=== PATIENT | female | born 1940 | race Caucasian/White ===

== ENCOUNTER 2023-03-12 13:06 | Outpatient (OUT) | payer MEDICARE, OTHER, SELFPAY ==
--- NOTE | 2023-03-12 13:36 | XR_ITS ---
The [address] [address] Patient Name: ANGY BETTS MRN: [id number] date: 1940 Sex: F Assigned Patient Location: LAB Current Patient Location: LAB Accession/Order Number: [id number] Exam Date: 03/12/2023 13:40 Report Date: 03/12/2023 13:57 At the request of: JEFFREY OBRIEN Procedure: XR chest 2V EXAM: XR chest 2V HISTORY: Acute pneumonia J18.9 COMPARISON: None. TECHNIQUE: PA and lateral views of the chest. FINDINGS: The cardiomediastinal silhouette is normal. Lingula airspace disease. There is no pneumothorax. No pleural effusion is noted. The osseous structures are intact. IMPRESSION: Lingula airspace disease. Electronically authenticated by: SUKHJINDER NEWBERRY Date: 03/12/2023 13:57
[2023-03-12 13:43] LABS: Basophils Percent Auto 0.5 % (0.2-2.0); Eosinophils Absolute Auto 0.2 10^3/uL (0.0-0.7); Eosinophils Percent Auto 4.3 % (0.9-7.0); Hematocrit 36.5 % (36.0-48.0); Hemoglobin 11.8 g/dL (12.0-16.0); Immature Granulocytes Abs Auto 0.03 10^3/uL (0.00-0.03); Immature Granulocytes Pct Auto 0.7 % (0.0-0.5); Lymphocytes Absolute Auto 1.3 10^3/uL (1.2-3.8); Lymphocytes Percent Auto 31.6 % (20.5-60.0); Mean Corpuscular HGB Conc 32.3 g/dL (29.9-35.2); Mean Corpuscular Hemoglobin 29.8 pg (26.7-34.0); Mean Corpuscular Volume 92.2 fL (81.0-99.0); Mean Platelet Volume 10.7 fL (9.5-13.5); Monocytes Absolute Auto 0.3 10^3/uL (0.3-0.8); Monocytes Percent Auto 7.2 % (1.7-12.0); Neutrophils Absolute Auto 2.3 10^3/uL (1.4-6.5); Neutrophils Percent Auto 55.7 % (43.0-75.0); Platelet Count 192 10^3/uL (150-450); Red Blood Count 3.96 10^6/uL (4.20-5.40); Red Cell Distribution Width 12.9 % (11.0-15.0); White Blood Count 4.2 10^3/uL (4.0-11.0)
[2023-03-12 14:02] LABS: Anion Gap 12.8; BUN Creatinine Ratio 14.4; Carbon Dioxide 28.8 mmol/L (21.0-32.0); Chloride 104 mmol/L (98-107); Estimated GFR (African America 50 (>=60); Estimated GFR (Non-African Ame 41 (>=60); Glucose 96 mg/dL (74-106); Potassium 4.6 mmol/L (3.5-5.1); Sodium 141 mmol/L (136-145)
[2023-03-13 03:07] LABS: Vitamin B12 194 pg/mL (232-1245)
== END 2023-03-12 13:07 | disposition home or self-care (01) ==
LOC: LAB 13:18
PROVIDERS: PCP Internal Medicine; Visit Provider Internal Medicine
DX: D64.9 Anemia, unspecified (principal); N18.31 Chronic kidney disease, stage 3a; J18.9 Pneumonia, unspecified organism
CPT/HCPCS: 36415; 71046; 80048; 82607; 82746; 85025

== ENCOUNTER 2023-05-28 10:18 | Outpatient (OUT) | payer MEDICARE, OTHER, SELFPAY ==
[2023-05-28 11:46] LABS: Anion Gap 9.5; Calcium 9.3 mg/dL (8.5-10.1); Carbon Dioxide 29.6 mmol/L (21.0-32.0); Chloride 100 mmol/L (98-107); Chol HDL Ratio 2.6; Cholesterol 167 mg/dL (<=200); Estimated GFR (African America 56 (>=60); Estimated GFR (Non-African Ame 46 (>=60); Glucose 92 mg/dL (74-106); HDL Cholesterol 65 mg/dL (40-60); Potassium 4.1 mmol/L (3.5-5.1); Sodium 135 mmol/L (136-145); Thyroid Stimulating Hormone 2.005 uIU/mL (0.358-3.740); Triglycerides 75 mg/dL (<=150)
== END 2023-05-28 10:19 | disposition home or self-care (01) ==
LOC: LAB 10:21
PROVIDERS: PCP Internal Medicine; Visit Provider Internal Medicine
DX: I10 Essential (primary) hypertension (principal); E78.1 Pure hyperglyceridemia; D64.9 Anemia, unspecified; R53.83 Other fatigue
CPT/HCPCS: 36415; 80048; 80061; 82607; 82728; 82746; 84443

== ENCOUNTER 2023-06-02 09:29 | Outpatient (OUT) | payer MEDICARE, OTHER, SELFPAY ==
[2023-06-02 10:09] LABS: Basophils Percent Auto 0.8 % (0.2-2.0); Eosinophils Absolute Auto 0.2 10^3/uL (0.0-0.7); Eosinophils Percent Auto 5.1 % (0.9-7.0); Hematocrit 35.4 % (36.0-48.0); Hemoglobin 11.3 g/dL (12.0-16.0); Immature Granulocytes Abs Auto 0.03 10^3/uL (0.00-0.03); Immature Granulocytes Pct Auto 0.8 % (0.0-0.5); Lymphocytes Absolute Auto 1.1 10^3/uL (1.2-3.8); Lymphocytes Percent Auto 31.4 % (20.5-60.0); Mean Corpuscular HGB Conc 31.9 g/dL (29.9-35.2); Mean Corpuscular Hemoglobin 30.3 pg (26.7-34.0); Mean Corpuscular Volume 94.9 fL (81.0-99.0); Mean Platelet Volume 10.7 fL (9.5-13.5); Monocytes Absolute Auto 0.3 10^3/uL (0.3-0.8); Monocytes Percent Auto 7.6 % (1.7-12.0); Neutrophils Absolute Auto 1.9 10^3/uL (1.4-6.5); Neutrophils Percent Auto 54.3 % (43.0-75.0); Platelet Count 188 10^3/uL (150-450); Red Blood Count 3.73 10^6/uL (4.20-5.40); Red Cell Distribution Width 13.5 % (11.0-15.0); White Blood Count 3.5 10^3/uL (4.0-11.0)
== END 2023-06-02 09:30 | disposition home or self-care (01) ==
LOC: LAB 09:33
PROVIDERS: PCP Internal Medicine; Visit Provider Internal Medicine
DX: D64.9 Anemia, unspecified (principal); R53.83 Other fatigue
CPT/HCPCS: 36415; 85025

== ENCOUNTER 2023-08-26 15:49 | Outpatient (REF) | payer MEDICARE, OTHER, SELFPAY ==
[2023-08-26 16:09] LABS: SARS-CoV-2 Ag NEGATIVE (NEGATIVE)
--- OUTSIDE RECORDS SUMMARY | 2023-08-27 10:05 | XMS_ITS | CCD ---
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 Name Role Phone Doni Rivera Unavailable DO Kyle Gottlieb Primary Care Provider DO Aamir Xavier Attending Provider [phone] DO Aamir Xavier Referring Provider Kyle Gottlieb Unavailable BULL, DR MURPHY Primary Care Unavailable BULL, DR MURPHY Attending Unavailable BULL, DR MURPHY Consulting Unavailable BULL, DR MURPHY Admitting Unavailable BULL, DR MURPHY Attending Unavailable BULL, DR MURPHY Consulting Unavailable BULL, DR MURPHY Primary Care Unavailable BULL, DR MUPRHY Admitting Unavailable KIARA, DR BUCKY Florez Consulting Unavailable BULL, DR MURPHY Admitting Unavailable BULL, DR MURPHY Attending Unavailable BULL, DR MURPHY Consulting Unavailable BULL, DR MURPHY Primary Care Unavailable ALDO, NANDO Consulting Unavailable BULL, DR MURPHY Attending Unavailable BULL, DR MURPHY Primary Care Unavailable BULL, DR MURPHY Admitting Unavailable HOY ., DR MATTHEWS Consulting Unavailable NADEREVikki, DR ANA MARIA Lambert Admitting Unavailable NADEREVikki, DR ANA MARIA Lambert Attending Unavailable BULL, DR MURPHY Primary Care Unavailable ZIEBER, DR BUCKY Florez Consulting Unavailable NADERER, DR ANA MARIA Lambert Consulting Unavailable KATKO, CARLOS Acosta Consulting Unavailable JAE, MOY Consulting Unavailable SISTER, MARGOT Consulting Unavailable HEGG, RAKESH Consulting Unavailable RASTEGAR, KELVIN Consulting Unavailable BULL, DR MURPHY Admitting Unavailable BULL, DR MURPHY Attending Unavailable BULL, DR MURPHY Consulting Unavailable BULL, DR MURPHY Primary Care Unavailable ALDO, NANDO Consulting Unavailable DO Kyle Gottlieb Primary Care Provider DO Aamir Xavier Attending Provider [phone] Kyle Gottlieb Primary Care Unavailable Aamir Xavier Attending Unavailable Aaimr Xavier Admitting Unavailable SHIVAM METZ Attending Unavailable Tonya Harrison Unavailable Allergies Allergy Classification Reported Allergen(s) Allergy Type Date of Onset Reaction(s) Facility (20 sources) Amoxicillin Drug Allergy 11-29-19 Unknown, [facility] (20 sources) Clarithromycin Drug Allergy 11-29-19 Unknown, [facility] (20 sources) Naproxen Drug Allergy 11-29-19 Unknown, Difficulty Breathing [facility] (20 sources) Sulfamethoxazole / Trimethoprim Drug Allergy Unknown [email or web address] Other (20 sources) LEVOFLAXIN Propensity to adverse reactions Unknown [email or web address] Other (6 sources) Sulfamethoxazole / Trimethoprim; Translations: [Bactrim] Drug Allergy 11-19-19 14 Unknown [facility] (4 sources) levoFLOXacin; Translations: [Levofloxacin] Drug Allergy 11-29-19 [facility] (3 sources) Sulfamethoxazole; Translations: [sulfamethoxazole] Drug Allergy 11-29-19 [facility] (3 sources) Trimethoprim; Translations: [trimethoprim] Drug Allergy 11-29-19 [facility] (1 source) Amoxicillin Drug Allergy [facility] (1 source) Clarithromycin Drug Allergy [facility] (1 source) Naproxen Drug Allergy 11-19-19 14 [facility] (12 sources) Baclofen Drug Allergy Unknown [employer] Other (12 sources) levoFLOXacin Drug Allergy Unknown [email or web address] Other (12 sources) Penicillin Drug Allergy Unknown [email or web address] Other (12 sources) predniSONE Drug Allergy Unknown [employer] Other (12 sources) Biaxin XL *MACROLIDES* Propensity to adverse reactions Unknown [employer] Other (2 sources) Allergies Reconciled Propensity to adverse reactions Unknown [email or web address] Other (2 sources) patient allergy list reviewed by nurse or physicia Propensity to adverse reactions 09-10-19 16 Comment:Done [facility] Other (12 sources) corticosteroid and/or corticosteroid derivative (FN) Drug allergy Unknown [facility] Other (12 sources) Substance with sulfonamide structure and antibacterial mechanism of action (substance) Drug allergy Unknown [facility] Other (12 sources) Substance with penicillin structure and antibacterial mechanism of action (substance) Drug allergy Unknown [facility] Other (1 source) Amoxicillin Drug Allergy 11-29-19 [facility] (1 source) Clarithromycin Drug Allergy 11-29-19 [facility] (1 source) Naproxen Drug Allergy 11-29-19 [facility] Medications Current Medications Medication Drug Class(es) Dates Sig (Normalized) Sig (Original) benazepril hydrochloride 5 mg oral tablet (20 sources) Angiotensin Converting Enzyme Inhibitor Start: 11-28-2021 take 5 mg by mouth once daily Benazepril Active 5 MG PO Daily November 28, 2021 12:00am Benazepril HCl A ctive bisoprolol fumarate 2.5 mg / hydroCHLOROthiazide 6.25 mg oral tablet (7 sources) Thiazide Diuretic, beta-Adrenergic Daniel take 1 tablet by mouth every twenty-four hours Bisoprolol-hydroCHLOROthiazide 2.5-6.25 MG 1 tablet Orally Once a day Active calcium carbonate 1500 mg / cholecalciferol 200 unt oral tablet (20 sources) Vitamin D take 1 tablet by mouth once daily at mealtime take 1 tablet by shil[place] th every twenty-four hours Calcium + D 600-200 MG-UNIT 1 tablet wit h food Orally Once a day for 30 day(s) Active cefdinir 300 mg oral capsule (20 sources) Cephalosporin Antibacterial Start: 12-14-2022 Cefdinir 300 MG as directed Orally bid Dec, Active cetirizine hydrochloride 10 mg oral tablet (20 sources) Histamine-1 Receptor Antagonist Start: 11-28-2021 take 1 tablet by mouth once daily Cetirizine (Zyrtec) 10 mg tablet Active 10 MG PO Daily November 28, 2021 12:00am dicyclomine hydrochloride 20 mg oral tablet (20 sources) Anticholinergic take 1 tablet by mouth every six hours Dicyclomine HCl 20 MG 1 tablet Orally QID Active estrogens, conjugated (senior care) 0.625 mg/ml vaginal cream (20 sources) Estrogen Start: 11-28-2021 Conjugated Estrogens (Premarin) 0.625 mg/gram cream Active 1 APPLIC TOPICAL As Directed November 28, 2021 12:00am Premarin 0.625 M G/GM as directed Vaginal Active Premarin 0.625 M G/GM as directed Vaginal Active fenofibrate 160 mg oral tablet (20 sources) Peroxisome Proliferator Receptor alpha Agonist Start: 11-28-2021 take 160 mg by mouth once daily Fenofibrate Active 160 MG PO Daily November 28, 2021 12:00am Fish Oils (20 sources) take 1 capsule by mouth three ti mes daily take 1 capsule by mouth three ti mes daily Fish Oil 1200 MG 1 capsule Orally Three times a day for 30 day(s) Active folic acid 1 mg oral tablet (20 sources) Start: 01-09-2023 take 1 tablet by mouth every twenty-four hours Folic Acid 1 MG 1 tablet Orally Once a day January, Active furosemide 40 mg oral tablet (1 source) Loop Diuretic Start: 12-17-2022 take 1 tablet by mouth every twenty-four hours Furosemide 40 MG 1 tablet Orally Once a day for 7 days Dec, Active gabapentin 300 mg oral capsule (20 sources) Anti-epileptic Agent Start: 05-27-2023 take 1 capsule by mouth every twenty-four hours Gabapentin 300 MG 1 capsule Orally Once a day for 90 days May, Active Start: 11-28-2021 take 1 capsule by [facility] once daily at bedtime Gabapentin (Neurontin) 300 mg Capsule Active 300 MG PO Daily at bedtime November 28, 2021 12:00am take 1 capsule by [facility] every eight hours Neurontin 300 MG 1 capsule Orally Three times a day Active hydrocortisone acetate 25 mg rectal suppository (20 sources) Corticosteroid Start: 11-28-2021 Hydrocortisone Acetate Active 25 MG OR Daily November 28, 2021 12:00am Proctozone-HC 2. 5 % APPLY TOPICALLY 2 TO 4 TIMES DAILY for 90 Active Anucort-HC 25 MG 1 suppository Rectal Active Proctosol HC 2.5 % 1 application to affected area Rectal Twice a day for 30 days Active Anucort-HC Activ e Hydrocortisone (Proctosol Hc) 2.5 % Cream With Applicator (2 sources) Start: 11-28-2021 Hydrocortisone (Proctosol Hc) 2.5 % Cream With Applicator Active 1 EACH OR Daily November 28, 2021 12:00am Goltry 1-Sqe-Qaj-Fish Oil (Fish Oil) 1,200 (144-216) mg Capsule (2 sources) Start: 11-28-2021 take 2 capsules by mouth at bedtime Goltry 6-Fph-Uki-Fish Oil (Fish Oil) 1,200 (144-216) mg Capsule Active 2 CAP PO Bedtime November 28, 2021 12:00am OXcarbazepine 300 mg oral tablet (20 sources) Anti-epilept ic Agent Start: 11-17-2022 take 1 tablet by mouth once at bedtime OXcarbazepine 300 MG 1 tablet Orally q HS Nov, Active Start: 11-28-2021 take 1 tablet by [place] th at bedtime Oxcarbazepine (Trileptal) 300 mg Tablet Active 300 MG PO Bedtime November 28, 2021 12:00am pantoprazole 40 mg delayed release oral tablet (20 sources) Proton Pump Inhibitor Start: 12-28-2020 Pantoprazole Sodium 40 MG 1 tablet TWICE A DAY Orally TWICE A DAY for 90 days Jun, Active Stool Softener (20 sources) Stool Softener A ctive tiZANidine 4 mg oral tablet (20 sources) Central alpha-2 Adrenergic Agonist Start: 11-28-2021 Tizanidine (Zanaflex ) 4 mg Tablet Active 2 MG PO Bedtime November 28, 2021 12:00am take 1 tablet by mouth every eig ht hours Zanaflex 4 MG 1 tablet as needed Orally every 8 hrs Active Completed/Discontinued Medications Medication Drug Class(es) Dates Sig (Normalized) Sig (Original) B-12 - up to 1000 mcg (20 sources) Start: 08-13-2023 B-12 - up to 1000 mcg Aug, 1000 mcg Start: 07-09-2023 B-12 - up to 1 000 mcg Jul, 1000 mcg Start: 06-08-2023 B-12 - up to 1 000 mcg Jun, 1000 mcg Start: 05-07-2023 B-12 - up to 1 000 mcg Apr, 1000 mcg Start: 04-06-2023 B-12 - up to 1 000 mcg Mar, 1000 mcg Start: 03-30-2023 B-12 - up to 1 000 mcg Mar, 1000 mcg Start: 03-23-2023 B-12 - up to 1 000 mcg Mar, 1000 mcg Start: 03-23-2023 Start: 03-16-2023 Start: 03-16-2023 B-12 - up to 1 000 mcg Mar, 1000 mcg Problems Active Problems Problem Classification Problem Date Documented Da te Episodic/Chronic Abdominal pain (20 sources) Abdominal pain; Translations: [Unspecified abdominal pain] Onset: 4 Resolved: 2 Episodic Acute and unspecified renal failure (1 source) Acute kidney failure, unspecified; Translations: [ACUTE KIDNEY FAILURE UNSPECIFIED] Onset: 3 Episodic Acute bronchitis (4 sources) Acute bronchitis; Translations: [Acute bronchitis due to other specified organisms] Onset: 4 Episodic Anxiety disorders (2 sources) Generalized anxiety disorder; Translations: [Generalized anxiety disorder] Chronic Cardiac dysrhythmias (2 sources) Palpitations; Translations: [Bradycardia, unspecified] Episodic Chronic kidney disease (20 sources) Chronic kidney disease stage 3A ; Translations: [Stage 3a chronic kidney disease] Chronic Chronic obstructive pulmonary disease and bronchiectasis (13 sources) Mucopurulent chronic bronchitis; Translations: [Mucopurulent chronic bronchitis] Chronic Deficiency and other anemia (10 sources) Anemia, unspecified; Translations: [ANEMIA UNSPECIFIED] Onset: 3 Episodic Deficiency and other anemia (1 source) Iron deficiency anemia, unspecified; Translations: [IRON DEFICIENCY ANEMIA UNSPECIFIED] Onset: 3 Episodic Deficiency and other anemia (1 source) Dietary folate deficiency anemia Episodic Deficiency and other anemia (20 sources) Pernicious anemia; Translations: [Vitamin B12 deficiency anemia due to intrinsic factor deficiency] Episodic Deficiency and other anemia (10 sources) Vitamin B12 deficiency anemia due to intrinsic factor deficiency; Translations: [Pernicious anemia] Episodic Disorders of lipid metabolism (20 sources) Hypertriglyceridemia; Translations: [Pure hyperglyceridemia] Onset: 8 Chronic Diverticulosis and diverticulitis (20 sources) Diverticular disease of colon; Translations: [Diverticulosis of intestine, part unspecified, without perforation or abscess without bleeding] Chronic Esophageal disorders (20 sources) Gastroesophageal reflux disease; Translations: [Gastro-esophageal reflux disease without esophagitis] Onset: 2 Resolved: 2 Chronic Essential hypertension (20 sources) Essential hypertension; Translations: [Essential (primary) hypertension] Onset: 2 Chronic Fever of unknown origin (1 source) Fever, unspecified; Translations: [FEVER UNSPECIFIED] Onset: 3 Episodic Fluid and electrolyte disorders (20 sources) Hypokalemia; Translations: [Hypokalemia] Onset: 3 Episodic Hemorrhoids (20 sources) Hemorrhoids; Translations: [Unspecified hemorrhoids] Episodic Hypertension with complications and secondary hypertension (20 sources) Chronic kidney disease due to hypertension; Translations: [Hypertensive chronic kidney disease with stage 1 through stage 4 chronic kidney disease, or unspecified chronic kidney disease] Chronic Immunizations and screening for infectious disease (4 sources) Contact with and (suspected) exposure to other viral communicable diseases; Translations: [Vaccination given] Episodic Intestinal infection (1 source) Viral intestinal infection, unspecified; Translations: [VIRAL INTESTINAL INFECTION UNSPEC] Onset: 3 Episodic Malaise and fatigue (20 sources) Malaise; Translations: [Other malaise] Onset: 8 Episodic Mood disorders (20 sources) Mild recurrent major depression; Translations: [Major depressive disorder, recurrent, mild] Onset: 9 Chronic Multiple sclerosis (20 sources) Multiple sclerosis; Translations: [Multiple sclerosis] Onset: 3 Chronic Nausea and vomiting (20 sources) Nausea and vomiting; Translations: [Nausea with vomiting, unspecified] Onset: 4 Resolved: 2 Episodic Nutritional deficiencies (1 source) Moderate protein-calorie malnutrition; Translations: [MODERATE PROTEIN-CALORIE MLNUTRIT] Onset: 3 Chronic Nutritional deficiencies (1 source) Deficiency of other specified B group vitamins Episodic Osteoarthritis (2 sources) Osteoarthritis; Translations: [Polyosteoarthritis, unspecified] Chronic Other aftercare (1 source) Other correction (current) drug therapy; Translations: [OTH BIOINFORMATICS COMPUTER SCIENTIST CURRENT DRUG THERAPY] Onset: 3 Episodic Other aftercare (2 sources) Long-term current use of drug therapy; Translations: [Other tank terminal gauger (current) drug therapy] Episodic Other and unspecified benign neoplasm (2 sources) Benign neoplasm of colon; Translations: [Benign neoplasm of colon] Episodic Other and unspecified benign neoplasm (2 sources) Polyp of colon; Translations: [Polyp of colon] Episodic Other bone disease and musculoskeletal deformities (2 sources) Disorder of bone; Translations: [Disorder of bone, unspecified] Episodic Other congenital anomalies (2 sources) Congenital spondylolysis of lumbosacral region; Translations: [Congenital spondylolysis, lumbosacral region] Onset: 6 Chronic Other connective tissue disease (20 sources) Fibromyalgia; Translations: [Fibromyalgia] Episodic Other connective tissue disease (2 sources) Fibromyalgia Episodic Other diseases of kidney and ureters (2 sources) Disorder of kidney and/or ureter; Translations: [Other specified disorders of kidney and ureter] Chronic Other diseases of veins and lymphatics (13 sources) Peripheral venous insufficiency; Translations: [Venous insufficiency (chronic) (peripheral)] Onset: 4 Episodic Other diseases of veins and lymphatics (2 sources) Venous insufficiency (chronic) (peripheral); Translations: [Venous insufficiency (chronic) (peripheral)] Episodic Other ear and sense organ disorders (2 sources) Infective otitis externa; Translations: [Other infective otitis externa, right ear] Episodic Other gastrointestinal disorders (20 sources) Irritable bowel syndrome; Translations: [Irritable bowel syndrome without diarrhea] Chronic Other gastrointestinal disorders (2 sources) Irritable bowel syndrome without diarrhea Chronic Other gastrointestinal disorders (2 sources) Irritable bowel syndrome with diarrhea; Translations: [Irritable bowel syndrome with diarrhea] Chronic Other gastrointestinal disorders (20 sources) Diarrhea; Translations: [Diarrhea, unspecified] Onset: 7 Episodic Other gastrointestinal disorders (3 sources) Diarrhea, unspecified; Translations: [Diarrhea] Onset: 2 Resolved: 2 Episodic Other injuries and conditions due to external causes (2 sources) History of fall; Translations: [History of falling] Episodic Other lower respiratory disease (1 source) Acute respiratory distress; Translations: [ACUTE RESPIRATORY DISTRESS] Onset: 3 Episodic Other lower respiratory disease (1 source) Other nonspecific abnormal finding of lung field Episodic Other non-traumatic joint disorders (2 sources) Pain in right hip joint; Translations: [Pain in right hip] Episodic Other nutritional; endocrine; and metabolic disorders (20 sources) Loss of appetite; Translations: [Anorexia] Onset: 5 Episodic Other nutritional; endocrine; and metabolic disorders (2 sources) Anorexia Onset: 2 Resolved: 2 Episodic Other nutritional; endocrine; and metabolic disorders (1 source) Body mass index (BMI) 25.0-25.9, adult; Translations: [BODY MASS INDEX BMI 25.0-25.9 ADULT] Onset: 3 Episodic Other nutritional; endocrine; and metabolic disorders (2 sources) Overweight; Translations: [Overweight] Episodic Other upper respiratory disease (20 sources) Seasonal allergic rhinitis; Translations: [Other seasonal allergic rhinitis] Onset: 7 Chronic Other upper respiratory disease (2 sources) Other seasonal allergic rhinitis; Translations: [Seasonal allergic rhinitis] Chronic Other upper respiratory infections (6 sources) Acute sinusitis; Translations: [Acute sinusitis, unspecified] Onset: 4 Episodic Pneumonia (except that caused by tuberculosis or sexually transmitted disease) (5 sources) Pneumonia, unspecified organism; Translations: [PNEUMONIA UNSPECIFIED ORGANISM] Onset: 3 Episodic Residual codes; unclassified (20 sources) Early satiety; Translations: [Early satiety] Episodic Residual codes; unclassified (2 sources) Early satiety Onset: 2 Resolved: 2 Episodic Residual codes; unclassified (2 sources) Generalized edema Episodic Residual codes; unclassified (2 sources) Requires influenza virus vaccination; Translations: [Need for prophylactic vaccination and inoculation, Influenza] Episodic Residual codes; unclassified (2 sources) Postmenopausal state; Translations: [Asymptomatic menopausal state] Episodic Spondylosis; intervertebral disc disorders; other back problems (20 sources) Lumbar spondylosis; Translations: [Spondylosis without myelopathy or radiculopathy, lumbar region] Onset: 2 Chronic Spondylosis; intervertebral disc disorders; other back problems (2 sources) Low back pain; Translations: [Low back pain, unspecified] Episodic Substance-related disorders (13 sources) Tobacco user; Translations: [Nicotine dependence, cigarettes, in remission] Chronic Superficial injury; contusion (4 sources) Contusion of hip; Translations: [Contusion of left hip, initial encounter] Resolved: 1 Episodic Unclassified (3 sources) LOW BACK PAIN, UNSPECIFIED; Translations: [LOW BACK PAIN, UNSPECIFIED] Onset: 2 Unclassified (2 sources) Long-term current use of drug therapy; Translations: [Long-term (current) use of other medications] Onset: 9 Unclassified (1 source) Encounter for screening mammogram for malignant neoplasm of breast; Translations: [Encounter for screening mammogram for malignant neoplasm of breast] Onset: 3 Urinary tract infections (20 sources) Cystitis; Translations: [Cystitis, unspecified without hematuria] Episodic Past or Other Problems Problem Classification Problem Date Documented Da te Episodic/Chronic Abdominal hernia (2 sources) Diaphragmatic hernia; Translations: [Diaphragmatic hernia without mention of obstruction or gangrene] Onset: 09-14-2014 Episodic Acute posthemorrhagic anemia (2 sources) Acute posthemorrhagic anemia; Translations: [Acute posthemorrhagic anemia] Resolved: 01-02-2020 Episodic Bacterial infection; unspecified site (2 sources) Bacterial infectious disease; Translations: [Bacterial infection, unspecified, in conditions classified elsewhere and of unspecified site] Onset: 11-30-2015 Episodic Chronic kidney disease (8 sources) Chronic kidney disease; Translations: [CHRONIC KIDNEY DISEASE STAGE 3A] Onset: 02-04-2023 Conditions associated with dizziness or vertigo (2 sources) Dizziness and giddiness; Translations: [Dizziness and giddiness] Onset: 07-17-2014 Episodic Esophageal disorders (6 sources) Esophageal disorders; Translations: [Gastro-esophageal reflux disease with esophagitis, without bleeding] Gastritis and duodenitis (2 sources) Acute gastritis; Translations: [Acute gastritis without mention of hemorrhage] Onset: 09-14-2014 Episodic Gastrointestinal hemorrhage (2 sources) Hemorrhage of rectum and anus; Translations: [Hemorrhage of rectum and anus] Onset: 09-13-2018 Episodic Genitourinary symptoms and ill-defined conditions (2 sources) Dysuria; Translations: [Dysuria] Onset: 01-11-2019 Episodic Inflammation; infection of eye (except that caused by tuberculosis or sexually transmitteddisease) (2 sources) Blepharitis; Translations: [Blepharitis, unspecified] Onset: 10-12-2015 Episodic Noninfectious gastroenteritis (2 sources) Non-infective enteritis and colitis; Translations: [Noninfective gastroenteritis and colitis, unspecified] Onset: 11-18-2013 Episodic Nonspecific chest pain (2 sources) Chest pain; Translations: [Chest pain, unspecified] Onset: 03-08-2015 Episodic Other connective tissue disease (2 sources) Pain in left lower limb; Translations: [Pain in left leg] Onset: 03-31-2016 Episodic Other gastrointestinal disorders (2 sources) 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; Translations: [Irritable bowel syndrome with constipation] Resolved: 11-30-2020 Chronic Other lower respiratory disease (2 sources) Dyspnea; Translations: [Dyspnea, unspecified] Onset: 03-08-2015 Episodic Other screening for suspected conditions (not mental disorders or infectious disease) (5 sources) Other specified abnormal findings of blood chemistry; Translations: [Imaging of abdomen abnormal] Onset: 03-19-2019 Resolved: 11-30-2020 Episodic Other skin disorders (2 sources) Generalized hyperhidrosis; Translations: [Generalized hyperhidrosis] Onset: 03-22-2018 Episodic Residual codes; unclassified (4 sources) Asymptomatic menopausal state; Translations: [ASYMPTOMATIC MENOPAUSAL STATE] Onset: 08-25-2022 Episodic Residual codes; unclassified (2 sources) Symptom: generalized; Translations: [Other general symptoms and signs] Resolved: 01-02-2020 Episodic Screening and history of mental health and substance abuse codes (3 sources) Personal history of nicotine dependence; Translations: [History of tobacco use] Onset: 10-23-2016 Episodic Sprains and strains (2 sources) Lumbar sprain; Translations: [Sprain of other parts of lumbar spine and pelvis, initial encounter] Onset: 12-27-2018 Episodic Unclassified (1 source) LOW BACK PAIN, UNSPECIFIED; Translations: [LOW BACK PAIN, UNSPECIFIED] Onset: 04-28-2022 Unclassified (2 sources) Acute candidiasis of vulva and vagina; Translations: [Acute candidiasis of vulva and vagina] Resolved: 11-13-2021 Viral infection (2 sources) Viral disease; Translations: [Unspecified viral infection, in conditions classified elsewhere and of unspecified site] Onset: 10-23-2016 Episodic Results Test Name Value Interpretation Reference Range Facility MM screening mammo BI w/CADo n 05-13-2023 MM screening mammo BI w/CAD [facility] [place] [address] [place] [address] Mammography Report Signed Patient: Gina Pierre MR#: [id number] : 1940 Acct:[id number] Age/Sex: 82 / F ADM Date: 05/13/23 Loc: [place] Room: Type: [facility] CLI Attending Dr: Aamir Xavier DO Copies to: Kyle Gottlieb,DO Aamir Xavier DO Ordering Provider: Aamir Xavier DO Date of Service: 05/13/23 MM/MM screening mammo BI w/CAD: SCREENING CLINICAL DATA: Screening for malignancy. BILATERAL SCREENING MAMMOGRAMS - FULL FIELD DIGITAL WITH TOMOSYNTHESIS AND CAD Tomosynthesis craniocaudal and mediolateral oblique views of both breasts were obtained using low- dose digital technique. Comparison is made to prior studies from April 08, 2019 through April 14, 2022. This examination was reviewed with the aid of CAD. There are scattered fibroglandular densities. Benign and vascular calcifications are seen. There are intramammary lymph nodes. There are no new suspicious masses, typically malignant calcifications or architectural distortion. There has been no significant interval change. MM/MM screening mammo BI w/CAD IMPRESSION: NO MAMMOGRAPHIC EVIDENCE OF MALIGNANCY. ROUTINE FOLLOW-UP IS RECOMMENDED IN ONE YEAR. RESULT CODE: 2 Benign Findings(s) DENSITY CODE: 2 (approximately 25-50% glandular) FOLLOW UP: 1YR The false-negative rate of mammography is approximately 10-percent. Management of a palpable abnormality must be based on clinical grounds. Patient was entered into a reminder system with a target due date for the next mammogram. Impression dictated by: Gina Garrett M.D.05/13/2023 3:35 PM Dictation Location: [facility] Transcribed By: [facility] 05/13/23 1535 Dictated By: Gina Garrett MD 05/13/23 1525 Signed By: 05/13/23 1535 Normal [facility] CBC AUTO DIFFon 02-03-2023 BASO # 0.0 103/ul Normal 0.0-0.1 [facility] Comment on above: Performed By: #### L IVER, BMP, LIPA, EDSON #### [facility] [address] [place] [address] Dr. Julia Velasquez Basophils/100 WBC (Bld) 0.4 % Normal 0.2-2.0 [facility] Comment on above: Performed By: #### L IVER, BMP, LIPA, EDSON #### [facility] [address] [place] [address] Dr. Julia Velasquez EO # 0.3 103/ul Normal 0.0-0.7 [facility] Comment on above: Performed By: #### L IVER, BMP, LIPA, EDSON #### [facility] [address] [place] [address] Dr. Julia Velasquez Eosinophils/100 WBC (Bld) 5.5 % Normal 0.9-7.0 [facility] Comment on above: Performed By: #### L IVER, BMP, LIPA, EDSON #### [facility] [address] [place] [address] Dr. Julia Velasquez Erythrocyte distribution width (RBC) [Ratio] 14.1 % Normal 11.0-15.0 [facility] Comment on above: Performed By: #### L IVER, BMP, LIPA, EDSON #### [facility] [address] [place] [address] Dr. Julia Velasquez Hematocrit (Bld) [Volume fraction] 36.4 % Normal 36.0-48.0 [facility] Comment on above: Performed By: #### L IVER, BMP, LIPA, EDSON #### [facility] [address] [place] [address] Dr. Julia Velasquez Hemoglobin (Bld) [Mass/Vol] 11.4 g/dL Critically low 12.0-16.0 [facility] Comment on above: Performed By: #### L IVER, BMP, LIPA, EDSON #### [facility] [address] [place] [address] Dr. Julia Velasquez IG # 0.02 10e3/ul Normal 0.00-0.03 [facility] Comment on above: Performed By: #### L IVER, BMP, LIPA, EDSON #### [facility] [address] [place] [address] Dr. Julia Velasquez IG % 0.4 % Normal 0.0-0.5 [facility] Comment on above: Performed By: #### L IVER, BMP, LIPA, EDSON #### [facility] [address] [place] [address] Dr. Julia Velasquez LYMPH # 1.4 103/ul Normal 1.2-3.8 [facility] Comment on above: Performed By: #### L IVER, BMP, LIPA, EDSON #### [facility] [address] [place] [address] Dr. Julia Velasquez Lymphocytes/100 WBC (Bld) 28.4 % Normal 20.5-60.0 [facility] Comment on above: Performed By: #### L IVER, BMP, LIPA, EDSON #### [facility] [address] [place] [address] Dr. Julia Velasquez MANUAL DIFF REQ NO Normal [facility] Comment on above: Performed By: #### L IVER, BMP, LIPA, EDSON #### [facility] [address] [place] [address] Dr. Julia Velasquez MCH (RBC) [Entitic mass] 30.0 pg Normal 26.7-34.0 [facility] Comment on above: Performed By: #### L IVER, BMP, LIPA, EDSON #### [facility] [address] [place] [address] Dr. Julia Velasquez MCHC (RBC) [Mass/Vol] 31.3 g/dL Normal 29.9-35.2 [facility] Comment on above: Performed By: #### L IVER, BMP, LIPA, EDSON #### [facility] [address] [place] [address] Dr. Julia Velasquez MCV (RBC) [Entitic vol] 95.8 fL Normal 81.0-99.0 [facility] Comment on above: Performed By: #### L IVER, BMP, LIPA, EDSON #### [facility] [address] [place] [address] Dr. Julia Velasquez MONO # 0.4 103/ul Normal 0.3-0.8 [facility] Comment on above: Performed By: #### L IVER, BMP, LIPA, EDSON #### [facility] [address] [place] [address] Dr. Julia Velasquez Monocytes/100 WBC (Bld) 7.8 % Normal 1.7-12.0 [facility] Comment on above: Performed By: #### L IVER, BMP, LIPA, EDSON #### [facility] [address] [place] [address] Dr. Julia Velasquez NEUT # 2.8 103/ul Normal 1.4-6.5 [facility] Comment on above: Performed By: #### L IVER, BMP, LIPA, EDSON #### [facility] [address] [place] [address] Dr. Julia Velasquez Neutrophils/100 WBC (Bld) 57.5 % Normal 43.0-75.0 [facility] Comment on above: Performed By: #### L IVER, BMP, LIPA, EDSON #### [facility] [address] [place] [address] Dr. Julia Velasquez Platelet mean volume (Bld) [Entitic vol] 10.6 fL Normal 9.5-13.5 [facility] Comment on above: Performed By: #### L IVER, BMP, LIPA, EDSON #### [facility] [address] [place] [address] Dr. Julia Velasquez PLT 212 103/ul Normal 150-450 [facility] Comment on above: Performed By: #### L IVER, BMP, LIPA, EDSON #### [facility] [address] [place] [address] Dr. Julia Velasquez RBC 3.80 106/ul Critically low 4.20-5.40 [facility] Comment on above: Performed By: #### L IVER, BMP, LIPA, EDSON #### [facility] [address] [place] [address] Dr. Julia Velasquez WBC 4.9 103/ul Normal 4.0-11.0 [facility] Comment on above: Performed By: #### L IVER, BMP, LIPA, EDSON #### [facility] [address] [place] [address] Dr. Julia Velasquez FERRITINon 02-03-2023 Ferritin [Mass/Vol] 63.0 ng/mL Normal 8.0-252.0 [facility] Comment on above: Performed By: #### L IVER, BMP, LIPA, EDSON #### [facility] [address] [place] [address] Dr. Julia Velasquez IRON AND TIBCon 02-03-2023 % SATURATION 25.5 % Normal [facility] Comment on above: Performed By: #### L IVER, BMP, LIPA, EDSON #### [facility] [address] [place] [address] Dr. Julia Velasquez Iron [Mass/Vol] 100.0 ug/dL Normal 50.0-170.0 [facility] Comment on above: Performed By: #### L IVER, BMP, LIPA, EDSON #### [facility] [address] [place] [address] Dr. Julia Velasquez TIBC DIRECT 392.0 ug/dL Normal 250.0-450.0 [facility] Comment on above: Performed By: #### L IVER, BMP, LIPA, EDSON #### [facility] [address] [place] [address] Dr. Julia Velasquez PROF CHEM 8 (BAS METB)on Anion gap [Moles/Vol] 13.0 mmol/L Normal [facility] Comment on above: Performed By: #### B MP #### [facility] [address] [place] [address] Dr. Julia Velasquez Calcium [Mass/Vol] 8.9 mg/dL Normal 8.5-10.[address] [facility] Comment on above: Performed By: #### B MP #### [facility] [address] [place] [address] Dr. Julia Velasquez Chloride [Moles/Vol] 106 mmol/L Normal 98-107 [facility] Comment on above: Performed By: #### B MP #### [facility] [address] [address] [address] Julia Velasquez CO2 [Moles/Vol] 27.7 mmol/L Normal 21.0-32.0 [facility] Comment on above: Performed By: #### B MP #### [facility] [address] [address] [address] Julia Velasquez Creatinine [Mass/Vol] 1.24 mg/dL Critically high 0.55-1.02 [facility] Comment on above: Performed By: #### B MP #### [facility] [address] [address] [address] Julia Velasquez EGFR-AF GIBRALTARIAN 50 mL/min/1.73m2 Critically low >=60 [facility] Comment on above: Performed By: #### B MP #### [facility] [address] [address] [address] Julia Velasquez EGFR-NON AF GIBRALTARIAN 42 mL/min/1.73m2 Critically low >=60 [facility] Comment on above: Performed By: #### B MP #### [facility] [address] [address] [address] Julia Velasquez Glucose [Mass/Vol] 99 mg/dL Normal 74-[address] [facility] Comment on above: Performed By: #### B MP #### [facility] [address] [address] [address] Julia Velasquez Potassium [Moles/Vol] 3.7 mmol/L Normal 3.5-5.1 [facility] Comment on above: Performed By: #### B MP #### [facility] [address] [address] [address] Julia Velasquez Sodium [Moles/Vol] 143 mmol/L Normal 136-145 [facility] Comment on above: Performed By: #### B MP #### [facility] [address] [address] [address] Julia Velasquez Urea nitrogen [Mass/Vol] 12.0 mg/dL Normal 7.0-18.0 [facility] Comment on above: Performed By: #### B MP #### [facility] [address] [place] [address] Dr. Julia Velasquez Urea nitrogen/Creatinine [Mass ratio] 9.7 mg/mg Normal [facility] Comment on above: Performed By: #### B MP #### [facility] [address] [place] [address] Dr. Julia Velasquez UA RANDOM W/MICROSCOPICon BACTERIA TRACE Abnormal NONE SEEN [facility] Comment on above: Performed By: #### L IVER, BMP, LIPA, EDSON #### [facility] [address] [place] [address] Dr. uJlia Velasquez Bilirubin Ql (U) Negative Normal NEGATIVE [facility] Comment on above: Performed By: #### L IVER, BMP, LIPA, EDSON #### [facility] [address] [place] [address] Dr. Julia Velasquez CAST NONE SEEN Normal NONE SEEN [facility] Comment on above: Performed By: #### L IVER, BMP, LIPA, EDSON #### [facility] [address] [place] [address] Dr. Julia Velasquez Clarity (U) CLEAR Normal CLEAR [facility] Comment on above: Performed By: #### L IVER, BMP, LIPA, EDSON #### [facility] [address] [place] [address] Dr. Julia Velasquez Color (U) LT. YELLOW Normal YELLOW [facility] Comment on above: Performed By: #### L IVER, BMP, LIPA, EDSON #### [facility] [address] [place] [address] Dr. Julia Velasquez Crystals LM Nom (Urine sed) NONE SEEN Normal NONE SEEN [facility] Comment on above: Performed By: #### L IVER, BMP, LIPA, EDSON #### [facility] [address] [place] [address] Dr. Julia Velasquez Epithelial cells LM Ql (Urine sed) MODERATE Abnormal NONE SEEN /RARE [facility] Comment on above: Performed By: #### L IVER, BMP, LIPA, EDSON #### [facility] [address] [address] [address] Julia Velasquez Glucose Ql (U) Negative Normal NEGATIVE [facility] Comment on above: Performed By: #### L IVER, BMP, LIPA, EDSON #### [facility] [address] [address] [address] Julia Velasquez Hemoglobin Ql (U) Negative Normal NEGATIVE [facility] Comment on above: Performed By: #### L IVER, BMP, LIPA, EDSON #### [facility] [address] [address] [address] Julia Velasquez Ketones Ql (U) Negative Normal NEGATIVE [facility] Comment on above: Performed By: #### L IVER, BMP, LIPA, EDSON #### [facility] [address] [address] [address] Julia Velasquez LEUKOCYTES Negative Normal NEGATIVE [facility] Comment on above: Performed By: #### L IVER, BMP, LIPA, EDSON #### [facility] [address] [address] [address] Julia Velasquez MUCOUS NONE SEEN Normal NONE SEEN [facility] Comment on above: Performed By: #### L IVER, BMP, LIPA, EDSON #### [facility] [address] [address] [address] Julia Velasquez Nitrite Ql (U) Negative Normal NEGATIVE [facility] Comment on above: Performed By: #### L IVER, BMP, LIPA, EDSON #### [facility] [address] [address] [address] Julia Velasquez pH (U) 7.5 [pH] Normal 5-9 [facility] Comment on above: Performed By: #### L IVER, BMP, LIPA, EDSON #### [facility] [address] [address] [address] Julia Velasquez RBC 0-2 Normal 0-2 [facility] Comment on above: Performed By: #### L IVER, BMP, LIPA, EDSON #### [facility] [address] [place] [address] Dr. Julia Velasquez SPEC GRAVITY 1.010 Normal 1.005-<=1.025 [facility] Comment on above: Performed By: #### L IVER, BMP, LIPA, EDSON #### [facility] [address] [place] [address] Dr. Julia Velasquez UA PROTEIN Negative Normal NEGATIVE/ TRACE [facility] Comment on above: Performed By: #### L IVER, BMP, LIPA, EDSON #### [facility] [address] [place] [address] Dr. Julia Velasquez Urobilinogen Qn (U) 2.0 {Avery'U}/dL Abnormal 0.2 - 1. 0 [facility] Comment on above: Performed By: #### L IVER, BMP, LIPA, EDSON #### [facility] [address] [place] [address] Dr. Julia Velasquez WBC NONE SEEN Normal NONE SEEN [facility] Comment on above: Performed By: #### L IVER, BMP, LIPA, EDSON #### [facility] [address] [place] [address] Dr. Julia Velasquez VIT B12 AND FOLATEon 023 Cobalamin (Vitamin B12) [Mass/Vol] 199.0 pg/mL Normal 193.0-986.0 [facility] Comment on above: Performed By: #### L IVER, BMP, LIPA, EDSON #### [facility] [address] [place] [address] Dr. Julia Velasquez FOLATE 27.10 ng/mL Normal 8.60-58.90 [facility] Comment on above: Performed By: #### L IVER, BMP, LIPA, EDSON #### [facility] [address] [place] [address] Dr. Julia Velasquez XR CHEST 2 Von 02-03-2023 XR CHEST 2 V EXAM: XR CHEST 2 V HISTORY: Pneumonia . Follow-up study. COMPARISON: 01/07/2023 TECHNIQUE: Upright PA and lateral chest x-ray FINDINGS: Significant improvement of the residual infiltrate previously noted in the right upper lung. A small amount of linear atelectasis or scarring persist in the right midlung. No acute infiltrate, effusion or pneumothorax is identified. There is flattening of the hemidiaphragms indicating COPD. The heart is not enlarged and the vasculature is not distended. Degenerative changes are seen in the spine. IMPRESSION: Continued interval improvement of the aeration of the right upper lung. A small amount of linear atelectasis or scarring persists. There is no evidence of an acute infiltrate or cardiac decompensation at this time. Electronically authenticated by: NANDO CARLSON Date: 2023-02-03 14:28 Normal [facility] CBC AUTO DIFFon 01-07-2023 BASO # 0.0 103/ul Normal 0.0-0.1 [facility] Comment on above: Performed By: #### L IVER, BMP, LIPA, EDSON #### [facility] [address] [address] [address] Julia Velasquez Basophils/100 WBC (Bld) 0.6 % Normal 0.2-2.0 [facility] Comment on above: Performed By: #### L IVER, BMP, LIPA, EDSON #### [facility] [address] [address] [address] Julia Velasquez EO # 0.1 103/ul Normal 0.0-0.7 [facility] Comment on above: Performed By: #### L IVER, BMP, LIPA, EDSON #### [facility] [address] [address] [address] Julia Velasquez Eosinophils/100 WBC (Bld) 3.3 % Normal 0.9-7.0 [facility] Comment on above: Performed By: #### L IVER, BMP, LIPA, EDSON #### [facility] [address] [address] [address] Julia Velasquez Erythrocyte distribution width (RBC) [Ratio] 16.1 % Critically high 11.0-15.0 [facility] Comment on above: Performed By: #### L IVER, BMP, LIPA, EDSON #### [facility] [address] [address] [address] Julia Velasquez Hematocrit (Bld) [Volume fraction] 34.9 % Critically low 36.0-48.0 [facility] Comment on above: Performed By: #### L IVER, BMP, LIPA, EDSON #### [facility] [address] [place] [address] Dr. Julia Velasquez Hemoglobin (Bld) [Mass/Vol] 11.1 g/dL Critically low 12.0-16.0 [facility] Comment on above: Performed By: #### L IVER, BMP, LIPA, EDSON #### [facility] [address] [place] [address] Dr. Julia Velasquez IG # 0.05 10e3/ul Critically high 0.00-0.03 [facility] Comment on above: Performed By: #### L IVER, BMP, LIPA, EDSON #### [facility] [address] [place] [address] Dr. Julia Velasquez IG % 1.4 % Critically high 0.0-0.5 [facility] Comment on above: Performed By: #### L IVER, BMP, LIPA, EDSON #### [facility] [address] [place] [address] Dr. Julia Velasquez LYMPH # 1.1 103/ul Critically low 1.2-3.8 [facility] Comment on above: Performed By: #### L IVER, BMP, LIPA, EDSON #### [facility] [address] [place] [address] Dr. Julia Velasquez Lymphocytes/100 WBC (Bld) 31.6 % Normal 20.5-60.0 [facility] Comment on above: Performed By: #### L IVER, BMP, LIPA, EDSON #### [facility] [address] [place] [address] Dr. Julia Velasquez MANUAL DIFF REQ NO Normal [facility] Comment on above: Performed By: #### L IVER, BMP, LIPA, EDSON #### [facility] [address] [place] [address] Dr. Julia Velasquez MCH (RBC) [Entitic mass] 30.4 pg Normal 26.7-34.0 [facility] Comment on above: Performed By: #### L IVER, BMP, LIPA, EDSON #### [facility] [address] [place] [address] Dr. Julia Velasquez MCHC (RBC) [Mass/Vol] 31.8 g/dL Normal 29.9-35.2 [facility] Comment on above: Performed By: #### L IVER, BMP, LIPA, EDSON #### [facility] [address] [place] [address] Dr. Julia Velasquez MCV (RBC) [Entitic vol] 95.6 fL Normal 81.0-99.0 [facility] Comment on above: Performed By: #### L IVER, BMP, LIPA, EDSON #### [facility] [address] [place] [address] Dr. Julia Velasquez MONO # 0.2 103/ul Critically low 0.3-0.8 [facility] Comment on above: Performed By: #### L IVER, BMP, LIPA, EDSON #### [facility] [address] [place] [address] Dr. Julia Velasquez Monocytes/100 WBC (Bld) 6.1 % Normal 1.7-12.0 [facility] Comment on above: Performed By: #### L IVER, BMP, LIPA, EDSON #### [facility] [address] [place] [address] Dr. Julia Velasquez NEUT # 2.1 103/ul Normal 1.4-6.5 [facility] Comment on above: Performed By: #### L IVER, BMP, LIPA, EDSON #### [facility] [address] [place] [address] Dr. Julia Velasquez Neutrophils/100 WBC (Bld) 57.0 % Normal 43.0-75.0 [facility] Comment on above: Performed By: #### L IVER, BMP, LIPA, EDSON #### [facility] [address] [place] [address] Dr. Julia Velasquez Platelet mean volume (Bld) [Entitic vol] 10.4 fL Normal 9.5-13.5 [facility] Comment on above: Performed By: #### L IVER, BMP, LIPA, EDSON #### [facility] [address] [address] [address] Julia Velasquez PLT 167 103/ul Normal 150-450 [facility] Comment on above: Performed By: #### L IVER, BMP, LIPA, EDSON #### [facility] [address] [address] [address] Julia Velasquez RBC 3.65 106/ul Critically low 4.20-5.40 [facility] Comment on above: Performed By: #### L IVER, BMP, LIPA, EDSON #### [facility] [address] [place] [address] Dr. Julia Velasquez WBC 3.6 103/ul Critically low 4.0-11.0 [facility] Comment on above: Performed By: #### L IVER, BMP, LIPA, EDSON #### [facility] [address] [place] [address] Dr. Julia Velasquez FERRITINon 01-07-2023 Ferritin [Mass/Vol] 148.0 ng/mL Normal 8.0-252.0 [facility] Comment on above: Performed By: #### L IVER, BMP, LIPA, EDSON #### [facility] [address] [place] [address] Dr. Julia Velasquez IRON AND TIBCon 01-07-2023 % SATURATION 27.1 % Normal [facility] Comment on above: Performed By: #### L IVER, BMP, LIPA, EDSON #### [facility] [address] [place] [address] Dr. Julia Velasquez Iron [Mass/Vol] 96.0 ug/dL Normal 50.0-170.0 [facility] Comment on above: Performed By: #### L IVER, BMP, LIPA, EDSON #### [facility] [address] [place] [address] Dr. Julia Velasquez TIBC DIRECT 354.0 ug/dL Normal 250.0-450.0 [facility] Comment on above: Performed By: #### L IVER, BMP, LIPA, EDSON #### [facility] [address] [place] [address] Dr. Julia Velasquez PROF CHEM 8 (BAS METB)on Anion gap [Moles/Vol] 11.8 mmol/L Normal [facility] Comment on above: Performed By: #### L IVER, BMP, LIPA, EDSON #### [facility] [address] [place] [address] Dr. Julia Velasquez Calcium [Mass/Vol] 8.3 mg/dL Critically low 8.5-10.1 [facility] Comment on above: Performed By: #### L IVER, BMP, LIPA, EDSON #### [facility] [address] [place] [address] Dr. Julia Velasquez Chloride [Moles/Vol] 108 mmol/L Critically high 98-107 [facility] Comment on above: Performed By: #### L IVER, BMP, LIPA, EDSON #### [facility] [address] [place] [address] Dr. Julia Velasquez CO2 [Moles/Vol] 27.8 mmol/L Normal 21.0-32.0 [facility] Comment on above: Performed By: #### L IVER, BMP, LIPA, EDSON #### [facility] [address] [place] [address] Dr. Julia Velasquez Creatinine [Mass/Vol] 1.00 mg/dL Normal 0.55-1.02 [facility] Comment on above: Performed By: #### L IVER, BMP, LIPA, EDSON #### [facility] [address] [place] [address] Dr. Julia Velasquez EGFR-AF GIBRALTARIAN >60 Normal >=60 [facility] Comment on above: Performed By: #### L IVER, BMP, LIPA, EDSON #### [facility] [address] [place] [address] Dr. Julia Velasquez EGFR-NON AF GIBRALTARIAN 53 mL/min/1.73m2 Critically low >=60 [facility] Comment on above: Performed By: #### L IVER, BMP, LIPA, EDSON #### [facility] [address] [address] [address] Julia Velasquez Glucose [Mass/Vol] 92 mg/dL Normal 74-106 [facility] Comment on above: Performed By: #### L IVER, BMP, LIPA, EDSON #### [facility] [address] [address] [address] Julia Velasquez Potassium [Moles/Vol] 3.6 mmol/L Normal 3.5-5.1 [facility] Comment on above: Performed By: #### L IVER, BMP, LIPA, EDSON #### [facility] [address] [place] [address] Dr. Julia Velasquez Sodium [Moles/Vol] 144 mmol/L Normal 136-145 [facility] Comment on above: Performed By: #### L IVER, BMP, LIPA, EDSON #### [facility] [address] [place] [address] Dr. Julia Velasquez Urea nitrogen [Mass/Vol] 8.0 mg/dL Normal 7.0-18.0 [facility] Comment on above: Performed By: #### L IVER, BMP, LIPA, EDSON #### [facility] [address] [place] [address] Dr. Julia Velasquez Urea nitrogen/Creatinine [Mass ratio] 8.0 mg/mg Normal [facility] Comment on above: Performed By: #### L IVER, BMP, LIPA, EDSON #### [facility] [address] [place] [address] Dr. Julia Velasquez RETICULOCYTEon 01-07-2023 RETIC 4.40 % Critically high 0.60-3.10 [facility] Comment on above: Performed By: #### L IVER, BMP, LIPA, EDSON #### [facility] [address] [place] [address] Dr. Julia Velasquez VIT B12 AND FOLATEon 023 Cobalamin (Vitamin B12) [Mass/Vol] 322.0 pg/mL Normal 193.0-986.0 [facility] Comment on above: Performed By: #### L IVER, BMP, LIPA, EDSON #### [facility] [address] [address] [address] Julia Velasquez FOLATE 6.10 ng/mL Critically low 8.60-58.90 [facility] Comment on above: Performed By: #### L IVER, BMP, LIPA, EDSON #### [facility] [address] [address] [address] Julia Velasquez XR CHEST 2 Von 01-07-2023 XR CHEST 2 V EXAM: XR CHEST 2 V HISTORY: Pneumonia . Follow-up study. COMPARISON: 12/11/2022 TECHNIQUE: Upright PA and lateral chest x-ray FINDINGS: There has been significant improvement of the infiltrate seen in the right upper lung, although patchy infiltrate and slight loss of lung volume persists. The small effusion on the right is also no longer present. The left lung is clear. Heart is not enlarged and the vasculature is not distended. A small sliding-type hiatal hernia is noted. The osseous structures are grossly intact IMPRESSION: Significant improvement in the infiltrate in the right upper lung, although not completely cleared. The small right pleural effusion has resolved as well. No new infiltrate is identified and there is no evidence of overt cardiac decompensation. Electronically authenticated by: NANDO CARLSON Date: 2023-01-07 11:59 Normal [facility] CBC W MANUAL DIFFon 12-15-19 23 ATYPICAL LYMPH # Normal [facility] Comment on above: Performed By: #### L IVER, BMP, LIPA, EDSON #### [facility] [address] [address] [address] Julia Velasquez ATYPICAL LYMPH % Normal [facility] Comment on above: Performed By: #### L IVER, BMP, LIPA, EDSON #### [facility] [address] [address] [address] Julia Velasquez BAND # 1.0 103/ul Critically high 0.0-0.3 [facility] Comment on above: Performed By: #### L IVER, BMP, LIPA, EDSON #### [facility] [address] [address] [address] Julia Velasquez BAND % 9 % Critically high 0-5 [facility] Comment on above: Performed By: #### L IVER, BMP, LIPA, EDSON #### [facility] [address] [address] [address] Julia GARCIAOM # 0.00 103/ul Normal 0.00-0.10 [facility] Comment on above: Performed By: #### L IVER, BMP, LIPA, EDSON #### [facility] [address] [address] [address] Julia Velasquez BASOM % 0.0 % Critically low 0.2-2.0 [facility] Comment on above: Performed By: #### L IVER, BMP, LIPA, EDSON #### [facility] [address] [place] [address] Dr. Julia Velasquez BLAST # Normal [facility] Comment on above: Performed By: #### L IVER, BMP, LIPA, EDSON #### [facility] [address] [place] [address] Dr. Julia Velasquez BLAST % Normal [facility] Comment on above: Performed By: #### L IVER, BMP, LIPA, EDSON #### [facility] [address] [address] [address] Julia Velasquez CORRECTED WBC Normal 4.0-11.0 [facility] Comment on above: Performed By: #### L IVER, BMP, LIPA, EDSON #### [facility] [address] [place] [address] Dr. Julia Velasquez EOS # 0.22 103/ul Normal 0.00-0.70 [facility] Comment on above: Performed By: #### L IVER, BMP, LIPA, EDSON #### [facility] [address] [address] [address] Julia Velasquez EOS% 2.0 % Normal 0.9-7.0 [facility] Comment on above: Performed By: #### L IVER, BMP, LIPA, EDSON #### [facility] [address] [address] [address] Julia Velasquez HCT 27.3 % Critically low 36.0-48.0 [facility] Comment on above: Performed By: #### L IVER, BMP, LIPA, EDSON #### [facility] [address] [address] [address] Julia Velasquez HGB 8.5 g/dl Critically low 12.0-16.0 [facility] Comment on above: Performed By: #### L IVER, BMP, LIPA, EDSON #### [facility] [address] [place] [address] Dr. Julia Velasquez HYPOCHROMASIA SLIGHT Normal [facility] Comment on above: Performed By: #### L IVER, BMP, LIPA, EDSON #### [facility] [address] [place] [address] Dr. Julia Velasquez LYMPHM # 0.99 103/ul Critically low 1.20-3.80 [facility] Comment on above: Performed By: #### L IVER, BMP, LIPA, EDSON #### [facility] [address] [place] [address] Dr. Julia Velasquez LYMPHM% 9.0 % Critically low 20.5-60.0 [facility] Comment on above: Performed By: #### L IVER, BMP, LIPA, EDSON #### [facility] [address] [place] [address] Dr. Julia Velasquez MCH 28.3 pg Normal 26.7-34.0 [facility] Comment on above: Performed By: #### L IVER, BMP, LIPA, EDSON #### [facility] [address] [place] [address] Dr. Julia Velasquez MCHC 31.1 g/dl Normal 29.9-35.2 [facility] Comment on above: Performed By: #### L IVER, BMP, LIPA, EDSON #### [facility] [address] [place] [address] Dr. Julia Velasquez MCV 91.0 fL Normal 81.0-99.0 [facility] Comment on above: Performed By: #### L IVER, BMP, LIPA, EDSON #### [facility] [address] [place] [address] Dr. Julia Velasquez METAMYELOCYTE # Normal [facility] Comment on above: Performed By: #### L IVER, BMP, LIPA, EDSON #### [facility] [address] [place] [address] Dr. Julia Velasquez METAMYELOCYTE % Normal [facility] Comment on above: Performed By: #### L IVER, BMP, LIPA, EDSON #### [facility] [address] [place] [address] Dr. Julia Velasquez MONOM# 0.22 103/ul Critically low 0.30-0.80 [facility] Comment on above: Performed By: #### L IVER, BMP, LIPA, EDSON #### [facility] [address] [place] [address] Dr. Julia Velasquez MONOM% 2.0 % Normal 1.7-12.0 [facility] Comment on above: Performed By: #### L IVER, BMP, LIPA, EDSON #### [facility] [address] [place] [address] Dr. Julia Velasquez MPV 10.9 fL Normal 9.5-13.5 [facility] Comment on above: Performed By: #### L IVER, BMP, LIPA, EDSON #### [facility] [address] [place] [address] Dr. Julia Velasquez MYELOCYTE # Normal [facility] Comment on above: Performed By: #### L IVER, BMP, LIPA, EDSON #### [facility] [address] [place] [address] Dr. Julia Velasquez MYELOCYTE % Normal [facility] Comment on above: Performed By: #### L IVER, BMP, LIPA, EDSON #### [facility] [address] [place] [address] Dr. Julia Velasquez NRBC Normal [facility] Comment on above: Performed By: #### L IVER, BMP, LIPA, DESON #### [facility] [address] [place] [address] Dr. Julia Velasquez PLT 240 103/ul Normal 150-450 [facility] Comment on above: Performed By: #### L IVER, BMP, LIPA, EDSON #### [facility] [address] [address] [address] Julia Velasquez RBC 3.00 106/ul Critically low 4.20-5.40 [facility] Comment on above: Performed By: #### L IVER, BMP, LIPA, EDSON #### [facility] [address] [place] [address] Dr. Julia Velasquez RDW 17.2 % Critically high 11.0-15.0 [facility] Comment on above: Performed By: #### L IVER, BMP, LIPA, EDSON #### [facility] [address] [place] [address] Dr. Julia Velasquez SEG # 8.58 103/ul Critically high 1.40-6.50 [facility] Comment on above: Performed By: #### L IVER, BMP, LIPA, EDSON #### [facility] [address] [place] [address] Dr. Julia Velasquez SEG % 78.0 % Critically high 43.0-75.0 [facility] Comment on above: Performed By: #### L IVER, BMP, LIPA, EDSON #### [facility] [address] [place] [address] Dr. Julia Velasquez WBC 11.0 103/ul Normal 4.0-11.0 [facility] Comment on above: Performed By: #### L IVER, BMP, LIPA, EDSON #### [facility] [address] [place] [address] Dr. Julia Velasquez PROF 14(COMP METB)on 023 Albumin [Mass/Vol] 1.3 g/dL Critically low 3.4-5.0 [facility] Comment on above: Performed By: #### C MP #### [facility] [address] [place] [address] Dr. Julia Velasquez Albumin/Globulin [Mass ratio] 0.3 {ratio} Normal [facility] Comment on above: Performed By: #### C MP #### [facility] [address] [address] [address] Julia Velasquez ALP [Catalytic activity/Vol] 93 U/L Normal 46-116 [facility] Comment on above: Performed By: #### C MP #### [facility] [address] [place] [address] Dr. Julia Velasquez ALT [Catalytic activity/Vol] 30 U/L Normal 14-59 [facility] Comment on above: Performed By: #### C MP #### [facility] [address] [address] [address] Julia Velasquez Anion gap [Moles/Vol] 13.4 mmol/L Normal [facility] Comment on above: Performed By: #### C MP #### [facility] [address] [address] [address] Julia Velasquez AST [Catalytic activity/Vol] 71 U/L Critically high 15-37 [facility] Comment on above: Performed By: #### C MP #### [facility] [address] [address] [address] Julia Velasquez Bilirubin [Mass/Vol] 1.2 mg/dL Critically high 0.2-1.0 [facility] Comment on above: Performed By: #### C MP #### [facility] [address] [place] [address] Dr. Julia Velasquez Calcium [Mass/Vol] 8.1 mg/dL Critically low 8.5-10.1 [facility] Comment on above: Performed By: #### C MP #### [facility] [address] [address] [address] Julia Velasquez Chloride [Moles/Vol] 116 mmol/L Critically high 98-107 [facility] Comment on above: Performed By: #### C MP #### [facility] [address] [place] [address] Dr. Julia Velasquez CO2 [Moles/Vol] 21.3 mmol/L Normal 21.0-32.0 [facility] Comment on above: Performed By: #### C MP #### [facility] [address] [place] [address] Dr. Julia Velasquez Creatinine [Mass/Vol] 1.10 mg/dL Critically high 0.55-1.02 [facility] Comment on above: Performed By: #### C MP #### [facility] [address] [address] [address] Julia Velasquez EGFR-AF GIBRALTARIAN 58 mL/min/1.73m2 Critically low >=60 [facility] Comment on above: Performed By: #### C MP #### [facility] [address] [address] [address] Julia Velasquez EGFR-NON AF GIBRALTARIAN 48 mL/min/1.73m2 Critically low >=60 [facility] Comment on above: Performed By: #### C MP #### [facility] [address] [place] [address] Dr. Julia Velasquez Globulin (S) [Mass/Vol] 3.8 g/dL Normal [facility] Comment on above: Performed By: #### C MP #### [facility] [address] [address] [address] Julia Velasquez Glucose [Mass/Vol] 110 mg/dL Critically high 74-106 [facility] Comment on above: Performed By: #### C MP #### [facility] [address] [place] [address] Dr. Julia Velasquez Potassium [Moles/Vol] 4.7 mmol/L Normal 3.5-5.1 [facility] Comment on above: Performed By: #### C MP #### [facility] [address] [address] [address] Julia Velasquez Protein [Mass/Vol] 5.1 g/dL Critically low 6.4-8.2 [facility] Comment on above: Performed By: #### C MP #### [facility] [address] [place] [address] Dr. Julia Velasquez Sodium [Moles/Vol] 146 mmol/L Critically high 136-145 [facility] Comment on above: Performed By: #### C MP #### [facility] [address] [place] [address] Dr. Julia Velasquez Urea nitrogen [Mass/Vol] 34.0 mg/dL Critically high 7.0-18.0 [facility] Comment on above: Performed By: #### C MP #### [facility] [address] [place] [address] Dr. Julia Velasquez Urea nitrogen/Creatinine [Mass ratio] 30.9 mg/mg Normal [facility] Comment on above: Performed By: #### C MP #### [facility] [address] [place] [address] Dr. Julia Velasquez CBC W MANUAL DIFFon 12-14-19 23 ATYPICAL LYMPH # 0.21 103/ul Normal [facility] Comment on above: Performed By: #### C MP #### [facility] [address] [place] [address] Dr. Julia Velasquez ATYPICAL LYMPH % 1 % Normal [facility] Comment on above: Performed By: #### C MP #### [facility] [address] [place] [address] Dr. Julia Velasquez BAND # 0.2 103/ul Normal 0.0-0.3 [facility] Comment on above: Performed By: #### C MP #### [facility] [address] [place] [address] Dr. Julia Velasquez BAND % 1 % Normal 0-5 [facility] Comment on above: Performed By: #### C MP #### [facility] [address] [place] [address] Dr. Julia Velasquez BASOM # 0.00 103/ul Normal 0.00-0.10 [facility] Comment on above: Performed By: #### C MP #### [facility] [address] [place] [address] Dr. Julia Velasquez BASOM % 0.0 % Critically low 0.2-2.0 [facility] Comment on above: Performed By: #### C MP #### [facility] [address] [place] [address] Dr. Julia Velasquez BLAST # Normal [facility] Comment on above: Performed By: #### C MP #### [facility] [address] [place] [address] Dr. Julia Velasquez BLAST % Normal [facility] Comment on above: Performed By: #### C MP #### [facility] [address] [address] [address] Julia Velasquez CORRECTED WBC Normal 4.0-11.0 [facility] Comment on above: Performed By: #### C MP #### [facility] [address] [address] [address] Julia Velasquez EOS # 0.00 103/ul Normal 0.00-0.70 [facility] Comment on above: Performed By: #### C MP #### [facility] [address] [address] [address] Julia Velasquez EOS% 0.0 % Critically low 0.9-7.0 [facility] Comment on above: Performed By: #### C MP #### [facility] [address] [place] [address] Dr. Julia Velasquez HCT 26.7 % Critically low 36.0-48.0 [facility] Comment on above: Performed By: #### C MP #### [facility] [address] [place] [address] Dr. Julia Velasquez HGB 8.8 g/dl Critically low 12.0-16.0 [facility] Comment on above: Performed By: #### C MP #### [facility] [address] [place] [address] Dr. Julia Velasquez LYMPHM # 1.05 103/ul Critically low 1.20-3.80 [facility] Comment on above: Performed By: #### C MP #### [facility] [address] [place] [address] Dr. Julia Velasquez LYMPHM% 5.0 % Critically low 20.5-60.0 [facility] Comment on above: Performed By: #### C MP #### [facility] [address] [address] [address] Julia Velasquez MCH 29.0 pg Normal 26.7-34.0 [facility] Comment on above: Performed By: #### C MP #### [facility] [address] [place] [address] Dr. Julia Velasquez MCHC 33.0 g/dl Normal 29.9-35.2 [facility] Comment on above: Performed By: #### C MP #### [facility] [address] [place] [address] Dr. Julia Velasquez MCV 88.1 fL Normal 81.0-99.0 [facility] Comment on above: Performed By: #### C MP #### [facility] [address] [place] [address] Dr. Julia Velasquez METAMYELOCYTE # Normal [facility] Comment on above: Performed By: #### C MP #### [facility] [address] [place] [address] Dr. Julia Velasquez METAMYELOCYTE % Normal [facility] Comment on above: Performed By: #### C MP #### [facility] [address] [place] [address] Dr. Julia Velasquez MONOM# 0.21 103/ul Critically low 0.30-0.80 [facility] Comment on above: Performed By: #### C MP #### [facility] [address] [place] [address] Dr. Julia Velasquez MONOM% 1.0 % Critically low 1.7-12.0 [facility] Comment on above: Performed By: #### C MP #### [facility] [address] [place] [address] Dr. Julia Velasquez MPV 10.6 fL Normal 9.5-13.5 [facility] Comment on above: Performed By: #### C MP #### [facility] [address] [place] [address] Dr. Julia Velasquez MYELOCYTE # Normal [facility] Comment on above: Performed By: #### C MP #### [facility] [address] [place] [address] Dr. Julia Velasquez MYELOCYTE % Normal [facility] Comment on above: Performed By: #### C MP #### [facility] [address] [place] [address] Dr. Julia Velasquez NRBC Normal [facility] Comment on above: Performed By: #### C MP #### [facility] [address] [address] [address] Julia Velasquez PLT 271 103/ul Normal 150-450 [facility] Comment on above: Performed By: #### C MP #### [facility] [address] [address] [address] Julia Velasquez RBC 3.03 106/ul Critically low 4.20-5.40 [facility] Comment on above: Performed By: #### C MP #### [facility] [address] [address] [address] Julia Velasquez RDW 16.7 % Critically high 11.0-15.0 [facility] Comment on above: Performed By: #### C MP #### [facility] [address] [address] [address] Julia Velasquez SEG # 19.41 103/ul Critically high 1.40-6.50 [facility] Comment on above: Performed By: #### C MP #### [facility] [address] [address] [address] Julia Velasquez SEG % 92.0 % Critically high 43.0-75.0 [facility] Comment on above: Performed By: #### C MP #### [facility] [address] [address] [address] Julia Velasquez WBC 21.1 103/ul Critically high 4.0-11.0 [facility] Comment on above: Performed By: #### C MP #### [facility] [address] [address] [address] Julia Velasquez PROF 14(COMP METB)on 023 Albumin [Mass/Vol] 1.4 g/dL Critically low 3.4-5.0 [facility] Comment on above: Performed By: #### C MP #### [facility] [address] [address] [address] Julia Velasquez Albumin/Globulin [Mass ratio] 0.4 {ratio} Normal [facility] Comment on above: Performed By: #### C MP #### [facility] [address] [address] [address] Julia Velasquez ALP [Catalytic activity/Vol] 87 U/L Normal 46-116 [facility] Comment on above: Performed By: #### C MP #### [facility] [address] [address] [address] Julia Velasquez ALT [Catalytic activity/Vol] 26 U/L Normal 14-59 [facility] Comment on above: Performed By: #### C MP #### [facility] [address] [address] [address] Julia Velasquez Anion gap [Moles/Vol] 14.7 mmol/L Normal [facility] Comment on above: Performed By: #### C MP #### [facility] [address] [place] [address] Dr. Julia Velasquez AST [Catalytic activity/Vol] 59 U/L Critically high 15-37 [facility] Comment on above: Performed By: #### C MP #### [facility] [address] [address] [address] Julia Velasquez Bilirubin [Mass/Vol] 1.5 mg/dL Critically high 0.2-1.0 [facility] Comment on above: Performed By: #### C MP #### [facility] [address] [address] [address] Julia Velasquez Calcium [Mass/Vol] 8.1 mg/dL Critically low 8.5-10.1 [facility] Comment on above: Performed By: #### C MP #### [facility] [address] [address] [address] Julia Velasquez Chloride [Moles/Vol] 118 mmol/L Critically high 98-107 [facility] Comment on above: Performed By: #### C MP #### [facility] [address] [address] [address] Julia Velasquez CO2 [Moles/Vol] 20.6 mmol/L Critically low 21.0-32.0 [facility] Comment on above: Performed By: #### C MP #### [facility] [address] [address] [address] Julia Velasquez Creatinine [Mass/Vol] 1.20 mg/dL Critically high 0.55-1.02 [facility] Comment on above: Performed By: #### C MP #### [facility] [address] [address] [address] Julia Velasquez EGFR-AF GIBRALTARIAN 52 mL/min/1.73m2 Critically low >=60 [facility] Comment on above: Performed By: #### C MP #### [facility] [address] [address] [address] Julia Velasquez EGFR-NON AF GIBRALTARIAN 43 mL/min/1.73m2 Critically low >=60 [facility] Comment on above: Performed By: #### C MP #### [facility] [address] [address] [address] Julia Velasquez Globulin (S) [Mass/Vol] 3.4 g/dL Normal [facility] Comment on above: Performed By: #### C MP #### [facility] [address] [address] [address] Julia Velasquez Glucose [Mass/Vol] 119 mg/dL Critically high 74-106 [facility] Comment on above: Performed By: #### C MP #### [facility] [address] [address] [address] Julia Velasquez Potassium [Moles/Vol] 4.3 mmol/L Normal 3.5-5.1 [facility] Comment on above: Performed By: #### C MP #### [facility] [address] [address] [address] Julia Velasquez Protein [Mass/Vol] 4.8 g/dL Critically low 6.4-8.2 [facility] Comment on above: Performed By: #### C MP #### [facility] [address] [address] [address] Julia Velasquez Sodium [Moles/Vol] 149 mmol/L Critically high 136-145 [facility] Comment on above: Performed By: #### C MP #### [facility] [address] [address] [address] Julia Velasquez Urea nitrogen [Mass/Vol] 47.0 mg/dL Critically high 7.0-18.0 [facility] Comment on above: Performed By: #### C MP #### [facility] [address] [address] [address] Julia Velasquez Urea nitrogen/Creatinine [Mass ratio] 39.2 mg/mg Normal [facility] Comment on above: Performed By: #### C MP #### [facility] [address] [address] [address] Julia Velasquez CBC W MANUAL DIFFon 12-13-19 23 ATYPICAL LYMPH # Normal [facility] Comment on above: Performed By: #### L IVER, BMP, LIPA, EDSON #### [facility] [address] [address] [address] Julia Velasquez ATYPICAL LYMPH % Normal [facility] Comment on above: Performed By: #### L IVER, BMP, LIPA, EDSON #### [facility] [address] [address] [address] Julia Velasquez BAND # 0.9 103/ul Critically high 0.0-0.3 [facility] Comment on above: Performed By: #### L IVER, BMP, LIPA, EDSON #### [facility] [address] [address] [address] Julia Velasquez BAND % 3 % Normal 0-5 [facility] Comment on above: Performed By: #### L IVER, BMP, LIPA, EDSON #### [facility] [address] [address] [address] Julia Velasquez BASOM # 0.00 103/ul Normal 0.00-0.10 [facility] Comment on above: Performed By: #### L IVER, BMP, LIPA, EDSON #### [facility] [address] [address] [address] Julia Velasquez BASOM % 0.0 % Critically low 0.2-2.0 [facility] Comment on above: Performed By: #### L IVER, BMP, LIPA, EDSON #### [facility] [address] [place] [address] Dr. Julia Velasquez BLAST # Normal [facility] Comment on above: Performed By: #### L IVER, BMP, LIPA, EDSON #### [facility] [address] [place] [address] Dr. Julia Velasquez BLAST % Normal [facility] Comment on above: Performed By: #### L IVER, BMP, LIPA, EDSON #### [facility] [address] [place] [address] Dr. Julia Velasquez CORRECTED WBC Normal 4.0-11.0 [facility] [facility] Comment on above: Performed By: #### L IVER, BMP, LIPA, EDSON #### [facility] [address] [place] [address] Dr. Julia Velasquez EOS # 0.00 103/ul Normal 0.00-0.70 [facility] Comment on above: Performed By: #### L IVER, BMP, LIPA, EDSON #### [facility] [address] [place] [address] Dr. Julia Velasquez EOS% 0.0 % Critically low 0.9-7.0 [facility] Comment on above: Performed By: #### L IVER, BMP, LIPA, EDSON #### [facility] [address] [place] [address] Dr. Julia Velasquez HCT 28.9 % Critically low 36.0-48.0 [facility] Comment on above: Performed By: #### L IVER, BMP, LIPA, EDSON #### [facility] [address] [place] [address] Dr. Julia Velasquez HGB 9.5 g/dl Critically low 12.0-16.0 [facility] Comment on above: Performed By: #### L IVER, BMP, LIPA, EDSON #### [facility] [address] [place] [address] Dr. Julia Velasquez LYMPHM # 1.21 103/ul Normal 1.20-3.80 [facility] Comment on above: Performed By: #### L IVER, BMP, LIPA, EDSON #### [facility] [address] [address] [address] Julia Velasquez LYMPHM% 4.0 % Critically low 20.5-60.0 [facility] Comment on above: Performed By: #### L IVER, BMP, LIPA, EDSON #### [facility] [address] [place] [address] Dr. Julia Velasquez MCH 29.2 pg Normal 26.7-34.0 [facility] Comment on above: Performed By: #### L IVER, BMP, LIPA, EDSON #### [facility] [address] [place] [address] Dr. Julia Velasquez MCHC 32.9 g/dl Normal 29.9-35.2 [facility] Comment on above: Performed By: #### L IVER, BMP, LIPA, EDSON #### [facility] [address] [place] [address] Dr. Julia Velasquez MCV 88.9 fL Normal 81.0-99.0 [facility] Comment on above: Performed By: #### L IVER, BMP, LIPA, EDSON #### [facility] [address] [place] [address] Dr. Julia Velasquez METAMYELOCYTE # Normal [facility] Comment on above: Performed By: #### L IVER, BMP, LIPA, EDSON #### [facility] [address] [place] [address] Dr. Julia Velasquez METAMYELOCYTE % Normal [facility] Comment on above: Performed By: #### L IVER, BMP, LIPA, EDSON #### [facility] [address] [place] [address] Dr. Julia Velasquez MONOM# 1.21 103/ul Critically high 0.30-0.80 [facility] Comment on above: Performed By: #### L IVER, BMP, LIPA, EDSON #### [facility] [address] [place] [address] Dr. Julia Velasquez MONOM% 4.0 % Normal 1.7-12.0 [facility] Comment on above: Performed By: #### L IVER, BMP, LIPA, EDSON #### [facility] [address] [address] [address] Julia Velasquez MPV 11.2 fL Normal 9.5-13.5 [facility] Comment on above: Performed By: #### L IVER, BMP, LIPA, EDSON #### [facility] [address] [address] [address] Julia Velasquez MYELOCYTE # Normal [facility] Comment on above: Performed By: #### L IVER, BMP, LIPA, EDSON #### [facility] [address] [address] [address] Julia Velasquez MYELOCYTE % Normal [facility] Comment on above: Performed By: #### L IVER, BMP, LIPA, EDSON #### [facility] [address] [place] [address] Dr. Julia Velasquez NRBC 2 Normal [facility] Comment on above: Performed By: #### L IVER, BMP, LIPA, EDSON #### [facility] [address] [address] [address] Julia Velasquez PLT 273 103/ul Normal 150-450 [facility] Comment on above: Performed By: #### L IVER, BMP, LIPA, EDSON #### [facility] [address] [address] [address] Julia Velasquez RBC 3.25 106/ul Critically low 4.20-5.40 [facility] Comment on above: Performed By: #### L IVER, BMP, LIPA, EDSON #### [facility] [address] [address] [address] Julia Velasquez RDW 16.0 % Critically high 11.0-15.0 [facility] Comment on above: Performed By: #### L IVER, BMP, LIPA, EDSON #### [facility] [address] [address] [address] Julia Velasquez SEG # 26.97 103/ul Critically high 1.40-6.50 [facility] Comment on above: Performed By: #### L IVER, BMP, LIPA, EDSON #### [facility] [address] [address] [address] Julia Velasquez SEG % 89.0 % Critically high 43.0-75.0 [facility] Comment on above: Performed By: #### L IVER, BMP, LIPA, EDSON #### [facility] [address] [place] [address] Dr. Julia Velasquez WBC 30.3 103/ul Critically high 4.0-11.0 [facility] Comment on above: Performed By: #### L IVER, BMP, LIPA, EDSON #### [facility] [address] [place] [address] Dr. Julia Velasquez GI PANEL (PCR)on 12-12-2022 Adenovirus F 40/41 Not detected Normal NOT DETECTED [facility] Comment on above: Performed By: #### L IVER, BMP, LIPA, EDSON #### [facility] [address] [place] [address] Dr. Julia Velasquez Astrovirus Not detected Normal NOT DETECTED [facility] Comment on above: Performed By: #### L IVER, BMP, LIPA, EDSON #### [facility] [address] [place] [address] Dr. Julia Velasquez C. Diff toxin A/B Not detected Normal NOT DETECTED [facility] Comment on above: Performed By: #### L IVER, BMP, LIPA, EDSON #### [facility] [address] [place] [address] Dr. Julia Velasquez Campylobacter Not detected Normal NOT DETECTED [facility] Comment on above: Performed By: #### L IVER, BMP, LIPA, EDSON #### [facility] [address] [place] [address] Dr. Julia Velasquez Cryptosporidium Not detected Normal NOT DETECTED [facility] Comment on above: Performed By: #### L IVER, BMP, LIPA, EDSON #### [facility] [address] [place] [address] Dr. Julia Velasquez Cyclos. Cayetanensis Not detected Normal NOT DETECTED [facility] Comment on above: Performed By: #### L IVER, BMP, LIPA, EDSON #### [facility] [address] [address] [address] Julia Velasquez E. Coli O157 Not Applicable Normal Not Applicable [facility] Comment on above: Performed By: #### L IVER, BMP, LIPA, EDSON #### [facility] [address] [address] [address] Julia Velasquez E. histolytica Not detected Normal NOT DETECTED [facility] Comment on above: Performed By: #### L IVER, BMP, LIPA, EDSON #### [facility] [address] [address] [address] Julia Velasquez EAEC Not detected Normal NOT DETECTED [facility] Comment on above: Performed By: #### L IVER, BMP, LIPA, EDSON #### [facility] [address] [place] [address] Dr. Julia Velasquez EIEC Not detected Normal NOT DETECTED [facility] Comment on above: Performed By: #### L IVER, BMP, LIPA, EDSON #### [facility] [address] [place] [address] Dr. Julia Velasquez EPEC Not detected Normal NOT DETECTED [facility] Comment on above: Performed By: #### L IVER, BMP, LIPA, EDSON #### [facility] [address] [place] [address] Dr. Julia Velasquez ETEC Not detected Normal NOT DETECTED [facility] Comment on above: Performed By: #### L IVER, BMP, LIPA, EDSON #### [facility] [address] [place] [address] Dr. Julia Velasquez G. Lamblia Not detected Normal NOT DETECTED [facility] Comment on above: Performed By: #### L IVER, BMP, LIPA, EDSON #### [facility] [address] [place] [address] Dr. Julia Velasquez GIPANEL CONTROLS PASSED Normal [facility] Comment on above: Performed By: #### L IVER, BMP, LIPA, EDSON #### [facility] [address] [address] [address] Julia MORALES BANNER HEADER GI PANEL BACTERIA Normal T [facility] Comment on above: Performed By: #### L IVER, BMP, LIPA, EDSON #### [facility] [address] [address] [address] Julia DEMPSEY ECOLI GI PANEL DIARRHEAGEN IC E.COLI / SHIGELLA Normal [facility] Comment on above: Performed By: #### L IVER, BMP, LIPA, EDSON #### [facility] [address] [address] [address] Julia DEMPSEY INFO SEE BELOW Normal [facility] Comment on above: Result Comment: EAEC - Enteroaggregative E. Coli EPEC- Enteropathogenic E. Coli ETEC- Enterotoxigenic E. Coli lt/st STEC- Shigella-like toxin-producing E. Coli stx1/stx2 EIEC- Shigella/Enteroinvasive E. Coli Performed By: #### L IVER, BMP, LIPA, EDSON #### [facility] [address] [address] [address] Julia DEMPSEY PARASITES GI PANEL PARASITES Normal [facility] Comment on above: Performed By: #### L IVSAM, BMP, LIPA, EDSON #### [facility] [address] [address] [address] Julia DEMPSEY VIRUS GI PANEL VIRUSES Normal [facility] Comment on above: Performed By: #### L IVER, BMP, LIPA, EDSON #### [facility] [address] [address] [address] Julia Velasquez Norovirus GI/GII Not detected Normal NOT DETECTED [facility] Comment on above: Performed By: #### L IVER, BMP, LIPA, EDSON #### [facility] [address] [address] [address] Julia Velasquez P. Shigelloides Not detected Normal NOT DETECTED [facility] Comment on above: Performed By: #### L IVER, BMP, LIPA, EDSON #### [facility] [address] [place] [address] Dr. Julia Velasquez Rotavirus A Not detected Normal NOT DETECTED [facility] Comment on above: Performed By: #### L IVER, BMP, LIPA, EDSON #### [facility] [address] [place] [address] Dr. Julia Velasquez Salmonella Not detected Normal NOT DETECTED [facility] Comment on above: Performed By: #### L IVER, BMP, LIPA, EDSON #### [facility] [address] [place] [address] Dr. Julia Velasquez Sapovirus Not detected Normal NOT DETECTED [facility] Comment on above: Performed By: #### L IVER, BMP, LIPA, EDSON #### [facility] [address] [place] [address] Dr. Julia Velasquez STEC Not detected Normal NOT DETECTED [facility] Comment on above: Performed By: #### L IVER, BMP, LIPA, EDSON #### [facility] [address] [place] [address] Dr. Julia Velasquez Vibrio Not detected Normal NOT DETECTED [facility] Comment on above: Performed By: #### L IVER, BMP, LIPA, EDSON #### [facility] [address] [place] [address] Dr. Julia Velasquez Vibrio Cholera Not detected Normal NOT DETECTED [facility] Comment on above: Performed By: #### L IVER, BMP, LIPA, EDSON #### [facility] [address] [place] [address] Dr. Julia Velasquez Y. Enterocolitica Not detected Normal NOT DETECTED [facility] Comment on above: Performed By: #### L IVER, BMP, LIPA, EDSON #### [facility] [address] [place] [address] Dr. Julia Velasquez PROF 14(COMP METB)on 023 Albumin [Mass/Vol] 1.4 g/dL Critically low 3.4-5.0 [facility] Comment on above: Performed By: #### L IVER, BMP, LIPA, EDSON #### [facility] [address] [address] [address] Julia Velasquez Albumin/Globulin [Mass ratio] 0.3 {ratio} Normal [facility] Comment on above: Performed By: #### L IVER, BMP, LIPA, EDSON #### [facility] [address] [address] [address] Julia Velasquez ALP [Catalytic activity/Vol] 89 U/L Normal 46-116 [facility] Comment on above: Performed By: #### L IVER, BMP, LIPA, EDSON #### [facility] [address] [place] [address] Dr. Julia Velasquez ALT [Catalytic activity/Vol] 27 U/L Normal 14-59 [facility] Comment on above: Performed By: #### L IVER, BMP, LIPA, EDSON #### [facility] [address] [place] [address] Dr. Julia Velasquez Anion gap [Moles/Vol] 14.7 mmol/L Normal [facility] Comment on above: Performed By: #### L IVER, BMP, LIPA, EDSON #### [facility] [address] [place] [address] Dr. Julia Velasquez AST [Catalytic activity/Vol] 58 U/L Critically high 15-37 [facility] Comment on above: Performed By: #### L IVER, BMP, LIPA, EDSON #### [facility] [address] [place] [address] Dr. Julia Velasquez Bilirubin [Mass/Vol] 2.0 mg/dL Critically high 0.2-1.0 [facility] Comment on above: Performed By: #### L IVER, BMP, LIPA, EDSON #### [facility] [address] [place] [address] Dr. Julia Velasquez Calcium [Mass/Vol] 8.8 mg/dL Normal 8.5-10.[address] [facility] Comment on above: Performed By: #### L IVER, BMP, LIPA, EDSON #### [facility] [address] [address] [address] Julia Velasquez Chloride [Moles/Vol] 118 mmol/L Critically high 98-107 [facility] Comment on above: Performed By: #### L IVER, BMP, LIPA, EDSON #### [facility] [address] [place] [address] Dr. Julia Velasquez CO2 [Moles/Vol] 20.7 mmol/L Critically low 21.0-32.0 [facility] Comment on above: Performed By: #### L IVER, BMP, LIPA, EDSON #### [facility] [address] [place] [address] Dr. Julia Velasquez Creatinine [Mass/Vol] 1.63 mg/dL Critically high 0.55-1.02 [facility] Comment on above: Performed By: #### L IVER, BMP, LIPA, EDSON #### [facility] [address] [place] [address] Dr. Julia Velasquez EGFR-AF GIBRALTARIAN 37 mL/min/1.73m2 Critically low >=60 [facility] Comment on above: Performed By: #### L IVER, BMP, LIPA, EDSON #### [facility] [address] [place] [address] Dr. Julia Velasquez EGFR-NON AF GIBRALTARIAN 30 mL/min/1.73m2 Critically low >=60 [facility] Comment on above: Performed By: #### L IVER, BMP, LIPA, EDSON #### [facility] [address] [place] [address] Dr. Julia Velasquez Globulin (S) [Mass/Vol] 4.7 g/dL Normal [facility] Comment on above: Performed By: #### L IVER, BMP, LIPA, EDSON #### [facility] [address] [place] [address] Dr. Julia Velasquez Glucose [Mass/Vol] 130 mg/dL Critically high 74-106 [facility] Comment on above: Performed By: #### L IVER, BMP, LIPA, EDSON #### [facility] [address] [place] [address] Dr. Julia Velasquez Potassium [Moles/Vol] 4.4 mmol/L Normal 3.5-5.1 [facility] Comment on above: Performed By: #### L IVER, BMP, LIPA, EDSON #### [facility] [address] [place] [address] Dr. Julia Velasquez Protein [Mass/Vol] 6.1 g/dL Critically low 6.4-8.2 [facility] Comment on above: Performed By: #### L IVER, BMP, LIPA, EDSON #### [facility] [address] [place] [address] Dr. Julia Velasquez Sodium [Moles/Vol] 149 mmol/L Critically high 136-145 [facility] Comment on above: Performed By: #### L IVER, BMP, LIPA, EDSON #### [facility] [address] [place] [address] Dr. Julia Velasquez Urea nitrogen [Mass/Vol] 56.0 mg/dL Critically high 7.0-18.0 [facility] Comment on above: Performed By: #### L IVER, BMP, LIPA, EDSON #### [facility] [address] [place] [address] Dr. Julia Velasquez Urea nitrogen/Creatinine [Mass ratio] 34.4 mg/mg Normal [facility] Comment on above: Performed By: #### L IVER, BMP, LIPA, EDSON #### [facility] [address] [place] [address] Dr. Julia Velasquez RESPIRATORY PANEL PLUSon Adenovirus Not detected Normal NOT DETECTED [facility] Comment on above: Performed By: #### L IVER, BMP, LIPA, EDSON #### [facility] [address] [place] [address] Dr. Julia Crystal. Parapertusis Not detected Normal NOT DETECTED [facility] Comment on above: Performed By: #### L IVER, BMP, LIPA, EDSON #### [facility] [address] [place] [address] Dr. Julia Charles Pertussis Not detected Normal NOT DETECTED [facility] Comment on above: Performed By: #### L IVER, BMP, LIPA, EDSON #### [facility] [address] [place] [address] Dr. Julia Velasquez Chlamydia Pneumoniae Not detected Normal NOT DETECTED [facility] Comment on above: Performed By: #### L IVER, BMP, LIPA, EDSON #### [facility] [address] [place] [address] Dr. Julia Velasquez Coronavirus 229E Not detected Normal NOT DETECTED [facility] Comment on above: Performed By: #### L IVER, BMP, LIPA, EDSON #### [facility] [address] [place] [address] Dr. Julia Velasquez Coronavirus HKU1 Not detected Normal NOT DETECTED [facility] Comment on above: Performed By: #### L IVER, BMP, LIPA, EDSON #### [facility] [address] [place] [address] Dr. Julia Velasquez Coronavirus NL63 Not detected Normal NOT DETECTED [facility] Comment on above: Performed By: #### L IVER, BMP, LIPA, EDSON #### [facility] [address] [place] [address] Dr. Julia Velasquez Coronavirus OC43 Not detected Normal NOT DETECTED [facility] Comment on above: Performed By: #### L IVER, BMP, LIPA, EDSON #### [facility] [address] [place] [address] Dr. Julia Velasquez Influenza A H1 Not detected Normal NOT DETECTED [facility] Comment on above: Performed By: #### L IVER, BMP, LIPA, EDSON #### [facility] [address] [place] [address] Dr. Julia Velasquez Influenza A H1 2009 Not detected Normal NOT DETECTED [facility] Comment on above: Performed By: #### L IVER, BMP, LIPA, EDSON #### [facility] [address] [place] [address] Dr. Julia Velasquez Influenza A H3 Not detected Normal NOT DETECTED [facility] Comment on above: Performed By: #### L IVER, BMP, LIPA, EDSON #### [facility] [address] [place] [address] Dr. Julia Velasquez Influenza B Not detected Normal NOT DETECTED [facility] Comment on above: Performed By: #### L IVER, BMP, LIPA, EDSON #### [facility] [address] [place] [address] Dr. Julia Velasquez Metapneumovirus Not detected Normal NOT DETECTED [facility] Comment on above: Performed By: #### L IVER, BMP, LIPA, EDSON #### [facility] [address] [place] [address] Dr. Julia Velasquez Mycoplas. Pneumoniae Not detected Normal NOT DETECTED [facility] Comment on above: Performed By: #### L IVER, BMP, LIPA, EDSON #### [facility] [address] [place] [address] Dr. Julia Velasquez Parainfluenza 1 Not detected Normal NOT DETECTED [facility] Comment on above: Performed By: #### L IVER, BMP, LIPA, EDSON #### [facility] [address] [place] [address] Dr. Julia Velasquez Parainfluenza 2 Not detected Normal NOT DETECTED [facility] Comment on above: Performed By: #### L IVER, BMP, LIPA, EDSON #### [facility] [address] [place] [address] Dr. Julia Velasquez Parainfluenza 3 Not detected Normal NOT DETECTED [facility] Comment on above: Performed By: #### L IVER, BMP, LIPA, EDSON #### [facility] [address] [place] [address] Dr. Julia Velasquez Parainfluenza 4 Not detected Normal NOT DETECTED [facility] Comment on above: Performed By: #### L IVER, BMP, LIPA, EDSON #### [facility] [address] [place] [address] Dr. Julia Velasquez Rhino/Enterovirus Not detected Normal NOT DETECTED [facility] Comment on above: Performed By: #### L IVER, BMP, LIPA, EDSON #### [facility] [address] [place] [address] Dr. Julia Velasquez RP2 Header 1 RESPIRATORY PANEL: VIRUSES Normal [facility] Comment on above: Performed By: #### L IVER, BMP, LIPA, EDSON #### [facility] [address] [place] [address] Dr. Julia Velasquez RP2 Header 2 RESPIRATORY PANEL: BACTERIA Normal [facility] Comment on above: Performed By: #### L IVER, BMP, LIPA, EDSON #### [facility] [address] [place] [address] Dr. Julia Velasquez RSV Not detected Normal NOT DETECTED [facility] Comment on above: Performed By: #### L IVER, BMP, LIPA, EDSON #### [facility] [address] [place] [address] Dr. Julia Velasquez SARS-CoV-2 (COVID-19) RNA MARIO+probe Ql (Unsp spec) Not detected Normal NOT DETECTED [facility] Comment on above: Performed By: #### L IVER, BMP, LIPA, EDSON #### [facility] [address] [place] [address] Dr. Julia Velasquez CBC AUTO DIFFon 12-11-2022 BASO # 0.1 103/ul Normal 0.0-0.1 [facility] Comment on above: Performed By: #### C MP #### [facility] [address] [place] [address] Dr. Julia Velasquez Basophils/100 WBC (Bld) 0.4 % Normal 0.2-2.0 [facility] Comment on above: Performed By: #### C MP #### [facility] [address] [place] [address] Dr. Julia Velasquez EO # 0.0 103/ul Normal 0.0-0.7 [facility] Comment on above: Performed By: #### C MP #### [facility] [address] [place] [address] Dr. Julia Velasquez Eosinophils/100 WBC (Bld) 0.0 % Critically low 0.9-7.0 [facility] Comment on above: Performed By: #### C MP #### [facility] [address] [place] [address] Dr. uJlia Velasquez Erythrocyte distribution width (RBC) [Ratio] 15.9 % Critically high 11.0-15.0 [facility] Comment on above: Performed By: #### C MP #### [facility] [address] [place] [address] Dr. Julia Velsaquez Hematocrit (Bld) [Volume fraction] 34.4 % Critically low 36.0-48.0 [facility] Comment on above: Performed By: #### C MP #### [facility] [address] [place] [address] Dr. Julia Velasquez Hemoglobin (Bld) [Mass/Vol] 11.1 g/dL Critically low 12.0-16.0 [facility] Comment on above: Performed By: #### C MP #### [facility] [address] [place] [address] Dr. Julia Velasquez IG # 0.75 10e3/ul Critically high 0.00-0.03 [facility] Comment on above: Performed By: #### C MP #### [facility] [address] [place] [address] Dr. Julia Velasquez IG % 2.7 % Critically high 0.0-0.5 [facility] Comment on above: Performed By: #### C MP #### [facility] [address] [place] [address] Dr. Julia Velasquez LYMPH # 0.7 103/ul Critically low 1.2-3.8 [facility] Comment on above: Performed By: #### C MP #### [facility] [address] [place] [address] Dr. Julia Velaqsuez Lymphocytes/100 WBC (Bld) 2.4 % Critically low 20.5-60.0 [facility] Comment on above: Performed By: #### C MP #### [facility] [address] [place] [address] Dr. Julia Velasquez MANUAL DIFF REQ NO Normal [facility] Comment on above: Performed By: #### C MP #### [facility] [address] [place] [address] Dr. Julia Velasquez MCH (RBC) [Entitic mass] 29.2 pg Normal 26.7-34.0 [facility] Comment on above: Performed By: #### C MP #### [facility] [address] [place] [address] Dr. Julia Velasquez MCHC (RBC) [Mass/Vol] 32.3 g/dL Normal 29.9-35.2 [facility] Comment on above: Performed By: #### C MP #### [facility] [address] [address] [address] Julia Velasquez MCV (RBC) [Entitic vol] 90.5 fL Normal 81.0-99.0 [facility] Comment on above: Performed By: #### C MP #### [facility] [address] [place] [address] Dr. Julia Velasquez MONO # 0.7 103/ul Normal 0.3-0.8 [facility] Comment on above: Performed By: #### C MP #### [facility] [address] [place] [address] Dr. Julia Velasquez Monocytes/100 WBC (Bld) 2.6 % Normal 1.7-12.0 [facility] Comment on above: Performed By: #### C MP #### [facility] [address] [place] [address] Dr. Julia Velasquez NEUT # 25.6 103/ul Critically high 1.4-6.5 [facility] Comment on above: Performed By: #### C MP #### [facility] [address] [place] [address] Dr. Julia Velasquez Neutrophils/100 WBC (Bld) 91.9 % Critically high 43.0-75.0 [facility] Comment on above: Performed By: #### C MP #### [facility] [address] [place] [address] Dr. Julia Velasquez Platelet mean volume (Bld) [Entitic vol] 11.1 fL Normal 9.5-13.5 [facility] Comment on above: Performed By: #### C MP #### [facility] [address] [place] [address] Dr. Julia Velasquez PLT 240 103/ul Normal 150-450 [facility] Comment on above: Performed By: #### C MP #### [facility] [address] [place] [address] Dr. Julia Velasquez RBC 3.80 106/ul Critically low 4.20-5.40 [facility] Comment on above: Performed By: #### C MP #### [facility] [address] [place] [address] Dr. Julia Velasquez WBC 27.9 103/ul Critically high 4.0-11.0 [facility] Comment on above: Performed By: #### C MP #### [facility] [address] [place] [address] Dr. Julia Velasquez CBC W MANUAL DIFFon 12-12-19 23 ATYPICAL LYMPH # Normal [facility] Comment on above: Performed By: #### L IVER, BMP, LIPA, EDSON #### [facility] [address] [place] [address] Dr. Julia Velasquez ATYPICAL LYMPH % Normal [facility] Comment on above: Performed By: #### L IVER, BMP, LIPA, EDSON #### [facility] [address] [place] [address] Dr. Julia Velasquez BAND # 3.0 103/ul Critically high 0.0-0.3 [facility] Comment on above: Performed By: #### L IVER, BMP, LIPA, EDSON #### [facility] [address] [place] [address] Dr. Julia Velasquez BAND % 9 % Critically high 0-5 [facility] Comment on above: Performed By: #### L IVER, BMP, LIPA, EDSON #### [facility] [address] [place] [address] Dr. Julia Velasquez BASOM # 0.00 103/ul Normal 0.00-0.10 [facility] Comment on above: Performed By: #### L IVER, BMP, LIPA, EDSON #### [facility] [address] [place] [address] Dr. Julia Velasquez BASOM % 0.0 % Critically low 0.2-2.0 [facility] Comment on above: Performed By: #### L IVER, BMP, LIPA, EDSON #### [facility] [address] [place] [address] Dr. Julia Velasquez BLAST # Normal [facility] Comment on above: Performed By: #### L IVER, BMP, LIPA, EDSON #### [facility] [address] [place] [address] Dr. Julia Velasquez BLAST % Normal [facility] Comment on above: Performed By: #### L IVER, BMP, LIPA, EDSON #### [facility] [address] [place] [address] Dr. Julia Velasquez CORRECTED WBC Normal 4.0-11.0 [facility] Comment on above: Performed By: #### L IVER, BMP, LIPA, EDSON #### [facility] [address] [place] [address] Dr. Julia Velasquez EOS # 0.00 103/ul Normal 0.00-0.70 [facility] Comment on above: Performed By: #### L IVER, BMP, LIPA, EDSON #### [facility] [address] [place] [address] Dr. Julia Velasquez EOS% 0.0 % Critically low 0.9-7.0 [facility] Comment on above: Performed By: #### L IVER, BMP, LIPA, EDSON #### [facility] [address] [place] [address] Dr. Julia Velasquez HCT 30.7 % Critically low 36.0-48.0 [facility] Comment on above: Performed By: #### L IVER, BMP, LIPA, EDSON #### [facility] [address] [place] [address] Dr. Julia Velasquez HGB 10.1 g/dl Critically low 12.0-16.0 [facility] Comment on above: Performed By: #### L IVER, BMP, LIPA, EDSON #### [facility] [address] [place] [address] Dr. Julia Velasquez LYMPHM # 0.67 103/ul Critically low 1.20-3.80 [facility] Comment on above: Performed By: #### L IVER, BMP, LIPA, EDSON #### [facility] [address] [address] [address] Julia Velasquez LYMPHM% 2.0 % Critically low 20.5-60.0 [facility] Comment on above: Performed By: #### L IVER, BMP, LIPA, EDSON #### [facility] [address] [place] [address] Dr. Julia Velasquez MCH 29.5 pg Normal 26.7-34.0 [facility] Comment on above: Performed By: #### L IVER, BMP, LIPA, EDSON #### [facility] [address] [place] [address] Dr. Julia Velasquez MCHC 32.9 g/dl Normal 29.9-35.2 [facility] Comment on above: Performed By: #### L IVER, BMP, LIPA, EDSON #### [facility] [address] [place] [address] Dr. Julia Velasquez MCV 89.8 fL Normal 81.0-99.0 [facility] Comment on above: Performed By: #### L IVER, BMP, LIPA, EDSON #### [facility] [address] [place] [address] Dr. Julia Velasquez METAMYELOCYTE # Normal [facility] Comment on above: Performed By: #### L IVER, BMP, LIPA, EDSON #### [facility] [address] [place] [address] Dr. Julia Velasquez METAMYELOCYTE % Normal [facility] Comment on above: Performed By: #### L IVER, BMP, LIPA, EDSON #### [facility] [address] [place] [address] Dr. Julia Velasquez MONOM# 0.33 103/ul Normal 0.30-0.80 [facility] Comment on above: Performed By: #### L IVER, BMP, LIPA, EDSON #### [facility] [address] [address] [address] Julia Velasquez MONOM% 1.0 % Critically low 1.7-12.0 [facility] Comment on above: Performed By: #### L IVER, BMP, LIPA, EDSON #### [facility] [address] [address] [address] Julia Velasquez MPV 10.1 fL Normal 9.5-13.5 [facility] Comment on above: Performed By: #### L IVER, BMP, LIPA, EDSON #### [facility] [address] [address] [address] Julia Velasquez MYELOCYTE # Normal [facility] Comment on above: Performed By: #### L IVER, BMP, LIPA, EDSON #### [facility] [address] [place] [address] Dr. Julia Velasquez MYELOCYTE % Normal [facility] Comment on above: Performed By: #### L IVER, BMP, LIPA, EDSON #### [facility] [address] [place] [address] Dr. Julia Velasquez NRBC Normal [facility] Comment on above: Performed By: #### L IVER, BMP, LIPA, EDSON #### [facility] [address] [address] [address] Julia Velasquez PLT 256 103/ul Normal 150-450 [facility] Comment on above: Performed By: #### L IVER, BMP, LIPA, EDSON #### [facility] [address] [address] [address] Julia Velasquez RBC 3.42 106/ul Critically low 4.20-5.40 [facility] Comment on above: Performed By: #### L IVER, BMP, LIPA, EDSON #### [facility] [address] [place] [address] Dr. Julia Velasquez RDW 15.9 % Critically high 11.0-15.0 [facility] Comment on above: Performed By: #### L IVER, BMP, LIPA, EDSON #### [facility] [address] [place] [address] Dr. Julia Velasquez SEG # 29.39 103/ul Critically high 1.40-6.50 [facility] Comment on above: Performed By: #### L NANCY MONDRAGON, RAY, EDSON #### [facility] [address] [place] [address] Dr. Julia Velasquez SEG % 88.0 % Critically high 43.0-75.0 [facility] Comment on above: Performed By: #### L IVER, NANCY, LIPA, EDSON #### [facility] [address] [place] [address] Dr. Julia Velasquez WBC 33.4 103/ul Critically high 4.0-11.0 [facility] Comment on above: Performed By: #### L NANCY MONDRAGON LIPA, EDSON #### [facility] [address] [place] [address] Dr. Julia Velasquez CULTURE BLOODon 12-11-2022 Microscopic examination of blood, culture Culture Observations: NO GROWTH AT 5 DAYS. Normal [facility] Comment on above: Performed By: #### C MP #### [facility] [address] [place] [address] Dr. Julia Velasquez Microscopic examination of blood, culture Culture Observations: NO GROWTH AT 5 DAYS. Normal [facility] Comment on above: Performed By: #### C MP #### [facility] [address] [place] [address] Dr. Julia Velasquez PROF 14(COMP METB)on 023 Albumin [Mass/Vol] 1.9 g/dL Critically low 3.4-5.0 [facility] Comment on above: Performed By: #### C MP #### [facility] [address] [place] [address] Dr. Julia Velasquez Albumin/Globulin [Mass ratio] 0.5 {ratio} Normal [facility] Comment on above: Performed By: #### C MP #### [facility] [address] [place] [address] Dr. Julia Velasquez ALP [Catalytic activity/Vol] 94 U/L Normal 46-116 [facility] Comment on above: Performed By: #### C MP #### [facility] [address] [address] [address] Julia Velasquez ALT [Catalytic activity/Vol] 34 U/L Normal 14-59 [facility] Comment on above: Performed By: #### C MP #### [facility] [address] [address] [address] Julia Velasquez Anion gap [Moles/Vol] 19.9 mmol/L Normal [facility] Comment on above: Performed By: #### C MP #### [facility] [address] [address] [address] Julia Velasquez AST [Catalytic activity/Vol] 82 U/L Critically high 15-37 [facility] Comment on above: Performed By: #### C MP #### [facility] [address] [address] [address] Julia Velasquez Bilirubin [Mass/Vol] 3.0 mg/dL Critically high 0.2-1.0 [facility] Comment on above: Performed By: #### C MP #### [facility] [address] [address] [address] Julia Velasquez Calcium [Mass/Vol] 8.2 mg/dL Critically low 8.5-10.1 [facility] Comment on above: Performed By: #### C MP #### [facility] [address] [address] [address] Julia Velasquez Chloride [Moles/Vol] 112 mmol/L Critically high 98-107 [facility] Comment on above: Performed By: #### C MP #### [facility] [address] [address] [address] Julia Velasquez CO2 [Moles/Vol] 18.7 mmol/L Critically low 21.0-32.0 [facility] Comment on above: Performed By: #### C MP #### [facility] [address] [address] [address] Julia Velasquez Creatinine [Mass/Vol] 1.75 mg/dL Critically high 0.55-1.02 [facility] Comment on above: Performed By: #### C MP #### [facility] [address] [address] [address] Julia Velasquez EGFR-AF GIBRALTARIAN 34 mL/min/1.73m2 Critically low >=60 [facility] Comment on above: Performed By: #### C MP #### [facility] [address] [address] [address] Julia Velasquez EGFR-NON AF GIBRALTARIAN 28 mL/min/1.73m2 Critically low >=60 [facility] Comment on above: Performed By: #### C MP #### [facility] [address] [address] [address] Julia Velasquez Globulin (S) [Mass/Vol] 3.6 g/dL Normal [facility] Comment on above: Performed By: #### C MP #### [facility] [address] [address] [address] Julia Velasquez Glucose [Mass/Vol] 95 mg/dL Normal 74-[address] [facility] Comment on above: Performed By: #### C MP #### [facility] [address] [address] [address] Julia Velasquez Potassium [Moles/Vol] 4.6 mmol/L Normal 3.5-5.1 [facility] Comment on above: Performed By: #### C MP #### [facility] [address] [address] [address] Julia Velasquez Protein [Mass/Vol] 5.5 g/dL Critically low 6.4-8.2 [facility] Comment on above: Performed By: #### C MP #### [facility] [address] [address] [address] Julia Velasquez Sodium [Moles/Vol] 146 mmol/L Critically high 136-145 [facility] Comment on above: Performed By: #### C MP #### [facility] [address] [address] [address] Julia Velasquez Urea nitrogen [Mass/Vol] 58.0 mg/dL Critically high 7.0-18.0 [facility] Comment on above: Performed By: #### C MP #### [facility] [address] [address] [address] Julia Velasquez Urea nitrogen/Creatinine [Mass ratio] 33.1 mg/mg Normal [facility] Comment on above: Performed By: #### C MP #### [facility] [address] [address] [address] Julia Velasquez XR CHEST 12-11-2022 XR CHEST 2 V EXAMINATION: XR ABD FLAT_UP, XR CHEST 2 V HISTORY: NAUSEA WITH VOMITING, UNSPECIFIED , abdominal pain, acute cough, loss of appetite COMPARISON: XR abdomen 11/05/2019, XR chest 11/05/2019 FINDINGS: LUNGS: Marked increased density of the majority of the right upper lobe with patent bronchi and within the lobe. Blunting of right lateral costophrenic angle. Left lung is well-expanded and clear. MEDIASTINUM: No abnormal widening. BOWEL GAS PATTERN: Non-obstructed. No abnormal dilation or suspicious fluid levels. FREE AIR: None. CALCIFICATIONS: None significant. BONES: No fracture or visible bone lesion. Degenerative disc disease of lumbar spine. OTHER: Negative. IMPRESSION: 1. Marked right upper lobe pneumonia versus central bronchial obstruction with peripheral atelectasis. 2. Small right pleural effusion versus basilar infiltrates. 3. Unremarkable abdomen. 4. Degenerative disc disease of lumbar spine. Electronically authenticated by: BUCKY CRAIG Date: 2022-12-11 11:52 Normal [facility] CBC W MANUAL DIFFon 12-11-19 23 ATYPICAL LYMPH # 0.18 103/ul Normal [facility] Comment on above: Performed By: #### C BRYNN #### [facility] [address] [address] [address] Julia Velasquez ATYPICAL LYMPH % 1 % Normal [facility] Comment on above: Performed By: #### C BRYNN #### [facility] [address] [address] [address] Julia Velasquez BAND # 0.0 103/ul Normal 0.0-0.3 [facility] Comment on above: Performed By: #### C BRYNN #### [facility] [address] [address] [address] Julia Velasquez BAND % 0 % Normal 0-5 [facility] Comment on above: Performed By: #### C BCJACKLYN #### [facility] [address] [address] [address] Julia Velasquez BASOM # 0.00 103/ul Normal 0.00-0.10 [facility] Comment on above: Performed By: #### C BCJACKLYN #### [facility] [address] [place] [address] Dr. Julia Velasquez BASOM % 0.0 % Critically low 0.2-2.0 [facility] Comment on above: Performed By: #### C BCJACKLYN #### [facility] [address] [place] [address] Dr. Julia Velasquez BLAST # Normal [facility] Comment on above: Performed By: #### C BRYNN #### [facility] [address] [place] [address] Dr. Julia Velasquez BLAST % Normal [facility] Comment on above: Performed By: #### C BRYNN #### [facility] [address] [place] [address] Dr. Julia Velasquez CORRECTED WBC Normal 4.0-11.0 [facility] Comment on above: Performed By: #### C BRYNN #### [facility] [address] [place] [address] Dr. Julia Velasquez EOS # 0.00 103/ul Normal 0.00-0.70 [facility] Comment on above: Performed By: #### C BRYNN #### [facility] [address] [place] [address] Dr. Julia Velasquez EOS% 0.0 % Critically low 0.9-7.0 [facility] Comment on above: Performed By: #### C BRYNN #### [facility] [address] [place] [address] Dr. Julia Velasquez HCT 31.8 % Critically low 36.0-48.0 [facility] Comment on above: Performed By: #### C BRYNN #### [facility] [address] [place] [address] Dr. Julia Velasquez HGB 10.4 g/dl Critically low 12.0-16.0 [facility] Comment on above: Performed By: #### C BRYNN #### [facility] [address] [address] [address] Jluia Velasquez LYMPHM # 0.35 103/ul Critically low 1.20-3.80 [facility] Comment on above: Performed By: #### C BRYNN #### [facility] [address] [address] [address] Julia Velasquez LYMPHM% 2.0 % Critically low 20.5-60.0 [facility] Comment on above: Performed By: #### C BRYNN #### [facility] [address] [place] [address] Dr. Julia Velasquez MCH 29.3 pg Normal 26.7-34.0 [facility] Comment on above: Performed By: #### C BRYNN #### [facility] [address] [place] [address] Dr. Julia Velasquez MCHC 32.7 g/dl Normal 29.9-35.2 [facility] Comment on above: Performed By: #### C BRYNN #### [facility] [address] [place] [address] Dr. Julia Velasquez MCV 89.6 fL Normal 81.0-99.0 [facility] Comment on above: Performed By: #### C BRYNN #### [facility] [address] [place] [address] Dr. Julia Velasquez METAMYELOCYTE # Normal [facility] Comment on above: Performed By: #### C BRYNN #### [facility] [address] [place] [address] Dr. Julia Velasquez METAMYELOCYTE % Normal [facility] Comment on above: Performed By: #### C BRYNN #### [facility] [address] [place] [address] Dr. Julia Velasquez MONOM# 0.88 103/ul Critically high 0.30-0.80 [facility] Comment on above: Performed By: #### C BRYNN #### [facility] [address] [place] [address] Dr. Julia Velasquez MONOM% 5.0 % Normal 1.7-12.0 [facility] Comment on above: Performed By: #### C BRYNN #### [facility] [address] [place] [address] Dr. Julia Velasquez MPV 10.6 fL Normal 9.5-13.5 [facility] Comment on above: Performed By: #### C BRYNN #### [facility] [address] [place] [address] Dr. Julia Velasquez MYELOCYTE # Normal [facility] Comment on above: Performed By: #### C BRYNN #### [facility] [address] [place] [address] Dr. Julia Velasquez MYELOCYTE % Normal [facility] Comment on above: Performed By: #### C BRYNN #### [facility] [address] [place] [address] Dr. Julia Velasquez NRBC Normal [facility] Comment on above: Performed By: #### C BRYNN #### [facility] [address] [place] [address] Dr. Julia Velasquez PLT 231 103/ul Normal 150-450 [facility] Comment on above: Performed By: #### C BRYNN #### [facility] [address] [place] [address] Dr. Julia Velasquez RBC 3.55 106/ul Critically low 4.20-5.40 [facility] Comment on above: Performed By: #### C BRYNN #### [facility] [address] [place] [address] Dr. Julia Velasquez RDW 15.1 % Critically high 11.0-15.0 [facility] Comment on above: Performed By: #### C BRYNN #### [facility] [address] [place] [address] Dr. Julia Velasquez SEG # 16.19 103/ul Critically high 1.40-6.50 [facility] Comment on above: Performed By: #### C BRYNN #### [facility] [address] [place] [address] Dr. Julia Velasquez SEG % 92.0 % Critically high 43.0-75.0 [facility] Comment on above: Performed By: #### C BRYNN #### [facility] [address] [address] [address] Julia Velasquez WBC 17.6 103/ul Critically high 4.0-11.0 [facility] Comment on above: Performed By: #### C BRYNN #### [facility] [address] [address] [address] Julia Velasquez FERRITINon 12-10-2022 Ferritin [Mass/Vol] 450.0 ng/mL Critically high 8.0-252.0 [facility] Comment on above: Performed By: #### C MP #### [facility] [address] [place] [address] Dr. Julia Velasquez IRON AND TIBCon 12-10-2022 % SATURATION 5.6 % Normal [facility] Comment on above: Performed By: #### C MP #### [facility] [address] [place] [address] Dr. Julia Velasquez Iron [Mass/Vol] 11.0 ug/dL Critically low 50.0-170.0 [facility] Comment on above: Performed By: #### C MP #### [facility] [address] [place] [address] Dr. Julia Velasquez TIBC DIRECT 195.0 ug/dL Critically low 250.0-450.0 [facility] Comment on above: Performed By: #### C MP #### [facility] [address] [place] [address] Dr. Julia Velasquez PROF 14(COMP METB)on 023 Albumin [Mass/Vol] 2.0 g/dL Critically low 3.4-5.0 [facility] Comment on above: Performed By: #### C MP #### [facility] [address] [place] [address] Dr. Julia Velasquez Albumin/Globulin [Mass ratio] 0.4 {ratio} Normal [facility] Comment on above: Performed By: #### C MP #### [facility] [address] [address] [address] Julia Velasquez ALP [Catalytic activity/Vol] 87 U/L Normal 46-116 [facility] Comment on above: Performed By: #### C MP #### [facility] [address] [place] [address] Dr. Julia Velasquez ALT [Catalytic activity/Vol] 32 U/L Normal 14-59 [facility] Comment on above: Performed By: #### C MP #### [facility] [address] [address] [address] Julia Velasquez Anion gap [Moles/Vol] 16.2 mmol/L Normal [facility] Comment on above: Performed By: #### C MP #### [facility] [address] [place] [address] Dr. Julia Velasquez AST [Catalytic activity/Vol] 50 U/L Critically high 15-37 [facility] Comment on above: Performed By: #### C MP #### [facility] [address] [place] [address] Dr. Julia Velasquez Bilirubin [Mass/Vol] 1.7 mg/dL Critically high 0.2-1.0 [facility] Comment on above: Performed By: #### C MP #### [facility] [address] [place] [address] Dr. Julia Velasquez Calcium [Mass/Vol] 8.6 mg/dL Normal 8.5-10.[address] [facility] Comment on above: Performed By: #### C MP #### [facility] [address] [place] [address] Dr. Julia Velasquez Chloride [Moles/Vol] 107 mmol/L Normal 98-107 [facility] Comment on above: Performed By: #### C MP #### [facility] [address] [place] [address] Dr. Julia Velasquez CO2 [Moles/Vol] 22.1 mmol/L Normal 21.0-32.0 [facility] Comment on above: Performed By: #### C MP #### [facility] [address] [place] [address] Dr. Julia Velasquez Creatinine [Mass/Vol] 2.38 mg/dL Critically high 0.55-1.02 [facility] Comment on above: Performed By: #### C MP #### [facility] [address] [address] [address] Julia Velasquez EGFR-AF GIBRALTARIAN 24 mL/min/1.73m2 Critically low >=60 [facility] Comment on above: Performed By: #### C MP #### [facility] [address] [address] [address] Julia Velasquez EGFR-NON AF GIBRALTARIAN 20 mL/min/1.73m2 Critically low >=60 [facility] Comment on above: Performed By: #### C MP #### [facility] [address] [address] [address] Julia Velasquez Globulin (S) [Mass/Vol] 4.7 g/dL Normal [facility] Comment on above: Performed By: #### C MP #### [facility] [address] [place] [address] Dr. Julia Velasquez Glucose [Mass/Vol] 116 mg/dL Critically high 74-106 [facility] Comment on above: Performed By: #### C MP #### [facility] [address] [address] [address] Julia Velasquez Potassium [Moles/Vol] 3.3 mmol/L Critically low 3.5-5.1 [facility] Comment on above: Performed By: #### C MP #### [facility] [address] [address] [address] Julia Velasquez Protein [Mass/Vol] 6.7 g/dL Normal 6.4-8.2 [facility] Comment on above: Performed By: #### C MP #### [facility] [address] [address] [address] Julia Velasquez Sodium [Moles/Vol] 142 mmol/L Normal 136-[address] [facility] Comment on above: Performed By: #### C MP #### [facility] [address] [address] [address] Julia Velasquez Urea nitrogen [Mass/Vol] 57.0 mg/dL Critically high 7.0-18.0 [facility] Comment on above: Performed By: #### C MP #### [facility] [address] [place] [address] Dr. Julia Velasquez Urea nitrogen/Creatinine [Mass ratio] 23.9 mg/mg Normal [facility] Comment on above: Performed By: #### C MP #### [facility] [address] [place] [address] Dr. Julia Velasquez AMYLASEon 12-09-2022 Amylase [Catalytic activity/Vol] 18 U/L Critically low 25-115 [facility] Comment on above: Performed By: #### L IVER, BMP, LIPA, EDSON #### [facility] [address] [place] [address] Dr. Julia Velasquez CBC W MANUAL DIFFon 12-10-19 ATYPICAL LYMPH # Normal [facility] Comment on above: Performed By: #### C MP #### [facility] [address] [place] [address] Dr. Julia Velasquez ATYPICAL LYMPH % Normal [facility] Comment on above: Performed By: #### C MP #### [facility] [address] [place] [address] Dr. Julia Velasquez BAND # 0.8 103/ul Critically high 0.0-0.3 [facility] Comment on above: Performed By: #### C MP #### [facility] [address] [place] [address] Dr. Julia Velasquez BAND % 4 % Normal 0-5 [facility] Comment on above: Performed By: #### C MP #### [facility] [address] [place] [address] Dr. Julia Velasquez BASOM # 0.00 103/ul Normal 0.00-0.10 [facility] Comment on above: Performed By: #### C MP #### [facility] [address] [place] [address] Dr. Julia Velasquez BASOM % 0.0 % Critically low 0.2-2.0 [facility] Comment on above: Performed By: #### C MP #### [facility] [address] [address] [address] Julia Velasquez BLAST # Normal [facility] Comment on above: Performed By: #### C MP #### [facility] [address] [place] [address] Dr. Julia Velasquez BLAST % Normal [facility] Comment on above: Performed By: #### C MP #### [facility] [address] [address] [address] Julia Velasquez CORRECTED WBC Normal 4.0-11.0 [facility] Comment on above: Performed By: #### C MP #### [facility] [address] [place] [address] Dr. Julia Velasquez EOS # 0.00 103/ul Normal 0.00-0.70 [facility] Comment on above: Performed By: #### C MP #### [facility] [address] [place] [address] Dr. Julia Velasquez EOS% 0.0 % Critically low 0.9-7.0 [facility] Comment on above: Performed By: #### C MP #### [facility] [address] [place] [address] Dr. Julia Velasquez HCT 27.2 % Critically low 36.0-48.0 [facility] Comment on above: Performed By: #### C MP #### [facility] [address] [place] [address] Dr. Julia Velasquez HGB 8.9 g/dl Critically low 12.0-16.0 [facility] Comment on above: Performed By: #### C MP #### [facility] [address] [place] [address] Dr. Julia Velasquez LYMPHM # 0.99 103/ul Critically low 1.20-3.80 [facility] Comment on above: Performed By: #### C MP #### [facility] [address] [place] [address] Dr. Julia Velasquez LYMPHM% 5.0 % Critically low 20.5-60.0 [facility] Comment on above: Performed By: #### C MP #### [facility] [address] [address] [address] Julia Velasquez MCH 29.3 pg Normal 26.7-34.0 [facility] Comment on above: Performed By: #### C MP #### [facility] [address] [address] [address] Julia Velasquez MCHC 32.7 g/dl Normal 29.9-35.2 [facility] Comment on above: Performed By: #### C MP #### [facility] [address] [place] [address] Dr. Julia Velasquez MCV 89.5 fL Normal 81.0-99.0 [facility] Comment on above: Performed By: #### C MP #### [facility] [address] [place] [address] Dr. Julia Velasquez METAMYELOCYTE # Normal [facility] Comment on above: Performed By: #### C MP #### [facility] [address] [place] [address] Dr. Julia Velasquez METAMYELOCYTE % Normal [facility] Comment on above: Performed By: #### C MP #### [facility] [address] [place] [address] Dr. Julia Velasquez MONOM# 0.59 103/ul Normal 0.30-0.80 [facility] Comment on above: Performed By: #### C MP #### [facility] [address] [place] [address] Dr. Julia Velasquez MONOM% 3.0 % Normal 1.7-12.0 [facility] Comment on above: Performed By: #### C MP #### [facility] [address] [place] [address] Dr. Julia Velasquez MPV 10.9 fL Normal 9.5-13.5 [facility] Comment on above: Performed By: #### C MP #### [facility] [address] [place] [address] Dr. Julia Velasquez MYELOCYTE # Normal [facility] Comment on above: Performed By: #### C MP #### [facility] [address] [address] [address] Julia Velasquez MYELOCYTE % Normal [facility] Comment on above: Performed By: #### C MP #### [facility] [address] [place] [address] [address] Julia Velasquez NRBC Normal [facility] Comment on above: Performed By: #### C MP #### [facility] [address] [place] [address] [address] Julia Velasquez PLT 268 103/ul Normal 150-450 [facility] Comment on above: Performed By: #### C MP #### [facility] [address] [address] [address] Julia Velasquez RBC 3.04 106/ul Critically low 4.20-5.40 [facility] Comment on above: Performed By: #### C MP #### [facility] [address] [place] [address] Dr. Julia Velasquez RDW 15.0 % Normal 11.0-15.0 [facility] Comment on above: Performed By: #### C MP #### [facility] [address] [place] [address] [address] Julia Velasquez SEG # 17.42 103/ul Critically high 1.40-6.50 [facility] Comment on above: Performed By: #### C MP #### [facility] [address] [place] [address] Dr. Julia Velasquez SEG % 88.0 % Critically high 43.0-75.0 [facility] Comment on above: Performed By: #### C MP #### [facility] [address] [place] [address] Dr. Julia Velasquez WBC 19.8 103/ul Critically high 4.0-11.0 [facility] Comment on above: Performed By: #### C MP #### [facility] [address] [place] [address] ABD/PELVIS WO CONon 12-09 CT ABD/PELVIS WO CON EXAM: CT scan of th e abdomen and pelvis without contrast. Dose reduction technique used: Automated exposure control and/or adjustment of the mA and/or kV according to patient size and/or use of iterative reconstruction technique. REASON FOR EXAM: Nausea/vomiting, generalized abdominal pain COMPARISON: CT scan dated 01/16/2020 FINDINGS: Multilevel spinal canal stenoses, moderate or severe at the L3-L4 and L4-5 levels. Moderate-sized esophageal hiatal hernia. Colonic diverticulosis. No renal, ureteral or bladder calculi. No hydronephrosis. No evidence of appendicitis. No free intraperitoneal air. No free fluid in the abdomen or pelvis. No dilated or thickened loops of small bowel or colon. Liver, pancreas, spleen, bilateral kidneys, and bilateral adrenal glands are otherwise unremarkable within the limitations of noncontrast CT. No lymphadenopathy in the abdomen or pelvis. Remainder unremarkable. IMPRESSION: 1. No acute abnormalities in the abdomen or pelvis. 2. L3-L4 and L4-5 spinal canal stenoses are moderate or severe. Electronically authenticated by: RAKESH MANNING Date: 2022-12-09 19:43 Normal [facility] CT FACIAL BONES WO CONon CT FACIAL BONES WO CON EXAMINATION: CT FACIAL BONES WO CON HISTORY: ATYPICAL FACIAL PAIN COMPARISON: None. TECHNIQUE: CT examination of the facial bones without IV contrast. Coronal and sagittal reformations were performed. Dose reduction techniques were achieved by using automated exposure control and/or adjustment of mA and/or kV according to patient size and/or use of iterative reconstruction technique. FINDINGS: Streak artifact from the implanted teeth limited evaluation of the adjacent soft tissues and bones. However, no acute fracture is seen. There is no soft tissue swelling. Paranasal sinuses are unremarkable. The orbits are normal. Visualized brain parenchyma are unremarkable. No suspicious bone lesion. IMPRESSION: No acute process Electronically authenticated by: KELVIN MCLAUGHLIN Date: 2022-12-09 20:18 Normal [facility] Cov[facility] ([facility])on SARS-CoV-2 (COVID-19) RNA MARIO+probe Ql (Unsp spec) Not detected Normal NOT DETECTED [facility] Comment on above: Result Comment: When diagnostic testing is negative, the possibility of a false negative should be considered in the context of a patient's recent exposures and the presence of clinical signs and symptoms consistent with SARS-CoV-2. This test is not yet approved or cleared by the [place] FDA. When there are no FDA-approved or cleared tests available, and other criteria are met, FDA can make tests available under an emergency access mechanism called an Emergency Use Authorization (EUA). The EUA for this test is supported by the [place] of Health and Human Service's declaration that circumstances exist to justify the emergency use of in vitro diagnostics for the detection and/or diagnosis of the virus that causes COVID-19. This EUA will remain in effect for the duration of the COVID-19 declaration justifying emergency of IVDs, unless it is terminated or revoked by the FDA (after which the test may no longer be used). Performed By: #### L IVER, BMP, LIPA, EDSON #### [facility] [address] [place] [address] Dr. Julia Velasquez LIPASEon 12-09-2022 Lipase [Catalytic activity/Vol] 86.0 U/L Normal 73.0-393.0 [facility] Comment on above: Performed By: #### L IVER, BMP, LIPA, EDSON #### [facility] [address] [place] [address] Dr. Julia Velasquez LIVER PROFILEon 12-09-2022 Albumin [Mass/Vol] 2.4 g/dL Critically low 3.4-5.0 [facility] Comment on above: Performed By: #### L IVER, BMP, LIPA, EDSON #### [facility] [address] [place] [address] Dr. Julia Velasquez Albumin/Globulin [Mass ratio] 0.5 {ratio} Normal [facility] Comment on above: Performed By: #### L IVER, BMP, LIPA, EDSON #### [facility] [address] [place] [address] Dr. Julia Velasquez ALP [Catalytic activity/Vol] 104 U/L Normal 46-116 [facility] Comment on above: Performed By: #### L IVER, BMP, LIPA, EDSON #### [facility] [address] [place] [address] Dr. Julia Velasquez ALT [Catalytic activity/Vol] 35 U/L Normal 14-59 [facility] Comment on above: Performed By: #### L IVER, BMP, LIPA, EDSON #### [facility] [address] [place] [address] Dr. Julia Velasquez AST [Catalytic activity/Vol] 59 U/L Critically high 15-37 [facility] Comment on above: Performed By: #### L IVER, BMP, LIPA, EDSON #### [facility] [address] [place] [address] Dr. Julia Velasquez BILI, CONJUGATED 1.0 mg/dL Critically high 0.0-0.2 [facility] Comment on above: Performed By: #### L IVER, BMP, LIPA, EDSON #### [facility] [address] [place] [address] Dr. Julia Velasquez Bilirubin [Mass/Vol] 1.9 mg/dL Critically high 0.2-1.0 [facility] Comment on above: Performed By: #### L IVER, BMP, LIPA, EDSON #### [facility] [address] [place] [address] Dr. Julia Velasquez Globulin (S) [Mass/Vol] 5.0 g/dL Normal [facility] Comment on above: Performed By: #### L IVER, BMP, LIPA, EDSON #### [facility] [address] [place] [address] Dr. Julia Velasquez Protein [Mass/Vol] 7.4 g/dL Normal 6.4-8.[address] [facility] Comment on above: Performed By: #### L IVER, BMP, LIPA, EDSON #### [facility] [address] [place] [address] Dr. Julia Velasquez OCC BLD IMMUNOASSAYon 2022 OCCULT BLOOD Negative Normal NEGATIVE [facility] Comment on above: Performed By: #### L IVER, BMP, LIPA, EDSON #### [facility] [address] [place] [address] Dr. Julia Velasquez PROF CHEM 8 (BAS METB)on Anion gap [Moles/Vol] 18.8 mmol/L Normal [facility] Comment on above: Performed By: #### L IVER, BMP, LIPA, EDSON #### [facility] [address] [place] [address] Dr. Julia Velasquez Calcium [Mass/Vol] 9.2 mg/dL Normal 8.5-10.[address] [facility] Comment on above: Performed By: #### L IVER, BMP, LIPA, EDSON #### [facility] [address] [place] [address] Dr. Julia Velasquez Chloride [Moles/Vol] 100 mmol/L Normal 98-107 [facility] Comment on above: Performed By: #### L IVER, BMP, LIPA, EDSON #### [facility] [address] [place] [address] Dr. Julia Velasquez CO2 [Moles/Vol] 24.3 mmol/L Normal 21.0-32.0 [facility] Comment on above: Performed By: #### L IVER, BMP, LIPA, EDSON #### [facility] [address] [place] [address] Dr. Julia Velasquez Creatinine [Mass/Vol] 2.98 mg/dL Critically high 0.55-1.02 [facility] Comment on above: Performed By: #### L IVER, BMP, LIPA, EDSON #### [facility] [address] [place] [address] Dr. Julia Velasquez EGFR-AF GIBRALTARIAN 18 mL/min/1.73m2 Critically low >=60 [facility] Comment on above: Performed By: #### L IVER, BMP, LIPA, EDSON #### [facility] [address] [place] [address] Dr. Julia Velasquez EGFR-NON AF GIBR[place]IAN 15 mL/min/1.73m2 Critically low >=60 [facility] Comment on above: Performed By: #### L IVER, BMP, LIPA, EDSON #### [facility] [address] [place] [address] Dr. Julia Velasquez Glucose [Mass/Vol] 116 mg/dL Critically high 74-106 [facility] Comment on above: Performed By: #### L IVER, BMP, LIPA, EDSON #### [facility] [address] [place] [address] Dr. Julia Velasquez Potassium [Moles/Vol] 4.1 mmol/L Normal 3.5-5.1 [facility] Comment on above: Performed By: #### L IVER, BMP, LIPA, EDSON #### [facility] [address] [place] [address] Dr. Julia Velasquez Sodium [Moles/Vol] 139 mmol/L Normal 136-[address] [facility] Comment on above: Performed By: #### L IVER, BMP, LIPA, EDSON #### [facility] [address] [place] [address] Dr. Julia Velasquez Urea nitrogen [Mass/Vol] 57.0 mg/dL Critically high 7.0-18.0 [facility] Comment on above: Performed By: #### L IVER, BMP, LIPA, EDSON #### [facility] [address] [place] [address] Dr. Julia Velasquez Urea nitrogen/Creatinine [Mass ratio] 19.1 mg/mg Normal [facility] Comment on above: Performed By: #### L IVER, BMP, LIPA, EDSON #### [facility] [address] [place] [address] Dr. Julia Velasquez CBC AUTO DIFFon 08-26-2022 BASO # 0.0 103/ul Normal 0.0-0.1 [facility] Comment on above: Performed By: #### L IVER, BMP, LIPA, EDSON #### [facility] [address] [place] [address] Dr. Julia Velasquez Basophils/100 WBC (Bld) 0.6 % Normal 0.2-2.0 [facility] Comment on above: Performed By: #### L IVER, BMP, LIPA, EDSON #### [facility] [address] [place] [address] Dr. Julia Velasquez EO # 0.3 103/ul Normal 0.0-0.7 [facility] Comment on above: Performed By: #### L IVER, BMP, LIPA, EDSON #### [facility] [address] [place] [address] Dr. Julia Velasquez Eosinophils/100 WBC (Bld) 4.9 % Normal 0.9-7.0 [facility] Comment on above: Performed By: #### L IVER, BMP, LIPA, EDSON #### [facility] [address] [place] [address] Dr. Julia Velasquez Erythrocyte distribution width (RBC) [Ratio] 13.2 % Normal 11.0-15.0 [facility] Comment on above: Performed By: #### L IVER, BMP, LIPA, EDSON #### [facility] [address] [place] [address] Dr. Julia Velasquez Hematocrit (Bld) [Volume fraction] 40.9 % Normal 36.0-48.0 [facility] Comment on above: Performed By: #### L IVER, BMP, LIPA, EDSON #### [facility] [address] [place] [address] Dr. Julia Velasquez Hemoglobin (Bld) [Mass/Vol] 13.0 g/dL Normal 12.0-16.0 [facility] Comment on above: Performed By: #### L IVER, BMP, LIPA, EDSON #### [facility] [address] [place] [address] Dr. Julia Velasquez IG # 0.05 10e3/ul Critically high 0.00-0.03 [facility] Comment on above: Performed By: #### L IVER, BMP, LIPA, EDSON #### [facility] [address] [place] [address] Dr. Julia Velasquez IG % 1.0 % Critically high 0.0-0.5 [facility] Comment on above: Performed By: #### L IVER, BMP, LIPA, EDSON #### [facility] [address] [place] [address] Dr. Julia Velasquez LYMPH # 1.3 103/ul Normal 1.2-3.8 [facility] Comment on above: Performed By: #### L IVER, BMP, LIPA, EDSON #### [facility] [address] [place] [address] Dr. Julia Velasquez Lymphocytes/100 WBC (Bld) 26.1 % Normal 20.5-60.0 [facility] Comment on above: Performed By: #### L IVER, BMP, LIPA, EDSON #### [facility] [address] [place] [address] Dr. Julia Velasquez MANUAL DIFF REQ NO Normal [facility] Comment on above: Performed By: #### L IVER, BMP, LIPA, EDSON #### [facility] [address] [place] [address] Dr. Julia Velasquez MCH (RBC) [Entitic mass] 29.6 pg Normal 26.7-34.0 [facility] Comment on above: Performed By: #### L IVER, BMP, LIPA, EDSON #### [facility] [address] [place] [address] Dr. Julia Velasquez MCHC (RBC) [Mass/Vol] 31.8 g/dL Normal 29.9-35.2 [facility] Comment on above: Performed By: #### L IVER, BMP, LIPA, EDSON #### [facility] [address] [place] [address] Dr. Julia Velasquez MCV (RBC) [Entitic vol] 93.2 fL Normal 81.0-99.0 [facility] Comment on above: Performed By: #### L IVER, BMP, LIPA, EDSON #### [facility] [address] [place] [address] Dr. Julia Velasquez MONO # 0.4 103/ul Normal 0.3-0.8 [facility] Comment on above: Performed By: #### L IVER, BMP, LIPA, EDSON #### [facility] [address] [place] [address] Dr. Julia Velasquez Monocytes/100 WBC (Bld) 7.7 % Normal 1.7-12.0 [facility] Comment on above: Performed By: #### L IVER, BMP, LIPA, EDSON #### [facility] [address] [place] [address] Dr. Julia Velasquez NEUT # 3.0 103/ul Normal 1.4-6.5 [facility] Comment on above: Performed By: #### L IVER, BMP, LIPA, EDSON #### [facility] [address] [address] [address] Julia Velasquez Neutrophils/100 WBC (Bld) 59.7 % Normal 43.0-75.0 [facility] Comment on above: Performed By: #### L IVER, BMP, LIPA, EDSON #### [facility] [address] [place] [address] Dr. Julia Velasquez Platelet mean volume (Bld) [Entitic vol] 10.6 fL Normal 9.5-13.5 [facility] Comment on above: Performed By: #### L IVER, BMP, LIPA, EDSON #### [facility] [address] [place] [address] Dr. Julia Velasquez PLT 248 103/ul Normal 150-450 [facility] Comment on above: Performed By: #### L IVER, BMP, LIPA, EDSON #### [facility] [address] [place] [address] Dr. Julia Velasquez RBC 4.39 106/ul Normal 4.20-5.40 [facility] Comment on above: Performed By: #### L IVER, BMP, LIPA, EDSON #### [facility] [address] [place] [address] Dr. Julia Velasquez WBC 5.1 103/ul Normal 4.0-11.0 [facility] Comment on above: Performed By: #### L IVER, BMP, LIPA, EDSON #### [facility] [address] [place] [address] Dr. Julia Velasquez LIPID PROFILEon 08-26-2022 CHOL-HDL RATIO NORM SEE BELOW Normal [facility] Comment on above: Result Comment: 3.3 - 4.4 LOW RISK 4.4 - 7.1 AVERAGE RISK 7.1 - 11.0 MODERATE RISK >11.0 HIGH RISK Performed By: #### L IVER, BMP, LIPA, EDSON #### [facility] [address] [place] [address] Dr. Julia Velasquez Cholesterol [Mass/Vol] 177 mg/dL Normal <=200 [facility] Comment on above: Performed By: #### L IVER, BMP, LIPA, EDSON #### [facility] [address] [address] [address] Julia Velasquez Cholesterol in HDL [Mass/Vol] 56 mg/dL Normal 40-60 [facility] Comment on above: Performed By: #### L IVER, BMP, LIPA, EDSON #### [facility] [address] [address] [address] Julia Velasquez Cholesterol in LDL [Mass/Vol] 99.4 mg/dL Normal [facility] Comment on above: Performed By: #### L IVER, BMP, LIPA, EDSON #### [facility] [address] [address] [address] Julia Velasquez Cholesterol.total/Ch olesterol in HDL [Mass ratio] 3.2 {ratio} Normal [facility] Comment on above: Performed By: #### L IVER, BMP, LIPA, EDSON #### [facility] [address] [address] [address] Julia Velasquez HDL NORMAL > or = 60 mg/dl - LO W CARDIOVASCULAR RISK <40 mg/dl - HIGH CARDIOVASCULAR RISK Normal [facility] Comment on above: Performed By: #### L IVER, BMP, LIPA, EDSON #### [facility] [address] [address] [address] Julia Velasquez LDL CALC NORMAL SEE BELOW Normal [facility] Comment on above: Result Comment: <100 mg/dl OPTIMAL 100 - 129 mg/dl NEAR OR ABOVE OPTIMAL 130 - 159 mg/dl BORDERLINE HIGH 160 - 189 mg/dl HIGH >190 mg/dl VERY HIGH Performed By: #### L IVER, BMP, LIPA, EDSON #### [facility] [address] [address] [address] Julia Velasquez Triglyceride [Mass/Vol] 108 mg/dL Normal <=150 [facility] Comment on above: Performed By: #### L IVER, BMP, LIPA, EDSON #### [facility] [address] [place] [address] Dr. Julia Velasquez VLDL CALC 21.6 mg/dL Normal [facility] Comment on above: Performed By: #### L IVER, BMP, LIPA, EDSON #### [facility] [address] [place] [address] Dr. Julia Velasquez PROF CHEM 8 (BAS METB)on Anion gap [Moles/Vol] 11.5 mmol/L Normal [facility] Comment on above: Performed By: #### L IVER, BMP, LIPA, EDSON #### [facility] [address] [place] [address] Dr. Julia Velasquez Calcium [Mass/Vol] 9.3 mg/dL Normal 8.5-10.1 [facility] Comment on above: Performed By: #### L IVER, BMP, LIPA, EDSON #### [facility] [address] [place] [address] Dr. Julia Velasquez Chloride [Moles/Vol] 104 mmol/L Normal 98-107 [facility] Comment on above: Performed By: #### L IVER, BMP, LIPA, EDSON #### [facility] [address] [place] [address] Dr. Julia Velasquez CO2 [Moles/Vol] 30.5 mmol/L Normal 21.0-32.0 [facility] Comment on above: Performed By: #### L IVER, BMP, LIPA, EDSON #### [facility] [address] [place] [address] Dr. Julia Velasquez Creatinine [Mass/Vol] 1.09 mg/dL Critically high 0.55-1.02 [facility] Comment on above: Performed By: #### L IVER, BMP, LIPA, EDSON #### [facility] [address] [place] [address] Dr. Julia Velasquez EGFR-AF GIBRALTARIAN 59 mL/min/1.73m2 Critically low >=60 [facility] Comment on above: Performed By: #### L IVER, BMP, LIPA, EDSON #### [facility] [address] [address] [address] Julia Velasquez EGFR-NON AF GIBR[place]ARIAN 48 mL/min/1.73m2 Critically low >=60 [facility] Comment on above: Performed By: #### L IVER, BMP, LIPA, EDSON #### [facility] [address] [place] [address] Dr. Julia Velasquez Glucose [Mass/Vol] 89 mg/dL Normal 74-[address] [facility] Comment on above: Performed By: #### L IVER, BMP, LIPA, EDSON #### [facility] [address] [place] [address] Dr. Julia Velasquez Potassium [Moles/Vol] 4.0 mmol/L Normal 3.5-5.1 [facility] Comment on above: Performed By: #### L IVER, BMP, LIPA, EDSON #### [facility] [address] [place] [address] Dr. Julia Velasquez Sodium [Moles/Vol] 142 mmol/L Normal 136-[address] [facility] Comment on above: Performed By: #### L IVER, BMP, LIPA, EDSON #### [facility] [address] [address] [address] Julia Velasquez Urea nitrogen [Mass/Vol] 16.0 mg/dL Normal 7.0-18.0 [facility] Comment on above: Performed By: #### L IVER, BMP, LIPA, EDSON #### [facility] [address] [place] [address] Dr. Julia Velasquez Urea nitrogen/Creatinine [Mass ratio] 14.7 mg/mg Normal [facility] Comment on above: Performed By: #### L IVER, BMP, LIPA, EDSON #### [facility] [address] [place] [address] Dr. Julia Velasquez XR DEXA BONE DENSITYon 08-25 XR DEXA BONE DENSITY EXAMINATION: XR DEX A BONE DENSITY, 08/25/2022 11:08 AM EST HISTORY: Menopause present COMPARISON: None. TECHNIQUE: Dual-energy X-ray absorptiometry (DEXA) bone density study performed for the axial skeleton. FINDINGS: SPINE ANALYSIS: Average bone mineral density is 1.544 g/cm2. T-score (standard deviation relative to young adult mean): 3.0 . HIP ANALYSIS: Lowest bone mineral density is within the left femoral neck, 0.908 g/cm2. T-score (standard deviation relative to young adult mean): -0.9 . IMPRESSION: [employer] Organization Classification: Normal - Low Fracture Risk Electronically authenticated by: BUCKY CRAIG Date: 2022-08-25 14:10 Normal [facility] Vital Signs Date Time Vital Sign Value Performing Clinician Facility 08-25-2023 11:15-0500 Body height 166.37 cm Doni Rivera Other [facility] 08-25-2023 11:15-0500 Body mass index (BMI) [Ratio] 22.61 kg/m2 Doni Rivera Other [facility] Other 08-25-2023 11:15-0500 Body weight 62.6 kg Doni Rivera Other [facility] Other 08-25-2023 11:15-0500 Diastolic blood pressure 73 mm[Hg] Doni Rivera Other [facility] Other 08-25-2023 11:15-0500 Systolic blood pressure 117 mm[Hg] Doni Rivera Other [facility] Other 05-27-2023 10:00-0400 Body height 166.37 cm Kyle Ball Other [facility] Other 05-27-2023 10:00-0400 Body mass index (BMI) [Ratio] 22.74 kg/m2 Kyle Ball Other [facility] Other 05-27-2023 10:00-0400 Body weight 62.96 kg Kyle Ball Other [facility] Other 05-27-2023 10:00-0400 Diastolic blood pressure 72 mm[Hg] Kyle Ball Other [facility] Other 05-27-2023 10:00-0400 Respiratory rate 12 /min Kyle Ball Other [facility] Other 05-27-2023 10:00-0400 Systolic blood pressure 131 mm[Hg] Kyle Ball Other [facility] Other 02-10-2023 10:30-0400 Body height 166.37 cm Kyle Ball Other [facility] Other 02-10-2023 10:30-0400 Body mass index (BMI) [Ratio] 24.55 kg/m2 Kyle Ball Other [facility] Other 02-10-2023 10:30-0400 Body weight 67.95 kg Kyle Ball Other [facility] Other 02-10-2023 10:30-0400 Diastolic blood pressure 78 mm[Hg] Kyle Ball Other [facility] Other 02-10-2023 10:30-0400 Respiratory rate 12 /min Kyle Ball Other [facility] Other 02-10-2023 10:30-0400 Systolic blood pressure 111 mm[Hg] Kyle Ball Other [facility] Other 01-01-2023 11:30-0400 Body height 166.37 cm Kyle Ball Other [facility] Other 01-01-2023 11:30-0400 Body mass index (BMI) [Ratio] 23.01 kg/m2 Kyle Ball Other [facility] Other 01-01-2023 11:30-0400 Body weight 63.69 kg Kyle Ball Other [facility] Other 01-01-2023 11:30-0400 Diastolic blood pressure 77 mm[Hg] Kyle Ball Other [facility] Other 01-01-2023 11:30-0400 Respiratory rate 12 /min Kyle Ball Other [facility] Other 01-01-2023 11:30-0400 Systolic blood pressure 124 mm[Hg] Kyle Ball Other [facility] Other 12-17-2022 11:15-0400 Body height 166.37 cm Kyle Ball Other [facility] Other 12-17-2022 11:15-0400 Body mass index (BMI) [Ratio] 25.3 kg/m2 Kyle Ball Other [facility] Other 12-17-2022 11:15-0400 Body weight 70.04 kg Kyle Ball Other [facility] Other 12-17-2022 11:15-0400 Diastolic blood pressure 70 mm[Hg] Kyle Ball Other [facility] Other 12-17-2022 11:15-0400 Respiratory rate 12 /min Kyle Ball Other [facility] Other 12-17-2022 11:15-0400 Systolic blood pressure 168 mm[Hg] Kyle Ball Other [facility] Other 11-17-2022 12:00-0400 Body height 166.37 cm Kyle Ball Other [facility] Other 11-17-2022 12:00-0400 Body mass index (BMI) [Ratio] 24.15 kg/m2 Kyle Ball Other [facility] Other 11-17-2022 12:00-0400 Body weight 66.86 kg Kyle Ball Other [facility] Other 11-17-2022 12:00-0400 Diastolic blood pressure 74 mm[Hg] Kyle Asterion Other [facility] Other 11-17-2022 12:00-0400 Respiratory rate 12 /min Odeo Other [facility] Other 11-17-2022 12:00-0400 Systolic blood pressure 133 mm[Hg] Kyle Asterion Other [facility] Other 11-14-2021 15:45-0500 Body height 166.37 cm Doni Rivera Other [facility] Other 11-14-2021 15:45-0500 Body mass index (BMI) [Ratio] 23.6 kg/m2 Doni Rivera Other [facility] Other 11-14-2021 15:45-0500 Body weight 65.32 kg Doni Rivera Other [facility] Other Encounters Encounter Date Encounter Type Care Provider Facility Start: 08-26-2023 End: 08-26-2023 ambulatory Tonya Harrison Other [facility] Other Start: 08-26-2023 Telephone encounter Tonya Strong [facility] Start: 08-25-2023 End: 08-25-2023 ambulatory Doni Rivera Other [facility] Start: 08-25-2023 Patient encounter procedure Doni Rivera [facility] Start: 08-13-2023 End: 08-13-2023 ambulatory Kyle Gottlieb Other [facility] Start: 08-13-2023 Nursing evaluation o f patient and report Kyle Gottlieb [facility] Start: 08-10-2023 End: 08-10-2023 ambulatory SHIVAM METZ Not Available Start: 07-09-2023 End: 07-09-2023 ambulatory Kyle Gottlieb Other [facility] Start: 07-09-2023 Nursing evaluation o f patient and report Kyle Gottlieb [facility] Start: 06-19-2023 End: 06-19-2023 ambulatory Doni Rivera Other [facility] Start: 06-19-2023 Telephone encounter [facility]i [facility] Start: 06-18-2023 End: 06-18-2023 ambulatory Doni Rivera Other [facility] Start: 06-18-2023 Telephone encounter [facility]i [facility] Start: 06-08-2023 End: 06-08-2023 ambulatory Kyle Gottlieb Other [facility] Other Start: 06-08-2023 Nursing evaluation o f patient and report Kyle Gottlieb [facility] Start: 05-29-2023 End: 05-29-2023 ambulatory Kyle Gottlieb Other [facility] Other Start: 05-29-2023 Telephone encounter Kyle Gottlieb [facility] Start: 05-27-2023 End: 05-27-2023 ambulatory Kyle Gottlieb Other [facility] Other Start: 05-27-2023 Patient encounter procedure Kyle Gottlieb [facility] Start: 05-13-2023 End: 05-13-2023 ambulatory Kyle Gottlieb Facility:[facility] Start: 05-13-2023 End: 05-13-2023 ambulatory DO Kyle Gottlieb Work Phone: [facility] Work Phone: Start: 05-13-2023 End: 05-13-2023 Patient encounter procedure DO Kyle Gottlieb Work Phone: [facility] Work Phone: Start: 05-07-2023 End: 05-07-2023 ambulatory Kyle Gottlieb Other [facility] Other Start: 05-07-2023 Nursing evaluation o f patient and report Kyle Gottlieb [facility] Start: 04-06-2023 End: 04-06-2023 ambulatory Kyel Gottlieb Other [facility] Other Start: 04-06-2023 Nursing evaluation o f patient and report Kyle Gottlieb [facility] Start: 03-23-2023 End: 03-23-2023 ambulatory Kyle Gottlieb Other [facility] Other Start: 03-23-2023 Nursing evaluation o f patient and report Kyle Gottlieb [facility] Start: 03-16-2023 End: 03-16-2023 ambulatory Kyle Gottlieb Other [facility] Start: 03-16-2023 Nursing evaluation o f patient and report Kyle Gottlieb [facility] Start: 03-13-2023 End: 03-13-2023 ambulatory Kyle Ball Other [facility] Start: 03-13-2023 Telephone encounter Kyle Gottlieb [facility] Start: 03-11-2023 End: 03-11-2023 ambulatory Kyle Ball Other [facility] Other Start: 03-11-2023 Telephone encounter Kyle Gottlieb [facility] Start: 02-10-2023 End: 02-10-2023 ambulatory Kyle Bull Other [facility] Other Start: 02-10-2023 Office outpatient visit 25 minutes Kyle Gottlieb [facility] Start: 02-04-2023 End: 02-04-2023 ambulatory Kyle Gottlieb Other [facility] Other Start: 02-04-2023 Telephone encounter Kyle Bull [facility] Start: 02-03-2023 End: 02-04-[address] KYLE GOTTLIEB Facility:[facility] Start: 02-03-2023 Telephone encounter Kyle LANZA [facility] Start: 01-09-2023 End: 01-09-2023 ambulatory Kyle Bull Other [facility] Other Start: 01-09-2023 Telephone encounter Kyle Gottlieb [facility] Start: 01-07-2023 End: 01-08-[address] KYLE GOTTLIEB Facility:[facility] Start: 01-01-2023 End: 01-01-2023 ambulatory Kyle Bull Other [facility] Start: 01-01-2023 Office outpatient visit 25 minutes Kyle Gottlieb [facility] Start: 12-17-2022 End: 12-17-2022 ambulatory Kyle Gottlieb Other [facility] Start: 12-17-2022 Telephone encounter Kyle Gottlieb [facility] Start: 12-17-2022 Transitional care manage srvc 7 day discharge Kyle Gottlieb [facility] Start: 12-16-2022 End: 12-16-2022 ambulatory Kyle Bull Other [facility] Other Start: 12-16-2022 Telephone encounter Kyle Gottlieb [facility] Start: 12-10-2022 End: 12-14-2022 Evaluation and management of inpatient DR BYRON PEREZ . Facility:[facility] Start: 12-08-2022 End: 12-08-2022 ambulatory Doni Rivera Other [facility] Other Start: 12-08-2022 Telephone encounter [facility] Start: 11-17-2022 End: 11-17-2022 ambulatory Kyle Gottlieb Other [facility] Other Start: 11-17-2022 Office outpatient visit 25 minutes [facility] Start: 09-03-2022 End: 09-03-2022 ambulatory Doni Rivera Other [facility] Start: 09-03-2022 Telephone encounter [facility] Start: 08-26-2022 End: 08-27-[address] KYLE GOTTLIEB Facility:[facility] Start: 08-25-2022 End: 08-26-[address] KYLE GOTTLIEB Facility:[facility] Start: 05-19-2022 Adult health examination Kyle Gottlieb Other [facility] Start: 04-28-2022 End: 06-13-[address] KYLE GOTTLIEB Facility:[facility] Start: 04-14-2022 End: 04-14-2022 Patient encounter procedure DO [facility] Start: 04-09-2022 End: 04-09-2022 ambulatory Doni Rivera Other [facility] Other Start: 04-09-2022 Telephone encounter [facility]i [facility] Start: 12-05-2021 End: 12-05-2021 ambulatory Doni Rivera Other [facility] Start: 12-05-2021 Telephone encounter [facility]i [facility] Start: 11-14-2021 End: 11-14-2021 ambulatory Doni Rivera Other [facility] Other Start: 11-14-2021 Patient encounter procedure Doni Rivera [facility] Procedures Date Procedure Procedure Detail Performing Clinician Start: 05-13-2023 Screening mammograph y of bilateral breasts DO Kyle Gottlieb Work Phone: Start: 04-14-2022 Screening mammograph y of bilateral breasts DO Kyle Gottlieb Work Phone: Depression screening Dylan Gottlieb Other Immunizations Immunization Date Immunization Notes Care Provider Fa cility 05-27-2023 Prevnar 20 Kyle Gottlieb Other [facility] 05-27-2023 influenza, high dose seasonal, preservative-free Kyle Gottlieb Other [facility] Other 07-11-2022 COVID-19 Pfizer (Pediatric) Kyle Gottlieb Other [facility] Other 05-19-2022 influenza virus vaccine, split virus (incl. purified surface antigen) Kyle Gottlieb Other [facility] Other 02-06-2022 COVID-19 Vaccine Pfizer - Documentation Purposes Only Kyle Gottlieb Other [facility] Other 06-10-2021 COVID-19 mRNA, Comirnaty (Pfizer) DO Kyle Gottlieb Work Phone: [facility] 05-17-2021 influenza virus vaccine, split virus (incl. purified surface antigen) Kyle Gottlieb Other [facility] Other 10-25-2020 COVID-19 mRNA, Comirnaty (Pfizer) DO Kyle Gottlieb Work Phone: [facility] 10-04-2020 COVID-19 mRNA, Comirnaty (Pfizer) DO Kyle Gottlieb Work Phone: [facility] 10-04-2020 COVID-19 Vaccine Moderna - Documentation Purposes Only Kyle Gottlieb Other [facility] Other 05-16-2020 influenza virus vaccine, split virus (incl. purified surface antigen) Kyel Gottlieb Other [facility] Other 06-02-2019 influenza virus vaccine, split virus (incl. purified surface antigen) Kyle Gottlieb Other [facility] Other 05-25-2018 influenza virus vaccine, split virus (incl. purified surface antigen) Kyle Gottlieb Other [facility] 05-25-2017 influenza virus vaccine, split virus (incl. purified surface antigen) Kyle Gottlieb Other [facility] 06-11-2016 influenza virus vaccine, split virus (incl. purified surface antigen) Kyle Gottlieb Other [facility] Other 06-13-2015 influenza virus vaccine, split virus (incl. purified surface antigen) Kyle Gottlieb Other [facility] Other 06-13-2015 pneumococcal conjuga te vaccine, 13 valent Kyle Gottlieb Other [facility] Other 06-13-2015 pneumococcal Conjugate, unspecified formulation; Translations: [Need for prophylactic vaccination against Streptococcus pneumoniae (pneumococcus)] Kyle Gottlieb Other [facility] Other 06-07-2013 tetanus and diphther ia toxoids, adsorbed, preservative free, for adult use (5 Lf of tetanus toxoid and 2 Lf of diphtheria toxoid) Kyle Gottlieb Other [facility] Other 06-13-2009 pneumococcal polysaccharide vaccine, 23 valent Kyle Gottlieb Other [facility] Other NEGATED: Highlighted row has not occurred!05-16-2020 influenza virus vaccine, split virus (incl. purified surface antigen) Kyle Gottlieb Other [facility] Other Payers Date Payer Category Payer Self-pay [id number] 1957 Medicare [id number] 2.1 [id number] 1957 Private Health Insurance [id number] 1940 Unknown [id number] 2.16.84 [id number] 1940 Unknown [id number] 2.16.84 [id number] 1940 Unknown [id number] 2.16.84 [id number] 1942 Unknown [id number] 2.16.84 [id number] 1942 Unknown [id number] 2.16.84 [id number] 1942 Unknown [id number] 2.16.84 [id number] 1940 Unknown [id number] Unknown [id number] 2.16.8 [id number] Social History Date Type Detail Facility Unknown if ever smoked [facility] Other Sex Assigned At Sex Assigned At Bir th [facility] Start: 11-28-2021 Tobacco smoking status NHIS Ex-smoker (finding) [facility] Start: 1940 Sex Assigned At Female F [facility] Clinical Notes 11-14-2021 to 08-25-2023 Note Date & Type Note Facility 08-25-2023 Evaluation note Encounter Date Diagnosis Assessment Notes Aug, Abdominal pain (ICD-10 - R10.9) Aug, Nausea & vomiting (ICD-10 - R11.2) Aug, GERD (gastroesopha geal reflux disease) (ICD-10 - K21.9) Pt is doing well on the pantoprazole. Pt RTO YEARLY Aug, Early satiety (ICD-10 - R68.81) Aug, Loss of appetite (ICD-10 - R63.0) [facility] Other 12-07-2023 Evaluation note* Encounter Date Diagnosis Assessment Notes Treatment Notes Treatment Clinical Notes Aug, Pernicious anemia (ICD-10 - D51.0) [facility] Other 11-02-2023 Evaluation note* Encounter Date Diagnosis Assessment Notes Treatment Notes Treatment Clinical Notes Jul, Pernicious anemia (ICD-10 - D51.0) [facility] Other 10-02-2023 Evaluation note* Encounter Date Diagnosis Assessment Notes Treatment Notes Treatment Clinical Notes Jun, Pernicious anemia (ICD-10 - D51.0) [facility] Other 09-22-2023 Evaluation note* Encounter Date Diagnosis Assessment Notes Treatment Notes Treatment Clinical Notes May, Anemia, unspecified type (ICD-10 - D64.9) May, Fatigue, unspecified type (ICD-10 - R53.83) [facility] Other 09-20-2023 Evaluation note* Encounter Date Diagnosis Assessment Notes Treatment Notes Treatment Clinical Notes May, Medicare annual well ness visit, subsequent (ICD-10 - Z00.00) Personalized health advice was given to the beneficiary including a written plan for screenings discussed and provided. Advanced care planning reviewed and/or information given as requested. Additional counseling was provided here today in regards to, [ ]. The above visit was performed by [ ], under direct supervision of [ ]. Document reviewed and amended by provider signed below. May, Primary hypertension (ICD-10 - I10) This patient is instructed to consume a healthy, low-fat, low-salt diet. They are also encouraged to continue exercise to achieve/maintain a normal BMI. May, Stage 3a chronic kid papa disease (ICD-10 - N18.31) The patient is instructed on adequate control of hypertension and diabetes, if appropriate. They are also educated on the associated risks of NSAIDs and PPI use with kidney disease. They were instructed on adequate fluid balance and to avoid dehydration. May, Mucopurulent chronic bronchitis (ICD-10 - J41.1) No ER visits for AE Hx of pneumonia earlier this year w/ clearing of CXR. UTD w/ vaccines: flu, prevnar given Encouraged to get latest COVID May, Gastroesophageal ref lux disease with esophagitis without hemorrhage (ICD-10 - K21.00) Diet instructions: Smaller portions, avoid eating and laying flat, avoid eating or drinking prior to bedtime. Weight loss. May, Lumbar spondylosis (ICD-10 - M47.816) The patient is instructed to avoid bending, twisting or lifting. They are to use intermittent heat and ice as needed. They may schedule a massage or gentle manipulation. They may safely use Tylenol as needed. May, Pernicious anemia (I CD-10 - D51.0) Continue monthly B12 injections Recheck CBC and B12 levels May, Venous insufficiency (chronic) (peripheral) (ICD-10 - I87.2) Avoid salt and elevate lower extremities, support stockings, inspect legs and feet daily for blisters and ulcerations. May, Hypertriglyceridemia (ICD-10 - E78.1) Instructed on diet and exercise with continued statin therapy.Discussed the beneficial effects of lowering cholesterol in reducing the risk for cerebrovascular and cardiovascular disease. May, Bradycardia (ICD-10 - R00.1) r/o hypothyroid and place holter for suspected symptomatic bradycardia. May, Major depressive disorder, recurrent, mild (ICD-10 - F33.0) May, Nicotine dependence, cigarettes, in remission (ICD-10 - F17.211) Quit 2002 Continue abstinence May, Anemia, unspecified type (ICD-10 - D64.9) Recheck CBC, B12, FA, Fe No obvious s/s bleeding. Healthy diet and MVI May, Fatigue, unspecified type (ICD-10 - R53.83) Check labs: CBC, B12, TSH [facility] Other 08-31-2023 Evaluation note* Encounter Date Diagnosis Assessment Notes Treatment Notes Treatment Clinical Notes Apr, Pernicious anemia (ICD-10 - D51.0) [facility] Other 07-31-2023 Evaluation note* Encounter Date Diagnosis Assessment Notes Treatment Notes Treatment Clinical Notes Mar, Pernicious anemia (ICD-10 - D51.0) [facility] Other 07-10-2023 Evaluation note* Encounter Date Diagnosis Assessment Notes Treatment Notes Treatment Clinical Notes Mar, Pernicious anemia (ICD-10 - D51.0) [facility] Other 07-07-2023 Evaluation note* Encounter Date Diagnosis Assessment Notes Treatment Notes Treatment Clinical Notes Mar, PA (pernicious anemia) (ICD-10 - D51.0) [facility] Other 07-05-2023 Evaluation note* Encounter Date Diagnosis Assessment Notes Treatment Notes Treatment Clinical Notes Mar, Acute pneumonia (ICD-10 - J18.9) Mar, Anemia, unspecified type (ICD-10 - D64.9) Mar, Stage 3a chronic kidney disease (ICD-10 - N18.31) [facility] Other 06-06-2023 Evaluation note* Encounter Date Diagnosis Assessment Notes Treatment Notes Treatment Clinical Notes Feb, Stage 3a chronic kidney disease (ICD-10 - N18.31) The patient is instructed on adequate control of hypertension and diabetes, if appropriate. They are also educated on the associated risks of NSAIDs and PPI use with kidney disease. They were instructed on adequate fluid balance and to avoid dehydration. Feb, Primary hypertension (ICD-10 - I10) This patient is instructed to consume a healthy, low-fat, low-salt diet. They are also encouraged to continue exercise to achieve/maintain a normal BMI. Feb, Intermittent palpitations (ICD-10 - R00.2) Avoid stimulants, hydrate and healthy diet. No change in medical treatment. Off all beta blockers. PVC? SVT? Check holter Feb, Irritable bowel syndrome (IBS) (ICD-10 - K58.9) Healthy diet, exercise and increase dietary fiber Feb, Pulmonary infiltrate (ICD-10 - R91.8) Continues to improve. Recheck in month. 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 Recheck FA/B12, CBC in month [facility] Other 05-30-2023 Evaluation note* Encounter Date Diagnosis Assessment Notes Treatment Notes Treatment Clinical Notes January, Acute pneumonia (ICD-10 - J18.9) January, Anemia, unspecified type (ICD-10 - D64.9) January, Stage 3a chronic kidney disease (ICD-10 - N18.31) [facility] Other 05-05-2023 Evaluation note* Encounter Date Diagnosis Assessment Notes Treatment Notes Treatment Clinical Notes January, Folic acid deficiency (ICD-10 - E53.8) [facility] Other 04-27-2023 Evaluation note* Encounter Date Diagnosis Assessment Notes Treatment Notes Treatment Clinical Notes Dec, Pneumonia of right upper lobe due to infectious organism (ICD-10 - J18.9) Much improved, continue Mucinex as needed. Increase activity as tolerated. Repeat CXR scheluded to confirm resolution of infiltrate. May need CT chest Dec, Essential hypertensi on (ICD-10 - I10) This patient is instructed to consume a healthy, low-fat, low-salt diet. They are also encouraged to continue exercise to achieve/maintain a normal BMI. Dec, Stage 3a chronic kidney disease (ICD-10 - N18.31) The patient is instructed on adequate control of hypertension and diabetes, if appropriate. They are also educated on the associated risks of NSAIDs and PPI use with kidney disease. They were instructed on adequate fluid balance and to avoid dehydration. Dec, Gastroesophageal reflux disease with esophagitis without hemorrhage (ICD-10 - K21.00) Diet instructions: Smaller portions, avoid eating and laying flat, avoid eating or drinking prior to bedtime. Weight loss. Continue PPI Dec, Anasarca (ICD-10 - R60.1) Improved w/ improved nutrition and short course of diuretic. REsume healthy diet and activity Monitor for weight gain and call office if increase > 3 lbs Dec, Anemia, unspecified type (ICD-10 - D64.9) No s/s bleeding. No change in appetite or bowel habits. No N/V/D/C, melena or hematochezia Scheduled to recheck CBC, Fe, B12, FA EGD and Colonoscopy completed in past 2 years Malabsorption? Dec, Lumbar spondylosis (ICD-10 - M47.816) The patient is instructed to avoid bending, twisting or lifting. They are to use intermittent heat and ice as needed. They may schedule a massage or gentle manipulation. They may safely use Tylenol as needed. Dec, Fibromyalgia (ICD-10 - M79.7) Daily stretching, exercises. Tylenol as needed. Proper sleep habits/routine. Avoid strenuous activity Dec, Other Diet and exerci se with continued statin therapy. [facility] Other 04-12-2023 Evaluation note* Encounter Date Diagnosis Assessment Notes Treatment Notes Treatment Clinical Notes Dec, Pneumonia of right upper lobe due to infectious organism (ICD-10 - J18.9) Continue antibiotics - will review hosp records, she likely does not need to finish full 10 day course of therapy Mucinex, hydrate, cough/deep breathing exercises Repeat CXR and consider CT chest in month Dec, Essential hypertensi on (ICD-10 - I10) This patient is instructed to consume a healthy, low-fat, low-salt diet. They are also encouraged to continue exercise to achieve/maintain a normal BMI. Elevated due to fluid excess Avoid salt Monitor closely Dec, Prerenal azotemia (ICD-10 - R79.89) Fluid overloaded Need to follow healthy diet. Avoid salt Daily weights, anticipate gradual reduction in weight Lasix qd x 7 days Dec, Stage 3a chronic kidney disease (ICD-10 - N18.31) Hydrate, avoid NSAIDs Recheck in 4 weeks The patient is instructed on adequate control of hypertension and diabetes, if appropriate. They are also educated on the associated risks of NSAIDs and PPI use with kidney disease. They were instructed on adequate fluid balance and to avoid dehydration. Dec, Anemia, unspecified type (ICD-10 - D64.9) No s/s bleeding - colonoscopy 2020 - EGD 2021 Will need Fe, B12, FA completed Will repeat H/H in 4wks Dec, Gastroesophageal reflux disease with esophagitis without hemorrhage (ICD-10 - K21.00) Diet instructions: Smaller portions, avoid eating and laying flat, avoid eating or drinking prior to bedtime. Weight loss. Dec, Anasarca (ICD-10 - R60.1) [facility] Other 04-03-2023 Evaluation note* Encounter Date Diagnosis Assessment Notes Treatment Notes Treatment Clinical Notes Dec, Seasonal allergic rhinitis (ICD-10 - J30.2) [facility] Other 03-13-2023 Evaluation note* Encounter Date Diagnosis Assessment Notes Treatment Notes Treatment Clinical Notes Nov, Essential hypertensi on (ICD-10 - I10) This patient is instructed to consume a healthy, low-fat, low-salt diet. They are also encouraged to continue exercise to achieve/maintain a normal BMI. Nov, Gastroesophageal ref lux disease with esophagitis without hemorrhage (ICD-10 - K21.00) Diet instructions: Smaller portions, avoid eating and laying flat, avoid eating or drinking prior to bedtime. Weight loss. Nov, Stage 3a chronic kid papa disease (ICD-10 - N18.31) The patient is instructed on adequate control of hypertension and diabetes, if appropriate. They are also educated on the associated risks of NSAIDs and PPI use with kidney disease. They were instructed on adequate fluid balance and to avoid dehydration. Nov, Hypertriglyceridemia (ICD-10 - E78.1) Diet and exercise with continued Rx therapy. Nov, Lumbar spondylosis (ICD-10 - M47.816) The patient is instructed to avoid bending, twisting or lifting. They are to use intermittent heat and ice as needed. They may schedule a massage or gentle manipulation. They may safely use Tylenol as needed. Nov, Irritable bowel synd ravi (IBS) (ICD-10 - K58.9) Diet instructions, exercise Nov, Fibromyalgia (ICD-10 - M79.7) Daily stretching exercises, exercise, avoid strenuous lifting. [facility] Other 12-28-2022 Evaluation note* Encounter Date Diagnosis Assessment Notes Treatment Notes Treatment Clinical Notes Aug, Diarrhea (ICD-10 - R19.7) [facility] Other 03-31-2022 Evaluation note* Encounter Date Diagnosis Assessment Notes Treatment Notes Treatment Clinical Notes Nov, Diarrhea (ICD-10 - R19.7) [facility] Other 03-10-2022 Evaluation note* Encounter Date Diagnosis Assessment Notes Treatment Notes Treatment Clinical Notes Nov, Abdominal pain (ICD-10 - R10.9) Continue Dicyclomine Nov, Nausea & vomiting (ICD-10 - R11.2) Nov, GERD (gastroesophageal reflux disease) (ICD-10 - K21.9) Continue Pantoprazole 40mg bid, 30 minutes prior to the first and last meal of the day Nov, Early satiety (ICD-10 - R68.81) Nov, Loss of appetite (ICD-10 - R63.0) [facility] Other Evaluation noteNo InformationNort [facility] Other Evalugmcqs noteNo assessment information available [facility] Work Phone: Evaluation [email or web address] Other [facility] general Narrative - Reported* Type Description Date Surgical History appenedectomy Surgical History left ovary Surgical History total hysterectomy [facility] Other [facility] general Narrative - Reported* Type Description Date Medical History Diarrhea Medical History IBS (irritable bowel syndrome) Medical History Gastro-esophageal reflux Medical History Abdominal pain Medical History Diverticulosis Medical History Loss of appetite Medical History Early satiety Medical History Nausea and vomiting Medical History Seasonal allergic reaction Medical History Hemorrhoid Medical History Lumbar spondylosis Medical History Multiple sclerosis Medical History Fibromyalgia Medical History Hypertriglyceridemia Medical History Depression, major, recurrent, mi ld Medical History Essential hypertension Medical History Cystitis Medical History Benign hypertension with chronic kidney disease, stage III Medical History Abdominal pain, RLQ (right lower quadrant) Medical History Hypokalemia Medical History Malaise Surgical History appenedectomy Surgical History left ovary Surgical History total hysterectomy Surgical History COLONOSCOPY 2020 Surgical History EGD Hospitalization History SEE [employer] Other History general Narrative - Reported* Type Description Date Medical History Diarrhea Medical History IBS (irritable bowel syndrome) Medical History Gastro-esophageal reflux Medical History Abdominal pain Medical History Diverticulosis Medical History Loss of appetite Medical History Early satiety Medical History Nausea and vomiting Medical History Seasonal allergic reaction Medical History Hemorrhoid Medical History Lumbar spondylosis Medical History Multiple sclerosis Medical History Fibromyalgia Medical History Hypertriglyceridemia Medical History Depression, major, recurrent, mi ld Medical History Essential hypertension Medical History Cystitis Medical History Benign hypertension with chronic kidney disease, stage III Medical History Abdominal pain, RLQ (right lower quadrant) Medical History Hypokalemia Medical History Malaise Medical History B12 deficiency Surgical History appenedectomy Surgical History left ovary Surgical History total hysterectomy Surgical History COLONOSCOPY 2020 Surgical History EGD Hospitalization History SEE SURGICAL [facility] Other History general Narrative - [facility]orted[employer] Other [employer] Narrative - [email or web address] Other Chief Complaint and Reason for Visit Chief Complaint Screening Family History Relationship Condition Age at Onset Recorded Date/T leesa Not Specified Heart disease Unknown brother Heart disease Unknown father Malignant neoplasm of pancreas Unknown Advance Directives Advance Directive Response Recorded Date/ Time Advance Directives No January 21 8 3:52pm Reason for Referral Reason Consult for seasonal allergies and post nasal drip Diagnosis 1 Seasonal allergic rh initis (J30.2) Referral Organization [facility] Referring Provider First Name Doni Referring Provider Last Name Miguel Referring Provider Specialty Gastroenter ology Referred Organization Unknown Facility Referred Provider Tristin Hayes Referred Provider Specialty Allergy/Immu nology Referral Priority Routine Summary Purpose Additional Source Comments REASON FOR VISIT (unrecogniz ed section and content) PATIENT HERE WITH COMPLAINTS OF ABDOMINAL PAIN, NAUSEA & VOMITINGRefillsREFILLRefills6 MONTH FOLLOW UPClinicalWants in Office This WeekNo Informationhospital follow up2 week follow upnew medicationLabResults1 month Follow upLab/chest xrayLab ResultsNo InformationB-12 ShotB-12 ShotB-12 ShotWELLNESSLab ResultsB-12 ShotREFILL/OV NEEDEDSCRIPT SEND TO DIFFEREMT SCRIPTB-12 ShotB-12 [id number] is here for a 1 year Follow up /PAST DUE/MEDSCOVID test Care Teams (unrecognized sec tion and content) Team Status: Inactive Member Role Status Dates Kyle Gottlieb , Primary Care Provider Active Aamir Xavier , Attending Provider, Referring Pr kristener Active Team Status: Active Member Role Status Dates Kyle Gottlieb , Primary Care Provider Active Team Status: Inactive Member Role Status Dates Kyle Gottlieb , Primary Care Provider Active Aamir Xavier , DO Attending Provider Active Goals (unrecognized section and content) Goals may be documented in a n alternate section INFORMATION SOURCE (unrecogn ized section and content) DATE CREATED AUTHOR 02/13/2023 [facility] DATE CREATED AUTHOR AUTHOR'S ORGANIZ ATION 05/24/2023 [facility] DATE CREATED AUTHOR AUTHOR'S ORGANIZ ATION 08/12/2023 [facility] FOR RECORDS PERTAINING TO PATIENTS WHO ARE OR HAVE BEEN ENROLLED IN A CHEMICAL DEPENDENCY/SUBSTANCEABUSE PROGRAM, SOME INFORMATION MAY BE OMITTED. This clinical summary was aggregated from multiple sources. Caution should be exercised in using it in the provision of clinical care. This summary normalizes information from multiple sources, and as a consequence, information in this document may materially change the coding, format and clinical context of patient data. In addition, data may be omitted in some cases. CLINICAL DECISIONS SHOULD BE BASED ON THE PRIMARY CLINICAL RECORDS. [employer] provides no warranty or guarantee of the accuracy or completeness of information in this document.
[2023-08-28 11:21] LABS: SARS-CoV-2 NAA INCONCLUSIVE (NOT DETECTE)
== END 2023-08-26 15:50 | disposition home or self-care (01) ==
LOC: LAB 15:49
PROVIDERS: PCP Internal Medicine; Visit Provider Nurse Practitioner Family
DX: Z20.822 Contact with and (suspected) exposure to COVID-19 (principal)
CPT/HCPCS: 87635; 87811

== ENCOUNTER 2023-11-25 12:24 | Outpatient (OUT) | payer MEDICARE, OTHER, SELFPAY ==
--- OUTSIDE RECORDS SUMMARY | 2023-11-25 12:44 | XMS_ITS | CCD ---
Author Organization [facility] Care Team Providers Care Gallery Director Name Role Phone Doni Rivera Unavailable DO Kyle Gottlieb Primary Care Provider DO Aamir Xaiver Attending Provider [phone] DO Aamir Xavier Referring Provider Kyle Gottlieb Unavailable BULL, DR MURPHY Primary Care Unavailable BULL, DR MURPHY Attending Unavailable BALL, DR MURPHY Consulting Unavailable BULL, DR MURPHY Admitting Unavailable BALL, DR MURPHY Attending Unavailable BULL, DR MURPHY Consulting Unavailable BULL, DR MURPHY Primary Care Unavailable BULL, DR MURPHY Admitting Unavailable KIARA, DR BUCKY Florez Consulting Unavailable BULL, DR MURPHY Admitting Unavailable BALL, DR MURPHY Attending Unavailable BALL, DR MURPHY Consulting Unavailable BULL, DR MURPHY Primary Care Unavailable NEFJUHI, NANDO Consulting Unavailable BULL, DR MURPHY Attending Unavailable BALL, DR MURPHY Primary Care Unavailable BULL, DR MURPHY Admitting Unavailable HOY ., DR MATTHEWS Consulting Unavailable NADERER, DR ANA MARIA Lambert Admitting Unavailable NADERER, DR ANA MARIA Lambert Attending Unavailable BULL, DR MURPHY Primary Care Unavailable ZIEBER, DR BUCKY Florez Consulting Unavailable NADERER, DR ANA MARIA Lambert Consulting Unavailable KATKO, CARLOS Acosta Consulting Unavailable JAE, MOY Consulting Unavailable SISTER, MARGOT Consulting Unavailable HEGG, RAKESH Consulting Unavailable RASTEGAR, KELVIN Consulting Unavailable BALL, DR MURPHY Admitting Unavailable BULL, DR MURPHY Attending Unavailable BULL, DR MURPHY Consulting Unavailable BULL, DR MURPHY Primary Care Unavailable NEFJUHI, NANDO Consulting Unavailable DO Kyle Gottlieb Primary Care Provider DO Aamir Xavier Attending Provider Kyle Gottlieb Primary Care Unavailable Aamir Xavier Attending Unavailable Aamir Xavier Admitting Unavailable Tonya Harrison Unavailable [phone] Kyle Gottlieb MD Primary Care Provider SHIVAM PONCE Attending Unavailable MEL HAYES Attending Unavailable SHIVAM PONCE Attending Unavailable Allergies Allergy Classification Reported Allergen(s) Allergy Type Date of Onset Reaction(s) Facility (20 sources) Amoxicillin Drug Allergy 11-29-19 Unknown, [facility] (20 sources) Clarithromycin Drug Allergy 11-29-19 Unknown, [facility] (20 sources) Naproxen Drug Allergy 11-29-19 Unknown [facility] (20 sources) Sulfamethoxazole / Trimethoprim Drug Allergy 02-17-20 23 Unknown [facility] (20 sources) LEVOFLAXIN Propensity to adverse reactions 09-17-19 Unknown [facility] (11 sources) Sulfamethoxazole / Trimethoprim; Translations: [Bactrim] Drug Allergy 11-19-19 14 Unknown [facility] (7 sources) levoFLOXacin; Translations: [Levofloxacin] Drug Allergy 11-29-19 [facility] (7 sources) Sulfamethoxazole; Translations: [sulfamethoxazole] Drug Allergy 11-29-19 Unknown [facility] (7 sources) Trimethoprim; Translations: [trimethoprim] Drug Allergy 11-29-19 Unknown [facility] (1 source) Amoxicillin Drug Allergy [facility] (1 source) Clarithromycin Drug Allergy [facility] (1 source) Naproxen Drug Allergy 11-19-19 14 [facility] (17 sources) Baclofen Drug Allergy Unknown [facility] Other (17 sources) levoFLOXacin Drug Allergy Unknown [facility] Other (17 sources) Penicillin Drug Allergy Unknown [facility] Other (17 sources) predniSONE Drug Allergy Unknown [facility] [facility] Other (18 sources) Biaxin XL *MACROLIDES* Propensity to adverse reactions 09-17-19 Unknown [facility] (2 sources) Allergies Reconciled Propensity to adverse reactions Unknown [facility] Other (2 sources) patient allergy list reviewed by nurse or physicia Propensity to adverse reactions 01-04-20 16 Comment:Done [employer] Other (17 sources) corticosteroid and/or corticosteroid derivative (FN) Drug allergy Unknown [facility] [facility] Other (17 sources) Substance with sulfonamide structure and antibacterial mechanism of action (substance) Drug allergy Unknown [facility] [facility] Other (17 sources) Substance with penicillin structure and antibacterial mechanism of action (substance) Drug allergy Unknown [facility] [facility] Other (1 source) Amoxicillin Drug Allergy 11-29-19 [facility] (1 source) Clarithromycin Drug Allergy 11-29-19 [facility] (1 source) Naproxen Drug Allergy 11-29-19 [facility] (2 sources) Clarithromycin Allergy to substance 11-29-19 [facility] (1 source) Corticosteroids Allergy to substance 09-17-19 [facility] (1 source) Penicillins Allergy to substance 09-17-19 [facility] (1 source) Sulfonamides (Antibiotic) Allergy to substance 09-17-19 [facility] Medications Current Medications Medication Drug Class(es) Dates Sig (Normalized) Sig (Original) azithromycin 250 mg oral tablet (7 sources) Macrolide Antimicrobial Start: 09-17-2023 Azithromycin 250 MG as directed Orally daily for 5 days Sep, Active Start: 08-28-2023 Azithromycin 2 50 MG 2 tablet on the first day, then 1 tablet daily for 4 days Orally Once a day for 5 day(s) Aug, Active benazepril hydrochloride 5 mg oral tablet (20 sources) Angiotensin Converting Enzyme Inhibitor Start: 11-28-2021 take 5 mg by mouth once daily Benazepril Active 5 MG PO Daily November 27, 2021 11:00pm Benazepril HCl A ctive bisoprolol fumarate 2.5 [...] Once a day for 30 day(s) Active Calcium Carbonate-Vit D-Min (Calcium 600+D Plus Minerals) 600-400 MG-UNIT chewable tablet (3 sources) Calcium Carbonate-Vit D-Min (Calcium 600+D Plus Minerals) 600-400 MG-UNIT chewable tablet every 12 (twelve) hours. 0 Active cefdinir 300 mg oral capsule (20 sources) Cephalosporin Antibacterial Start: 12-15-19 23 Cefdinir 300 MG as directed Orally bid Dec, Active cetirizine hydrochloride 10 mg oral tablet (20 sources) Histamine-1 Receptor Antagonist Start: 11-29-19 take 1 tablet by mouth once daily Cetirizine (Zyrtec) 10 mg tablet Active 10 MG PO Daily November 27, 2021 11:00pm dicyclomine hydrochloride 20 mg oral tablet (20 sources) Anticholinergic take 1 tablet by mouth every six hours Dicyclomine HCl 20 MG 1 tablet Orally QID Active docusate sodium 100 mg oral capsule (3 sources) docusate sodium (Colace) 100 MG capsule 1 (one) time each day at the same time. 0 Active estrogens, conjugated (prison) 0.625 mg/ml vaginal cream (20 sources) Estrogen Start: 11-29-19 Conjugated Estrogens (Premarin) 0.625 mg/gram cream Active 1 APPLIC TOPICAL As Directed November 27, 2021 11:00pm Start: 12-31-2016 Estrogens Conj ugated (Premarin) 0.625 MG/GM cream 1/2gram Vaginal twice per week for 90 days 0 12/31/2016 Active Premarin 0.625 M G/GM as directed Vaginal Active Premarin 0.625 M G/GM as directed Vaginal Active fenofibrate 160 mg oral tablet (20 sources) Peroxisome Proliferator Receptor alpha Agonist Start: 11-28-2021 take 160 mg by mouth once daily Fenofibrate Active 160 MG PO Daily November 27, 2021 11:00pm Start: 06-12-2010 take 1 capsule by mo [facility] once daily at mealtime fenofibrate micronized (Lofibra) 134 MG capsule take 1 capsule (134MG) by ORAL route every day with food Oral 0 06/12/2010 Active Fish Oils (20 sources) take 1 capsule by mouth three ti mes daily take 1 capsule by mouth three ti mes daily Fish Oil 1200 MG 1 capsule Orally Three times a day for 30 day(s) Active folic acid 1 mg oral tablet (20 sources) Start: 01-09-2023 take 1 tablet by mouth once daily folic acid (Folvite) 1 MG tablet TAKE 1 TABLET BY MOUTH EVERY DAY FOR 30 DAYS 0 02/05/2023 Active furosemide 40 mg oral tablet (1 source) Loop Diuretic Start: 12-17-2022 take 1 tablet by mouth every twenty-four hours Furosemide 40 MG 1 tablet Orally Once a day for 7 days Dec, Active gabapentin 300 mg oral capsule (20 sources) Anti-epileptic Agent Start: 06-06-2009 take 1 capsule by mouth once daily at bedtime Gabapentin (Neurontin) 300 mg Capsule Active 300 MG PO Daily at bedtime November 27, 2021 11:00pm take 1 capsule by mouth every ei ght hours Neurontin 300 MG 1 capsule Orally Three times a day Active hydrocortisone acetate 25 mg rectal suppository (20 sources) Corticosteroid Start: 11-28-2021 Hydrocortisone Acetate Active 25 MG WA Daily November 27, 2021 11:00pm Proctozone-HC 2. 5 % APPLY TOPICALLY 2 TO 4 TIMES DAILY for 90 Active Anucort-HC 25 MG 1 suppository Rectal Active Proctosol HC 2.5 % 1 application to affected area Rectal Twice a day for 30 days Active Anucort-HC Activ e Hydrocortisone (Proctosol Hc ) 2.5 % Cream With Applicator (3 sources) Start: 11-28-2021 Hydrocortisone (Proctosol Hc) 2.5 % Cream With Applicator Active 1 EACH WA Daily November 27, 2021 11:00pm Start: 11-28-2021 Hydrocortisone (Proctosol Hc) 2.5 % Cream With Applicator Active 1 EACH WA Daily November 28, 2021 12:00am ipratropium bromide 0.042 mg/actuat metered dose nasal spray (3 sources) Anticholinergic Start: 02-16-2023 take 2 spray(s) nasal route in the morning, then take 2 spray(s) nasal route in the evening, then take 2 spray(s) nasal route at bedtime ipratropium (Atrovent) 0.06 % nasal spray Indications: Chronic rhinitis Administer 2 sprays into each nostril in the morning and 2 sprays in the evening and 2 sprays before bedtime. 15 mL 11 02/16/2023 Active Rea 2-Hdb-Cnm-Fish Oil (Fish Oil) 1,200 (144-216) mg Capsule (3 sources) Start: 11-28-2021 take 2 capsules by mouth at bedtime Rea 3-Ttg-Jyk-Fish Oil (Fish Oil) 1,200 (144-216) mg Capsule Active 2 CAP PO Bedtime November 27, 2021 11:00pm Start: 11-28-2021 take 2 capsules by m outh at bedtime Rea 2-Ggj-Onf-Fish Oil (Fish Oil) 1,200 (144-216) mg Capsule Active 2 CAP PO Bedtime November 28, 2021 12:00am OXcarbazepine 300 mg oral tablet (20 sources) Anti-epileptic Agent Start: 06-06-2009 take 1 tablet by mouth at bedtime Oxcarbazepine (Trileptal) 300 mg Tablet Active 300 MG PO Bedtime November 27, 2021 11:00pm pantoprazole 40 mg delayed release oral tablet (20 sources) Proton Pump Inhibitor Start: 12-28-2020 take 40 mg by mouth twice daily Pantoprazole Active 40 MG PO Twice daily November 27, 2021 11:00pm pantoprazole (Pr otonix) 40 MG EC tablet 1 (one) time each day at the same time. 0 Active Stool Softener (20 sources) Stool Softener A ctive tiZANidine 4 mg oral tablet (20 sources) Central alpha-2 Adrenergic Agonist Start: 11-28-2021 Tizanidine (Zanaflex ) 4 mg Tablet Active 2 MG PO Bedtime November 27, 2021 11:00pm Start: 06-06-2009 take 1 tablet by shiloh th once at bedtime tiZANidine (Zanaflex) 4 MG capsule take 1 tablet (4MG) by ORAL route every bedtime Oral 0 06/06/2009 Active take 1 tablet by shil[place] th every eight hours Zanaflex 4 MG 1 tablet as needed Orally every 8 hrs Active valACYclovir 500 mg oral tablet (3 sources) Herpesvirus Nucleoside Analog DNA Polymerase Inhibitor, Herpes Simplex Virus Nucleoside Analog DNA Polymerase Inhibitor, Herpes Zoster Virus Nucleoside Analog DNA Polymerase Inhibitor Start: 07-10-2023 take 1 tablet by mouth three times daily valACYclovir (Valtrex) 500 MG tablet TAKE 1 TABLET BY MOUTH THREE TIMES A DAY DIRECTED 0 07/10/2023 Active Completed/Discontinued Medications Medication Drug Class(es) Dates Sig (Normalized) Sig (Original) B-12 - up to 1000 mcg (20 sources) Start: 09-15-2023 B-12 - up to 1000 mcg Sep, 1000 mcg Start: 08-13-2023 B-12 - up to 1 000 mcg Aug, 1000 mcg Start: 07-09-2023 B-12 [...] Chronic Chronic obstructive pulmonary disease and bronchiectasis (18 sources) Mucopurulent chronic bronchitis; Translations: [Mucopurulent chronic [...] factor deficiency] Episodic Deficiency and other anemia (12 sources) Vitamin B12 deficiency anemia due to [...] Malaise; Translations: [Other malaise] Onset: 8 Episodic Menopausal disorders (3 sources) Atrophic vaginitis; Translations: [Postmenopausal atrophic vaginitis] Onset: 3 01-26-2023 Chronic Mood disorders (20 sources) Mild recurrent major depression; Translations: [Major depressive disorder, recurrent, mild] Onset: 9 Chronic Multiple sclerosis (20 sources) Multiple sclerosis; Translations: [Multiple sclerosis] Onset: 3 Chronic Nausea and vomiting (20 sources) Nausea and vomiting; Translations: [Nausea with vomiting, unspecified] Onset: 4 Resolved: 2 Episodic Nonmalignant breast conditions (3 sources) Fibrocystic disease of breast; Translations: [Diffuse cystic mastopathy of unspecified breast] Onset: 3 01-26-2023 Chronic Nutritional deficiencies (1 source) Moderate protein-calorie malnutrition; Translations: [MODERATE PROTEIN-CALORIE MLNUTRIT] Onset: 3 Chronic Nutritional deficiencies (1 source) Deficiency of other specified B group vitamins Episodic Osteoarthritis (2 sources) Osteoarthritis; Translations: [Polyosteoarthritis, unspecified] Chronic Other aftercare (1 source) Other shelter (current) drug therapy; Translations: [OTH DRILL PRESS TENDER CURRENT DRUG THERAPY] Onset: 3 Episodic Other aftercare (2 sources) Long-term current use of drug therapy; Translations: [Other terminal press operator (current) drug therapy] Episodic Other and unspecified [...] Chronic Other diseases of veins and lymphatics (18 sources) Peripheral venous insufficiency; Translations: [Venous insufficiency [...] unspecified] Onset: 7 Episodic Other gastrointestinal disorders (4 sources) Diarrhea, unspecified; Translations: [Diarrhea] Onset: 2 Resolved: 2 Episodic Other injuries and conditions due to external causes (2 sources) History of fall; Translations: [History of falling] Episodic Other lower respiratory disease (1 source) Acute respiratory distress; Translations: [ACUTE RESPIRATORY DISTRESS] Onset: 3 Episodic Other lower respiratory disease (1 source) Other nonspecific abnormal finding of lung field Episodic Other nervous system disorders (5 sources) Brachial plexus disorder; Translations: [Brachial plexus disorders] Onset: 3 01-26-2023 Chronic Other non-traumatic joint disorders (2 sources) Pain [...] Onset: 7 Chronic Other upper respiratory disease (3 sources) Other seasonal allergic rhinitis; Translations: [Seasonal allergic rhinitis] Chronic Other upper respiratory infections (8 sources) Acute sinusitis; Translations: [Acute sinusitis, unspecified] [...] Postmenopausal state; Translations: [Asymptomatic menopausal state] Episodic Residual codes; unclassified (1 source) Other general symptoms and signs Episodic Spondylosis; intervertebral disc disorders; other back problems (20 sources) Lumbar spondylosis; Translations: [Spondylosis without myelopathy or radiculopathy, lumbar region] Onset: 2 Chronic Substance-related disorders (18 sources) Tobacco user; Translations: [Nicotine dependence, cigarettes, [...] [Chest pain, unspecified] Onset: 03-08-2015 Episodic Other acquired deformities (3 sources) Acquired spondylolisthesis; Translations: [Spondylolisthesis, site unspecified] Onset: 01-26-2023 01-26-2023 Episodic Other connective tissue disease (2 sources) Pain in left lower limb; Translations: [Pain in left leg] Onset: 03-31-2016 Episodic Other connective tissue disease (3 sources) Muscle pain; Translations: [Myalgia, unspecified site] Onset: 01-26-2023 01-26-2023 Episodic Other gastrointestinal disorders (2 sources) 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; Translations: [Irritable bowel syndrome with constipation] Resolved: 11-30-2020 Chronic Other lower respiratory disease (2 sources) Dyspnea; Translations: [Dyspnea, unspecified] Onset: 03-08-2015 Episodic Other nervous system disorders (3 sources) Skin sensation disturbance; Translations: [Unspecified disturbances of skin sensation] Onset: 01-26-2023 01-26-2023 Episodic Other screening for suspected conditions (not [...] [History of tobacco use] Onset: 10-23-2016 Episodic Spondylosis; intervertebral disc disorders; other back problems (5 sources) Low back pain; Translations: [Low back pain, unspecified] Onset: 01-26-2023 01-26-2023 Episodic Sprains and strains (2 sources) Lumbar [...] Test Name Value Interpretation Reference Range Facility [facility] 08-28-2023 FLUAV Ab CF (S) [Titer] Negative [facility] [facility] Other FLUBV Ab CF (S) [Titer] Negative [employer] Other MM screening mammo BI w/CADo n 05-13-2023 MM screening mammo BI w/CAD [facility] [place] [address] [place], [place] [id number] Mammography Report Signed Patient: Gina Pierre MR#: [id number] : 1940 Acct:[id number] Age/Sex: 82 / F ADM Date: 05/13/23 Loc: [place] Room: Type: [facility] Attending Dr: Aamir Xavier DO Copies to: [...] Gina Garrett M.D.05/13/2023 3:35 PM Dictation Location: [facility] Transcribed By: [facility] 05/13/23 1530 Dictated By: Gina Garrett MD 05/13/23 1525 Signed By: 05/13/23 1536 Normal [facility] CBC AUTO DIFFon 05-30-2023 BASO # 0.0 103/ul Normal 0.0-0.1 [facility] Comment on above: Performed By: #### L IVER, BMP, LIPA, EDSON #### [facility] [address] [place] [address] Dr. Julia Velasquez Basophils/100 WBC (Bld) 0.4 % Normal 0.2-2.0 [facility] Comment on above: Performed By: #### L IVER, BMP, LIPA, EDSON #### [facility] [address] [place] [address] Dr. Julia Velasquez EO # 0.3 103/ul Normal 0.0-0.7 [facility] Comment on above: Performed By: #### L IVER, BMP, LIPA, EDSON #### [facility] [address] [place] [address] Dr. Julia Velasquez Eosinophils/100 WBC (Bld) 5.5 % Normal 0.9-7.0 [facility] Comment on above: Performed By: #### L IVER, BMP, LIPA, EDSON #### [facility] [address] [place] [address] Dr. Julia Velasquez Erythrocyte distribution width (RBC) [Ratio] 14.1 % Normal 11.0-15.0 [facility] Comment on above: Performed By: #### L IVER, BMP, LIPA, EDSON #### [facility] [address] [place] [address] Dr. Julia Velasquez Hematocrit (Bld) [Volume fraction] 36.4 % Normal 36.0-48.0 [facility] Comment on above: Performed By: #### L IVER, BMP, LIPA, EDSON #### [facility] [address] [place] [address] Dr. Julia Velasquez Hemoglobin (Bld) [Mass/Vol] 11.4 g/dL Critically low 12.0-16.0 [facility] Comment on above: Performed By: #### L IVER, BMP, LIPA, EDSON #### [facility] [address] [place] [address] Dr. Julia Velasquez IG # 0.02 10e3/ul Normal 0.00-0.03 [facility] Comment on above: Performed By: #### L IVER, BMP, LIPA, EDSON #### [facility] [address] [place] [address] Dr. Julia Velasquez IG % 0.4 % Normal 0.0-0.5 [facility] Comment on above: Performed By: #### L IVER, BMP, LIPA, EDSON #### [facility] [address] [place] [address] Dr. Julia Velasquez LYMPH # 1.4 103/ul Normal 1.2-3.8 [facility] Comment on above: Performed By: #### L IVER, BMP, LIPA, EDSON #### [facility] [address] [place] [address] Dr. Julia Velasquez Lymphocytes/100 WBC (Bld) 28.4 % Normal 20.5-60.0 [facility] Comment on above: Performed By: #### L IVER, BMP, LIPA, EDSON #### [facility] [address] [place] [address] Dr. Julia Velasquez MANUAL DIFF REQ NO Normal [facility] Comment on above: Performed By: #### L IVER, BMP, LIPA, EDSON #### [facility] [address] [place] [address] Dr. Julia Velasquez MCH (RBC) [Entitic mass] 30.0 pg Normal 26.7-34.0 [facility] Comment on above: Performed By: #### L IVER, BMP, LIPA, EDSON #### [facility] [address] [place] [address] Dr. Julia Velasquez MCHC (RBC) [Mass/Vol] 31.3 g/dL Normal 29.9-35.2 [facility] Comment on above: Performed By: #### L IVER, BMP, LIPA, EDSON #### [facility] [address] [place] [address] Dr. Julia Velasquez MCV (RBC) [Entitic vol] 95.8 fL Normal 81.0-99.0 [facility] Comment on above: Performed By: #### L IVER, BMP, LIPA, EDSON #### [facility] [address] [place] [address] Dr. Julia Velasquez MONO # 0.4 103/ul Normal 0.3-0.8 [facility] Comment on above: Performed By: #### L IVER, BMP, LIPA, EDSON #### [facility] [address] [place] [address] Dr. Julia Velasquez Monocytes/100 WBC (Bld) 7.8 % Normal 1.7-12.0 [facility] Comment on above: Performed By: #### L IVER, BMP, LIPA, EDSON #### [facility] [address] [place] [address] Dr. Julia Velasquez NEUT # 2.8 103/ul Normal 1.4-6.5 [facility] Comment on above: Performed By: #### L IVER, BMP, LIPA, EDSON #### [facility] [address] [place] [address] Dr. Julia Velasquez Neutrophils/100 WBC (Bld) 57.5 % Normal 43.0-75.0 [facility] Comment on above: Performed By: #### L IVER, BMP, LIPA, EDSON #### [facility] [address] [place] [address] Dr. Julia Velasquez Platelet mean volume (Bld) [Entitic vol] 10.6 fL Normal 9.5-13.5 [facility] Comment on above: Performed By: #### L IVER, BMP, LIPA, EDSON #### [facility] [address] [place] [address] Dr. Julia Velasquez PLT 212 103/ul Normal 150-450 [facility] Comment on above: Performed By: #### L IVER, BMP, LIPA, EDSON #### [facility] [address] [place] [address] Dr. Julia Velasquez RBC 3.80 106/ul Critically low 4.20-5.40 [facility] Comment on above: Performed By: #### L IVER, BMP, LIPA, EDSON #### [facility] [address] [place] [address] Dr. Julia Velasquez WBC 4.9 103/ul Normal 4.0-11.0 [facility] Comment on above: Performed By: #### L IVER, BMP, LIPA, EDSON #### [facility] [address] [place] [address] Dr. Julia Velasquez FERRITINon 02-03-2023 Ferritin [Mass/Vol] 63.0 ng/mL Normal 8.0-252.0 [facility] Comment on above: Performed By: #### L IVER, BMP, LIPA, EDSON #### [facility] [address] [place] [address] Dr. Julia Velasquez IRON AND TIBCon 02-03-2023 % SATURATION 25.5 % Normal [facility] Comment on above: Performed By: #### L IVER, BMP, LIPA, EDSON #### [facility] [address] [place] [address] Dr. Julia Velasquez Iron [Mass/Vol] 100.0 ug/dL Normal 50.0-170.0 [facility] Comment on above: Performed By: #### L IVER, BMP, LIPA, EDSON #### [facility] [address] [place] [address] Dr. Julia Velasquez TIBC DIRECT 392.0 ug/dL Normal 250.0-450.0 [facility] Comment on above: Performed By: #### L IVER, BMP, LIPA, EDSON #### [facility] [address] [place] [address] Dr. Julia Velasquez PROF CHEM 8 (BAS METB)on Anion gap [Moles/Vol] 13.0 mmol/L Normal [facility] Comment on above: Performed By: #### B MP #### [facility] [address] [place] [address] Dr. Julia Velasquez Calcium [Mass/Vol] 8.9 mg/dL Normal 8.5-10.1 [facility] Comment on above: Performed By: #### B MP #### [facility] [address] [place], [place] [id number] Dr. Julia Velasquez Chloride [Moles/Vol] 106 mmol/L Normal 98-107 [facility] Comment on above: Performed By: #### B MP #### [facility] [address] [address] [address] Julia Velasquez CO2 [Moles/Vol] 27.7 mmol/L Normal 21.0-32.0 [facility] Comment on above: Performed By: #### B MP #### [facility] [address] [address] [address] Julia Velasquez Creatinine [Mass/Vol] 1.24 mg/dL Critically high 0.55-1.02 [facility] Comment on above: Performed By: #### B MP #### [facility] [address] [place] [address] Dr. Julia Velasquez EGFR-AF KAZAKH 50 mL/min/1.73m2 Critically low >=60 [facility] Comment on above: Performed By: #### B MP #### [facility] [address] [place] [address] Dr. Julia Velasquez EGFR-NON AF KAZAKH 42 mL/min/1.73m2 Critically low >=60 [facility] Comment on above: Performed By: #### B MP #### [facility] [address] [place] [address] Dr. Julia Velasquez Glucose [Mass/Vol] 99 mg/dL Normal 74-106 [facility] Comment on above: Performed By: #### B MP #### [facility] [address] [address] [address] Julia Velasquez Potassium [Moles/Vol] 3.7 mmol/L Normal 3.5-5.1 [facility] Comment on above: Performed By: #### B MP #### [facility] [address] [address] [address] Julia Velasquez Sodium [Moles/Vol] 143 mmol/L Normal 136-145 [facility] Comment on above: Performed By: #### B MP #### [facility] [address] [address] [address] Julia Velasquez Urea nitrogen [Mass/Vol] 12.0 mg/dL Normal 7.0-18.0 [facility] Comment on above: Performed By: #### B MP #### [facility] [address] [place] [address] Dr. Julia Velasquez Urea nitrogen/Creatinine [Mass ratio] 9.7 mg/mg Normal [facility] Comment on above: Performed By: #### B MP #### [facility] [address] [place] [address] Dr. Julia Velasquez UA RANDOM W/MICROSCOPICon BACTERIA TRACE Abnormal NONE SEEN [facility] Comment on above: Performed By: #### L IVER, BMP, LIPA, EDSON #### [facility] [address] [place] [address] Dr. Julia Velasquez Bilirubin Ql (U) Negative Normal NEGATIVE [facility] Comment on above: Performed By: #### L IVER, BMP, LIPA, EDSON #### [facility] [address] [place] [address] Dr. Julia Velasquez CAST NONE SEEN Normal NONE SEEN [facility] Comment on above: Performed By: #### L IVER, BMP, LIPA, EDSON #### [facility] [address] [place] [address] Dr. Julia Velasquez Clarity (U) CLEAR Normal CLEAR [facility] Comment on above: Performed By: #### L IVER, BMP, LIPA, EDSON #### [facility] [address] [place] [address] Dr. Julia Velasquez Color (U) LT. YELLOW Normal YELLOW [facility] Comment on above: Performed By: #### L IVER, BMP, LIPA, EDSON #### [facility] [address] [place] [address] Dr. Julia Velasquez Crystals LM Nom (Urine sed) NONE SEEN Normal NONE SEEN [facility] Comment on above: Performed By: #### L IVER, BMP, LIPA, EDSON #### [facility] [address] [place] [address] Dr. Julia Velasquez Epithelial cells LM Ql (Urine sed) MODERATE Abnormal NONE SEEN /RARE [facility] Comment on above: Performed By: #### L IVER, BMP, LIPA, EDSON #### [facility] [address] [address] [address] Julia Velasquez Glucose Ql (U) Negative Normal NEGATIVE [facility] Comment on above: Performed By: #### L IVER, BMP, LIPA, EDSON #### [facility] [address] [address] [address] Julia Velasquez Hemoglobin Ql (U) Negative Normal NEGATIVE [facility] Comment on above: Performed By: #### L IVER, BMP, LIPA, EDSON #### [facility] [address] [address] [address] Julia Velasquez Ketones Ql (U) Negative Normal NEGATIVE [facility] Comment on above: Performed By: #### L IVER, BMP, LIPA, EDSON #### [facility] [address] [place] [address] Dr. Julia Velasquez LEUKOCYTES Negative Normal NEGATIVE [facility] Comment on above: Performed By: #### L IVER, BMP, LIPA, EDSON #### [facility] [address] [address] [address] Julia Velasquez MUCOUS NONE SEEN Normal NONE SEEN [facility] Comment on above: Performed By: #### L IVER, BMP, LIPA, EDSON #### [facility] [address] [address] [address] Julia Velasquez Nitrite Ql (U) Negative Normal NEGATIVE [facility] Comment on above: Performed By: #### L IVER, BMP, LIPA, EDSON #### [facility] [address] [address] [address] Julia Velasquez pH (U) 7.5 [pH] Normal 5-9 [facility] Comment on above: Performed By: #### L IVER, BMP, LIPA, EDSON #### [facility] [address] [address] [address] Julia Velasquez RBC 0-2 Normal 0-2 [facility] Comment on above: Performed By: #### L IVER, BMP, LIPA, EDSON #### [facility] [address] [address] [address] Julia Velasquez SPEC GRAVITY 1.010 Normal 1.005-<=1.025 [facility] Comment on above: Performed By: #### L IVER, BMP, LIPA, EDSON #### [facility] [address] [place] [address] Dr. Julia Velasquez UA PROTEIN Negative Normal NEGATIVE/ TRACE [facility] Comment on above: Performed By: #### L IVER, BMP, LIPA, EDSON #### [facility] [address] [place] [address] Dr. Julia Velasquez Urobilinogen Qn (U) 2.0 {Avery'U}/dL Abnormal 0.2 - 1. 0 [facility] Comment on above: Performed By: #### L IVER, BMP, LIPA, EDSON #### [facility] [address] [place] [address] Dr. Julia Velasquez WBC NONE SEEN Normal NONE SEEN [facility] Comment on above: Performed By: #### L IVER, BMP, LIPA, EDSON #### [facility] [address] [place] [address] Dr. Julia Velasquez VIT B12 AND FOLATEon 023 Cobalamin (Vitamin B12) [Mass/Vol] 199.0 pg/mL Normal 193.0-986.0 [facility] Comment on above: Performed By: #### L IVER, BMP, LIPA, EDSON #### [facility] [address] [place] [address] Dr. Julia Velasquez FOLATE 27.10 ng/mL Normal 8.60-58.90 [facility] Comment on above: Performed By: #### L IVER, BMP, LIPA, EDSON #### [facility] [address] [place] [address] Dr. Julia Velasquez XR CHEST 2 Von [...] NANDO CARLSON Date: 2023-02-03 14:28 Normal [facility] CBC AUTO DIFFon 01-07-2023 BASO # 0.0 103/ul Normal 0.0-0.1 [facility] Comment on above: Performed By: #### L IVER, BMP, LIPA, EDSON #### [facility] [address] [place] [address] Dr. Julia Velasquez Basophils/100 WBC (Bld) 0.6 % Normal 0.2-2.0 [facility] Comment on above: Performed By: #### L IVER, BMP, LIPA, EDSON #### [facility] [address] [place] [address] Dr. Julia Velasquez EO # 0.1 103/ul Normal 0.0-0.7 [facility] Comment on above: Performed By: #### L IVER, BMP, LIPA, EDSON #### [facility] [address] [place] [address] Dr. Julia Velasquez Eosinophils/100 WBC (Bld) 3.3 % Normal 0.9-7.0 [facility] Comment on above: Performed By: #### L IVER, BMP, LIPA, EDSON #### [facility] [address] [place] [address] Dr. Julia Velasquez Erythrocyte distribution width (RBC) [Ratio] 16.1 % Critically high 11.0-15.0 [facility] Comment on above: Performed By: #### L IVER, BMP, LIPA, EDSON #### [facility] [address] [place] [address] Dr. Julia Velasquez Hematocrit (Bld) [Volume fraction] 34.9 % Critically low 36.0-48.0 [facility] Comment on above: Performed By: #### L IVER, BMP, LIPA, EDSON #### [facility] [address] [place] [address] Dr. Julia Velasquez Hemoglobin (Bld) [Mass/Vol] 11.1 g/dL Critically low 12.0-16.0 [facility] Comment on above: Performed By: #### L IVER, BMP, LIPA, EDSON #### [facility] [address] [place] [address] Dr. Julia Velasquez IG # 0.05 10e3/ul Critically high 0.00-0.03 [facility] Comment on above: Performed By: #### L IVER, BMP, LIPA, EDSON #### [facility] [address] [place] [address] Dr. Julia Velasquez IG % 1.4 % Critically high 0.0-0.5 [facility] Comment on above: Performed By: #### L IVER, BMP, LIPA, EDSON #### [facility] [address] [place] [address] Dr. Julia Velasquez LYMPH # 1.1 103/ul Critically low 1.2-3.8 [facility] Comment on above: Performed By: #### L IVER, BMP, LIPA, EDSON #### [facility] [address] [place] [address] Dr. Julia Velasquez Lymphocytes/100 WBC (Bld) 31.6 % Normal 20.5-60.0 [facility] Comment on above: Performed By: #### L IVER, BMP, LIPA, EDSON #### [facility] [address] [place] [address] Dr. Julia Velasquez MANUAL DIFF REQ NO Normal [facility] Comment on above: Performed By: #### L IVER, BMP, LIPA, EDSON #### [facility] [address] [place] [address] Dr. Julia Velasquez MCH (RBC) [Entitic mass] 30.4 pg Normal 26.7-34.0 [facility] Comment on above: Performed By: #### L IVER, BMP, LIPA, EDSON #### [facility] [address] [place] [address] Dr. Julia Velasquez MCHC (RBC) [Mass/Vol] 31.8 g/dL Normal 29.9-35.2 [facility] Comment on above: Performed By: #### L IVER, BMP, LIPA, EDSON #### [facility] [address] [place] [address] Dr. Julia Velasquez MCV (RBC) [Entitic vol] 95.6 fL Normal 81.0-99.0 [facility] Comment on above: Performed By: #### L IVER, BMP, LIPA, EDSON #### [facility] [address] [place] [address] Dr. Julia Velasquez MONO # 0.2 103/ul Critically low 0.3-0.8 [facility] Comment on above: Performed By: #### L IVER, BMP, LIPA, EDSON #### [facility] [address] [place] [address] Dr. Julia Velasquez Monocytes/100 WBC (Bld) 6.1 % Normal 1.7-12.0 [facility] Comment on above: Performed By: #### L IVER, BMP, LIPA, EDSON #### [facility] [address] [place] [address] Dr. Julia Velasquez NEUT # 2.1 103/ul Normal 1.4-6.5 [facility] Comment on above: Performed By: #### L IVER, BMP, LIPA, EDSON #### [facility] [address] [place] [address] Dr. Julia Velasquez Neutrophils/100 WBC (Bld) 57.0 % Normal 43.0-75.0 [facility] Comment on above: Performed By: #### L IVER, BMP, LIPA, EDSON #### [facility] [address] [place] [address] Dr. Julia Velasquez Platelet mean volume (Bld) [Entitic vol] 10.4 fL Normal 9.5-13.5 [facility] Comment on above: Performed By: #### L IVER, BMP, LIPA, EDSON #### [facility] [address] [place] [address] Dr. Julia Velasquez PLT 167 103/ul Normal 150-450 [facility] Comment on above: Performed By: #### L IVER, BMP, LIPA, EDSON #### [facility] [address] [place] [address] Dr. Julia Velasquez RBC 3.65 106/ul Critically low 4.20-5.40 [facility] Comment on above: Performed By: #### L IVER, BMP, LIPA, EDSON #### [facility] [address] [place] [address] Dr. Julia Velasquez WBC 3.6 103/ul Critically low 4.0-11.0 [facility] Comment on above: Performed By: #### L IVER, BMP, LIPA, EDSON #### [facility] [address] [place] [address] Dr. Julia Velasquez FERRITINon 01-07-2023 Ferritin [Mass/Vol] 148.0 ng/mL Normal 8.0-252.0 [facility] Comment on above: Performed By: #### L IVER, BMP, LIPA, EDSON #### [facility] [address] [place] [address] Dr. Julia Velasquez IRON AND TIBCon 01-07-2023 % SATURATION 27.1 % Normal [facility] Comment on above: Performed By: #### L IVER, BMP, LIPA, EDSON #### [facility] [address] [place] [address] Dr. Julia Velasquez Iron [Mass/Vol] 96.0 ug/dL Normal 50.0-170.0 [facility] Comment on above: Performed By: #### L IVER, BMP, LIPA, EDSON #### [facility] [address] [place] [address] Dr. Julia Velasquez TIBC DIRECT 354.0 ug/dL Normal 250.0-450.0 [facility] Comment on above: Performed By: #### L IVER, BMP, LIPA, EDSON #### [facility] [address] [place] [address] Dr. Julia Velasquez PROF CHEM 8 (BAS METB)on Anion gap [Moles/Vol] 11.8 mmol/L Normal [facility] Comment on above: Performed By: #### L IVER, BMP, LIPA, EDSON #### [facility] [address] [place] [address] Dr. Julia Velasquez Calcium [Mass/Vol] 8.3 mg/dL Critically low 8.5-10.1 [facility] Comment on above: Performed By: #### L IVER, BMP, LIPA, EDSON #### [facility] [address] [place] [address] Dr. Julia Velasquez Chloride [Moles/Vol] 108 mmol/L Critically high 98-107 [facility] Comment on above: Performed By: #### L IVER, BMP, LIPA, EDSON #### [facility] [address] [place] [address] Dr. Julia Velasquez CO2 [Moles/Vol] 27.8 mmol/L Normal 21.0-32.0 [facility] Comment on above: Performed By: #### L IVER, BMP, LIPA, EDSON #### [facility] [address] [place] [address] Dr. Julia Velasquez Creatinine [Mass/Vol] 1.00 mg/dL Normal 0.55-1.02 [facility] Comment on above: Performed By: #### L IVER, BMP, LIPA, EDSON #### [facility] [address] [place] [address] Dr. Julia Velasquez EGFR-AF KAZAKH >60 Normal >=[address] [facility] Comment on above: Performed By: #### L IVER, BMP, LIPA, EDSON #### [facility] [address] [place] [address] Dr. Julia Velasquez EGFR-NON AF KAZAKH 53 mL/min/1.73m2 Critically low >=60 [facility] Comment on above: Performed By: #### L IVER, BMP, LIPA, EDSON #### [facility] [address] [address] [address] Julia Velasquez Glucose [Mass/Vol] 92 mg/dL Normal 74-106 [facility] Comment on above: Performed By: #### L IVER, BMP, LIPA, EDSON #### [facility] [address] [place] [address] Dr. Julia Velasquez Potassium [Moles/Vol] 3.6 mmol/L Normal 3.5-5.1 [facility] Comment on above: Performed By: #### L IVER, BMP, LIPA, EDSON #### [facility] [address] [place] [address] Dr. Julia Velasquez Sodium [Moles/Vol] 144 mmol/L Normal 136-145 [facility] Comment on above: Performed By: #### L IVER, BMP, LIPA, EDSON #### [facility] [address] [place] [address] Dr. Julia Velasquez Urea nitrogen [Mass/Vol] 8.0 mg/dL Normal 7.0-18.0 [facility] Comment on above: Performed By: #### L IVER, BMP, LIPA, EDSON #### [facility] [address] [place] [address] Dr. Julia Velasquez Urea nitrogen/Creatinine [Mass ratio] 8.0 mg/mg Normal [facility] Comment on above: Performed By: #### L IVER, BMP, LIPA, EDSON #### [facility] [address] [place] [address] Dr. Julia Velasquez RETICULOCYTEon 01-07-2023 RETIC 4.40 % Critically high 0.60-3.10 [facility] Comment on above: Performed By: #### L IVER, BMP, LIPA, EDSON #### [facility] [address] [place] [address] Dr. Julia Velasquez VIT B12 AND FOLATEon 023 Cobalamin (Vitamin B12) [Mass/Vol] 322.0 pg/mL Normal 193.0-986.0 [facility] Comment on above: Performed By: #### L IVER, BMP, LIPA, EDSON #### [facility] [address] [address] [address] Julia Velasquez FOLATE 6.10 ng/mL Critically low 8.60-58.90 [facility] Comment on above: Performed By: #### L IVER, BMP, LIPA, EDSON #### [facility] [address] [address] [address] Julia Velasquez XR CHEST 2 Von [...] NANDO CARLSON Date: 2023-01-07 11:59 Normal [facility] CBC W MANUAL DIFFon 12-15-19 23 ATYPICAL LYMPH # Normal [facility] Comment on above: Performed By: #### L IVER, BMP, LIPA, EDSON #### [facility] [address] [address] [address] Julia Velasquez ATYPICAL LYMPH % Normal [facility] Comment on above: Performed By: #### L IVER, BMP, LIPA, EDSON #### [facility] [address] [address] [address] Julia Velasquez BAND # 1.0 103/ul Critically high 0.0-0.3 [facility] Comment on above: Performed By: #### L IVER, BMP, LIPA, EDSON #### [facility] [address] [address] [address] Julia Velasquez BAND % 9 % Critically high 0-5 [facility] Comment on above: Performed By: #### L IVER, BMP, LIPA, EDSON #### [facility] [address] [place] [address] Dr. Julia GARCIAOM # 0.00 103/ul Normal 0.00-0.10 [facility] Comment on above: Performed By: #### L IVER, BMP, LIPA, EDSON #### [facility] [address] [place] [address] Dr. Julia Velasquez BASOM % 0.0 % Critically low 0.2-2.0 [facility] Comment on above: Performed By: #### L IVER, BMP, LIPA, EDSON #### [facility] [address] [place] [address] Dr. Julia Velasquez BLAST # Normal [facility] Comment on above: Performed By: #### L IVER, BMP, LIPA, EDSON #### [facility] [address] [place] [address] Dr. Julia Velasquez BLAST % Normal [facility] Comment on above: Performed By: #### L IVER, BMP, LIPA, EDSON #### [facility] [address] [place] [address] Dr. Julia Velasquez CORRECTED WBC Normal 4.0-11.0 [facility] Comment on above: Performed By: #### L IVER, BMP, LIPA, EDSON #### [facility] [address] [place] [address] Dr. Julia Velasquez EOS # 0.22 103/ul Normal 0.00-0.70 [facility] Comment on above: Performed By: #### L IVER, BMP, LIPA, EDSON #### [facility] [address] [place] [address] Dr. Julia Velasquez EOS% 2.0 % Normal 0.9-7.0 [facility] Comment on above: Performed By: #### L IVER, BMP, LIPA, EDSON #### [facility] [address] [place] [address] Dr. Julia Velasquez HCT 27.3 % Critically low 36.0-48.0 [facility] Comment on above: Performed By: #### L IVER, BMP, LIPA, EDSON #### [facility] [address] [place] [address] Dr. Julia Velasquez HGB 8.5 g/dl Critically low 12.0-16.0 [facility] Comment on above: Performed By: #### L IVER, BMP, LIPA, EDSON #### [facility] [address] [place] [address] Dr. Julia Velasquez HYPOCHROMASIA SLIGHT Normal [facility] Comment on above: Performed By: #### L IVER, BMP, LIPA, EDSON #### [facility] [address] [place] [address] Dr. Julia Velasquez LYMPHM # 0.99 103/ul Critically low 1.20-3.80 [facility] Comment on above: Performed By: #### L IVER, BMP, LIPA, EDSON #### [facility] [address] [place] [address] Dr. Julia Velasquez LYMPHM% 9.0 % Critically low 20.5-60.0 [facility] Comment on above: Performed By: #### L IVER, BMP, LIPA, EDSON #### [facility] [address] [place] [address] Dr. Julia Velasquez MCH 28.3 pg Normal 26.7-34.0 [facility] Comment on above: Performed By: #### L IVER, BMP, LIPA, EDSON #### [facility] [address] [place] [address] Dr. Julia Velasquez MCHC 31.1 g/dl Normal 29.9-35.2 [facility] Comment on above: Performed By: #### L IVER, BMP, LIPA, EDSON #### [facility] [address] [place] [address] Dr. Julia Velasquez MCV 91.0 fL Normal 81.0-99.0 [facility] Comment on above: Performed By: #### L IVER, BMP, LIPA, EDSON #### [facility] [address] [address] [address] Julia Velasquez METAMYELOCYTE # Normal [facility] Comment on above: Performed By: #### L IVER, BMP, LIPA, EDSON #### [facility] [address] [place] [address] Dr. Julia Velasquez METAMYELOCYTE % Normal [facility] Comment on above: Performed By: #### L IVER, BMP, LIPA, EDSON #### [facility] [address] [address] [address] Julia Velasquez MONOM# 0.22 103/ul Critically low 0.30-0.80 [facility] Comment on above: Performed By: #### L IVER, BMP, LIPA, EDSON #### [facility] [address] [place] [address] Dr. Julia Velasquez MONOM% 2.0 % Normal 1.7-12.0 [facility] Comment on above: Performed By: #### L IVER, BMP, LIPA, EDSON #### [facility] [address] [place] [address] Dr. Julia Velasquez MPV 10.9 fL Normal 9.5-13.5 [facility] Comment on above: Performed By: #### L IVER, BMP, LIPA, EDSON #### [facility] [address] [place] [address] Dr. Julia Velasquez MYELOCYTE # Normal [facility] Comment on above: Performed By: #### L IVER, BMP, LIPA, EDSON #### [facility] [address] [place] [address] Dr. Julia Velasquez MYELOCYTE % Normal [facility] Comment on above: Performed By: #### L IVER, BMP, LIPA, EDSON #### [facility] [address] [place] [address] Dr. Julia Velasquez NRBC Normal [facility] Comment on above: Performed By: #### L IVER, BMP, LIPA, EDSON #### [facility] [address] [place] [address] Dr. Julia Velasquez PLT 240 103/ul Normal 150-450 [facility] Comment on above: Performed By: #### L IVER, BMP, LIPA, EDSON #### [facility] [address] [place] [address] Dr. Julia Velasquez RBC 3.00 106/ul Critically low 4.20-5.40 [facility] Comment on above: Performed By: #### L IVER, BMP, LIPA, EDSON #### [facility] [address] [place] [address] Dr. Julia Velasquez RDW 17.2 % Critically high 11.0-15.0 [facility] Comment on above: Performed By: #### L IVER, BMP, LIPA, EDSON #### [facility] [address] [place] [address] Dr. Julia Velasquez SEG # 8.58 103/ul Critically high 1.40-6.50 [facility] Comment on above: Performed By: #### L IVER, BMP, LIPA, EDSON #### [facility] [address] [place] [address] Dr. Julia Velasquez SEG % 78.0 % Critically high 43.0-75.0 [facility] Comment on above: Performed By: #### L IVER, BMP, LIPA, EDSON #### [facility] [address] [place] [address] Dr. Julia Velasquez WBC 11.0 103/ul Normal 4.0-11.0 [facility] Comment on above: Performed By: #### L IVER, BMP, LIPA, EDSON #### [facility] [address] [place] [address] Dr. Julia Velasquez PROF 14(COMP METB)on 023 Albumin [Mass/Vol] 1.3 g/dL Critically low 3.4-5.0 [facility] Comment on above: Performed By: #### C MP #### [facility] [address] [place] [address] Dr. Julia Velasquez Albumin/Globulin [Mass ratio] 0.3 {ratio} Normal [facility] Comment on above: Performed By: #### C MP #### [facility] [address] [address] [address] Julia Velasquez ALP [Catalytic activity/Vol] 93 U/L Normal 46-116 [facility] Comment on above: Performed By: #### C MP #### [facility] [address] [address] [address] Julia Velasquez ALT [Catalytic activity/Vol] 30 U/L Normal 14-59 [facility] Comment on above: Performed By: #### C MP #### [facility] Laboratory [address] [address] [address] Julia Velasquez Anion gap [Moles/Vol] 13.4 mmol/L Normal [facility] Comment on above: Performed By: #### C MP #### [facility] [address] [place] [address] Dr. Julia Velasquez AST [Catalytic activity/Vol] 71 U/L Critically high 15-37 [facility] Comment on above: Performed By: #### C MP #### [facility] [address] [address] [address] Julia Velasquez Bilirubin [Mass/Vol] 1.2 mg/dL Critically high 0.2-1.0 [facility] Comment on above: Performed By: #### C MP #### [facility] [address] [place] [address] Dr. Julia Velasquez Calcium [Mass/Vol] 8.1 mg/dL Critically low 8.5-10.1 [facility] Comment on above: Performed By: #### C MP #### [facility] [address] [place] [address] Dr. Julia Velasquez Chloride [Moles/Vol] 116 mmol/L Critically high 98-107 [facility] Comment on above: Performed By: #### C MP #### [facility] [address] [address] [address] Julia Velasquez CO2 [Moles/Vol] 21.3 mmol/L Normal 21.0-32.0 [facility] Comment on above: Performed By: #### C MP #### [facility] [address] [address] [address] Julia Velasquez Creatinine [Mass/Vol] 1.10 mg/dL Critically high 0.55-1.02 [facility] Comment on above: Performed By: #### C MP #### [facility] [address] [address] [address] Julia Velasquez EGFR-AF KAZAKH 58 mL/min/1.73m2 Critically low >=60 [facility] Comment on above: Performed By: #### C MP #### [facility] [address] [address] [address] Julia Velasquez EGFR-NON AF KAZAKH 48 mL/min/1.73m2 Critically low >=60 [facility] Comment on above: Performed By: #### C MP #### [facility] [address] [place] [address] Dr. Julia Velasquez Globulin (S) [Mass/Vol] 3.8 g/dL Normal [facility] Comment on above: Performed By: #### C MP #### [facility] [address] [place] [address] Dr. Julia Velasquez Glucose [Mass/Vol] 110 mg/dL Critically high 74-106 [facility] Comment on above: Performed By: #### C MP #### [facility] [address] [address] [address] Julia Velasquez Potassium [Moles/Vol] 4.7 mmol/L Normal 3.5-5.1 [facility] Comment on above: Performed By: #### C MP #### [facility] [address] [address] [address] Julia Velasquez Protein [Mass/Vol] 5.1 g/dL Critically low 6.4-8.2 [facility] Comment on above: Performed By: #### C MP #### [facility] [address] [address] [address] Julia Velasquez Sodium [Moles/Vol] 146 mmol/L Critically high 136-145 [facility] Comment on above: Performed By: #### C MP #### [facility] [address] [place] [address] Dr. Julia Velasquez Urea nitrogen [Mass/Vol] 34.0 mg/dL Critically high 7.0-18.0 [facility] Comment on above: Performed By: #### C MP #### [facility] [address] [place] [address] Dr. Julia Velasquez Urea nitrogen/Creatinine [Mass ratio] 30.9 mg/mg Normal [facility] Comment on above: Performed By: #### C MP #### [facility] [address] [place] [address] Dr. Julia Velasquez CBC W MANUAL DIFFon 12-14-19 23 ATYPICAL LYMPH # 0.21 103/ul Normal [facility] Comment on above: Performed By: #### C MP #### [facility] [address] [place] [address] Dr. Julia Velasquez ATYPICAL LYMPH % 1 % Normal [facility] Comment on above: Performed By: #### C MP #### [facility] [address] [place] [address] Dr. Julia Velasquez BAND # 0.2 103/ul Normal 0.0-0.3 [facility] Comment on above: Performed By: #### C MP #### [facility] [address] [place] [address] Dr. Julia Velasquez BAND % 1 % Normal 0-5 [facility] Comment on above: Performed By: #### C MP #### [facility] [address] [place] [address] Dr. Julia Velasquez BASOM # 0.00 103/ul Normal 0.00-0.10 [facility] Comment on above: Performed By: #### C MP #### [facility] [address] [place] [address] Dr. Julia Velasquez BASOM % 0.0 % Critically low 0.2-2.0 [facility] Comment on above: Performed By: #### C MP #### [facility] [address] [place] [address] Dr. Julia Velasquez BLAST # Normal [facility] Comment on above: Performed By: #### C MP #### [facility] [address] [address] [address] Julia Velasquez BLAST % Normal [facility] Comment on above: Performed By: #### C MP #### [facility] [address] [address] [address] Julia Velasquez CORRECTED WBC Normal 4.0-11.0 [facility] Comment on above: Performed By: #### C MP #### [facility] [address] [address] [address] Julia Velasquez EOS # 0.00 103/ul Normal 0.00-0.70 [facility] Comment on above: Performed By: #### C MP #### [facility] [address] [place] [address] Dr. Julia Velasquez EOS% 0.0 % Critically low 0.9-7.0 [facility] Comment on above: Performed By: #### C MP #### [facility] [address] [place] [address] Dr. Julia Velasquez HCT 26.7 % Critically low 36.0-48.0 [facility] Comment on above: Performed By: #### C MP #### [facility] [address] [place] [address] Dr. Julia Velasquez HGB 8.8 g/dl Critically low 12.0-16.0 [facility] Comment on above: Performed By: #### C MP #### [facility] [address] [place] [address] Dr. Julia Velasquez LYMPHM # 1.05 103/ul Critically low 1.20-3.80 [facility] Comment on above: Performed By: #### C MP #### [facility] [address] [place] [address] Dr. Julia Velasquez LYMPHM% 5.0 % Critically low 20.5-60.0 [facility] Comment on above: Performed By: #### C MP #### [facility] [address] [place] [address] Dr. Julia Velasquez MCH 29.0 pg Normal 26.7-34.0 [facility] Comment on above: Performed By: #### C MP #### [facility] [address] [place] [address] Dr. Julia Velasquez MCHC 33.0 g/dl Normal 29.9-35.2 [facility] Comment on above: Performed By: #### C MP #### [facility] [address] [place] [address] Dr. Julia Velasquez MCV 88.1 fL Normal 81.0-99.0 [facility] Comment on above: Performed By: #### C MP #### [facility] [address] [place] [address] Dr. Julia Velasquez METAMYELOCYTE # Normal [facility] Comment on above: Performed By: #### C MP #### [facility] [address] [place] [address] Dr. Julia Velasquez METAMYELOCYTE % Normal [facility] Comment on above: Performed By: #### C MP #### [facility] [address] [place] [address] Dr. Julia Velasquez MONOM# 0.21 103/ul Critically low 0.30-0.80 [facility] Comment on above: Performed By: #### C MP #### [facility] [address] [place] [address] Dr. Julia Velasquez MONOM% 1.0 % Critically low 1.7-12.0 [facility] Comment on above: Performed By: #### C MP #### [facility] [address] [place] [address] Dr. Julia Velasquez MPV 10.6 fL Normal 9.5-13.5 [facility] Comment on above: Performed By: #### C MP #### [facility] [address] [place] [address] Dr. Julia Velasquez MYELOCYTE # Normal [facility] Comment on above: Performed By: #### C MP #### [facility] [address] [place] [address] Dr. Julia Velaqsuez MYELOCYTE % Normal [facility] Comment on above: Performed By: #### C MP #### [facility] [address] [address] [address] Julia Velasquez NRBC Normal [facility] Comment on above: Performed By: #### C MP #### [facility] [address] [address] [address] Julia Velasquez PLT 271 103/ul Normal 150-450 [facility] Comment on above: Performed By: #### C MP #### [facility] [address] [address] [address] Julia Velasquez RBC 3.03 106/ul Critically low 4.20-5.40 [facility] Comment on above: Performed By: #### C MP #### [facility] [address] [address] [address] Julia Velasquez RDW 16.7 % Critically high 11.0-15.0 [facility] Comment on above: Performed By: #### C MP #### [facility] [address] [address] [address] Julia Velasquez SEG # 19.41 103/ul Critically high 1.40-6.50 [facility] Comment on above: Performed By: #### C MP #### [facility] [address] [address] [address] Julia Velasquez SEG % 92.0 % Critically high 43.0-75.0 [facility] Comment on above: Performed By: #### C MP #### [facility] [address] [address] [address] Julia Velasquez WBC 21.1 103/ul Critically high 4.0-11.0 [facility] Comment on above: Performed By: #### C MP #### [facility] [address] [address] [address] Julia Velasquez PROF 14(COMP METB)on 023 Albumin [Mass/Vol] 1.4 g/dL Critically low 3.4-5.0 [facility] Comment on above: Performed By: #### C MP #### [facility] [address] [address] [address] Julia Velasquez Albumin/Globulin [Mass ratio] 0.4 {ratio} Normal [facility] Comment on above: Performed By: #### C MP #### [facility] [address] [address] [address] Julia Velasquez ALP [Catalytic activity/Vol] 87 U/L Normal 46-116 [facility] Comment on above: Performed By: #### C MP #### [facility] [address] [address] [address] Julia Velasquez ALT [Catalytic activity/Vol] 26 U/L Normal 14-59 [facility] Comment on above: Performed By: #### C MP #### [facility] [address] [address] [address] Julia Velasquez Anion gap [Moles/Vol] 14.7 mmol/L Normal [facility] Comment on above: Performed By: #### C MP #### [facility] [address] [address] [address] Julia Velasquez AST [Catalytic activity/Vol] 59 U/L Critically high 15-37 [facility] Comment on above: Performed By: #### C MP #### [facility] [address] [address] [address] Julia Velasquez Bilirubin [Mass/Vol] 1.5 mg/dL Critically high 0.2-1.0 [facility] Comment on above: Performed By: #### C MP #### [facility] [address] [address] [address] Julia Velasquez Calcium [Mass/Vol] 8.1 mg/dL Critically low 8.5-10.1 [facility] Comment on above: Performed By: #### C MP #### [facility] [address] [address] [address] Julia Velasquez Chloride [Moles/Vol] 118 mmol/L Critically high 98-107 [facility] Comment on above: Performed By: #### C MP #### [facility] [address] [address] [address] Julia Velasquez CO2 [Moles/Vol] 20.6 mmol/L Critically low 21.0-32.0 [facility] Comment on above: Performed By: #### C MP #### [facility] [address] [address] [address] Julia Velasquez Creatinine [Mass/Vol] 1.20 mg/dL Critically high 0.55-1.02 [facility] Comment on above: Performed By: #### C MP #### [facility] [address] [address] [address] Julia Velasquez EGFR-AF KAZAKH 52 mL/min/1.73m2 Critically low >=60 [facility] Comment on above: Performed By: #### C MP #### [facility] [address] [address] [address] Julia Velasquez EGFR-NON AF KAZAKH 43 mL/min/1.73m2 Critically low >=60 [facility] Comment on above: Performed By: #### C MP #### [facility] [address] [address] [address] Julia Velasquez Globulin (S) [Mass/Vol] 3.4 g/dL Normal [facility] Comment on above: Performed By: #### C MP #### [facility] [address] [address] [address] Julia Velasquez Glucose [Mass/Vol] 119 mg/dL Critically high 74-106 [facility] Comment on above: Performed By: #### C MP #### [facility] [address] [address] [address] Julia Velasquez Potassium [Moles/Vol] 4.3 mmol/L Normal 3.5-5.1 [facility] Comment on above: Performed By: #### C MP #### [facility] [address] [address] [address] Julia Velasquez Protein [Mass/Vol] 4.8 g/dL Critically low 6.4-8.2 [facility] Comment on above: Performed By: #### C MP #### [facility] [address] [address] [address] Julia Velasquez Sodium [Moles/Vol] 149 mmol/L Critically high 136-145 [facility] Comment on above: Performed By: #### C MP #### [facility] [address] [address] [address] Julia Velasquez Urea nitrogen [Mass/Vol] 47.0 mg/dL Critically high 7.0-18.0 [facility] Comment on above: Performed By: #### C MP #### [facility] [address] [address] [address] Julia Velasquez Urea nitrogen/Creatinine [Mass ratio] 39.2 mg/mg Normal [facility] Comment on above: Performed By: #### C MP #### [facility] [address] [address] [address] Julia Velasquez CBC W MANUAL DIFFon 12-13-19 23 ATYPICAL LYMPH # Normal [facility] Comment on above: Performed By: #### L IVER, BMP, LIPA, EDSON #### [facility] [address] [place] [address] Dr. Julia Velasquez ATYPICAL LYMPH % Normal [facility] Comment on above: Performed By: #### L IVER, BMP, LIPA, EDSON #### [facility] [address] [address] [address] Julia Velasquez BAND # 0.9 103/ul Critically high 0.0-0.3 [facility] Comment on above: Performed By: #### L IVER, BMP, LIPA, EDSON #### [facility] [address] [place] [address] Dr. Julia Velasquez BAND % 3 % Normal 0-5 [facility] Comment on above: Performed By: #### L IVER, BMP, LIPA, EDSON #### [facility] [address] [address] [address] Julia Velasquez BASOM # 0.00 103/ul Normal 0.00-0.10 [facility] Comment on above: Performed By: #### L IVER, BMP, LIPA, EDSON #### [facility] [address] [address] [address] Julia Velasquez BASOM % 0.0 % Critically low 0.2-2.0 [facility] Comment on above: Performed By: #### L IVER, BMP, LIPA, EDSON #### [facility] [address] [place] [address] Dr. Julia Velasquez BLAST # Normal [facility] Comment on above: Performed By: #### L IVER, BMP, LIPA, EDSON #### [facility] [address] [address] [address] Julia Velasquez BLAST % Normal [facility] Comment on above: Performed By: #### L IVER, BMP, LIPA, EDSON #### [facility] [address] [place] [address] Dr. Julia Velasquez CORRECTED WBC Normal 4.0-11.0 [facility] Comment on above: Performed By: #### L IVER, BMP, LIPA, EDSON #### [facility] [address] [place] [address] Dr. Julia Velasquez EOS # 0.00 103/ul Normal 0.00-0.70 [facility] Comment on above: Performed By: #### L IVER, BMP, LIPA, EDSON #### [facility] [address] [place] [address] Dr. Julia Velasquez EOS% 0.0 % Critically low 0.9-7.0 [facility] Comment on above: Performed By: #### L IVER, BMP, LIPA, EDSON #### [facility] [address] [place] [address] Dr. Julia Velasquez HCT 28.9 % Critically low 36.0-48.0 [facility] Comment on above: Performed By: #### L IVER, BMP, LIPA, EDSON #### [facility] [address] [place] [address] Dr. Julia Velasquez HGB 9.5 g/dl Critically low 12.0-16.0 [facility] Comment on above: Performed By: #### L IVER, BMP, LIPA, EDSON #### [facility] [address] [place] [address] Dr. Julia Velasquez LYMPHM # 1.21 103/ul Normal 1.20-3.80 [facility] Comment on above: Performed By: #### L IVER, BMP, LIPA, EDSON #### [facility] [address] [address] [address] Julia Velasquez LYMPHM% 4.0 % Critically low 20.5-60.0 [facility] Comment on above: Performed By: #### L IVER, BMP, LIPA, EDSON #### [facility] [address] [place] [address] Dr. Julia Velasquez MCH 29.2 pg Normal 26.7-34.0 [facility] Comment on above: Performed By: #### L IVER, BMP, LIPA, EDSON #### [facility] [address] [place] [address] Dr. Julia Velasquez MCHC 32.9 g/dl Normal 29.9-35.2 [facility] Comment on above: Performed By: #### L IVER, BMP, LIPA, EDSON #### [facility] [address] [place] [address] Dr. Julia Velasquez MCV 88.9 fL Normal 81.0-99.0 [facility] Comment on above: Performed By: #### L IVER, BMP, LIPA, EDSON #### [facility] [address] [place] [address] Dr. Julia Velasquez METAMYELOCYTE # Normal [facility] Comment on above: Performed By: #### L IVER, BMP, LIPA, EDSON #### [facility] [address] [place] [address] Dr. Julia Velasquez METAMYELOCYTE % Normal [facility] Comment on above: Performed By: #### L IVER, BMP, LIPA, EDSON #### [facility] [address] [place] [address] Dr. Julia Velasquez MONOM# 1.21 103/ul Critically high 0.30-0.80 [facility] Comment on above: Performed By: #### L IVER, BMP, LIPA, EDSON #### [facility] [address] [place] [address] Dr. Julia Velasquez MONOM% 4.0 % Normal 1.7-12.0 [facility] Comment on above: Performed By: #### L IVER, BMP, LIPA, EDSON #### [facility] [address] [address] [address] Julia Velasquez MPV 11.2 fL Normal 9.5-13.5 [facility] Comment on above: Performed By: #### L IVER, BMP, LIPA, EDSON #### [facility] [address] [address] [address] Julia Velasquez MYELOCYTE # Normal [facility] Comment on above: Performed By: #### L IVER, BMP, LIPA, EDSON #### [facility] [address] [place] [address] Dr. Julia Velasquez MYELOCYTE % Normal [facility] Comment on above: Performed By: #### L IVER, BMP, LIPA, EDSON #### [facility] [address] [place] [address] Dr. Julia Velasquez NRBC 2 Normal [facility] Comment on above: Performed By: #### L IVER, BMP, LIPA, EDSON #### [facility] [address] [address] [address] Julia Velasquez PLT 273 103/ul Normal 150-450 [facility] Comment on above: Performed By: #### L IVER, BMP, LIPA, EDSON #### [facility] [address] [address] [address] Julia Velasquez RBC 3.25 106/ul Critically low 4.20-5.40 [facility] Comment on above: Performed By: #### L IVER, BMP, LIPA, EDSON #### [facility] [address] [address] [address] Julia Velasquez RDW 16.0 % Critically high 11.0-15.0 [facility] Comment on above: Performed By: #### L IVER, BMP, LIPA, EDSON #### [facility] [address] [address] [address] Julia Velasquez SEG # 26.97 103/ul Critically high 1.40-6.50 [facility] Comment on above: Performed By: #### L IVER, BMP, LIPA, EDSON #### [facility] [address] [place] [address] Dr. Julia Velasquez SEG % 89.0 % Critically high 43.0-75.0 [facility] Comment on above: Performed By: #### L IVER, BMP, LIPA, EDSON #### [facility] [address] [place] [address] Dr. Julia Velasquez WBC 30.3 103/ul Critically high 4.0-11.0 [facility] Comment on above: Performed By: #### L IVER, BMP, LIPA, EDSON #### [facility] [address] [place] [address] Dr. Julia Velasquez GI PANEL (PCR)on 12-12-2022 Adenovirus F 40/41 Not detected Normal NOT DETECTED [facility] Comment on above: Performed By: #### L IVER, BMP, LIPA, EDSON #### [facility] [address] [place] [address] Dr. Julia Velasquez Astrovirus Not detected Normal NOT DETECTED [facility] Comment on above: Performed By: #### L IVER, BMP, LIPA, EDSON #### [facility] [address] [place] [address] Dr. Julia Velasquez C. Diff toxin A/B Not detected Normal NOT DETECTED [facility] Comment on above: Performed By: #### L IVER, BMP, LIPA, EDSON #### [facility] [address] [place] [address] Dr. Julia Velasquez Campylobacter Not detected Normal NOT DETECTED [facility] Comment on above: Performed By: #### L IVER, BMP, LIPA, EDSON #### [facility] [address] [place] [address] Dr. Julia Velasquez Cryptosporidium Not detected Normal NOT DETECTED [facility] Comment on above: Performed By: #### L IVER, BMP, LIPA, EDSON #### [facility] [address] [place] [address] Dr. Julia Velasquez Cyclos. Cayetanensis Not detected Normal NOT DETECTED [facility] Comment on above: Performed By: #### L IVER, BMP, LIPA, EDSON #### [facility] [address] [place] [address] Dr. Julia Velasquez E. Coli O157 Not Applicable Normal Not Applicable [facility] Comment on above: Performed By: #### L IVER, BMP, LIPA, EDSON #### [facility] [address] [place] [address] Dr. Julia Velasquez E. histolytica Not detected Normal NOT DETECTED [facility] Comment on above: Performed By: #### L IVER, BMP, LIPA, EDSON #### [facility] [address] [place] [address] Dr. Julia Velasquez EAEC Not detected Normal NOT DETECTED [facility] Comment on above: Performed By: #### L IVER, BMP, LIPA, EDSON #### [facility] [address] [place] [address] Dr. Julia Velasquez EIEC Not detected Normal NOT DETECTED [facility] Comment on above: Performed By: #### L IVER, BMP, LIPA, EDSON #### [facility] [address] [place] [address] Dr. Julia Velasquez EPEC Not detected Normal NOT DETECTED [facility] Comment on above: Performed By: #### L IVER, BMP, LIPA, EDSON #### [facility] [address] [place] [address] Dr. Julia Velasquez ETEC Not detected Normal NOT DETECTED [facility] Comment on above: Performed By: #### L IVER, BMP, LIPA, EDSON #### [facility] [address] [place] [address] Dr. Julia Velasquez G. Lamblia Not detected Normal NOT DETECTED [facility] Comment on above: Performed By: #### L IVER, BMP, LIPA, EDSON #### [facility] [address] [place] [address] Dr. Julia Velasquez GIPANEL CONTROLS PASSED Normal [facility] Comment on above: Performed By: #### L IVER, BMP, LIPA, EDSON #### [facility] [address] [address] [address] Julia MORALES [facility] HEADER GI PANEL BACTERIA Normal [facility] Comment on above: Performed By: #### L IVER, BMP, LIPA, EDSON #### [facility] [address] [address] [address] Julia DEMPSEY ECOLI GI PANEL DIARRHEAGENIC E.COLI / SHIGELLA Normal [facility] Comment on above: Performed By: #### L IVER, BMP, LIPA, EDSON #### [facility] [address] [address] [address] Julia DEMPSEY INFO SEE BELOW Normal [facility] Comment on above: Result Comment: EAEC - Enteroaggregative E. Coli EPEC- Enteropathogenic E. Coli ETEC- Enterotoxigenic E. Coli lt/st STEC- Shigella-like toxin-producing E. Coli stx1/stx2 EIEC- Shigella/Enteroinvasive E. Coli Performed By: #### L IVER, BMP, LIPA, EDSON #### [facility] [address] [address] [address] Julia DEMPSEY PARASITES GI PANEL PARASITES Normal [facility] Comment on above: Performed By: #### L IVER, BMP, LIPA, EDSON #### [facility] [address] [address] [address] Julia DEMPSEY VIRUS GI PANEL VIRUSES Normal [facility] Comment on above: Performed By: #### L IVER, BMP, LIPA, EDSON #### [facility] [address] [address] [address] Julia Velasquez Norovirus GI/GII Not detected Normal NOT DETECTED [facility] Comment on above: Performed By: #### L IVER, BMP, LIPA, EDSON #### [facility] [address] [address] [address] Julia Velasquez P. Shigelloides Not detected Normal NOT DETECTED [facility] Comment on above: Performed By: #### L IVER, BMP, LIPA, EDSON #### [facility] [address] [place] [address] Dr. Julia Velasquez Rotavirus A Not detected Normal NOT DETECTED [facility] Comment on above: Performed By: #### L IVER, BMP, LIPA, EDSON #### [facility] [address] [place] [address] Dr. Julia Velasquez Salmonella Not detected Normal NOT DETECTED [facility] Comment on above: Performed By: #### L IVER, BMP, LIPA, EDSON #### [facility] [address] [place] [address] Dr. Julia Velasquez Sapovirus Not detected Normal NOT DETECTED [facility] Comment on above: Performed By: #### L IVER, BMP, LIPA, EDSON #### [facility] [address] [place] [address] Dr. Julia Velasquez STEC Not detected Normal NOT DETECTED [facility] Comment on above: Performed By: #### L IVER, BMP, LIPA, EDSON #### [facility] [address] [place] [address] Dr. Julia Velasquez Vibrio Not detected Normal NOT DETECTED [facility] Comment on above: Performed By: #### L IVER, BMP, LIPA, EDSON #### [facility] [address] [place] [address] Dr. Julia Velasquez Vibrio Cholera Not detected Normal NOT DETECTED [facility] Comment on above: Performed By: #### L IVER, BMP, LIPA, EDSON #### [facility] [address] [place] [address] Dr. Julia Velasquez Y. Enterocolitica Not detected Normal NOT DETECTED [facility] Comment on above: Performed By: #### L IVER, BMP, LIPA, EDOSN #### [facility] [address] [place] [address] Dr. Julia Velasquez PROF 14(COMP METB)on 023 Albumin [Mass/Vol] 1.4 g/dL Critically low 3.4-5.0 [facility] Comment on above: Performed By: #### L IVER, BMP, LIPA, EDSON #### [facility] [address] [place] [address] Dr. Julia Velasquez Albumin/Globulin [Mass ratio] 0.3 {ratio} Normal [facility] Comment on above: Performed By: #### L IVER, BMP, LIPA, EDSON #### [facility] [address] [address] [address] Julia Velasquez ALP [Catalytic activity/Vol] 89 U/L Normal 46-116 [facility] Comment on above: Performed By: #### L IVER, BMP, LIPA, EDSON #### [facility] [address] [place] [address] Dr. Julia Velasquez ALT [Catalytic activity/Vol] 27 U/L Normal 14-59 [facility] Comment on above: Performed By: #### L IVER, BMP, LIPA, EDSON #### [facility] [address] [place] [address] Dr. Julia Velasquez Anion gap [Moles/Vol] 14.7 mmol/L Normal [facility] Comment on above: Performed By: #### L IVER, BMP, LIPA, EDSON #### [facility] [address] [place] [address] Dr. Julia Velasquez AST [Catalytic activity/Vol] 58 U/L Critically high 15-37 [facility] Comment on above: Performed By: #### L IVER, BMP, LIPA, EDSON #### [facility] [address] [place] [address] Dr. Julia Velasquez Bilirubin [Mass/Vol] 2.0 mg/dL Critically high 0.2-1.0 [facility] Comment on above: Performed By: #### L IVER, BMP, LIPA, EDSON #### [facility] [address] [place] [address] Dr. Julia Velasquez Calcium [Mass/Vol] 8.8 mg/dL Normal 8.5-10.1 [facility] Comment on above: Performed By: #### L IVER, BMP, LIPA, EDSON #### [facility] [address] [place] [address] Dr. Julia Velasquez Chloride [Moles/Vol] 118 mmol/L Critically high 98-107 [facility] Comment on above: Performed By: #### L IVER, BMP, LIPA, EDSON #### [facility] [address] [address] [address] Julia Velasquez CO2 [Moles/Vol] 20.7 mmol/L Critically low 21.0-32.0 [facility] Comment on above: Performed By: #### L IVER, BMP, LIPA, EDSON #### [facility] [address] [place] [address] Dr. Julia Velasquez Creatinine [Mass/Vol] 1.63 mg/dL Critically high 0.55-1.02 [facility] Comment on above: Performed By: #### L IVER, BMP, LIPA, EDSON #### [facility] [address] [place] [address] Dr. Julia Velasquez EGFR-AF KAZAKH 37 mL/min/1.73m2 Critically low >=60 [facility] Comment on above: Performed By: #### L IVER, BMP, LIPA, EDSON #### [facility] [address] [place] [address] Dr. Julia Velasquez EGFR-NON AF KAZAKH 30 mL/min/1.73m2 Critically low >=60 [facility] Comment on above: Performed By: #### L IVER, BMP, LIPA, EDSON #### [facility] [address] [place] [address] Dr. Julia Velasquez Globulin (S) [Mass/Vol] 4.7 g/dL Normal [facility] Comment on above: Performed By: #### L IVER, BMP, LIPA, EDSON #### [facility] [address] [place] [address] Dr. Julia Velasquez Glucose [Mass/Vol] 130 mg/dL Critically high 74-106 [facility] Comment on above: Performed By: #### L IVER, BMP, LIPA, EDSON #### [facility] [address] [place] [address] Dr. Julia Velasquez Potassium [Moles/Vol] 4.4 mmol/L Normal 3.5-5.1 [facility] Comment on above: Performed By: #### L IVER, BMP, LIPA, EDSON #### [facility] [address] [place] [address] Dr. Julia Velasquez Protein [Mass/Vol] 6.1 g/dL Critically low 6.4-8.2 Th [facility] Comment on above: Performed By: #### L IVER, BMP, LIPA, EDSON #### [facility] [address] [place] [address] Dr. Julia Velasquez Sodium [Moles/Vol] 149 mmol/L Critically high 136-145 [facility] Comment on above: Performed By: #### L IVER, BMP, LIPA, EDSON #### [facility] [address] [place] [address] Dr. Julia Velasquez Urea nitrogen [Mass/Vol] 56.0 mg/dL Critically high 7.0-18.0 [facility] Comment on above: Performed By: #### L IVER, BMP, LIPA, EDSON #### [facility] [address] [place] [address] Dr. Julia Velasquez Urea nitrogen/Creatinine [Mass ratio] 34.4 mg/mg Normal [facility] Comment on above: Performed By: #### L IVER, BMP, LIPA, EDSON #### [facility] [address] [place] [address] Dr. Julia Velasquez RESPIRATORY PANEL PLUSon Adenovirus Not detected Normal NOT DETECTED [facility] Comment on above: Performed By: #### L IVER, BMP, LIPA, EDSON #### [facility] [address] [place] [address] Dr. Julia Crystal. Parapertusis Not detected Normal NOT DETECTED [facility] Comment on above: Performed By: #### L IVER, BMP, LIPA, EDSON #### [facility] [address] [place] [address] Dr. Julia Crystal. Pertussis Not detected Normal NOT DETECTED [facility] Comment on above: Performed By: #### L IVER, BMP, LIPA, EDSON #### [facility] [address] [place] [address] Dr. Julia Velasquez Chlamydia Pneumoniae Not detected Normal NOT DETECTED [facility] Comment on above: Performed By: #### L IVER, BMP, LIPA, EDSON #### [facility] [address] [place] [address] Dr. Julia Velasquez Coronavirus 229E Not detected Normal NOT DETECTED [facility] Comment on above: Performed By: #### L IVER, BMP, LIPA, EDSON #### [facility] [address] [place] [address] Dr. Julia Velasquez Coronavirus HKU1 Not detected Normal NOT DETECTED [facility] Comment on above: Performed By: #### L IVER, BMP, LIPA, EDSON #### [facility] [address] [place] [address] Dr. Julia Velasquez Coronavirus NL63 Not detected Normal NOT DETECTED [facility] Comment on above: Performed By: #### L IVER, BMP, LIPA, EDSON #### [facility] [address] [place] [address] Dr. Julia Velasquez Coronavirus OC43 Not detected Normal NOT DETECTED [facility] Comment on above: Performed By: #### L IVER, BMP, LIPA, EDSON #### [facility] [address] [place] [address] Dr. Julia Velasquez Influenza A H1 Not detected Normal NOT DETECTED [facility] Comment on above: Performed By: #### L IVER, BMP, LIPA, EDSON #### [facility] [address] [place] [address] Dr. Julia Velasquez Influenza A H1 2009 Not detected Normal NOT DETECTED [facility] Comment on above: Performed By: #### L IVER, BMP, LIPA, EDSON #### [facility] [address] [place] [address] Dr. Julia Velasquez Influenza A H3 Not detected Normal NOT DETECTED [facility] Comment on above: Performed By: #### L IVER, BMP, LIPA, EDSON #### [facility] [address] [place] [address] Dr. Julia Velasquez Influenza B Not detected Normal NOT DETECTED [facility] Comment on above: Performed By: #### L IVER, BMP, LIPA, EDSON #### [facility] [address] [place] [address] Dr. Julia Velasquez Metapneumovirus Not detected Normal NOT DETECTED [facility] Comment on above: Performed By: #### L IVER, BMP, LIPA, EDSON #### [facility] [address] [address] [address] Julia Velasquez Mycoplas. Pneumoniae Not detected Normal NOT DETECTED [facility] Comment on above: Performed By: #### L IVER, BMP, LIPA, EDSON #### [facility] [address] [place] [address] Dr. Julia Velasquez Parainfluenza 1 Not detected Normal NOT DETECTED [facility] Comment on above: Performed By: #### L IVER, BMP, LIPA, EDSON #### [facility] [address] [place] [address] Dr. Julia Velasquez Parainfluenza 2 Not detected Normal NOT DETECTED [facility] Comment on above: Performed By: #### L IVER, BMP, LIPA, EDSON #### [facility] [address] [place] [address] Dr. Julia Velasquez Parainfluenza 3 Not detected Normal NOT DETECTED [facility] Comment on above: Performed By: #### L IVER, BMP, LIPA, ESDON #### [facility] [address] [address] [address] Julia Velasquez Parainfluenza 4 Not detected Normal NOT DETECTED [facility] Comment on above: Performed By: #### L IVER, BMP, LIPA, EDSON #### [facility] [address] [place] [address] Dr. Julia Velasquez Rhino/Enterovirus Not detected Normal NOT DETECTED [facility] Comment on above: Performed By: #### L IVER, BMP, LIPA, EDSON #### [facility] [address] [place] [address] Dr. Julia Velasquez RP2 Header 1 RESPIRATORY PANEL: VIRUSES Normal [facility] Comment on above: Performed By: #### L IVER, BMP, LIPA, EDSON #### [facility] [address] [place] [address] Dr. Julia Velasquez RP2 Header 2 RESPIRATORY PANEL: BACTERIA Normal [facility] Comment on above: Performed By: #### L IVER, BMP, LIPA, EDSON #### [facility] [address] [place] [address] Dr. Julia Velasquez RSV Not detected Normal NOT DETECTED [facility] Comment on above: Performed By: #### L IVER, BMP, LIPA, EDSON #### [facility] [address] [place] [address] Dr. Julia Velasquez SARS-CoV-2 (COVID-19) RNA MARIO+probe Ql (Unsp spec) Not detected Normal NOT DETECTED [facility] Comment on above: Performed By: #### L IVERNANCY, LIPA, EDSON #### [facility] [address] [place] [address] Dr. Julia Velasquez CBC AUTO DIFFon 12-11-2022 BASO # 0.1 103/ul Normal 0.0-0.1 [facility] Comment on above: Performed By: #### C MP #### [facility] [address] [place] [address] Dr. Julia Velasquez Basophils/100 WBC (Bld) 0.4 % Normal 0.2-2.0 [facility] Comment on above: Performed By: #### C MP #### [facility] [address] [place] [address] Dr. Julia Velasquez EO # 0.0 103/ul Normal 0.0-0.7 [facility] Comment on above: Performed By: #### C MP #### [facility] [address] [place] [address] Dr. Julia Velasquez Eosinophils/100 WBC (Bld) 0.0 % Critically low 0.9-7.0 [facility] Comment on above: Performed By: #### C MP #### [facility] [address] [place] [address] Dr. Julia Velasquez Erythrocyte distribution width (RBC) [Ratio] 15.9 % Critically high 11.0-15.0 [facility] Comment on above: Performed By: #### C MP #### [facility] [address] [place] [address] Dr. Julia Velasquez Hematocrit (Bld) [Volume fraction] 34.4 % Critically low 36.0-48.0 [facility] Comment on above: Performed By: #### C MP #### [facility] [address] [place] [address] Dr. Julia Velasquez Hemoglobin (Bld) [Mass/Vol] 11.1 g/dL Critically low 12.0-16.0 [facility] Comment on above: Performed By: #### C MP #### [facility] [address] [place] [address] Dr. Julia Velasquez IG # 0.75 10e3/ul Critically high 0.00-0.03 [facility] Comment on above: Performed By: #### C MP #### [facility] [address] [place] [address] Dr. Julia Velasquez IG % 2.7 % Critically high 0.0-0.5 [facility] Comment on above: Performed By: #### C MP #### [facility] [address] [place] [address] Dr. Julia Velasquez LYMPH # 0.7 103/ul Critically low 1.2-3.8 [facility] Comment on above: Performed By: #### C MP #### [facility] [address] [place] [address] Dr. Julia Velasquez Lymphocytes/100 WBC (Bld) 2.4 % Critically low 20.5-60.0 [facility] Comment on above: Performed By: #### C MP #### [facility] [address] [place] [address] Dr. Julia Velasquez MANUAL DIFF REQ NO Normal [facility] Comment on above: Performed By: #### C MP #### [facility] [address] [place] [address] Dr. Julia Velasquez MCH (RBC) [Entitic mass] 29.2 pg Normal 26.7-34.0 [facility] Comment on above: Performed By: #### C MP #### [facility] [address] [address] [address] Julia Velasquez MCHC (RBC) [Mass/Vol] 32.3 g/dL Normal 29.9-35.2 [facility] Comment on above: Performed By: #### C MP #### [facility] [address] [place] [address] Dr. Julia Velasquez MCV (RBC) [Entitic vol] 90.5 fL Normal 81.0-99.0 [facility] Comment on above: Performed By: #### C MP #### [facility] [address] [place] [address] Dr. Julia Velasquez MONO # 0.7 103/ul Normal 0.3-0.8 [facility] Comment on above: Performed By: #### C MP #### [facility] [address] [place] [address] Dr. Julia Velasquez Monocytes/100 WBC (Bld) 2.6 % Normal 1.7-12.0 [facility] Comment on above: Performed By: #### C MP #### [facility] [address] [place] [address] Dr. Julia Velasquez NEUT # 25.6 103/ul Critically high 1.4-6.[address] [facility] Comment on above: Performed By: #### C MP #### [facility] [address] [place] [address] Dr. Julia Vleasquez Neutrophils/100 WBC (Bld) 91.9 % Critically high 43.0-75.0 [facility] Comment on above: Performed By: #### C MP #### [facility] [address] [place] [address] Dr. Julia Velasquez Platelet mean volume (Bld) [Entitic vol] 11.1 fL Normal 9.5-13.5 [facility] Comment on above: Performed By: #### C MP #### [facility] [address] [place] [address] Dr. Julia Velasquez PLT 240 103/ul Normal 150-450 [facility] Comment on above: Performed By: #### C MP #### [facility] [address] [place] [address] Dr. Julia Velasquez RBC 3.80 106/ul Critically low 4.20-5.40 [facility] Comment on above: Performed By: #### C MP #### [facility] [address] [place] [address] Dr. Julia Velasquez WBC 27.9 103/ul Critically high 4.0-11.[address] [facility] Comment on above: Performed By: #### C MP #### [facility] [address] [place] [address] Dr. Julia Velasquez CBC W MANUAL DIFFon 12-12-19 23 ATYPICAL LYMPH # Normal [facility] Comment on above: Performed By: #### L IVER, BMP, LIPA, EDSON #### [facility] [address] [place] [address] Dr. Julia Velasquez ATYPICAL LYMPH % Normal [facility] Comment on above: Performed By: #### L IVER, BMP, LIPA, EDSON #### [facility] [address] [place] [address] Dr. Julia Velasquez BAND # 3.0 103/ul Critically high 0.0-0.3 [facility] Comment on above: Performed By: #### L IVER, BMP, LIPA, EDSON #### [facility] [address] [place] [address] Dr. Julia Velasquez BAND % 9 % Critically high 0-5 [facility] Comment on above: Performed By: #### L IVER, BMP, LIPA, EDSON #### [facility] [address] [place] [address] Dr. Julia Velasquez BASOM # 0.00 103/ul Normal 0.00-0.10 [facility] Comment on above: Performed By: #### L IVER, BMP, LIPA, EDSON #### [facility] [address] [place] [address] Dr. Julia Velasquez BASOM % 0.0 % Critically low 0.2-2.0 [facility] Comment on above: Performed By: #### L IVER, BMP, LIPA, EDSON #### [facility] [address] [place] [address] Dr. Julia Velasquez BLAST # Normal [facility] Comment on above: Performed By: #### L IVER, BMP, LIPA, EDSON #### [facility] [address] [place] [address] Dr. Julia Velasquez BLAST % Normal [facility] Comment on above: Performed By: #### L IVER, BMP, LIPA, EDSON #### [facility] [address] [place] [address] Dr. Julia Velasquez CORRECTED WBC Normal 4.0-11.0 [facility] Comment on above: Performed By: #### L IVER, BMP, LIPA, EDSON #### [facility] [address] [place] [address] Dr. Julia Velasquez EOS # 0.00 103/ul Normal 0.00-0.70 [facility] Comment on above: Performed By: #### L IVER, BMP, LIPA, EDSON #### [facility] [address] [place] [address] Dr. Julia Velasquez EOS% 0.0 % Critically low 0.9-7.0 [facility] Comment on above: Performed By: #### L IVER, BMP, LIPA, EDSON #### [facility] [address] [place] [address] Dr. Julia Velasquez HCT 30.7 % Critically low 36.0-48.0 [facility] Comment on above: Performed By: #### L IVER, BMP, LIPA, EDSON #### [facility] [address] [place] [address] Dr. Julia Velasquez HGB 10.1 g/dl Critically low 12.0-16.0 [facility] Comment on above: Performed By: #### L IVER, BMP, LIPA, EDSON #### [facility] [address] [place], [place] [id number] Dr. Julia Velasquez LYMPHM # 0.67 103/ul Critically low 1.20-3.80 [facility] Comment on above: Performed By: #### L IVER, BMP, LIPA, EDSON #### [facility] [address] [place] [address] Dr. Julia Velasquez LYMPHM% 2.0 % Critically low 20.5-60.0 [facility] Comment on above: Performed By: #### L IVER, BMP, LIPA, EDSON #### [facility] [address] [place] [address] Dr. Julia Velasquez MCH 29.5 pg Normal 26.7-34.0 [facility] Comment on above: Performed By: #### L IVER, BMP, LIPA, EDSON #### [facility] [address] [place] [address] Dr. Julia Velasquez MCHC 32.9 g/dl Normal 29.9-35.2 [facility] Comment on above: Performed By: #### L IVER, BMP, LIPA, EDSON #### [facility] [address] [place] [address] Dr. Julia Velasquez MCV 89.8 fL Normal 81.0-99.0 [facility] Comment on above: Performed By: #### L IVER, BMP, LIPA, EDSON #### [facility] [address] [place] [address] Dr. Julia Velasquez METAMYELOCYTE # Normal [facility] Comment on above: Performed By: #### L IVER, BMP, LIPA, EDSON #### [facility] [address] [place] [address] Dr. Julia Velasquez METAMYELOCYTE % Normal [facility] Comment on above: Performed By: #### L IVER, BMP, LIPA, EDSON #### [facility] [address] [place] [address] Dr. Julia Velasquez MONOM# 0.33 103/ul Normal 0.30-0.80 [facility] Comment on above: Performed By: #### L IVER, BMP, LIPA, EDSON #### [facility] [address] [address] [address] Julia Velasquez MONOM% 1.0 % Critically low 1.7-12.0 [facility] Comment on above: Performed By: #### L IVER, BMP, LIPA, EDSON #### [facility] [address] [address] [address] Julia Velasquez MPV 10.1 fL Normal 9.5-13.5 [facility] Comment on above: Performed By: #### L IVER, BMP, LIPA, EDSON #### [facility] [address] [address] [address] Julia Velasquez MYELOCYTE # Normal [facility] Comment on above: Performed By: #### L IVER, BMP, LIPA, EDSON #### [facility] [address] [place] [address] Dr. Julia Velasquez MYELOCYTE % Normal [facility] Comment on above: Performed By: #### L IVER, BMP, LIPA, EDSON #### [facility] [address] [place] [address] Dr. Julia Velasquez NRBC Normal [facility] Comment on above: Performed By: #### L IVER, BMP, LIPA, EDSON #### [facility] [address] [place] [address] Dr. Julia Velasquez PLT 256 103/ul Normal 150-450 [facility] Comment on above: Performed By: #### L IVER, BMP, LIPA, EDSON #### [facility] [address] [address] [address] Julia Velasquez RBC 3.42 106/ul Critically low 4.20-5.40 [facility] Comment on above: Performed By: #### L IVER, BMP, LIPA, EDSON #### [facility] [address] [place] [address] Dr. Julia Velasquez RDW 15.9 % Critically high 11.0-15.0 [facility] Comment on above: Performed By: #### L IVER, BMP, LIPA, EDSON #### [facility] [address] [place] [address] Dr. Julia Velasquez SEG # 29.39 103/ul Critically high 1.40-6.50 [facility] Comment on above: Performed By: #### L IVER, BMP, LIPA, EDSON #### [facility] [address] [place] [address] Dr. Julia Velasquez SEG % 88.0 % Critically high 43.0-75.0 [facility] Comment on above: Performed By: #### L IVER, BMP, LIPA, EDSON #### [facility] [address] [place] [address] Dr. Julia Velasquez WBC 33.4 103/ul Critically high 4.0-11.0 [facility] Comment on above: Performed By: #### L IVER, BMP, LIPA, EDSON #### [facility] [address] [place] [address] Dr. Julia Velasquez CULTURE BLOODon 12-11-2022 Microscopic examination of blood, culture Culture Observations: NO GROWTH AT 5 DAYS. Normal [facility] Comment on above: Performed By: #### C MP #### [facility] [address] [place] [address] Dr. Julia Velasquez Microscopic examination of blood, culture Culture Observations: NO GROWTH AT 5 DAYS. Normal [facility] Comment on above: Performed By: #### C MP #### [facility] [address] [place] [address] Dr. Julia Velasquez PROF 14(COMP METB)on 023 Albumin [Mass/Vol] 1.9 g/dL Critically low 3.4-5.0 [facility] Comment on above: Performed By: #### C MP #### [facility] [address] [place] [address] Dr. Julia Velasquez Albumin/Globulin [Mass ratio] 0.5 {ratio} Normal [facility] Comment on above: Performed By: #### C MP #### [facility] [address] [place] [address] Dr. Julia Velasquez ALP [Catalytic activity/Vol] 94 U/L Normal 46-116 [facility] Comment on above: Performed By: #### C MP #### [facility] [address] [address] [address] Julia Velasquez ALT [Catalytic activity/Vol] 34 U/L Normal 14-59 [facility] Comment on above: Performed By: #### C MP #### [facility] [address] [address] [address] Julia Velasquez Anion gap [Moles/Vol] 19.9 mmol/L Normal [facility] Comment on above: Performed By: #### C MP #### [facility] [address] [address] [address] Julia Velasquez AST [Catalytic activity/Vol] 82 U/L Critically high 15-37 [facility] Comment on above: Performed By: #### C MP #### [facility] [address] [address] [address] Julia Velasquez Bilirubin [Mass/Vol] 3.0 mg/dL Critically high 0.2-1.0 [facility] Comment on above: Performed By: #### C MP #### [facility] [address] [address] [address] Julia Velasquez Calcium [Mass/Vol] 8.2 mg/dL Critically low 8.5-10.1 [facility] Comment on above: Performed By: #### C MP #### [facility] [address] [address] [address] Julia Velasquez Chloride [Moles/Vol] 112 mmol/L Critically high 98-107 [facility] Comment on above: Performed By: #### C MP #### [facility] [address] [address] [address] Julia Velasquez CO2 [Moles/Vol] 18.7 mmol/L Critically low 21.0-32.0 [facility] Comment on above: Performed By: #### C MP #### [facility] [address] [address] [address] Julia Velasquez Creatinine [Mass/Vol] 1.75 mg/dL Critically high 0.55-1.02 [facility] Comment on above: Performed By: #### C MP #### [facility] [address] [address] [address] Julia Velasquez EGFR-AF KAZAKH 34 mL/min/1.73m2 Critically low >=60 [facility] Comment on above: Performed By: #### C MP #### [facility] [address] [address] [address] Julia Velasquez EGFR-NON AF KAZAKH 28 mL/min/1.73m2 Critically low >=60 [facility] Comment on above: Performed By: #### C MP #### [facility] [address] [address] [address] Julia Velasquez Globulin (S) [Mass/Vol] 3.6 g/dL Normal [facility] Comment on above: Performed By: #### C MP #### [facility] [address] [address] [address] Julia Velasquez Glucose [Mass/Vol] 95 mg/dL Normal 74-106 [facility] Comment on above: Performed By: #### C MP #### [facility] [address] [address] [address] Julia Velasquez Potassium [Moles/Vol] 4.6 mmol/L Normal 3.5-5.1 [facility] Comment on above: Performed By: #### C MP #### [facility] [address] [address] [address] Julia Velasquez Protein [Mass/Vol] 5.5 g/dL Critically low 6.4-8.2 [facility] Comment on above: Performed By: #### C MP #### [facility] [address] [address] [address] Julia Velasquez Sodium [Moles/Vol] 146 mmol/L Critically high 136-145 [facility] Comment on above: Performed By: #### C MP #### [facility] [address] [address] [address] Julia Velasquez Urea nitrogen [Mass/Vol] 58.0 mg/dL Critically high 7.0-18.0 [facility] Comment on above: Performed By: #### C MP #### [facility] [address] [address] [address] Julia Velasquez Urea nitrogen/Creatinine [Mass ratio] 33.1 mg/mg Normal [facility] Comment on above: Performed By: #### C MP #### [facility] [id number] Julia Velasquez XR CHEST 12-11-2022 XR [...] BUCKY CRAIG Date: 2022-12-11 11:52 Normal [facility] CBC W MANUAL DIFFon 12-11-19 23 ATYPICAL LYMPH # 0.18 103/ul Normal [facility] Comment on above: Performed By: #### C BCMAN #### [facility] [address] [address] [address] Julia Velasquez ATYPICAL LYMPH % 1 % Normal [facility] Comment on above: Performed By: #### C BCMAN #### [facility] [address] [address] [address] Julia Velasquez BAND # 0.0 103/ul Normal 0.0-0.3 [facility] Comment on above: Performed By: #### C BRYNN #### [facility] [address] [address] [address] Julia Velasquez BAND % 0 % Normal 0-5 [facility] Comment on above: Performed By: #### C BRYNN #### [facility] [address] [address] [address] Julia Velasquez BASOM # 0.00 103/ul Normal 0.00-0.10 [facility] Comment on above: Performed By: #### C BRYNN #### [facility] [address] [address] [address] Julia Velasquez BASOM % 0.0 % Critically low 0.2-2.0 [facility] Comment on above: Performed By: #### C BRYNN #### [facility] [address] [place] [address] Dr. Julia Velasquez BLAST # Normal [facility] Comment on above: Performed By: #### C BRYNN #### [facility] [address] [place] [address] Dr. Julia Velasquez BLAST % Normal [facility] Comment on above: Performed By: #### C BRYNN #### [facility] [address] [place] [address] Dr. Julia Velasquez CORRECTED WBC Normal 4.0-11.0 [facility] Comment on above: Performed By: #### C BRYNN #### [facility] [address] [place] [address] Dr. Julia Velasquez EOS # 0.00 103/ul Normal 0.00-0.70 [facility] Comment on above: Performed By: #### C BRYNN #### [facility] [address] [place] [address] Dr. Jluia Velasquez EOS% 0.0 % Critically low 0.9-7.0 [facility] Comment on above: Performed By: #### C BRYNN #### [facility] [address] [place] [address] Dr. Julia Velasquez HCT 31.8 % Critically low 36.0-48.0 [facility] Comment on above: Performed By: #### C BRYNN #### [facility] [address] [place] [address] Dr. Julia Velasquez HGB 10.4 g/dl Critically low 12.0-16.0 [facility] Comment on above: Performed By: #### C BRYNN #### [facility] [address] [place] [address] Dr. Julia Velasquez LYMPHM # 0.35 103/ul Critically low 1.20-3.80 [facility] Comment on above: Performed By: #### C BRYNN #### [facility] [address] [place] [address] Dr. Julia Velasquez LYMPHM% 2.0 % Critically low 20.5-60.0 [facility] Comment on above: Performed By: #### C BRYNN #### [facility] [address] [place] [address] Dr. Julia Velasquez MCH 29.3 pg Normal 26.7-34.0 [facility] Comment on above: Performed By: #### C BRYNN #### [facility] [address] [place] [address] Dr. Julia Velasquez MCHC 32.7 g/dl Normal 29.9-35.2 [facility] Comment on above: Performed By: #### C BRYNN #### [facility] [address] [place] [address] Dr. Julia Velasquez MCV 89.6 fL Normal 81.0-99.0 [facility] Comment on above: Performed By: #### C BRYNN #### [facility] [address] [place] [address] Dr. Julia Velasquez METAMYELOCYTE # Normal [facility] Comment on above: Performed By: #### C BRYNN #### [facility] [address] [place] [address] Dr. Julia Velasquez METAMYELOCYTE % Normal [facility] Comment on above: Performed By: #### C BRYNN #### [facility] [address] [place] [address] Dr. Julia Velasquez MONOM# 0.88 103/ul Critically high 0.30-0.80 [facility] Comment on above: Performed By: #### C BRYNN #### [facility] [address] [address] [address] Julia Velasquez MONOM% 5.0 % Normal 1.7-12.0 [facility] Comment on above: Performed By: #### C BRYNN #### [facility] [address] [address] [address] Julia Velasquez MPV 10.6 fL Normal 9.5-13.5 [facility] Comment on above: Performed By: #### C BRYNN #### [facility] [address] [address] [address] Julia Velasquez MYELOCYTE # Normal [facility] Comment on above: Performed By: #### C BRYNN #### [facility] [address] [place] [address] Dr. Julia Velasquez MYELOCYTE % Normal [facility] Comment on above: Performed By: #### C BRYNN #### [facility] [address] [place] [address] Dr. Julia Velasquez NRBC Normal [facility] Comment on above: Performed By: #### C BRYNN #### [facility] [address] [place] [address] Dr. Julia Velasquez PLT 231 103/ul Normal 150-450 [facility] Comment on above: Performed By: #### C BRYNN #### [facility] [address] [place] [address] Dr. Julia Velasquez RBC 3.55 106/ul Critically low 4.20-5.40 [facility] Comment on above: Performed By: #### C BRYNN #### [facility] [address] [place] [address] Dr. Julia Velasquez RDW 15.1 % Critically high 11.0-15.0 [facility] Comment on above: Performed By: #### C BRYNN #### [facility] [address] [place] [address] Dr. Julia Velasquez SEG # 16.19 103/ul Critically high 1.40-6.50 [facility] Comment on above: Performed By: #### C BRYNN #### [facility] [address] [place] [address] Dr. Julia Velasquez SEG % 92.0 % Critically high 43.0-75.0 [facility] Comment on above: Performed By: #### C BRYNN #### [facility] [address] [address] [address] Julia Velasquez WBC 17.6 103/ul Critically high 4.0-11.0 [facility] Comment on above: Performed By: #### C BRYNN #### [facility] [address] [address] [address] Julia Velasquez FERRITINon 12-10-2022 Ferritin [Mass/Vol] 450.0 ng/mL Critically high 8.0-252.0 [facility] Comment on above: Performed By: #### C MP #### [facility] [address] [address] [address] Julia Velasquez IRON AND TIBCon 12-10-2022 % SATURATION 5.6 % Normal [facility] Comment on above: Performed By: #### C MP #### [facility] [address] [address] [address] Julia Velasquez Iron [Mass/Vol] 11.0 ug/dL Critically low 50.0-170.0 [facility] Comment on above: Performed By: #### C MP #### [facility] [address] [address] [address] Julia Velasquez TIBC DIRECT 195.0 ug/dL Critically low 250.0-450.0 [facility] Comment on above: Performed By: #### C MP #### [facility] [address] [address] [address] Julia Velasquez PROF 14(COMP METB)on 023 Albumin [Mass/Vol] 2.0 g/dL Critically low 3.4-5.0 [facility] Comment on above: Performed By: #### C MP #### [facility] [address] [address] [address] Julia Velasquez Albumin/Globulin [Mass ratio] 0.4 {ratio} Normal [facility] Comment on above: Performed By: #### C MP #### [facility] [address] [address] [address] Julia Velasquez ALP [Catalytic activity/Vol] 87 U/L Normal 46-116 [facility] Comment on above: Performed By: #### C MP #### [facility] [address] [address] [address] Julia Velasquez ALT [Catalytic activity/Vol] 32 U/L Normal 14-59 [facility] Comment on above: Performed By: #### C MP #### [facility] [address] [place] [address] Dr. Julia Velasquez Anion gap [Moles/Vol] 16.2 mmol/L Normal [facility] Comment on above: Performed By: #### C MP #### [facility] [address] [place] [address] Dr. Julia Velasquez AST [Catalytic activity/Vol] 50 U/L Critically high 15-37 [facility] Comment on above: Performed By: #### C MP #### [facility] [address] [place] [address] Dr. Julia Velasquez Bilirubin [Mass/Vol] 1.7 mg/dL Critically high 0.2-1.0 [facility] Comment on above: Performed By: #### C MP #### [facility] [address] [place] [address] Dr. Julia Velasquez Calcium [Mass/Vol] 8.6 mg/dL Normal 8.5-10.1 [facility] Comment on above: Performed By: #### C MP #### [facility] [address] [place] [address] Dr. Julia Velasquez Chloride [Moles/Vol] 107 mmol/L Normal 98-107 [facility] Comment on above: Performed By: #### C MP #### [facility] [address] [place] [address] Dr. Julia Velasquez CO2 [Moles/Vol] 22.1 mmol/L Normal 21.0-32.[address] [facility] Comment on above: Performed By: #### C MP #### [facility] [address] [place] [address] Dr. Julia Velasquez Creatinine [Mass/Vol] 2.38 mg/dL Critically high 0.55-1.02 [facility] Comment on above: Performed By: #### C MP #### [facility] [address] [address] [address] Julia Velasquez EGFR-AF KAZAKH 24 mL/min/1.73m2 Critically low >=60 [facility] Comment on above: Performed By: #### C MP #### [facility] [address] [address] [address] Julia Velasquez EGFR-NON AF KAZAKH 20 mL/min/1.73m2 Critically low >=60 [facility] Comment on above: Performed By: #### C MP #### [facility] [address] [place] [address] Dr. Julia Velasquez Globulin (S) [Mass/Vol] 4.7 g/dL Normal [facility] Comment on above: Performed By: #### C MP #### [facility] [address] [address] [address] Julia Velasquez Glucose [Mass/Vol] 116 mg/dL Critically high 74-106 [facility] Comment on above: Performed By: #### C MP #### [facility] [address] [address] [address] Julia Velasquez Potassium [Moles/Vol] 3.3 mmol/L Critically low 3.5-5.1 [facility] Comment on above: Performed By: #### C MP #### [facility] [address] [address] [address] Julia Velasquez Protein [Mass/Vol] 6.7 g/dL Normal 6.4-8.2 [facility] Comment on above: Performed By: #### C MP #### [facility] [address] [address] [address] Julia Velasquez Sodium [Moles/Vol] 142 mmol/L Normal 136-145 [facility] Comment on above: Performed By: #### C MP #### [facility] [address] [place] [address] Dr. Julia Velasquez Urea nitrogen [Mass/Vol] 57.0 mg/dL Critically high 7.0-18.0 [facility] Comment on above: Performed By: #### C MP #### [facility] [address] [place] [address] Dr. Julia Velasquez Urea nitrogen/Creatinine [Mass ratio] 23.9 mg/mg Normal [facility] Comment on above: Performed By: #### C MP #### [facility] [address] [place] [address] Dr. Julia Velasquez AMYLASEon 12-09-2022 Amylase [Catalytic activity/Vol] 18 U/L Critically low 25-115 [facility] Comment on above: Performed By: #### L IVSAM, BMP, LIPA, EDSON #### [facility] [address] [place] [address] Dr. Julia Velasquez CBC W MANUAL DIFFon 12-10-19 23 ATYPICAL LYMPH # Normal [facility] Comment on above: Performed By: #### C MP #### [facility] [address] [place] [address] Dr. Julia Velasquez ATYPICAL LYMPH % Normal [facility] Comment on above: Performed By: #### C MP #### [facility] [address] [place] [address] Dr. Julia Velasquez BAND # 0.8 103/ul Critically high 0.0-0.3 [facility] Comment on above: Performed By: #### C MP #### [facility] [address] [place] [address] Dr. Julia Velasquez BAND % 4 % Normal 0-5 [facility] Comment on above: Performed By: #### C MP #### [facility] [address] [place] [address] Dr. Julia Velasquez BASOM # 0.00 103/ul Normal 0.00-0.10 [facility] Comment on above: Performed By: #### C MP #### [facility] [address] [place] [address] Dr. Julia Velasquez BASOM % 0.0 % Critically low 0.2-2.0 [facility] Comment on above: Performed By: #### C MP #### [facility] [address] [address] [address] Julia Velasquez BLAST # Normal [facility] Comment on above: Performed By: #### C MP #### [facility] [address] [address] [address] Julia Velasquez BLAST % Normal [facility] Comment on above: Performed By: #### C MP #### [facility] [address] [address] [address] Julia Velasquez CORRECTED WBC Normal 4.0-11.0 [facility] Comment on above: Performed By: #### C MP #### [facility] [address] [place] [address] Dr. Julia Velasquez EOS # 0.00 103/ul Normal 0.00-0.70 [facility] Comment on above: Performed By: #### C MP #### [facility] [address] [place] [address] Dr. Julia Velasquez EOS% 0.0 % Critically low 0.9-7.0 [facility] Comment on above: Performed By: #### C MP #### [facility] [address] [place] [address] Dr. Julia Velasquez HCT 27.2 % Critically low 36.0-48.0 [facility] Comment on above: Performed By: #### C MP #### [facility] [address] [place] [address] Dr. Julia Velasquez HGB 8.9 g/dl Critically low 12.0-16.0 [facility] Comment on above: Performed By: #### C MP #### [facility] [address] [address] [address] Julia Velasquez LYMPHM # 0.99 103/ul Critically low 1.20-3.80 [facility] Comment on above: Performed By: #### C MP #### [facility] [address] [place] [address] Dr. Julia Velasquez LYMPHM% 5.0 % Critically low 20.5-60.0 [facility] Comment on above: Performed By: #### C MP #### [facility] [address] [address] [address] Julia Velasquez MCH 29.3 pg Normal 26.7-34.0 [facility] Comment on above: Performed By: #### C MP #### [facility] [address] [place] [address] Dr. Julia Velasquez MCHC 32.7 g/dl Normal 29.9-35.2 [facility] Comment on above: Performed By: #### C MP #### [facility] [address] [place] [address] Dr. Julia Velasquez MCV 89.5 fL Normal 81.0-99.0 [facility] Comment on above: Performed By: #### C MP #### [facility] [address] [place] [address] Dr. Julia Velasquez METAMYELOCYTE # Normal [facility] Comment on above: Performed By: #### C MP #### [facility] [address] [place] [address] Dr. Julia Velasquez METAMYELOCYTE % Normal [facility] Comment on above: Performed By: #### C MP #### [facility] [address] [place] [address] Dr. Julia Velasquez MONOM# 0.59 103/ul Normal 0.30-0.80 [facility] Comment on above: Performed By: #### C MP #### [facility] [address] [place] [address] Dr. Julia Velasquez MONOM% 3.0 % Normal 1.7-12.0 [facility] Comment on above: Performed By: #### C MP #### [facility] [address] [place] [address] Dr. Julia Velasquez MPV 10.9 fL Normal 9.5-13.5 [facility] Comment on above: Performed By: #### C MP #### [facility] [address] [place] [address] Dr. Julia Velasquez MYELOCYTE # Normal [facility] Comment on above: Performed By: #### C MP #### [facility] [address] [place] [address] Dr. Julia Velasquez MYELOCYTE % Normal [facility] Comment on above: Performed By: #### C MP #### [facility] [address] [place] [address] Dr. Julia Velasquez NRBC Normal [facility] Comment on above: Performed By: #### C MP #### [facility] [address] [address] [address] Julia Velasquez PLT 268 103/ul Normal 150-450 [facility] Comment on above: Performed By: #### C MP #### [facility] [address] [place] [address] Dr. Julia Velasquez RBC 3.04 106/ul Critically low 4.20-5.40 [facility] Comment on above: Performed By: #### C MP #### [facility] [address] [place] [address] Dr. Julia Velasquez RDW 15.0 % Normal 11.0-15.0 [facility] Comment on above: Performed By: #### C MP #### [facility] [address] [place] [address] Dr. Julia Velasquez SEG # 17.42 103/ul Critically high 1.40-6.50 [facility] Comment on above: Performed By: #### C MP #### [facility] [address] [place] [address] Dr. Julia Velasquez SEG % 88.0 % Critically high 43.0-75.0 [facility] Comment on above: Performed By: #### C MP #### [facility] [address] [place] [address] Dr. Julia Velasquez WBC 19.8 103/ul Critically high 4.0-11.0 [facility] Comment on above: Performed By: #### C MP #### [facility] [address] [place] [address] ABD/PELVIS WO CONon 12-09 CT ABD/PELVIS WO CON EXAM: CT scan of the abdomen and pelvis without contrast. Dose reduction [...] RAKESH MANNING Date: 2022-12-09 19:43 Normal [facility] CT FACIAL BONES WO CONon CT [...] KELVIN MCLAUGHLIN Date: 2022-12-09 20:18 Normal [facility] Covid-19 PCR ([facility])on SARS-CoV-2 (COVID-19) RNA MARIO+probe Ql (Unsp spec) Not detected Normal NOT DETECTED [facility] Comment on above: Result Comment: When [...] for this test is supported by the [place] of Health and Human Service's declaration that [...] #### L IVER, BMP, LIPA, EDSON #### [facility] [address] [place] [address] Dr. Julia Vealsquez LIPASEon 12-09-2022 Lipase [Catalytic activity/Vol] 86.0 U/L Normal 73.0-393.0 [facility] Comment on above: Performed By: #### L IVER, BMP, LIPA, EDSON #### [facility] [address] [place] [address] Dr. Julia Velasquez LIVER PROFILEon 12-09-2022 Albumin [Mass/Vol] 2.4 g/dL Critically low 3.4-5.0 [facility] Comment on above: Performed By: #### L IVER, BMP, LIPA, EDSON #### [facility] [address] [place] [address] Dr. Julia Velasquez Albumin/Globulin [Mass ratio] 0.5 {ratio} Normal [facility] Comment on above: Performed By: #### L IVER, BMP, LIPA, EDSON #### [facility] [address] [place] [address] Dr. Julia Velasquez ALP [Catalytic activity/Vol] 104 U/L Normal 46-116 [facility] Comment on above: Performed By: #### L IVER, BMP, LIPA, EDSON #### [facility] [address] [place] [address] Dr. Julia Velasquez ALT [Catalytic activity/Vol] 35 U/L Normal 14-59 [facility] Comment on above: Performed By: #### L IVER, BMP, LIPA, EDSON #### [facility] [address] [place] [address] Dr. Julia Velasquez AST [Catalytic activity/Vol] 59 U/L Critically high 15-37 [facility] Comment on above: Performed By: #### L IVER, BMP, LIPA, EDSON #### [facility] [address] [place] [address] Dr. Julia Velasquez BILI, CONJUGATED 1.0 mg/dL Critically high 0.0-0.2 [facility] Comment on above: Performed By: #### L IVER, BMP, LIPA, EDSON #### [facility] [address] [place] [address] Dr. Julia Velasquez Bilirubin [Mass/Vol] 1.9 mg/dL Critically high 0.2-1.0 [facility] Comment on above: Performed By: #### L IVER, BMP, LIPA, EDSON #### [facility] [address] [place] [address] Dr. Julia Velasquez Globulin (S) [Mass/Vol] 5.0 g/dL Normal [facility] Comment on above: Performed By: #### L IVER, BMP, LIPA, EDSON #### [facility] [address] [place] [address] Dr. Julia Velasquez Protein [Mass/Vol] 7.4 g/dL Normal 6.4-8.2 [facility] Comment on above: Performed By: #### L IVER, BMP, LIPA, EDSON #### [facility] [address] [place] [address] Dr. Julia Velasquez OCC BLD IMMUNOASSAYon 2022 OCCULT BLOOD Negative Normal NEGATIVE [facility] Comment on above: Performed By: #### L IVER, BMP, LIPA, EDSON #### [facility] [address] [place] [address] Dr. Julia Velasquez PROF CHEM 8 (BAS METB)on Anion gap [Moles/Vol] 18.8 mmol/L Normal [facility] Comment on above: Performed By: #### L IVER, BMP, LIPA, EDSON #### [facility] [address] [address] [address] Julia Velasquez Calcium [Mass/Vol] 9.2 mg/dL Normal 8.5-10.1 [facility] Comment on above: Performed By: #### L IVER, BMP, LIPA, EDSON #### [facility] [address] [place] [address] Dr. Julia Velasquez Chloride [Moles/Vol] 100 mmol/L Normal 98-107 [facility] Comment on above: Performed By: #### L IVER, BMP, LIPA, EDSON #### [facility] [address] [place] [address] Dr. Julia Velasquez CO2 [Moles/Vol] 24.3 mmol/L Normal 21.0-32.0 [facility] Comment on above: Performed By: #### L IVER, BMP, LIPA, EDSON #### [facility] [address] [place] [address] Dr. Julia Velasquez Creatinine [Mass/Vol] 2.98 mg/dL Critically high 0.55-1.02 [facility] Comment on above: Performed By: #### L IVER, BMP, LIPA, EDSON #### [facility] [address] [place] [address] Dr. Julia Velasquez EGFR-AF KAZAKH 18 mL/min/1.73m2 Critically low >=60 [facility] Comment on above: Performed By: #### L IVER, BMP, LIPA, EDSON #### [facility] [address] [place] [address] Dr. Julia Velasquez EGFR-NON AF KAZAKH 15 mL/min/1.73m2 Critically low >=60 [facility] Comment on above: Performed By: #### L IVER, BMP, LIPA, EDSON #### [facility] [address] [place] [address] Dr. Julia Velasquez Glucose [Mass/Vol] 116 mg/dL Critically high 74-106 [facility] Comment on above: Performed By: #### L IVER, BMP, LIPA, EDSON #### [facility] [address] [place] [address] Dr. Julia Velasquez Potassium [Moles/Vol] 4.1 mmol/L Normal 3.5-5.1 [facility] Comment on above: Performed By: #### L IVER, BMP, LIPA, EDSON #### [facility] [address] [place] [address] Dr. Julia Velasquez Sodium [Moles/Vol] 139 mmol/L Normal 136-145 [facility] Comment on above: Performed By: #### L IVER, BMP, LIPA, EDSON #### [facility] [address] [place] [address] Dr. Julia Velasquez Urea nitrogen [Mass/Vol] 57.0 mg/dL Critically high 7.0-18.0 [facility] Comment on above: Performed By: #### L IVER, BMP, LIPA, EDSON #### [facility] [address] [place] [address] Dr. Julia Velasquez Urea nitrogen/Creatinine [Mass ratio] 19.1 mg/mg Normal [facility] Comment on above: Performed By: #### L IVER, BMP, LIPA, EDSON #### [facility] [address] [place] [address] Dr. Julia Velasquez CBC AUTO DIFFon 08-26-2022 BASO # 0.0 103/ul Normal 0.0-0.1 [facility] Comment on above: Performed By: #### L IVER, BMP, LIPA, EDSON #### [facility] [address] [place] [address] Dr. Julia Velasquez Basophils/100 WBC (Bld) 0.6 % Normal 0.2-2.0 [facility] Comment on above: Performed By: #### L IVER, BMP, LIPA, EDSON #### [facility] [address] [place] [address] Dr. Julia Velasquez EO # 0.3 103/ul Normal 0.0-0.7 [facility] Comment on above: Performed By: #### L IVER, BMP, LIPA, EDSON #### [facility] [address] [place] [address] Dr. Julia Velasquez Eosinophils/100 WBC (Bld) 4.9 % Normal 0.9-7.0 [facility] Comment on above: Performed By: #### L IVER, BMP, LIPA, EDSON #### [facility] [address] [place] [address] Dr. Julia Velasquez Erythrocyte distribution width (RBC) [Ratio] 13.2 % Normal 11.0-15.0 [facility] Comment on above: Performed By: #### L IVER, BMP, LIPA, EDSON #### [facility] [address] [place] [address] Dr. Julia Velasquez Hematocrit (Bld) [Volume fraction] 40.9 % Normal 36.0-48.0 [facility] Comment on above: Performed By: #### L IVER, BMP, LIPA, EDSON #### [facility] [address] [place] [address] Dr. Julia Velasquez Hemoglobin (Bld) [Mass/Vol] 13.0 g/dL Normal 12.0-16.0 [facility] Comment on above: Performed By: #### L IVER, BMP, LIPA, EDSON #### [facility] [address] [place] [address] Dr. Julai Velasquez IG # 0.05 10e3/ul Critically high 0.00-0.03 [facility] Comment on above: Performed By: #### L IVER, BMP, LIPA, EDSON #### [facility] [address] [place] [address] Dr. Julia Velasquez IG % 1.0 % Critically high 0.0-0.5 [facility] Comment on above: Performed By: #### L IVER, BMP, LIPA, EDSON #### [facility] [address] [place] [address] Dr. Julia Velasquez LYMPH # 1.3 103/ul Normal 1.2-3.8 [facility] Comment on above: Performed By: #### L IVER, BMP, LIPA, EDSON #### [facility] [address] [place] [address] Dr. Julia Velasquez Lymphocytes/100 WBC (Bld) 26.1 % Normal 20.5-60.0 [facility] Comment on above: Performed By: #### L IVER, BMP, LIPA, EDSON #### [facility] [address] [place] [address] Dr. Julia Velasquez MANUAL DIFF REQ NO Normal [facility] Comment on above: Performed By: #### L IVER, BMP, LIPA, EDSON #### [facility] [address] [place] [address] Dr. Julia Velasquez MCH (RBC) [Entitic mass] 29.6 pg Normal 26.7-34.0 [facility] Comment on above: Performed By: #### L IVER, BMP, LIPA, EDSON #### [facility] [address] [place] [address] Dr. Julia Velasquez MCHC (RBC) [Mass/Vol] 31.8 g/dL Normal 29.9-35.2 [facility] Comment on above: Performed By: #### L IVER, BMP, LIPA, EDSON #### [facility] [address] [place] [address] Dr. Julia Velasquez MCV (RBC) [Entitic vol] 93.2 fL Normal 81.0-99.0 [facility] Comment on above: Performed By: #### L IVER, BMP, LIPA, EDSON #### [facility] [address] [place] [address] Dr. Julia Velasquez MONO # 0.4 103/ul Normal 0.3-0.8 [facility] Comment on above: Performed By: #### L IVER, BMP, LIPA, EDSON #### [facility] [address] [place] [address] Dr. Julia Velasquez Monocytes/100 WBC (Bld) 7.7 % Normal 1.7-12.0 [facility] Comment on above: Performed By: #### L IVER, BMP, LIPA, EDSON #### [facility] [address] [place] [address] Dr. Julia Velasquez NEUT # 3.0 103/ul Normal 1.4-6.5 [facility] Comment on above: Performed By: #### L IVER, BMP, LIPA, EDSON #### [facility] [address] [place] [address] Dr. Julia Velasquez Neutrophils/100 WBC (Bld) 59.7 % Normal 43.0-75.0 [facility] Comment on above: Performed By: #### L IVER, BMP, LIPA, EDSON #### [facility] [address] [place] [address] Dr. Julia Velasquez Platelet mean volume (Bld) [Entitic vol] 10.6 fL Normal 9.5-13.5 [facility] Comment on above: Performed By: #### L IVER, BMP, LIPA, EDSON #### [facility] [address] [place] [address] Dr. Julia Velasquez PLT 248 103/ul Normal 150-450 [facility] Comment on above: Performed By: #### L IVER, BMP, LIPA, EDSON #### [facility] [address] [place] [address] Dr. Julia Velasquez RBC 4.39 106/ul Normal 4.20-5.40 [facility] Comment on above: Performed By: #### L IVER, BMP, LIPA, EDSON #### [facility] [address] [place] [address] Dr. Julia Velasquez WBC 5.1 103/ul Normal 4.0-11.0 [facility] Comment on above: Performed By: #### L IVER, BMP, LIPA, EDSON #### [facility] [address] [place] [address] Dr. Julia Velasquez LIPID PROFILEon 08-26-2022 CHOL-HDL RATIO NORM SEE BELOW Normal [facility] Comment on above: Result Comment: 3.3 - 4.4 LOW RISK 4.4 - 7.1 AVERAGE RISK 7.1 - 11.0 MODERATE RISK >11.0 HIGH RISK Performed By: #### L IVER, BMP, LIPA, EDSON #### [facility] [address] [address] [address] Julia Velasquez Cholesterol [Mass/Vol] 177 mg/dL Normal <=200 [facility] Comment on above: Performed By: #### L IVER, BMP, LIPA, EDSON #### [facility] [address] [address] [address] Julia Velasquez Cholesterol in HDL [Mass/Vol] 56 mg/dL Normal 40-60 [facility] Comment on above: Performed By: #### L IVER, BMP, LIPA, EDSON #### [facility] [address] [address] [address] Julia Velasquez Cholesterol in LDL [Mass/Vol] 99.4 mg/dL Normal [facility] Comment on above: Performed By: #### L IVER, BMP, LIPA, EDSON #### [facility] [address] [place] [address] Dr. Julia Velasquez Cholesterol.total/C holesterol in HDL [Mass ratio] 3.2 {ratio} Normal [facility] Comment on above: Performed By: #### L IVER, BMP, LIPA, EDSON #### [facility] [address] [address] [address] Julia Velasquez HDL NORMAL > or = 60 mg/dl - LO W CARDIOVASCULAR RISK <40 mg/dl - HIGH CARDIOVASCULAR RISK Normal [facility] Comment on above: Performed By: #### L IVER, BMP, LIPA, EDSON #### [facility] [address] [address] [address] Julia Velasquez LDL CALC NORMAL SEE BELOW Normal [facility] Comment on above: Result Comment: <100 mg/dl OPTIMAL 100 - 129 mg/dl NEAR OR ABOVE OPTIMAL 130 - 159 mg/dl BORDERLINE HIGH 160 - 189 mg/dl HIGH >190 mg/dl VERY HIGH Performed By: #### L IVER, BMP, LIPA, EDSON #### [facility] [address] [address] [address] Julia Velasquez Triglyceride [Mass/Vol] 108 mg/dL Normal <=150 [facility] Comment on above: Performed By: #### L IVER, BMP, LIPA, EDOSN #### [facility] [address] [place] [address] Dr. Julia Velasquez VLDL CALC 21.6 mg/dL Normal [facility] Comment on above: Performed By: #### L IVER, BMP, LIPA, EDSON #### [facility] [address] [place] [address] Dr. Julia Velasquez PROF CHEM 8 (BAS METB)on Anion gap [Moles/Vol] 11.5 mmol/L Normal [facility] Comment on above: Performed By: #### L IVER, BMP, LIPA, EDSON #### [facility] [address] [place] [address] Dr. Julia Velasquez Calcium [Mass/Vol] 9.3 mg/dL Normal 8.5-10.1 [facility] Comment on above: Performed By: #### L IVER, BMP, LIPA, EDSON #### [facility] [address] [place] [address] Dr. Julia Velasquez Chloride [Moles/Vol] 104 mmol/L Normal 98-107 [facility] Comment on above: Performed By: #### L IVER, BMP, LIPA, EDSON #### [facility] [address] [place] [address] Dr. Julia Velasquez CO2 [Moles/Vol] 30.5 mmol/L Normal 21.0-32.[address] [facility] Comment on above: Performed By: #### L IVER, BMP, LIPA, EDSON #### [facility] [address] [place] [address] Dr. Julia Velasquez Creatinine [Mass/Vol] 1.09 mg/dL Critically high 0.55-1.02 [facility] Comment on above: Performed By: #### L IVER, BMP, LIPA, EDSON #### [facility] [address] [place] [address] Dr. Julia Velasquez EGFR-AF KAZAKH 59 mL/min/1.73m2 Critically low >=60 [facility] Comment on above: Performed By: #### L IVER, BMP, LIPA, EDSON #### [facility] [address] [place] [address] Dr. Julia Velasquez EGFR-NON AF KAZAKH 48 mL/min/1.73m2 Critically low >=60 [facility] Comment on above: Performed By: #### L IVER, BMP, LIPA, EDSON #### [facility] [address] [place] [address] Dr. Julia Velasquez Glucose [Mass/Vol] 89 mg/dL Normal 74-106 [facility] Comment on above: Performed By: #### L IVER, BMP, LIPA, EDSON #### [facility] [address] [place] [address] Dr. Julia Velasquez Potassium [Moles/Vol] 4.0 mmol/L Normal 3.5-5.1 [facility] Comment on above: Performed By: #### L IVER, BMP, LIPA, EDSON #### [facility] [address] [place] [address] Dr. Julia Velasquez Sodium [Moles/Vol] 142 mmol/L Normal 136-145 [facility] Comment on above: Performed By: #### L IVER, BMP, LIPA, EDSON #### [facility] [address] [place] [address] Dr. Julia Velasquez Urea nitrogen [Mass/Vol] 16.0 mg/dL Normal 7.0-18.0 [facility] Comment on above: Performed By: #### L IVER, BMP, LIPA, EDSON #### [facility] [address] [place] [address] Dr. Julia Velasquez Urea nitrogen/Creatinine [Mass ratio] 14.7 mg/mg Normal [facility] Comment on above: Performed By: #### L IVER, BMP, LIPA, EDSON #### [facility] [address] [place] [address] Dr. Julia Velasquez XR DEXA BONE DENSITYon 08-25 XR DEXA BONE DENSITY EXAMINATION: XR DEXA BONE DENSITY, 08/25/2022 11:08 AM EST HISTORY: [...] by: BUCKY CRAIG Date: 2022-08-25 14:10 Normal [facility] Vital Signs Date Time Vital Sign Value Performing Clinician Facility 10-14-2023 11:20-0500 Body mass index (BMI) [Ratio] 24.96 kg/m2 Shivam Ponce MD Work Phone: [facility] 10-14-2023 11:20-0500 Body weight 63.41 kg Shivam Ponce MD Work Phone: [facility] 10-14-2023 11:20-0500 Diastolic blood pressure 82 mm[Hg] Shivam Ponce MD Work Phone: [facility] 10-14-2023 11:20-0500 Systolic blood pressure 130 mm[Hg] Shivam Ponce MD Work Phone: [facility] 08-25-2023 15:00-0500 Body weight 63.04 kg [facility] 08-25-2023 15:00-0500 Diastolic blood pressure 64 mm[Hg] [facility] 08-25-2023 15:00-0500 Systolic blood pressure 114 mm[Hg] [facility] 08-25-2023 11:15-0500 Body height 166.37 cm Doni Rivera Other [facility] 08-25-2023 11:15-0500 Body mass index (BMI) [Ratio] 22.61 kg/m2 Doni Rivera Other [employer] [facility] [employer] Other 08-25-2023 11:15-0500 Body weight 62.6 kg Doni Rivera Other [employer] Other 08-25-2023 11:15-0500 Diastolic blood pressure 73 mm[Hg] Doni Rivera Other [employer] Other 08-25-2023 11:15-0500 Systolic blood pressure 117 mm[Hg] Doni Rivera Other [employer] Other 05-27-2023 10:00-0400 Body height 166.37 cm Kyle Ball Other [employer] Other 05-27-2023 10:00-0400 Body mass index (BMI) [Ratio] 22.74 kg/m2 Kyle Ball Other [employer] Other 05-27-2023 10:00-0400 Body weight 62.96 kg Kyle Ball Other [employer] Other 05-27-2023 10:00-0400 Diastolic blood pressure 72 mm[Hg] Kyle Ball Other [employer] Other 05-27-2023 10:00-0400 Respiratory rate 12 /min Kyle Ball Other [employer] Other 05-27-2023 10:00-0400 Systolic blood pressure 131 mm[Hg] Kyle Ball Other [employer] Other 02-10-2023 10:30-0400 Body height 166.37 cm Kyle Ball Other [employer] Other 02-10-2023 10:30-0400 Body mass index (BMI) [Ratio] 24.55 kg/m2 Kyle Ball Other [employer] Other 02-10-2023 10:30-0400 Body weight 67.95 kg Kyle Ball Other [employer] Other 02-10-2023 10:30-0400 Diastolic blood pressure 78 mm[Hg] Kyle Ball Other [employer] Other 02-10-2023 10:30-0400 Respiratory rate 12 /min Kyle Ball Other [employer] Other 02-10-2023 10:30-0400 Systolic blood pressure 111 mm[Hg] Kyle Ball Other [employer] Other 01-01-2023 11:30-0400 Body height 166.37 cm Kyle Ball Other [employer] Other 01-01-2023 11:30-0400 Body mass index (BMI) [Ratio] 23.01 kg/m2 Kyle Ball Other [employer] Other 01-01-2023 11:30-0400 Body weight 63.69 kg Kyle Ball Other [employer] Other 01-01-2023 11:30-0400 Diastolic blood pressure 77 mm[Hg] Kyle Ball Other [employer] Other 01-01-2023 11:30-0400 Respiratory rate 12 /min Kyle Ball Other [employer] Other 01-01-2023 11:30-0400 Systolic blood pressure 124 mm[Hg] Kyle Ball Other [employer] Other 12-17-2022 11:15-0400 Body height 166.37 cm Kyle Ball Other [employer] Other 12-17-2022 11:15-0400 Body mass index (BMI) [Ratio] 25.3 kg/m2 Kyle Ball Other [employer] Other 12-17-2022 11:15-0400 Body weight 70.04 kg Kyle Ball Other [employer] Other 12-17-2022 11:15-0400 Diastolic blood pressure 70 mm[Hg] Kyle Ball Other [employer] Other 12-17-2022 11:15-0400 Respiratory rate 12 /min Kyle Ball Other [employer] Other 12-17-2022 11:15-0400 Systolic blood pressure 168 mm[Hg] Kyle Ball Other [employer] Other 11-17-2022 12:00-0400 Body height 166.37 cm Kyle Ball Other [employer] Other 11-17-2022 12:00-0400 Body mass index (BMI) [Ratio] 24.15 kg/m2 Kyle Ball Other [employer] Other 11-17-2022 12:00-0400 Body weight 66.86 kg Kyle Ball Other [employer] Other 11-17-2022 12:00-0400 Diastolic blood pressure 74 mm[Hg] Kyle Ball Other [employer] Other 11-17-2022 12:00-0400 Respiratory rate 12 /min Kyle Ball Other [employer] Other 11-17-2022 12:00-0400 Systolic blood pressure 133 mm[Hg] Kyle Ball Other [employer] Other 11-14-2021 15:45-0500 Body height 166.37 cm Doni Rivera Other [employer] Other 11-14-2021 15:45-0500 Body mass index (BMI) [Ratio] 23.6 kg/m2 Doni Rivera Other [employer] Other 11-14-2021 15:45-0500 Body weight 65.32 kg Doni Rivera Other [employer] Other Encounters Encounter Date Encounter Type Care Provider Facility Start: 11-16-2023 End: 11-16-2023 ambulatory MEL HAYES Not Available Start: 10-21-2023 End: 10-21-2023 ambulatory [facility] Work Phone: Start: 10-21-2023 End: 10-21-2023 Patient encounter procedure [facility] Work Phone: Start: 10-14-2023 End: 10-14-2023 ambulatory SHIVAM PONCE Not Available Start: 10-14-2023 End: 10-14-2023 Office outpatient visit 25 minutes Shivam Ponce MD Work Phone: [facility] Comment on above: Brachial plexus neur opathy (Primary Dx); Multiple sclerosis ([facility]) Start: 10-13-2023 Chart abstracting Shivam schulz MD Work Phone: [id number] Start: 09-29-2023 End: 09-29-2023 ambulatory Kyle Gottlieb Other [employer] Other Start: 09-29-2023 Telephone encounter Kyle Gottlieb [facility] Start: 09-17-2023 End: 09-17-2023 ambulatory Kyle Gottlieb Other [employer] Other Start: 09-17-2023 Office outpatient visit 15 minutes Kyle Gottlieb [facility] Start: 09-17-2023 End: 09-17-2023 Patient encounter procedure [facility] Work Phone: Start: 09-15-2023 End: 09-15-2023 ambulatory Kyle Gottlieb Other [employer] Other Start: 09-15-2023 Nursing evaluation o f patient and report Kyle Gottlieb [facility] Start: 08-28-2023 End: 08-28-2023 ambulatory Tonya Harrison Other [employer] Other Start: 08-28-2023 Nursing evaluation o f patient and report Tonya Harrison [facility] Start: 08-28-2023 Telephone encounter Tonya Strong her [facility] Start: 08-26-2023 End: 08-26-2023 ambulatory Tonya Mattmerylaram Other [employer] Other Start: 08-26-2023 Telephone encounter Tonya Strong her [facility] Start: 08-25-2023 End: 08-25-2023 ambulatory Doni Tamikatraygen Other [employer] Other Start: 08-25-2023 Patient encounter procedure Doni Rivera [facility] Start: 08-25-2023 End: 08-25-2023 Patient encounter procedure [facility] Work Phone: Start: 08-13-2023 End: 08-13-2023 ambulatory Kyle Gottlieb Other [employer] Other Start: 08-13-2023 Nursing evaluation o f patient and report Kyle Gottlieb [facility] Start: 08-10-2023 End: 08-10-2023 ambulatory SHIVAM PONCE Not Available Start: 07-09-2023 End: 07-09-2023 ambulatory Kyle Gottlieb Other [employer] Other Start: 07-09-2023 Nursing evaluation o f patient and report Kyle Gottlieb [facility] Start: 06-19-2023 End: 06-19-2023 ambulatory Doni Rivera Other [employer] Other Start: 06-19-2023 Telephone encounter Doni Tamikasarina [facility] Start: 06-18-2023 End: 06-18-2023 ambulatory Doni Rivera Other [employer] Other Start: 06-18-2023 Telephone encounter Doni Tamikasarina [facility] Start: 06-08-2023 End: 06-08-2023 ambulatory Kyle Gottlieb Other [employer] Other Start: 06-08-2023 Nursing evaluation o f patient and report Kyle Gottlieb [facility] Start: 05-29-2023 End: 05-29-2023 ambulatory Kyle Gottlieb Other [employer] Other Start: 05-29-2023 Telephone encounter Kyle LANZA [facility] Start: 05-27-2023 End: 05-27-2023 ambulatory Kyle Gottlieb Other [employer] Other Start: 05-27-2023 Patient encounter procedure Kyle Gottlieb [facility] Start: 05-13-2023 End: 05-13-2023 ambulatory Kyle Gottlieb Facility:[facility] Start: 05-13-2023 End: 05-13-2023 ambulatory DO Kyle Gottlieb Work Phone: [facility] Work Phone: Start: 05-13-2023 End: 05-13-2023 Patient encounter procedure DO Kyle Bull Work Phone: [facility] Work Phone: Start: 05-07-2023 End: 05-07-2023 ambulatory Kyle Gottlieb Other [employer] Other Start: 05-07-2023 Nursing evaluation o f patient and report Kyle Gottlieb [facility] Start: 04-06-2023 End: 04-06-2023 ambulatory Kyle Gottlieb Other [employer] Other Start: 04-06-2023 Nursing evaluation o f patient and report Kyle Gottlieb [facility] Start: 03-23-2023 End: 03-23-2023 ambulatory Kyle Gottlieb Other [employer] Other Start: 03-23-2023 Nursing evaluation o f patient and report Kyle Gottlieb [facility] Start: 03-16-2023 End: 03-16-2023 ambulatory Kyle Gottlieb Other [employer] Other Start: 03-16-2023 Nursing evaluation o f patient and report Kyle Gottlieb [facility] Start: 03-13-2023 End: 03-13-2023 ambulatory Kyle Gottlieb Other [employer] Other Start: 03-13-2023 Telephone encounter Kyle Gottlieb [facility] Start: 03-11-2023 End: 03-11-2023 ambulatory Kyle Gottlieb Other [employer] Other Start: 03-11-2023 Telephone encounter Kyle Gottlieb [facility] Start: 02-10-2023 End: 02-10-2023 ambulatory Kyle Gottlieb Other [employer] Other Start: 02-10-2023 Office outpatient visit 25 minutes Kyle Gottlieb [facility] Start: 02-04-2023 End: 02-04-2023 ambulatory Kyle Gottlieb Other [employer] Other Start: 02-04-2023 Telephone encounter Kyle Gottlieb [facility] Start: 02-03-2023 End: 02-04-[address] KYLE GOTTLIEB Facility:[facility] Start: 02-03-2023 Telephone encounter Kyle Gottlieb [facility] Start: 01-09-2023 End: 01-09-2023 ambulatory Kyle Gottlieb Other [employer] Other Start: 01-09-2023 Telephone encounter Kyle LANZA [facility] Start: 01-07-2023 End: 01-08-[address] KYLE GOTTLIEB Facility:[facility] Start: 01-01-2023 End: 01-01-2023 ambulatory Kyle Gottlieb Other [employer] Other Start: 01-01-2023 Office outpatient visit 25 minutes Kyle Gottlieb [facility] Start: 12-17-2022 End: 12-17-2022 ambulatory Kyle Bull Other [employer] Other Start: 12-17-2022 Telephone encounter Kyle Gottlieb POOL [facility] Start: 12-17-2022 Transitional care manage srvc 7 day discharge Kyle Gottlieb [facility] Start: 12-16-2022 End: 12-16-2022 ambulatory Kyle Gottlieb Other [employer] Other Start: 12-16-2022 Telephone encounter Kyle LANZA [facility] Start: 12-10-2022 End: 12-14-2022 Evaluation and management of inpatient DR BYRON PEREZ . Facility:[facility] Start: 12-08-2022 End: 12-08-2022 ambulatory Doni Rivera Other [employer] Other Start: 12-08-2022 Telephone encounter Doni LANZA [facility] Start: 11-17-2022 End: 11-17-2022 ambulatory Kyle Bull Other [employer] Other Start: 11-17-2022 Office outpatient visit 25 minutes Kyle Gottlieb [facility] Start: 09-03-2022 End: 09-03-2022 ambulatory Doni Rivera Other [employer] Other Start: 09-03-2022 Telephone encounter Doni [facility] Start: 08-26-2022 End: 08-27-[address] KYLE GOTTLIEB Facility:[facility] Start: 08-25-2022 End: 08-26-[address] KYLE GOTTLIEB Facility:[facility] Start: 05-19-2022 Adult health examination Kyle Gottlieb Other [employer] Other Start: 04-28-2022 End: 06-13-[address] KYLE GOTTLIEB Facility:[facility] Start: 04-14-2022 End: 04-14-2022 Patient encounter procedure DO Kyle Gottlieb Work Phone: [facility] Start: 04-09-2022 End: 04-09-2022 ambulatory Doni Rivera Other [employer] Other Start: 04-09-2022 Telephone encounter Doni [facility]le[facility] Start: 12-05-2021 End: 12-05-2021 ambulatory Doni Rivera Other [employer] Other Start: 12-05-2021 Telephone encounter Doni LANZA [facility] Start: 11-14-2021 End: 11-14-2021 ambulatory Doni Rivera Other [employer] Other Start: 11-14-2021 Patient encounter procedure Doni Rivera [facility] Procedures Date Procedure Procedure Detail Performing Clinician Start: 05-13-2023 Screening mammograph y of bilateral breasts DO Kyle Gottlieb Work Phone: Start: 04-14-2022 Screening mammograph y of bilateral breasts DO Kyle Gottlieb Work Phone: Depression screening Dylan Gottlieb Other Plan of Treatment Date Care Activity Detail Author Start: 05-03-2024 End: 05-03-2024 Patient encounter procedure 05/03/2024 11:15 AM EDT Office Visit [facility] [address] [place] [id number] Aamir Xavier, [address] [place] [address] [facility] Start: 01-20-2024 End: 01-20-2024 Patient encounter procedure 01/20/2024 10:40 AM EDT Office Visit [facility] [address] [place] [phone] Shivam Ponce MD [address] [facility] [address] [place] [address] [facility] Start: 11-16-2023 End: 11-16-2023 Patient encounter procedure 11/16/2023 11:40 AM EDT [facility] [address] [place] [id number] Mel Hayes MD [address] [place] [address] [facility] Start: 10-14-2023 End: 10-14-2023 Patient encounter procedure 10/14/2023 11:20 AM EST Office Visit [facility] [address] [place] [address] Shivam Ponce MD [address] [facility] [address] [place] [id number] [facility] Start: 05-08-2023 Influenza vaccination Influenza Vacc ine (#1) [facility] Start: 2007 Pneumococcal Vaccine : 65+ Years (1 - PCV) Pneumococcal Vaccine: 65+ Years (1 - PCV) [facility] Immunizations Immunization Date Immunization Notes Care Provider Fa cility 05-27-2023 influenza virus vaccine, unspecified formulation [facility] 05-27-2023 Prevnar 20 Klye Ball Other [facility] 05-27-2023 influenza, high dose seasonal, preservative-free Kyle Gottlieb Other [facility] [employer] Other 07-11-2022 COVID-19 Pfizer (Pediatric) Kyle Gottlieb Other [facility] 06-23-2022 influenza, injectabl e, quadrivalent, preservative free Shivam Ponce MD Work Phone: [facility] 06-23-2022 influenza virus vaccine, unspecified formulation Shivam Ponce MD Work Phone: [facility] 05-19-2022 influenza virus vaccine, split virus (incl. purified surface antigen) Kyle Gottlieb Other [facility] [employer] Other 05-19-2022 influenza virus vaccine, unspecified formulation [facility] 05-19-2022 Influenza, High-dose Seasonal, Quadrivalent, Preservative Free Shivam Ponce MD Work Phone: [facility] 02-06-2022 COVID-19 Vaccine Pfizer - Documentation Purposes Only Kyle Bull Other [facility] 06-10-2021 COVID-19 mRNA, Comirnaty (Pfizer) DO Kyle Gottlieb Work Phone: [facility] 05-17-2021 influenza virus vaccine, split virus (incl. purified surface antigen) Kyle Gottlieb Other [facility] [employer] Other 05-17-2021 influenza virus vaccine, unspecified formulation [facility] 11-22-2020 Moderna SARS-CoV-2 Vaccination Shivam Ponce MD Work Phone: [facility] 10-25-2020 COVID-19 mRNA, Comirnaty (Pfizer) DO Kyle Gottlieb Work Phone: [facility] 10-15-2020 Moderna SARS-CoV-2 Vaccination Shivam Ponce MD Work Phone: [facility] 10-04-2020 COVID-19 mRNA, Comirnaty (Pfizer) DO Kyle Gottlieb Work Phone: [facility] 10-04-2020 COVID-19 Vaccine Moderna - Documentation Purposes Only Kyle Gottlieb Other [facility] 05-16-2020 influenza virus vaccine, split virus (incl. purified surface antigen) Kyle Gottlieb Other [employer] Other 05-16-2020 influenza virus vaccine, unspecified formulation [facility] 06-02-2019 influenza virus vaccine, split virus (incl. purified surface antigen) yKle Gottlieb Other [facility] [employer] Other 06-02-2019 influenza virus vaccine, unspecified formulation [facility] 05-25-2018 influenza virus vaccine, split virus (incl. purified surface antigen) Kyle Gottlieb Other [facility] [employer] Other 05-25-2018 influenza virus vaccine, unspecified formulation [facility] 05-25-2017 influenza virus vaccine, split virus (incl. purified surface antigen) Kyle Gottlieb Other [facility] [employer] Other 05-25-2017 influenza virus vaccine, unspecified formulation [facility] 06-11-2016 influenza virus vaccine, split virus (incl. purified surface antigen) Kyle Gottlieb Other [facility] [employer] Other 06-11-2016 influenza virus vaccine, unspecified formulation [facility] 06-13-2015 influenza virus vaccine, split virus (incl. purified surface antigen) Kyle Bull Other [facility] [employer] Other 06-13-2015 influenza virus vaccine, unspecified formulation [facility] 06-13-2015 pneumococcal conjuga te vaccine, 13 valent Kyle Gottlieb Other [facility] 06-13-2015 pneumococcal Conjugate, unspecified formulation; Translations: [Need for prophylactic vaccination against Streptococcus pneumoniae (pneumococcus)] Kyle Gottlieb Other [employer] Other 06-07-2013 tetanus and diphther ia toxoids, adsorbed, preservative free, for adult use (5 Lf of tetanus toxoid and 2 Lf of diphtheria toxoid) Kyle Gottlieb Other [facility] 06-13-2009 pneumococcal polysaccharide vaccine, 23 valent Kyle Gottlieb Other [facility] NEGATED: Highlighted row has not occurred!05-16-2020 influenza virus vaccine, split virus (incl. purified surface antigen) Kyle Gottlieb Other [employer] Other Payers Date Payer Category Payer Self-pay [id number] 2022 Private Health Insurance [facility] [id number] 2022-Present [address] [address] [place] [address] [id number] 1996 Medicare MEDICARE MEDICAR E RAILROAD [id number] 1996-Present [facility] RA[facility] MEDICARE [address] [address] [place] [address] Medicare [id number] 1959 Medicare [id number] 1959 Private Health Insurance [id number] 1942 Unknown [id number] [id number] 1942 Unknown [id number] [id number]. [id number] 1942 Unknown [id number] [id number]. [id number] 1942 Unknown [id number] [id number]. 2.593 1942 Unknown [id number] [id number]. [id number] 1942 Unknown [id number]. [id number] 1942 Unknown [id number] [id number]. 2.1259 1942 Unknown [id number] [id number]. 2.1259 1942 Unknown [id number] [id number] Unknown [id number] [id number] Social History Date Type Detail Facility Unknown if ever smoked [employer] Other Start: 04-28-2023 End: 10-14-2023 Sex Assigned At [employer] Other Start: 11-28-2021 End: 09-17-2023 Tobacco smoking status VTIS Ex-smoker (finding) [facility] Start: 1940 Sex Assigned At Female F [facility] Start: 02-16-2023 Tobacco smoking stat us [facility] Never smoked tobacco [facility] Start: 02-16-2023 Tobacco use and exposure Smokeless tobacco non-user [facility] Start: 08-10-2023 End: 10-14-2023 Alcohol intake Lifetime non-drinker (finding) [facility] Start: 04-28-2023 End: 10-14-2023 History of Social function [facility] How often to you hav e a drink containing alcohol? Never [facility] How many standard drinks containing alcohol do you have on a typical day? Patient does not drink [facility] Start: 08-10-2023 Alcohol Comment caffeine intak e: 1-2 cups per day; pop [facility] Start: 1940 Sex Assigned At Not on file N [facility] Clinical Notes 11-14-2021 to 10-14-2023 Shivam Ponce MD - 10/14/2023 11:20 AM EST Note Date & Type Note Facility 10-14-2023 History of Presen t illness Narrative Subjective Gina Pierre is a 83 y.o. female. HPI Patient Is here for a follow up. She states her neck, upper shoulder area and lower back are still bothering her but not as much as the last time she was here. Pain level is a 5/10. She would like injections. States that her neck is still tight. She states injections help her by more than 50%. She did get quite a while out of it. Atleast 6 weeks. She states that she felt like she was tight in her shoulders but it would eventually let up. She states she has not been working the same job as before which is what she thinks did it. She is getting numbness and tingling in her arms, hands and up to her waste. Does not do well with steroids. She states she has been having more trouble with digging for words. Sometimes she cannot come up with the right word or she will say the wrong word. She said its not necessarily memory. It is just word processing. She said she thought she would say one thing but would be saying another. No other concerns. BP 130/82 (BP Location: Left arm, Patient Position: Sitting, BP Cuff Size: Adult) Wt 139 lb 12.8 oz BMI 24.96 kg/m Allergies Allergen Reactions Amoxicillin Other Reaction(s): Rash Bactrim [Sulfamethoxazole-Trimethoprim] Clarithromycin Other Reaction(s): Rash Levofloxacin Other Reaction(s): Rash Naproxen Unknown Sulfamethoxazole Unknown Trimethoprim Unknown Current Outpatient Medications: benazepril (Lotensin) 5 MG tablet, Orally, Disp: , Rfl: Calcium Carbonate-Vit D-Min (Calcium 600+D Plus Minerals) 600-400 MG-UNIT chewable tablet, every 12 (twelve) hours., Disp: , Rfl: cetirizine (ZyrTEC) 10 MG tablet, 1 (one) time each day at the same time., Disp: , Rfl: docusate sodium (Colace) 100 MG capsule, 1 (one) time each day at the same time., Disp: , Rfl: Estrogens Conjugated (Premarin) 0.625 MG/GM cream, 1/2gram Vaginal twice per week for 90 days, Disp: , Rfl: fenofibrate (Triglide) 160 MG tablet, , Disp: , Rfl: fenofibrate micronized (Lofibra) 134 MG capsule, take 1 capsule (134MG) by ORAL route every day with food Oral, Disp: , Rfl: folic acid (Folvite) 1 MG tablet, TAKE 1 TABLET BY MOUTH EVERY DAY FOR 30 DAYS, Disp: , Rfl: gabapentin (Neurontin) 300 MG capsule, 1 tablet Oral Q HS, Disp: , Rfl: OXcarbazepine (Trileptal) 300 MG tablet, take 1 tablet (300MG) by ORAL route every day Oral, Disp: , Rfl: pantoprazole (Protonix) 40 MG EC tablet, 1 (one) time each day at the same time., Disp: , Rfl: tiZANidine (Zanaflex) 4 MG capsule, take 1 tablet (4MG) by ORAL route every bedtime Oral, Disp: , Rfl: valACYclovir (Valtrex) 500 MG tablet, TAKE 1 TABLET BY MOUTH THREE TIMES A DAY DIRECTED, Disp: , Rfl: ipratropium (Atrovent) 0.06 % nasal spray, Administer 2 sprays into each nostril in the morning and 2 sprays in the evening and 2 sprays before bedtime., Disp: 15 mL, Rfl: 11 Past Medical History: Diagnosis Date Cataracts, bilateral 2009 GERD (gastroesophageal reflux disease) Hiatal hernia HLD (hyperlipidemia) ([facility]) Hx of migraine headaches IBS (irritable bowel syndrome) Multiple sclerosis ([facility]) 1993 Past Surgical History: Procedure Laterality Date APPENDECTOMY CATARACT EXTRACTION, BILATERAL COLONOSCOPY EGD 2013 TOTAL ABDOMINAL HYSTERECTOMY W/ BILATERAL SALPINGOOPHORECTOMY 1985 VAGINAL DELIVERY Family History Problem Relation Name Age of Onset Colon cancer Mother Heart disease Mother Heart disease Brother Rectal cancer Brother Coronary artery disease Brother Other (bladder cancer) Maternal Grandmother Stroke Paternal Grandfather Colon cancer Other 4 uncles Colon cancer Father's Sister reports that she has never smoked. She has never used smokeless tobacco. She reports that she does not drink alcohol and does not use drugs. Review of Systems Constitutional: Negative for chills, diaphoresis, fatigue and fever. HENT: Negative for ear pain, tinnitus and trouble swallowing. Eyes: Negative for photophobia and visual disturbance. Respiratory: Negative for cough and shortness of breath. Cardiovascular: Negative for palpitations and leg swelling. Gastrointestinal: Negative for abdominal pain and nausea. Genitourinary: Negative for difficulty urinating and urgency. Musculoskeletal: Positive for back pain, neck pain and neck stiffness. Negative for arthralgias and myalgias. Neurological: Positive for numbness. Negative for tremors, weakness and light-headedness. Psychiatric/Behavioral: Negative for agitation, confusion and suicidal ideas. Objective Neurological Exam Mental Status Awake, alert and oriented to person, place and time. Oriented to person, place and time. Recent and remote memory are intact. Speech is normal. Language is fluent with no aphasia. Attention and concentration are normal. Cranial Nerves CN II: Visual acuity is normal. Visual mesa full to confrontation. CN III, IV, : Extraocular movements intact bilaterally. Normal lids and orbits bilaterally. Pupils equal round and reactive to light bilaterally. CN V: Facial sensation is normal. CN VII: Full and symmetric facial movement. CN VIII: Hearing is normal. CN XII: Tongue midline without atrophy or fasciculations. Motor Normal muscle bulk throughout. Normal muscle tone. Right Left Wrist flexion 5 5 Wrist extension 5 5 Right Left Deltoid 5 5 Biceps 5 5 Triceps 5 5 Wrist flexor 5 5 Wrist extensor 5 5 Glutei 5 5 Iliopsoas 5 5 Quadriceps 5 5 Gastrocnemius 5 5 Anterior tibialis 5 5 Posterior tibialis 5 5 Sensory Light touch is normal in upper and lower extremities. Pinprick is normal in upper and lower extremities. Vibration is normal in upper and lower extremities. Reflexes Right Left Brachioradialis 2+ 2+ Biceps 2+ 2+ Patellar 2+ 2+ Achilles 2+ 2+ Right Plantar: downgoing Left Plantar: downgoing Right pathological reflexes: Erica's absent. Ankle clonus absent. Left pathological reflexes: Erica's absent. Ankle clonus absent. Coordination [id number], rapid alternating movements and xnea-sr-ixut normal bilaterally without dysmetria. Gait Normal casual, toe, heel and tandem gait. Romberg is absent. Assessment/Plan Diagnoses and all orders for this visit: Brachial plexus neuropathy Multiple sclerosis (CMS/HCC) Gina Pierre is a 83 y.o. year old female who presents with paresthesias in the extremities, gait instability, cognitive difficulty, weakness, and vision changes including blurred vision. Possible etiologies include a demyelinating process such as multiple sclerosis, an intracranial process such as stroke, or a diffuse process such as fibromyalgia Other consideration would be a mixed connective tissue disease such as lupus. sensory disturbance in the distal lower extremities manifested predominantly as numbness and paresthesia in his bilateral feet which have been progressive over the past 8 months, Possible etiologies would include a generalized process affecting large fibers such as peripheral neuropathy, lumbar radiculopathy, or lumbosacral plexopathy. I cannot exclude a small fiber neuropathy contributing to predominantly sensory symptoms in the lower extremities, I cannot exclude it medical condition or metabolic process contributing to peripheral nerve dysfunction including polyneuropathy. documented in this encounter [facility] 09-17-2023 Evaluation note Encounter Date Diagnosis Assessment Notes Sep, Acute non-recurrent maxillary sinusitis (ICD-10 - J01.00) Instructed to use Robitussin or Mucinex for cough, saline or Flonase NS for congestion, Tylenol for pain and fever. Sep, Multiple sclerosis (ICD-10 - G35) weakens her immune system placing her at risk for more seriou, prolonged illness [employer] Other 01-09-2024 Evaluation note* Encounter Date Diagnosis Assessment Notes Treatment Notes Treatment Clinical Notes Sep, Pernicious anemia (ICD-10 - D51.0) [employer] Other 12-22-2023 Evaluation note* Encounter Date Diagnosis Assessment Notes Treatment Notes Treatment Clinical Notes Aug, Flu-like symptoms (ICD-10 - R68.89) Aug, Acute non-recurrent maxillary sinusitis (ICD-10 - J01.00) [employer] Other 12-19-2023 Evaluation note* Encounter Date Diagnosis Assessment Notes Treatment Notes Treatment Clinical Notes Aug, Abdominal pain (ICD-10 - R10.9) Aug, Nausea & vomiting (ICD-10 - R11.2) Aug, GERD (gastroesophageal reflux disease) (ICD-10 - K21.9) Pt is doing well on the pantoprazole. Pt RTO YEARLY Aug, Early satiety (ICD-10 - R68.81) Aug, Loss of appetite (ICD-10 - R63.0) [employer] Other 12-07-2023 Evaluation note* Encounter Date Diagnosis Assessment Notes Treatment Notes Treatment Clinical Notes Aug, Pernicious anemia (ICD-10 - D51.0) [employer] Other 11-02-2023 Evaluation note* Encounter Date Diagnosis Assessment Notes Treatment Notes Treatment Clinical Notes Jul, Pernicious anemia (ICD-10 - D51.0) [employer] Other 10-02-2023 Evaluation note* Encounter Date Diagnosis Assessment Notes Treatment Notes Treatment Clinical Notes Jun, Pernicious anemia (ICD-10 - D51.0) [employer] Other 09-22-2023 Evaluation note* Encounter Date Diagnosis Assessment Notes Treatment Notes Treatment Clinical Notes May, Anemia, unspecified type (ICD-10 - D64.9) May, Fatigue, unspecified type (ICD-10 - R53.83) [employer] Other 09-20-2023 Evaluation note* Encounter Date Diagnosis [...] - R53.83) Check labs: CBC, B12, TSH [employer] Other 08-31-2023 Evaluation note* Encounter Date Diagnosis Assessment Notes Treatment Notes Treatment Clinical Notes Apr, Pernicious anemia (ICD-10 - D51.0) [employer] Other 07-31-2023 Evaluation note* Encounter Date Diagnosis Assessment Notes Treatment Notes Treatment Clinical Notes Mar, Pernicious anemia (ICD-10 - D51.0) [employer] Other 07-10-2023 Evaluation note* Encounter Date Diagnosis Assessment Notes Treatment Notes Treatment Clinical Notes Mar, Pernicious anemia (ICD-10 - D51.0) [employer] Other 07-07-2023 Evaluation note* Encounter Date Diagnosis Assessment Notes Treatment Notes Treatment Clinical Notes Mar, PA (pernicious anemia) (ICD-10 - D51.0) [employer] Other 07-05-2023 Evaluation note* Encounter Date Diagnosis Assessment Notes Treatment Notes Treatment Clinical Notes Mar, Acute pneumonia (ICD-10 - J18.9) Mar, Anemia, unspecified type (ICD-10 - D64.9) Mar, Stage 3a chronic kidney disease (ICD-10 - N18.31) [employer] Other 06-06-2023 Evaluation note* Encounter Date Diagnosis [...] FA supplement. Recheck FA/B12, CBC in month [employer] Other 05-30-2023 Evaluation note* Encounter Date Diagnosis Assessment Notes Treatment Notes Treatment Clinical Notes January, Acute pneumonia (ICD-10 - J18.9) January, Anemia, unspecified type (ICD-10 - D64.9) January, Stage 3a chronic kidney disease (ICD-10 - N18.31) [employer] Other 05-05-2023 Evaluation note* Encounter Date Diagnosis Assessment Notes Treatment Notes Treatment Clinical Notes January, Folic acid deficiency (ICD-10 - E53.8) [employer] Other 04-27-2023 Evaluation note* Encounter Date Diagnosis [...] and exerci se with continued statin therapy. [employer] Other 04-12-2023 Evaluation note* Encounter Date Diagnosis [...] Weight loss. Dec, Anasarca (ICD-10 - R60.1) [employer] Other 04-03-2023 Evaluation note* Encounter Date Diagnosis Assessment Notes Treatment Notes Treatment Clinical Notes Dec, Seasonal allergic rhinitis (ICD-10 - J30.2) [employer] Other 03-13-2023 Evaluation note* Encounter Date Diagnosis [...] Daily stretching exercises, exercise, avoid strenuous lifting. [employer] Other 12-28-2022 Evaluation note* Encounter Date Diagnosis Assessment Notes Treatment Notes Treatment Clinical Notes Aug, Diarrhea (ICD-10 - R19.7) [employer] Other 03-31-2022 Evaluation note* Encounter Date Diagnosis Assessment Notes Treatment Notes Treatment Clinical Notes Nov, Diarrhea (ICD-10 - R19.7) [employer] Other 03-10-2022 Evaluation note* Encounter Date Diagnosis [...] Nov, Loss of appetite (ICD-10 - R63.0) [employer] Other Evaluation noteNo InformationNort Helleroy Other Evaluation noteNo assessment information available [facility] Work Phone: Evaluation noteNoLove[employer]Fit Other Evaluation note* Diagnosis Brachial plexus neuropathy- Primary Brachial plexus lesions Multiple sclerosis (CMS/HCC) Multiple sclerosis documented in this encounter [facility] Narrative - Reported* Type Description Date Surgical History appenedectomy Surgical History left ovary Surgical History total hysterectomy [employer] Other History general Narrative - Reported* Type [...] 2020 Surgical History EGD Hospitalization History SEE [facility] Other History general Narrative - Reported* Type [...] 2020 Surgical History EGD Hospitalization History SEE [facility] Other [employer] general Narrative - ReportedNoLoveThatFit Other [employer] general Narrative - [facility]ortedA[facility] Other Chief Complaint and Reason for Visit Chief Complaint Screening Chief Complaint Sore Throat Sinuses - [phone] B-12 SHOT Family History No Family History Records Found Relationship Condition Age at Onset Recorded Date/T leesa Not Specified Heart disease Unknown brother Heart disease Unknown father Malignant neoplasm of pancreas Unknown Relationship Condition Age at Onset Recorded Date/T leesa Not Specified Heart disease Unknown brother Heart disease Unknown father Malignant neoplasm of pancreas Unknown brother Congestive heart failure Unknown Unknown father Unknown Malignant neoplasm Unknown Not Specified Unknown Advance Directives No Advanced Directives Records Found Advance Directive Response Recorded Date/ Time Advance Directives No January 21 8 3:52pm Advance Directive Response Recorded Date/ Time Advance Directives No January 21 8 2:52pm Reason for Referral Reason Consult for seasonal allergies and post nasal drip Diagnosis 1 Seasonal allergic rh initis (J30.2) Referral Organization [facility] Referring Provider First Name Doni Referring Provider Last Name Miguel Referring Provider Specialty Gastroenter ology Referred Organization Unknown Facility Referred Provider Mel Hayes Referred Provider Specialty Allergy/Immu nology Referral Priority Routine Summary Purpose Additional Source Comments REASON FOR VISIT (unrecogniz ed section and content) PATIENT HERE WITH COMPLAINTS OF ABDOMINAL PAIN, NAUSEA & VOMITINGRefillsREFILLRefills6 MONTH FOLLOW UPClinicalWants in Office This WeekNo Informationhospital follow up2 week follow upnew medicationLabResults1 month Follow upLab/chest xrayLab ResultsNo InformationB-12 ShotB-12 ShotB-12 ShotWELLNESSLab ResultsB-12 ShotREFILL/OV NEEDEDSCRIPT SEND TO DIFFERT SCRIPTB-12 ShotB-12 [id number] is here for a 1 year Follow up /PAST DUE/MEDSCOVID testCOVID testflu testB-12 SHOTSinuses - [phone] Care Teams (unrecognized sec tion and content) Team Status: Inactive Member Role Status Dates Kyle Gottlieb DO Primary Care Provider Active Aamir Xavier , DO Attending Provider, Referring Pr hans Active Team Status: Active Member Role Status Dates Kyle Gottlieb , Primary Care Provider Active Team Status: Inactive Member Role Status Dates Kyle Gottlieb , Primary Care Provider Active Aamir Xavier , Attending Provider Active Gallery Director Relationship Specialty Start Date End Date Kyle Gottlieb MD [address] [place] [id number] PCP - General Internal Medicine 02/16/23 Gallery Director Relationship Specialty Start Date End Date Kyle Gottlieb MD [address] [place] [id number] PCP - General Internal Medicine 02/16/23 Team Status: Inactive Member Role Status Dates Tonya Harrison APRN INSTALLATIONS INSPECTOR-C Attending Provider Act [email or web address] Start: August 25, 2023 End: August 25, 2023 Team Status: Inactive Member Role Status Dates Kyle Gottlieb DO Attending Provider Active Sta rt: September 17, 2023 End: September 17, 2023 Team Status: Inactive Member Role Status Dates Kyle Gottlieb DO Primary Care Provide r, Attending Provider Active Start: October 21, 2023 End: October 21, 2023 Goals (unrecognized section and content) Goals may be documented in a n alternate section INFORMATION SOURCE (unrecogn ized section and content) DATE CREATED AUTHOR 02/13/2023 [facility] DATE CREATED AUTHOR AUTHOR'S ORGANIZ ATION 05/24/2023 [facility] DATE CREATED AUTHOR AUTHOR'S ORGANIZ ATION 11/16/2023 [facility] FOR RECORDS PERTAINING TO PATIENTS WHO ARE [...] BE BASED ON THE PRIMARY CLINICAL RECORDS. [employer] provides no warranty or guarantee of the accuracy or completeness of information in this document.
[2023-11-25 12:56] LABS: Basophils Percent Auto 0.4 % (0.2-2.0); Eosinophils Absolute Auto 0.1 10^3/uL (0.0-0.7); Eosinophils Percent Auto 2.9 % (0.9-7.0); Hematocrit 36.7 % (36.0-48.0); Hemoglobin 11.5 g/dL (12.0-16.0); Immature Granulocytes Abs Auto 0.02 10^3/uL (0.00-0.03); Immature Granulocytes Pct Auto 0.4 % (0.0-0.5); Lymphocytes Absolute Auto 1.3 10^3/uL (1.2-3.8); Lymphocytes Percent Auto 27.7 % (20.5-60.0); Mean Corpuscular HGB Conc 31.3 g/dL (29.9-35.2); Mean Corpuscular Hemoglobin 29.9 pg (26.7-34.0); Mean Corpuscular Volume 95.3 fL (81.0-99.0); Mean Platelet Volume 10.5 fL (9.5-13.5); Monocytes Absolute Auto 0.4 10^3/uL (0.3-0.8); Monocytes Percent Auto 7.8 % (1.7-12.0); Neutrophils Absolute Auto 2.9 10^3/uL (1.4-6.5); Neutrophils Percent Auto 60.8 % (43.0-75.0); Platelet Count 187 10^3/uL (150-450); Red Blood Count 3.85 10^6/uL (4.20-5.40); Red Cell Distribution Width 13.2 % (11.0-15.0); White Blood Count 4.8 10^3/uL (4.0-11.0)
[2023-11-25 17:05] LABS: Vitamin B12 >6000.0 pg/mL (193.0-986.0)
== END 2023-11-25 12:25 | disposition home or self-care (01) ==
LOC: LAB 12:27
PROVIDERS: PCP Internal Medicine; Visit Provider Internal Medicine
DX: J01.00 Acute maxillary sinusitis, unspecified (principal); D64.9 Anemia, unspecified
CPT/HCPCS: 36415; 82607; 82728; 82746; 85025

== ENCOUNTER 2024-03-09 12:00 | Outpatient (OUT) | payer MEDICARE, OTHER, SELFPAY ==
--- OUTSIDE RECORDS SUMMARY | 2024-03-09 12:16 | XMS_ITS | CCD ---
Author Organization [facility] Inform ion [facility] Care Team Providers Care Oim Consultant Name Role Phone Doni Rivera Unavailable DO Kyle Gottlieb Primary Care Provider DO Aamir Xavier Attending Provider [phone] DO Aamir Xavier Referring Provider Kyle Gottlieb [...] Aamir Xavier Admitting Unavailable Tonya Harrison Unavailable Kyle Gottlieb MD Primary Care Provider SHIVAM PONCE Attending Unavailable MEL HAYES Attending Unavailable SHIVAM PONCE Attending Unavailable SHIVAM PONCE Attending Unavailable Allergies Allergy Classification Reported Allergen(s) Allergy Type Date of Onset Reaction(s) Facility (20 sources) Amoxicillin Drug Allergy 11-29-19 Unknown, [facility] (20 sources) Clarithromycin Drug Allergy 11-29-19 Unknown, [facility] (20 sources) Naproxen Drug Allergy 11-29-19 Unknown [facility] (20 sources) Sulfamethoxazole / Trimethoprim Drug Allergy 02-17-20 23 Unknown [facility] (20 sources) LEVOFLAXIN Propensity to adverse reactions 09-17-19 Unknown, Unknown Reaction [facility] (11 sources) Sulfamethoxazole / Trimethoprim; Translations: [Bactrim] Drug Allergy 11-19-19 Unknown [facility] (10 sources) levoFLOXacin; Translations: [Levofloxacin] Drug Allergy 11-29-19 [facility] (10 sources) Sulfamethoxazole; Translations: [sulfamethoxazole] Drug Allergy 11-29-19 [facility] (10 sources) Trimethoprim; Translations: [trimethoprim] Drug Allergy 11-29-19 Unknown [facility] (1 source) Amoxicillin Drug Allergy [facility] (1 source) Clarithromycin Drug Allergy [facility] (1 source) Naproxen Drug Allergy 11-19-19 14 [facility] (17 sources) Baclofen Drug Allergy Unknown [place] [facility] Other (17 sources) levoFLOXacin Drug Allergy Unknown [place] [facility] Other (17 sources) Penicillin Drug Allergy Unknown [place] [facility] Other (17 sources) predniSONE Drug Allergy Unknown [place] ([facility] Other (20 sources) Biaxin XL *MACROLIDES* Propensity to adverse reactions 09-17-19 Unknown, Unknown Reaction [facility] (2 sources) Allergies Reconciled Propensity to adverse reactions Unknown [place] [facility] Other (2 sources) patient allergy list reviewed by nurse or physicia Propensity to adverse reactions 09-10-19 Comment:Done [place] ([facility] Other (17 sources) corticosteroid and/or corticosteroid derivative (FN) Drug allergy Unknown [place] [facility] Other (17 sources) Substance with sulfonamide structure and antibacterial mechanism of action (substance) Drug allergy Unknown [place] ([facility] Other (17 sources) Substance with penicillin structure and antibacterial mechanism of action (substance) Drug allergy Unknown [place] [facility] Other (1 source) Amoxicillin Drug Allergy 11-29-19 [facility] (1 source) Clarithromycin Drug Allergy 11-29-19 [facility] (1 source) Naproxen Drug Allergy 11-29-19 [facility] (2 sources) Clarithromycin Allergy to substance 11-29-19 [facility] (4 sources) Corticosteroids Allergy to substance 09-17-19 Unknown Reaction [facility] (4 sources) Penicillins Allergy to substance 09-17-19 Unknown Reaction [facility] (4 sources) Sulfonamides (Antibiotic) Allergy to substance 09-17-19 Unknown Reaction [facility] Medications Current Medications Medication Drug Class(es) Dates Sig (Normalized) Sig (Original) azithromycin 250 mg oral tablet (10 sources) Macrolide Antimicrobial Start: 11-25-2023 Azithromycin Active 250 MG PO As Directed 6 5 November 25, 2023 12:00am Start: 09-17-2023 Azithromycin 2 50 MG as directed Orally daily for 5 [...] 600-400 MG-UNIT chewable tablet (3 sources) Calcium Carbonat e-Vit D-Min (Calcium 600+D Plus Minerals) 600-400 MG-UNIT chewable tablet every 12 (twelve) hours. 0 Active cefdinir 300 mg oral capsule (20 sources) Cephalosporin Antibacterial Start: 10-21-19 take 300 mg by mouth twice daily Cefdinir Active 300 MG PO Twice daily October 21, 2023 1:00am Start: 12-14-2022 Cefdinir 300 M G as directed Orally bid Dec, Active dicyclomine hydrochloride 20 mg oral tablet (20 sources) Anticholinergic Start: 10-21-2023 take 20 mg by mouth four times daily Dicyclomine Active 20 MG PO Four times daily October 21, 2023 1:00am take 1 tablet by mouth every six hours Dicyclomine HCl 20 MG 1 tablet Orally QID Active docusate sodium 100 mg oral capsule (3 sources) docusate sodium (Colace) 100 MG capsule 1 (one) time each day at the same time. 0 Active estrogens, conjugated (chcf) 0.625 mg/ml vaginal cream (20 sources) Estrogen Start: 11-28-2021 Conjugated Est rogens (Premarin) 0.625 mg/gram cream Active 1 APPLIC TOPICAL As Directed November 28, 2021 12:00am Start: 12-31-2016 Estrogens Conj ugated (Premarin) 0.625 MG/GM cream 1/2gram Vaginal twice per week for 90 days 0 12/31/2016 Active Premarin 0.625 M G/GM as directed Vaginal Active Premarin 0.625 M G/GM as directed Vaginal Active Fenofibrate (20 sources) Peroxisome Proliferator Receptor alpha Agonist Start: 11-04-2023 take 1 tablet by mouth once daily Fenofibrate Active 0 .ROUTE .COMPLEX 90 November 04, 2023 7:09pm TAKE 1 TABLET BY MOUTH ONCE DAILY Start: 11-28-2021 End: 11-04-2023 take 160 mg by mouth once daily Fenofibrate Discontinu ed 160 MG PO Daily November 28, 2021 12:00am November 04, 2023 7:09pm Start: 06-12-2010 take 1 capsule by mo [facility] once daily at mealtime fenofibrate micronized (Lofibra) [...] 1 mg oral tablet (20 sources) Start: 10-21-2023 take 1 mg by mouth once daily Folic Acid Active 1 MG PO Daily October 21, 2023 1:00am Start: 01-09-2023 take 1 tablet by [place] once daily folic acid (Folvite) 1 MG [...] 28, 2021 12:00am take 1 capsule by mouth every ei ght hours Neurontin 300 MG 1 capsule Orally Three times a day Active hydrocortisone 25 mg/ml topical cream (20 sources) Corticosteroid Start: 10-21-2023 Hydrocortisone (Proctosol Hc) 2.5 % cream with perineal applicator Active 1 APPLIC [place] 1 to 2 times per day October 21, 2023 1:00am Start: 11-28-2021 End: 11-25-2023 Hydrocortisone Acetate (Anuc ort-Hc) 25 mg suppository Discontinued 25 MG [place] Daily at bedtime October 21, 2023 1:00am November 25, 2023 11:27am Proctozone-HC 2. 5 % APPLY TOPICALLY 2 TO 4 TIMES DAILY for 90 Active Proctosol HC 2.5 % 1 application to affected area Rectal Twice a day for 30 days Active Anucort-HC Activ e Hydrocortisone Acetate (Anucort-Hc) 25 mg suppository (3 sources) Start: 11-25-2023 Hydrocortisone Acetate (Anucort-Hc) 25 mg suppository Active 25 MG [place] Daily at bedtime 24 November 25, 2023 11:27am ipratropium bromide 0.042 mg/actuat metered dose nasal [...] before bedtime. 15 mL 11 02/16/2023 Active OXcarbazepine 300 mg oral tablet (20 sources) Anti-epileptic Agent Start: 01-12-2024 take 1 tablet by mouth once daily at bedtime Oxcarbazepine Active 0 .ROUTE .COMPLEX 90 January 12, 2024 2:14pm TAKE 1 TABLET BY MOUTH EVERY NIGHT AT BEDTIME Start: 06-06-2009 End: 01-12-2024 take 1 tablet by mouth at bedtime Oxcarbazepine (Trileptal) 300 mg Tablet Discontinued 300 MG PO Bedtime November 28, 2021 12:00am January 12, 2024 2:14pm pantoprazole 40 mg delayed release oral tablet (20 sources) Proton Pump Inhibitor Start: 12-28-2020 take 40 mg by mouth twice daily Pantoprazole Active 40 MG PO Twice daily November 28, 2021 12:00am pantoprazole (Pr otonix) 40 MG EC tablet 1 (one) time each day at the same time. 0 Active Stool Softener (20 sources) Stool Softener A ctive tiZANidine 4 mg oral tablet (20 sources) Central alpha-2 Adrenergic Agonist Start: 11-28-2021 Tizanidine (Zanaflex ) 4 mg Tablet Active 2 MG PO Bedtime November 28, 2021 12:00am Start: 06-06-2009 take 1 tablet by [place] [...] to 1 000 mcg Mar, 1000 mcg cetirizine hydrochloride 10 mg oral tablet (20 sources) Histamine-1 Receptor Antagonist Start: 11-28-2021 End: 10-21-2023 take 1 tablet by mouth once daily Cetirizine (Zyrtec) 10 mg tablet Discontinued 10 MG PO Daily November 28, 2021 12:00am October 21, 2023 12:30pm Hydrocortisone (Proctosol Hc) 2.5 % Cream With Applicator (6 sources) Start: 11-28-2021 End: 10-21-2023 Hydrocortisone (Proctosol Hc) 2.5 % Cream With Applicator Discontinued 1 EACH [place] Daily November 28, 2021 12:00am October 21, 2023 12:30pm Start: 11-28-2021 Hydrocortisone (Proctosol Hc) 2.5 % Cream With Applicator Active 1 EACH [place] Daily November 27, 2021 11:00pm Start: 11-28-2021 Hydrocortisone (Proctosol Hc) 2.5 % Cream With Applicator Active 1 EACH [place] Daily November 28, 2021 12:00am [place] 3-Cyu-Tmy-Fish Oil (Fish Oil) 1,200 (144-216) mg Capsule (6 sources) Start: 11-28-2021 End: 10-21-2023 take 2 capsules by mouth at bedtime [place] 1-Wkx-Nez-Fish Oil (Fish Oil) 1,200 (144-216) mg Capsule Discontinued 2 CAP PO Bedtime November 28, 2021 12:00am October 21, 2023 12:30pm Start: 11-28-2021 take 2 capsules by m outh at bedtime [place] 7-Guj-Nyr-Fish Oil (Fish Oil) 1,200 (144-216) mg Capsule Active 2 CAP PO Bedtime November 27, 2021 11:00pm Start: 11-28-2021 take 2 capsules by m outh at bedtime [place] 9-Iee-Gcu-Fish Oil (Fish Oil) 1,200 (144-216) mg Capsule Active 2 CAP PO Bedtime November 28, 2021 12:00am Problems Active Problems Problem Classification Problem Date [...] Translations: [Generalized anxiety disorder] Chronic Cardiac dysrhythmias (5 sources) Palpitations; Translations: [Bradycardia, unspecified] Episodic Chronic kidney disease (20 sources) Chronic kidney disease stage 3A ; Translations: [Stage 3a chronic kidney disease] 10-21-2023 Chronic Chronic obstructive pulmonary disease and bronchiectasis (20 sources) Mucopurulent chronic bronchitis; Translations: [Mucopurulent chronic [...] deficiency anemia due to intrinsic factor deficiency] 10-21-2023 Episodic Deficiency and other anemia (15 sources) Vitamin B12 deficiency anemia due to intrinsic factor deficiency; Translations: [Pernicious anemia] Episodic Deficiency and other anemia (3 sources) Anemia; Translations: [Anemia, unspecified] 11-23-2023 Episodic Disorders of lipid metabolism (20 sources) [...] unspecified] Chronic Other aftercare (1 source) Other care home (current) drug therapy; Translations: [OTH LONG-TERM CURRENT DRUG THERAPY] Onset: 3 Episodic Other aftercare (2 sources) Long-term current use of drug therapy; Translations: [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 representative (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) drug therapy] Episodic Other and unspecified [...] Chronic Other diseases of veins and lymphatics (20 sources) Peripheral venous insufficiency; Translations: [Venous insufficiency (chronic) (peripheral)] Onset: 4 10-21-2023 Episodic Other diseases of veins and lymphatics (5 sources) Venous insufficiency (chronic) (peripheral); Translations: [Venous (peripheral) insufficiency, unspecified] Episodic Other ear and sense organ disorders [...] allergic rhinitis] Chronic Other upper respiratory infections (11 sources) Acute sinusitis; Translations: [Acute sinusitis, unspecified] [...] lumbar region] Onset: 2 Chronic Substance-related disorders (20 sources) Tobacco user; Translations: [Nicotine dependence, cigarettes, [...] Test Name Value Interpretation Reference Range Facility Basophils Auto (Bld) [#/Vol] on 11-25-2023 Basophils (Bld) [#/Vol] 0.0 10 3/uL 0.0-0.1 [facility] Basophils/100 WBC Auto (Bld) on 11-25-2023 Basophils/100 WBC (Bld) 0.4 % 0.2-2.0 [facility] Eosinophils/100 WBC Auto (Bl d)on 11-25-2023 Eosinophils/100 WBC (Bld) 2.9 % 0.9-7.0 [facility] Erythrocyte distribution wid th Auto (RBC) [Ratio]on 11-25-2023 Erythrocyte distribution width (RBC) [Ratio] 13.2 % 11.0-15.0 [facility] Hematocrit Auto (Bld) [Volum e fraction]on 11-25-2023 Hematocrit (Bld) [Volume fraction] 36.7 % 36.0-48.0 [facility] Hemoglobin [Mass/volume] in Bloodon 11-25-2023 Hemoglobin (Bld) [Mass/Vol] 11.5 g/dL 12.0-16.0 [facility] Laboratory - Chemistry and C hemistry - challengeon 11-25-2023 Ferritin [Mass/Vol] 27.0 ng/mL 8.0-252.0 [facility] - Hematology and Cell countson 11-25-2023 Immature granulocytes/100 WBC (Bld) 0.4 % 0.0-0.5 [facility] Leukocytes [#/volume] correc bill for nucleated erythrocytes in Blood by Automated counon 11-25-2023 WBC corrected for nucl RBC Auto (Bld) [#/Vol] 4.8 10 3/uL 4.0-11.0 [facility] Lymphocytes Auto (Bld) [#/Vo l]on 11-25-2023 Lymphocytes (Bld) [#/Vol] 1.3 10 3/uL 1.2-3.8 [facility] Lymphocytes/100 WBC Auto (Bl d)on 11-25-2023 Lymphocytes/100 WBC (Bld) 27.7 % 20.5-60.0 [facility] MCH Auto (RBC) [Entitic mass ]on 11-25-2023 MCH (RBC) [Entitic mass] 29.9 pg 26.7-34.0 [facility] MCHC Auto (RBC) [Mass/Vol]on 11-25-2023 MCHC (RBC) [Mass/Vol] 31.3 g/dL 29.9-35.2 [facility] MCV Auto (RBC) [Entitic vol] on 11-25-2023 MCV (RBC) [Entitic vol] 95.3 fL 81.0-99.0 [facility] Monocytes Auto (Bld) [#/Vol] on 11-25-2023 Monocytes (Bld) [#/Vol] 0.4 10 3/uL 0.3-0.8 [facility] Monocytes/100 WBC Auto (Bld) on 11-25-2023 Monocytes/100 WBC (Bld) 7.8 % 1.7-12.0 [facility] Neutrophils Auto (Bld) [#/Vo l]on 11-25-2023 Neutrophils (Bld) [#/Vol] 2.9 10 3/uL 1.4-6.5 [facility] Neutrophils/100 WBC Auto (Bl d)on 11-25-2023 Neutrophils/100 WBC (Bld) 60.8 % 43.0-75.0 [facility] No Panel Informationon 11-24 Eosinophils # (Auto) 0.1 10 3/uL 0.0-0.7 [facility] Folate 24.20 ng/mL 8.60-58.90 [facility] Immature Granulocyte # (Auto) 0.02 10 3/uL 0.00-0.03 [facility] Vitamin B12 Level >6000.0 pg/mL 193.0-986.0 [facility] Platelet mean volume Auto (B ld) [Entitic vol]on 11-25-2023 Platelet mean volume (Bld) [Entitic vol] 10.5 fL 9.5-13.5 [facility] Platelets Auto (Bld) [#/Vol] on 11-25-2023 Platelets (Bld) [#/Vol] 187 10 3/uL 150-450 [facility] RBC Auto (Bld) [#/Vol]on RBC (Bld) [#/Vol] 3.85 10 6/uL 4.20-5.40 [facility] Quick Fluon 08-28-2023 FLUAV Ab CF (S) [Titer] Negative Big Screen [employer] [facility] [employer] Other FLUBV Ab CF (S) [Titer] Negative [employer] [facility] [employer] Other MM screening mammo BI w/CADo n 05-13-2023 MM screening mammo BI w/CAD [facility] Main [place] [address] [place] [address] Mammography Report Signed Patient: Gina Pierre MR#: [id number] : 1940 Acct:[id number] Age/Sex: 82 / F ADM Date: 05/13/23 Loc: [place] Room: Type: [facility] Attending Dr: Aamir Xavier DO Copies to: DO Aamir Franz DO Ordering Provider: Aamir Xavier DO Date [...] Gina Garrett M.D.05/13/2023 3:35 PM Dictation Location: [facility] Transcribed By: [facility] 05/13/23 153 Dictated By: Gina Garrett MD 05/13/23 152 Signed By: 05/13/23 153 [place] CBC AUTO DIFFon 02-03-2023 BASO # 0.0 103/ul Normal 0.0-0.1 [facility] Comment on above: Performed By: #### L IVER, BMP, LIPA, EDSON #### [facility] [address] [place] [address] Dr. Julia Velasquez Basophils/100 WBC (Bld) 0.4 % Normal 0.2-2.0 [facility] Comment on above: Performed By: #### L IVER, BMP, LIPA, EDSON #### [facility] [address] [place] [address] Dr. Julia Velasquez EO # 0.3 103/ul Normal 0.0-0.7 [facility] Comment on above: Performed By: #### L IVER, BMP, LIPA, EDSON #### [facility] [address] [place] [address] Dr. Julia Velasquez Eosinophils/100 WBC (Bld) 5.5 % Normal 0.9-7.0 [facility] Comment on above: Performed By: #### L IVER, BMP, LIPA, EDSON #### [facility] [address] [address] [address] Julia Velasquez Erythrocyte distribution width (RBC) [Ratio] 14.1 % Normal 11.0-15.0 [facility] Comment on above: Performed By: #### L IVER, BMP, LIPA, EDSON #### [facility] [address] [place] [address] Dr. Julia Velasquez Hematocrit (Bld) [Volume fraction] 36.4 % Normal 36.0-48.0 [facility] Comment on above: Performed By: #### L IVER, BMP, LIPA, EDSON #### [facility] [address] [place] [address] Dr. Julia Velasquez Hemoglobin (Bld) [Mass/Vol] 11.4 g/dL Critically low 12.0-16.0 [facility] Comment on above: Performed By: #### L IVER, BMP, LIPA, EDSON #### [facility] [address] [place] [address] Dr. Julia Velasquez IG # 0.02 10e3/ul Normal 0.00-0.03 [facility] Comment on above: Performed By: #### L IVER, BMP, LIPA, EDSON #### [facility] [address] [place] [address] Dr. Julia Velasquez IG % 0.4 % Normal 0.0-0.5 [facility] Comment on above: Performed By: #### L IVER, BMP, LIPA, EDSON #### [facility] [address] [place] [address] Dr. Julia Velasquez LYMPH # 1.4 103/ul Normal 1.2-3.8 [facility] Comment on above: Performed By: #### L IVER, BMP, LIPA, EDSON #### [facility] [address] [place] [address] Dr. Julia Velasquez Lymphocytes/100 WBC (Bld) 28.4 % Normal 20.5-60.0 [facility] Comment on above: Performed By: #### L IVER, BMP, LIPA, EDSON #### [facility] [address] [place] [address] Dr. Julia Velasquez MANUAL DIFF REQ NO Normal [facility] Comment on above: Performed By: #### L IVER, BMP, LIPA, EDSON #### [facility] [address] [place] [address] Dr. Julia Velasquez MCH (RBC) [Entitic mass] 30.0 pg Normal 26.7-34.0 [facility] Comment on above: Performed By: #### L IVER, BMP, LIPA, EDSON #### [facility] [address] [place] [address] Dr. Julia Velasquez MCHC (RBC) [Mass/Vol] 31.3 g/dL Normal 29.9-35.2 [facility] Comment on above: Performed By: #### L IVER, BMP, LIPA, EDSON #### [facility] [address] [place] [address] Dr. Julia Velasquez MCV (RBC) [Entitic vol] 95.8 fL Normal 81.0-99.0 [facility] Comment on above: Performed By: #### L IVER, BMP, LIPA, EDSON #### [facility] [address] [place] [address] Dr. Julia Velasquez MONO # 0.4 103/ul Normal 0.3-0.8 [facility] Comment on above: Performed By: #### L IVER, BMP, LIPA, EDSON #### [facility] [address] [place] [address] Dr. Julia Velasquez Monocytes/100 WBC (Bld) 7.8 % Normal 1.7-12.0 [facility] Comment on above: Performed By: #### L IVER, BMP, LIPA, EDSON #### [facility] [address] [place] [address] Dr. Julia Velasquez NEUT # 2.8 103/ul Normal 1.4-6.5 [facility] Comment on above: Performed By: #### L IVER, BMP, LIPA, EDSON #### [facility] [address] [place] [address] Dr. Julia Velsaquez Neutrophils/100 WBC (Bld) 57.5 % Normal 43.0-75.0 [facility] Comment on above: Performed By: #### L IVER, BMP, LIPA, EDSON #### [facility] [address] [place] [address] Dr. Julia Velasquez Platelet mean volume (Bld) [Entitic vol] 10.6 fL Normal 9.5-13.5 [facility] Comment on above: Performed By: #### L IVER, BMP, LIPA, EDSON #### [facility] [address] [place] [address] Dr. Julia Velasquez PLT 212 103/ul Normal 150-450 [facility] Comment on above: Performed By: #### L IVER, BMP, LIPA, EDSON #### [facility] [address] [address] [address] Julia Velasquez RBC 3.80 106/ul Critically low 4.20-5.40 [facility] Comment on above: Performed By: #### L IVER, BMP, LIPA, EDSON #### [facility] [address] [place] [address] Dr. Julia Velasquez WBC 4.9 103/ul Normal 4.0-11.0 [facility] Comment on above: Performed By: #### L IVER, BMP, LIPA, EDSON #### [facility] [address] [place] [address] Dr. Julia Velasquez FERRITINon 02-03-2023 Ferritin [Mass/Vol] 63.0 ng/mL Normal 8.0-252.0 [facility] Comment on above: Performed By: #### L IVER, BMP, LIPA, EDSON #### [facility] [address] [place] [address] Dr. Julia Velasquez IRON AND TIBCon 02-03-2023 % SATURATION 25.5 % Normal [facility] Comment on above: Performed By: #### L IVER, BMP, LIPA, EDSON #### [facility] [address] [place] [address] Dr. Julia Velasquez Iron [Mass/Vol] 100.0 ug/dL Normal 50.0-170.[address] [facility] Comment on above: Performed By: #### L IVER, BMP, LIPA, EDSON #### [facility] [address] [place] [address] Dr. Julia Velasquez TIBC DIRECT 392.0 ug/dL Normal 250.0-450.0 [facility] Comment on above: Performed By: #### L IVER, BMP, LIPA, EDSON #### [facility] [address] [address] [address] Julia Velasquez PROF CHEM 8 (BAS METB)on Anion gap [Moles/Vol] 13.0 mmol/L Normal [facility] Comment on above: Performed By: #### B MP #### [facility] [address] [address] [address] Julia Velasquez Calcium [Mass/Vol] 8.9 mg/dL Normal 8.5-10.1 [facility] Comment on above: Performed By: #### B MP #### [facility] [address] [address] [address] Julia Velasquez Chloride [Moles/Vol] 106 mmol/L Normal 98-107 [facility] Comment on above: Performed By: #### B MP #### [facility] [address] [address] [address] Julia Velasquez CO2 [Moles/Vol] 27.7 mmol/L Normal 21.0-32.[address] [facility] Comment on above: Performed By: #### B MP #### [facility] [address] [address] [address] Julia Velasquez Creatinine [Mass/Vol] 1.24 mg/dL Critically high 0.55-1.02 [facility] Comment on above: Performed By: #### B MP #### [facility] [address] [address] [address] Julia Velasquez EGFR-AF BAHRAINI 50 mL/min/1.73m2 Critically low >=60 [facility] Comment on above: Performed By: #### B MP #### [facility] [address] [address] [address] Julia Velasquez EGFR-NON AF BAHRAINI 42 mL/min/1.73m2 Critically low >=60 [facility] Comment on above: Performed By: #### B MP #### [facility] [address] [address] [address] Julia Velasquez Glucose [Mass/Vol] 99 mg/dL Normal 74-106 [facility] Comment on above: Performed By: #### B MP #### [facility] [address] [address] [address] Julia Velasquez Potassium [Moles/Vol] 3.7 mmol/L Normal 3.5-5.1 [facility] Comment on above: Performed By: #### B MP #### [facility] [address] [place] [address] Dr. Julia Velasquez Sodium [Moles/Vol] 143 mmol/L Normal 136-145 [facility] Comment on above: Performed By: #### B MP #### [facility] [address] [place] [address] Dr. Julia Velasquez Urea nitrogen [Mass/Vol] 12.0 mg/dL Normal 7.0-18.0 [facility] Comment on above: Performed By: #### B MP #### [facility] [address] [place] [address] Dr. Julia Velasquez Urea nitrogen/Creatinine [Mass ratio] 9.7 mg/mg Normal [facility] Comment on above: Performed By: #### B MP #### [facility] [address] [place] [address] Dr. Julia Velasquez UA RANDOM W/MICROSCOPICon BACTERIA TRACE Abnormal NONE SEEN [facility] Comment on above: Performed By: #### L IVER, BMP, LIPA, EDSON #### [facility] [address] [place] [address] Dr. Julia Velasquez Bilirubin Ql (U) Negative Normal NEGATIVE The [facility] Comment on above: Performed By: #### L IVER, BMP, LIPA, EDSON #### [facility] [address] [place] [address] Dr. Julia Velasquez CAST NONE SEEN Normal NONE SEEN [facility] Comment on above: Performed By: #### L IVER, BMP, LIPA, EDSON #### [facility] [address] [place] [address] Dr. Julia Velasquez Clarity (U) CLEAR Normal CLEAR [facility] Comment on above: Performed By: #### L IVER, BMP, LIPA, EDSON #### [facility] [address] [place] [address] Dr. Julia Velasquez Color (U) LT. YELLOW Normal YELLOW [facility] Comment on above: Performed By: #### L IVER, BMP, LIPA, EDSON #### [facility] [address] [address] [address] Julia Velasquez Crystals LM Nom (Urine sed) NONE SEEN Normal NONE SEEN [facility] Comment on above: Performed By: #### L IVER, BMP, LIPA, EDSON #### [facility] [address] [address] [address] Julia Velasquez Epithelial cells LM Ql (Urine sed) MODERATE Abnormal NONE SEEN /RARE [facility] Comment on above: Performed By: #### L IVER, BMP, LIPA, EDSON #### [facility] [address] [address] [address] Julia Velasquez Glucose Ql (U) Negative Normal NEGATIVE [facility] Comment on above: Performed By: #### L IVER, BMP, LIPA, EDSON #### [facility] [address] [address] [address] Julia Velasquez Hemoglobin Ql (U) Negative Normal NEGATIVE [facility] Comment on above: Performed By: #### L IVER, BMP, LIPA, EDSON #### [facility] [address] [address] [address] Julia Velasquez Ketones Ql (U) Negative Normal NEGATIVE [facility] Comment on above: Performed By: #### L IVER, BMP, LIPA, EDSON #### [facility] [address] [address] [address] Julia Velasquez LEUKOCYTES Negative Normal NEGATIVE [facility] Comment on above: Performed By: #### L IVER, BMP, LIPA, EDSON #### [facility] [address] [address] [address] Julia Velasquez MUCOUS NONE SEEN Normal NONE SEEN [facility] Comment on above: Performed By: #### L IVER, BMP, LIPA, EDSON #### [facility] [address] [address] [address] Julia Velasquez Nitrite Ql (U) Negative Normal NEGATIVE [facility] Comment on above: Performed By: #### L IVER, BMP, LIPA, EDSON #### [facility] [address] [address] [address] Julia Velasquez pH (U) 7.5 [pH] Normal 5-9 [facility] Comment on above: Performed By: #### L IVER, BMP, LIPA, EDSON #### [facility] [address] [address] [address] Julia Velasquez RBC 0-2 Normal 0-2 [facility] Comment on above: Performed By: #### L IVER, BMP, LIPA, EDSON #### [facility] [address] [address] [address] Julia Velasquez SPEC GRAVITY 1.010 Normal 1.005-<=1.025 [facility] Comment on above: Performed By: #### L IVER, BMP, LIPA, EDSON #### [facility] [address] [place] [address] Dr. Julia Velasquez UA PROTEIN Negative Normal NEGATIVE/ TRACE [facility] Comment on above: Performed By: #### L IVER, BMP, LIPA, EDSON #### [facility] [address] [place] [address] Dr. Julia Velasquez Urobilinogen Qn (U) 2.0 {Avery'U}/dL Abnormal 0.2 - 1. 0 [facility] Comment on above: Performed By: #### L IVER, BMP, LIPA, EDSON #### [facility] [address] [address] [address] Julia Velasquez WBC NONE SEEN Normal NONE SEEN [facility] Comment on above: Performed By: #### L IVER, BMP, LIPA, EDSON #### [facility] [address] [place] [address] Dr. Julia Velasquez VIT B12 AND FOLATEon 023 Cobalamin (Vitamin B12) [Mass/Vol] 199.0 pg/mL Normal 193.0-986.0 [facility] Comment on above: Performed By: #### L IVER, BMP, LIPA, EDSON #### [facility] [address] [place] [address] Dr. Julia Velasquez FOLATE 27.10 ng/mL Normal 8.60-58.90 [facility] Comment on above: Performed By: #### L NANCY MONDRAGON LIPA, EDSON #### [facility] [address] [place] [address] Dr. Julia Velasquez XR CHEST 2 Von [...] NANDO CARLSON Date: 2023-02-03 14:28 Normal [facility] CBC AUTO DIFFon 01-07-2023 BASO # 0.0 103/ul Normal 0.0-0.1 [facility] Comment on above: Performed By: #### L NANCY MONDRAGON LIPA, EDSON #### [facility] [address] [address] [address] Julia Velasquez Basophils/100 WBC (Bld) 0.6 % Normal 0.2-2.0 [facility] Comment on above: Performed By: #### L IVNANCY VARGAS, LIPA, EDSON #### [facility] [address] [address] [address] Julia Velasquez EO # 0.1 103/ul Normal 0.0-0.7 [facility] Comment on above: Performed By: #### L IVERNANCY, LIPA, EDSON #### [facility] [address] [place] [address] Dr. Julia Velasquez Eosinophils/100 WBC (Bld) 3.3 % Normal 0.9-7.0 [facility] Comment on above: Performed By: #### L IVER, BMP, LIPA, EDSON #### [facility] [address] [address] [address] Julia Velasquez Erythrocyte distribution width (RBC) [Ratio] 16.1 % Critically high 11.0-15.0 [facility] Comment on above: Performed By: #### L IVER, BMP, LIPA, EDSON #### [facility] [address] [place] [address] Dr. Julia Velasquez Hematocrit (Bld) [Volume fraction] 34.9 % Critically low 36.0-48.0 [facility] Comment on above: Performed By: #### L IVER, BMP, LIPA, EDSON #### [facility] [address] [place] [address] Dr. Julia Velasquez Hemoglobin (Bld) [Mass/Vol] 11.1 g/dL Critically low 12.0-16.0 [facility] Comment on above: Performed By: #### L IVER, BMP, LIPA, EDSON #### [facility] [address] [place] [address] Dr. Julia Velasquez IG # 0.05 10e3/ul Critically high 0.00-0.03 [facility] Comment on above: Performed By: #### L IVER, BMP, LIPA, EDSON #### [facility] [address] [place] [address] Dr. Julia Velasquez IG % 1.4 % Critically high 0.0-0.5 [facility] Comment on above: Performed By: #### L IVER, BMP, LIPA, EDSON #### [facility] [address] [place] [address] Dr. Julia Velasquez LYMPH # 1.1 103/ul Critically low 1.2-3.8 [facility] Comment on above: Performed By: #### L IVER, BMP, LIPA, EDSON #### [facility] [address] [place] [address] Dr. Julia Velasquez Lymphocytes/100 WBC (Bld) 31.6 % Normal 20.5-60.0 [facility] Comment on above: Performed By: #### L IVER, BMP, LIPA, EDSON #### [facility] [address] [place] [address] Dr. Julia Velasquez MANUAL DIFF REQ NO Normal [facility] Comment on above: Performed By: #### L IVER, BMP, LIPA, EDSON #### [facility] [address] [place] [address] Dr. Julia Velasquez MCH (RBC) [Entitic mass] 30.4 pg Normal 26.7-34.0 [facility] Comment on above: Performed By: #### L IVER, BMP, LIPA, EDSON #### [facility] [address] [place] [address] Dr. Julia Velasquez MCHC (RBC) [Mass/Vol] 31.8 g/dL Normal 29.9-35.2 [facility] Comment on above: Performed By: #### L IVER, BMP, LIPA, EDSON #### [facility] [address] [place] [address] Dr. Julia eVlasquez MCV (RBC) [Entitic vol] 95.6 fL Normal 81.0-99.0 [facility] Comment on above: Performed By: #### L IVER, BMP, LIPA, EDSON #### [facility] [address] [place] [address] Dr. Julia Velasquez MONO # 0.2 103/ul Critically low 0.3-0.8 [facility] Comment on above: Performed By: #### L IVER, BMP, LIPA, EDSON #### [facility] [address] [place] [address] Dr. Julia Velasquez Monocytes/100 WBC (Bld) 6.1 % Normal 1.7-12.0 [facility] Comment on above: Performed By: #### L IVER, BMP, LIPA, EDSON #### [facility] [address] [place] [address] Dr. Julia Velasquez NEUT # 2.1 103/ul Normal 1.4-6.5 [facility] Comment on above: Performed By: #### L IVER, BMP, LIPA, EDSON #### [facility] [address] [place] [address] Dr. Julia Velasquez Neutrophils/100 WBC (Bld) 57.0 % Normal 43.0-75.0 [facility] Comment on above: Performed By: #### L IVER, BMP, LIPA, EDSON #### [facility] [address] [place] [address] Dr. Julia Velasquez Platelet mean volume (Bld) [Entitic vol] 10.4 fL Normal 9.5-13.5 [facility] Comment on above: Performed By: #### L IVER, BMP, LIPA, EDSON #### [facility] [address] [place] [address] Dr. Julia Velasquez PLT 167 103/ul Normal 150-450 [facility] Comment on above: Performed By: #### L IVER, BMP, LIPA, EDSON #### [facility] [address] [place] [address] Dr. Julia Velasquez RBC 3.65 106/ul Critically low 4.20-5.40 [facility] Comment on above: Performed By: #### L IVER, BMP, LIPA, EDSON #### [facility] [address] [place] [address] Dr. Julia Velasquez WBC 3.6 103/ul Critically low 4.0-11.0 [facility] Comment on above: Performed By: #### L IVER, BMP, LIPA, EDSON #### [facility] [address] [place] [address] Dr. Juila Velasquez FERRITINon 01-07-2023 Ferritin [Mass/Vol] 148.0 ng/mL Normal 8.0-252.0 [facility] Comment on above: Performed By: #### L IVER, BMP, LIPA, EDSON #### [facility] [address] [place] [address] Dr. Julia Velasquez IRON AND TIBCon 01-07-2023 % SATURATION 27.1 % Normal [facility] Comment on above: Performed By: #### L IVER, BMP, LIPA, EDSON #### [facility] [address] [address] [address] Julia Velasquez Iron [Mass/Vol] 96.0 ug/dL Normal 50.0-170.0 [facility] Comment on above: Performed By: #### L IVER, BMP, LIPA, EDSON #### [facility] [address] [place] [address] Dr. Julia Velasquez TIBC DIRECT 354.0 ug/dL Normal 250.0-450.0 [facility] Comment on above: Performed By: #### L IVER, BMP, LIPA, EDSON #### [facility] [address] [place] [address] Dr. Julia Velasquez PROF CHEM 8 (BAS METB)on Anion gap [Moles/Vol] 11.8 mmol/L Normal [facility] Comment on above: Performed By: #### L IVER, BMP, LIPA, EDSON #### [facility] [address] [place] [address] Dr. Julia Velasquez Calcium [Mass/Vol] 8.3 mg/dL Critically low 8.5-10.1 [facility] Comment on above: Performed By: #### L IVER, BMP, LIPA, EDSON #### [facility] [address] [place] [address] Dr. Julia Velasquez Chloride [Moles/Vol] 108 mmol/L Critically high 98-107 [facility] Comment on above: Performed By: #### L IVER, BMP, LIPA, EDSON #### [facility] [address] [place] [address] Dr. Julia Velasquez CO2 [Moles/Vol] 27.8 mmol/L Normal 21.0-32.[address] [facility] Comment on above: Performed By: #### L IVER, BMP, LIPA, EDSON #### [facility] [address] [place] [address] Dr. Julia Velasquez Creatinine [Mass/Vol] 1.00 mg/dL Normal 0.55-1.02 [facility] Comment on above: Performed By: #### L IVER, BMP, LIPA, EDSON #### [facility] [address] [address] [address] Julia Velasquez EGFR-AF BAHRAINI >60 Normal >=[address] [facility] Comment on above: Performed By: #### L IVER, BMP, LIPA, EDSON #### [facility] [address] [address] [address] Julia Velasquez EGFR-NON AF BAHRAINI 53 mL/min/1.73m2 Critically low >=60 [facility] Comment on above: Performed By: #### L IVER, BMP, LIPA, EDSON #### [facility] [address] [address] [address] Julia Velasquez Glucose [Mass/Vol] 92 mg/dL Normal 74-106 [facility] Comment on above: Performed By: #### L IVER, BMP, LIPA, EDSON #### [facility] [address] [place] [address] Dr. Julia Velasquez Potassium [Moles/Vol] 3.6 mmol/L Normal 3.5-5.1 [facility] Comment on above: Performed By: #### L IVER, BMP, LIPA, EDSON #### [facility] [address] [place] [address] Dr. Julia Velasquez Sodium [Moles/Vol] 144 mmol/L Normal 136-145 [facility] Comment on above: Performed By: #### L IVER, BMP, LIPA, EDSON #### [facility] [address] [address] [address] Julia Velasquez Urea nitrogen [Mass/Vol] 8.0 mg/dL Normal 7.0-18.0 [facility] Comment on above: Performed By: #### L IVER, BMP, LIPA, EDSON #### [facility] [address] [place] [address] Dr. Julia Velasquez Urea nitrogen/Creatinine [Mass ratio] 8.0 mg/mg Normal [facility] Comment on above: Performed By: #### L IVER, BMP, LIPA, EDSON #### [facility] [address] [address] [address] Julia Velasquez RETICULOCYTEon 01-07-2023 RETIC 4.40 % Critically high 0.60-3.10 [facility] Comment on above: Performed By: #### L IVER, BMP, LIPA, EDSON #### [facility] [address] [address] [address] Julia Velasquez VIT B12 AND FOLATEon 023 Cobalamin (Vitamin B12) [Mass/Vol] 322.0 pg/mL Normal 193.0-986.0 [facility] Comment on above: Performed By: #### L IVER, BMP, LIPA, EDSON #### [facility] [address] [address] [address] Julia Velasquez FOLATE 6.10 ng/mL Critically low 8.60-58.90 [facility] Comment on above: Performed By: #### L IVER, BMP, LIPA, EDSON #### [facility] [address] [place] [address] Dr. Julia Velasquez XR CHEST 2 Von [...] NANDO CARLSON Date: 2023-01-07 11:59 Normal [facility] CBC W MANUAL DIFFon 12-15-19 23 ATYPICAL LYMPH # Normal The [facility] Comment on above: Performed By: #### L IVER, BMP, LIPA, EDSON #### [facility] [address] [place] [address] Dr. Julia Velasquez ATYPICAL LYMPH % Normal [facility] Comment on above: Performed By: #### L IVER, BMP, LIPA, EDSON #### [facility] [address] [place] [address] Dr. Julia Velasquez BAND # 1.0 103/ul Critically high 0.0-0.3 [facility] Comment on above: Performed By: #### L IVER, BMP, LIPA, EDSON #### [facility] [address] [place] [address] Dr. Julia Velasquez BAND % 9 % Critically high 0-5 [facility] Comment on above: Performed By: #### L IVER, BMP, LIPA, EDSON #### [facility] [address] [place] [address] Dr. Julia Velasquez BASOM # 0.00 103/ul Normal 0.00-0.10 [facility] Comment on above: Performed By: #### L IVER, BMP, LIPA, EDSON #### [facility] [address] [place] [address] Dr. Julia Velasquez BASOM % 0.0 % Critically low 0.2-2.0 [facility] Comment on above: Performed By: #### L IVER, BMP, LIPA, EDSON #### [facility] [address] [place] [address] Dr. Julia Velasquez BLAST # Normal [facility] Comment on above: Performed By: #### L IVER, BMP, LIPA, EDSON #### [facility] [address] [place] [address] Dr. Julia Velasquez BLAST % Normal [facility] Comment on above: Performed By: #### L IVER, BMP, LIPA, EDSON #### [facility] [address] [place] [address] Dr. Julia Velasquez CORRECTED WBC Normal 4.0-11.0 [facility] Comment on above: Performed By: #### L IVER, BMP, LIPA, EDSON #### [facility] [address] [place] [address] Dr. Julia Velasquez EOS # 0.22 103/ul Normal 0.00-0.70 [facility] Comment on above: Performed By: #### L IVER, BMP, LIPA, EDSON #### [facility] [address] [place] [address] Dr. Julia Velasquez EOS% 2.0 % Normal 0.9-7.0 [facility] Comment on above: Performed By: #### L IVER, BMP, LIPA, EDSON #### [facility] [address] [place] [address] Dr. Julia Velasquez HCT 27.3 % Critically low 36.0-48.0 [facility] Comment on above: Performed By: #### L IVER, BMP, LIPA, EDSON #### [facility] [address] [place] [address] Dr. Julia Velasquez HGB 8.5 g/dl Critically low 12.0-16.0 [facility] Comment on above: Performed By: #### L IVER, BMP, LIPA, EDSON #### [facility] [address] [place] [address] Dr. Julia Velasquez HYPOCHROMASIA SLIGHT Normal [facility] Comment on above: Performed By: #### L IVER, BMP, LIPA, EDSON #### [facility] [address] [place] [address] Dr. Julia Velasquez LYMPHM # 0.99 103/ul Critically low 1.20-3.80 [facility] Comment on above: Performed By: #### L IVER, BMP, LIPA, EDSON #### [facility] [address] [place] [address] Dr. Julia Velasquez LYMPHM% 9.0 % Critically low 20.5-60.0 [facility] Comment on above: Performed By: #### L IVER, BMP, LIPA, EDSON #### [facility] [address] [place] [address] Dr. Julia Velasquez MCH 28.3 pg Normal 26.7-34.0 [facility] Comment on above: Performed By: #### L IVER, BMP, LIPA, EDSON #### [facility] [address] [address] [address] Julia Velasquez MCHC 31.1 g/dl Normal 29.9-35.2 [facility] Comment on above: Performed By: #### L IVER, BMP, LIPA, EDSON #### [facility] [address] [address] [address] Julia Velasquez MCV 91.0 fL Normal 81.0-99.0 [facility] Comment on above: Performed By: #### L IVER, BMP, LIPA, EDSON #### [facility] [address] [address] [address] Julia Velasquez METAMYELOCYTE # Normal [facility] Comment on above: Performed By: #### L IVER, BMP, LIPA, EDSON #### [facility] [address] [address] [address] Julia Velasquez METAMYELOCYTE % Normal [facility] Comment on above: Performed By: #### L IVER, BMP, LIPA, EDSON #### [facility] [address] [address] [address] Julia Velasquez MONOM# 0.22 103/ul Critically low 0.30-0.80 [facility] Comment on above: Performed By: #### L IVER, BMP, LIPA, EDSON #### [facility] [address] [address] [address] Julia Velasquez MONOM% 2.0 % Normal 1.7-12.0 [facility] Comment on above: Performed By: #### L IVER, BMP, LIPA, EDSON #### [facility] [address] [address] [address] Julia Velasquez MPV 10.9 fL Normal 9.5-13.5 [facility] Comment on above: Performed By: #### L IVER, BMP, LIPA, EDSON #### [facility] [address] [address] [address] Julia Velasquez MYELOCYTE # Normal [facility] Comment on above: Performed By: #### L IVER, BMP, LIPA, EDSON #### [facility] [address] [place] [address] Dr. Julia Velasquez MYELOCYTE % Normal [facility] Comment on above: Performed By: #### L IVER, BMP, LIPA, EDSON #### [facility] [address] [address] [address] Julia Velasquez NRBC Normal [facility] Comment on above: Performed By: #### L IVER, BMP, LIPA, EDSON #### [facility] [address] [address] [address] Julia Velasquez PLT 240 103/ul Normal 150-450 [facility] Comment on above: Performed By: #### L IVER, BMP, LIPA, EDSON #### [facility] [address] [address] [address] Julia Velasquez RBC 3.00 106/ul Critically low 4.20-5.40 [facility] Comment on above: Performed By: #### L IVER, BMP, LIPA, EDSON #### [facility] [address] [place] [address] Dr. Julia Velasquez RDW 17.2 % Critically high 11.0-15.0 [facility] Comment on above: Performed By: #### L IVER, BMP, LIPA, EDSON #### [facility] [address] [place] [address] Dr. Julia Velasquez SEG # 8.58 103/ul Critically high 1.40-6.50 [facility] Comment on above: Performed By: #### L IVER, BMP, LIPA, EDSON #### [facility] [address] [place] [address] Dr. Julia Velasquez SEG % 78.0 % Critically high 43.0-75.0 [facility] Comment on above: Performed By: #### L IVER, BMP, LIPA, EDSON #### [facility] [address] [place] [address] Dr. Julia Velasquez WBC 11.0 103/ul Normal 4.0-11.0 [facility] Comment on above: Performed By: #### L IVER, BMP, LIPA, EDSON #### [facility] [address] [place] [address] Dr. Julia Velasquez PROF 14(COMP METB)on 023 Albumin [Mass/Vol] 1.3 g/dL Critically low 3.4-5.0 [facility] Comment on above: Performed By: #### C MP #### [facility] [address] [place] [address] Dr. Julia Velasquez Albumin/Globulin [Mass ratio] 0.3 {ratio} Normal [facility] Comment on above: Performed By: #### C MP #### [facility] [address] [place] [address] Dr. Julia Velasquez ALP [Catalytic activity/Vol] 93 U/L Normal 46-116 [facility] Comment on above: Performed By: #### C MP #### [facility] [address] [place] [address] Dr. Julia Velasquez ALT [Catalytic activity/Vol] 30 U/L Normal 14-59 [facility] Comment on above: Performed By: #### C MP #### [facility] [address] [place] [address] Dr. Julia Velasquez Anion gap [Moles/Vol] 13.4 mmol/L Normal [facility] Comment on above: Performed By: #### C MP #### [facility] [address] [place] [address] Dr. Julia Velasquez AST [Catalytic activity/Vol] 71 U/L Critically high 15-37 [facility] Comment on above: Performed By: #### C MP #### [facility] [address] [place] [address] Dr. Julia Velasquez Bilirubin [Mass/Vol] 1.2 mg/dL Critically high 0.2-1.0 [facility] Comment on above: Performed By: #### C MP #### [facility] [address] [place] [address] Dr. Julia Velasquez Calcium [Mass/Vol] 8.1 mg/dL Critically low 8.5-10.1 Th [facility] Comment on above: Performed By: #### C MP #### [facility] [address] [address] [address] Julia Velasquez Chloride [Moles/Vol] 116 mmol/L Critically high 98-107 [facility] Comment on above: Performed By: #### C MP #### [facility] [address] [address] [address] Julia Velasquez CO2 [Moles/Vol] 21.3 mmol/L Normal 21.0-32.[address] [facility] Comment on above: Performed By: #### C MP #### [facility] [address] [address] [address] Julia Velasquez Creatinine [Mass/Vol] 1.10 mg/dL Critically high 0.55-1.02 [facility] Comment on above: Performed By: #### C MP #### [facility] [address] [address] [address] Julia Velasquez EGFR-AF BAHRAINI 58 mL/min/1.73m2 Critically low >=60 [facility] Comment on above: Performed By: #### C MP #### [facility] [address] [address] [address] Julia Velasquez EGFR-NON AF BAHRAINI 48 mL/min/1.73m2 Critically low >=60 [facility] Comment on above: Performed By: #### C MP #### [facility] [address] [address] [address] Julia Velasquez Globulin (S) [Mass/Vol] 3.8 g/dL Normal [facility] Comment on above: Performed By: #### C MP #### [facility] [address] [address] [address] Julia Velasquez Glucose [Mass/Vol] 110 mg/dL Critically high 74-106 [facility] Comment on above: Performed By: #### C MP #### [facility] [address] [address] [address] Julia Velasquez Potassium [Moles/Vol] 4.7 mmol/L Normal 3.5-5.1 [facility] Comment on above: Performed By: #### C MP #### [facility] [address] [address] [address] Julia Velasquez Protein [Mass/Vol] 5.1 g/dL Critically low 6.4-8.2 Th [facility] Comment on above: Performed By: #### C MP #### [facility] [address] [place] [address] Dr. Julia Velasquez Sodium [Moles/Vol] 146 mmol/L Critically high 136-145 [facility] Comment on above: Performed By: #### C MP #### [facility] [address] [place] [address] Dr. Julia Velasquez Urea nitrogen [Mass/Vol] 34.0 mg/dL Critically high 7.0-18.0 [facility] Comment on above: Performed By: #### C MP #### [facility] [address] [place] [address] Dr. Julia Velasquez Urea nitrogen/Creatinine [Mass ratio] 30.9 mg/mg Normal [facility] Comment on above: Performed By: #### C MP #### [facility] [address] [place] [address] Dr. Julia Velasquez CBC W MANUAL DIFFon 12-14-19 23 ATYPICAL LYMPH # 0.21 103/ul Normal [facility] Comment on above: Performed By: #### C MP #### [facility] [address] [place] [address] Dr. Julia Velasquez ATYPICAL LYMPH % 1 % Normal [facility] Comment on above: Performed By: #### C MP #### [facility] [address] [place] [address] Dr. Julia Velasquez BAND # 0.2 103/ul Normal 0.0-0.3 [facility] Comment on above: Performed By: #### C MP #### [facility] [address] [place] [address] Dr. Julia Velasquez BAND % 1 % Normal 0-5 [facility] Comment on above: Performed By: #### C MP #### [facility] [address] [place] [address] Dr. Julia Velasquez BASOM # 0.00 103/ul Normal 0.00-0.10 [facility] Comment on above: Performed By: #### C MP #### [facility] [address] [place] [address] Dr. Julia Velasquez BASOM % 0.0 % Critically low 0.2-2.0 [facility] Comment on above: Performed By: #### C MP #### [facility] [address] [place] [address] Dr. Julia Velasquez BLAST # Normal [facility] Comment on above: Performed By: #### C MP #### [facility] [address] [place] [address] Dr. Julia Velasquez BLAST % Normal [facility] Comment on above: Performed By: #### C MP #### [facility] [address] [place] [address] Dr. Julia Velasquez CORRECTED WBC Normal 4.0-11.0 [facility] Comment on above: Performed By: #### C MP #### [facility] [address] [place] [address] Dr. Julia Velasquez EOS # 0.00 103/ul Normal 0.00-0.70 [facility] Comment on above: Performed By: #### C MP #### [facility] [address] [place] [address] Dr. Julia Velasquez EOS% 0.0 % Critically low 0.9-7.0 [facility] Comment on above: Performed By: #### C MP #### [facility] [address] [place] [address] Dr. Julia Velasquez HCT 26.7 % Critically low 36.0-48.0 [facility] Comment on above: Performed By: #### C MP #### [facility] [address] [place] [address] Dr. Julia Velasquez HGB 8.8 g/dl Critically low 12.0-16.0 [facility] Comment on above: Performed By: #### C MP #### [facility] [address] [place] [address] Dr. Julia Velasquez LYMPHM # 1.05 103/ul Critically low 1.20-3.80 [facility] Comment on above: Performed By: #### C MP #### [facility] [address] [place] [address] Dr. Julia Velasquez LYMPHM% 5.0 % Critically low 20.5-60.0 [facility] Comment on above: Performed By: #### C MP #### [facility] [address] [place] [address] Dr. Julia Velasquez MCH 29.0 pg Normal 26.7-34.0 [facility] Comment on above: Performed By: #### C MP #### [facility] [address] [place] [address] Dr. Julia Velasquez MCHC 33.0 g/dl Normal 29.9-35.2 [facility] Comment on above: Performed By: #### C MP #### [facility] [address] [place] [address] Dr. Julia Velasquez MCV 88.1 fL Normal 81.0-99.0 [facility] Comment on above: Performed By: #### C MP #### [facility] [address] [place] [address] Dr. Julia Velasquez METAMYELOCYTE # Normal [facility] Comment on above: Performed By: #### C MP #### [facility] [address] [place] [address] Dr. Julia Velasquez METAMYELOCYTE % Normal [facility] Comment on above: Performed By: #### C MP #### [facility] [address] [place] [address] Dr. Julia Velasquez MONOM# 0.21 103/ul Critically low 0.30-0.80 [facility] Comment on above: Performed By: #### C MP #### [facility] [address] [place] [address] Dr. Julia Velasquez MONOM% 1.0 % Critically low 1.7-12.0 [facility] Comment on above: Performed By: #### C MP #### [facility] [address] [place] [address] Dr. Julia Velasquez MPV 10.6 fL Normal 9.5-13.5 [facility] Comment on above: Performed By: #### C MP #### [facility] [address] [address] [address] Julia Velasquez MYELOCYTE # Normal [facility] Comment on above: Performed By: #### C MP #### [facility] [address] [address] [address] Julia Velasquez MYELOCYTE % Normal [facility] Comment on above: Performed By: #### C MP #### [facility] [address] [address] [address] Julia Velasquez NRBC Normal [facility] Comment on above: Performed By: #### C MP #### [facility] [address] [place] [address] Dr. Julia Velasquez PLT 271 103/ul Normal 150-450 [facility] Comment on above: Performed By: #### C MP #### [facility] [address] [place] [address] Dr. Julia Velasquez RBC 3.03 106/ul Critically low 4.20-5.40 [facility] Comment on above: Performed By: #### C MP #### [facility] [address] [place] [address] Dr. Julia Velasquez RDW 16.7 % Critically high 11.0-15.0 [facility] Comment on above: Performed By: #### C MP #### [facility] [address] [address] [address] Julia Velasquez SEG # 19.41 103/ul Critically high 1.40-6.50 [facility] Comment on above: Performed By: #### C MP #### [facility] [address] [place] [address] Dr. Julia Velasquez SEG % 92.0 % Critically high 43.0-75.0 [facility] Comment on above: Performed By: #### C MP #### [facility] [address] [address] [address] Julia Velasquez WBC 21.1 103/ul Critically high 4.0-11.[address] [facility] Comment on above: Performed By: #### C MP #### [facility] [address] [place] [address] Dr. Julia Velasquez PROF 14(COMP METB)on 023 Albumin [Mass/Vol] 1.4 g/dL Critically low 3.4-5.0 Th e [facility] Comment on above: Performed By: #### C MP #### [facility] [address] [place] [address] Dr. Julia Velasquez Albumin/Globulin [Mass ratio] 0.4 {ratio} Normal [facility] Comment on above: Performed By: #### C MP #### [facility] [address] [place] [address] Dr. Julia Velasquez ALP [Catalytic activity/Vol] 87 U/L Normal 46-116 [facility] Comment on above: Performed By: #### C MP #### [facility] [address] [place] [address] Dr. Julia Velasquez ALT [Catalytic activity/Vol] 26 U/L Normal 14-59 [facility] Comment on above: Performed By: #### C MP #### [facility] [address] [place] [address] Dr. Julia Velasquez Anion gap [Moles/Vol] 14.7 mmol/L Normal [facility] Comment on above: Performed By: #### C MP #### [facility] [address] [place] [address] Dr. Julia Velasquez AST [Catalytic activity/Vol] 59 U/L Critically high 15-37 [facility] Comment on above: Performed By: #### C MP #### [facility] [address] [place] [address] Dr. Julia Velasquez Bilirubin [Mass/Vol] 1.5 mg/dL Critically high 0.2-1.0 [facility] Comment on above: Performed By: #### C MP #### [facility] [address] [place] [address] Dr. Julia Velasquez Calcium [Mass/Vol] 8.1 mg/dL Critically low 8.5-10.1 Th e [facility] Comment on above: Performed By: #### C MP #### [facility] [address] [address] [address] Julia Velasquez Chloride [Moles/Vol] 118 mmol/L Critically high 98-107 [facility] Comment on above: Performed By: #### C MP #### [facility] [address] [address] [address] Julia Velasquez CO2 [Moles/Vol] 20.6 mmol/L Critically low 21.0-32.0 [facility] Comment on above: Performed By: #### C MP #### [facility] [address] [address] [address] Julia Velasquez Creatinine [Mass/Vol] 1.20 mg/dL Critically high 0.55-1.02 [facility] Comment on above: Performed By: #### C MP #### [facility] [address] [address] [address] Julia Velasquez EGFR-AF BAHRAINI 52 mL/min/1.73m2 Critically low >=60 [facility] Comment on above: Performed By: #### C MP #### [facility] [address] [place] [address] Dr. Julia Velasquez EGFR-NON AF BAHRAINI 43 mL/min/1.73m2 Critically low >=60 [facility] Comment on above: Performed By: #### C MP #### [facility] [address] [address] [address] Julia Velasquez Globulin (S) [Mass/Vol] 3.4 g/dL Normal [facility] Comment on above: Performed By: #### C MP #### [facility] [address] [address] [address] Julia Velasquez Glucose [Mass/Vol] 119 mg/dL Critically high 74-106 [facility] Comment on above: Performed By: #### C MP #### [facility] [address] [address] [address] Julia Velasquez Potassium [Moles/Vol] 4.3 mmol/L Normal 3.5-5.1 [facility] Comment on above: Performed By: #### C MP #### [facility] [address] [address] [address] Julia Velasquez Protein [Mass/Vol] 4.8 g/dL Critically low 6.4-8.2 Th e [facility] Comment on above: Performed By: #### C MP #### [facility] [address] [address] [address] Julia Velasquez Sodium [Moles/Vol] 149 mmol/L Critically high 136-145 [facility] Comment on above: Performed By: #### C MP #### [facility] [address] [address] [address] Julia Velasquez Urea nitrogen [Mass/Vol] 47.0 mg/dL Critically high 7.0-18.0 [facility] Comment on above: Performed By: #### C MP #### [facility] [address] [address] [address] Julia Velasquez Urea nitrogen/Creatinine [Mass ratio] 39.2 mg/mg Normal [facility] Comment on above: Performed By: #### C MP #### [facility] [address] [address] [address] Julia Velasquez CBC W MANUAL DIFFon 12-13-19 23 ATYPICAL LYMPH # Normal [facility] Comment on above: Performed By: #### L IVER, BMP, LIPA, EDSON #### [facility] [address] [address] [address] Julia Velasquez ATYPICAL LYMPH % Normal [facility] Comment on above: Performed By: #### L IVER, BMP, LIPA, EDSON #### [facility] [address] [address] [address] Julia Velasquez BAND # 0.9 103/ul Critically high 0.0-0.3 [facility] Comment on above: Performed By: #### L IVER, BMP, LIPA, EDSON #### [facility] [address] [address] [address] Julia Velasquez BAND % 3 % Normal 0-5 [facility] Comment on above: Performed By: #### L IVER, BMP, LIPA, EDSON #### [facility] [address] [address] [address] Julia Velasquez BASOM # 0.00 103/ul Normal 0.00-0.10 [facility] Comment on above: Performed By: #### L IVER, BMP, LIPA, EDSON #### [facility] [address] [address] [address] Julia Velasquez BASOM % 0.0 % Critically low 0.2-2.0 [facility] Comment on above: Performed By: #### L IVER, BMP, LIPA, EDSON #### [facility] [address] [address] [address] Julia Velasquez BLAST # Normal [facility] Comment on above: Performed By: #### L IVER, BMP, LIPA, EDSON #### [facility] [address] [place] [address] Dr. Julia Velasquez BLAST % Normal [facility] Comment on above: Performed By: #### L IVER, BMP, LIPA, EDSON #### [facility] [address] [place] [address] Dr. Julia Velasquez CORRECTED WBC Normal 4.0-11.0 [facility] Comment on above: Performed By: #### L IVER, BMP, LIPA, EDSON #### [facility] [address] [place] [address] Dr. Julia Velasquez EOS # 0.00 103/ul Normal 0.00-0.70 [facility] Comment on above: Performed By: #### L IVER, BMP, LIPA, EDSON #### [facility] [address] [place] [address] Dr. Julia Velasquez EOS% 0.0 % Critically low 0.9-7.0 [facility] Comment on above: Performed By: #### L IVER, BMP, LIPA, EDSON #### [facility] [address] [place] [address] Dr. Julia Velasquez HCT 28.9 % Critically low 36.0-48.0 [facility] Comment on above: Performed By: #### L IVER, BMP, LIPA, EDSON #### [facility] [address] [address] [address] Julia Velasquez HGB 9.5 g/dl Critically low 12.0-16.0 [facility] Comment on above: Performed By: #### L IVER, BMP, LIPA, EDSON #### [facility] [address] [place] [address] Dr. Julia Velasquez LYMPHM # 1.21 103/ul Normal 1.20-3.80 [facility] Comment on above: Performed By: #### L IVER, BMP, LIPA, EDSON #### [facility] [address] [place] [address] Dr. Julia Velasquez LYMPHM% 4.0 % Critically low 20.5-60.0 [facility] Comment on above: Performed By: #### L IVER, BMP, LIPA, EDSON #### [facility] [address] [place] [address] Dr. Julia Velasquez MCH 29.2 pg Normal 26.7-34.0 [facility] Comment on above: Performed By: #### L IVER, BMP, LIPA, EDSON #### [facility] [address] [place] [address] Dr. Julia Velasquez MCHC 32.9 g/dl Normal 29.9-35.2 [facility] Comment on above: Performed By: #### L IVER, BMP, LIPA, EDSON #### [facility] [address] [place] [address] Dr. Julia Velasquez MCV 88.9 fL Normal 81.0-99.0 [facility] Comment on above: Performed By: #### L IVER, BMP, LIPA, EDSON #### [facility] [address] [place] [address] Dr. Julia Velasquez METAMYELOCYTE # Normal [facility] Comment on above: Performed By: #### L IVER, BMP, LIPA, EDSON #### [facility] [address] [place] [address] Dr. Julia Velasquez METAMYELOCYTE % Normal [facility] Comment on above: Performed By: #### L IVER, BMP, LIPA, EDSON #### [facility] [address] [place] [address] Dr. Julia Velasquez MONOM# 1.21 103/ul Critically high 0.30-0.[address] [facility] Comment on above: Performed By: #### L IVER, BMP, LIPA, EDSON #### [facility] [address] [place] [address] Dr. Julia Velasquez MONOM% 4.0 % Normal 1.7-12.0 [facility] Comment on above: Performed By: #### L IVER, BMP, LIPA, EDSON #### [facility] [address] [place] [address] Dr. Julia Velasquez MPV 11.2 fL Normal 9.5-13.5 [facility] Comment on above: Performed By: #### L IVER, BMP, LIPA, EDSON #### [facility] [address] [place] [address] Dr. Julia Velasquez MYELOCYTE # Normal [facility] Comment on above: Performed By: #### L IVER, BMP, LIPA, EDSON #### [facility] [address] [place] [address] Dr. Julia Velasquez MYELOCYTE % Normal [facility] Comment on above: Performed By: #### L IVER, BMP, LIPA, EDSON #### [facility] [address] [place] [address] Dr. Julia Velasquez NRBC 2 Normal [facility] Comment on above: Performed By: #### L IVER, BMP, LIPA, EDSON #### [facility] [address] [place] [address] Dr. Julia Velasquez PLT 273 103/ul Normal 150-450 [facility] Comment on above: Performed By: #### L IVER, BMP, LIPA, EDSON #### [facility] [address] [place] [address] Dr. Julia Velasquez RBC 3.25 106/ul Critically low 4.20-5.40 [facility] Comment on above: Performed By: #### L IVER, BMP, LIPA, EDSON #### [facility] [address] [place] [address] Dr. Julia Velasquez RDW 16.0 % Critically high 11.0-15.0 [facility] Comment on above: Performed By: #### L IVER, BMP, LIPA, EDSON #### [facility] [address] [place] [address] Dr. Julia Velasquez SEG # 26.97 103/ul Critically high 1.40-6.50 [facility] Comment on above: Performed By: #### L IVER, BMP, LIPA, EDSON #### [facility] [address] [place] [address] Dr. Julia Velasquez SEG % 89.0 % Critically high 43.0-75.0 [facility] Comment on above: Performed By: #### L IVER, BMP, LIPA, EDSON #### [facility] [address] [place] [address] Dr. Julia Velasquez WBC 30.3 103/ul Critically high 4.0-11.[address] [facility] Comment on above: Performed By: #### L IVER, BMP, LIPA, EDSON #### [facility] [address] [place] [address] Dr. Julia Velasquez GI PANEL (PCR)on 12-12-2022 Adenovirus F 40/41 Not detected Normal NOT DETECTED [facility] Comment on above: Performed By: #### L IVER, BMP, LIPA, EDSON #### [facility] [address] [place] [address] Dr. Julia Velasquez Astrovirus Not detected Normal NOT DETECTED [facility] Comment on above: Performed By: #### L IVER, BMP, LIPA, EDSON #### [facility] [address] [place] [address] Dr. Julia Velasquez C. Diff toxin A/B Not detected Normal NOT DETECTED [facility] Comment on above: Performed By: #### L IVER, BMP, LIPA, EDSON #### [facility] [address] [place] [address] Dr. Julia Velasquez Campylobacter Not detected Normal NOT DETECTED [facility] Comment on above: Performed By: #### L IVER, BMP, LIPA, EDSON #### [facility] [address] [place] [address] Dr. Julia Velasquez Cryptosporidium Not detected Normal NOT DETECTED [facility] Comment on above: Performed By: #### L IVER, BMP, LIPA, EDSON #### [facility] [address] [place] [address] Dr. Julia Velasquez Cyclos. Cayetanensis Not detected Normal NOT DETECTED [facility] Comment on above: Performed By: #### L IVER, BMP, LIPA, EDSON #### [facility] [address] [place] [address] Dr. Julia Velasquez E. Coli O157 Not Applicable Normal Not Applicable [facility] Comment on above: Performed By: #### L IVER, BMP, LIPA, EDSON #### [facility] [address] [place] [address] Dr. Julia Velasquez E. histolytica Not detected Normal NOT DETECTED [facility] Comment on above: Performed By: #### L IVER, BMP, LIPA, EDSON #### [facility] [address] [place] [address] Dr. Julia Velasquez EAEC Not detected Normal NOT DETECTED [facility] Comment on above: Performed By: #### L IVER, BMP, LIPA, EDSON #### [facility] [address] [place] [address] Dr. Julia Velasquez EIEC Not detected Normal NOT DETECTED [facility] Comment on above: Performed By: #### L IVER, BMP, LIPA, EDSON #### [facility] [address] [place] [address] Dr. Julia Velasquez EPEC Not detected Normal NOT DETECTED [facility] Comment on above: Performed By: #### L IVER, BMP, LIPA, EDSON #### [facility] [address] [place] [address] Dr. Julia Velasquez ETEC Not detected Normal NOT DETECTED [facility] Comment on above: Performed By: #### L IVER, BMP, LIPA, EDSON #### [facility] [address] [place] [address] Dr. Julia Rowley Not detected Normal NOT DETECTED [facility] Comment on above: Performed By: #### L IVER, BMP, LIPA, EDSON #### [facility] [address] [address] [address] Julia DE PAZ CONTROLS PASSED Normal [facility] Comment on above: Performed By: #### L IVER, BMP, LIPA, EDSON #### [facility] [address] [address] [address] Julia NIELSON HEADER GI PANEL BACTERIA Normal [facility] Comment on above: Performed By: #### L IVER, BMP, LIPA, EDSON #### [facility] [address] [place] [address] Dr. Julia DEMPSEY ECOLI GI PANEL DIARRHEAGENIC E.COLI / SHIGELLA Normal [facility] Comment on above: Performed By: #### L IVER, BMP, LIPA, EDSON #### [facility] [address] [place] [address] Dr. Julia DEMPSEY INFO SEE BELOW [facility] Comment on above: Result Comment: EAEC - Enteroaggregative E. Coli EPEC- Enteropathogenic E. Coli ETEC- Enterotoxigenic E. Coli lt/st STEC- Shigella-like toxin-producing E. Coli stx1/stx2 EIEC- Shigella/Enteroinvasive E. Coli Performed By: #### L IVER, BMP, LIPA, EDSON #### [facility] [address] [address] [address] Julia DEMPSEY PARASITES GI PANEL PARASITES Normal [facility] Comment on above: Performed By: #### L IVER, BMP, LIPA, EDSON #### [facility] [address] [address] [address] Julia DEMPSEY VIRUS GI PANEL VIRUSES Normal [facility] Comment on above: Performed By: #### L IVER, BMP, LIPA, EDSON #### [facility] [address] [place] [address] Dr. Julia Velasquez Norovirus GI/GII Not detected Normal NOT DETECTED [facility] Comment on above: Performed By: #### L IVER, BMP, LIPA, EDSON #### [facility] [address] [place] [address] Dr. Julia Velasquez P. Shigelloides Not detected Normal NOT DETECTED [facility] Comment on above: Performed By: #### L IVER, BMP, LIPA, EDSON #### [facility] [address] [place] [address] Dr. Julia Velasquez Rotavirus A Not detected Normal NOT DETECTED [facility] Comment on above: Performed By: #### L IVER, BMP, LIPA, EDSON #### [facility] [address] [place] [address] Dr. Julia Velasquez Salmonella Not detected Normal NOT DETECTED [facility] Comment on above: Performed By: #### L IVER, BMP, LIPA, EDSON #### [facility] [address] [place] [address] Dr. Julia Velasquez Sapovirus Not detected Normal NOT DETECTED [facility] Comment on above: Performed By: #### L IVER, BMP, LIPA, EDSON #### [facility] [address] [place] [address] Dr. Julia Velasquez STEC Not detected Normal NOT DETECTED [facility] Comment on above: Performed By: #### L IVER, BMP, LIPA, EDSON #### [facility] [address] [place] [address] Dr. Julia Velasquez Vibrio Not detected Normal NOT DETECTED [facility] Comment on above: Performed By: #### L IVER, BMP, LIPA, EDSON #### [facility] [address] [place] [address] Dr. Julia Velasquez Vibrio Cholera Not detected Normal NOT DETECTED [facility] Comment on above: Performed By: #### L IVER, BMP, LIPA, EDSON #### [facility] [address] [place] [address] Dr. Julia Velasquez Y. Enterocolitica Not detected Normal NOT DETECTED [facility] Comment on above: Performed By: #### L IVER, BMP, LIPA, EDSON #### [facility] [address] [place] [address] Dr. Julia Velasquez PROF 14(COMP METB)on 023 Albumin [Mass/Vol] 1.4 g/dL Critically low 3.4-5.0 Th [facility] Comment on above: Performed By: #### L IVER, BMP, LIPA, EDSON #### [facility] [address] [place] [address] Dr. Julia Velasquez Albumin/Globulin [Mass ratio] 0.3 {ratio} Normal [facility] Comment on above: Performed By: #### L IVER, BMP, LIPA, EDSON #### [facility] [address] [place] [address] Dr. Julia Velasquez ALP [Catalytic activity/Vol] 89 U/L Normal 46-116 [facility] Comment on above: Performed By: #### L IVER, BMP, LIPA, EDSON #### [facility] [address] [place] [address] Dr. Julia Velasquez ALT [Catalytic activity/Vol] 27 U/L Normal 14-59 [facility] Comment on above: Performed By: #### L IVER, BMP, LIPA, EDSON #### [facility] [address] [place] [address] Dr. Julia Velasquez Anion gap [Moles/Vol] 14.7 mmol/L Normal [facility] Comment on above: Performed By: #### L IVER, BMP, LIPA, EDSON #### [facility] [address] [place] [address] Dr. Julia Velasquez AST [Catalytic activity/Vol] 58 U/L Critically high 15-37 [facility] Comment on above: Performed By: #### L IVER, BMP, LIPA, EDSON #### [facility] [address] [place] [address] Dr. Julia Velasquez Bilirubin [Mass/Vol] 2.0 mg/dL Critically high 0.2-1.0 [facility] Comment on above: Performed By: #### L IVER, BMP, LIPA, EDSON #### [facility] [address] [place] [address] Dr. Julia Velasquez Calcium [Mass/Vol] 8.8 mg/dL Normal 8.5-10.1 [facility] Comment on above: Performed By: #### L IVER, BMP, LIPA, EDSON #### [facility] [address] [place] [address] Dr. Julia Velasquez Chloride [Moles/Vol] 118 mmol/L Critically high 98-107 [facility] Comment on above: Performed By: #### L IVER, BMP, LIPA, EDSON #### [facility] [address] [place] [address] Dr. Julia Velasquez CO2 [Moles/Vol] 20.7 mmol/L Critically low 21.0-32.0 [facility] Comment on above: Performed By: #### L IVER, BMP, LIPA, EDSON #### [facility] [address] [place] [address] Dr. Julia Velasquez Creatinine [Mass/Vol] 1.63 mg/dL Critically high 0.55-1.02 [facility] Comment on above: Performed By: #### L IVER, BMP, LIPA, EDSON #### [facility] [address] [place] [address] Dr. Julia Velasquez EGFR-AF BAHRAINI 37 mL/min/1.73m2 Critically low >=60 [facility] Comment on above: Performed By: #### L IVER, BMP, LIPA, EDSON #### [facility] [address] [place] [address] Dr. Julia Velasquez EGFR-NON AF BAHRAINI 30 mL/min/1.73m2 Critically low >=60 [facility] Comment on above: Performed By: #### L IVER, BMP, LIPA, EDSON #### [facility] [address] [place] [address] Dr. Julia Velasquez Globulin (S) [Mass/Vol] 4.7 g/dL Normal [facility] Comment on above: Performed By: #### L IVER, BMP, LIPA, EDSON #### [facility] [address] [place] [address] Dr. Julia Velasquez Glucose [Mass/Vol] 130 mg/dL Critically high 74-106 [facility] Comment on above: Performed By: #### L IVER, BMP, LIPA, EDSON #### [facility] [address] [place] [address] Dr. Julia Velasquez Potassium [Moles/Vol] 4.4 mmol/L Normal 3.5-5.1 [facility] Comment on above: Performed By: #### L IVER, BMP, LIPA, EDSON #### [facility] [address] [place] [address] Dr. Julia Velasquez Protein [Mass/Vol] 6.1 g/dL Critically low 6.4-8.2 Th [facility] Comment on above: Performed By: #### L IVER, BMP, LIPA, EDSON #### [facility] [address] [place] [address] Dr. Julia Velasquez Sodium [Moles/Vol] 149 mmol/L Critically high 136-145 [facility] Comment on above: Performed By: #### L IVER, BMP, LIPA, EDSON #### [facility] [address] [place] [address] Dr. Julia Velasquez Urea nitrogen [Mass/Vol] 56.0 mg/dL Critically high 7.0-18.0 [facility] Comment on above: Performed By: #### L IVER, BMP, LIPA, EDSON #### [facility] [address] [place] [address] Dr. Julia Velasquez Urea nitrogen/Creatinine [Mass ratio] 34.4 mg/mg Normal [facility] Comment on above: Performed By: #### L IVER, BMP, LIPA, EDSON #### [facility] [address] [place] [address] Dr. Julia Velasquez RESPIRATORY PANEL PLUSon Adenovirus Not detected Normal NOT DETECTED [facility] Comment on above: Performed By: #### L IVER, BMP, LIPA, EDSON #### [facility] [address] [address] [address] Julia Charles Parapertusis Not detected Normal NOT DETECTED [facility] Comment on above: Performed By: #### L IVER, BMP, LIPA, EDSON #### [facility] [address] [address] [address] Julia Charles Pertussis Not detected Normal NOT DETECTED The [facility] Comment on above: Performed By: #### L IVER, BMP, LIPA, EDSON #### [facility] [address] [place] [address] Dr. Julia Velasquez Chlamydia Pneumoniae Not detected Normal NOT DETECTED [facility] Comment on above: Performed By: #### L IVER, BMP, LIPA, EDSON #### [facility] [address] [place] [address] Dr. Julia Velasquez Coronavirus 229E Not detected Normal NOT DETECTED [facility] Comment on above: Performed By: #### L IVER, BMP, LIPA, EDSON #### [facility] [address] [place] [address] Dr. Julia Velasquez Coronavirus HKU1 Not detected Normal NOT DETECTED [facility] Comment on above: Performed By: #### L IVER, BMP, LIPA, EDSON #### [facility] [address] [place] [address] Dr. Julia Velasquez Coronavirus NL63 Not detected Normal NOT DETECTED [facility] Comment on above: Performed By: #### L IVER, BMP, LIPA, EDSON #### [facility] [address] [place] [address] Dr. Julia Velasquez Coronavirus OC43 Not detected Normal NOT DETECTED [facility] Comment on above: Performed By: #### L IVER, BMP, LIPA, EDSON #### [facility] [address] [place] [address] Dr. Julia Velasquez Influenza A H1 Not detected Normal NOT DETECTED [facility] Comment on above: Performed By: #### L IVER, BMP, LIPA, EDSON #### [facility] [address] [address] [address] Julia Velasquez Influenza A H1 2009 Not detected Normal NOT DETECTED [facility] Comment on above: Performed By: #### L IVER, BMP, LIPA, EDSON #### [facility] [address] [address] [address] Julia Velasquez Influenza A H3 Not detected Normal NOT DETECTED [facility] Comment on above: Performed By: #### L IVER, BMP, LIPA, EDSON #### [facility] [address] [address] [address] Julia Velasquez Influenza B Not detected Normal NOT DETECTED [facility] Comment on above: Performed By: #### L IVER, BMP, LIPA, EDSON #### [facility] [address] [address] [address] Julia Velasquez Metapneumovirus Not detected Normal NOT DETECTED [facility] Comment on above: Performed By: #### L IVER, BMP, LIPA, EDSON #### [facility] [address] [place] [address] Dr. Julia Velasquez Mycoplas. Pneumoniae Not detected Normal NOT DETECTED [facility] Comment on above: Performed By: #### L IVER, BMP, LIPA, EDSON #### [facility] [address] [address] [address] Julia Velasquez Parainfluenza 1 Not detected Normal NOT DETECTED [facility] Comment on above: Performed By: #### L IVER, BMP, LIPA, EDSON #### [facility] [address] [address] [address] Julia Velasquez Parainfluenza 2 Not detected Normal NOT DETECTED [facility] Comment on above: Performed By: #### L IVER, BMP, LIPA, EDSON #### [facility] [address] [address] [address] Julia Velasquez Parainfluenza 3 Not detected Normal NOT DETECTED [facility] Comment on above: Performed By: #### L IVER, BMP, LIPA, EDSON #### [facility] [address] [place] [address] Dr. Julia Velasquez Parainfluenza 4 Not detected Normal NOT DETECTED [facility] Comment on above: Performed By: #### L NANCY MONDRAGON LIPA, EDSON #### [facility] [address] [place] [address] Dr. Julia Velasquez Rhino/Enterovirus Not detected Normal NOT DETECTED [facility] Comment on above: Performed By: #### L NANCY MONDRAGON LIPA, EDSON #### [facility] [address] [place] [address] Dr. Julia Velasquez RP2 Header 1 RESPIRATORY PANEL: VIRUSES Normal [facility] Comment on above: Performed By: #### L NANCY MONDRAGON LIPA, EDSON #### [facility] [address] [place] [address] Dr. Julia Velasquez RP2 Header 2 RESPIRATORY PANEL: BACTERIA Normal [facility] Comment on above: Performed By: #### L NANCY MONDRAGON LIPA, EDSON #### [facility] [address] [place] [address] Dr. Julia Velasquez RSV Not detected Normal NOT DETECTED [facility] Comment on above: Performed By: #### L NANCY MONDRAGON LIPA, EDSON #### [facility] [address] [place] [address] Dr. Julia Velasquez SARS-CoV-2 (COVID-19) RNA MARIO+probe Ql (Unsp spec) Not detected Normal NOT DETECTED [facility] Comment on above: Performed By: #### L NANCY MONDRAGON LIPA, EDSON #### [facility] [address] [place] [address] Dr. Julia Velasquez CBC AUTO DIFFon 12-11-2022 BASO # 0.1 103/ul Normal 0.0-0.1 [facility] Comment on above: Performed By: #### C MP #### [facility] [address] [place] [address] Dr. Julia Velasquez Basophils/100 WBC (Bld) 0.4 % Normal 0.2-2.0 [facility] Comment on above: Performed By: #### C MP #### [facility] [address] [address] [address] Julia Velasquez EO # 0.0 103/ul Normal 0.0-0.7 [facility] Comment on above: Performed By: #### C MP #### [facility] [address] [address] [address] Julia Velasquez Eosinophils/100 WBC (Bld) 0.0 % Critically low 0.9-7.0 [facility] Comment on above: Performed By: #### C MP #### [facility] [address] [place] [address] Dr. Julia Velasquez Erythrocyte distribution width (RBC) [Ratio] 15.9 % Critically high 11.0-15.0 [facility] Comment on above: Performed By: #### C MP #### [facility] [address] [place] [address] Dr. Julia Velasquez Hematocrit (Bld) [Volume fraction] 34.4 % Critically low 36.0-48.0 [facility] Comment on above: Performed By: #### C MP #### [facility] [address] [place] [address] Dr. Julia Velasquez Hemoglobin (Bld) [Mass/Vol] 11.1 g/dL Critically low 12.0-16.0 [facility] Comment on above: Performed By: #### C MP #### [facility] [address] [place] [address] Dr. Julia Velasquez IG # 0.75 10e3/ul Critically high 0.00-0.03 [facility] Comment on above: Performed By: #### C MP #### [facility] [address] [place] [address] Dr. Julia Velasquez IG % 2.7 % Critically high 0.0-0.5 [facility] Comment on above: Performed By: #### C MP #### [facility] [address] [place] [address] Dr. Julia Velasquez LYMPH # 0.7 103/ul Critically low 1.2-3.8 [facility] Comment on above: Performed By: #### C MP #### [facility] [address] [place] [address] Dr. Julia Velasquez Lymphocytes/100 WBC (Bld) 2.4 % Critically low 20.5-60.0 [facility] Comment on above: Performed By: #### C MP #### [facility] [address] [place] [address] Dr. Julia Velasquez MANUAL DIFF REQ NO Normal [facility] Comment on above: Performed By: #### C MP #### [facility] [address] [place] [address] Dr. Julia Velasquez MCH (RBC) [Entitic mass] 29.2 pg Normal 26.7-34.0 [facility] Comment on above: Performed By: #### C MP #### [facility] [address] [place] [address] Dr. Julia Velasquez MCHC (RBC) [Mass/Vol] 32.3 g/dL Normal 29.9-35.2 [facility] Comment on above: Performed By: #### C MP #### [facility] [address] [place] [address] Dr. Julia Velasquez MCV (RBC) [Entitic vol] 90.5 fL Normal 81.0-99.0 [facility] Comment on above: Performed By: #### C MP #### [facility] [address] [place] [address] Dr. Julia Velasquez MONO # 0.7 103/ul Normal 0.3-0.8 [facility] Comment on above: Performed By: #### C MP #### [facility] [address] [place] [address] Dr. Julia Velasquez Monocytes/100 WBC (Bld) 2.6 % Normal 1.7-12.0 [facility] Comment on above: Performed By: #### C MP #### [facility] [address] [place] [address] Dr. Julia Velasquez NEUT # 25.6 103/ul Critically high 1.4-6.5 The [facility] Comment on above: Performed By: #### C MP #### [facility] [address] [place] [address] Dr. Julia Velasquez Neutrophils/100 WBC (Bld) 91.9 % Critically high 43.0-75.0 [facility] Comment on above: Performed By: #### C MP #### [facility] [address] [place] [address] Dr. Julia Velasquez Platelet mean volume (Bld) [Entitic vol] 11.1 fL Normal 9.5-13.5 [facility] Comment on above: Performed By: #### C MP #### [facility] [address] [place] [address] Dr. Julia Velasquez PLT 240 103/ul Normal 150-450 [facility] Comment on above: Performed By: #### C MP #### [facility] [address] [place] [address] Dr. Julia Velasquez RBC 3.80 106/ul Critically low 4.20-5.40 [facility] Comment on above: Performed By: #### C MP #### [facility] [address] [place] [address] Dr. Julia Velasquez WBC 27.9 103/ul Critically high 4.0-11.0 The [facility] Comment on above: Performed By: #### C MP #### [facility] [address] [place] [address] Dr. Julia Velasquez CBC W MANUAL DIFFon 12-12-19 23 ATYPICAL LYMPH # Normal The [facility] Comment on above: Performed By: #### L IVER BMP, LIPA, EDSON #### [facility] [address] [place] [address] Dr. Julia Velasquez ATYPICAL LYMPH % Normal The [facility] Comment on above: Performed By: #### L IVER BMP, LIPA, EDSON #### [facility] [address] [place] [address] Dr. Julia Velasquez BAND # 3.0 103/ul Critically high 0.0-0.3 [facility] Comment on above: Performed By: #### L IVER, BMP, LIPA, EDSON #### [facility] [address] [address] [address] Julia Velasquez BAND % 9 % Critically high 0-5 [facility] Comment on above: Performed By: #### L IVER, BMP, LIPA, EDSON #### [facility] [address] [place] [address] Dr. Julia Velasquez BASOM # 0.00 103/ul Normal 0.00-0.10 [facility] Comment on above: Performed By: #### L IVER, BMP, LIPA, EDSON #### [facility] [address] [place] [address] Dr. Julia Velasquez BASOM % 0.0 % Critically low 0.2-2.0 [facility] Comment on above: Performed By: #### L IVER, BMP, LIPA, EDSON #### [facility] [address] [place] [address] Dr. Julia Velasquez BLAST # Normal [facility] Comment on above: Performed By: #### L IVER, BMP, LIPA, EDSON #### [facility] [address] [place] [address] Dr. Juila Velasquez BLAST % Normal [facility] Comment on above: Performed By: #### L IVER, BMP, LIPA, EDSON #### [facility] [address] [place] [address] Dr. Julia Velasquez CORRECTED WBC Normal 4.0-11.0 [facility] Comment on above: Performed By: #### L IVER, BMP, LIPA, EDSON #### [facility] [address] [place] [address] Dr. Julia Velasquez EOS # 0.00 103/ul Normal 0.00-0.70 [facility] Comment on above: Performed By: #### L IVER, BMP, LIPA, EDSON #### [facility] [address] [place] [address] Dr. Julia Velasquez EOS% 0.0 % Critically low 0.9-7.0 [facility] Comment on above: Performed By: #### L IVER, BMP, LIPA, EDSON #### [facility] [address] [address] [address] Julia Velasquez HCT 30.7 % Critically low 36.0-48.0 [facility] Comment on above: Performed By: #### L IVER, BMP, LIPA, EDSON #### [facility] [address] [place] [address] Dr. Julia Velasquez HGB 10.1 g/dl Critically low 12.0-16.0 [facility] Comment on above: Performed By: #### L IVER, BMP, LIPA, EDSON #### [facility] [address] [address] [address] Julia Velasquez LYMPHM # 0.67 103/ul Critically low 1.20-3.80 [facility] Comment on above: Performed By: #### L IVER, BMP, LIPA, EDSON #### [facility] [address] [place] [address] Dr. Julia Velasquez LYMPHM% 2.0 % Critically low 20.5-60.0 [facility] Comment on above: Performed By: #### L IVER, BMP, LIPA, EDSON #### [facility] [address] [address] [address] Julia Velasquez MCH 29.5 pg Normal 26.7-34.0 [facility] Comment on above: Performed By: #### L IVER, BMP, LIPA, EDSON #### [facility] [address] [place] [address] Dr. Julia Velasquez MCHC 32.9 g/dl Normal 29.9-35.2 [facility] Comment on above: Performed By: #### L IVER, BMP, LIPA, EDSON #### [facility] [address] [place] [address] Dr. Julia Velasquez MCV 89.8 fL Normal 81.0-99.0 [facility] Comment on above: Performed By: #### L IVER, BMP, LIPA, EDSON #### [facility] [address] [place] [address] Dr. Julia Velasquez METAMYELOCYTE # Normal [facility] Comment on above: Performed By: #### L IVER, BMP, LIPA, EDSON #### [facility] [address] [place] [address] Dr. Julia Velasquez METAMYELOCYTE % Normal [facility] Comment on above: Performed By: #### L IVER, BMP, LIPA, EDSON #### [facility] [address] [place] [address] Dr. Julia Velasquez MONOM# 0.33 103/ul Normal 0.30-0.80 [facility] Comment on above: Performed By: #### L IVER, BMP, LIPA, EDSON #### [facility] [address] [place] [address] Dr. Julia Velasquez MONOM% 1.0 % Critically low 1.7-12.0 [facility] Comment on above: Performed By: #### L IVER, BMP, LIPA, EDSON #### [facility] [address] [place] [address] Dr. Julia Velasquez MPV 10.1 fL Normal 9.5-13.5 [facility] Comment on above: Performed By: #### L IVER, BMP, LIPA, EDSON #### [facility] [address] [place] [address] Dr. Julia Velasquez MYELOCYTE # Normal [facility] Comment on above: Performed By: #### L IVER, BMP, LIPA, EDSON #### [facility] [address] [place] [address] Dr. Julia Velasquez MYELOCYTE % Normal [facility] Comment on above: Performed By: #### L IVER, BMP, LIPA, EDSON #### [facility] [address] [place] [address] Dr. Julia Velasquez NRBC Normal [facility] Comment on above: Performed By: #### L IVER, BMP, LIPA, EDSON #### [facility] [address] [place] [address] Dr. Julia Velasquez PLT 256 103/ul Normal 150-450 [facility] Comment on above: Performed By: #### L IVER, BMP, LIPA, EDSON #### [facility] [address] [place] [address] Dr. Julia Velasquez RBC 3.42 106/ul Critically low 4.20-5.40 [facility] Comment on above: Performed By: #### L IVER, BMP, LIPA, EDSON #### [facility] [address] [place] [address] Dr. Julia Velasquez RDW 15.9 % Critically high 11.0-15.0 [facility] Comment on above: Performed By: #### L IVER, BMP, LIPA, EDSON #### [facility] [address] [place] [address] Dr. Julia Velasquez SEG # 29.39 103/ul Critically high 1.40-6.50 [facility] Comment on above: Performed By: #### L IVER, BMP, LIPA, EDSON #### [facility] [address] [place] [address] Dr. Julia Velasquez SEG % 88.0 % Critically high 43.0-75.0 [facility] Comment on above: Performed By: #### L IVER, BMP, LIPA, EDSON #### [facility] [address] [place] [address] Dr. Julia Velasquez WBC 33.4 103/ul Critically high 4.0-11.[address] [facility] Comment on above: Performed By: #### L IVER, BMP, LIPA, EDSON #### [facility] [address] [place] [address] Dr. Julia Velasquez CULTURE BLOODon 12-11-2022 Microscopic examination of blood, culture Culture Observations: NO GROWTH AT 5 DAYS. [facility] Comment on above: Performed By: #### C MP #### [facility] [address] [place] [address] Dr. Julia Velasquez Microscopic examination of blood, culture Culture Observations: NO GROWTH AT 5 DAYS. [facility] Comment on above: Performed By: #### C MP #### [facility] [address] [place] [address] Dr. Julia Velasquez PROF 14(COMP METB)on 04-06-2 023 Albumin [Mass/Vol] 1.9 g/dL Critically low 3.4-5.0 [facility] Comment on above: Performed By: #### C MP #### [facility] [address] [place] [address] Dr. Julia Velasquez Albumin/Globulin [Mass ratio] 0.5 {ratio} Normal [facility] Comment on above: Performed By: #### C MP #### [facility] [address] [address] [address] Julia Velasquez ALP [Catalytic activity/Vol] 94 U/L Normal 46-116 [facility] Comment on above: Performed By: #### C MP #### [facility] [address] [place] [address] Dr. Julia Velasquez ALT [Catalytic activity/Vol] 34 U/L Normal 14-59 [facility] Comment on above: Performed By: #### C MP #### [facility] [address] [place] [address] Dr. Julia Velasquez Anion gap [Moles/Vol] 19.9 mmol/L Normal [facility] Comment on above: Performed By: #### C MP #### [facility] [address] [place] [address] Dr. Julia Velasquez AST [Catalytic activity/Vol] 82 U/L Critically high 15-37 [facility] Comment on above: Performed By: #### C MP #### [facility] [address] [place] [address] Dr. Julia Velasquez Bilirubin [Mass/Vol] 3.0 mg/dL Critically high 0.2-1.0 [facility] Comment on above: Performed By: #### C MP #### [facility] [address] [place] [address] Dr. Julia Velasquez Calcium [Mass/Vol] 8.2 mg/dL Critically low 8.5-10.1 Th [facility] Comment on above: Performed By: #### C MP #### [facility] [address] [place] [address] Dr. Julia Velasquez Chloride [Moles/Vol] 112 mmol/L Critically high 98-107 [facility] Comment on above: Performed By: #### C MP #### [facility] [address] [address] [address] Julia Velasquez CO2 [Moles/Vol] 18.7 mmol/L Critically low 21.0-32.0 [facility] Comment on above: Performed By: #### C MP #### [facility] [address] [address] [address] Julia Velasquez Creatinine [Mass/Vol] 1.75 mg/dL Critically high 0.55-1.02 [facility] Comment on above: Performed By: #### C MP #### [facility] [address] [address] [address] Julia Velasquez EGFR-AF BAHRAINI 34 mL/min/1.73m2 Critically low >=60 [facility] Comment on above: Performed By: #### C MP #### [facility] [address] [address] [address] Julia Velasquez EGFR-NON AF BAHRAINI 28 mL/min/1.73m2 Critically low >=60 [facility] Comment on above: Performed By: #### C MP #### [facility] [address] [address] [address] Julia Velasquez Globulin (S) [Mass/Vol] 3.6 g/dL Normal [facility] Comment on above: Performed By: #### C MP #### [facility] [address] [address] [address] Julia Velasquez Glucose [Mass/Vol] 95 mg/dL Normal 74-106 [facility] Comment on above: Performed By: #### C MP #### [facility] [address] [address] [address] Julia Velasquez Potassium [Moles/Vol] 4.6 mmol/L Normal 3.5-5.1 [facility] Comment on above: Performed By: #### C MP #### [facility] [address] [address] [address] Julia Velasquez Protein [Mass/Vol] 5.5 g/dL Critically low 6.4-8.2 Th [facility] Comment on above: Performed By: #### C MP #### [facility] [address] [address] [address] Julia Velasquez Sodium [Moles/Vol] 146 mmol/L Critically high 136-145 [facility] Comment on above: Performed By: #### C MP #### [facility] [address] [address] [address] Julia Velasquez Urea nitrogen [Mass/Vol] 58.0 mg/dL Critically high 7.0-18.0 [facility] Comment on above: Performed By: #### C MP #### [facility] [address] [address] [address] Julia Velasquez Urea nitrogen/Creatinine [Mass ratio] 33.1 mg/mg Normal [facility] Comment on above: Performed By: #### C MP #### [facility] [address] [address] [address] Julia Velasquez XR CHEST 2 Von 12-11-2022 XR CHEST 2 V EXAMINATION: XR [...] BUCKY CRAIG Date: 2022-12-11 11:52 Normal [facility] CBC W MANUAL DIFFon 12-11-19 23 ATYPICAL LYMPH # 0.18 103/ul Normal [facility] Comment on above: Performed By: #### C BCMAN #### [facility] [address] [place] [address] Dr. Julia Velasquez ATYPICAL LYMPH % 1 % Normal [facility] Comment on above: Performed By: #### C BRYNN #### [facility] [address] [place] [address] Dr. Julia Velasquez BAND # 0.0 103/ul Normal 0.0-0.3 [facility] Comment on above: Performed By: #### C BRYNN #### [facility] [address] [place] [address] Dr. Julia Velasquez BAND % 0 % Normal 0-5 [facility] Comment on above: Performed By: #### C BRYNN #### [facility] [address] [place] [address] Dr. Julia Velasquez BASOM # 0.00 103/ul Normal 0.00-0.10 [facility] Comment on above: Performed By: #### C BRYNN #### [facility] [address] [place] [address] Dr. Julia Velasquez BASOM % 0.0 % Critically low 0.2-2.0 [facility] Comment on above: Performed By: #### C BRYNN #### [facility] [address] [place] [address] Dr. Julia Velasquez BLAST # Normal [facility] Comment on above: Performed By: #### C BRYNN #### [facility] [address] [place] [address] Dr. Julia Velasquez BLAST % Normal [facility] Comment on above: Performed By: #### C BRYNN #### [facility] [address] [place] [address] Dr. Julia Velasquez CORRECTED WBC Normal 4.0-11.0 [facility] Comment on above: Performed By: #### C BRYNN #### [facility] [address] [place] [address] Dr. Julia Velasquez EOS # 0.00 103/ul Normal 0.00-0.70 [facility] Comment on above: Performed By: #### C BRYNN #### [facility] [address] [address] [address] Julia Velasquez EOS% 0.0 % Critically low 0.9-7.0 [facility] Comment on above: Performed By: #### C BRYNN #### [facility] [address] [place] [address] Dr. Julia Velasquez HCT 31.8 % Critically low 36.0-48.0 [facility] Comment on above: Performed By: #### C BRYNN #### [facility] [address] [address] [address] Julia Velasquez HGB 10.4 g/dl Critically low 12.0-16.0 [facility] Comment on above: Performed By: #### C BRYNN #### [facility] [address] [place] [address] Dr. Julia Velasquez LYMPHM # 0.35 103/ul Critically low 1.20-3.80 [facility] Comment on above: Performed By: #### C BRYNN #### [facility] [address] [place] [address] Dr. Julia Velasquez LYMPHM% 2.0 % Critically low 20.5-60.0 [facility] Comment on above: Performed By: #### C BRYNN #### [facility] [address] [place] [address] Dr. Julia Velasquez MCH 29.3 pg Normal 26.7-34.0 [facility] Comment on above: Performed By: #### C BRYNN #### [facility] [address] [place] [address] Dr. Julia Velasquez MCHC 32.7 g/dl Normal 29.9-35.2 [facility] Comment on above: Performed By: #### C BRYNN #### [facility] [address] [place] [address] Dr. Julia Velasquez MCV 89.6 fL Normal 81.0-99.0 [facility] Comment on above: Performed By: #### C BRYNN #### [facility] [address] [place] [address] Dr. Julia Velasquez METAMYELOCYTE # Normal [facility] Comment on above: Performed By: #### C BRYNN #### [facility] [address] [address] [address] Julia Velasquez METAMYELOCYTE % Normal [facility] Comment on above: Performed By: #### C BCJACKLYN #### [facility] [address] [address] [address] Julia Velasquez MONOM# 0.88 103/ul Critically high 0.30-0.[address] [facility] Comment on above: Performed By: #### C BRYNN #### [facility] [address] [address] [address] Julia Velasquez MONOM% 5.0 % Normal 1.7-12.0 [facility] Comment on above: Performed By: #### C BRYNN #### [facility] [address] [place] [address] Dr. Julia Velasquez MPV 10.6 fL Normal 9.5-13.5 [facility] Comment on above: Performed By: #### C BRYNN #### [facility] [address] [place] [address] Dr. Julia Velasquez MYELOCYTE # Normal [facility] Comment on above: Performed By: #### C BRYNN #### [facility] [address] [place] [address] Dr. Julia Velasquez MYELOCYTE % Normal [facility] Comment on above: Performed By: #### C BRYNN #### [facility] [address] [place] [address] Dr. Julia Velasquez NRBC Normal [facility] Comment on above: Performed By: #### C BRYNN #### [facility] [address] [address] [address] Julia Velasquez PLT 231 103/ul Normal 150-450 [facility] Comment on above: Performed By: #### C BRYNN #### [facility] [address] [address] [address] Julia Velasquez RBC 3.55 106/ul Critically low 4.20-5.40 [facility] Comment on above: Performed By: #### C BRYNN #### [facility] [address] [address] [address] Julia Velasquez RDW 15.1 % Critically high 11.0-15.0 [facility] Comment on above: Performed By: #### C BCMAN #### [facility] [address] [address] [address] Julia Velasquez SEG # 16.19 103/ul Critically high 1.40-6.50 [facility] Comment on above: Performed By: #### C BCMAN #### [facility] [address] [address] [address] Julia Velasquez SEG % 92.0 % Critically high 43.0-75.0 [facility] Comment on above: Performed By: #### C BCMAN #### [facility] [address] [address] [address] Julia Velasquez WBC 17.6 103/ul Critically high 4.0-11.[address] [facility] Comment on above: Performed By: #### C BCMAN #### [facility] [address] [address] [address] Julia Velasquez FERRITINon 12-10-2022 Ferritin [Mass/Vol] 450.0 ng/mL Critically high 8.0-252.0 [facility] Comment on above: Performed By: #### C MP #### [facility] [address] [address] [address] Julia Velasquez IRON AND TIBCon 12-10-2022 % SATURATION 5.6 % Normal [facility] Comment on above: Performed By: #### C MP #### [facility] [address] [address] [address] Julia Velasquez Iron [Mass/Vol] 11.0 ug/dL Critically low 50.0-170.0 [facility] Comment on above: Performed By: #### C MP #### [facility] [address] [address] [address] Julia Velasquez TIBC DIRECT 195.0 ug/dL Critically low 250.0-450.0 [facility] Comment on above: Performed By: #### C MP #### [facility] [address] [address] [address] Julia Velasquez PROF 14(COMP METB)on 023 Albumin [Mass/Vol] 2.0 g/dL Critically low 3.4-5.0 [facility] Comment on above: Performed By: #### C MP #### [facility] [address] [address] [address] Julia Velasquez Albumin/Globulin [Mass ratio] 0.4 {ratio} Normal [facility] Comment on above: Performed By: #### C MP #### [facility] [address] [place] [address] Dr. Julia Velasquez ALP [Catalytic activity/Vol] 87 U/L Normal 46-116 [facility] Comment on above: Performed By: #### C MP #### [facility] [address] [place] [address] Dr. Julia Velasquez ALT [Catalytic activity/Vol] 32 U/L Normal 14-59 [facility] Comment on above: Performed By: #### C MP #### [facility] [address] [place] [address] Dr. Julia Velasquez Anion gap [Moles/Vol] 16.2 mmol/L Normal [facility] Comment on above: Performed By: #### C MP #### [facility] [address] [place] [address] Dr. Julia Velasquez AST [Catalytic activity/Vol] 50 U/L Critically high 15-37 [facility] Comment on above: Performed By: #### C MP #### [facility] [address] [place] [address] Dr. Julia Velasquez Bilirubin [Mass/Vol] 1.7 mg/dL Critically high 0.2-1.0 [facility] Comment on above: Performed By: #### C MP #### [facility] [address] [place] [address] Dr. Julia Velasquez Calcium [Mass/Vol] 8.6 mg/dL Normal 8.5-10.1 [facility] Comment on above: Performed By: #### C MP #### [facility] [address] [address] [address] Julia Velasquez Chloride [Moles/Vol] 107 mmol/L Normal 98-107 [facility] Comment on above: Performed By: #### C MP #### [facility] [address] [address] [address] Julia Velasquez CO2 [Moles/Vol] 22.1 mmol/L Normal 21.0-32.[address] [facility] Comment on above: Performed By: #### C MP #### [facility] [address] [address] [address] Julia Velasquez Creatinine [Mass/Vol] 2.38 mg/dL Critically high 0.55-1.02 [facility] Comment on above: Performed By: #### C MP #### [facility] [address] [address] [address] Julia Velasquez EGFR-AF BAHRAINI 24 mL/min/1.73m2 Critically low >=60 [facility] Comment on above: Performed By: #### C MP #### [facility] [address] [address] [address] Julia Velasquez EGFR-NON AF BAHRAINI 20 mL/min/1.73m2 Critically low >=60 [facility] Comment on above: Performed By: #### C MP #### [facility] [address] [address] [address] Julia Velasquez Globulin (S) [Mass/Vol] 4.7 g/dL Normal [facility] Comment on above: Performed By: #### C MP #### [facility] [address] [address] [address] Julia Velasquez Glucose [Mass/Vol] 116 mg/dL Critically high 74-106 [facility] Comment on above: Performed By: #### C MP #### [facility] [address] [address] [address] Julia Velasquez Potassium [Moles/Vol] 3.3 mmol/L Critically low 3.5-5.1 [facility] Comment on above: Performed By: #### C MP #### [facility] [address] [address] [address] Julia Velasquez Protein [Mass/Vol] 6.7 g/dL Normal 6.4-8.2 [facility] Comment on above: Performed By: #### C MP #### [facility] [address] [place] [address] Dr. Julia Velasquez Sodium [Moles/Vol] 142 mmol/L Normal 136-145 [facility] Comment on above: Performed By: #### C MP #### [facility] [address] [place] [address] Dr. Julia Velasquez Urea nitrogen [Mass/Vol] 57.0 mg/dL Critically high 7.0-18.0 [facility] Comment on above: Performed By: #### C MP #### [facility] [address] [place] [address] Dr. Julia Velasquez Urea nitrogen/Creatinine [Mass ratio] 23.9 mg/mg Normal [facility] Comment on above: Performed By: #### C MP #### [facility] [address] [place] [address] Dr. Julia Velasquez AMYLASEon 12-09-2022 Amylase [Catalytic activity/Vol] 18 U/L Critically low 25-115 [facility] Comment on above: Performed By: #### L IVER, BMP, LIPA, EDSON #### [facility] [address] [place] [address] Dr. Julia Velasquez CBC W MANUAL DIFFon 12-10-19 23 ATYPICAL LYMPH # Normal [facility] Comment on above: Performed By: #### C MP #### [facility] [address] [place] [address] Dr. Julia Velasquez ATYPICAL LYMPH % Normal [facility] Comment on above: Performed By: #### C MP #### [facility] [address] [place] [address] Dr. Julia Velasquez BAND # 0.8 103/ul Critically high 0.0-0.3 [facility] Comment on above: Performed By: #### C MP #### [facility] [address] [place] [address] Dr. Julia Velasquez BAND % 4 % Normal 0-5 [facility] Comment on above: Performed By: #### C MP #### [facility] [address] [place] [address] Dr. Julia Velasquez BASOM # 0.00 103/ul Normal 0.00-0.10 [facility] Comment on above: Performed By: #### C MP #### [facility] [address] [place] [address] Dr. Julia Velasquez BASOM % 0.0 % Critically low 0.2-2.0 [facility] Comment on above: Performed By: #### C MP #### [facility] [address] [place] [address] Dr. Julia Velasquez BLAST # Normal [facility] Comment on above: Performed By: #### C MP #### [facility] [address] [place] [address] Dr. Julia Velasquez BLAST % Normal [facility] Comment on above: Performed By: #### C MP #### [facility] [address] [place] [address] Dr. Julia Velasquez CORRECTED WBC Normal 4.0-11.0 [facility] Comment on above: Performed By: #### C MP #### [facility] [address] [place] [address] Dr. Julia Velasquez EOS # 0.00 103/ul Normal 0.00-0.70 [facility] Comment on above: Performed By: #### C MP #### [facility] [address] [place] [address] Dr. Julia Velasquez EOS% 0.0 % Critically low 0.9-7.0 [facility] Comment on above: Performed By: #### C MP #### [facility] [address] [place] [address] Dr. Julia Velasquez HCT 27.2 % Critically low 36.0-48.0 [facility] Comment on above: Performed By: #### C MP #### [facility] [address] [place] [address] Dr. Julia Velasquez HGB 8.9 g/dl Critically low 12.0-16.0 [facility] Comment on above: Performed By: #### C MP #### [facility] [address] [place] [address] Dr. Julia Velasquez LYMPHM # 0.99 103/ul Critically low 1.20-3.80 [facility] Comment on above: Performed By: #### C MP #### [facility] [address] [place] [address] Dr. Julia Velasquez LYMPHM% 5.0 % Critically low 20.5-60.0 [facility] Comment on above: Performed By: #### C MP #### [facility] [address] [place] [address] Dr. Julia Velasquez MCH 29.3 pg Normal 26.7-34.0 [facility] Comment on above: Performed By: #### C MP #### [facility] [address] [place] [address] Dr. Julia Velasquez MCHC 32.7 g/dl Normal 29.9-35.2 [facility] Comment on above: Performed By: #### C MP #### [facility] [address] [place] [address] Dr. Julia Velasquez MCV 89.5 fL Normal 81.0-99.0 [facility] [facility] Comment on above: Performed By: #### C MP #### [facility] [address] [place] [address] Dr. Julia Velasquez METAMYELOCYTE # Normal [facility] Comment on above: Performed By: #### C MP #### [facility] [address] [place] [address] Dr. Julia Velasquez METAMYELOCYTE % Normal [facility] Comment on above: Performed By: #### C MP #### [facility] [address] [place] [address] Dr. Julia Velasquez MONOM# 0.59 103/ul Normal 0.30-0.80 [facility] Comment on above: Performed By: #### C MP #### [facility] [address] [place] [address] Dr. Julia Velasquez MONOM% 3.0 % Normal 1.7-12.0 [facility] Comment on above: Performed By: #### C MP #### [facility] [address] [place] [address] Dr. Julia Velasquez MPV 10.9 fL Normal 9.5-13.5 [facility] Comment on above: Performed By: #### C MP #### [facility] [address] [place] [address] Dr. Julia Velasquez MYELOCYTE # Normal [facility] Comment on above: Performed By: #### C MP #### [facility] [address] [place] [address] Dr. Julia Velasquez MYELOCYTE % Normal [facility] Comment on above: Performed By: #### C MP #### [facility] [address] [place] [address] Dr. Julia Velasquez NRBC Normal [facility] Comment on above: Performed By: #### C MP #### [facility] [address] [place] [address] Dr. Julia Velasquez PLT 268 103/ul Normal 150-450 [facility] Comment on above: Performed By: #### C MP #### [facility] [address] [place] [address] Dr. Julia Velasquez RBC 3.04 106/ul Critically low 4.20-5.40 [facility] Comment on above: Performed By: #### C MP #### [facility] [address] [place] [address] Dr. Julia Velasquez RDW 15.0 % Normal 11.0-15.0 [facility] Comment on above: Performed By: #### C MP #### [facility] [address] [place] [address] Dr. Julia Velasquez SEG # 17.42 103/ul Critically high 1.40-6.50 [facility] Comment on above: Performed By: #### C MP #### [facility] [address] [place] [address] Dr. Julia Velasquez SEG % 88.0 % Critically high 43.0-75.0 [facility] Comment on above: Performed By: #### C MP #### [facility] [address], [place] [address] Dr. Julia Velasquez WBC 19.8 103/ul Critically high 4.0-11.0 The [facility] Comment on above: Performed By: #### C MP #### [facility] [address], [place] [address] ABD/PELVIS WO CONon [...] RAKESH MANNING Date: 2022-12-09 19:43 Normal [facility] CT FACIAL BONES WO CONon CT [...] KELVIN MCLAUGHLIN Date: 2022-12-09 20:18 Normal [facility]on SARS-CoV-2 (COVID-19) RNA MARIO+probe Ql (Unsp spec) Not detected Normal NOT DETECTED [facility] Comment on above: Result Comment: When [...] for this test is supported by the [employer]er of Health and Human Service's declaration that [...] longer be used). Performed By: #### L IVER BMP, LIPA, EDSON #### [facility] [address] [place] [address] Dr. Julia Velasquez LIPASEon 12-09-2022 Lipase [Catalytic activity/Vol] 86.0 U/L Normal 73.0-393.0 [facility] Comment on above: Performed By: #### L IVER, BMP, LIPA, EDSON #### [facility] [address] [place] [address] Dr. Julia Velasquez LIVER PROFILEon 12-09-2022 Albumin [Mass/Vol] 2.4 g/dL Critically low 3.4-5.0 [facility] Comment on above: Performed By: #### L IVER BMP, LIPA, EDSON #### [facility] [address] [place] [address] Dr. Julia Velasquez Albumin/Globulin [Mass ratio] 0.5 {ratio} Normal [facility] Comment on above: Performed By: #### L IVER, BMP, LIPA, EDSON #### [facility] [address] [place] [address] Dr. Julia Velasquez ALP [Catalytic activity/Vol] 104 U/L Normal 46-116 [facility] Comment on above: Performed By: #### L IVER, BMP, LIPA, EDSON #### [facility] [address] [place] [address] Dr. Julia Velasquez ALT [Catalytic activity/Vol] 35 U/L Normal 14-59 [facility] Comment on above: Performed By: #### L IVER, BMP, LIPA, EDSON #### [facility] [address] [place] [address] Dr. Julia Velasquez AST [Catalytic activity/Vol] 59 U/L Critically high 15-37 [facility] Comment on above: Performed By: #### L IVER, BMP, LIPA, EDSON #### [facility] [address] [place] [address] Dr. Julia Velasquez BILI, CONJUGATED 1.0 mg/dL Critically high 0.0-0.2 [facility] Comment on above: Performed By: #### L IVER, BMP, LIPA, EDSON #### [facility] [address] [place] [address] Dr. Julia Velasquez Bilirubin [Mass/Vol] 1.9 mg/dL Critically high 0.2-1.0 [facility] Comment on above: Performed By: #### L IVER, BMP, LIPA, EDSON #### [facility] [address] [place] [address] Dr. Julia Velasquez Globulin (S) [Mass/Vol] 5.0 g/dL Normal [facility] Comment on above: Performed By: #### L IVER, BMP, LIPA, EDSON #### [facility] [address] [place] [address] Dr. Julia Velasquez Protein [Mass/Vol] 7.4 g/dL Normal 6.4-8.2 [facility] Comment on above: Performed By: #### L IVER, BMP, LIPA, EDSON #### [facility] [address] [place] [address] Dr. Julia Velasquez OCC BLD IMMUNOASSAYon 2022 OCCULT BLOOD Negative Normal NEGATIVE [facility] Comment on above: Performed By: #### L IVER, BMP, LIPA, EDSON #### [facility] [address] [place] [address] Dr. Julia Velasquez PROF CHEM 8 (BAS METB)on Anion gap [Moles/Vol] 18.8 mmol/L Normal [facility] Comment on above: Performed By: #### L IVER, BMP, LIPA, EDSON #### [facility] [address] [place] [address] Dr. Julia Velasquez Calcium [Mass/Vol] 9.2 mg/dL Normal 8.5-10.1 [facility] Comment on above: Performed By: #### L IVER, BMP, LIPA, EDSON #### [facility] [address] [place] [address] Dr. Julia Velasquez Chloride [Moles/Vol] 100 mmol/L Normal 98-107 [facility] Comment on above: Performed By: #### L IVER, BMP, LIPA, EDSON #### [facility] [address] [place] [address] Dr. Julia Velasquez CO2 [Moles/Vol] 24.3 mmol/L Normal 21.0-32.[address] [facility] Comment on above: Performed By: #### L IVER, BMP, LIPA, EDSON #### [facility] [address] [place] [address] Dr. Julia Velasquez Creatinine [Mass/Vol] 2.98 mg/dL Critically high 0.55-1.02 [facility] Comment on above: Performed By: #### L IVER, BMP, LIPA, EDSON #### [facility] [address] [place] [address] Dr. Julia Velasquez EGFR-AF BAHRAINI 18 mL/min/1.73m2 Critically low >=60 [facility] Comment on above: Performed By: #### L IVER, BMP, LIPA, EDSON #### [facility] [address] [place] [address] Dr. Julia Velasquez EGFR-NON AF BAHRAINI 15 mL/min/1.73m2 Critically low >=60 [facility] Comment on above: Performed By: #### L IVER, BMP, LIPA, EDSON #### [facility] [address] [place] [address] Dr. Julia Velasquez Glucose [Mass/Vol] 116 mg/dL Critically high 74-106 [facility] Comment on above: Performed By: #### L IVER, BMP, LIPA, EDSON #### [facility] [address] [place] [address] Dr. Julia Velasquez Potassium [Moles/Vol] 4.1 mmol/L Normal 3.5-5.1 [facility] Comment on above: Performed By: #### L IVER, BMP, LIPA, EDSON #### [facility] [address] [place] [address] Dr. Julia Velasquez Sodium [Moles/Vol] 139 mmol/L Normal 136-145 [facility] Comment on above: Performed By: #### L IVER, BMP, LIPA, EDSON #### [facility] [address] [place] [address] Dr. Julia Velasquez Urea nitrogen [Mass/Vol] 57.0 mg/dL Critically high 7.0-18.0 [facility] Comment on above: Performed By: #### L IVER, BMP, LIPA, EDSON #### [facility] [address] [place] [address] Dr. Julia Velasquez Urea nitrogen/Creatinine [Mass ratio] 19.1 mg/mg Normal [facility] Comment on above: Performed By: #### L IVER, BMP, LIPA, EDSON #### [facility] [address] [place] [address] Dr. Julia Velasquez CBC AUTO DIFFon 08-26-2022 BASO # 0.0 103/ul Normal 0.0-0.1 [facility] Comment on above: Performed By: #### L IVER, BMP, LIPA, EDSON #### [facility] [address] [place] [address] Dr. Julia Velasquez Basophils/100 WBC (Bld) 0.6 % Normal 0.2-2.0 [facility] Comment on above: Performed By: #### L IVER, BMP, LIPA, EDSON #### [facility] [address] [place] [address] Dr. Julia Velasquez EO # 0.3 103/ul Normal 0.0-0.7 [facility] Comment on above: Performed By: #### L IVER, BMP, LIPA, EDSON #### [facility] [address] [place] [address] Dr. Julia Velasquez Eosinophils/100 WBC (Bld) 4.9 % Normal 0.9-7.0 [facility] Comment on above: Performed By: #### L IVER, BMP, LIPA, EDSON #### [facility] [address] [place] [address] Dr. Julia Velasquez Erythrocyte distribution width (RBC) [Ratio] 13.2 % Normal 11.0-15.0 [facility] Comment on above: Performed By: #### L IVER, BMP, LIPA, EDSON #### [facility] [address] [place] [address] Dr. Julia Velasquez Hematocrit (Bld) [Volume fraction] 40.9 % Normal 36.0-48.0 [facility] Comment on above: Performed By: #### L IVER, BMP, LIPA, EDSON #### [facility] [address] [place] [address] Dr. Julia Velasquez Hemoglobin (Bld) [Mass/Vol] 13.0 g/dL Normal 12.0-16.0 [facility] Comment on above: Performed By: #### L IVER, BMP, LIPA, EDSON #### [facility] [address] [place] [address] Dr. Julia Velasquez IG # 0.05 10e3/ul Critically high 0.00-0.03 [facility] Comment on above: Performed By: #### L IVER, BMP, LIPA, EDSON #### [facility] [address] [place] [address] Dr. Julia Velasquez IG % 1.0 % Critically high 0.0-0.5 [facility] Comment on above: Performed By: #### L IVER, BMP, LIPA, EDSON #### [facility] [address] [place] [address] Dr. Julia Velasquez LYMPH # 1.3 103/ul Normal 1.2-3.8 [facility] Comment on above: Performed By: #### L IVER, BMP, LIPA, EDSON #### [facility] [address] [place] [address] Dr. Julia Velasquez Lymphocytes/100 WBC (Bld) 26.1 % Normal 20.5-60.0 [facility] Comment on above: Performed By: #### L IVER, BMP, LIPA, EDSON #### [facility] [address] [place] [address] Dr. Julia Velasquez MANUAL DIFF REQ NO Normal [facility] Comment on above: Performed By: #### L IVER, BMP, LIPA, EDSON #### [facility] [address] [place] [address] Dr. Julia Velasquez MCH (RBC) [Entitic mass] 29.6 pg Normal 26.7-34.0 [facility] Comment on above: Performed By: #### L IVER, BMP, LIPA, EDSON #### [facility] [address] [place] [address] Dr. Julia Velasquez MCHC (RBC) [Mass/Vol] 31.8 g/dL Normal 29.9-35.2 [facility] Comment on above: Performed By: #### L IVER, BMP, LIPA, EDSON #### [facility] [address] [place] [address] Dr. Julia Velasquez MCV (RBC) [Entitic vol] 93.2 fL Normal 81.0-99.0 [facility] Comment on above: Performed By: #### L IVER, BMP, LIPA, EDSON #### [facility] [address] [place] [address] Dr. Julia Velasquez MONO # 0.4 103/ul Normal 0.3-0.8 [facility] Comment on above: Performed By: #### L IVER, BMP, LIPA, EDSON #### [facility] [address] [place] [address] Dr. Julia Velasquez Monocytes/100 WBC (Bld) 7.7 % Normal 1.7-12.0 [facility] Comment on above: Performed By: #### L IVER, BMP, LIPA, EDSON #### [facility] [address] [place] [address] Dr. Julia Velasquez NEUT # 3.0 103/ul Normal 1.4-6.5 [facility] Comment on above: Performed By: #### L IVER, BMP, LIPA, EDSON #### [facility] [address] [place] [address] Dr. Julia Velasquez Neutrophils/100 WBC (Bld) 59.7 % Normal 43.0-75.0 [facility] Comment on above: Performed By: #### L IVER, BMP, LIPA, EDSON #### [facility] [address] [place] [address] Dr. Julia Velasquez Platelet mean volume (Bld) [Entitic vol] 10.6 fL Normal 9.5-13.5 [facility] Comment on above: Performed By: #### L IVER, BMP, LIPA, EDSON #### [facility] [address] [place] [address] Dr. Julia Velasquez PLT 248 103/ul Normal 150-450 [facility] Comment on above: Performed By: #### L IVER, BMP, LIPA, EDSON #### [facility] [address] [place] [address] Dr. Julia Velasquez RBC 4.39 106/ul Normal 4.20-5.40 [facility] Comment on above: Performed By: #### L IVER, BMP, LIPA, EDSON #### [facility] [address] [place] [address] Dr. Julia Velasquez WBC 5.1 103/ul Normal 4.0-11.0 [facility] Comment on above: Performed By: #### L IVER, BMP, LIPA, EDSON #### [facility] [address] [place] [address] [address] Julia Velasquez LIPID PROFILEon 08-26-2022 CHOL-HDL RATIO NORM SEE BELOW Normal [facility] Comment on above: Result Comment: 3.3 - 4.4 LOW RISK 4.4 - 7.1 AVERAGE RISK 7.1 - 11.0 MODERATE RISK >11.0 HIGH RISK Performed By: #### L IVER, BMP, LIPA, EDSON #### [facility] [address] [address] [address] Julia Velasquez Cholesterol [Mass/Vol] 177 mg/dL Normal <=200 [facility] Comment on above: Performed By: #### L IVER, BMP, LIPA, EDSON #### [facility] [address] [place] [address] Dr. Julia Velasquez Cholesterol in HDL [Mass/Vol] 56 mg/dL Normal 40-60 [facility] Comment on above: Performed By: #### L IVER, BMP, LIPA, EDSON #### [facility] [address] [address] [address] Julia Velasquez Cholesterol in LDL [Mass/Vol] 99.4 mg/dL Normal [facility] Comment on above: Performed By: #### L IVER, BMP, LIPA, EDSON #### [facility] [address] [place] [address] Dr. Julia Velasquez Cholesterol.total/C holesterol in HDL [Mass ratio] 3.2 {ratio} Normal [facility] Comment on above: Performed By: #### L IVER, BMP, LIPA, EDSON #### [facility] [address] [address] [address] Julia Vleasquez HDL NORMAL > or = 60 mg/dl - LO W CARDIOVASCULAR RISK <40 mg/dl - HIGH CARDIOVASCULAR RISK Normal [facility] Comment on above: Performed By: #### L IVER, BMP, LIPA, EDSON #### [facility] [address] [place] [address] Dr. Julia Velasquez LDL CALC NORMAL SEE BELOW Normal [facility] Comment on above: Result Comment: <100 mg/dl OPTIMAL 100 - 129 mg/dl NEAR OR ABOVE OPTIMAL 130 - 159 mg/dl BORDERLINE HIGH 160 - 189 mg/dl HIGH >190 mg/dl VERY HIGH Performed By: #### L IVER, BMP, LIPA, EDSON #### [facility] [address] [address] [address] Julia Velasquez Triglyceride [Mass/Vol] 108 mg/dL Normal <=150 [facility] Comment on above: Performed By: #### L IVER, BMP, LIPA, EDSON #### [facility] [address] [address] [address] Julia Velasquez VLDL CALC 21.6 mg/dL Normal [facility] Comment on above: Performed By: #### L IVER, BMP, LIPA, EDSON #### [facility] [address] [place] [address] Dr. Julia Velasquez PROF CHEM 8 (BAS METB)on Anion gap [Moles/Vol] 11.5 mmol/L Normal [facility] Comment on above: Performed By: #### L IVER, BMP, LIPA, EDSON #### [facility] [address] [address] [address] Julia Velasquez Calcium [Mass/Vol] 9.3 mg/dL Normal 8.5-10.1 [facility] Comment on above: Performed By: #### L IVER, BMP, LIPA, EDSON #### [facility] [address] [address] [address] Julia Velasquez Chloride [Moles/Vol] 104 mmol/L Normal 98-107 [facility] Comment on above: Performed By: #### L IVER, BMP, LIPA, EDSON #### [facility] [address] [address] [address] Julia Velasquez CO2 [Moles/Vol] 30.5 mmol/L Normal 21.0-32.[address] [facility] Comment on above: Performed By: #### L IVER, BMP, LIPA, EDSON #### [facility] [address] [address] [address] Julia Velasquez Creatinine [Mass/Vol] 1.09 mg/dL Critically high 0.55-1.02 [facility] Comment on above: Performed By: #### L IVER, BMP, LIPA, EDSON #### [facility] [address] [place] [address] Dr. Julia Velasquez EGFR-AF BAHRAINI 59 mL/min/1.73m2 Critically low >=60 [facility] Comment on above: Performed By: #### L IVER, BMP, LIPA, EDSON #### [facility] [address] [place] [address] Dr. Julia Velasquez EGFR-NON AF BAHRAINI 48 mL/min/1.73m2 Critically low >=60 [facility] Comment on above: Performed By: #### L IVER, BMP, LIPA, EDSON #### [facility] [address] [place] [address] Dr. Julia Velasquez Glucose [Mass/Vol] 89 mg/dL Normal 74-106 [facility] Comment on above: Performed By: #### L IVER, BMP, LIPA, EDSON #### [facility] [address] [place] [address] Dr. Julia Velasquez Potassium [Moles/Vol] 4.0 mmol/L Normal 3.5-5.1 [facility] Comment on above: Performed By: #### L IVER, BMP, LIPA, EDSON #### [facility] [address] [place] [address] Dr. Julia Velasquez Sodium [Moles/Vol] 142 mmol/L Normal 136-145 [facility] Comment on above: Performed By: #### L IVER, BMP, LIPA, EDSON #### [facility] [address] [place] [address] Dr. Julia Velasquez Urea nitrogen [Mass/Vol] 16.0 mg/dL Normal 7.0-18.0 [facility] Comment on above: Performed By: #### L IVER, BMP, LIPA, EDSON #### [facility] [address] [place] [address] Dr. Julia Velasquez Urea nitrogen/Creatinine [Mass ratio] 14.7 mg/mg [facility] Comment on above: Performed By: #### L NANCY MONDRAGON LIPA, AMY #### [facility] [address] [address] [address] Julia Velasquez XR DEXA BONE DENSITYon [...] by: BUCKY CRAIG Date: 2022-08-25 14:10 Normal [facility] Vital Signs Date Time Vital Sign Value Performing Clinician Facility 11-25-2023 11:170400 Body height 166.37 cm [facility] 11-25-2023 11:17-0400 Body mass index (BMI) [Ratio] 23.3 kg/m2 [facility] 11-25-2023 11:17-0400 Body weight 64.63 kg [facility] 11-25-2023 11:17-0400 Diastolic blood pressure 72 mm[Hg] [facility] 11-25-2023 11:17-0400 Heart rate 66 /min [facility] 11-25-2023 11:17-0400 Respiratory rate 12 /min [facility] 11-25-2023 11:17-0400 Systolic blood pressure 127 mm[Hg] [facility] 10-14-2023 11:20-0500 Body mass index (BMI) [Ratio] 24.96 kg/m2 Shivam Ponce MD Work Phone: [facility] 10-14-2023 11:20-0500 Body weight 63.41 kg Shivam Ponce MD Work Phone: [facility] 10-14-2023 11:20-0500 Diastolic blood pressure 82 mm[Hg] Shivam Ponce MD Work Phone: [facility] 10-14-2023 11:20-0500 Systolic blood pressure 130 mm[Hg] Shivam Ponce MD Work Phone: [facility] 08-25-2023 15:00-0500 Body weight 63.04 kg [facility] 08-25-2023 15:00-0500 Diastolic blood pressure 64 mm[Hg] [facility] 08-25-2023 15:00-0500 Systolic blood pressure 114 mm[Hg] [facility] 08-25-2023 11:15-0500 Body height 166.37 cm Doni Hortongen Other [facility] 08-25-2023 11:15-0500 Body mass index (BMI) [Ratio] 22.61 kg/m2 Doni Hortongen Other [facility] [id number] Other 08-25-2023 11:15-0500 Body weight 62.6 kg Doni Miguel Other [facility] [employer] Other 08-25-2023 11:15-0500 Diastolic blood pressure 73 mm[Hg] Doni Hortony Other [facility] [employer] Other 08-25-2023 11:15-0500 Systolic blood pressure 117 mm[Hg] Doni Ditty Other [facility] [employer] Other 05-27-2023 10:00-0400 Body height 166.37 cm Kyle Ball Other [facility] [employer] Other 05-27-2023 10:00-0400 Body mass index (BMI) [Ratio] 22.74 kg/m2 Kyle Ball Other [facility] [employer] Other 05-27-2023 10:00-0400 Body weight 62.96 kg Kyle Ball Other [facility] [employer] Other 05-27-2023 10:00-0400 Diastolic blood pressure 72 mm[Hg] Kyle Ball Other [facility] [employer] Other 05-27-2023 10:00-0400 Respiratory rate 12 /min Kyle Ball Other [facility] [employer] Other 05-27-2023 10:00-0400 Systolic blood pressure 131 mm[Hg] Kyle Ball Other [facility] [employer] Other 02-10-2023 10:30-0400 Body height 166.37 cm Kyle Ball Other [facility] [employer] Other 02-10-2023 10:30-0400 Body mass index (BMI) [Ratio] 24.55 kg/m2 Kyle Ball Other [facility] [employer] Other 02-10-2023 10:30-0400 Body weight 67.95 kg Kyle Ball Other [facility] [employer] Other 02-10-2023 10:30-0400 Diastolic blood pressure 78 mm[Hg] Kyle Ball Other [facility] [employer] Other 02-10-2023 10:30-0400 Respiratory rate 12 /min Kyle Ball Other [facility] [employer] Other 02-10-2023 10:30-0400 Systolic blood pressure 111 mm[Hg] Kyle Ball Other [facility] [employer] Other 01-01-2023 11:30-0400 Body height 166.37 cm Kyle Ball Other [facility] [employer] Other 01-01-2023 11:30-0400 Body mass index (BMI) [Ratio] 23.01 kg/m2 Kyle Ball Other [facility] [employer] Other 01-01-2023 11:30-0400 Body weight 63.69 kg Kyle Ball Other [facility] [employer] Other 01-01-2023 11:30-0400 Diastolic blood pressure 77 mm[Hg] Kyle Ball Other [facility] [employer] Other 01-01-2023 11:30-0400 Respiratory rate 12 /min Kyle Ball Other [facility] [employer] Other 01-01-2023 11:30-0400 Systolic blood pressure 124 mm[Hg] Kyle Ball Other [facility] [employer] Other 12-17-2022 11:15-0400 Body height 166.37 cm Kyle Ball Other [facility] [employer] Other 12-17-2022 11:15-0400 Body mass index (BMI) [Ratio] 25.3 kg/m2 Kyle Ball Other [facility] Other 12-17-2022 11:15-0400 Body weight 70.04 kg Kyle Ball Other [facility] Other 12-17-2022 11:15-0400 Diastolic blood pressure 70 mm[Hg] Kyle Ball Other [facility] Other 12-17-2022 11:15-0400 Respiratory rate 12 /min Kyle Ball Other [facility] Other 12-17-2022 11:15-0400 Systolic blood pressure 168 mm[Hg] Kyle Ball Other [facility] Other 11-17-2022 12:00-0400 Body height 166.37 cm Kyle Ball Other [facility] Other 11-17-2022 12:00-0400 Body mass index (BMI) [Ratio] 24.15 kg/m2 Kyle Ball Other [facility] Other 11-17-2022 12:00-0400 Body weight 66.86 kg Kyle Ball Other [facility] Other 11-17-2022 12:00-0400 Diastolic blood pressure 74 mm[Hg] Kyle Ball Other [facility] Other 11-17-2022 12:00-0400 Respiratory rate 12 /min Kyle Ball Other [facility] Other 11-17-2022 12:00-0400 Systolic blood pressure 133 mm[Hg] Kyle Ball Other [facility] Other 11-14-2021 15:45-0500 Body height 166.37 cm Doni Rivera Other [facility] Other 11-14-2021 15:45-0500 Body mass index (BMI) [Ratio] 23.6 kg/m2 Doni Rivera Other [facility] Other 11-14-2021 15:45-0500 Body weight 65.32 kg Doni Rivera Other [facility] Other Encounters Encounter Date Encounter Type Care Provider Facility Start: 02-03-2024 End: 02-03-2024 [facility] Work Phone: Start: 02-03-2024 End: 02-03-2024 Patient encounter procedure [facility] Work Phone: Start: 01-20-2024 End: 01-20-2024 ambulatory SHIVAM PONCE Not Available Start: 12-28-2023 End: 12-28-2023 ambulatory [facility] Work Phone: Start: 12-28-2023 End: 12-28-2023 Patient encounter procedure [facility] Work Phone: Start: 11-25-2023 End: 11-25-2023 ambulatory [facility] Work Phone: Start: 11-25-2023 End: 11-25-2023 Patient encounter procedure [facility] Work Phone: Start: 11-16-2023 End: 11-16-2023 ambulatory MEL BELTREDIANA Not Available Start: 10-21-2023 End: 10-21-2023 ambulatory [facility] Work Phone: Start: 10-21-2023 End: 10-21-2023 Patient encounter procedure [facility] Work Phone: Start: 10-14-2023 End: 10-14-2023 ambulatory SHIVAM PONCE Not Available Start: 10-14-2023 End: 10-14-2023 Office outpatient visit 25 minutes Shivam Ponce MD Work Phone: [facility] Comment on above: Brachial plexus neur opathy (Primary Dx); Multiple sclerosis ([facility]) Start: 10-13-2023 Chart abstracting Shivam schulz MD Work Phone: [facility] [address] Start: 09-29-2023 End: 09-29-2023 ambulatory Kyle Gottlieb Other [facility] Other Start: 09-29-2023 Telephone encounter Kyle Gottlieb [facility] Start: 09-17-2023 End: 09-17-2023 ambulatory Kyle Gottlieb Other [facility] Other Start: 09-17-2023 Office outpatient visit 15 minutes Kyle Gottlieb [facility] Start: 09-17-2023 End: 09-17-2023 Patient encounter procedure [facility] Work Phone: Start: 09-15-2023 End: 09-15-2023 ambulatory Kyle Gottlieb Other [facility] Other Start: 09-15-2023 Nursing evaluation o f patient and report Kyle Gottlieb [facility] Start: 08-28-2023 End: 08-28-2023 ambulatory Tonya Hunter Other [facility] Other Start: 08-28-2023 Nursing evaluation o f patient and report Tonya Hunter [facility] Start: 08-28-2023 Telephone encounter Tonya Mattverónica her [facility] Start: 08-26-2023 End: 08-26-2023 ambulatory Tonya Hunter Other [facility] Other Start: 08-26-2023 Telephone encounter Tonya Mattverónica her [facility] Start: 08-25-2023 End: 08-25-2023 ambulatory Doni Rivera Other [facility] Other Start: 08-25-2023 Patient encounter procedure Doni Rivera [facility] Start: 08-25-2023 End: 08-25-2023 Patient encounter procedure [facility] Work Phone: Start: 08-13-2023 End: 08-13-2023 ambulatory Kyle Gottlieb Other [facility] Other Start: 08-13-2023 Nursing evaluation o f patient and report Kyle Gottlieb [facility] Start: 08-10-2023 End: 08-10-2023 ambulatory SHIVAM PONCE Not Available Start: 07-09-2023 End: 07-09-2023 ambulatory Kyle Gottlieb Other [facility] Other Start: 07-09-2023 Nursing evaluation o f patient and report Kyle Gottlieb [facility] Start: 06-19-2023 End: 06-19-2023 ambulatory Doni Rivera Other [facility] Other Start: 06-19-2023 Telephone encounter Doni [facility] Start: 06-18-2023 End: 06-18-2023 ambulatory Doni Rivera Other [facility] Other Start: 06-18-2023 Telephone encounter Doni LANZA [facility] Start: 06-08-2023 End: 06-08-2023 ambulatory Kyle Gottlieb Other [facility] Other Start: 06-08-2023 Nursing evaluation o f patient and report Kyle Gottlieb [facility] Start: 05-29-2023 End: 05-29-2023 ambulatory Kyle Gottlieb Other [facility] Other Start: 05-29-2023 Telephone encounter Kyle LANZA G [facility] Start: 05-27-2023 End: 05-27-2023 ambulatory Kyle Gottlieb Other [facility] Other Start: 05-27-2023 Patient encounter procedure Kyle Gottlieb [facility] Start: 05-13-2023 End: 05-13-2023 ambulatory Kyle Gottlieb Facility:[facility] Start: 05-13-2023 End: 05-13-2023 ambulatory DO Kyle Gottlieb Work Phone: [facility] Work Phone: Start: 05-13-2023 End: 05-13-2023 Patient encounter procedure DO Kyle Gottlieb Work Phone: [facility] Work Phone: Start: 05-07-2023 End: 05-07-2023 ambulatory Kyle Ball Other [facility] Other Start: 05-07-2023 Nursing evaluation o f patient and report Kyle Gottlieb [facility] Start: 04-06-2023 End: 04-06-2023 ambulatory Kyle Ball Other [facility] Other Start: 04-06-2023 Nursing evaluation o f patient and report Kyle Gottlieb [facility] Start: 03-23-2023 End: 03-23-2023 ambulatory Kyle Ball Other [facility] Other Start: 03-23-2023 Nursing evaluation o f patient and report Kyle Ball [facility] Start: 03-16-2023 End: 03-16-2023 ambulatory Kyle Ball Other [facility] Other Start: 03-16-2023 Nursing evaluation o f patient and report Kyle Gottlieb [facility] Start: 03-13-2023 End: 03-13-2023 ambulatory Kyle Ball Other [facility] Other Start: 03-13-2023 Telephone encounter Kyle Ball [facility] Start: 03-11-2023 End: 03-11-2023 ambulatory Kyle Ball Other [facility] Other Start: 03-11-2023 Telephone encounter Kyle Ball [facility] Start: 02-10-2023 End: 02-10-2023 ambulatory Kyle Ball Other [facility] Other Start: 02-10-2023 Office outpatient visit 25 minutes Kyle Ball [facility] Start: 02-04-2023 End: 02-04-2023 ambulatory Kyle Ball Other [facility] Other Start: 02-04-2023 Telephone encounter Kyle Gottlieb [facility] Start: 02-03-2023 End: 02-04-[address] KYLE GOTTLIEB Facility:[facility] Start: 02-03-2023 Telephone encounter Kyle Bull [facility] Start: 01-09-2023 End: 01-09-2023 ambulatory Kyle Gottlieb Other [facility] Other Start: 01-09-2023 Telephone encounter Kyle Gottlieb [facility] Start: 01-07-2023 End: 01-08-[address] KYLE GOTTLIEB Facility:[facility] Start: 01-01-2023 End: 01-01-2023 ambulatory Kyle Gottlieb Other [facility] Other Start: 01-01-2023 Office outpatient visit 25 minutes Kyle Gottlieb [facility] Start: 12-17-2022 End: 12-17-2022 ambulatory Kyle Bull Other [facility] Other Start: 12-17-2022 Telephone encounter Kyle Bull [facility] Start: 12-17-2022 Transitional care manage srvc 7 day discharge Kyle Gottlieb [facility] Start: 12-16-2022 End: 12-16-2022 ambulatory Kyle Gottlieb Other [facility] Other Start: 12-16-2022 Telephone encounter Kyle Bull [facility] Start: 12-10-2022 End: 12-14-2022 Evaluation and management of inpatient DR BYRON PEREZ . Facility:[facility] Start: 12-08-2022 End: 12-08-2022 ambulatory Doni Rivera Other [facility] Other Start: 12-08-2022 Telephone encounter Doni LANZA [facility] Start: 11-17-2022 End: 11-17-2022 ambulatory Kyle Gottlieb Other [facility] Other Start: 11-17-2022 Office outpatient visit 25 minutes [facility] Start: 09-03-2022 End: 09-03-2022 ambulatory Doni Rivera Other [facility] Other Start: 09-03-2022 Telephone encounter Doni LANZA [facility] Start: 08-26-2022 End: 08-27-[address] KYLE GOTTLIEB Facility:[facility] Start: 08-25-2022 End: 08-26-[address] KYLE GOTTLIEB Facility:[facility] Start: 05-19-2022 Adult health examination Kyle Gottlieb Other [facility] Other Start: 04-28-2022 End: 06-13-[address] KYLE GOTTLIEB Facility:[facility] Start: 04-14-2022 End: 04-14-2022 Patient encounter procedure DO Kyle Gottlieb [facility] Start: 04-09-2022 End: 04-09-2022 ambulatory Doni Rivera Other [facility] Other Start: 04-09-2022 Telephone encounter Doni LANZA [facility] Start: 12-05-2021 End: 12-05-2021 ambulatory Doni Rivera Other [facility] Other Start: 12-05-2021 Telephone encounter Doni LANZA G [facility] Start: 11-14-2021 End: 11-14-2021 ambulatory Doni Rivera Other [facility] Other Start: 11-14-2021 Patient encounter procedure Doni [...] 05/03/2024 11:15 AM EDT Office Visit [facility] [address] [place] [id number] Aamir Xavier, DO [address] [place] [address] [facility] Start: 01-20-2024 End: 01-20-2024 Patient encounter procedure 01/20/2024 10:40 AM EDT Office Visit [facility] [address] [place] [id number] Shivam Ponce MD [address] [facility] [address] [place] [address] [facility] Start: 11-16-2023 End: 11-16-2023 Patient encounter procedure 11/16/2023 11:40 AM EDT Office Visit [facility] [address] [place] [address] Mel Hayes MD [address] [place] [address] [facility] Start: 10-14-2023 End: 10-14-2023 Patient encounter procedure 10/14/2023 11:20 AM EST Office Visit [facility] [address] [place] [phone] Shivam Ponce MD [address] [facility] [address] [place] [address] [facility] Start: 05-08-2023 Influenza vaccination Influenza Vaccine (#1) [facility] Start: 2007 Pneumococcal Vaccine: 65+ Years (1 - PCV) Pneumococcal Vaccine: 65+ Years (1 - PCV) [facility] Immunizations Immunization Date Immunization Notes Care Provider Fa jeimy 05-27-2023 influenza virus vaccine, unspecified formulation [facility] 05-27-2023 Prevnar 20 Kyle Gottlieb Other [facility] 05-27-2023 influenza, high dose seasonal, preservative-free Kyle Gottlieb Other [facility] [employer] Other 07-11-2022 COVID-19 Pfizer (Pediatric) Kyle Gottlieb Other [facility] 06-23-2022 influenza, injectabl e, quadrivalent, preservative free Shivam Ponce MD Work Phone: [facility] 06-23-2022 influenza virus vaccine, unspecified formulation Shivam Ponce MD Work Phone: [facility] 05-19-2022 influenza virus vaccine, split virus (incl. purified surface antigen) Kyle Gottlieb Other [facility] [employer] Other 05-19-2022 influenza virus vaccine, unspecified formulation [facility] 05-19-2022 Influenza, High-dose Seasonal, Quadrivalent, Preservative Free Shivam Ponce MD Work Phone: [facility] 02-06-2022 COVID-19 Vaccine Pfizer - Documentation Purposes Only Kyle Gottlieb Other [facility] 06-10-2021 COVID-19 mRNA, Comirnaty (Pfizer) DO Kyle Gottlieb Work Phone: [facility] 05-17-2021 influenza virus vaccine, split virus (incl. purified surface antigen) Kyle Gottlieb Other [facility] [employer] Other 05-17-2021 influenza virus vaccine, unspecified formulation [facility] 11-22-2020 Moderna SARS-CoV-2 Vaccination Shivam Ponce MD Work Phone: [facility] 10-25-2020 COVID-19 mRNA, Comirnaty (Pfizer) DO Kyle Gottlieb Work Phone: [facility] 10-15-2020 Moderna SARS-CoV-2 Vaccination Shivam Ponce MD Work Phone: [facility] 10-04-2020 COVID-19 mRNA, Comirnaty (Pfizer) DO Kyle Gottlieb Work Phone: [facility] 10-04-2020 COVID-19 Vaccine Moderna - Documentation Purposes Only Kyle Gottlieb Other [facility] 05-16-2020 influenza virus vaccine, split virus (incl. purified surface antigen) Kyle Gottlieb Other [facility] [employer] Other 05-16-2020 influenza virus vaccine, unspecified formulation [facility] 06-02-2019 influenza virus vaccine, split virus (incl. purified surface antigen) Kyle Gottlieb Other [facility] [employer] Other 06-02-2019 influenza virus vaccine, unspecified formulation [facility] 05-25-2018 influenza virus vaccine, split virus (incl. purified surface antigen) Kyle Gottlieb Other [facility] [employer] Other 05-25-2018 influenza virus vaccine, unspecified formulation [facility] 05-25-2017 influenza virus vaccine, split virus (incl. purified surface antigen) Kyle Gottlieb Other [facility] [employer] Other 05-25-2017 influenza virus vaccine, unspecified formulation [facility] 06-11-2016 influenza virus vaccine, split virus (incl. purified surface antigen) Kyle Gottlieb Other [facility] [employer] Other 06-11-2016 influenza virus vaccine, unspecified formulation [facility] 06-13-2015 influenza virus vaccine, split virus (incl. purified surface antigen) Kyle Gottlieb Other [facility] [employer] Other 06-13-2015 influenza virus vaccine, unspecified formulation [facility] 06-13-2015 pneumococcal conjuga te vaccine, 13 valent Kyle Bull Other [facility] 06-13-2015 pneumococcal Conjugate, unspecified formulation; Translations: [Need for prophylactic vaccination against Streptococcus pneumoniae (pneumococcus)] Kyle Gottlieb Other [facility] Other 06-07-2013 tetanus and diphther ia toxoids, adsorbed, preservative free, for adult use (5 Lf of tetanus toxoid and 2 Lf of diphtheria toxoid) Kyle Gottlieb Other [facility] 06-13-2009 pneumococcal polysaccharide vaccine, 23 valent Kyle Bull Other [facility] NEGATED: Highlighted row has not occurred!05-16-2020 influenza virus vaccine, split virus (incl. purified surface antigen) Kyle Bull Other [facility] Other Payers Date Payer Category Payer Self-pay [id number] 2022 Private Health Insurance [facility] [id number] 2022-Present [address] [address] [place] [address] [id number] 1996 Medicare MEDICARE MEDICAR E RAILROAD [id number] 1996-Present [facility] [address] [address] [place] [address] Medicare [id number] 1959 Medicare [id number] 1959 Private Health Insurance [id number] 1942 Unknown [id number] [id number]. 2.593 1942 Unknown [id number] 2.16.840.1.195026.3.579. 2.593 1942 Unknown [id number] 2.16.840.1.635648.3.579. 2.593 1942 Unknown [id number] 2.16.840.1.459081.3.579. 2.593 1942 Unknown [id number] 2.16.840.1.870986.3.579. 2.593 1942 Unknown [id number] 2.16.840.1.983607.3.579. 2.593 1942 Unknown [id number] [id number]. 2.1259 1942 Unknown [id number] [id number]. 2.1259 1942 Unknown [id number] [id number]. 2.1259 1942 Unknown [id number] [id number]. 2.1259 Unknown [id number] [id number]. 2.531 Social History Date Type Detail Facility Unknown if ever smoked [facility] Other Start: 04-28-2023 End: 10-14-2023 Sex Assigned At [facility] [employer] Other Start: 11-28-2021 End: 09-17-2023 Tobacco smoking status DEIS Ex-smoker (finding) [facility] Start: 1940 Sex Assigned At Female F [facility] Start: 02-16-2023 Tobacco smoking stat us DEIS Never smoked tobacco [facility] Start: 02-16-2023 Tobacco use and exposure Smokeless tobacco non-user [facility] Start: 08-10-2023 End: 10-14-2023 Alcohol intake Lifetime non-drinker (finding) [facility] Start: 04-28-2023 End: 10-14-2023 History of Social function [facility] How often to you hav e a drink containing alcohol? Never [facility] How many standard drinks containing alcohol do you have on a typical day? Patient does not drink [facility] Start: 08-10-2023 Alcohol Comment caffeine intak e: 1-2 cups per day; pop [facility] Start: 1940 Sex Assigned At Not on file N [facility] Clinical Notes 11-14-2021 to 02-03-2024 Note Date & Type Note Facility 02-03-2024 Evaluation note Diagnosis Onset Date Gastroesophageal reflux dise ase with esophagitis without hemorrhage acute Lumbar spondylosis acute PA (pernicious anemia) acute Primary hypertension acute Stage 3a chronic kidney disease acute Venous insufficiency (chronic) (peripheral) acute Acute sinusitis noneactive [facility] Work Phone: 1(317) 412-413104-22-2024 Evaluation note* Diagnosis Onset Date Resolution Status Gastroesophageal reflux dise ase with esophagitis without hemorrhage acute Lumbar spondylosis acute PA (pernicious anemia) acute Primary hypertension acute Stage 3a chronic kidney disease acute Venous insufficiency (chronic) (peripheral) acute Acute sinusitis noneactive [facility] Work Phone: 1(621) 258-886102-07-2024 History of Present illness Narrative* Shivam Ponce MD - 10/14/2023 11:20 AM EST Subjective Gina Pierre is a 83 y.o. female. HPI Patient Is here for a follow up. She states her neck, upper shoulder area and lower back are still bothering her but not as much as the last time she was here. Pain level is a 5/10. She would like injections. States that her neck isstill tight. She states injections help her by [...] to her waste. Does not do well withsteroids. She states she has been having more [...] Plus Minerals) 600-400 MG-UNIT chewable tablet, every 12(twelve) hours., Disp: , Rfl: cetirizine (ZyrTEC) 10 [...] MOUTH THREE TIMES A DAY DIRECTED, Disp: ,Rfl: ipratropium (Atrovent) 0.06 % nasal spray, Administer 2 sprays into each nostril in the morning and2 sprays in the evening and 2 sprays before bedtime., Disp: 15 mL, Rfl: 11 Past Medical History: Diagnosis Date Cataracts, bilateral 2009 GERD (gastroesophageal reflux disease) Hiatal hernia HLD (hyperlipidemia) (CMS/FORMERLY [facility]) Hx of migraine headaches IBS (irritable bowel syndrome) Multiple sclerosis (CMS/HCC) 1993 Past Surgical History: Procedure Laterality Date [...] pain and neck stiffness. Negative for arthralgias andmyalgias. Neurological: Positive for numbness. Negative for tremors, weakness and light-headedness. Psychiatric/Behavioral: Negative for agitation, confusion and suicidal ideas. Objective Neurological Exam Mental Status Awake, alert and oriented to person, place and time. Oriented to person, place and time. Recent andremote memory are intact. Speech is normal. Language [...] reflexes: Erica's absent. Ankle clonus absent. Coordination Htaxup-he-xfyz, rapid alternating movements and [id number] normal bilaterally without dysmetria. Gait Normal casual, toe, heel and tandem gait. Romberg is absent. Assessment/Plan Diagnoses and all orders for this visit: Brachial plexus neuropathy Multiple sclerosis (CMS/HCC) Gina Pierre is a 83 y.o. year old female who presents with paresthesias in the extremities, gait instability, cognitive difficulty, weakness, and vision changes including blurred vision. Possibleetiologies include a demyelinating process such as multiple sclerosis, an intracranial process suchas stroke, or a diffuse process such as [...] nerve dysfunction including polyneuropathy. [id number] Evaluation note* Encounter Date Diagnosis Assessment Notes Treatment Notes Treatment Clinical Notes Sep, Acute non-recurrent maxillary sinusitis (ICD-10 - J01.00) Instructed to use Robitussin or Mucinex for cough, saline or Flonase NS for congestion, Tylenol for pain and fever. Sep, Multiple sclerosis (ICD-10 - G35) weakens her immune system placing her at risk for more seriou, prolonged illness [facility] Other 01-09-2024 Evaluation note* Encounter Date Diagnosis Assessment Notes Treatment Notes Treatment Clinical Notes Sep, Pernicious anemia (ICD-10 - D51.0) [facility] Other 12-22-2023 Evaluation note* Encounter Date Diagnosis Assessment Notes Treatment Notes Treatment Clinical Notes Aug, Flu-like symptoms (ICD-10 - R68.89) Aug, Acute non-recurrent maxillary sinusitis (ICD-10 - J01.00) [facility] Other 12-19-2023 Evaluation note* Encounter Date Diagnosis Assessment Notes Treatment Notes Treatment Clinical Notes Aug, Abdominal pain (ICD-10 - R10.9) Aug, Nausea & vomiting (ICD-10 - R11.2) Aug, GERD (gastroesophageal reflux disease) (ICD-10 - K21.9) Pt is doing well on the pantoprazole. Pt RTO YEARLY Aug, Early satiety (ICD-10 - R68.81) Aug, Loss of appetite (ICD-10 - R63.0) [facility] Other 12-07-2023 Evaluation note* Encounter Date Diagnosis Assessment Notes Treatment Notes Treatment Clinical Notes Aug, Pernicious anemia (ICD-10 - D51.0) [facility] Other 11-02-2023 Evaluation note* Encounter Date Diagnosis Assessment Notes Treatment Notes Treatment Clinical Notes Jul, Pernicious anemia (ICD-10 - D51.0) [facility] Other 10-02-2023 Evaluation note* Encounter Date Diagnosis Assessment Notes Treatment Notes Treatment Clinical Notes Jun, Pernicious anemia (ICD-10 - D51.0) [facility] Other 09-22-2023 Evaluation note* Encounter Date Diagnosis Assessment Notes Treatment Notes Treatment Clinical Notes May, Anemia, unspecified type (ICD-10 - D64.9) May, Fatigue, unspecified type (ICD-10 - R53.83) [facility] Other 09-20-2023 Evaluation note* Encounter Date Diagnosis [...] - R53.83) Check labs: CBC, B12, TSH [facility] Other 08-31-2023 Evaluation note* Encounter Date Diagnosis Assessment Notes Treatment Notes Treatment Clinical Notes Apr, Pernicious anemia (ICD-10 - D51.0) [facility] Other 07-31-2023 Evaluation note* Encounter Date Diagnosis Assessment Notes Treatment Notes Treatment Clinical Notes Mar, Pernicious anemia (ICD-10 - D51.0) [facility] Other 07-10-2023 Evaluation note* Encounter Date Diagnosis Assessment Notes Treatment Notes Treatment Clinical Notes Mar, Pernicious anemia (ICD-10 - D51.0) [facility] Other 07-07-2023 Evaluation note* Encounter Date Diagnosis Assessment Notes Treatment Notes Treatment Clinical Notes Mar, PA (pernicious anemia) (ICD-10 - D51.0) [facility] Other 07-05-2023 Evaluation note* Encounter Date Diagnosis Assessment Notes Treatment Notes Treatment Clinical Notes Mar, Acute pneumonia (ICD-10 - J18.9) Mar, Anemia, unspecified type (ICD-10 - D64.9) Mar, Stage 3a chronic kidney disease (ICD-10 - N18.31) [facility] Other 06-06-2023 Evaluation note* Encounter Date Diagnosis [...] FA supplement. Recheck FA/B12, CBC in month [facility] Other 05-30-2023 Evaluation note* Encounter Date Diagnosis Assessment Notes Treatment Notes Treatment Clinical Notes January, Acute pneumonia (ICD-10 - J18.9) January, Anemia, unspecified type (ICD-10 - D64.9) January, Stage 3a chronic kidney disease (ICD-10 - N18.31) [facility] Other 05-05-2023 Evaluation note* Encounter Date Diagnosis Assessment Notes Treatment Notes Treatment Clinical Notes January, Folic acid deficiency (ICD-10 - E53.8) [facility] Other 04-27-2023 Evaluation note* Encounter Date Diagnosis [...] and exerci se with continued statin therapy. [facility] Other 04-12-2023 Evaluation note* Encounter Date Diagnosis Assessment Notes Treatment Notes Treatment Clinical Notes Dec, Pneumonia of right upper lobe due to infectious organism (ICD-10 - J18.9) Continue antibiotics - will review hosp records, she likely does not need to finish full 10 day course of therapy Mucinex, hydrate, cough/deep breathing exercises Repeat CXR and consider CT chest in month 12 Dec, 2022 Essential hypertensi on (ICD-10 - I10) This [...] Weight loss. Dec, Anasarca (ICD-10 - R60.1) [facility] Other 04-03-2023 Evaluation note* Encounter Date Diagnosis Assessment Notes Treatment Notes Treatment Clinical Notes Dec, Seasonal allergic rhinitis (ICD-10 - J30.2) [facility] Other 03-13-2023 Evaluation note* Encounter Date Diagnosis [...] Daily stretching exercises, exercise, avoid strenuous lifting. [facility] Other 12-28-2022 Evaluation note* Encounter Date Diagnosis Assessment Notes Treatment Notes Treatment Clinical Notes Aug, Diarrhea (ICD-10 - R19.7) [facility] Other 03-31-2022 Evaluation note* Encounter Date Diagnosis Assessment Notes Treatment Notes Treatment Clinical Notes Nov, Diarrhea (ICD-10 - R19.7) [facility] Other 03-10-2022 Evaluation note* Encounter Date Diagnosis [...] Nov, Loss of appetite (ICD-10 - R63.0) [facility] Other Evaluation noteNo InformationNort National [employer] Other Evaluation noteNo assessment information available [facility] Work Phone: Evaluation noteNort National [employer] Other Evaluation note* Diagnosis Brachial plexus neuropathy- Primary Brachial plexus lesions Multiple sclerosis (CMS/HCC) Multiple sclerosis documented in this encounter [facility] Diagnosis Onset Date Resolution Status Gastroesophageal reflux dise ase with esophagitis without hemorrhage acute Lumbar spondylosis acute PA (pernicious anemia) acute Primary hypertension acute Stage 3a chronic kidney disease acute Venous insufficiency (chronic) (peripheral) acute Acute sinusitis noneactive [facility] Work Phone: History general Narrative - Reported* Type Description Date Surgical History appenedectomy Surgical History left ovary Surgical History total hysterectomy [facility] Other Hisptoi general Narrative - Reported* Type Description Date [...] Surgical History COLONOSCOPY 2020 Surgical History EGD 2020,2021 Hospitalization History SEE SURGICAL [facility] Other Hiscjnc general Narrative - Reported* Type Description Date [...] Surgical History COLONOSCOPY 2020 Surgical History EGD 2020,2021 Hospitalization History SEE SURGICAL [facility] [employer] Other History general Narrative - ReportedNoProfit [employer] Other History general Narrative - ReportedNoProfit [employer] Other Chief Complaint and Reason for Visit Chief Complaint Screening Chief Complaint Sore Throat Sinuses - [phone] B-12 SHOT Chief Complaint Sinuses - [phone] B-12 SHOT 6 month follow up Reason for Visit Gastroesophageal ref lux disease with esophagitis without hemorrhage Lumbar spondylosis PA (pernicious anemia) Primary hypertension Stage 3a chronic kidney disease Venous insufficiency (chronic) (peripheral) Acute sinusitis Chief Complaint B-12 SHOT 6 month follow up B12 Reason for Visit Gastroesophageal ref lux disease with esophagitis without hemorrhage Lumbar spondylosis PA (pernicious anemia) Primary hypertension Stage 3a chronic kidney disease Venous insufficiency (chronic) (peripheral) Acute sinusitis Chief Complaint 6 month follow up B12 b12 Reason for Visit Gastroesophageal ref lux disease with esophagitis without hemorrhage Lumbar spondylosis PA (pernicious anemia) Primary hypertension Stage 3a chronic kidney disease Venous insufficiency (chronic) (peripheral) Acute sinusitis Family History Relationship Condition Age at Onset [...] neoplasm Unknown Not Specified Unknown Advance Directives Advance Directive Response Recorded [...] ShotB-12 ShotWELLNESSLab ResultsB-12 ShotREFILL/OV NEEDEDSCRIPT SEND TO [facility] SCRIPTB-12 ShotB-12 FNCEp00Ex is here for a 1 year Follow up /PAST DUE/MEDSCOVID testCOVID testflu testB-12 SHOTSinuses - [phone] Care Teams (unrecognized sec tion and content) Team Status: Inactive Member Role Status Dates Kyle Gottlieb , Primary Care Provider Active Aamir Xavier , DO Attending Provider, Referring Pr hans Active Team Status: Active Member Role Status Dates Kyle Gottlieb DO Primary Care Provider Active Team Status: Inactive Member Role Status Dates Kyle Gottlieb , Primary Care Provider Active Aamir Xavier , DO Attending Provider Active [employer] Consultant Relationship Specialty Start Date End Date Kyle Gottlieb MD [address] [place] [id number] PCP - General Internal Medicine 02/16/23 [employer] Consultant Relationship Specialty Start Date End Date Kyle Gottlieb MD [address] [place] [id number] PCP - General Internal Medicine 02/16/23 Team Status: Inactive Member Role Status Dates Tonya Harrison APRN [employer] Attending Provider Act bhargavi Start: August 25, 2023 End: August 25, 2023 Team Status: Inactive Member Role Status Dates Kyle Gottlieb DO Attending Provider Active Sta rt: September 17, 2023 End: September 17, 2023 Team Status: Inactive Member Role Status Saqib Gottlieb DO Primary Care Provide r, Attending Provider Active Start: October 21, 2023 End: October 21, 2023 Team Status: Inactive Member Role Status Dates Kyle Gottlieb DO Primary Care Provide r, Attending Provider Active Start: November 25, 2023 End: November 25, 2023 Team Status: Inactive Member Role Status Dates Kyle Ball , DO Primary Care Provider Active Start: December 28, 2023 End: December 28, 2023 Aliza Daniel MD Attending Provider Active St art: December 28, 2023 End: December 28, 2023 Team Status: Inactive Member Role Status Dates Kyle Gottlieb , DO Primary Care Provide r, Attending Provider Active Start: February 03, 2024 End: February 03, 2024 Goals (unrecognized section and content) Goals may be documented in a n alternate section INFORMATION SOURCE (unrecogn ized section and content) DATE CREATED AUTHOR 02/13/2023 [facility] DATE CREATED AUTHOR AUTHOR'S ORGANIZ ATION 05/24/2023 [facility] DATE CREATED AUTHOR AUTHOR'S ORGANIZ ATION 01/22/2024 [facility] FOR RECORDS PERTAINING TO PATIENTS WHO ARE [...] BE BASED ON THE PRIMARY CLINICAL RECORDS. [facility] [employer] provides no warranty or guarantee of the accuracy or completeness of information in this document.
--- NOTE | 2024-03-09 12:18 | XR_ITS ---
The [address] [address] Patient Name: ANGY BETTS MRN: [id number] date: 1940 Sex: F Assigned Patient Location: [facility] Current Patient Location: Accession/Order Number: [id number] Exam Date: 03/09/2024 12:10 Report Date: 03/11/2024 09:59 At the request of: JEFFREY OBRIEN Procedure: XR foot LT min 3V PROCEDURE: XR foot LT min 3V HISTORY: Left Foot Pain M79.672 ; acute lateral left foot pain since injury one and half weeks ago COMPARISON: None. FINDINGS: BONES:Oblique nondisplaced fractures to the diaphysis of the 5th proximal phalanx; no appreciable intra-articular extension. Separate ossification adjacent tip of the base of the 5th metatarsal which has corticated margins and favors an ununited remote fracture fragment. SOFT TISSUES:No visible soft tissue swelling. EFFUSION:None visible. OTHER: Negative. XR/XR foot LT min 3V IMPRESSION: 1. Acute, nondisplaced fracture of the 5th toe proximal phalanx. Electronically authenticated by: BUCKY CRAIG Date: 03/11/2024 09:59
== END 2024-03-09 12:01 | disposition home or self-care (01) ==
LOC: RAD 12:01
PROVIDERS: PCP Internal Medicine; Visit Provider Internal Medicine
DX: M79.672 Pain in left foot (principal); S92.515A Nondisplaced fracture of proximal phalanx of left lesser toe(s), initial encounter for closed fracture
CPT/HCPCS: 73630

== ENCOUNTER 2024-05-20 13:27 | Outpatient (OUT) | payer MEDICARE, OTHER, SELFPAY ==
--- NOTE | 2024-05-20 | CT_ITS ---
The [address] [address] Patient Name: ANGY BETTS MRN: [id number] date: 1940 Sex: F Assigned Patient Location: CT Current Patient Location: CT Accession/Order Number: [id number] Exam Date: 05/20/2024 13:45 Report Date: 05/20/2024 15:06 At the request of: JEFFREY OBRIEN Procedure: CT head/brain wo con EXAM: CT head/brain wo con HISTORY: CONCUSSION S06.0XAA, head injury one week ago. COMPARISON: CT brain 12/19/2018. TECHNIQUE: Axial CT scans through the head were obtained without IV contrast administration. Dose reduction techniques were achieved by using: automated exposure control and/or adjustment of mA and /or kV according to patient size and/or use of iterative reconstruction technique. FINDINGS: There is no evidence of acute intracranial hemorrhage or abnormal extra-axial fluid collection. No mass effect or midline shift is seen. There is no evidence of large acute territorial infarction. There is no hydrocephalus. There is age appropriate mild cerebral atrophy. To the limit of CT, the posterior fossa appears unremarkable. No definite acute fracture is identified. Soft tissues are unremarkable. The visualized orbits show no abnormality. The visualized paranasal sinuses show no air-fluid level. Mastoid air cells are clear. CT/CT head/brain wo con IMPRESSION: No CT evidence of acute intracranial abnormality Electronically authenticated by: DELIO UNLU Date: 05/20/2024 15:06
--- OUTSIDE RECORDS SUMMARY | 2024-05-20 13:47 | XMS_ITS | CCD ---
Author Organization [facility] Team Providers Care Medical Billing Coder Name Role Phone Doni Rivera Unavailable DO Kyle Gottlieb Primary Care Provider DO Kulwinder Dao Attending Provider [phone] DO Kulwinder Dao Referring Provider Kyle Gottlieb Unavailable BULL, DR [...] Unavailable DO Kyle Gottlieb Primary Care Provider [phone] DO Kulwinder Dao Attending Provider Kyle Gottlieb Primary Care Unavailable Kulwinder Dao Attending Unavailable Kulwinder Dao Admitting Unavailable Tonya Harrison Unavailable Kyle Gottlieb MD Primary Care Provider SHIVAM PONCE Attending Unavailable MEL HAYES Attending Unavailable SHIVAM PONCE Attending Unavailable SHIVAM PONCE Attending Unavailable SHIVAM PONCE Attending Unavailable KULWINDER DAO Attending Unavailable Allergies Allergy Classification Reported Allergen(s) Allergy Type Date of Onset Reaction(s) Facility (20 sources) Amoxicillin Drug Allergy 11-29-19 Unknown, [facility] (20 sources) Clarithromycin Drug Allergy 11-29-19 22 Unknown, [facility] (20 sources) Naproxen Drug Allergy 11-29-19 22 Unknown [facility] (20 sources) Sulfamethoxazole / Trimethoprim Drug Allergy 02-17-20 23 Unknown [facility] (20 sources) LEVOFLAXIN Propensity to adverse reactions 09-17-19 Unknown, Unknown Reaction [facility] (11 sources) Sulfamethoxazole / Trimethoprim; Translations: [Bactrim] Drug Allergy 11-19-19 14 Unknown [facility] Repository (14 sources) levoFLOXacin; Translations: [Levofloxacin] Drug Allergy 11-29-19 [facility] (14 sources) Sulfamethoxazole; Translations: [sulfamethoxazole] Drug Allergy 11-29-19 [facility] (14 sources) Trimethoprim; Translations: [trimethoprim] Drug Allergy 11-29-19 Unknown [facility] (1 source) Amoxicillin Drug Allergy [facility] (1 source) Clarithromycin Drug Allergy [facility] (1 source) Naproxen Drug Allergy 11-19-[address] [facility] (17 sources) Baclofen Drug Allergy Unknown [facility] (17 sources) levoFLOXacin Drug Allergy Unknown [facility] (17 sources) Penicillin Drug Allergy Unknown [facility] (17 sources) predniSONE Drug Allergy Unknown [facility] (20 sources) Biaxin XL *MACROLIDES* Propensity to adverse reactions 09-17-19 Unknown, Unknown Reaction [facility] (2 sources) Allergies Reconciled Propensity to adverse reactions Unknown [facility] (2 sources) patient allergy list reviewed by nurse or physicia Propensity to adverse reactions 09-10-19 Comment:Done [facility] Other (17 sources) corticosteroid and/or corticosteroid derivative (FN) Drug allergy Unknown [facility] (17 sources) Substance with sulfonamide structure and antibacterial mechanism of action (substance) Drug allergy Unknown [facility] (17 sources) Substance with penicillin structure and antibacterial mechanism of action (substance) Drug allergy Unknown [facility] (1 source) Amoxicillin Drug Allergy 11-29-19 [facility] (1 source) Clarithromycin Drug Allergy 11-29-19 [facility] (1 source) Naproxen Drug Allergy 11-29-19 [facility] (2 sources) Clarithromycin Allergy to substance 11-29-19 [facility] (8 sources) Corticosteroids Allergy to substance 09-17-19 Unknown Reaction [facility] (8 sources) Penicillins Allergy to substance 09-17-19 Unknown Reaction [facility] (8 sources) Sulfonamides (Antibiotic) Allergy to substance 09-17-19 Unknown Reaction [facility] Medications Current Medications Medication Drug Class(es) Dates Sig (Normalized) Sig (Original) azithromycin 250 mg oral tablet (16 sources) Macrolide Antimicrobial Start: 11-25-2023 End: 05-11-2024 Azithromycin Active 250 MG PO As Directed 6 May 11, 2024 12:00am Start: 09-17-2023 Azithromycin 2 50 MG as directed Orally daily for 5 days Sep, Active Start: 08-28-2023 Azithromycin 2 50 MG 2 tablet on the first day, then 1 tablet daily for 4 days Orally Once a day for 5 day(s) Aug, Active benazepril (20 sources) Angiotensin Converting Enzyme Inhibitor Start: 03-08-2024 take 1 tablet by mouth once daily Benazepril Active 0 .ROUTE .COMPLEX 90 March 08, 2024 8:40am TAKE 1 TABLET BY MOUTH ONCE DAILY Start: 11-28-2021 End: 03-08-2024 take 5 mg by mouth once daily Benazepril Discontinued 5 MG PO Daily November 28, 2021 12:00am March 08, 2024 8:40am Benazepril HCl A ctive bisoprolol fumarate 2.5 [...] the same time. 0 Active estrogens, conjugated (fpc) 0.625 mg/ml vaginal cream (20 sources) Estrogen [...] Start: 06-12-2010 take 1 capsule by mo uth once daily at mealtime fenofibrate micronized (Lofibra) [...] cream with perineal applicator Active 1 APPLIC KS 1 to 2 times per day October 21, 2023 1:00am Start: 11-28-2021 End: 11-25-2023 Hydrocortisone Acetate (Anuc ort-Hc) 25 mg suppository Discontinued 25 MG KS Daily at bedtime October 21, 2023 1:00am November 25, 2023 11:27am Proctozone-HC 2. 5 % APPLY TOPICALLY 2 TO 4 TIMES DAILY for 90 Active Proctosol HC 2.5 % 1 application to affected area Rectal Twice a day for 30 days Active Anucort-HC Activ e Hydrocortisone Acetate (Anucort-Hc) 25 mg suppository (7 sources) Start: 11-25-2023 Hydrocortisone Acetate (Anucort-Hc) 25 mg suppository Active 25 MG KS Daily at bedtime 30 08November 25, 2023 11:27am ipratropium bromide 0.042 mg/actuat [...] before bedtime. 15 mL 11 02/16/2023 Active metroNIDAZOLE 500 mg oral tablet (4 sources) Nitroimidazole Antimicrobial Start: 03-09-2024 take 500 mg by mouth every eight hours Metronidazole Active 500 MG PO Every 8 hours 27 03March 09, 2024 12:00am ondansetron 4 mg disintegrating oral tablet (4 sources) Serotonin-3 Receptor Antagonist Start: 03-09-2024 take 4 mg by mouth every six hours Ondansetron Active 4 MG PO Every 6 hours 24 01March 09, 2024 12:00am OXcarbazepine 300 mg oral tablet (20 [...] (Proctosol Hc) 2.5 % Cream With Applicator (10 sources) Start: 11-28-2021 End: 10-21-2023 Hydrocortisone (Proctosol Hc) 2.5 % Cream With Applicator Discontinued 1 EACH KS Daily November 28, 2021 12:00am October 21, 2023 12:30pm Start: 11-28-2021 Hydrocortisone (Proctosol Hc) 2.5 % Cream With Applicator Active 1 EACH KS Daily November 27, 2021 11:00pm Start: 11-28-2021 Hydrocortisone (Proctosol Hc) 2.5 % Cream With Applicator Active 1 EACH KS Daily November 28, 2021 12:00am [facility] 7-Oeg-Uhn-Fish Oil (Fish Oil) 1,200 (144-216) mg Capsule (10 sources) Start: 11-28-2021 End: 10-21-2023 take 2 capsules by mouth at bedtime [facility] 0-Sis-Lik-Fish Oil (Fish Oil) 1,200 (144-216) mg Capsule Discontinued 2 CAP PO Bedtime November 28, 2021 12:00am October 21, 2023 12:30pm Start: 11-28-2021 take 2 capsules by m outh at bedtime Hopkins 7-Fts-Xfr-Fish Oil (Fish Oil) 1,200 (144-216) mg Capsule Active 2 CAP PO Bedtime November 27, 2021 11:00pm Start: 11-28-2021 take 2 capsules by m outh at bedtime [facility] 7-Dru-Oaz-Fish Oil (Fish Oil) 1,200 (144-216) mg Capsule Active 2 CAP PO Bedtime November 28, 2021 12:00am Problems Active Problems Problem Classification Problem Date Documented Da te Episodic/Chronic Abdominal pain (20 sources) Abdominal pain; Translations: [Unspecified abdominal pain] Onset: 4 Resolved: 2 Episodic Acute and unspecified renal failure (1 source) Acute kidney failure, unspecified; Translations: [ACUTE KIDNEY FAILURE UNSPECIFIED] Onset: 3 Episodic Acute bronchitis (8 sources) Acute bronchitis; Translations: [Acute bronchitis due to other specified organisms] Onset: 4 05-11-2024 Episodic Anxiety disorders (2 sources) Generalized anxiety disorder; Translations: [Generalized anxiety disorder] Chronic Cardiac dysrhythmias (9 sources) Palpitations; Translations: [Bradycardia, unspecified] Episodic Chronic [...] [Pernicious anemia] Episodic Deficiency and other anemia (7 sources) Anemia; Translations: [Anemia, unspecified] 11-23-2023 Episodic Disorders of lipid metabolism (20 sources) Hypertriglyceridemia; Translations: [Pure hyperglyceridemia] Onset: 8 Chronic Diverticulosis and diverticulitis (20 sources) Diverticular disease of colon; Translations: [Diverticulosis of intestine, part unspecified, without perforation or abscess without bleeding] 03-09-2024 Chronic Esophageal disorders (20 sources) Gastroesophageal reflux [...] [VIRAL INTESTINAL INFECTION UNSPEC] Onset: 3 Episodic Intracranial injury (1 source) Concussion injury of body structure; Translations: [Concussion] 05-17-2024 Episodic Malaise and fatigue (20 sources) Malaise; [...] unspecified] Chronic Other aftercare (1 source) Other group home (current) drug therapy; Translations: [OTH SENIOR CARE CURRENT DRUG THERAPY] Onset: 3 Episodic Other aftercare (2 sources) Long-term current use of drug therapy; Translations: [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] Episodic Other and unspecified [...] tissue disease (2 sources) Fibromyalgia Episodic Other connective tissue disease (4 sources) Foot pain; Translations: [Pain in left foot] 03-09-2024 Episodic Other connective tissue disease (3 sources) Pain in left foot; Translations: [Pain in limb] 03-09-2024 Episodic Other diseases of kidney and ureters [...] Basophils (Bld) [#/Vol] 0.0 10 3/uL 0.0-0.1 [facility] Basophils/100 WBC Auto (Bld) on 11-25-2023 Basophils/100 WBC (Bld) 0.4 % 0.2-2.0 [facility] Eosinophils/100 WBC Auto (Bl d)on 11-25-2023 Eosinophils/100 WBC (Bld) 2.9 % 0.9-7.0 [facility] Erythrocyte distribution wid th Auto (RBC) [Ratio]on 11-25-2023 Erythrocyte distribution width (RBC) [Ratio] 13.2 % 11.0-15.0 [facility] Hematocrit Auto (Bld) [Volum e fraction]on 11-25-2023 Hematocrit (Bld) [Volume fraction] 36.7 % 36.0-48.0 [facility] Hemoglobin [Mass/volume] in Bloodon 11-25-2023 Hemoglobin (Bld) [Mass/Vol] 11.5 g/dL 12.0-16.0 [facility] Laboratory - Chemistry and C hemistry - challengeon 11-25-2023 Ferritin [Mass/Vol] 27.0 ng/mL 8.0-252.0 [facility] - Hematology and Cell countson 11-25-2023 Immature granulocytes/100 WBC (Bld) 0.4 % 0.0-0.5 [facility] Leukocytes [#/volume] correc bill for nucleated erythrocytes in Blood by Automated counon 11-25-2023 WBC corrected for nucl RBC Auto (Bld) [#/Vol] 4.8 10 3/uL 4.0-11.0 [facility] Lymphocytes Auto (Bld) [#/Vo l]on 11-25-2023 Lymphocytes (Bld) [#/Vol] 1.3 10 3/uL 1.2-3.8 [facility] Lymphocytes/100 WBC Auto (Bl d)on 11-25-2023 Lymphocytes/100 WBC (Bld) 27.7 % 20.5-60.0 [facility] MCH Auto (RBC) [Entitic mass ]on 11-25-2023 MCH (RBC) [Entitic mass] 29.9 pg 26.7-34.0 [facility] MCHC Auto (RBC) [Mass/Vol]on 11-25-2023 MCHC (RBC) [Mass/Vol] 31.3 g/dL 29.9-35.2 [facility] MCV Auto (RBC) [Entitic vol] on 11-25-2023 MCV (RBC) [Entitic vol] 95.3 fL 81.0-99.0 [facility] Monocytes Auto (Bld) [#/Vol] on 11-25-2023 Monocytes (Bld) [#/Vol] 0.4 10 3/uL 0.3-0.8 [facility] Monocytes/100 WBC Auto (Bld) on 11-25-2023 Monocytes/100 WBC (Bld) 7.8 % 1.7-12.0 [facility] Neutrophils Auto (Bld) [#/Vo l]on 11-25-2023 Neutrophils (Bld) [#/Vol] 2.9 10 3/uL 1.4-6.5 [facility] Neutrophils/100 WBC Auto (Bl d)on 11-25-2023 Neutrophils/100 WBC (Bld) 60.8 % 43.0-75.0 [facility] No Panel Informationon 11-24 Eosinophils # (Auto) 0.1 10 3/uL 0.0-0.7 [facility] Folate 24.20 ng/mL 8.60-58.90 [facility] Immature Granulocyte # (Auto) 0.02 10 3/uL 0.00-0.03 [facility] Vitamin B12 Level >6000.0 pg/mL 193.0-986.0 [facility] Platelet mean volume Auto (B ld) [Entitic vol]on 11-25-2023 Platelet mean volume (Bld) [Entitic vol] 10.5 fL 9.5-13.5 [facility] Platelets Auto (Bld) [#/Vol] on 11-25-2023 Platelets (Bld) [#/Vol] 187 10 3/uL 150-450 [facility] RBC Auto (Bld) [#/Vol]on RBC (Bld) [#/Vol] 3.85 10 6/uL 4.20-5.40 [facility] Quick Fluon 08-28-2023 FLUAV Ab CF (S) [Titer] Negative Crew Other FLUBV Ab CF (S) [Titer] Negative Crew Other MM screening mammo BI w/CADo n 05-13-2023 MM screening mammo BI w/CAD [facility] [place] [place] [address] Mammography Report Signed Patient: Gina Pierre MR#: [id number] : 1940 Acct:[id number] Age/Sex: 82 / F ADM Date: 05/13/23 Loc: IN Room: Type: [facility] Attending Dr: Kulwinder Dao DO Copies to: DO Kulwinder Franz DO Ordering Provider: Kulwinder Dao DO Date of Service: 05/13/23 MM/MM screening [...] Gina Garrett M.D.05/13/2023 3:35 PM Dictation Location: [facility] Transcribed By: [facility] 05/13/23 1535 Dictated By: Gina Garrett MD 05/13/23 1525 Signed By: 05/13/23 1535 [facility] CBC AUTO DIFFon 02-03-2023 BASO # 0.0 103/ul Normal 0.0-0.1 [facility] Comment on above: Performed By: #### L NANCY MONDRAGON LIPA, AMY #### [facility] [address] [address] [address] Julia Velasquez Basophils/100 WBC (Bld) 0.4 % Normal 0.2-2.0 [facility] Comment on above: Performed By: #### L IVER, BMP, LIPA, EDSON #### [facility] [address] [place] [address] Dr. Julia Velasquez EO # 0.3 103/ul Normal 0.0-0.7 [facility] Comment on above: Performed By: #### L IVER, BMP, LIPA, EDSON #### [facility] [address] [place] [address] Dr. Julia Velasquez Eosinophils/100 WBC (Bld) 5.5 % Normal 0.9-7.0 [facility] Comment on above: Performed By: #### L IVER, BMP, LIPA, EDSON #### [facility] [address] [place] [address] Dr. Julia Velasquez Erythrocyte distribution width (RBC) [Ratio] 14.1 % Normal 11.0-15.0 [facility] Comment on above: Performed By: #### L IVER, BMP, LIPA, EDSON #### [facility] [address] [place] [address] Dr. Julia Velasquez Hematocrit (Bld) [Volume fraction] 36.4 % Normal 36.0-48.0 [facility] Comment on above: Performed By: #### L IVER, BMP, LIPA, EDSON #### [facility] [address] [place] [address] Dr. Julia Velasquez Hemoglobin (Bld) [Mass/Vol] 11.4 g/dL Critically low 12.0-16.[address] [facility] Comment on above: Performed By: #### L IVER, BMP, LIPA, EDSON #### [facility] [address] [place] [address] Dr. Julia Velasquez IG # 0.02 10e3/ul Normal 0.00-0.[address] [facility] Comment on above: Performed By: #### L IVER, BMP, LIPA, EDSON #### [facility] [address] [place] [address] Dr. Julia Velasquez IG % 0.4 % Normal 0.0-0.[address] [facility] Comment on above: Performed By: #### L IVER, BMP, LIPA, EDSON #### [facility] [address] [place] [address] Dr. Julia Velasquez LYMPH # 1.4 103/ul Normal 1.2-3.8 [facility] Comment on above: Performed By: #### L IVER, BMP, LIPA, EDSON #### [facility] [address] [place] [address] Dr. Julia Velasquez Lymphocytes/100 WBC (Bld) 28.4 % Normal 20.5-60.0 [facility] Comment on above: Performed By: #### L IVER, BMP, LIPA, EDSON #### [facility] [address] [place] [address] Dr. Julia Velasquez MANUAL DIFF REQ NO Normal [facility] Comment on above: Performed By: #### L IVER, BMP, LIPA, EDSON #### [facility] [address] [place] [address] Dr. Julia Velasquez MCH (RBC) [Entitic mass] 30.0 pg Normal 26.7-34.0 [facility] Comment on above: Performed By: #### L IVER, BMP, LIPA, EDSON #### [facility] [address] [place] [address] Dr. Julia Velasquez MCHC (RBC) [Mass/Vol] 31.3 g/dL Normal 29.9-35.2 [facility] Comment on above: Performed By: #### L IVER, BMP, LIPA, EDSON #### [facility] [address] [place] [address] Dr. Julia Velasquez MCV (RBC) [Entitic vol] 95.8 fL Normal 81.0-99.0 [facility] Comment on above: Performed By: #### L IVER, BMP, LIPA, EDSON #### [facility] [address] [place] [address] Dr. Julia Velasquez MONO # 0.4 103/ul Normal 0.3-0.8 [facility] Comment on above: Performed By: #### L IVER, BMP, LIPA, EDSON #### [facility] [address] [place] [address] Dr. Julia Velasquez Monocytes/100 WBC (Bld) 7.8 % Normal 1.7-12.0 [facility] Comment on above: Performed By: #### L IVER, BMP, LIPA, EDSON #### [facility] [address] [place] [address] Dr. Julia Velasquez NEUT # 2.8 103/ul Normal 1.4-6.5 [facility] Comment on above: Performed By: #### L IVER, BMP, LIPA, EDSON #### [facility] [address] [place] [address] Dr. Julia Velasquez Neutrophils/100 WBC (Bld) 57.5 % Normal 43.0-75.0 [facility] Comment on above: Performed By: #### L IVER, BMP, LIPA, EDSON #### [facility] [address] [place] [address] Dr. Julia Velasquez Platelet mean volume (Bld) [Entitic vol] 10.6 fL Normal 9.5-13.5 [facility] Comment on above: Performed By: #### L IVER, BMP, LIPA, EDSON #### [facility] [address] [place] [address] Dr. Julia Velasquez PLT 212 103/ul Normal 150-[address] [facility] Comment on above: Performed By: #### L IVER, BMP, LIPA, EDSON #### [facility] [address] [place] [address] Dr. Julia Velasquez RBC 3.80 106/ul Critically low 4.20-5.40 [facility] Comment on above: Performed By: #### L IVER, BMP, LIPA, EDSON #### [facility] [address] [place] [address] Dr. Julia Velasquez WBC 4.9 103/ul Normal 4.0-11.0 [facility] Comment on above: Performed By: #### L IVER, BMP, LIPA, EDSON #### [facility] [address] [place] [address] Dr. Julia Velasquez FERRITINon 02-03-2023 Ferritin [Mass/Vol] 63.0 ng/mL Normal 8.0-252.0 [facility] Comment on above: Performed By: #### L IVERNANCY, LIPA, EDSON #### [facility] [address] [place] [address] Dr. Julia Velasquez IRON AND TIBCon 02-03-2023 % SATURATION 25.5 % Normal [facility] Comment on above: Performed By: #### L IVER, BMP, LIPA, EDSON #### [facility] [address] [place] [address] Dr. Julia Velasquez Iron [Mass/Vol] 100.0 ug/dL Normal 50.0-170.0 [facility] Comment on above: Performed By: #### L IVER, BMP, LIPA, EDSON #### [facility] [address] [place] [address] Dr. Julia Velasquez TIBC DIRECT 392.0 ug/dL Normal 250.0-450.0 [facility] Comment on above: Performed By: #### L IVER, NANCY, LIPA, EDSON #### [facility] [address] [place] [address] Dr. Julia Velasquez PROF CHEM 8 (BAS METB)on Anion gap [Moles/Vol] 13.0 mmol/L Normal [facility] Comment on above: Performed By: #### B MP #### [facility] [address] [place] [address] Dr. Julia Velasquez Calcium [Mass/Vol] 8.9 mg/dL Normal 8.5-10.1 [facility] Comment on above: Performed By: #### B MP #### [facility] [address] [place] [address] Dr. Julia Velasquez Chloride [Moles/Vol] 106 mmol/L Normal 98-107 [facility] Comment on above: Performed By: #### B MP #### [facility] [address] [place] [address] Dr. Julia Velasquez CO2 [Moles/Vol] 27.7 mmol/L Normal 21.0-32.0 [facility] Comment on above: Performed By: #### B MP #### [facility] [address] [address] [address] Julia Velasquez Creatinine [Mass/Vol] 1.24 mg/dL Critically high 0.55-1.02 [facility] Comment on above: Performed By: #### B MP #### [facility] [address] [address] [address] Julia Velasquez EGFR-AF SIERRA LEONEAN 50 mL/min/1.73m2 Critically low >=60 [facility] Comment on above: Performed By: #### B MP #### [facility] [address] [address] [address] Julia Velasquez EGFR-NON AF SIERRA LEONEAN 42 mL/min/1.73m2 Critically low >=60 [facility] Comment on above: Performed By: #### B MP #### [facility] [address] [address] [address] Julia Velasquez Glucose [Mass/Vol] 99 mg/dL Normal 74-106 [facility] Comment on above: Performed By: #### B MP #### [facility] [address] [address] [address] Julia Velasquez Potassium [Moles/Vol] 3.7 mmol/L Normal 3.5-5.1 [facility] Comment on above: Performed By: #### B MP #### [facility] [address] [address] [address] Julia Velasquez Sodium [Moles/Vol] 143 mmol/L Normal 136-145 [facility] Comment on above: Performed By: #### B MP #### [facility] [address] [address] [address] Julia Velasquez Urea nitrogen [Mass/Vol] 12.0 mg/dL Normal 7.0-18.0 [facility] Comment on above: Performed By: #### B MP #### [facility] [address] [address] [address] Julia Velasquez Urea nitrogen/Creatinine [Mass ratio] 9.7 mg/mg Normal [facility] Comment on above: Performed By: #### B MP #### [facility] [address] [place] [address] Dr. Julia Velasquez UA RANDOM W/MICROSCOPICon BACTERIA TRACE Abnormal NONE SEEN [facility] Comment on above: Performed By: #### L IVER, BMP, LIPA, EDSON #### [facility] [address] [place] [address] Dr. Julia Velasquez Bilirubin Ql (U) Negative Normal NEGATIVE [facility] Comment on above: Performed By: #### L IVER, BMP, LIPA, EDSON #### [facility] [address] [place] [address] Dr. Julia Velasquez CAST NONE SEEN Normal NONE SEEN [facility] Comment on above: Performed By: #### L IVER, BMP, LIPA, EDSON #### [facility] [address] [place] [address] Dr. Julia Velasquez Clarity (U) CLEAR Normal CLEAR [facility] Comment on above: Performed By: #### L IVER, BMP, LIPA, EDSON #### [facility] [address] [place] [address] Dr. Julia Velasquez Color (U) LT. YELLOW Normal YELLOW [facility] Comment on above: Performed By: #### L IVER, BMP, LIPA, EDSON #### [facility] [address] [place] [address] Dr. Julia Velasquez Crystals LM Nom (Urine sed) NONE SEEN Normal NONE SEEN [facility] Comment on above: Performed By: #### L IVER, BMP, LIPA, EDSON #### [facility] [address] [place] [address] Dr. Julia Velasquez Epithelial cells LM Ql (Urine sed) MODERATE Abnormal NONE SEEN /RARE [facility] Comment on above: Performed By: #### L IVER, BMP, LIPA, EDSON #### [facility] [address] [place] [address] Dr. Julia Velasquez Glucose Ql (U) Negative Normal NEGATIVE [facility] Comment on above: Performed By: #### L IVER, BMP, LIPA, EDSON #### [facility] [address] [place] [address] Dr. Julia Velasquez Hemoglobin Ql (U) Negative Normal NEGATIVE [facility] Comment on above: Performed By: #### L IVER, BMP, LIPA, EDSON #### [facility] [address] [place] [address] Dr. Julia Velasquez Ketones Ql (U) Negative Normal NEGATIVE [facility] Comment on above: Performed By: #### L IVER, BMP, LIPA, EDSON #### [facility] [address] [place] [address] Dr. Julia Velasquez LEUKOCYTES Negative Normal NEGATIVE [facility] Comment on above: Performed By: #### L IVER, BMP, LIPA, EDSON #### [facility] [address] [place] [address] Dr. Julia Velasquez MUCOUS NONE SEEN Normal NONE SEEN [facility] Comment on above: Performed By: #### L IVER, BMP, LIPA, EDSON #### [facility] [address] [place] [address] Dr. Julia Velasquez Nitrite Ql (U) Negative Normal NEGATIVE [facility] Comment on above: Performed By: #### L IVER, BMP, LIPA, EDSON #### [facility] [address] [place] [address] Dr. Julia Velasquez pH (U) 7.5 [pH] Normal 5-9 [facility] Comment on above: Performed By: #### L IVER, BMP, LIPA, EDSON #### [facility] [address] [place] [address] Dr. Julia Velasquez RBC 0-2 Normal 0-2 [facility] Comment on above: Performed By: #### L IVER, BMP, LIPA, EDSON #### [facility] [address] [place] [address] Dr. Julia Velasquez SPEC GRAVITY 1.010 Normal 1.005-<=1.025 [facility] Comment on above: Performed By: #### L IVER, BMP, LIPA, EDSON #### [facility] [address] [place] [address] Dr. Julia Velasquez UA PROTEIN Negative Normal NEGATIVE/ TRACE [facility] Comment on above: Performed By: #### L IVERNANCY, LIPA, EDSON #### [facility] [address] [address] [address] Julia Velasquez Urobilinogen Qn (U) 2.0 {Avery'U}/dL Abnormal 0.2 - 1. 0 [facility] Comment on above: Performed By: #### L IVER BMP, LIPA, EDSON #### [facility] [address] [place] [address] Dr. Julia Velasquez WBC NONE SEEN Normal NONE SEEN [facility] Comment on above: Performed By: #### L IVERNANCY, LIPA, EDSON #### [facility] [address] [place] [address] Dr. Julia Velasquez VIT B12 AND FOLATEon 023 Cobalamin (Vitamin B12) [Mass/Vol] 199.0 pg/mL Normal 193.0-986.0 [facility] Comment on above: Performed By: #### L IVERNANCY, LIPA, EDSON #### [facility] [address] [place] [address] Dr. Julia Velasquez FOLATE 27.10 ng/mL Normal 8.60-58.90 [facility] Comment on above: Performed By: #### L IVERNANCY, LIPA, EDSON #### [facility] [address] [place] [address] Dr. Julia Velasquez XR CHEST 2 Von [...] NANDO CARLSON Date: 2023-02-03 14:[address] [facility] CBC AUTO DIFFon 01-07-2023 BASO # 0.0 103/ul Normal 0.0-0.[address] [facility] Comment on above: Performed By: #### L IVER, BMP, LIPA, EDSON #### [facility] [address] [place] [address] Dr. Julia Velasquez Basophils/100 WBC (Bld) 0.6 % Normal 0.2-2.[address] [facility] Comment on above: Performed By: #### L IVER, BMP, LIPA, EDSON #### [facility] [address] [place] [address] Dr. Julia Velasquez EO # 0.1 103/ul Normal 0.0-0.[address] [facility] Comment on above: Performed By: #### L IVER, BMP, LIPA, EDSON #### [facility] [address] [place] [address] Dr. Julia Velasquez Eosinophils/100 WBC (Bld) 3.3 % Normal 0.9-7.[address] [facility] Comment on above: Performed By: #### L IVER, BMP, LIPA, EDSON #### [facility] [address] [place] [address] Dr. Julia Velasquez Erythrocyte distribution width (RBC) [Ratio] 16.1 % Critically high 11.0-15.[address] [facility] Comment on above: Performed By: #### L IVER, BMP, LIPA, EDSON #### [facility] [address] [place] [address] Dr. Julia Velasquez Hematocrit (Bld) [Volume fraction] 34.9 % Critically low 36.0-48.[address] [facility] Comment on above: Performed By: #### L IVER, BMP, LIPA, EDSON #### [facility] [address] [place] [address] Dr. Julia Velasquez Hemoglobin (Bld) [Mass/Vol] 11.1 g/dL Critically low 12.0-16.[address] [facility] Comment on above: Performed By: #### L IVER, BMP, LIPA, EDSON #### [facility] [address] [place] [address] Dr. Julia Velasquez IG # 0.05 10e3/ul Critically high 0.00-0.03 [facility] Comment on above: Performed By: #### L IVER, BMP, LIPA, EDSON #### [facility] [address] [place] [address] Dr. Julia Velasquez IG % 1.4 % Critically high 0.0-0.5 [facility] Comment on above: Performed By: #### L IVER, BMP, LIPA, EDSON #### [facility] [address] [place] [address] Dr. Julia Velasquez LYMPH # 1.1 103/ul Critically low 1.2-3.8 [facility] Comment on above: Performed By: #### L IVER, BMP, LIPA, EDSON #### [facility] [address] [place] [address] Dr. Julia Velasquez Lymphocytes/100 WBC (Bld) 31.6 % Normal 20.5-60.0 [facility] Comment on above: Performed By: #### L IVER, BMP, LIPA, EDSON #### [facility] [address] [place] [address] Dr. Julia Velasquez MANUAL DIFF REQ NO Normal [facility] Comment on above: Performed By: #### L IVER, BMP, LIPA, EDSON #### [facility] [address] [place] [address] Dr. Julia Velasquez MCH (RBC) [Entitic mass] 30.4 pg Normal 26.7-34.[address] [facility] Comment on above: Performed By: #### L IVER, BMP, LIPA, EDSON #### [facility] [address] [place] [address] Dr. Julia Velasquez MCHC (RBC) [Mass/Vol] 31.8 g/dL Normal 29.9-35.2 [facility] Comment on above: Performed By: #### L IVER, BMP, LIPA, EDSON #### [facility] [address] [place] [address] Dr. Julia Velasquez MCV (RBC) [Entitic vol] 95.6 fL Normal 81.0-99.0 [facility] Comment on above: Performed By: #### L IVER, BMP, LIPA, EDSON #### [facility] [address] [place] [address] Dr. Julia Velasquez MONO # 0.2 103/ul Critically low 0.3-0.8 [facility] Comment on above: Performed By: #### L IVER, BMP, LIPA, EDSON #### [facility] [address] [place] [address] Dr. Julia Velasquez Monocytes/100 WBC (Bld) 6.1 % Normal 1.7-12.0 [facility] Comment on above: Performed By: #### L IVER, BMP, LIPA, EDSON #### [facility] [address] [place] [address] Dr. Julia Velasquez NEUT # 2.1 103/ul Normal 1.4-6.[address] [facility] Comment on above: Performed By: #### L IVER, BMP, LIPA, EDSON #### [facility] [address] [place] [address] Dr. Julia Velasquez Neutrophils/100 WBC (Bld) 57.0 % Normal 43.0-75.[address] [facility] Comment on above: Performed By: #### L IVER, BMP, LIPA, EDSON #### [facility] [address] [place] [address] Dr. Julia Velasquez Platelet mean volume (Bld) [Entitic vol] 10.4 fL Normal 9.5-13.[address] [facility] Comment on above: Performed By: #### L IVER, BMP, LIPA, EDSON #### [facility] [address] [place] [address] Dr. Julia Velasquez PLT 167 103/ul Normal 150-[address] [facility] Comment on above: Performed By: #### L IVER, BMP, LIPA, EDSON #### [facility] [address] [place] [address] Dr. Julia Velasquez RBC 3.65 106/ul Critically low 4.20-5.40 [facility] Comment on above: Performed By: #### L IVER, BMP, LIPA, EDSON #### [facility] [address] [place] [address] Dr. Julia Velasquez WBC 3.6 103/ul Critically low 4.0-11.0 [facility] Comment on above: Performed By: #### L IVER, BMP, LIPA, EDSON #### [facility] [address] [place] [address] Dr. Julia Velasquez FERRITINon 01-07-2023 Ferritin [Mass/Vol] 148.0 ng/mL Normal 8.0-252.0 [facility] Comment on above: Performed By: #### L IVER, BMP, LIPA, EDSON #### [facility] [address] [place] [address] Dr. Julia Velasquez IRON AND TIBCon 01-07-2023 % SATURATION 27.1 % Normal [facility] Comment on above: Performed By: #### L IVER, BMP, LIPA, EDSON #### [facility] [address] [place] [address] Dr. Julia Velasquez Iron [Mass/Vol] 96.0 ug/dL Normal 50.0-170.0 [facility] Comment on above: Performed By: #### L IVER, BMP, LIPA, EDSON #### [facility] [address] [place] [address] Dr. Julia Velasquez TIBC DIRECT 354.0 ug/dL Normal 250.0-450.0 [facility] Comment on above: Performed By: #### L IVER, BMP, LIPA, EDSON #### [facility] [address] [place] [address] Dr. Julia Velasquez PROF CHEM 8 (BAS METB)on Anion gap [Moles/Vol] 11.8 mmol/L Normal [facility] Comment on above: Performed By: #### L IVER, BMP, LIPA, EDSON #### [facility] [address] [place] [address] Dr. Julia Velasquez Calcium [Mass/Vol] 8.3 mg/dL Critically low 8.5-10.1 [facility] Comment on above: Performed By: #### L IVER, BMP, LIPA, EDSON #### [facility] [address] [address] [address] Julia Velasquez Chloride [Moles/Vol] 108 mmol/L Critically high 98-107 [facility] Comment on above: Performed By: #### L IVER, BMP, LIPA, EDSON #### [facility] [address] [place] [address] Dr. Julia Velasquez CO2 [Moles/Vol] 27.8 mmol/L Normal 21.0-32.0 [facility] Comment on above: Performed By: #### L IVER, BMP, LIPA, EDSON #### [facility] [address] [place] [address] Dr. Julia Velasquez Creatinine [Mass/Vol] 1.00 mg/dL Normal 0.55-1.02 [facility] Comment on above: Performed By: #### L IVER, BMP, LIPA, EDSNO #### [facility] [address] [place] [address] Dr. Julia Velasquez EGFR-AF SIERRA LEONEAN >60 Normal >=60 [facility] Comment on above: Performed By: #### L IVER, BMP, LIPA, EDSON #### [facility] [address] [place] [address] Dr. Julia Velasquez EGFR-NON AF SIERRA LEONEAN 53 mL/min/1.73m2 Critically low >=60 [facility] Comment on above: Performed By: #### L IVER, BMP, LIPA, EDSON #### [facility] [address] [place] [address] Dr. Julia Velasquez Glucose [Mass/Vol] 92 mg/dL Normal 74-106 [facility] Comment on above: Performed By: #### L IVER, BMP, LIPA, EDSON #### [facility] [address] [address] [address] Julia Velasquez Potassium [Moles/Vol] 3.6 mmol/L Normal 3.5-5.1 [facility] Comment on above: Performed By: #### L IVER, BMP, LIPA, EDSON #### [facility] [address] [place] [address] Dr. Julia Velasquez Sodium [Moles/Vol] 144 mmol/L Normal 136-145 [facility] Comment on above: Performed By: #### L IVER, BMP, LIPA, EDSON #### [facility] [address] [place] [address] Dr. Julia Velasquez Urea nitrogen [Mass/Vol] 8.0 mg/dL Normal 7.0-18.0 [facility] Comment on above: Performed By: #### L IVER, BMP, LIPA, EDSON #### [facility] [address] [place] [address] Dr. Julia Velasquez Urea nitrogen/Creatinine [Mass ratio] 8.0 mg/mg Normal [facility] Comment on above: Performed By: #### L IVER, BMP, LIPA, EDSON #### [facility] [address] [place] [address] Dr. Julia Velasquez RETICULOCYTEon 01-07-2023 RETIC 4.40 % Critically high 0.60-3.10 [facility] Comment on above: Performed By: #### L IVER, BMP, LIPA, EDSON #### [facility] [address] [place] [address] Dr. Julia Velasquez VIT B12 AND FOLATEon 023 Cobalamin (Vitamin B12) [Mass/Vol] 322.0 pg/mL Normal 193.0-986.0 [facility] Comment on above: Performed By: #### L IVER, BMP, LIPA, EDSON #### [facility] [address] [place] [address] Dr. Julia Velasquez FOLATE 6.10 ng/mL Critically low 8.60-58.90 [facility] Comment on above: Performed By: #### L IVER, BMP, LIPA, EDSON #### [facility] [address] [address] [address] Julia Velasquez XR CHEST 2 Von [...] NANDO CARLSON Date: 2023-01-07 11:[address] [facility] CBC W MANUAL DIFFon 12-15-19 23 ATYPICAL LYMPH # Normal [facility] Comment on above: Performed By: #### L IVER, BMP, LIPA, EDSON #### [facility] [address] [place] [address] Dr. Julia Velasquez ATYPICAL LYMPH % Normal [facility] Comment on above: Performed By: #### L IVER, BMP, LIPA, EDSON #### [facility] [address] [place] [address] Dr. Julia Velasquez BAND # 1.0 103/ul Critically high 0.0-0.3 [facility] Comment on above: Performed By: #### L IVER, BMP, LIPA, EDSON #### [facility] [address] [place] [address] Dr. Julia Velasquez BAND % 9 % Critically high 0-5 [facility] Comment on above: Performed By: #### L IVER, BMP, LIPA, EDSON #### [facility] [address] [place] [address] Dr. Julia Velasquez BASOM # 0.00 103/ul Normal 0.00-0.[address] [facility] Comment on above: Performed By: #### L IVER, BMP, LIPA, EDSON #### [facility] [address] [place] [address] Dr. Julia Velasquez BASOM % 0.0 % Critically low 0.2-2.0 [facility] Comment on above: Performed By: #### L IVER, BMP, LIPA, EDSON #### [facility] [address] [place] [address] Dr. Julia Velasquez BLAST # Normal [facility] Comment on above: Performed By: #### L IVER, BMP, LIPA, EDSON #### [facility] [address] [address] [address] Julia Velasquez BLAST % Normal [facility] Comment on above: Performed By: #### L IVER, BMP, LIPA, EDSON #### [facility] [address] [place] [address] Dr. Julia Velasquez CORRECTED WBC Normal 4.0-11.0 [facility] Comment on above: Performed By: #### L IVER, BMP, LIPA, EDSON #### [facility] [address] [place] [address] Dr. Julia Velasquez EOS # 0.22 103/ul Normal 0.00-0.70 [facility] Comment on above: Performed By: #### L IVER, BMP, LIPA, EDSON #### [facility] [address] [place] [address] Dr. Julia Velasquez EOS% 2.0 % Normal 0.9-7.0 [facility] Comment on above: Performed By: #### L IVER, BMP, LIPA, EDSON #### [facility] [address] [place] [address] Dr. Julia Velasquez HCT 27.3 % Critically low 36.0-48.0 [facility] Comment on above: Performed By: #### L IVER, BMP, LIPA, EDSON #### [facility] [address] [place] [address] Dr. Julia Velasquez HGB 8.5 g/dl Critically low 12.0-16.0 [facility] Comment on above: Performed By: #### L IVER, BMP, LIPA, EDSON #### [facility] [address] [address] [address] Julia Velasquez HYPOCHROMASIA SLIGHT Normal [facility] Comment on above: Performed By: #### L IVER, BMP, LIPA, EDSON #### [facility] [address] [address] [address] Julia Velasquez LYMPHM # 0.99 103/ul Critically low 1.20-3.80 [facility] Comment on above: Performed By: #### L IVER, BMP, LIPA, EDSON #### [facility] [address] [place] [address] Dr. Julia Velasquez LYMPHM% 9.0 % Critically low 20.5-60.0 [facility] Comment on above: Performed By: #### L IVER, BMP, LIPA, EDSON #### [facility] [address] [place] [address] Dr. Julia Velasquez MCH 28.3 pg Normal 26.7-34.0 [facility] Comment on above: Performed By: #### L IVER, BMP, LIPA, EDSON #### [facility] [address] [place] [address] Dr. Julia Velasquez MCHC 31.1 g/dl Normal 29.9-35.2 [facility] Comment on above: Performed By: #### L IVER, BMP, LIPA, EDSON #### [facility] [address] [place] [address] Dr. Julia Velasquez MCV 91.0 fL Normal 81.0-99.0 [facility] Comment on above: Performed By: #### L IVER, BMP, LIPA, EDSON #### [facility] [address] [place] [address] Dr. Julia Velasquez METAMYELOCYTE # Normal [facility] Comment on above: Performed By: #### L IVER, BMP, LIPA, EDSON #### [facility] [address] [place] [address] Dr. Julia Velasquez METAMYELOCYTE % Normal [facility] Comment on above: Performed By: #### L IVER, BMP, LIPA, EDSON #### [facility] [address] [address] [address] Julia Velasquez MONOM# 0.22 103/ul Critically low 0.30-0.80 [facility] Comment on above: Performed By: #### L IVER, BMP, LIPA, EDSON #### [facility] [address] [place] [address] Dr. Julia Velasquez MONOM% 2.0 % Normal 1.7-12.0 [facility] Comment on above: Performed By: #### L IVER, BMP, LIPA, EDSON #### [facility] [address] [place] [address] Dr. Julia Velasquez MPV 10.9 fL Normal 9.5-13.5 [facility] Comment on above: Performed By: #### L IVER, BMP, LIPA, EDSON #### [facility] [address] [place] [address] Dr. Julia Velasquez MYELOCYTE # Normal [facility] Comment on above: Performed By: #### L IVER, BMP, LIPA, EDSON #### [facility] [address] [place] [address] Dr. Julia Velasquez MYELOCYTE % Normal [facility] Comment on above: Performed By: #### L IVER, BMP, LIPA, EDSON #### [facility] [address] [place] [address] Dr. Julia Velasquez NRBC Normal [facility] Comment on above: Performed By: #### L IVER, BMP, LIPA, EDSON #### [facility] [address] [place] [address] Dr. Julia Velasquez PLT 240 103/ul Normal 150-450 [facility] Comment on above: Performed By: #### L IVER, BMP, LIPA, EDSON #### [facility] [address] [place] [address] Dr. Julia Velasquez RBC 3.00 106/ul Critically low 4.20-5.40 [facility] Comment on above: Performed By: #### L IVER, BMP, LIPA, EDSON #### [facility] [address] [place] [address] Dr. Julia Velasquez RDW 17.2 % Critically high 11.0-15.0 [facility] Comment on above: Performed By: #### L IVER, BMP, LIPA, EDSON #### [facility] [address] [place] [address] Dr. Julia Velasquez SEG # 8.58 103/ul Critically high 1.40-6.50 [facility] Comment on above: Performed By: #### L IVER, BMP, LIPA, EDSON #### [facility] [address] [place] [address] Dr. Julia Velasquez SEG % 78.0 % Critically high 43.0-75.0 [facility] Comment on above: Performed By: #### L IVER, BMP, LIPA, EDSON #### [facility] [address] [place] [address] Dr. Julia Velasquez WBC 11.0 103/ul Normal 4.0-11.0 [facility] Comment on above: Performed By: #### L IVER, BMP, LIPA, EDSON #### [facility] [address] [place] [address] Dr. Julia Velasquez PROF 14(COMP METB)on 023 Albumin [Mass/Vol] 1.3 g/dL Critically low 3.4-5.0 [facility] Comment on above: Performed By: #### C MP #### [facility] [address] [place] [address] Dr. Julia Velasquez Albumin/Globulin [Mass ratio] 0.3 {ratio} Normal [facility] Comment on above: Performed By: #### C MP #### [facility] [address] [place] [address] Dr. Julia Velasquez ALP [Catalytic activity/Vol] 93 U/L Normal 46-116 [facility] Comment on above: Performed By: #### C MP #### [facility] [address] [place] [address] Dr. Julia Velasquez ALT [Catalytic activity/Vol] 30 U/L Normal 14-59 [facility] Comment on above: Performed By: #### C MP #### [facility] [address] [address] [address] Julia Velasquez Anion gap [Moles/Vol] 13.4 mmol/L Normal [facility] Comment on above: Performed By: #### C MP #### [facility] [address] [address] [address] Julia Velasquez AST [Catalytic activity/Vol] 71 U/L Critically high 15-37 [facility] Comment on above: Performed By: #### C MP #### [facility] [address] [address] [address] Julia Velasquez Bilirubin [Mass/Vol] 1.2 mg/dL Critically high 0.2-1.0 [facility] Comment on above: Performed By: #### C MP #### [facility] [address] [address] [address] Julia Velasquez Calcium [Mass/Vol] 8.1 mg/dL Critically low 8.5-10.1 [facility] Comment on above: Performed By: #### C MP #### [facility] [address] [address] [address] Julia Velasquez Chloride [Moles/Vol] 116 mmol/L Critically high 98-107 [facility] Comment on above: Performed By: #### C MP #### [facility] [address] [address] [address] Julia Velasquez CO2 [Moles/Vol] 21.3 mmol/L Normal 21.0-32.0 [facility] Comment on above: Performed By: #### C MP #### [facility] [address] [address] [address] Julia Velasquez Creatinine [Mass/Vol] 1.10 mg/dL Critically high 0.55-1.02 [facility] Comment on above: Performed By: #### C MP #### [facility] [address] [address] [address] Julia Velasquez EGFR-AF SIERRA LEONEAN 58 mL/min/1.73m2 Critically low >=60 [facility] Comment on above: Performed By: #### C MP #### [facility] [address] [address] [address] Julia Velasquez EGFR-NON AF SIERRA LEONEAN 48 mL/min/1.73m2 Critically low >=60 [facility] Comment on above: Performed By: #### C MP #### [facility] [address] [address] [address] Julia Velasquez Globulin (S) [Mass/Vol] 3.8 g/dL Normal [facility] Comment on above: Performed By: #### C MP #### [facility] [address] [address] [address] Julia Velasquez Glucose [Mass/Vol] 110 mg/dL Critically high 74-106 [facility] Comment on above: Performed By: #### C MP #### [facility] [address] [address] [address] Julia Velasquez Potassium [Moles/Vol] 4.7 mmol/L Normal 3.5-5.1 [facility] Comment on above: Performed By: #### C MP #### [facility] [address] [address] [address] Julia Velasquez Protein [Mass/Vol] 5.1 g/dL Critically low 6.4-8.2 [facility] Comment on above: Performed By: #### C MP #### [facility] [address] [address] [address] Julia Velasquez Sodium [Moles/Vol] 146 mmol/L Critically high 136-145 [facility] Comment on above: Performed By: #### C MP #### [facility] [address] [address] [address] Julia Velasquez Urea nitrogen [Mass/Vol] 34.0 mg/dL Critically high 7.0-18.0 [facility] Comment on above: Performed By: #### C MP #### [facility] [address] [address] [address] Julia Velasquez Urea nitrogen/Creatinine [Mass ratio] 30.9 mg/mg Normal [facility] Comment on above: Performed By: #### C MP #### [facility] [address] [place] [address] Dr. Julia Velasquez CBC W MANUAL DIFFon 12-14-19 23 ATYPICAL LYMPH # 0.21 103/ul Normal [facility] Comment on above: Performed By: #### C MP #### [facility] [address] [place] [address] Dr. Julia Velasquez ATYPICAL LYMPH % 1 % Normal [facility] Comment on above: Performed By: #### C MP #### [facility] [address] [place] [address] Dr. Julia Velasquez BAND # 0.2 103/ul Normal 0.0-0.[address] [facility] Comment on above: Performed By: #### C MP #### [facility] [address] [place] [address] Dr. Julia Velasquez BAND % 1 % Normal 0-[address] [facility] Comment on above: Performed By: #### C MP #### [facility] [address] [place] [address] Dr. Julia Velasquez BASOM # 0.00 103/ul Normal 0.00-0.[address] [facility] Comment on above: Performed By: #### C MP #### [facility] [address] [place] [address] Dr. Julia Velasquez BASOM % 0.0 % Critically low 0.2-2.0 [facility] Comment on above: Performed By: #### C MP #### [facility] [address] [place] [address] Dr. Julia Velasquez BLAST # Normal [facility] Comment on above: Performed By: #### C MP #### [facility] [address] [place] [address] Dr. Julia Velasquez BLAST % Normal [facility] Comment on above: Performed By: #### C MP #### [facility] [address] [place] [address] Dr. Julia Velasquez CORRECTED WBC Normal 4.0-11.0 [facility] Comment on above: Performed By: #### C MP #### [facility] [address] [address] [address] Julia Velasquez EOS # 0.00 103/ul Normal 0.00-0.70 [facility] Comment on above: Performed By: #### C MP #### [facility] [address] [address] [address] Julia Velasquez EOS% 0.0 % Critically low 0.9-7.0 [facility] Comment on above: Performed By: #### C MP #### [facility] [address] [address] [address] Julia Velasquez HCT 26.7 % Critically low 36.0-48.0 [facility] Comment on above: Performed By: #### C MP #### [facility] [address] [place] [address] Dr. Julia Velasquez HGB 8.8 g/dl Critically low 12.0-16.0 [facility] Comment on above: Performed By: #### C MP #### [facility] [address] [place] [address] Dr. Julia Velasquez LYMPHM # 1.05 103/ul Critically low 1.20-3.80 [facility] Comment on above: Performed By: #### C MP #### [facility] [address] [place] [address] Dr. Julia Velasquez LYMPHM% 5.0 % Critically low 20.5-60.0 [facility] Comment on above: Performed By: #### C MP #### [facility] [address] [place] [address] Dr. Julia Velasquez MCH 29.0 pg Normal 26.7-34.0 [facility] Comment on above: Performed By: #### C MP #### [facility] [address] [place] [address] Dr. Julia Velasquez MCHC 33.0 g/dl Normal 29.9-35.[address] [facility] Comment on above: Performed By: #### C MP #### [facility] [address] [place] [address] Dr. Julia Velasquez MCV 88.1 fL Normal 81.0-99.0 [facility] Comment on above: Performed By: #### C MP #### [facility] [address] [place] [address] Dr. Julia Velasquez METAMYELOCYTE # Normal [facility] Comment on above: Performed By: #### C MP #### [facility] [address] [place] [address] Dr. Julia Velasquez METAMYELOCYTE % Normal [facility] Comment on above: Performed By: #### C MP #### [facility] [address] [place] [address] Dr. Julia Velasquez MONOM# 0.21 103/ul Critically low 0.30-0.80 [facility] Comment on above: Performed By: #### C MP #### [facility] [address] [place] [address] Dr. Julia Velasquez MONOM% 1.0 % Critically low 1.7-12.0 [facility] Comment on above: Performed By: #### C MP #### [facility] [address] [place] [address] Dr. Julia Velasquez MPV 10.6 fL Normal 9.5-13.5 [facility] Comment on above: Performed By: #### C MP #### [facility] [address] [place] [address] Dr. Julia Velasquez MYELOCYTE # Normal [facility] Comment on above: Performed By: #### C MP #### [facility] [address] [place] [address] Dr. Julia Velasquez MYELOCYTE % Normal [facility] Comment on above: Performed By: #### C MP #### [facility] [address] [place] [address] Dr. Julia Velasquez NRBC Normal [facility] Comment on above: Performed By: #### C MP #### [facility] [address] [place] [address] Dr. Julia Velasquez PLT 271 103/ul Normal 150-[address] [facility] Comment on above: Performed By: #### C MP #### [facility] [address] [address] [address] Julia Velasquez RBC 3.03 106/ul Critically low 4.20-5.40 [facility] Comment on above: Performed By: #### C MP #### [facility] [address] [address] [address] Julia Velasquez RDW 16.7 % Critically high 11.0-15.0 [facility] Comment on above: Performed By: #### C MP #### [facility] [address] [address] [address] Julia Velasquez SEG # 19.41 103/ul Critically high 1.40-6.50 [facility] Comment on above: Performed By: #### C MP #### [facility] [address] [address] [address] Julia Velasquez SEG % 92.0 % Critically high 43.0-75.0 [facility] Comment on above: Performed By: #### C MP #### [facility] [address] [address] [address] Julia Velasquez WBC 21.1 103/ul Critically high 4.0-11.0 [facility] Comment on above: Performed By: #### C MP #### [facility] [address] [address] [address] Julia Velasquez PROF 14(COMP METB)on 023 Albumin [Mass/Vol] 1.4 g/dL Critically low 3.4-5.0 [facility] Comment on above: Performed By: #### C MP #### [facility] [address] [address] [address] Julia Velasquez Albumin/Globulin [Mass ratio] 0.4 {ratio} Normal [facility] Comment on above: Performed By: #### C MP #### [facility] [address] [address] [address] Julia Velasquez ALP [Catalytic activity/Vol] 87 U/L Normal 46-116 [facility] Comment on above: Performed By: #### C MP #### [facility] [address] [address] [address] Julia Velasquez ALT [Catalytic activity/Vol] 26 U/L Normal 14-59 [facility] Comment on above: Performed By: #### C MP #### [facility] [address] [address] [address] Julia Velasquez Anion gap [Moles/Vol] 14.7 mmol/L Normal [facility] Comment on above: Performed By: #### C MP #### [facility] [address] [address] [address] Julia Velasquez AST [Catalytic activity/Vol] 59 U/L Critically high 15-37 [facility] Comment on above: Performed By: #### C MP #### [facility] [address] [address] [address] Julia Velasquez Bilirubin [Mass/Vol] 1.5 mg/dL Critically high 0.2-1.0 [facility] Comment on above: Performed By: #### C MP #### [facility] [address] [address] [address] Julia Velasquez Calcium [Mass/Vol] 8.1 mg/dL Critically low 8.5-10.1 [facility] Comment on above: Performed By: #### C MP #### [facility] [address] [place] [address] Dr. Julia Velasquez Chloride [Moles/Vol] 118 mmol/L Critically high 98-107 [facility] Comment on above: Performed By: #### C MP #### [facility] [address] [address] [address] Julia Velasquez CO2 [Moles/Vol] 20.6 mmol/L Critically low 21.0-32.[address] [facility] Comment on above: Performed By: #### C MP #### [facility] [address] [address] [address] Julia Velasquez Creatinine [Mass/Vol] 1.20 mg/dL Critically high 0.55-1.02 [facility] Comment on above: Performed By: #### C MP #### [facility] [address] [address] [address] Julia Velasquez EGFR-AF SIERRA LEONEAN 52 mL/min/1.73m2 Critically low >=60 [facility] Comment on above: Performed By: #### C MP #### [facility] [address] [address] [address] Julia Velasquez EGFR-NON AF SIERRA LEONEAN 43 mL/min/1.73m2 Critically low >=60 [facility] Comment on above: Performed By: #### C MP #### [facility] [address] [address] [address] Julia Velasquez Globulin (S) [Mass/Vol] 3.4 g/dL Normal [facility] Comment on above: Performed By: #### C MP #### [facility] [address] [address] [address] Julia Velasquez Glucose [Mass/Vol] 119 mg/dL Critically high 74-106 [facility] Comment on above: Performed By: #### C MP #### [facility] [address] [address] [address] Julia Velasquez Potassium [Moles/Vol] 4.3 mmol/L Normal 3.5-5.1 [facility] Comment on above: Performed By: #### C MP #### [facility] [address] [address] [address] Julia Velasquez Protein [Mass/Vol] 4.8 g/dL Critically low 6.4-8.2 [facility] Comment on above: Performed By: #### C MP #### [facility] [address] [address] [address] Julia Velasquez Sodium [Moles/Vol] 149 mmol/L Critically high 136-145 [facility] Comment on above: Performed By: #### C MP #### [facility] [address] [address] [address] Julia Velasquez Urea nitrogen [Mass/Vol] 47.0 mg/dL Critically high 7.0-18.0 [facility] Comment on above: Performed By: #### C MP #### [facility] [address] [address] [address] Julia Velasquez Urea nitrogen/Creatinine [Mass ratio] 39.2 mg/mg Normal [facility] Comment on above: Performed By: #### C MP #### [facility] [address] [place] [address] Dr. Julia Velasquez CBC W MANUAL DIFFon 12-13-19 23 ATYPICAL LYMPH # Normal [facility] Comment on above: Performed By: #### L IVER, BMP, LIPA, EDSON #### [facility] [address] [place] [address] Dr. Julia Velasquez ATYPICAL LYMPH % Normal [facility] Comment on above: Performed By: #### L IVER, BMP, LIPA, EDSON #### [facility] [address] [place] [address] Dr. Julia Velasquez BAND # 0.9 103/ul Critically high 0.0-0.3 [facility] Comment on above: Performed By: #### L IVER, BMP, LIPA, EDSON #### [facility] [address] [place] [address] Dr. Julia Velasquez BAND % 3 % Normal 0-5 [facility] Comment on above: Performed By: #### L IVER, BMP, LIPA, EDSON #### [facility] [address] [place] [address] Dr. Julia Velasquez BASOM # 0.00 103/ul Normal 0.00-0.10 [facility] Comment on above: Performed By: #### L IVER, BMP, LIPA, EDSON #### [facility] [address] [place] [address] Dr. Julia Velasquez BASOM % 0.0 % Critically low 0.2-2.0 [facility] Comment on above: Performed By: #### L IVER, BMP, LIPA, EDSON #### [facility] [address] [place] [address] Dr. Julia Velasquez BLAST # Normal [facility] Comment on above: Performed By: #### L IVER, BMP, LIPA, EDSON #### [facility] [address] [place] [address] Dr. Julia Velasquez BLAST % Normal [facility] Comment on above: Performed By: #### L IVER, BMP, LIPA, EDSON #### [facility] [address] [place] [address] Dr. Julia Velasquez CORRECTED WBC Normal 4.0-11.0 [facility] Comment on above: Performed By: #### L IVER, BMP, LIPA, EDSON #### [facility] [address] [place] [address] Dr. Julia Velasquez EOS # 0.00 103/ul Normal 0.00-0.70 [facility] Comment on above: Performed By: #### L IVER, BMP, LIPA, EDSON #### [facility] [address] [place] [address] Dr. Julia Velasquez EOS% 0.0 % Critically low 0.9-7.0 [facility] Comment on above: Performed By: #### L IVER, BMP, LIPA, EDSON #### [facility] [address] [place] [address] Dr. Julia Velasquez HCT 28.9 % Critically low 36.0-48.0 [facility] Comment on above: Performed By: #### L IVER, BMP, LIPA, EDSON #### [facility] [address] [place] [address] Dr. Julia Velasquez HGB 9.5 g/dl Critically low 12.0-16.0 [facility] Comment on above: Performed By: #### L IVER, BMP, LIPA, EDSON #### [facility] [address] [place] [address] Dr. Julia Velasquez LYMPHM # 1.21 103/ul Normal 1.20-3.80 [facility] Comment on above: Performed By: #### L IVER, BMP, LIPA, EDSON #### [facility] [address] [place] [address] Dr. Julia Velasquez LYMPHM% 4.0 % Critically low 20.5-60.0 [facility] Comment on above: Performed By: #### L IVER, BMP, LIPA, EDSON #### [facility] [address] [address] [address] Julia Velasquez MCH 29.2 pg Normal 26.7-34.0 [facility] Comment on above: Performed By: #### L IVER, BMP, LIPA, EDSON #### [facility] [address] [address] [address] Julia Velasquez MCHC 32.9 g/dl Normal 29.9-35.2 [facility] Comment on above: Performed By: #### L IVER, BMP, LIPA, EDSON #### [facility] [address] [address] [address] Julia Velasquez MCV 88.9 fL Normal 81.0-99.0 [facility] Comment on above: Performed By: #### L IVER, BMP, LIPA, EDSON #### [facility] [address] [place] [address] Dr. Julia Velasquez METAMYELOCYTE # Normal [facility] Comment on above: Performed By: #### L IVER, BMP, LIPA, EDSON #### [facility] [address] [address] [address] Julia Velasquez METAMYELOCYTE % Normal [facility] Comment on above: Performed By: #### L IVER, BMP, LIPA, EDSON #### [facility] [address] [address] [address] Julia Velasquez MONOM# 1.21 103/ul Critically high 0.30-0.80 [facility] Comment on above: Performed By: #### L IVER, BMP, LIPA, EDSON #### [facility] [address] [address] [address] Julia Velasquez MONOM% 4.0 % Normal 1.7-12.0 [facility] Comment on above: Performed By: #### L IVER, BMP, LIPA, EDSON #### [facility] [address] [address] [address] Julia Velasquez MPV 11.2 fL Normal 9.5-13.5 [facility] Comment on above: Performed By: #### L IVER, BMP, LIPA, EDSON #### [facility] [address] [address] [address] Julia Velasquez MYELOCYTE # Normal [facility] Comment on above: Performed By: #### L IVER, BMP, LIPA, EDSON #### [facility] [address] [address] [address] Julia Velasquez MYELOCYTE % Normal [facility] Comment on above: Performed By: #### L IVER, BMP, LIPA, EDSON #### [facility] [address] [address] [address] Julia Velasquez NRBC 2 Normal [facility] Comment on above: Performed By: #### L IVER, BMP, LIPA, EDSON #### [facility] [address] [address] [address] Julia Velasquez PLT 273 103/ul Normal 150-450 [facility] Comment on above: Performed By: #### L IVER, BMP, LIPA, EDSON #### [facility] [address] [address] [address] Julia Velasquez RBC 3.25 106/ul Critically low 4.20-5.40 [facility] Comment on above: Performed By: #### L IVER, BMP, LIPA, EDSON #### [facility] [address] [place] [address] Dr. Julia Velasquez RDW 16.0 % Critically high 11.0-15.0 [facility] Comment on above: Performed By: #### L IVER, BMP, LIPA, EDSON #### [facility] [address] [address] [address] Julia Velasquez SEG # 26.97 103/ul Critically high 1.40-6.50 [facility] Comment on above: Performed By: #### L IVER, BMP, LIPA, EDSON #### [facility] [address] [address] [address] Julia Velasquez SEG % 89.0 % Critically high 43.0-75.0 [facility] Comment on above: Performed By: #### L IVER, BMP, LIPA, EDSON #### [facility] [address] [address] [address] Julia Velasquez WBC 30.3 103/ul Critically high 4.0-11.0 [facility] Comment on above: Performed By: #### L IVER, BMP, LIPA, EDSON #### [facility] [address] [place] [address] Dr. Julia Velasquez GI PANEL (PCR)on 12-12-2022 Adenovirus F 40/41 Not detected Normal NOT DETECTED [facility] Comment on above: Performed By: #### L IVER, BMP, LIPA, EDSON #### [facility] [address] [address] [address] Julia Velasquez Astrovirus Not detected Normal NOT DETECTED [facility] Comment on above: Performed By: #### L IVER, BMP, LIPA, EDSON #### [facility] [address] [place] [address] Dr. Julia Velasquez C. Diff toxin A/B Not detected Normal NOT DETECTED [facility] Comment on above: Performed By: #### L IVER, BMP, LIPA, EDSON #### [facility] [address] [address] [address] Julia Velasquez Campylobacter Not detected Normal NOT DETECTED [facility] Comment on above: Performed By: #### L IVER, BMP, LIPA, EDSON #### [facility] [address] [place] [address] Dr. Julia Velasquez Cryptosporidium Not detected Normal NOT DETECTED [facility] Comment on above: Performed By: #### L IVER, BMP, LIPA, EDSON #### [facility] [address] [place] [address] Dr. Julia Velasquez Cyclos. Cayetanensis Not detected Normal NOT DETECTED [facility] Comment on above: Performed By: #### L IVER, BMP, LIPA, EDSON #### [facility] [address] [place] [address] Dr. Julia Velasquez E. Coli O157 Not Applicable Normal Not Applicable [facility] Comment on above: Performed By: #### L IVER, BMP, LIPA, EDSON #### [facility] [address] [place] [address] Dr. Julia Velasquez E. histolytica Not detected Normal NOT DETECTED [facility] Comment on above: Performed By: #### L IVER, BMP, LIPA, EDSON #### [facility] [address] [place] [address] Dr. Julia Velasquez EAEC Not detected Normal NOT DETECTED [facility] Comment on above: Performed By: #### L IVER, BMP, LIPA, EDSON #### [facility] [address] [place] [address] Dr. Julia Velasquez EIEC Not detected Normal NOT DETECTED [facility] Comment on above: Performed By: #### L IVER, BMP, LIPA, EDSON #### [facility] [address] [place] [address] Dr. Julia Velasquez EPEC Not detected Normal NOT DETECTED [facility] Comment on above: Performed By: #### L IVER, BMP, LIPA, EDSON #### [facility] [address] [place] [address] Dr. Julia Velasquez ETEC Not detected Normal NOT DETECTED [facility] Comment on above: Performed By: #### L IVER, BMP, LIPA, EDSON #### [facility] [address] [place] [address] Dr. Julia Velasquez G. Lamblia Not detected Normal NOT DETECTED [facility] Comment on above: Performed By: #### L IVER, BMP, LIPA, EDSON #### [facility] [address] [place] [address] Dr. Julia GARCIAL CONTROLS PASSED Normal [facility] Comment on above: Performed By: #### L IVER, BMP, LIPA, EDSON #### [facility] [address] [place] [address] Dr. Julia GARÍCANL [place] HEADER GI PANEL BACTERIA Normal [facility] Comment on above: Performed By: #### L IVER, BMP, LIPA, EDSON #### [facility] [address] [place] [address] Dr. Julia DEMPSEY ECOLI GI PANEL DIARRHEAGENIC E.COLI / SHIGELLA Normal [facility] Comment on above: Performed By: #### L IVNANCY VARGAS LIPA, EDSON #### [facility] [address] [address] [address] Julia DMEPSEY INFO SEE BELOW Normal [facility] Comment on above: Result Comment: EAEC - Enteroaggregative E. Coli EPEC- Enteropathogenic E. Coli ETEC- Enterotoxigenic E. Coli lt/st STEC- Shigella-like toxin-producing E. Coli stx1/stx2 EIEC- Shigella/Enteroinvasive E. Coli Performed By: #### L IVERNANCY, LIPA, EDSON #### [facility] [address] [place] [address] Dr. Julia DEMPSEY PARASITES GI PANEL PARASITES Normal [facility] Comment on above: Performed By: #### L IVER BMP, LIPA, EDSON #### [facility] [address] [address] [address] Julia DEMPSEY VIRUS GI PANEL VIRUSES Normal [facility] Comment on above: Performed By: #### L IVERNANCY, LIPA, EDSON #### [facility] [address] [place] [address] Dr. Julia Velasquez Norovirus GI/GII Not detected Normal NOT DETECTED [facility] Comment on above: Performed By: #### L IVER, BMP, LIPA, EDSON #### [facility] [address] [address] [address] Julia Velasquez P. Shigelloides Not detected Normal NOT DETECTED [facility] Comment on above: Performed By: #### L IVER, BMP, LIPA, EDSON #### [facility] [address] [place] [address] Dr. Julia Velasquez Rotavirus A Not detected Normal NOT DETECTED [facility] Comment on above: Performed By: #### L IVER, BMP, LIPA, EDSON #### [facility] [address] [address] [address] Julia Velasquez Salmonella Not detected Normal NOT DETECTED [facility] Comment on above: Performed By: #### L IVER, BMP, LIPA, EDSON #### [facility] [address] [place] [address] Dr. Julia Velasquez Sapovirus Not detected Normal NOT DETECTED [facility] Comment on above: Performed By: #### L IVER, BMP, LIPA, EDSON #### [facility] [address] [place] [address] Dr. Julia Velasquez STEC Not detected Normal NOT DETECTED [facility] Comment on above: Performed By: #### L IVER, BMP, LIPA, EDSON #### [facility] [address] [place] [address] Dr. Julia Velasquez Vibrio Not detected Normal NOT DETECTED [facility] Comment on above: Performed By: #### L IVER, BMP, LIPA, EDSON #### [facility] [address] [place] [address] Dr. Julia Velasquez Vibrio Cholera Not detected Normal NOT DETECTED [facility] Comment on above: Performed By: #### L IVER, BMP, LIPA, EDSON #### [facility] [address] [place] [address] Dr. Julia Velasquez Y. Enterocolitica Not detected Normal NOT DETECTED [facility] Comment on above: Performed By: #### L IVER, BMP, LIPA, EDSON #### [facility] [address] [place] [address] Dr. Julia Velasquez PROF 14(COMP METB)on 023 Albumin [Mass/Vol] 1.4 g/dL Critically low 3.4-5.0 [facility] Comment on above: Performed By: #### L IVER, BMP, LIPA, EDSON #### [facility] [address] [place] [address] Dr. Julia Velasquez Albumin/Globulin [Mass ratio] 0.3 {ratio} Normal [facility] Comment on above: Performed By: #### L IVER, BMP, LIPA, EDSON #### [facility] [address] [place] [address] Dr. Julia Velasquez ALP [Catalytic activity/Vol] 89 U/L Normal 46-116 [facility] Comment on above: Performed By: #### L IVER, BMP, LIPA, EDSON #### [facility] [address] [address] [address] Julia Velasquez ALT [Catalytic activity/Vol] 27 U/L Normal 14-59 [facility] Comment on above: Performed By: #### L IVER, BMP, LIPA, EDSON #### [facility] [address] [address] [address] Julia Velasquez Anion gap [Moles/Vol] 14.7 mmol/L Normal [facility] Comment on above: Performed By: #### L IVER, BMP, LIPA, EDSON #### [facility] [address] [place] [address] Dr. Julia Velasquez AST [Catalytic activity/Vol] 58 U/L Critically high 15-37 [facility] Comment on above: Performed By: #### L IVER, BMP, LIPA, EDSON #### [facility] [address] [place] [address] Dr. Julia Velasquez Bilirubin [Mass/Vol] 2.0 mg/dL Critically high 0.2-1.0 [facility] Comment on above: Performed By: #### L IVER, BMP, LIPA, EDSON #### [facility] [address] [place] [address] Dr. Julia Velasquez Calcium [Mass/Vol] 8.8 mg/dL Normal 8.5-10.1 [facility] Comment on above: Performed By: #### L IVER, BMP, LIPA, EDSON #### [facility] [address] [place] [address] Dr. Julia Velasquez Chloride [Moles/Vol] 118 mmol/L Critically high 98-107 [facility] Comment on above: Performed By: #### L IVER, BMP, LIPA, EDSON #### [facility] [address] [place] [address] Dr. Julia Velasquez CO2 [Moles/Vol] 20.7 mmol/L Critically low 21.0-32.[address] [facility] Comment on above: Performed By: #### L IVER, BMP, LIPA, EDSON #### [facility] [address] [place] [address] Dr. Julia Velasquez Creatinine [Mass/Vol] 1.63 mg/dL Critically high 0.55-1.02 [facility] Comment on above: Performed By: #### L IVER, BMP, LIPA, EDSON #### [facility] [address] [place] [address] Dr. Julia Velasquez EGFR-AF SIERRA LEONEAN 37 mL/min/1.73m2 Critically low >=60 [facility] Comment on above: Performed By: #### L IVER, BMP, LIPA, EDSON #### [facility] [address] [place] [address] Dr. Julia Velasquez EGFR-NON AF SIERRA LEONEAN 30 mL/min/1.73m2 Critically low >=60 [facility] Comment on above: Performed By: #### L IVER, BMP, LIPA, EDSON #### [facility] [address] [place] [address] Dr. Julia Velasquez Globulin (S) [Mass/Vol] 4.7 g/dL Normal [facility] Comment on above: Performed By: #### L IVER, BMP, LIPA, EDSON #### [facility] [address] [place] [address] Dr. Julia Velasquez Glucose [Mass/Vol] 130 mg/dL Critically high 74-106 [facility] Comment on above: Performed By: #### L IVER, BMP, LIPA, EDSON #### [facility] [address] [place] [address] Dr. Julia Velasquez Potassium [Moles/Vol] 4.4 mmol/L Normal 3.5-5.1 [facility] Comment on above: Performed By: #### L IVER, BMP, LIPA, EDSON #### [facility] [address] [place] [address] Dr. Julia Velasquez Protein [Mass/Vol] 6.1 g/dL Critically low 6.4-8.2 [facility] Comment on above: Performed By: #### L IVER, BMP, LIPA, EDSON #### [facility] [address] [place] [address] Dr. Julia Velasquez Sodium [Moles/Vol] 149 mmol/L Critically high 136-145 [facility] Comment on above: Performed By: #### L IVER, BMP, LIPA, EDSON #### [facility] [address] [place] [address] Dr. Julia Velasquez Urea nitrogen [Mass/Vol] 56.0 mg/dL Critically high 7.0-18.0 [facility] Comment on above: Performed By: #### L IVER, BMP, LIPA, EDSON #### [facility] [address] [place] [address] Dr. Jluia Velasquez Urea nitrogen/Creatinine [Mass ratio] 34.4 mg/mg Normal [facility] Comment on above: Performed By: #### L IVER, BMP, LIPA, EDSON #### [facility] [address] [place] [address] Dr. Julia Velasquez RESPIRATORY PANEL PLUSon Adenovirus Not detected Normal NOT DETECTED [facility] Comment on above: Performed By: #### L IVER, BMP, LIPA, EDSON #### [facility] [address] [place] [address] Dr. Julia Crystal. Parapertusis Not detected Normal NOT DETECTED [facility] Comment on above: Performed By: #### L IVER, BMP, LIPA, EDSON #### [facility] [address] [place] [address] Dr. Julia Crystal. Pertussis Not detected Normal NOT DETECTED [facility] Comment on above: Performed By: #### L IVER, BMP, LIPA, EDSON #### [facility] [address] [place] [address] Dr. Julia Velasquez Chlamydia Pneumoniae Not detected Normal NOT DETECTED [facility] Comment on above: Performed By: #### L IVER, BMP, LIPA, EDSON #### [facility] [address] [place] [address] Dr. Julia Velasquez Coronavirus 229E Not detected Normal NOT DETECTED [facility] Comment on above: Performed By: #### L IVER, BMP, LIPA, EDSON #### [facility] [address] [place] [address] Dr. Julia Velasquez Coronavirus HKU1 Not detected Normal NOT DETECTED [facility] Comment on above: Performed By: #### L IVER, BMP, LIPA, EDSON #### [facility] [address] [place] [address] Dr. Julia Velasquez Coronavirus NL63 Not detected Normal NOT DETECTED [facility] Comment on above: Performed By: #### L IVER, BMP, LIPA, EDSON #### [facility] [address] [place] [address] Dr. Julia Velasquez Coronavirus OC43 Not detected Normal NOT DETECTED [facility] Comment on above: Performed By: #### L IVER, BMP, LIPA, EDSON #### [facility] [address] [place] [address] Dr. Julia Velasquez Influenza A H1 Not detected Normal NOT DETECTED [facility] Comment on above: Performed By: #### L IVER, BMP, LIPA, EDSON #### [facility] [address] [place] [address] Dr. Julia Velasquez Influenza A H1 2009 Not detected Normal NOT DETECTED [facility] Comment on above: Performed By: #### L IVER, BMP, LIPA, EDSON #### [facility] [address] [place] [address] Dr. Julia Velasquez Influenza A H3 Not detected Normal NOT DETECTED [facility] Comment on above: Performed By: #### L IVER, BMP, LIPA, EDSON #### [facility] [address] [place] [address] Dr. Julia Velasquez Influenza B Not detected Normal NOT DETECTED [facility] Comment on above: Performed By: #### L IVER, BMP, LIPA, EDSON #### [facility] [address] [place] [address] Dr. Julia Velasquez Metapneumovirus Not detected Normal NOT DETECTED [facility] Comment on above: Performed By: #### L IVER, BMP, LIPA, EDSON #### [facility] [address] [address] [address] Julia Velasquez Mycoplas. Pneumoniae Not detected Normal NOT DETECTED [facility] Comment on above: Performed By: #### L IVER, BMP, LIPA, EDSON #### [facility] [address] [address] [address] Julia Velasquez Parainfluenza 1 Not detected Normal NOT DETECTED [facility] Comment on above: Performed By: #### L IVER, BMP, LIPA, EDSON #### [facility] [address] [address] [address] Julia Velasquez Parainfluenza 2 Not detected Normal NOT DETECTED [facility] Comment on above: Performed By: #### L IVER, BMP, LIPA, EDSON #### [facility] [address] [place] [address] Dr. Julia Velasquez Parainfluenza 3 Not detected Normal NOT DETECTED [facility] Comment on above: Performed By: #### L IVER, BMP, LIPA, EDSON #### [facility] [address] [place] [address] Dr. Julia Velasquez Parainfluenza 4 Not detected Normal NOT DETECTED [facility] Comment on above: Performed By: #### L IVER, BMP, LIPA, EDSON #### [facility] [address] [address] [address] Julia Velasquez Rhino/Enterovirus Not detected Normal NOT DETECTED [facility] Comment on above: Performed By: #### L IVER, BMP, LIPA, EDSON #### [facility] [address] [address] [address] Julia Velasquez RP2 Header 1 RESPIRATORY PANEL: VIRUSES Normal [facility] Comment on above: Performed By: #### L IVER, BMP, LIPA, EDSON #### [facility] [address] [address] [address] Julia GRAHAM Header 2 RESPIRATORY PANEL: BACTERIA Normal [facility] Comment on above: Performed By: #### L IVER, BMP, LIPA, EDSON #### [facility] [address] [place] [address] Dr. Julia Velasquez RSV Not detected Normal NOT DETECTED [facility] Comment on above: Performed By: #### L IVER, BMP, LIPA, EDSON #### [facility] [address] [place] [address] Dr. Julia Velasquez SARS-CoV-2 (COVID-19) RNA MARIO+probe Ql (Unsp spec) Not detected Normal NOT DETECTED [facility] Comment on above: Performed By: #### L IVER, BMP, LIPA, EDSON #### [facility] [address] [place] [address] Dr. Julia Velasquez CBC AUTO DIFFon 12-11-2022 BASO # 0.1 103/ul Normal 0.0-0.1 [facility] Comment on above: Performed By: #### C MP #### [facility] [address] [place] [address] Dr. Julia Velasquez Basophils/100 WBC (Bld) 0.4 % Normal 0.2-2.0 [facility] Comment on above: Performed By: #### C MP #### [facility] [address] [place] [address] Dr. Julia Velasquez EO # 0.0 103/ul Normal 0.0-0.7 [facility] Comment on above: Performed By: #### C MP #### [facility] [address] [place] [address] Dr. Julia Velasquez Eosinophils/100 WBC (Bld) 0.0 % Critically low 0.9-7.0 [facility] Comment on above: Performed By: #### C MP #### [facility] [address] [place] [address] Dr. Julia Velasquez Erythrocyte distribution width (RBC) [Ratio] 15.9 % Critically high 11.0-15.0 [facility] Comment on above: Performed By: #### C MP #### [facility] [address] [place] [address] Dr. Julia Velasquez Hematocrit (Bld) [Volume fraction] 34.4 % Critically low 36.0-48.0 [facility] Comment on above: Performed By: #### C MP #### [facility] [address] [place] [address] Dr. Julia Velasquez Hemoglobin (Bld) [Mass/Vol] 11.1 g/dL Critically low 12.0-16.0 [facility] Comment on above: Performed By: #### C MP #### [facility] [address] [place] [address] Dr. Julia Velasquez IG # 0.75 10e3/ul Critically high 0.00-0.03 [facility] Comment on above: Performed By: #### C MP #### [facility] [address] [place] [address] Dr. Julia Velasquez IG % 2.7 % Critically high 0.0-0.5 [facility] Comment on above: Performed By: #### C MP #### [facility] [address] [place] [address] Dr. Julia Velasquez LYMPH # 0.7 103/ul Critically low 1.2-3.8 [facility] Comment on above: Performed By: #### C MP #### [facility] [address] [place] [address] Dr. Julia Velasquez Lymphocytes/100 WBC (Bld) 2.4 % Critically low 20.5-60.0 [facility] Comment on above: Performed By: #### C MP #### [facility] [address] [place] [address] Dr. Julia Velasquez MANUAL DIFF REQ NO Normal [facility] Comment on above: Performed By: #### C MP #### [facility] [address] [place] [address] Dr. Julia Velasquez MCH (RBC) [Entitic mass] 29.2 pg Normal 26.7-34.0 [facility] Comment on above: Performed By: #### C MP #### [facility] [address] [place] [address] Dr. Julia Velasquez MCHC (RBC) [Mass/Vol] 32.3 g/dL Normal 29.9-35.2 [facility] Comment on above: Performed By: #### C MP #### [facility] [address] [address] [address] Julia Velasquez MCV (RBC) [Entitic vol] 90.5 fL Normal 81.0-99.0 [facility] Comment on above: Performed By: #### C MP #### [facility] [address] [address] [address] Julia Velasquez MONO # 0.7 103/ul Normal 0.3-0.8 [facility] Comment on above: Performed By: #### C MP #### [facility] [address] [address] [address] Julia Velasquez Monocytes/100 WBC (Bld) 2.6 % Normal 1.7-12.0 [facility] Comment on above: Performed By: #### C MP #### [facility] [address] [address] [address] Julia Velasquez NEUT # 25.6 103/ul Critically high 1.4-6.5 [facility] Comment on above: Performed By: #### C MP #### [facility] [address] [address] [address] Julia Velasquez Neutrophils/100 WBC (Bld) 91.9 % Critically high 43.0-75.0 [facility] Comment on above: Performed By: #### C MP #### [facility] [address] [address] [address] Julia Velasquez Platelet mean volume (Bld) [Entitic vol] 11.1 fL Normal 9.5-13.5 [facility] Comment on above: Performed By: #### C MP #### [facility] [address] [address] [address] Julia Velasquez PLT 240 103/ul Normal 150-[address] [facility] Comment on above: Performed By: #### C MP #### [facility] [address] [address] [address] Julia Velasquez RBC 3.80 106/ul Critically low 4.20-5.40 [facility] Comment on above: Performed By: #### C MP #### [facility] [address] [address] [address] Julia Velasquez WBC 27.9 103/ul Critically high 4.0-11.0 [facility] Comment on above: Performed By: #### C MP #### [facility] [address] [address] [address] Julia Velasquez CBC W MANUAL DIFFon 12-12-19 23 ATYPICAL LYMPH # Normal [facility] Comment on above: Performed By: #### L IVER, BMP, LIPA, EDSON #### [facility] [address] [address] [address] Julia Velasquez ATYPICAL LYMPH % Normal [facility] Comment on above: Performed By: #### L IVER, BMP, LIPA, EDSON #### [facility] [address] [place] [address] Dr. Julia Velasquez BAND # 3.0 103/ul Critically high 0.0-0.3 [facility] Comment on above: Performed By: #### L IVER, BMP, LIPA, EDSON #### [facility] [address] [address] [address] Julia Velasquez BAND % 9 % Critically high 0-5 [facility] Comment on above: Performed By: #### L IVER, BMP, LIPA, EDSON #### [facility] [address] [address] [address] Julia Velasquez BASOM # 0.00 103/ul Normal 0.00-0.10 [facility] Comment on above: Performed By: #### L IVER, BMP, LIPA, EDSON #### [facility] [address] [address] [address] Julia Velsaquez BASOM % 0.0 % Critically low 0.2-2.0 [facility] Comment on above: Performed By: #### L IVER, BMP, LIPA, EDSON #### [facility] [address] [address] [address] Julia Velasquez BLAST # Normal [facility] Comment on above: Performed By: #### L IVER, BMP, LIPA, EDSON #### [facility] [address] [address] [address] Julia Velasquez BLAST % Normal [facility] Comment on above: Performed By: #### L IVER, BMP, LIPA, EDSON #### [facility] [address] [address] [address] Julia Velasquez CORRECTED WBC Normal 4.0-11.0 [facility] Comment on above: Performed By: #### L IVER, BMP, LIPA, EDSON #### [facility] [address] [address] [address] Julia Velasquez EOS # 0.00 103/ul Normal 0.00-0.70 [facility] Comment on above: Performed By: #### L IVER, BMP, LIPA, EDSON #### [facility] [address] [place] [address] Dr. Julia Velasquez EOS% 0.0 % Critically low 0.9-7.0 [facility] Comment on above: Performed By: #### L IVER, BMP, LIPA, EDSON #### [facility] [address] [place] [address] Dr. Julia Velasquez HCT 30.7 % Critically low 36.0-48.0 [facility] Comment on above: Performed By: #### L IVER, BMP, LIPA, EDSON #### [facility] [address] [address] [address] Julia Velasquez HGB 10.1 g/dl Critically low 12.0-16.0 [facility] Comment on above: Performed By: #### L IVER, BMP, LIPA, EDSON #### [facility] [address] [address] [address] Julia Velasquez LYMPHM # 0.67 103/ul Critically low 1.20-3.80 [facility] Comment on above: Performed By: #### L IVER, BMP, LIPA, EDSON #### [facility] [address] [address] [address] Julia Velasquez LYMPHM% 2.0 % Critically low 20.5-60.0 [facility] Comment on above: Performed By: #### L IVER, BMP, LIPA, EDSON #### [facility] [address] [place] [address] Dr. Julia Velasquez MCH 29.5 pg Normal 26.7-34.0 [facility] Comment on above: Performed By: #### L IVER, BMP, LIPA, EDSON #### [facility] [address] [place] [address] Dr. Julia Velasquez MCHC 32.9 g/dl Normal 29.9-35.2 [facility] Comment on above: Performed By: #### L IVER, BMP, LIPA, EDSON #### [facility] [address] [place] [address] Dr. Julia Velasquez MCV 89.8 fL Normal 81.0-99.0 [facility] Comment on above: Performed By: #### L IVER, BMP, LIPA, EDSON #### [facility] [address] [place] [address] Dr. Julia Velasquez METAMYELOCYTE # Normal [facility] Comment on above: Performed By: #### L IVER, BMP, LIPA, EDSON #### [facility] [address] [place] [address] Dr. Julia Velasquez METAMYELOCYTE % Normal [facility] Comment on above: Performed By: #### L IVER, BMP, LIPA, EDSON #### [facility] [address] [place] [address] Dr. Julia Velasquez MONOM# 0.33 103/ul Normal 0.30-0.80 [facility] Comment on above: Performed By: #### L IVER, BMP, LIPA, EDSON #### [facility] [address] [place] [address] Dr. Julia Velasquez MONOM% 1.0 % Critically low 1.7-12.0 [facility] Comment on above: Performed By: #### L IVER, BMP, LIPA, EDSON #### [facility] [address] [place] [address] Dr. Julia Velasquez MPV 10.1 fL Normal 9.5-13.5 [facility] Comment on above: Performed By: #### L IVER, BMP, LIPA, EDSON #### [facility] [address] [place] [address] Dr. Julia Velasquez MYELOCYTE # Normal [facility] Comment on above: Performed By: #### L IVER, BMP, LIPA, EDSON #### [facility] [address] [place] [address] Dr. Julia Velasquez MYELOCYTE % Normal [facility] Comment on above: Performed By: #### L IVER, BMP, LIPA, EDSON #### [facility] [address] [place] [address] Dr. Julia Velasquez NRBC Normal [facility] Comment on above: Performed By: #### L IVER, BMP, LIPA, EDSON #### [facility] [address] [place] [address] Dr. Julia Velasquez PLT 256 103/ul Normal 150-450 [facility] Comment on above: Performed By: #### L IVER, BMP, LIPA, EDSON #### [facility] [address] [place] [address] Dr. Julia Velasquez RBC 3.42 106/ul Critically low 4.20-5.40 [facility] Comment on above: Performed By: #### L IVER, BMP, LIPA, EDSON #### [facility] [address] [place] [address] Dr. Julia Velasquez RDW 15.9 % Critically high 11.0-15.0 [facility] Comment on above: Performed By: #### L IVER, BMP, LIPA, EDSON #### [facility] [address] [place] [address] Dr. Julia Velasquez SEG # 29.39 103/ul Critically high 1.40-6.50 [facility] Comment on above: Performed By: #### L IVER, BMP, LIPA, EDSON #### [facility] [address] [place] [address] Dr. Julia Velasquez SEG % 88.0 % Critically high 43.0-75.0 [facility] Comment on above: Performed By: #### L NANCY MONDRAGON LIPA, AMY #### [facility] [address] [place] [address] Dr. Julia Velasquez WBC 33.4 103/ul Critically high 4.0-11.0 [facility] Comment on above: Performed By: #### L NANCY MONDRAGON LIPA, AMY #### [facility] [address] [place] [address] Dr. Julia Velasquez CULTURE BLOODon 12-11-2022 Microscopic examination of blood, culture Culture Observations: NO GROWTH AT 5 DAYS. Normal [facility] Comment on above: Performed By: #### C MP #### [facility] [address] [place] [address] Dr. Julia Velasquez Microscopic examination of blood, culture Culture Observations: NO GROWTH AT 5 DAYS. Normal [facility] Comment on above: Performed By: #### C MP #### [facility] [address] [place] [address] Dr. Julia Velasquez PROF 14(COMP METB)on 023 Albumin [Mass/Vol] 1.9 g/dL Critically low 3.4-5.0 [facility] Comment on above: Performed By: #### C MP #### [facility] [address] [place] [address] Dr. Julia Velasquez Albumin/Globulin [Mass ratio] 0.5 {ratio} Normal [facility] Comment on above: Performed By: #### C MP #### [facility] [address] [place] [address] Dr. Julia Velasquez ALP [Catalytic activity/Vol] 94 U/L Normal 46-116 [facility] Comment on above: Performed By: #### C MP #### [facility] [address] [place] [address] Dr. Julia Velasquez ALT [Catalytic activity/Vol] 34 U/L Normal 14-59 [facility] Comment on above: Performed By: #### C MP #### [facility] [address] [place], [place] [id number] Dr. Julia Velasquez Anion gap [Moles/Vol] 19.9 mmol/L Normal [facility] Comment on above: Performed By: #### C MP #### [facility] [address] [address] [address] Julia Velasquez AST [Catalytic activity/Vol] 82 U/L Critically high 15-37 [facility] Comment on above: Performed By: #### C MP #### [facility] [address] [address] [address] Julia Velasquez Bilirubin [Mass/Vol] 3.0 mg/dL Critically high 0.2-1.0 [facility] Comment on above: Performed By: #### C MP #### [facility] [address] [place] [address] Dr. Julia Velasquez Calcium [Mass/Vol] 8.2 mg/dL Critically low 8.5-10.1 Th [facility] Comment on above: Performed By: #### C MP #### [facility] [address] [place] [address] Dr. Julia Velasquez Chloride [Moles/Vol] 112 mmol/L Critically high 98-107 [facility] Comment on above: Performed By: #### C MP #### [facility] [address] [place] [address] Dr. Julia Velasquez CO2 [Moles/Vol] 18.7 mmol/L Critically low 21.0-32.0 [facility] Comment on above: Performed By: #### C MP #### [facility] [address] [place] [address] Dr. Julia Velasquez Creatinine [Mass/Vol] 1.75 mg/dL Critically high 0.55-1.02 [facility] Comment on above: Performed By: #### C MP #### [facility] [address] [place] [address] Dr. Julia Velasquez EGFR-AF SIERRA LEONEAN 34 mL/min/1.73m2 Critically low >=60 [facility] Comment on above: Performed By: #### C MP #### [facility] [address] [place] [address] Dr. Julia Velasquez EGFR-NON AF SIERRA LEONEAN 28 mL/min/1.73m2 Critically low >=60 [facility] Comment on above: Performed By: #### C MP #### [facility] [address] [address] [address] Julia Velasquez Globulin (S) [Mass/Vol] 3.6 g/dL Normal [facility] Comment on above: Performed By: #### C MP #### [facility] [address] [address] [address] Julia Velasquez Glucose [Mass/Vol] 95 mg/dL Normal 74-106 [facility] Comment on above: Performed By: #### C MP #### [facility] [address] [place] [address] Dr. Julia Velasquez Potassium [Moles/Vol] 4.6 mmol/L Normal 3.5-5.1 [facility] Comment on above: Performed By: #### C MP #### [facility] [address] [place] [address] Dr. Julia Velasquez Protein [Mass/Vol] 5.5 g/dL Critically low 6.4-8.[address] [facility] Comment on above: Performed By: #### C MP #### [facility] [address] [place] [address] Dr. Julia Velasquez Sodium [Moles/Vol] 146 mmol/L Critically high 136-145 [facility] Comment on above: Performed By: #### C MP #### [facility] [address] [address] [address] Julia Velasquez Urea nitrogen [Mass/Vol] 58.0 mg/dL Critically high 7.0-18.0 [facility] Comment on above: Performed By: #### C MP #### [facility] [address] [place] [address] Dr. Julia Velasquez Urea nitrogen/Creatinine [Mass ratio] 33.1 mg/mg Normal [facility] Comment on above: Performed By: #### C MP #### [facility] [address] [place] [address] Dr. Julia Velasquez XR CHEST 12-11-2022 XR [...] BUCKY CRAIG Date: 2022-12-11 11:[address] [facility] CBC W MANUAL DIFFon 12-11-19 23 ATYPICAL LYMPH # 0.18 103/ul Normal [facility] Comment on above: Performed By: #### C BCMAN #### [facility] [address] [address] [address] Julia Velasquez ATYPICAL LYMPH % 1 % Normal [facility] Comment on above: Performed By: #### C BCMAN #### [facility] [address] [address] [address] Julia Velsaquez BAND # 0.0 103/ul Normal 0.0-0.[address] [facility] Comment on above: Performed By: #### C BCMAN #### [facility] [address] [address] [address] Julia Velasquez BAND % 0 % Normal 0-[address] [facility] Comment on above: Performed By: #### C BCMAN #### [facility] [address] [address] [address] Julia Velasquez BASOM # 0.00 103/ul Normal 0.00-0.[address] [facility] Comment on above: Performed By: #### C BCMAN #### [facility] [address] [address] [address] Julia Velasquez BASOM % 0.0 % Critically low 0.2-2.0 The [facility] Comment on above: Performed By: #### C BCMAN #### [facility] [address] [address] [address] Julia Velasquez BLAST # Normal [facility] Comment on above: Performed By: #### C BCMAN #### [facility] [address] [address] [address] Julia Velasquez BLAST % Normal [facility] Comment on above: Performed By: #### C BCMAN #### [facility] [address] [address] [address] Julia Velasquez CORRECTED WBC Normal 4.0-11.0 [facility] Comment on above: Performed By: #### C BCJACKLYN #### [facility] [address] [place] [address] Dr. Julia Velasquez EOS # 0.00 103/ul Normal 0.00-0.70 [facility] Comment on above: Performed By: #### C BCJACKLYN #### [facility] [address] [place] [address] Dr. Julia Velasquez EOS% 0.0 % Critically low 0.9-7.0 [facility] Comment on above: Performed By: #### C BRYNN #### [facility] [address] [place] [address] Dr. Jluia Velasquez HCT 31.8 % Critically low 36.0-48.0 [facility] Comment on above: Performed By: #### C BCMAN #### [facility] [address] [place] [address] Dr. Julia Velasquez HGB 10.4 g/dl Critically low 12.0-16.0 [facility] Comment on above: Performed By: #### C BCMAN #### [facility] [address] [place] [address] Dr. Julia Velasquez LYMPHM # 0.35 103/ul Critically low 1.20-3.80 [facility] Comment on above: Performed By: #### C BCJACKLYN #### [facility] [address] [address] [address] Julia Velasquez LYMPHM% 2.0 % Critically low 20.5-60.0 [facility] Comment on above: Performed By: #### C BRYNN #### [facility] [address] [address] [address] Julia Velasquez MCH 29.3 pg Normal 26.7-34.[address] [facility] Comment on above: Performed By: #### C BRYNN #### [facility] [address] [place] [address] Dr. Julia Velasquez MCHC 32.7 g/dl Normal 29.9-35.[address] [facility] Comment on above: Performed By: #### C BRYNN #### [facility] [address] [place] [address] Dr. Julia Velasquez MCV 89.6 fL Normal 81.0-99.0 [facility] Comment on above: Performed By: #### C BRYNN #### [facility] [address] [place] [address] Dr. Julia Velasquez METAMYELOCYTE # Normal [facility] Comment on above: Performed By: #### C BRYNN #### [facility] [address] [place] [address] Dr. Julia Velasquez METAMYELOCYTE % Normal [facility] Comment on above: Performed By: #### C BRYNN #### [facility] [address] [place] [address] Dr. Julia Velasquez MONOM# 0.88 103/ul Critically high 0.30-0.80 [facility] Comment on above: Performed By: #### C BRYNN #### [facility] [address] [place] [address] Dr. Julia Velasquez MONOM% 5.0 % Normal 1.7-12.0 [facility] Comment on above: Performed By: #### C BRYNN #### [facility] [address] [place] [address] Dr. Julia Velasquez MPV 10.6 fL Normal 9.5-13.[address] [facility] Comment on above: Performed By: #### C BCMAN #### [facility] [address] [address] [address] Julia Velasquez MYELOCYTE # Normal [facility] Comment on above: Performed By: #### C BCMAN #### [facility] [address] [address] [address] Julia Velasquez MYELOCYTE % Normal [facility] Comment on above: Performed By: #### C BCMAN #### [facility] [address] [address] [address] Julia Velasquez NRBC Normal [facility] Comment on above: Performed By: #### C BCMAN #### [facility] [address] [address] [address] Julia Velasquez PLT 231 103/ul Normal 150-450 [facility] Comment on above: Performed By: #### C BCJACKLYN #### [facility] [address] [address] [address] Julia Velasquez RBC 3.55 106/ul Critically low 4.20-5.40 [facility] Comment on above: Performed By: #### C BCJACKLYN #### [facility] [address] [place] [address] Dr. Julia Velasquez RDW 15.1 % Critically high 11.0-15.0 [facility] Comment on above: Performed By: #### C BCMAN #### [facility] [address] [address] [address] Julia Velasquez SEG # 16.19 103/ul Critically high 1.40-6.50 [facility] Comment on above: Performed By: #### C BCMAN #### [facility] [address] [address] [address] Julia Velasquez SEG % 92.0 % Critically high 43.0-75.0 [facility] Comment on above: Performed By: #### C BCMAN #### [facility] [address] [address] [address] Julia Velasquez WBC 17.6 103/ul Critically high 4.0-11.0 [facility] Comment on above: Performed By: #### C BCMAN #### [facility] [address] [address] [address] Julia Velasquez FERRITINon 12-10-2022 Ferritin [Mass/Vol] 450.0 ng/mL Critically high 8.0-252.0 [facility] Comment on above: Performed By: #### C MP #### [facility] [address] [place] [address] Dr. Julia Velasquez IRON AND TIBCon 12-10-2022 % SATURATION 5.6 % Normal [facility] Comment on above: Performed By: #### C MP #### [facility] [address] [place] [address] Dr. Julia Velasquez Iron [Mass/Vol] 11.0 ug/dL Critically low 50.0-170.0 [facility] Comment on above: Performed By: #### C MP #### [facility] [address] [place] [address] Dr. Julia Velasquez TIBC DIRECT 195.0 ug/dL Critically low 250.0-450.0 [facility] Comment on above: Performed By: #### C MP #### [facility] [address] [place] [address] Dr. Julia Velasquez PROF 14(COMP METB)on 023 Albumin [Mass/Vol] 2.0 g/dL Critically low 3.4-5.0 [facility] Comment on above: Performed By: #### C MP #### [facility] [address] [place] [address] Dr. Julia Velasquez Albumin/Globulin [Mass ratio] 0.4 {ratio} Normal [facility] Comment on above: Performed By: #### C MP #### [facility] [address] [place] [address] Dr. Julia Velasquez ALP [Catalytic activity/Vol] 87 U/L Normal 46-116 [facility] Comment on above: Performed By: #### C MP #### [facility] [address] [place] [address] Dr. Julia Velasquez ALT [Catalytic activity/Vol] 32 U/L Normal 14-59 [facility] Comment on above: Performed By: #### C MP #### [facility] [address] [address] [address] Julia Velasquez Anion gap [Moles/Vol] 16.2 mmol/L Normal [facility] Comment on above: Performed By: #### C MP #### [facility] [address] [address] [address] Julia Velasquez AST [Catalytic activity/Vol] 50 U/L Critically high 15-37 [facility] Comment on above: Performed By: #### C MP #### [facility] [address] [address] [address] Julia Velasquez Bilirubin [Mass/Vol] 1.7 mg/dL Critically high 0.2-1.0 [facility] Comment on above: Performed By: #### C MP #### [facility] [address] [address] [address] Julia Velasquez Calcium [Mass/Vol] 8.6 mg/dL Normal 8.5-10.1 [facility] Comment on above: Performed By: #### C MP #### [facility] [address] [address] [address] Julia Velasquez Chloride [Moles/Vol] 107 mmol/L Normal 98-107 [facility] Comment on above: Performed By: #### C MP #### [facility] [address] [address] [address] Julia Velasquez CO2 [Moles/Vol] 22.1 mmol/L Normal 21.0-32.0 [facility] Comment on above: Performed By: #### C MP #### [facility] [address] [address] [address] Julia Velasquez Creatinine [Mass/Vol] 2.38 mg/dL Critically high 0.55-1.02 [facility] Comment on above: Performed By: #### C MP #### [facility] [address] [address] [address] Julia Velasquez EGFR-AF SIERRA LEONEAN 24 mL/min/1.73m2 Critically low >=60 [facility] Comment on above: Performed By: #### C MP #### [facility] [address] [address] [address] Julia Velasquez EGFR-NON AF SIERRA LEONEAN 20 mL/min/1.73m2 Critically low >=60 [facility] Comment on above: Performed By: #### C MP #### [facility] [address] [address] [address] Julia Velasquez Globulin (S) [Mass/Vol] 4.7 g/dL Normal [facility] Comment on above: Performed By: #### C MP #### [facility] [address] [address] [address] Julia Velasquez Glucose [Mass/Vol] 116 mg/dL Critically high 74-106 [facility] Comment on above: Performed By: #### C MP #### [facility] [address] [address] [address] Julia Velasquez Potassium [Moles/Vol] 3.3 mmol/L Critically low 3.5-5.1 [facility] Comment on above: Performed By: #### C MP #### [facility] [address] [address] [address] Julia Velasquez Protein [Mass/Vol] 6.7 g/dL Normal 6.4-8.2 [facility] Comment on above: Performed By: #### C MP #### [facility] [address] [address] [address] Julia Velasquez Sodium [Moles/Vol] 142 mmol/L Normal 136-145 [facility] Comment on above: Performed By: #### C MP #### [facility] [address] [address] [address] Julia Velasquez Urea nitrogen [Mass/Vol] 57.0 mg/dL Critically high 7.0-18.0 [facility] Comment on above: Performed By: #### C MP #### [facility] [address] [address] [address] Julia Velasquez Urea nitrogen/Creatinine [Mass ratio] 23.9 mg/mg Normal [facility] Comment on above: Performed By: #### C MP #### [facility] [address] [address] [address] Julia Velasquez AMYLASEon 12-09-2022 Amylase [Catalytic activity/Vol] 18 U/L Critically low 25-115 [facility] Comment on above: Performed By: #### L IVER, BMP, LIPA, EDSON #### [facility] [address] [place] [address] Dr. Julia Velasquez CBC W MANUAL DIFFon 12-10-19 23 ATYPICAL LYMPH # Normal [facility] Comment on above: Performed By: #### C MP #### [facility] [address] [address] [address] Julia Velasquez ATYPICAL LYMPH % Normal [facility] Comment on above: Performed By: #### C MP #### [facility] [address] [place] [address] Dr. Julia Velasquez BAND # 0.8 103/ul Critically high 0.0-0.3 [facility] Comment on above: Performed By: #### C MP #### [facility] [address] [place] [address] Dr. Julia Velasquez BAND % 4 % Normal 0-5 [facility] Comment on above: Performed By: #### C MP #### [facility] [address] [place] [address] Dr. Julia Velasquez BASOM # 0.00 103/ul Normal 0.00-0.10 [facility] Comment on above: Performed By: #### C MP #### [facility] [address] [place] [address] Dr. Julia Velasquez BASOM % 0.0 % Critically low 0.2-2.0 [facility] Comment on above: Performed By: #### C MP #### [facility] [address] [place] [address] Dr. Julia Velasquez BLAST # Normal [facility] Comment on above: Performed By: #### C MP #### [facility] [address] [place] [address] Dr. Julia Velasquez BLAST % Normal [facility] Comment on above: Performed By: #### C MP #### [facility] [address] [address] [address] Julia Velasquez CORRECTED WBC Normal 4.0-11.0 [facility] Comment on above: Performed By: #### C MP #### [facility] [address] [address] [address] Julia Velasquez EOS # 0.00 103/ul Normal 0.00-0.70 [facility] Comment on above: Performed By: #### C MP #### [facility] [address] [address] [address] Julia Velasquez EOS% 0.0 % Critically low 0.9-7.0 [facility] Comment on above: Performed By: #### C MP #### [facility] [address] [place] [address] Dr. Julia Velasquez HCT 27.2 % Critically low 36.0-48.0 [facility] Comment on above: Performed By: #### C MP #### [facility] [address] [place] [address] Dr. Julia Velasquez HGB 8.9 g/dl Critically low 12.0-16.0 [facility] Comment on above: Performed By: #### C MP #### [facility] [address] [place] [address] Dr. Julia Velasquez LYMPHM # 0.99 103/ul Critically low 1.20-3.80 [facility] Comment on above: Performed By: #### C MP #### [facility] [address] [place] [address] Dr. Julia Velasquez LYMPHM% 5.0 % Critically low 20.5-60.0 [facility] Comment on above: Performed By: #### C MP #### [facility] [address] [place] [address] Dr. Julia Velasquez MCH 29.3 pg Normal 26.7-34.0 [facility] Comment on above: Performed By: #### C MP #### [facility] [address] [place] [address] Dr. Julia Velasquez MCHC 32.7 g/dl Normal 29.9-35.2 [facility] Comment on above: Performed By: #### C MP #### [facility] [address] [place] [address] Dr. Julia Velasquez MCV 89.5 fL Normal 81.0-99.0 [facility] Comment on above: Performed By: #### C MP #### [facility] [address] [place] [address] Dr. Julia Velasquez METAMYELOCYTE # Normal [facility] Comment on above: Performed By: #### C MP #### [facility] [address] [place] [address] Dr. Julia Velasquez METAMYELOCYTE % Normal [facility] Comment on above: Performed By: #### C MP #### [facility] [address] [place] [address] Dr. Julia Velasquez MONOM# 0.59 103/ul Normal 0.30-0.80 [facility] Comment on above: Performed By: #### C MP #### [facility] [address] [place] [address] Dr. Julia Velasquez MONOM% 3.0 % Normal 1.7-12.0 [facility] Comment on above: Performed By: #### C MP #### [facility] [address] [place] [address] Dr. Julia Velasquez MPV 10.9 fL Normal 9.5-13.5 [facility] Comment on above: Performed By: #### C MP #### [facility] [address] [place] [address] Dr. Julia Velasquez MYELOCYTE # Normal [facility] Comment on above: Performed By: #### C MP #### [facility] [address] [place] [address] Dr. Julia Velasquez MYELOCYTE % Normal [facility] Comment on above: Performed By: #### C MP #### [facility] [address] [place] [address] Dr. Julia Velasquez NRBC Normal [facility] Comment on above: Performed By: #### C MP #### [facility] [address] [address] [address] Julia Velasquez PLT 268 103/ul Normal 150-450 [facility] Comment on above: Performed By: #### C MP #### [facility] [address] [id number] Julia Velasquez RBC 3.04 106/ul Critically low 4.20-5.40 [facility] Comment on above: Performed By: #### C MP #### [facility] [address] [address] [address] Julia Velasquez RDW 15.0 % Normal 11.0-15.0 [facility] Comment on above: Performed By: #### C MP #### [facility] [address] [place] [address] Dr. Julia Velasquez SEG # 17.42 103/ul Critically high 1.40-6.50 [facility] Comment on above: Performed By: #### C MP #### [facility] [address] [place] [address] Dr. Julia Velasquez SEG % 88.0 % Critically high 43.0-75.0 [facility] Comment on above: Performed By: #### C MP #### [facility] [address] [place] [address] Dr. Jluia Velasquez WBC 19.8 103/ul Critically high 4.0-11.0 [facility] Comment on above: Performed By: #### C MP #### [facility] [address] [place] [address] ABD/PELVIS WO CONon [...] RAKESH MANNING Date: 2022-12-09 19:[address] [facility] CT FACIAL BONES WO CONon CT [...] KELVIN MCLAUGHLIN Date: 2022-12-09 20:[address] [facility] Covid-19 PCR (CVDTB)on SARS-CoV-2 (COVID-19) RNA MARIO+probe Ql (Unsp spec) Not detected Normal NOT DETECTED [facility] Comment on above: Result Comment: When [...] for this test is supported by the [place] of [employer] and Human Service's declaration that [...] #### L IVER, BMP, LIPA, EDSON #### [facility] [address] [place] [address] Dr. Julia Velasquez LIPASEon 12-09-2022 Lipase [Catalytic activity/Vol] 86.0 U/L Normal 73.0-393.0 [facility] Comment on above: Performed By: #### L IVER, BMP, LIPA, EDSON #### [facility] [address] [place] [address] Dr. Julia Velasquez LIVER PROFILEon 12-09-2022 Albumin [Mass/Vol] 2.4 g/dL Critically low 3.4-5.0 [facility] Comment on above: Performed By: #### L IVER, BMP, LIPA, EDSON #### [facility] [address] [place] [address] Dr. Julia Velasquez Albumin/Globulin [Mass ratio] 0.5 {ratio} Normal [facility] Comment on above: Performed By: #### L IVER, BMP, LIPA, EDSON #### [facility] [address] [place] [address] Dr. Julia Velasquez ALP [Catalytic activity/Vol] 104 U/L Normal 46-116 [facility] Comment on above: Performed By: #### L IVER, BMP, LIPA, EDSON #### [facility] [address] [place] [address] Dr. Julia Velasquez ALT [Catalytic activity/Vol] 35 U/L Normal 14-59 [facility] Comment on above: Performed By: #### L IVER, BMP, LIPA, EDSON #### [facility] [address] [place] [address] Dr. Julia Velasquez AST [Catalytic activity/Vol] 59 U/L Critically high 15-37 [facility] Comment on above: Performed By: #### L IVER, BMP, LIPA, EDSON #### [facility] [address] [place] [address] Dr. Julia Velasquez BILI, CONJUGATED 1.0 mg/dL Critically high 0.0-0.2 [facility] Comment on above: Performed By: #### L IVER, BMP, LIPA, EDSON #### [facility] [address] [place] [address] Dr. Julia Velasquez Bilirubin [Mass/Vol] 1.9 mg/dL Critically high 0.2-1.0 [facility] Comment on above: Performed By: #### L IVER, BMP, LIPA, EDSON #### [facility] [address] [place] [address] Dr. Julia Velasquez Globulin (S) [Mass/Vol] 5.0 g/dL Normal [facility] Comment on above: Performed By: #### L IVER, BMP, LIPA, EDSON #### [facility] [address] [place] [address] Dr. Julia Velasquez Protein [Mass/Vol] 7.4 g/dL Normal 6.4-8.2 [facility] Comment on above: Performed By: #### L IVER, BMP, LIPA, EDSON #### [facility] [facility] [address] [place] [address] Dr. Julia Velasquez OCC BLD IMMUNOASSAYon 2022 OCCULT BLOOD Negative Normal NEGATIVE [facility] Comment on above: Performed By: #### L IVER, BMP, LIPA, EDSON #### [facility] [address] [place] [address] Dr. Julia Velasquez PROF CHEM 8 (BAS METB)on Anion gap [Moles/Vol] 18.8 mmol/L Normal [facility] Comment on above: Performed By: #### L IVER, BMP, LIPA, EDSON #### [facility] [address] [place] [address] Dr. Julia Velasquez Calcium [Mass/Vol] 9.2 mg/dL Normal 8.5-10.1 [facility] Comment on above: Performed By: #### L IVER, BMP, LIPA, EDSON #### [facility] [address] [place] [address] Dr. Julia Velasquez Chloride [Moles/Vol] 100 mmol/L Normal 98-107 [facility] Comment on above: Performed By: #### L IVER, BMP, LIPA, EDSON #### [facility] [address] [place] [address] Dr. Julia Velasquez CO2 [Moles/Vol] 24.3 mmol/L Normal 21.0-32.0 [facility] Comment on above: Performed By: #### L IVER, BMP, LIPA, EDSON #### [facility] [address] [place] [address] Dr. Julia Velasquez Creatinine [Mass/Vol] 2.98 mg/dL Critically high 0.55-1.02 [facility] Comment on above: Performed By: #### L IVER, BMP, LIPA, EDSON #### [facility] [address] [place] [address] Dr. Julia Velasquez EGFR-AF SIERRA LEONEAN 18 mL/min/1.73m2 Critically low >=60 [facility] Comment on above: Performed By: #### L IVER, BMP, LIPA, EDSON #### [facility] [address] [place] [address] Dr. Julia Velasquez EGFR-NON AF SIERRA LEONEAN 15 mL/min/1.73m2 Critically low >=60 [facility] Comment on above: Performed By: #### L IVER, BMP, LIPA, EDSON #### [facility] [address] [place] [address] Dr. Julia Velasquez Glucose [Mass/Vol] 116 mg/dL Critically high 74-106 [facility] Comment on above: Performed By: #### L IVER, BMP, LIPA, EDSON #### [facility] [address] [place] [address] Dr. Julia Velasquez Potassium [Moles/Vol] 4.1 mmol/L Normal 3.5-5.1 [facility] Comment on above: Performed By: #### L IVER, BMP, LIPA, EDSON #### [facility] [address] [place] [address] Dr. Julia Velasquez Sodium [Moles/Vol] 139 mmol/L Normal 136-145 [facility] Comment on above: Performed By: #### L IVER, BMP, LIPA, EDSON #### [facility] [address] [place] [address] Dr. Julia Velasquez Urea nitrogen [Mass/Vol] 57.0 mg/dL Critically high 7.0-18.0 [facility] Comment on above: Performed By: #### L IVER, BMP, LIPA, EDSON #### [facility] [address] [place] [address] Dr. Julia Velasquez Urea nitrogen/Creatinine [Mass ratio] 19.1 mg/mg Normal [facility] Comment on above: Performed By: #### L IVER, BMP, LIPA, EDSON #### [facility] [address] [place] [address] Dr. Julia Velasquez CBC AUTO DIFFon 08-26-2022 BASO # 0.0 103/ul Normal 0.0-0.1 [facility] Comment on above: Performed By: #### L IVER, BMP, LIPA, EDSON #### [facility] [address] [place] [address] Dr. Julia Velasquez Basophils/100 WBC (Bld) 0.6 % Normal 0.2-2.0 [facility] Comment on above: Performed By: #### L IVER, BMP, LIPA, EDSON #### [facility] [address] [place] [address] Dr. Julia Velasquez EO # 0.3 103/ul Normal 0.0-0.7 [facility] Comment on above: Performed By: #### L IVER, BMP, LIPA, EDSON #### [facility] [address] [place] [address] Dr. Julia Velasquez Eosinophils/100 WBC (Bld) 4.9 % Normal 0.9-7.0 [facility] Comment on above: Performed By: #### L IVER, BMP, LIPA, EDSON #### [facility] [address] [place] [address] Dr. Julia Velasquez Erythrocyte distribution width (RBC) [Ratio] 13.2 % Normal 11.0-15.0 [facility] Comment on above: Performed By: #### L IVER, BMP, LIPA, EDSON #### [facility] [address] [place] [address] Dr. Julia Velasquez Hematocrit (Bld) [Volume fraction] 40.9 % Normal 36.0-48.0 [facility] Comment on above: Performed By: #### L IVER, BMP, LIPA, EDSON #### [facility] [address] [place] [address] Dr. Julia Velasquez Hemoglobin (Bld) [Mass/Vol] 13.0 g/dL Normal 12.0-16.0 [facility] Comment on above: Performed By: #### L IVER, BMP, LIPA, EDSON #### [facility] [address] [place] [address] Dr. Julia Velasquez IG # 0.05 10e3/ul Critically high 0.00-0.03 [facility] Comment on above: Performed By: #### L IVER, BMP, LIPA, EDSON #### [facility] [address] [place] [address] Dr. Julia Velasquez IG % 1.0 % Critically high 0.0-0.5 [facility] Comment on above: Performed By: #### L IVER, BMP, LIPA, EDSON #### [facility] [address] [place] [address] Dr. Julia Velasquez LYMPH # 1.3 103/ul Normal 1.2-3.8 [facility] Comment on above: Performed By: #### L IVER, BMP, LIPA, EDSON #### [facility] [address] [place] [address] Dr. Julia Velasquez Lymphocytes/100 WBC (Bld) 26.1 % Normal 20.5-60.0 [facility] Comment on above: Performed By: #### L IVER, BMP, LIPA, EDSON #### [facility] [address] [place] [address] Dr. Julia Velasquez MANUAL DIFF REQ NO Normal [facility] Comment on above: Performed By: #### L IVER, BMP, LIPA, EDSON #### [facility] [address] [place] [address] Dr. Julia Velasquez MCH (RBC) [Entitic mass] 29.6 pg Normal 26.7-34.[address] [facility] Comment on above: Performed By: #### L IVER, BMP, LIPA, EDSON #### [facility] [address] [place] [address] Dr. Julia Velasquez MCHC (RBC) [Mass/Vol] 31.8 g/dL Normal 29.9-35.[address] [facility] Comment on above: Performed By: #### L IVER, BMP, LIPA, EDSON #### [facility] [address] [place] [address] Dr. Julia Velasquez MCV (RBC) [Entitic vol] 93.2 fL Normal 81.0-99.0 [facility] Comment on above: Performed By: #### L IVER, BMP, LIPA, EDSON #### [facility] [address] [place] [address] Dr. Julia Velasquez MONO # 0.4 103/ul Normal 0.3-0.[address] [facility] Comment on above: Performed By: #### L IVER, BMP, LIPA, EDSON #### [facility] [address] [place] [address] Dr. Julia Velasquez Monocytes/100 WBC (Bld) 7.7 % Normal 1.7-12.0 [facility] Comment on above: Performed By: #### L IVER, BMP, LIPA, EDSON #### [facility] [address] [place] [address] Dr. Julia Velasquez NEUT # 3.0 103/ul Normal 1.4-6.5 [facility] Comment on above: Performed By: #### L IVER, BMP, LIPA, EDSON #### [facility] [address] [place] [address] Dr. Julia Velasquez Neutrophils/100 WBC (Bld) 59.7 % Normal 43.0-75.0 [facility] Comment on above: Performed By: #### L IVER, BMP, LIPA, EDSON #### [facility] [address] [place] [address] Dr. Julia Velasquez Platelet mean volume (Bld) [Entitic vol] 10.6 fL Normal 9.5-13.5 [facility] Comment on above: Performed By: #### L IVER, BMP, LIPA, EDSON #### [facility] [address] [address] [address] Julia Velasquez PLT 248 103/ul Normal 150-450 [facility] Comment on above: Performed By: #### L IVER, BMP, LIPA, EDSON #### [facility] [address] [place] [address] Dr. Julia Velasquez RBC 4.39 106/ul Normal 4.20-5.40 [facility] Comment on above: Performed By: #### L IVER, BMP, LIPA, EDSON #### [facility] [address] [place] [address] Dr. Julia Velasquez WBC 5.1 103/ul Normal 4.0-11.0 [facility] Comment on above: Performed By: #### L IVER, BMP, LIPA, EDSON #### [facility] [address] [place] [address] Dr. Julia Velasquez LIPID PROFILEon 08-26-2022 CHOL-HDL RATIO NORM SEE BELOW Normal [facility] Comment on above: Result Comment: 3.3 - 4.4 LOW RISK 4.4 - 7.1 AVERAGE RISK 7.1 - 11.0 MODERATE RISK >11.0 HIGH RISK Performed By: #### L IVER, BMP, LIPA, EDSON #### [facility] [address] [place] [address] Dr. Julia Velasquez Cholesterol [Mass/Vol] 177 mg/dL Normal <=200 [facility] Comment on above: Performed By: #### L IVER, BMP, LIPA, EDSON #### [facility] [address] [place] [address] Dr. Julia Velasquez Cholesterol in HDL [Mass/Vol] 56 mg/dL Normal 40-60 [facility] Comment on above: Performed By: #### L IVER, BMP, LIPA, EDSON #### [facility] [address] [place] [address] Dr. Julia Velasquez Cholesterol in LDL [Mass/Vol] 99.4 mg/dL Normal [facility] Comment on above: Performed By: #### L IVER, BMP, LIPA, EDSON #### [facility] [address] [address] [address] Julia Velasquez Cholesterol.total/C holesterol in HDL [Mass ratio] 3.2 {ratio} Normal [facility] Comment on above: Performed By: #### L IVER, BMP, LIPA, EDSON #### [facility] [address] [place] [address] Dr. Julia Velasquez HDL NORMAL > or = 60 mg/dl - LO W CARDIOVASCULAR RISK <40 mg/dl - HIGH CARDIOVASCULAR RISK Normal [facility] Comment on above: Performed By: #### L IVER, BMP, LIPA, EDSON #### [facility] [address] [place] [address] Dr. Julia Velasquez LDL CALC NORMAL SEE BELOW Normal [facility] Comment on above: Result Comment: <100 mg/dl OPTIMAL 100 - 129 mg/dl NEAR OR ABOVE OPTIMAL 130 - 159 mg/dl BORDERLINE HIGH 160 - 189 mg/dl HIGH >190 mg/dl VERY HIGH Performed By: #### L IVER, BMP, LIPA, EDSON #### [facility] [address] [place] [address] Dr. Julia Velasquez Triglyceride [Mass/Vol] 108 mg/dL Normal <=[address] [facility] Comment on above: Performed By: #### L IVER, BMP, LIPA, EDSON #### [facility] [address] [place] [address] Dr. Julia Velasquez VLDL CALC 21.6 mg/dL Normal [facility] Comment on above: Performed By: #### L IVER, BMP, LIPA, EDSON #### [facility] [address] [place] [address] Dr. Julia Velasquez PROF CHEM 8 (BAS METB)on Anion gap [Moles/Vol] 11.5 mmol/L Normal [facility] Comment on above: Performed By: #### L IVER, BMP, LIPA, EDSON #### [facility] [address] [place] [address] Dr. Julia Velasquez Calcium [Mass/Vol] 9.3 mg/dL Normal 8.5-10.1 [facility] Comment on above: Performed By: #### L IVER, BMP, LIPA, EDSON #### [facility] [address] [address] [address] Julia Velasquez Chloride [Moles/Vol] 104 mmol/L Normal 98-107 [facility] Comment on above: Performed By: #### L IVER, BMP, LIPA, EDSON #### [facility] [address] [place] [address] Dr. Julia Velasquez CO2 [Moles/Vol] 30.5 mmol/L Normal 21.0-32.0 [facility] Comment on above: Performed By: #### L IVER, BMP, LIPA, EDSON #### [facility] [address] [place] [address] Dr. Julia Velasquez Creatinine [Mass/Vol] 1.09 mg/dL Critically high 0.55-1.02 [facility] Comment on above: Performed By: #### L IVER, BMP, LIPA, EDSON #### [facility] [address] [address] [address] Julia Velasquez EGFR-AF SIERRA LEONEAN 59 mL/min/1.73m2 Critically low >=60 [facility] Comment on above: Performed By: #### L IVER, BMP, LIPA, EDSON #### [facility] [address] [place] [address] Dr. Julia Velasquez EGFR-NON AF SIERRA LEONEAN 48 mL/min/1.73m2 Critically low >=60 [facility] Comment on above: Performed By: #### L IVER, BMP, LIPA, EDSON #### [facility] [address] [place] [address] Dr. Julia Velasquez Glucose [Mass/Vol] 89 mg/dL Normal 74-106 [facility] Comment on above: Performed By: #### L IVERNANCY, LIPA, EDSON #### [facility] [address] [address] [address] Julia Velasquez Potassium [Moles/Vol] 4.0 mmol/L Normal 3.5-5.1 [facility] Comment on above: Performed By: #### L IVERNANCY, LIPA, EDSON #### [facility] [address] [place] [address] Dr. Julia Velasquez Sodium [Moles/Vol] 142 mmol/L Normal 136-145 [facility] Comment on above: Performed By: #### L IVER BMP, LIPA, EDSON #### [facility] [address] [place] [address] Dr. Julia Velasquez Urea nitrogen [Mass/Vol] 16.0 mg/dL Normal 7.0-18.0 [facility] Comment on above: Performed By: #### L IVER BMP, LIPA, EDSON #### [facility] [address] [place] [address] Dr. Julia Velasquez Urea nitrogen/Creatinine [Mass ratio] 14.7 mg/mg Normal [facility] Comment on above: Performed By: #### L IVER BMP, LIPA, EDSON #### [facility] [address] [place] [address] Dr. Julia Velasquez XR DEXA BONE DENSITYon [...] by: BUCKY CRAIG Date: 2022-08-25 14:10 Normal [facility] Vital Signs Date Time Vital Sign Value Performing Clinician Facility 05-17-2024 11:03-0400 Body height 166.37 cm [facility] 05-17-2024 11:03-0400 Body mass index (BMI) [Ratio] 21.4 kg/m2 [facility] 05-17-2024 11:03-0400 Body weight 59.47 kg [facility] 05-17-2024 11:03-0400 Diastolic blood pressure 79 mm[Hg] [facility] 05-17-2024 11:03-0400 Heart rate 57 /min [facility] 05-17-2024 11:03-0400 Respiratory rate 12 /min [facility] 05-17-2024 11:03-0400 Systolic blood pressure 136 mm[Hg] [facility] 03-09-2024 11:18-0400 Body height 166.37 cm [facility] 03-09-2024 11:18-0400 Body mass index (BMI) [Ratio] 21.8 kg/m2 [facility] 03-09-2024 11:18-0400 Body weight 60.44 kg [facility] 03-09-2024 11:18-0400 Diastolic blood pressure 73 mm[Hg] [facility] 03-09-2024 11:18-0400 Heart rate 68 /min [facility] 03-09-2024 11:18-0400 Respiratory rate 12 /min [facility] 03-09-2024 11:18-0400 Systolic blood pressure 128 mm[Hg] [facility] 11-25-2023 11:17-0400 Body height 166.37 cm [facility] 11-25-2023 11:17-0400 Body mass index (BMI) [Ratio] 23.3 kg/m2 [facility] 11-25-2023 11:17-0400 Body weight 64.63 kg [facility] 11-25-2023 11:17-0400 Diastolic blood pressure 72 mm[Hg] [facility] 11-25-2023 11:17-0400 Heart rate 66 /min [facility] 11-25-2023 11:17-0400 Respiratory rate 12 /min [facility] 11-25-2023 11:17-0400 Systolic blood pressure 127 mm[Hg] [facility] 10-14-2023 11:20-0500 Body mass index (BMI) [Ratio] 24.96 kg/m2 Shivam Ponce MD Work Phone: [facility] 10-14-2023 11:20-0500 Body weight 63.41 kg Shivam Ponce MD Work Phone: [facility] 10-14-2023 11:20-0500 Diastolic blood pressure 82 mm[Hg] Shivam Ponce MD Work Phone: [facility] 10-14-2023 11:20-0500 Systolic blood pressure 130 mm[Hg] Shivam Ponce MD Work Phone: [facility] 08-25-2023 15:00-0500 Body weight 63.04 kg [facility] 08-25-2023 15:00-0500 Diastolic blood pressure 64 mm[Hg] [facility] 08-25-2023 15:00-0500 Systolic blood pressure 114 mm[Hg] [facility] 08-25-2023 11:15-0500 Body height 166.37 cm Doni Rivera Other [facility] 08-25-2023 11:15-0500 Body mass index (BMI) [Ratio] 22.61 kg/m2 Doni Rivera Other [facility] [employer] Other 08-25-2023 11:15-0500 Body weight 62.6 kg Doni Rivera Other [id number] [facility] [employer] Other 08-25-2023 11:15-0500 Diastolic blood pressure 73 mm[Hg] Doni Rivera Other [id number] [facility] [employer] Other 08-25-2023 11:15-0500 Systolic blood pressure 117 mm[Hg] Doni Rivera Other [employer] Other 05-27-2023 10:00-0400 Body height 166.37 cm Kyle Ball Other [employer] Other 05-27-2023 10:00-0400 Body mass index (BMI) [Ratio] 22.74 kg/m2 Kyle Ball Other [employer] Other 05-27-2023 10:00-0400 Body weight 62.96 kg Kyle Ball Other [employer] Other 05-27-2023 10:00-0400 Diastolic blood pressure 72 mm[Hg] Kyle Ball Other [employer] Other 05-27-2023 10:00-0400 Respiratory rate 12 /min Kyle Ball Other [employer] Other 05-27-2023 10:00-0400 Systolic blood pressure 131 mm[Hg] Kyle Ball Other [employer] Other 02-10-2023 10:30-0400 Body height 166.37 cm Kyle Ball Other [employer] Other 02-10-2023 10:30-0400 Body mass index (BMI) [Ratio] 24.55 kg/m2 Kyle Ball Other [employer] Other 02-10-2023 10:30-0400 Body weight 67.95 kg Kyle Ball Other [employer] Other 02-10-2023 10:30-0400 Diastolic blood pressure 78 mm[Hg] Kyle Ball Other [employer] Other 02-10-2023 10:30-0400 Respiratory rate 12 /min Kyle Ball Other [employer] Other 02-10-2023 10:30-0400 Systolic blood pressure 111 mm[Hg] Kyle Ball Other [employer] Other 01-01-2023 11:30-0400 Body height 166.37 cm Kyle Ball Other [employer] Other 01-01-2023 11:30-0400 Body mass index (BMI) [Ratio] 23.01 kg/m2 Kyle Ball Other [employer] Other 01-01-2023 11:30-0400 Body weight 63.69 kg Kyle Ball Other [employer] Other 01-01-2023 11:30-0400 Diastolic blood pressure 77 mm[Hg] Kyle Ball Other [employer] Other 01-01-2023 11:30-0400 Respiratory rate 12 /min Kyle Ball Other [employer] Other 01-01-2023 11:30-0400 Systolic blood pressure 124 mm[Hg] Kyle Ball Other [employer] Other 12-17-2022 11:15-0400 Body height 166.37 cm Kyle Ball Other [employer] Other 12-17-2022 11:15-0400 Body mass index (BMI) [Ratio] 25.3 kg/m2 Kyle Ball Other [employer] Other 12-17-2022 11:15-0400 Body weight 70.04 kg Kyle Ball Other [employer] Other 12-17-2022 11:15-0400 Diastolic blood pressure 70 mm[Hg] Kyle Ball Other [employer] Other 12-17-2022 11:15-0400 Respiratory rate 12 /min Kyle Ball Other [employer] Other 12-17-2022 11:15-0400 Systolic blood pressure 168 mm[Hg] Kyle Ball Other [employer] Other 11-17-2022 12:00-0400 Body height 166.37 cm Kyle Ball Other [employer] Other 11-17-2022 12:00-0400 Body mass index (BMI) [Ratio] 24.15 kg/m2 Kyle Ball Other [employer] Other 11-17-2022 12:00-0400 Body weight 66.86 kg Kyle Ball Other [employer] Other 11-17-2022 12:00-0400 Diastolic blood pressure 74 mm[Hg] Kyle Ball Other [employer] Other 11-17-2022 12:00-0400 Respiratory rate 12 /min Kyle Ball Other [employer] Other 11-17-2022 12:00-0400 Systolic blood pressure 133 mm[Hg] Kyle Ball Other [employer] Other 11-14-2021 15:45-0500 Body height 166.37 cm Doni Rivera Other [employer] Other 11-14-2021 15:45-0500 Body mass index (BMI) [Ratio] 23.6 kg/m2 Doni Rivera Other [facility] [employer] Other 11-14-2021 15:45-0500 Body weight 65.32 kg Doni Rivera Other [employer] Other Encounters Encounter Date Encounter Type Care Provider Facility Start: 05-17-2024 End: 05-17-2024 ambulatory [facility] Work Phone: Start: 05-17-2024 End: 05-17-2024 Patient encounter procedure [facility] Work Phone: Start: 05-11-2024 End: 05-11-2024 ambulatory [facility] Work Phone: Start: 05-11-2024 End: 05-11-2024 Patient encounter procedure [facility] Work Phone: Start: 05-03-2024 End: 05-03-2024 ambulatory KULWINDER DAO Not Available Start: 04-12-2024 End: 04-12-2024 ambulatory [facility] Work Phone: Start: 04-12-2024 End: 04-12-2024 Patient encounter procedure [facility] Work Phone: Start: 03-30-2024 End: 03-30-2024 ambulatory SHIVAM PONCE Not Available Start: 03-09-2024 End: 03-09-2024 ambulatory [facility] Work Phone: Start: 03-09-2024 End: 03-09-2024 Patient encounter procedure [facility] Work Phone: Start: 02-03-2024 End: 02-03-2024 ambulatory [facility] Work Phone: Start: 02-03-2024 End: 02-03-2024 Patient encounter procedure [facility] Work Phone: Start: 01-20-2024 End: 01-20-2024 ambulatory SHIVAM PONCE Not Available Start: 12-28-2023 End: 12-28-2023 ambulatory [facility] Work Phone: Start: 12-28-2023 End: 12-28-2023 Patient encounter procedure [facility] Work Phone: Start: 11-25-2023 End: 11-25-2023 ambulatory [facility] Work Phone: Start: 11-25-2023 End: 11-25-2023 Patient encounter procedure [facility] Work Phone: Start: 11-16-2023 End: 11-16-2023 ambulatory MEL BELTREMAGNOLIAPavan Not Available Start: 10-21-2023 End: 10-21-2023 ambulatory [facility] Work Phone: Start: 10-21-2023 End: 10-21-2023 Patient encounter procedure [facility] Work Phone: Start: 10-14-2023 End: 10-14-2023 Office outpatient visit 25 minutes Shivam Ponce MD Work Phone: [facility] Comment on above: Brachial plexus neur opathy (Primary Dx); Multiple sclerosis ([facility]) Start: 10-14-2023 End: 10-14-2023 ambulatory SHIVAM PONCE Not Available Start: 10-13-2023 Chart abstracting Shivam schulz MD Work Phone: [id number] Start: 09-29-2023 End: 09-29-2023 ambulatory Kyle Gottlieb Other [employer] Other Start: 09-29-2023 Telephone encounter Kyle Gottlieb [facility] Start: 09-17-2023 End: 09-17-2023 ambulatory Kyle Gottlieb Other [employer] Other Start: 09-17-2023 Office outpatient visit 15 minutes Kyle Gottlieb [facility] Start: 09-17-2023 End: 09-17-2023 Patient encounter procedure [facility] Work Phone: Start: 09-15-2023 End: 09-15-2023 ambulatory Kyle Gottlieb Other [employer] Other Start: 09-15-2023 Nursing evaluation o f patient and report Kyle Gottlieb [facility] Start: 08-28-2023 End: 08-28-2023 ambulatory Tonya Emilyaram Other [employer] Other Start: 08-28-2023 Nursing evaluation o f patient and report Tonya Hunter [facility] Start: 08-28-2023 Telephone encounter Tonya Mattomidbelkis her [facility] Start: 08-26-2023 End: 08-26-2023 ambulatory Tonya Hunter Other [employer] Other Start: 08-26-2023 Telephone encounter Tonya Strong her [facility] Start: 08-25-2023 End: 08-25-2023 ambulatory Doni Rivera Other [employer] Other Start: 08-25-2023 Patient encounter procedure Doni Rivera [facility] Start: 08-25-2023 End: 08-25-2023 Patient encounter procedure [facility] Work Phone: Start: 08-13-2023 End: 08-13-2023 ambulatory Kyle Gottlieb Other [employer] Other Start: 08-13-2023 Nursing evaluation o f patient and report Kyle Gottlieb [facility] Start: 08-10-2023 End: 08-10-2023 ambulatory SHIVAM PONCE Not Available Start: 07-09-2023 End: 07-09-2023 ambulatory Kyle Gottlieb Other [employer] Other Start: 07-09-2023 Nursing evaluation o f patient and report Kyle Gottlieb [facility] Start: 06-19-2023 End: 06-19-2023 ambulatory Doni Lundbergtraygen Other [employer] Other Start: 06-19-2023 Telephone encounter Doni Tamikasarina [facility] Start: 06-18-2023 End: 06-18-2023 ambulatory Doni Tamikatrayy Other [employer] Other Start: 06-18-2023 Telephone encounter Doni Tamikasarina [facility] Start: 06-08-2023 End: 06-08-2023 ambulatory Kyle Gottlieb Other Crew Other Start: 06-08-2023 Nursing evaluation o f patient and report Kyle Gottlieb [facility] Start: 05-29-2023 End: 05-29-2023 ambulatory Kyle Gottlieb Other Crew Other Start: 05-29-2023 Telephone encounter Kyle Gottlieb [facility] Start: 05-27-2023 End: 05-27-2023 ambulatory Kyle Gottlieb Other Crew Other Start: 05-27-2023 Patient encounter procedure Kyle Gottlieb [facility] Start: 05-13-2023 End: 05-13-2023 ambulatory Kyle Gottlieb Facility:[facility] Start: 05-13-2023 End: 05-13-2023 ambulatory DO Kyle Gottlieb Work Phone: [facility] Work Phone: Start: 05-13-2023 End: 05-13-2023 Patient encounter procedure DO Kyle Ball Work Phone: [facility] Work Phone: Start: 05-07-2023 End: 05-07-2023 ambulatory Kyle Gottlieb Other Crew Other Start: 05-07-2023 Nursing evaluation o f patient and report Kyle Gottlieb [facility] Start: 04-06-2023 End: 04-06-2023 ambulatory Kyle Ball Other Crew Other Start: 04-06-2023 Nursing evaluation o f patient and report Kyle Gottlieb [facility] Start: 03-23-2023 End: 03-23-2023 ambulatory Kyle Ball Other Crew Other Start: 03-23-2023 Nursing evaluation o f patient and report Kyle Gottlieb [facility] Start: 03-16-2023 End: 03-16-2023 ambulatory Kyle Ball Other Crew Other Start: 03-16-2023 Nursing evaluation o f patient and report Kyle Gottlieb [facility] Start: 03-13-2023 End: 03-13-2023 ambulatory Kyle Bull Other Crew Other Start: 03-13-2023 Telephone encounter Kyle Ball [facility] Start: 03-11-2023 End: 03-11-2023 ambulatory Kyle Ball Other Crew Other Start: 03-11-2023 Telephone encounter Kyle Ball [facility] Start: 02-10-2023 End: 02-10-2023 ambulatory Kyle Ball Other Crew Other Start: 02-10-2023 Office outpatient visit 25 minutes Kyle Ball [facility] Start: 02-04-2023 End: 02-04-2023 ambulatory Kyle Ball Other Crew Other Start: 02-04-2023 Telephone encounter Kyle Gottlieb [facility] Start: 02-03-2023 End: 02-04-[address] KYLE GOTTLIEB Facility:[facility] Start: 02-03-2023 Telephone encounter Kyle Gottlieb [facility] Start: 01-09-2023 End: 01-09-2023 ambulatory Kyle Gottlieb Other Crew Other Start: 01-09-2023 Telephone encounter Kyle Gottlieb [facility] Start: 01-07-2023 End: 01-08-[address] KYLE GOTTLIEB Facility:[facility] Start: 01-01-2023 End: 01-01-2023 ambulatory Kyle Gottlieb Other Crew Other Start: 01-01-2023 Office outpatient visit 25 minutes Kyle Gottlieb [facility] Start: 12-17-2022 End: 12-17-2022 ambulatory Kyle Gottlieb Other Crew Other Start: 12-17-2022 Telephone encounter Kyle LANZA [facility] Start: 12-17-2022 Transitional care manage srvc 7 day discharge Kyle Gottlieb [facility] Start: 12-16-2022 End: 12-16-2022 ambulatory Kyle Gottlieb Other Crew Other Start: 12-16-2022 Telephone encounter Kyle Gottlieb [facility] Start: 12-10-2022 End: 12-14-2022 Evaluation and management of inpatient DR BYRON PEREZ . Facility:[facility] Start: 12-08-2022 End: 12-08-2022 ambulatory Doni Rivera Other Crew Other Start: 12-08-2022 Telephone encounter oDni [facility] Start: 11-17-2022 End: 11-17-2022 ambulatory Kyle Gottlieb Other Crew Other Start: 11-17-2022 Office outpatient visit 25 minutes Kyle Ball [facility] Start: 09-03-2022 End: 09-03-2022 ambulatory Doni Rivera Other Crew Other Start: 09-03-2022 Telephone encounter Doni [facility] Start: 08-26-2022 End: 08-27-[address] KYLE GOTTLIEB Facility:[facility] Start: 08-25-2022 End: 08-26-[address] KYLE GOTTLIEB Facility:[facility] Start: 05-19-2022 Adult health examination Kyle Gottlieb Other Crew Other Start: 04-28-2022 End: 06-13-[address] KYLE GOTTLIEB Facility:[facility] Start: 04-14-2022 End: 04-14-2022 Patient encounter procedure DO [facility] Bull [facility] Start: 04-09-2022 End: 04-09-2022 ambulatory Doni Rivera Other Crew Other Start: 04-09-2022 Telephone encounter Doni [facility] Start: 12-05-2021 End: 12-05-2021 ambulatory Doni Rivera Other Crew Other Start: 12-05-2021 Telephone encounter Doni [facility] Start: 11-14-2021 End: 11-14-2021 ambulatory Doni Rivera Other Crew Other Start: 11-14-2021 Patient encounter procedure Doni Rivera [facility] Procedures Date Procedure Procedure Detail Performing Clinician Start: 05-13-2023 Screening mammograph y of bilateral breasts DO Kyle Gottlieb Work Phone: Start: 04-14-2022 Screening mammograph y of bilateral breasts DO Kyle Bull Work Phone: Depression screening Dylan Gottlieb Other Plan of Treatment Date Care Activity Detail Author Start: 05-03-2024 End: 05-03-2024 Patient encounter procedure 05/03/2024 11:15 AM EDT Office Visit [facility] [address] [place] [address] Kulwinder Dao DO [address] [place] [address] [facility] Start: 01-20-2024 End: 01-20-2024 Patient encounter procedure 01/20/2024 10:40 AM EDT Office Visit [facility] [address] [place] [address] Shivam Ponce MD [address] [facility] [address] [place] [address] [place] [address] [facility] Start: 11-16-2023 End: 11-16-2023 Patient encounter procedure 11/16/2023 11:40 AM EDT Office Visit [facility] [address] [place] [phone] Mel Hayes MD [address] [place] [address] [facility] Start: 10-14-2023 End: 10-14-2023 Patient encounter procedure 10/14/2023 11:20 AM EST Office Visit [facility] [address] [place] [address] Shivam Ponce MD [address] [facility] [address] [place] [address] [place] [address] [facility] Start: 05-08-2023 Influenza vaccination Influenza Vaccine (#1) [facility] Start: 2007 Pneumococcal Vaccine: 65+ Years (1 - PCV) Pneumococcal Vaccine: 65+ Years (1 - PCV) [facility] XR Foot - left GE 3 Views [facility] Immunizations Immunization Date Immunization Notes Care Provider Fa cility 05-27-2023 influenza virus vaccine, unspecified formulation [facility] 05-27-2023 Prevnar 20 Kyle Gottlieb Other [facility] 05-27-2023 influenza, high dose seasonal, preservative-free Kyle Gottlieb Other Crew Other 07-11-2022 COVID-19 Pfizer (Pediatric) Kyle Gottlieb Other [facility] 06-23-2022 influenza, injectabl e, quadrivalent, preservative free Shivam Ponce MD Work Phone: [facility] 06-23-2022 influenza virus vaccine, unspecified formulation Shivam Ponce MD Work Phone: [facility] 05-19-2022 influenza virus vaccine, split virus (incl. purified surface antigen) Kyle Gottlieb Other [email or web address] [facility] [employer] Other 05-19-2022 influenza virus vaccine, unspecified formulation [facility] 05-19-2022 Influenza, High-dose Seasonal, Quadrivalent, Preservative Free Shivam Ponce MD Work Phone: [facility] 02-06-2022 COVID-19 Vaccine Pfizer - Documentation Purposes Only Kyle Gottlieb Other [facility] 06-10-2021 COVID-19 mRNA, Comirnaty (Pfizer) DO Kyle Gottlieb Work Phone: [facility] 05-17-2021 influenza virus vaccine, split virus (incl. purified surface antigen) Kyle Gottlieb Other Crew Other 05-17-2021 influenza virus vaccine, unspecified formulation [facility] 11-22-2020 Moderna SARS-CoV-2 Vaccination Shivam Ponce MD Work Phone: [facility] 10-25-2020 COVID-19 mRNA, Comirnaty (Pfizer) DO Kyle Gottlieb Work Phone: [facility] 10-15-2020 Moderna SARS-CoV-2 Vaccination Shivam Ponce MD Work Phone: [facility] 10-04-2020 COVID-19 mRNA, Comirnaty (Pfizer) DO Kyle Gottlieb Work Phone: [facility] 10-04-2020 COVID-19 Vaccine Moderna - Documentation Purposes Only Kyle Gottlieb Other [facility] 05-16-2020 influenza virus vaccine, split virus (incl. purified surface antigen) Kyle Gottlieb Other [facility] [employer] Other 05-16-2020 influenza virus vaccine, unspecified formulation [facility] 06-02-2019 influenza virus vaccine, split virus (incl. purified surface antigen) Kyle Gottlieb Other [facility] [employer] Other 06-02-2019 influenza virus vaccine, unspecified formulation [facility] 05-25-2018 influenza virus vaccine, split virus (incl. purified surface antigen) Kyle Gottlieb Other [facility] [employer] Other 05-25-2018 influenza virus vaccine, unspecified formulation [facility] 05-25-2017 influenza virus vaccine, split virus (incl. purified surface antigen) Kyle Gottlieb Other [facility] [employer] Other 05-25-2017 influenza virus vaccine, unspecified formulation [facility] 06-11-2016 influenza virus vaccine, split virus (incl. purified surface antigen) Kyle Gottlieb Other [facility] [employer] Other 06-11-2016 influenza virus vaccine, unspecified formulation [facility] 06-13-2015 influenza virus vaccine, split virus (incl. purified surface antigen) Kyle Gottlieb Other [facility] [employer] Other 06-13-2015 influenza virus vaccine, unspecified formulation [facility] 06-13-2015 pneumococcal conjuga te vaccine, 13 valent Kyle Gottlieb Other [facility] 06-13-2015 pneumococcal Conjugate, unspecified formulation; Translations: [Need for prophylactic vaccination against Streptococcus pneumoniae (pneumococcus)] Kyle Gottlieb Other Crew Other 06-07-2013 tetanus and diphther ia toxoids, adsorbed, preservative free, for adult use (5 Lf of tetanus toxoid and 2 Lf of diphtheria toxoid) Kyle Gottlieb Other [facility] 06-13-2009 pneumococcal polysaccharide vaccine, 23 valent Kyle Gottlieb Other [facility] NEGATED: Highlighted row has not occurred!05-16-2020 influenza virus vaccine, split virus (incl. purified surface antigen) Kyle Gottlieb Other Crew Other Payers Date Payer Category Payer Self-pay [id number] 2022 Private Health Insurance [facility] [id number] 2022-Present [address] [address] [place] [address] [id number] 1996 Medicare [id number] 1959 Medicare [id number] [id number] 1959 Private Health Insurance [id number] [id number] 1942 Unknown [id number] 2.16.840.1.377591.3.579. 2.593 1942 Unknown [id number] 2.16.840.1.657935.3.579. 2.593 1942 Unknown [id number] 2.16.840.1.805781.3.579. 2.593 1942 Unknown [id number] 2.16.840.1.370566.3.579. 2.593 1942 Unknown [id number] 2.16.840.1.697685.3.579. 2.593 1942 Unknown [id number] 2.16.840.1.410222.3.579. 2.593 1942 Unknown [id number] 2.16.840.1.941028.3.579. 2.1259 1942 Unknown [id number] 2.16.840.1.464257.3.579. 2.1259 1942 Unknown [id number] 2.16.840.1.682877.3.579. 2.1259 1942 Unknown [id number] 2.16.840.1.688681.3.579. 2.1259 1942 Unknown [id number] 2.16.840.1.717503.3.579. 2.1259 1942 Unknown [id number] 2.16.840.1.626648.3.579. 2.1259 Unknown [id number] 2.16.840.1.920709.3.579. 2.531 Social History Date Type Detail Facility Unknown if ever smoked Crew Other Start: 04-28-2023 End: 10-14-2023 Sex Assigned At [facility] Other Start: 11-28-2021 End: 09-17-2023 Tobacco smoking status NDIS Ex-smoker (finding) [facility] Start: 1940 Sex Assigned At Female F [facility] Start: 02-16-2023 Tobacco smoking stat us NDIS Never smoked tobacco [facility] Start: 02-16-2023 Tobacco use and exposure Smokeless tobacco non-user [facility] Start: 08-10-2023 End: 10-14-2023 Alcohol intake Lifetime non-drinker (finding) [facility] Start: 04-28-2023 End: 10-14-2023 History of Social function [facility] How often to you hav e a drink containing alcohol? Never [facility] How many standard drinks containing alcohol do you have on a typical day? Patient does not drink [facility] Start: 08-10-2023 Alcohol Comment caffeine intak e: 1-2 cups per day; pop [facility] Start: 1940 Sex Assigned At Not on file N [facility] Clinical Notes 11-14-2021 to 02-03-2024 Note Date & Type Note Facility 02-03-2024 Evaluation note Diagnosis Onset Date Gastroesophageal reflux dise ase with esophagitis without hemorrhage acute Lumbar spondylosis acute PA (pernicious anemia) acute Primary hypertension acute Stage 3a chronic kidney disease acute Venous insufficiency (chronic) (peripheral) acute Acute sinusitis noneactive [facility] Work Phone: 1(891) 807-481104-22-2024 Evaluation note* Diagnosis Onset Date Resolution Status Gastroesophageal reflux dise ase with esophagitis without hemorrhage acute Lumbar spondylosis acute PA (pernicious anemia) acute Primary hypertension acute Stage 3a chronic kidney disease acute Venous insufficiency (chronic) (peripheral) acute Acute sinusitis noneactive [facility] Work Phone: 1(326) 512-763402-07-2024 History of Present illness Narrative* Shivam Ponce [...] (gastroesophageal reflux disease) Hiatal hernia HLD (hyperlipidemia) ([facility]) Hx of migraine headaches IBS (irritable bowel syndrome) Multiple sclerosis ([facility]) 1993 Past Surgical History: Procedure Laterality Date APPENDECTOMY CATARACT EXTRACTION, BILATERAL COLONOSCOPY EGD 2013 TOTAL ABDOMINAL HYSTERECTOMY W/ BILATERAL SALPINGOOPHORECTOMY 1984 VAGINAL DELIVERY Family History Problem Relation Name [...] reflexes: Erica's absent. Ankle clonus absent. Coordination Heqyes-so-qgmv, rapid alternating movements and alko-ih-idvq normal bilaterally without dysmetria. Gait Normal casual, toe, heel and tandem gait. Romberg is absent. Assessment/Plan Diagnoses and all orders for this visit: Brachial plexus neuropathy Multiple sclerosis (CMS/[facility]) Gina Pierre is a 83 y.o. year [...] nerve dysfunction including polyneuropathy. [id number] Evaluation note* Encounter Date Diagnosis Assessment Notes Treatment Notes Treatment Clinical Notes Sep, Acute non-recurrent maxillary sinusitis (ICD-10 - J01.00) Instructed to use Robitussin or Mucinex for cough, saline or Flonase NS for congestion, Tylenol for pain and fever. Sep, Multiple sclerosis (ICD-10 - G35) weakens her immune system placing her at risk for more seriou, prolonged illness Crew Other 01-09-2024 Evaluation note* Encounter Date Diagnosis Assessment Notes Treatment Notes Treatment Clinical Notes Sep, Pernicious anemia (ICD-10 - D51.0) Crew Other 12-22-2023 Evaluation note* Encounter Date Diagnosis Assessment Notes Treatment Notes Treatment Clinical Notes Aug, Flu-like symptoms (ICD-10 - R68.89) Aug, Acute non-recurrent maxillary sinusitis (ICD-10 - J01.00) Crew Other 12-19-2023 Evaluation note* Encounter Date Diagnosis Assessment Notes Treatment Notes Treatment Clinical Notes Aug, Abdominal pain (ICD-10 - R10.9) Aug, Nausea & vomiting (ICD-10 - R11.2) Aug, GERD (gastroesophageal reflux disease) (ICD-10 - K21.9) Pt is doing well on the pantoprazole. Pt RTO YEARLY Aug, Early satiety (ICD-10 - R68.81) Aug, Loss of appetite (ICD-10 - R63.0) Crew Other 12-07-2023 Evaluation note* Encounter Date Diagnosis Assessment Notes Treatment Notes Treatment Clinical Notes Aug, Pernicious anemia (ICD-10 - D51.0) Crew Other 11-02-2023 Evaluation note* Encounter Date Diagnosis Assessment Notes Treatment Notes Treatment Clinical Notes Jul, Pernicious anemia (ICD-10 - D51.0) Crew Other 10-02-2023 Evaluation note* Encounter Date Diagnosis Assessment Notes Treatment Notes Treatment Clinical Notes Jun, Pernicious anemia (ICD-10 - D51.0) Crew Other 09-22-2023 Evaluation note* Encounter Date Diagnosis Assessment Notes Treatment Notes Treatment Clinical Notes May, Anemia, unspecified type (ICD-10 - D64.9) May, Fatigue, unspecified type (ICD-10 - R53.83) Crew Other 09-20-2023 Evaluation note* Encounter Date Diagnosis [...] - R53.83) Check labs: CBC, B12, TSH Crew Other 08-31-2023 Evaluation note* Encounter Date Diagnosis Assessment Notes Treatment Notes Treatment Clinical Notes Apr, Pernicious anemia (ICD-10 - D51.0) Crew Other 07-31-2023 Evaluation note* Encounter Date Diagnosis Assessment Notes Treatment Notes Treatment Clinical Notes Mar, Pernicious anemia (ICD-10 - D51.0) Crew Other 07-10-2023 Evaluation note* Encounter Date Diagnosis Assessment Notes Treatment Notes Treatment Clinical Notes Mar, Pernicious anemia (ICD-10 - D51.0) Crew Other 07-07-2023 Evaluation note* Encounter Date Diagnosis Assessment Notes Treatment Notes Treatment Clinical Notes Mar, PA (pernicious anemia) (ICD-10 - D51.0) Crew Other 07-05-2023 Evaluation note* Encounter Date Diagnosis Assessment Notes Treatment Notes Treatment Clinical Notes Mar, Acute pneumonia (ICD-10 - J18.9) Mar, Anemia, unspecified type (ICD-10 - D64.9) Mar, Stage 3a chronic kidney disease (ICD-10 - N18.31) Crew Other 06-06-2023 Evaluation note* Encounter Date Diagnosis [...] FA supplement. Recheck FA/B12, CBC in month Crew Other 05-30-2023 Evaluation note* Encounter Date Diagnosis Assessment Notes Treatment Notes Treatment Clinical Notes January, Acute pneumonia (ICD-10 - J18.9) January, Anemia, unspecified type (ICD-10 - D64.9) January, Stage 3a chronic kidney disease (ICD-10 - N18.31) Crew Other 05-05-2023 Evaluation note* Encounter Date Diagnosis Assessment Notes Treatment Notes Treatment Clinical Notes January, Folic acid deficiency (ICD-10 - E53.8) Crew Other 04-27-2023 Evaluation note* Encounter Date Diagnosis [...] and exerci se with continued statin therapy. Crew Other 04-12-2023 Evaluation note* Encounter Date Diagnosis [...] Weight loss. Dec, Anasarca (ICD-10 - R60.1) Crew Other 04-03-2023 Evaluation note* Encounter Date Diagnosis Assessment Notes Treatment Notes Treatment Clinical Notes Dec, Seasonal allergic rhinitis (ICD-10 - J30.2) Crew Other 03-13-2023 Evaluation note* Encounter Date Diagnosis [...] Daily stretching exercises, exercise, avoid strenuous lifting. Crew Other 12-28-2022 Evaluation note* Encounter Date Diagnosis Assessment Notes Treatment Notes Treatment Clinical Notes Aug, Diarrhea (ICD-10 - R19.7) Crew Other 03-31-2022 Evaluation note* Encounter Date Diagnosis Assessment Notes Treatment Notes Treatment Clinical Notes Nov, Diarrhea (ICD-10 - R19.7) Crew Other 03-10-2022 Evaluation note* Encounter Date Diagnosis [...] Nov, Loss of appetite (ICD-10 - R63.0) Crew Other Evaluation noteNo InformationNorth [employer] Other Evaluation noteNo assessment information available [facility] Work Phone: Evaluation noteNort coRank Other Evaluation note* Diagnosis Brachial plexus neuropathy- Primary Brachial plexus lesions Multiple sclerosis (CMS/HCC) Multiple sclerosis [facility] Diagnosis Onset Date Resolution Status Gastroesophageal reflux dise ase with esophagitis without hemorrhage acute Lumbar spondylosis acute PA (pernicious anemia) acute Primary hypertension acute Stage 3a chronic kidney disease acute Venous insufficiency (chronic) (peripheral) acute Acute sinusitis noneactive [facility] Work Phone: Evaluation note* Diagnosis Onset Date Resolution Status Foot pain, left acute Gastroesophageal reflux dise ase with esophagitis without hemorrhage acute Acute diverticulitis noneact bhargavi Nausea noneactive [facility] Work Phone: Evaluation note* Diagnosis Onset Date Resolution Status Foot pain, left acute Gastroesophageal reflux dise ase with esophagitis without hemorrhage acute Acute diverticulitis noneact bhargavi Nausea noneactive Acute bronchitis due to other specified organisms acute Acute exacerbation of chroni c obstructive airways disease acute [facility] Work Phone: [employer] general Narrative - Reported* Type Description Date Surgical History appenedectomy Surgical History left ovary Surgical History total hysterectomy Crew Other [employer] general Narrative - Reported* Type Description Date [...] History EGD 2020,2021 Hospitalization History [facility] Crew Other History general Narrative - Reported* Type [...] History EGD 2020,2021 Hospitalization History [facility] Crew Other History general Narrative - ReportedNoBank of [place] coRank Other [employer] general Narrative - ReportedNoA[employer] Other Chief Complaint and Reason for Visit Chief Complaint Screening Chief Complaint Sore Throat Sinuses - [phone] B-12 SHOT Chief Complaint Sinuses - [phone] B-12 SHOT 6 month follow up Reason [...] insufficiency (chronic) (peripheral) Acute sinusitis Chief Complaint B12 b12 stomach pain, nausea Chief Complaint b12 stomach pain, nausea B12 Shot Reason for Visit Foot pain, left Gastroesophageal reflux disease with esophagitis without hemorrhage Acute diverticulitis Nausea Chief Complaint stomach pain, nausea B12 Shot [phone] cough, congestion for 3 days Reason for Visit Foot pain, left Gastroesophageal reflux disease with esophagitis without hemorrhage Acute diverticulitis Nausea Acute bronchitis due to other specified organisms Acute exacerbation of chronic obstructive airways disease Chief Complaint stomach pain, nausea B12 Shot [phone] cough, congestion for 3 days Fall-L Shoulder, Head/Dr. Note Reason for Visit Foot pain, left Gastroesophageal reflux disease with esophagitis without hemorrhage Acute diverticulitis Nausea Acute bronchitis due to other specified organisms Acute exacerbation of chronic obstructive airways disease Family History Relationship Condition Age at Onset Recorded Date/T leesa Not Specified Heart disease Unknown brother Heart disease Unknown father Malignant neoplasm of pancreas Unknown Relationship Condition Age at Onset Recorded Date/T leesa Not Specified Heart disease Unknown brother Heart disease Unknown father Malignant neoplasm of pancreas Unknown brother Congestive heart failure Unknown Unknown father Unknown Malignant neoplasm Unknown Not Specified Unknown Relationship Condition Age at Onset Recorded Date/T leesa mother Heart disease Unknown brother Heart disease Unknown father Malignant neoplasm of pancreas Unknown brother Congestive heart failure Unknown Unknown father Unknown Malignant neoplasm Unknown mother Unknown Advance Directives Advance Directive Response Recorded Date/ Time Advance Directives No January 21 8 3:52pm Advance Directive Response Recorded Date/ Time Advance Directives No January 21 2:52pm Reason for Referral Reason Consult for [...] ShotREFILL/OV NEEDEDSCRIPT SEND TO DIFFERT SCRIPTB-12 ShotB-12 [id number] is here for a 1 year Follow up /PAST DUE/MEDSCOVID testCOVID testflu testB-12 SHOTSinuses - [phone] Care Teams (unrecognized sec tion and content) Team Status: Inactive Member Role Status Dates Kyle Gottlieb , DO Primary Care Provider Active Kulwinder Dao , DO Attending Provider, Referring Pr hans Active Team Status: Active Member Role Status Dates Kyle Gottlieb DO Primary Care Provider Active Team Status: Inactive Member Role Status Dates Kyle Gottlieb DO Primary Care Provider Active Kulwinder Dao , DO Attending Provider Active Medical Billing Coder Relationship Specialty Start Date End Date Kyle Gottlieb MD [address] [place] [id number] PCP - General Internal Medicine 02/16/23 Medical Billing Coder Relationship Specialty Start Date End Date Kyle Gottlieb MD [address] [place] [id number] PCP - General Internal Medicine 02/16/23 Team Status: Inactive Member Role Status Dates Tonya Harrison APRN FRONT DESK WORKER-C Attending Provider Act bhargavi Start: August 25, 2023 End: August 25, 2023 Team Status: Inactive Member Role Status Saqib Gottlieb DO Attending Provider Active Sta rt: [...] Role Status Saqib Gottlieb DO Primary Care Provider Active Start: December 28, 2023 End: December 28, 2023 Aliza Daniel MD Attending Provider Active St art: December 28, 2023 End: December 28, 2023 Team Status: Inactive Member Role Status Saqib Gottlieb DO Primary Care Provide r, Attending Provider Active Start: February 03, 2024 End: February 03, 2024 Team Status: Inactive Member Role Status Saqib Gottlieb DO Primary Care Provide r, Attending Provider Active Start: March 09, 2024 End: March 09, 2024 Team Status: Inactive Member Role Status Saqib Gottlieb DO Primary Care Provide r, Attending Provider Active Start: April 12, 2024 End: April 12, 2024 Team Status: Inactive Member Role Status Saqib Gottlieb DO Primary Care Provide r, Attending Provider Active Start: May 11, 2024 End: May 11, 2024 Team Status: Inactive Member Role Status Dates Kyle Gottlieb , DO Primary Care Provide r, Attending Provider Active Start: May 17, 2024 End: May 17, 2024 Goals (unrecognized section and content) Goals may be documented in a n alternate section INFORMATION SOURCE (unrecogn ized section and content) DATE CREATED AUTHOR 02/13/2023 [facility] DATE CREATED AUTHOR AUTHOR'S ORGANIZ ATION 05/24/2023 [facility] DATE CREATED AUTHOR AUTHOR'S ORGANIZ ATION 05/05/2024 [facility] FOR RECORDS PERTAINING TO PATIENTS [...] BE BASED ON THE PRIMARY CLINICAL RECORDS. [facility] [employer] provides no warranty or guarantee of the accuracy or completeness of information in this document.
== END 2024-05-20 13:28 | disposition home or self-care (01) ==
LOC: CT 13:28
PROVIDERS: PCP Internal Medicine; Visit Provider Internal Medicine
DX: S06.0XAA Concussion with loss of consciousness status unknown, initial encounter (principal)
CPT/HCPCS: 70450

== ENCOUNTER 2024-05-25 12:50 | Outpatient (OUT) | payer MEDICARE, OTHER, SELFPAY ==
[2024-05-25 13:32] LABS: Basophils Percent Auto 0.8 % (0.2-2.0); Eosinophils Absolute Auto 0.1 10^3/uL (0.0-0.7); Eosinophils Percent Auto 1.9 % (0.9-7.0); Hematocrit 36.1 % (36.0-48.0); Hemoglobin 11.7 g/dL (12.0-16.0); Immature Granulocytes Abs Auto 0.04 10^3/uL (0.00-0.03); Immature Granulocytes Pct Auto 0.8 % (0.0-0.5); Lymphocytes Absolute Auto 1.1 10^3/uL (1.2-3.8); Lymphocytes Percent Auto 23.3 % (20.5-60.0); Mean Corpuscular HGB Conc 32.4 g/dL (29.9-35.2); Mean Corpuscular Hemoglobin 30.9 pg (26.7-34.0); Mean Corpuscular Volume 95.3 fL (81.0-99.0); Mean Platelet Volume 10.8 fL (9.5-13.5); Monocytes Absolute Auto 0.3 10^3/uL (0.3-0.8); Neutrophils Absolute Auto 3.2 10^3/uL (1.4-6.5); Neutrophils Percent Auto 66.2 % (43.0-75.0); Platelet Count 186 10^3/uL (150-450); Red Blood Count 3.79 10^6/uL (4.20-5.40); Red Cell Distribution Width 13.7 % (11.0-15.0); White Blood Count 4.8 10^3/uL (4.0-11.0)
[2024-05-25 13:46] LABS: Percent Iron Saturation 33.2 %
[2024-05-25 13:57] LABS: Alanine Aminotransferase 17 U/L (14-59); Albumin Globulin Ratio 1.2; Albumin Level 3.3 g/dL (3.4-5.0); Alkaline Phosphatase 47 U/L (46-116); Anion Gap 10.9; Aspartate Amino Transferase 21 U/L (15-37); BUN Creatinine Ratio 17.4; Bilirubin Total 0.6 mg/dL (0.2-1.0); Calcium 8.7 mg/dL (8.5-10.1); Carbon Dioxide 28.8 mmol/L (21.0-32.0); Chloride 104 mmol/L (98-107); Estimated GFR (African America 55 (>=60); Estimated GFR (Non-African Ame 45 (>=60); Globulin 2.8 g/dL; Glucose 111 mg/dL (74-106); Potassium 3.7 mmol/L (3.5-5.1); Sodium 140 mmol/L (136-145); Thyroid Stimulating Hormone 2.056 uIU/mL (0.358-3.740); Total Protein 6.1 g/dL (6.4-8.2)
[2024-05-26 04:08] LABS: Vitamin B12 963 pg/mL (232-1245)
== END 2024-05-25 12:51 | disposition home or self-care (01) ==
LOC: LAB 12:54
PROVIDERS: PCP Internal Medicine; Visit Provider Internal Medicine
DX: D64.9 Anemia, unspecified (principal); R00.1 Bradycardia, unspecified; I10 Essential (primary) hypertension; R53.83 Other fatigue
CPT/HCPCS: 36415; 80053; 82607; 82728; 82746; 83540; 83550; 84443; 85025

== ENCOUNTER 2024-09-05 15:09 | Observation (INO) | payer MEDICARE, OTHER, SELFPAY ==
[2024-09-05] VITALS (16 sets, daily range): BP systolic 158–165; BP diastolic 73–91; PULSE 55–88; TEMP 36.4–36.6; O2SAT 94–99; BMI 24.3; BMI 27.2
--- NOTE | 2024-09-05 15:32 | CT_ITS ---
[address] [address] Patient Name: ANGY BETTS MRN: [id number] date: 1940 Sex: F Assigned Patient Location: ER Current Patient Location: .[facility] Accession/Order Number: [id number] Exam Date: 09/05/2024 15:45 Report Date: 09/05/2024 16:12 At the request of: VERÓNICA BAILEY Procedure: CT abdomen pelvis wo con EXAMINATION: CT abdomen pelvis wo con HISTORY: LLQ pain COMPARISON: CT abdomen pelvis 12/09/2022 TECHNIQUE: Axial, Coronal, and Sagittal images were obtained without and/or with IV contrast as indicated by examination type. Dose reduction techniques were achieved by using automated exposure control and/or adjustment of mA and/or kV according to patient size and/or use of iterative reconstruction technique. FINDINGS: LUNG BASES: No visible pulmonary or pleural disease. LIVER: No enlargement, atrophy, suspicious density, or significant focal lesion. BILIARY: No dilatation or calcification. PANCREAS: No lesion, fluid collection, or abnormal duct dilatation. SPLEEN: No enlargement or focal lesion. ADRENALS: No mass or enlargement. KIDNEYS: No mass, obstruction, or calcification. BOWEL/MESENTERY: Large hiatal hernia. Multiple large diverticula involving the sigmoid colon without acute inflammatory changes. No visible mass, obstruction, or bowel wall thickening. AORTA/VASCULAR: Moderate-marked atherosclerotic disease. No aneurysm or dissection. RETROPERITONEUM: No mass or adenopathy. LYMPH NODES: No adenopathy. URINARY BLADDER: No visible focal wall thickening, lesion, or calculus. PELVIC ORGANS: Hysterectomy. ABDOMINAL WALL: No mass or hernia. BONES: No bony lesion or fracture. Marked degenerative disc disease of lumbar spine. OTHER: Negative. CT/CT abdomen pelvis wo con IMPRESSION: 1. No acute or specific findings to account for patient's symptoms. 2. Distal colonic diverticulosis; no acute findings. 3. 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 Electronically authenticated by: BUCKY CRAIG Date: 09/05/2024 16:12
[2024-09-05 16:03] LABS: Influenza Virus A Antigen Negative; Influenza Virus B Antigen Negative; Internal Control Within Normal Limits; SARS-CoV-2 Ag NEGATIVE (NEGATIVE); Strep A Antigen Screen Negative
[2024-09-05 16:05] LABS: BOX Test Reference Lab FRMC; BOX Test Sent Out GROUP A CULTURE
--- NOTE | 2024-09-05 16:10 | ECG_ITS ---
[facility] Test Date: 2024-09-05 Pat Name: ANGY BETTS Department: Room: - Gender: Female [employer]: : 1940 Requested By: JEFFREY OBRIEN Order Number: [id number] Reading MD: JEFFREY OBRIEN Measurements Intervals [place] Rate: 61 P: 57 CO: 142 QRS: 40 QRSD: 78 T: 64 QT: 400 QTc: 403 Interpretive Statements 1100 Sinus rhythm 9110 normal ECG Compared to ECG 12/09/2022 17:34:00 Sinus tachycardia no longer present ST (T wave) deviation no longer present Electronically Signed On 09-06-2024 7:03:37 EST by JEFFREY OBRIEN
--- NOTE | 2024-09-05 16:16 | ED.ABDPAIN1 ---
HPI - Abdominal Pain General Chief Complaint: Abdominal Pain Stated Complaint: abdominal pain Time Seen by Provider: 09/05/24 15:32 Source: patient Mode of arrival: walk-in History of Present Illness HPI narrative: The patient is a 84 years old female coming to the ER with a left lower quadrant pain associated with her recently getting better from a viral infection, the patient mentioned that she has been having constipation she have some nausea no vomiting and there is no p.o. intake for the last 24 hours because she had no appetite Patient have history of multiple abdominal surgeries including hysterectomy and appendectomy Patient also is complaining of dizziness and nausea Related Data Home Medications ?Medication ?Instructions ?Recorded ?Confirmed benazepril 5 mg tablet 5 mg PO DAILY 09/05/24 09/05/24 calcium carb-ergocalciferol (vit 2 tab PO DAILY 09/05/24 09/05/24 D2) 600 mg calcium-200 unit tablet cetirizine 10 mg tablet (24Hour 10 mg PO DAILY PRN allergy symptoms 09/05/24 09/05/24 Allergy) conjugated estrogens 0.625 mg/gram 0.625 mg vaginal DAILY 09/05/24 09/05/24 vaginal cream (Premarin) fenofibrate 160 mg tablet 160 mg PO DAILY 09/05/24 09/05/24 folic acid 1 mg tablet 1 mg PO DAILY 09/05/24 09/05/24 gabapentin 300 mg capsule 300 mg PO DAILY 09/05/24 09/05/24 (Neurontin) omega 6-kpf-mpy-fish oil 1,200 mg 2 cap PO DAILY 09/05/24 09/05/24 (144 mg-216 mg) capsule (Fish Oil) omeprazole 40 mg capsule,delayed 40 mg PO Q12H 09/05/24 09/05/24 release oxcarbazepine 300 mg tablet 300 mg PO DAILY 09/05/24 09/05/24 (Trileptal) Allergies Allergy/AdvReac Type Severity Reaction Status Date / Time amoxicillin AdvReac Severe Unknown Verified 09/05/24 15:40 clarithromycin AdvReac Severe Unknown Verified 09/05/24 15:40 levofloxacin AdvReac Severe Unknown Verified 09/05/24 15:40 naproxen (From Naprosyn) AdvReac Severe Wheezing Verified 09/05/24 15:40 sulfamethoxazole (From AdvReac Severe Vomiting Verified 09/05/24 15:40 Bactrim) trimethoprim (From Bactrim) AdvReac Severe Vomiting Verified 09/05/24 15:40 Review of Systems ROS Status of ROS 10 or more systems reviewed and unremarkable except as noted in history and below PFSH PFSH Social History Little interest or pleasure in doing things: not at all Feeling down, depressed, or hopeless: not at all Exam Narrative Exam Narrative: Nurses notes and vital signs reviewed and patient is not hypoxic. General: Well-appearing and in no apparent distress. Skin: Warm, dry, no pallor noted. No rash. Head: Normocephalic, atraumatic. Neck: Supple, non-tender. Eye: Pupils are equal, round and EOMI. No scleral icterus. Ears, Nose, Mouth, and Throat: TM are clear, no nasal mucosal hypertrophy. Oral mucosa is moist, no posterior oropharynx erythema, uvula is mid-line Cardiovascular: Regular Rate and Rhythm without murmur, gallop or rub. Respiratory: No accessory muscle use or respiratory distress. Lungs are clear to auscultation, no wheezing, rales or rhonchi Chest Wall: no tenderness Back: No midline thoracic or lumbar vertebral tenderness. No CVA tenderness Musculoskeletal: normal ROM, no calf or popliteal tenderness, no lower extremity edema/swelling GI: Abdomen is soft, left lower quadrant tenderness Neurological: A&O x4. No cranial nerve dysfunction observed. No truncal ataxia. Moves all extremities. Sensation intact. Psychiatric: Cooperative and interactive. Normal mood and affect. Constitutional Vital Signs, click to edit/add: Last Vital Signs Temp 97.9 F 09/05/24 15:21 Pulse 61 09/05/24 15:21 Resp 22 H 09/05/24 17:50 BP 165/91 H 09/05/24 15:21 Pulse Ox 96 09/05/24 17:20 O2 Del Method Room Air 09/05/24 15:21 Course Vital Signs Vital signs: Vital Signs Temperature 97.9 F 09/05/24 15:21 Pulse Rate 61 09/05/24 15:21 Respiratory Rate 18 09/05/24 15:21 Blood Pressure 165/91 H 09/05/24 15:21 Pulse Oximetry 99 09/05/24 15:21 Oxygen Delivery Method Room Air 09/05/24 15:21 Temperature 97.9 F 09/05/24 15:21 Pulse Rate 61 09/05/24 15:21 Respiratory Rate 22 H 09/05/24 17:50 Blood Pressure 165/91 H 09/05/24 15:21 Pulse Oximetry 96 09/05/24 17:20 Oxygen Delivery Method Room Air 09/05/24 15:21 MDM - Abdominal Pain MDM Narrative Medical decision making narrative: The patient EKG in the ER showing sinus rhythm with a heart rate of [address] elevation or depression It was noted that the patient looked dehydrated She had CBC and chemistry showing some acute kidney injury and the potassium 3.3 Right now the patient presentation is concerning for possible dehydration although her troponin initially was negative repeated troponin is pending Patient was provided with IV fluid and the CAT scan abdomen pelvis showed no acute pathology But the patient still dizzy and she lives by herself she be admitted for further hydration and observation Case was discussed with Dr. Zuleta and he agrees with above-mentioned plan Lab Data Labs: Lab Results 09/05/24 09/05/24 09/05/24 Range/Units 15:31 16:05 17:40 WBC 5.6 (4.0-11.0) 10^3/uL RBC 3.81 L (4.20-5.40) 10^6/uL Hgb 11.8 L (12.0-16.0) g/dL Hct 35.7 L (36.0-48.0) % MCV 93.7 (81.0-99.0) fL MCH 31.0 (26.7-34.0) pg MCHC 33.1 (29.9-35.2) g/dL RDW 13.3 (11.0-15.0) % Plt Count 226 (150-450) 10^3/uL MPV 10.8 (9.5-13.5) fL Neut % (Auto) 67.1 (43.0-75.0) % Lymph % (Auto) 24.6 (20.5-60.0) % [place] % (Auto) 6.7 (1.7-12.0) % Eos % (Auto) 0.9 (0.9-7.0) % Baso % (Auto) 0.2 (0.2-2.0) % Neut # (Auto) 3.8 (1.4-6.5) 10^3/uL Lymph # (Auto) 1.4 (1.2-3.8) 10^3/uL [place] # (Auto) 0.4 (0.3-0.8) 10^3/uL Eos # (Auto) 0.1 (0.0-0.7) 10^3/uL Baso # (Auto) 0.0 (0.0-0.1) 10^3/uL Abs Immat Gran (auto) 0.03 (0.00-0.03) 10^3/uL Imm/Tot Granulo (auto) 0.5 (0.0-0.5) % Sodium 143 (136-145) mmol/L Potassium 3.3 L (3.5-5.1) mmol/L Chloride 108 H (98-107) mmol/L Carbon Dioxide 28.7 (21.0-32.0) mmol/L Anion Gap 9.6 BUN 12.0 (7.0-18.0) mg/dL Creatinine 1.03 H (0.55-1.02) mg/dL Est GFR ( Amer) >60 (>=60 mL/min/1.73m^2) Est GFR (Non-Af Amer) 51 L (>=60 mL/min/1.73m^2) BUN/Creatinine Ratio 11.7 Glucose 101 (74-106) mg/dL Calcium 8.7 (8.5-10.1) mg/dL Total Bilirubin 0.4 (0.2-1.0) mg/dL AST 17 (15-37) U/L ALT 14 (14-59) U/L Alkaline Phosphatase 49 (46-116) U/L Total Protein 6.6 (6.4-8.2) g/dL Albumin 3.5 (3.4-5.0) g/dL Globulin 3.1 g/dL Albumin/Globulin Ratio 1.1 Urine Color Yellow (YELLOW) Urine Clarity Clear (CLEAR) Urine pH 7.5 (5.0-9.0) Ur Specific [place] 1.015 (1.005-1.025) Urine Protein Negative (NEG/TRACE) mg/dL Urine Glucose (UA) Negative (NEGATIVE) mg/dL Urine Ketones Negative (NEGATIVE) mg/dL Urine Occult Blood Negative (NEGATIVE) Urine Nitrite Negative (NEGATIVE) Urine Bilirubin Negative (NEGATIVE) Urine Urobilinogen 2.0 A (0.2-1.0) EU/dL Ur Leukocyte Esterase Negative (NEGATIVE) Influenza Type A Ag Negative Influenza Type B Ag Negative SARS-CoV-2 Ag (CV2AG) Negative (NEGATIVE) Streptococcus Screen Negative Ref Lab Order Date 09/05/24 Ref Lab Test Name Group a culture Ref Test Addition Info [facility] Discharge Plan Discharge Chief Complaint: Abdominal Pain Clinical Impression: Constipation, Abdominal pain, Dehydration, Dizziness, Acute hypokalemia Patient Disposition: Admitted as Observation Time of Disposition Decision: 18:06
[2024-09-05] MEDS: ONDANSETRON PF 4 MG/2 ML VIAL IV ×3 (16:19→23:09)
[2024-09-05 16:28] LABS: Basophils Percent Auto 0.2 % (0.2-2.0); Eosinophils Absolute Auto 0.1 10^3/uL (0.0-0.7); Eosinophils Percent Auto 0.9 % (0.9-7.0); Hematocrit 35.7 % (36.0-48.0); Hemoglobin 11.8 g/dL (12.0-16.0); Immature Granulocytes Abs Auto 0.03 10^3/uL (0.00-0.03); Immature Granulocytes Pct Auto 0.5 % (0.0-0.5); Lymphocytes Absolute Auto 1.4 10^3/uL (1.2-3.8); Lymphocytes Percent Auto 24.6 % (20.5-60.0); Mean Corpuscular HGB Conc 33.1 g/dL (29.9-35.2); Mean Corpuscular Volume 93.7 fL (81.0-99.0); Mean Platelet Volume 10.8 fL (9.5-13.5); Monocytes Absolute Auto 0.4 10^3/uL (0.3-0.8); Monocytes Percent Auto 6.7 % (1.7-12.0); Neutrophils Absolute Auto 3.8 10^3/uL (1.4-6.5); Neutrophils Percent Auto 67.1 % (43.0-75.0); Platelet Count 226 10^3/uL (150-450); Red Blood Count 3.81 10^6/uL (4.20-5.40); Red Cell Distribution Width 13.3 % (11.0-15.0); White Blood Count 5.6 10^3/uL (4.0-11.0)
[2024-09-05 16:45] LABS: Alanine Aminotransferase 14 U/L (14-59); Albumin Globulin Ratio 1.1; Albumin Level 3.5 g/dL (3.4-5.0); Alkaline Phosphatase 49 U/L (46-116); Anion Gap 9.6; Aspartate Amino Transferase 17 U/L (15-37); BUN Creatinine Ratio 11.7; Bilirubin Total 0.4 mg/dL (0.2-1.0); Calcium 8.7 mg/dL (8.5-10.1); Carbon Dioxide 28.7 mmol/L (21.0-32.0); Chloride 108 mmol/L (98-107); Estimated GFR (African America >60 (>=60 mL/min/1.73m^2); Estimated GFR (Non-African Ame 51 (>=60 mL/min/1.73m^2); Globulin 3.1 g/dL; Glucose 101 mg/dL (74-106); Potassium 3.3 mmol/L (3.5-5.1); Sodium 143 mmol/L (136-145); Total Protein 6.6 g/dL (6.4-8.2)
[2024-09-05 17:44] LABS: Bilirubin Urine NEGATIVE (NEGATIVE); Blood Urine NEGATIVE (NEGATIVE); Clarity Urine CLEAR (CLEAR); Color Urine YELLOW (YELLOW); Glucose Urine UA NEGATIVE (NEGATIVE); Ketones Urine NEGATIVE (NEGATIVE); Leukocyte Esterase Urine NEGATIVE (NEGATIVE); Nitrite Urine NEGATIVE (NEGATIVE); Protein Urine NEGATIVE (NEG/TRACE); Specific Gravity Urine 1.015 (1.005-1.025); pH Urine 7.5 (5.0-9.0)
[2024-09-05] MEDS: 0.9 % SODIUM CHLORIDE 1,000 ML 500 ML IV (17:51)
[2024-09-05] MEDS: FAMOTIDINE/PF 20 MG/2 ML VIAL IV (17:51)
[2024-09-05 17:56] LABS: Urine Microscopic Indicated NO
[2024-09-05 18:13] LABS: Troponin I High Sensitivity 22.3 pg/mL (4.0-51.3)
[2024-09-05 18:55] LABS: Troponin I High Sensitivity 34.8 pg/mL (4.0-51.3)
--- NOTE | 2024-09-05 19:13 | P.HP_ITS ---
HPI H&P: HPI History of Present Illness Chief complaint: abdominal pain Narrative: Patient appears to emergency room with increasing abdominal pain. She had respiratory distress and uncontrolled hypertension as well, normal white blood cell count, CT scan is negative but on exam has tenderness in the left lower quadrant When I saw patient in the emergency room, very uncomfortable secondary to the pain and nausea. Opioid HPI Opioid Management Most Recent Pain and Opioid Data: No Data to Display Review of Systems ROS Status of ROS 10 or more systems reviewed and unremark able except as noted in history and below PFSH PFSH Social History Little interest or pleasure in doing things: not at all Feeling down, depressed, or hopeless: not at all Meds Home Medications and Allergies Home Medications ?Medication ?Instructions ?Recorded ?Confirmed ?Type benazepril 5 mg tablet 5 mg PO DAILY 09/05/24 09/05/24 History calcium carb-ergocalciferol (vit 2 tab PO DAILY 09/05/24 09/05/24 History D2) 600 mg calcium-200 unit tablet cetirizine 10 mg tablet (24Hour 10 mg PO DAILY PRN allergy symptoms 09/05/24 09/05/24 History Allergy) conjugated estrogens 0.625 mg/gram 0.625 mg vaginal DAILY 09/05/24 09/05/24 History vaginal cream (Premarin) fenofibrate 160 mg tablet 160 mg PO DAILY 09/05/24 09/05/24 History folic acid 1 mg tablet 1 mg PO DAILY 09/05/24 09/05/24 History gabapentin 300 mg capsule 300 mg PO DAILY 09/05/24 09/05/24 History (Neurontin) omega 4-vca-dky-fish oil 1,200 mg 2 cap PO DAILY 09/05/24 09/05/24 History (144 mg-216 mg) capsule (Fish Oil) omeprazole 40 mg capsule,delayed 40 mg PO Q12H 09/05/24 09/05/24 History release oxcarbazepine 300 mg tablet 300 mg PO DAILY 09/05/24 09/05/24 History (Trileptal) Allergies Allergy/AdvReac Type Severity Reaction Status Date / Time amoxicillin AdvReac Severe Unknown Verified 09/05/24 15:40 clarithromycin AdvReac Severe Unknown Verified 09/05/24 15:40 levofloxacin AdvReac Severe Unknown Verified 09/05/24 15:40 naproxen (From Naprosyn) AdvReac Severe Wheezing Verified 09/05/24 15:40 sulfamethoxazole (From AdvReac Severe Vomiting Verified 09/05/24 15:40 Bactrim) trimethoprim (From Bactrim) AdvReac Severe Vomiting Verified 09/05/24 15:40 Exam Constitutional Vital Signs, click to edit/add: Last Vital Signs Temp 97.9 F 09/05/24 15:21 Pulse 61 09/05/24 15:21 Resp 22 H 09/05/24 17:50 BP 165/91 H 09/05/24 15:21 Pulse Ox 96 09/05/24 17:20 O2 Del Method Room Air 09/05/24 15:21 Documenting provider has reviewed patient's vital signs: yes Common normals: apparent distress (Moderate distress secondary to pain and nausea) Respiratory Common normals: normal respiratory effort and no retractions Cardio Common normals: regular rhythm; irregular rate Rate: tachycardic GI Common normals: Normal to inspection, nondistended, normoactive bowel sounds present and soft to palpation; tender Palpation: tender (Pain and left lower quad, pain in left lower quadrant with palp of RLQ) and rebound tenderness present Results Labs Labs: Short CBC 09/05/24 Range/Units 16:05 WBC 5.6 (4.0-11.0) 10^3/uL Hgb 11.8 L (12.0-16.0) g/dL Hct 35.7 L (36.0-48.0) % Plt Count 226 (150-450) 10^3/uL BMP 09/05/24 16:05 Sodium 143 Potassium 3.3 L Chloride 108 H Carbon Dioxide 28.7 BUN 12.0 Creatinine 1.03 H Glucose 101 Calcium 8.7 Liver Function 09/05/24 Range/Units 16:05 Total Bilirubin 0.4 (0.2-1.0) mg/dL AST 17 (15-37) U/L ALT 14 (14-59) U/L Alkaline Phosphatase 49 (46-116) U/L Albumin 3.5 (3.4-5.0) g/dL Urine 09/05/24 Range/Units 17:40 Urine Color Yellow (YELLOW) Urine Clarity Clear (CLEAR) Urine pH 7.5 (5.0-9.0) Ur Specific [place] 1.015 (1.005-1.025) Urine Protein Negative (NEG/TRACE) mg/dL Urine Glucose (UA) Negative (NEGATIVE) mg/dL Assessment and Plan Assessment and Plan (1) Dehydration: (2) Acute hypokalemia: (3) Abdominal pain: Plan Respiratory distress, uncontrolled hypertension, hypokalemia, acute abdominal findings Acute abdomen likely secondary to diverticulitis, early and mild with no significant low white blood cell count elevation but that is not uncommon with early acute diverticulitis, she has the physical exam findings of pain in left lower quadrant, positive mild rebound, pain in left lower quadrant with palpation of right lower quadrant. Start patient on IV antibiotics, check lactate Hypokalemia-supplement Iron deficiency anemia-monitor daily Hypertension-continue with home medications Peripheral neuropathy continue with home medications GERD-changed to IV Protonix Admit findings: Patient presented with abdominal pain. Exam consistent with acute diverticulitis but no significant finding on CT scan. Medically necessary treatment may only span 1 midnight. Observation status.
[2024-09-05 19:24] LABS: Erythrocyte Sedimentation Rate 6 mm/hr (<=30)
[2024-09-05 19:31] LABS: C Reactive Protein <0.50 mg/dL (<=0.50)
--- OUTSIDE RECORDS SUMMARY | 2024-09-05 19:58 | XMS_ITS | CCD ---
Author Organization [facility] Care Team Providers Care Grass Farmer Name Role Phone Doni Rivera Unavailable DO Kyle Gottlieb Primary Care Provider DO Kulwinder Dao Attending Provider [phone] DO Kulwinder Dao Referring Provider [phone] Kyle Gottlieb Unavailable BULL, DR MURPHY Primary Care Unavailable BALL, DR MURPHY Attending Unavailable BALL, DR MURPHY Consulting Unavailable BALL, DR MURPHY Admitting Unavailable BALL, DR MURPHY Attending Unavailable BALL, DR MURPHY Consulting Unavailable BULL, DR MURPHY Primary Care Unavailable BULL, DR MURPHY Admitting Unavailable KIARA, DR BUCKY Florez Consulting Unavailable BULL, DR MURPHY Admitting Unavailable BALL, DR MURPHY Attending Unavailable BALL, DR MURPHY Consulting Unavailable BULL, DR MURPHY Primary Care Unavailable NEFJUHI, NANDO Consulting Unavailable BALL, DR MURPHY Attending Unavailable BALL, DR MURPHY Primary Care Unavailable BALL, DR MURPHY Admitting Unavailable HOY ., DR MATTHEWS Consulting Unavailable NADERER, DR ANA MARIA Lambert Admitting Unavailable NADERER, DR ANA MARIA Lambert Attending Unavailable BALL, DR MURPHY Primary Care Unavailable ZIEBER, DR BUCKY Florez Consulting Unavailable NADERER, DR ANA MARIA Lambert Consulting Unavailable KATKO, CARLOS Acosta Consulting Unavailable JAE, MOY Consulting Unavailable SISTER, MARGOT Consulting Unavailable HEGG, RAKESH Consulting Unavailable RASTEGAR, KELVIN Consulting Unavailable BALL, DR MURPHY Admitting Unavailable BALL, DR MUPRHY Attending Unavailable BALL, DR MURPHY Consulting Unavailable BALL, DR MURPHY Primary Care Unavailable NEFJUHI, NANDO Consulting Unavailable DO Kyle Gottlieb Primary Care Provider DO Kulwinder Dao Attending Provider Tonya Harrison Unavailable Kyel Gottlieb MD Primary Care Provider DO Kyle Gottlieb Primary Care Provider DO Kulwinder Dao Attending Provider Kulwinder Dao Attending Unavailable Kulwinder Dao Admitting Unavailable Kyle Gottlieb Primary Care Unavailable Kyle Gottlieb DO Primary Care Provider Kulwinder Dao DO Attending Provider [phone] SHIVAM PONCE Attending Unavailable MEL HAYES Attending Unavailable SHIVAM PONCE Attending Unavailable SHIVAM PONCE Attending Unavailable KULWINDER DAO Attending Unavailable SHIVAM PONCE Attending Unavailable SHIVAM PONCE Attending Unavailable SHIVAM PONCE Attending Unavailable Allergies Allergy Classification Reported Allergen(s) Allergy Type Date of Onset Reaction(s) Facility (20 sources) Amoxicillin Drug Allergy 11-29-19 22 Unknown, [facility] (20 sources) Clarithromycin Drug Allergy 11-29-19 22 Unknown, [facility] (20 sources) Naproxen Drug Allergy 11-29-[address] [facility] (20 sources) Sulfamethoxazole / Trimethoprim Drug Allergy 02-17-20 23 Unknown [facility] (20 sources) LEVOFLAXIN Propensity to adverse reactions 09-17-19 24 Unknown, Unknown Reaction [facility] (11 sources) Sulfamethoxazole / Trimethoprim; Translations: [Bactrim] Drug Allergy 11-19-[address] [facility] (20 sources) levoFLOXacin; Translations: [Levofloxacin] Drug Allergy 11-29-19 [facility] (20 sources) Sulfamethoxazole Drug Allergy 11-29-19 [address] [facility] (20 sources) Trimethoprim Drug Allergy 11-29-[address] [facility] (1 source) Amoxicillin Drug Allergy [facility] (1 source) Clarithromycin Drug Allergy [facility] (1 source) Naproxen Drug Allergy 11-19-[address] [facility] (17 sources) Baclofen Drug Allergy Unknown [facility] (17 sources) levoFLOXacin Drug Allergy Unknown [facility] Other (17 sources) Penicillin Drug Allergy Unknown [facility] Other (17 sources) predniSONE Drug Allergy Unknown [facility] Other (20 sources) Biaxin XL *MACROLIDES* Propensity to adverse reactions 09-17-19 Unknown, Unknown Reaction [facility] (2 sources) Allergies Reconciled Propensity to adverse reactions Unknown [facility] Other (2 sources) patient allergy list reviewed by nurse or physicia Propensity to adverse reactions 09-10-19 16 Comment:Done [facility] Other (17 sources) corticosteroid and/or corticosteroid derivative (FN) Drug allergy Unknown [facility] Other (20 sources) Substance with sulfonamide structure and antibacterial mechanism of action (substance) Drug allergy 05-27-20 Unknown [facility] (17 sources) Substance with penicillin structure and antibacterial mechanism of action (substance) Drug allergy Unknown [facility] Other (10 sources) Clarithromycin Allergy to substance 11-29-19 [facility] (14 sources) Corticosteroids Allergy to substance 09-17-19 Unknown Reaction [facility] (14 sources) Penicillins Allergy to substance 09-17-19 Unknown Reaction [facility] (14 sources) Sulfonamides (Antibiotic) Allergy to substance 09-17-19 Unknown Reaction [facility] (8 sources) Corticosteroids and derivatives Drug Allergy 03-09-20 24 Unknown [facility] (8 sources) Macrolides And Ketolides Drug Allergy 10-21-19 24 Unknown [facility] Medications Current Medications Medication Drug Class(es) Dates Sig (Normalized) Sig (Original) benazepril hydrochloride 5 mg oral tablet (20 sources) Angiotensin Converting Enzyme Inhibitor Start: 03-08-2024 take 1 tablet by mouth once daily Benazepril 5 mg tablet Active 0 .ROUTE .COMPLEX March 08, 2024 7:40am TAKE 1 TABLET BY MOUTH ONCE DAILY Start: 03-08-2024 take 1 tablet by [place] once daily Benazepril Active 0 .ROUTE .COMPLEX March 08, 2024 8:40am TAKE 1 TABLET BY MOUTH ONCE DAILY Start: 11-28-2021 End: 03-08-2024 take 1 tablet by mouth once daily Benazepril 5 mg tablet Discontinued 5 MG PO Daily November 27, 2021 11:00pm March 08, 2024 7:40am Benazepril HCl A ctive bisoprolol fumarate 2.5 [...] 600+D Plus Minerals) 600-400 MG-UNIT chewable tablet (11 sources) Calcium Carbonat e-Vit D-Min (Calcium 600+D Plus Minerals) 600-400 MG-UNIT chewable tablet every 12 (twelve) hours. Active Calcium Carbonat e-Vit D-Min (Calcium 600+D Plus Minerals) 600-400 MG-UNIT chewable tablet every 12 (twelve) hours. 0 Active dicyclomine hydrochloride 20 mg oral tablet (20 sources) Anticholinergic Start: 10-21-2023 take 1 tablet by mouth four times daily Dicyclomine 20 mg tablet Active 20 MG PO Four times daily October 21, 2023 12:00am take 1 tablet by mouth every six hours Dicyclomine HCl 20 MG 1 tablet Orally QID Active docusate sodium 100 mg oral capsule (11 sources) docusate sodium (Colace) 100 MG capsule 1 (one) time each day at the same time. Active estradiol 0.1 mg/ml vaginal cream (8 sources) Estrogen Start: 05-03-2024 estradiol (Est race) 0.1 MG/GM vaginal cream Indications: Hormone replacement therapy Use 0.5 g vaginally once weekly. 42.5 g 05/03/2024 Active estrogens, conjugated (residential) 0.625 mg/ml vaginal cream (20 sources) Estrogen Start: 11-28-2021 Conjugated Est rogens (Premarin) 0.625 mg/gram cream Active 1 APPLIC TOPICAL As Directed November 27, 2021 11:00pm Start: 12-31-2016 End: 05-03-2024 Estrogens Conjugated (Premar in) 0.625 MG/GM cream 1/2gram Vaginal twice per week for 90 days 12/31/2016 05/03/2024 Discontinued (Cost of medication) Premarin 0.625 M G/GM as directed Vaginal Active Premarin 0.625 M G/GM as directed Vaginal Active fenofibrate 160 mg oral tablet (20 sources) Peroxisome Proliferator Receptor alpha Agonist Start: 11-04-2023 take 1 tablet by mouth once daily Fenofibrate 160 mg tablet Active 0 .ROUTE .COMPLEX November 04, 2023 6:09pm TAKE 1 TABLET BY MOUTH ONCE DAILY Start: 11-04-2023 [facility] Fenofibrate Active 0 .ROUTE .COMPLEX November 04, 2023 7:09pm TAKE 1 TABLET BY MOUTH ONCE DAILY Start: 11-28-2021 End: 11-04-2023 fenofibrate (Triglide) 160 M G tablet 11/17/2022 Active Start: 06-12-2010 take 1 capsule by mo [facility] once daily at mealtime fenofibrate micronized (Lofibra) 134 MG capsule take 1 capsule (134MG) by ORAL route every day with food Oral 06/12/2010 Active Fish Oils (20 sources) take [...] BY MOUTH EVERY DAY FOR 30 DAYS 02/05/2023 Active furosemide 40 mg oral tablet (1 source) Loop Diuretic Start: 12-17-2022 take 1 tablet by mouth every twenty-four hours Furosemide 40 MG 1 tablet Orally Once a day for 7 days Dec, Active gabapentin 300 mg oral capsule (20 sources) Anti-epileptic Agent Start: 07-18-2024 take 1 capsule by mouth once daily Gabapentin 300 mg capsule Active 0 .ROUTE .COMPLEX July 18, 2024 12:58pm TAKE 1 CAPSULE BY MOUTH ONCE DAILY Start: 06-06-2009 End: 07-18-2024 take 1 tablet by mouth once at bedtime gabapentin (Neurontin) 300 MG capsule 1 tablet Oral Q HS 06/06/2009 Active take 1 capsule by [facility] every eight hours Neurontin 300 MG 1 capsule Orally Three times a day Active hydrocortisone acetate 25 mg rectal suppository (20 sources) Corticosteroid Start: 04-18-2024 hydrocortisone (Anusol-HC) 25 MG suppository UNWRAP AND INSERT 1 SUPPOSITORY RECTALLY EVERYDAY AT BEDTIME 04/18/2024 Active Start: 10-21-2023 Proctozone-HC 2.5 % rectal cream 04/13/2024 Active Start: 11-28-2021 End: 11-25-2023 Hydrocortisone Acetate (Anuc ort-Hc) 25 mg suppository Discontinued 25 MG NJ Daily at bedtime October 21, 2023 12:00am November 25, 2023 10:27am Proctozone-HC 2. 5 % APPLY TOPICALLY 2 TO 4 TIMES DAILY for 90 Active Proctosol HC 2.5 % 1 application to affected area Rectal Twice a day for 30 days Active Anucort-HC Activ e Hydrocortisone Acetate (Anucort-Hc) 25 mg suppository (13 sources) Start: 11-25-2023 Hydrocortisone Acetate (Anucort-Hc) 25 mg suppository Active 25 MG NJ Daily at bedtime 30 08November 25, 2023 10:27am Start: 11-25-2023 Hydrocortisone Acetate (Anucort-Hc) 25 mg suppository Active 25 MG NJ Daily at bedtime 30 08November 25, 2023 11:27am ipratropium bromide 0.042 mg/actuat metered dose nasal spray (10 sources) Anticholinergic Start: 02-16-2023 take 2 spray(s) [...] 02/16/2023 Active metroNIDAZOLE 500 mg oral tablet (10 sources) Nitroimidazole Antimicrobial Start: 03-09-2024 take 1 tablet by mouth every eight hours Metronidazole 500 mg tablet Active 500 MG PO Every 8 hours 27 03March 08, 2024 11:00pm ondansetron 4 mg disintegrating oral tablet (10 sources) Serotonin-3 Receptor Antagonist Start: 03-09-2024 take 1 tablet by mouth every six hours as needed for nausea and vomiting Ondansetron 4 mg tablet,disintegrat ing Active 4 MG PO Every 6 hours as needed for nausea and vomiting 24 01March 08, 2024 11:00pm OXcarbazepine 300 mg oral tablet (20 sources) Anti-epileptic Agent Start: 01-12-2024 take 1 tablet by mouth once daily at bedtime Oxcarbazepine 300 mg tablet Active 0 .ROUTE .COMPLEX 90 January 12, 2024 1:14pm TAKE 1 TABLET BY MOUTH EVERY NIGHT AT BEDTIME Start: 06-06-2009 End: 01-12-2024 take 1 tablet by mouth once daily OXcarbazepine (Trileptal) 300 MG tablet take 1 tablet (300MG) by ORAL route every day Oral 06/06/2009 Active pantoprazole 40 mg delayed release oral tablet (20 sources) Proton Pump Inhibitor Start: 12-28-2020 take 1 tablet by mouth twice daily Pantoprazole 40 mg tablet,delayed release (DR/EC) Active 40 MG PO Twice daily November 27, 2021 11:00pm pantoprazole (Pr otonix) 40 MG EC tablet 1 (one) time each day at the same time. Active Stool Softener (20 sources) Stool Softener A ctive tiZANidine 4 mg oral tablet (20 sources) Central alpha-2 Adrenergic Agonist Start: 11-28-2021 Tizanidine (Zanaflex ) 4 mg Tablet Active 2 MG PO Bedtime as needed for Pain November 27, 2021 11:00pm Start: 06-06-2009 take 1 tablet by [place] once at bedtime tiZANidine (Zanaflex) 4 MG capsule take 1 tablet (4MG) by ORAL route every bedtime Oral 06/06/2009 Active take 1 tablet by [place] every eight hours Zanaflex 4 MG 1 tablet as needed Orally every 8 hrs Active valACYclovir 500 mg oral tablet (11 sources) Herpesvirus Nucleoside Analog DNA Polymerase Inhibitor, Herpes Simplex Virus Nucleoside Analog DNA Polymerase Inhibitor, Herpes Zoster Virus Nucleoside Analog DNA Polymerase Inhibitor Start: 07-10-2023 take 1 tablet by mouth three times daily valACYclovir (Valtrex) 500 MG tablet TAKE 1 TABLET BY MOUTH THREE TIMES A DAY DIRECTED 07/10/2023 Active Completed/Discontinued Medications Medication Drug Class(es) Dates Sig (Normalized) Sig (Original) azithromycin 250 mg oral tablet (20 sources) Macrolide Antimicrobial Start: 11-25-2023 End: 06-14-2024 Azithromycin 250 mg tablet Discontinued 250 MG PO As Directed 02 09May 10, 2024 11:00pm June 14, 2024 10:09am Start: 09-17-2023 Azithromycin 2 50 MG as directed Orally daily for 5 days Sep, Active Start: 08-28-2023 Azithromycin 2 50 MG 2 tablet on the first day, then 1 tablet daily for 4 days Orally Once a day for 5 day(s) Aug, Active B-12 - up to 1000 mcg (20 sources) Start: 09-15-2023 B-12 - up to 1 000 mcg Sep, 1000 mcg Start: 08-13-2023 B-12 [...] to 1 000 mcg Mar, 1000 mcg bupivacaine hydrochloride 5 mg/ml injectable solution (7 sources) Amide Local Anesthetic Start: 08-18-2024 End: 08-18-2024 bupivacaine (Marcaine) 0.5 % injection 5 mg Start: 08-18-2024 End: 08-18-2024 5 mg (1 mL), Injection, Once , On [facility] 08/18/24 at 1745, For 1 dose Start: 07-11-2024 bupivacaine (M arcaine) 0.5 % injection 5 mg Start: 06-01-2024 End: 06-01-2024 bupivacaine (Marcaine) 0.5 % injection 5 mg Start: 06-01-2024 End: 06-01-2024 5 mg (1 mL), Injection, Once , On Thu06/01/24 at 1630, For 1 dose cefdinir 300 mg oral capsule (20 sources) Cephalosporin Antibacterial Start: 10-21-2023 End: 06-14-2024 take 1 capsule by mouth twice daily Cefdinir 300 mg capsule Discontinued 300 MG PO Twice daily October 21, 2023 12:00am June 14, 2024 10:09am Start: 12-14-2022 Cefdinir 300 M G as directed Orally bid Dec, Active cetirizine hydrochloride 10 mg oral tablet (20 sources) Histamine-1 Receptor Antagonist Start: 11-28-2021 End: 10-21-2023 take 1 tablet by mouth once daily Cetirizine (Zyrtec) 10 mg tablet Discontinued 10 MG PO Daily November 27, 2021 11:00pm October 21, 2023 11:30am dexamethasone phosphate 4 mg/ml injectable solution (18 sources) Corticosteroid Start: 08-18-2024 End: 08-18-2024 dexAMETHasone sod phos (Decadron) injection 4 mg Start: 08-18-2024 End: 08-18-2024 4 mg (1 mL), Injection, Once , On Laura 08/18/24 at 1745, For 1 dose Start: 07-11-2024 dexAMETHasone sod phos (Decadron) injection 4 mg Start: 06-01-2024 End: 06-01-2024 dexAMETHasone sod phos (Deca dron) injection 4 mg Start: 06-01-2024 End: 06-01-2024 4 mg (1 mL), Injection, Once , On Thu06/01/24 at 1630, For 1 dose Start: 03-17-2024 End: 06-12-2024 take 1 tablet by mouth in the morning dexAMETHasone (Decadron) 2 MG tablet Indications: Trochanteric bursitis of both hips Take 1 tablet (2 mg) by mouth in the morning and 1 tablet (2 mg) in the evening. Take with meals. Do all this for 10 days. 20 tablet 06/02/2024 06/12/2024 Active Hydrocortisone (Proctosol Hc ) 2.5 % Cream With Applicator (16 sources) Start: 11-28-2021 End: 10-21-2023 Hydrocortisone (Proctosol Hc ) 2.5 % Cream With Applicator Discontinued 1 EACH NJ Daily as needed for Hemorrhoids November 27, 2021 11:00pm October 21, 2023 11:30am Start: 11-28-2021 End: 10-21-2023 Hydrocortisone (Proctosol Hc ) 2.5 % Cream With Applicator Discontinued 1 EACH NJ Daily November 28, 2021 12:00am October 21, 2023 12:30pm Start: 11-28-2021 Hydrocortisone (Proctosol Hc) 2.5 % Cream With Applicator Active 1 EACH NJ Daily November 27, 2021 11:00pm Start: 11-28-2021 Hydrocortisone (Proctosol Hc) 2.5 % Cream With Applicator Active 1 EACH NJ Daily November 28, 2021 12:00am Rush 5-Imu-Zzc-Fish Oil (Fish Oil) 1,200 (144-216) mg Capsule (16 sources) Start: 11-28-2021 End: 10-21-2023 take 2 capsules by mouth at bedtime Rush 2-Pds-Kww-Fish Oil (Fish Oil) 1,200 (144-216) mg Capsule Discontinued 2 CAP PO Bedtime November 27, 2021 11:00pm October 21, 2023 11:30am Start: 11-28-2021 End: 10-21-2023 take 2 capsules by mouth at bedtime Rush 1-Brl-Olv-Fish Oil (Fish Oil) 1,200 (144-216) mg Capsule Discontinued 2 CAP PO Bedtime November 28, 2021 12:00am October 21, 2023 12:30pm Start: 11-28-2021 take 2 capsules by m outh at bedtime Rush 1-Jbr-Mab-Fish Oil (Fish Oil) 1,200 (144-216) mg Capsule Active 2 CAP PO Bedtime November 27, 2021 11:00pm Start: 11-28-2021 take 2 capsules by m outh at bedtime Rush 6-Tni-Hda-Fish Oil (Fish Oil) 1,200 (144-216) mg Capsule Active 2 CAP PO Bedtime November 28, 2021 12:00am Problems Active Problems Problem Classification Problem Date Documented Da te Episodic/Chronic Abdominal pain (20 sources) Abdominal pain; Translations: [Unspecified abdominal pain] Onset: 4 Resolved: 2 Episodic Acute and unspecified renal failure (1 source) Acute kidney failure, unspecified; Translations: [ACUTE KIDNEY FAILURE UNSPECIFIED] Onset: 3 Episodic Acute bronchitis (20 sources) Acute bronchitis; Translations: [Acute bronchitis due to other specified organisms] Onset: 4 05-11-2024 Episodic Anxiety disorders (2 sources) Generalized anxiety disorder; Translations: [Generalized anxiety disorder] Chronic Chronic kidney disease (20 sources) Chronic kidney disease stage 3A ; Translations: [Stage 3a chronic kidney disease] Onset: 4 10-21-2023 Chronic Chronic obstructive pulmonary disease and bronchiectasis (20 sources) Mucopurulent chronic bronchitis; Translations: [Mucopurulent chronic bronchitis] Onset: 4 Chronic Conditions associated with dizziness or vertigo (5 sources) Dizziness and giddiness; Translations: [Dizziness and giddiness] Onset: 4 07-20-2024 Episodic Deficiency and other anemia (10 sources) Anemia, unspecified; Translations: [ANEMIA UNSPECIFIED] Onset: 3 Episodic Deficiency and other anemia (1 source) Iron deficiency anemia, unspecified; Translations: [IRON DEFICIENCY ANEMIA UNSPECIFIED] Onset: 3 Episodic Deficiency and other anemia (1 source) Dietary folate deficiency anemia Episodic Deficiency and other anemia (15 sources) [...] INFECTION UNSPEC] Onset: 3 Episodic Intracranial injury (20 sources) Concussion injury of body structure; Translations: [Concussion] Onset: 4 05-17-2024 Episodic Menopausal disorders (12 sources) Atrophic vaginitis; Translations: [Postmenopausal atrophic vaginitis] Onset: 3 01-26-2023 Chronic Mood disorders (20 sources) Mild recurrent major depression; Translations: [Major depressive disorder, recurrent, mild] Onset: 9 Chronic Multiple sclerosis (20 sources) Multiple sclerosis; Translations: [Multiple sclerosis] Onset: 3 Chronic Nausea and vomiting (20 sources) Nausea and vomiting; Translations: [Nausea with vomiting, unspecified] Onset: 4 Resolved: 2 Episodic Nonmalignant breast conditions (11 sources) Fibrocystic disease of breast; Translations: [Diffuse cystic mastopathy of unspecified breast] Onset: 3 01-26-2023 Chronic Nutritional deficiencies (1 source) Moderate protein-calorie malnutrition; Translations: [MODERATE PROTEIN-CALORIE MLNUTRIT] Onset: 3 Chronic Nutritional deficiencies (1 source) Deficiency of other specified B group vitamins Episodic Osteoarthritis (2 sources) Osteoarthritis; Translations: [Polyosteoarthritis, unspecified] Chronic Other aftercare (1 source) Other [place] [facility] (current[facility] drug therapy; Translations: [OTH [facility] CURRENT DRUG THERAPY] Onset: 3 Episodic Other aftercare (2 sources) Long-term current use of drug therapy; Translations: [Other [place] [facility] (current[facility] drug therapy] Episodic Other and unspecified [...] sources) Fibromyalgia Episodic Other connective tissue disease (10 sources) Foot pain; Translations: [Pain in left foot] 03-09-2024 Episodic Other connective tissue disease (4 sources) Pain in left foot; Translations: [Pain in limb] 03-09-2024 Episodic Other connective tissue disease (12 sources) Bilateral trochanteric bursitis; Translations: [Trochanteric bursitis, right hip] Onset: 4 01-21-2024 Episodic Other diseases of kidney and ureters (2 sources) Disorder of kidney and/or ureter; Translations: [Other specified disorders of kidney and ureter] Chronic Other diseases of veins and lymphatics (5 [...] lung field Episodic Other nervous system disorders (13 sources) Brachial plexus disorder; Translations: [Brachial plexus disorders] Onset: 3 01-26-2023 Chronic Other nervous system disorders (11 sources) Disorder of nerve root and/or plexus; Translations: [Other nerve root and plexus disorders] Onset: 4 01-21-2024 Chronic Other non-traumatic joint disorders (2 sources) [...] (2 sources) Overweight; Translations: [Overweight] Episodic Other screening for suspected conditions (not mental disorders or infectious disease) (15 sources) Other specified abnormal findings of blood chemistry; Translations: [Imaging of abdomen abnormal] Onset: 9 Resolved: 1 Episodic Other upper respiratory disease (20 sources) [...] user; Translations: [Nicotine dependence, cigarettes, in remission] Onset: 4 Chronic Superficial injury; contusion (20 sources) Contusion of hip; Translations: [Contusion of left hip, initial encounter] Onset: 4 Resolved: 1 05-17-2024 Episodic Unclassified (3 sources) LOW BACK PAIN, UNSPECIFIED; Translations: [LOW BACK PAIN, UNSPECIFIED] Onset: 2 Unclassified (2 sources) Long-term current use of drug therapy; Translations: [Long-term (current) use of other medications] Onset: 9 Urinary tract infections (20 sources) Cystitis; Translations: [...] and of unspecified site] Onset: 11-30-2015 Episodic Cardiac dysrhythmias (20 sources) Palpitations; Translations: [Bradycardia, unspecified] Onset: 03-30-2024 Episodic Chronic kidney disease (8 sources) Chronic kidney disease; Translations: [CHRONIC KIDNEY DISEASE STAGE 3A] Onset: 02-04-2023 Deficiency and other anemia (20 sources) Pernicious anemia; Translations: [Vitamin B12 deficiency anemia due to intrinsic factor deficiency] Onset: 03-30-2024 10-21-2023 Episodic Deficiency and other anemia (20 sources) Anemia; Translations: [Anemia, unspecified] Onset: 03-30-2024 11-23-2023 Episodic Esophageal disorders (6 sources) Esophageal disorders; [...] Blepharitis; Translations: [Blepharitis, unspecified] Onset: 10-12-2015 Episodic Malaise and fatigue (20 sources) Malaise; Translations: [Other malaise] Onset: 12-25-2017 Episodic Menopausal disorders (1 source) Drug therapy finding; Translations: [Hormone replacement therapy] 05-03-2024 Episodic Noninfectious gastroenteritis (2 sources) Non-infective enteritis and colitis; Translations: [Noninfective gastroenteritis and colitis, unspecified] Onset: 11-18-2013 Episodic Nonspecific chest pain (2 sources) Chest pain; Translations: [Chest pain, unspecified] Onset: 03-08-2015 Episodic Other acquired deformities (11 sources) Acquired spondylolisthesis; Translations: [Spondylolisthesis, site unspecified] Onset: 01-26-2023 01-26-2023 Episodic Other connective tissue disease (2 sources) Pain in left lower limb; Translations: [Pain in left leg] Onset: 03-31-2016 Episodic Other connective tissue disease (11 sources) Muscle pain; Translations: [Myalgia, unspecified site] Onset: 01-26-2023 01-26-2023 Episodic Other connective tissue disease (8 sources) Pain in left foot; Translations: [Pain in left foot] Onset: 03-30-2024 03-30-2024 Episodic Other diseases of veins and lymphatics (20 sources) Peripheral venous insufficiency; Translations: [Venous insufficiency (chronic) (peripheral)] Onset: 12-26-2013 10-21-2023 Episodic Other gastrointestinal disorders (2 sources) 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; Translations: [Irritable bowel syndrome with constipation] Resolved: 11-30-2020 Chronic Other lower respiratory disease (2 sources) Dyspnea; Translations: [Dyspnea, unspecified] Onset: 03-08-2015 Episodic Other nervous system disorders (11 sources) Skin sensation disturbance; Translations: [Unspecified disturbances of skin sensation] Onset: 01-26-2023 01-26-2023 Episodic Other skin disorders (2 sources) Generalized [...] Spondylosis; intervertebral disc disorders; other back problems (13 sources) Low back pain; Translations: [Low back [...] Facility MM screening mammo BI w/CADo n 06-23-2024 MM screening mammo BI w/CAD [facility] Main [place] [address] [place] [address] Mammography Report Signed Patient: Gina Pierre MR#: [id number] : 1940 Acct:[id number] Age/Sex: 83 / F ADM Date: 06/23/24 Loc: OR Room: Type: [facility] Attending Dr: Kulwinder Dao DO Copies to: DO Kulwinder Franz DO Ordering Provider: Kulwinder Dao DO Date of Service: 06/23/24 MM/MM screening mammo BI w/CAD: SCREENING Z12.31 CLINICAL DATA: Screening for malignancy. BILATERAL SCREENING MAMMOGRAMS - FULL FIELD DIGITAL WITH TOMOSYNTHESIS AND CAD Tomosynthesis craniocaudal and mediolateral oblique views of both breasts were obtained using low- dose digital technique. Comparison is made to prior studies from 05/13/2023, 04/14/2022, 04/11/2021, and 04/09/2020. This examination was reviewed with the aid of CAD. There are scattered fibroglandular densities. Benign-appearing calcifications are present bilaterally. Similar focal asymmetries are present. Benign-appearing lymph nodes are noted along the chest wall. There are no dominant masses, typically malignant calcifications or architectural distortion. [...] for the next mammogram. Impression dictated by: Neeraj Wilson M.D.06/23/2024 1:11 PM Dictation Location: [facility] Transcribed By: ISAURA 06/23/24 1311 Dictated By: Neeraj Wilson II, MD 06/23/24 1308 Signed By: 06/23/24 1311 Normal The Counts Include 234 Beds At [facility] Basophils Auto (Bld) [#/Vol] on 05-25-2024 Basophils (Bld) [#/Vol] 0.0 10 3/uL 0.0-0.[address] [facility] Basophils (Bld) [#/Vol] Automated basophil count 0.0-0.[address] [facility] Basophils/100 WBC Auto (Bld) on 05-25-2024 Basophils/100 WBC (Bld) 0.8 % 0.2-2.[address] [facility] Basophils/100 WBC (Bld) Automated basophil % 0.2-2.[address] [facility] Eosinophils/100 WBC Auto (Bl d)on 05-25-2024 Eosinophils/100 WBC (Bld) 1.9 % 0.9-7.[address] [facility] Eosinophils/100 WBC (Bld) Automated eosinophil % 0.9-7.[address] [facility] Erythrocyte distribution wid th Auto (RBC) [Ratio]on 05-25-2024 Erythrocyte distribution width (RBC) [Ratio] 13.7 % 11.0-15.[address] [facility] Erythrocyte distribution width (RBC) [Ratio] Erythrocyte distribution width [Ratio] by Automated count 11.0-15.[address] [facility] Estimated glomerular filtrat ion rate (GFR) non- Americanon 05-25-2024 GFR/1.73 sq M.predicted among non-blacks MDRD (S/P/Bld) [Vol rate/Area] 45 mL/min/{1.73_m2} Low >=[address] [facility] GFR/1.73 sq M.predicted among non-blacks MDRD (S/P/Bld) [Vol rate/Area] Estimated glomerular filtration rate (GFR) non- Low >=[address] [facility] Globulin Calc (S) [Mass/Vol] on 05-25-2024 Globulin (S) [Mass/Vol] 2.8 g/dL [facility] Globulin (S) [Mass/Vol] Serum globulin measurement by calculation (mass/volume) [facility] Hematocrit Auto (Bld) [Volum e fraction]on 05-25-2024 Hematocrit (Bld) [Volume fraction] 36.1 % 36.0-48.[address] [facility] Hematocrit (Bld) [Volume fraction] Hematocrit [Volume Fraction] of Blood by Automated count 36.0-48.[address] [facility] Hemoglobin [Mass/volume] in Bloodon 05-25-2024 Hemoglobin (Bld) [Mass/Vol] 11.7 g/dL Low 12.0-16.[address] [facility] Hemoglobin (Bld) [Mass/Vol] Hemoglobin [Mass/volume] in Blood Low 12.0-16.[address] [facility] Iron binding capacity [Mass/ volume] in Serum or Plasmaon 05-25-2024 Iron binding capacity [Mass/Vol] 410.0 ug/dL 250.0-450.[address] [facility] Iron binding capacity [Mass/Vol] Iron binding capacity [Mass/volume] in Serum or Plasma 250.0-450.[address] [facility] Iron saturation [Mass Fracti on] in Serum or Plasmaon 05-25-2024 Iron saturation [Mass fraction] 33.2 % [facility] Iron saturation [Mass fraction] Iron saturation [Mass Fraction] in Serum or Plasma [facility] Laboratory - Chemistry and C hemistry - challengeon 05-25-2024 Albumin [Mass/Vol] 3.3 g/dL Low 3.4-5.0 [facility] ALP [Catalytic activity/Vol] 47 U/L 46-[address] [facility] ALT [Catalytic activity/Vol] 17 U/L 14-[address] [facility] AST [Catalytic activity/Vol] 21 U/L 15-[address] [facility] Bilirubin [Mass/Vol] 0.6 mg/dL 0.2-1.[address] [facility] Calcium [Mass/Vol] 8.7 mg/dL 8.5-10.1 [facility] Chloride [Moles/Vol] 104 mmol/L 98-[address] [facility] CO2 [Moles/Vol] 28.8 mmol/L 21.0-32.0 [facility] Cobalamin (Vitamin B12) [Mass/Vol] 963 pg/mL 232-[address] [facility] Comment on above: Performed at: [facility] [address] [id number] Director: Nicanor Omalley PhD, Phone: [phone] Creatinine [Mass/Vol] 1.15 mg/dL High 0.55-1.[address] [facility] Ferritin [Mass/Vol] 44.0 ng/mL 8.0-252.0 [facility] GFR/1.73 sq M.predicted MDRD (S/P/Bld) [Vol rate/Area] 55 mL/min/{1.73_m2} Low >=[address] [facility] Glucose [Mass/Vol] 111 mg/dL High 74-106 [facility] Iron [Mass/Vol] 136.0 ug/dL 50.0-170.0 [facility] Potassium [Moles/Vol] 3.7 mmol/L 3.5-5.[address] [facility] Protein [Mass/Vol] 6.1 g/dL Low 6.4-8.2 [facility] Sodium [Moles/Vol] 140 mmol/L 136-145 [facility] TSH Qn 2.056 m[IU]/L 0.358-3.[address] [facility] Urea nitrogen [Mass/Vol] 20.0 mg/dL High 7.0-18.[address] [facility] Urea nitrogen/Creatinine [Mass ratio] 17.4 mg/mg [facility] Laboratory - Hematology and Cell countson 05-25-2024 Immature granulocytes/100 WBC (Bld) 0.8 % High 0.0-0.[address] [facility] Leukocytes [#/volume] correc bill for nucleated erythrocytes in Blood by Automated counon 05-25-2024 WBC corrected for nucl RBC Auto (Bld) [#/Vol] 4.8 10 3/uL 4.0-11.[address] [facility] WBC corrected for nucl RBC Auto (Bld) [#/Vol] Leukocytes [#/volume] corrected for nucleated erythrocytes in Blood by Automated coun .0-11.[address] [facility] Lymphocytes Auto (Bld) [#/Vo l]on 05-25-2024 Lymphocytes (Bld) [#/Vol] 1.1 10 3/uL Low 1.2-3.[address] [facility] Lymphocytes (Bld) [#/Vol] Lymphocytes [#/volume] in Blood by Automated count Low 1.2-3.[address] [facility] Lymphocytes/100 WBC Auto (Bl d)on 05-25-2024 Lymphocytes/100 WBC (Bld) 23.3 % 20.5-60.[address] [facility] Lymphocytes/100 WBC (Bld) Lymphocytes/100 leukocytes in Blood by Automated count 20.5-60.[address] [facility] MCH Auto (RBC) [Entitic mass ]on 05-25-2024 MCH (RBC) [Entitic mass] 30.9 pg 26.7-34.[address] [facility] MCH (RBC) [Entitic mass] MCH [Entitic mass] by Automated count 26.7-34.[address] [facility] MCHC Auto (RBC) [Mass/Vol]on 05-25-2024 MCHC (RBC) [Mass/Vol] 32.4 g/dL 29.9-35.[address] [facility] MCHC (RBC) [Mass/Vol] MCHC [Mass/volume] by Automated count 29.9-35.[address] [facility] MCV Auto (RBC) [Entitic vol] on 05-25-2024 MCV (RBC) [Entitic vol] 95.3 fL 81.0-99.[address] [facility] MCV (RBC) [Entitic vol] MCV [Entitic volume] by Automated count 81.0-99.[address] [facility] Monocytes Auto (Bld) [#/Vol] on 05-25-2024 Monocytes (Bld) [#/Vol] 0.3 10 3/uL 0.3-0.[address] [facility] Monocytes (Bld) [#/Vol] Automated blood monocyte count 0.3-0.[address] [facility] Monocytes/100 WBC Auto (Bld) on 05-25-2024 Monocytes/100 WBC (Bld) 7.0 % 1.7-12.[address] [facility] Monocytes/100 WBC (Bld) Automated monocyte % 1.7-12.[address] [facility] Neutrophils Auto (Bld) [#/Vo l]on 05-25-2024 Neutrophils (Bld) [#/Vol] 3.2 10 3/uL 1.4-6.[address] [facility] Neutrophils (Bld) [#/Vol] Neutrophils [#/volume] in Blood by Automated count 1.4-6.[address] [facility] Neutrophils/100 WBC Auto (Bl d)on 05-25-2024 Neutrophils/100 WBC (Bld) 66.2 % 43.0-75.[address] [facility] Neutrophils/100 WBC (Bld) Automated neutrophil % 43.0-75.[address] [facility] No Panel Informationon 05-25 Eosinophils # (Auto) 0.1 10 3/uL 0.0-0.[address] [facility] Folate 27.00 ng/mL 8.60-58.[address] [facility] Immature Granulocyte # (Auto) 0.04 10 3/uL High 0.00-0.[address] [facility] Platelet mean volume Auto (B ld) [Entitic vol]on 05-25-2024 Platelet mean volume (Bld) [Entitic vol] 10.8 fL 9.5-13.[address] [facility] Platelet mean volume (Bld) [Entitic vol] Platelet mean volume [Entitic volume] in Blood by Automated count 9.5-13.[address] [facility] Platelets Auto (Bld) [#/Vol] on 05-25-2024 Platelets (Bld) [#/Vol] 186 10 3/uL 150-[address] [facility] Platelets (Bld) [#/Vol] Platelets [#/volume] in Blood by Automated count 150-[address] [facility] RBC Auto (Bld) [#/Vol]on RBC (Bld) [#/Vol] 3.79 10 6/uL Low 4.20-5.40 [facility] RBC (Bld) [#/Vol] Erythrocytes [#/volume] in Blood by Automated count Low 4.20-5.[address] [facility] Serum or plasma albumin/glob ulin mass ratioon 05-25-2024 Albumin/Globulin [Mass ratio] 1.2 {ratio} [facility] Albumin/Globulin [Mass ratio] Serum or plasma albumin/globulin mass ratio [facility] Serum or plasma anion gap de terminationon 05-25-2024 Anion gap [Moles/Vol] 10.9 mmol/L [facility] Anion gap [Moles/Vol] Serum or plasma anion gap determination [facility] Basophils Auto (Bld) [#/Vol] on 11-25-2023 Basophils (Bld) [#/Vol] 0.0 10 3/uL 0.0-0.[address] [facility] Basophils/100 WBC Auto (Bld) on 11-25-2023 Basophils/100 WBC (Bld) 0.4 % 0.2-2.[address] [facility] Eosinophils/100 WBC Auto (Bl d)on 11-25-2023 Eosinophils/100 WBC (Bld) 2.9 % 0.9-7.[address] [facility] Erythrocyte distribution wid th Auto (RBC) [Ratio]on 11-25-2023 Erythrocyte distribution width (RBC) [Ratio] 13.2 % 11.0-15.[address] [facility] Hematocrit Auto (Bld) [Volum e fraction]on 11-25-2023 Hematocrit (Bld) [Volume fraction] 36.7 % 36.0-48.[address] [facility] Hemoglobin [Mass/volume] in Bloodon 11-25-2023 Hemoglobin (Bld) [Mass/Vol] 11.5 g/dL 12.0-16.[address] [facility] Laboratory - Chemistry and C hemistry - challengeon 11-25-2023 Ferritin [Mass/Vol] 27.0 ng/mL 8.0-252.0 [facility] Laboratory - Hematology and Cell countson 11-25-2023 Immature granulocytes/100 WBC (Bld) 0.4 % 0.0-0.[address] [facility] Leukocytes [#/volume] correc bill for nucleated erythrocytes in Blood by Automated counon 11-25-2023 WBC corrected for nucl RBC Auto (Bld) [#/Vol] 4.8 10 3/uL 4.0-11.[address] [facility] Lymphocytes Auto (Bld) [#/Vo l]on 11-25-2023 Lymphocytes (Bld) [#/Vol] 1.3 10 3/uL 1.2-3.[address] [facility] Lymphocytes/100 WBC Auto (Bl d)on 11-25-2023 Lymphocytes/100 WBC (Bld) 27.7 % 20.5-60.[address] [facility] MCH Auto (RBC) [Entitic mass ]on 11-25-2023 MCH (RBC) [Entitic mass] 29.9 pg 26.7-34.[address] [facility] MCHC Auto (RBC) [Mass/Vol]on 11-25-2023 MCHC (RBC) [Mass/Vol] 31.3 g/dL 29.9-35.[address] [facility] MCV Auto (RBC) [Entitic vol] on 11-25-2023 MCV (RBC) [Entitic vol] 95.3 fL 81.0-99.[address] [facility] Monocytes Auto (Bld) [#/Vol] on 11-25-2023 Monocytes (Bld) [#/Vol] 0.4 10 3/uL 0.3-0.[address] [facility] Monocytes/100 WBC Auto (Bld) on 11-25-2023 Monocytes/100 WBC (Bld) 7.8 % 1.7-12.[address] [facility] Neutrophils Auto (Bld) [#/Vo l]on 11-25-2023 Neutrophils (Bld) [#/Vol] 2.9 10 3/uL 1.4-6.[address] [facility] Neutrophils/100 WBC Auto (Bl d)on 11-25-2023 Neutrophils/100 WBC (Bld) 60.8 % 43.0-75.[address] [facility] No Panel Informationon 11-24 Eosinophils # (Auto) 0.1 10 3/uL 0.0-0.[address] [facility] Folate 24.20 ng/mL 8.60-58.[address] [facility] Immature Granulocyte # (Auto) 0.02 10 3/uL 0.00-0.[address] [facility] Vitamin B12 Level >6000.0 pg/mL 193.0-986.0 [facility] Platelet mean volume Auto (B ld) [Entitic vol]on 11-25-2023 Platelet mean volume (Bld) [Entitic vol] 10.5 fL 9.5-13.[address] [facility] Platelets Auto (Bld) [#/Vol] on 11-25-2023 Platelets (Bld) [#/Vol] 187 10 3/uL 150-[address] [facility] RBC Auto (Bld) [#/Vol]on RBC (Bld) [#/Vol] 3.85 10 6/uL 4.20-5.40 [facility] Quick Fluon 08-28-2023 FLUAV Ab CF (S) [Titer] Negative Stockr Other FLUBV Ab CF (S) [Titer] Negative Stockr Other CBC AUTO DIFFon 02-03-2023 BASO # 0.0 103/ul Normal 0.0-0.1 [facility] Comment on above: Performed By: #### L IVER, BMP, LIPA, EDSON #### [facility] [address] [place] [address] Dr. Julia Velasquez Basophils/100 WBC (Bld) 0.4 % Normal 0.2-2.0 [facility] Comment on above: Performed By: #### L IVER, BMP, LIPA, EDSON #### [facility] [address] [place] [address] Dr. Julia Velasquez EO # 0.3 103/ul Normal 0.0-0.7 [facility] Comment on above: Performed By: #### L IVER, BMP, LIPA, EDSON #### [facility] [address] [place] [address] Dr. Julia Velasquez Eosinophils/100 WBC (Bld) 5.5 % Normal 0.9-7.0 [facility] Comment on above: Performed By: #### L IVER, BMP, LIPA, EDSON #### [facility] [address] [place] [address] Dr. Julia Velasquez Erythrocyte distribution width (RBC) [Ratio] 14.1 % Normal 11.0-15.0 [facility] Comment on above: Performed By: #### L IVER, BMP, LIPA, EDSON #### [facility] [address] [place] [address] Dr. Julia Velasquez Hematocrit (Bld) [Volume fraction] 36.4 % Normal 36.0-48.0 [facility] Comment on above: Performed By: #### L IVER, BMP, LIPA, EDSON #### [facility] [address] [place] [address] Dr. Julia Velasquez Hemoglobin (Bld) [Mass/Vol] 11.4 g/dL Critically low 12.0-16.0 [facility] Comment on above: Performed By: #### L IVER, BMP, LIPA, EDSNO #### [facility] [address] [place] [address] Dr. Julia Velasquez IG # 0.02 10e3/ul Normal 0.00-0.03 [facility] Comment on above: Performed By: #### L IVER, BMP, LIPA, EDSON #### [facility] [address] [place] [address] Dr. Julia Velasquez IG % 0.4 % Normal 0.0-0.5 [facility] Comment on above: Performed By: #### L IVER, BMP, LIPA, EDSON #### [facility] [address] [place] [address] Dr. Julia Velasquez LYMPH # 1.4 103/ul Normal 1.2-3.8 [facility] Comment on above: Performed By: #### L IVER, BMP, LIPA, EDSON #### [facility] [address] [place] [address] Dr. Julia Velasquez Lymphocytes/100 WBC (Bld) 28.4 % Normal 20.5-60.0 [facility] Comment on above: Performed By: #### L IVER, BMP, LIPA, EDSON #### [facility] [address] [place] [address] Dr. Julia Velasquez MANUAL DIFF REQ NO Normal [facility] Comment on above: Performed By: #### L IVER, BMP, LIPA, EDSON #### [facility] [address] [place] [address] Dr. Julia Velasquez MCH (RBC) [Entitic mass] 30.0 pg Normal 26.7-34.0 [facility] Comment on above: Performed By: #### L IVER, BMP, LIPA, EDSON #### [facility] [address] [place] [address] Dr. Julia Velasquez MCHC (RBC) [Mass/Vol] 31.3 g/dL Normal 29.9-35.[address] [facility] Comment on above: Performed By: #### L IVER, BMP, LIPA, EDSON #### [facility] [address] [place] [address] Dr. Julia Velasquez MCV (RBC) [Entitic vol] 95.8 fL Normal 81.0-99.[address] [facility] Comment on above: Performed By: #### L IVER, BMP, LIPA, EDSON #### [facility] [address] [place] [address] Dr. Julia Velasquez MONO # 0.4 103/ul Normal 0.3-0.[address] [facility] Comment on above: Performed By: #### L IVER, BMP, LIPA, EDSON #### [facility] [address] [place] [address] Dr. Julia Velasquez Monocytes/100 WBC (Bld) 7.8 % Normal 1.7-12.[address] [facility] Comment on above: Performed By: #### L IVER, BMP, LIPA, EDSON #### [facility] [address] [place] [address] Dr. Julia Velasquez NEUT # 2.8 103/ul Normal 1.4-6.5 [facility] Comment on above: Performed By: #### L IVER, BMP, LIPA, EDSON #### [facility] [address] [place] [address] Dr. Julia Velasquez Neutrophils/100 WBC (Bld) 57.5 % Normal 43.0-75.[address] [facility] Comment on above: Performed By: #### L IVER, BMP, LIPA, EDSON #### [facility] [address] [place] [address] Dr. Julia Velasquez Platelet mean volume (Bld) [Entitic vol] 10.6 fL Normal 9.5-13.[address] [facility] Comment on above: Performed By: #### L IVER, BMP, LIPA, EDSON #### [facility] [address] [place] [address] Dr. Julia Velasquez PLT 212 103/ul Normal 150-[address] [facility] Comment on above: Performed By: #### L IVER, BMP, LIPA, EDSON #### [facility] [address] [address] [address] Julia Velasquez RBC 3.80 106/ul Critically low 4.20-5.40 [facility] Comment on above: Performed By: #### L IVER, BMP, LIPA, EDSON #### [facility] [address] [address] [address] Julia Velasquez WBC 4.9 103/ul Normal 4.0-11.0 [facility] Comment on above: Performed By: #### L IVER, BMP, LIPA, EDSON #### [facility] [address] [place] [address] Dr. Julia Velasquez FERRITINon 02-03-2023 Ferritin [Mass/Vol] 63.0 ng/mL Normal 8.0-252.0 [facility] Comment on above: Performed By: #### L IVER, BMP, LIPA, EDSON #### [facility] [address] [place] [address] Dr. Julia Velasquez IRON AND TIBCon 02-03-2023 % SATURATION 25.5 % Normal [facility] Comment on above: Performed By: #### L IVER, BMP, LIPA, EDSON #### [facility] [address] [place] [address] Dr. Julia Velasquez Iron [Mass/Vol] 100.0 ug/dL Normal 50.0-170.0 [facility] Comment on above: Performed By: #### L IVER, BMP, LIPA, EDSON #### [facility] [address] [place] [address] Dr. Julia Velasquez TIBC DIRECT 392.0 ug/dL Normal 250.0-450.0 [facility] Comment on above: Performed By: #### L IVER, BMP, LIPA, EDSON #### [facility] [address] [place] [address] Dr. Julia Velasquez PROF CHEM 8 (BAS METB)on Anion gap [Moles/Vol] 13.0 mmol/L Normal [facility] Comment on above: Performed By: #### B MP #### [facility] [address] [address] [address] Julia Velasquez Calcium [Mass/Vol] 8.9 mg/dL Normal 8.5-10.1 [facility] Comment on above: Performed By: #### B MP #### [facility] [address] [address] [address] Julia Velasquez Chloride [Moles/Vol] 106 mmol/L Normal 98-107 [facility] Comment on above: Performed By: #### B MP #### [facility] [address] [address] [address] Julia Velasquez CO2 [Moles/Vol] 27.7 mmol/L Normal 21.0-32.0 [facility] Comment on above: Performed By: #### B MP #### [facility] [address] [address] [address] Julia Velasquez Creatinine [Mass/Vol] 1.24 mg/dL Critically high 0.55-1.02 [facility] Comment on above: Performed By: #### B MP #### [facility] [address] [address] [address] Julia Velasquez EGFR-AF BERMUDIAN 50 mL/min/1.73m2 Critically low >=60 [facility] Comment on above: Performed By: #### B MP #### [facility] [address] [address] [address] Julia Velasquez EGFR-NON AF BERMUDIAN 42 mL/min/1.73m2 Critically low >=60 [facility] Comment on above: Performed By: #### B MP #### [facility] [address] [address] [address] Julia Velasquez Glucose [Mass/Vol] 99 mg/dL Normal 74-106 [facility] Comment on above: Performed By: #### B MP #### [facility] [address] [address] [address] Julia Velasquez Potassium [Moles/Vol] 3.7 mmol/L Normal 3.5-5.1 [facility] Comment on above: Performed By: #### B MP #### [facility] [address] [address] [address] Julia Velasquez Sodium [Moles/Vol] 143 mmol/L Normal 136-145 [facility] Comment on above: Performed By: #### B MP #### [facility] [address] [address] [address] Julia Velasquez Urea nitrogen [Mass/Vol] 12.0 mg/dL Normal 7.0-18.0 [facility] Comment on above: Performed By: #### B MP #### [facility] [address] [address] [address] Julia Velasquez Urea nitrogen/Creatinine [Mass ratio] 9.7 mg/mg Normal [facility] Comment on above: Performed By: #### B MP #### [facility] [address] [place] [address] Dr. Julia Velasquez UA RANDOM W/MICROSCOPICon BACTERIA TRACE Abnormal NONE SEEN [facility] Comment on above: Performed By: #### L IVER, BMP, LIPA, EDSON #### [facility] [address] [place] [address] Dr. Julia Velasquez Bilirubin Ql (U) Negative Normal NEGATIVE [facility] Comment on above: Performed By: #### L IVER, BMP, LIPA, EDSON #### [facility] [address] [place] [address] Dr. Julia Velasquez CAST NONE SEEN Normal NONE SEEN [facility] Comment on above: Performed By: #### L IVER, BMP, LIPA, EDSON #### [facility] [address] [place] [address] Dr. Julia Velasquez Clarity (U) CLEAR Normal CLEAR [facility] Comment on above: Performed By: #### L IVER, BMP, LIPA, EDSON #### [facility] [address] [place] [address] Dr. Julia Velasquez Color (U) LT. YELLOW Normal YELLOW [facility] Comment on above: Performed By: #### L IVER, BMP, LIPA, EDSON #### [facility] [address] [address] [address] Julia Velasquez Crystals LM Nom (Urine sed) NONE SEEN Normal NONE SEEN [facility] Comment on above: Performed By: #### L IVER, BMP, LIPA, EDSON #### [facility] [address] [place] [address] Dr. Julia Velasquez Epithelial cells LM Ql (Urine sed) MODERATE Abnormal NONE SEEN /RARE [facility] Comment on above: Performed By: #### L IVER, BMP, LIPA, EDSON #### [facility] [address] [address] [address] Julia Velasquez Glucose Ql (U) Negative Normal NEGATIVE [facility] Comment on above: Performed By: #### L IVER, BMP, LIPA, EDSON #### [facility] [address] [address] [address] Julia Velasquez Hemoglobin Ql (U) Negative Normal NEGATIVE [facility] Comment on above: Performed By: #### L IVER, BMP, LIPA, EDSON #### [facility] [address] [address] [address] Julia Velasquez Ketones Ql (U) Negative Normal NEGATIVE [facility] Comment on above: Performed By: #### L IVER, BMP, LIPA, EDSON #### [facility] [address] [address] [address] Julia Velasquez LEUKOCYTES Negative Normal NEGATIVE [facility] Comment on above: Performed By: #### L IVER, BMP, LIPA, EDSON #### [facility] [address] [address] [address] Julia Velasquez MUCOUS NONE SEEN Normal NONE SEEN [facility] Comment on above: Performed By: #### L IVER, BMP, LIPA, EDSON #### [facility] [address] [address] [address] Julia Velasquez Nitrite Ql (U) Negative Normal NEGATIVE [facility] Comment on above: Performed By: #### L IVER, BMP, LIPA, EDSON #### [facility] [address] [address] [address] Julia Velasquez pH (U) 7.5 [pH] Normal 5-[address] [facility] Comment on above: Performed By: #### L IVERNANCY LIPA, EDSON #### [facility] [address] [place] [address] Dr. Julia Velasquez RBC 0-2 Normal 0-2 [facility] Comment on above: Performed By: #### L IVER, BMP, LIPA, EDSON #### [facility] [address] [place] [address] Dr. Julia Velasquez SPEC GRAVITY 1.010 Normal 1.005-<=1.025 [facility] Comment on above: Performed By: #### L IVNANCY VARGAS, LIPA, EDSON #### [facility] [address] [place] [address] Dr. Julia Velasquez UA PROTEIN Negative Normal NEGATIVE/ TRACE [facility] Comment on above: Performed By: #### L IVNANCY VARGAS, LIPA, EDSON #### [facility] [address] [place] [address] Dr. Julia Velasquez Urobilinogen Qn (U) 2.0 {Avery'U}/dL Abnormal 0.2 - 1. 0 [facility] Comment on above: Performed By: #### L IVNANCY VARGAS, LIPA, EDSON #### [facility] [address] [place] [address] Dr. Julia Velasquez WBC NONE SEEN Normal NONE SEEN [facility] Comment on above: Performed By: #### L IVERNANCY, LIPA, EDSON #### [facility] [address] [place] [address] Dr. Julia Velasquez VIT B12 AND FOLATEon 023 Cobalamin (Vitamin B12) [Mass/Vol] 199.0 pg/mL Normal 193.0-986.0 [facility] Comment on above: Performed By: #### L IVER, BMP, LIPA, EDSON #### [facility] [address] [place] [address] Dr. Julia Velasquez FOLATE 27.10 ng/mL Normal 8.60-58.90 [facility] Comment on above: Performed By: #### L NANCY MONDRAGON LIPA EDSON #### [facility] [address] [place] [address] Dr. Julia Velasquez XR CHEST 2 Von [...] NANDO CARLSON Date: 2023-02-03 14:[address] [facility] CBC AUTO DIFFon 01-07-2023 BASO # 0.0 103/ul Normal 0.0-0.[address] [facility] Comment on above: Performed By: #### L NANCY MONDRAGON LIPA EDSON #### [facility] [address] [place] [address] Dr. Julia Velasquez Basophils/100 WBC (Bld) 0.6 % Normal 0.2-2.[address] [facility] Comment on above: Performed By: #### L NANCY MONDRAGON LIPFausto EDSON #### [facility] [address] [place] [address] Dr. Julia Velasquez EO # 0.1 103/ul Normal 0.0-0.[address] [facility] Comment on above: Performed By: #### NANCY PALOMO LIPA EDSON #### [facility] [address] [place] [address] Dr. Julia Velasquez Eosinophils/100 WBC (Bld) 3.3 % Normal 0.9-7.0 [facility] Comment on above: Performed By: #### L IVER, BMP, LIPA, EDSON #### [facility] [address] [place] [address] Dr. Julia Velasquez Erythrocyte distribution width (RBC) [Ratio] 16.1 % Critically high 11.0-15.0 [facility] Comment on above: Performed By: #### L IVER, BMP, LIPA, EDSON #### [facility] [address] [place] [address] Dr. Julia Velasquez Hematocrit (Bld) [Volume fraction] 34.9 % Critically low 36.0-48.0 [facility] Comment on above: Performed By: #### L IVER, BMP, LIPA, EDSON #### [facility] [address] [place] [address] Dr. Julia Velasquez Hemoglobin (Bld) [Mass/Vol] 11.1 g/dL Critically low 12.0-16.0 [facility] Comment on above: Performed By: #### L IVER, BMP, LIPA, EDSON #### [facility] [address] [place] [address] Dr. Julia Velasquez IG # 0.05 10e3/ul Critically high 0.00-0.03 [facility] Comment on above: Performed By: #### L IVER, BMP, LIPA, EDSON #### [facility] [address] [place] [address] Dr. Julia Velasquez IG % 1.4 % Critically high 0.0-0.5 [facility] Comment on above: Performed By: #### L IVER, BMP, LIPA, EDSON #### [facility] [address] [place] [address] Dr. Julia Velasquez LYMPH # 1.1 103/ul Critically low 1.2-3.8 [facility] Comment on above: Performed By: #### L IVER, BMP, LIPA, EDSON #### [facility] [address] [place] [address] Dr. Julia Velasquez Lymphocytes/100 WBC (Bld) 31.6 % Normal 20.5-60.0 [facility] Comment on above: Performed By: #### L IVER, BMP, LIPA, EDSON #### [facility] [address] [place] [address] Dr. Julia Velasquez MANUAL DIFF REQ NO Normal [facility] Comment on above: Performed By: #### L IVER, BMP, LIPA, EDSON #### [facility] [address] [place] [address] Dr. Julia Velasquez MCH (RBC) [Entitic mass] 30.4 pg Normal 26.7-34.[address] [facility] Comment on above: Performed By: #### L IVER, BMP, LIPA, EDSON #### [facility] [address] [place] [address] Dr. Julia Velasquez MCHC (RBC) [Mass/Vol] 31.8 g/dL Normal 29.9-35.[address] [facility] Comment on above: Performed By: #### L IVER, BMP, LIPA, EDSON #### [facility] [address] [place] [address] Dr. Julia Velasquez MCV (RBC) [Entitic vol] 95.6 fL Normal 81.0-99.0 [facility] Comment on above: Performed By: #### L IVER, BMP, LIPA, EDSON #### [facility] [address] [place] [address] Dr. Julia Velasquez MONO # 0.2 103/ul Critically low 0.3-0.8 [facility] Comment on above: Performed By: #### L IVER, BMP, LIPA, EDSON #### [facility] [address] [place] [address] Dr. Julia Velasquez Monocytes/100 WBC (Bld) 6.1 % Normal 1.7-12.[address] [facility] Comment on above: Performed By: #### L IVER, BMP, LIPA, EDSON #### [facility] [address] [place] [address] Dr. Julia Velasquez NEUT # 2.1 103/ul Normal 1.4-6.5 [facility] Comment on above: Performed By: #### L IVER, BMP, LIPA, EDSON #### [facility] [address] [place] [address] Dr. Julia Velasquez Neutrophils/100 WBC (Bld) 57.0 % Normal 43.0-75.0 [facility] Comment on above: Performed By: #### L IVER, BMP, LIPA, EDSON #### [facility] [address] [place] [address] Dr. Julia Velasquez Platelet mean volume (Bld) [Entitic vol] 10.4 fL Normal 9.5-13.[address] [facility] Comment on above: Performed By: #### L IVER, BMP, LIPA, EDSON #### [facility] [address] [place] [address] Dr. Julia Velasquez PLT 167 103/ul Normal 150-[address] [facility] Comment on above: Performed By: #### L IVER, BMP, LIPA, EDSON #### [facility] [address] [place] [address] Dr. Julia Velasquez RBC 3.65 106/ul Critically low 4.20-5.40 [facility] Comment on above: Performed By: #### L IVER, BMP, LIPA, EDSON #### [facility] [address] [place] [address] Dr. Julia Velasquez WBC 3.6 103/ul Critically low 4.0-11.0 [facility] Comment on above: Performed By: #### L IVER, BMP, LIPA, EDSON #### [facility] [address] [place] [address] Dr. Julia Velasquez FERRITINon 01-07-2023 Ferritin [Mass/Vol] 148.0 ng/mL Normal 8.0-252.0 [facility] Comment on above: Performed By: #### L IVER, BMP, LIPA, EDSON #### [facility] [address] [place] [address] Dr. Julia Velasquez IRON AND TIBCon 01-07-2023 % SATURATION 27.1 % Normal [facility] Comment on above: Performed By: #### L IVER, BMP, LIPA, EDSON #### [facility] [address] [place] [address] Dr. Julia Velasquez Iron [Mass/Vol] 96.0 ug/dL Normal 50.0-170.0 [facility] Comment on above: Performed By: #### L IVER, BMP, LIPA, EDSON #### [facility] [address] [place] [address] Dr. Julia Velasquez TIBC DIRECT 354.0 ug/dL Normal 250.0-450.0 [facility] Comment on above: Performed By: #### L IVER, BMP, LIPA, EDSON #### [facility] [address] [place] [address] Dr. Julia Velasquez PROF CHEM 8 (BAS METB)on Anion gap [Moles/Vol] 11.8 mmol/L Normal [facility] Comment on above: Performed By: #### L IVER, BMP, LIPA, EDSON #### [facility] [address] [place] [address] Dr. Julia Velasquez Calcium [Mass/Vol] 8.3 mg/dL Critically low 8.5-10.1 [facility] Comment on above: Performed By: #### L IVER, BMP, LIPA, EDSON #### [facility] [address] [place] [address] Dr. Julia Velasquez Chloride [Moles/Vol] 108 mmol/L Critically high 98-107 [facility] Comment on above: Performed By: #### L IVER, BMP, LIPA, EDSON #### [facility] [address] [place] [address] Dr. Julia Velasquez CO2 [Moles/Vol] 27.8 mmol/L Normal 21.0-32.0 [facility] Comment on above: Performed By: #### L IVER, BMP, LIPA, EDSON #### [facility] [address] [place] [address] Dr. Julia Velasquez Creatinine [Mass/Vol] 1.00 mg/dL Normal 0.55-1.02 [facility] Comment on above: Performed By: #### L IVER, BMP, LIPA, EDSON #### [facility] [address] [place] [address] Dr. Julia Velasquez EGFR-AF BERMUDIAN >60 Normal >=60 [facility] Comment on above: Performed By: #### L IVER, BMP, LIPA, EDSON #### [facility] [address] [address] [address] Julia Velasquez EGFR-NON AF BERMUDIAN 53 mL/min/1.73m2 Critically low >=60 [facility] Comment on above: Performed By: #### L IVER, BMP, LIPA, EDSON #### [facility] [address] [address] [address] Julia Velasquez Glucose [Mass/Vol] 92 mg/dL Normal 74-106 [facility] Comment on above: Performed By: #### L IVER, BMP, LIPA, EDSON #### [facility] [address] [place] [address] Dr. Julia Velasquez Potassium [Moles/Vol] 3.6 mmol/L Normal 3.5-5.1 [facility] Comment on above: Performed By: #### L IVER, BMP, LIPA, EDSON #### [facility] [address] [address] [address] Julia Velasquez Sodium [Moles/Vol] 144 mmol/L Normal 136-145 [facility] Comment on above: Performed By: #### L IVER, BMP, LIPA, EDSON #### [facility] [address] [address] [address] Julia Velasquez Urea nitrogen [Mass/Vol] 8.0 mg/dL Normal 7.0-18.0 [facility] Comment on above: Performed By: #### L IVER, BMP, LIPA, EDSON #### [facility] [address] [address] [address] Julia Velasquez Urea nitrogen/Creatinine [Mass ratio] 8.0 mg/mg Normal [facility] Comment on above: Performed By: #### L IVER, BMP, LIPA, EDSON #### [facility] [address] [address] [address] Julia Velasquez RETICULOCYTEon 01-07-2023 RETIC 4.40 % Critically high 0.60-3.10 [facility] Comment on above: Performed By: #### L IVER, NANCY, LIPA, EDSON #### [facility] [address] [address] [address] Julia Velasquez VIT B12 AND FOLATEon 023 Cobalamin (Vitamin B12) [Mass/Vol] 322.0 pg/mL Normal 193.0-986.[address] [facility] Comment on above: Performed By: #### L IVER BMP, LIPA, EDSON #### [facility] [address] [address] [address] Julia Velasquez FOLATE 6.10 ng/mL Critically low 8.60-58.90 [facility] Comment on above: Performed By: #### L IVNANCY VARGAS LIPA, EDSON #### [facility] [address] [address] [address] Julia Velasquez XR CHEST 2 Von [...] NANDO CARLSON Date: 2023-01-07 11:[address] [facility] CBC W MANUAL DIFFon 12-15-19 23 ATYPICAL LYMPH # Normal [facility] Comment on above: Performed By: #### L IVER, BMP, LIPA, EDSON #### [facility] [address] [address] [address] Julia Velasquez ATYPICAL LYMPH % Normal [facility] Comment on above: Performed By: #### L IVER, BMP, LIPA, EDSON #### [facility] [address] [place] [address] Dr. Julia Velasquez BAND # 1.0 103/ul Critically high 0.0-0.3 [facility] Comment on above: Performed By: #### L IVER, BMP, LIPA, EDSON #### [facility] [address] [place] [address] Dr. Julia Velasquez BAND % 9 % Critically high 0-5 [facility] Comment on above: Performed By: #### L IVER, BMP, LIPA, EDSON #### [facility] [address] [place] [address] Dr. Julia Velasquez BASOM # 0.00 103/ul Normal 0.00-0.[address] [facility] Comment on above: Performed By: #### L IVER, BMP, LIPA, EDSON #### [facility] [address] [place] [address] Dr. Julia Velasquez BASOM % 0.0 % Critically low 0.2-2.0 [facility] Comment on above: Performed By: #### L IVER, BMP, LIPA, EDSON #### [facility] [address] [place] [address] Dr. Julia Velasquez BLAST # Normal [facility] Comment on above: Performed By: #### L IVER, BMP, LIPA, EDSON #### [facility] [address] [place] [address] Dr. Julia Velasquez BLAST % Normal [facility] Comment on above: Performed By: #### L IVER, BMP, LIPA, EDSON #### [facility] [address] [place] [address] Dr. Julia Velasquez CORRECTED WBC Normal 4.0-11.0 [facility] Comment on above: Performed By: #### L IVER, BMP, LIPA, EDSON #### [facility] [address] [place] [address] Dr. Julia Velasquez EOS # 0.22 103/ul Normal 0.00-0.[address] [facility] Comment on above: Performed By: #### L IVER, BMP, LIPA, EDSON #### [facility] [address] [address] [address] Julia Velasquez EOS% 2.0 % Normal 0.9-7.0 [facility] Comment on above: Performed By: #### L IVER, BMP, LIPA, EDSON #### [facility] [address] [address] [address] Julia Velasquez HCT 27.3 % Critically low 36.0-48.0 [facility] Comment on above: Performed By: #### L IVER, BMP, LIPA, EDSON #### [facility] [address] [address] [address] Julia Velasquez HGB 8.5 g/dl Critically low 12.0-16.0 [facility] Comment on above: Performed By: #### L IVER, BMP, LIPA, EDSON #### [facility] [address] [address] [address] Julia Velasquez HYPOCHROMASIA SLIGHT Normal [facility] Comment on above: Performed By: #### L IVER, BMP, LIPA, EDSON #### [facility] [address] [address] [address] Julia Velasquez LYMPHM # 0.99 103/ul Critically low 1.20-3.80 [facility] Comment on above: Performed By: #### L IVER, BMP, LIPA, EDSON #### [facility] [address] [address] [address] Julia Velasquez LYMPHM% 9.0 % Critically low 20.5-60.0 [facility] Comment on above: Performed By: #### L IVER, BMP, LIPA, EDSON #### [facility] [address] [address] [address] Julia Velasquez MCH 28.3 pg Normal 26.7-34.[address] [facility] Comment on above: Performed By: #### L IVER, BMP, LIPA, EDSON #### [facility] [address] [address] [address] Julia Velasquez MCHC 31.1 g/dl Normal 29.9-35.[address] [facility] Comment on above: Performed By: #### L IVER, BMP, LIPA, EDSON #### [facility] [address] [place] [address] Dr. Julia Velasquez MCV 91.0 fL Normal 81.0-99.0 [facility] Comment on above: Performed By: #### L IVER, BMP, LIPA, EDSON #### [facility] [address] [place] [address] Dr. Julia Velasquez METAMYELOCYTE # Normal [facility] Comment on above: Performed By: #### L IVER, BMP, LIPA, EDSON #### [facility] [address] [place] [address] Dr. Julia Velasquez METAMYELOCYTE % Normal [facility] Comment on above: Performed By: #### L IVER, BMP, LIPA, EDSON #### [facility] [address] [place] [address] Dr. Julia Velasquez MONOM# 0.22 103/ul Critically low 0.30-0.80 [facility] Comment on above: Performed By: #### L IVER, BMP, LIPA, EDSON #### [facility] [address] [place] [address] Dr. Julia Velasquez MONOM% 2.0 % Normal 1.7-12.0 [facility] Comment on above: Performed By: #### L IVER, BMP, LIPA, EDSON #### [facility] [address] [place] [address] Dr. Julia Velasquez MPV 10.9 fL Normal 9.5-13.5 [facility] Comment on above: Performed By: #### L IVER, BMP, LIPA, EDSON #### [facility] [address] [place] [address] Dr. Julia Velasquez MYELOCYTE # Normal [facility] Comment on above: Performed By: #### L IVER, BMP, LIPA, EDSON #### [facility] [address] [place] [address] Dr. Julia Velasquez MYELOCYTE % Normal [facility] Comment on above: Performed By: #### L IVER, BMP, LIPA, EDSON #### [facility] [address] [address] [address] Velasquez [facility] Normal [facility] Comment on above: Performed By: #### L IVER, BMP, LIPA, EDSON #### [facility] [address] [address] [address] Julia Velasquez PLT 240 103/ul Normal 150-450 [facility] Comment on above: Performed By: #### L IVER, BMP, LIPA, EDSON #### [facility] [address] [address] [address] Julia Velasquez RBC 3.00 106/ul Critically low 4.20-5.40 [facility] Comment on above: Performed By: #### L IVER, BMP, LIPA, EDSON #### [facility] [address] [place] [address] Dr. Jluia Velasquez RDW 17.2 % Critically high 11.0-15.0 [facility] Comment on above: Performed By: #### L IVER, BMP, LIPA, EDSON #### [facility] [address] [address] [address] Julia Velasquez SEG # 8.58 103/ul Critically high 1.40-6.50 [facility] Comment on above: Performed By: #### L IVER, BMP, LIPA, EDSON #### [facility] [address] [address] [address] Julia Velasquez SEG % 78.0 % Critically high 43.0-75.0 [facility] Comment on above: Performed By: #### L IVER, BMP, LIPA, EDSON #### [facility] [address] [address] [address] Julia Velasquez WBC 11.0 103/ul Normal 4.0-11.0 [facility] Comment on above: Performed By: #### L IVER, BMP, LIPA, EDSON #### [facility] [address] [address] [address] Julia Velasquez PROF 14(COMP METB)on 023 Albumin [Mass/Vol] 1.3 g/dL Critically low 3.4-5.0 [facility] Comment on above: Performed By: #### C MP #### [facility] [address] [place] [address] Dr. Julia Velasquez Albumin/Globulin [Mass ratio] 0.3 {ratio} Normal [facility] Comment on above: Performed By: #### C MP #### [facility] [address] [place] [address] Dr. Julia Velasquez ALP [Catalytic activity/Vol] 93 U/L Normal 46-116 [facility] Comment on above: Performed By: #### C MP #### [facility] [address] [place] [address] Dr. Julia Velasquez ALT [Catalytic activity/Vol] 30 U/L Normal 14-59 [facility] Comment on above: Performed By: #### C MP #### [facility] [address] [place] [address] Dr. Julia Velasquez Anion gap [Moles/Vol] 13.4 mmol/L Normal [facility] Comment on above: Performed By: #### C MP #### [facility] [address] [place] [address] Dr. Julia Velasquez AST [Catalytic activity/Vol] 71 U/L Critically high 15-37 [facility] Comment on above: Performed By: #### C MP #### [facility] [address] [place] [address] Dr. Julia Velasquez Bilirubin [Mass/Vol] 1.2 mg/dL Critically high 0.2-1.0 [facility] Comment on above: Performed By: #### C MP #### [facility] [address] [place] [address] Dr. Julia Velasquez Calcium [Mass/Vol] 8.1 mg/dL Critically low 8.5-10.1 [facility] Comment on above: Performed By: #### C MP #### [facility] [address] [place] [address] Dr. Julia Velasquez Chloride [Moles/Vol] 116 mmol/L Critically high 98-107 [facility] Comment on above: Performed By: #### C MP #### [facility] [address] [address] [address] Julia Velasquez CO2 [Moles/Vol] 21.3 mmol/L Normal 21.0-32.0 [facility] Comment on above: Performed By: #### C MP #### [facility] [address] [address] [address] Julia Velasquez Creatinine [Mass/Vol] 1.10 mg/dL Critically high 0.55-1.02 [facility] Comment on above: Performed By: #### C MP #### [facility] [address] [address] [address] Julia Velasquez EGFR-AF BERMUDIAN 58 mL/min/1.73m2 Critically low >=60 [facility] Comment on above: Performed By: #### C MP #### [facility] [address] [address] [address] Julia Velasquez EGFR-NON AF BERMUDIAN 48 mL/min/1.73m2 Critically low >=60 [facility] Comment on above: Performed By: #### C MP #### [facility] [address] [address] [address] Julia Velasquez Globulin (S) [Mass/Vol] 3.8 g/dL Normal [facility] Comment on above: Performed By: #### C MP #### [facility] [address] [address] [address] Julia Velasquez Glucose [Mass/Vol] 110 mg/dL Critically high 74-106 [facility] Comment on above: Performed By: #### C MP #### [facility] [address] [address] [address] Julia Velasquez Potassium [Moles/Vol] 4.7 mmol/L Normal 3.5-5.1 [facility] Comment on above: Performed By: #### C MP #### [facility] [address] [address] [address] Julia Velasquez Protein [Mass/Vol] 5.1 g/dL Critically low 6.4-8.[address] [facility] Comment on above: Performed By: #### C MP #### [facility] [address] [address] [address] Julia Velasquez Sodium [Moles/Vol] 146 mmol/L Critically high 136-145 [facility] Comment on above: Performed By: #### C MP #### [facility] [address] [address] [address] Julia Velasquez Urea nitrogen [Mass/Vol] 34.0 mg/dL Critically high 7.0-18.0 [facility] Comment on above: Performed By: #### C MP #### [facility] [address] [address] [address] Julia Velasquez Urea nitrogen/Creatinine [Mass ratio] 30.9 mg/mg Normal [facility] Comment on above: Performed By: #### C MP #### [facility] [address] [place] [address] Dr. Julia Velasquez CBC W MANUAL DIFFon 12-14-19 23 ATYPICAL LYMPH # 0.21 103/ul Normal [facility] Comment on above: Performed By: #### C MP #### [facility] [address] [place] [address] Dr. Julia Velasquez ATYPICAL LYMPH % 1 % Normal [facility] Comment on above: Performed By: #### C MP #### [facility] [address] [place] [address] Dr. Julia Velasquez BAND # 0.2 103/ul Normal 0.0-0.3 [facility] Comment on above: Performed By: #### C MP #### [facility] [address] [place] [address] Dr. Julia Velasquez BAND % 1 % Normal 0-5 [facility] Comment on above: Performed By: #### C MP #### [facility] [address] [place] [address] Dr. Julia Velasquez BASOM # 0.00 103/ul Normal 0.00-0.10 [facility] Comment on above: Performed By: #### C MP #### [facility] [address] [place] [address] Dr. Julia Velasquez BASOM % 0.0 % Critically low 0.2-2.0 [facility] Comment on above: Performed By: #### C MP #### [facility] [address] [address] [address] Julia Velasquez BLAST # Normal [facility] Comment on above: Performed By: #### C MP #### [facility] [address] [address] [address] Julia Velasquez BLAST % Normal [facility] Comment on above: Performed By: #### C MP #### [facility] [address] [address] [address] Julia Velasquez CORRECTED WBC Normal 4.0-11.0 [facility] Comment on above: Performed By: #### C MP #### [facility] [address] [place] [address] Dr. Julia Velasquez EOS # 0.00 103/ul Normal 0.00-0.70 [facility] Comment on above: Performed By: #### C MP #### [facility] [address] [place] [address] Dr. Julia Velasquez EOS% 0.0 % Critically low 0.9-7.0 [facility] Comment on above: Performed By: #### C MP #### [facility] [address] [place] [address] Dr. Julia Velasquez HCT 26.7 % Critically low 36.0-48.0 [facility] Comment on above: Performed By: #### C MP #### [facility] [address] [place] [address] Dr. Julia Velasquez HGB 8.8 g/dl Critically low 12.0-16.0 [facility] Comment on above: Performed By: #### C MP #### [facility] [address] [place] [address] Dr. Julia Velasquez LYMPHM # 1.05 103/ul Critically low 1.20-3.80 [facility] Comment on above: Performed By: #### C MP #### [facility] [address] [address] [address] Julia Velasquez LYMPHM% 5.0 % Critically low 20.5-60.0 [facility] Comment on above: Performed By: #### C MP #### [facility] [address] [place] [address] Dr. Julia Velasquez MCH 29.0 pg Normal 26.7-34.[address] [facility] Comment on above: Performed By: #### C MP #### [facility] [address] [place] [address] Dr. Julia Velasquez MCHC 33.0 g/dl Normal 29.9-35.[address] [facility] Comment on above: Performed By: #### C MP #### [facility] [address] [place] [address] Dr. Julia Velasquez MCV 88.1 fL Normal 81.0-99.[address] [facility] Comment on above: Performed By: #### C MP #### [facility] [address] [place] [address] Dr. Julia Velasquez METAMYELOCYTE # Normal [facility] Comment on above: Performed By: #### C MP #### [facility] [address] [place] [address] Dr. Julia Velasquez METAMYELOCYTE % Normal [facility] Comment on above: Performed By: #### C MP #### [facility] [address] [place] [address] Dr. Julia Velasquez MONOM# 0.21 103/ul Critically low 0.30-0.80 [facility] Comment on above: Performed By: #### C MP #### [facility] [address] [place] [address] Dr. Julia Velasquez MONOM% 1.0 % Critically low 1.7-12.0 [facility] Comment on above: Performed By: #### C MP #### [facility] [address] [place] [address] Dr. Julia Velasquez MPV 10.6 fL Normal 9.5-13.5 [facility] Comment on above: Performed By: #### C MP #### [facility] [address] [address] [address] Julia Velasquez MYELOCYTE # Normal [facility] Comment on above: Performed By: #### C MP #### [facility] [address] [address] [address] Julia Velasquez MYELOCYTE % Normal [facility] Comment on above: Performed By: #### C MP #### [facility] [address] [address] [address] Julia Velasquez NRBC Normal [facility] Comment on above: Performed By: #### C MP #### [facility] [address] [address] [address] Julia Velasquez PLT 271 103/ul Normal 150-450 [facility] Comment on above: Performed By: #### C MP #### [facility] [address] [address] [address] Julia Velasquez RBC 3.03 106/ul Critically low 4.20-5.40 [facility] Comment on above: Performed By: #### C MP #### [facility] [address] [address] [address] Julia Velasquez RDW 16.7 % Critically high 11.0-15.0 [facility] Comment on above: Performed By: #### C MP #### [facility] [address] [address] [address] Julia Velasquez SEG # 19.41 103/ul Critically high 1.40-6.50 [facility] Comment on above: Performed By: #### C MP #### [facility] [address] [address] [address] Julia Velasquez SEG % 92.0 % Critically high 43.0-75.0 [facility] Comment on above: Performed By: #### C MP #### [facility] [address] [address] [address] Julia Velasquez WBC 21.1 103/ul Critically high 4.0-11.0 [facility] Comment on above: Performed By: #### C MP #### [facility] [address] [place] [address] Dr. Julia Velasquez PROF 14(COMP METB)on 023 Albumin [Mass/Vol] 1.4 g/dL Critically low 3.4-5.0 [facility] Comment on above: Performed By: #### C MP #### [facility] [address] [place] [address] Dr. Julia Velasquez Albumin/Globulin [Mass ratio] 0.4 {ratio} Normal [facility] Comment on above: Performed By: #### C MP #### [facility] [address] [place] [address] Dr. Julia Velasquez ALP [Catalytic activity/Vol] 87 U/L Normal 46-116 [facility] Comment on above: Performed By: #### C MP #### [facility] [address] [place] [address] Dr. Julia Velasquez ALT [Catalytic activity/Vol] 26 U/L Normal 14-59 [facility] Comment on above: Performed By: #### C MP #### [facility] [address] [place] [address] Dr. Julia Velasquez Anion gap [Moles/Vol] 14.7 mmol/L Normal [facility] Comment on above: Performed By: #### C MP #### [facility] [address] [place] [address] Dr. Julia Velasquez AST [Catalytic activity/Vol] 59 U/L Critically high 15-37 [facility] Comment on above: Performed By: #### C MP #### [facility] [address] [place] [address] Dr. Julia Velasquez Bilirubin [Mass/Vol] 1.5 mg/dL Critically high 0.2-1.0 [facility] Comment on above: Performed By: #### C MP #### [facility] [address] [place] [address] Dr. Julia Velasquez Calcium [Mass/Vol] 8.1 mg/dL Critically low 8.5-10.1 [facility] Comment on above: Performed By: #### C MP #### [facility] [address] [place] [address] Dr. Julia Velasquez Chloride [Moles/Vol] 118 mmol/L Critically high 98-107 [facility] Comment on above: Performed By: #### C MP #### [facility] [address] [address] [address] Julia Velasquez CO2 [Moles/Vol] 20.6 mmol/L Critically low 21.0-32.0 [facility] Comment on above: Performed By: #### C MP #### [facility] [address] [address] [address] Julia Velasquez Creatinine [Mass/Vol] 1.20 mg/dL Critically high 0.55-1.02 [facility] Comment on above: Performed By: #### C MP #### [facility] [address] [place] [address] Dr. Julia Velasquez EGFR-AF BERMUDIAN 52 mL/min/1.73m2 Critically low >=60 [facility] Comment on above: Performed By: #### C MP #### [facility] [address] [address] [address] Julia Velasquez EGFR-NON AF BERMUDIAN 43 mL/min/1.73m2 Critically low >=60 [facility] Comment on above: Performed By: #### C MP #### [facility] [address] [address] [address] Julia Velasquez Globulin (S) [Mass/Vol] 3.4 g/dL Normal [facility] Comment on above: Performed By: #### C MP #### [facility] [address] [address] [address] Julia Velasquez Glucose [Mass/Vol] 119 mg/dL Critically high 74-106 [facility] Comment on above: Performed By: #### C MP #### [facility] [address] [address] [address] Julia Velasquez Potassium [Moles/Vol] 4.3 mmol/L Normal 3.5-5.1 [facility] Comment on above: Performed By: #### C MP #### [facility] [address] [address] [address] Julia Velasquez Protein [Mass/Vol] 4.8 g/dL Critically low 6.4-8.[address] [facility] Comment on above: Performed By: #### C MP #### [facility] [address] [place] [address] Dr. Julia Velsaquez Sodium [Moles/Vol] 149 mmol/L Critically high 136-145 [facility] Comment on above: Performed By: #### C MP #### [facility] [address] [place] [address] Dr. Julia Velasquez Urea nitrogen [Mass/Vol] 47.0 mg/dL Critically high 7.0-18.0 [facility] Comment on above: Performed By: #### C MP #### [facility] [address] [place] [address] Dr. Julia Velasquez Urea nitrogen/Creatinine [Mass ratio] 39.2 mg/mg Normal [facility] Comment on above: Performed By: #### C MP #### [facility] [address] [place] [address] Dr. Julia Velasquez CBC W MANUAL DIFFon 12-13-19 23 ATYPICAL LYMPH # Normal [facility] Comment on above: Performed By: #### L IVER, BMP, LIPA, EDSON #### [facility] [address] [place] [address] Dr. Julia Velasquez ATYPICAL LYMPH % Normal [facility] Comment on above: Performed By: #### L IVER, BMP, LIPA, EDSON #### [facility] [address] [place] [address] Dr. Julia Velasquez BAND # 0.9 103/ul Critically high 0.0-0.3 [facility] Comment on above: Performed By: #### L IVER, BMP, LIPA, EDSON #### [facility] [address] [place] [address] Dr. Julia Velasquez BAND % 3 % Normal 0-5 [facility] Comment on above: Performed By: #### L IVER, BMP, LIPA, EDSON #### [facility] [address] [place] [address] Dr. Julia Velasquez BASOM # 0.00 103/ul Normal 0.00-0.10 [facility] Comment on above: Performed By: #### L IVER, BMP, LIPA, EDSON #### [facility] [address] [place] [address] Dr. Julia Velasquez BASOM % 0.0 % Critically low 0.2-2.0 [facility] Comment on above: Performed By: #### L IVER, BMP, LIPA, EDSON #### [facility] [address] [place] [address] Dr. Julia Velasquez BLAST # Normal [facility] Comment on above: Performed By: #### L IVER, BMP, LIPA, EDSON #### [facility] [address] [place] [address] Dr. Julia Velasquez BLAST % Normal [facility] Comment on above: Performed By: #### L IVER, BMP, LIPA, EDSON #### [facility] [address] [place] [address] Dr. Julia Velasquez CORRECTED WBC Normal 4.0-11.0 [facility] Comment on above: Performed By: #### L IVER, BMP, LIPA, EDSON #### [facility] [address] [place] [address] Dr. Julia Velasquez EOS # 0.00 103/ul Normal 0.00-0.70 [facility] Comment on above: Performed By: #### L IVER, BMP, LIPA, EDSON #### [facility] [address] [place] [address] Dr. Julia Velasquez EOS% 0.0 % Critically low 0.9-7.0 [facility] Comment on above: Performed By: #### L IVER, BMP, LIPA, EDSON #### [facility] [address] [place] [address] Dr. Julia Velasquez HCT 28.9 % Critically low 36.0-48.0 [facility] Comment on above: Performed By: #### L IVER, BMP, LIPA, EDSON #### [facility] [address] [place] [address] Dr. Julia Velasquez HGB 9.5 g/dl Critically low 12.0-16.0 [facility] Comment on above: Performed By: #### L IVER, BMP, LIPA, EDSON #### [facility] [address] [address] [address] Julia Velasquez LYMPHM # 1.21 103/ul Normal 1.20-3.[address] [facility] Comment on above: Performed By: #### L IVER, BMP, LIPA, EDSON #### [facility] [address] [place] [address] Dr. Julia Velasquez LYMPHM% 4.0 % Critically low 20.5-60.0 [facility] Comment on above: Performed By: #### L IVER, BMP, LIPA, EDSON #### [facility] [address] [place] [address] Dr. Julia Velasquez MCH 29.2 pg Normal 26.7-34.0 [facility] Comment on above: Performed By: #### L IVER, BMP, LIPA, EDSON #### [facility] [address] [place] [address] Dr. Julia Velasquez MCHC 32.9 g/dl Normal 29.9-35.2 [facility] Comment on above: Performed By: #### L IVER, BMP, LIPA, EDSON #### [facility] [address] [place] [address] Dr. Julia Velasquez MCV 88.9 fL Normal 81.0-99.[address] [facility] Comment on above: Performed By: #### L IVER, BMP, LIPA, EDSON #### [facility] [address] [place] [address] Dr. Julia Velasquez METAMYELOCYTE # Normal [facility] Comment on above: Performed By: #### L IVER, BMP, LIPA, EDSON #### [facility] [address] [place] [address] Dr. Julia Velasquez METAMYELOCYTE % Normal [facility] Comment on above: Performed By: #### L IVER, BMP, LIPA, EDSON #### [facility] [address] [place] [address] Dr. Julia Velasquez MONOM# 1.21 103/ul Critically high 0.30-0.80 [facility] Comment on above: Performed By: #### L IVER, BMP, LIPA, EDSON #### [facility] [address] [place] [address] Dr. Julia Velasquez MONOM% 4.0 % Normal 1.7-12.0 [facility] Comment on above: Performed By: #### L IVER, BMP, LIPA, EDSON #### [facility] [address] [place] [address] Dr. Julia Velasquez MPV 11.2 fL Normal 9.5-13.5 [facility] Comment on above: Performed By: #### L IVER, BMP, LIPA, EDSON #### [facility] [address] [place] [address] Dr. Julia Velasquez MYELOCYTE # Normal [facility] Comment on above: Performed By: #### L IVER, BMP, LIPA, EDSON #### [facility] [address] [place] [address] Dr. Julia Velasquez MYELOCYTE % Normal [facility] Comment on above: Performed By: #### L IVER, BMP, LIPA, EDSON #### [facility] [address] [place] [address] Dr. Julia Velasquez NRBC 2 Normal [facility] Comment on above: Performed By: #### L IVER, BMP, LIPA, EDSON #### [facility] [address] [place] [address] Dr. Julia Velasquez PLT 273 103/ul Normal 150-450 [facility] Comment on above: Performed By: #### L IVER, BMP, LIPA, EDSON #### [facility] [address] [place] [address] Dr. Julia Velasquez RBC 3.25 106/ul Critically low 4.20-5.40 [facility] Comment on above: Performed By: #### L IVER, BMP, LIPA, EDSON #### [facility] [address] [place] [address] Dr. Julia Velasquez RDW 16.0 % Critically high 11.0-15.0 [facility] Comment on above: Performed By: #### L IVER, BMP, LIPA, EDSON #### [facility] [address] [place] [address] Dr. Julia Velasquez SEG # 26.97 103/ul Critically high 1.40-6.50 [facility] Comment on above: Performed By: #### L IVER, BMP, LIPA, EDSON #### [facility] [address] [place] [address] Dr. Julia Velasquez SEG % 89.0 % Critically high 43.0-75.0 [facility] Comment on above: Performed By: #### L IVER, BMP, LIPA, EDSON #### [facility] [address] [place] [address] Dr. Julia Velasquez WBC 30.3 103/ul Critically high 4.0-11.0 [facility] Comment on above: Performed By: #### L IVER, BMP, LIPA, EDSON #### [facility] [address] [place] [address] Dr. Julia Velasquez GI PANEL (PCR)on 12-12-2022 Adenovirus F 40/41 Not detected Normal NOT DETECTED [facility] Comment on above: Performed By: #### L IVER, BMP, LIPA, EDSON #### [facility] [address] [place] [address] Dr. Julia Velasquez Astrovirus Not detected Normal NOT DETECTED [facility] Comment on above: Performed By: #### L IVER, BMP, LIPA, EDSON #### [facility] [address] [place] [address] Dr. Julia Velasquez C. Diff toxin A/B Not detected Normal NOT DETECTED [facility] Comment on above: Performed By: #### L IVER, BMP, LIPA, EDSON #### [facility] [address] [place] [address] Dr. Julia Velasquez Campylobacter Not detected Normal NOT DETECTED [facility] Comment on above: Performed By: #### L IVER, BMP, LIPA, EDSON #### [facility] [address] [place] [address] Dr. Julia Velasquez Cryptosporidium Not detected Normal NOT DETECTED [facility] Comment on above: Performed By: #### L IVER, BMP, LIPA, EDSON #### [facility] [address] [address] [address] Julia Velasquez Cyclos. Cayetanensis Not detected Normal NOT DETECTED [facility] Comment on above: Performed By: #### L IVER, BMP, LIPA, EDSON #### [facility] [address] [place] [address] Dr. Julia Velasquez E. Coli O157 Not Applicable Normal Not Applicable [facility] Comment on above: Performed By: #### L IVER, BMP, LIPA, EDSON #### [facility] [address] [place] [address] Dr. Julia Velasquez E. histolytica Not detected Normal NOT DETECTED [facility] Comment on above: Performed By: #### L IVER, BMP, LIPA, EDSON #### [facility] [address] [place] [address] Dr. Julia Velasquez EAEC Not detected Normal NOT DETECTED [facility] Comment on above: Performed By: #### L IVER, BMP, LIPA, EDSON #### [facility] [address] [place] [address] Dr. Julia Velasquez EIEC Not detected Normal NOT DETECTED [facility] Comment on above: Performed By: #### L IVER, BMP, LIPA, EDSON #### [facility] [address] [place] [address] Dr. Julia Velasquez EPEC Not detected Normal NOT DETECTED [facility] Comment on above: Performed By: #### L IVER, BMP, LIPA, EDSON #### [facility] [address] [place] [address] Dr. Julia Velasquez ETEC Not detected Normal NOT DETECTED [facility] Comment on above: Performed By: #### L IVER, BMP, LIPA, EDSON #### [facility] [address] [address] [address] Julia Rowley Not detected Normal NOT DETECTED [facility] Comment on above: Performed By: #### L IVERNANCY, LIPA, EDSON #### [facility] [address] [place] [address] Dr. Julia DE PAZ CONTROLS PASSED Normal [facility] Comment on above: Performed By: #### L IVER, BMP, LIPA, EDSON #### [facility] [address] [address] [address] Julia NIELSON HEADER GI PANEL BACTERIA Normal [facility] Comment on above: Performed By: #### L IVNANCY VARGAS, LIPA, EDSON #### [facility] [address] [place] [address] Dr. Julia DEMPSEY ECOLI GI PANEL DIARRHEAGENIC E.COLI / SHIGELLA Normal [facility] Comment on above: Performed By: #### L IVER, BMP, LIPA, EDSON #### [facility] [address] [place] [address] Dr. Julia DEMPSEY INFO SEE BELOW Normal [facility] Comment on above: Result Comment: EAEC - Enteroaggregative E. Coli EPEC- Enteropathogenic E. Coli ETEC- Enterotoxigenic E. Coli lt/st STEC- Shigella-like toxin-producing E. Coli stx1/stx2 EIEC- Shigella/Enteroinvasive E. Coli Performed By: #### L IVER, BMP, LIPA, EDSON #### [facility] [address] [place] [address] Dr. Julia DEMPSEY PARASITES GI PANEL PARASITES Normal [facility] Comment on above: Performed By: #### L IVER, BMP, LIPA, EDSON #### [facility] [address] [place] [address] Dr. Julia DEMPSEY VIRUS GI PANEL VIRUSES Normal [facility] Comment on above: Performed By: #### L IVER, BMP, LIPA, EDSON #### [facility] [address] [place] [address] Dr. Julia Velasquez Norovirus GI/GII Not detected Normal NOT DETECTED [facility] Comment on above: Performed By: #### L IVER, BMP, LIPA, EDSON #### [facility] [address] [place] [address] Dr. Julia Hope. Shigelloides Not detected Normal NOT DETECTED [facility] Comment on above: Performed By: #### L IVER, BMP, LIPA, EDSON #### [facility] [address] [place] [address] Dr. Julia Velasquez Rotavirus A Not detected Normal NOT DETECTED [facility] Comment on above: Performed By: #### L IVER, BMP, LIPA, EDSON #### [facility] [address] [place] [address] Dr. Julia Velasquez Salmonella Not detected Normal NOT DETECTED [facility] Comment on above: Performed By: #### L IVER, BMP, LIPA, EDSON #### [facility] [address] [place] [address] Dr. Julia Velasquez Sapovirus Not detected Normal NOT DETECTED [facility] Comment on above: Performed By: #### L IVER, BMP, LIPA, EDSON #### [facility] [address] [place] [address] Dr. Julia Velasquez STEC Not detected Normal NOT DETECTED [facility] Comment on above: Performed By: #### L IVER, BMP, LIPA, EDSON #### [facility] [address] [place] [address] Dr. Julia Velasquez Vibrio Not detected Normal NOT DETECTED [facility] Comment on above: Performed By: #### L IVER, BMP, LIPA, EDSON #### [facility] [address] [place] [address] Dr. Julia Velasquez Vibrio Cholera Not detected Normal NOT DETECTED [facility] Comment on above: Performed By: #### L IVER, BMP, LIPA, EDSON #### [facility] [address] [place] [address] Dr. Julia Velasquez Y. Enterocolitica Not detected Normal NOT DETECTED [facility] Comment on above: Performed By: #### L IVER, BMP, LIPA, EDSON #### [facility] [address] [place] [address] Dr. Julia Velasquez PROF 14(COMP METB)on 023 Albumin [Mass/Vol] 1.4 g/dL Critically low 3.4-5.[address] [facility] Comment on above: Performed By: #### L IVER, BMP, LIPA, EDSON #### [facility] [address] [place] [address] Dr. Julia Velasquez Albumin/Globulin [Mass ratio] 0.3 {ratio} Normal [facility] Comment on above: Performed By: #### L IVER, BMP, LIPA, EDSON #### [facility] [address] [place] [address] Dr. Julia Velasquez ALP [Catalytic activity/Vol] 89 U/L Normal 46-116 [facility] Comment on above: Performed By: #### L IVER, BMP, LIPA, EDSON #### [facility] [address] [place] [address] Dr. Julia Velasquez ALT [Catalytic activity/Vol] 27 U/L Normal 14-59 [facility] Comment on above: Performed By: #### L IVER, BMP, LIPA, EDSON #### [facility] [address] [place] [address] Dr. Julia Velasquez Anion gap [Moles/Vol] 14.7 mmol/L Normal [facility] Comment on above: Performed By: #### L IVER, BMP, LIPA, EDSON #### [facility] [address] [place] [address] Dr. Julia Velasquez AST [Catalytic activity/Vol] 58 U/L Critically high 15-37 [facility] Comment on above: Performed By: #### L IVER, BMP, LIPA, EDSON #### [facility] [address] [place] [address] Dr. Julia Velasquez Bilirubin [Mass/Vol] 2.0 mg/dL Critically high 0.2-1.0 [facility] Comment on above: Performed By: #### L IVER, BMP, LIPA, EDSON #### [facility] [address] [place] [address] Dr. Julia Velasquez Calcium [Mass/Vol] 8.8 mg/dL Normal 8.5-10.1 [facility] Comment on above: Performed By: #### L IVER, BMP, LIPA, EDSON #### [facility] [address] [place] [address] Dr. Julia Velasquez Chloride [Moles/Vol] 118 mmol/L Critically high 98-107 [facility] Comment on above: Performed By: #### L IVER, BMP, LIPA, EDSON #### [facility] [address] [place] [address] Dr. Julia Velasquez CO2 [Moles/Vol] 20.7 mmol/L Critically low 21.0-32.0 [facility] Comment on above: Performed By: #### L IVER, BMP, LIPA, EDSON #### [facility] [address] [place] [address] Dr. Julia Velasquez Creatinine [Mass/Vol] 1.63 mg/dL Critically high 0.55-1.02 [facility] Comment on above: Performed By: #### L IVER, BMP, LIPA, EDSON #### [facility] [address] [place] [address] Dr. Julia Velasquez EGFR-AF BERMUDIAN 37 mL/min/1.73m2 Critically low >=60 [facility] Comment on above: Performed By: #### L IVER, BMP, LIPA, EDSON #### [facility] [address] [place] [address] Dr. Julia Velasquez EGFR-NON AF BERMUDIAN 30 mL/min/1.73m2 Critically low >=60 [facility] Comment on above: Performed By: #### L IVER, BMP, LIPA, EDSON #### [facility] [address] [place] [address] Dr. Julia Velasquez Globulin (S) [Mass/Vol] 4.7 g/dL Normal [facility] Comment on above: Performed By: #### L IVER, BMP, LIPA, EDSON #### [facility] [address] [place] [address] Dr. Julia Velasquez Glucose [Mass/Vol] 130 mg/dL Critically high 74-106 [facility] Comment on above: Performed By: #### L IVER, BMP, LIPA, EDSON #### [facility] [address] [place] [address] Dr. Julia Velasquez Potassium [Moles/Vol] 4.4 mmol/L Normal 3.5-5.1 [facility] Comment on above: Performed By: #### L IVER, BMP, LIPA, EDSON #### [facility] [address] [place] [address] Dr. Julia Velasquez Protein [Mass/Vol] 6.1 g/dL Critically low 6.4-8.2 [facility] Comment on above: Performed By: #### L IVER, BMP, LIPA, EDSON #### [facility] [address] [place] [address] Dr. Julia Velasquez Sodium [Moles/Vol] 149 mmol/L Critically high 136-145 [facility] Comment on above: Performed By: #### L IVER, BMP, LIPA, EDSON #### [facility] [address] [place] [address] Dr. Julia Velasquez Urea nitrogen [Mass/Vol] 56.0 mg/dL Critically high 7.0-18.0 [facility] Comment on above: Performed By: #### L IVER, BMP, LIPA, EDSON #### [facility] [address] [place] [address] Dr. Julia Velasquez Urea nitrogen/Creatinine [Mass ratio] 34.4 mg/mg Normal [facility] Comment on above: Performed By: #### L IVER, BMP, LIPA, EDSON #### [facility] [address] [place] [address] Dr. Julia Velasquez RESPIRATORY PANEL PLUSon Adenovirus Not detected Normal NOT DETECTED [facility] Comment on above: Performed By: #### L IVER, BMP, LIPA, EDSON #### [facility] [address] [place] [address] Dr. Yilan Velasquez B. Parapertusis Not detected Normal NOT DETECTED [facility] Comment on above: Performed By: #### L IVER, BMP, LIPA, EDSON #### [facility] [address] [place] [address] Dr. Julia Crystal. Pertussis Not detected Normal NOT DETECTED [facility] Comment on above: Performed By: #### L IVER, BMP, LIPA, EDSON #### [facility] [address] [place] [address] Dr. Julia Velasquez Chlamydia Pneumoniae Not detected Normal NOT DETECTED [facility] Comment on above: Performed By: #### L IVER, BMP, LIPA, EDSON #### [facility] [address] [place] [address] Dr. Julia Velasquez Coronavirus 229E Not detected Normal NOT DETECTED [facility] Comment on above: Performed By: #### L IVER, BMP, LIPA, EDSON #### [facility] [address] [place] [address] Dr. Julia Velasquez Coronavirus HKU1 Not detected Normal NOT DETECTED [facility] Comment on above: Performed By: #### L IVER, BMP, LIPA, EDSON #### [facility] [address] [place] [address] Dr. Julia Velasquez Coronavirus NL63 Not detected Normal NOT DETECTED [facility] Comment on above: Performed By: #### L IVER, BMP, LIPA, EDSON #### [facility] [address] [place] [address] Dr. Julia Velasquez Coronavirus OC43 Not detected Normal NOT DETECTED [facility] Comment on above: Performed By: #### L IVER, BMP, LIPA, EDSON #### [facility] [address] [place] [address] Dr. Julia Velasquez Influenza A H1 Not detected Normal NOT DETECTED [facility] Comment on above: Performed By: #### L IVER, BMP, LIPA, EDSON #### [facility] [address] [place] [address] Dr. Julia Velasquez Influenza A H1 2009 Not detected Normal NOT DETECTED [facility] Comment on above: Performed By: #### L IVER, BMP, LIPA, EDSON #### [facility] [address] [address] [address] Julia Velasquez Influenza A H3 Not detected Normal NOT DETECTED [facility] Comment on above: Performed By: #### L IVER, BMP, LIPA, EDSON #### [facility] [address] [address] [address] Julia Velasquez Influenza B Not detected Normal NOT DETECTED [facility] Comment on above: Performed By: #### L IVER, BMP, LIPA, EDSON #### [facility] [address] [address] [address] Julia Velasquez Metapneumovirus Not detected Normal NOT DETECTED [facility] Comment on above: Performed By: #### L IVER, BMP, LIPA, EDSON #### [facility] [address] [address] [address] Julia Velasquez Mycoplas. Pneumoniae Not detected Normal NOT DETECTED [facility] Comment on above: Performed By: #### L IVER, BMP, LIPA, EDSON #### [facility] [address] [address] [address] Julia Velasquez Parainfluenza 1 Not detected Normal NOT DETECTED [facility] Comment on above: Performed By: #### L IVER, BMP, LIPA, EDSON #### [facility] [address] [address] [address] Julia Velasquez Parainfluenza 2 Not detected Normal NOT DETECTED [facility] Comment on above: Performed By: #### L IVER, BMP, LIPA, EDSON #### [facility] [address] [address] [address] Julia Velasquez Parainfluenza 3 Not detected Normal NOT DETECTED [facility] Comment on above: Performed By: #### L IVER, BMP, LIPA, EDSON #### [facility] [address] [address] [address] Julia Velasquez Parainfluenza 4 Not detected Normal NOT DETECTED [facility] Comment on above: Performed By: #### L IVER, BMP, LIPA, EDSON #### [facility] [address] [place] [address] Dr. Julia Velasquez Rhino/Enterovirus Not detected Normal NOT DETECTED [facility] Comment on above: Performed By: #### L IVER, BMP, LIPA, EDSON #### [facility] [address] [place] [address] Dr. Julia Velasquez RP2 Header 1 RESPIRATORY PANEL: VIRUSES Normal [facility] Comment on above: Performed By: #### L IVER, BMP, LIPA, EDSON #### [facility] [address] [place] [address] Dr. Julia Velasquez RP2 Header 2 RESPIRATORY PANEL: BACTERIA Normal [facility] Comment on above: Performed By: #### L IVER, BMP, LIPA, EDSON #### [facility] [address] [place] [address] Dr. Julia Velasquez RSV Not detected Normal NOT DETECTED [facility] Comment on above: Performed By: #### L IVER, BMP, LIPA, EDSON #### [facility] [address] [place] [address] Dr. Julia Velasquez SARS-CoV-2 (COVID-19) RNA MARIO+probe Ql (Unsp spec) Not detected Normal NOT DETECTED [facility] Comment on above: Performed By: #### L IVER, BMP, LIPA, EDSON #### [facility] [address] [place] [address] Dr. Julia Velasquez CBC AUTO DIFFon 12-11-2022 BASO # 0.1 103/ul Normal 0.0-0.1 [facility] Comment on above: Performed By: #### C MP #### [facility] [address] [place] [address] Dr. Julia Velasquez Basophils/100 WBC (Bld) 0.4 % Normal 0.2-2.0 [facility] Comment on above: Performed By: #### C MP #### [facility] [address] [place] [address] Dr. Julia Velasquez EO # 0.0 103/ul Normal 0.0-0.7 [facility] Comment on above: Performed By: #### C MP #### [facility] [address] [address] [address] Julia Velasquez Eosinophils/100 WBC (Bld) 0.0 % Critically low 0.9-7.0 [facility] Comment on above: Performed By: #### C MP #### [facility] [address] [place] [address] Dr. Julia Velasquez Erythrocyte distribution width (RBC) [Ratio] 15.9 % Critically high 11.0-15.0 [facility] Comment on above: Performed By: #### C MP #### [facility] [address] [place] [address] Dr. Julia Velasquez Hematocrit (Bld) [Volume fraction] 34.4 % Critically low 36.0-48.0 [facility] Comment on above: Performed By: #### C MP #### [facility] [address] [place] [address] Dr. Julia Velasquez Hemoglobin (Bld) [Mass/Vol] 11.1 g/dL Critically low 12.0-16.0 [facility] Comment on above: Performed By: #### C MP #### [facility] [address] [place] [address] Dr. Julia Velasquez IG # 0.75 10e3/ul Critically high 0.00-0.03 [facility] Comment on above: Performed By: #### C MP #### [facility] [address] [place] [address] Dr. Julia Velasquez IG % 2.7 % Critically high 0.0-0.5 [facility] Comment on above: Performed By: #### C MP #### [facility] [address] [place] [address] Dr. Julia Velasquez LYMPH # 0.7 103/ul Critically low 1.2-3.8 [facility] Comment on above: Performed By: #### C MP #### [facility] [address] [place] [address] Dr. Julia Velasquez Lymphocytes/100 WBC (Bld) 2.4 % Critically low 20.5-60.0 [facility] Comment on above: Performed By: #### C MP #### [facility] [address] [place] [address] Dr. Julia Velasquez MANUAL DIFF REQ NO Normal [facility] Comment on above: Performed By: #### C MP #### [facility] [address] [place] [address] Dr. Julia Velasquez MCH (RBC) [Entitic mass] 29.2 pg Normal 26.7-34.0 [facility] Comment on above: Performed By: #### C MP #### [facility] [address] [place] [address] Dr. Julia Velasquez MCHC (RBC) [Mass/Vol] 32.3 g/dL Normal 29.9-35.2 [facility] Comment on above: Performed By: #### C MP #### [facility] [address] [place] [address] Dr. Julia Velasquez MCV (RBC) [Entitic vol] 90.5 fL Normal 81.0-99.0 [facility] Comment on above: Performed By: #### C MP #### [facility] [address] [place] [address] Dr. Julia Velasquez MONO # 0.7 103/ul Normal 0.3-0.8 [facility] Comment on above: Performed By: #### C MP #### [facility] [address] [place] [address] Dr. Julia Velasquez Monocytes/100 WBC (Bld) 2.6 % Normal 1.7-12.0 [facility] Comment on above: Performed By: #### C MP #### [facility] [address] [place] [address] Dr. Julai Velasquez NEUT # 25.6 103/ul Critically high 1.4-6.5 [facility] Comment on above: Performed By: #### C MP #### [facility] [address] [place] [address] Dr. Julia Velasquez Neutrophils/100 WBC (Bld) 91.9 % Critically high 43.0-75.0 [facility] Comment on above: Performed By: #### C MP #### [facility] [address] [address] [address] Julia Velasquez Platelet mean volume (Bld) [Entitic vol] 11.1 fL Normal 9.5-13.5 [facility] Comment on above: Performed By: #### C MP #### [facility] [address] [address] [address] Julia Velasquez PLT 240 103/ul Normal 150-[address] [facility] Comment on above: Performed By: #### C MP #### [facility] [address] [address] [address] Julia Velasquez RBC 3.80 106/ul Critically low 4.20-5.40 [facility] Comment on above: Performed By: #### C MP #### [facility] [address] [place] [address] Dr. Julia Velasquez WBC 27.9 103/ul Critically high 4.0-11.0 [facility] Comment on above: Performed By: #### C MP #### [facility] [address] [place] [address] Dr. Julia Velasquez CBC W MANUAL DIFFon 12-12-19 23 ATYPICAL LYMPH # Normal [facility] Comment on above: Performed By: #### L IVER, BMP, LIPA, EDSON #### [facility] [address] [place] [address] Dr. Julia Velasquez ATYPICAL LYMPH % Normal [facility] Comment on above: Performed By: #### L IVER, BMP, LIPA, EDSON #### [facility] [address] [place] [address] Dr. Julia Velasquez BAND # 3.0 103/ul Critically high 0.0-0.3 [facility] Comment on above: Performed By: #### L IVER, BMP, LIPA, EDSNO #### [facility] [address] [place] [address] Dr. Julia Velasquez BAND % 9 % Critically high 0-5 [facility] Comment on above: Performed By: #### L IVER, BMP, LIPA, EDSON #### [facility] [address] [address] [address] Julia Velasquez BASOM # 0.00 103/ul Normal 0.00-0.10 [facility] Comment on above: Performed By: #### L IVER, BMP, LIPA, EDSON #### [facility] [address] [address] [address] Julia Velasquez BASOM % 0.0 % Critically low 0.2-2.0 [facility] Comment on above: Performed By: #### L IVER, BMP, LIPA, EDSON #### [facility] [address] [address] [address] Julia Velasquez BLAST # Normal [facility] Comment on above: Performed By: #### L IVER, BMP, LIPA, EDSON #### [facility] [address] [place] [address] Dr. Julia Velasquez BLAST % Normal [facility] Comment on above: Performed By: #### L IVER, BMP, LIPA, EDSON #### [facility] [address] [place] [address] Dr. Julia Velasquez CORRECTED WBC Normal 4.0-11.0 [facility] Comment on above: Performed By: #### L IVER, BMP, LIPA, EDSON #### [facility] [address] [place] [address] Dr. Julia Velasquez EOS # 0.00 103/ul Normal 0.00-0.70 [facility] Comment on above: Performed By: #### L IVER, BMP, LIPA, EDSON #### [facility] [address] [place] [address] Dr. Julia Velasquez EOS% 0.0 % Critically low 0.9-7.0 [facility] Comment on above: Performed By: #### L IVER, BMP, LIPA, EDSON #### [facility] [address] [place] [address] Dr. Julia Velasquez HCT 30.7 % Critically low 36.0-48.0 [facility] Comment on above: Performed By: #### L IVER, BMP, LIPA, EDSON #### [facility] [address] [place] [address] Dr. Julia Velasquez HGB 10.1 g/dl Critically low 12.0-16.0 [facility] Comment on above: Performed By: #### L IVER, BMP, LIPA, EDSON #### [facility] [address] [place] [address] Dr. Julia Velasquez LYMPHM # 0.67 103/ul Critically low 1.20-3.80 [facility] Comment on above: Performed By: #### L IVER, BMP, LIPA, EDSON #### [facility] [address] [place] [address] Dr. Julia Velasquez LYMPHM% 2.0 % Critically low 20.5-60.0 [facility] Comment on above: Performed By: #### L IVER, BMP, LIPA, EDSON #### [facility] [address] [place] [address] Dr. Julia Velasquez MCH 29.5 pg Normal 26.7-34.0 [facility] Comment on above: Performed By: #### L IVER, BMP, LIPA, EDSON #### [facility] [address] [place] [address] Dr. Julia Velasquez MCHC 32.9 g/dl Normal 29.9-35.2 [facility] Comment on above: Performed By: #### L IVER, BMP, LIPA, EDSON #### [facility] [address] [place] [address] Dr. Julia Velasquez MCV 89.8 fL Normal 81.0-99.0 [facility] Comment on above: Performed By: #### L IVER, BMP, LIPA, EDSON #### [facility] [address] [place] [address] Dr. Julia Velasquez METAMYELOCYTE # Normal [facility] Comment on above: Performed By: #### L IVER, BMP, LIPA, EDSON #### [facility] [address] [place] [address] Dr. Julia Velasquez METAMYELOCYTE % Normal [facility] Comment on above: Performed By: #### L IVER, BMP, LIPA, EDSON #### [facility] [address] [place] [address] Dr. Julia Velasquez MONOM# 0.33 103/ul Normal 0.30-0.80 [facility] Comment on above: Performed By: #### L IVER, BMP, LIPA, EDSON #### [facility] [address] [place] [address] Dr. Julia Velasquez MONOM% 1.0 % Critically low 1.7-12.0 [facility] Comment on above: Performed By: #### L IVER, BMP, LIPA, EDSON #### [facility] [address] [place] [address] Dr. Julia Velasquez MPV 10.1 fL Normal 9.5-13.5 [facility] Comment on above: Performed By: #### L IVER, BMP, LIPA, EDSON #### [facility] [address] [place] [address] Dr. Julia Velasquez MYELOCYTE # Normal [facility] Comment on above: Performed By: #### L IVER, BMP, LIPA, EDSON #### [facility] [address] [place] [address] Dr. Julia Velasquez MYELOCYTE % Normal [facility] Comment on above: Performed By: #### L IVER, BMP, LIPA, EDSON #### [facility] [address] [place] [address] Dr. Julia Velasquez NRBC Normal [facility] Comment on above: Performed By: #### L IVER, BMP, LIPA, EDSON #### [facility] [address] [place] [address] Dr. Julia Velasquez PLT 256 103/ul Normal 150-[address] [facility] Comment on above: Performed By: #### L IVER, BMP, LIPA, EDSON #### [facility] [address] [place] [address] Dr. Julia Velasquez RBC 3.42 106/ul Critically low 4.20-5.40 [facility] Comment on above: Performed By: #### L IVER, BMP, LIPA, EDSON #### [facility] [address] [place] [address] Dr. Julia Velasquez RDW 15.9 % Critically high 11.0-15.0 [facility] Comment on above: Performed By: #### L IVER, BMP, LIPA, EDSON #### [facility] [address] [place] [address] Dr. Julia Velasquez SEG # 29.39 103/ul Critically high 1.40-6.50 [facility] Comment on above: Performed By: #### L IVER, BMP, LIPA, EDSON #### [facility] [address] [place] [address] Dr. Julia Velasquez SEG % 88.0 % Critically high 43.0-75.0 [facility] Comment on above: Performed By: #### L IVER, BMP, LIPA, EDSON #### [facility] [address] [place] [address] Dr. Julia Velasquez WBC 33.4 103/ul Critically high 4.0-11.0 [facility] Comment on above: Performed By: #### L IVER, BMP, LIPA, EDSON #### [facility] [address] [place] [address] Dr. Julia Velasquez CULTURE BLOODon 12-11-2022 Microscopic examination of blood, culture Culture Observations: NO GROWTH AT 5 DAYS. [facility] Comment on above: Performed By: #### C MP #### [facility] [address] [place] [address] Dr. Julia Velasquez Microscopic examination of blood, culture Culture Observations: NO GROWTH AT 5 DAYS. [facility] Comment on above: Performed By: #### C MP #### [facility] [address] [place] [address] Dr. Julia Velasquez PROF 14(COMP METB)on 023 Albumin [Mass/Vol] 1.9 g/dL Critically low 3.4-5.0 [facility] Comment on above: Performed By: #### C MP #### [facility] [address] [place] [address] Dr. Julia Velasquez Albumin/Globulin [Mass ratio] 0.5 {ratio} Normal [facility] Comment on above: Performed By: #### C MP #### [facility] [address] [address] [address] Julia Velasquez ALP [Catalytic activity/Vol] 94 U/L Normal 46-116 [facility] Comment on above: Performed By: #### C MP #### [facility] [address] [place] [address] Dr. Julia Velasquez ALT [Catalytic activity/Vol] 34 U/L Normal 14-59 [facility] Comment on above: Performed By: #### C MP #### [facility] [address] [place] [address] Dr. Julia Velasquez Anion gap [Moles/Vol] 19.9 mmol/L Normal [facility] Comment on above: Performed By: #### C MP #### [facility] [address] [place] [address] Dr. Julia Velasquez AST [Catalytic activity/Vol] 82 U/L Critically high 15-37 [facility] Comment on above: Performed By: #### C MP #### [facility] [address] [place] [address] Dr. Julia Velasquez Bilirubin [Mass/Vol] 3.0 mg/dL Critically high 0.2-1.0 [facility] Comment on above: Performed By: #### C MP #### [facility] [address] [place] [address] Dr. Julia Velasquez Calcium [Mass/Vol] 8.2 mg/dL Critically low 8.5-10.[address] [facility] Comment on above: Performed By: #### C MP #### [facility] [address] [place] [address] Dr. Julia Velasquez Chloride [Moles/Vol] 112 mmol/L Critically high 98-107 [facility] Comment on above: Performed By: #### C MP #### [facility] [address] [place] [address] Dr. Julia Velasquez CO2 [Moles/Vol] 18.7 mmol/L Critically low 21.0-32.0 [facility] Comment on above: Performed By: #### C MP #### [facility] [address] [address] [address] Julia Velasquez Creatinine [Mass/Vol] 1.75 mg/dL Critically high 0.55-1.02 [facility] Comment on above: Performed By: #### C MP #### [facility] [address] [address] [address] Julia Velasquez EGFR-AF BERMUDIAN 34 mL/min/1.73m2 Critically low >=60 [facility] Comment on above: Performed By: #### C MP #### [facility] [address] [address] [address] Julia Velasquez EGFR-NON AF BERMUDIAN 28 mL/min/1.73m2 Critically low >=60 [facility] Comment on above: Performed By: #### C MP #### [facility] [address] [address] [address] Julia Velasquez Globulin (S) [Mass/Vol] 3.6 g/dL Normal [facility] Comment on above: Performed By: #### C MP #### [facility] [address] [place] [address] Dr. Julia Velasquez Glucose [Mass/Vol] 95 mg/dL Normal 74-106 [facility] Comment on above: Performed By: #### C MP #### [facility] [address] [address] [address] Julia Velasquez Potassium [Moles/Vol] 4.6 mmol/L Normal 3.5-5.1 [facility] Comment on above: Performed By: #### C MP #### [facility] [address] [address] [address] Julia Velasquez Protein [Mass/Vol] 5.5 g/dL Critically low 6.4-8.2 [facility] Comment on above: Performed By: #### C MP #### [facility] [address] [place] [address] Dr. Julia Velasquez Sodium [Moles/Vol] 146 mmol/L Critically high 136-145 [facility] Comment on above: Performed By: #### C MP #### [facility] [address] [address] [address] Julia Velasquez Urea nitrogen [Mass/Vol] 58.0 mg/dL Critically high 7.0-18.0 [facility] Comment on above: Performed By: #### C MP #### [facility] [address] [address] [address] Julia Velasquez Urea nitrogen/Creatinine [Mass ratio] 33.1 mg/mg Normal [facility] Comment on above: Performed By: #### C MP #### [facility] [address] [address] [address] Julia Velasquez XR CHEST 2 Von [...] BUCKY CRAIG Date: 2022-12-11 11:[address] [facility] CBC W MANUAL DIFFon 12-11-19 ATYPICAL LYMPH # 0.18 103/ul Normal [facility] Comment on above: Performed By: #### C BCMAN #### [facility] [address] [address] [address] Julia Velasquez ATYPICAL LYMPH % 1 % Normal [facility] Comment on above: Performed By: #### C BCMAN #### [facility] [address] [place] [address] Dr. Julia Velasquez BAND # 0.0 103/ul Normal 0.0-0.[address] [facility] Comment on above: Performed By: #### C BRYNN #### [facility] [address] [place] [address] Dr. Julia Velasquez BAND % 0 % Normal 0-[address] [facility] Comment on above: Performed By: #### C BRYNN #### [facility] [address] [place] [address] Dr. Julia Velasquez BASOM # 0.00 103/ul Normal 0.00-0.10 [facility] Comment on above: Performed By: #### C BRYNN #### [facility] [address] [place] [address] Dr. Julia Velasquez BASOM % 0.0 % Critically low 0.2-2.0 [facility] Comment on above: Performed By: #### C BRYNN #### [facility] [address] [place] [address] Dr. Julia Velasquez BLAST # Normal [facility] Comment on above: Performed By: #### C BRYNN #### [facility] [address] [place] [address] Dr. Julia Velasquez BLAST % Normal [facility] Comment on above: Performed By: #### C BRYNN #### [facility] [address] [place] [address] Dr. Julia Velasquez CORRECTED WBC Normal 4.0-11.0 [facility] Comment on above: Performed By: #### C BRYNN #### [facility] [address] [place] [address] Dr. Julia Velasquez EOS # 0.00 103/ul Normal 0.00-0.70 [facility] Comment on above: Performed By: #### C BRYNN #### [facility] [address] [place] [address] Dr. Julia Velasquez EOS% 0.0 % Critically low 0.9-7.0 [facility] Comment on above: Performed By: #### C BRYNN #### [facility] [address] [address] [address] Julia Velasquez HCT 31.8 % Critically low 36.0-48.0 [facility] Comment on above: Performed By: #### C BRYNN #### [facility] [address] [address] [address] Juila Velasquez HGB 10.4 g/dl Critically low 12.0-16.0 [facility] Comment on above: Performed By: #### C BRYNN #### [facility] [address] [address] [address] Julia Velasquez LYMPHM # 0.35 103/ul Critically low 1.20-3.80 [facility] Comment on above: Performed By: #### C BRYNN #### [facility] [address] [place] [address] Dr. Julia Velasquez LYMPHM% 2.0 % Critically low 20.5-60.0 [facility] Comment on above: Performed By: #### C BRYNN #### [facility] [address] [address] [address] Julia Velasquez MCH 29.3 pg Normal 26.7-34.0 [facility] Comment on above: Performed By: #### C BRYNN #### [facility] [address] [address] [address] Julia Velasquez MCHC 32.7 g/dl Normal 29.9-35.[address] [facility] Comment on above: Performed By: #### C BRYNN #### [facility] [address] [address] [address] Julia Velasquez MCV 89.6 fL Normal 81.0-99.[address] [facility] Comment on above: Performed By: #### C BRYNN #### [facility] [address] [address] [address] Julia Velasquez METAMYELOCYTE # Normal [facility] Comment on above: Performed By: #### C BRYNN #### [facility] [address] [place] [address] Dr. Julia Velasquez METAMYELOCYTE % Normal [facility] Comment on above: Performed By: #### C BCMAN #### [facility] [address] [address] [address] Julia Velasquez MONOM# 0.88 103/ul Critically high 0.30-0.80 [facility] Comment on above: Performed By: #### C BCMAN #### [facility] [address] [address] [address] Julia Velasquez MONOM% 5.0 % Normal 1.7-12.0 [facility] Comment on above: Performed By: #### C BCMAN #### [facility] [address] [address] [address] Julia Velasquez MPV 10.6 fL Normal 9.5-13.5 [facility] Comment on above: Performed By: #### C BCMAN #### [facility] [address] [place] [address] Dr. Julia Velasquez MYELOCYTE # Normal [facility] Comment on above: Performed By: #### C BCJACKLYN #### [facility] [address] [place] [address] Dr. Julia Velasquez MYELOCYTE % Normal [facility] Comment on above: Performed By: #### C BCMAN #### [facility] [address] [place] [address] Dr. Julia Velasquez NRBC Normal [facility] Comment on above: Performed By: #### C BCMAN #### [facility] [address] [address] [address] Julia Velasquez PLT 231 103/ul Normal 150-[address] [facility] Comment on above: Performed By: #### C BCMAN #### [facility] [address] [address] [address] Julia Velasquez RBC 3.55 106/ul Critically low 4.20-5.40 [facility] Comment on above: Performed By: #### C BCMAN #### [facility] [address] [address] [address] Julia Velasquez RDW 15.1 % Critically high 11.0-15.0 [facility] Comment on above: Performed By: #### C BCMAN #### [facility] [address] [address] [address] Julia Velasquez SEG # 16.19 103/ul Critically high 1.40-6.50 [facility] Comment on above: Performed By: #### C BCMAN #### [facility] [address] [address] [address] Julia Velasquez SEG % 92.0 % Critically high 43.0-75.0 [facility] Comment on above: Performed By: #### C BCMAN #### [facility] [address] [address] [address] Julia Velasquez WBC 17.6 103/ul Critically high 4.0-11.0 [facility] Comment on above: Performed By: #### C BCMAN #### [facility] [address] [address] [address] Julia Velasquez FERRITINon 12-10-2022 Ferritin [Mass/Vol] 450.0 ng/mL Critically high 8.0-252.0 [facility] Comment on above: Performed By: #### C MP #### [facility] [address] [address] [address] Julia Velasquez IRON AND TIBCon 12-10-2022 % SATURATION 5.6 % Normal [facility] Comment on above: Performed By: #### C MP #### [facility] [address] [address] [address] Julia Velasquez Iron [Mass/Vol] 11.0 ug/dL Critically low 50.0-170.0 [facility] Comment on above: Performed By: #### C MP #### [facility] [address] [address] [address] Julia Velasquez TIBC DIRECT 195.0 ug/dL Critically low 250.0-450.0 [facility] Comment on above: Performed By: #### C MP #### [facility] [address] [address] [address] Julia Velasquez PROF 14(COMP METB)on 04-05-2 023 Albumin [Mass/Vol] 2.0 g/dL Critically low 3.4-5.[address] [facility] Comment on above: Performed By: #### C MP #### [facility] [address] [place] [address] Dr. Julia Velasquez Albumin/Globulin [Mass ratio] 0.4 {ratio} Normal [facility] Comment on above: Performed By: #### C MP #### [facility] [address] [address] [address] Julia Velasquez ALP [Catalytic activity/Vol] 87 U/L Normal 46-116 [facility] Comment on above: Performed By: #### C MP #### [facility] [address] [place] [address] Dr. Julia Velasquez ALT [Catalytic activity/Vol] 32 U/L Normal 14-59 [facility] Comment on above: Performed By: #### C MP #### [facility] [address] [place] [address] Dr. Julia Velasquez Anion gap [Moles/Vol] 16.2 mmol/L Normal [facility] Comment on above: Performed By: #### C MP #### [facility] [address] [place] [address] Dr. Julia Velasquez AST [Catalytic activity/Vol] 50 U/L Critically high 15-37 [facility] Comment on above: Performed By: #### C MP #### [facility] [address] [place] [address] Dr. Julia Velasquez Bilirubin [Mass/Vol] 1.7 mg/dL Critically high 0.2-1.0 [facility] Comment on above: Performed By: #### C MP #### [facility] [address] [place] [address] Dr. Julia Velasquez Calcium [Mass/Vol] 8.6 mg/dL Normal 8.5-10.1 [facility] Comment on above: Performed By: #### C MP #### [facility] [address] [place] [address] Dr. Julia Velasquez Chloride [Moles/Vol] 107 mmol/L Normal 98-107 [facility] Comment on above: Performed By: #### C MP #### [facility] [address] [address] [address] Julia Velasquez CO2 [Moles/Vol] 22.1 mmol/L Normal 21.0-32.0 [facility] Comment on above: Performed By: #### C MP #### [facility] [address] [address] [address] Julia Velasquez Creatinine [Mass/Vol] 2.38 mg/dL Critically high 0.55-1.02 [facility] Comment on above: Performed By: #### C MP #### [facility] [address] [address] [address] Julia Velasquez EGFR-AF BERMUDIAN 24 mL/min/1.73m2 Critically low >=60 [facility] Comment on above: Performed By: #### C MP #### [facility] [address] [address] [address] Julia Velasquez EGFR-NON AF BERMUDIAN 20 mL/min/1.73m2 Critically low >=60 [facility] Comment on above: Performed By: #### C MP #### [facility] [address] [address] [address] Julia Velasquez Globulin (S) [Mass/Vol] 4.7 g/dL Normal [facility] Comment on above: Performed By: #### C MP #### [facility] [address] [address] [address] Julia Velasquez Glucose [Mass/Vol] 116 mg/dL Critically high 74-106 [facility] Comment on above: Performed By: #### C MP #### [facility] [address] [address] [address] Julia Velasquez Potassium [Moles/Vol] 3.3 mmol/L Critically low 3.5-5.1 [facility] Comment on above: Performed By: #### C MP #### [facility] [address] [address] [address] Julia Velasquez Protein [Mass/Vol] 6.7 g/dL Normal 6.4-8.2 [facility] Comment on above: Performed By: #### C MP #### [facility] [address] [address] [address] Julia Velasquez Sodium [Moles/Vol] 142 mmol/L Normal 136-145 [facility] Comment on above: Performed By: #### C MP #### [facility] [address] [address] [address] Julia Velasquez Urea nitrogen [Mass/Vol] 57.0 mg/dL Critically high 7.0-18.0 [facility] Comment on above: Performed By: #### C MP #### [facility] [address] [address] [address] Julia Velasquez Urea nitrogen/Creatinine [Mass ratio] 23.9 mg/mg Normal [facility] Comment on above: Performed By: #### C MP #### [facility] [address] [place] [address] Dr. Julia Velasquez AMYLASEon 12-09-2022 Amylase [Catalytic activity/Vol] 18 U/L Critically low 25-115 [facility] Comment on above: Performed By: #### L IVER, BMP, LIPA, EDSON #### [facility] [address] [place] [address] Dr. Julia Velasquez CBC W MANUAL DIFFon 12-10-19 23 ATYPICAL LYMPH # Normal [facility] Comment on above: Performed By: #### C MP #### [facility] [address] [place] [address] Dr. Julia Velasquez ATYPICAL LYMPH % Normal [facility] Comment on above: Performed By: #### C MP #### [facility] [address] [place] [address] Dr. Julia Velasquez BAND # 0.8 103/ul Critically high 0.0-0.3 [facility] Comment on above: Performed By: #### C MP #### [facility] [address] [place] [address] Dr. Julia Velasquez BAND % 4 % Normal 0-5 [facility] Comment on above: Performed By: #### C MP #### [facility] [address] [address] [address] Julia Velasquez BASOM # 0.00 103/ul Normal 0.00-0.[address] [facility] Comment on above: Performed By: #### C MP #### [facility] [address] [place] [address] Dr. Julia Velasquez BASOM % 0.0 % Critically low 0.2-2.0 [facility] Comment on above: Performed By: #### C MP #### [facility] [address] [address] [address] Julia Velasquez BLAST # Normal [facility] Comment on above: Performed By: #### C MP #### [facility] [address] [place] [address] Dr. Julia Velasquez BLAST % Normal [facility] Comment on above: Performed By: #### C MP #### [facility] [address] [place] [address] Dr. Julia Velasquez CORRECTED WBC Normal 4.0-11.0 [facility] Comment on above: Performed By: #### C MP #### [facility] [address] [place] [address] Dr. Julia Velasquez EOS # 0.00 103/ul Normal 0.00-0.70 [facility] Comment on above: Performed By: #### C MP #### [facility] [address] [place] [address] Dr. Julia Velasquez EOS% 0.0 % Critically low 0.9-7.0 [facility] Comment on above: Performed By: #### C MP #### [facility] [address] [place] [address] Dr. Julia Velasquez HCT 27.2 % Critically low 36.0-48.0 [facility] Comment on above: Performed By: #### C MP #### [facility] [address] [place] [address] Dr. Julia Velasquez HGB 8.9 g/dl Critically low 12.0-16.0 [facility] Comment on above: Performed By: #### C MP #### [facility] [address] [address] [address] Julia Velasquez LYMPHM # 0.99 103/ul Critically low 1.20-3.80 [facility] Comment on above: Performed By: #### C MP #### [facility] [address] [place] [address] Dr. Julia Velasquez LYMPHM% 5.0 % Critically low 20.5-60.0 [facility] Comment on above: Performed By: #### C MP #### [facility] [address] [place] [address] Dr. Julia Velasquez MCH 29.3 pg Normal 26.7-34.0 [facility] Comment on above: Performed By: #### C MP #### [facility] [address] [place] [address] Dr. Julia Velasquez MCHC 32.7 g/dl Normal 29.9-35.[address] [facility] Comment on above: Performed By: #### C MP #### [facility] [address] [place] [address] Dr. Julia Velasquez MCV 89.5 fL Normal 81.0-99.0 [facility] Comment on above: Performed By: #### C MP #### [facility] [address] [place] [address] Dr. Julia Velasquez METAMYELOCYTE # Normal [facility] Comment on above: Performed By: #### C MP #### [facility] [address] [place] [address] Dr. Julia Velasquez METAMYELOCYTE % Normal [facility] Comment on above: Performed By: #### C MP #### [facility] [address] [place] [address] Dr. Julia Velasquez MONOM# 0.59 103/ul Normal 0.30-0.[address] [facility] Comment on above: Performed By: #### C MP #### [facility] [address] [place] [address] Dr. Julia Velasquez MONOM% 3.0 % Normal 1.7-12.0 [facility] Comment on above: Performed By: #### C MP #### [facility] [address] [address] [address] Julia Velasquez MPV 10.9 fL Normal 9.5-13.5 [facility] Comment on above: Performed By: #### C MP #### [facility] [address] [address] [address] Julia Velasquez MYELOCYTE # Normal [facility] Comment on above: Performed By: #### C MP #### [facility] [address] [address] [address] Julia Velasquez MYELOCYTE % Normal [facility] Comment on above: Performed By: #### C MP #### [facility] [address] [place] [address] Dr. Julia Velasquez NRBC Normal [facility] Comment on above: Performed By: #### C MP #### [facility] [address] [place] [address] Dr. Julia Velasquez PLT 268 103/ul Normal 150-450 [facility] Comment on above: Performed By: #### C MP #### [facility] [address] [place] [address] Dr. Julia Velasquez RBC 3.04 106/ul Critically low 4.20-5.40 [facility] Comment on above: Performed By: #### C MP #### [facility] [address] [place] [address] Dr. Julia Velasquez RDW 15.0 % Normal 11.0-15.0 [facility] Comment on above: Performed By: #### C MP #### [facility] [address] [place] [address] Dr. Julia Velasquez SEG # 17.42 103/ul Critically high 1.40-6.50 [facility] Comment on above: Performed By: #### C MP #### [facility] [address] [place] [address] Dr. Julia Velasquez SEG % 88.0 % Critically high 43.0-75.0 [facility] Comment on above: Performed By: #### C MP #### [facility] [address] [place] [address] Dr. Julia Velasquez WBC 19.8 103/ul Critically high 4.0-11.0 [facility] Comment on above: Performed By: #### C #### [facility] [address] [place], [place] [address] ABD/PELVIS WO CONon [...] RAKESH MANNING Date: 2022-12-09 19:[address] [facility] CT FACIAL BONES WO CONon CT [...] KELVIN MCLAUGHLIN Date: 2022-12-09 20:[address] [facility] Covid-19 PCR (CVDTB)on SARS-CoV-2 (COVID-19) RNA MARIO+probe Ql (Unsp spec) Not detected Normal NOT DETECTED [facility] Comment on above: Result Comment: When [...] for this test is supported by the [place] of Health and Human Service's declaration that [...] #### L IVER, BMP, LIPA, EDSON #### [facility] [address] [place] [address] Dr. Julia Velasquez LIPASEon 12-09-2022 Lipase [Catalytic activity/Vol] 86.0 U/L Normal 73.0-393.0 [facility] Comment on above: Performed By: #### L IVER BMP, LIPA, EDSON #### [facility] [address] [place] [address] Dr. Julia Velasquez LIVER PROFILEon 12-09-2022 Albumin [Mass/Vol] 2.4 g/dL Critically low 3.4-5.[address] [facility] Comment on above: Performed By: #### L IVER BMP, LIPA, EDSON #### [facility] [address] [place] [address] Dr. Julia Velasquez Albumin/Globulin [Mass ratio] 0.5 {ratio} Normal [facility] Comment on above: Performed By: #### L IVER, BMP, LIPA, EDSON #### [facility] [address] [place] [address] Dr. Julia Velasquez ALP [Catalytic activity/Vol] 104 U/L Normal 46-116 [facility] Comment on above: Performed By: #### L IVER, BMP, LIPA, EDSON #### [facility] [address] [place] [address] Dr. Julia Velasquez ALT [Catalytic activity/Vol] 35 U/L Normal 14-59 [facility] Comment on above: Performed By: #### L IVER, BMP, LIPA, EDSON #### [facility] [address] [place] [address] Dr. Julia Velasquez AST [Catalytic activity/Vol] 59 U/L Critically high 15-37 [facility] Comment on above: Performed By: #### L IVER, BMP, LIPA, EDSON #### [facility] [address] [place] [address] Dr. Julia Velasquez BILI, CONJUGATED 1.0 mg/dL Critically high 0.0-0.2 [facility] Comment on above: Performed By: #### L IVER, BMP, LIPA, EDSON #### [facility] [address] [place] [address] Dr. Julia Velasquez Bilirubin [Mass/Vol] 1.9 mg/dL Critically high 0.2-1.0 [facility] Comment on above: Performed By: #### L IVER, BMP, LIPA, EDSON #### [facility] [address] [place] [address] Dr. Julia Velasquez Globulin (S) [Mass/Vol] 5.0 g/dL Normal [facility] Comment on above: Performed By: #### L IVER, BMP, LIPA, EDSON #### [facility] [address] [place] [address] Dr. Julia Velasquez Protein [Mass/Vol] 7.4 g/dL Normal 6.4-8.2 [facility] Comment on above: Performed By: #### L IVER, BMP, LIPA, EDSON #### [facility] [address] [place] [address] Dr. Julia Velasquez OCC BLD IMMUNOASSAYon 2022 OCCULT BLOOD Negative Normal NEGATIVE [facility] Comment on above: Performed By: #### L IVER, BMP, LIPA, EDSON #### [facility] [address] [place] [address] Dr. Julia Velasquez PROF CHEM 8 (BAS METB)on Anion gap [Moles/Vol] 18.8 mmol/L Normal [facility] Comment on above: Performed By: #### L IVER, BMP, LIPA, EDSON #### [facility] [address] [place] [address] Dr. Julia Velasquez Calcium [Mass/Vol] 9.2 mg/dL Normal 8.5-10.1 [facility] Comment on above: Performed By: #### L IVER, BMP, LIPA, EDSON #### [facility] [address] [place] [address] Dr. Julia Velasquez Chloride [Moles/Vol] 100 mmol/L Normal 98-107 [facility] Comment on above: Performed By: #### L IVER, BMP, LIPA, EDSON #### [facility] [address] [place] [address] Dr. Julia Velasquez CO2 [Moles/Vol] 24.3 mmol/L Normal 21.0-32.0 [facility] Comment on above: Performed By: #### L IVER, BMP, LIPA, EDSON #### [facility] [address] [place] [address] Dr. Julia Velasquez Creatinine [Mass/Vol] 2.98 mg/dL Critically high 0.55-1.02 [facility] Comment on above: Performed By: #### L IVER, BMP, LIPA, EDSON #### [facility] [address] [place] [address] Dr. Julia Velasquez EGFR-AF BERMUDIAN 18 mL/min/1.73m2 Critically low >=60 [facility] Comment on above: Performed By: #### L IVER, BMP, LIPA, EDSON #### [facility] [address] [place] [address] Dr. Julia Velasquez EGFR-NON AF BERMUDIAN 15 mL/min/1.73m2 Critically low >=60 [facility] Comment on above: Performed By: #### L IVER, BMP, LIPA, EDSON #### [facility] [address] [place] [address] Dr. Julia Velasquez Glucose [Mass/Vol] 116 mg/dL Critically high 74-106 [facility] Comment on above: Performed By: #### L IVER, BMP, LIPA, EDSON #### [facility] [address] [place] [address] [address] Julia Velasquez Potassium [Moles/Vol] 4.1 mmol/L Normal 3.5-5.1 [facility] Comment on above: Performed By: #### L IVER, BMP, LIPA, EDSON #### [facility] [address] [place] [address] Dr. Julia Velasquez Sodium [Moles/Vol] 139 mmol/L Normal 136-145 [facility] Comment on above: Performed By: #### L IVER, BMP, LIPA, EDSON #### [facility] [address] [place] [address] Dr. Julia Velasquez Urea nitrogen [Mass/Vol] 57.0 mg/dL Critically high 7.0-18.0 [facility] Comment on above: Performed By: #### L IVER, BMP, LIPA, EDSON #### [facility] [address] [place] [address] Dr. Julia Velasquez Urea nitrogen/Creatinine [Mass ratio] 19.1 mg/mg Normal [facility] Comment on above: Performed By: #### L IVER, BMP, LIPA, EDSON #### [facility] [address] [place] [address] Dr. Julia Velasquez CBC AUTO DIFFon 08-26-2022 BASO # 0.0 103/ul Normal 0.0-0.1 [facility] Comment on above: Performed By: #### L IVER, BMP, LIPA, EDSON #### [facility] [address] [place] [address] Dr. Julia Velasquez Basophils/100 WBC (Bld) 0.6 % Normal 0.2-2.0 [facility] Comment on above: Performed By: #### L IVER, BMP, LIPA, EDSON #### [facility] [address] [place] [address] Dr. Julia Velasquez EO # 0.3 103/ul Normal 0.0-0.7 [facility] Comment on above: Performed By: #### L IVER, BMP, LIPA, EDSON #### [facility] [address] [place] [address] Dr. Julia Velasquez Eosinophils/100 WBC (Bld) 4.9 % Normal 0.9-7.[address] [facility] Comment on above: Performed By: #### L IVER, BMP, LIPA, EDSON #### [facility] [address] [place] [address] Dr. Julia Velasquez Erythrocyte distribution width (RBC) [Ratio] 13.2 % Normal 11.0-15.0 [facility] Comment on above: Performed By: #### L IVER, BMP, LIPA, EDSON #### [facility] [address] [place] [address] Dr. Julia Velasquez Hematocrit (Bld) [Volume fraction] 40.9 % Normal 36.0-48.0 [facility] Comment on above: Performed By: #### L IVER, BMP, LIPA, EDSON #### [facility] [address] [place] [address] Dr. Julia Velasquez Hemoglobin (Bld) [Mass/Vol] 13.0 g/dL Normal 12.0-16.0 [facility] Comment on above: Performed By: #### L IVER, BMP, LIPA, EDSON #### [facility] [address] [place] [address] Dr. Julia Velasquez IG # 0.05 10e3/ul Critically high 0.00-0.03 [facility] Comment on above: Performed By: #### L IVER, BMP, LIPA, EDSON #### [facility] [address] [place] [address] Dr. Julia Velasquez IG % 1.0 % Critically high 0.0-0.5 [facility] Comment on above: Performed By: #### L IVER, BMP, LIPA, EDSON #### [facility] [address] [place] [address] Dr. Julia Velasquez LYMPH # 1.3 103/ul Normal 1.2-3.8 [facility] Comment on above: Performed By: #### L IVER, BMP, LIPA, EDSON #### [facility] [address] [place] [address] Dr. Julia Velasquez Lymphocytes/100 WBC (Bld) 26.1 % Normal 20.5-60.[address] [facility] Comment on above: Performed By: #### L IVER, BMP, LIPA, EDSON #### [facility] [address] [place] [address] Dr. Julia Velasquez MANUAL DIFF REQ NO Normal [facility] Comment on above: Performed By: #### L IVER, BMP, LIPA, EDSON #### [facility] [address] [place] [address] Dr. Julia Velasquez MCH (RBC) [Entitic mass] 29.6 pg Normal 26.7-34.0 [facility] Comment on above: Performed By: #### L IVER, BMP, LIPA, EDSON #### [facility] [address] [place] [address] Dr. Julia Velasquez MCHC (RBC) [Mass/Vol] 31.8 g/dL Normal 29.9-35.[address] [facility] Comment on above: Performed By: #### L IVER, BMP, LIPA, EDSON #### [facility] [address] [place] [address] Dr. Julia Velasquez MCV (RBC) [Entitic vol] 93.2 fL Normal 81.0-99.[address] [facility] Comment on above: Performed By: #### L IVER, BMP, LIPA, EDSON #### [facility] [address] [place] [address] Dr. Julia Velasquez MONO # 0.4 103/ul Normal 0.3-0.[address] [facility] Comment on above: Performed By: #### L IVER, BMP, LIPA, EDSON #### [facility] [address] [place] [address] Dr. Julia Velasqeuz Monocytes/100 WBC (Bld) 7.7 % Normal 1.7-12.0 [facility] Comment on above: Performed By: #### L IVER, BMP, LIPA, EDSON #### [facility] [address] [place] [address] Dr. Julia Velasquez NEUT # 3.0 103/ul Normal 1.4-6.[address] [facility] Comment on above: Performed By: #### L IVER, BMP, LIPA, EDSON #### [facility] [address] [place] [address] Dr. Julia Velasquez Neutrophils/100 WBC (Bld) 59.7 % Normal 43.0-75.0 [facility] Comment on above: Performed By: #### L IVER, BMP, LIPA, EDSON #### [facility] [address] [place] [address] Dr. Julia Velasquez Platelet mean volume (Bld) [Entitic vol] 10.6 fL Normal 9.5-13.[address] [facility] Comment on above: Performed By: #### L IVER, BMP, LIPA, EDSON #### [facility] [address] [place] [address] Dr. Julia Velasquez PLT 248 103/ul Normal 150-[address] [facility] Comment on above: Performed By: #### L IVER, BMP, LIPA, EDSON #### [facility] [address] [place] [address] Dr. Julia Velasquez RBC 4.39 106/ul Normal 4.20-5.[address] [facility] Comment on above: Performed By: #### L IVER, BMP, LIPA, EDSON #### [facility] [address] [place] [address] Dr. Julia Velasquez WBC 5.1 103/ul Normal 4.0-11.0 [facility] Comment on above: Performed By: #### L IVER, BMP, LIPA, EDSON #### [facility] [address] [place], [place] [id number] Dr. Julia Velasquez LIPID PROFILEon 08-26-2022 CHOL-HDL RATIO NORM SEE BELOW Normal [facility] Comment on above: Result Comment: 3.3 - 4.4 LOW RISK 4.4 - 7.1 AVERAGE RISK 7.1 - 11.0 MODERATE RISK >11.0 HIGH RISK Performed By: #### L IVER, BMP, LIPA, EDSON #### [facility] [address] [place] [address] Dr. Julia Velasquez Cholesterol [Mass/Vol] 177 mg/dL Normal <=200 [facility] Comment on above: Performed By: #### L IVER, BMP, LIPA, EDSON #### [facility] [address] [place] [address] Dr. Julia Velasquez Cholesterol in HDL [Mass/Vol] 56 mg/dL Normal 40-60 [facility] Comment on above: Performed By: #### L IVER, BMP, LIPA, EDSON #### [facility] [address] [place] [address] Dr. Julia Velasquez Cholesterol in LDL [Mass/Vol] 99.4 mg/dL Normal [facility] Comment on above: Performed By: #### L IVER, BMP, LIPA, EDSON #### [facility] [address] [place] [address] Dr. Julia Velasquez Cholesterol.total/C holesterol in HDL [Mass ratio] 3.2 {ratio} Normal [facility] Comment on above: Performed By: #### L IVER, BMP, LIPA, EDSON #### [facility] [address] [place] [address] Dr. Julia Velasquez HDL NORMAL > or = 60 mg/dl - LO W CARDIOVASCULAR RISK <40 mg/dl - HIGH CARDIOVASCULAR RISK Normal [facility] Comment on above: Performed By: #### L IVER, BMP, LIPA, EDSON #### [facility] [address] [place] [address] Dr. Julia Velasquez LDL CALC NORMAL SEE BELOW Normal [facility] Comment on above: Result Comment: <100 mg/dl OPTIMAL 100 - 129 mg/dl NEAR OR ABOVE OPTIMAL 130 - 159 mg/dl BORDERLINE HIGH 160 - 189 mg/dl HIGH >190 mg/dl VERY HIGH Performed By: #### L IVER, BMP, LIPA, EDSON #### [facility] [address] [place] [address] [address] Julia Velasquez Triglyceride [Mass/Vol] 108 mg/dL Normal <=150 [facility] Comment on above: Performed By: #### L IVER, BMP, LIPA, EDSON #### [facility] [address] [place] [address] [address] Julia Velasquez VLDL CALC 21.6 mg/dL Normal [facility] Comment on above: Performed By: #### L IVER, BMP, LIPA, EDSON #### [facility] [address] [place] [address] Dr. Julia Velasquez PROF CHEM 8 (BAS METB)on Anion gap [Moles/Vol] 11.5 mmol/L Normal [facility] Comment on above: Performed By: #### L IVER, BMP, LIPA, EDSON #### [facility] [address] [place] [address] Dr. Julia Velasquez Calcium [Mass/Vol] 9.3 mg/dL Normal 8.5-10.1 [facility] Comment on above: Performed By: #### L IVER, BMP, LIPA, EDSON #### [facility] [address] [place] [address] Dr. Julia Velasquez Chloride [Moles/Vol] 104 mmol/L Normal 98-[address] [facility] Comment on above: Performed By: #### L IVER, BMP, LIPA, EDSON #### [facility] [address] [place] [address] Dr. Julia Velasquez CO2 [Moles/Vol] 30.5 mmol/L Normal 21.0-32.0 [facility] Comment on above: Performed By: #### L IVER, BMP, LIPA, EDSON #### [facility] [address] [place] [address] Dr. Julia Velasquez Creatinine [Mass/Vol] 1.09 mg/dL Critically high 0.55-1.02 [facility] Comment on above: Performed By: #### L IVER, BMP, LIPA, EDSON #### [facility] [address] [place] [address] Dr. Julia Velasquez EGFR-AF BERMUDIAN 59 mL/min/1.73m2 Critically low >=60 [facility] Comment on above: Performed By: #### L IVER, BMP, LIPA, EDSON #### [facility] [address] [place] [address] Dr. Julia Velasquez EGFR-NON AF BERMUDIAN 48 mL/min/1.73m2 Critically low >=60 [facility] Comment on above: Performed By: #### L IVER, BMP, LIPA, EDSON #### [facility] [address] [place] [address] Dr. Julia Velasquez Glucose [Mass/Vol] 89 mg/dL Normal 74-106 [facility] Comment on above: Performed By: #### L IVER, BMP, LIPA, EDSON #### [facility] [address] [place] [address] Dr. Julia Velasquez Potassium [Moles/Vol] 4.0 mmol/L Normal 3.5-5.1 [facility] Comment on above: Performed By: #### L IVER, BMP, LIPA, EDSON #### [facility] [address] [place] [address] Dr. Julia Velasquez Sodium [Moles/Vol] 142 mmol/L Normal 136-145 [facility] Comment on above: Performed By: #### L IVER, BMP, LIPA, EDSON #### [facility] [address] [place] [address] Dr. Julia Velasquez Urea nitrogen [Mass/Vol] 16.0 mg/dL Normal 7.0-18.0 [facility] Comment on above: Performed By: #### L IVER, BMP, LIPA, EDSON #### [facility] [address] [place] [address] Dr. Julia Velasquez Urea nitrogen/Creatinine [Mass ratio] 14.7 mg/mg Normal [facility] Comment on above: Performed By: #### L IVER, BMP, LIPA, EDSON #### [facility] [address] [place] [address] [address] Julia Velasquez XR DEXA BONE DENSITYon [...] by: BUCKY CRAIG Date: 2022-08-25 14:10 Normal [facility] Vital Signs Date Time Vital Sign Value Performing Clinician Facility 08-18-2024 17:29-0500 Body mass index (BMI) [Ratio] 24.33 kg/m2 Shivam Ponce MD Work Phone: [facility] 08-18-2024 17:29-0500 Body weight 61.33 kg Shivam Ponce MD Work Phone: [facility] 08-18-2024 17:29-0500 Diastolic blood pressure 72 mm[Hg] Shivam Ponce MD Work Phone: [facility] 08-18-2024 17:29-0500 Systolic blood pressure 112 mm[Hg] Shivam Ponce MD Work Phone: [facility] 07-20-2024 11:01-0500 Body height 166.37 cm Kyle Ball DO Work Phone: [facility] 07-20-2024 11:01-0500 Body mass index (BMI) [Ratio] 22.6 kg/m2 Kyle Ball DO Work Phone: [facility] 07-20-2024 11:01-0500 Body weight 62.65 kg Kyle Ball DO Work Phone: [facility] 07-20-2024 11:01-0500 Diastolic blood pressure 72 mm[Hg] Kyle Ball DO Work Phone: [facility] 07-20-2024 11:01-0500 Heart rate 61 /min Kyle Ball DO Work Phone: [facility] 07-20-2024 11:01-0500 Respiratory rate 12 /min Kyle Ball DO Work Phone: [facility] 07-20-2024 11:01-0500 Systolic blood pressure 135 mm[Hg] Kyle Ball DO Work Phone: [facility] 07-07-2024 11:33-0400 Body mass index (BMI) [Ratio] 25.02 kg/m2 Shivam Ponce MD Work Phone: [facility] 07-07-2024 11:33-0400 Body weight 63.05 kg Shivam Ponce MD Work Phone: [facility] 07-07-2024 11:33-0400 Diastolic blood pressure 70 mm[Hg] Shivam Ponce MD Work Phone: [facility] 07-07-2024 11:33-0400 Heart rate 66 /min Shivam Ponce MD Work Phone: [facility] 07-07-2024 11:33-0400 Systolic blood pressure 102 mm[Hg] Shivam Ponce MD Work Phone: [facility] 06-14-2024 11:09-0400 Body height 166.37 cm [facility] 06-14-2024 11:09-0400 Body mass index (BMI) [Ratio] 22.3 kg/m2 [facility] 06-14-2024 11:09-0400 Body weight 61.74 kg [facility] 06-14-2024 11:09-0400 Diastolic blood pressure 77 mm[Hg] [facility] 06-14-2024 11:09-0400 Heart rate 64 /min [facility] 06-14-2024 11:09-0400 Respiratory rate 12 /min [facility] 06-14-2024 11:09-0400 Systolic blood pressure 132 mm[Hg] [facility] 06-01-2024 11:33-0400 Body height 158.8 cm Shivam Ponce MD Work Phone: [facility] 06-01-2024 11:33-0400 Body mass index (BMI) [Ratio] 23.94 kg/m2 Shivam Ponce MD Work Phone: [facility] 06-01-2024 11:33-0400 Body weight 60.33 kg Shivam Ponce MD Work Phone: [facility] 06-01-2024 11:33-0400 Diastolic blood pressure 74 mm[Hg] Shivam Ponce MD Work Phone: [facility] 06-01-2024 11:33-0400 Systolic blood pressure 122 mm[Hg] Shivam Ponce MD Work Phone: [facility] 05-27-2024 11:40-0400 Body height 166.37 cm [facility] 05-27-2024 11:40-0400 Body mass index (BMI) [Ratio] 21.8 kg/m2 [facility] 05-27-2024 11:40-0400 Body weight 60.44 kg [facility] 05-27-2024 11:40-0400 Diastolic blood pressure 64 mm[Hg] [facility] 05-27-2024 11:40-0400 Heart rate 63 /min [facility] 05-27-2024 11:40-0400 Respiratory rate 12 /min [facility] 05-27-2024 11:40-0400 Systolic blood pressure 118 mm[Hg] [facility] 05-17-2024 11:03-0400 Body height 166.37 cm [facility] 05-17-2024 11:03-0400 Body mass index (BMI) [Ratio] 21.4 kg/m2 [facility] 05-17-2024 11:03-0400 Body weight 59.47 kg [facility] 05-17-2024 11:03-0400 Diastolic blood pressure 79 mm[Hg] [facility] 05-17-2024 11:03-0400 Heart rate 57 /min [facility] 05-17-2024 11:03-0400 Respiratory rate 12 /min [facility] 05-17-2024 11:03-0400 Systolic blood pressure 136 mm[Hg] [facility] 05-03-2024 11:14-0400 Body height 158.8 cm Kulwinder Rivono Work Phone: [facility] 05-03-2024 11:14-0400 Body mass index (BMI) [Ratio] 23.76 kg/m2 [employer] Phone: [facility] 05-03-2024 11:14-0400 Body weight 59.88 kg [employer] Phone: [facility] 05-03-2024 11:14-0400 Diastolic blood pressure 68 mm[Hg] [employer] Phone: [facility] 05-03-2024 11:14-0400 Systolic blood pressure 126 mm[Hg] [employer] Phone: [facility] 03-09-2024 11:18-0400 Body height 166.37 cm [facility] 03-09-2024 11:18-0400 Body mass index (BMI) [Ratio] 21.8 kg/m2 [facility] 03-09-2024 11:18-0400 Body weight 60.44 kg [facility] 03-09-2024 11:18-0400 Diastolic blood pressure 73 mm[Hg] [facility] 03-09-2024 11:18-0400 Heart rate 68 /min [facility] 03-09-2024 11:18-0400 Respiratory rate 12 /min [facility] 03-09-2024 11:18-0400 Systolic blood pressure 128 mm[Hg] [facility] 11-25-2023 11:17-0400 Body height 166.37 cm [facility] 11-25-2023 11:17-0400 Body mass index (BMI) [Ratio] 23.3 kg/m2 [facility] 11-25-2023 11:17-0400 Body weight 64.63 kg [facility] 11-25-2023 11:17-0400 Diastolic blood pressure 72 mm[Hg] [facility] 11-25-2023 11:17-0400 Heart rate 66 /min [facility] 11-25-2023 11:17-0400 Respiratory rate 12 /min [facility] 11-25-2023 11:17-0400 Systolic blood pressure 127 mm[Hg] [facility] 10-14-2023 11:20-0500 Body mass index (BMI) [Ratio] 24.96 kg/m2 Shivam Ponce MD Work Phone: [facility] 10-14-2023 11:20-0500 Body weight 63.41 kg Shivam Ponce MD Work Phone: [facility] 10-14-2023 11:20-0500 Diastolic blood pressure 82 mm[Hg] Shivam Ponce MD Work Phone: [facility] [facility] 10-14-2023 11:20-0500 Systolic blood pressure 130 mm[Hg] Shivam Ponce MD Work Phone: [facility] 08-25-2023 15:00-0500 Body weight 63.04 kg [facility] 08-25-2023 15:00-0500 Diastolic blood pressure 64 mm[Hg] [facility] 08-25-2023 15:00-0500 Systolic blood pressure 114 mm[Hg] [facility] 08-25-2023 11:15-0500 Body height 166.37 cm Doni Rivera Other [facility] 08-25-2023 11:15-0500 Body mass index (BMI) [Ratio] 22.61 kg/m2 Doni Rivera Other [employer] Other 08-25-2023 11:15-0500 Body weight 62.6 kg Doni Rivera Other [employer] Other 08-25-2023 11:15-0500 Diastolic blood pressure 73 mm[Hg] Doni Rivera Other [employer] Other 08-25-2023 11:15-0500 Systolic blood pressure 117 mm[Hg] Doni Rivera Other [employer] Other 05-27-2023 10:00-0400 Body height 166.37 cm Kyle Ball Other [employer] Other 05-27-2023 10:00-0400 Body mass index (BMI) [Ratio] 22.74 kg/m2 Kyle Ball Other [employer] Other 05-27-2023 10:00-0400 Body weight 62.96 kg Kyle Ball Other [employer] Other 05-27-2023 10:00-0400 Diastolic blood pressure 72 mm[Hg] Kyle Ball Other [employer] Other 05-27-2023 10:00-0400 Respiratory rate 12 /min Kyle Ball Other [employer] Other 05-27-2023 10:00-0400 Systolic blood pressure 131 mm[Hg] Kyle Ball Other [employer] Other 02-10-2023 10:30-0400 Body height 166.37 cm Kyle Ball Other [employer] Other 02-10-2023 10:30-0400 Body mass index (BMI) [Ratio] 24.55 kg/m2 Kyle Ball Other [facility] Other 02-10-2023 10:30-0400 Body weight 67.95 kg Kyle Ball Other [employer] Other 02-10-2023 10:30-0400 Diastolic blood pressure 78 mm[Hg] Kyle Ball Other [employer] Other 02-10-2023 10:30-0400 Respiratory rate 12 /min Kyle Ball Other [employer] Other 02-10-2023 10:30-0400 Systolic blood pressure 111 mm[Hg] Kyle Ball Other [employer] Other 01-01-2023 11:30-0400 Body height 166.37 cm Kyle Ball Other [employer] Other 01-01-2023 11:30-0400 Body mass index (BMI) [Ratio] 23.01 kg/m2 Kyle Ball Other [employer] Other 01-01-2023 11:30-0400 Body weight 63.69 kg Kyle Ball Other [employer] Other 01-01-2023 11:30-0400 Diastolic blood pressure 77 mm[Hg] Kyle Ball Other [employer] Other 01-01-2023 11:30-0400 Respiratory rate 12 /min Kyle Ball Other [employer] Other 01-01-2023 11:30-0400 Systolic blood pressure 124 mm[Hg] Kyle Ball Other [employer] Other 12-17-2022 11:15-0400 Body height 166.37 cm Kyle Ball Other [employer] Other 12-17-2022 11:15-0400 Body mass index (BMI) [Ratio] 25.3 kg/m2 Kyle Ball Other [employer] Other 12-17-2022 11:15-0400 Body weight 70.04 kg Kyle Ball Other [employer] Other 12-17-2022 11:15-0400 Diastolic blood pressure 70 mm[Hg] Kyle Ball Other [employer] Other 12-17-2022 11:15-0400 Respiratory rate 12 /min Kyle Ball Other [employer] Other 12-17-2022 11:15-0400 Systolic blood pressure 168 mm[Hg] Kyle Ball Other [employer] Other 11-17-2022 12:00-0400 Body height 166.37 cm Kyle Ball Other [employer] Other 11-17-2022 12:00-0400 Body mass index (BMI) [Ratio] 24.15 kg/m2 Kyle Ball Other [employer] Other 11-17-2022 12:00-0400 Body weight 66.86 kg Kyle Ball Other [employer] Other 11-17-2022 12:00-0400 Diastolic blood pressure 74 mm[Hg] Kyle Ball Other [employer] Other 11-17-2022 12:00-0400 Respiratory rate 12 /min Kyle Ball Other [employer] Other 11-17-2022 12:00-0400 Systolic blood pressure 133 mm[Hg] Kyle Ball Other [employer] Other 11-14-2021 15:45-0500 Body height 166.37 cm Doni Rivera Other [employer] Other 11-14-2021 15:45-0500 Body mass index (BMI) [Ratio] 23.6 kg/m2 Doni Rivera Other [employer] Other 11-14-2021 15:45-0500 Body weight 65.32 kg Doni Rivera Other [employer] Other Encounters Encounter Date Encounter Type Care Provider Facility Start: 08-18-2024 End: 08-18-2024 Josué Ponce MD Work Phone: [facility] Start: 08-18-2024 End: 08-18-2024 Josué Excelimmunecarina Ponce MD Work Phone: [facility] Start: 08-18-2024 End: 08-18-2024 ambulatory SHIVAM PONCE Not Available Comment on above: Other nerve root and plexus disorders (Primary Dx); Trochanteric bursitis of both hips Start: 07-22-2024 End: 07-22-2024 ambulatory Kyle Ball DO Work Phone: [facility] Work Phone: Start: 07-22-2024 End: 07-22-2024 Patient encounter procedure Kyle Ball DO Work Phone: [facility] Work Phone: Start: 07-20-2024 End: 07-20-2024 ambulatory Kyle Ball DO Work Phone: [facility] Work Phone: Start: 07-20-2024 End: 07-20-2024 Patient encounter procedure Kyle Ball DO Work Phone: [facility] Work Phone: Start: 07-07-2024 End: 07-07-2024 Bamboo flowsheet Shivam Ponce MD Work Phone: [facility] Start: 07-07-2024 End: 07-07-2024 Bamboo flowsheet Shivam Ponce MD Work Phone: [facility] Start: 07-07-2024 End: 07-07-2024 Clinical Support Shivam Ponce MD Work Phone: [facility] Comment on above: Trochanteric bursiti s of both hips (Primary Dx); Other nerve root and plexus disorders Start: 06-23-2024 End: 06-23-2024 Patient encounter procedure DO Kyle Gottlieb Work Phone: [facility] Work Phone: Start: 06-23-2024 End: 06-23-2024 ambulatory DO Kyle Gottlieb Work Phone: [facility] Work Phone: Start: 06-21-2024 End: 06-21-2024 ambulatory [facility] Work Phone: Start: 06-21-2024 End: 06-21-2024 Patient encounter procedure Counts Include [facility] Work Phone: Start: 06-14-2024 End: 06-14-2024 ambulatory [facility] Work Phone: Start: 06-14-2024 End: 06-14-2024 Patient encounter procedure Counts Include [facility] Work Phone: Start: 06-11-2024 Patient encounter procedure [facility] Start: 06-10-2024 Non-patient / Non-visit [facility] Work Phone: Start: 06-02-2024 End: 06-02-2024 Telephone encounter Shivam Ponce MD Work Phone: [facility] Start: 06-01-2024 End: 06-01-2024 Bamboo flowsheet Shivam Ponce MD Work Phone: [facility] Start: 06-01-2024 End: 06-01-2024 Bamboo flowsheet Shivam Ponce MD Work Phone: [facility] Start: 06-01-2024 End: 06-01-2024 ambulatory SHIVAM PONCE [facility] Comment on above: Trochanteric bursiti s of both hips (Primary Dx); Other nerve root and plexus disorders Start: 05-27-2024 End: 05-27-2024 ambulatory [facility] Work Phone: Start: 05-27-2024 End: 05-27-2024 Patient encounter procedure Counts Include [facility] Work Phone: Start: 05-25-2024 Non-patient / Non-visit Counts Include [facility] Work Phone: Start: 05-17-2024 End: 05-17-2024 ambulatory [facility] Work Phone: Start: 05-17-2024 End: 05-17-2024 Patient encounter procedure Counts Include [facility] Work Phone: Start: 05-11-2024 End: 05-11-2024 ambulatory [facility] Work Phone: Start: 05-11-2024 End: 05-11-2024 Patient encounter procedure Counts Include [facility] Work Phone: Start: 05-03-2024 End: 05-03-2024 Office outpatient visit 25 minutes Kulwinder Dao DO Work Phone: [facility] Comment on above: Postmenopausal atrop hic vaginitis (Primary Dx); Breast cancer screening by mammogram; Hormone replacement therapy Start: 05-03-2024 End: 05-03-2024 ambulatory KULWINDER DAO Not Available Start: 04-12-2024 End: 04-12-2024 ambulatory [facility] Work Phone: Start: 04-12-2024 End: 04-12-2024 Patient encounter procedure Counts Include [facility] Work Phone: Start: 03-30-2024 End: 03-30-2024 ambulatory SHIVAM PONCE Not Available Start: 03-09-2024 End: 03-09-2024 ambulatory [facility] Work Phone: Start: 03-09-2024 End: 03-09-2024 Patient encounter procedure Counts Include [facility] Work Phone: Start: 02-03-2024 End: 02-03-2024 ambulatory [facility] Work Phone: Start: 02-03-2024 End: 02-03-2024 Patient encounter procedure [facility] Work Phone: Start: 01-20-2024 End: 01-20-2024 ambulatory SHIVAM PONCE Not Available Start: 12-28-2023 End: 12-28-2023 ambulatory [facility] Work Phone: Start: 12-28-2023 End: 12-28-2023 Patient encounter procedure [facility] Work Phone: Start: 11-25-2023 End: 11-25-2023 ambulatory [facility] Work Phone: Start: 11-25-2023 End: 11-25-2023 Patient encounter procedure [facility] Work Phone: Start: 11-16-2023 End: 11-16-2023 ambulatory MEL HAYES Not Available Start: 10-21-2023 End: 10-21-2023 ambulatory [facility] Work Phone: Start: 10-21-2023 End: 10-21-2023 Patient encounter procedure [facility] Include [facility] Work Phone: Start: 10-14-2023 End: 10-14-2023 Office outpatient visit 25 minutes Shivam Ponce MD Work Phone: [facility] Comment on above: Brachial plexus neur opathy (Primary Dx); Multiple sclerosis ([facility]/HCC) Start: 10-14-2023 End: 10-14-2023 ambulatory SHIVAM PONCE Not Available Start: 10-13-2023 Chart abstracting Shivam schulz MD Work Phone: [facility] Start: 09-29-2023 End: 09-29-2023 ambulatory Kyle Gottlieb Other [employer] Other Start: 09-29-2023 Telephone encounter Kyle Gottlieb [facility] Start: 09-17-2023 End: 09-17-2023 ambulatory Kyle Gottlieb Other [employer] Other Start: 09-17-2023 Office outpatient vi sit 15 minutes Kyle Gottlieb [facility] Start: 09-17-2023 End: 09-17-2023 Patient encounter procedure [facility] Work Phone: Start: 09-15-2023 End: 09-15-2023 ambulatory Kyle Gottlieb Other [employer] Other Start: 09-15-2023 Nursing evaluation o f patient and report Kyle Gottlieb [facility] Start: 08-28-2023 End: 08-28-2023 ambulatory Tonya Harrison Other [employer] Other Start: 08-28-2023 Nursing evaluation o f patient and report Tonya Harrison [facility] Start: 08-28-2023 Telephone encounter Tonya Strong [facility] Start: 08-26-2023 End: 08-26-2023 ambulatory Tonya Harrison Other [employer] Other Start: 08-26-2023 Telephone encounter Tonya Strong her [facility] Start: 08-25-2023 End: 08-25-2023 ambulatory Doni Tamikasarina Other [employer] Other Start: 08-25-2023 Patient encounter procedure Doni Rivera [facility] Start: 08-25-2023 End: 08-25-2023 Patient encounter procedure [facility] Work Phone: Start: 08-13-2023 End: 08-13-2023 ambulatory Kyle Gottlieb Other [employer] Other Start: 08-13-2023 Nursing evaluation o f patient and report Kyle Gottlieb [facility] Start: 07-09-2023 End: 07-09-2023 ambulatory Kyle Gottlieb Other [employer] Other Start: 07-09-2023 Nursing evaluation o f patient and report Kyle Gottlieb [facility] Start: 06-19-2023 End: 06-19-2023 ambulatory Doni Rivera Other [employer] Other Start: 06-19-2023 Telephone encounter Doni LANZA [facility] Start: 06-18-2023 End: 06-18-2023 ambulatory Doni Rivera Other [employer] Other Start: 06-18-2023 Telephone encounter Doni LANZA [facility] Start: 06-08-2023 End: 06-08-2023 ambulatory Kyle Gottlieb Other [employer] Other Start: 06-08-2023 Nursing evaluation o f patient and report Kyle Gottlieb [facility] Start: 05-29-2023 End: 05-29-2023 ambulatory Kyle Gottlieb Other [employer] Other Start: 05-29-2023 Telephone encounter Kyle Gottlieb [facility] Start: 05-27-2023 End: 05-27-2023 ambulatory Kyle Gottlieb Other [employer] Other Start: 05-27-2023 Patient encounter procedure Kyle Gottlieb [facility] Start: 05-13-2023 End: 05-13-2023 ambulatory DO Kyle Gottlieb Work Phone: [facility] Work Phone: Start: 05-13-2023 End: 05-13-2023 Patient encounter procedure DO Kyle Gottlieb Work Phone: [facility] Work Phone: Start: 05-07-2023 End: 05-07-2023 ambulatory Kyle Gottlieb Other [employer] Other Start: 05-07-2023 Nursing evaluation o f patient and report Kyle Gottlieb [facility] Start: 04-06-2023 End: 04-06-2023 ambulatory Kyle Gottlieb Other [employer] Other Start: 04-06-2023 Nursing evaluation o f patient and report Kyle Gottlieb [facility] Start: 03-23-2023 End: 03-23-2023 ambulatory Kyle Gottlieb Other [employer] Other Start: 03-23-2023 Nursing evaluation o f patient and report Kyle Gottlieb [facility] Start: 03-16-2023 End: 03-16-2023 ambulatory Kyle Gottlieb Other [employer] Other Start: 03-16-2023 Nursing evaluation o f patient and report Kyle Gottlieb [facility] Start: 03-13-2023 End: 03-13-2023 ambulatory Kyle Gottlieb Other [employer] Other Start: 03-13-2023 Telephone encounter Kyle Gottlieb [facility] Start: 03-11-2023 End: 03-11-2023 ambulatory Kyle Gottlieb Other [employer] Other Start: 03-11-2023 Telephone encounter Kyle Gottlieb [facility] Start: 02-10-2023 End: 02-10-2023 ambulatory Kyle Gottlieb Other [employer] Other Start: 02-10-2023 Office outpatient vi sit 25 minutes Kyle Ball [facility] Start: 02-04-2023 End: 02-04-2023 ambulatory Kyle Gottlieb Other [employer] Other Start: 02-04-2023 Telephone encounter Kyle Gottlieb [facility] Start: 02-03-2023 End: 02-04-[address] KYLE GOTTLIEB Facility:[facility] Start: 02-03-2023 Telephone encounter Kyle Gottlieb [facility] Start: 01-09-2023 End: 01-09-2023 ambulatory Kyle Gottlieb Other [employer] Other Start: 01-09-2023 Telephone encounter Kyle Gottlieb [facility] Start: 01-07-2023 End: 01-08-[address] KYLE GOTTLIEB Facility:[facility] Start: 01-01-2023 End: 01-01-2023 ambulatory Kyle Bull Other [employer] Other Start: 01-01-2023 Office outpatient vi sit 25 minutes Kyle Ball [facility] Start: 12-17-2022 End: 12-17-2022 ambulatory Kyle Gottlieb Other [employer] Other Start: 12-17-2022 Telephone encounter Kyle Gottlieb [facility] Start: 12-17-2022 Transitional care manage srvc 7 day discharge Kyle Gottlieb [facility] Start: 12-16-2022 End: 12-16-2022 ambulatory Kyle Gottlieb Other [employer] Other Start: 12-16-2022 Telephone encounter Kyle LANZA [facility] Start: 12-10-2022 End: 12-14-2022 Evaluation and management of inpatient DR BYRON PEREZ . Facility:[facility] Start: 12-08-2022 End: 12-08-2022 ambulatory Doni Rivera Other [employer] Other Start: 12-08-2022 Telephone encounter Doni Lafleur [facility] Start: 11-17-2022 End: 11-17-2022 ambulatory Kyle Gottlieb Other [employer] Other Start: 11-17-2022 Office outpatient vi sit 25 minutes Kyle Gottlieb [facility] Start: 09-03-2022 End: 09-03-2022 ambulatory Doni Rivera Other [employer] Other Start: 09-03-2022 Telephone encounter Doni Lafleur [facility] Start: 08-26-2022 End: 08-27-[address] KYLE GOTTLIEB Facility:[facility] Start: 08-25-2022 End: 08-26-[address] KYLE GOTTLIEB Facility:[facility] Start: 05-19-2022 Adult health examination Kyle Gottlieb Other [employer] Other Start: 04-28-2022 End: 06-13-[address] KYLE GOTTLIEB Facility:[facility] Start: 04-14-2022 End: 04-14-2022 Patient encounter procedure DO [facility] Start: 04-09-2022 End: 04-09-2022 ambulatory Doni Rivera Other [employer] Other Start: 04-09-2022 Telephone encounter Doni Lafle[facility] Start: 12-05-2021 End: 12-05-2021 ambulatory Doni Rivera Other [employer] Other Start: 12-05-2021 Telephone encounter Doni Rivera [facility] Start: 11-14-2021 End: 11-14-2021 ambulatory Doni Rivera Other [employer] Other Start: 11-14-2021 Patient encounter procedure Doni Rivera [facility] Procedures Date Procedure Procedure Detail Performing Clinician Start: 06-23-2024 Screening mammograph y of bilateral breasts DO Kyle NPR Work Phone: Start: 05-13-2023 Screening mammograph y of bilateral breasts DO Kyle NPR Work Phone: Start: 04-14-2022 Screening mammograph y of bilateral breasts DO Kyle Ball Work Phone: Depression screening Benjami n Ball Other Plan of Treatment Date Care Activity Detail Author Start: 05-09-2025 End: 05-09-2025 Patient encounter procedure 05/09/2025 11:30 AM EDT Office Visit [facility] [address] [place] [address] Kulwinder Dao, DO [address] [place] [address] [facility] Start: 10-14-2024 End: 10-14-2024 Clinical Support 10/14/2024 11:30 AM EST Clinical Support [facility] [address] [place] [id number] Shivam Ponce MD [address] [facility] [address] [id number] [facility] Start: 08-18-2024 End: 08-18-2024 Clinical Support 08/18/2024 11:40 AM EST Clinical Support [facility] [address] [place] [address] Shivam Ponce MD [address] [facility] [address] [place] [address], [place] [id number] Arrived [facility] Comment on above: Arrived Start: 08-15-2024 End: 08-15-2024 Clinical Support 08/15/2024 11:20 AM EST Clinical Support [facility] [address] [place] [address] Shivam Ponce MD [address] [facility] [address] [place] [address], [place] [address] [facility] Start: 07-07-2024 End: 07-07-2024 Clinical Support [facility] Comment on above: Arrived Start: 06-01-2024 End: 06-01-2024 Clinical Support [facility] Comment on above: Arrived Start: 05-14-2024 End: 07-03-2025 DBT Breast - bilateral screening Bilateral screening mammogram with tomosynthesis Imaging Routine Breast cancer screening by mammogram Expected: 05/14/2024, Expires: 07/03/2025 [facility] Work Phone: Comment on above: Expected: 05/14/2024 , Expires: 07/03/2025 Start: 05-08-2024 Influenza vaccination Influenza Vacc ine (#1) [facility] Start: 05-03-2024 End: 05-03-2024 Patient encounter procedure 05/03/2024 11:15 AM EDT Office Visit [facility] [address] [place] [address] Kulwinder Dao, DO [address] [place] [address] [facility] Start: 01-20-2024 End: 01-20-2024 Patient encounter procedure 01/20/2024 10:40 AM EDT Office Visit [facility] [address] [place] [address] Shivam Ponce MD [address] [facility] [address] [place] [id number] [facility] Start: 11-16-2023 End: 11-16-2023 Patient encounter procedure 11/16/2023 11:40 AM EDT [facility] [address] [place] [address] Mel Hayes MD [address] [place] [address] [facility] Start: 10-14-2023 End: 10-14-2023 Patient encounter procedure 10/14/2023 11:20 AM EST Office Visit [facility] [address] [place] [address] Shivam Ponce MD [address] [facility] [address] [place] [id number] [facility] Start: 05-08-2023 Influenza vaccination Influenza Vacc ine (#1) [facility] Start: 2007 Pneumococcal Vaccine : 65+ Years (1 - PCV) Pneumococcal Vaccine: 65+ Years (1 - PCV) [facility] CT Unspecified body region WO contrast [facility] XR Foot - left GE 3 Views [facility] Immunizations Immunization Date Immunization Notes Care Provider Fa cility 05-27-2023 influenza virus vaccine, unspecified formulation [facility] 05-27-2023 Prevnar 20 Kyle Gottlieb Other [facility] 05-27-2023 influenza, high dose seasonal, preservative-free Kyle Gottlieb Other [employer] Other 07-11-2022 COVID-19 Pfizer (Pediatric) Kyle Gottlieb Other [facility] 06-23-2022 influenza, injectabl e, quadrivalent, preservative free Shivam Ponce MD Work Phone: [facility] 06-23-2022 influenza virus vaccine, unspecified formulation Shivam Ponce MD Work Phone: [facility] 05-19-2022 influenza virus vaccine, split virus (incl. purified surface antigen) Kyle Bull Other [facility] Other 05-19-2022 influenza virus vaccine, unspecified formulation [facility] 05-19-2022 Influenza, High-dose Seasonal, Quadrivalent, Preservative Free Shivam Ponce MD Work Phone: [facility] 05-19-2022 Influenza, Seasonal, Quadrivalent, Adjuvanted Kulwinder Morenita DO Work Phone: [facility] 02-06-2022 COVID-19 Vaccine Pfizer - Documentation Purposes Only Kyle Bull Other [facility] 06-10-2021 COVID-19 mRNA, Comirnaty (Pfizer) DO Kyle Gottlieb Work Phone: [facility] 05-17-2021 influenza virus vaccine, split virus (incl. purified surface antigen) Kyle Bull Other [facility] [employer] Other 05-17-2021 influenza virus vaccine, unspecified formulation [facility] 11-22-2020 Moderna SARS-CoV-2 Vaccination Shivam Ponce MD Work Phone: [facility] 10-25-2020 COVID-19 mRNA, Comirnaty (Pfizer) DO Kyle Gottlieb Work Phone: [facility] 10-15-2020 Moderna SARS-CoV-2 Vaccination Shivam Ponce MD Work Phone: [facility] 10-04-2020 COVID-19 mRNA, Comirnaty (Pfizer) DO Kyle Gottlieb Work Phone: [facility] 10-04-2020 COVID-19 Vaccine Moderna - Documentation Purposes Only Kyle Bull Other [facility] 06-11-2020 influenza, seasonal, injectable Kulwinder Morenita DO Work Phone: [facility] 05-16-2020 influenza virus vaccine, split virus (incl. purified surface antigen) Kyle Gottlieb Other [facility] [employer] Other 05-16-2020 influenza virus vaccine, unspecified formulation [facility] 06-02-2019 influenza virus vaccine, split virus (incl. purified surface antigen) Kyle Gottlieb Other [facility] [employer] Other 06-02-2019 influenza virus vaccine, unspecified formulation [facility] 05-25-2018 influenza virus vaccine, split virus (incl. purified surface antigen) Kyle Gottlieb Other [facility] [employer] Other 05-25-2018 influenza virus vaccine, unspecified formulation [facility] 05-25-2018 Seasonal trivalent influenza vaccine, adjuvanted, preservative free Kulwinder Deraser DO Work Phone: [facility] 05-25-2017 influenza virus vaccine, split virus (incl. purified surface antigen) Kyle Gottlieb Other [facility] Other 05-25-2017 influenza virus vaccine, unspecified formulation [facility] 05-25-2017 influenza, high dose seasonal, preservative-free Kulwinder Deraser DO Work Phone: [facility] 06-11-2016 influenza virus vaccine, split virus (incl. purified surface antigen) Kyle Gottlieb Other [facility] [employer] Other 06-11-2016 influenza virus vaccine, unspecified formulation [facility] 06-11-2016 influenza, high dose seasonal, preservative-free Kulwinder Morenita DO Work Phone: [facility] 06-13-2015 influenza virus vaccine, split virus (incl. purified surface antigen) Kyle Gottlieb Other [facility] [employer] Other 06-13-2015 influenza virus vaccine, unspecified formulation [facility] 06-13-2015 pneumococcal conjuga te vaccine, 13 valent Kyle Gottlieb Other [facility] 06-13-2015 pneumococcal Conjugate, unspecified formulation; Translations: [Need for prophylactic vaccination against Streptococcus pneumoniae (pneumococcus)] Kyle Gottlieb Other [facility] [employer] Other 06-07-2013 tetanus and diphther ia toxoids, adsorbed, preservative free, for adult use (5 Lf of tetanus toxoid and 2 Lf of diphtheria toxoid) Kyle Gottlieb Other [facility] 06-13-2009 pneumococcal polysaccharide vaccine, 23 valent Kyle Gottlieb Other [facility] NEGATED: Highlighted row has not occurred!05-16-2020 influenza virus vaccine, split virus (incl. purified surface antigen) Kyle Gottlieb Other [facility] [employer] Other Payers Date Payer Category Payer Private Health Insurance [id number] 1996 Medicare [id number] 1959 Medicare [id number] 2.1 [id number] 1959 Private Health Insurance [id number] 1942 Unknown [id number] 2.16.84 [id number] 1942 Unknown [id number] 2.16.84 [id number] 1942 Unknown [id number] 2.16.84 0.1.247182.3.579.2.593 1942 Unknown [id number] 2.16.84 0.1.517306.3.579.2.593 1942 Unknown [id number] 2.16.84 0.1.988581.3.579.2.593 1942 Unknown [id number] 2.16.84 0.1.770171.3.579.2.593 1942 Unknown [id number] 2.16.84 0.1.589153.3.579.2.1259 1942 Unknown [id number] 2.16.84 0.1.314743.3.579.2.1259 1942 Unknown [id number] 2.16.84 0.1.887066.3.579.2.1259 1942 Unknown [id number] 2.16.84 0.1.825913.3.579.2.1259 1942 Unknown [id number] 2.16.84 0.1.956379.3.579.2.1259 1942 Unknown [id number] 2.16.84 0.1.389455.3.579.2.1259 1942 Unknown [id number] 2.16.84 0.1.040685.3.579.2.1259 1942 Unknown [id number] 2.16.84 [id number] Self-pay Self Pay [id number] Social History Date Type Detail Facility Unknown if ever smoked [facility] Other Start: 04-28-2023 End: 05-03-2024 Sex Assigned At [facility] Other Start: 11-28-2021 End: 09-17-2023 Tobacco smoking status INIS Ex-smoker (finding) [facility] Start: 1940 Sex Assigned At Female [facility] Start: [facility]16[facility]2023 [facility] Start: 02-16-2023 Tobacco use and exposure Smokeless tobacco non-user [facility] Start: 08-10-2023 End: 05-03-2024 Alcohol intake Lifetime non-drinker (finding) [facility] Start: 04-28-2023 End: 05-03-2024 History of Social function [facility] How often to you hav e a drink containing alcohol? Never [facility] How many standard drinks containing alcohol do you have on a typical day? Patient does not drink [facility] Start: 08-10-2023 Alcohol Comment caffeine intak e: 1-2 cups per day; pop [facility] Start: 1940 Sex Assigned At Not on file [facility] Start: 07-20-2024 End: 07-22-2024 Sex Female (finding) [facility] Clinical Notes 11-14-2021 to 08-18-2024 Cami Desir, RT. R - 08/18/2024 11:40 AM RT. Sonam R - 07/07/2024 11:20 AM EDTTelephone Encounter - Trixie Koenig - 06/02/2024 8:52 AM EDTRoxane Wallis MA - 06/01/2024 11:20 AM EDT Note Date & Type Note Facility 08-18-2024 History of Presen t illness Narrative Images from the original note were not included. CHIEF COMPLAINT REASON FOR VISIT : Injections HPI: Gina Pierre is a 84 y.o. female who presents for bilateral brachial and bilateral bursa injections. States she is back to work 4 hours a day, as she has been off for 3 months. She is feeling pretty good. CURRENT MEDICATIONS: ALLERGIES/DISCONTINUE MEDICATIONS Current Outpatient Medications Medication Instructions benazepril (Lotensin) 5 MG tablet Orally Calcium Carbonate-Vit D-Min (Calcium 600+D Plus Minerals) 600-400 MG-UNIT chewable tablet Every 12 hours cetirizine (ZyrTEC) 10 MG tablet Every 24 hours dexAMETHasone (DECADRON) 2 mg, Oral, 2 times daily with meals dexAMETHasone (DECADRON) 2 mg, Oral, 2 times daily with meals docusate sodium (Colace) 100 MG capsule Every 24 hours estradiol (Estrace) 0.1 MG/GM vaginal cream Use 0.5 g vaginally once weekly. fenofibrate (Triglide) 160 MG tablet fenofibrate micronized (Lofibra) 134 MG capsule take 1 capsule (134MG) by ORAL route every day with food Oral folic acid (Folvite) 1 MG tablet TAKE 1 TABLET BY MOUTH EVERY DAY FOR 30 DAYS gabapentin (Neurontin) 300 MG capsule 1 tablet Oral Q HS hydrocortisone (Anusol-HC) 25 MG suppository UNWRAP AND INSERT 1 SUPPOSITORY RECTALLY EVERYDAY AT BEDTIME ipratropium (Atrovent) 0.06 % nasal spray 2 sprays, Each Nostril, 3 times daily OXcarbazepine (Trileptal) 300 MG tablet take 1 tablet (300MG) by ORAL route every day Oral pantoprazole (Protonix) 40 MG EC tablet Every 24 hours Proctozone-HC 2.5 % rectal cream tiZANidine (Zanaflex) 4 MG capsule take 1 tablet (4MG) by ORAL route every bedtime Oral valACYclovir (Valtrex) 500 MG tablet TAKE 1 TABLET BY MOUTH THREE TIMES A DAY DIRECTED Allergies Allergen Reactions Amoxicillin Other Reaction(s): Rash Bactrim [Sulfamethoxazole-Trimethoprim] Clarithromycin Other Reaction(s): Rash Corticosteroids Unknown Other Reaction(s): Unknown Reaction Levofloxacin Other Reaction(s): Rash Macrolides And Ketolides Unknown Naproxen Unknown Sulfa Antibiotics Other Reaction(s): Unknown Reaction Sulfamethoxazole Unknown Trimethoprim Unknown There are no discontinued medications. PAST MEDICAL HISTORY: SURGICAL/SOCIAL/FAMILY HISTORY DEPRESSION SCREEN: Past Medical History: Diagnosis Date Cataracts, bilateral 2009 GERD (gastroesophageal reflux disease) Hiatal hernia HLD (hyperlipidemia) ([facility]) Hx of migraine headaches IBS (irritable bowel syndrome) Multiple sclerosis ([facility]) 1993 Past Surgical History: Procedure Laterality Date APPENDECTOMY CATARACT EXTRACTION, BILATERAL COLONOSCOPY EGD 2013 TOTAL ABDOMINAL HYSTERECTOMY W/ BILATERAL SALPINGOOPHORECTOMY 1985 VAGINAL DELIVERY Social History Tobacco Use Smoking status: Never Smokeless tobacco: Never Substance Use Topics Alcohol use: Never Comment: caffeine intake: 1-2 cups per day; pop Drug use: Never Family History Problem Relation Name Age of Onset Colon cancer Mother Heart disease Mother Heart disease Brother Rectal cancer Brother Coronary artery disease Brother Other (bladder cancer) Maternal Grandmother Stroke Paternal Grandfather Colon cancer Other 4 uncles Colon cancer Father's Sister Depression: Not at risk (05/03/2024) PHQ-2 PHQ-2 Score: 0 REVIEW OF SYMPTOMS: Review of Systems OBJECTIVE: 08/18/2024 5:29 PM 07/07/2024 11:33 AM 06/01/2024 11:33 AM Vitals BMI 24.33 kg/m2 25.02 kg/m2 23.94 kg/m2 BSA (m2) 1.64 m2 1.67 m2 1.63 m2 Systolic 112 102 122 Diastolic 72 70 74 Heart Rate 66 Height (in) 5' 2.5 Weight (lb) 135.2 139 133 EXAM: Neurological Exam PROCEDURE: Brachial Plexus injection After explaining the risks, complications, and benefits of the procedure, the patient was seated in the chair. Allergies were reviewed, the consent was signed. The bilateral region posterior to the clavicle is identified and the most tender area is marked for injection then cleaned using sterile technique, and surface anesthetic; a 25 gauge 1 1/2 spinal needle was advanced and the patient received 1 cc of Bupivacaine 0.50% and 1 cc Dexamethasone 4mg. The needle was removed. The patient tolerated the procedure well and without complications. A Band-Aid dressing was applied on the injection site. Ultrasound images were placed in the media folder. Bursa Injection After explaining the risks, complications, and benefits of the procedure, the patient leaned over the exam table. Allergies were reviewed, the consent was signed. After palpating the bilateralgreater trochanter and identifying the most tender area in the bursa, using sterile technique, and surface anesthetic; a 25 gauge 1 1/2 spinal needle was advanced to make contact with the greater trochanter. The needle was then withdrawn about 1 mm. The patient received an injection of 3 cc of Bupivacaine 0.50% and1 cc Dexamethasone 4mg in a fan-like distribution. The needle was removed. A Band-Aid dressing was applied on the injection site.Ultrasound images were placed in the media folder. ASSESSMENT AND PLAN: documented in this encounter [facility] 07-07-2024 History of Presen t illness Narrative Images from the original note were not included. CHIEF COMPLAINT REASON FOR VISIT : Injections HPI: Gina Pierre is a 84 y.o. female who presents for Lt side of her neck and radiates down, Rt. Leg pain that radiates down her leg. She states her pain is 9/10, states she feels since the concussion it has her MS flared up. Hasn't had any issues with her MS since 2013. CURRENT MEDICATIONS: ALLERGIES/DISCONTINUE MEDICATIONS Current Outpatient Medications Medication Instructions benazepril (Lotensin) 5 MG tablet Orally Calcium Carbonate-Vit D-Min (Calcium 600+D Plus Minerals) 600-400 MG-UNIT chewable tablet Every 12 hours cetirizine (ZyrTEC) 10 MG tablet Every 24 hours dexAMETHasone (DECADRON) 2 mg, Oral, 2 times daily with meals dexAMETHasone (DECADRON) 2 mg, Oral, 2 times daily with meals docusate sodium (Colace) 100 MG capsule Every 24 hours estradiol (Estrace) 0.1 MG/GM vaginal cream Use 0.5 g vaginally once weekly. fenofibrate (Triglide) 160 MG tablet fenofibrate micronized (Lofibra) 134 MG capsule take 1 capsule (134MG) by ORAL route every day with food Oral folic acid (Folvite) 1 MG tablet TAKE 1 TABLET BY MOUTH EVERY DAY FOR 30 DAYS gabapentin (Neurontin) 300 MG capsule 1 tablet Oral Q HS hydrocortisone (Anusol-HC) 25 MG suppository UNWRAP AND INSERT 1 SUPPOSITORY RECTALLY EVERYDAY AT BEDTIME ipratropium (Atrovent) 0.06 % nasal spray 2 sprays, Each Nostril, 3 times daily OXcarbazepine (Trileptal) 300 MG tablet take 1 tablet (300MG) by ORAL route every day Oral pantoprazole (Protonix) 40 MG EC tablet Every 24 hours Proctozone-HC 2.5 % rectal cream tiZANidine (Zanaflex) 4 MG capsule take 1 tablet (4MG) by ORAL route every bedtime Oral valACYclovir (Valtrex) 500 MG tablet TAKE 1 TABLET BY MOUTH THREE TIMES A DAY DIRECTED Allergies Allergen Reactions Amoxicillin Other Reaction(s): Rash Bactrim [Sulfamethoxazole-Trimethoprim] Clarithromycin Other Reaction(s): Rash Corticosteroids Unknown Other Reaction(s): Unknown Reaction Levofloxacin Other Reaction(s): Rash Macrolides And Ketolides Unknown Naproxen Unknown Sulfa Antibiotics Other Reaction(s): Unknown Reaction Sulfamethoxazole Unknown Trimethoprim Unknown There are no discontinued medications. PAST MEDICAL HISTORY: SURGICAL/SOCIAL/FAMILY HISTORY DEPRESSION SCREEN: Past Medical History: Diagnosis Date Cataracts, bilateral 2009 GERD (gastroesophageal reflux disease) Hiatal hernia HLD (hyperlipidemia) ([facility]) Hx of migraine headaches IBS (irritable bowel syndrome) Multiple sclerosis ([facility]) 1993 Past Surgical History: Procedure Laterality Date APPENDECTOMY CATARACT EXTRACTION, BILATERAL COLONOSCOPY EGD 2013 TOTAL ABDOMINAL HYSTERECTOMY W/ BILATERAL SALPINGOOPHORECTOMY 1985 VAGINAL DELIVERY Social History Tobacco Use Smoking status: Never Smokeless tobacco: Never Substance Use Topics Alcohol use: Never Comment: caffeine intake: 1-2 cups per day; pop Drug use: Never Family History Problem Relation Name Age of Onset Colon cancer Mother Heart disease Mother Heart disease Brother Rectal cancer Brother Coronary artery disease Brother Other (bladder cancer) Maternal Grandmother Stroke Paternal Grandfather Colon cancer Other 4 uncles Colon cancer Father's Sister Depression: Not at risk (05/03/2024) PHQ-2 PHQ-2 Score: 0 REVIEW OF SYMPTOMS: Review of Systems Musculoskeletal: Positive for arthralgias, back pain, gait problem, myalgias, neck pain and neck stiffness. OBJECTIVE: 07/07/2024 11:33 AM 06/01/2024 11:33 AM 05/03/2024 11:14 AM Vitals BMI 25.02 kg/m2 23.94 kg/m2 23.76 kg/m2 BSA (m2) 1.67 m2 1.63 m2 1.63 m2 Systolic 102 122 126 Diastolic 70 74 68 Heart Rate 66 Height (in) 5' 2.5 5' 2.5 Weight (lb) 139 133 132 Visit Report Report EXAM: Neurological Exam PROCEDURE: Brachial Plexus injection After explaining the risks, complications, and benefits of the procedure, the patient was seated in the chair. Allergies were reviewed, the consent was signed. The bilateral region posterior to the clavicle is identified and the most tender area is marked for injection then cleaned using sterile technique, and surface anesthetic; a 25 gauge 1 1/2 spinal needle was advanced and the patient received 1 cc of Bupivacaine 0.50% and 1 cc Dexamethasone 4mg. The needle was removed. The patient tolerated the procedure well and without complications. A Band-Aid dressing was applied on the injection site. Ultrasound images were placed in the media folder. Bursa Injection After explaining the risks, complications, and benefits of the procedure, the patient leaned over the exam table. Allergies were reviewed, the consent was signed. After palpating the bilateralgreater trochanter and identifying the most tender area in the bursa, using sterile technique, and surface anesthetic; a 25 gauge 1 1/2 spinal needle was advanced to make contact with the greater trochanter. The needle was then withdrawn about 1 mm. The patient received an injection of 3 cc of Bupivacaine 0.50% and1 cc Dexamethasone 4mg in a fan-like distribution. The needle was removed. A Band-Aid dressing was applied on the injection site.Ultrasound images were placed in the media folder. ASSESSMENT AND PLAN: 1. Other nerve root and plexus disorders - bupivacaine (Marcaine) 0.5 % injection 5 mg - dexAMETHasone sod phos (Decadron) injection 4 mg I will bring her back in 4-6 weeks and see if she has received 50% or more pain relief and if so I can repeat the injections a this time. 2. Trochanteric bursitis of both hips (Primary) - bupivacaine (Marcaine) 0.5 % injection 5 mg - dexAMETHasone sod phos (Decadron) injection 4 mg I will bring her back in 4-6 weeks and see if she has received 50% or more pain relief and if so I can repeat the injections a this time. documented in this encounter [facility] 06-02-2024 Telephone encount er Note Pt requested a refill of the decadron tablets be sent to [id number] in [place] [facility] 06-02-2024 Miscellaneous Notes Formattin g of this note might be different from the original. Pt requested a refill of the decadron tablets be sent to [id number] in [place] documented in this encounter [facility] 06-01-2024 History of Presen t illness Narrative Images from the original note were not included. CHIEF COMPLAINT REASON FOR VISIT: injections/MS HPI: Gina Pierre is a 83 y.o. female who presents for bilateral bursa and bilateral brachial injections. Pain level is a 7/10. She states she had the flu, fell and hit her head on the TV stand and got a concussion on May 13. She was in [employer] [employer]. She states it flared up her MS. She states she injured her shoulder and her neck. She states she is having a lot of MS symptoms right now. She states she has been having trouble with speech. She is struggling with finding the words. She feels off and off with balance. She states she has no energy. She has had increased numbnness and tingling in her hands, feet, and legs. She feels like it there is something going on in her head like something is not quite right. She has been off work since May 11. She states when she has the flares her vision does get affected and becomes slight blurry but it is not all the time. Denies any headaches. She states she has had mostly pain on the left side of her neck. She states the left side of her head was swollen for a week after she fell. She states she did not lose consciousness. She states she knew what was happening but she could not stop it. Denies any other concerns. CURRENT MEDICATIONS: ALLERGIES/DISCONTINUE MEDICATIONS Current Outpatient Medications Medication Instructions benazepril (Lotensin) 5 MG tablet Orally Calcium Carbonate-Vit D-Min (Calcium 600+D Plus Minerals) 600-400 MG-UNIT chewable tablet Every 12 hours cetirizine (ZyrTEC) 10 MG tablet Every 24 hours dexAMETHasone (DECADRON) 2 mg, Oral, 2 times daily with meals docusate sodium (Colace) 100 MG capsule Every 24 hours estradiol (Estrace) 0.1 MG/GM vaginal cream Use 0.5 g vaginally once weekly. fenofibrate (Triglide) 160 MG tablet fenofibrate micronized (Lofibra) 134 MG capsule take 1 capsule (134MG) by ORAL route every day with food Oral folic acid (Folvite) 1 MG tablet TAKE 1 TABLET BY MOUTH EVERY DAY FOR 30 DAYS gabapentin (Neurontin) 300 MG capsule 1 tablet Oral Q HS hydrocortisone (Anusol-HC) 25 MG suppository UNWRAP AND INSERT 1 SUPPOSITORY RECTALLY EVERYDAY AT BEDTIME ipratropium (Atrovent) 0.06 % nasal spray 2 sprays, Each Nostril, 3 times daily OXcarbazepine (Trileptal) 300 MG tablet take 1 tablet (300MG) by ORAL route every day Oral pantoprazole (Protonix) 40 MG EC tablet Every 24 hours Proctozone-HC 2.5 % rectal cream tiZANidine (Zanaflex) 4 MG capsule take 1 tablet (4MG) by ORAL route every bedtime Oral valACYclovir (Valtrex) 500 MG tablet TAKE 1 TABLET BY MOUTH THREE TIMES A DAY DIRECTED Allergies Allergen Reactions Amoxicillin Other Reaction(s): Rash Bactrim [Sulfamethoxazole-Trimethoprim] Clarithromycin Other Reaction(s): Rash Corticosteroids Unknown Other Reaction(s): Unknown Reaction Levofloxacin Other Reaction(s): Rash Macrolides And Ketolides Unknown Naproxen Unknown Sulfa Antibiotics Other Reaction(s): Unknown Reaction Sulfamethoxazole Unknown Trimethoprim Unknown There are no discontinued medications. PAST MEDICAL HISTORY: SURGICAL/SOCIAL/FAMILY HISTORY DEPRESSION SCREEN: Past Medical History: Diagnosis Date Cataracts, bilateral 2009 GERD (gastroesophageal reflux disease) Hiatal hernia HLD (hyperlipidemia) ([facility]) Hx of migraine headaches IBS (irritable bowel syndrome) Multiple sclerosis ([facility]) 1993 Past Surgical History: Procedure Laterality Date APPENDECTOMY CATARACT EXTRACTION, BILATERAL COLONOSCOPY EGD 2013 TOTAL ABDOMINAL HYSTERECTOMY W/ BILATERAL SALPINGOOPHORECTOMY 1985 VAGINAL DELIVERY Social History Tobacco Use Smoking status: Never Smokeless tobacco: Never Substance Use Topics Alcohol use: Never Comment: caffeine intake: 1-2 cups per day; pop Drug use: Never Family History Problem Relation Name Age of Onset Colon cancer Mother Heart disease Mother Heart disease Brother Rectal cancer Brother Coronary artery disease Brother Other (bladder cancer) Maternal Grandmother Stroke Paternal Grandfather Colon cancer Other 4 uncles Colon cancer Father's Sister Depression: Not at risk (05/03/2024) PHQ-2 PHQ-2 Score: 0 REVIEW OF SYMPTOMS: Review of Systems Constitutional: Positive for fatigue. Negative for chills, diaphoresis and fever. HENT: Negative for ear pain, tinnitus and trouble swallowing. Eyes: Negative for photophobia and visual disturbance. Respiratory: Negative for cough and shortness of breath. Cardiovascular: Negative for palpitations and leg swelling. Gastrointestinal: Negative for abdominal pain and nausea. Genitourinary: Negative for difficulty urinating and urgency. Musculoskeletal: Positive for back pain, gait problem and neck pain. Negative for arthralgias, myalgias and neck stiffness. Neurological: Positive for weakness and numbness. Negative for tremors and light-headedness. Psychiatric/Behavioral: Negative for agitation, confusion and suicidal ideas. OBJECTIVE: 06/01/2024 11:33 AM 05/03/2024 11:14 AM 03/30/2024 11:27 AM Vitals BMI 23.94 kg/m2 23.76 kg/m2 21.8 kg/m2 BSA (m2) 1.63 m2 1.63 m2 1.67 m2 Systolic 122 126 126 Diastolic 74 68 78 Height (in) 5' 2.5 5' 2.5 5' 5.5 Weight (lb) 133 132 133 Visit Report Report EXAM: Neurological Exam Mental Status Awake, alert and [...] reflexes: Erica's absent. Ankle clonus absent. Coordination [id number], rapid alternating movements and [id number] normal bilaterally without dysmetria. Gait Normal casual, toe, heel and tandem gait. Romberg is absent. PROCEDURE: Brachial Plexus injection After explaining the risks, complications, and benefits of the procedure, the patient was seated in the chair. Allergies were reviewed, the consent was signed. The bilateral region posterior to the clavicle is identified and the most tender area is marked for injection then cleaned using sterile technique, and surface anesthetic; a 25 gauge 1 1/2 spinal needle was advanced and the patient received 1 cc of Bupivacaine 0.50% and 1 cc Dexamethasone 4mg. The needle was removed. The patient tolerated the procedure well and without complications. A Band-Aid dressing was applied on the injection site. Ultrasound images were placed in the media folder. Bursa Injection After explaining the risks, complications, and benefits of the procedure, the patient leaned over the exam table. Allergies were reviewed, the consent was signed. After palpating the bilateralgreater trochanter and identifying the most tender area in the bursa, using sterile technique, and surface anesthetic; a 25 gauge 1 1/2 spinal needle was advanced to make contact with the greater trochanter. The needle was then withdrawn about 1 mm. The patient received an injection of 3 cc of Bupivacaine 0.50% and1 cc Dexamethasone 4mg in a fan-like distribution. The needle was removed. A Band-Aid dressing was applied on the injection site.Ultrasound images were placed in the media folder. ASSESSMENT AND PLAN: CT head/brain wo con (05/20/2024) HISTORY: CONCUSSION S06.0XAA, head injury one week ago. COMPARISON: CT brain 12/19/2018. TECHNIQUE: Axial CT scans through the head were obtained without IV contrast administration. Dose reduction techniques were achieved by using: automated exposure control and/or adjustment of mA and /or kV according to patient size and/or use of iterative reconstruction technique. FINDINGS: There is no evidence of acute intracranial hemorrhage or abnormal extra-axial fluid collection. No mass effect or midline shift is seen. There is no evidence of large acute territorial infarction. There is no hydrocephalus. There is age appropriate mild cerebral atrophy. To the limit of CT, the posterior fossa appears unremarkable. No definite acute fracture is identified. Soft tissues are unremarkable. The visualized orbits show no abnormality. The visualized paranasal sinuses show no air-fluid level. Mastoid air cells are clear. IMPRESSION: No CT evidence of acute intracranial abnormality .1. Trochanteric bursitis of both hips - bupivacaine (Marcaine) 0.5 % injection 5 mg - dexAMETHasone sod phos (Decadron) injection 4 mg 2. Other nerve root and plexus disorders - bupivacaine (Marcaine) 0.5 % injection 5 mg - dexAMETHasone sod phos (Decadron) injection 4 mg Total time 20 minutes spent reviewing records, performing medically appropriate exam, counseling , education, ordering medication, tests, and/or procedures, documenting health information into the health record, communicating results to the patient, and coordinating care. I will bring her back in 4-6 weeks to see if she has received 50% or greater pain relief and at that time I will repeat the injections if needed. documented in this encounter [facility] 05-11-2024 Evaluation note Diagnosis Onset Date Resolution Acute bronchitis due to other specified organisms acute May 11 12:34pm Acute exacerbation of chronic obstructive airways disease May 11 12:34pm Concussion acute May 10:46am Contusion of left shoulder acute May 17, 2024 10:46am Primary hypertension acute May 10:46am Stage 3a chronic kidney disease acute May 17, 2024 10:46am Concussion acute May 11:38am Contusion of left shoulder acute May 27, 2024 11:38am Primary hypertension acute May 11:38am Stage 3a chronic kidney disease acute May 27, 2024 11:38am Fatigue acute June 14 11:05am Medicare annual wellness visit, subsequent acute June 14 11:05am Primary hypertension acute 2023 11:05am Screening mammogram for breast cancer acute June 14 11:05am Stage 3a chronic kidney disease acute June 14 11:05am Concussion acute July 20, 2024 10:58am Contusion of left shoulder July 20 10:58am Fatigue acute July 20, 2024 10:58am Primary hypertension acute 2023 10:58am Stage 3a chronic kidney disease acute July 20 10:58am [facility] Work Phone: 1(695) 534-866109-04-2024 Evaluation note* Diagnosis Onset Date Resolution Status Admit Date Acute bronchitis due to othe r specified organisms acute May 12:34pm Acute exacerbation of chroni c obstructive airways disease acute May 12:34pm Concussion acute May 10:46am Contusion of left shoulder acute May 17, 2024 10:46am Primary hypertension acute May 10:46am Stage 3a chronic kidney disease acute May 17, 2024 10:46am Concussion acute May 11:38am Contusion of left shoulder acute May 27, 2024 11:38am Primary hypertension acute May 11:38am Stage 3a chronic kidney disease acute May 27, 2024 11:38am Fatigue acute June 14 11:05am Medicare annual wellness visit, subsequent acute June 14 11:05am Primary hypertension acute 2023 11:05am Screening mammogram for [facility] cancer acute June 14 11:05am Stage 3a chronic kidney disease acute June 14 11:05am Concussion acute July 20, 2024 10:58am Dizzy spells acute July 10:58am Fatigue acute July 20, 2024 10:58am Primary hypertension acute 2023 10:58am Stage 3a chronic kidney disease acute July 20 10:58am [facility] Work Phone: 1(343) 893-675608-27-2024 History of Present illness Narrative* Yesica Villagomez MA - 05/03/2024 11:15 AM EDT Images from the original note were not included. Kulwinder Dao, DO Obstetrics and Gynecology Gina Pierre 1940 05/03/24 [id number] Yearly Wellness Exam Chief Complaint Patient presents with Gynecologic Exam Medicare off year. LMP: SHANTA BSO 1984 HRT: Premarin cream - satisfied, but would like to discuss how long to be on it Last pap 04-28-23 neg. Last mammogram 05-13-23 [facility] [place]. Denies breast, urinary, or bowel concerns. Visit Vitals BP 126/68 Ht 5' 2.5 Wt 132 lb BMI 23.76 kg/m OB Status Hysterectomy Smoking Status Never BSA 1.63 m OB History Para Term AB Living 1 1 1 1 SAB IAB Ectopic Multiple Live Births 1 # Outcome Date GA Lbr Chema/2nd Weight Sex Type Anes PTL Lv 1 3 lb 10.5 oz Vag-Spont MAL Comments: 6.5 months Current Outpatient Medications Medication Sig Dispense Refill hydrocortisone (Anusol-HC) 25 MG suppository UNWRAP AND INSERT 1 SUPPOSITORY RECTALLY EVERYDAY AT BEDTIME Proctozone-HC 2.5 % rectal cream benazepril (Lotensin) 5 MG tablet Orally Calcium Carbonate-Vit D-Min (Calcium 600+D Plus Minerals) 600-400 MG-UNIT chewable tablet every 12 (twelve) hours. cetirizine (ZyrTEC) 10 MG tablet 1 (one) time each day at the same time. dexAMETHasone (Decadron) 2 MG tablet Take 1 tablet (2 mg) by mouth in the morning and 1 tablet (2 mg) in the evening. Take with meals. Do all this for 10 days. 20 tablet 0 docusate sodium (Colace) 100 MG capsule 1 (one) time each day at the same time. estradiol (Estrace) 0.1 MG/GM vaginal cream Use 0.5 g vaginally once weekly. 42.5 g 0 fenofibrate (Triglide) 160 MG tablet fenofibrate micronized (Lofibra) 134 MG capsule take 1 capsule (134MG) by ORAL route every day withfood Oral folic acid (Folvite) 1 MG tablet TAKE 1 TABLET BY MOUTH EVERY DAY FOR 30 DAYS gabapentin (Neurontin) 300 MG capsule 1 tablet Oral Q HS ipratropium (Atrovent) 0.06 % nasal spray Administer 2 sprays into each nostril in the morning and 2 sprays in the evening and 2 sprays before bedtime. 15 mL 11 OXcarbazepine (Trileptal) 300 MG tablet take 1 tablet (300MG) by ORAL route every day Oral pantoprazole (Protonix) 40 MG EC tablet 1 (one) time each day at the same time. tiZANidine (Zanaflex) 4 MG capsule take 1 tablet (4MG) by ORAL route every bedtime Oral valACYclovir (Valtrex) 500 MG tablet TAKE 1 TABLET BY MOUTH THREE TIMES A DAY DIRECTED No current facility-administered medications for this visit. Allergies Allergen Reactions Amoxicillin Other Reaction(s): Rash Bactrim [Sulfamethoxazole-Trimethoprim] Clarithromycin Other Reaction(s): Rash Corticosteroids Unknown Levofloxacin Other Reaction(s): Rash Macrolides And Ketolides Unknown Naproxen Unknown Sulfamethoxazole Unknown Trimethoprim Unknown Past Surgical History: Procedure Laterality Date APPENDECTOMY CATARACT EXTRACTION, BILATERAL COLONOSCOPY EGD 2013 TOTAL ABDOMINAL HYSTERECTOMY W/ BILATERAL SALPINGOOPHORECTOMY 1985 VAGINAL DELIVERY Past Medical History: Diagnosis Date Cataracts, bilateral 2009 GERD (gastroesophageal reflux disease) Hiatal hernia HLD (hyperlipidemia) ([facility]) Hx of migraine headaches IBS (irritable bowel syndrome) Multiple sclerosis ([facility]) 1993 ROS Const: Denies appetite change, fever, chills. Allergy: Denies medication reaction. Ocular: Denies visual acuity change. ENT: Denies hearing change. Endoc: Denies weight loss. Resp: Denies dyspnoea, wheezing. Cardiac: Denies angina, palpitations. GI: Denies nausea, vomiting. Haem: Denies bleeding. : Denies incontinence. MSK: Denies arthralgias, joint oedema. Derm: Denies rash, hair loss. Neuro: Denies ataxia, tremor. Also see HPI for elements of ROS documented therein and for details of positive findings, which shall supersede the foregoing. EXAM GENERAL EXAMINATION alert oriented well developed, well nourished. HEAD: normocephalic atraumatic. EYES: sclera anicteric. EARS: no obvious hearing deficit. NECK/THYROID: neck supple no cervical lymphadenopathy no thyromegaly. LYMPH NODES: no axillary, supraclavicular or inguinal adenopathy. SKIN: warm and dry. HEART: regular rate and rhythm. LUNGS: clear to auscultation bilaterally. CHEST:axillary nodes grossly normal. BREASTS:no masses palpable bilaterally, normal nipples bilaterally - everted - fatty replaced - dense - well supported- axilla negative. ABDOMEN: soft, nontender, nondistended, no masses palpable. BACK: no costovertebral angle tenderness, no obvious scoliosis/kyphosis. FEMALE GENITOURINARY:supervising deputy in room - good hormone - normal vaginal mucousa - cuff well supported - no studding or induration - side soto - adnex negative - stenotic introitius/vault RECTAL:normal tone , no masses palpable , only small external hemorrhoids. EXTREMITIES no edema. NEUROLOGIC: alert and oriented. PSYCH: cooperative with exam. ICD-10-CM 1. 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 Findings of today's exam discussed with the patient. Continue MSBE. Ca/Vit D recommendations reviewed with the patient. The patient is to contact the office with anychanges to her gynecological condition or any changes with breast or bleeding. The patient is to return in 1 year or as needed 2. Breast cancer screening by mammogram Z12.31 Bilateral screening mammogram with tomosynthesis Screening mammogram ordered. Patient to call and schedule. 3. Hormone replacement therapy Z79.890 estradiol (Estrace) 0.1 MG/GM vaginal cream Advised to switch to Estradiol cream from Premarin cream due to cost of medications. Could maintainhormone using once weekly. 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 Entered by Yesica Villagomez MA acting as scribe for Dr. Kulwinder Dao. Signature Yesica Villagomez MA Date 05/03/24 . Time 11:46 AM . The documentation recorded by the scribe accurately reflectsthe service(s) I personally performed and the decisions I made. Signature Jan Dao D.O. Date 05/03/24 Time 5:00PM. documented in this encounterJohn J. Pershing VA Medical [id number] Evaluation note* Diagnosis Onset Date Resolution Status Gastroesophageal reflux dise ase with esophagitis without hemorrhage acute Lumbar spondylosis acute PA (pernicious anemia) acute Primary hypertension acute Stage 3a chronic kidney disease acute Venous insufficiency (chronic) (peripheral) acute Acute sinusitis noneactive [facility] Work Phone: 1([phone]) [phone] Evaluation note* Diagnosis Onset Date Resolution Status Gastroesophageal reflux dise ase with esophagitis without hemorrhage acute Lumbar spondylosis acute PA (pernicious anemia) acute Primary hypertension acute Stage 3a chronic kidney disease acute Venous insufficiency (chronic) (peripheral) acute Acute sinusitis noneactive [facility] Work Phone: [phone]) 238-691202-07-2024 History of Present illness Narrative* Shivam Ponce MD - 10/14/2023 11:20 AM EST Subjective Gina A Ignacio is a 83 y.o. female. HPI Patient [...] (gastroesophageal reflux disease) Hiatal hernia HLD (hyperlipidemia) ([facility]) Hx of migraine headaches IBS (irritable bowel syndrome) Multiple sclerosis ([facility]) 1993 Past Surgical History: Procedure [...] reflexes: Erica's absent. Ankle clonus absent. Coordination [id number], rapid alternating movements and [id number]-jf-[id number] normal bilaterally without dysmetria. Gait Normal casual, [...] nerve dysfunction including polyneuropathy. documented in this encounterJohn J. Pershing VA Medical [id number] Evaluation note* Encounter Date Diagnosis Assessment Notes Treatment Notes Treatment Clinical Notes Sep, Acute non-recurrent maxillary sinusitis (ICD-10 - J01.00) Instructed to use Robitussin or Mucinex for cough, saline or Flonase NS for congestion, Tylenol for pain and fever. Sep, Multiple sclerosis (ICD-10 - G35) weakens her immune system placing her at risk for more seriou, prolonged illness [facility] Other 01-09-2024 Evaluation note* Encounter Date Diagnosis Assessment Notes Treatment Notes Treatment Clinical Notes Sep, Pernicious anemia (ICD-10 - D51.0) [facility] Other 12-22-2023 Evaluation note* Encounter Date Diagnosis Assessment Notes Treatment Notes Treatment Clinical Notes Aug, Flu-like symptoms (ICD-10 - R68.89) Aug, Acute non-recurrent maxillary sinusitis (ICD-10 - J01.00) [facility] Other 12-19-2023 Evaluation note* Encounter Date Diagnosis Assessment Notes Treatment Notes Treatment Clinical Notes Aug, Abdominal pain (ICD-10 - R10.9) Aug, Nausea & vomiting (ICD-10 - R11.2) Aug, GERD (gastroesophageal reflux disease) (ICD-10 - K21.9) Pt is doing well on the pantoprazole. Pt RTO YEARLY Aug, Early satiety (ICD-10 - R68.81) Aug, Loss of appetite (ICD-10 - R63.0) [facility] Other 12-07-2023 Evaluation note* Encounter Date Diagnosis Assessment Notes Treatment Notes Treatment Clinical Notes Aug, Pernicious anemia (ICD-10 - D51.0) [facility] Other 11-02-2023 Evaluation note* Encounter Date Diagnosis Assessment Notes Treatment Notes Treatment Clinical Notes Jul, Pernicious anemia (ICD-10 - D51.0) [facility] Other 10-02-2023 Evaluation note* Encounter Date Diagnosis Assessment Notes Treatment Notes Treatment Clinical Notes Jun, Pernicious anemia (ICD-10 - D51.0) [facility] Other 09-22-2023 Evaluation note* Encounter Date Diagnosis Assessment Notes Treatment Notes Treatment Clinical Notes May, Anemia, unspecified type (ICD-10 - D64.9) May, Fatigue, unspecified type (ICD-10 - R53.83) [facility] Other 09-20-2023 Evaluation note* Encounter Date Diagnosis [...] - R53.83) Check labs: CBC, B12, TSH [facility] Other 08-31-2023 Evaluation note* Encounter Date Diagnosis Assessment Notes Treatment Notes Treatment Clinical Notes Apr, Pernicious anemia (ICD-10 - D51.0) [facility] Other 07-31-2023 Evaluation note* Encounter Date Diagnosis Assessment Notes Treatment Notes Treatment Clinical Notes Mar, Pernicious anemia (ICD-10 - D51.0) [facility] Other 07-10-2023 Evaluation note* Encounter Date Diagnosis Assessment Notes Treatment Notes Treatment Clinical Notes Mar, Pernicious anemia (ICD-10 - D51.0) [facility] Other 07-07-2023 Evaluation note* Encounter Date Diagnosis Assessment Notes Treatment Notes Treatment Clinical Notes Mar, PA (pernicious anemia) (ICD-10 - D51.0) [facility] Other 07-05-2023 Evaluation note* Encounter Date Diagnosis Assessment Notes Treatment Notes Treatment Clinical Notes Mar, Acute pneumonia (ICD-10 - J18.9) Mar, Anemia, unspecified type (ICD-10 - D64.9) Mar, Stage 3a chronic kidney disease (ICD-10 - N18.31) [facility] Other 06-06-2023 Evaluation note* Encounter Date Diagnosis [...] FA supplement. Recheck FA/B12, CBC in month [facility] Other 05-30-2023 Evaluation note* Encounter Date Diagnosis Assessment Notes Treatment Notes Treatment Clinical Notes January, Acute pneumonia (ICD-10 - J18.9) January, Anemia, unspecified type (ICD-10 - D64.9) January, Stage 3a chronic kidney disease (ICD-10 - N18.31) [facility] Other 05-05-2023 Evaluation note* Encounter Date Diagnosis Assessment Notes Treatment Notes Treatment Clinical Notes January, Folic acid deficiency (ICD-10 - E53.8) [facility] Other 04-27-2023 Evaluation note* Encounter Date Diagnosis [...] and exerci se with continued statin therapy. [facility] Other 04-12-2023 Evaluation note* Encounter Date Diagnosis [...] Weight loss. Dec, Anasarca (ICD-10 - R60.1) [facility] Other 04-03-2023 Evaluation note* Encounter Date Diagnosis Assessment Notes Treatment Notes Treatment Clinical Notes Dec, Seasonal allergic rhinitis (ICD-10 - J30.2) [facility] Other 03-13-2023 Evaluation note* Encounter Date Diagnosis [...] Daily stretching exercises, exercise, avoid strenuous lifting. [facility] Other 12-28-2022 Evaluation note* Encounter Date Diagnosis Assessment Notes Treatment Notes Treatment Clinical Notes Aug, Diarrhea (ICD-10 - R19.7) [facility] Other 03-31-2022 Evaluation note* Encounter Date Diagnosis Assessment Notes Treatment Notes Treatment Clinical Notes Nov, Diarrhea (ICD-10 - R19.7) [facility] Other 03-10-2022 Evaluation note* Encounter Date Diagnosis [...] Nov, Loss of appetite (ICD-10 - R63.0) [facility] Other Evaluation noteNo InformationNortDocurated Other Evaluation noteNo assessment information available [facility] Work Phone: Evaluation noteNort Prote[employer] Other Evaluation note* Diagnosis Brachial plexus neuropathy- Primary Brachial plexus lesions Multiple sclerosis (CMS/HCC) Multiple sclerosis documented in this encounter [facility]* Diagnosis Onset Date Resolution Status Gastroesophageal reflux dise ase with esophagitis without hemorrhage acute Lumbar spondylosis acute PA (pernicious anemia) acute Primary hypertension acute Stage 3a chronic kidney disease acute Venous insufficiency (chronic) (peripheral) acute Acute sinusitis noneactive [facility] Work Phone: Evaluation note* Diagnosis Onset Date Resolution Status Foot pain, left acute Gastroesophageal reflux dise ase with esophagitis without hemorrhage acute Acute diverticulitis noneact bhargavi Nausea noneactive [facility] Work Phone: Evaluation note* Diagnosis Onset Date Resolution Status Foot pain, left acute Gastroesophageal reflux dise ase with esophagitis without hemorrhage acute Acute diverticulitis noneact bhargavi Nausea noneactive Acute bronchitis due to other specified organisms acute Acute exacerbation of chroni c obstructive airways disease acute [facility] Work Phone: Evaluation note* Diagnosis Onset Date Resolution Status Foot pain, left acute Gastroesophageal reflux dise ase with esophagitis without hemorrhage acute Acute diverticulitis noneact bhargavi Nausea noneactive Acute bronchitis due to other specified organisms acute Acute exacerbation of chroni c obstructive airways disease acute Concussion acute Contusion of left shoulder a cute Primary hypertension acute Stage 3a chronic kidney disease acute Concussion acute Contusion of left shoulder a cute Primary hypertension acute Stage 3a chronic kidney disease acute [facility] Work Phone: Evaluation note* Diagnosis Onset Date Resolution Status Acute bronchitis due to other specified organisms acute Acute exacerbation of chroni c obstructive airways disease acute Concussion acute Contusion of left shoulder a cute Primary hypertension acute Stage 3a chronic kidney disease acute Concussion acute Contusion of left shoulder a cute Primary hypertension acute Stage 3a chronic kidney disease acute Medicare annual wellness visit, subsequent acute Primary hypertension acute Stage 3a chronic kidney disease acute [facility] Work Phone: Evaluation note* Diagnosis Onset Date Resolution Status Acute bronchitis due to other specified organisms acute Acute exacerbation of chroni c obstructive airways disease acute Concussion acute Contusion of left shoulder a cute Primary hypertension acute Stage 3a chronic kidney disease acute Concussion acute Contusion of left shoulder a cute Primary hypertension acute Stage 3a chronic kidney disease acute Fatigue acute Medicare annual wellness visit, subsequent acute Primary hypertension acute Screening mammogram for breast cancer acute Stage 3a chronic kidney disease acute [facility] Work Phone: Evaluation note* Diagnosis Trochanteric bursitis of both hips- Primary Other nerve root and plexus disorders documented in this encounter [facility]* Diagnosis Other nerve root and plexus disorders- Primary Trochanteric bursitis of both hips documented in this encounter [facility]* Diagnosis Postmenopausal atrophic vaginitis- Primary Breast cancer screening by mammogram Hormone replacement therapy documented in this encounter [facility]* Diagnosis Trochanteric bursitis of both hips- Primary Other nerve root and plexus disorders documented in this [facility]* Diagnosis Trochanteric bursitis of both hips- Primary documented in this encounter [facility] HealthcareHistory general Narrative - Reported* Type Description Date Surgical History appenedectomy Surgical History left ovary Surgical History total hysterectomy [facility] Other History general Narrative - Reported* Type [...] 2020 Surgical History EGD Hospitalization History SEE [facility] Other History general Narrative - Reported* Type [...] Surgical History EGD Hospitalization History SEE SURGICAL [facility] Other [facility] general Narrative - ReportedStockr Other [employer] Narrative - ReportedStockr Other Chief Complaint and Reason for Visit Chief Complaint Screening Chief Complaint Sore Throat Sinuses - [phone] B-12 SHOT Chief Complaint Sinuses - [phone] B-12 SHOT 6 month follow up [...] Chief Complaint stomach pain, nausea B12 Shot [phone] cough, congestion for 3 days Reason for Visit Foot pain, left Gastroesophageal reflux disease with esophagitis without hemorrhage Acute diverticulitis Nausea Acute bronchitis due to other specified organisms Acute exacerbation of chronic obstructive airways disease Chief Complaint stomach pain, nausea B12 Shot [phone] cough, congestion for 3 days Fall-L Shoulder, Head/Dr. Note Reason for Visit Foot pain, left Gastroesophageal reflux disease with esophagitis without hemorrhage Acute diverticulitis Nausea Acute bronchitis due to other specified organisms Acute exacerbation of chronic obstructive airways disease Chief Complaint stomach pain, nausea B12 Shot [phone] cough, congestion for 3 days Fall-L Shoulder, Head/Dr. Note follow up Reason for Visit Foot pain, left Gastroesophageal reflux disease with esophagitis without hemorrhage Acute diverticulitis Nausea Acute bronchitis due to other specified organisms Acute exacerbation of chronic obstructive airways disease Concussion Contusion of left shoulder Primary hypertension Stage 3a chronic kidney disease Concussion Contusion of left shoulder Primary hypertension Stage 3a chronic kidney disease Chief Complaint B12 Shot [phone] cough, congestion for 3 days Fall-L Shoulder, Head/Dr. Note follow up CC Adult Risk Stratification Medicare Wellness Reason for Visit Acute bronchitis due to other specified organisms Acute exacerbation of chronic obstructive airways disease Concussion Contusion of left shoulder Primary hypertension Stage 3a chronic kidney disease Concussion Contusion of left shoulder Primary hypertension Stage 3a chronic kidney disease Medicare annual wellness visit, subsequent Primary hypertension Stage 3a chronic kidney disease Chief Complaint B12 Shot [phone] cough, congestion for 3 days Fall-L Shoulder, Head/Dr. Note follow up CC Adult Risk Stratification Medicare Wellness B12 Shot Reason for Visit Acute bronchitis due to other specified organisms Acute exacerbation of chronic obstructive airways disease Concussion Contusion of left shoulder Primary hypertension Stage 3a chronic kidney disease Concussion Contusion of left shoulder Primary hypertension Stage 3a chronic kidney disease Fatigue Medicare annual wellness visit, subsequent Primary hypertension Screening mammogram for breast cancer Stage 3a chronic kidney disease Chief Complaint B12 Shot [phone] cough, congestion for 3 days Fall-L Shoulder, Head/Dr. Note follow up CC Adult Risk Stratification Medicare Wellness B12 Shot Z12.31 Reason for Visit Acute bronchitis due to other specified organisms Acute exacerbation of chronic obstructive airways disease Concussion Contusion of left shoulder Primary hypertension Stage 3a chronic kidney disease Concussion Contusion of left shoulder Primary hypertension Stage 3a chronic kidney disease Fatigue Medicare annual wellness visit, subsequent Primary hypertension Screening mammogram for breast cancer Stage 3a chronic kidney disease Chief Complaint Admit Date [phone] cough, congestion for 3 day s May 11, 2024 12:34pm Fall-L Shoulder, Head/ Note May 17, 2024 10:46am follow up May 27, 2024 11:38am CC Adult Risk Stratification June 2:29pm Medicare Wellness June 14, 2024 11 :05am B12 Shot June 21, 2024 1 0:43am Z12.31 June 23, 2024 1 1:37am 1 month f/u July 20, 2024 10:58am Reason for Visit Admit Date Acute bronchitis due to other specified organisms May 11, 2024 12:34pm Acute exacerbation of chroni c obstructive airways disease May 11, 2024 12:34pm Concussion May 17, 2024 10:46am Contusion of left shoulder May 10:46am Primary hypertension May 17 10:46am Stage 3a chronic kidney disease Septem[facility] r 2023 10:46am Concussion May 27, 2024 11:38am Contusion of left shoulder May 11:38am Primary hypertension May 27 11:38am Stage 3a chronic kidney disease Septembe r 2023 11:38am Fatigue June 14, 2024 11 :05am Medicare annual wellness visit, subseque nt June 14, 2024 11:05am Primary hypertension June 14, 2024 1 1:05am Screening mammogram for breast cancer [facility] tob2023 11:05am Stage 3a chronic kidney disease June 14, 2024 11:05am Concussion July 20, 2024 10:58am Contusion of left shoulder July 10:58am Fatigue July 20, 2024 10:58am Primary hypertension July 20, 2024 10:58am Stage 3a chronic kidney disease July 20, 2024 10:58am Chief Complaint Admit Date [phone] cough, congestion for 3 day s May 11, 2024 12:34pm Fall-L Shoulder, Head/Dr. Note May 17, 2024 10:46am follow up May 27, 2024 11:38am CC Adult Risk Stratification June 2:29pm Medicare Wellness June 14, 2024 11 :05am B12 Shot June 21, 2024 1 0:43am Z12.31 June 23, 2024 1 1:37am 1 month f/u July 20, 2024 10:58am b12 shot July 22, 2024 11:31am Reason for Visit Admit Date Acute bronchitis due to other specified organisms May 11, 2024 12:34pm Acute exacerbation of chroni c obstructive airways disease May 11, 2024 12:34pm Concussion May 17, 2024 10:46am Contusion of left shoulder May 10:46am Primary hypertension May 17 10:46am Stage 3a chronic kidney disease [facility] 2023 10:46am Concussion May 27, 2024 11:38am Contusion of left shoulder May 11:38am Primary hypertension May 27 11:38am Stage 3a chronic kidney disease [facility] 2023 11:38am Fatigue June 14, 2024 11 :05am Medicare annual wellness visit, subseque nt June 14, 2024 11:05am Primary hypertension June 14, 2024 1 1:05am Screening mammogram for breast cancer Oc tob2023 11:05am Stage 3a chronic kidney disease June 14, 2024 11:05am Concussion July 20, 2024 10:58am Dizzy spells July 20, 2024 10:58am Fatigue July 20, 2024 10:58am Primary hypertension July 20, 2024 10:58am Stage 3a chronic kidney disease July 20, 2024 10:58am Family History Relationship Condition Age at Onset [...] Date/ Time Advance Directives No January 21 3:52pm Advance Directive Response Recorded Date/ Time [...] FOR VISIT (unrecogniz ed section and content) Reason Comments Gynecologic Exam Medicare off year.LM P: SHANTA BSO 1982 HRT: Premarin cream - satisfied, but would like to discuss how long to be on itLast pap 04-28-23 neg.Last mammogram 05-13-23 [facility] [place]. Denies breast, urinary, or bowel concerns. Care Teams (unrecognized sec tion and content) Team Status: Inactive Member Role Status Dates Kyle Gottlieb DO Primary Care Provider Active Kulwinder Dao DO Attending Provider, Referring Pr hans Active Team Status: Active Member Role Status Dates Kyle Gottlieb DO Primary Care Provider Active Team Status: Inactive Member Role Status Dates Kyle Gottlieb DO Primary Care Provider Active Kulwinder Dao DO Attending Provider Active Grass Farmer Relationship Specialty Start Date End Date Kyle Gottlieb MD [address] [place] [phone] PCP - General Internal Medicine 02/16/23 Grass Farmer Relationship Specialty Start Date End Date Kyle Gottlieb MD [address] [place] [phone] PCP - General Internal Medicine 02/16/23 Team Status: Inactive Member Role Status Dates Tonya Harrison APRN [employer] Attending Provider Act bhargavi Start: August 25, [...] May 17, 2024 End: May 17, 2024 Team Status: Active Member Role Status Saqib Gottlieb DO Primary Care Provide r, Attending Provider Active Start: May 25, 2024 Team Status: Inactive Member Role Status Saqib Gottlieb DO Primary Care Provide r, Attending Provider Active Start: May 27, 2024 End: May 27, 2024 Team Status: Active Member Role Status Saqib Gottlieb DO Primary Care Provide r, Attending Provider Active Start: June 10, 2024 Team Status: Inactive Member Role Status Saqib Gottlieb DO Primary Care Provide r, Attending Provider Active Start: June 14, 2024 End: June 14, 2024 Team Status: Inactive Member Role Status Saqib Gottlieb DO Primary Care Provide r, Attending Provider Active Start: June 21, 2024 End: June 21, 2024 Team Status: Inactive Member Role Status Saqib Gottlieb DO Primary Care Provider Active Start: June 23, 2024 End: June 23, 2024 Kulwinder D Morenita , DO Attending Provider Active Start: June 23, 2024 End: June 23, 2024 Grass Farmer Relationship Specialty Start Date End Date Kyle Gottlieb MD [address] [place] [facility] [phone] PCP - General Internal Medicine 02/16/23 Grass Farmer Relationship Specialty Start Date End Date Kyle Gottlieb MD [address] [place] [facility] [phone] PCP - General Internal Medicine 02/16/23 Team Status: Inactive Member Role Status Dates Kyle Gottlieb DO Primary Care Provide r, Attending Provider Active Start: July 20, 2024 End: July 20, 2024 Team Status: Inactive Member Role Status Dates Kyle Gottlieb DO Primary Care Provide r, Attending Provider Active Start: July 22, 2024 End: July 22, 2024 Grass Farmer Relationship Specialty Start Date End Date Kyle Gottlieb MD [address] [place] [facility] [place] [phone] PCP - General Internal Medicine 02/16/23 Grass Farmer Relationship Specialty Start Date End Date Kyle Gottlieb MD [address] [place] [facility] [phone] PCP - General Internal Medicine 02/16/23 Grass Farmer Relationship Specialty Start Date End Date Kyle Gottlieb MD [address] [place] [facility] [place] [phone] PCP - General Internal Medicine 02/16/23 Grass Farmer Relationship Specialty Start Date End Date Kyle Gottlieb MD [address] [place] [facility] [phone] PCP - General Internal Medicine 02/16/23 Grass Farmer Relationship Specialty Start Date End Date Kyle Gottlieb MD [address] [facility] [place] [id number] PCP - General Internal Medicine 02/16/23 Grass Farmer Relationship Specialty Start Date End Date Kyle Gottlieb MD [address] [place] [facility] [place] [id number] PCP - General Internal Medicine 02/16/23 Goals (unrecognized section and content) Goals may be documented in a n alternate section INFORMATION SOURCE (unrecogn ized section and content) DATE CREATED AUTHOR 02/13/2023 [facility] DATE CREATED AUTHOR AUTHOR'S ORGANIZ ATION 2024 [facility] DATE CREATED AUTHOR AUTHOR'S ORGANIZ ATION 08/21/2024 [facility] FOR RECORDS PERTAINING TO PATIENTS WHO ARE [...] BE BASED ON THE PRIMARY CLINICAL RECORDS. [facility] [employer]. provides no warranty or guarantee of the accuracy or completeness of information in this document.
[2024-09-05 22:01] LABS: Lactate/Lactic Acid 0.6 mmol/L (0.4-2.0)
[2024-09-05] MEDS: LACTULOSE 10 GM/15 ML UD CUP 30 GM PO (23:09)
[2024-09-05] MEDS: PANTOPRAZOLE SODIUM 40 MG VIAL IV (23:09)
[2024-09-05] MEDS: POTASSIUM CHLORIDE 10 MEQ ER TABLET PO (23:10)
[2024-09-05] MEDS: BENZONATATE 100 MG CAPSULE 200 MG PO (23:10)
[2024-09-05] MEDS: L. ACIDOPHILUS/L.BULGARICUS 1 PACKET GRAN.PACK PO (23:10)
[2024-09-05] MEDS: HYOSCYAMINE SULFATE 0.125 MG TAB.SUBL SL (23:10)
[2024-09-05] MEDS: LACTATED RINGER'S SOLUTION 1,000 ML 100 ML IV (23:10)
[2024-09-05] MEDS: METRONIDAZOLE/SODIUM CHLORIDE 500 MG/100 ML PREMIX 100 MG IV (23:11)
[2024-09-06] VITALS (9 sets, daily range): BP systolic 114–160; BP diastolic 57–78; PULSE 55–86; TEMP 36.6–36.9; O2SAT 91–96
[2024-09-06] MEDS: METRONIDAZOLE/SODIUM CHLORIDE 500 MG/100 ML PREMIX 100 MG IV ×2 (02:29→09:53)
[2024-09-06] MEDS: OXcarbazepine 300 MG TABLET PO (02:57)
[2024-09-06] MEDS: GABAPENTIN 300 MG CAPSULE PO (02:57)
[2024-09-06 06:11] LABS: Basophils Percent Auto 0.6 % (0.2-2.0); Eosinophils Absolute Auto 0.1 10^3/uL (0.0-0.7); Eosinophils Percent Auto 2.3 % (0.9-7.0); Hemoglobin 9.7 g/dL (12.0-16.0); Immature Granulocytes Abs Auto 0.02 10^3/uL (0.00-0.03); Immature Granulocytes Pct Auto 0.6 % (0.0-0.5); Lymphocytes Absolute Auto 1.2 10^3/uL (1.2-3.8); Lymphocytes Percent Auto 35.3 % (20.5-60.0); Mean Corpuscular HGB Conc 32.3 g/dL (29.9-35.2); Mean Corpuscular Hemoglobin 30.2 pg (26.7-34.0); Mean Corpuscular Volume 93.5 fL (81.0-99.0); Mean Platelet Volume 10.5 fL (9.5-13.5); Monocytes Absolute Auto 0.2 10^3/uL (0.3-0.8); Monocytes Percent Auto 6.8 % (1.7-12.0); Neutrophils Absolute Auto 1.9 10^3/uL (1.4-6.5); Neutrophils Percent Auto 54.4 % (43.0-75.0); Platelet Count 172 10^3/uL (150-450); Red Blood Count 3.21 10^6/uL (4.20-5.40); Red Cell Distribution Width 13.3 % (11.0-15.0); White Blood Count 3.5 10^3/uL (4.0-11.0)
[2024-09-06 06:25] LABS: Anion Gap 10.3; BUN Creatinine Ratio 11.3; Calcium 8.1 mg/dL (8.5-10.1); Carbon Dioxide 27.9 mmol/L (21.0-32.0); Chloride 111 mmol/L (98-107); Estimated GFR (African America >60 (>=60 mL/min/1.73m^2); Estimated GFR (Non-African Ame 55 (>=60 mL/min/1.73m^2); Glucose 95 mg/dL (74-106); Potassium 3.2 mmol/L (3.5-5.1); Sodium 146 mmol/L (136-145)
--- NOTE | 2024-09-06 09:02 | CM.NOTE ---
Rounds made with Dr. Zuleta, pt will discharge to home today. PT and OT will evaluate prior to discharge.
[2024-09-06] MEDS: FENOFIBRATE 54 MG TABLET 162 MG PO (09:54)
[2024-09-06] MEDS: FOLIC ACID 1 MG TABLET PO (09:54)
[2024-09-06] MEDS: POTASSIUM CHLORIDE 10 MEQ ER TABLET 20 MEQ PO (09:54)
[2024-09-06] MEDS: FISH OIL 1,000 MG CAPSULE 2000 MG PO (09:54)
[2024-09-06] MEDS: PANTOPRAZOLE SODIUM 40 MG VIAL IV (09:54)
[2024-09-06] MEDS: LACTATED RINGER'S SOLUTION 1,000 ML 100 ML IV (09:54)
[2024-09-06] MEDS: L. ACIDOPHILUS/L.BULGARICUS 1 PACKET GRAN.PACK PO (09:55)
[2024-09-06] MEDS: CALCIUM CARBONATE 600 MG/VITAMIN D3 400 IU TABLET 2 TAB PO (09:55)
[2024-09-06] MEDS: LISINOPRIL 5 MG TABLET PO (09:55)
--- NOTE | 2024-09-06 10:40 | CM.NOTE ---
Medicare Outpatient Observation Notice discussed with pt, pt verbalizes understanding and signs paper. Original given to pt and copy placed on pt's chart.
[2024-09-06] MEDS: CEFTRIAXONE 1,000 MG in 0.9 % SODIUM CHLORIDE 50 ML 100 MG IV (11:07)
--- NOTE | 2024-09-06 11:28 | SWNOTE1 ---
SW reviewed OT note and pt is independent at home.
--- NOTE | 2024-09-06 13:00 | P.PN_ITS ---
Exam Constitutional Vital Signs, click to edit/add: Last Vital Signs Temp 98.4 F 09/06/24 11:46 Pulse 58 L 09/06/24 11:59 Resp 18 09/06/24 11:46 BP 138/71 09/06/24 11:46 Pulse Ox 96 09/06/24 11:46 O2 Del Method Room Air 09/06/24 11:46 Progress Note: Objective Labs Labs: Short CBC 09/05/24 09/06/24 Range/Units 16:05 05:48 WBC 5.6 3.5 L (4.0-11.0) 10^3/uL Hgb 11.8 L 9.7 L (12.0-16.0) g/dL Hct 35.7 L 30.0 L (36.0-48.0) % Plt Count 226 172 (150-450) 10^3/uL BMP 09/05/24 09/06/24 16:05 05:48 Sodium 143 146 H Potassium 3.3 L 3.2 L Chloride 108 H 111 H Carbon Dioxide 28.7 27.9 BUN 12.0 11.0 Creatinine 1.03 H 0.97 Glucose 101 95 Calcium 8.7 8.1 L Liver Function 09/05/24 Range/Units 16:05 Total Bilirubin 0.4 (0.2-1.0) mg/dL AST 17 (15-37) U/L ALT 14 (14-59) U/L Alkaline Phosphatase 49 (46-116) U/L Albumin 3.5 (3.4-5.0) g/dL Urine 09/05/24 Range/Units 17:40 Urine Color Yellow (YELLOW) Urine Clarity Clear (CLEAR) Urine pH 7.5 (5.0-9.0) Ur Specific [place] 1.015 (1.005-1.025) Urine Protein Negative (NEG/TRACE) mg/dL Urine Glucose (UA) Negative (NEGATIVE) mg/dL Progress Note: A&P Assessment and Plan (1) Dehydration: (2) Acute hypokalemia: (3) Abdominal pain: Plan Respiratory distress, uncontrolled hypertension, hypokalemia, acute abdominal findings Acute abdomen likely secondary to diverticulitis, early and mild with no significant low white blood cell count elevation but that is not uncommon with early acute diverticulitis, she has the physical exam findings of pain in left lower quadrant, positive mild rebound, pain in left lower quadrant with palpation of right lower quadrant. Start patient on IV antibiotics, check lactate Hypokalemia-supplement Iron deficiency anemia-monitor daily Hypertension-continue with home medications Peripheral neuropathy continue with home medications GERD-changed to IV Protonix Admit findings: Patient presented with abdominal pain. Exam consistent with acute diverticulitis but no significant finding on CT scan. Medically necessary treatment may only span 1 midnight. Observation status. ?
--- NOTE | 2024-09-06 13:01 | P.DS_ITS ---
DS: Providers Provider Date of admission: 09/05/24 18:45 Primary care physician: Kyle Gottlieb DO Consults: 09/05/24 19:08 Occupational Therapy Eval and Treat Routine Reason for consultation: Only if needed for Rehab Has provider been notified: No Physical Therapy Eval and Treat Routine Reason for consultation: Eval and Treat Has provider been notified: No DS: Diagnosis Discharge Diagnosis (1) Dehydration: (2) Acute hypokalemia: (3) Abdominal pain: Plan Respiratory distress, uncontrolled hypertension, hypokalemia, acute abdominal findings Acute abdomen likely secondary to diverticulitis, early and mild with no significant low white blood cell count elevation but that is not uncommon with early acute diverticulitis, she has the physical exam findings of pain in left lower quadrant, positive mild rebound, pain in left lower quadrant with palp ation of right lower quadrant. Start patient on IV antibiotics, check lactate Hypokalemia-supplement Iron deficiency anemia-monitor daily Hypertension-continue with home medications Peripheral neuropathy continue with home medications GERD-changed to IV Protonix Admit findings: Patient presented with abdominal pain. Exam consistent with acute diverticulitis but no significant finding on CT scan. Medically necessary treatment may only span 1 midnight. Observation status. ? DS: Summary Hospital Course Hospital Course: Patient presented to the emergency room with increasing abdominal pain. On my exam she had acute abdominal findings with significant pain in the left lower quadrant, pain in left lower quadrant with palpation of right lower quadrant and mild rebound tenderness. CT scan did not confirm diverticulitis but based on exam she had consistent findings for diverticulitis. She has a history of diverticulitis. She was treated overnight with IV antibiotics, she does feel better this morning. Exam is much less tender she no longer has pain in left lower quadrant with palpation of right lower quadrant, no rebound tenderness. At this point will give her IV doses this morning, she will be discharged home this afternoon. Medications to this. Follow-up with her PCP within the next week. Status at Discharge Overall status at discharge: patient is not back to baseline Time Spent with Patient Time attestation: Total time spent providing and/or coordinating discharge services: Time spent: greater than 30 minutes Exam Constitutional Vital Signs, click to edit/add: Last Vital Signs Temp 98.4 F 09/06/24 11:46 Pulse 58 L 09/06/24 11:59 Resp 18 09/06/24 11:46 BP 138/71 09/06/24 11:46 Pulse Ox 96 09/06/24 11:46 O2 Del Method Room Air 09/06/24 11:46 Documenting provider has reviewed patient's vital signs: yes Common normals: apparent distress (Moderate distress secondary to pain and nausea) Respiratory Common normals: normal respiratory effort and no retractions Cardio Common normals: regular rhythm; irregular rate Rate: tachycardic GI Common normals: Normal to inspection, nondistended, normoactive bowel sounds present and soft to palpation; tender Palpation: tender (Pain and left lower quad, pain in left lower quadrant with palp of RLQ) and rebound tenderness present DS: Data Data Completed and Pending Labs on day of discharge: Labs from last 24 hours 09/06/24 09/05/24 09/05/24 05:48 21:30 18:34 WBC 3.5 L RBC 3.21 L Hgb 9.7 L Hct 30.0 L MCV 93.5 MCH 30.2 MCHC 32.3 RDW 13.3 Plt Count 172 MPV 10.5 Neut % (Auto) 54.4 Lymph % (Auto) 35.3 Cross % (Auto) 6.8 Eos % (Auto) 2.3 Baso % (Auto) 0.6 Neut # (Auto) 1.9 Lymph # (Auto) 1.2 Cross # (Auto) 0.2 L Eos # (Auto) 0.1 Baso # (Auto) 0.0 Abs Immat Gran (auto) 0.02 Imm/Tot Granulo (auto) 0.6 H ESR Sodium 146 H Potassium 3.2 L Chloride 111 H Carbon Dioxide 27.9 Anion Gap 10.3 BUN 11.0 Creatinine 0.97 Est GFR ( Amer) >60 Est GFR (Non-Af Amer) 55 L BUN/Creatinine Ratio 11.3 Glucose 95 Lactate 0.6 Calcium 8.1 L Total Bilirubin AST ALT Alkaline Phosphatase Troponin I High Sens 34.8 C-Reactive Protein <0.50 Total Protein Albumin Globulin Albumin/Globulin Ratio Urine Color Urine Clarity Urine pH Ur Specific [place] Urine Protein Urine Glucose (UA) Urine Ketones Urine Occult Blood Urine Nitrite Urine Bilirubin Urine Urobilinogen Ur Leukocyte Esterase Influenza Type A Ag Influenza Type B Ag SARS-CoV-2 Ag (CV2AG) Streptococcus Screen Ref Lab Order Date Ref Lab Test Name Ref Test Addition Info 09/05/24 09/05/24 09/05/24 17:40 16:05 15:32 WBC 5.6 RBC 3.81 L Hgb 11.8 L Hct 35.7 L MCV 93.7 MCH 31.0 MCHC 33.1 RDW 13.3 Plt Count 226 MPV 10.8 Neut % (Auto) 67.1 Lymph % (Auto) 24.6 Cross % (Auto) 6.7 Eos % (Auto) 0.9 Baso % (Auto) 0.2 Neut # (Auto) 3.8 Lymph # (Auto) 1.4 Cross # (Auto) 0.4 Eos # (Auto) 0.1 Baso # (Auto) 0.0 Abs Immat Gran (auto) 0.03 Imm/Tot Granulo (auto) 0.5 ESR 6 Sodium 143 Potassium 3.3 L Chloride 108 H Carbon Dioxide 28.7 Anion Gap 9.6 BUN 12.0 Creatinine 1.03 H Est GFR ( Amer) >60 Est GFR (Non-Af Amer) 51 L BUN/Creatinine Ratio 11.7 Glucose 101 Lactate Calcium 8.7 Total Bilirubin 0.4 AST 17 ALT 14 Alkaline Phosphatase 49 Troponin I High Sens 22.3 C-Reactive Protein Total Protein 6.6 Albumin 3.5 Globulin 3.1 Albumin/Globulin Ratio 1.1 Urine Color Yellow Urine Clarity Clear Urine pH 7.5 Ur Specific [place] 1.015 Urine Protein Negative Urine Glucose (UA) Negative Urine Ketones Negative Urine Occult Blood Negative Urine Nitrite Negative Urine Bilirubin Negative Urine Urobilinogen 2.0 A Ur Leukocyte Esterase Negative Influenza Type A Ag Influenza Type B Ag SARS-CoV-2 Ag (CV2AG) Streptococcus Screen Ref Lab Order Date Ref Lab Test Name Ref Test Addition Info 09/05/24 15:31 WBC RBC Hgb Hct MCV MCH MCHC RDW Plt Count MPV Neut % (Auto) Lymph % (Auto) Cross % (Auto) Eos % (Auto) Baso % (Auto) Neut # (Auto) Lymph # (Auto) Cross # (Auto) Eos # (Auto) Baso # (Auto) Abs Immat Gran (auto) Imm/Tot Granulo (auto) ESR Sodium Potassium Chloride Carbon Dioxide Anion Gap BUN Creatinine Est GFR ( Amer) Est GFR (Non-Af Amer) BUN/Creatinine Ratio Glucose Lactate Calcium Total Bilirubin AST ALT Alkaline Phosphatase Troponin I High Sens C-Reactive Protein Total Protein Albumin Globulin Albumin/Globulin Ratio Urine Color Urine Clarity Urine pH Ur Specific [place] Urine Protein Urine Glucose (UA) Urine Ketones Urine Occult Blood Urine Nitrite Urine Bilirubin Urine Urobilinogen Ur Leukocyte Esterase Influenza Type A Ag Negative Influenza Type B Ag Negative SARS-CoV-2 Ag (CV2AG) Negative Streptococcus Screen Negative Ref Lab Order Date 09/05/24 Ref Lab Test Name Group a culture Ref Test Addition Info [facility] [place] Discharge Plan Discharge Disposition: Home, Self-Care Discharge Medications: New cefdinir 300 mg capsule 600 mg PO DAILY Qty: 20 0RF Rx Instructions: Tolerated in the past with pcn allergy metronidazole 500 mg tablet 500 mg PO Q8H Qty: 30 0RF Continued oxcarbazepine [Trileptal] 300 mg tablet 300 mg PO DAILY gabapentin [Neurontin] 300 mg capsule 300 mg PO DAILY fenofibrate 160 mg tablet 160 mg PO DAILY benazepril 5 mg tablet 5 mg PO DAILY omeprazole 40 mg capsule,delayed release(DR/EC) 40 mg PO Q12H Premarin 0.625 mg/gram cream 0.625 mg vaginal DAILY Rx Instructions: off 5 days; repeat cycle omega 4-[id number]-fish oil [Fish Oil] 1,200 (144-216) mg capsule 2 cap PO DAILY folic acid 1 mg tablet 1 mg PO DAILY calcium carbonate-vitamin D2 600 mg calcium- 200 unit tablet 2 tab PO DAILY cetirizine [24Hour Allergy] 10 mg tablet 10 mg PO DAILY PRN (Reason: allergy symptoms) Print Language: [place]itan[place] Patient Instructions: Metronidazole (By mouth), Cefdinir (By mouth), Abdominal Pain (DC) Forms: Portal Instructions Follow Up Appointments: Dr. Gottlieb's office will call to schedule a follow up appt. [phone] Discharge Date/Time: 09/06/24 12:55
--- NOTE | 2024-09-08 14:42 | CM.DCFOLLOWU ---
Person spoke with: Gina How are you feeling? Better but still getting upset stomach occasionally How is your pain? No pain Did you understand your discharge instructions? Yes Do you have any questions about your discharge instructions? No Were you given any prescriptions at discharge? Yes Were you able to get your prescriptions filled? Yes Do you understand how to take your medications as ordered? Yes Do you have any questions about your follow up appointment and do you plan to keep your follow up appointment? I will call today to schedule Is there anything else that you would like to discuss? No Questions/Comments/Concerns/Other:
== END 2024-09-06 12:55 | disposition home or self-care (01) ==
LOC: ER 18:06 → MS 19:52
PROVIDERS: Admitting Provider Family Medicine; Emergency Provider Emergency Medicine; PCP Internal Medicine; Visit Provider Family Medicine
DX: K57.92 Diverticulitis of intestine, part unspecified, without perforation or abscess without bleeding (principal); E86.0 Dehydration; E87.6 Hypokalemia; K59.00 Constipation, unspecified; Z90.710 Acquired absence of both cervix and uterus; Z90.49 Acquired absence of other specified parts of digestive tract; R42 Dizziness and giddiness; I10 Essential (primary) hypertension; R06.03 Acute respiratory distress; R11.0 Nausea; D50.9 Iron deficiency anemia, unspecified; G62.9 Polyneuropathy, unspecified; K21.9 Gastro-esophageal reflux disease without esophagitis; R10.0 Acute abdomen; K57.30 Diverticulosis of large intestine without perforation or abscess without bleeding; M51.369 Other intervertebral disc degeneration, lumbar region without mention of lumbar back pain or lower extremity pain
CPT/HCPCS: 36415; 74176; 80048; 80053; 81003; 83605; 84484; 85025; 85652; 86140; 87070; 87081; 87502; 87804; 87811; 87880; 93005; 94761; 96361; 96365; 96366; 96367; 96375; 96376; 97165; 99285; G0328; G0378; J0696; J1836; J2405

== ENCOUNTER 2024-09-23 11:06 | Outpatient (OUT) | payer MEDICARE, OTHER, SELFPAY ==
[2024-09-23 12:03] LABS: Basophils Percent Auto 0.7 % (0.2-2.0); Eosinophils Absolute Auto 0.2 10^3/uL (0.0-0.7); Eosinophils Percent Auto 3.5 % (0.9-7.0); Hematocrit 36.3 % (36.0-48.0); Hemoglobin 11.4 g/dL (12.0-16.0); Immature Granulocytes Abs Auto 0.04 10^3/uL (0.00-0.03); Immature Granulocytes Pct Auto 0.9 % (0.0-0.5); Lymphocytes Absolute Auto 1.1 10^3/uL (1.2-3.8); Lymphocytes Percent Auto 25.5 % (20.5-60.0); Mean Corpuscular HGB Conc 31.4 g/dL (29.9-35.2); Mean Corpuscular Volume 95.5 fL (81.0-99.0); Mean Platelet Volume 11.2 fL (9.5-13.5); Monocytes Absolute Auto 0.3 10^3/uL (0.3-0.8); Monocytes Percent Auto 7.4 % (1.7-12.0); Neutrophils Absolute Auto 2.7 10^3/uL (1.4-6.5); Platelet Count 174 10^3/uL (150-450); Red Cell Distribution Width 13.2 % (11.0-15.0); Reticulocyte Pct Auto 2.66 % (0.60-3.10); White Blood Count 4.3 10^3/uL (4.0-11.0)
[2024-09-23 12:27] LABS: Anion Gap 15.4; BUN Creatinine Ratio 13.9; C Reactive Protein <0.50 mg/dL (<=0.50); Calcium 8.9 mg/dL (8.5-10.1); Carbon Dioxide 28.5 mmol/L (21.0-32.0); Chloride 104 mmol/L (98-107); Estimated GFR (African America 55 (>=60 mL/min/1.73m^2); Estimated GFR (Non-African Ame 45 (>=60 mL/min/1.73m^2); Glucose 86 mg/dL (74-106); Potassium 3.9 mmol/L (3.5-5.1); Sodium 144 mmol/L (136-145); Thyroid Stimulating Hormone 1.732 uIU/mL (0.358-3.740)
[2024-09-23 13:05] LABS: Erythrocyte Sedimentation Rate 9 mm/hr (<=30); Percent Iron Saturation 22.2 %
[2024-09-24 04:15] LABS: Vitamin B12 815 pg/mL (232-1245)
== END 2024-09-23 11:07 | disposition home or self-care (01) ==
LOC: LAB 11:08
PROVIDERS: PCP Internal Medicine; Visit Provider Internal Medicine
DX: D64.9 Anemia, unspecified (principal); R53.83 Other fatigue; N18.31 Chronic kidney disease, stage 3a; K57.90 Diverticulosis of intestine, part unspecified, without perforation or abscess without bleeding; R19.7 Diarrhea, unspecified; I12.9 Hypertensive chronic kidney disease with stage 1 through stage 4 chronic kidney disease, or unspecified chronic kidney disease
CPT/HCPCS: 36415; 80048; 82607; 82728; 82746; 83540; 83550; 84443; 85025; 85045; 85652; 86140

== ENCOUNTER 2024-09-30 18:29 | Emergency (ER) | payer OTHER, SELFPAY ==
[2024-09-30] VITALS (12 sets, daily range): BP systolic 155–204; BP diastolic 68–90; PULSE 63–101; TEMP 36.6; O2SAT 95–100; BMI 24.1
--- OUTSIDE RECORDS SUMMARY | 2024-09-30 18:36 | XMS_ITS | CCD ---
Author Organization [facility] Care Team Providers Care Corporate Administrator Name Role Phone Doni Rivera Unavailable DO Kyle Gottlieb Primary Care Provider [phone] DO Aamir Dao Attending Provider DO Aamir Dao Referring Provider Kyle Gottlieb Unavailable MICAH, DR MURPHY Primary Care Unavailable BALL, DR MURPHY Attending Unavailable BALL, DR MURPHY Consulting Unavailable BALL, DR MURPHY Admitting Unavailable BALL, DR MURPHY Attending Unavailable BALL, DR MURPHY Consulting Unavailable MICAH, DR MURPHY Primary Care Unavailable MICAH, DR MURPHY Admitting Unavailable KIARA, DR BUCKY Florez Consulting Unavailable MICAH, DR MURPHY Admitting Unavailable BALL, DR MURPHY Attending Unavailable BALL, DR MURPHY Consulting Unavailable MICAH, DR MURPHY Primary Care Unavailable NEFJUHI, NANDO [...] Kyle Gottlieb Primary Care Provider DO Aamir Dao Attending Provider Tonya Harrison Unavailable Kyle Gottlieb MD Primary Care Provider DO Kyle Gottlieb Primary Care Provider DO Aamir Dao Attending Provider [phone] Kyle Gottlieb DO Primary Care Provider [phone] Aamir Dao DO Attending Provider [phone] Anita Garcia Attending Unavailable Anita Garcia Admitting Unavailable Kyle Gottlieb Primary Care Unavailable Aamir Dao Attending Unavailable Aamir Dao Admitting Unavailable Anita Garcia MD Attending Provider SHIVAM PONCE Attending Unavailable MEL HAYES Attending Unavailable SHIVAM PONCE Attending Unavailable SHIVAM PONCE Attending Unavailable AAMIR DAO Attending Unavailable SHIVAM PONCE Attending Unavailable PONCE, SHIVAM Choi Attending Unavailable PONCESHIVAM Attending Unavailable PONCESHIVAM Attending Unavailable Allergies Allergy Classification Reported Allergen(s) Allergy Type Date of Onset Reaction(s) Facility (20 sources) Amoxicillin Drug Allergy 11-29-19 22 Unknown, [facility] (20 sources) Clarithromycin Drug Allergy 11-29-19 22 Unknown, [facility] (20 sources) Naproxen Drug Allergy 11-29-19 22 Unknown [facility] (20 sources) Sulfamethoxazole / Trimethoprim Drug Allergy 02-17-20 23 Unknown [facility] (20 sources) LEVOFLAXIN Propensity to adverse reactions 09-17-19 24 Unknown, Unknown Reaction [facility] (11 sources) Sulfamethoxazole / Trimethoprim; Translations: [Bactrim] Drug Allergy 11-19-19 14 Unknown [facility] (20 sources) levoFLOXacin; Translations: [Levofloxacin] Drug Allergy 11-29-19 22 [facility] (20 sources) Sulfamethoxazole Drug Allergy 11-29-19 22 Unknown [facility] (20 sources) Trimethoprim Drug Allergy 11-29-19 22 Unknown [facility] (1 source) Amoxicillin Drug Allergy [facility] (1 source) Clarithromycin Drug Allergy [facility] (1 source) Naproxen Drug Allergy 11-19-19 14 [facility] (17 sources) Baclofen Drug Allergy Unknown [facility] Other (17 sources) levoFLOXacin Drug Allergy Unknown [facility] Other (17 sources) Penicillin Drug Allergy Unknown [facility] Other (17 sources) predniSONE Drug Allergy Unknown [facility] Other (20 sources) Biaxin XL *MACROLIDES* Propensity to adverse reactions 09-17-19 24 Unknown, Unknown Reaction [facility] (2 sources) Allergies Reconciled Propensity to adverse reactions Unknown [facility] Other (2 sources) patient allergy list reviewed by nurse or physicia Propensity to adverse reactions 09-10-19 16 Comment:Done [facility] Other (17 sources) corticosteroid and/or corticosteroid derivative (FN) Drug allergy Unknown [facility] Other (20 sources) Substance with sulfonamide structure and antibacterial mechanism of action (substance) Drug allergy 05-27-20 24 Unknown [facility] Other (17 sources) Substance with penicillin structure and antibacterial mechanism of action (substance) Drug allergy Unknown [facility] Other (12 sources) Clarithromycin Allergy to substance 11-29-[address] [facility] (16 sources) Corticosteroids Allergy to substance 09-17-19 24 Unknown Reaction [facility] (16 sources) Penicillins Allergy to substance 09-17-19 24 Unknown Reaction [facility] (16 sources) Sulfonamides (Antibiotic) Allergy to substance 09-17-19 Unknown Reaction [facility] (10 sources) Corticosteroids and derivatives Drug Allergy 03-09-[address] [facility] (10 sources) Macrolides And Ketolides Drug Allergy 10-21-[address] [facility] Medications Current Medications Medication Drug Class(es) Dates Sig (Normalized) Sig (Original) benazepril hydrochloride 5 mg oral tablet (20 sources) Angiotensin Converting Enzyme Inhibitor Start: 03-08-2024 take 1 tablet by mouth once daily Benazepril 5 mg tablet Active 0 .ROUTE .COMPLEX March 08, 2024 7:40am TAKE 1 TABLET BY MOUTH ONCE DAILY Start: 03-08-2024 take 1 tablet by shiloh once daily Benazepril Active 0 .ROUTE .COMPLEX [...] Active calcium carbonate 1500 mg / cholecalciferol 500 unt oral capsule ([address]) [address] ri t: 0 Calcium Carbonate-Vitamin D3 (Calcium 600 With Vitamin D3) 600 mg-12.5 mcg (500 unit) capsule Active CAP PO August 16, 2024 12:00am take 1 tablet by shiloh th once daily at mealtime take 1 tablet by shiloh th every twenty-four hours Calcium + D 600-200 MG-UNIT 1 tablet wit h food Orally Once a day for 30 day(s) Active Calcium Carbonate-Vit D-Min (Calcium 600+D Plus Minerals) 600-400 MG-UNIT chewable tablet (13 sources) Calcium Carbonat e-Vit D-Min (Calcium 600+D Plus Minerals) 600-400 MG-UNIT chewable tablet every 12 (twelve) hours. Active Calcium Carbonat e-Vit D-Min (Calcium 600+D Plus Minerals) 600-400 MG-UNIT chewable tablet every 12 (twelve) hours. 0 Active cetirizine hydrochloride 10 mg oral tablet (20 sources) Histamine-1 Receptor Antagonist Start: 08-16-2024 take 1 tablet by mouth once daily as needed Cetirizine 10 mg tablet Active 10 MG PO Daily as needed August 16, 2024 12:00am Start: 11-28-2021 End: 10-21-2023 take 1 tablet by mouth once daily Cetirizine (Zyrtec) 10 mg tablet Discontinued 10 MG PO Daily November 27, 2021 11:00pm October 21, 2023 11:30am docusate sodium 100 mg oral capsule (13 sources) docusate sodium (Colace) 100 MG capsule 1 (one) time each day at the same time. Active estradiol 0.1 mg/ml vaginal cream (10 sources) Estrogen Start: 05-03-2024 estradiol (Est race) 0.1 MG/GM vaginal cream Indications: Hormone replacement therapy Use 0.5 g vaginally once weekly. 42.5 g 05/03/2024 Active estrogens, conjugated (mcfp) 0.625 mg/ml vaginal cream (20 sources) Estrogen [...] DAILY Start: 11-04-2023 take 1 tablet by [facility] once daily Fenofibrate Active 0 .ROUTE .COMPLEX November 04, 2023 7:09pm TAKE 1 TABLET BY MOUTH ONCE DAILY Start: 11-28-2021 End: 11-04-2023 fenofibrate (Triglide) 160 M G tablet 11/17/2022 Active Start: 06-12-2010 take 1 capsule by mo [facility] once daily at mealtime fenofibrate micronized (Lofibra) 134 MG capsule take 1 capsule (134MG) by ORAL route every day with food Oral 06/12/2010 Active Fish Sau-Cmvnh-4-Vit C-Vit E 2,000-650-12 mg/2.5 gram emulsion in packet (2 sources) Start: 08-16-2024 Fish Oil-[place] -3-Vit C-Vit E 2,000-650-12 mg/2.5 gram emulsion in packet Active GM PO August 16, 2024 12:00am Fish Oils (20 sources) take 1 capsule by mouth three ti mes daily take 1 capsule by mouth three ti mes daily Fish Oil 1200 MG 1 capsule Orally Three times a day for 30 day(s) Active folic acid 1 mg oral tablet (20 sources) Start: 01-09-2023 End: 08-08-2024 take 1 tablet by mouth once daily [...] HS 06/06/2009 Active take 1 capsule by mo [facility] every eight hours Neurontin 300 MG 1 capsule Orally Three times a day Active hydrocortisone acetate 25 mg rectal suppository (20 sources) Corticosteroid Start: 04-18-2024 hydrocortisone (Anusol-HC) 25 MG suppository UNWRAP AND INSERT 1 SUPPOSITORY RECTALLY EVERYDAY AT BEDTIME 04/18/2024 Active Start: 10-21-2023 End: 08-16-2024 Proctozone-HC 2.5 % rectal c ream 04/13/2024 Active Start: 11-28-2021 End: 11-25-2023 Hydrocortisone Acetate (Anuc ort-Hc) 25 mg suppository Discontinued 25 MG NE Daily at bedtime October 21, 2023 12:00am November 25, 2023 10:27am Proctozone-HC 2. 5 % APPLY TOPICALLY 2 TO 4 TIMES DAILY for 90 Active Proctosol HC 2.5 % 1 application to affected area Rectal Twice a day for 30 days Active Anucort-HC Activ e Hydrocortisone Acetate (Anucort-Hc) 25 mg suppository (15 sources) Start: 11-25-2023 Hydrocortisone Acetate (Anucort-Hc) 25 mg suppository Active 25 MG NE Daily at bedtime 30 08November 25, 2023 10:27am Start: 11-25-2023 Hydrocortisone Acetate (Anucort-Hc) 25 mg suppository Active 25 MG NE Daily at bedtime 30 08November 25, 2023 11:27am ipratropium bromide 0.042 mg/actuat metered dose nasal spray (12 sources) Anticholinergic Start: 02-16-2023 take 2 spray(s) nasal route in the morning, then take 2 spray(s) nasal route in the evening, then take 2 spray(s) nasal route at bedtime ipratropium (Atrovent) 0.06 % nasal spray Indications: Chronic rhinitis Administer 2 sprays into each nostril in the morning and 2 sprays in the evening and 2 sprays before bedtime. 15 mL 11 02/16/2023 Active Mecobalamin (Vitamin B12) 10,000 mcg recon soln (2 sources) Start: 08-16-2024 Mecobalamin (Vitamin B12) 10,000 mcg recon soln Active MCG IV August 16, 2024 12:00am omeprazole 40 mg delayed release oral capsule (2 sources) Proton Pump Inhibitor Start: 08-16-2024 take 1 capsule by mouth twice daily Omeprazole 40 mg capsule,delayed release(DR/EC) Active 40 MG PO Twice daily 180 90 August 16, 2024 12:00am OXcarbazepine 300 mg oral tablet (20 sources) Anti-epileptic Agent Start: 01-12-2024 take 1 tablet by mouth once daily at bedtime Oxcarbazepine 300 mg tablet Active 0 .ROUTE .COMPLEX January 12, 2024 1:14pm TAKE 1 TABLET BY MOUTH EVERY NIGHT AT BEDTIME Start: 06-06-2009 End: 01-12-2024 take 1 tablet by mouth once daily OXcarbazepine (Trileptal) 300 MG tablet take 1 tablet (300MG) by ORAL route every day Oral 06/06/2009 Active Stool Softener (20 sources) Stool Softener A ctive tiZANidine 4 mg oral tablet (20 sources) Central alpha-2 Adrenergic Agonist Start: 09-14-2024 End: 09-24-2024 take 1 tablet by mouth at bedtime tiZANidine (Zanaflex) 4 MG tablet Indications: Cervical paraspinal muscle spasm Take 1 tablet (4 mg) by mouth at bedtime for 10 days 30 tablet 3 09/14/2024 09/24/2024 Active Start: 11-28-2021 End: 08-16-2024 Tizanidine (Zanaflex) 4 mg T ablet Discontinued 2 MG PO Bedtime as needed for Pain November 27, 2021 11:00pm August 16, 2024 11:11am Start: 06-06-2009 take 1 tablet by shil[place] th once at bedtime tiZANidine (Zanaflex) 4 MG capsule take 1 tablet (4MG) by ORAL route every bedtime Oral 06/06/2009 Active take 1 tablet by shil[place] th every eight hours Zanaflex 4 MG 1 tablet as needed Orally every 8 hrs Active valACYclovir 500 mg oral tablet (13 sources) Herpesvirus Nucleoside Analog DNA Polymerase Inhibitor, [...] mcg bupivacaine hydrochloride 5 mg/ml injectable solution (11 sources) Amide Local Anesthetic Start: 09-19-2024 End: 09-14-2024 bupivacaine (Marcaine) 0.5 % injection 5 mg Start: 09-19-2024 End: 09-14-2024 5 mg (1 mL), Injection, Once , On Thu09/19/24 at 0015, For 1 dose Start: 08-18-2024 End: 08-18-2024 bupivacaine (Marcaine) 0.5 [...] G as directed Orally bid Dec, Active dexamethasone phosphate 4 mg/ml injectable solution (20 sources) Corticosteroid Start: 09-19-2024 End: 09-14-2024 dexAMETHasone sod phos (Decadron) injection 4 mg Start: 09-19-2024 End: 09-14-2024 4 mg (1 mL), Injection, Once , On Thu09/19/24 at 0015, For 1 dose Start: 08-18-2024 End: 08-18-2024 dexAMETHasone sod phos (Deca dron) injection 4 mg Start: 08-18-2024 End: 08-18-2024 [...] this for 10 days. 20 tablet 06/02/2024 Active dicyclomine hydrochloride 20 mg oral tablet (20 sources) Anticholinergic Start: 10-21-2023 End: 08-16-2024 take 1 tablet by mouth four times daily Dicyclomine 20 mg tablet Discontinued 20 MG PO Four times daily October 21, 2023 12:00am August 16, 2024 11:15am take 1 tablet by mouth every six hours Dicyclomine HCl 20 MG 1 tablet Orally QID Active Hydrocortisone (Proctosol Hc ) 2.5 % Cream With Applicator (18 sources) Start: 11-28-2021 End: 10-21-2023 Hydrocortisone (Proctosol Hc ) 2.5 % Cream With Applicator Discontinued 1 EACH NE Daily as needed for Hemorrhoids November 27, 2021 11:00pm October 21, 2023 11:30am Start: 11-28-2021 End: 10-21-2023 Hydrocortisone (Proctosol Hc ) 2.5 % Cream With Applicator Discontinued 1 EACH NE Daily November 28, 2021 12:00am October 21, 2023 12:30pm Start: 11-28-2021 Hydrocortisone (Proctosol Hc) 2.5 % Cream With Applicator Active 1 EACH NE Daily November 27, 2021 11:00pm Start: 11-28-2021 Hydrocortisone (Proctosol Hc) 2.5 % Cream With Applicator Active 1 EACH NE Daily November 28, 2021 12:00am metroNIDAZOLE 500 mg oral tablet (12 sources) Nitroimidazole Antimicrobial Start: 03-09-2024 End: 08-16-2024 take 1 tablet by mouth every eight hours Metronidazole 500 mg tablet Discontinued 500 MG PO Every 8 hours 27 03March 08, 2024 11:00pm August 16, 2024 11:15am [place] 4-Ciy-Gej-Fish Oil (Fish Oil) 1,200 (144-216) mg Capsule (18 sources) Start: 11-28-2021 End: 10-21-2023 take 2 capsules by mouth at bedtime [place] 6-Bxg-Bhc-Fish Oil (Fish Oil) 1,200 (144-216) mg Capsule Discontinued 2 CAP PO Bedtime November 27, 2021 11:00pm October 21, 2023 11:30am Start: 11-28-2021 End: 10-21-2023 take 2 capsules by mouth at bedtime [place] 0-Lgd-Yjl-Fish Oil (Fish Oil) 1,200 (144-216) mg Capsule Discontinued 2 CAP PO Bedtime November 28, 2021 12:00am October 21, 2023 12:30pm Start: 11-28-2021 take 2 capsules by m outh at bedtime [place] 2-Sko-Qbe-Fish Oil (Fish Oil) 1,200 (144-216) mg Capsule Active 2 CAP PO Bedtime November 27, 2021 11:00pm Start: 11-28-2021 take 2 capsules by m outh at bedtime [place] 4-Weg-Ryr-Fish Oil (Fish Oil) 1,200 (144-216) mg Capsule Active 2 CAP PO Bedtime November 28, 2021 12:00am ondansetron 4 mg disintegrating oral tablet (12 sources) Serotonin-3 Receptor Antagonist Start: 03-09-2024 End: 08-16-2024 take 1 tablet by mouth every six hours as needed for nausea and vomiting Ondansetron 4 mg tablet,disintegrating Discontinued 4 MG PO Every 6 hours as needed for nausea and vomiting 24 01March 08, 2024 11:00pm August 16, 2024 11:15am pantoprazole 40 mg delayed release oral tablet (20 sources) Proton Pump Inhibitor Start: 12-28-2020 End: 08-16-2024 take 1 tablet by mouth twice daily Pantoprazole 40 mg tablet,delayed release (DR/EC) Discontinued 40 MG PO Twice daily November 27, 2021 11:00pm August 16, 2024 11:29am pantoprazole (Pr otonix) 40 MG EC tablet 1 (one) time each day at the same time. Active Problems Active Problems Problem Classification Problem Date Documented Da te Episodic/Chronic Abdominal pain (20 sources) Abdominal pain; Translations: [Unspecified abdominal pain] Onset: 4 Resolved: 2 Episodic Acute and unspecified renal failure (1 source) Acute kidney failure, unspecified; Translations: [ACUTE KIDNEY FAILURE UNSPECIFIED] Onset: 3 Episodic Anxiety disorders (2 sources) Generalized anxiety disorder; Translations: [Generalized anxiety disorder] Chronic Chronic kidney disease (20 sources) Chronic kidney disease stage 3A ; Translations: [Stage 3a chronic kidney disease] Onset: 4 10-21-2023 Chronic Chronic obstructive pulmonary disease and bronchiectasis (20 sources) Mucopurulent chronic bronchitis; Translations: [Mucopurulent chronic bronchitis] Onset: 4 Chronic Conditions associated with dizziness or vertigo (9 sources) Dizziness and giddiness; Translations: [Dizziness and giddiness] Onset: 4 07-20-2024 Episodic Deficiency and other anemia (11 sources) Anemia, unspecified; Translations: [Anemia, unspecified] Onset: 3 Episodic Deficiency and other anemia [...] (20 sources) Hypokalemia; Translations: [Hypokalemia] Onset: 3 09-05-2024 Episodic Hemorrhoids (20 sources) Hemorrhoids; Translations: [Unspecified [...] [VIRAL INTESTINAL INFECTION UNSPEC] Onset: 3 Episodic Menopausal disorders (14 sources) Atrophic vaginitis; Translations: [Postmenopausal atrophic vaginitis] Onset: 3 01-26-2023 Chronic Mood disorders (20 sources) Mild recurrent major depression; Translations: [Major depressive disorder, recurrent, mild] Onset: 9 Chronic Multiple sclerosis (20 sources) Multiple sclerosis; Translations: [Multiple sclerosis] Onset: 3 Chronic Nausea and vomiting (20 sources) Nausea and vomiting; Translations: [Nausea with vomiting, unspecified] Onset: 4 Resolved: 2 Episodic Nonmalignant breast conditions (13 sources) Fibrocystic disease of breast; Translations: [Diffuse cystic mastopathy of unspecified breast] Onset: 3 01-26-2023 Chronic Nutritional deficiencies (1 source) Moderate protein-calorie malnutrition; Translations: [MODERATE PROTEIN-CALORIE MLNUTRIT] Onset: 3 Chronic Nutritional deficiencies (1 source) Deficiency of other specified B group vitamins Episodic Osteoarthritis (2 sources) Osteoarthritis; Translations: [Polyosteoarthritis, unspecified] Chronic Other aftercare (1 source) Other ocean transportation intermediary (current) drug therapy; Translations: [OTH INTERVENTIONAL PAIN PHYSICIAN CURRENT DRUG THERAPY] Onset: 3 Episodic Other aftercare (2 sources) Long-term current use of drug therapy; Translations: [Other ocean transportation intermediary (current) drug therapy] Episodic Other and unspecified [...] sources) Fibromyalgia Episodic Other connective tissue disease (12 sources) Foot pain; Translations: [Pain in left foot] 03-09-2024 Episodic Other connective tissue disease (4 sources) Pain in left foot; Translations: [Pain in limb] 03-09-2024 Episodic Other connective tissue disease (15 sources) Bilateral trochanteric bursitis; Translations: [Trochanteric bursitis, right hip] Onset: 4 01-21-2024 Episodic Other connective tissue disease (1 source) Spasm of cervical paraspinous muscle; Translations: [Other muscle spasm] 09-19-2024 Episodic Other diseases of kidney and ureters [...] sources) Diarrhea; Translations: [Diarrhea, unspecified] Onset: 7 08-16-2024 Episodic Other gastrointestinal disorders (6 sources) Diarrhea, unspecified; Translations: [Diarrhea] Onset: 2 Resolved: 2 Episodic Other injuries and conditions due to external causes (2 sources) History of fall; Translations: [History of falling] Episodic Other lower respiratory disease (1 source) Acute respiratory distress; Translations: [ACUTE RESPIRATORY DISTRESS] Onset: 3 Episodic Other lower respiratory disease (1 source) Other nonspecific abnormal finding of lung field Episodic Other nervous system disorders (15 sources) Brachial plexus disorder; Translations: [Brachial plexus disorders] Onset: 3 01-26-2023 Chronic Other nervous system disorders (14 sources) Disorder of nerve root and/or plexus; [...] conditions (not mental disorders or infectious disease) (17 sources) Other specified abnormal findings of blood [...] dependence, cigarettes, in remission] Onset: 4 Chronic Unclassified (3 sources) LOW BACK PAIN, UNSPECIFIED; [...] obstruction or gangrene] Onset: 09-14-2014 Episodic Acute bronchitis (20 sources) Acute bronchitis; Translations: [Acute bronchitis due to other specified organisms] Onset: 03-27-2014 05-11-2024 Episodic Acute posthemorrhagic anemia (2 sources) Acute [...] Blepharitis; Translations: [Blepharitis, unspecified] Onset: 10-12-2015 Episodic Intracranial injury (20 sources) Concussion injury of body structure; Translations: [Concussion] Onset: 06-01-2024 05-17-2024 Episodic Malaise and fatigue (20 sources) Malaise; Translations: [Other malaise] Onset: 12-25-2017 Episodic Menopausal disorders (1 source) Drug therapy finding; Translations: [Hormone replacement therapy] 05-03-2024 Episodic Noninfectious gastroenteritis (2 sources) Non-infective enteritis and colitis; Translations: [Noninfective gastroenteritis and colitis, unspecified] Onset: 11-18-2013 Episodic Nonspecific chest pain (2 sources) Chest pain; Translations: [Chest pain, unspecified] Onset: 03-08-2015 Episodic Other acquired deformities (13 sources) Acquired spondylolisthesis; Translations: [Spondylolisthesis, site unspecified] Onset: 01-26-2023 01-26-2023 Episodic Other connective tissue disease (2 sources) Pain in left lower limb; Translations: [Pain in left leg] Onset: 03-31-2016 Episodic Other connective tissue disease (13 sources) Muscle pain; Translations: [Myalgia, unspecified site] Onset: 01-26-2023 01-26-2023 Episodic Other connective tissue disease (10 sources) Pain in left foot; Translations: [Pain [...] Onset: 03-08-2015 Episodic Other nervous system disorders (13 sources) Skin sensation disturbance; Translations: [Unspecified disturbances [...] Spondylosis; intervertebral disc disorders; other back problems (15 sources) Low back pain; Translations: [Low back pain, unspecified] Onset: 01-26-2023 01-26-2023 Episodic Sprains and strains (2 sources) Lumbar sprain; Translations: [Sprain of other parts of lumbar spine and pelvis, initial encounter] Onset: 12-27-2018 Episodic Superficial injury; contusion (20 sources) Contusion of hip; Translations: [Contusion of left hip, initial encounter] Onset: 06-01-2024 Resolved: 03-29-2021 05-17-2024 Episodic Unclassified (1 source) LOW BACK PAIN, [...] Range Facility Basophils Auto (Bld) [#/Vol] on 09-06-2024 Basophils (Bld) [#/Vol] Automated basophil count 0.0-0.1 [facility] Basophils/100 WBC Auto (Bld) on 09-06-2024 Basophils/100 WBC (Bld) Automated basophil % 0.2-2.0 [facility] Eosinophils/100 WBC Auto (Bl d)on 09-06-2024 Eosinophils/100 WBC (Bld) Automated eosinophil % 0.9-7.0 [facility] Erythrocyte distribution wid th Auto (RBC) [Ratio]on 09-06-2024 Erythrocyte distribution width (RBC) [Ratio] Erythrocyte distribution width [Ratio] by Automated count 11.0-15.0 [facility] Estimated glomerular filtrat ion rate (GFR) non- Americanon 09-06-2024 GFR/1.73 sq M.predicted among non-blacks MDRD (S/P/Bld) [Vol rate/Area] Estimated glomerular filtration rate (GFR) non- Low >=60 mL/min/1.73m 2 [facility] Hematocrit Auto (Bld) [Volum e fraction]on 09-06-2024 Hematocrit (Bld) [Volume fraction] Hematocrit [Volume Fraction] of Blood by Automated count Low 36.0-48.0 [facility] Hemoglobin [Mass/volume] in Bloodon 09-06-2024 Hemoglobin (Bld) [Mass/Vol] Hemoglobin [Mass/volume] in Blood Low 12.0-16.0 [facility] Laboratory - Chemistry and C hemistry - challengeon 09-06-2024 Calcium [Mass/Vol] 8.1 mg/dL Low 8.5-10.1 [facility] Chloride [Moles/Vol] 111 mmol/L High 98-107 [facility] CO2 [Moles/Vol] 27.9 mmol/L 21.0-32.0 [facility] Creatinine [Mass/Vol] 0.97 mg/dL 0.55-1.02 [facility] GFR/1.73 sq M.predicted MDRD (S/P/Bld) [Vol rate/Area] mL/min/{1.73_m2} >=60 mL/min/1.73m 2 [facility] Glucose [Mass/Vol] 95 mg/dL 74-106 [facility] Potassium [Moles/Vol] 3.2 mmol/L Low 3.5-5.1 [facility] Sodium [Moles/Vol] 146 mmol/L High 136-145 [facility] Urea nitrogen [Mass/Vol] 11.0 mg/dL 7.0-18.0 [facility] Urea nitrogen/Creatinine [Mass ratio] 11.3 mg/mg [facility] Laboratory - Hematology and Cell countson 09-06-2024 Immature granulocytes/100 WBC (Bld) 0.6 % High 0.0-0.5 [facility] Leukocytes [#/volume] correc bill for nucleated erythrocytes in Blood by Automated counon 09-06-2024 WBC corrected for nucl RBC Auto (Bld) [#/Vol] Leukocytes [#/volume] corrected for nucleated erythrocytes in Blood by Automated coun Low 4.0-11.0 [facility] Lymphocytes Auto (Bld) [#/Vo l]on 09-06-2024 Lymphocytes (Bld) [#/Vol] Lymphocytes [#/volume] in Blood by Automated count 1.2-3.8 [facility] Lymphocytes/100 WBC Auto (Bl d)on 09-06-2024 Lymphocytes/100 WBC (Bld) Lymphocytes/100 leukocytes in Blood by Automated count 20.5-60.0 [facility] MCH Auto (RBC) [Entitic mass ]on 09-06-2024 MCH (RBC) [Entitic mass] MCH [Entitic mass] by Automated count 26.7-34.0 [facility] MCHC Auto (RBC) [Mass/Vol]on 09-06-2024 MCHC (RBC) [Mass/Vol] MCHC [Mass/volume] by Automated count 29.9-35.2 [facility] MCV Auto (RBC) [Entitic vol] on 09-06-2024 MCV (RBC) [Entitic vol] MCV [Entitic volume] by Automated count 81.0-99.0 [facility] Monocytes Auto (Bld) [#/Vol] on 09-06-2024 Monocytes (Bld) [#/Vol] Automated blood monocyte count Low 0.3-0.8 [facility] Monocytes/100 WBC Auto (Bld) on 09-06-2024 Monocytes/100 WBC (Bld) Automated monocyte % 1.7-12.0 [facility] Neutrophils Auto (Bld) [#/Vo l]on 09-06-2024 Neutrophils (Bld) [#/Vol] Neutrophils [#/volume] in Blood by Automated count 1.4-6.5 [facility] Neutrophils/100 WBC Auto (Bl d)on 09-06-2024 Neutrophils/100 WBC (Bld) Automated neutrophil % 43.0-75.0 [facility] No Panel Informationon 09-06 Eosinophils # (Auto) 0.1 10 3/uL 0.0-0.7 [facility] Immature Granulocyte # (Auto) 0.02 10 3/uL 0.00-0.03 [facility] Platelet mean volume Auto (B ld) [Entitic vol]on 09-06-2024 Platelet mean volume (Bld) [Entitic vol] Platelet mean volume [Entitic volume] in Blood by Automated count 9.5-13.5 [facility] Platelets Auto (Bld) [#/Vol] on 09-06-2024 Platelets (Bld) [#/Vol] Platelets [#/volume] in Blood by Automated count 150-450 [facility] RBC Auto (Bld) [#/Vol]on RBC (Bld) [#/Vol] Erythrocytes [#/volume] in Blood by Automated count Low 4.20-5.40 [facility] Serum or plasma anion gap de terminationon 09-06-2024 Anion gap [Moles/Vol] Serum or plasma anion gap determination [facility] Basophils Auto (Bld) [#/Vol] on 09-05-2024 Basophils (Bld) [#/Vol] Automated basophil count 0.0-0.1 [facility] Basophils/100 WBC Auto (Bld) on 09-05-2024 Basophils/100 WBC (Bld) Automated basophil % 0.2-2.0 [facility] Eosinophils/100 WBC Auto (Bl d)on 09-05-2024 Eosinophils/100 WBC (Bld) Automated eosinophil % 0.9-7.0 [facility] Erythrocyte distribution wid th Auto (RBC) [Ratio]on 09-05-2024 Erythrocyte distribution width (RBC) [Ratio] Erythrocyte distribution width [Ratio] by Automated count 11.0-15.0 [facility] Estimated glomerular filtrat ion rate (GFR) non- Americanon 09-05-2024 GFR/1.73 sq M.predicted among non-blacks MDRD (S/P/Bld) [Vol rate/Area] Estimated glomerular filtration rate (GFR) non- Low >=60 mL/min/1.73m 2 [facility] Globulin Calc (S) [Mass/Vol] on 09-05-2024 Globulin (S) [Mass/Vol] Serum globulin measurement by calculation (mass/volume) [facility] Hematocrit Auto (Bld) [Volum e fraction]on 09-05-2024 Hematocrit (Bld) [Volume fraction] Hematocrit [Volume Fraction] of Blood by Automated count Low 36.0-48.0 [facility] Hemoglobin [Mass/volume] in Bloodon 09-05-2024 Hemoglobin (Bld) [Mass/Vol] Hemoglobin [Mass/volume] in Blood Low 12.0-16.0 [facility] Laboratory - Chemistry and C hemistry - challengeon 09-05-2024 Lactate [Moles/Vol] 0.6 mmol/L 0.4-2.0 [facility] Bilirubin Ql (U) Negative NEGATIVE [facility] Glucose (U) [Mass/Vol] Negative NEGATIVE [facility] Ketones Ql (U) Negative NEGATIVE [facility] pH (U) 7.5 [pH] 5.0-9.0 [facility] Specific gravity (U) [Rel density] 1.015 1.005-1.025 [facility] Urobilinogen Qn (U) 2.0 {Avery'U}/dL Abnormal 0.2-1.0 [facility] Albumin [Mass/Vol] 3.5 g/dL 3.4-5.0 [facility] ALP [Catalytic activity/Vol] 49 U/L 46-116 [facility] ALT [Catalytic activity/Vol] 14 U/L 14-59 [facility] AST [Catalytic activity/Vol] 17 U/L 15-37 [facility] Bilirubin [Mass/Vol] 0.4 mg/dL 0.2-1.0 [facility] Calcium [Mass/Vol] 8.7 mg/dL 8.5-10.1 [facility] Chloride [Moles/Vol] 108 mmol/L High 98-107 [facility] CO2 [Moles/Vol] 28.7 mmol/L 21.0-32.0 [facility] Creatinine [Mass/Vol] 1.03 mg/dL High 0.55-1.02 [facility] GFR/1.73 sq M.predicted MDRD (S/P/Bld) [Vol rate/Area] mL/min/{1.73_m2} >=60 mL/min/1.73m 2 [facility] Glucose [Mass/Vol] 101 mg/dL 74-106 [facility] Potassium [Moles/Vol] 3.3 mmol/L Low 3.5-5.1 [facility] Protein [Mass/Vol] 6.6 g/dL 6.4-8.2 [facility] Sodium [Moles/Vol] 143 mmol/L 136-145 [facility] Urea nitrogen [Mass/Vol] 12.0 mg/dL 7.0-18.0 [facility] Urea nitrogen/Creatinine [Mass ratio] 11.7 mg/mg [facility] Laboratory - Hematology and Cell countson 09-05-2024 ESR (Bld) [Velocity] 6 mm/h <=30 [facility] Immature granulocytes/100 WBC (Bld) 0.5 % 0.0-0.5 [facility] Laboratory - Microbiology an d Antimicrobial susceptibilityon 09-05-2024 S. pyogenes Ag Ql (Unsp spec) Negative [facility] SARS-CoV-2 (COVID-19) RNA MARIO+probe Ql (Unsp spec) Negative NEGATIVE [facility] Comment on above: This test has not be en FDA cleared or approved, but has beenauthorized by the FDA under an Emergency Use Authorization(EUA) for use by authorized laboratories certified underIA that meet the requirements to perform moderate or highcomplexity testing. This test has been authorized only forthe detection of proteins from SARS-CoV-2, not for any otherviruses or pathogens. The emergency use of this test isauthorized for the duration of the declaration thatcircumstances exist justifying the authorization ofemergency use of in vitro diagnostic tests for detectionand/or diagnosis of Covid-19 under section 564(b)(1) of theAct, 21 U.S.C. 360bbb-3(b)(1), unless the declaration isterminated or authorization is revoked sooner. Laboratory - Specimen inform ationon 09-05-2024 Appearance (U) CLEAR CLEAR [facility] Color (U) YELLOW YELLOW [facility] Laboratory - Urinalysison Leukocyte esterase Test strip Ql (U) Negative NEGATIVE [facility] Nitrite Ql (U) Negative NEGATIVE [facility] Protein Ql (U) Negative NEG/TRACE [facility] Leukocytes [#/volume] correc bill for nucleated erythrocytes in Blood by Automated counon 09-05-2024 WBC corrected for nucl RBC Auto (Bld) [#/Vol] Leukocytes [#/volume] corrected for nucleated erythrocytes in Blood by Automated coun 4.0-11.0 [facility] Lymphocytes Auto (Bld) [#/Vo l]on 09-05-2024 Lymphocytes (Bld) [#/Vol] Lymphocytes [#/volume] in Blood by Automated count 1.2-3.8 [facility] Lymphocytes/100 WBC Auto (Bl d)on 09-05-2024 Lymphocytes/100 WBC (Bld) Lymphocytes/100 leukocytes in Blood by Automated count 20.5-60.0 [facility] MCH Auto (RBC) [Entitic mass ]on 09-05-2024 MCH (RBC) [Entitic mass] MCH [Entitic mass] by Automated count 26.7-34.0 [facility] MCHC Auto (RBC) [Mass/Vol]on 09-05-2024 MCHC (RBC) [Mass/Vol] MCHC [Mass/volume] by Automated count 29.9-35.2 [facility] MCV Auto (RBC) [Entitic vol] on 09-05-2024 MCV (RBC) [Entitic vol] MCV [Entitic volume] by Automated count 81.0-99.0 [facility] Monocytes Auto (Bld) [#/Vol] on 09-05-2024 Monocytes (Bld) [#/Vol] Automated blood monocyte count 0.3-0.8 [facility] Monocytes/100 WBC Auto (Bld) on 09-05-2024 Monocytes/100 WBC (Bld) Automated monocyte % 1.7-12.0 [facility] Neutrophils Auto (Bld) [#/Vo l]on 09-05-2024 Neutrophils (Bld) [#/Vol] Neutrophils [#/volume] in Blood by Automated count 1.4-6.5 [facility] Neutrophils/100 WBC Auto (Bl d)on 09-05-2024 Neutrophils/100 WBC (Bld) Automated neutrophil % 43.0-75.0 [facility] No Panel Informationon 09-05 C-Reactive Protein, Quantitative <0.50 mg/dL <=0.50 [facility] Troponin I High Sensitivity 34.8 pg/mL 4.0-51.3 [facility] Comment on above: CUT-OFF POINTS HAVE BEEN ESTABLISHED BASED ON THE FOURTHUNIVERSAL DEFINITION OF MYOCARDIAL INFARCTION. THE UPPERREFERENCE LIMIT (URL) OF TROPONIN, DEFINED THE 99THPERCENTILE OF cTnI DISTRIBUTION IN A REFERENCE POPULATION,HAS BEEN CONFIRMED THE DECISION THRESHOLD FOR MIDIAGNOSIS.99TH PERCENTILE = 51.4 PG/MLNOTE: HIGH-SENSITIVITY TROPONIN ASSAY IS NOT INTENDED TO BEUSED IN ISOLATION BUT SHOULD BE INTERPRETED IN CONJUNCTIONWITH OTHER DIAGNOSTIC AND CLINICAL INFORMATION. Urine Microscopic Review NO [facility] Urine Occult Blood Negative NEGATIVE [facility] Eosinophils # (Auto) 0.1 10 3/uL 0.0-0.7 [facility] Immature Granulocyte # (Auto) 0.03 10 3/uL 0.00-0.03 [facility] Bedside Influenza Type A Antigen Negative [facility] Comment on above: Negative for Flu A p rotein antigen. Infection due to Flu Acannot be ruled out. Flu A antigen in the sample may bebelow the detection limit of the test. Bedside Influenza Type B Antigen Negative [facility] Comment on above: Negative for Flu B p rotein antigen. Infection due to Flu Bcannot be ruled out. Flu B antigen in the sample may bebelow the detection limit of the test. Platelet mean volume Auto (B ld) [Entitic vol]on 09-05-2024 Platelet mean volume (Bld) [Entitic vol] Platelet mean volume [Entitic volume] in Blood by Automated count 9.5-13.5 [facility] Platelets Auto (Bld) [#/Vol] on 09-05-2024 Platelets (Bld) [#/Vol] Platelets [#/volume] in Blood by Automated count 150-450 [facility] RBC Auto (Bld) [#/Vol]on RBC (Bld) [#/Vol] Erythrocytes [#/volume] in Blood by Automated count Low 4.20-5.40 [facility] Serum or plasma albumin/glob ulin mass ratioon 09-05-2024 Albumin/Globulin [Mass ratio] Serum or plasma albumin/globulin mass ratio [facility] Serum or plasma anion gap de terminationon 09-05-2024 Anion gap [Moles/Vol] Serum or plasma anion gap determination [facility] Strep A Culture Onlyon 09-05 Strep A Culture Only No Group A Beta Streptococcus Isolated 2 Days PERFORMED BY: [facility] [address] [place] [address] PATHOLOGIST MANAGER DAIRY LESLEY HONEYCUTT M.D. Normal [facility] Comment on above: Performed By: #### C USTA #### [address] Streptococcus pyogenes cultu reOrdered By: Anita Garcia on 09-05-2024 S. pyogenes Org specific cx Ql (Unsp spec) Streptococcus pyogenes culture [facility] MM screening mammo BI w/CADo n 06-23-2024 MM screening mammo BI w/CAD [facility] Main [place] [address] [place] [address] Mammography Report Signed Patient: Gina Pierre MR#: [id number] : 1940 Acct:[id number] Age/Sex: 83 / F ADM Date: 06/23/24 Loc: [place] Room: Type: [facility] Attending Dr: Aamir Dao DO Copies to: DO Aamir Franz DO Ordering Provider: Aamir Dao DO Date of Service: 06/23/24 MM/MM [...] Neeraj Wilson M.D.06/23/2024 1:11 PM Dictation Location: [facility] Transcribed By: ISAURA 06/23/24 1311 Dictated By: Neeraj Wilson II, MD 06/23/24 1308 Signed By: 06/23/24 1311 Normal [facility] Basophils Auto (Bld) [#/Vol] on 05-25-2024 Basophils (Bld) [#/Vol] 0.0 10 3/uL 0.0-0.1 [facility] Basophils (Bld) [#/Vol] Automated basophil count 0.0-0.1 [facility] Basophils/100 WBC Auto (Bld) on 05-25-2024 Basophils/100 WBC (Bld) 0.8 % 0.2-2.0 [facility] Basophils/100 WBC (Bld) Automated basophil % 0.2-2.0 [facility] Eosinophils/100 WBC Auto (Bl d)on 05-25-2024 Eosinophils/100 WBC (Bld) 1.9 % 0.9-7.0 [facility] Eosinophils/100 WBC (Bld) Automated eosinophil % 0.9-7.0 [facility] Erythrocyte distribution wid th Auto (RBC) [Ratio]on 05-25-2024 Erythrocyte distribution width (RBC) [Ratio] 13.7 % 11.0-15.0 [facility] Erythrocyte distribution width (RBC) [Ratio] Erythrocyte distribution width [Ratio] by Automated count 11.0-15.0 [facility] Estimated glomerular filtrat ion rate (GFR) non- Americanon 05-25-2024 GFR/1.73 sq M.predicted among non-blacks MDRD (S/P/Bld) [Vol rate/Area] 45 mL/min/{1.73_m2} Low >=60 [facility] GFR/1.73 sq M.predicted among non-blacks MDRD (S/P/Bld) [Vol rate/Area] Estimated glomerular filtration rate (GFR) non- Low >=60 [facility] Globulin Calc (S) [Mass/Vol] on 05-25-2024 Globulin (S) [Mass/Vol] 2.8 g/dL [facility] Globulin (S) [Mass/Vol] Serum globulin measurement by calculation (mass/volume) [facility] Hematocrit Auto (Bld) [Volum e fraction]on 05-25-2024 Hematocrit (Bld) [Volume fraction] 36.1 % 36.0-48.0 [facility] Hematocrit (Bld) [Volume fraction] Hematocrit [Volume Fraction] of Blood by Automated count 36.0-48.0 [facility] Hemoglobin [Mass/volume] in Bloodon 05-25-2024 Hemoglobin (Bld) [Mass/Vol] 11.7 g/dL Low 12.0-16.0 [facility] Hemoglobin (Bld) [Mass/Vol] Hemoglobin [Mass/volume] in Blood Low 12.0-16.0 [facility] Iron binding capacity [Mass/ volume] in Serum or Plasmaon 05-25-2024 Iron binding capacity [Mass/Vol] 410.0 ug/dL 250.0-450.0 [facility] Iron binding capacity [Mass/Vol] Iron binding capacity [Mass/volume] in Serum or Plasma 250.0-450.0 [facility] Iron saturation [Mass Fracti on] in Serum or Plasmaon 05-25-2024 Iron saturation [Mass fraction] 33.2 % [facility] Iron saturation [Mass fraction] Iron saturation [Mass Fraction] in Serum or Plasma [facility] Laboratory - Chemistry and C hemistry - challengeon 05-25-2024 Albumin [Mass/Vol] 3.3 g/dL Low 3.4-5.0 [facility] ALP [Catalytic activity/Vol] 47 U/L 46-116 [facility] ALT [Catalytic activity/Vol] 17 U/L 14-59 [facility] AST [Catalytic activity/Vol] 21 U/L 15-37 [facility] Bilirubin [Mass/Vol] 0.6 mg/dL 0.2-1.0 [facility] Calcium [Mass/Vol] 8.7 mg/dL 8.5-10.1 [facility] Chloride [Moles/Vol] 104 mmol/L 98-107 [facility] CO2 [Moles/Vol] 28.8 mmol/L 21.0-32.0 [facility] Cobalamin (Vitamin B12) [Mass/Vol] 963 pg/mL 232-1245 [facility] Comment on above: Performed at: [address] [id number] Director: Nicanor Omalley PhD, Phone: [phone] Creatinine [Mass/Vol] 1.15 mg/dL High 0.55-1.02 [facility] Ferritin [Mass/Vol] 44.0 ng/mL 8.0-252.0 [facility] GFR/1.73 sq M.predicted MDRD (S/P/Bld) [Vol rate/Area] 55 mL/min/{1.73_m2} Low >=60 [facility] Glucose [Mass/Vol] 111 mg/dL High 74-106 [facility] Iron [Mass/Vol] 136.0 ug/dL 50.0-170.0 [facility] Potassium [Moles/Vol] 3.7 mmol/L 3.5-5.1 [facility] Protein [Mass/Vol] 6.1 g/dL Low 6.4-8.2 [facility] Sodium [Moles/Vol] 140 mmol/L 136-145 [facility] TSH Qn 2.056 m[IU]/L 0.358-3.740 [facility] Urea nitrogen [Mass/Vol] 20.0 mg/dL High 7.0-18.0 [facility] Urea nitrogen/Creatinine [Mass ratio] 17.4 mg/mg [facility] Laboratory - Hematology and Cell countson 05-25-2024 Immature granulocytes/100 WBC (Bld) 0.8 % High 0.0-0.5 [facility] Leukocytes [#/volume] correc bill for nucleated erythrocytes in Blood by Automated counon 05-25-2024 WBC corrected for nucl RBC Auto (Bld) [#/Vol] 4.8 10 3/uL 4.0-11.0 [facility] WBC corrected for nucl RBC Auto (Bld) [#/Vol] Leukocytes [#/volume] corrected for nucleated erythrocytes in Blood by Automated coun 4.0-11.0 [facility] Lymphocytes Auto (Bld) [#/Vo l]on 05-25-2024 Lymphocytes (Bld) [#/Vol] 1.1 10 3/uL Low 1.2-3.8 [facility] Lymphocytes (Bld) [#/Vol] Lymphocytes [#/volume] in Blood by Automated count Low 1.2-3.8 [facility] Lymphocytes/100 WBC Auto (Bl d)on 05-25-2024 Lymphocytes/100 WBC (Bld) 23.3 % 20.5-60.0 [facility] Lymphocytes/100 WBC (Bld) Lymphocytes/100 leukocytes in Blood by Automated count 20.5-60.0 [facility] MCH Auto (RBC) [Entitic mass ]on 05-25-2024 MCH (RBC) [Entitic mass] 30.9 pg 26.7-34.0 [facility] MCH (RBC) [Entitic mass] MCH [Entitic mass] by Automated count 26.7-34.0 [facility] MCHC Auto (RBC) [Mass/Vol]on 05-25-2024 MCHC (RBC) [Mass/Vol] 32.4 g/dL 29.9-35.2 [facility] MCHC (RBC) [Mass/Vol] MCHC [Mass/volume] by Automated count 29.9-35.2 [facility] MCV Auto (RBC) [Entitic vol] on 05-25-2024 MCV (RBC) [Entitic vol] 95.3 fL 81.0-99.0 [facility] MCV (RBC) [Entitic vol] MCV [Entitic volume] by Automated count 81.0-99.0 [facility] Monocytes Auto (Bld) [#/Vol] on 05-25-2024 Monocytes (Bld) [#/Vol] 0.3 10 3/uL 0.3-0.8 [facility] Monocytes (Bld) [#/Vol] Automated blood monocyte count 0.3-0.8 [facility] Monocytes/100 WBC Auto (Bld) on 05-25-2024 Monocytes/100 WBC (Bld) 7.0 % 1.7-12.0 [facility] Monocytes/100 WBC (Bld) Automated monocyte % 1.7-12.0 [facility] Neutrophils Auto (Bld) [#/Vo l]on 05-25-2024 Neutrophils (Bld) [#/Vol] 3.2 10 3/uL 1.4-6.5 [facility] Neutrophils (Bld) [#/Vol] Neutrophils [#/volume] in Blood by Automated count 1.4-6.5 [facility] Neutrophils/100 WBC Auto (Bl d)on 05-25-2024 Neutrophils/100 WBC (Bld) 66.2 % 43.0-75.0 [facility] Neutrophils/100 WBC (Bld) Automated neutrophil % 43.0-75.0 [facility] No Panel Informationon 05-25 Eosinophils # (Auto) 0.1 10 3/uL 0.0-0.7 [facility] Folate 27.00 ng/mL 8.60-58.90 [facility] Immature Granulocyte # (Auto) 0.04 10 3/uL High 0.00-0.03 [facility] Platelet mean volume Auto (B ld) [Entitic vol]on 05-25-2024 Platelet mean volume (Bld) [Entitic vol] 10.8 fL 9.5-13.5 [facility] Platelet mean volume (Bld) [Entitic vol] Platelet mean volume [Entitic volume] in Blood by Automated count 9.5-13.5 [facility] Platelets Auto (Bld) [#/Vol] on 05-25-2024 Platelets (Bld) [#/Vol] 186 10 3/uL 150-450 [facility] Platelets (Bld) [#/Vol] Platelets [#/volume] in Blood by Automated count 150-450 [facility] RBC Auto (Bld) [#/Vol]on RBC (Bld) [#/Vol] 3.79 10 6/uL Low 4.20-5.40 [facility] RBC (Bld) [#/Vol] Erythrocytes [#/volume] in Blood by Automated count Low 4.20-5.40 [facility] Serum or plasma albumin/glob ulin mass ratioon 05-25-2024 Albumin/Globulin [Mass ratio] 1.2 {ratio} [facility] Albumin/Globulin [Mass ratio] Serum or plasma albumin/globulin mass ratio [facility] Serum or plasma anion gap de terminationon 05-25-2024 Anion gap [Moles/Vol] 10.9 mmol/L [facility] Anion gap [Moles/Vol] Serum or plasma anion gap determination [facility] Basophils Auto (Bld) [#/Vol] on 11-25-2023 Basophils (Bld) [#/Vol] 0.0 10 3/uL 0.0-0.1 [facility] Basophils/100 WBC Auto (Bld) on 11-25-2023 Basophils/100 WBC (Bld) 0.4 % 0.2-2.0 [facility] Eosinophils/100 WBC Auto (Bl d)on 11-25-2023 Eosinophils/100 WBC (Bld) 2.9 % 0.9-7.0 [facility] Erythrocyte distribution wid th Auto (RBC) [Ratio]on 11-25-2023 Erythrocyte distribution width (RBC) [Ratio] 13.2 % 11.0-15.0 [facility] Hematocrit Auto (Bld) [Volum e fraction]on 11-25-2023 Hematocrit (Bld) [Volume fraction] 36.7 % 36.0-48.0 [facility] Hemoglobin [Mass/volume] in Bloodon 11-25-2023 Hemoglobin (Bld) [Mass/Vol] 11.5 g/dL 12.0-16.0 [facility] Laboratory - Chemistry and C hemistry - challengeon 11-25-2023 Ferritin [Mass/Vol] 27.0 ng/mL 8.0-252.0 [facility] - Hematology and Cell countson 11-25-2023 Immature granulocytes/100 WBC (Bld) 0.4 % 0.0-0.5 [facility] Leukocytes [#/volume] correc bill for nucleated erythrocytes in Blood by Automated counon 11-25-2023 WBC corrected for nucl RBC Auto (Bld) [#/Vol] 4.8 10 3/uL 4.0-11.0 [facility] Lymphocytes Auto (Bld) [#/Vo l]on 11-25-2023 Lymphocytes (Bld) [#/Vol] 1.3 10 3/uL 1.2-3.8 [facility] Lymphocytes/100 WBC Auto (Bl d)on 11-25-2023 Lymphocytes/100 WBC (Bld) 27.7 % 20.5-60.0 [facility] MCH Auto (RBC) [Entitic mass ]on 11-25-2023 MCH (RBC) [Entitic mass] 29.9 pg 26.7-34.0 [facility] MCHC Auto (RBC) [Mass/Vol]on 11-25-2023 MCHC (RBC) [Mass/Vol] 31.3 g/dL 29.9-35.2 [facility] MCV Auto (RBC) [Entitic vol] on 11-25-2023 MCV (RBC) [Entitic vol] 95.3 fL 81.0-99.0 [facility] Monocytes Auto (Bld) [#/Vol] on 11-25-2023 Monocytes (Bld) [#/Vol] 0.4 10 3/uL 0.3-0.8 [facility] Monocytes/100 WBC Auto (Bld) on 11-25-2023 Monocytes/100 WBC (Bld) 7.8 % 1.7-12.0 [facility] Neutrophils Auto (Bld) [#/Vo l]on 11-25-2023 Neutrophils (Bld) [#/Vol] 2.9 10 3/uL 1.4-6.5 [facility] Neutrophils/100 WBC Auto (Bl d)on 11-25-2023 Neutrophils/100 WBC (Bld) 60.8 % 43.0-75.0 [facility] No Panel Informationon 11-24 Eosinophils # (Auto) 0.1 10 3/uL 0.0-0.7 [facility] Folate 24.20 ng/mL 8.60-58.90 [facility] Immature Granulocyte # (Auto) 0.02 10 3/uL 0.00-0.03 [facility] Vitamin B12 Level >6000.0 pg/mL 193.0-986.0 [facility] Platelet mean volume Auto (B ld) [Entitic vol]on 11-25-2023 Platelet mean volume (Bld) [Entitic vol] 10.5 fL 9.5-13.5 [facility] Platelets Auto (Bld) [#/Vol] on 11-25-2023 Platelets (Bld) [#/Vol] 187 10 3/uL 150-450 [facility] RBC Auto (Bld) [#/Vol]on RBC (Bld) [#/Vol] 3.85 10 6/uL 4.20-5.40 [facility] Quick Fluon 08-28-2023 FLUAV Ab CF (S) [Titer] Negative [facility] [employer] Other FLUBV Ab CF (S) [Titer] Negative [facility] [employer] Other CBC AUTO DIFFon 02-03-2023 BASO # 0.0 103/ul Normal 0.0-0.1 [facility] Comment on above: Performed By: #### L IVNANCY VARGAS LIPA, EDSON #### [facility] [address] [place] [address] Dr. Julia Velasquez Basophils/100 WBC (Bld) 0.4 % Normal 0.2-2.0 [facility] Comment on above: Performed By: #### L IVSAM BMP, LIPA, EDSON #### [facility] [address] [place] [address] Dr. Julia Velasquez EO # 0.3 103/ul Normal 0.0-0.7 [facility] Comment on above: Performed By: #### L IVER, BMP, LIPA, EDSON #### [facility] [address] [address] [address] Julia Velasquez Eosinophils/100 WBC (Bld) 5.5 % Normal 0.9-7.0 [facility] Comment on above: Performed By: #### L IVERNANCY, LIPA, EDSON #### [facility] [address] [place] [address] Dr. Julia Velasquez Erythrocyte distribution width (RBC) [Ratio] 14.1 % Normal 11.0-15.0 [facility] Comment on above: Performed By: #### L IVER, BMP, LIPA, EDSON #### [facility] [address] [place] [address] Dr. Julia Velasquez Hematocrit (Bld) [Volume fraction] 36.4 % Normal 36.0-48.0 [facility] Comment on above: Performed By: #### L IVER, BMP, LIPA, EDSON #### [facility] [address] [place] [address] Dr. Julia Velasquez Hemoglobin (Bld) [Mass/Vol] 11.4 g/dL Critically low 12.0-16.0 [facility] Comment on above: Performed By: #### L IVER, BMP, LIPA, EDSON #### [facility] [address] [place] [address] Dr. Julia Velasquez IG # 0.02 10e3/ul Normal 0.00-0.03 [facility] Comment on above: Performed By: #### L IVER, BMP, LIPA, EDSON #### [facility] [address] [place] [address] Dr. Julia Velasquez IG % 0.4 % Normal 0.0-0.5 [facility] Comment on above: Performed By: #### L IVER, BMP, LIPA, EDSON #### [facility] [address] [place] [address] Dr. Julia Velasquez LYMPH # 1.4 103/ul Normal 1.2-3.8 [facility] Comment on above: Performed By: #### L IVER, BMP, LIPA, EDSON #### [facility] [address] [place] [address] Dr. Julia Velasquez Lymphocytes/100 WBC (Bld) 28.4 % Normal 20.5-60.0 [facility] Comment on above: Performed By: #### L IVER, BMP, LIPA, EDSNO #### [facility] [address] [place] [address] Dr. Julia Velasquez MANUAL DIFF REQ NO Normal [facility] Comment on above: Performed By: #### L IVER, BMP, LIPA, EDSON #### [facility] [address] [place] [address] Dr. Julia Velasquez MCH (RBC) [Entitic mass] 30.0 pg Normal 26.7-34.0 [facility] Comment on above: Performed By: #### L IVER, BMP, LIPA, EDSON #### [facility] [address] [place] [address] Dr. Julia Velasquez MCHC (RBC) [Mass/Vol] 31.3 g/dL Normal 29.9-35.2 [facility] Comment on above: Performed By: #### L IVER, BMP, LIPA, EDSON #### [facility] [address] [place] [address] Dr. Julia Velasquez MCV (RBC) [Entitic vol] 95.8 fL Normal 81.0-99.0 [facility] Comment on above: Performed By: #### L IVER, BMP, LIPA, EDSON #### [facility] [address] [place] [address] Dr. Julia Velasquez MONO # 0.4 103/ul Normal 0.3-0.8 [facility] Comment on above: Performed By: #### L IVER, BMP, LIPA, EDSON #### [facility] [address] [place] [address] Dr. Julia Velasquez Monocytes/100 WBC (Bld) 7.8 % Normal 1.7-12.0 [facility] Comment on above: Performed By: #### L IVER, BMP, LIPA, EDSON #### [facility] [address] [place] [address] Dr. Julia Velasquez NEUT # 2.8 103/ul Normal 1.4-6.5 [facility] Comment on above: Performed By: #### L IVER, BMP, LIPA, EDSON #### [facility] [address] [place] [address] Dr. Julia Velasquez Neutrophils/100 WBC (Bld) 57.5 % Normal 43.0-75.0 [facility] Comment on above: Performed By: #### L IVER, BMP, LIPA, EDSON #### [facility] [address] [place] [address] Dr. Julia Velasquez Platelet mean volume (Bld) [Entitic vol] 10.6 fL Normal 9.5-13.5 [facility] Comment on above: Performed By: #### L IVER, BMP, LIPA, EDSON #### [facility] [address] [place] [address] Dr. Julia Velasquez PLT 212 103/ul Normal 150-450 [facility] Comment on above: Performed By: #### L IVER, BMP, LIPA, EDSON #### [facility] [address] [place] [address] Dr. Julia Velasquez RBC 3.80 106/ul Critically low 4.20-5.40 [facility] Comment on above: Performed By: #### L IVER, BMP, LIPA, EDSON #### [facility] [address] [place] [address] Dr. Julia Velasquez WBC 4.9 103/ul Normal 4.0-11.0 [facility] Comment on above: Performed By: #### L IVER, BMP, LIPA, EDSON #### [facility] [address] [place] [address] Dr. Julia Velasquez FERRITINon 02-03-2023 Ferritin [Mass/Vol] 63.0 ng/mL Normal 8.0-252.0 [facility] Comment on above: Performed By: #### L IVER, BMP, LIPA, EDSON #### [facility] [address] [place] [address] Dr. Julia Velasquez IRON AND TIBCon 02-03-2023 % SATURATION 25.5 % Normal [facility] Comment on above: Performed By: #### L IVER, BMP, LIPA, EDSON #### [facility] [address] [place] [address] Dr. Julia Velasquez Iron [Mass/Vol] 100.0 ug/dL Normal 50.0-170.0 [facility] Comment on above: Performed By: #### L IVER, BMP, LIPA, EDSON #### [facility] [address] [place] [address] Dr. Julia Velasquez TIBC DIRECT 392.0 ug/dL Normal 250.0-450.0 [facility] Comment on above: Performed By: #### L NANCY MONDRAGON LIPA, AMY #### [facility] [address] [address] [address] Julia Velasquez PROF CHEM 8 (BAS METB)on Anion gap [Moles/Vol] 13.0 mmol/L Normal [facility] Comment on above: Performed By: #### B MP #### [facility] [address] [address] [address] Julia Velasquez Calcium [Mass/Vol] 8.9 mg/dL Normal 8.5-10.1 [facility] Comment on above: Performed By: #### B MP #### [facility] [address] [address] [address] Julia Velasquez Chloride [Moles/Vol] 106 mmol/L Normal 98-107 [facility] Comment on above: Performed By: #### B MP #### [facility] [address] [address] [address] Julia Velasquez CO2 [Moles/Vol] 27.7 mmol/L Normal 21.0-32.0 [facility] Comment on above: Performed By: #### B MP #### [facility] [address] [address] [address] Julia Velasquez Creatinine [Mass/Vol] 1.24 mg/dL Critically high 0.55-1.02 [facility] Comment on above: Performed By: #### B MP #### [facility] [address] [address] [address] Julia Velasquez EGFR-AF ARGENTINE 50 mL/min/1.73m2 Critically low >=60 [facility] Comment on above: Performed By: #### B MP #### [facility] [address] [address] [address] Julia Velasquez EGFR-NON AF ARGENTINE 42 mL/min/1.73m2 Critically low >=60 [facility] Comment on above: Performed By: #### B MP #### [facility] [address] [address] [address] Julia Velasquez Glucose [Mass/Vol] 99 mg/dL Normal 74-106 [facility] Comment on above: Performed By: #### B MP #### [facility] [address] [place] [address] Dr. Julia Velasquez Potassium [Moles/Vol] 3.7 mmol/L Normal 3.5-5.1 [facility] Comment on above: Performed By: #### B MP #### [facility] [address] [place] [address] Dr. Julia Velasquez Sodium [Moles/Vol] 143 mmol/L Normal 136-145 [facility] Comment on above: Performed By: #### B MP #### [facility] [address] [place] [address] Dr. Julia Velasquez Urea nitrogen [Mass/Vol] 12.0 mg/dL Normal 7.0-18.0 [facility] Comment on above: Performed By: #### B MP #### [facility] [address] [place] [address] Dr. Julia Velasquez Urea nitrogen/Creatinine [Mass ratio] 9.7 mg/mg Normal [facility] Comment on above: Performed By: #### B MP #### [facility] [address] [place] [address] Dr. Julia Velasquez UA RANDOM W/MICROSCOPICon BACTERIA TRACE Abnormal NONE SEEN [facility] Comment on above: Performed By: #### L IVER BMP, LIPA, EDSON #### [facility] [address] [place] [address] Dr. Julia Velasquez Bilirubin Ql (U) Negative Normal NEGATIVE [facility] Comment on above: Performed By: #### L IVER, BMP, LIPA, EDSON #### [facility] [address] [place] [address] Dr. Julia Velasquez CAST NONE SEEN Normal NONE SEEN [facility] Comment on above: Performed By: #### L IVER, BMP, LIPA, EDSON #### [facility] [address] [place] [address] Dr. Julia Velasquez Clarity (U) CLEAR Normal CLEAR [facility] Comment on above: Performed By: #### L IVER, BMP, LIPA, EDSON #### [facility] [address] [place] [address] Dr. Julia Velasquez Color (U) LT. YELLOW Normal YELLOW [facility] Comment on above: Performed By: #### L IVER, BMP, LIPA, EDSON #### [facility] [address] [place] [address] Dr. Julia Velasquez Crystals LM Nom (Urine sed) NONE SEEN Normal NONE SEEN [facility] Comment on above: Performed By: #### L IVER, BMP, LIPA, EDSON #### [facility] [address] [place] [address] Dr. Julia Velasquez Epithelial cells LM Ql (Urine sed) MODERATE Abnormal NONE SEEN /RARE [facility] Comment on above: Performed By: #### L IVER, BMP, LIPA, EDSON #### [facility] [address] [place] [address] Dr. Julia Velasquez Glucose Ql (U) Negative Normal NEGATIVE [facility] Comment on above: Performed By: #### L IVER, BMP, LIPA, EDSON #### [facility] [address] [place] [address] Dr. Julia Velasquez Hemoglobin Ql (U) Negative Normal NEGATIVE [facility] Comment on above: Performed By: #### L IVER, BMP, LIPA, EDSON #### [facility] [address] [place] [address] Dr. Julia Velasquez Ketones Ql (U) Negative Normal NEGATIVE [facility] Comment on above: Performed By: #### L IVER, BMP, LIPA, EDSON #### [facility] [address] [place] [address] Dr. Julia Velasquez LEUKOCYTES Negative Normal NEGATIVE [facility] Comment on above: Performed By: #### L IVER, BMP, LIPA, EDSON #### [facility] [address] [place] [address] Dr. Julia Velasquez MUCOUS NONE SEEN Normal NONE SEEN [facility] Comment on above: Performed By: #### L IVER, BMP, LIPA, EDSON #### [facility] [address] [address] [address] Julia Velasquez Nitrite Ql (U) Negative Normal NEGATIVE [facility] Comment on above: Performed By: #### L IVER, BMP, LIPA, EDSON #### [facility] [address] [address] [address] Julia Velasquez pH (U) 7.5 [pH] Normal 5-9 [facility] Comment on above: Performed By: #### L IVER, BMP, LIPA, EDSON #### [facility] [address] [address] [address] Julia Velasquez RBC 0-2 Normal 0-2 [facility] Comment on above: Performed By: #### L IVER, BMP, LIPA, EDSON #### [facility] [address] [address] [address] Julia Velasquez SPEC GRAVITY 1.010 Normal 1.005-<=1.025 [facility] Comment on above: Performed By: #### L IVER, BMP, LIPA, EDSON #### [facility] [address] [address] [address] Julia Velasquez UA PROTEIN Negative Normal NEGATIVE/ TRACE [facility] Comment on above: Performed By: #### L IVER, BMP, LIPA, EDSON #### [facility] [address] [address] [address] Julia Velasquez Urobilinogen Qn (U) 2.0 {Avery'U}/dL Abnormal 0.2 - 1. 0 [facility] Comment on above: Performed By: #### L IVER, BMP, LIPA, EDSON #### [facility] [address] [address] [address] Julia Velasquez WBC NONE SEEN Normal NONE SEEN [facility] Comment on above: Performed By: #### L IVER, BMP, LIPA, EDSON #### [facility] [address] [address] [address] Julia Velasquez VIT B12 AND FOLATEon 05-30-2 023 Cobalamin (Vitamin B12) [Mass/Vol] 199.0 pg/mL Normal 193.0-986.0 [facility] Comment on above: Performed By: #### L NANCY MONDRAGON LIPA, AMY #### [facility] [address] [address] [address] Julia Velasquez FOLATE 27.10 ng/mL Normal 8.60-58.90 [facility] Comment on above: Performed By: #### L NANCY MONDRAGON LIPA, EDSON #### [facility] [address] [address] [address] Julia Velasquez XR CHEST 2 Von [...] NANDO CARLSON Date: 2023-02-03 14:28 Normal [facility] CBC AUTO DIFFon 01-07-2023 BASO # 0.0 103/ul Normal 0.0-0.1 [facility] Comment on above: Performed By: #### L NANCY MONDRAGON LIPA, AMY #### [facility] [address] [address] [address] Julia Velasquez Basophils/100 WBC (Bld) 0.6 % Normal 0.2-2.0 [facility] Comment on above: Performed By: #### L NANCY MONDRAGON LIPA, EDSON #### [facility] [address] [address] [address] Julia Velasquez EO # 0.1 103/ul Normal 0.0-0.7 [facility] Comment on above: Performed By: #### L IVER, BMP, LIPA, EDSON #### [facility] [address] [place] [address] Dr. Julia Velasquez Eosinophils/100 WBC (Bld) 3.3 % Normal 0.9-7.0 [facility] Comment on above: Performed By: #### L IVER, BMP, LIPA, EDSON #### [facility] [address] [place] [address] Dr. Julia Velasquez Erythrocyte distribution width (RBC) [Ratio] 16.1 % Critically high 11.0-15.0 [facility] Comment on above: Performed By: #### L IVER, BMP, LIPA, EDSON #### [facility] [address] [place] [address] Dr. Julia Velasquez Hematocrit (Bld) [Volume fraction] 34.9 % Critically low 36.0-48.0 [facility] Comment on above: Performed By: #### L IVER, BMP, LIPA, EDSON #### [facility] [address] [place] [address] Dr. Julia Velasquez Hemoglobin (Bld) [Mass/Vol] 11.1 g/dL Critically low 12.0-16.0 [facility] Comment on above: Performed By: #### L IVER, BMP, LIPA, EDSON #### [facility] [address] [place] [address] Dr. Julia Velasquez IG # 0.05 10e3/ul Critically high 0.00-0.03 [facility] Comment on above: Performed By: #### L IVER, BMP, LIPA, EDSON #### [facility] [address] [place] [address] Dr. Julia Velasquez IG % 1.4 % Critically high 0.0-0.5 [facility] Comment on above: Performed By: #### L IVER, BMP, LIPA, EDSON #### [facility] [address] [place] [address] Dr. Julia Velasquez LYMPH # 1.1 103/ul Critically low 1.2-3.8 [facility] Comment on above: Performed By: #### L IVER, BMP, LIPA, EDSON #### [facility] [address] [place] [address] Dr. Julia Velasquez Lymphocytes/100 WBC (Bld) 31.6 % Normal 20.5-60.0 [facility] Comment on above: Performed By: #### L IVER, BMP, LIPA, EDSON #### [facility] [address] [place] [address] Dr. Julia Velasquez MANUAL DIFF REQ NO Normal [facility] Comment on above: Performed By: #### L IVER, BMP, LIPA, EDSON #### [facility] [address] [place] [address] Dr. Julia Velasquez MCH (RBC) [Entitic mass] 30.4 pg Normal 26.7-34.0 [facility] Comment on above: Performed By: #### L IVER, BMP, LIPA, EDSON #### [facility] [address] [place] [address] Dr. Julia Velasquez MCHC (RBC) [Mass/Vol] 31.8 g/dL Normal 29.9-35.2 [facility] Comment on above: Performed By: #### L IVER, BMP, LIPA, EDSON #### [facility] [address] [place] [address] Dr. Julia Velasquez MCV (RBC) [Entitic vol] 95.6 fL Normal 81.0-99.0 [facility] Comment on above: Performed By: #### L IVER, BMP, LIPA, EDSON #### [facility] [address] [place] [address] Dr. Julia Velasquez MONO # 0.2 103/ul Critically low 0.3-0.8 [facility] Comment on above: Performed By: #### L IVER, BMP, LIPA, EDSON #### [facility] [address] [place] [address] Dr. Julia Velasquez Monocytes/100 WBC (Bld) 6.1 % Normal 1.7-12.0 [facility] Comment on above: Performed By: #### L IVER, BMP, LIPA, EDSON #### [facility] [address] [place] [address] Dr. Julia Velasquez NEUT # 2.1 103/ul Normal 1.4-6.5 [facility] Comment on above: Performed By: #### L IVER, BMP, LIPA, EDSON #### [facility] [address] [place] [address] Dr. Julia Velasquez Neutrophils/100 WBC (Bld) 57.0 % Normal 43.0-75.0 [facility] Comment on above: Performed By: #### L IVER, BMP, LIPA, EDSON #### [facility] [address] [place] [address] Dr. Julia Velasquez Platelet mean volume (Bld) [Entitic vol] 10.4 fL Normal 9.5-13.5 [facility] Comment on above: Performed By: #### L IVER, BMP, LIPA, EDSON #### [facility] [address] [place] [address] Dr. Julia Velasquez PLT 167 103/ul Normal 150-450 [facility] Comment on above: Performed By: #### L IVER, BMP, LIPA, EDSON #### [facility] [address] [place] [address] Dr. Julia Velasquez RBC 3.65 106/ul Critically low 4.20-5.40 [facility] Comment on above: Performed By: #### L IVER, BMP, LIPA, EDSON #### [facility] [address] [place] [address] Dr. Julia Velasquez WBC 3.6 103/ul Critically low 4.0-11.0 [facility] Comment on above: Performed By: #### L IVER, BMP, LIPA, EDOSN #### [facility] [address] [place] [address] Dr. Julia Velasquez FERRITINon 01-07-2023 Ferritin [Mass/Vol] 148.0 ng/mL Normal 8.0-252.0 [facility] Comment on above: Performed By: #### L IVER, BMP, LIPA, EDSON #### [facility] [address] [place] [address] Dr. Julia Velasquez IRON AND TIBCon 01-07-2023 % SATURATION 27.1 % Normal [facility] Comment on above: Performed By: #### L IVER, BMP, LIPA, EDSON #### [facility] [address] [place] [address] Dr. Julia Velasquez Iron [Mass/Vol] 96.0 ug/dL Normal 50.0-170.0 [facility] Comment on above: Performed By: #### L IVER, BMP, LIPA, EDSON #### [facility] [address] [place] [address] Dr. Julia Velasquez TIBC DIRECT 354.0 ug/dL Normal 250.0-450.0 [facility] Comment on above: Performed By: #### L IVER, BMP, LIPA, EDSON #### [facility] [address] [place] [address] Dr. Julia Velasquez PROF CHEM 8 (BAS METB)on Anion gap [Moles/Vol] 11.8 mmol/L Normal [facility] Comment on above: Performed By: #### L IVER, BMP, LIPA, EDSON #### [facility] [address] [place] [address] Dr. Julia Velasquez Calcium [Mass/Vol] 8.3 mg/dL Critically low 8.5-10.1 [facility] Comment on above: Performed By: #### L IVER, BMP, LIPA, EDSON #### [facility] [address] [place] [address] Dr. Julia Velasquez Chloride [Moles/Vol] 108 mmol/L Critically high 98-107 [facility] Comment on above: Performed By: #### L IVER, BMP, LIPA, EDSON #### [facility] [address] [place] [address] Dr. Julia Velasquez CO2 [Moles/Vol] 27.8 mmol/L Normal 21.0-32.0 [facility] Comment on above: Performed By: #### L IVER, BMP, LIPA, EDSON #### [facility] [address] [address] [address] Julia Velasquez Creatinine [Mass/Vol] 1.00 mg/dL Normal 0.55-1.02 [facility] Comment on above: Performed By: #### L IVER, BMP, LIPA, EDSON #### [facility] [address] [place] [address] Dr. Julia Velasquez EGFR-AF ARGENTINE >60 Normal >=60 [facility] Comment on above: Performed By: #### L IVER, BMP, LIPA, EDSON #### [facility] [address] [place] [address] Dr. Julia Velasquez EGFR-NON AF ARGENTINE 53 mL/min/1.73m2 Critically low >=60 [facility] Comment on above: Performed By: #### L IVER, BMP, LIPA, EDSON #### [facility] [address] [place] [address] Dr. Julia Velasquez Glucose [Mass/Vol] 92 mg/dL Normal 74-106 [facility] Comment on above: Performed By: #### L IVER, BMP, LIPA, EDSON #### [facility] [address] [place] [address] Dr. Julia Velasquez Potassium [Moles/Vol] 3.6 mmol/L Normal 3.5-5.1 [facility] Comment on above: Performed By: #### L IVER, BMP, LIPA, EDSON #### [facility] [address] [address] [address] Julia Velasquez Sodium [Moles/Vol] 144 mmol/L Normal 136-145 [facility] Comment on above: Performed By: #### L IVER, BMP, LIPA, EDSON #### [facility] [address] [place] [address] Dr. Julia Velasquez Urea nitrogen [Mass/Vol] 8.0 mg/dL Normal 7.0-18.0 [facility] Comment on above: Performed By: #### L IVER, BMP, LIPA, EDSON #### [facility] [address] [place] [address] Dr. Julia Velasquez Urea nitrogen/Creatinine [Mass ratio] 8.0 mg/mg Normal [facility] Comment on above: Performed By: #### L IVERNANCY, LIPA, EDSON #### [facility] [address] [address] [address] Julia Velasquez RETICULOCYTEon 01-07-2023 RETIC 4.40 % Critically high 0.60-3.10 [facility] Comment on above: Performed By: #### L IVER BMP, LIPA, EDSON #### [facility] [address] [address] [address] Julia Velasquez VIT B12 AND FOLATEon 023 Cobalamin (Vitamin B12) [Mass/Vol] 322.0 pg/mL Normal 193.0-986.0 [facility] Comment on above: Performed By: #### L IVERNANCY LIPA, EDSON #### [facility] [address] [place] [address] Dr. Julia Velasquez FOLATE 6.10 ng/mL Critically low 8.60-58.90 [facility] Comment on above: Performed By: #### L IVNANCY VARGAS LIPA, EDSON #### [facility] [address] [place] [address] Dr. Julia Velasquez XR CHEST 2 Von [...] NANDO CARLSON Date: 2023-01-07 11:59 Normal [facility] CBC W MANUAL DIFFon 12-15-19 23 ATYPICAL LYMPH # Normal [facility] Comment on above: Performed By: #### L IVER, BMP, LIPA, EDSON #### [facility] [address] [place] [address] Dr. Julia Velasquez ATYPICAL LYMPH % Normal [facility] Comment on above: Performed By: #### L IVER, BMP, LIPA, EDSON #### [facility] [address] [place] [address] Dr. Julia Velasquez BAND # 1.0 103/ul Critically high 0.0-0.3 [facility] Comment on above: Performed By: #### L IVER, BMP, LIPA, EDOSN #### [facility] [address] [place] [address] Dr. Julia Velasquez BAND % 9 % Critically high 0-5 [facility] Comment on above: Performed By: #### L IVER, BMP, LIPA, EDSON #### [facility] [address] [place] [address] Dr. Julia Velasquez BASOM # 0.00 103/ul Normal 0.00-0.10 [facility] Comment on above: Performed By: #### L IVER, BMP, LIPA, EDSON #### [facility] [address] [place] [address] Dr. Julia Velasquez BASOM % 0.0 % Critically low 0.2-2.0 [facility] Comment on above: Performed By: #### L IVER, BMP, LIPA, EDSON #### [facility] [address] [place] [address] Dr. Julia Velasquez BLAST # Normal [facility] Comment on above: Performed By: #### L IVER, BMP, LIPA, EDSON #### [facility] [address] [place] [address] Dr. Julia Velasquez BLAST % Normal [facility] Comment on above: Performed By: #### L IVER, BMP, LIPA, EDSON #### [facility] [address] [place] [address] Dr. Julia Velasquez CORRECTED WBC Normal 4.0-11.0 [facility] Comment on above: Performed By: #### L IVER, BMP, LIPA, EDSON #### [facility] [address] [place] [address] Dr. Julia Velasquez EOS # 0.22 103/ul Normal 0.00-0.70 [facility] Comment on above: Performed By: #### L IVER, BMP, LIPA, EDSON #### [facility] [address] [place] [address] Dr. Julia Velasquez EOS% 2.0 % Normal 0.9-7.0 [facility] Comment on above: Performed By: #### L IVER, BMP, LIPA, EDSON #### [facility] [address] [place] [address] Dr. Julia Velasquez HCT 27.3 % Critically low 36.0-48.0 [facility] Comment on above: Performed By: #### L IVER, BMP, LIPA, EDSON #### [facility] [address] [place] [address] Dr. Julia Velasquez HGB 8.5 g/dl Critically low 12.0-16.0 [facility] Comment on above: Performed By: #### L IVER, BMP, LIPA, EDSON #### [facility] [address] [place] [address] Dr. Julia Velasquez HYPOCHROMASIA SLIGHT Normal [facility] Comment on above: Performed By: #### L IVER, BMP, LIPA, EDSON #### [facility] [address] [place] [address] Dr. Julia Velasquez LYMPHM # 0.99 103/ul Critically low 1.20-3.80 [facility] Comment on above: Performed By: #### L IVER, BMP, LIPA, EDSON #### [facility] [address] [place] [address] Dr. Julia Velasquez LYMPHM% 9.0 % Critically low 20.5-60.0 [facility] Comment on above: Performed By: #### L IVER, BMP, LIPA, EDSON #### [facility] [address] [address] [address] Julia Velasquez MCH 28.3 pg Normal 26.7-34.0 [facility] Comment on above: Performed By: #### L IVER, BMP, LIPA, EDSON #### [facility] [address] [address] [address] Julia Velasquez MCHC 31.1 g/dl Normal 29.9-35.2 [facility] Comment on above: Performed By: #### L IVER, BMP, LIPA, EDSON #### [facility] [address] [address] [address] Julia Velasquez MCV 91.0 fL Normal 81.0-99.0 [facility] Comment on above: Performed By: #### L IVER, BMP, LIPA, EDSON #### [facility] [address] [address] [address] Julia Velasquez METAMYELOCYTE # Normal [facility] Comment on above: Performed By: #### L IVER, BMP, LIPA, EDSON #### [facility] [address] [address] [address] Julia Velasquez METAMYELOCYTE % Normal [facility] Comment on above: Performed By: #### L IVER, BMP, LIPA, EDSON #### [facility] [address] [address] [address] Julia Velasquez MONOM# 0.22 103/ul Critically low 0.30-0.80 [facility] Comment on above: Performed By: #### L IVER, BMP, LIPA, EDSON #### [facility] [address] [address] [address] Julia Velasquez MONOM% 2.0 % Normal 1.7-12.0 [facility] Comment on above: Performed By: #### L IVER, BMP, LIPA, EDSON #### [facility] [address] [address] [address] Julia Velasquez MPV 10.9 fL Normal 9.5-13.5 [facility] Comment on above: Performed By: #### L IVER, BMP, LIPA, EDSON #### [facility] [address] [address] [address] Julia Velasquez MYELOCYTE # Normal [facility] Comment on above: Performed By: #### L IVER, BMP, LIPA, EDSON #### [facility] [address] [address] [address] Julia Velasquez MYELOCYTE % Normal [facility] Comment on above: Performed By: #### L IVER, BMP, LIPA, EDSON #### [facility] [address] [address] [address] Julia Velasquez NRBC Normal [facility] Comment on above: Performed By: #### L IVER, BMP, LIPA, EDSON #### [facility] [address] [address] [address] Julia Velasquez PLT 240 103/ul Normal 150-450 [facility] Comment on above: Performed By: #### L IVER, BMP, LIPA, EDSON #### [facility] [address] [address] [address] Julia Velasquez RBC 3.00 106/ul Critically low 4.20-5.40 [facility] Comment on above: Performed By: #### L IVER, BMP, LIPA, EDSON #### [facility] [address] [place] [address] Dr. Julia Velasquez RDW 17.2 % Critically high 11.0-15.0 [facility] Comment on above: Performed By: #### L IVER, BMP, LIPA, EDSON #### [facility] [address] [address] [address] Julia Velasquez SEG # 8.58 103/ul Critically high 1.40-6.50 [facility] Comment on above: Performed By: #### L IVER, BMP, LIPA, EDSON #### [facility] [address] [place] [address] Dr. Julia Velasquez SEG % 78.0 % Critically high 43.0-75.0 [facility] Comment on above: Performed By: #### L IVER, BMP, LIPA, EDSON #### [facility] [address] [place] [address] Dr. Julia Velasquez WBC 11.0 103/ul Normal 4.0-11.0 [facility] Comment on above: Performed By: #### L NANCY MONDRAGON, RAY, EDSON #### [facility] [address] [place] [address] Dr. Julia Velasquez PROF 14(COMP METB)on 023 Albumin [Mass/Vol] 1.3 g/dL Critically low 3.4-5.0 [facility] Comment on above: Performed By: #### C MP #### [facility] [address] [place] [address] Dr. Julia Velasquez Albumin/Globulin [Mass ratio] 0.3 {ratio} Normal [facility] Comment on above: Performed By: #### C MP #### [facility] [address] [place] [address] Dr. Julia Velasquez ALP [Catalytic activity/Vol] 93 U/L Normal 46-116 [facility] Comment on above: Performed By: #### C MP #### [facility] [address] [place] [address] Dr. Julia Velasquez ALT [Catalytic activity/Vol] 30 U/L Normal 14-59 [facility] Comment on above: Performed By: #### C MP #### [facility] [address] [place] [address] Dr. Julia Velasquez Anion gap [Moles/Vol] 13.4 mmol/L Normal [facility] Comment on above: Performed By: #### C MP #### [facility] [address] [place] [address] Dr. Julia Velasquez AST [Catalytic activity/Vol] 71 U/L Critically high 15-37 [facility] Comment on above: Performed By: #### C MP #### [facility] [address] [place] [address] Dr. Julia Velasquez Bilirubin [Mass/Vol] 1.2 mg/dL Critically high 0.2-1.0 [facility] Comment on above: Performed By: #### C MP #### [facility] [address] [address] [address] Julia Velasquez Calcium [Mass/Vol] 8.1 mg/dL Critically low 8.5-10.1 [facility] Comment on above: Performed By: #### C MP #### [facility] [address] [address] [address] Julia Velasquez Chloride [Moles/Vol] 116 mmol/L Critically high 98-107 [facility] Comment on above: Performed By: #### C MP #### [facility] [address] [address] [address] Julia Velasquez CO2 [Moles/Vol] 21.3 mmol/L Normal 21.0-32.0 [facility] Comment on above: Performed By: #### C MP #### [facility] [address] [address] [address] Julia Velasquez Creatinine [Mass/Vol] 1.10 mg/dL Critically high 0.55-1.02 [facility] Comment on above: Performed By: #### C MP #### [facility] [address] [address] [address] Julia Velasquez EGFR-AF ARGENTINE 58 mL/min/1.73m2 Critically low >=60 [facility] Comment on above: Performed By: #### C MP #### [facility] [address] [address] [address] Julia Velasquez EGFR-NON AF ARGENTINE 48 mL/min/1.73m2 Critically low >=60 [facility] Comment on above: Performed By: #### C MP #### [facility] [address] [address] [address] Julia Velasquez Globulin (S) [Mass/Vol] 3.8 g/dL Normal [facility] Comment on above: Performed By: #### C MP #### [facility] [address] [address] [address] Julia Velasquez Glucose [Mass/Vol] 110 mg/dL Critically high 74-106 [facility] Comment on above: Performed By: #### C MP #### [facility] [address] [address] [address] Julia Velasquez Potassium [Moles/Vol] 4.7 mmol/L Normal 3.5-5.1 [facility] Comment on above: Performed By: #### C MP #### [facility] [address] [place] [address] Dr. Julia Velasquez Protein [Mass/Vol] 5.1 g/dL Critically low 6.4-8.2 Th [facility] Comment on above: Performed By: #### C MP #### [facility] [address] [place] [address] Dr. Julia Velasquez Sodium [Moles/Vol] 146 mmol/L Critically high 136-145 [facility] Comment on above: Performed By: #### C MP #### [facility] [address] [place] [address] Dr. Julia Velasquez Urea nitrogen [Mass/Vol] 34.0 mg/dL Critically high 7.0-18.0 [facility] Comment on above: Performed By: #### C MP #### [facility] [address] [place] [address] Dr. Julia Velasquez Urea nitrogen/Creatinine [Mass ratio] 30.9 mg/mg Normal [facility] Comment on above: Performed By: #### C MP #### [facility] [address] [place] [address] Dr. Julia Velasquez CBC W MANUAL DIFFon 12-14-19 23 ATYPICAL LYMPH # 0.21 103/ul Normal [facility] Comment on above: Performed By: #### C MP #### [facility] [address] [place] [address] Dr. Julia Velasquez ATYPICAL LYMPH % 1 % Normal [facility] Comment on above: Performed By: #### C MP #### [facility] [address] [place] [address] Dr. Julia Velasquez BAND # 0.2 103/ul Normal 0.0-0.3 [facility] Comment on above: Performed By: #### C MP #### [facility] [address] [place] [address] Dr. Julia Velasquez BAND % 1 % Normal 0-5 [facility] Comment on above: Performed By: #### C MP #### [facility] [address] [place] [address] Dr. Julia Velasquez BASOM # 0.00 103/ul Normal 0.00-0.10 [facility] Comment on above: Performed By: #### C MP #### [facility] [address] [place] [address] Dr. Julia Velasquez BASOM % 0.0 % Critically low 0.2-2.0 [facility] Comment on above: Performed By: #### C MP #### [facility] [address] [place] [address] Dr. Julia Velasquez BLAST # Normal [facility] Comment on above: Performed By: #### C MP #### [facility] [address] [place] [address] Dr. Julia Velasquez BLAST % Normal [facility] Comment on above: Performed By: #### C MP #### [facility] [address] [place] [address] Dr. Julia Velasquez CORRECTED WBC Normal 4.0-11.0 [facility] Comment on above: Performed By: #### C MP #### [facility] [address] [place] [address] Dr. Julia Velasquez EOS # 0.00 103/ul Normal 0.00-0.70 [facility] Comment on above: Performed By: #### C MP #### [facility] [address] [place] [address] Dr. Julia Velasquez EOS% 0.0 % Critically low 0.9-7.0 [facility] Comment on above: Performed By: #### C MP #### [facility] [address] [place] [address] Dr. Julia Velasquez HCT 26.7 % Critically low 36.0-48.0 [facility] Comment on above: Performed By: #### C MP #### [facility] [address] [place] [address] Dr. Julia Velasquez HGB 8.8 g/dl Critically low 12.0-16.0 [facility] Comment on above: Performed By: #### C MP #### [facility] [address] [place] [address] Dr. Julia Velasquez LYMPHM # 1.05 103/ul Critically low 1.20-3.80 [facility] Comment on above: Performed By: #### C MP #### [facility] [address] [place] [address] Dr. Julia Velasquez LYMPHM% 5.0 % Critically low 20.5-60.0 [facility] Comment on above: Performed By: #### C MP #### [facility] [address] [place] [address] Dr. Julia Velasquez MCH 29.0 pg Normal 26.7-34.0 [facility] Comment on above: Performed By: #### C MP #### [facility] [address] [place] [address] Dr. Julia Velasquez MCHC 33.0 g/dl Normal 29.9-35.2 [facility] Comment on above: Performed By: #### C MP #### [facility] [address] [place] [address] Dr. Julia Velasquez MCV 88.1 fL Normal 81.0-99.0 [facility] Comment on above: Performed By: #### C MP #### [facility] [address] [place] [address] Dr. Julia Velasquez METAMYELOCYTE # Normal [facility] Comment on above: Performed By: #### C MP #### [facility] [address] [place] [address] Dr. Julia Velasquez METAMYELOCYTE % Normal [facility] Comment on above: Performed By: #### C MP #### [facility] [address] [place] [address] Dr. Julia Velasquez MONOM# 0.21 103/ul Critically low 0.30-0.80 [facility] Comment on above: Performed By: #### C MP #### [facility] [address] [place] [address] Dr. Julia Velasquez MONOM% 1.0 % Critically low 1.7-12.0 [facility] Comment on above: Performed By: #### C MP #### [facility] [address] [address] [address] Julia Velasquez MPV 10.6 fL Normal 9.5-13.5 [facility] Comment on above: Performed By: #### C MP #### [facility] [address] [place] [address] Dr. Julia Velasquez MYELOCYTE # Normal [facility] Comment on above: Performed By: #### C MP #### [facility] [address] [place] [address] Dr. Julia Velasquez MYELOCYTE % Normal [facility] Comment on above: Performed By: #### C MP #### [facility] [address] [place] [address] Dr. Julia Velasquez NRBC Normal [facility] Comment on above: Performed By: #### C MP #### [facility] [address] [place] [address] Dr. Julia Velasquez PLT 271 103/ul Normal 150-450 [facility] Comment on above: Performed By: #### C MP #### [facility] [address] [place] [address] Dr. Julia Velasquez RBC 3.03 106/ul Critically low 4.20-5.40 [facility] Comment on above: Performed By: #### C MP #### [facility] [address] [place] [address] Dr. Julia Velasquez RDW 16.7 % Critically high 11.0-15.0 [facility] Comment on above: Performed By: #### C MP #### [facility] [address] [place] [address] Dr. Julia Velasquez SEG # 19.41 103/ul Critically high 1.40-6.50 [facility] Comment on above: Performed By: #### C MP #### [facility] [address] [place] [address] Dr. Julia Velasquez SEG % 92.0 % Critically high 43.0-75.0 [facility] Comment on above: Performed By: #### C MP #### [facility] [address] [place] [address] Dr. Julia Velasquez WBC 21.1 103/ul Critically high 4.0-11.0 [facility] Comment on above: Performed By: #### C MP #### [facility] [address] [place] [address] Dr. Julia Velasquez PROF 14(COMP METB)on 023 Albumin [Mass/Vol] 1.4 g/dL Critically low 3.4-5.0 Th [facility] Comment on above: Performed By: #### C MP #### [facility] [address] [place] [address] Dr. Julia Velasquez Albumin/Globulin [Mass ratio] 0.4 {ratio} Normal [facility] Comment on above: Performed By: #### C MP #### [facility] [address] [place] [address] Dr. Julia Velasquez ALP [Catalytic activity/Vol] 87 U/L Normal 46-116 [facility] Comment on above: Performed By: #### C MP #### [facility] [address] [place] [address] Dr. Julia Velasquez ALT [Catalytic activity/Vol] 26 U/L Normal 14-59 [facility] Comment on above: Performed By: #### C MP #### [facility] [address] [place] [address] Dr. Julia Velasquez Anion gap [Moles/Vol] 14.7 mmol/L Normal [facility] Comment on above: Performed By: #### C MP #### [facility] [address] [place] [address] Dr. Julia Velasquez AST [Catalytic activity/Vol] 59 U/L Critically high 15-37 [facility] Comment on above: Performed By: #### C MP #### [facility] [address] [place] [address] Dr. Julia Velasquez Bilirubin [Mass/Vol] 1.5 mg/dL Critically high 0.2-1.0 [facility] Comment on above: Performed By: #### C MP #### [facility] [address] [address] [address] Julia Velasquez Calcium [Mass/Vol] 8.1 mg/dL Critically low 8.5-10.1 Th [facility] Comment on above: Performed By: #### C MP #### [facility] [address] [address] [address] Julia Velasquez Chloride [Moles/Vol] 118 mmol/L Critically high 98-107 [facility] Comment on above: Performed By: #### C MP #### [facility] [address] [address] [address] Julia Velasquez CO2 [Moles/Vol] 20.6 mmol/L Critically low 21.0-32.0 [facility] Comment on above: Performed By: #### C MP #### [facility] [address] [address] [address] Julia Velasquez Creatinine [Mass/Vol] 1.20 mg/dL Critically high 0.55-1.02 [facility] Comment on above: Performed By: #### C MP #### [facility] [address] [address] [address] Julia Velasquez EGFR-AF ARGENTINE 52 mL/min/1.73m2 Critically low >=60 [facility] Comment on above: Performed By: #### C MP #### [facility] [address] [address] [address] Julia Velasquez EGFR-NON AF ARGENTINE 43 mL/min/1.73m2 Critically low >=60 [facility] Comment on above: Performed By: #### C MP #### [facility] [address] [address] [address] Julia Velasquez Globulin (S) [Mass/Vol] 3.4 g/dL Normal [facility] Comment on above: Performed By: #### C MP #### [facility] [address] [address] [address] Julia Velasquez Glucose [Mass/Vol] 119 mg/dL Critically high 74-106 [facility] Comment on above: Performed By: #### C MP #### [facility] [address] [address] [address] Julia Velasquez Potassium [Moles/Vol] 4.3 mmol/L Normal 3.5-5.1 [facility] Comment on above: Performed By: #### C MP #### [facility] [address] [address] [address] Julia Velasquez Protein [Mass/Vol] 4.8 g/dL Critically low 6.4-8.2 Th [facility] Comment on above: Performed By: #### C MP #### [facility] [address] [address] [address] Julia Velasquez Sodium [Moles/Vol] 149 mmol/L Critically high 136-145 [facility] Comment on above: Performed By: #### C MP #### [facility] [address] [address] [address] Julia Velasquez Urea nitrogen [Mass/Vol] 47.0 mg/dL Critically high 7.0-18.0 [facility] Comment on above: Performed By: #### C MP #### [facility] [address] [address] [address] Julia Velasquez Urea nitrogen/Creatinine [Mass ratio] 39.2 mg/mg Normal [facility] Comment on above: Performed By: #### C MP #### [facility] [address] [address] [address] Julia Velasquez CBC W MANUAL DIFFon 12-13-19 23 ATYPICAL LYMPH # Normal [facility] Comment on above: Performed By: #### L IVER, BMP, LIPA, EDSON #### [facility] [address] [address] [address] Julia Velasquez ATYPICAL LYMPH % Normal [facility] Comment on above: Performed By: #### L IVER, BMP, LIPA, EDSON #### [facility] [address] [address] [address] Julia Velasquez BAND # 0.9 103/ul Critically high 0.0-0.3 [facility] Comment on above: Performed By: #### L IVER, BMP, LIPA, EDSON #### [facility] [address] [place] [address] Dr. Julia Velasquez BAND % 3 % Normal 0-5 [facility] Comment on above: Performed By: #### L IVER, BMP, LIPA, EDSON #### [facility] [address] [place] [address] Dr. Julia Velasquez BASOM # 0.00 103/ul Normal 0.00-0.10 [facility] Comment on above: Performed By: #### L IVER, BMP, LIPA, EDSON #### [facility] [address] [address] [address] Julia Velasquez BASOM % 0.0 % Critically low 0.2-2.0 [facility] Comment on above: Performed By: #### L IVER, BMP, LIPA, EDSON #### [facility] [address] [place] [address] Dr. Julia Velasquez BLAST # Normal [facility] Comment on above: Performed By: #### L IVER, BMP, LIPA, EDSON #### [facility] [address] [place] [address] Dr. Julia Velasquez BLAST % Normal [facility] Comment on above: Performed By: #### L IVER, BMP, LIPA, EDSON #### [facility] [address] [place] [address] Dr. Julia Velasquez CORRECTED WBC Normal 4.0-11.0 [facility] Comment on above: Performed By: #### L IVER, BMP, LIPA, EDSON #### [facility] [address] [place] [address] Dr. Julia Velasquez EOS # 0.00 103/ul Normal 0.00-0.70 [facility] Comment on above: Performed By: #### L IVER, BMP, LIPA, EDSON #### [facility] [address] [place] [address] Dr. Julia Velasquez EOS% 0.0 % Critically low 0.9-7.0 [facility] Comment on above: Performed By: #### L IVER, BMP, LIPA, EDSON #### [facility] [address] [place] [address] Dr. Julia Velasquez HCT 28.9 % Critically low 36.0-48.0 [facility] Comment on above: Performed By: #### L IVER, BMP, LIPA, EDSON #### [facility] [address] [place] [address] Dr. Julia Velasquez HGB 9.5 g/dl Critically low 12.0-16.0 [facility] Comment on above: Performed By: #### L IVER, BMP, LIPA, EDSON #### [facility] [address] [place] [address] Dr. Julia Velasquez LYMPHM # 1.21 103/ul Normal 1.20-3.80 [facility] Comment on above: Performed By: #### L IVER, BMP, LIPA, EDSON #### [facility] [address] [place] [address] Dr. Julia Velasquez LYMPHM% 4.0 % Critically low 20.5-60.0 [facility] Comment on above: Performed By: #### L IVER, BMP, LIPA, EDSON #### [facility] [address] [place] [address] Dr. Julia Velasquez MCH 29.2 pg Normal 26.7-34.0 [facility] Comment on above: Performed By: #### L IVER, BMP, LIPA, EDSON #### [facility] [address] [place] [address] Dr. Julia Velasquez MCHC 32.9 g/dl Normal 29.9-35.2 [facility] Comment on above: Performed By: #### L IVER, BMP, LIPA, EDSON #### [facility] [address] [place] [address] Dr. Julia Velasquez MCV 88.9 fL Normal 81.0-99.0 [facility] Comment on above: Performed By: #### L IVER, BMP, LIPA, EDSON #### [facility] [address] [place] [address] Dr. Julia Velasquez METAMYELOCYTE # Normal [facility] Comment on above: Performed By: #### L IVER, BMP, LIPA, EDSON #### [facility] [address] [place] [address] Dr. Julia Velasquez METAMYELOCYTE % Normal [facility] Comment on above: Performed By: #### L IVER, BMP, LIPA, EDSON #### [facility] [address] [place] [address] Dr. Julia Velasquez MONOM# 1.21 103/ul Critically high 0.30-0.80 [facility] Comment on above: Performed By: #### L IVER, BMP, LIPA, EDSON #### [facility] [address] [place] [address] Dr. Julia Velasquez MONOM% 4.0 % Normal 1.7-12.0 [facility] Comment on above: Performed By: #### L IVER, BMP, LIPA, EDSON #### [facility] [address] [place] [address] Dr. Julia Velasquez MPV 11.2 fL Normal 9.5-13.5 [facility] Comment on above: Performed By: #### L IVER, BMP, LIPA, EDSON #### [facility] [address] [place] [address] Dr. Julia Velasquez MYELOCYTE # Normal [facility] Comment on above: Performed By: #### L IVER, BMP, LIPA, EDSON #### [facility] [address] [place] [address] Dr. Julia Velasquez MYELOCYTE % Normal [facility] Comment on above: Performed By: #### L IVER, BMP, LIPA, EDSON #### [facility] [address] [place] [address] Dr. Julia Velasquez NRBC 2 Normal [facility] Comment on above: Performed By: #### L IVER, BMP, LIPA, EDSON #### [facility] [address] [place] [address] Dr. Julia Velasquez PLT 273 103/ul Normal 150-450 [facility] Comment on above: Performed By: #### L IVER, BMP, LIPA, EDSON #### [facility] [address] [place] [address] Dr. Julia Velasquez RBC 3.25 106/ul Critically low 4.20-5.40 [facility] Comment on above: Performed By: #### L IVER, BMP, LIPA, EDSON #### [facility] [address] [place] [address] Dr. Julia Velasquez RDW 16.0 % Critically high 11.0-15.0 [facility] Comment on above: Performed By: #### L IVER, BMP, LIPA, EDSON #### [facility] [address] [place] [address] Dr. Julia Velasquez SEG # 26.97 103/ul Critically high 1.40-6.50 [facility] Comment on above: Performed By: #### L IVER, BMP, LIPA, EDSON #### [facility] [address] [place] [address] Dr. Julia Velasquez SEG % 89.0 % Critically high 43.0-75.0 [facility] Comment on above: Performed By: #### L IVER, BMP, LIPA, EDSON #### [facility] [address] [place] [address] Dr. Julia Velasquez WBC 30.3 103/ul Critically high 4.0-11.0 [facility] Comment on above: Performed By: #### L IVER, BMP, LIPA, EDSON #### [facility] [address] [place] [address] Dr. Julia Velasquez GI PANEL (PCR)on 12-12-2022 Adenovirus F 40/41 Not detected Normal NOT DETECTED [facility] Comment on above: Performed By: #### L IVER, BMP, LIPA, EDSON #### [facility] [address] [place] [address] Dr. Julia Velasquez Astrovirus Not detected Normal NOT DETECTED [facility] Comment on above: Performed By: #### L IVER, BMP, LIPA, EDSON #### [facility] [address] [place] [address] Dr. Julia Velasquez C. Diff toxin A/B Not detected Normal NOT DETECTED [facility] Comment on above: Performed By: #### L IVER, BMP, LIPA, EDSON #### [facility] [address] [place] [address] Dr. Julia Velasquez Campylobacter Not detected Normal NOT DETECTED [facility] Comment on above: Performed By: #### L IVER, BMP, LIPA, EDSON #### [facility] [address] [place] [address] Dr. Julia Velasquez Cryptosporidium Not detected Normal NOT DETECTED [facility] Comment on above: Performed By: #### L IVER, BMP, LIPA, EDSON #### [facility] [address] [place] [address] Dr. Julia Velasquez Cyclos. Cayetanensis Not detected Normal NOT DETECTED [facility] Comment on above: Performed By: #### L IVER, BMP, LIPA, EDSON #### [facility] [address] [place] [address] Dr. Julia Velasquez E. Coli O157 Not Applicable Normal Not Applicable [facility] Comment on above: Performed By: #### L IVER, BMP, LIPA, EDSON #### [facility] [address] [place] [address] Dr. Julia Velasquez E. histolytica Not detected Normal NOT DETECTED [facility] Comment on above: Performed By: #### L IVER, BMP, LIPA, EDSON #### [facility] [address] [place] [address] Dr. Julia Velasquez EAEC Not detected Normal NOT DETECTED [facility] Comment on above: Performed By: #### L IVER, BMP, LIPA, EDSON #### [facility] [address] [place] [address] Dr. Julia Velasquez EIEC Not detected Normal NOT DETECTED [facility] Comment on above: Performed By: #### L IVER, BMP, LIPA, EDSON #### [facility] [address] [place] [address] Dr. Julia Velasquez EPEC Not detected Normal NOT DETECTED [facility] Comment on above: Performed By: #### L IVER, BMP, LIPA, EDSON #### [facility] [address] [place] [address] Dr. Julia Velasquez ETEC Not detected Normal NOT DETECTED [facility] Comment on above: Performed By: #### L IVER, BMP, LIPA, EDSON #### [facility] [address] [address] [address] Julia Rowley Not detected Normal NOT DETECTED [facility] Comment on above: Performed By: #### L IVER, BMP, LIPA, EDSON #### [facility] [address] [place] [address] Dr. Julia DE PAZ CONTROLS PASSED [facility] Comment on above: Performed By: #### L IVER, BMP, LIPA, EDSON #### [facility] [address] [place] [address] Dr. Julia NILESON HEADER GI PANEL BACTERIA Normal [facility] Comment on above: Performed By: #### L IVER, BMP, LIPA, EDSON #### [facility] [address] [place] [address] Dr. Julia DEMPSEY ECOLI GI PANEL DIARRHEAGENIC E.COLI / SHIGELLA Normal [facility] Comment on above: Performed By: #### L IVER, BMP, LIPA, EDSON #### [facility] [address] [place] [address] Dr. Julia DEMPSEY INFO SEE BELOW [facility] Comment on above: Result Comment: EAEC - Enteroaggregative E. Coli EPEC- Enteropathogenic E. Coli ETEC- Enterotoxigenic E. Coli lt/st STEC- Shigella-like toxin-producing E. Coli stx1/stx2 EIEC- Shigella/Enteroinvasive E. Coli Performed By: #### L IVER, BMP, LIPA, EDSON #### [facility] [address] [place] [address] Dr. Julia DEMPSEY PARASITES GI PANEL PARASITES Normal [facility] Comment on above: Performed By: #### L IVER, BMP, LIPA, EDSON #### [facility] [address] [address] [address] Julia Velasquez [facility] VIRUS GI PANEL VIRUSES Normal [facility] Comment on above: Performed By: #### L IVER, BMP, LIPA, EDSON #### [facility] [address] [address] [address] Julia Velasquez Norovirus GI/GII Not detected Normal NOT DETECTED [facility] Comment on above: Performed By: #### L IVER, BMP, LIPA, EDSON #### [facility] [address] [place] [address] Dr. Julia Hope. Shigelloides Not detected Normal NOT DETECTED [facility] Comment on above: Performed By: #### L IVER, BMP, LIPA, EDSON #### [facility] [address] [place] [address] Dr. Julia Velasquez Rotavirus A Not detected Normal NOT DETECTED [facility] Comment on above: Performed By: #### L IVER, BMP, LIPA, EDSON #### [facility] [address] [place] [address] Dr. Julia Velasquez Salmonella Not detected Normal NOT DETECTED [facility] Comment on above: Performed By: #### L IVER, BMP, LIPA, EDSON #### [facility] [address] [place] [address] Dr. Julia Velasquez Sapovirus Not detected Normal NOT DETECTED [facility] Comment on above: Performed By: #### L IVER, BMP, LIPA, EDSON #### [facility] [address] [address] [address] Julia Velasquez STEC Not detected Normal NOT DETECTED [facility] Comment on above: Performed By: #### L IVER, BMP, LIPA, EDSON #### [facility] [address] [place] [address] Dr. Julia Velasquez Vibrio Not detected Normal NOT DETECTED [facility] Comment on above: Performed By: #### L IVER, BMP, LIPA, EDSON #### [facility] [address] [place] [address] Dr. Julia Velasquez Vibrio Cholera Not detected Normal NOT DETECTED [facility] Comment on above: Performed By: #### L IVER, BMP, LIPA, EDSON #### [facility] [address] [place] [address] Dr. Julia Velasquez Y. Enterocolitica Not detected Normal NOT DETECTED [facility] Comment on above: Performed By: #### L IVER, BMP, LIPA, EDSON #### [facility] [address] [place] [address] Dr. Julia Velasquez PROF 14(COMP METB)on 023 Albumin [Mass/Vol] 1.4 g/dL Critically low 3.4-5.0 Th [facility] Comment on above: Performed By: #### L IVER, BMP, LIPA, EDSON #### [facility] [address] [place] [address] Dr. Julia Velasquez Albumin/Globulin [Mass ratio] 0.3 {ratio} Normal [facility] Comment on above: Performed By: #### L IVER, BMP, LIPA, EDSON #### [facility] [address] [place] [address] Dr. Julia Velasquez ALP [Catalytic activity/Vol] 89 U/L Normal 46-116 [facility] Comment on above: Performed By: #### L IVER, BMP, LIPA, EDSON #### [facility] [address] [place] [address] Dr. Julia Velasquez ALT [Catalytic activity/Vol] 27 U/L Normal 14-59 [facility] Comment on above: Performed By: #### L IVER, BMP, LIPA, EDSON #### [facility] [address] [place] [address] Dr. Julia Velasquez Anion gap [Moles/Vol] 14.7 mmol/L Normal [facility] Comment on above: Performed By: #### L IVER, BMP, LIPA, EDSON #### [facility] [address] [place] [address] Dr. Julia Velasquez AST [Catalytic activity/Vol] 58 U/L Critically high 15-37 [facility] Comment on above: Performed By: #### L IVER, BMP, LIPA, EDSON #### [facility] [address] [place] [address] Dr. Julia Velasquez Bilirubin [Mass/Vol] 2.0 mg/dL Critically high 0.2-1.0 [facility] Comment on above: Performed By: #### L IVER, BMP, LIPA, EDSON #### [facility] [address] [place] [address] Dr. Julia Velasquez Calcium [Mass/Vol] 8.8 mg/dL Normal 8.5-10.1 [facility] Comment on above: Performed By: #### L IVER, BMP, LIPA, EDSON #### [facility] [address] [place] [address] Dr. Julia Velasquez Chloride [Moles/Vol] 118 mmol/L Critically high 98-107 [facility] Comment on above: Performed By: #### L IVER, BMP, LIPA, EDSON #### [facility] [address] [place] [address] Dr. Julia Velasquez CO2 [Moles/Vol] 20.7 mmol/L Critically low 21.0-32.0 [facility] Comment on above: Performed By: #### L IVER, BMP, LIPA, EDSON #### [facility] [address] [place] [address] Dr. Julia Velasquez Creatinine [Mass/Vol] 1.63 mg/dL Critically high 0.55-1.02 [facility] Comment on above: Performed By: #### L IVER, BMP, LIPA, EDSON #### [facility] [address] [place] [address] Dr. Julia Velasquez EGFR-AF ARGENTINE 37 mL/min/1.73m2 Critically low >=60 [facility] Comment on above: Performed By: #### L IVER, BMP, LIPA, EDSON #### [facility] [address] [place] [address] Dr. Julia Velasquez EGFR-NON AF ARGENTINE 30 mL/min/1.73m2 Critically low >=60 [facility] Comment on above: Performed By: #### L IVER, BMP, LIPA, EDSON #### [facility] [address] [address] [address] Julia Velasquez Globulin (S) [Mass/Vol] 4.7 g/dL Normal [facility] Comment on above: Performed By: #### L IVER, BMP, LIPA, EDSON #### [facility] [address] [address] [address] Julia Velasquez Glucose [Mass/Vol] 130 mg/dL Critically high 74-106 [facility] Comment on above: Performed By: #### L IVER, BMP, LIPA, EDSON #### [facility] [address] [place] [address] Dr. Julia Velasquez Potassium [Moles/Vol] 4.4 mmol/L Normal 3.5-5.1 [facility] Comment on above: Performed By: #### L IVER, BMP, LIPA, EDSON #### [facility] [address] [place] [address] Dr. Julia Velasquez Protein [Mass/Vol] 6.1 g/dL Critically low 6.4-8.2 Th [facility] Comment on above: Performed By: #### L IVER, BMP, LIPA, EDSON #### [facility] [address] [place] [address] Dr. Julia Velasquez Sodium [Moles/Vol] 149 mmol/L Critically high 136-145 [facility] Comment on above: Performed By: #### L IVER, BMP, LIPA, EDSON #### [facility] [address] [place] [address] Dr. Julia Velasquez Urea nitrogen [Mass/Vol] 56.0 mg/dL Critically high 7.0-18.0 [facility] Comment on above: Performed By: #### L IVER, BMP, LIPA, EDSON #### [facility] [address] [place] [address] Dr. Julia Velasquez Urea nitrogen/Creatinine [Mass ratio] 34.4 mg/mg Normal [facility] Comment on above: Performed By: #### L IVER, BMP, LIPA, EDSON #### [facility] [address] [place] [address] Dr. Julia Velasquez RESPIRATORY PANEL PLUSon Adenovirus Not detected Normal NOT DETECTED [facility] Comment on above: Performed By: #### L IVER, BMP, LIPA, EDSON #### [facility] [address] [place] [address] Dr. Julia Charles Parapertusis Not detected Normal NOT DETECTED [facility] Comment on above: Performed By: #### L IVER, BMP, LIPA, EDSON #### [facility] [address] [place] [address] Dr. Julia Charles Pertussis Not detected Normal NOT DETECTED [facility] Comment on above: Performed By: #### L IVER, BMP, LIPA, EDSON #### [facility] [address] [place] [address] Dr. Julia Velasquez Chlamydia Pneumoniae Not detected Normal NOT DETECTED [facility] Comment on above: Performed By: #### L IVER, BMP, LIPA, EDSON #### [facility] [address] [place] [address] Dr. Julia Velasquez Coronavirus 229E Not detected Normal NOT DETECTED [facility] Comment on above: Performed By: #### L IVER, BMP, LIPA, EDSON #### [facility] [address] [place] [address] Dr. Julia Velasquez Coronavirus HKU1 Not detected Normal NOT DETECTED [facility] Comment on above: Performed By: #### L IVER, BMP, LIPA, EDSON #### [facility] [address] [place] [address] Dr. Julia Velasquez Coronavirus NL63 Not detected Normal NOT DETECTED [facility] Comment on above: Performed By: #### L IVER, BMP, LIPA, EDSON #### [facility] [address] [place] [address] Dr. Julia Velasquez Coronavirus OC43 Not detected Normal NOT DETECTED [facility] Comment on above: Performed By: #### L IVER, BMP, LIPA, EDSON #### [facility] [address] [address] [address] Julia Velasquez Influenza A H1 Not detected Normal NOT DETECTED [facility] Comment on above: Performed By: #### L IVER, BMP, LIPA, EDSON #### [facility] [address] [address] [address] Julia Velasquez Influenza A H1 2009 Not detected Normal NOT DETECTED [facility] Comment on above: Performed By: #### L IVER, BMP, LIPA, EDSON #### [facility] [address] [address] [address] Julia Velasquez Influenza A H3 Not detected Normal NOT DETECTED [facility] Comment on above: Performed By: #### L IVER, BMP, LIPA, EDSON #### [facility] [address] [place] [address] Dr. Julia Velasquez Influenza B Not detected Normal NOT DETECTED [facility] Comment on above: Performed By: #### L IVER, BMP, LIPA, EDSON #### [facility] [address] [place] [address] Dr. Julia Velasquez Metapneumovirus Not detected Normal NOT DETECTED [facility] Comment on above: Performed By: #### L IVER, BMP, LIPA, EDSON #### [facility] [address] [place] [address] Dr. Julia Velasquez Mycoplas. Pneumoniae Not detected Normal NOT DETECTED [facility] Comment on above: Performed By: #### L IVER, BMP, LIPA, EDSON #### [facility] [address] [place] [address] Dr. Julia Velasquez Parainfluenza 1 Not detected Normal NOT DETECTED [facility] Comment on above: Performed By: #### L IVER, BMP, LIPA, EDSON #### [facility] [address] [place] [address] Dr. Julia Velasquez Parainfluenza 2 Not detected Normal NOT DETECTED [facility] Comment on above: Performed By: #### L IVER, BMP, LIPA, EDSON #### [facility] [address] [place] [address] Dr. Julia Velasquez Parainfluenza 3 Not detected Normal NOT DETECTED [facility] Comment on above: Performed By: #### L NANCY MONDRAGON LIPA, EDSON #### [facility] [address] [place] [address] Dr. Julia Velasquez Parainfluenza 4 Not detected Normal NOT DETECTED [facility] Comment on above: Performed By: #### L IVNANCY VARGAS LIPA, EDSON #### [facility] [address] [place] [address] Dr. Julia Velasquez Rhino/Enterovirus Not detected Normal NOT DETECTED [facility] Comment on above: Performed By: #### L NANCY MONDRAGON LIPA, EDSON #### [facility] [address] [place] [address] Dr. Julia Velasquez RP2 Header 1 RESPIRATORY PANEL: VIRUSES Normal [facility] Comment on above: Performed By: #### L NANCY MONDRAGON LIPA, EDSON #### [facility] [address] [place] [address] Dr. Julia Velasquez RP2 Header 2 RESPIRATORY PANEL: BACTERIA Normal [facility] Comment on above: Performed By: #### L NANCY MONDRAGON LIPA, EDSON #### [facility] [address] [place] [address] Dr. Julia Velasquez RSV Not detected Normal NOT DETECTED [facility] Comment on above: Performed By: #### L NANCY MONDRAGON LIPA, EDSON #### [facility] [address] [place] [address] Dr. Julia Velasquez SARS-CoV-2 (COVID-19) RNA MARIO+probe Ql (Unsp spec) Not detected Normal NOT DETECTED [facility] Comment on above: Performed By: #### L IVNANCY VARGAS, LIPA, EDSON #### [facility] [address] [place] [address] Dr. Julia Velasquez CBC AUTO DIFFon 12-11-2022 BASO # 0.1 103/ul Normal 0.0-0.1 [facility] Comment on above: Performed By: #### C MP #### [facility] [address] [address] [address] Julia Velasquez Basophils/100 WBC (Bld) 0.4 % Normal 0.2-2.0 [facility] Comment on above: Performed By: #### C MP #### [facility] [address] [address] [address] Julia Velasquez EO # 0.0 103/ul Normal 0.0-0.7 [facility] Comment on above: Performed By: #### C MP #### [facility] [address] [address] [address] Julia Velasquez Eosinophils/100 WBC (Bld) 0.0 % Critically low 0.9-7.0 [facility] Comment on above: Performed By: #### C MP #### [facility] [address] [place] [address] Dr. Julia Velasquez Erythrocyte distribution width (RBC) [Ratio] 15.9 % Critically high 11.0-15.0 [facility] Comment on above: Performed By: #### C MP #### [facility] [address] [place] [address] Dr. Julia Velasquez Hematocrit (Bld) [Volume fraction] 34.4 % Critically low 36.0-48.0 [facility] Comment on above: Performed By: #### C MP #### [facility] [address] [place] [address] Dr. Julia Velasquez Hemoglobin (Bld) [Mass/Vol] 11.1 g/dL Critically low 12.0-16.0 [facility] Comment on above: Performed By: #### C MP #### [facility] [address] [address] [address] Julia Velasquez IG # 0.75 10e3/ul Critically high 0.00-0.03 [facility] Comment on above: Performed By: #### C MP #### [facility] [address] [address] [address] Julia Velasquez IG % 2.7 % Critically high 0.0-0.5 [facility] Comment on above: Performed By: #### C MP #### [facility] [address] [address] [address] Julia Velasquez LYMPH # 0.7 103/ul Critically low 1.2-3.8 [facility] Comment on above: Performed By: #### C MP #### [facility] [address] [address] [address] Julia Velasquez Lymphocytes/100 WBC (Bld) 2.4 % Critically low 20.5-60.0 [facility] Comment on above: Performed By: #### C MP #### [facility] [address] [address] [address] Julia Velasquez MANUAL DIFF REQ NO Normal [facility] Comment on above: Performed By: #### C MP #### [facility] [address] [place] [address] Dr. Julia Velasquez MCH (RBC) [Entitic mass] 29.2 pg Normal 26.7-34.0 [facility] Comment on above: Performed By: #### C MP #### [facility] [address] [place] [address] Dr. Julia Velasquez MCHC (RBC) [Mass/Vol] 32.3 g/dL Normal 29.9-35.2 [facility] Comment on above: Performed By: #### C MP #### [facility] [address] [place] [address] Dr. Julia Velasquez MCV (RBC) [Entitic vol] 90.5 fL Normal 81.0-99.0 [facility] Comment on above: Performed By: #### C MP #### [facility] [address] [address] [address] Julia Velasquez MONO # 0.7 103/ul Normal 0.3-0.8 [facility] Comment on above: Performed By: #### C MP #### [facility] [address] [place] [address] Dr. Julia Velasquez Monocytes/100 WBC (Bld) 2.6 % Normal 1.7-12.0 [facility] Comment on above: Performed By: #### C MP #### [facility] [address] [place] [address] Dr. Julia Velasquez NEUT # 25.6 103/ul Critically high 1.4-6.5 [facility] Comment on above: Performed By: #### C MP #### [facility] [address] [place] [address] Dr. Julia Velasquez Neutrophils/100 WBC (Bld) 91.9 % Critically high 43.0-75.0 [facility] Comment on above: Performed By: #### C MP #### [facility] [address] [place] [address] Dr. Julia Velasquez Platelet mean volume (Bld) [Entitic vol] 11.1 fL Normal 9.5-13.5 [facility] Comment on above: Performed By: #### C MP #### [facility] [address] [place] [address] Dr. Julia Velasquez PLT 240 103/ul Normal 150-450 [facility] Comment on above: Performed By: #### C MP #### [facility] [address] [place] [address] Dr. Julia Velasquez RBC 3.80 106/ul Critically low 4.20-5.40 [facility] Comment on above: Performed By: #### C MP #### [facility] [address] [place] [address] Dr. Julia Velasquez WBC 27.9 103/ul Critically high 4.0-11.0 [facility] Comment on above: Performed By: #### C MP #### [facility] [address] [place] [address] Dr. Julia Velasquez CBC W MANUAL DIFFon 12-12-19 23 ATYPICAL LYMPH # Normal [facility] Comment on above: Performed By: #### L IVNANCY VARGAS LIPA, EDSON #### [facility] [address] [place] [address] Dr. Julia Velasquez ATYPICAL LYMPH % Normal [facility] Comment on above: Performed By: #### L IVER BMP, LIPA, EDSON #### [facility] [address] [place] [address] Dr. Julia Velasquez BAND # 3.0 103/ul Critically high 0.0-0.3 [facility] Comment on above: Performed By: #### L IVER, BMP, LIPA, EDSON #### [facility] [address] [place] [address] Dr. Julia Velasquez BAND % 9 % Critically high 0-5 [facility] Comment on above: Performed By: #### L IVER, BMP, LIPA, EDSON #### [facility] [address] [place] [address] Dr. Julia Velasquez BASOM # 0.00 103/ul Normal 0.00-0.10 [facility] Comment on above: Performed By: #### L IVER, BMP, LIPA, EDSON #### [facility] [address] [place] [address] Dr. Julia Velasquez BASOM % 0.0 % Critically low 0.2-2.0 [facility] Comment on above: Performed By: #### L IVER, BMP, LIPA, EDSON #### [facility] [address] [place] [address] Dr. Julia Velasquez BLAST # Normal [facility] Comment on above: Performed By: #### L IVER, BMP, LIPA, EDSON #### [facility] [address] [place] [address] Dr. Julia Velasquez BLAST % Normal [facility] Comment on above: Performed By: #### L IVER, BMP, LIPA, EDSON #### [facility] [address] [place] [address] Dr. Julia Velasquez CORRECTED WBC Normal 4.0-11.0 [facility] Comment on above: Performed By: #### L IVER, BMP, LIPA, EDSON #### [facility] [address] [place] [address] Dr. Julia Velasquez EOS # 0.00 103/ul Normal 0.00-0.70 [facility] Comment on above: Performed By: #### L IVER, BMP, LIPA, EDSON #### [facility] [address] [place] [address] Dr. Julia Velasquez EOS% 0.0 % Critically low 0.9-7.0 [facility] Comment on above: Performed By: #### L IVER, BMP, LIPA, EDSON #### [facility] [address] [place] [address] Dr. Julia Velasquez HCT 30.7 % Critically low 36.0-48.0 [facility] Comment on above: Performed By: #### L IVER, BMP, LIPA, EDSON #### [facility] [address] [place] [address] Dr. Julia Velasquez HGB 10.1 g/dl Critically low 12.0-16.0 [facility] Comment on above: Performed By: #### L IVER, BMP, LIPA, EDSON #### [facility] [address] [place] [address] Dr. Julia Velasquez LYMPHM # 0.67 103/ul Critically low 1.20-3.80 [facility] Comment on above: Performed By: #### L IVER, BMP, LIPA, EDSON #### [facility] [address] [place] [address] Dr. Julia Velasquez LYMPHM% 2.0 % Critically low 20.5-60.0 [facility] Comment on above: Performed By: #### L IVER, BMP, LIPA, EDSON #### [facility] [address] [place] [address] Dr. Julia Velasquez MCH 29.5 pg Normal 26.7-34.0 [facility] Comment on above: Performed By: #### L IVER, BMP, LIPA, EDSON #### [facility] [address] [place] [address] Dr. Julia Velasquez MCHC 32.9 g/dl Normal 29.9-35.2 [facility] Comment on above: Performed By: #### L IVER, BMP, LIPA, EDSON #### [facility] [address] [place] [address] Dr. Julia Velasquez MCV 89.8 fL Normal 81.0-99.0 [facility] Comment on above: Performed By: #### L IVER, BMP, LIPA, EDSON #### [facility] [address] [address] [address] Julia Velasquez METAMYELOCYTE # Normal [facility] Comment on above: Performed By: #### L IVER, BMP, LIPA, EDSON #### [facility] [address] [address] [address] Julia Velasquez METAMYELOCYTE % Normal [facility] Comment on above: Performed By: #### L IVER, BMP, LIPA, EDSON #### [facility] [address] [address] [address] Julia Velasquez MONOM# 0.33 103/ul Normal 0.30-0.80 [facility] Comment on above: Performed By: #### L IVER, BMP, LIPA, EDSON #### [facility] [address] [place] [address] Dr. Julia Velasquez MONOM% 1.0 % Critically low 1.7-12.0 [facility] Comment on above: Performed By: #### L IVER, BMP, LIPA, EDSON #### [facility] [address] [address] [address] Julia Velasquez MPV 10.1 fL Normal 9.5-13.5 [facility] Comment on above: Performed By: #### L IVER, BMP, LIPA, EDSON #### [facility] [address] [address] [address] Julia Velasquez MYELOCYTE # Normal [facility] Comment on above: Performed By: #### L IVER, BMP, LIPA, EDSON #### [facility] [address] [address] [address] Julia Velasquez MYELOCYTE % Normal [facility] Comment on above: Performed By: #### L IVER, BMP, LIPA, EDSON #### [facility] [address] [address] [address] Julia Velasquez NRBC Normal [facility] Comment on above: Performed By: #### L IVER, BMP, LIPA, EDSON #### [facility] [address] [place] [address] Dr. Julia Velasquez PLT 256 103/ul Normal 150-450 [facility] Comment on above: Performed By: #### L IVER, BMP, LIPA, EDSON #### [facility] [address] [place] [address] Dr. Julia Velasquez RBC 3.42 106/ul Critically low 4.20-5.40 [facility] Comment on above: Performed By: #### L IVER, BMP, LIPA, EDSON #### [facility] [address] [place] [address] Dr. Julia Velasquez RDW 15.9 % Critically high 11.0-15.0 [facility] Comment on above: Performed By: #### L IVER, BMP, LIPA, EDSON #### [facility] [address] [place] [address] Dr. Julia Velasquez SEG # 29.39 103/ul Critically high 1.40-6.50 [facility] Comment on above: Performed By: #### L IVER, BMP, LIPA, EDSON #### [facility] [address] [place] [address] Dr. Julia Velasquez SEG % 88.0 % Critically high 43.0-75.0 [facility] Comment on above: Performed By: #### L IVER, BMP, LIPA, EDSON #### [facility] [address] [place] [address] Dr. Julia Velasquez WBC 33.4 103/ul Critically high 4.0-11.0 [facility] Comment on above: Performed By: #### L IVER, BMP, LIPA, EDSON #### [facility] [address] [place] [address] Dr. Jluia Velasquez CULTURE BLOODon 12-11-2022 Microscopic examination of blood, culture Culture Observations: NO GROWTH AT 5 DAYS. Normal [facility] Comment on above: Performed By: #### C MP #### [facility] [address] [place] [address] Dr. Julia Velasquez Microscopic examination of blood, culture Culture Observations: NO GROWTH AT 5 DAYS. Normal [facility] Comment on above: Performed By: #### C MP #### [facility] [address] [address] [address] Julia Velasquez PROF 14(COMP METB)on 023 Albumin [Mass/Vol] 1.9 g/dL Critically low 3.4-5.0 [facility] Comment on above: Performed By: #### C MP #### [facility] [address] [place] [address] Dr. Julia Velasquez Albumin/Globulin [Mass ratio] 0.5 {ratio} Normal [facility] Comment on above: Performed By: #### C MP #### [facility] [address] [place] [address] Dr. Julia Velasquez ALP [Catalytic activity/Vol] 94 U/L Normal 46-116 [facility] Comment on above: Performed By: #### C MP #### [facility] [address] [place] [address] Dr. Julia Velasquez ALT [Catalytic activity/Vol] 34 U/L Normal 14-59 [facility] Comment on above: Performed By: #### C MP #### [facility] [address] [place] [address] Dr. Julia Velasquez Anion gap [Moles/Vol] 19.9 mmol/L Normal [facility] Comment on above: Performed By: #### C MP #### [facility] [address] [place] [address] Dr. Julia Velasquez AST [Catalytic activity/Vol] 82 U/L Critically high 15-37 [facility] Comment on above: Performed By: #### C MP #### [facility] [address] [place] [address] Dr. Julia Velasquez Bilirubin [Mass/Vol] 3.0 mg/dL Critically high 0.2-1.0 [facility] Comment on above: Performed By: #### C MP #### [facility] [address] [place] [address] Dr. Julia Velasquez Calcium [Mass/Vol] 8.2 mg/dL Critically low 8.5-10.1 [facility] Comment on above: Performed By: #### C MP #### [facility] [address] [address] [address] Julia Velasquez Chloride [Moles/Vol] 112 mmol/L Critically high 98-107 [facility] Comment on above: Performed By: #### C MP #### [facility] [address] [address] [address] Julia Velasquez CO2 [Moles/Vol] 18.7 mmol/L Critically low 21.0-32.0 [facility] Comment on above: Performed By: #### C MP #### [facility] [address] [address] [address] Julia Velasquez Creatinine [Mass/Vol] 1.75 mg/dL Critically high 0.55-1.02 [facility] Comment on above: Performed By: #### C MP #### [facility] [address] [address] [address] Julia Velasquez EGFR-AF ARGENTINE 34 mL/min/1.73m2 Critically low >=60 [facility] Comment on above: Performed By: #### C MP #### [facility] [address] [address] [address] Julia Velasquez EGFR-NON AF ARGENTINE 28 mL/min/1.73m2 Critically low >=60 [facility] Comment on above: Performed By: #### C MP #### [facility] [address] [address] [address] Julia Velasquez Globulin (S) [Mass/Vol] 3.6 g/dL Normal [facility] Comment on above: Performed By: #### C MP #### [facility] [address] [address] [address] Julia Velasquez Glucose [Mass/Vol] 95 mg/dL Normal 74-106 [facility] Comment on above: Performed By: #### C MP #### [facility] [address] [address] [address] Julia Velasquez Potassium [Moles/Vol] 4.6 mmol/L Normal 3.5-5.1 [facility] Comment on above: Performed By: #### C MP #### [facility] [address] [address] [address] Julia Velasquez Protein [Mass/Vol] 5.5 g/dL Critically low 6.4-8.2 Th [facility] Comment on above: Performed By: #### C MP #### [facility] [address] [address] [address] Julia Velasquez Sodium [Moles/Vol] 146 mmol/L Critically high 136-145 [facility] Comment on above: Performed By: #### C MP #### [facility] [address] [address] [address] Julia Velasquez Urea nitrogen [Mass/Vol] 58.0 mg/dL Critically high 7.0-18.0 [facility] Comment on above: Performed By: #### C MP #### [facility] [address] [address] [address] Julia Velasquez Urea nitrogen/Creatinine [Mass ratio] 33.1 mg/mg Normal [facility] Comment on above: Performed By: #### C MP #### [facility] [address] [address] [address] Julia Velasquez XR CHEST 12-11-2022 XR [...] BUCKY CRAIG Date: 2022-12-11 11:52 Normal [facility] CBC W MANUAL DIFFon 12-11-19 23 ATYPICAL LYMPH # 0.18 103/ul Normal [facility] Comment on above: Performed By: #### C BRYNN #### [facility] [address] [place] [address] Dr. Julia Velasquez ATYPICAL LYMPH % 1 % Normal [facility] Comment on above: Performed By: #### C BRYNN #### [facility] [address] [address] [address] Julia Velasquez BAND # 0.0 103/ul Normal 0.0-0.3 [facility] Comment on above: Performed By: #### C BRYNN #### [facility] [address] [place] [address] Dr. Julia Velasquez BAND % 0 % Normal 0-5 [facility] Comment on above: Performed By: #### C BRYNN #### [facility] [address] [place] [address] Dr. Julia Velasquez BASOM # 0.00 103/ul Normal 0.00-0.10 [facility] Comment on above: Performed By: #### C BRYNN #### [facility] [address] [place] [address] Dr. Julia Velasquez BASOM % 0.0 % Critically low 0.2-2.0 [facility] Comment on above: Performed By: #### C BRYNN #### [facility] [address] [place] [address] Dr. Julia Velasquez BLAST # Normal [facility] Comment on above: Performed By: #### C BRYNN #### [facility] [address] [place] [address] Dr. Julia Velasquez BLAST % Normal [facility] Comment on above: Performed By: #### C BRYNN #### [facility] [address] [place] [address] Dr. Julia Velasquez CORRECTED WBC Normal 4.0-11.0 [facility] Comment on above: Performed By: #### C BRYNN #### [facility] [address] [place], [place] [id number] Dr. Julia Velasquez EOS # 0.00 103/ul Normal 0.00-0.70 [facility] Comment on above: Performed By: #### C BRYNN #### [facility] [address] [place] [address] Dr. Julia Velasquez EOS% 0.0 % Critically low 0.9-7.0 [facility] Comment on above: Performed By: #### C BRYNN #### [facility] [address] [address] [address] Julia Velasquez HCT 31.8 % Critically low 36.0-48.0 [facility] Comment on above: Performed By: #### C BRYNN #### [facility] [address] [place] [address] Dr. Julia Velasquez HGB 10.4 g/dl Critically low 12.0-16.0 [facility] Comment on above: Performed By: #### Edi SWAIN #### [facility] [address] [place] [address] Dr. Julia Velasquez LYMPHM # 0.35 103/ul Critically low 1.20-3.80 [facility] Comment on above: Performed By: #### C BRYNN #### [facility] [address] [place] [address] Dr. Julia Velasquez LYMPHM% 2.0 % Critically low 20.5-60.0 [facility] Comment on above: Performed By: #### Edi SWAIN #### [facility] [address] [place] [address] Dr. Julia Velasquez MCH 29.3 pg Normal 26.7-34.0 [facility] Comment on above: Performed By: #### Edi SWAIN #### [facility] [address] [place] [address] Dr. Julia Velasquez MCHC 32.7 g/dl Normal 29.9-35.2 [facility] Comment on above: Performed By: #### Edi SWAIN #### [facility] [address] [place] [address] Dr. Julia Velasquez MCV 89.6 fL Normal 81.0-99.0 [facility] Comment on above: Performed By: #### C BCMAN #### [facility] [address] [place] [address] Dr. Julia Velasquez METAMYELOCYTE # Normal [facility] Comment on above: Performed By: #### C BCJACKLYN #### [facility] [address] [place] [address] Dr. Julia Velasquez METAMYELOCYTE % Normal [facility] Comment on above: Performed By: #### C BCMAN #### [facility] [address] [place] [address] Dr. Julia Velasquez MONOM# 0.88 103/ul Critically high 0.30-0.80 [facility] Comment on above: Performed By: #### C BCJACKLYN #### [facility] [address] [place] [address] Dr. Julia Velasquez MONOM% 5.0 % Normal 1.7-12.0 [facility] Comment on above: Performed By: #### C BCJACKLYN #### [facility] [address] [place] [address] Dr. Julia Velasquez MPV 10.6 fL Normal 9.5-13.5 [facility] Comment on above: Performed By: #### C BRYNN #### [facility] [address] [place] [address] Dr. Julia Velasquez MYELOCYTE # Normal [facility] Comment on above: Performed By: #### C BRYNN #### [facility] [address] [place] [address] Dr. Julia Velasquez MYELOCYTE % Normal [facility] Comment on above: Performed By: #### C BCJACKLYN #### [facility] [address] [place] [address] Dr. Julia Velasquez NRBC Normal [facility] Comment on above: Performed By: #### C BCMAN #### [facility] [address] [place] [address] Dr. Julia Velasquez PLT 231 103/ul Normal 150-450 [facility] Comment on above: Performed By: #### C BCJACKLYN #### [facility] [address] [address] [address] Julia Velasquez RBC 3.55 106/ul Critically low 4.20-5.40 [facility] Comment on above: Performed By: #### C BRYNN #### [facility] [address] [address] [address] Julia Velasquez RDW 15.1 % Critically high 11.0-15.0 [facility] Comment on above: Performed By: #### C BRYNN #### [facility] [address] [address] [address] Julia Velasquez SEG # 16.19 103/ul Critically high 1.40-6.50 [facility] Comment on above: Performed By: #### C BRYNN #### [facility] [address] [address] [address] Julia Velasquez SEG % 92.0 % Critically high 43.0-75.0 [facility] Comment on above: Performed By: #### C BRYNN #### [facility] [address] [address] [address] Julia Velasquez WBC 17.6 103/ul Critically high 4.0-11.0 [facility] Comment on above: Performed By: #### C BRYNN #### [facility] [address] [address] [address] Julia Velasquez FERRITINon 12-10-2022 Ferritin [Mass/Vol] 450.0 ng/mL Critically high 8.0-252.0 [facility] Comment on above: Performed By: #### C MP #### [facility] [address] [address] [address] Julia Velasquez IRON AND TIBCon 12-10-2022 % SATURATION 5.6 % Normal [facility] Comment on above: Performed By: #### C MP #### [facility] [address] [address] [address] Julia Velasquez Iron [Mass/Vol] 11.0 ug/dL Critically low 50.0-170.0 [facility] Comment on above: Performed By: #### C MP #### [facility] [address] [address] [address] Julia Velasquez TIBC DIRECT 195.0 ug/dL Critically low 250.0-450.0 [facility] Comment on above: Performed By: #### C MP #### [facility] [address] [address] [address] Julia Velasquez PROF 14(COMP METB)on 023 Albumin [Mass/Vol] 2.0 g/dL Critically low 3.4-5.0 [facility] Comment on above: Performed By: #### C MP #### [facility] [address] [address] [address] Julia Velasquez Albumin/Globulin [Mass ratio] 0.4 {ratio} Normal [facility] Comment on above: Performed By: #### C MP #### [facility] [address] [place] [address] Dr. Julia Velasquez ALP [Catalytic activity/Vol] 87 U/L Normal 46-116 [facility] Comment on above: Performed By: #### C MP #### [facility] [address] [place] [address] Dr. Julia Velasquez ALT [Catalytic activity/Vol] 32 U/L Normal 14-59 [facility] Comment on above: Performed By: #### C MP #### [facility] [address] [place] [address] Dr. Julia Velasquez Anion gap [Moles/Vol] 16.2 mmol/L Normal [facility] Comment on above: Performed By: #### C MP #### [facility] [address] [place] [address] Dr. Julia Velasquez AST [Catalytic activity/Vol] 50 U/L Critically high 15-37 [facility] Comment on above: Performed By: #### C MP #### [facility] [address] [place] [address] Dr. Julia Velasquez Bilirubin [Mass/Vol] 1.7 mg/dL Critically high 0.2-1.0 [facility] Comment on above: Performed By: #### C MP #### [facility] [address] [address] [address] Julia Velasquez Calcium [Mass/Vol] 8.6 mg/dL Normal 8.5-10.1 [facility] Comment on above: Performed By: #### C MP #### [facility] [address] [address] [address] Julia Velasquez Chloride [Moles/Vol] 107 mmol/L Normal 98-107 [facility] Comment on above: Performed By: #### C MP #### [facility] [address] [address] [address] Julia Velasquez CO2 [Moles/Vol] 22.1 mmol/L Normal 21.0-32.0 [facility] Comment on above: Performed By: #### C MP #### [facility] [address] [address] [address] Julia Velasquez Creatinine [Mass/Vol] 2.38 mg/dL Critically high 0.55-1.02 [facility] Comment on above: Performed By: #### C MP #### [facility] [address] [address] [address] Julia Velasquez EGFR-AF ARGENTINE 24 mL/min/1.73m2 Critically low >=60 [facility] Comment on above: Performed By: #### C MP #### [facility] [address] [address] [address] Julia Velasquez EGFR-NON AF ARGENTINE 20 mL/min/1.73m2 Critically low >=60 [facility] Comment on above: Performed By: #### C MP #### [facility] [address] [address] [address] Julia Velasquez Globulin (S) [Mass/Vol] 4.7 g/dL Normal [facility] Comment on above: Performed By: #### C MP #### [facility] [address] [address] [address] Julia Velasquez Glucose [Mass/Vol] 116 mg/dL Critically high 74-106 [facility] Comment on above: Performed By: #### C MP #### [facility] [address] [address] [address] Julia Velasquez Potassium [Moles/Vol] 3.3 mmol/L Critically low 3.5-5.1 [facility] Comment on above: Performed By: #### C MP #### [facility] [address] [place] [address] Dr. Julia Velasquez Protein [Mass/Vol] 6.7 g/dL Normal 6.4-8.2 [facility] [place] Comment on above: Performed By: #### C MP #### [facility] [address] [place] [address] Dr. Julia Velasquez Sodium [Moles/Vol] 142 mmol/L Normal 136-145 [facility] [place] Comment on above: Performed By: #### C MP #### [facility] [address] [place] [address] Dr. Julia Velasquez Urea nitrogen [Mass/Vol] 57.0 mg/dL Critically high 7.0-18.0 [facility] Comment on above: Performed By: #### C MP #### [facility] [address] [place] [address] Dr. Julia Velasquez Urea nitrogen/Creatinine [Mass ratio] 23.9 mg/mg Normal [facility] Comment on above: Performed By: #### C MP #### [facility] [address] [place] [address] Dr. Julia Velasquez AMYLASEon 12-09-2022 Amylase [Catalytic activity/Vol] 18 U/L Critically low 25-115 [facility] Comment on above: Performed By: #### L IVER, BMP, LIPA, EDSON #### [facility] [address] [place] [address] Dr. Julia Velasquez CBC W MANUAL DIFFon 12-10-19 ATYPICAL LYMPH # Normal [facility] Comment on above: Performed By: #### C MP #### [facility] [address] [place] [address] Dr. Julia Velasquez ATYPICAL LYMPH % Normal [facility] Comment on above: Performed By: #### C MP #### [facility] [address] [place] [address] Dr. Julia Velasquez BAND # 0.8 103/ul Critically high 0.0-0.3 [facility] Comment on above: Performed By: #### C MP #### [facility] [address] [address] [address] Julia Velasquez BAND % 4 % Normal 0-5 [facility] Comment on above: Performed By: #### C MP #### [facility] [address] [address] [address] Julia Velasquez BASOM # 0.00 103/ul Normal 0.00-0.10 [facility] Comment on above: Performed By: #### C MP #### [facility] [address] [address] [address] Julia Velasquez BASOM % 0.0 % Critically low 0.2-2.0 [facility] Comment on above: Performed By: #### C MP #### [facility] [address] [place] [address] Dr. Julia Velasquez BLAST # Normal [facility] Comment on above: Performed By: #### C MP #### [facility] [address] [place] [address] Dr. Julia Velasquez BLAST % Normal [facility] Comment on above: Performed By: #### C MP #### [facility] [address] [place] [address] Dr. Julia Velasquez CORRECTED WBC Normal 4.0-11.0 [facility] Comment on above: Performed By: #### C MP #### [facility] [address] [place] [address] Dr. Julia Velasquez EOS # 0.00 103/ul Normal 0.00-0.70 [facility] Comment on above: Performed By: #### C MP #### [facility] [address] [place] [address] Dr. Julia Velasquez EOS% 0.0 % Critically low 0.9-7.0 [facility] Comment on above: Performed By: #### C MP #### [facility] [address] [place] [address] Dr. Julia Velasquez HCT 27.2 % Critically low 36.0-48.0 [facility] Comment on above: Performed By: #### C MP #### [facility] [address] [place] [address] Dr. Julia Velasquez HGB 8.9 g/dl Critically low 12.0-16.0 [facility] Comment on above: Performed By: #### C MP #### [facility] [address] [place] [address] Dr. Julia Velasquez LYMPHM # 0.99 103/ul Critically low 1.20-3.80 [facility] Comment on above: Performed By: #### C MP #### [facility] [address] [place] [address] Dr. Julia Velasquez LYMPHM% 5.0 % Critically low 20.5-60.0 [facility] Comment on above: Performed By: #### C MP #### [facility] [address] [place] [address] Dr. Julia Velasquez MCH 29.3 pg Normal 26.7-34.0 [facility] Comment on above: Performed By: #### C MP #### [facility] [address] [place] [address] Dr. Julia Velasquez MCHC 32.7 g/dl Normal 29.9-35.2 [facility] Comment on above: Performed By: #### C MP #### [facility] [address] [place] [address] Dr. Julia Velasquez MCV 89.5 fL Normal 81.0-99.0 [facility] Comment on above: Performed By: #### C MP #### [facility] [address] [place] [address] Dr. Julia Velasquez METAMYELOCYTE # Normal [facility] Comment on above: Performed By: #### C MP #### [facility] [address] [place] [address] Dr. Julia Velasquez METAMYELOCYTE % Normal [facility] Comment on above: Performed By: #### C MP #### [facility] [address] [place] [address] Dr. Julia Velasquez MONOM# 0.59 103/ul Normal 0.30-0.80 [facility] Comment on above: Performed By: #### C MP #### [facility] [address] [place] [address] Dr. Julia Velasquez MONOM% 3.0 % Normal 1.7-12.0 [facility] Comment on above: Performed By: #### C MP #### [facility] [address] [place] [address] Dr. Julia Velasquez MPV 10.9 fL Normal 9.5-13.5 [facility] Comment on above: Performed By: #### C MP #### [facility] [address] [place] [address] Dr. Julia Velasquez MYELOCYTE # Normal [facility] Comment on above: Performed By: #### C MP #### [facility] [address] [place] [address] Dr. Julia Velasquez MYELOCYTE % Normal [facility] Comment on above: Performed By: #### C MP #### [facility] [address] [place] [address] Dr. Julia Velasquez NRBC Normal [facility] Comment on above: Performed By: #### C MP #### [facility] [address] [place] [address] Dr. Julia Velasquez PLT 268 103/ul Normal 150-450 [facility] Comment on above: Performed By: #### C MP #### [facility] [address] [place] [address] Dr. Julia Velasquez RBC 3.04 106/ul Critically low 4.20-5.40 [facility] Comment on above: Performed By: #### C MP #### [facility] [address] [place] [address] Dr. Julia Velasquez RDW 15.0 % Normal 11.0-15.0 [facility] Comment on above: Performed By: #### C MP #### [facility] [address] [place] [address] Dr. Julia Velasquez SEG # 17.42 103/ul Critically high 1.40-6.50 [facility] Comment on above: Performed By: #### C MP #### [facility] [address] [place], [place] [address] Dr. Julia Velasquez SEG % 88.0 % Critically high 43.0-75.0 [facility] Comment on above: Performed By: #### C MP #### [facility] [address], [place] [address] Dr. Julia Velasquez WBC 19.8 103/ul Critically high 4.0-11.0 [facility] Comment on above: Performed By: #### C MP #### [facility] [address] [place], [place] [address] ABD/PELVIS WO CONon [...] RAKESH MANNING Date: 2022-12-09 19:43 Normal [facility] CT FACIAL BONES WO CONon CT FACIAL [...] KELVIN MCLAUGHLIN Date: 2022-12-09 20:18 Normal [facility] Covid-19 PCR ([facility])on SARS-CoV-2 (COVID-19) RNA MARIO+probe Ql (Unsp spec) Not detected Normal NOT DETECTED [facility] Comment on above: Result Comment: When diagnostic [...] for this test is supported by the [employer] Chair of Health and Human Service's declaration that [...] longer be used). Performed By: #### L NANCY MONDRAGON LIPA, EDSON #### [facility] [address] [place] [address] Dr. Julia Velasquez LIPASEon 12-09-2022 Lipase [Catalytic activity/Vol] 86.0 U/L Normal 73.0-393.0 [facility] Comment on above: Performed By: #### L NANCY MONDRAGON LIPA, EDSON #### [facility] [address] [place] [address] Dr. Julia Velasquez LIVER PROFILEon 12-09-2022 Albumin [Mass/Vol] 2.4 g/dL Critically low 3.4-5.0 [facility] Comment on above: Performed By: #### L IVER, BMP, LIPA, EDSON #### [facility] [address] [place] [address] Dr. Julia Velasquez Albumin/Globulin [Mass ratio] 0.5 {ratio} Normal [facility] Comment on above: Performed By: #### L IVER, BMP, LIPA, EDSON #### [facility] [address] [place] [address] Dr. Julia Velasquez ALP [Catalytic activity/Vol] 104 U/L Normal 46-116 [facility] Comment on above: Performed By: #### L IVER, BMP, LIPA, EDSON #### [facility] [address] [place] [address] Dr. Julia Velasquez ALT [Catalytic activity/Vol] 35 U/L Normal 14-59 [facility] Comment on above: Performed By: #### L IVER, BMP, LIPA, EDSON #### [facility] [address] [place] [address] Dr. Julia Velasquez AST [Catalytic activity/Vol] 59 U/L Critically high 15-37 [facility] Comment on above: Performed By: #### L IVER, BMP, LIPA, EDSON #### [facility] [address] [place] [address] Dr. Julia Velasquez BILI, CONJUGATED 1.0 mg/dL Critically high 0.0-0.2 [facility] Comment on above: Performed By: #### L IVER, BMP, LIPA, EDSON #### [facility] [address] [place] [address] Dr. Julia Velasquez Bilirubin [Mass/Vol] 1.9 mg/dL Critically high 0.2-1.0 [facility] Comment on above: Performed By: #### L IVER, BMP, LIPA, EDSON #### [facility] [address] [place] [address] Dr. Julia Velasquez Globulin (S) [Mass/Vol] 5.0 g/dL Normal [facility] Comment on above: Performed By: #### L IVER, BMP, LIPA, EDSON #### [facility] [address] [place] [address] Dr. Julia Velasquez Protein [Mass/Vol] 7.4 g/dL Normal 6.4-8.2 [facility] [place] Comment on above: Performed By: #### L IVER, BMP, LIPA, EDSON #### [facility] [address] [place] [address] Dr. Julia Velasquez OCC BLD IMMUNOASSAYon 2022 OCCULT BLOOD Negative Normal NEGATIVE [facility] Comment on above: Performed By: #### L IVER, BMP, LIPA, EDSON #### [facility] [address] [place] [address] Dr. Julia Velasquez PROF CHEM 8 (BAS METB)on Anion gap [Moles/Vol] 18.8 mmol/L Normal [facility] Comment on above: Performed By: #### L IVER, BMP, LIPA, EDSON #### [facility] [address] [place] [address] Dr. Julia Velasquez Calcium [Mass/Vol] 9.2 mg/dL Normal 8.5-10.1 [facility] [place] Comment on above: Performed By: #### L IVER, BMP, LIPA, EDSON #### [facility] [address] [place] [address] Dr. Julia Velasquez Chloride [Moles/Vol] 100 mmol/L Normal 98-107 [facility] Comment on above: Performed By: #### L IVER, BMP, LIPA, EDSON #### [facility] [address] [place] [address] Dr. Julia Velasquez CO2 [Moles/Vol] 24.3 mmol/L Normal 21.0-32.0 [facility] Comment on above: Performed By: #### L IVER, BMP, LIPA, EDSON #### [facility] [address] [place] [address] Dr. Julia Velasquez Creatinine [Mass/Vol] 2.98 mg/dL Critically high 0.55-1.02 [facility] Comment on above: Performed By: #### L IVER, BMP, LIPA, EDSON #### [facility] [address] [address] [address] Julia Velasquez EGFR-AF ARGENTINE 18 mL/min/1.73m2 Critically low >=60 [facility] Comment on above: Performed By: #### L IVER, BMP, LIPA, EDSON #### [facility] [address] [place] [address] Dr. Julia Velasquez EGFR-NON AF ARGENTINE 15 mL/min/1.73m2 Critically low >=60 [facility] Comment on above: Performed By: #### L IVER, BMP, LIPA, EDSON #### [facility] [address] [place] [address] Dr. Julia Velasquez Glucose [Mass/Vol] 116 mg/dL Critically high 74-106 [facility] Comment on above: Performed By: #### L IVER, BMP, LIPA, EDSON #### [facility] [address] [place] [address] Dr. Julia Velasquez Potassium [Moles/Vol] 4.1 mmol/L Normal 3.5-5.1 [facility] Comment on above: Performed By: #### L IVER, BMP, LIPA, EDSON #### [facility] [address] [place] [address] Dr. Julia Velasquez Sodium [Moles/Vol] 139 mmol/L Normal 136-145 [facility] Comment on above: Performed By: #### L IVER, BMP, LIPA, EDSON #### [facility] [address] [place] [address] Dr. Julia Velasquez Urea nitrogen [Mass/Vol] 57.0 mg/dL Critically high 7.0-18.0 [facility] Comment on above: Performed By: #### L IVER, BMP, LIPA, EDSON #### [facility] [address] [place] [address] Dr. Julia Velasquez Urea nitrogen/Creatinine [Mass ratio] 19.1 mg/mg Normal [facility] Comment on above: Performed By: #### L IVER, BMP, LIPA, EDSON #### [facility] [address] [place] [address] Dr. Julia Velasquez CBC AUTO DIFFon 08-26-2022 BASO # 0.0 103/ul Normal 0.0-0.1 [facility] Comment on above: Performed By: #### L IVER, BMP, LIPA, EDSON #### [facility] [address] [place] [address] Dr. Julia Velasquez Basophils/100 WBC (Bld) 0.6 % Normal 0.2-2.0 [facility] Comment on above: Performed By: #### L IVER, BMP, LIPA, EDSON #### [facility] [address] [place] [address] Dr. Julia Velasquez EO # 0.3 103/ul Normal 0.0-0.7 [facility] Comment on above: Performed By: #### L IVER, BMP, LIPA, EDSON #### [facility] [address] [place] [address] Dr. Julia Velasquez Eosinophils/100 WBC (Bld) 4.9 % Normal 0.9-7.0 [facility] Comment on above: Performed By: #### L IVER, BMP, LIPA, EDSON #### [facility] [address] [place] [address] Dr. Julia Velasquez Erythrocyte distribution width (RBC) [Ratio] 13.2 % Normal 11.0-15.0 [facility] Comment on above: Performed By: #### L IVER, BMP, LIPA, EDSON #### [facility] [address] [place] [address] Dr. Julia Velasquez Hematocrit (Bld) [Volume fraction] 40.9 % Normal 36.0-48.0 [facility] Comment on above: Performed By: #### L IVER, BMP, LIPA, EDSON #### [facility] [address] [place] [address] Dr. Julia Velasquez Hemoglobin (Bld) [Mass/Vol] 13.0 g/dL Normal 12.0-16.0 [facility] Comment on above: Performed By: #### L IVER, BMP, LIPA, EDSON #### [facility] [address] [place] [address] Dr. Julia Velasquez IG # 0.05 10e3/ul Critically high 0.00-0.03 [facility] Comment on above: Performed By: #### L IVER, BMP, LIPA, EDSON #### [facility] [address] [place] [address] Dr. Julia Velasquez IG % 1.0 % Critically high 0.0-0.5 [facility] Comment on above: Performed By: #### L IVER, BMP, LIPA, EDSON #### [facility] [address] [place] [address] Dr. Julia Velasquez LYMPH # 1.3 103/ul Normal 1.2-3.8 [facility] Comment on above: Performed By: #### L IVER, BMP, LIPA, EDSON #### [facility] [address] [place] [address] Dr. Julia Velasquez Lymphocytes/100 WBC (Bld) 26.1 % Normal 20.5-60.0 [facility] Comment on above: Performed By: #### L IVER, BMP, LIPA, EDSON #### [facility] [address] [place] [address] Dr. Julia Velasquez MANUAL DIFF REQ NO Normal [facility] Comment on above: Performed By: #### L IVER, BMP, LIPA, EDSON #### [facility] [address] [place] [address] Dr. Julia Velasquez MCH (RBC) [Entitic mass] 29.6 pg Normal 26.7-34.0 [facility] Comment on above: Performed By: #### L IVER, BMP, LIPA, EDSON #### [facility] [address] [place] [address] Dr. Julia Velasquez MCHC (RBC) [Mass/Vol] 31.8 g/dL Normal 29.9-35.2 [facility] Comment on above: Performed By: #### L IVER, BMP, LIPA, EDSON #### [facility] Laboratory [address] [place] [address] Dr. Julia Velasquez MCV (RBC) [Entitic vol] 93.2 fL Normal 81.0-99.0 [facility] Comment on above: Performed By: #### L IVER, BMP, LIPA, EDSON #### [facility] Laboratory [address] [place] [address] Dr. Julia Velasquez MONO # 0.4 103/ul Normal 0.3-0.8 [facility] Comment on above: Performed By: #### L IVER, BMP, LIPA, EDSON #### [facility] Laboratory [address] [place] [address] Dr. Julia Velasquez Monocytes/100 WBC (Bld) 7.7 % Normal 1.7-12.0 [facility] Comment on above: Performed By: #### L IVER, BMP, LIPA, EDSON #### [facility] Laboratory [address] [place] [address] Dr. Julia Velasquez NEUT # 3.0 103/ul Normal 1.4-6.5 [facility] Comment on above: Performed By: #### L IVER, BMP, LIPA, EDSON #### [facility] Laboratory [address] [place] [address] Dr. Julia Velasquez Neutrophils/100 WBC (Bld) 59.7 % Normal 43.0-75.0 [facility] Comment on above: Performed By: #### L IVER, BMP, LIPA, EDSON #### [facility] Laboratory [address] [place] [address] Dr. Julia Velasquez Platelet mean volume (Bld) [Entitic vol] 10.6 fL Normal 9.5-13.5 [facility] Comment on above: Performed By: #### L IVER, BMP, LIPA, EDSON #### [facility] Laboratory [address] [place] [address] Dr. Julia Velasquez PLT 248 103/ul Normal 150-450 [facility] Comment on above: Performed By: #### L IVER, BMP, LIPA, EDSON #### [facility] Laboratory [address] [place] [address] Dr. Julia Velasquez RBC 4.39 106/ul Normal 4.20-5.40 [facility] Comment on above: Performed By: #### L IVER, BMP, LIPA, EDSON #### [facility] Laboratory [address] [address] [address] Julia Velasquez WBC 5.1 103/ul Normal 4.0-11.0 [facility] Comment on above: Performed By: #### L IVER, BMP, LIPA, EDSON #### [facility] Laboratory [address] [address] [address] Julia Velasquez LIPID PROFILEon 08-26-2022 CHOL-HDL RATIO NORM SEE BELOW Normal [facility] Comment on above: Result Comment: 3.3 - 4.4 LOW RISK 4.4 - 7.1 AVERAGE RISK 7.1 - 11.0 MODERATE RISK >11.0 HIGH RISK Performed By: #### L IVER, BMP, LIPA, EDSON #### [facility] Laboratory [address] [address] [address] Julia Velasquez Cholesterol [Mass/Vol] 177 mg/dL Normal <=200 [facility] Comment on above: Performed By: #### L IVER, BMP, LIPA, EDSON #### [facility] Laboratory [address] [address] [address] Julia Velasquez Cholesterol in HDL [Mass/Vol] 56 mg/dL Normal 40-60 [facility] Comment on above: Performed By: #### L IVER, BMP, LIPA, EDSON #### [facility] Laboratory [address] [address] [address] Julia Velasquez Cholesterol in LDL [Mass/Vol] 99.4 mg/dL Normal [facility] Comment on above: Performed By: #### L IVER, BMP, LIPA, EDSON #### [facility] [address] [address] [address] Julia Velasquez Cholesterol.total/Ch olesterol in HDL [Mass ratio] 3.2 {ratio} Normal [facility] Comment on above: Performed By: #### L IVER, BMP, LIPA, EDSON #### [facility] Laboratory [address] [address] [address] Julia Velasquez HDL NORMAL > or = 60 mg/dl - LO W CARDIOVASCULAR RISK <40 mg/dl - HIGH CARDIOVASCULAR RISK Normal [facility] Comment on above: Performed By: #### L IVER, BMP, LIPA, EDSON #### [facility] Laboratory [address] [address] [address] Julia Velasquez LDL CALC NORMAL SEE BELOW Normal [facility] Comment on above: Result Comment: <100 mg/dl OPTIMAL 100 - 129 mg/dl NEAR OR ABOVE OPTIMAL 130 - 159 mg/dl BORDERLINE HIGH 160 - 189 mg/dl HIGH >190 mg/dl VERY HIGH Performed By: #### L IVER, BMP, LIPA, EDSON #### [facility] [address] [address] [address] Julia Velasquez Triglyceride [Mass/Vol] 108 mg/dL Normal <=150 [facility] Comment on above: Performed By: #### L IVER, BMP, LIPA, EDSON #### [facility] [address] [address] [address] Julia Velasquez VLDL CALC 21.6 mg/dL Normal [facility] Comment on above: Performed By: #### L IVER, BMP, LIPA, EDSON #### [facility] [address] [address] [address] Julia Velasquez PROF CHEM 8 (BAS METB)on Anion gap [Moles/Vol] 11.5 mmol/L Normal [facility] Comment on above: Performed By: #### L IVER, BMP, LIPA, EDSON #### [facility] [address] [address] [address] Julia Velasquez Calcium [Mass/Vol] 9.3 mg/dL Normal 8.5-10.1 [facility] Comment on above: Performed By: #### L IVER, BMP, LIPA, EDSON #### [facility] [address] [address] [address] Julia Velasquez Chloride [Moles/Vol] 104 mmol/L Normal 98-107 [facility] Comment on above: Performed By: #### L IVER, BMP, LIPA, EDSON #### [facility] [address] [address] [address] Julia Velasquez CO2 [Moles/Vol] 30.5 mmol/L Normal 21.0-32.0 [facility] Comment on above: Performed By: #### L IVER, BMP, LIPA, EDSON #### [facility] Laboratory [address] [address] [address] Julia Velasquez Creatinine [Mass/Vol] 1.09 mg/dL Critically high 0.55-1.02 [facility] Comment on above: Performed By: #### L IVER, BMP, LIPA, EDSON #### [facility] [address] [address] [address] Julia Velasquez EGFR-AF ARGENTINE 59 mL/min/1.73m2 Critically low >=60 [facility] Comment on above: Performed By: #### L IVER, BMP, LIPA, EDSON #### [facility] Laboratory [address] [place] [address] Dr. Julia Velasquez EGFR-NON AF ARGENTINE 48 mL/min/1.73m2 Critically low >=60 [facility] Comment on above: Performed By: #### L IVER, BMP, LIPA, EDSON #### [facility] [address] [address] [address] Julia Velasquez Glucose [Mass/Vol] 89 mg/dL Normal 74-106 [facility] Comment on above: Performed By: #### L IVER, BMP, LIPA, EDSON #### [facility] [address] [address] [address] Julia Velasquez Potassium [Moles/Vol] 4.0 mmol/L Normal 3.5-5.1 [facility] Comment on above: Performed By: #### L IVER, BMP, LIPA, EDSON #### [facility] [address] [address] [address] Julia Velasquez Sodium [Moles/Vol] 142 mmol/L Normal 136-145 [facility] Comment on above: Performed By: #### L IVER, BMP, LIPA, EDSON #### [facility] [address] [address] [address] Julia Velasquez Urea nitrogen [Mass/Vol] 16.0 mg/dL Normal 7.0-18.0 [facility] Comment on above: Performed By: #### L NANCY MONDRAGON LIPA, AMY #### [facility] [address] [address] [address] Julia Velasquez Urea nitrogen/Creatinine [Mass ratio] 14.7 mg/mg Normal [facility] Comment on above: Performed By: #### L NANCY MONDRAGON LIPA, AMY #### [facility] [address] [address] [address] Julia Velasquez XR DEXA BONE DENSITYon [...] by: BUCKY CRAIG Date: 2022-08-25 14:10 Normal [facility] Vital Signs Date Time Vital Sign Value Performing Clinician Facility 09-18-2024 23:59-0500 Body mass index (BMI) [Ratio] 23.76 kg/m2 Shivam Ponce MD Work Phone: [facility] 09-18-2024 23:59-0500 Body weight 59.88 kg Shivam Ponce MD Work Phone: [facility] 09-18-2024 23:59-0500 Diastolic blood pressure 84 mm[Hg] Shivam Ponce MD Work Phone: [facility] 09-18-2024 23:59-0500 Heart rate 65 /min Shivam Ponce MD Work Phone: [facility] 09-18-2024 23:59-0500 Systolic blood pressure 180 mm[Hg] Shivam Ponce MD Work Phone: [facility] 09-13-2024 14:09-0500 Body height 165.1 cm Kyle Ball DO Work Phone: [facility] 09-13-2024 14:09-0500 Body mass index (BMI) [Ratio] 23 kg/m2 Kyle Ball DO Work Phone: [facility] 09-13-2024 14:09-0500 Body weight 62.7 kg Kyle Ball DO Work Phone: [facility] 09-13-2024 14:09-0500 Diastolic blood pressure 76 mm[Hg] Kyle Ball DO Work Phone: [facility] 09-13-2024 14:09-0500 Heart rate 58 /min Kyle Ball DO Work Phone: [facility] 09-13-2024 14:09-0500 Respiratory rate 12 /min Kyle Ball DO Work Phone: [facility] 09-13-2024 14:09-0500 Systolic blood pressure 148 mm[Hg] Kyle Ball DO Work Phone: [facility] 09-05-2024 14:31-0500 Body height 165.1 cm Kyle Ball DO Work Phone: [facility] 09-05-2024 14:31-0500 Body mass index (BMI) [Ratio] 23.1 kg/m2 Kyle Ball DO Work Phone: [facility] 09-05-2024 14:31-0500 Body weight 63.04 kg Kyle Ball DO Work Phone: [facility] 09-05-2024 14:31-0500 Diastolic blood pressure 80 mm[Hg] Kyle Ball DO Work Phone: [facility] 09-05-2024 14:31-0500 Heart rate 74 /min Kyle Ball DO Work Phone: [facility] 09-05-2024 14:31-0500 SaO2% (BldA) [Mass fraction] 98 % Kyle Ball DO Work Phone: [facility] 09-05-2024 14:31-0500 Systolic blood pressure 176 mm[Hg] Kyle Ball DO Work Phone: [facility] 08-18-2024 17:29-0500 Body mass index (BMI) [Ratio] 24.33 kg/m2 Shivam Ponce MD Work Phone: [facility] 08-18-2024 17:29-0500 Body weight 61.33 kg Shivam Ponce MD Work Phone: [facility] 08-18-2024 17:29-0500 Diastolic blood pressure 72 mm[Hg] Shivam Ponce MD Work Phone: [facility] 08-18-2024 17:29-0500 Systolic blood pressure 112 mm[Hg] Shivam Ponce MD Work Phone: [facility] 08-16-2024 11:10-0500 Body height 165.1 cm Kyle Ball DO Work Phone: [facility] 08-16-2024 11:10-0500 Body mass index (BMI) [Ratio] 22.7 kg/m2 Kyle Ball DO Work Phone: [facility] 08-16-2024 11:10-0500 Body weight 62 kg Kyle Ball DO Work Phone: [facility] 07-20-2024 11:01-0500 Body height 166.37 cm Kyle Ball DO Work Phone: [facility] 07-20-2024 11:01-0500 Body mass index (BMI) [Ratio] 22.6 kg/m2 Kyle Ball DO Work Phone: [facility] 07-20-2024 11:01-0500 Body weight 62.65 kg Kyle Ball DO Work Phone: [facility] 07-20-2024 11:01-0500 Diastolic blood pressure 72 mm[Hg] Kyle Ball DO Work Phone: [facility] 07-20-2024 11:01-0500 Heart rate 61 /min Kyle Ball DO Work Phone: [facility] 07-20-2024 11:01-0500 Respiratory rate 12 /min Kyle Ball DO Work Phone: [facility] 07-20-2024 11:01-0500 Systolic blood pressure 135 mm[Hg] Kyle Ball DO Work Phone: [facility] 07-07-2024 11:33-0400 Body mass index (BMI) [Ratio] 25.02 kg/m2 Shivam Ponce MD Work Phone: [facility] 07-07-2024 11:33-0400 Body weight 63.05 kg Shivam Ponce MD Work Phone: [facility] 07-07-2024 11:33-0400 Diastolic blood pressure 70 mm[Hg] Shivam Ponce MD Work Phone: [facility] 07-07-2024 11:33-0400 Heart rate 66 /min Shivam Ponce MD Work Phone: [facility] 07-07-2024 11:33-0400 Systolic blood pressure 102 mm[Hg] Shivam Ponce MD Work Phone: [facility] 06-14-2024 11:09-0400 Body height 166.37 cm [facility] 06-14-2024 11:09-0400 Body mass index (BMI) [Ratio] 22.3 kg/m2 [facility] 06-14-2024 11:09-0400 Body weight 61.74 kg [facility] 06-14-2024 11:09-0400 Diastolic blood pressure 77 mm[Hg] [facility] 06-14-2024 11:09-0400 Heart rate 64 /min [facility] 06-14-2024 11:09-0400 Respiratory rate 12 /min [facility] 06-14-2024 11:09-0400 Systolic blood pressure 132 mm[Hg] [facility] 06-01-2024 11:33-0400 Body height 158.8 cm Shivam Ponce MD Work Phone: [facility] 06-01-2024 11:33-0400 Body mass index (BMI) [Ratio] 23.94 kg/m2 Shivam Ponce MD Work Phone: [facility] 06-01-2024 11:33-0400 Body weight 60.33 kg Shivam Ponce MD Work Phone: [facility] 06-01-2024 11:33-0400 Diastolic blood pressure 74 mm[Hg] Sihvam Ponce MD Work Phone: [facility] 06-01-2024 11:33-0400 Systolic blood pressure 122 mm[Hg] Shivam Ponce MD Work Phone: [facility] 05-27-2024 11:40-0400 Body height 166.37 cm [facility] 05-27-2024 11:40-0400 Body mass index (BMI) [Ratio] 21.8 kg/m2 [facility] 05-27-2024 11:40-0400 Body weight 60.44 kg [facility] 05-27-2024 11:40-0400 Diastolic blood pressure 64 mm[Hg] [facility] 05-27-2024 11:40-0400 Heart rate 63 /min [facility] 05-27-2024 11:40-0400 Respiratory rate 12 /min [facility] 05-27-2024 11:40-0400 Systolic blood pressure 118 mm[Hg] [facility] 05-17-2024 11:03-0400 Body height 166.37 cm [facility] 05-17-2024 11:03-0400 Body mass index (BMI) [Ratio] 21.4 kg/m2 [facility] 05-17-2024 11:03-0400 Body weight 59.47 kg [facility] 05-17-2024 11:03-0400 Diastolic blood pressure 79 mm[Hg] [facility] 05-17-2024 11:03-0400 Heart rate 57 /min [facility] 05-17-2024 11:03-0400 Respiratory rate 12 /min [facility] 05-17-2024 11:03-0400 Systolic blood pressure 136 mm[Hg] [facility] 05-03-2024 11:14-0400 Body height 158.8 cm Aamir [employer] Work Phone: [facility] 05-03-2024 11:14-0400 Body mass index (BMI) [Ratio] 23.76 kg/m2 [employer]ir [email or web address] Work Phone: [facility] 05-03-2024 11:14-0400 Body weight 59.88 kg [employer] Phone: [facility] 05-03-2024 11:14-0400 Diastolic blood pressure 68 mm[Hg] [employer] Phone: [facility] 05-03-2024 11:14-0400 Systolic blood pressure 126 mm[Hg] [employer] Phone: [facility] 03-09-2024 11:18-0400 Body height 166.37 cm [facility] 03-09-2024 11:18-0400 Body mass index (BMI) [Ratio] 21.8 kg/m2 [facility] 03-09-2024 11:18-0400 Body weight 60.44 kg [facility] 03-09-2024 11:18-0400 Diastolic blood pressure 73 mm[Hg] [facility] 03-09-2024 11:18-0400 Heart rate 68 /min [facility] 03-09-2024 11:18-0400 Respiratory rate 12 /min [facility] 03-09-2024 11:18-0400 Systolic blood pressure 128 mm[Hg] [facility] 11-25-2023 11:17-0400 Body height 166.37 cm [facility] 11-25-2023 11:17-0400 Body mass index (BMI) [Ratio] 23.3 kg/m2 [facility] 11-25-2023 11:17-0400 Body weight 64.63 kg [facility] 11-25-2023 11:17-0400 Diastolic blood pressure 72 mm[Hg] [facility] 11-25-2023 11:17-0400 Heart rate 66 /min [facility] 11-25-2023 11:17-0400 Respiratory rate 12 /min [facility] 11-25-2023 11:17-0400 Systolic blood pressure 127 mm[Hg] [facility] 10-14-2023 11:20-0500 Body mass index (BMI) [Ratio] 24.96 kg/m2 Shivam Ponce MD Work Phone: [facility] 10-14-2023 11:20-0500 Body weight 63.41 kg Shivam Ponce MD Work Phone: [facility] 10-14-2023 11:20-0500 Diastolic blood pressure 82 mm[Hg] Shivam Ponce MD Work Phone: [facility] 10-14-2023 11:20-0500 Systolic blood pressure 130 mm[Hg] Shivam Ponce MD Work Phone: [facility] 08-25-2023 15:00-0500 Body weight 63.04 kg [facility] 08-25-2023 15:00-0500 Diastolic blood pressure 64 mm[Hg] [facility] 08-25-2023 15:00-0500 Systolic blood pressure 114 mm[Hg] [facility] 08-25-2023 11:15-0500 Body height 166.37 cm Doni Rivera Other [facility] 08-25-2023 11:15-0500 Body mass index (BMI) [Ratio] 22.61 kg/m2 Doni Rivera Other [facility] [employer] Other 08-25-2023 11:15-0500 Body weight 62.6 kg Doni Rivera Other [employer] Other 08-25-2023 11:15-0500 Diastolic blood pressure 73 mm[Hg] Doni Rivera Other [employer] Other 08-25-2023 11:15-0500 Systolic blood pressure 117 mm[Hg] Doni Rivera Other [employer] Other 05-27-2023 10:00-0400 Body height 166.37 cm Kyle Ball Other [employer] Other 05-27-2023 10:00-0400 Body mass index (BMI) [Ratio] 22.74 kg/m2 Kyle Ball Other [employer] Other 05-27-2023 10:00-0400 Body weight 62.96 kg Kyle Ball Other [employer] Other 05-27-2023 10:00-0400 Diastolic blood pressure 72 mm[Hg] Kyle Ball Other [employer] Other 05-27-2023 10:00-0400 Respiratory rate 12 /min Kyle Ball Other [employer] Other 05-27-2023 10:00-0400 Systolic blood pressure 131 mm[Hg] Kyle Ball Other [employer] Other 02-10-2023 10:30-0400 Body height 166.37 cm Klye Ball Other [employer] Other 02-10-2023 10:30-0400 Body mass index (BMI) [Ratio] 24.55 kg/m2 Kyle Ball Other [employer] Other 02-10-2023 10:30-0400 Body weight 67.95 kg Kyle Ball Other [employer] Other 02-10-2023 10:30-0400 Diastolic blood pressure 78 mm[Hg] Kyle Ball Other [employer] Other 02-10-2023 10:30-0400 Respiratory rate 12 /min Kyle Ball Other [employer] Other 02-10-2023 10:30-0400 Systolic blood pressure 111 mm[Hg] Kyle Ball Other [employer] Other 01-01-2023 11:30-0400 Body height 166.37 cm Kyle Ball Other [employer] Other 01-01-2023 11:30-0400 Body mass index (BMI) [Ratio] 23.01 kg/m2 Kyle Ball Other [employer] Other 01-01-2023 11:30-0400 Body weight 63.69 kg Kyle Ball Other [employer] Other 01-01-2023 11:30-0400 Diastolic blood pressure 77 mm[Hg] Kyle Ball Other [employer] Other 01-01-2023 11:30-0400 Respiratory rate 12 /min Kyle Ball Other [employer] Other 01-01-2023 11:30-0400 Systolic blood pressure 124 mm[Hg] Kyle Ball Other [employer] Other 12-17-2022 11:15-0400 Body height 166.37 cm Kyle Ball Other [employer] Other 12-17-2022 11:15-0400 Body mass index (BMI) [Ratio] 25.3 kg/m2 Kyle Ball Other [employer] Other 12-17-2022 11:15-0400 Body weight 70.04 kg Kyle Ball Other [employer] Other 12-17-2022 11:15-0400 Diastolic blood pressure 70 mm[Hg] Kyle Ball Other [employer] Other 12-17-2022 11:15-0400 Respiratory rate 12 /min Kyle Ball Other [employer] Other 12-17-2022 11:15-0400 Systolic blood pressure 168 mm[Hg] Kyle Ball Other [employer] Other 11-17-2022 12:00-0400 Body height 166.37 cm Kyle Ball Other [employer] Other 11-17-2022 12:00-0400 Body mass index (BMI) [Ratio] 24.15 kg/m2 Kyle Ball Other [employer] Other 11-17-2022 12:00-0400 Body weight 66.86 kg Kyle Ball Other [employer] Other 11-17-2022 12:00-0400 Diastolic blood pressure 74 mm[Hg] Kyle Ball Other [employer] Other 11-17-2022 12:00-0400 Respiratory rate 12 /min Kyle Ball Other [employer] Other 11-17-2022 12:00-0400 Systolic blood pressure 133 mm[Hg] Kyle Ball Other [employer] Other 11-14-2021 15:45-0500 Body height 166.37 cm Doni Rivera Other [facility] [employer] Other 11-14-2021 15:45-0500 Body mass index (BMI) [Ratio] 23.6 kg/m2 Doni Rivera Other [facility] [employer] Other 11-14-2021 15:45-0500 Body weight 65.32 kg Doni Rivera Other [facility] [employer] Other Encounters Encounter Date Encounter Type Care Provider Facility Start: 09-14-2024 End: 09-14-2024 Josué Ponce MD Work Phone: [facility] Start: 09-14-2024 End: 09-14-2024 Josué Ponce MD Work Phone: [facility] Start: 09-14-2024 End: 09-14-[address] [facility] Comment on above: Trochanteric bursiti s of both hips (Primary Dx); Cervical paraspinal muscle spasm; Other nerve root and plexus disorders Start: 09-13-2024 End: 09-13-2024 ambulatory Kyle Ball DO Work Phone: [facility] Work Phone: Start: 09-13-2024 End: 09-13-2024 Patient encounter procedure Kyle Ball DO Work Phone: [facility] Work Phone: Start: 09-09-2024 Non-patient / Non-visit Benjam in Ball DO Work Phone: [facility] Work Phone: Start: 09-06-2024 Non-patient / Non-visit Benjam in Ball DO Work Phone: [facility] Work Phone: Start: 09-05-2024 End: 09-05-2024 ambulatory Anita A Diab Facility:[facility] Start: 09-05-2024 End: 09-05-2024 Departed Referred Kyle Gottlieb DO Work Phone: [facility] Work Phone: Start: 09-05-2024 End: 09-05-2024 Patient encounter procedure Kyle Gottlieb DO Work Phone: [facility] Work Phone: Start: 08-18-2024 End: 08-18-2024 Bamboo flowsheet Shivam Ponce MD Work Phone: [facility] Start: 08-18-2024 End: 08-18-2024 Bamboo flowsheet Shivam Ponce MD Work Phone: [facility] Start: 08-18-2024 End: 08-18-2024 Clinical Support Shivam Ponce MD Work Phone: [facility] Comment on above: Other nerve root and plexus disorders (Primary Dx); Trochanteric bursitis of both hips Start: 08-16-2024 End: 08-16-2024 Patient encounter procedure Kyle Gottlieb DO Work Phone: [facility] Work Phone: Start: 07-22-2024 End: 07-22-2024 ambulatory Kyle Ball DO Work Phone: [facility] Work Phone: Start: 07-22-2024 End: 07-22-2024 Patient encounter procedure Kyle Gottlieb DO Work Phone: [facility] Work Phone: Start: 07-20-2024 End: 07-20-2024 ambulatory Kyle Ball DO Work Phone: [facility] Work Phone: Start: 07-20-2024 End: 07-20-2024 Patient encounter procedure Kyle Gottlieb DO Work Phone: [facility] Work Phone: Start: 07-07-2024 End: 07-07-2024 Bamboo flowsheet Shivam Ponce MD Work Phone: [facility] Start: 07-07-2024 End: 07-07-2024 Bamboo flowsheet Shivam Ponce MD Work Phone: [facility] Start: 07-07-2024 End: 07-07-2024 Clinical Support Shivam Ponce MD Work Phone: [facility] Comment on above: Trochanteric bursiti s of both hips (Primary Dx); Other nerve root and plexus disorders Start: 06-23-2024 End: 06-23-2024 Patient encounter procedure DO Kyle Gottlieb Work Phone: [facility] Work Phone: Start: 06-23-2024 End: 06-23-2024 ambulatory DO Kyle Gottlieb Work Phone: [facility] Work Phone: Start: 06-21-2024 End: 06-21-2024 ambulatory [facility] Work Phone: Start: 06-21-2024 End: 06-21-2024 Patient encounter procedure [facility] Work Phone: Start: 06-14-2024 End: 06-14-2024 ambulatory [facility] Work Phone: Start: 06-14-2024 End: 06-14-2024 Patient encounter procedure [facility] Work Phone: Start: 06-11-2024 Patient encounter procedure [facility] Start: 06-10-2024 Non-patient / Non-visit [facility] [facility] Work Phone: Start: 06-02-2024 End: 06-02-2024 Telephone encounter Shivam Ponce MD Work Phone: [facility] Start: 06-01-2024 End: 06-01-2024 Bamboo flowsheet Shviam Ponce MD Work Phone: [facility] Start: 06-01-2024 End: 06-01-2024 Bamboo flowsheet Shivam Ponce MD Work Phone: [facility] Start: 06-01-2024 End: 06-01-2024 Clinical Support Shivam Ponce MD Work Phone: [facility] Comment on above: Trochanteric bursiti s of both hips (Primary Dx); Other nerve root and plexus disorders Start: 05-27-2024 End: 05-27-2024 ambulatory [facility] Work Phone: Start: 05-27-2024 End: 05-27-2024 Patient encounter procedure [facility] Work Phone: Start: 05-25-2024 Non-patient / Non-visit [facility] Work Phone: Start: 05-17-2024 End: 05-17-2024 ambulatory [facility] Work Phone: Start: 05-17-2024 End: 05-17-2024 Patient encounter procedure [facility] Work Phone: Start: 05-11-2024 End: 05-11-2024 ambulatory [facility] Work Phone: Start: 05-11-2024 End: 05-11-2024 Patient encounter procedure [facility] Work Phone: Start: 05-03-2024 End: 05-03-2024 Office outpatient visit 25 minutes Aamir Dao DO Work Phone: [facility] Comment on above: Postmenopausal atrop hic vaginitis (Primary Dx); Breast cancer screening by mammogram; Hormone replacement therapy Start: 05-03-2024 End: 05-03-2024 ambulatory AAMIR DAO Not Available Start: 04-12-2024 End: 04-12-2024 ambulatory [facility] Work Phone: Start: 04-12-2024 End: 04-12-2024 Patient encounter procedure [facility] Work Phone: Start: 03-30-2024 End: 03-30-2024 ambulatory SHIVAM PONCE Not Available Start: 03-09-2024 End: 03-09-2024 ambulatory [facility] Work Phone: Start: 03-09-2024 End: 03-09-[address] [facility] Work Phone: Start: 02-03-2024 End: 02-03-2024 ambulatory [facility] Work Phone: Start: 02-03-2024 End: 02-03-[address] [facility] Work Phone: Start: 01-20-2024 End: 01-20-2024 ambulatory SHIVAM PONCE Not Available Start: 12-28-2023 End: 12-28-2023 ambulatory [facility] Work Phone: Start: 12-28-2023 End: 12-28-2023 Patient encounter procedure [facility] Work Phone: Start: 11-25-2023 End: 11-25-2023 ambulatory [facility] Work Phone: Start: 11-25-2023 End: 11-25-[address] [facility] Work Phone: Start: 11-16-2023 End: 11-16-2023 ambulatory MEL HAYES Not Available Start: 10-21-2023 End: 10-21-2023 ambulatory [facility] Work Phone: Start: 10-21-2023 End: 10-21-2023 Patient encounter procedure [facility] Work Phone: Start: 10-14-2023 End: 10-14-2023 Office outpatient visit 25 minutes Shivam Ponce MD Work Phone: [facility] Comment on above: Brachial plexus neur opathy (Primary Dx); Multiple sclerosis ([facility]) Start: 10-14-2023 End: 10-14-2023 ambulatory SHIVAM PONCE Not Available Start: 10-13-2023 Chart abstracting Shivam schulz MD Work Phone: [facility] Start: 09-29-2023 End: 09-29-2023 ambulatory Kyle Gottlieb Other [employer] Other Start: 09-29-2023 Telephone encounter Kyle Gottlieb FP [facility] Start: 09-17-2023 End: 09-17-2023 ambulatory Kyle Gottlieb Other [employer] Other Start: 09-17-2023 Office outpatient vi sit 15 minutes Kyle Gottlieb [facility] Start: 09-17-2023 End: 09-17-2023 Patient encounter procedure [facility] Work Phone: Start: 09-15-2023 End: 09-15-2023 ambulatory Kyle Gottlieb Other [employer] Other Start: 09-15-2023 Nursing evaluation o f patient and report Kyle Gottlieb [facility] Start: 08-28-2023 End: 08-28-2023 ambulatory Tonya Harrison Other [employer] Other Start: 08-28-2023 Nursing evaluation o f patient and report Tonya Harrison [facility] Start: 08-28-2023 Telephone encounter Tonya Strong her [facility] Start: 08-26-2023 End: 08-26-2023 ambulatory Tonya Harrison Other [employer] Other Start: 08-26-2023 Telephone encounter Tonya Strong her [facility] Start: 08-25-2023 End: 08-25-2023 ambulatory Doni Rivera Other [employer] Other Start: 08-25-2023 Patient encounter procedure Doni Rivera [facility] Start: 08-25-2023 End: 08-25-2023 Patient encounter procedure [facility] Work Phone: Start: 08-13-2023 End: 08-13-2023 ambulatory Kyle Gottlieb Other [employer] Other Start: 08-13-2023 Nursing evaluation o f patient and report Kyle Gottlieb [facility] Start: 07-09-2023 End: 07-09-2023 ambulatory Kyle Gottlieb Other [employer] Other Start: 07-09-2023 Nursing evaluation o f patient and report Kyle Gottlieb [facility] Start: 06-19-2023 End: 06-19-2023 ambulatory Doni Rivera Other [employer] Other Start: 06-19-2023 Telephone encounter Doni LANZA [facility] Start: 06-18-2023 End: 06-18-2023 ambulatory Doni Rivera Other [employer] Other Start: 06-18-2023 Telephone encounter Doni LANZA [facility] Start: 06-08-2023 End: 06-08-2023 ambulatory Kyle Gottlieb Other [employer] Other Start: 06-08-2023 Nursing evaluation o f patient and report Kyle Gottlieb [facility] Start: 05-29-2023 End: 05-29-2023 ambulatory Kyle Gottlieb Other [employer] Other Start: 05-29-2023 Telephone encounter Kyle Gottlieb FP [facility] Start: 05-27-2023 End: 05-27-2023 ambulatory Kyle Gottlieb Other [employer] Other Start: 05-27-2023 Patient encounter procedure Kyle Gottlieb [facility] Start: 05-13-2023 End: 05-13-2023 ambulatory DO Kyle Gottlieb Work Phone: [facility] Work Phone: Start: 05-13-2023 End: 05-13-2023 Patient encounter procedure DO Kyle Gottlieb Work Phone: [facility] Work Phone: Start: 05-07-2023 End: 05-07-2023 ambulatory Kyle Gottlieb Other [employer] Other Start: 05-07-2023 Nursing evaluation o f patient and report Kyle Gottlieb [facility] Start: 04-06-2023 End: 04-06-2023 ambulatory Kyle Gottlieb Other [employer] Other Start: 04-06-2023 Nursing evaluation o f patient and report Kyle Gottlieb [facility] Start: 03-23-2023 End: 03-23-2023 ambulatory Kyle Gottlieb Other [employer] Other Start: 03-23-2023 Nursing evaluation o f patient and report Kyle Gottlieb [facility] Start: 03-16-2023 End: 03-16-2023 ambulatory Kyle Gottlieb Other [employer] Other Start: 03-16-2023 Nursing evaluation o f patient and report Kyle Gottlieb [facility] Start: 03-13-2023 End: 03-13-2023 ambulatory Kyle Gottlieb Other [employer] Other Start: 03-13-2023 Telephone encounter Kyle Gottlieb FP [facility] Start: 03-11-2023 End: 03-11-2023 ambulatory Kyle Gottlieb Other [employer] Other Start: 03-11-2023 Telephone encounter Kyle Gottlieb FP [facility] Start: 02-10-2023 End: 02-10-2023 ambulatory Kyle Gottlieb Other [employer] Other Start: 02-10-2023 Office outpatient vi sit 25 minutes Kyle Gottlieb [facility] Start: 02-04-2023 End: 02-04-2023 ambulatory Kyle Gottlieb Other [employer] Other Start: 02-04-2023 Telephone encounter Kyle Micah FP [facility] Start: 02-03-2023 End: 02-04-[address] KYLE GOTTLIEB Facility:[facility] Start: 02-03-2023 Telephone encounter Kyle Gottlieb FP [facility] Start: 01-09-2023 End: 01-09-2023 ambulatory Kyle Gottlieb Other [employer] Other Start: 01-09-2023 Telephone encounter Kyle Micah FP [facility] Start: 01-07-2023 End: 01-08-[address] KYLE GOTTLIEB Facility:[facility] Start: 01-01-2023 End: 01-01-2023 ambulatory Kyle Micah Other [employer] Other Start: 01-01-2023 Office outpatient vi sit 25 minutes Kyle Gottlieb [facility] Start: 12-17-2022 End: 12-17-2022 ambulatory Kyle Gottlieb Other [employer] Other Start: 12-17-2022 Telephone encounter Kyle Gottlieb FP [facility] Start: 12-17-2022 Transitional care manage srvc 7 day discharge Kyle Gottlieb [facility] Start: 12-16-2022 End: 12-16-2022 ambulatory Kyle Gottlieb Other [employer] Other Start: 12-16-2022 Telephone encounter yKle LANZA [facility] Start: 12-10-2022 End: 12-14-2022 Evaluation and management of inpatient DR BYRON ZULETA . Facility:[facility] Start: 12-08-2022 End: 12-08-2022 ambulatory Doni Rivera Other [employer] Other Start: 12-08-2022 Telephone encounter [facility] Start: 11-17-2022 End: 11-17-2022 ambulatory Kyle Gottlieb Other [employer] Other Start: 11-17-2022 Office outpatient vi sit 25 minutes Kyle Gottlieb [facility] Start: 09-03-2022 End: 09-03-2022 ambulatory Doni Rivera Other [employer] Other Start: 09-03-2022 Telephone encounter [facility]i [facility] Start: 08-26-2022 End: 08-27-[address] KYLE GOTTLIEB Facility:[facility] Start: 08-25-2022 End: 08-26-[address] KYLE GOTTLIEB Facility:[facility] Start: 05-19-2022 Adult health examination Kyle Gottlieb Other [employer] Other Start: 04-28-2022 End: 06-13-[address] KYLE GOTTLIEB Facility:[facility] Start: 04-14-2022 End: 04-14-2022 Patient encounter procedure DO Kyle Gottlieb Work Phone: [facility] Start: 04-09-2022 End: 04-09-2022 ambulatory Doni Rivera Other [employer] Other Start: 04-09-2022 Telephone encounter Doni LANZA [facility] Start: 12-05-2021 End: 12-05-2021 ambulatory Doni Rivera Other [employer] Other Start: 12-05-2021 Telephone encounter Doni LANZA [facility] Start: 11-14-2021 End: 11-14-2021 ambulatory Doni Rivera Other [employer] Other Start: 11-14-2021 Patient encounter procedure Doni Rivera [facility] Procedures Date Procedure Procedure Detail Performing Clinician Start: 09-05-2024 Streptococcus pyogen es culture Kyle Ball DO Work Phone: Start: 06-23-2024 Screening mammograph y of bilateral breasts DO Kyle Ball Work Phone: Start: 05-13-2023 Screening mammograph y of bilateral breasts DO Kyle Ball Work Phone: Start: 04-14-2022 Screening mammograph y of bilateral breasts DO Kyle Ball Work Phone: Depression screening Benjami n Ball Other Plan of Treatment Date Care Activity Detail Author Start: 05-09-2025 End: 05-09-2025 Patient encounter procedure 05/09/2025 11:30 AM EDT Office Visit [facility] [address] [facility] [address] [place] [address] Aamir Dao, DO [address] [place] [address] [facility] Start: 10-14-2024 End: 10-14-2024 Clinical Support 10/14/2024 11:30 AM EST Clinical Support [facility] [address] [facility] [address] [place] [address] Shivam Ponce MD [address] [address] [facility] Start: 09-14-2024 End: 09-14-2024 Clinical Support 09/14/2024 10:20 AM EST Clinical Support [facility] [address] [facility] [address] [place] [phone] Shivam Ponce MD [address] [facility] [address] [place] [address] [id number] Arrived [facility] Comment on above: Arrived Start: 09-05-2024 Group A Streptococcu s Culture Group A Streptococcus Culture [facility] Start: 08-18-2024 End: 08-18-2024 Clinical Support 08/18/2024 11:40 AM EST Clinical Support [facility] [address] [facility] [address] [place] [address] Shivam Ponce MD [address] [facility] [address] [place] [address], [place] [address] Arrived [facility] Comment on above: Arrived Start: 08-15-2024 End: 08-15-2024 Clinical Support 08/15/2024 11:20 AM EST Clinical Support [facility] [address] [facility] [address] [place] [address] Shivam Ponce MD [address] [facility] [address] [place] [id number] [facility] Start: 07-07-2024 End: 07-07-2024 Clinical Support [facility] Comment on above: Arrived Start: 06-01-2024 End: 06-01-2024 Clinical Support [facility] Comment on above: Arrived Start: 05-14-2024 End: 07-03-2025 DBT Breast - bilateral screening Bilateral screening mammogram with tomosynthesis Imaging Routine Breast cancer screening by mammogram Expected: 05/14/2024, Expires: 07/03/2025 [facility] Work Phone: Comment on above: Expected: 05/14/2024 , Expires: 07/03/2025 Start: 05-08-2024 Influenza vaccination Influenza Vacc ine (#1) [facility] Start: 05-03-2024 End: 05-03-2024 Patient encounter procedure 05/03/2024 11:15 AM EDT Office Visit [facility] [address] [place] [phone] Aamir Dao DO [address] [place] [address] [facility] Start: 01-20-2024 End: 01-20-2024 Patient encounter procedure 01/20/2024 10:40 AM EDT [facility] [address] [place] [phone] Shivam Ponce MD [address] [facility] [address] [place] [phone] [facility] Start: 11-16-2023 End: 11-16-2023 Patient encounter procedure 11/16/2023 11:40 AM EDT Office Visit [facility] [address] [place] [phone] Mel Hayes MD [address] [place] [address] [facility] Start: 10-14-2023 End: 10-14-2023 Patient encounter procedure 10/14/2023 11:20 AM EST [facility] [address] [place] [address] Shivam Ponce MD [address] [facility] [address] [place] [phone] [facility] Start: 05-08-2023 Influenza vaccination Influenza Vacc ine (#1) [facility] Start: 2007 Pneumococcal Vaccine : 65+ Years (1 - PCV) Pneumococcal Vaccine: 65+ Years (1 - PCV) [facility] CT Unspecified body region WO contrast [facility] Patient Education Low-fiber diet [facility] Work Phone: XR Foot - left GE 3 Views [facility] Immunizations Immunization Date Immunization Notes Care Provider Fa cility 05-27-2023 influenza virus vaccine, unspecified formulation [facility] 05-27-2023 Prevnar 20 Kyle Gottlieb Other [facility] 05-27-2023 influenza, high dose seasonal, preservative-free Kyle Gottlieb Other [facility] [employer] Other 07-11-2022 COVID-19 Pfizer (Pediatric) Kyle Gottlieb Other [facility] 06-23-2022 influenza, injectabl e, quadrivalent, preservative free Shivam Ponce MD Work Phone: [facility] 06-23-2022 influenza virus vaccine, unspecified formulation Shivam Ponce MD Work Phone: [facility] 05-19-2022 influenza virus vaccine, split virus (incl. purified surface antigen) Kyle Gottlieb Other [facility] [employer] Other 05-19-2022 influenza virus vaccine, unspecified formulation [facility] 05-19-2022 Influenza, High-dose Seasonal, Quadrivalent, Preservative Free Shivam Ponce MD Work Phone: [facility] 05-19-2022 Influenza, Seasonal, Quadrivalent, Adjuvanted Aamir Dao DO Work Phone: [facility] 02-06-2022 COVID-19 Vaccine Pfizer - Documentation Purposes Only Kyle Gottlieb Other [facility] 06-10-2021 COVID-19 mRNA, Comirnaty (Pfizer) DO Kyle Gottlieb Work Phone: [facility] 05-17-2021 influenza virus vaccine, split virus (incl. purified surface antigen) Kyle Micah Other [facility] [employer] Other 05-17-2021 influenza virus vaccine, unspecified formulation [facility] 11-22-2020 Moderna SARS-CoV-2 Vaccination Shivam Ponce MD Work Phone: [facility] 10-25-2020 COVID-19 mRNA, Comirnaty (Pfizer) DO Kyle Gottlieb Work Phone: [facility] 10-15-2020 Moderna SARS-CoV-2 Vaccination Shivam Ponce MD Work Phone: [facility] 10-04-2020 COVID-19 mRNA, Comirnaty (Pfizer) DO Kyle Gottlieb Work Phone: [facility] 10-04-2020 COVID-19 Vaccine Moderna - Documentation Purposes Only Kyle Gottlieb Other [facility] 06-11-2020 influenza, seasonal, injectable Aamir Dao DO Work Phone: [facility] 05-16-2020 influenza virus vaccine, split virus (incl. purified surface antigen) Kyle Gottlieb Other [facility] [employer] Other 05-16-2020 influenza virus vaccine, unspecified formulation [facility] 06-02-2019 influenza virus vaccine, split virus (incl. purified surface antigen) Kyle Gottlieb Other [facility] [employer] Other 06-02-2019 influenza virus vaccine, unspecified formulation [facility] 05-25-2018 influenza virus vaccine, split virus (incl. purified surface antigen) Kyle Gottlieb Other [facility] [employer] Other 05-25-2018 influenza virus vaccine, unspecified formulation [facility] 05-25-2018 Seasonal trivalent influenza vaccine, adjuvanted, preservative free Aamir Dao DO Work Phone: [facility] 05-25-2017 influenza virus vaccine, split virus (incl. purified surface antigen) Kyle Micah Other [facility] [employer] Other 05-25-2017 influenza virus vaccine, unspecified formulation [facility] 05-25-2017 influenza, high dose seasonal, preservative-free Aamir Dao DO Work Phone: [facility] 06-11-2016 influenza virus vaccine, split virus (incl. purified surface antigen) Kyle Micah Other [facility] [employer] Other 06-11-2016 influenza virus vaccine, unspecified formulation [facility] 06-11-2016 influenza, high dose seasonal, preservative-free Aamir Dao DO Work Phone: [facility] 06-13-2015 influenza virus vaccine, split virus (incl. purified surface antigen) Kyle Micah Other [facility] [employer] Other 06-13-2015 influenza virus vaccine, unspecified formulation [facility] 06-13-2015 pneumococcal conjuga te vaccine, 13 valent Kyle Gottlieb Other [facility] 06-13-2015 pneumococcal Conjugate, unspecified formulation; Translations: [Need for prophylactic vaccination against Streptococcus pneumoniae (pneumococcus)] Kyle Micah Other [facility] [employer] Other 06-07-2013 tetanus and diphther ia toxoids, adsorbed, preservative free, for adult use (5 Lf of tetanus toxoid and 2 Lf of diphtheria toxoid) Kyle Gottlieb Other [facility] 06-13-2009 pneumococcal polysaccharide vaccine, 23 valent Kyle Gottlieb Other [facility] NEGATED: Highlighted row has not occurred!05-16-2020 influenza virus vaccine, split virus (incl. purified surface antigen) Kyle Gottlieb Other [facility] [employer] Other Payers Date Payer Category Payer Private Health Insurance [id number] 1996 Medicare [id number] 1959 Medicare [id number] 2.1 [id number] 1959 Private Health Insurance [id number] 1942 Unknown [id number] 2.16.84 [id number] 1942 Unknown [id number] 2.16.84 [id number] 1942 Unknown [id number] 2.16.84 [id number] 1942 Unknown [id number] 2.16.84 [id number] 1942 Unknown [id number] 2.16.84 [id number] 1942 Unknown [id number] 2.16.84 [id number] 1942 Unknown [id number] 2.16.84 0.1.082010.3.579.2.1259 1942 Unknown [id number] 2.16.84 0.1.335992.3.579.2.1259 1942 Unknown [id number] 2.16.84 0.1.404444.3.579.2.1259 1942 Unknown [id number] 2.16.84 0.1.369985.3.579.2.1259 1942 Unknown [id number] 2.16.84 0.1.702003.3.579.2.1259 1942 Unknown [id number] 2.16.84 0.1.476719.3.579.2.1259 1942 Unknown [id number] 2.16.84 0.1.865903.3.579.2.1259 1942 Unknown [id number] 2.16.84 [id number] 1942 Unknown [id number] 2.16.84 [id number] Self-pay Self Pay [id number] Social History Date Type Detail Facility Unknown if ever smoked [employer] Other Start: 04-28-2023 End: 05-03-2024 Sex Assigned At [facility] Other Start: 11-28-2021 End: 09-17-2023 Tobacco smoking status WIIS Ex-smoker (finding) [facility] Start: 1940 Sex Assigned At Female F [facility] Start: 02-16-2023 Tobacco smoking stat us WIIS Never smoked tobacco [facility] Start: 02-16-2023 Tobacco use and exposure Smokeless tobacco non-user [facility] Start: 08-10-2023 End: 09-19-2024 Alcohol intake Lifetime non-drinker (finding) [facility] [...] file [facility] Start: 07-20-2024 End: 09-13-2024 Sex Female (finding) [facility] Clinical Notes 11-14-2021 to 09-14-2024 Shivam Ponce MD - 09/14/2024 10:20 AM RT. Vikki Masters - 08/18/2024 11:40 AM EST Note Date & Type Note Facility 09-14-2024 History of Presen t illness Narrative Images from the original note were not included. CHIEF COMPLAINT REASON FOR VISIT : Injections HPI: Gina Pierre is a 84 y.o. female who presents for bilateral brachial and bilateral bursa injections. States she was in the hospital, and she believes the medication they gave her caused her neck to be very stiff as that is one of the side effects. But has a hard time rotating head to the left and the right. Very stiff and has low back pain as well. States her pain is 10/10 CURRENT MEDICATIONS: ALLERGIES/DISCONTINUE MEDICATIONS Current Outpatient Medications [...] (4MG) by ORAL route every bedtime Oral tiZANidine (ZANAFLEX) 4 mg, Oral, Nightly valACYclovir (Valtrex) 500 MG tablet TAKE 1 [...] (gastroesophageal reflux disease) Hiatal hernia HLD (hyperlipidemia) ([facility]) Hx of migraine headaches IBS (irritable bowel syndrome) Multiple sclerosis ([facility]) 1993 Past Surgical History: Procedure Laterality Date [...] myalgias, neck pain and neck stiffness. OBJECTIVE: 09/18/2024 11:59 PM 08/18/2024 5:29 PM 07/07/2024 11:33 AM Vitals BMI 23.76 kg/m2 24.33 kg/m2 25.02 kg/m2 BSA (m2) 1.63 m2 1.64 m2 1.67 m2 Systolic 180 112 102 Diastolic 84 72 70 Heart Rate 65 66 Weight (lb) 132 135.2 139 EXAM: Neurological Exam Mental Status Awake, alert [...] reflexes: Erica's absent. Ankle clonus absent. Coordination [id number], rapid alternating movements and [id number] normal bilaterally without dysmetria. Gait Normal casual, toe, heel and tandem gait. Romberg is absent. PROCEDURE: Bursa Injection After explaining the risks, complications, [...] an injection of 3 cc of Bupivacaine 0.5% and1 cc Dexamethasone 4mg in a fan-like distribution. The needle was removed. A Band-Aid dressing was applied on the injection site.Ultrasound images were placed in the media folder. Brachial Plexus injection After explaining the risks, [...] the patient received 1 cc of Bupivacaine 0.5% and 1 cc Dexamethasone 4mg. The needle was removed. The patient tolerated the procedure well and without complications. A Band-Aid dressing was applied on the injection site. Ultrasound images were placed in the media folder. ASSESSMENT AND PLAN: Diagnoses and all orders for this visit: Trochanteric bursitis of both hips - bupivacaine (Marcaine) 0.5 % injection 5 mg - dexAMETHasone sod phos (Decadron) injection 4 mg Cervical paraspinal muscle spasm - tiZANidine (Zanaflex) 4 MG tablet; Take 1 tablet (4 mg) by mouth at bedtime for 10 days Other nerve root and plexus disorders - bupivacaine (Marcaine) 0.5 % injection 5 mg - dexAMETHasone sod phos (Decadron) injection 4 mg 1. Cervical paraspinal muscle spasm - tiZANidine (Zanaflex) 4 MG tablet; Take 1 tablet (4 mg) by mouth at bedtime for 10 days Dispense: 30 tablet; Refill: 3 2. Trochanteric bursitis of both hips (Primary) - bupivacaine (Marcaine) 0.5 % injection 5 mg - dexAMETHasone sod phos (Decadron) injection 4 m I will bring her back in 8 weeks to see if she has had 50% or greater pain relief and if she has I will repeat her injections if needed. 3. Other nerve root and plexus disorders - bupivacaine (Marcaine) 0.5 % injection 5 mg - dexAMETHasone sod phos (Decadron) injection 4 mg I will bring her back in 8 weeks to see if she has had 50% or greater pain relief and if she has I will repeat her injections if needed. documented in this encounter [facility] 08-18-2024 History of Presen t illness Narrative [...] (gastroesophageal reflux disease) Hiatal hernia HLD (hyperlipidemia) ([facility]) Hx of migraine headaches IBS (irritable bowel syndrome) Multiple sclerosis ([facility]) 1993 Past Surgical History: Procedure Laterality Date APPENDECTOMY CATARACT EXTRACTION, BILATERAL COLONOSCOPY EGD 2013 TOTAL ABDOMINAL HYSTERECTOMY W/ BILATERAL SALPINGOOPHORECTOMY 1984 VAGINAL DELIVERY Social History Tobacco Use Smoking [...] ASSESSMENT AND PLAN: documented in this encounter [facility] 07-20-2024 Evaluation note Diagnosis Onset Date Resolution Concussion acute July 20, 2024 10:58am Dizzy spells acute July 10:58am Fatigue acute July 20, 2024 10:58am Primary hypertension acute 2023 10:58am Stage 3a chronic kidney disease acute July 20, 2 024 10:58am Abdominal pain acute August 072023 11:01am Diarrhea acute August 16, 2024 11:01am Diverticulosis acute August 072023 11:01am Gastroesophageal reflux disease with esophagitis without hemorrhage acute August 11:01am Abdominal pain acute August 092023 2:23pm Acute diverticulitis acute Dece 2023 2:23pm Dehydration acute August 2:23pm Primary hypertension acute Dece 2023 2:23pm Stage 3a chronic kidney disease acute September 05 024 2:23pm [facility] Work Phone: 1(671) 373-498711-13-2024 Evaluation note* Diagnosis Onset Date Resolution Status Admit Date Concussion acute July 20, 2024 10:58am Dizzy spells acute July 10:58am Fatigue acute July 20, 2024 10:58am Primary hypertension acute 2023 10:58am Stage 3a chronic kidney disease acut e July 20, 2024 10:58am Abdominal pain acute August 072023 11:01am Diarrhea acute August 16, 2024 11:01am Diverticulosis acute August 072023 11:01am Gastroesophageal reflux dise ase with esophagitis without hemorrhage acute August 16 2 024 11:01am Abdominal pain acute August 092023 2:23pm Acute diverticulitis acute Dece 2023 2:23pm Dehydration acute August 2:23pm Primary hypertension acute Dece 2023 2:23pm Stage 3a chronic kidney disease acut e September 05, 2024 2:23pm Acute diverticulitis acute 2024 1:59pm Anemia, unspecified acute Janua ry 2024 1:59pm Diverticulosis acute September 1:59pm Primary hypertension acute Eren kaitlynn 2024 1:59pm Stage 3a chronic kidney disease acut e September 13, 2024 1:59pm [facility] Work Phone: 1([phone]) 441-123210-31-2024 History of Present illness Narrative* Cami Desir, RT. R - 07/07/2024 11:20 AM EDT Images from the original note were not included. CHIEF COMPLAINT REASON FOR VISIT : Injections HPI: Gina Pierre is a 84 y.o. female who presents for Lt side of her neck and radiates down, Rt. Legpain that radiates down her leg. She states her pain is 9/10, states she feels since the concussionit has her MS flared up. Hasn't had [...] (gastroesophageal reflux disease) Hiatal hernia HLD (hyperlipidemia) ([facility]) Hx of migraine headaches IBS (irritable bowel syndrome) Multiple sclerosis ([facility]) 1993 Past Surgical History: Procedure Laterality Date [...] of the procedure, the patient was seated inthe chair. Allergies were reviewed, the consent was [...] injections a this time. documented in [facility] encounterSt[facility] [id number] Telephone encounter Note* Telephone Encounter - Trixie Koenig - 06/02/2024 8:52 AM EDT Pt requested a refill of the decadron tablets be sent to [id number] [place] [id number] Miscellaneous Notes* Telephone Encounter - Trixie Koenig - 06/02/2024 8:52 AM EDT Pt requested a refill of the decadron tablets be sent to [id number] [place] documented in this encounterSt. Louis [facility] [id number] History of Present illness Narrative* Roxane Wallis MA - 06/01/2024 11:20 AM EDT Images from the original note were not included. CHIEF COMPLAINT REASON FOR VISIT: injections/MS HPI: Gina Pierre is a 83 y.o. female who presents for bilateral bursa and bilateral brachial injections. Pain level is a 7/10. She states she had the flu, fell and hit her head on the TV stand and gota concussion on May 13. She was in [facility]. She states it flared up her MS. [...] (gastroesophageal reflux disease) Hiatal hernia HLD (hyperlipidemia) ([facility]) Hx of migraine headaches IBS (irritable bowel syndrome) Multiple sclerosis ([facility]) 1993 Past Surgical History: Procedure Laterality Date [...] reflexes: Erica's absent. Ankle clonus absent. Coordination Hlgkzv-qp-whpa, rapid alternating movements and pyty-nw-ybyw normal bilaterally without dysmetria. Gait Normal casual, toe, heel and tandem gait. Romberg is absent. PROCEDURE: Brachial Plexus injection After explaining the risks, complications, and benefits of the procedure, the patient was seated inthe chair. Allergies were reviewed, the consent was [...] the injections if needed. documented in this encounterSt. Louis [facility] [id number] Evaluation note* Diagnosis Onset Date Resolution Status [...] 20, 2024 10:58am Contusion of left shoulder acute July 20, 2024 10:58am Fatigue acute July 20, 2024 10:58am Primary hypertension acute 2023 10:58am Stage 3a chronic kidney disease acute July 20 10:58am [facility] Work Phone: 1([phone]) 861-896509-04-2024 Evaluation note* Diagnosis Onset Date Resolution Status [...] July 20, 2024 10:58am Primary hypertension acute Nove mber 2023 10:58am Stage 3a chronic kidney disease acute July 20, 2 024 10:58am [facility] Work Phone: 1([phone]) 311-448308-27-2024 History of Present illness Narrative* Yesica MARIA ELENA Villagomez - 05/03/2024 11:15 AM EDT Images from the original note were not included. Aamir Dao, DO Obstetrics and Gynecology Gina Pierre 1940 05/03/24 [id number] Yearly Wellness Exam Chief Complaint Patient presents with Gynecologic Exam Medicare off year. LMP: SHANTA BSO 1984 HRT: Premarin cream - satisfied, but would like to discuss how long to be on it Last pap 04-28-23 neg. Last mammogram 05-13-23 [facility]. Denies breast, urinary, or bowel concerns. Visit [...] (gastroesophageal reflux disease) Hiatal hernia HLD (hyperlipidemia) ([facility]) Hx of migraine headaches IBS (irritable bowel syndrome) Multiple sclerosis ([facility]) 1993 ROS Const: Denies appetite change, fever, [...] costovertebral angle tenderness, no obvious scoliosis/kyphosis. 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 Could maintainhormone using once weekly. 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 Entered by Yesica Villagomez MA acting as scribe for Dr. Aamir Dao. Signature Yesica Villagomez MA Date 05/03/24 . Time 11:46 AM . The documentation recorded by the scribe accurately reflectsthe service(s) I personally performed and the decisions I made. Signature Willliam D. Morenita,D.O. Date 05/03/24 Time 5:00PM. documented in this encounterSt. Louis Children's [id number] Evaluation note* Diagnosis Onset Date Resolution Status Gastroesophageal reflux dise ase with esophagitis without hemorrhage acute Lumbar spondylosis acute PA (pernicious anemia) acute Primary hypertension acute Stage 3a chronic kidney disease acute Venous insufficiency (chronic) (peripheral) acute Acute sinusitis noneactive [facility] Work Phone: [phone]) 905-878704-22-2024 Evaluation note* Diagnosis Onset Date Resolution Status Gastroesophageal reflux dise ase with esophagitis without hemorrhage acute Lumbar spondylosis acute PA (pernicious anemia) acute Primary hypertension acute Stage 3a chronic kidney disease acute Venous insufficiency (chronic) (peripheral) acute Acute sinusitis noneactive [facility] Work Phone: 1([phone]) 753-881202-07-2024 History of Present illness Narrative* Shivam Ponce [...] (gastroesophageal reflux disease) Hiatal hernia HLD (hyperlipidemia) ([facility]) Hx of migraine headaches IBS (irritable bowel syndrome) Multiple sclerosis ([facility]) 1993 Past Surgical History: Procedure Laterality Date [...] reflexes: Erica's absent. Ankle clonus absent. Coordination Xihtio-up-veay, rapid alternating movements and xjhq-if-tguv normal bilaterally without dysmetria. Gait Normal casual, [...] nerve dysfunction including polyneuropathy. documented in this encounterSt. Louis Children's [id number] Evaluation note* Encounter Date Diagnosis Assessment Notes Treatment Notes Treatment Clinical Notes Sep, Acute non-recurrent maxillary sinusitis (ICD-10 - J01.00) Instructed to use Robitussin or Mucinex for cough, saline or Flonase NS for congestion, Tylenol for pain and fever. Sep, Multiple sclerosis (ICD-10 - G35) weakens her immune system placing her at risk for more seriou, prolonged illness [facility] Other 01-09-2024 Evaluation note* Encounter Date Diagnosis Assessment Notes Treatment Notes Treatment Clinical Notes Sep, Pernicious anemia (ICD-10 - D51.0) [facility] Other 12-22-2023 Evaluation note* Encounter Date Diagnosis Assessment Notes Treatment Notes Treatment Clinical Notes Aug, Flu-like symptoms (ICD-10 - R68.89) Aug, Acute non-recurrent maxillary sinusitis (ICD-10 - J01.00) [facility] Other 12-19-2023 Evaluation note* Encounter Date Diagnosis Assessment Notes Treatment Notes Treatment Clinical Notes Aug, Abdominal pain (ICD-10 - R10.9) Aug, Nausea & vomiting (ICD-10 - R11.2) Aug, GERD (gastroesophageal reflux disease) (ICD-10 - K21.9) Pt is doing well on the pantoprazole. Pt RTO YEARLY Aug, Early satiety (ICD-10 - R68.81) Aug, Loss of appetite (ICD-10 - R63.0) [facility] Other 12-07-2023 Evaluation note* Encounter Date Diagnosis Assessment Notes Treatment Notes Treatment Clinical Notes Aug, Pernicious anemia (ICD-10 - D51.0) [facility] Other 11-02-2023 Evaluation note* Encounter Date Diagnosis Assessment Notes Treatment Notes Treatment Clinical Notes Jul, Pernicious anemia (ICD-10 - D51.0) [facility] Other 10-02-2023 Evaluation note* Encounter Date Diagnosis Assessment Notes Treatment Notes Treatment Clinical Notes Jun, Pernicious anemia (ICD-10 - D51.0) [facility] Other 09-22-2023 Evaluation note* Encounter Date Diagnosis Assessment Notes Treatment Notes Treatment Clinical Notes May, Anemia, unspecified type (ICD-10 - D64.9) May, Fatigue, unspecified type (ICD-10 - R53.83) [facility] Other 09-20-2023 Evaluation note* Encounter Date Diagnosis [...] - R53.83) Check labs: CBC, B12, TSH [facility] Other 08-31-2023 Evaluation note* Encounter Date Diagnosis Assessment Notes Treatment Notes Treatment Clinical Notes Apr, Pernicious anemia (ICD-10 - D51.0) [facility] Other 07-31-2023 Evaluation note* Encounter Date Diagnosis Assessment Notes Treatment Notes Treatment Clinical Notes Mar, Pernicious anemia (ICD-10 - D51.0) [facility] Other 07-10-2023 Evaluation note* Encounter Date Diagnosis Assessment Notes Treatment Notes Treatment Clinical Notes Mar, Pernicious anemia (ICD-10 - D51.0) [facility] Other 07-07-2023 Evaluation note* Encounter Date Diagnosis Assessment Notes Treatment Notes Treatment Clinical Notes Mar, PA (pernicious anemia) (ICD-10 - D51.0) [facility] Other 07-05-2023 Evaluation note* Encounter Date Diagnosis Assessment Notes Treatment Notes Treatment Clinical Notes Mar, Acute pneumonia (ICD-10 - J18.9) Mar, Anemia, unspecified type (ICD-10 - D64.9) Mar, Stage 3a chronic kidney disease (ICD-10 - N18.31) [facility] Other 06-06-2023 Evaluation note* Encounter Date Diagnosis [...] FA supplement. Recheck FA/B12, CBC in month [facility] Other 05-30-2023 Evaluation note* Encounter Date Diagnosis Assessment Notes Treatment Notes Treatment Clinical Notes January, Acute pneumonia (ICD-10 - J18.9) January, Anemia, unspecified type (ICD-10 - D64.9) January, Stage 3a chronic kidney disease (ICD-10 - N18.31) [facility] Other 05-05-2023 Evaluation note* Encounter Date Diagnosis Assessment Notes Treatment Notes Treatment Clinical Notes January, Folic acid deficiency (ICD-10 - E53.8) [facility] Other 04-27-2023 Evaluation note* Encounter Date Diagnosis [...] and exerci se with continued statin therapy. [facility] Other 04-12-2023 Evaluation note* Encounter Date Diagnosis [...] Weight loss. Dec, Anasarca (ICD-10 - R60.1) [facility] Other 04-03-2023 Evaluation note* Encounter Date Diagnosis Assessment Notes Treatment Notes Treatment Clinical Notes Dec, Seasonal allergic rhinitis (ICD-10 - J30.2) [facility] Other 03-13-2023 Evaluation note* Encounter Date Diagnosis [...] Daily stretching exercises, exercise, avoid strenuous lifting. [facility] Other 12-28-2022 Evaluation note* Encounter Date Diagnosis Assessment Notes Treatment Notes Treatment Clinical Notes Aug, Diarrhea (ICD-10 - R19.7) [facility] Other 03-31-2022 Evaluation note* Encounter Date Diagnosis Assessment Notes Treatment Notes Treatment Clinical Notes Nov, Diarrhea (ICD-10 - R19.7) [facility] Other 03-10-2022 Evaluation note* Encounter Date Diagnosis [...] Nov, Loss of appetite (ICD-10 - R63.0) [facility] Other Evaluation noteNo InformationNortRightSignature Other Evaluation noteNo assessment information available [facility] Work Phone: Evaluation noteNortRightSignature Other Evaluation note* Diagnosis Brachial plexus neuropathy- Primary Brachial plexus lesions Multiple sclerosis (CMS/HCC) Multiple sclerosis documented in this encounter [facility] HealthcareEvaluation note* Diagnosis Onset Date Resolution Status Gastroesophageal reflux dise ase with esophagitis without hemorrhage acute Lumbar spondylosis acute PA (pernicious anemia) acute Primary hypertension acute Stage 3a chronic kidney disease acute Venous insufficiency (chronic) (peripheral) acute Acute sinusitis noneactive [facility] Work Phone: Evaluation note* Diagnosis Onset Date Resolution Status Foot pain, left acute Gastroesophageal reflux dise ase with esophagitis without hemorrhage acute Acute diverticulitis noneact bhargavi Nausea noneactive [facility] Work Phone: Evaluation note* Diagnosis Onset Date Resolution Status Foot pain, left acute Gastroesophageal reflux dise ase with esophagitis without hemorrhage acute Acute diverticulitis noneact bhargavi Nausea noneactive Acute bronchitis due to other specified organisms acute Acute exacerbation of chroni c obstructive airways disease acute [facility] Work Phone: Evaluation note* Diagnosis Onset Date [...] acute Stage 3a chronic kidney disease acute [facility] Work Phone: Evaluation note* Diagnosis Onset Date [...] acute Stage 3a chronic kidney disease acute [facility] Work Phone: Evaluation note* Diagnosis Onset Date [...] acute Stage 3a chronic kidney disease acute [facility] Work Phone: Evaluation note* Diagnosis Trochanteric bursitis of both hips- Primary Other nerve root and plexus disorders documented in this encounter [facility] HealthcareEvaluation note* Diagnosis Other nerve root and plexus disorders- Primary Trochanteric bursitis of both hips documented in this encounter [facility] HealthcareEvaluation note* Diagnosis Postmenopausal atrophic vaginitis- Primary Breast cancer screening by mammogram Hormone replacement therapy documented in this encounter [facility] HealthcareEvaluation note* Diagnosis Trochanteric bursitis of both hips- Primary Other nerve root and plexus disorders documented in this encounter [facility] HealthcareEvaluation note* Diagnosis Trochanteric bursitis of both hips- Primary documented in this encounter [facility] HealthcareEvaluation note* Diagnosis Trochanteric bursitis of both hips- Primary Cervical paraspinal muscle spasm Spasm of muscle Other nerve root and plexus disorders documented in this encounter [facility] HealthcareHistory general Narrative - Reported* Type Description Date Surgical History appenedectomy Surgical History left ovary Surgical History total hysterectomy [facility] [employer] Other Hispunw general Narrative - Reported* Type Description Date [...] History EGD 2020,2021 Hospitalization History SEE SURGICAL [facility] Other Hisdzgw general Narrative - Reported* Type Description Date [...] History EGD 2020,2021 Hospitalization History SEE SURGICAL [facility] Other [facility] general Narrative - [facility] Other History general Narrative - [facility] Other Chief Complaint and Reason for Visit Chief Complaint Screening Chief Complaint Sore Throat Sinuses - [phone] B-12 SHOT Chief Complaint Sinuses - B-12 SHOT 6 month follow up Reason [...] Chief Complaint stomach pain, nausea B12 Shot [phone] cough, congestion for 3 days Reason for Visit Foot pain, left Gastroesophageal reflux disease with esophagitis without hemorrhage Acute diverticulitis Nausea Acute bronchitis due to other specified organisms Acute exacerbation of chronic obstructive airways disease Chief Complaint stomach pain, nausea B12 Shot [phone] cough, congestion for 3 days Fall-L Shoulder, Head/Dr. Note Reason for Visit Foot pain, left Gastroesophageal reflux disease with esophagitis without hemorrhage Acute diverticulitis Nausea Acute bronchitis due to other specified organisms Acute exacerbation of chronic obstructive airways disease Chief Complaint stomach pain, nausea B12 Shot [phone] cough, congestion for 3 days Fall-L Shoulder, [...] chronic kidney disease Chief Complaint B12 Shot [phone] cough, congestion for 3 days Fall-L Shoulder, [...] chronic kidney disease Chief Complaint B12 Shot [phone] cough, congestion for 3 days Fall-L Shoulder, Head/DrSean Note follow up CC Adult Risk Stratification [...] chronic kidney disease Chief Complaint B12 Shot [phone] cough, congestion for 3 days Fall-L Shoulder, Head/ Note follow up CC Adult Risk Stratification [...] chronic kidney disease Chief Complaint Admit Date [phone] cough, congestion for 3 day s May [...] 17 10:46am Stage 3a chronic kidney disease [facility] 2023 10:46am Concussion May 27, 2024 11:38am Contusion of left shoulder May 11:38am Primary hypertension May 27 11:38am Stage 3a chronic kidney disease [facility] r 2023 11:38am Fatigue June 14, 2024 11 :05am Medicare annual wellness visit, subseque nt June 14, 2024 11:05am Primary hypertension June 14, 2024 1 1:05am Screening mammogram for breast cancer Oc tober 2023 11:05am Stage 3a chronic kidney disease June 14, 2024 11:05am Concussion July 20, 2024 10:58am Contusion of left shoulder July 10:58am Fatigue July 20, 2024 10:58am Primary hypertension July 20, 2024 10:58am Stage 3a chronic kidney disease July 20, 2024 10:58am Chief Complaint Admit Date [phone] cough, congestion for 3 day s May [...] 17 10:46am Stage 3a chronic kidney disease [facility] 2023 10:46am Concussion May 27, 2024 11:38am Contusion of left shoulder May 11:38am Primary hypertension May 27 11:38am Stage 3a chronic kidney disease [facility] r 2023 11:38am Fatigue June 14, 2024 11 :05am Medicare annual wellness visitkaren June 14, 2024 11:05am Primary hypertension June 14, 2024 1 1:05am Screening mammogram for breast cancer Oc tober 2023 11:05am Stage 3a chronic kidney disease June 14, 2024 11:05am Concussion July 20, 2024 10:58am Dizzy spells July 20, 2024 10:58am Fatigue July 20, 2024 10:58am Primary hypertension July 20, 2024 10:58am Stage 3a chronic kidney disease July 20, 2024 10:58am Chief Complaint Admit Date B12 Shot June 21, 2024 1 0:43am Z12.31 June 23, 2024 1 1:37am 1 month f/u July 20, 2024 10:58am b12 shot July 22, 2024 11:31am 1 YEAR FOLLOW UP/GERD August 16 11:01am stomach pain, weak, ear ache,sore throat , September 05, 2024 2:23pm Unknown September 05, 2024 3:31pm Reason for Visit Admit Date Concussion July 20, 2024 10:58am Dizzy spells July 20, 2024 10:58am Fatigue July 20, 2024 10:58am Primary hypertension July 20, 2024 10:58am Stage 3a chronic kidney disease July 20, 2024 10:58am Abdominal pain August 16, 2024 11:01am Diarrhea August 16, 2024 11:01am Diverticulosis August 16, 2024 11:01am Gastroesophageal reflux dise ase with esophagitis without hemorrhage August 16, 2024 11:01am Abdominal pain September 05, 2024 2:23pm Acute diverticulitis September 05, 2024 2:23pm Dehydration September 05, 2024 2:23pm Primary hypertension September 05, 2024 2:23pm Stage 3a chronic kidney disease September 05, 2024 2:23pm Chief Complaint Admit Date B12 Shot June 21, 2024 1 0:43am Z12.31 June 23, 2024 1 1:37am 1 month f/u July 20, 2024 10:58am b12 shot July 22, 2024 11:31am 1 YEAR FOLLOW UP/GERD August 16 11:01am stomach pain, weak, ear ache,sore throat , September 05, 2024 2:23pm Unknown September 05, 2024 3:31pm Amb Documentation September 09, 2024 9: 21am [facility] September 13, 2024 1: 59pm Reason for Visit Admit Date Concussion July 20, 2024 10:58am Dizzy spells July 20, 2024 10:58am Fatigue July 20, 2024 10:58am Primary hypertension July 20, 2024 10:58am Stage 3a chronic kidney disease July 20, 2024 10:58am Abdominal pain August 16, 2024 11:01am Diarrhea August 16, 2024 11:01am Diverticulosis August 16, 2024 11:01am Gastroesophageal reflux dise ase with esophagitis without hemorrhage August 16, 2024 11:01am Abdominal pain September 05, 2024 2:23pm Acute diverticulitis September 05, 2024 2:23pm Dehydration September 05, 2024 2:23pm Primary hypertension September 05, 2024 2:23pm Stage 3a chronic kidney disease September 05, 2024 2:23pm Acute diverticulitis September 13, 2024 1 :59pm Anemia, unspecified September 13, 2024 1: 59pm Diverticulosis September 13, 2024 1: 59pm Primary hypertension September 13, 2024 1 :59pm Stage 3a chronic kidney disease September 13, 2024 1:59pm Family History Relationship Condition Age at Onset [...] Response Recorded Date/ Time Advance Directives No May 17th, 201 8 2:52pm Reason for Referral Reason Consult for seasonal allergies and post nasal drip Diagnosis 1 Seasonal allergic rh initis (J30.2) Referral Organization [facility] Referring Provider First Name Doni Referring Provider Last Name Solgen Referring Provider Specialty Gastroenter ology Referred Organization [...] on itLast pap 04-28-23 neg.Last mammogram 05-13-23 [facility]. Denies breast, urinary, or bowel concerns. Care Teams (unrecognized sec tion and content) Team Status: Inactive Member Role Status Dates Kyle Gottlieb DO Primary Care Provider Active Aamir Dao DO Attending Provider, Referring Pr hans Active Team Status: Active Member Role Status Dates Kyle Gottlieb DO Primary Care Provider Active Team Status: Inactive Member Role Status Dates Kyle Gottlieb DO Primary Care Provider Active Aamir Dao DO Attending Provider Active Corporate Administrator Relationship Specialty Start Date End Date Kyle Gottlieb MD [address] [place] [phone] PCP - General Internal Medicine 02/16/23 Corporate Administrator Relationship Specialty Start Date End Date Kyle Gottlieb MD [address] [place] [id number] PCP - General Internal Medicine 02/16/23 Team Status: Inactive Member Role Status Dates Tonya Harrison APRN [employer]-C Attending Provider Act [email or web address] Start: August 25, [...] Dates Kyle Ball , DO Primary Care Provide r, Attending [...] June 23, 2024 End: June 23, 2024 Aamir Dao DO Attending Provider Active Start: June 23, 2024 End: June 23, 2024 Corporate Administrator Relationship Specialty Start Date End Date Kyle Gottlieb MD [address] [place] [facility] [phone] PCP - General Internal Medicine 02/16/23 Corporate Administrator Relationship Specialty Start Date End Date Kyle Gottlieb MD [address] [place] [facility] [phone] PCP - General Internal Medicine 02/16/23 Team Status: Inactive Member Role Status Dates Kyle Gottlieb DO Primary Care Provide r, Attending Provider Active Start: July 20, 2024 End: July 20, 2024 Team Status: Inactive Member Role Status Dates Kyle Gottlieb DO Primary Care Provide r, Attending Provider Active Start: July 22, 2024 End: July 22, 2024 Corporate Administrator Relationship Specialty Start Date End Date Kyle Gottlieb MD [address] [place] [facility] [address] PCP - General Internal Medicine 02/16/23 Corporate Administrator Relationship Specialty Start Date End Date Kyle Gottlieb MD [address] [place] [facility] [address] PCP - General Internal Medicine 02/16/23 Corporate Administrator Relationship Specialty Start Date End Date Kyle Gottlieb MD [address] [place] [facility] [address] PCP - General Internal Medicine 02/16/23 Corporate Administrator Relationship Specialty Start Date End Date Kyle Gottlieb MD [address] [place] [facility] [address] PCP - General Internal Medicine 02/16/23 Corporate Administrator Relationship Specialty Start Date End Date Kyle Gottlieb MD [address] [place] [address] PCP - General Internal Medicine 02/16/23 Corporate Administrator Relationship Specialty Start Date End Date Kyle Gottlieb MD [address] [place] [phone] PCP - General Internal Medicine 02/16/23 Corporate Administrator Relationship Specialty Start Date End Date Kyle Gottlieb MD [address] [place] [phone] PCP - General Internal Medicine 02/16/23 Team Status: Inactive Member Role Status Dates Kyle Gottlieb DO Primary Care Provider Active Start: August 16, 2024 End: August 16, 2024 Doni Rivera MD Attending Provider Active S tart: August 16, 2024 End: August 16, 2024 Team Status: Inactive Member Role Status Dates Kyle Gottlieb DO Primary Care Provide r, Attending Provider Active Start: September 05, 2024 End: September 05, 2024 Team Status: Inactive Member Role Status Dates Anita Garcia MD Attending Provider Active Sta rt: September 05, 2024 End: September 05, 2024 Team Status: Active Member Role Status Dates Kyle Gottlieb DO Primary Care Provider Active Start: September 06, 2024 Byron Zuleta MD Attending Provider Active Sta rt: September 06, 2024 Team Status: Active Member Role Status Dates Elizabeth Cowan CMA Attending Provider Active Start: September 09, 2024 Team Status: Inactive Member Role Status Dates Kyle Gottlieb DO Primary Care Provide r, Attending Provider Active Start: September 13, 2024 End: September 13, 2024 Corporate Administrator Relationship Specialty Start Date End Date Kyle Gottlieb MD [address] [place] [phone] PCP - General Internal Medicine 02/16/23 Goals (unrecognized section and content) Goals may be documented in a n alternate section INFORMATION SOURCE (unrecogn ized section and content) DATE CREATED AUTHOR 02/13/2023 Elis Reyes [facility] DATE CREATED AUTHOR AUTHOR'S BREN PATEL 09/08/2024 [facility] DATE CREATED AUTHOR AUTHOR'S BREN ATION 09/19/2024 [facility] FOR RECORDS [...] BE BASED ON THE PRIMARY CLINICAL RECORDS. [facility] [employer] provides no warranty or guarantee of the accuracy or completeness of information in this document.
--- NOTE | 2024-09-30 18:41 | XR_ITS ---
The [address] [address] Patient Name: ANGY BETTS MRN: [id number] date: 1940 Sex: F Assigned Patient Location: ER Current Patient Location: ER Accession/Order Number: [id number] Exam Date: 09/30/2024 19:10 Report Date: 09/30/2024 20:55 At the request of: NORA CEDEÑO Procedure: XR chest 1V EXAMINATION: XR chest 1V HISTORY: Dizzy COMPARISON: XR chest 03/12/2023 FINDINGS: LUNGS: Underexpanded lungs without appreciable infiltrates. VASCULATURE: No increased pulmonary vasculature. PLEURA: No pneumothorax, effusion, or pleural thickening. CARDIAC: No cardiomegaly or cardiac silhouette abnormality. MEDIASTINUM: No visible mass or adenopathy. BONES: No fracture or visible bone lesion. OTHER: Negative. XR/XR chest 1V IMPRESSION: 1. Low lung volume examination. 2. No appreciable acute cardiopulmonary process. Electronically authenticated by: BUCKY CRAIG Date: 09/30/2024 20:55
--- NOTE | 2024-09-30 18:41 | ECG_ITS ---
The [facility] Test Date: 2024-09-30 Pat Name: ANGY BETTS Department: Room: - Gender: Female Manager Shell: : 1940 Requested By: JEFFREY OBRIEN Order Number: [id number] Reading MD: JEFFREY OBRIEN Measurements Intervals [place] Rate: 65 P: 52 CA: 146 QRS: 50 QRSD: 80 T: 67 QT: 408 QTc: 420 Interpretive Statements 1100 Sinus rhythm 9110 normal ECG Compared to ECG 09/05/2024 16:07:50 No significant changes Electronically Signed On 10-02-2024 8:11:27 EST by JEFFREY OBRIEN
--- NOTE | 2024-09-30 18:42 | CT_ITS ---
The [address] [address] Patient Name: ANGY BETTS MRN: [id number] date: 1940 Sex: F Assigned Patient Location: ER Current Patient Location: ER Accession/Order Number: [id number] Exam Date: 09/30/2024 19:14 Report Date: 09/30/2024 19:34 At the request of: NORA CEDEÑO Procedure: CT head/brain wo con EXAM: CT head/brain wo con HISTORY: Dizzy COMPARISON: CT brain 05/20/2024 TECHNIQUE: Axial CT scans through the head were obtained without IV contrast administration. Dose reduction techniques were achieved by using: automated exposure control and/or adjustment of mA and /or kV according to patient size and/or use of iterative reconstruction technique. FINDINGS: There is no acute intracranial hemorrhage or abnormal extra-axial fluid collection. No mass effect or midline shift is seen. There is no evidence of large acute territorial infarction. There is no hydrocephalus. There is age appropriate mild generalized cerebral atrophy To the limit of CT, the posterior fossa appears unremarkable. The calvaria and extra cranial soft tissues are unremarkable. The visualized orbits show no abnormality. The visualized paranasal sinuses show no air-fluid level. Mastoid air cells are clear. CT/CT head/brain wo con IMPRESSION: No acute intracranial process. Electronically authenticated by: DELIO CORDOVA Date: 09/30/2024 19:34
--- NOTE | 2024-09-30 18:51 | ED.DIZZY1 ---
Documented by User: ENOC Daniel 09/30/24 21:00 HPI - Dizziness General Chief Complaint: Dizziness Stated Complaint: dizzy Time Seen by Provider: 09/30/24 18:31 Source: patient Mode of arrival: walk-in Limitations: no limitations History of Present Illness HPI Narrative: Patient is an 84-year-old female who presents to the emergency department for the evaluation of dizziness that began last night. She reports associated nausea but has had no vomiting or diarrhea. No recent illness. She describes the dizziness as feeling like the bed is swaying [id number] although she does not have a sensation of spinning. She states she feels lightheaded as though she may pass out. She has not had any chest pain or significant shortness of breath. She occasionally spits up white foam, according to her family member at bedside this has been ongoing for over a year and she has a GI specialist that sees her for this. Family member believes that is due to anxiety. Patient states that she is supposed to drink 45 ounces of fluid a day to stay hydrated, she drinks less than 20. She states that she is dehydrated and needs IV fluids. She does not have a reason for why she does not drink as much fluid as she is supposed to. Related Data Home Medications ?Medication ?Instructions ?Recorded ?Confirmed benazepril 5 mg tablet 5 mg PO DAILY 09/05/24 09/05/24 calcium carb-ergocalciferol (vit 2 tab PO DAILY 09/05/24 09/05/24 D2) 600 mg calcium-200 unit tablet cetirizine 10 mg tablet (24Hour 10 mg PO DAILY PRN allergy symptoms 09/05/24 09/05/24 Allergy) conjugated estrogens 0.625 mg/gram 0.625 mg vaginal DAILY 09/05/24 09/05/24 vaginal cream (Premarin) fenofibrate 160 mg tablet 160 mg PO DAILY 09/05/24 09/05/24 folic acid 1 mg tablet 1 mg PO DAILY 09/05/24 09/05/24 gabapentin 300 mg capsule 300 mg PO DAILY 09/05/24 09/05/24 (Neurontin) omega 3-nvr-nob-fish oil 1,200 mg 2 cap PO DAILY 09/05/24 09/05/24 (144 mg-216 mg) capsule (Fish Oil) omeprazole 40 mg capsule,delayed 40 mg PO Q12H 09/05/24 09/05/24 release oxcarbazepine 300 mg tablet 300 mg PO DAILY 09/05/24 09/05/24 (Trileptal) Previous Rx's ?Medication ?Instructions ?Recorded cefdinir 300 mg capsule 600 mg (2 x 300 mg) PO DAILY #20 09/06/24 caps metronidazole 500 mg tablet 500 mg PO Q8H #30 tabs 09/06/24 Allergies Allergy/AdvReac Type Severity Reaction Status Date / Time amoxicillin AdvReac Severe Unknown Verified 09/30/24 18:41 cefdinir AdvReac Severe Vomiting Verified 09/30/24 18:43 clarithromycin AdvReac Severe Unknown Verified 09/30/24 18:41 levofloxacin AdvReac Severe Unknown Verified 09/30/24 18:41 metronidazole AdvReac Severe Vomiting Verified 09/30/24 18:43 naproxen (From Naprosyn) AdvReac Severe Wheezing Verified 09/30/24 18:41 sulfamethoxazole (From AdvReac Severe Vomiting Verified 09/30/24 18:41 Bactrim) trimethoprim (From Bactrim) AdvReac Severe Vomiting Verified 09/30/24 18:41 Review of Systems ROS Constitutional Denies: fever or chills Eyes Denies: change in vision Ears, nose, mouth, and throat Denies: throat pain or nasal congestion Cardiovascular Reports: lightheadedness; Denies: chest pain Respiratory Denies: shortness of breath Gastrointestinal Denies: abdominal pain, nausea or vomiting Musculoskeletal Denies: back pain or neck pain Integumentary/Breast Denies: rash Neurological Reports: dizziness; Denies: numbness in extremities or weakness in extremities Hematologic/Lymphatic Denies: easy bruising or easy bleeding [facility] Medical History (Updated 09/30/24 @ 21:00 by ENOC Daniel) Acute hypokalemia ?E87.6 - Hypokalemia (ICD-10) Dizziness ?R42 - Dizziness and giddiness (ICD-10) Dehydration ?E86.0 - Dehydration (ICD-10) Abdominal pain ?R10.9 - Unspecified abdominal pain (ICD-10) Constipation ?K59.00 - Constipation, unspecified (ICD-10) Social History Highest level of school completed/degree received: Associate degree: occupational, technical, vocational program Little interest or pleasure in doing things: not at all Feeling down, depressed, or hopeless: not at all Exam Narrative Exam Narrative: Gen.: Awake, alert, in no distress Head: Normocephalic, atraumatic ENT: Moist mucous membranes, bilateral TMs clear Respiratory: No respiratory distress, lungs clear bilaterally Cardio: Regular rate and rhythm Gastrointestinal: Abdomen is soft, nondistended and nontender to palpation Extremities: Moves extremities equally Psych: Normal mood and affect Neuro: No focal neuro deficit Skin: Warm, dry, intact Constitutional Vital Signs, click to edit/add: Last Vital Signs Temp 98 F 09/30/24 18:34 Pulse 67 09/30/24 20:50 Resp 20 09/30/24 20:50 BP 160/72 H 09/30/24 20:32 Pulse Ox 98 09/30/24 20:50 O2 Del Method Room Air 09/30/24 18:34 Course Vital Signs Vital signs: Vital Signs Temperature 98 F 09/30/24 18:34 Pulse Rate 68 09/30/24 18:34 Respiratory Rate 20 09/30/24 18:34 Blood Pressure 155/83 H 09/30/24 18:34 Pulse Oximetry 100 09/30/24 18:34 Oxygen Delivery Method Room Air 09/30/24 18:34 Temperature 98 F 09/30/24 18:34 Pulse Rate 67 09/30/24 20:50 Respiratory Rate 20 09/30/24 20:50 Blood Pressure 160/72 H 09/30/24 20:32 Pulse Oximetry 98 09/30/24 20:50 Oxygen Delivery Method Room Air 09/30/24 18:34 MDM - Dizziness MDM Narrative Medical decision making narrative: CT of the brain, chest x-ray are unremarkable, EKG is normal sinus rhythm. Patient treated with a liter of IV fluids and 4 of Zofran. She had no episodes of emesis in the emergency department. Laboratory studies otherwise reviewed and noted within normal limits, urine specimen is negative. Patient was able to ambulate to the bathroom with no difficulty. She is reevaluated by attending physician prior to discharge and will be discharged home to increase oral fluids, return to the ER if symptoms change or worsen. SUPERVISED APC VISIT, PHYSICIAN ATTESTATION: Based on the medical record the care appears appropriate. ? Medical Records Attestation: I reviewed the patient's medical records. Lab Data Attestation: I reviewed the patient's lab results. Labs: Lab Results 09/30/24 09/30/24 Range/Units 19:00 19:10 WBC 5.3 (4.0-11.0) 10^3/uL RBC 3.99 L (4.20-5.40) 10^6/uL Hgb 12.1 (12.0-16.0) g/dL Hct 37.3 (36.0-48.0) % MCV 93.5 (81.0-99.0) fL MCH 30.3 (26.7-34.0) pg MCHC 32.4 (29.9-35.2) g/dL RDW 13.1 (11.0-15.0) % Plt Count 209 (150-450) 10^3/uL MPV 10.8 (9.5-13.5) fL Neut % (Auto) 69.9 (43.0-75.0) % Lymph % (Auto) 21.2 (20.5-60.0) % Hodgeman % (Auto) 6.6 (1.7-12.0) % Eos % (Auto) 1.5 (0.9-7.0) % Baso % (Auto) 0.4 (0.2-2.0) % Neut # (Auto) 3.7 (1.4-6.5) 10^3/uL Lymph # (Auto) 1.1 L (1.2-3.8) 10^3/uL Hodgeman # (Auto) 0.4 (0.3-0.8) 10^3/uL Eos # (Auto) 0.1 (0.0-0.7) 10^3/uL Baso # (Auto) 0.0 (0.0-0.1) 10^3/uL Abs Immat Gran (auto) 0.02 (0.00-0.03) 10^3/uL Imm/Tot Granulo (auto) 0.4 (0.0-0.5) % PT 11.2 (9.0-11.6) sec INR 1.06 Sodium 138 (136-145) mmol/L Potassium 3.7 (3.5-5.1) mmol/L Chloride 102 (98-107) mmol/L Carbon Dioxide 28.2 (21.0-32.0) mmol/L Anion Gap 11.5 BUN 18.0 (7.0-18.0) mg/dL Creatinine 1.29 H (0.55-1.02) mg/dL Est GFR ( Amer) 48 L (>=60 mL/min/1.73m^2) Est GFR (Non-Af Amer) 40 L (>=60 mL/min/1.73m^2) BUN/Creatinine Ratio 14.0 Glucose 110 H (74-106) mg/dL Lactate 1.1 (0.4-2.0) mmol/L Calcium 9.2 (8.5-10.1) mg/dL Total Bilirubin 0.5 (0.2-1.0) mg/dL AST 22 (15-37) U/L ALT 19 (14-59) U/L Alkaline Phosphatase 53 (46-116) U/L Troponin I High Sens 21.8 (4.0-51.3) pg/mL Total Protein 7.0 (6.4-8.2) g/dL Albumin 3.7 (3.4-5.0) g/dL Globulin 3.3 g/dL Albumin/Globulin Ratio 1.1 TSH 3.306 (0.358-3.740) uIU/mL Urine Color Lt. yellow (YELLOW) Urine Clarity Clear (CLEAR) Urine pH 7.0 (5.0-9.0) Ur Specific Whittaker 1.010 (1.005-1.025) Urine Protein Negative (NEG/TRACE) mg/dL Urine Glucose (UA) Negative (NEGATIVE) mg/dL Urine Ketones Negative (NEGATIVE) mg/dL Urine Occult Blood Negative (NEGATIVE) Urine Nitrite Negative (NEGATIVE) Urine Bilirubin Negative (NEGATIVE) Urine Urobilinogen 0.2 (0.2-1.0) EU/dL Ur Leukocyte Esterase Negative (NEGATIVE) Urine RBC 0-2 (0-2) #/HPF Urine WBC 0-2 A (NONE SEEN) #/HPF Ur Squamous Epith Cells Few A (NONE/RARE) #/LPF Urine Crystals None seen (None Seen) #/HPF Urine Bacteria Trace A (NONE SEEN) #/HPF Urine Casts None seen (NONE SEEN) #/LPF Urine Mucus None seen (NONE SEEN) Ur Culture Indicated? No Imaging Data CT scan - head: Attestation: I have reviewed the pertinent imaging results. Radiologist's impression: ITS Impressions Chest X-Ray 09/30/24 18:41 IMPRESSION: 1. Low lung volume examination. 2. No appreciable acute cardiopulmonary process. Electronically authenticated by: BUCKY CRAIG Date: 09/30/2024 20:[address] 09/30/24 18:42 IMPRESSION: No acute intracranial process. Electronically authenticated by: DELIO CORDOVA Date: 09/30/2024 19:34 ECG Data Attestation: I personally reviewed and interpreted this ECG as follows: (Normal sinus rhythm at a rate of 65, no acute ST elevation or ectopy. EKG reviewed by attending physician) Discharge Plan Discharge Chief Complaint: Dizziness Clinical Impression: Dizziness Patient Disposition: Home, Self-Care Time of Disposition Decision: 20:59 Condition: Good Mode of Transportation: Private Vehicle Prescriptions / Home Meds: No Action oxcarbazepine [Trileptal] 300 mg tablet 300 mg PO DAILY gabapentin [Neurontin] 300 mg capsule 300 mg PO DAILY fenofibrate 160 mg tablet 160 mg PO DAILY benazepril 5 mg tablet 5 mg PO DAILY omeprazole 40 mg capsule,delayed release(DR/EC) 40 mg PO Q12H Premarin 0.625 mg/gram cream 0.625 mg vaginal DAILY Rx Instructions: off 5 days; repeat cycle omega 4-cim-vcb-fish oil [Fish Oil] 1,200 (144-216) mg capsule 2 cap PO DAILY folic acid 1 mg tablet 1 mg PO DAILY calcium carbonate-vitamin D2 600 mg calcium- 200 unit tablet 2 tab PO DAILY cetirizine [24Hour Allergy] 10 mg tablet 10 mg PO DAILY PRN (Reason: allergy symptoms) cefdinir 300 mg capsule 600 mg PO DAILY Qty: 20 0RF Rx Instructions: Tolerated in the past with pcn allergy metronidazole 500 mg tablet 500 mg PO Q8H Qty: 30 0RF Print Language: Luxembourger Instructions: Dizziness (ED) Additional Instructions: Increase oral fluids at home Referrals: Kyle Gottlieb DO [Primary Care Provider] - 1 week Discharge Date/Time: 09/30/24 21:14 Documented by User: Damaso Casillas MD 09/30/24 22:18 HPI - Dizziness General Chief Complaint: Dizziness Stated Complaint: dizzy Time Seen by Provider: 09/30/24 18:31 Related Data Home Medications ?Medication ?Instructions ?Recorded ?Confirmed benazepril 5 mg tablet 5 mg PO DAILY 09/05/24 09/05/24 calcium carb-ergocalciferol (vit 2 tab PO DAILY 09/05/24 09/05/24 D2) 600 mg calcium-200 unit tablet cetirizine 10 mg tablet (24Hour 10 mg PO DAILY PRN allergy symptoms 09/05/24 09/05/24 Allergy) conjugated estrogens 0.625 mg/gram 0.625 mg vaginal DAILY 09/05/24 09/05/24 vaginal cream (Premarin) fenofibrate 160 mg tablet 160 mg PO DAILY 09/05/24 09/05/24 folic acid 1 mg tablet 1 mg PO DAILY 09/05/24 09/05/24 gabapentin 300 mg capsule 300 mg PO DAILY 09/05/24 09/05/24 (Neurontin) omega 3-tgj-oet-fish oil 1,200 mg 2 cap PO DAILY 09/05/24 09/05/24 (144 mg-216 mg) capsule (Fish Oil) omeprazole 40 mg capsule,delayed 40 mg PO Q12H 09/05/24 09/05/24 release oxcarbazepine 300 mg tablet 300 mg PO DAILY 09/05/24 09/05/24 (Trileptal) Previous Rx's ?Medication ?Instructions ?Recorded cefdinir 300 mg capsule 600 mg (2 x 300 mg) PO DAILY #20 09/06/24 caps metronidazole 500 mg tablet 500 mg PO Q8H #30 tabs 09/06/24 Allergies Allergy/AdvReac Type Severity Reaction Status Date / Time amoxicillin AdvReac Severe Unknown Verified 09/30/24 18:41 cefdinir AdvReac Severe Vomiting Verified 09/30/24 18:43 clarithromycin AdvReac Severe Unknown Verified 09/30/24 18:41 levofloxacin AdvReac Severe Unknown Verified 09/30/24 18:41 metronidazole AdvReac Severe Vomiting Verified 09/30/24 18:43 naproxen (From Naprosyn) AdvReac Severe Wheezing Verified 09/30/24 18:41 sulfamethoxazole (From AdvReac Severe Vomiting Verified 09/30/24 18:41 Bactrim) trimethoprim (From Bactrim) AdvReac Severe Vomiting Verified 09/30/24 18:41 PFSH PFS Medical History (Updated 09/30/24 @ 21:00 by ENOC Daniel) Acute hypokalemia ?E87.6 - Hypokalemia (ICD-10) Dizziness ?R42 - Dizziness and giddiness (ICD-10) Dehydration ?E86.0 - Dehydration (ICD-10) Abdominal pain ?R10.9 - Unspecified abdominal pain (ICD-10) Constipation ?K59.00 - Constipation, unspecified (ICD-10) Social History Highest level of school completed/degree received: Associate degree: occupational, technical, vocational program Little interest or pleasure in doing things: not at all Feeling down, depressed, or hopeless: not at all Exam Constitutional Vital Signs, click to edit/add: Last Vital Signs Temp 98 F 09/30/24 18:34 Pulse 67 09/30/24 20:50 Resp 20 09/30/24 20:50 BP 160/72 H 09/30/24 20:32 Pulse Ox 98 09/30/24 20:50 O2 Del Method Room Air 09/30/24 18:34 Course Vital Signs Vital signs: Vital Signs Temperature 98 F 09/30/24 18:34 Pulse Rate 68 09/30/24 18:34 Respiratory Rate 20 09/30/24 18:34 Blood Pressure 155/83 H 09/30/24 18:34 Pulse Oximetry 100 09/30/24 18:34 Oxygen Delivery Method Room Air 09/30/24 18:34 Temperature 98 F 09/30/24 18:34 Pulse Rate 67 09/30/24 20:50 Respiratory Rate 20 09/30/24 20:50 Blood Pressure 160/72 H 09/30/24 20:32 Pulse Oximetry 98 09/30/24 20:50 Oxygen Delivery Method Room Air 09/30/24 18:34 MDM - Dizziness MDM Narrative Medical decision making narrative: CT of the brain, chest x-ray are unremarkable, EKG is normal sinus rhythm. Patient treated with a liter of IV fluids and 4 of Zofran. She had no episodes of emesis in the emergency department. Laboratory studies otherwise reviewed and noted within normal limits, urine specimen is negative. Patient was able to ambulate to the bathroom with no difficulty. She is reevaluated by attending physician prior to discharge and will be discharged home to increase oral fluids, return to the ER if symptoms change or worsen. SUPERVISED APC VISIT, PHYSICIAN ATTESTATION: Based on the medical record the care appears appropriate. I, Dr Casillas, have reviewed the above progress note and course of action in the ER; agree with the above. I have personally seen and evaluated this patient, gone over history and physical, and discussed disposition and treatment plan with the patient. Lab Data Labs: Lab Results 09/30/24 09/30/24 Range/Units 19:00 19:10 WBC 5.3 (4.0-11.0) 10^3/uL RBC 3.99 L (4.20-5.40) 10^6/uL Hgb 12.1 (12.0-16.0) g/dL Hct 37.3 (36.0-48.0) % MCV 93.5 (81.0-99.0) fL MCH 30.3 (26.7-34.0) pg MCHC 32.4 (29.9-35.2) g/dL RDW 13.1 (11.0-15.0) % Plt Count 209 (150-450) 10^3/uL MPV 10.8 (9.5-13.5) fL Neut % (Auto) 69.9 (43.0-75.0) % Lymph % (Auto) 21.2 (20.5-60.0) % Hodgeman % (Auto) 6.6 (1.7-12.0) % Eos % (Auto) 1.5 (0.9-7.0) % Baso % (Auto) 0.4 (0.2-2.0) % Neut # (Auto) 3.7 (1.4-6.5) 10^3/uL Lymph # (Auto) 1.1 L (1.2-3.8) 10^3/uL Hodgeman # (Auto) 0.4 (0.3-0.8) 10^3/uL Eos # (Auto) 0.1 (0.0-0.7) 10^3/uL Baso # (Auto) 0.0 (0.0-0.1) 10^3/uL Abs Immat Gran (auto) 0.02 (0.00-0.03) 10^3/uL Imm/Tot Granulo (auto) 0.4 (0.0-0.5) % PT 11.2 (9.0-11.6) sec INR 1.06 Sodium 138 (136-145) mmol/L Potassium 3.7 (3.5-5.1) mmol/L Chloride 102 (98-107) mmol/L Carbon Dioxide 28.2 (21.0-32.0) mmol/L Anion Gap 11.5 BUN 18.0 (7.0-18.0) mg/dL Creatinine 1.29 H (0.55-1.02) mg/dL Est GFR ( Amer) 48 L (>=60 mL/min/1.73m^2) Est GFR (Non-Af Amer) 40 L (>=60 mL/min/1.73m^2) BUN/Creatinine Ratio 14.0 Glucose 110 H (74-106) mg/dL Lactate 1.1 (0.4-2.0) mmol/L Calcium 9.2 (8.5-10.1) mg/dL Total Bilirubin 0.5 (0.2-1.0) mg/dL AST 22 (15-37) U/L ALT 19 (14-59) U/L Alkaline Phosphatase 53 (46-116) U/L Troponin I High Sens 21.8 (4.0-51.3) pg/mL Total Protein 7.0 (6.4-8.2) g/dL Albumin 3.7 (3.4-5.0) g/dL Globulin 3.3 g/dL Albumin/Globulin Ratio 1.1 TSH 3.306 (0.358-3.740) uIU/mL Urine Color Lt. yellow (YELLOW) Urine Clarity Clear (CLEAR) Urine pH 7.0 (5.0-9.0) Ur Specific Whittaker 1.010 (1.005-1.025) Urine Protein Negative (NEG/TRACE) mg/dL Urine Glucose (UA) Negative (NEGATIVE) mg/dL Urine Ketones Negative (NEGATIVE) mg/dL Urine Occult Blood Negative (NEGATIVE) Urine Nitrite Negative (NEGATIVE) Urine Bilirubin Negative (NEGATIVE) Urine Urobilinogen 0.2 (0.2-1.0) EU/dL Ur Leukocyte Esterase Negative (NEGATIVE) Urine RBC 0-2 (0-2) #/HPF Urine WBC 0-2 A (NONE SEEN) #/HPF Ur Squamous Epith Cells Few A (NONE/RARE) #/LPF Urine Crystals None seen (None Seen) #/HPF Urine Bacteria Trace A (NONE SEEN) #/HPF Urine Casts None seen (NONE SEEN) #/LPF Urine Mucus None seen (NONE SEEN) Ur Culture Indicated? No Imaging Data CT scan - head: Radiologist's impression: ITS Impressions Chest X-Ray 09/30/24 18:41 IMPRESSION: 1. Low lung volume examination. 2. No appreciable acute cardiopulmonary process. Electronically authenticated by: BUCKY CRAIG Date: 09/30/2024 20:[address] 09/30/24 18:42 IMPRESSION: No acute intracranial process. Electronically authenticated by: DELIO CORDOVA Date: 09/30/2024 19:34 Discharge Plan Discharge Chief Complaint: Dizziness Clinical Impression: Dizziness Patient Disposition: Home, Self-Care Time of Disposition Decision: 20:59 Condition: Good Mode of Transportation: Private Vehicle Prescriptions / Home Meds: No Action oxcarbazepine [Trileptal] 300 mg tablet 300 mg PO DAILY gabapentin [Neurontin] 300 mg capsule 300 mg PO DAILY fenofibrate 160 mg tablet 160 mg PO DAILY benazepril 5 mg tablet 5 mg PO DAILY omeprazole 40 mg capsule,delayed release(DR/EC) 40 mg PO Q12H Premarin 0.625 mg/gram cream 0.625 mg vaginal DAILY Rx Instructions: off 5 days; repeat cycle omega 8-pgn-pox-fish oil [Fish Oil] 1,200 (144-216) mg capsule 2 cap PO DAILY folic acid 1 mg tablet 1 mg PO DAILY calcium carbonate-vitamin D2 600 mg calcium- 200 unit tablet 2 tab PO DAILY cetirizine [24Hour Allergy] 10 mg tablet 10 mg PO DAILY PRN (Reason: allergy symptoms) cefdinir 300 mg capsule 600 mg PO DAILY Qty: 20 0RF Rx Instructions: Tolerated in the past with pcn allergy metronidazole 500 mg tablet 500 mg PO Q8H Qty: 30 0RF Print Language: Luxembourger Instructions: Dizziness (ED) Additional Instructions: Increase oral fluids at home Referrals: Kyle Gottlieb DO [Primary Care Provider] - 1 week Discharge Date/Time: 09/30/24 21:14
[2024-09-30 19:08] LABS: Basophils Percent Auto 0.4 % (0.2-2.0); Eosinophils Absolute Auto 0.1 10^3/uL (0.0-0.7); Eosinophils Percent Auto 1.5 % (0.9-7.0); Hematocrit 37.3 % (36.0-48.0); Hemoglobin 12.1 g/dL (12.0-16.0); Immature Granulocytes Abs Auto 0.02 10^3/uL (0.00-0.03); Immature Granulocytes Pct Auto 0.4 % (0.0-0.5); Lymphocytes Absolute Auto 1.1 10^3/uL (1.2-3.8); Lymphocytes Percent Auto 21.2 % (20.5-60.0); Mean Corpuscular HGB Conc 32.4 g/dL (29.9-35.2); Mean Corpuscular Hemoglobin 30.3 pg (26.7-34.0); Mean Corpuscular Volume 93.5 fL (81.0-99.0); Mean Platelet Volume 10.8 fL (9.5-13.5); Monocytes Absolute Auto 0.4 10^3/uL (0.3-0.8); Monocytes Percent Auto 6.6 % (1.7-12.0); Neutrophils Absolute Auto 3.7 10^3/uL (1.4-6.5); Neutrophils Percent Auto 69.9 % (43.0-75.0); Platelet Count 209 10^3/uL (150-450); Red Blood Count 3.99 10^6/uL (4.20-5.40); Red Cell Distribution Width 13.1 % (11.0-15.0); White Blood Count 5.3 10^3/uL (4.0-11.0)
[2024-09-30 19:21] LABS: Alanine Aminotransferase 19 U/L (14-59); Albumin Globulin Ratio 1.1; Albumin Level 3.7 g/dL (3.4-5.0); Alkaline Phosphatase 53 U/L (46-116); Anion Gap 11.5; Aspartate Amino Transferase 22 U/L (15-37); Bilirubin Total 0.5 mg/dL (0.2-1.0); Calcium 9.2 mg/dL (8.5-10.1); Carbon Dioxide 28.2 mmol/L (21.0-32.0); Chloride 102 mmol/L (98-107); Estimated GFR (African America 48 (>=60 mL/min/1.73m^2); Estimated GFR (Non-African Ame 40 (>=60 mL/min/1.73m^2); Globulin 3.3 g/dL; Glucose 110 mg/dL (74-106); Potassium 3.7 mmol/L (3.5-5.1); Sodium 138 mmol/L (136-145)
[2024-09-30 19:25] LABS: INR 1.06; Prothrombin Time 11.2 sec (9.0-11.6)
[2024-09-30 19:26] LABS: Lactate/Lactic Acid 1.1 mmol/L (0.4-2.0)
[2024-09-30] MEDS: ONDANSETRON PF 4 MG/2 ML VIAL IV (19:26)
[2024-09-30] MEDS: 0.9 % SODIUM CHLORIDE 1,000 ML 1000 ML IV (19:26)
[2024-09-30 19:29] LABS: Thyroid Stimulating Hormone 3.306 uIU/mL (0.358-3.740); Troponin I High Sensitivity 21.8 pg/mL (4.0-51.3)
[2024-09-30 20:20] LABS: Bilirubin Urine NEGATIVE (NEGATIVE); Blood Urine NEGATIVE (NEGATIVE); Clarity Urine CLEAR (CLEAR); Color Urine LT. YELLOW (YELLOW); Glucose Urine UA NEGATIVE (NEGATIVE); Ketones Urine NEGATIVE (NEGATIVE); Leukocyte Esterase Urine NEGATIVE (NEGATIVE); Nitrite Urine NEGATIVE (NEGATIVE); Protein Urine NEGATIVE (NEG/TRACE); Urobilinogen Urine 0.2 EU/dL (0.2-1.0)
[2024-09-30 20:55] LABS: Bacteria Urine TRACE #/HPF (NONE SEEN); Cast Seen? NONE SEEN #/LPF (NONE SEEN); Crystals Seen? None Seen #/HPF (None Seen); Mucus Urine NONE SEEN (NONE SEEN); Squamous Epithelial Cell Urine FEW #/LPF (NONE/RARE); Urine Culture Indicated NO; WBC Urine 0-2 #/HPF (NONE SEEN)
[2024-09-30 20:56] LABS: RBC Urine 0-2 #/HPF (0-2)
== END 2024-09-30 21:14 | disposition home or self-care (01) ==
PROVIDERS: Physician Assistant; Emergency Provider Emergency Medicine; PCP Internal Medicine
DX: R42 Dizziness and giddiness (principal)
CPT/HCPCS: 36415; 70450; 71045; 80053; 81001; 83605; 84443; 84484; 85025; 85610; 93005; 96361; 96374; 99285; J2405

== ENCOUNTER 2025-02-07 10:47 | Observation (INO) | payer MEDICARE, OTHER, SELFPAY ==
[2025-02-07] VITALS (34 sets, daily range): BP systolic 133–173; BP diastolic 62–82; PULSE 54–77; TEMP 36.3–36.7; O2SAT 93–99; BMI 24.7; BMI 25.2
--- NOTE | 2025-02-07 11:08 | ECG_ITS ---
[facility] Test Date: 2025-02-07 Pat Name: ANGY BETTS Department: Room: - Gender: Female [employer]: : 1940 Requested By: [id number] Order Number: [id number] Reading MD: BLANKA HIGUERA M.D. Measurements Intervals [place] Rate: 62 P: 49 MT: 154 QRS: 43 QRSD: 86 T: 58 QT: 396 QTc: 402 Interpretive Statements 1100 Sinus rhythm 1102 Sinus arrhythmia 9110 normal ECG Compared to ECG 09/30/2024 18:42:08 No significant changes Electronically Signed On 02-07-2025 18:07:53 EDT by BLANKA HIGUERA M.D.
--- NOTE | 2025-02-07 11:08 | CT_ITS ---
The [address] [address] Patient Name: GINA BETTS MRN: [facility]:[id number] date: 1940 Sex: F Assigned Patient Location: ED.MAIN Current Patient Location: ED.MAIN Accession/Order Number: [id number] Exam Date: 02/07/2025 12:07 Report Date: 02/07/2025 12:10 At the request of: CARLOS NEVAREZ MD Procedure: CT head/brain wo con CT BRAIN WITHOUT CONTRAST: CLINICAL HISTORY: Dizziness COMPARISON: 09/30/2024 TECHNIQUE: Contiguous axial unenhanced images were obtained through the brain. This CT exam was performed using one or more following dose reduction techniques: Automated exposure control, adjustment of the mA and/or kV according to patient size, or use of iterative reconstruction technique. FINDINGS: There is generalized atrophy. The ventricles are normal in size and position. Minor microvascular changes are noted. There are no additional areas of abnormal attenuation. There is no hemorrhage, mass effect or extra-axial collections. The imaged paranasal sinuses and mastoid air cells are clear. There is minor carotid siphon plaque. CT/CT head/brain wo con IMPRESSION: AGE-RELATED CHANGES. NO ACUTE INTRACRANIAL ABNORMALITY. Impression dictated by: Gina Garrett M.D. 02/07/2025 12:10 PM Dictation Location: [place] [address] Electronically authenticated by: [id number] Y Date: 02/07/2025 12:10
--- NOTE | 2025-02-07 11:10 | ED.GENADUL1 ---
HPI HPI - General Adult General Chief complaint: Dizziness Stated complaint: DIZZINESS Time Seen by Provider: 02/07/25 10:57 History of Present Illness HPI narrative: 84-year-old female presents for dizziness. She is complaining of a spinning sensation which began yesterday and was worse today. She has never experienced this previously. She does not complain of headache or localized weakness or any speech difficulty. When she lays still she feels better and if she stands up or turns her head she feels worse. No fever chest pain palpitations or vomiting. Related Data Home Medications ?Medication ?Instructions ?Recorded ?Confirmed cetirizine 10 mg tablet (24Hour 10 mg PO DAILY PRN allergy symptoms 09/05/24 02/07/25 Allergy) conjugated estrogens 0.625 mg/gram 0.625 mg vaginal DAILY 09/05/24 02/07/25 vaginal cream (Premarin) fenofibrate 160 mg tablet 160 mg PO DAILY 09/05/24 02/07/25 folic acid 1 mg tablet 1 mg PO DAILY 09/05/24 02/07/25 gabapentin 300 mg capsule 300 mg PO DAILY 09/05/24 02/07/25 (Neurontin) omega 0-zue-jny-fish oil 1,200 mg 2 cap PO DAILY 09/05/24 02/07/25 (144 mg-216 mg) capsule (Fish Oil) omeprazole 40 mg capsule,delayed 40 mg PO Q12H 09/05/24 02/07/25 release oxcarbazepine 300 mg tablet 300 mg PO DAILY 09/05/24 02/07/25 (Trileptal) benazepril 10 mg tablet mg PO DAILY 02/07/25 sertraline 25 mg tablet mg 02/07/25 Previous Rx's ?Medication ?Instructions ?Recorded meclizine 25 mg tablet 25 mg PO TID PRN dizziness #20 tabs 02/07/25 Allergies Allergy/AdvReac Type Severity Reaction Status Date / Time amoxicillin AdvReac Severe Unknown Verified 02/07/25 10:56 cefdinir AdvReac Severe Vomiting Verified 02/07/25 10:56 clarithromycin AdvReac Severe Unknown Verified 02/07/25 10:56 levofloxacin AdvReac Severe Unknown Verified 02/07/25 10:56 metronidazole AdvReac Severe Vomiting Verified 02/07/25 10:56 naproxen (From Naprosyn) AdvReac Severe Wheezing Verified 02/07/25 10:56 sulfamethoxazole (From AdvReac Severe Vomiting Verified 02/07/25 10:56 Bactrim) trimethoprim (From Bactrim) AdvReac Severe Vomiting Verified 02/07/25 10:56 Opioid HPI Opioid Management Most Recent Opioid Data: Last Pain Scale 4 09/05/24, 23:00 Last ORT Total Score 0 09/05/24, 20:08 Last ORT Risk Category Low Risk 09/05/24, 20:08 Review of Systems ROS Narrative A ten point review of systems is negative except as noted above. [facility] Medical History (Updated 02/07/25 @ 13:04 by Driss Grey MD) Acute hypokalemia ?E87.6 - Hypokalemia (ICD-10) Dizziness ?R42 - Dizziness and giddiness (ICD-10) Dehydration ?E86.0 - Dehydration (ICD-10) Abdominal pain ?R10.9 - Unspecified abdominal pain (ICD-10) Constipation ?K59.00 - Constipation, unspecified (ICD-10) Social History Highest level of school completed/degree received: Associate degree: occupational, technical, vocational program Little interest or pleasure in doing things: not at all Feeling down, depressed, or hopeless: not at all Exam Narrative Exam Narrative: Nurses note and vital signs reviewed and patient is not hypoxic. General: The patient appears well and in no apparent distress. Patient is resting comfortably on cart. Skin: Warm, dry, no pallor noted. There is no rash noted. Head: Normocephalic, atraumatic Eye: Normal conjunctiva, no drainage, EOMI. PERRL Ears, Nose, Mouth, and Throat: oral mucosa is moist. Nares patent. Cardiovascular: Regular Rate and Rhythm Respiratory: Patient is in no distress, no accessory muscle use, lungs are clear to auscultation, no wheezing, rales or rhonchi Back: non-tender GI: Normal bowel sounds, no tenderness to palpation, no masses appreciated. No rebound, guarding, or rigidity noted. Musculoskeletal: The patient has no evidence of calf tenderness, no pitting edema, symmetrical pulses noted bilaterally Neurological: A&O, normal speech; upper and lower extremity strength symmetric and intact Psychiatric: Cooperative Constitutional Vital Signs, click to edit/add: Last Vital Signs Temp 98.1 F 02/07/25 10:57 Pulse 58 L 02/07/25 12:40 Resp 14 02/07/25 12:40 BP 137/66 02/07/25 12:30 Pulse Ox 97 02/07/25 12:40 O2 Del Method Room Air 02/07/25 10:57 Course Vital Signs Vital signs: Vital Signs Temperature 98.1 F 02/07/25 10:57 Pulse Rate 62 02/07/25 10:57 Respiratory Rate 16 02/07/25 10:57 Blood Pressure 154/70 H 02/07/25 10:57 Pulse Oximetry 98 02/07/25 10:57 Oxygen Delivery Method Room Air 02/07/25 10:57 Temperature 98.1 F 02/07/25 10:57 Pulse Rate 58 L 02/07/25 12:40 Respiratory Rate 14 02/07/25 12:40 Blood Pressure 137/66 02/07/25 12:30 Pulse Oximetry 97 02/07/25 12:40 Oxygen Delivery Method Room Air 02/07/25 10:57 Medical Decision Making MDM Narrative Medical decision making narrative: Her workup including CT brain is negative. She was given IV Valium and seems to be feeling improved and is able to be discharged home on oral Antivert. She will follow-up with her physician and by coincidence she has an appointment with her neurologist tomorrow. Treatment diagnosis and follow-up were discussed with the patient. Differential Diagnosis Differential Diagnosis: Intracranial hemorrhage, CVA, vertigo, labyrinthitis, dehydration, anemia Lab Data Lab results reviewed: Yes I reviewed the patient's lab results Labs: Lab Results 02/07/25 02/07/25 Range/Units 11:10 11:31 WBC 4.5 (4.0-11.0) 10^3/uL RBC 3.87 L (4.20-5.40) 10^6/uL Hgb 11.6 L (12.0-16.0) g/dL Hct 35.1 L (36.0-48.0) % MCV 90.7 (81.0-99.0) fL MCH 30.0 (26.7-34.0) pg MCHC 33.0 (29.9-35.2) g/dL RDW 13.9 (11.0-15.0) % Plt Count 189 (150-450) 10^3/uL MPV 10.4 (9.5-13.5) fL Neut % (Auto) 73.3 (43.0-75.0) % Lymph % (Auto) 18.2 L (20.5-60.0) % Emanuel % (Auto) 6.3 (1.7-12.0) % Eos % (Auto) 1.6 (0.9-7.0) % Baso % (Auto) 0.2 (0.2-2.0) % Neut # (Auto) 3.3 (1.4-6.5) 10^3/uL Lymph # (Auto) 0.8 L (1.2-3.8) 10^3/uL Emanuel # (Auto) 0.3 (0.3-0.8) 10^3/uL Eos # (Auto) 0.1 (0.0-0.7) 10^3/uL Baso # (Auto) 0.0 (0.0-0.1) 10^3/uL Abs Immat Gran (auto) 0.02 (0.00-0.03) 10^3/uL Imm/Tot Granulo (auto) 0.4 (0.0-0.5) % Sodium 141 (136-145) mmol/L Potassium 3.6 (3.5-5.1) mmol/L Chloride 104 (98-107) mmol/L Carbon Dioxide 24.4 (21.0-32.0) mmol/L Anion Gap 16.2 BUN 21.0 H (7.0-18.0) mg/dL Creatinine 1.06 H (0.55-1.02) mg/dL Est GFR ( Amer) >60 (>=60 mL/min/1.73m^2) Est GFR (Non-Af Amer) 50 L (>=60 mL/min/1.73m^2) BUN/Creatinine Ratio 19.8 Glucose 114 H (74-106) mg/dL Calcium 9.2 (8.5-10.1) mg/dL Urine Color Lt. yellow (YELLOW) Urine Clarity Clear (CLEAR) Urine pH 6.0 (5.0-9.0) Ur Specific [place] 1.020 (1.005-1.025) Urine Protein Negative (NEG/TRACE) mg/dL Urine Glucose (UA) Negative (NEGATIVE) mg/dL Urine Ketones Negative (NEGATIVE) mg/dL Urine Occult Blood Negative (NEGATIVE) Urine Nitrite Negative (NEGATIVE) Urine Bilirubin Negative (NEGATIVE) Urine Urobilinogen 1.0 (0.2-1.0) EU/dL Ur Leukocyte Esterase Negative (NEGATIVE) Urine RBC None seen (0-2) #/HPF Urine WBC 0-2 A (NONE SEEN) #/HPF Ur Squamous Epith Cells Moderate A (NONE/RARE) #/LPF Urine Crystals None seen (None Seen) #/HPF Urine Bacteria Trace A (NONE SEEN) #/HPF Urine Casts None seen (NONE SEEN) #/LPF Urine Mucus Trace A (NONE SEEN) Ur Culture Indicated? No Imaging Data CT scan - head: Radiologist's impression: ITS Impressions Head CT 02/07/25 11:08 IMPRESSION: AGE-RELATED CHANGES. NO ACUTE INTRACRANIAL ABNORMALITY. Impression dictated by: Gina Garrett M.D. 02/07/2025 12:10 PM Dictation Location: [place] [address] Electronically authenticated by: [id number] Y Date: 02/07/2025 12:10 ECG Data Attestation: I personally reviewed and interpreted this ECG as follows: (EKG on my interpretation shows normal sinus rhythm with a rate of 62 and no acute change) Discharge Plan Discharge Chief Complaint: Dizziness Clinical Impression: Vertigo Patient Disposition: Home, Self-Care Time of Disposition Decision: 13:04 Condition: Good Mode of Transportation: Private Vehicle Prescriptions / Home Meds: New meclizine 25 mg tablet 25 mg PO TID PRN (Reason: dizziness) Qty: 20 0RF No Action benazepril 10 mg tablet PO DAILY sertraline 25 mg tablet oxcarbazepine [Trileptal] 300 mg tablet 300 mg PO DAILY gabapentin [Neurontin] 300 mg capsule 300 mg PO DAILY fenofibrate 160 mg tablet 160 mg PO DAILY omeprazole 40 mg capsule,delayed release(DR/EC) 40 mg PO Q12H Premarin 0.625 mg/gram cream 0.625 mg vaginal DAILY Rx Instructions: off 5 days; repeat cycle omega 7-req-owu-fish oil [Fish Oil] 1,200 (144-216) mg capsule 2 cap PO DAILY folic acid 1 mg tablet 1 mg PO DAILY cetirizine [24Hour Allergy] 10 mg tablet 10 mg PO DAILY PRN (Reason: allergy symptoms) Print Language: Arabic Instructions: Vertigo (ED) Referrals: Kyle Gottlieb DO [Primary Care Provider, Internal Medicine] - 1 week
--- OUTSIDE RECORDS SUMMARY | 2025-02-07 11:10 | XMS_ITS | CCD ---
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 Superintendent Name Role Phone Doni Rivera Unavailable DO Kyle Gottlieb Primary Care Provider [phone] DO Aamir Dao Attending Provider [phone] DO Aamir Dao Referring Provider [phone] Kyle Gottlieb Unavailable MICAH, DR MURPHY Primary Care Unavailable MICAH, DR MURPHY Attending Unavailable BALL, DR MURPHY Consulting Unavailable MICAH, DR MURPHY Admitting Unavailable BALL, DR MURPHY Attending Unavailable MICAH, DR MURPHY Consulting Unavailable MICAH, DR MURPHY Primary Care Unavailable MICAH, DR MURPHY Admitting Unavailable KIARA, DR BUCKY Florez Consulting Unavailable MICAH, DR MURPHY Admitting Unavailable BALL, DR MURPHY Attending Unavailable BALL, DR MURPHY Consulting Unavailable MICAH, DR MURPHY Primary Care Unavailable NEFCY, NANDO Consulting Unavailable MICAH, DR MURPHY Attending Unavailable BALL, DR MURPHY Primary Care Unavailable BALL, DR MURPHY Admitting Unavailable HOY ., DR MATTHEWS Consulting Unavailable NADERER, DR ANA MARIA Lambert Admitting Unavailable NADERER, DR ANA MARIA Lambert Attending Unavailable MICAH, DR MURPHY Primary Care Unavailable ZIEBER, DR BUCKY Florez Consulting Unavailable NADERER, DR ANA MARIA Lambert Consulting Unavailable KATKO, CARLOS Acosta Consulting Unavailable JAE, MOY Consulting Unavailable SISTER, MARGOT Consulting Unavailable HEGG, RAKESH Consulting Unavailable RASTEGAR, KELVIN Consulting Unavailable MICAH, DR MURPHY Admitting Unavailable BALL, DR MURPHY Attending Unavailable BALL, DR MURPHY Consulting Unavailable BALL, DR MURPHY Primary Care Unavailable NEFJUHI, NANDO Consulting Unavailable DO Kyle Gottlieb Primary Care Provider [phone] DO Aamir Dao Attending Provider Tonya Harrison Unavailable Kyle Gottlieb MD Primary Care Provider DO Kyle Gottlieb Primary Care Provider DO Aamir Dao Attending Provider [phone] Kyle Gottlieb DO Primary Care Provider Aamir Dao DO Attending Provider Anita Garcia Attending Unavailable Anita Garcia Admitting Unavailable Kyle Gottlieb Primary Care Unavailable Aamir Dao Attending Unavailable Aamir Dao Admitting Unavailable Anita Garcia MD Attending Provider [phone] Anita Garcia MD Attending Provider [phone] PONCESHIVAM SCHULZ Attending Unavailable LASHAY, SHIVAM W Attending Unavailable AAMIR DAO Attending Unavailable PONCE, SHIVAM W Attending Unavailable PONCE, SHIVAM W Attending Unavailable PONCE, SHIVAM W Attending Unavailable PONCE, SHIVAM W Attending Unavailable PONCE, SHIVAM W Attending Unavailable PONCE, SHIVAM W Attending Unavailable Kyle Gottlieb DO Primary Care Provider Allergies Allergy Classification Reported Allergen(s) Allergy Type Date of Onset Reaction(s) Facility (20 sources) Amoxicillin Drug Allergy 11-29-19 22 Unknown, [facility] (20 sources) Clarithromycin Drug Allergy 11-29-19 22 Unknown, [facility] (20 sources) Naproxen Drug Allergy 11-29-19 22 Unknown [place] (20 sources) Sulfamethoxazole / Trimethoprim Drug Allergy 02-17-20 23 Unknown [facility] (20 sources) LEVOFLAXIN Propensity to adverse reactions 09-17-19 24 Unknown, Unknown Reaction [place] (11 sources) Sulfamethoxazole / Trimethoprim; Translations: [Bactrim] Drug Allergy 11-19-19 14 Unknown [facility] (20 sources) levoFLOXacin; Translations: [Levofloxacin] Drug Allergy 11-29-19 [facility] (20 sources) Sulfamethoxazole Drug Allergy 11-29-19 22 Unknown [place] (20 sources) Trimethoprim Drug Allergy 11-29-19 Unknown [place] (1 source) Amoxicillin Drug Allergy [facility] (1 source) Clarithromycin Drug Allergy [facility] (1 source) Naproxen Drug Allergy 11-19-19 14 [facility] (17 sources) Baclofen Drug Allergy Unknown [facility] Other (17 sources) levoFLOXacin Drug Allergy Unknown [facility] Other (17 sources) Penicillin Drug Allergy Unknown [facility] Other (17 sources) predniSONE Drug Allergy Unknown [facility] Other (20 sources) Biaxin XL *MACROLIDES* Propensity to adverse reactions 09-17-19 24 Unknown, Unknown Reaction [place] (2 sources) Allergies Reconciled Propensity to adverse reactions Unknown [facility] Other (2 sources) patient allergy list reviewed by nurse or physicia Propensity to adverse reactions 09-10-19 16 Comment:Done [facility] Other (17 sources) corticosteroid and/or corticosteroid derivative (FN) Drug allergy Unknown [facility] Other (20 sources) Substance with sulfonamide structure and antibacterial mechanism of action (substance) Drug allergy 05-27-20 24 Unknown [facility] Other (17 sources) Substance with penicillin structure and antibacterial mechanism of action (substance) Drug allergy Unknown [facility] Other (16 sources) Clarithromycin Allergy to substance 11-29-19 22 [facility] (20 sources) Corticosteroids Allergy to substance 09-17-19 Unknown Reaction [place] (20 sources) Penicillins Allergy to substance 09-17-19 Unknown Reaction [place] (20 sources) Sulfonamides (Antibiotic) Allergy to substance 09-17-19 Unknown Reaction [place] (14 sources) Corticosteroids and derivatives Drug Allergy 03-09-20 24 Unknown [facility] (14 sources) Macrolides And Ketolides Drug Allergy 10-21-19 24 Unknown [facility] Medications Current Medications Medication Drug Class(es) Dates Sig (Normalized) Sig (Original) azithromycin 250 mg oral tablet (20 sources) Macrolide Antimicrobial Start: 11-15-2024 Azithromycin 250 mg tablet Active 250 MG PO .COMPLEX 6 November 15, 2024 12:00am 2 tabs on first day followed by 1 tab on days 2-5 Start: 11-25-2023 End: 06-14-2024 Azithromycin 250 mg tablet D iscontinued 250 MG PO As Directed 02 09May 11, 2024 12:00am June 14, 2024 11:09am Start: 09-17-2023 Azithromycin 2 50 MG as directed Orally daily for 5 days Sep, Active Start: 08-28-2023 Azithromycin 2 50 MG 2 tablet on the first day, then 1 tablet daily for 4 days Orally Once a day for 5 day(s) Aug, Active benazepril hydrochloride 10 mg oral tablet (20 sources) Angiotensin Converting Enzyme Inhibitor Start: 10-18-2024 End: 10-27-2024 take 1 tablet by mouth once daily Benazepril 10 mg tablet Active 10 MG PO Daily October 27, 2024 6:11pm Start: 03-08-2024 End: 10-18-2024 take 1 tablet by mouth once daily Benazepril 5 mg tablet Discontinued 0 .ROUTE .COMPLEX October 18, 2024 12:49pm October 18, 2024 12:50pm TAKE 1 TABLET BY MOUTH ONCE DAILY Start: 03-08-2024 take 1 tablet by [place] once daily Benazepril Active 0 .ROUTE .COMPLEX March 08, 2024 8:40am TAKE 1 TABLET BY MOUTH ONCE DAILY Start: 11-28-2021 End: 03-08-2024 take 1 tablet by mouth once daily Benazepril 5 mg tablet Discontinued 5 MG PO Daily November 28, 2021 12:00am March 08, 2024 8:40am Benazepril HCl A ctive benzonatate 200 mg oral capsule (3 sources) Non-narcotic Antitussive Start: 11-15-2024 take 1 capsule by mouth three times daily Benzonatate 200 mg capsule Active 200 MG PO Three times daily 06 07November 15, 2024 12:00am bisoprolol fumarate 2.5 mg / hydroCHLOROthiazide 6.25 mg oral tablet (7 sources) Thiazide Diuretic, beta-Adrenergic Daniel take 1 tablet by mouth every twenty-four hours Bisoprolol-hydro CHLOROthiazide 2.5-6.25 MG 1 tablet Orally Once a day Active calcium carbonate 1500 mg / cholecalciferol 500 unt oral capsule (20 sources) Vitamin D Start: 08-16-2024 Calcium Carbonate-Vitami n D3 (Calcium 600 With Vitamin D3) 600 mg-12.5 mcg (500 unit) capsule Active CAP PO August 16, 2024 1:00am take 1 tablet by [place] once daily at mealtime take 1 tablet by [place] every twenty-four hours Calcium + D 600-200 MG-UNIT 1 tablet wit h food Orally Once a day for 30 day(s) Active Calcium Carbonate-Vit D-Min (Calcium 600+D Plus Minerals) 600-400 MG-UNIT chewable tablet (17 sources) Calcium Carbonat e-Vit D-Min (Calcium 600+D [...] PO Daily as needed August 16, 2024 1:00am Start: 11-28-2021 End: 10-21-2023 take 1 tablet by mouth once daily Cetirizine (Zyrtec) 10 mg tablet Discontinued 10 MG PO Daily November 28, 2021 12:00am October 21, 2023 12:30pm docusate sodium 100 mg oral capsule (17 sources) docusate sodium (Colace) 100 MG capsule 1 (one) time each day at the same time. Active estradiol 0.1 mg/ml vaginal cream (14 sources) Estrogen Start: 05-03-2024 estradiol (Est race) 0.1 MG/GM vaginal cream Indications: Hormone replacement therapy Use 0.5 g vaginally once weekly. 42.5 g 05/03/2024 Active estrogens, conjugated (residential) 0.625 mg/ml vaginal cream (20 sources) Estrogen Start: 11-28-2021 Conjugated Est rogens (Premarin) 0.625 mg/gram cream Active 1 APPLIC TOPICAL As Directed November 28, 2021 12:00am Start: 12-31-2016 End: 05-03-2024 Estrogens Conjugated (Premar in) 0.625 MG/GM cream 1/2gram Vaginal twice per week for 90 days 12/31/2016 05/03/2024 Discontinued (Cost of medication) Premarin 0.625 M G/GM as directed Vaginal Active Premarin 0.625 M G/GM as directed Vaginal Active fenofibrate 160 mg oral tablet (20 sources) Peroxisome Proliferator Receptor alpha Agonist Start: 10-27-2024 take 1 tablet by mouth once daily Fenofibrate 160 mg tablet Active 160 MG PO Daily 90 October 27, 2024 6:10pm Start: 11-04-2023 End: 10-27-2024 take 1 tablet by mouth once daily Fenofibrate 160 mg tablet Discontinued 0 .ROUTE .COMPLEX November 04, 2023 7:09pm October 27, 2024 6:11pm TAKE 1 TABLET BY MOUTH ONCE DAILY Start: 11-04-2023 [facility] Fenofibrate Active 0 .ROUTE .COMPLEX November 04, 2023 7:09pm TAKE 1 TABLET BY MOUTH ONCE DAILY Start: 11-28-2021 End: 11-04-2023 take 1 tablet by mouth once daily Fenofibrate 160 mg tablet Discontinued 160 MG PO Daily November 28, 2021 12:00am November 04, 2023 7:09pm Start: 06-12-2010 take 1 capsule by mo [facility] once daily at mealtime fenofibrate micronized (Lofibra) 134 MG capsule take 1 capsule (134MG) by ORAL route every day with food Oral 06/12/2010 Active Fish Jxk-Flxby-0-Vit C-Vit E 2,000-650-12 mg/2.5 gram emulsion in packet (7 sources) Start: 08-16-2024 Fish Oil-[place] -3-Vit C-Vit E 2,000-650-12 mg/2.5 gram emulsion in packet Active GM PO August 16, 2024 1:00am Start: 08-16-2024 Fish Oil-[place] -3-Vit C-Vit E 2,000-650-12 mg/2.5 gram emulsion in packet Active GM PO August 16, 2024 12:00am Fish Oils (20 sources) take 1 capsule by mouth three ti mes daily take 1 capsule by mouth three ti mes daily Fish Oil 1200 MG 1 capsule Orally Three times a day for 30 day(s) Active furosemide 40 mg oral tablet (1 source) Loop Diuretic Start: 12-17-2022 take 1 tablet by mouth every twenty-four hours Furosemide 40 MG 1 tablet Orally Once a day for 7 days Dec, Active gabapentin 300 mg oral capsule (20 sources) Anti-epileptic Agent Start: 07-18-2024 take 1 capsule by mouth once daily Gabapentin 300 mg capsule Active 0 .ROUTE .COMPLEX 90 July 18, 2024 1:58pm TAKE 1 CAPSULE BY MOUTH ONCE DAILY Start: 06-06-2009 End: 07-18-2024 take 1 capsule by mouth once daily at bedtime Gabapentin (Neurontin) 300 mg Capsule Discontinued 300 MG PO Daily at bedtime November 28, 2021 12:00am July 18, 2024 1:58pm take 1 capsule by [facility] every eight hours Neurontin 300 MG 1 capsule Orally Three times a day Active hydrocortisone acetate 25 mg rectal suppository (20 sources) Corticosteroid Start: 04-18-2024 hydrocortisone (Anusol-HC) 25 MG suppository UNWRAP AND INSERT 1 SUPPOSITORY RECTALLY EVERYDAY AT BEDTIME 04/18/2024 Active Start: 10-21-2023 End: 08-16-2024 Hydrocortisone (Proctosol Hc ) 2.5 % cream with perineal applicator Discontinued 1 APPLIC MT 1 to 2 times per day as needed October 21, 2023 1:00am August 16, 2024 12:15pm Start: 11-28-2021 End: 11-25-2023 Hydrocortisone Acetate (Anuc ort-Hc) 25 mg suppository Discontinued 25 MG MT Daily at bedtime October 21, 2023 1:00am November 25, 2023 11:27am Proctozone-HC 2. 5 % APPLY TOPICALLY 2 TO 4 TIMES DAILY for 90 Active Proctosol HC 2.5 % 1 application to affected area Rectal Twice a day for 30 days Active Anucort-HC Activ e Hydrocortisone Acetate (Anucort-Hc) 25 mg suppository (20 sources) Start: 11-25-2023 Hydrocortisone Acetate (Anucort-Hc) 25 mg suppository Active 25 MG MT Daily at bedtime 30 08November 25, 2023 10:27am Start: 11-25-2023 Hydrocortisone Acetate (Anucort-Hc) 25 mg suppository Active 25 MG MT Daily at bedtime 30 08November 25, 2023 11:27am ipratropium bromide 0.042 mg/actuat metered dose nasal spray (15 sources) Anticholinergic Start: 02-16-2023 take 2 spray(s) [...] Mecobalamin (Vitamin B12) 10,000 mcg recon soln (7 sources) Start: 08-16-2024 Mecobalamin (Vitamin B12) 10,000 mcg recon soln Active MCG IV August 16, 2024 1:00am Start: 08-16-2024 Mecobalamin (V itamin B12) 10,000 mcg recon soln Active MCG IV August 16, 2024 12:00am omeprazole 40 mg delayed release oral capsule (7 sources) Proton Pump Inhibitor Start: 08-16-2024 take 1 capsule by mouth twice daily Omeprazole 40 mg capsule,delayed release(DR/EC) Active 40 MG PO Twice daily 180 August 16, 2024 1:00am ondansetron 4 mg disintegrating oral tablet (20 sources) Serotonin-3 Receptor Antagonist Start: 10-04-2024 take 1 tablet by mouth every eight hours as needed for nausea and vomiting Ondansetron 4 mg tablet,disintegratin g Active 4 MG PO Every 8 hours as needed for nausea and vomiting 07 06October 04, 2024 1:00am Start: 03-09-2024 End: 08-16-2024 take 1 tablet by mouth every six hours as needed for nausea and vomiting Ondansetron 4 mg tablet,disintegrating Discontinued 4 MG PO Every 6 hours as needed for nausea and vomiting 24 01March 09, 2024 12:00am August 16, 2024 12:15pm OXcarbazepine 300 mg oral tablet (20 sources) Anti-epileptic Agent Start: 01-12-2024 End: 01-06-2025 take 1 tablet by mouth once daily at bedtime Oxcarbazepine 300 mg tablet Active 0 .ROUTE .COMPLEX January 06, 2025 1:28pm TAKE 1 TABLET BY MOUTH EVERY NIGHT AT BEDTIME Start: 06-06-2009 End: 01-12-2024 take 1 tablet by mouth at bedtime Oxcarbazepine (Trileptal) 300 mg Tablet Discontinued 300 MG PO Bedtime November 28, 2021 12:00am January 12, 2024 2:14pm sertraline 25 mg oral tablet (15 sources) Serotonin Reuptake Inhibitor Start: 11-12-2024 take 1 tablet by mouth once daily Sertraline 25 mg tablet Active 0 .ROUTE .COMPLEX November 12, 2024 5:03pm TAKE 1 TABLET BY MOUTH DAILY Start: 10-18-2024 End: 11-12-2024 take 1 tablet by mouth once daily Sertraline 25 mg tablet Discontinued 25 MG PO Daily October 18, 2024 12:41pm November 12, 2024 5:03pm Start: 10-04-2024 End: 10-18-2024 take 1 tablet by mouth once daily Sertraline 50 mg tablet Discontinued 50 MG PO Daily October 04, 2024 1:00am October 18, 2024 12:41pm Stool Softener (20 sources) Stool Softener A ctive tiZANidine 4 mg oral tablet (20 sources) Central alpha-2 Adrenergic Agonist Start: 09-14-2024 End: 09-24-2024 take 1 tablet by mouth at bedtime tiZANidine (Zanaflex) 4 MG tablet Indications: Cervical paraspinal muscle spasm Take 1 tablet (4 mg) by mouth at bedtime for 10 days 30 tablet 3 09/14/2024 Active Start: 11-28-2021 End: 08-16-2024 Tizanidine (Zanaflex) 4 mg T ablet Discontinued 2 MG PO Bedtime as needed for Pain November 28, 2021 12:00am August 16, 2024 12:11pm Start: 06-06-2009 take 1 tablet by [place] once at bedtime tiZANidine (Zanaflex) 4 MG capsule take 1 tablet (4MG) by ORAL route every bedtime Oral 06/06/2009 Active take 1 tablet by [place] every eight hours Zanaflex 4 MG 1 tablet as needed Orally every 8 hrs Active valACYclovir 500 mg oral tablet (17 sources) Herpesvirus Nucleoside Analog DNA Polymerase Inhibitor, [...] mcg bupivacaine hydrochloride 5 mg/ml injectable solution (19 sources) Amide Local Anesthetic Start: 12-26-2024 End: 12-08-2024 bupivacaine (Marcaine) 0.5 % injection 5 mg Start: 12-26-2024 End: 12-08-2024 5 mg (1 mL), Injection, Once , On Thu12/26/24 at 1545, For 1 dose Start: 10-17-2024 End: 10-14-2024 bupivacaine (Marcaine) 0.5 % injection 5 mg Start: 10-17-2024 End: 10-14-2024 5 mg (1 mL), Injection, Once , On Thu10/17/24 at 1330, For 1 dose Start: 09-19-2024 End: 09-14-2024 bupivacaine (Marcaine) 0.5 % injection 5 mg Start: 09-19-2024 End: 09-14-2024 5 mg (1 mL), Injection, Once , On 09/19/24 at 0015, For 1 dose Start: 08-18-2024 [...] PO Twice daily October 21, 2023 1:00am June 14, 2024 11:09am Start: 12-14-2022 Cefdinir 300 M G as directed Orally bid Dec, Active dexamethasone phosphate 4 mg/ml injectable solution (20 sources) Corticosteroid Start: 12-26-2024 End: 12-08-2024 dexAMETHasone sod phos (Decadron) injection 4 mg Start: 12-26-2024 End: 12-08-2024 4 mg (1 mL), Injection, Once , On Thu12/26/24 at 1545, For 1 dose Start: 10-17-2024 End: 10-14-2024 dexAMETHasone sod phos (Deca dron) injection 4 mg Start: 10-17-2024 End: 10-14-2024 4 mg (1 mL), Injection, Once , On Thu10/17/24 at 1330, For 1 dose Start: 09-19-2024 End: 09-14-2024 dexAMETHasone sod phos (Deca dron) injection 4 mg Start: 09-19-2024 End: 09-14-2024 [...] mg (1 mL), Injection, Once , On 06/01/24 at 1630, For 1 dose Start: 03-17-2024 [...] Four times daily October 21, 2023 1:00am August 16, 2024 12:15pm take 1 tablet by mouth every six hours Dicyclomine HCl 20 MG 1 tablet Orally QID Active folic acid 1 mg oral tablet (20 sources) Start: 01-09-2023 End: 08-08-2024 take 1 tablet by mouth once daily Folic Acid 1 mg tablet Discontinued 1 MG PO Daily October 21, 2023 1:00am August 08, 2024 1:22pm Hydrocortisone (Proctosol Hc) 2.5 % Cream With Applicator (20 sources) Start: 11-28-2021 End: 10-21-2023 Hydrocortisone (Proctosol Hc) 2.5 % Cream With Applicator Discontinued 1 EACH MT Daily as needed for Hemorrhoids November 28, 2021 12:00am October 21, 2023 12:30pm Start: 11-28-2021 End: 10-21-2023 Hydrocortisone (Proctosol Hc ) 2.5 % Cream With Applicator Discontinued 1 EACH MT Daily as needed for Hemorrhoids November 27, 2021 11:00pm October 21, 2023 11:30am Start: 11-28-2021 End: 10-21-2023 Hydrocortisone (Proctosol Hc ) 2.5 % Cream With Applicator Discontinued 1 EACH MT Daily November 28, 2021 12:00am October 21, 2023 12:30pm Start: 11-28-2021 Hydrocortisone (Proctosol Hc) 2.5 % Cream With Applicator Active 1 EACH MT Daily November 27, 2021 11:00pm Start: 11-28-2021 Hydrocortisone (Proctosol Hc) 2.5 % Cream With Applicator Active 1 EACH MT Daily November 28, 2021 12:00am metroNIDAZOLE 500 mg oral tablet (17 sources) Nitroimidazole Antimicrobial Start: 03-09-2024 End: 08-16-2024 take 1 tablet by mouth every eight hours Metronidazole 500 mg tablet Discontinued 500 MG PO Every 8 hours 27 03March 09, 2024 12:00am August 16, 2024 12:15pm [place] 8-Tzx-Xzf-Fish Oil (Fish Oil) 1,200 (144-216) mg Capsule (20 sources) Start: 11-28-2021 End: 10-21-2023 take 2 capsules by mouth at bedtime [place] 4-Ktg-Haj-Fish Oil (Fish Oil) 1,200 (144-216) mg Capsule Discontinued 2 CAP PO Bedtime November 27, 2021 11:00pm October 21, 2023 11:30am Start: 11-28-2021 End: 10-21-2023 take 2 capsules by mouth at bedtime [place] 5-Qku-Ttv-Fish Oil (Fish Oil) 1,200 (144-216) mg Capsule Discontinued 2 CAP PO Bedtime November 28, 2021 12:00am October 21, 2023 12:30pm Start: 11-28-2021 take 2 capsules by m outh at bedtime [place] 7-Tky-Hqk-Fish Oil (Fish Oil) 1,200 (144-216) mg Capsule Active 2 CAP PO Bedtime November 27, 2021 11:00pm Start: 11-28-2021 take 2 capsules by m outh at bedtime [place] 5-Ere-Zxg-Fish Oil (Fish Oil) 1,200 (144-216) mg Capsule Active 2 CAP PO Bedtime November 28, 2021 12:00am pantoprazole 40 mg delayed release oral tablet (20 sources) Proton Pump Inhibitor Start: 12-28-2020 End: 08-16-2024 take 1 tablet by mouth twice daily Pantoprazole 40 mg tablet,delayed release (DR/EC) Discontinued 40 MG PO Twice daily November 28, 2021 12:00am August 16, 2024 12:29pm pantoprazole (Pr otonix) 40 MG EC tablet [...] organisms] Onset: 4 05-11-2024 Episodic Anxiety disorders (13 sources) Generalized anxiety disorder; Translations: [Generalized anxiety disorder] 10-04-2024 Chronic Chronic kidney disease (20 sources) Chronic kidney disease stage 3A ; Translations: [Stage 3a chronic kidney disease] Onset: 4 10-21-2023 Chronic Chronic obstructive pulmonary disease and bronchiectasis (20 sources) Mucopurulent chronic bronchitis; Translations: [Mucopurulent chronic bronchitis] Onset: 4 Chronic Conditions associated with dizziness or vertigo (11 sources) Dizziness and giddiness; Translations: [Dizziness and giddiness] Onset: 4 07-20-2024 Episodic Deficiency and other anemia (14 sources) Anemia, unspecified; Translations: [Anemia, unspecified] Onset: 3 Episodic Deficiency and other anemia (1 source) Iron deficiency anemia, unspecified; Translations: [IRON DEFICIENCY ANEMIA UNSPECIFIED] Onset: 3 Episodic Deficiency and other anemia (1 source) Dietary folate deficiency anemia Episodic Deficiency and other anemia (20 sources) Pernicious anemia; Translations: [Vitamin B12 deficiency anemia due to intrinsic factor deficiency] Onset: 4 10-21-2023 Episodic Deficiency and other anemia (19 sources) Vitamin B12 deficiency anemia due to [...] INFECTION UNSPEC] Onset: 3 Episodic Menopausal disorders (18 sources) Atrophic vaginitis; Translations: [Postmenopausal atrophic vaginitis] Onset: 3 01-26-2023 Chronic Mood disorders (20 sources) Mild recurrent major depression; Translations: [Major depressive disorder, recurrent, mild] Onset: 9 Chronic Multiple sclerosis (20 sources) Multiple sclerosis; Translations: [Multiple sclerosis] Onset: 3 Chronic Nausea and vomiting (20 sources) Nausea and vomiting; Translations: [Nausea with vomiting, unspecified] Onset: 4 Resolved: 2 Episodic Nonmalignant breast conditions (17 sources) Fibrocystic disease of breast; Translations: [Diffuse cystic mastopathy of unspecified breast] Onset: 3 01-26-2023 Chronic Nutritional deficiencies (1 source) Moderate protein-calorie malnutrition; Translations: [MODERATE PROTEIN-CALORIE MLNUTRIT] Onset: 3 Chronic Nutritional deficiencies (1 source) Deficiency of other specified B group vitamins Episodic Osteoarthritis (2 sources) Osteoarthritis; Translations: [Polyosteoarthritis, unspecified] Chronic Other aftercare (1 source) Other adjunct faculty for medical terminology (current) drug therapy; Translations: [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 CURRENT DRUG THERAPY] Onset: 3 Episodic Other aftercare (2 sources) Long-term current use of drug therapy; Translations: [Other adjunct faculty for medical terminology (current) drug therapy] Episodic Other and unspecified [...] limb] 03-09-2024 Episodic Other connective tissue disease (20 sources) Bilateral trochanteric bursitis; Translations: [Trochanteric bursitis, [...] syndrome; Translations: [Irritable bowel syndrome without diarrhea] 10-18-2024 Chronic Other gastrointestinal disorders (5 sources) Irritable bowel syndrome without diarrhea; Translations: [Irritable bowel syndrome] Chronic Other gastrointestinal disorders (2 sources) Irritable bowel syndrome with diarrhea; Translations: [Irritable bowel syndrome with diarrhea] Chronic Other gastrointestinal disorders (20 sources) Diarrhea; Translations: [Diarrhea, unspecified] Onset: 7 08-16-2024 Episodic Other gastrointestinal disorders (8 sources) Diarrhea, unspecified; Translations: [Diarrhea] Onset: 2 Resolved: 2 Episodic Other injuries and conditions due to external causes (2 sources) History of fall; Translations: [History of falling] Episodic Other lower respiratory disease (1 source) Acute respiratory distress; Translations: [ACUTE RESPIRATORY DISTRESS] Onset: 3 Episodic Other lower respiratory disease (1 source) Other nonspecific abnormal finding of lung field Episodic Other nervous system disorders (19 sources) Brachial plexus disorder; Translations: [Brachial plexus disorders] Onset: 3 01-26-2023 Chronic Other nervous system disorders (20 sources) Disorder of nerve root and/or plexus; Translations: [Other nerve root and plexus disorders] Onset: 4 01-21-2024 Chronic Other non-traumatic joint disorders (2 sources) Pain in right hip joint; Translations: [Pain in right hip] Episodic Other nutritional; endocrine; and metabolic disorders (1 source) Hypocalcemia; Translations: [Hypocalcemia] 09-13-2024 Chronic Other nutritional; endocrine; and metabolic disorders (3 sources) Hypocalcemia; Translations: [Hypocalcemia] 09-13-2024 Chronic Other nutritional; endocrine; and metabolic disorders (20 [...] conditions (not mental disorders or infectious disease) (20 sources) Other specified abnormal findings of blood [...] or radiculopathy, lumbar region] Onset: 2 Chronic Sprains and strains (10 sources) Lumbar sprain; Translations: [Sprain of other parts of lumbar spine and pelvis, initial encounter] Onset: 9 09-13-2024 Episodic Substance-related disorders (20 sources) Tobacco user; Translations: [...] 02-04-2023 Deficiency and other anemia (20 sources) Anemia; [...] unspecified] Onset: 03-08-2015 Episodic Other acquired deformities (17 sources) Acquired spondylolisthesis; Translations: [Spondylolisthesis, site unspecified] Onset: 01-26-2023 01-26-2023 Episodic Other connective tissue disease (2 sources) Pain in left lower limb; Translations: [Pain in left leg] Onset: 03-31-2016 Episodic Other connective tissue disease (17 sources) Muscle pain; Translations: [Myalgia, unspecified site] Onset: 01-26-2023 01-26-2023 Episodic Other connective tissue disease (14 sources) Pain in left foot; Translations: [Pain in left foot] Onset: 03-30-2024 03-30-2024 Episodic Other gastrointestinal disorders (2 sources) 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; Translations: [Irritable bowel syndrome with constipation] Resolved: 11-30-2020 Chronic Other lower respiratory disease (2 sources) Dyspnea; Translations: [Dyspnea, unspecified] Onset: 03-08-2015 Episodic Other nervous system disorders (17 sources) Skin sensation disturbance; Translations: [Unspecified disturbances [...] Spondylosis; intervertebral disc disorders; other back problems (19 sources) Low back pain; Translations: [Low back pain, unspecified] Onset: 01-26-2023 01-26-2023 Episodic Superficial injury; contusion (20 sources) Contusion [...] Test Name Value Interpretation Reference Range Facility Influenza virus B Ag [Presen ce] in Upper respiratory specimen by Rapid immunoassayon 11-15-2024 FLUBV Ag IA.rapid Ql (Nph) Influenza virus B Ag [Presence] in Upper respiratory specimen by Rapid immunoassay [place] No Panel Informationon 11-15 Influenza Type A (Rapid) Negative [place] POC SARS CoV-2 Antigen Negative [place] Basophils Auto (Bld) [#/Vol] on 09-30-2024 Basophils (Bld) [#/Vol] Automated basophil count 0.0-0.1 [place] Basophils/100 WBC Auto (Bld) on 09-30-2024 Basophils/100 WBC (Bld) Automated basophil % 0.2-2.0 [place] Eosinophils/100 WBC Auto (Bl d)on 09-30-2024 Eosinophils/100 WBC (Bld) Automated eosinophil % 0.9-7.0 [place] Erythrocyte distribution wid th Auto (RBC) [Ratio]on 09-30-2024 Erythrocyte distribution width (RBC) [Ratio] Erythrocyte distribution width [Ratio] by Automated count 11.0-15.0 [place] Estimated glomerular filtrat ion rate (GFR) non- Americanon 09-30-2024 GFR/1.73 sq M.predicted among non-blacks MDRD (S/P/Bld) [Vol rate/Area] Estimated glomerular filtration rate (GFR) non- Low >=60 mL/min/1.73m 2 [facility] Globulin Calc (S) [Mass/Vol] on 09-30-2024 Globulin (S) [Mass/Vol] Serum globulin measurement by calculation (mass/volume) [facility] Hematocrit Auto (Bld) [Volum e fraction]on 09-30-2024 Hematocrit (Bld) [Volume fraction] Hematocrit [Volume Fraction] of Blood by Automated count 36.0-48.0 [facility] Hemoglobin [Mass/volume] in Bloodon 09-30-2024 Hemoglobin (Bld) [Mass/Vol] Hemoglobin [Mass/volume] in Blood 12.0-16.0 [place] INR in Platelet poor plasma by Coagulation assayon 09-30-2024 INR Coag (PPP) [Relative time] INR in Platelet poor plasma by Coagulation assay [facility] Comment on above: DESIRED INR:2.0-3.0 CONDITIONS NOT LISTED BELOW2.5-3.5 FOR PROSTHETIC HEART VALVE REPLACEMENT2.5-3.5 RECURRENT THROMBOSIS Laboratory - Chemistry and C hemistry - challengeon 09-30-2024 Bilirubin Ql (U) Negative NEGATIVE [facility] Glucose (U) [Mass/Vol] Negative NEGATIVE [place] Ketones Ql (U) Negative NEGATIVE [place] pH (U) 7.0 [pH] 5.0-9.0 [place] Specific gravity (U) [Rel density] 1.010 1.005-1.025 [place] Urobilinogen Qn (U) 0.2 {Avery'U}/dL 0.2-1.0 [place] Albumin [Mass/Vol] 3.7 g/dL 3.4-5.0 [facility] ALP [Catalytic activity/Vol] 53 U/L 46-116 [place] ALT [Catalytic activity/Vol] 19 U/L 14-59 [place] AST [Catalytic activity/Vol] 22 U/L 15-37 [place] Bilirubin [Mass/Vol] 0.5 mg/dL 0.2-1.[address] [facility] Calcium [Mass/Vol] 9.2 mg/dL 8.5-10.1 [facility] Chloride [Moles/Vol] 102 mmol/L 98-[address] [facility] CO2 [Moles/Vol] 28.2 mmol/L 21.0-32.0 [facility] Creatinine [Mass/Vol] 1.29 mg/dL High 0.55-1.02 [place] GFR/1.73 sq M.predicted MDRD (S/P/Bld) [Vol rate/Area] 48 mL/min/{1.73_m2} Low >=60 mL/min/1.73m 2 [place] Glucose [Mass/Vol] 110 mg/dL High 74-106 [facility] Lactate [Moles/Vol] 1.1 mmol/L 0.4-2.0 [facility] Potassium [Moles/Vol] 3.7 mmol/L 3.5-5.1 [place] Protein [Mass/Vol] 7.0 g/dL 6.4-8.2 [facility] Sodium [Moles/Vol] 138 mmol/L 136-145 [facility] TSH Qn 3.306 m[IU]/L 0.358-3.740 [place] Urea nitrogen [Mass/Vol] 18.0 mg/dL 7.0-18.0 [place] Urea nitrogen/Creatinine [Mass ratio] 14.0 mg/mg [place] Laboratory - Hematology and Cell countson 09-30-2024 Immature granulocytes/100 WBC (Bld) 0.4 % 0.0-0.5 [place] Laboratory - Specimen inform ationon 09-30-2024 Appearance (U) CLEAR CLEAR [place] Color (U) LT. YELLOW YELLOW [place] Laboratory - Urinalysison Leukocyte esterase Test strip Ql (U) Negative NEGATIVE [place] Mucus Ql (Urine sed) NONE SEEN NONE SEEN [facility] Nitrite Ql (U) Negative NEGATIVE [place] Protein Ql (U) Negative NEG/TRACE [place] Leukocytes [#/volume] correc bill for nucleated erythrocytes in Blood by Automated counon 09-30-2024 WBC corrected for nucl RBC Auto (Bld) [#/Vol] Leukocytes [#/volume] corrected for nucleated erythrocytes in Blood by Automated coun 4.0-11.0 [place] Lymphocytes Auto (Bld) [#/Vo l]on 09-30-2024 Lymphocytes (Bld) [#/Vol] Lymphocytes [#/volume] in Blood by Automated count Low 1.2-3.8 [place] Lymphocytes/100 WBC Auto (Bl d)on 09-30-2024 Lymphocytes/100 WBC (Bld) Lymphocytes/100 leukocytes in Blood by Automated count 20.5-60.0 [place] MCH Auto (RBC) [Entitic mass ]on 09-30-2024 MCH (RBC) [Entitic mass] MCH [Entitic mass] by Automated count 26.7-34.0 [place] MCHC Auto (RBC) [Mass/Vol]on 09-30-2024 MCHC (RBC) [Mass/Vol] MCHC [Mass/volume] by Automated count 29.9-35.2 [place] MCV Auto (RBC) [Entitic vol] on 09-30-2024 MCV (RBC) [Entitic vol] MCV [Entitic volume] by Automated count 81.0-99.0 [place] Monocytes Auto (Bld) [#/Vol] on 09-30-2024 Monocytes (Bld) [#/Vol] Automated blood monocyte count 0.3-0.8 [place] Monocytes/100 WBC Auto (Bld) on 09-30-2024 Monocytes/100 WBC (Bld) Automated monocyte % 1.7-12.0 [place] Neutrophils Auto (Bld) [#/Vo l]on 09-30-2024 Neutrophils (Bld) [#/Vol] Neutrophils [#/volume] in Blood by Automated count 1.4-6.5 [place] Neutrophils/100 WBC Auto (Bl d)on 09-30-2024 Neutrophils/100 WBC (Bld) Automated neutrophil % 43.0-75.0 [place] No Panel Informationon 09-30 Urine Bacteria TRACE #/HPF Abnormal NONE SEEN [place] Urine Culture Reflexed NO [place] Urine Occult Blood Negative NEGATIVE [facility] Urine Other Casts NONE SEEN #/LPF NONE SEEN [facility] Urine Other Crystals None Seen #/HPF None Seen [place] Urine RBC 0-2 #/HPF 0-2 [place] Urine Squamous Epithelial Cells FEW #/LPF Abnormal NONE/RARE [place] Urine WBC 0-2 #/HPF Abnormal NONE SEEN [place] Eosinophils # (Auto) 0.1 10 3/uL 0.0-0.7 [facility] Immature Granulocyte # (Auto) 0.02 10 3/uL 0.00-0.03 [place] Troponin I High Sensitivity 21.8 pg/mL 4.0-51.3 [place] Comment on above: CUT-OFF POINTS HAVE BEEN [...] IN CONJUNCTIONWITH OTHER DIAGNOSTIC AND CLINICAL INFORMATION. Platelet mean volume Auto (B ld) [Entitic vol]on 09-30-2024 Platelet mean volume (Bld) [Entitic vol] Platelet mean volume [Entitic volume] in Blood by Automated count 9.5-13.5 [place] Platelets Auto (Bld) [#/Vol] on 09-30-2024 Platelets (Bld) [#/Vol] Platelets [#/volume] in Blood by Automated count 150-450 [place] Prothrombin time (PT)on 09-08 PT Coag (PPP) [Time] Prothrombin time (PT) 9.0- 11.6 [place] RBC Auto (Bld) [#/Vol]on RBC (Bld) [#/Vol] Erythrocytes [#/volume] in Blood by Automated count Low 4.20-5.40 [place] Serum or plasma albumin/glob ulin mass ratioon 09-30-2024 Albumin/Globulin [Mass ratio] Serum or plasma albumin/globulin mass ratio [place] Serum or plasma anion gap de terminationon 09-30-2024 Anion gap [Moles/Vol] Serum or plasma anion gap determination [place] Basophils Auto (Bld) [#/Vol] on 09-23-2024 Basophils (Bld) [#/Vol] Automated basophil count 0.0-0.1 [place] Basophils/100 WBC Auto (Bld) on 09-23-2024 Basophils/100 WBC (Bld) Automated basophil % 0.2-2.0 [place] Eosinophils/100 WBC Auto (Bl d)on 09-23-2024 Eosinophils/100 WBC (Bld) Automated eosinophil % 0.9-7.0 [place] Erythrocyte distribution wid th Auto (RBC) [Ratio]on 09-23-2024 Erythrocyte distribution width (RBC) [Ratio] Erythrocyte distribution width [Ratio] by Automated count 11.0-15.0 [place] Estimated glomerular filtrat ion rate (GFR) non- Americanon 09-23-2024 GFR/1.73 sq M.predicted among non-blacks MDRD (S/P/Bld) [Vol rate/Area] Estimated glomerular filtration rate (GFR) non- Low >=60 mL/min/1.73m 2 [place] Hematocrit Auto (Bld) [Volum e fraction]on 09-23-2024 Hematocrit (Bld) [Volume fraction] Hematocrit [Volume Fraction] of Blood by Automated count 36.0-48.0 [place] Hemoglobin [Mass/volume] in Bloodon 09-23-2024 Hemoglobin (Bld) [Mass/Vol] Hemoglobin [Mass/volume] in Blood Low 12.0-16.0 [place] Iron binding capacity [Mass/ volume] in Serum or Plasmaon 09-23-2024 Iron binding capacity [Mass/Vol] Iron binding capacity [Mass/volume] in Serum or Plasma 250.0-450.0 [place] Iron saturation [Mass Fracti on] in Serum or Plasmaon 09-23-2024 Iron saturation [Mass fraction] Iron saturation [Mass Fraction] in Serum or Plasma [place] Laboratory - Chemistry and C hemistry - challengeon 09-23-2024 Calcium [Mass/Vol] 8.9 mg/dL 8.5-10.1 [facility] Chloride [Moles/Vol] 104 mmol/L 98-[address] [facility] CO2 [Moles/Vol] 28.5 mmol/L 21.0-32.0 [facility] Cobalamin (Vitamin B12) [Mass/Vol] 815 pg/mL [id number] [place] Comment on above: Performed at: - [facility] [address] [id number] Director: Nicanor Omalley PhD, Phone: [phone] Creatinine [Mass/Vol] 1.15 mg/dL High 0.55-1.02 [place] Ferritin [Mass/Vol] 43.0 ng/mL 8.0-252.0 [facility] GFR/1.73 sq M.predicted MDRD (S/P/Bld) [Vol rate/Area] 55 mL/min/{1.73_m2} Low >=60 mL/min/1.73m 2 [place] Glucose [Mass/Vol] 86 mg/dL 74-106 [facility] Iron [Mass/Vol] 89.0 ug/dL 50.0-170.0 [place] Potassium [Moles/Vol] 3.9 mmol/L 3.5-5.1 [place] Sodium [Moles/Vol] 144 mmol/L 136-145 [facility] TSH Qn 1.732 m[IU]/L 0.358-3.740 [place] Urea nitrogen [Mass/Vol] 16.0 mg/dL 7.0-18.0 [place] Urea nitrogen/Creatinine [Mass ratio] 13.9 mg/mg [place] Laboratory - Hematology and Cell countson 09-23-2024 ESR (Bld) [Velocity] 9 mm/h <=[address] [facility] Immature granulocytes/100 WBC (Bld) 0.9 % High 0.0-0.5 [place] Leukocytes [#/volume] correc bill for nucleated erythrocytes in Blood by Automated counon 09-23-2024 WBC corrected for nucl RBC Auto (Bld) [#/Vol] Leukocytes [#/volume] corrected for nucleated erythrocytes in Blood by Automated coun 4.0-11.0 [place] Lymphocytes Auto (Bld) [#/Vo l]on 09-23-2024 Lymphocytes (Bld) [#/Vol] Lymphocytes [#/volume] in Blood by Automated count Low 1.2-3.8 [place] Lymphocytes/100 WBC Auto (Bl d)on 09-23-2024 Lymphocytes/100 WBC (Bld) Lymphocytes/100 leukocytes in Blood by Automated count 20.5-60.0 [place] MCH Auto (RBC) [Entitic mass ]on 09-23-2024 MCH (RBC) [Entitic mass] MCH [Entitic mass] by Automated count 26.7-34.0 [place] MCHC Auto (RBC) [Mass/Vol]on 09-23-2024 MCHC (RBC) [Mass/Vol] MCHC [Mass/volume] by Automated count 29.9-35.2 [place] MCV Auto (RBC) [Entitic vol] on 09-23-2024 MCV (RBC) [Entitic vol] MCV [Entitic volume] by Automated count 81.0-99.0 [place] Monocytes Auto (Bld) [#/Vol] on 09-23-2024 Monocytes (Bld) [#/Vol] Automated blood monocyte count 0.3-0.8 [place] Monocytes/100 WBC Auto (Bld) on 09-23-2024 Monocytes/100 WBC (Bld) Automated monocyte % 1.7-12.0 [place] Neutrophils Auto (Bld) [#/Vo l]on 09-23-2024 Neutrophils (Bld) [#/Vol] Neutrophils [#/volume] in Blood by Automated count 1.4-6.5 [place] Neutrophils/100 WBC Auto (Bl d)on 09-23-2024 Neutrophils/100 WBC (Bld) Automated neutrophil % 43.0-75.0 [place] No Panel Informationon 09-23 C-Reactive Protein, Quantitative <0.50 mg/dL <=0.50 [place] Eosinophils # (Auto) 0.2 10 3/uL 0.0-0.7 [facility] Folate 22.90 ng/mL 8.60-58.90 [place] Immature Granulocyte # (Auto) 0.04 10 3/uL High 0.00-0.03 [place] Platelet mean volume Auto (B ld) [Entitic vol]on 09-23-2024 Platelet mean volume (Bld) [Entitic vol] Platelet mean volume [Entitic volume] in Blood by Automated count 9.5-13.5 [place] Platelets Auto (Bld) [#/Vol] on 09-23-2024 Platelets (Bld) [#/Vol] Platelets [#/volume] in Blood by Automated count 150-450 [place] RBC Auto (Bld) [#/Vol]on RBC (Bld) [#/Vol] Erythrocytes [#/volume] in Blood by Automated count Low 4.20-5.40 [place] Reticulocytes/100 RBC Auto ( Bld)on 09-23-2024 Reticulocytes/100 RBC (Bld) Reticulocyte % auto 0.60-3.10 [place] Serum or plasma anion gap de terminationon 09-23-2024 Anion gap [Moles/Vol] Serum or plasma anion gap determination [place] Basophils Auto (Bld) [#/Vol] on 09-06-2024 Basophils (Bld) [#/Vol] Automated basophil count 0.0-0.1 [place] Basophils/100 WBC Auto (Bld) on 09-06-2024 Basophils/100 WBC (Bld) Automated basophil % 0.2-2.0 [place] Eosinophils/100 WBC Auto (Bl d)on 09-06-2024 Eosinophils/100 WBC (Bld) Automated eosinophil % 0.9-7.0 [place] Erythrocyte distribution wid th Auto (RBC) [Ratio]on 09-06-2024 Erythrocyte distribution width (RBC) [Ratio] Erythrocyte distribution width [Ratio] by Automated count 11.0-15.0 [place] Estimated glomerular filtrat ion rate (GFR) non- Americanon 09-06-2024 GFR/1.73 sq M.predicted among non-blacks MDRD (S/P/Bld) [Vol rate/Area] Estimated glomerular filtration rate (GFR) non- Low >=60 mL/min/1.73m 2 [place] Hematocrit Auto (Bld) [Volum e fraction]on 09-06-2024 Hematocrit (Bld) [Volume fraction] Hematocrit [Volume Fraction] of Blood by Automated count Low 36.0-48.0 [place] Hemoglobin [Mass/volume] in Bloodon 09-06-2024 Hemoglobin (Bld) [Mass/Vol] Hemoglobin [Mass/volume] in Blood Low 12.0-16.0 [place] Laboratory - Chemistry and C hemistry - challengeon 09-06-2024 Calcium [Mass/Vol] 8.1 mg/dL Low 8.5-10.1 [facility] Chloride [Moles/Vol] 111 mmol/L High 98-[address] [facility] CO2 [Moles/Vol] 27.9 mmol/L 21.0-32.0 [facility] Creatinine [Mass/Vol] 0.97 mg/dL 0.55-1.02 [place] GFR/1.73 sq M.predicted MDRD (S/P/Bld) [Vol rate/Area] mL/min/{1.73_m2} >=60 mL/min/1.73m 2 [place] Glucose [Mass/Vol] 95 mg/dL 74-106 [facility] Potassium [Moles/Vol] 3.2 mmol/L Low 3.5-5.1 [place] Sodium [Moles/Vol] 146 mmol/L High 136-145 [facility] Urea nitrogen [Mass/Vol] 11.0 mg/dL 7.0-18.0 [place] Urea nitrogen/Creatinine [Mass ratio] 11.3 mg/mg [place] [facility] - Hematology and Cell countson 09-06-2024 Immature granulocytes/100 WBC (Bld) 0.6 % High 0.0-0.5 [place] Leukocytes [#/volume] correc bill for nucleated erythrocytes in Blood by Automated counon 09-06-2024 WBC corrected for nucl RBC Auto (Bld) [#/Vol] Leukocytes [#/volume] corrected for nucleated erythrocytes in Blood by Automated coun Low 4.0-11.0 [place] Lymphocytes Auto (Bld) [#/Vo l]on 09-06-2024 Lymphocytes (Bld) [#/Vol] Lymphocytes [#/volume] in Blood by Automated count 1.2-3.8 [place] Lymphocytes/100 WBC Auto (Bl d)on 09-06-2024 Lymphocytes/100 WBC (Bld) Lymphocytes/100 leukocytes in Blood by Automated count 20.5-60.0 [place] MCH Auto (RBC) [Entitic mass ]on 09-06-2024 MCH (RBC) [Entitic mass] MCH [Entitic mass] by Automated count 26.7-34.0 [place] MCHC Auto (RBC) [Mass/Vol]on 09-06-2024 MCHC (RBC) [Mass/Vol] MCHC [Mass/volume] by Automated count 29.9-35.2 [place] MCV Auto (RBC) [Entitic vol] on 09-06-2024 MCV (RBC) [Entitic vol] MCV [Entitic volume] by Automated count 81.0-99.0 [place] Monocytes Auto (Bld) [#/Vol] on 09-06-2024 Monocytes (Bld) [#/Vol] Automated blood monocyte count Low 0.3-0.8 [place] Monocytes/100 WBC Auto (Bld) on 09-06-2024 Monocytes/100 WBC (Bld) Automated monocyte % 1.7-12.0 [place] Neutrophils Auto (Bld) [#/Vo l]on 09-06-2024 Neutrophils (Bld) [#/Vol] Neutrophils [#/volume] in Blood by Automated count 1.4-6.5 [place] Neutrophils/100 WBC Auto (Bl d)on 09-06-2024 Neutrophils/100 WBC (Bld) Automated neutrophil % 43.0-75.0 [place] No Panel Informationon 09-06 Eosinophils # (Auto) 0.1 10 3/uL 0.0-0.7 [facility] Immature Granulocyte # (Auto) 0.02 10 3/uL 0.00-0.03 [place] Platelet mean volume Auto (B ld) [Entitic vol]on 09-06-2024 Platelet mean volume (Bld) [Entitic vol] Platelet mean volume [Entitic volume] in Blood by Automated count 9.5-13.5 [place] Platelets Auto (Bld) [#/Vol] on 09-06-2024 Platelets (Bld) [#/Vol] Platelets [#/volume] in Blood by Automated count 150-450 [place] RBC Auto (Bld) [#/Vol]on RBC (Bld) [#/Vol] Erythrocytes [#/volume] in Blood by Automated count Low 4.20-5.40 [place] Serum or plasma anion gap de terminationon 09-06-2024 Anion gap [Moles/Vol] Serum or plasma anion gap determination [place] Basophils Auto (Bld) [#/Vol] on 09-05-2024 Basophils (Bld) [#/Vol] Automated basophil count 0.0-0.1 [place] Basophils/100 WBC Auto (Bld) on 09-05-2024 Basophils/100 WBC (Bld) Automated basophil % 0.2-2.0 [place] Eosinophils/100 WBC Auto (Bl d)on 09-05-2024 Eosinophils/100 WBC (Bld) Automated eosinophil % 0.9-7.0 [place] Erythrocyte distribution wid th Auto (RBC) [Ratio]on 09-05-2024 Erythrocyte distribution width (RBC) [Ratio] Erythrocyte distribution width [Ratio] by Automated count 11.0-15.0 [place] Estimated glomerular filtrat ion rate (GFR) non- Americanon 09-05-2024 GFR/1.73 sq M.predicted among non-blacks MDRD (S/P/Bld) [Vol rate/Area] Estimated glomerular filtration rate (GFR) non- Low >=60 mL/min/1.73m 2 [place] Globulin Calc (S) [Mass/Vol] on 09-05-2024 Globulin (S) [Mass/Vol] Serum globulin measurement by calculation (mass/volume) [place] Hematocrit Auto (Bld) [Volum e fraction]on 09-05-2024 Hematocrit (Bld) [Volume fraction] Hematocrit [Volume Fraction] of Blood by Automated count Low 36.0-48.0 [place] Hemoglobin [Mass/volume] in Bloodon 09-05-2024 Hemoglobin (Bld) [Mass/Vol] Hemoglobin [Mass/volume] in Blood Low 12.0-16.0 [place] Laboratory - Chemistry and C hemistry - challengeon 09-05-2024 Lactate [Moles/Vol] 0.6 mmol/L 0.4-2.0 [facility] Bilirubin Ql (U) Negative NEGATIVE [facility] Glucose (U) [Mass/Vol] Negative NEGATIVE [place] Ketones Ql (U) Negative NEGATIVE [place] pH (U) 7.5 [pH] 5.0-9.0 [place] Specific gravity (U) [Rel density] 1.015 1.005-1.025 [place] Urobilinogen Qn (U) 2.0 {Avery'U}/dL Abnormal 0.2-1.0 [place] Albumin [Mass/Vol] 3.5 g/dL 3.4-5.0 [facility] ALP [Catalytic activity/Vol] 49 U/L 46-116 [place] ALT [Catalytic activity/Vol] 14 U/L 14-59 [place] AST [Catalytic activity/Vol] 17 U/L 15-37 [place] Bilirubin [Mass/Vol] 0.4 mg/dL 0.2-1.[address] [facility] Calcium [Mass/Vol] 8.7 mg/dL 8.5-10.1 [facility] Chloride [Moles/Vol] 108 mmol/L High 98-[address] [facility] CO2 [Moles/Vol] 28.7 mmol/L 21.0-32.0 [facility] Creatinine [Mass/Vol] 1.03 mg/dL High 0.55-1.02 [place] GFR/1.73 sq M.predicted MDRD (S/P/Bld) [Vol rate/Area] mL/min/{1.73_m2} >=60 mL/min/1.73m 2 [place] Glucose [Mass/Vol] 101 mg/dL 74-106 [facility] Potassium [Moles/Vol] 3.3 mmol/L Low 3.5-5.1 [place] Protein [Mass/Vol] 6.6 g/dL 6.4-8.2 [facility] Sodium [Moles/Vol] 143 mmol/L 136-145 [facility] Urea nitrogen [Mass/Vol] 12.0 mg/dL 7.0-18.0 [place] Urea nitrogen/Creatinine [Mass ratio] 11.7 mg/mg [place] [facility] - Hematology and Cell countson 09-05-2024 ESR (Bld) [Velocity] 6 mm/h <=[address] [facility] Immature granulocytes/100 WBC (Bld) 0.5 % 0.0-0.5 [place] [facility] - Microbiology an d Antimicrobial susceptibilityon 09-05-2024 S. pyogenes Ag Ql (Unsp spec) Negative [place] SARS-CoV-2 (COVID-19) RNA MARIO+probe Ql (Unsp spec) Negative NEGATIVE [place] Comment on above: This test has not [...] inform ationon 09-05-2024 Appearance (U) CLEAR CLEAR [place] Color (U) YELLOW YELLOW [place] [facility] - Urinalysison Leukocyte esterase Test strip Ql (U) Negative NEGATIVE [place] Nitrite Ql (U) Negative NEGATIVE [place] Protein Ql (U) Negative NEG/TRACE [place] Leukocytes [#/volume] correc bill for nucleated erythrocytes in Blood by Automated counon 09-05-2024 WBC corrected for nucl RBC Auto (Bld) [#/Vol] Leukocytes [#/volume] corrected for nucleated erythrocytes in Blood by Automated coun 4.0-11.0 [place] Lymphocytes Auto (Bld) [#/Vo l]on 09-05-2024 Lymphocytes (Bld) [#/Vol] Lymphocytes [#/volume] in Blood by Automated count 1.2-3.8 [place] Lymphocytes/100 WBC Auto (Bl d)on 09-05-2024 Lymphocytes/100 WBC (Bld) Lymphocytes/100 leukocytes in Blood by Automated count 20.5-60.0 [place] MCH Auto (RBC) [Entitic mass ]on 09-05-2024 MCH (RBC) [Entitic mass] MCH [Entitic mass] by Automated count 26.7-34.0 [place] MCHC Auto (RBC) [Mass/Vol]on 09-05-2024 MCHC (RBC) [Mass/Vol] MCHC [Mass/volume] by Automated count 29.9-35.2 [place] MCV Auto (RBC) [Entitic vol] on 09-05-2024 MCV (RBC) [Entitic vol] MCV [Entitic volume] by Automated count 81.0-99.0 [place] Monocytes Auto (Bld) [#/Vol] on 09-05-2024 Monocytes (Bld) [#/Vol] Automated blood monocyte count 0.3-0.8 [place] Monocytes/100 WBC Auto (Bld) on 09-05-2024 Monocytes/100 WBC (Bld) Automated monocyte % 1.7-12.0 [place] Neutrophils Auto (Bld) [#/Vo l]on 09-05-2024 Neutrophils (Bld) [#/Vol] Neutrophils [#/volume] in Blood by Automated count 1.4-6.5 [place] Neutrophils/100 WBC Auto (Bl d)on 09-05-2024 Neutrophils/100 WBC (Bld) Automated neutrophil % 43.0-75.0 [place] No Panel Informationon 09-05 C-Reactive Protein, Quantitative <0.50 mg/dL <=0.50 [place] Troponin I High Sensitivity 34.8 pg/mL 4.0-51.3 [place] Comment on above: CUT-OFF POINTS HAVE BEEN [...] AND CLINICAL INFORMATION. Urine Microscopic Review NO [place] Urine Occult Blood Negative NEGATIVE [facility] Eosinophils # (Auto) 0.1 10 3/uL 0.0-0.7 [facility] Immature Granulocyte # (Auto) 0.03 10 3/uL 0.00-0.03 [place] Bedside Influenza Type A Antigen Negative [place] Comment on above: Negative for Flu A p rotein antigen. Infection due to Flu Acannot be ruled out. Flu A antigen in the sample may bebelow the detection limit of the test. Bedside Influenza Type B Antigen Negative [place] Comment on above: Negative for Flu B p rotein antigen. Infection due to Flu Bcannot be ruled out. Flu B antigen in the sample may bebelow the detection limit of the test. Platelet mean volume Auto (B ld) [Entitic vol]on 09-05-2024 Platelet mean volume (Bld) [Entitic vol] Platelet mean volume [Entitic volume] in Blood by Automated count 9.5-13.5 [place] Platelets Auto (Bld) [#/Vol] on 09-05-2024 Platelets (Bld) [#/Vol] Platelets [#/volume] in Blood by Automated count 150-450 [place] RBC Auto (Bld) [#/Vol]on RBC (Bld) [#/Vol] Erythrocytes [#/volume] in Blood by Automated count Low 4.20-5.40 [place] Serum or plasma albumin/glob ulin mass ratioon 09-05-2024 Albumin/Globulin [Mass ratio] Serum or plasma albumin/globulin mass ratio [place] Serum or plasma anion gap de terminationon 09-05-2024 Anion gap [Moles/Vol] Serum or plasma anion gap determination [place] Strep A Culture Onlyon 09-05 Strep A Culture Only No Group A Beta Streptococcus Isolated 2 Days PERFORMED BY: [place] [address] PATHOLOGIST RECORDS MANAGEMENT CLERK LESLEY Zepeda [facility] Comment on above: Performed By: #### C USTA #### [address] Streptococcus pyogenes cultu reOrdered By: Anita Garcia on 09-05-2024 S. pyogenes Org specific cx Ql (Unsp spec) Streptococcus pyogenes culture [place] S. pyogenes Org specific cx Ql (Unsp spec) Streptococcus pyogenes culture [place] MM screening mammo BI w/CADo n 06-23-2024 MM screening mammo BI w/CAD [facility] [place] [address] [place] [address] Mammography Report Signed Patient: Gina Pierre MR#: [id number] : 1940 Acct:[id number] Age/Sex: 83 / F ADM Date: 06/23/24 Loc: [place] Room: Type: [facility] Attending Dr: Aamir Dao DO Copies to: [...] [id number] Signed By: 06/23/24 1311 Normal [facility] Basophils Auto (Bld) [#/Vol] on 05-25-2024 Basophils (Bld) [#/Vol] 0.0 10 3/uL 0.0-0.1 [place] Basophils (Bld) [#/Vol] Automated basophil count 0.0-0.1 [place] Basophils/100 WBC Auto (Bld) on 05-25-2024 Basophils/100 WBC (Bld) 0.8 % 0.2-2.0 [place] Basophils/100 WBC (Bld) Automated basophil % 0.2-2.0 [place] Eosinophils/100 WBC Auto (Bl d)on 05-25-2024 Eosinophils/100 WBC (Bld) 1.9 % 0.9-7.0 [place] Eosinophils/100 WBC (Bld) Automated eosinophil % 0.9-7.0 [place] Erythrocyte distribution wid th Auto (RBC) [Ratio]on 05-25-2024 Erythrocyte distribution width (RBC) [Ratio] 13.7 % 11.0-15.0 [place] Erythrocyte distribution width (RBC) [Ratio] Erythrocyte distribution width [Ratio] by Automated count 11.0-15.0 [place] Estimated glomerular filtrat ion rate (GFR) non- Americanon 05-25-2024 GFR/1.73 sq M.predicted among non-blacks MDRD (S/P/Bld) [Vol rate/Area] 45 mL/min/{1.73_m2} Low >=60 [place] GFR/1.73 sq M.predicted among non-blacks MDRD (S/P/Bld) [Vol rate/Area] Estimated glomerular filtration rate (GFR) non- Low >=60 [place] Globulin Calc (S) [Mass/Vol] on 05-25-2024 Globulin (S) [Mass/Vol] 2.8 g/dL [place] Globulin (S) [Mass/Vol] Serum globulin measurement by calculation (mass/volume) [place] Hematocrit Auto (Bld) [Volum e fraction]on 05-25-2024 Hematocrit (Bld) [Volume fraction] 36.1 % 36.0-48.0 [place] Hematocrit (Bld) [Volume fraction] Hematocrit [Volume Fraction] of Blood by Automated count 36.0-48.0 [place] Hemoglobin [Mass/volume] in Bloodon 05-25-2024 Hemoglobin (Bld) [Mass/Vol] 11.7 g/dL Low 12.0-16.0 [place] Hemoglobin (Bld) [Mass/Vol] Hemoglobin [Mass/volume] in Blood Low 12.0-16.0 [place] Iron binding capacity [Mass/ volume] in Serum or Plasmaon 05-25-2024 Iron binding capacity [Mass/Vol] 410.0 ug/dL 250.0-450.0 [place] Iron binding capacity [Mass/Vol] Iron binding capacity [Mass/volume] in Serum or Plasma 250.0-450.0 [place] Iron saturation [Mass Fracti on] in Serum or Plasmaon 05-25-2024 Iron saturation [Mass fraction] 33.2 % [place] Iron saturation [Mass fraction] Iron saturation [Mass Fraction] in Serum or Plasma [place] [facility] - Chemistry and C hemistry - challengeon 05-25-2024 Albumin [Mass/Vol] 3.3 g/dL Low 3.4-5.0 [facility] ALP [Catalytic activity/Vol] 47 U/L 46-116 [place] ALT [Catalytic activity/Vol] 17 U/L 14-59 [place] AST [Catalytic activity/Vol] 21 U/L 15-37 [place] Bilirubin [Mass/Vol] 0.6 mg/dL 0.2-1.[address] [facility] Calcium [Mass/Vol] 8.7 mg/dL 8.5-10.1 [facility] Chloride [Moles/Vol] 104 mmol/L 98-[address] [facility] CO2 [Moles/Vol] 28.8 mmol/L 21.0-32.0 [facility] Cobalamin (Vitamin B12) [Mass/Vol] 963 pg/mL 232-1245 [place] Comment on above: Performed at: [address] [id number] Director: Nicanor Omalley PhD, Phone: [phone] Creatinine [Mass/Vol] 1.15 mg/dL High 0.55-1.02 [place] Ferritin [Mass/Vol] 44.0 ng/mL 8.0-252.0 [facility] GFR/1.73 sq M.predicted MDRD (S/P/Bld) [Vol rate/Area] 55 mL/min/{1.73_m2} Low >=60 [place] Glucose [Mass/Vol] 111 mg/dL High 74-106 [facility] Iron [Mass/Vol] 136.0 ug/dL 50.0-170.0 [facility] Potassium [Moles/Vol] 3.7 mmol/L 3.5-5.1 [place] Protein [Mass/Vol] 6.1 g/dL Low 6.4-8.2 [facility] Sodium [Moles/Vol] 140 mmol/L 136-145 [facility] TSH Qn 2.056 m[IU]/L 0.358-3.740 [place] Urea nitrogen [Mass/Vol] 20.0 mg/dL High 7.0-18.0 [place] Urea nitrogen/Creatinine [Mass ratio] 17.4 mg/mg [place] [facility] - Hematology and Cell countson 05-25-2024 Immature granulocytes/100 WBC (Bld) 0.8 % High 0.0-0.5 [place] Leukocytes [#/volume] correc bill for nucleated erythrocytes in Blood by Automated counon 05-25-2024 WBC corrected for nucl RBC Auto (Bld) [#/Vol] 4.8 10 3/uL 4.0-11.0 [place] WBC corrected for nucl RBC Auto (Bld) [#/Vol] Leukocytes [#/volume] corrected for nucleated erythrocytes in Blood by Automated coun 4.0-11.0 [place] Lymphocytes Auto (Bld) [#/Vo l]on 05-25-2024 Lymphocytes (Bld) [#/Vol] 1.1 10 3/uL Low 1.2-3.8 [place] Lymphocytes (Bld) [#/Vol] Lymphocytes [#/volume] in Blood by Automated count Low 1.2-3.8 [place] Lymphocytes/100 WBC Auto (Bl d)on 05-25-2024 Lymphocytes/100 WBC (Bld) 23.3 % 20.5-60.0 [place] Lymphocytes/100 WBC (Bld) Lymphocytes/100 leukocytes in Blood by Automated count 20.5-60.0 [place] MCH Auto (RBC) [Entitic mass ]on 05-25-2024 MCH (RBC) [Entitic mass] 30.9 pg 26.7-34.0 [place] MCH (RBC) [Entitic mass] MCH [Entitic mass] by Automated count 26.7-34.0 [place] MCHC Auto (RBC) [Mass/Vol]on 05-25-2024 MCHC (RBC) [Mass/Vol] 32.4 g/dL 29.9-35.2 [place] MCHC (RBC) [Mass/Vol] MCHC [Mass/volume] by Automated count 29.9-35.2 [place] MCV Auto (RBC) [Entitic vol] on 05-25-2024 MCV (RBC) [Entitic vol] 95.3 fL 81.0-99.0 [place] MCV (RBC) [Entitic vol] MCV [Entitic volume] by Automated count 81.0-99.0 [place] Monocytes Auto (Bld) [#/Vol] on 05-25-2024 Monocytes (Bld) [#/Vol] 0.3 10 3/uL 0.3-0.8 [place] Monocytes (Bld) [#/Vol] Automated blood monocyte count 0.3-0.8 [place] Monocytes/100 WBC Auto (Bld) on 05-25-2024 Monocytes/100 WBC (Bld) 7.0 % 1.7-12.0 [place] Monocytes/100 WBC (Bld) Automated monocyte % 1.7-12.0 [place] Neutrophils Auto (Bld) [#/Vo l]on 05-25-2024 Neutrophils (Bld) [#/Vol] 3.2 10 3/uL 1.4-6.5 [place] Neutrophils (Bld) [#/Vol] Neutrophils [#/volume] in Blood by Automated count 1.4-6.5 [place] Neutrophils/100 WBC Auto (Bl d)on 05-25-2024 Neutrophils/100 WBC (Bld) 66.2 % 43.0-75.0 [place] Neutrophils/100 WBC (Bld) Automated neutrophil % 43.0-75.0 [place] No Panel Informationon 05-25 Eosinophils # (Auto) 0.1 10 3/uL 0.0-0.7 [facility] Folate 27.00 ng/mL 8.60-58.90 [place] Immature Granulocyte # (Auto) 0.04 10 3/uL High 0.00-0.03 [place] Platelet mean volume Auto (B ld) [Entitic vol]on 05-25-2024 Platelet mean volume (Bld) [Entitic vol] 10.8 fL 9.5-13.5 [place] Platelet mean volume (Bld) [Entitic vol] Platelet mean volume [Entitic volume] in Blood by Automated count 9.5-13.5 [place] Platelets Auto (Bld) [#/Vol] on 05-25-2024 Platelets (Bld) [#/Vol] 186 10 3/uL 150-450 [place] Platelets (Bld) [#/Vol] Platelets [#/volume] in Blood by Automated count 150-450 [place] RBC Auto (Bld) [#/Vol]on RBC (Bld) [#/Vol] 3.79 10 6/uL Low 4.20-5.40 [facility] RBC (Bld) [#/Vol] Erythrocytes [#/volume] in Blood by Automated count Low 4.20-5.40 [place] Serum or plasma albumin/glob ulin mass ratioon 05-25-2024 Albumin/Globulin [Mass ratio] 1.2 {ratio} [place] Albumin/Globulin [Mass ratio] Serum or plasma albumin/globulin mass ratio [place] Serum or plasma anion gap de terminationon 05-25-2024 Anion gap [Moles/Vol] 10.9 mmol/L [place] Anion gap [Moles/Vol] Serum or plasma anion gap determination [place] Basophils Auto (Bld) [#/Vol] on 11-25-2023 Basophils (Bld) [#/Vol] 0.0 10 3/uL 0.0-0.1 [place] Basophils/100 WBC Auto (Bld) on 11-25-2023 Basophils/100 WBC (Bld) 0.4 % 0.2-2.0 [place] Eosinophils/100 WBC Auto (Bl d)on 11-25-2023 Eosinophils/100 WBC (Bld) 2.9 % 0.9-7.0 [place] Erythrocyte distribution wid th Auto (RBC) [Ratio]on 11-25-2023 Erythrocyte distribution width (RBC) [Ratio] 13.2 % 11.0-15.0 [place] Hematocrit Auto (Bld) [Volum e fraction]on 11-25-2023 Hematocrit (Bld) [Volume fraction] 36.7 % 36.0-48.0 [place] Hemoglobin [Mass/volume] in Bloodon 11-25-2023 Hemoglobin (Bld) [Mass/Vol] 11.5 g/dL 12.0-16.0 [place] [facility] - Chemistry and C hemistry - challengeon 11-25-2023 Ferritin [Mass/Vol] 27.0 ng/mL 8.0-252.0 [facility] - Hematology and Cell countson 11-25-2023 Immature granulocytes/100 WBC (Bld) 0.4 % 0.0-0.5 [place] Leukocytes [#/volume] correc bill for nucleated erythrocytes in Blood by Automated counon 11-25-2023 WBC corrected for nucl RBC Auto (Bld) [#/Vol] 4.8 10 3/uL 4.0-11.0 [place] Lymphocytes Auto (Bld) [#/Vo l]on 11-25-2023 Lymphocytes (Bld) [#/Vol] 1.3 10 3/uL 1.2-3.8 [place] Lymphocytes/100 WBC Auto (Bl d)on 11-25-2023 Lymphocytes/100 WBC (Bld) 27.7 % 20.5-60.0 [place] MCH Auto (RBC) [Entitic mass ]on 11-25-2023 MCH (RBC) [Entitic mass] 29.9 pg 26.7-34.0 [place] MCHC Auto (RBC) [Mass/Vol]on 11-25-2023 MCHC (RBC) [Mass/Vol] 31.3 g/dL 29.9-35.2 [place] MCV Auto (RBC) [Entitic vol] on 11-25-2023 MCV (RBC) [Entitic vol] 95.3 fL 81.0-99.0 [place] Monocytes Auto (Bld) [#/Vol] on 11-25-2023 Monocytes (Bld) [#/Vol] 0.4 10 3/uL 0.3-0.8 [place] Monocytes/100 WBC Auto (Bld) on 11-25-2023 Monocytes/100 WBC (Bld) 7.8 % 1.7-12.0 [place] Neutrophils Auto (Bld) [#/Vo l]on 11-25-2023 Neutrophils (Bld) [#/Vol] 2.9 10 3/uL 1.4-6.5 [place] Neutrophils/100 WBC Auto (Bl d)on 11-25-2023 Neutrophils/100 WBC (Bld) 60.8 % 43.0-75.0 [place] No Panel Informationon 11-24 Eosinophils # (Auto) 0.1 10 3/uL 0.0-0.7 [facility] Folate 24.20 ng/mL 8.60-58.90 [place] Immature Granulocyte # (Auto) 0.02 10 3/uL 0.00-0.03 [place] Vitamin B12 Level >6000.0 pg/mL 193.0-986.0 [facility] Platelet mean volume Auto (B ld) [Entitic vol]on 11-25-2023 Platelet mean volume (Bld) [Entitic vol] 10.5 fL 9.5-13.5 [place] Platelets Auto (Bld) [#/Vol] on 11-25-2023 Platelets (Bld) [#/Vol] 187 10 3/uL 150-450 [place] RBC Auto (Bld) [#/Vol]on RBC (Bld) [#/Vol] 3.85 10 6/uL 4.20-5.40 [facility] Quick Fluon 08-28-2023 FLUAV Ab CF (S) [Titer] Negative [employer] [facility] [employer] Other FLUBV Ab CF (S) [Titer] Negative [employer] Other CBC AUTO DIFFon 02-03-2023 BASO # 0.0 103/ul Normal 0.0-0.1 [facility] Comment on above: Performed By: #### L IVER, BMP, LIPA, EDSON #### [facility] [address] [address] [address] Julia Velasquez Basophils/100 WBC (Bld) 0.4 % Normal 0.2-2.0 [facility] Comment on above: Performed By: #### L IVER, BMP, LIPA, EDSON #### [facility] [address] [address] [address] Julia Velasquez EO # 0.3 103/ul Normal 0.0-0.7 [facility] Comment on above: Performed By: #### L IVER, BMP, LIPA, EDSON #### [facility] [address] [place] [address] Dr. Julia Velasquez Eosinophils/100 WBC (Bld) 5.5 % Normal 0.9-7.0 [facility] Comment on above: Performed By: #### L IVER, BMP, LIPA, EDSON #### [facility] [address] [place] [address] Dr. Julia Velasquez Erythrocyte distribution width (RBC) [Ratio] 14.1 % Normal 11.0-15.0 [facility] Comment on above: Performed By: #### L IVER, BMP, LIPA, EDSON #### [facility] [address] [place] [address] Dr. Julia Velasquez Hematocrit (Bld) [Volume fraction] 36.4 % Normal 36.0-48.0 [facility] Comment on above: Performed By: #### L IVER, BMP, LIPA, EDSON #### [facility] [address] [place] [address] Dr. Julia Velasquez Hemoglobin (Bld) [Mass/Vol] 11.4 g/dL Critically low 12.0-16.0 [facility] Comment on above: Performed By: #### L IVER, BMP, LIPA, EDSON #### [facility] [address] [place] [address] Dr. Julia Velasquez IG # 0.02 10e3/ul Normal 0.00-0.03 [facility] Comment on above: Performed By: #### L IVER, BMP, LIPA, EDSON #### [facility] [address] [place] [address] Dr. Julia Velasquez IG % 0.4 % Normal 0.0-0.5 [facility] Comment on above: Performed By: #### L IVER, BMP, LIPA, EDSON #### [facility] [address] [place] [address] Dr. Julia Velasquez LYMPH # 1.4 103/ul Normal 1.2-3.8 [facility] Comment on above: Performed By: #### L IVER, BMP, LIPA, EDSON #### [facility] [address] [place] [address] Dr. Julia Velasquez Lymphocytes/100 WBC (Bld) 28.4 % Normal 20.5-60.0 [facility] Comment on above: Performed By: #### L IVER, BMP, LIPA, EDSON #### [facility] [address] [place] [address] Dr. Julia Velasquez MANUAL DIFF REQ NO Normal [facility] Comment on above: Performed By: #### L IVER, BMP, LIPA, EDSON #### [facility] [address] [place] [address] Dr. Julia Velasquez MCH (RBC) [Entitic mass] 30.0 pg Normal 26.7-34.0 [facility] Comment on above: Performed By: #### L IVER, BMP, LIPA, EDSON #### [facility] [address] [place] [address] Dr. Julia Velasquez MCHC (RBC) [Mass/Vol] 31.3 g/dL Normal 29.9-35.2 [facility] Comment on above: Performed By: #### L IVER, BMP, LIPA, EDSON #### [facility] [address] [place] [address] Dr. Julia Velasquez MCV (RBC) [Entitic vol] 95.8 fL Normal 81.0-99.0 [facility] Comment on above: Performed By: #### L IVER, BMP, LIPA, EDSON #### [facility] [address] [place] [address] Dr. Julia Velasquez MONO # 0.4 103/ul Normal 0.3-0.8 [facility] Comment on above: Performed By: #### L IVER, BMP, LIPA, EDSON #### [facility] [address] [place] [address] Dr. Julia Velasquez Monocytes/100 WBC (Bld) 7.8 % Normal 1.7-12.0 [facility] Comment on above: Performed By: #### L IVER, BMP, LIPA, EDSON #### [facility] [address] [place] [address] Dr. Julia Velasquez NEUT # 2.8 103/ul Normal 1.4-6.5 [facility] Comment on above: Performed By: #### L IVER, BMP, LIPA, EDSON #### [facility] [address] [place] [address] Dr. Julia Velasquez Neutrophils/100 WBC (Bld) 57.5 % Normal 43.0-75.0 [facility] Comment on above: Performed By: #### L IVER, BMP, LIPA, EDSON #### [facility] [address] [place] [address] Dr. Julia Velasquez Platelet mean volume (Bld) [Entitic vol] 10.6 fL Normal 9.5-13.5 [facility] Comment on above: Performed By: #### L IVER, BMP, LIPA, EDSON #### [facility] [address] [place] [address] Dr. Julia Velasquez PLT 212 103/ul Normal 150-450 [facility] Comment on above: Performed By: #### L IVER, BMP, LIPA, EDSON #### [facility] [address] [place] [address] Dr. Julia Velasquez RBC 3.80 106/ul Critically low 4.20-5.40 [facility] Comment on above: Performed By: #### L IVER, BMP, LIPA, EDSON #### [facility] [address] [place] [address] Dr. Julia Velasquez WBC 4.9 103/ul Normal 4.0-11.0 [facility] Comment on above: Performed By: #### L IVER, BMP, LIPA, EDSON #### [facility] [address] [place] [address] Dr. Julia Velasquez FERRITINon 02-03-2023 Ferritin [Mass/Vol] 63.0 ng/mL Normal 8.0-252.0 [facility] Comment on above: Performed By: #### L IVER, BMP, LIPA, EDSON #### [facility] [address] [place] [address] Dr. Julia Velasquez IRON AND TIBCon 02-03-2023 % SATURATION 25.5 % Normal [facility] Comment on above: Performed By: #### L IVER, BMP, LIPA, EDSON #### [facility] [address] [place] [address] Dr. Julia Velasquez Iron [Mass/Vol] 100.0 ug/dL Normal 50.0-170.0 [facility] Comment on above: Performed By: #### L IVER, BMP, LIPA, EDSON #### [facility] [address] [place] [address] Dr. Julia Velasquez TIBC DIRECT 392.0 ug/dL Normal 250.0-450.0 [facility] Comment on above: Performed By: #### L IVER, BMP, LIPA, EDSON #### [facility] [address] [place] [address] Dr. Julia Velasquez PROF CHEM 8 (BAS METB)on Anion gap [Moles/Vol] 13.0 mmol/L Normal [facility] Comment on above: Performed By: #### B MP #### [facility] [address] [place] [address] Dr. Julia Velasquez Calcium [Mass/Vol] 8.9 mg/dL Normal 8.5-10.1 [facility] Comment on above: Performed By: #### B MP #### [facility] [address] [place] [address] Dr. Julia Velasquez Chloride [Moles/Vol] 106 mmol/L Normal 98-107 [facility] Comment on above: Performed By: #### B MP #### [facility] [address] [place] [address] Dr. Julia Velasquez CO2 [Moles/Vol] 27.7 mmol/L Normal 21.0-32.0 [facility] Comment on above: Performed By: #### B MP #### [facility] [address] [place] [address] Dr. Julia Velasquez Creatinine [Mass/Vol] 1.24 mg/dL Critically high 0.55-1.02 [facility] Comment on above: Performed By: #### B MP #### [facility] [address] [address] [address] Julia Velasquez EGFR-AF WALLISIAN 50 mL/min/1.73m2 Critically low >=60 [facility] Comment on above: Performed By: #### B MP #### [facility] [address] [address] [address] Julia Velasquez EGFR-NON AF WALLISIAN 42 mL/min/1.73m2 Critically low >=60 [facility] Comment on above: Performed By: #### B MP #### [facility] [address] [address] [address] Julia Velasquez Glucose [Mass/Vol] 99 mg/dL Normal 74-106 [facility] Comment on above: Performed By: #### B MP #### [facility] [address] [address] [address] Julia Velasquez Potassium [Moles/Vol] 3.7 mmol/L Normal 3.5-5.1 [facility] Comment on above: Performed By: #### B MP #### [facility] [address] [address] [address] Julia Velasquez Sodium [Moles/Vol] 143 mmol/L Normal 136-145 [facility] Comment on above: Performed By: #### B MP #### [facility] [address] [address] [address] Julia Velasquez Urea nitrogen [Mass/Vol] 12.0 mg/dL Normal 7.0-18.0 [facility] Comment on above: Performed By: #### B MP #### [facility] [address] [address] [address] Julia Velasquez Urea nitrogen/Creatinine [Mass ratio] 9.7 mg/mg Normal [facility] Comment on above: Performed By: #### B MP #### [facility] [address] [address] [address] Julia Velasquez UA RANDOM W/MICROSCOPICon BACTERIA TRACE Abnormal NONE SEEN [facility] Comment on above: Performed By: #### L IVER, BMP, LIPA, EDSON #### [facility] [address] [address] [address] Julia Velasquez Bilirubin Ql (U) Negative Normal NEGATIVE [facility] Comment on above: Performed By: #### L IVER, BMP, LIPA, EDSON #### [facility] [address] [address] [address] Julia Velasquez CAST NONE SEEN Normal NONE SEEN [facility] Comment on above: Performed By: #### L IVER, BMP, LIPA, EDSON #### [facility] [address] [address] [address] Julia Velasquez Clarity (U) CLEAR Normal CLEAR [facility] Comment on above: Performed By: #### L IVER, BMP, LIPA, EDSON #### [facility] [address] [place] [address] Dr. Julia Velasquez Color (U) LT. YELLOW Normal YELLOW [facility] Comment on above: Performed By: #### L IVER, BMP, LIPA, EDSON #### [facility] [address] [place] [address] Dr. Julia Velasquez Crystals LM Nom (Urine sed) NONE SEEN Normal NONE SEEN [facility] Comment on above: Performed By: #### L IVER, BMP, LIPA, EDSON #### [facility] [address] [place] [address] Dr. Julia Velasquez Epithelial cells LM Ql (Urine sed) MODERATE Abnormal NONE SEEN /RARE [facility] Comment on above: Performed By: #### L IVER, BMP, LIPA, EDSON #### [facility] [address] [address] [address] Julia Velasquez Glucose Ql (U) Negative Normal NEGATIVE [facility] Comment on above: Performed By: #### L IVER, BMP, LIPA, EDSON #### [facility] [address] [address] [address] Julia Velasquez Hemoglobin Ql (U) Negative Normal NEGATIVE [facility] Comment on above: Performed By: #### L IVER, BMP, LIPA, EDSON #### [facility] [address] [place] [address] Dr. Julia Velasquez Ketones Ql (U) Negative Normal NEGATIVE [facility] Comment on above: Performed By: #### L IVER, BMP, LIPA, EDSON #### [facility] [address] [place] [address] Dr. Julia Velasquez LEUKOCYTES Negative Normal NEGATIVE [facility] [facility] Comment on above: Performed By: #### L IVER, BMP, LIPA, EDSON #### [facility] [address] [place] [address] Dr. Julia Velasquez MUCOUS NONE SEEN Normal NONE SEEN The [facility] Comment on above: Performed By: #### L IVER, BMP, LIPA, EDSON #### [facility] [address] [place] [address] Dr. Julia Velasquez Nitrite Ql (U) Negative Normal NEGATIVE The [facility] Comment on above: Performed By: #### L IVER, BMP, LIPA, EDSON #### [facility] [address] [place] [address] Dr. Julia Velasquez pH (U) 7.5 [pH] Normal 5-9 [facility] Comment on above: Performed By: #### L IVER, BMP, LIPA, EDSON #### [facility] [address] [place] [address] Dr. Julia Velasquez RBC 0-2 Normal 0-2 [facility] Comment on above: Performed By: #### L IVER, BMP, LIPA, EDSON #### [facility] [address] [place] [address] Dr. Julia Velasquez SPEC GRAVITY 1.010 Normal 1.005-<=1.025 [facility] Comment on above: Performed By: #### L IVER, BMP, LIPA, EDSON #### [facility] [address] [place] [address] Dr. Julia Velasquez UA PROTEIN Negative Normal NEGATIVE/ TRACE The [facility] Comment on above: Performed By: #### L IVER, BMP, LIPA, EDSON #### [facility] [address] [place] [address] Dr. Julia Velasquez Urobilinogen Qn (U) 2.0 {Avery'U}/dL Abnormal 0.2 - 1. 0 The [facility] Comment on above: Performed By: #### L IVNANCY VARGAS LIPA, EDSON #### [facility] [address] [place] [address] Dr. Julia Velasquez WBC NONE SEEN Normal NONE SEEN The [facility] Comment on above: Performed By: #### L IVNANCY VARGAS, LIPA, EDSON #### [facility] [address] [place] [address] Dr. Julia Velasquez VIT B12 AND FOLATEon 023 Cobalamin (Vitamin B12) [Mass/Vol] 199.0 pg/mL Normal 193.0-986.0 [facility] Comment on above: Performed By: #### L NANCY MONDRAGON LIPA, EDSON #### [facility] [address] [place] [address] Dr. Julia Velasquez FOLATE 27.10 ng/mL Normal 8.60-58.90 [facility] Comment on above: Performed By: #### L NANCY MONDRAGON LIPA, EDSON #### [facility] [address] [place] [address] Dr. Julia Velasquez XR CHEST 2 Von [...] NANDO CARLSON Date: 2023-02-03 14:28 Normal The [facility] CBC AUTO DIFFon 01-07-2023 BASO # 0.0 103/ul Normal 0.0-0.1 The [facility] Comment on above: Performed By: #### L IVER, BMP, LIPA, EDSON #### [facility] [address] [place] [address] Dr. Julia Velasquez Basophils/100 WBC (Bld) 0.6 % Normal 0.2-2.0 The [facility] Comment on above: Performed By: #### L IVER, BMP, LIPA, EDSON #### [facility] [address] [place] [address] Dr. Julia Velasquez EO # 0.1 103/ul Normal 0.0-0.7 The [facility] Comment on above: Performed By: #### L IVER, BMP, LIPA, EDSON #### [facility] [address] [place] [address] Dr. Julia Velasquez Eosinophils/100 WBC (Bld) 3.3 % Normal 0.9-7.0 The [facility] Comment on above: Performed By: #### L IVER, BMP, LIPA, EDSON #### [facility] [address] [place] [address] Dr. Julia Velasquez Erythrocyte distribution width (RBC) [Ratio] 16.1 % Critically high 11.0-15.0 The [facility] Comment on above: Performed By: #### L IVER, BMP, LIPA, EDSON #### [facility] [address] [place] [address] Dr. Julia Velasquez Hematocrit (Bld) [Volume fraction] 34.9 % Critically low 36.0-48.0 The [facility] Comment on above: Performed By: #### L IVER, BMP, LIPA, EDSON #### [facility] [address] [place] [address] Dr. Julia Velasquez Hemoglobin (Bld) [Mass/Vol] 11.1 g/dL Critically low 12.0-16.0 [facility] Comment on above: Performed By: #### L IVER, BMP, LIPA, EDSON #### [facility] [address] [place] [address] Dr. Julia Velasquez IG # 0.05 10e3/ul Critically high 0.00-0.03 [facility] Comment on above: Performed By: #### L IVER, BMP, LIPA, EDSON #### [facility] [address] [address] [address] Julia Velasquez IG % 1.4 % Critically high 0.0-0.5 [facility] Comment on above: Performed By: #### L IVER, BMP, LIPA, EDSON #### [facility] [address] [address] [address] Julia Velasquez LYMPH # 1.1 103/ul Critically low 1.2-3.8 [facility] Comment on above: Performed By: #### L IVER, BMP, LIPA, EDSON #### [facility] [address] [place] [address] Dr. Julia Velasquez Lymphocytes/100 WBC (Bld) 31.6 % Normal 20.5-60.0 [facility] Comment on above: Performed By: #### L IVER, BMP, LIPA, EDSON #### [facility] [address] [address] [address] Julia Velasquez MANUAL DIFF REQ NO Normal [facility] Comment on above: Performed By: #### L IVER, BMP, LIPA, EDSON #### [facility] [address] [place] [address] Dr. Julia Velasquez MCH (RBC) [Entitic mass] 30.4 pg Normal 26.7-34.0 [facility] Comment on above: Performed By: #### L IVER, BMP, LIPA, EDSON #### [facility] [address] [address] [address] Julia Velasquez MCHC (RBC) [Mass/Vol] 31.8 g/dL Normal 29.9-35.2 [facility] Comment on above: Performed By: #### L IVER, BMP, LIPA, EDSON #### [facility] [address] [address] [address] Julia Velasquez MCV (RBC) [Entitic vol] 95.6 fL Normal 81.0-99.0 [facility] Comment on above: Performed By: #### L IVER, BMP, LIPA, EDSON #### [facility] [address] [place] [address] Dr. Julia Velasquez MONO # 0.2 103/ul Critically low 0.3-0.8 [facility] Comment on above: Performed By: #### L IVER, BMP, LIPA, EDSON #### [facility] [address] [place] [address] Dr. Julia Velasquez Monocytes/100 WBC (Bld) 6.1 % Normal 1.7-12.0 [facility] Comment on above: Performed By: #### L IVER, BMP, LIPA, EDSON #### [facility] [address] [place] [address] Dr. Julia Velasquez NEUT # 2.1 103/ul Normal 1.4-6.5 The [facility] Comment on above: Performed By: #### L IVER, BMP, LIPA, EDSON #### [facility] [address] [place] [address] Dr. Julia Velasquez Neutrophils/100 WBC (Bld) 57.0 % Normal 43.0-75.0 [facility] Comment on above: Performed By: #### L IVER, BMP, LIPA, EDSON #### [facility] [address] [place] [address] Dr. Julia Velasquez Platelet mean volume (Bld) [Entitic vol] 10.4 fL Normal 9.5-13.5 [facility] Comment on above: Performed By: #### L IVER, BMP, LIPA, EDSON #### [facility] [address] [place] [address] Dr. Julia Velasquez PLT 167 103/ul Normal 150-450 [facility] Comment on above: Performed By: #### L IVER, BMP, LIPA, EDSON #### [facility] [address] [place] [address] Dr. Julia Velasquez RBC 3.65 106/ul Critically low 4.20-5.40 [facility] Comment on above: Performed By: #### L IVER, BMP, LIPA, EDSON #### [facility] [address] [address] [address] Julia Velasquez WBC 3.6 103/ul Critically low 4.0-11.0 [facility] Comment on above: Performed By: #### L IVER, BMP, LIPA, EDSON #### [facility] [address] [place] [address] Dr. Julia Velasquez FERRITINon 01-07-2023 Ferritin [Mass/Vol] 148.0 ng/mL Normal 8.0-252.0 [facility] Comment on above: Performed By: #### L IVER, BMP, LIPA, EDSON #### [facility] [address] [place] [address] Dr. Julia Velasquez IRON AND TIBCon 01-07-2023 % SATURATION 27.1 % Normal [facility] Comment on above: Performed By: #### L IVER, BMP, LIPA, EDSON #### [facility] [address] [place] [address] Dr. Julia Velasquez Iron [Mass/Vol] 96.0 ug/dL Normal 50.0-170.0 [facility] Comment on above: Performed By: #### L IVER, BMP, LIPA, EDSON #### [facility] [address] [place] [address] Dr. Julia Velasquez TIBC DIRECT 354.0 ug/dL Normal 250.0-450.0 [facility] Comment on above: Performed By: #### L IVER, BMP, LIPA, EDSON #### [facility] [address] [place] [address] Dr. Julia Velasquez PROF CHEM 8 (BAS METB)on Anion gap [Moles/Vol] 11.8 mmol/L Normal [facility] Comment on above: Performed By: #### L IVER, BMP, LIPA, EDSON #### [facility] [address] [place] [address] Dr. Julia Velasquez Calcium [Mass/Vol] 8.3 mg/dL Critically low 8.5-10.1 Th e [facility] Comment on above: Performed By: #### L IVER, BMP, LIPA, EDSON #### [facility] [address] [place] [address] Dr. Julia Velasquez Chloride [Moles/Vol] 108 mmol/L Critically high 98-107 [facility] Comment on above: Performed By: #### L IVER, BMP, LIPA, EDSON #### [facility] [address] [place] [address] Dr. Julia Velasquez CO2 [Moles/Vol] 27.8 mmol/L Normal 21.0-32.0 [facility] Comment on above: Performed By: #### L IVER, BMP, LIPA, EDSON #### [facility] [address] [place] [address] Dr. Julia Velasquez Creatinine [Mass/Vol] 1.00 mg/dL Normal 0.55-1.02 [facility] Comment on above: Performed By: #### L IVER, BMP, LIPA, EDSON #### [facility] [address] [place] [address] Dr. Julia Velasquez EGFR-AF WALLISIAN >60 Normal >=60 [facility] Comment on above: Performed By: #### L IVER, BMP, LIPA, EDSON #### [facility] [address] [place] [address] Dr. Julia Velasquez EGFR-NON AF WALLISIAN 53 mL/min/1.73m2 Critically low >=60 [facility] Comment on above: Performed By: #### L IVER, BMP, LIPA, EDSON #### [facility] [address] [place] [address] Dr. Julia Velasquez Glucose [Mass/Vol] 92 mg/dL Normal 74-106 [facility] Comment on above: Performed By: #### L IVER, BMP, LIPA, EDSON #### [facility] [address] [place] [address] Dr. Julia Velasquez Potassium [Moles/Vol] 3.6 mmol/L Normal 3.5-5.1 [facility] Comment on above: Performed By: #### L IVER, BMP, LIPA, EDSON #### [facility] [address] [address] [address] Julia Velasquez Sodium [Moles/Vol] 144 mmol/L Normal 136-145 [facility] Comment on above: Performed By: #### L IVER, BMP, LIPA, EDSON #### [facility] [address] [place] [address] Dr. Julia Velasquez Urea nitrogen [Mass/Vol] 8.0 mg/dL Normal 7.0-18.0 [facility] Comment on above: Performed By: #### L IVER, BMP, LIPA, EDSON #### [facility] [address] [address] [address] Julia Velasquez Urea nitrogen/Creatinine [Mass ratio] 8.0 mg/mg Normal [facility] Comment on above: Performed By: #### L IVER, BMP, LIPA, EDSON #### [facility] [address] [place] [address] Dr. Julia Velasquez RETICULOCYTEon 01-07-2023 RETIC 4.40 % Critically high 0.60-3.10 [facility] Comment on above: Performed By: #### L IVER, BMP, LIPA, EDSON #### [facility] [address] [place] [address] Dr. Julia Velasquez VIT B12 AND FOLATEon 023 Cobalamin (Vitamin B12) [Mass/Vol] 322.0 pg/mL Normal 193.0-986.0 [facility] Comment on above: Performed By: #### L IVER, BMP, LIPA, EDSON #### [facility] [address] [place] [address] Dr. Julia Velasquez FOLATE 6.10 ng/mL Critically low 8.60-58.90 [facility] Comment on above: Performed By: #### L IVER, BMP, LIPA, EDSON #### [facility] [address] [place] [address] Dr. Julia Velasquez XR CHEST 2 Von [...] NANDO CARLSON Date: 2023-01-07 11:59 Normal [facility] CBC W MANUAL DIFFon 12-15-19 23 ATYPICAL LYMPH # Normal [facility] Comment on above: Performed By: #### L IVER, BMP, LIPA, EDSON #### [facility] [address] [address] [address] Julia Velasquez ATYPICAL LYMPH % Normal [facility] Comment on above: Performed By: #### L IVER, BMP, LIPA, EDSON #### [facility] [address] [address] [address] Julia Velasquez BAND # 1.0 103/ul Critically high 0.0-0.3 [facility] Comment on above: Performed By: #### L IVER, BMP, LIPA, EDSON #### [facility] [address] [address] [address] Julia Velasquez BAND % 9 % Critically high 0-5 [facility] Comment on above: Performed By: #### L IVER, BMP, LIPA, EDSON #### [facility] [address] [address] [address] Julia Velasquez BASOM # 0.00 103/ul Normal 0.00-0.10 [facility] Comment on above: Performed By: #### L IVER, BMP, LIPA, EDSON #### [facility] [address] [address] [address] Julia Velasquez BASOM % 0.0 % Critically low 0.2-2.0 [facility] Comment on above: Performed By: #### L IVER, BMP, LIPA, EDSON #### [facility] [address] [address] [address] Julia Velasquez BLAST # Normal [facility] Comment on above: Performed By: #### L IVER, BMP, LIPA, EDSON #### [facility] [address] [address] [address] Julia Velasquez BLAST % Normal [facility] Comment on above: Performed By: #### L IVER, BMP, LIPA, EDSON #### [facility] [address] [address] [address] Julia Velasquez CORRECTED WBC Normal 4.0-11.0 [facility] Comment on above: Performed By: #### L IVER, BMP, LIPA, EDSON #### [facility] [address] [place] [address] Dr. Julia Velasquez EOS # 0.22 103/ul Normal 0.00-0.70 [facility] Comment on above: Performed By: #### L IVER, BMP, LIPA, EDSON #### [facility] [address] [address] [address] Julia Velasquez EOS% 2.0 % Normal 0.9-7.0 [facility] Comment on above: Performed By: #### L IVER, BMP, LIPA, EDSON #### [facility] [address] [address] [address] Julia Velasquez HCT 27.3 % Critically low 36.0-48.0 [facility] Comment on above: Performed By: #### L IVER, BMP, LIPA, EDSON #### [facility] [address] [address] [address] Julia Velasquez HGB 8.5 g/dl Critically low 12.0-16.0 [facility] Comment on above: Performed By: #### L IVER, BMP, LIPA, EDSON #### [facility] [address] [address] [address] Julia Velasquez HYPOCHROMASIA SLIGHT Normal [facility] Comment on above: Performed By: #### L IVER, BMP, LIPA, EDSON #### [facility] [address] [address] [address] Julia Velasquez LYMPHM # 0.99 103/ul Critically low 1.20-3.80 [facility] Comment on above: Performed By: #### L IVER, BMP, LIPA, EDSON #### [facility] [address] [place] [address] Dr. Julia Velasquez LYMPHM% 9.0 % Critically low 20.5-60.0 [facility] Comment on above: Performed By: #### L IVER, BMP, LIPA, EDSON #### [facility] [address] [place] [address] Dr. Julia Velasquez MCH 28.3 pg Normal 26.7-34.0 [facility] Comment on above: Performed By: #### L IVER, BMP, LIPA, EDSON #### [facility] [address] [place] [address] Dr. Julia Velasquez MCHC 31.1 g/dl Normal 29.9-35.2 [facility] Comment on above: Performed By: #### L IVER, BMP, LIPA, EDSON #### [facility] [address] [place] [address] Dr. Julia Velasquez MCV 91.0 fL Normal 81.0-99.0 [facility] Comment on above: Performed By: #### L IVER, BMP, LIPA, EDSON #### [facility] [address] [place] [address] Dr. Julia Velasquez METAMYELOCYTE # Normal [facility] Comment on above: Performed By: #### L IVER, BMP, LIPA, EDSON #### [facility] [address] [place] [address] Dr. Julia Velasquez METAMYELOCYTE % Normal [facility] Comment on above: Performed By: #### L IVER, BMP, LIPA, EDSON #### [facility] [address] [place] [address] Dr. Julia Velasquez MONOM# 0.22 103/ul Critically low 0.30-0.80 [facility] Comment on above: Performed By: #### L IVER, BMP, LIPA, EDSON #### [facility] [address] [place] [address] Dr. Julia Velasquez MONOM% 2.0 % Normal 1.7-12.0 [facility] Comment on above: Performed By: #### L IVER, BMP, LIPA, EDSON #### [facility] [address] [place] [address] Dr. Julia Velasquez MPV 10.9 fL Normal 9.5-13.5 [facility] Comment on above: Performed By: #### L IVER, BMP, LIPA, EDSON #### [facility] [address] [place] [address] Dr. Julia Velasquez MYELOCYTE # Normal [facility] Comment on above: Performed By: #### L IVER, BMP, LIPA, EDSON #### [facility] [address] [place] [address] Dr. Julia Velasquez MYELOCYTE % Normal [facility] Comment on above: Performed By: #### L IVER, BMP, LIPA, EDSON #### [facility] [address] [place] [address] Dr. Julia Velasquez NRBC Normal [facility] Comment on above: Performed By: #### L IVER, BMP, LIPA, EDSON #### [facility] [address] [place] [address] Dr. Julia Velasquez PLT 240 103/ul Normal 150-450 [facility] Comment on above: Performed By: #### L IVER, BMP, LIPA, EDSON #### [facility] [address] [place] [address] Dr. Julia Velasquez RBC 3.00 106/ul Critically low 4.20-5.40 [facility] Comment on above: Performed By: #### L IVER, BMP, LIPA, EDSON #### [facility] [address] [place] [address] Dr. Julia Velasquez RDW 17.2 % Critically high 11.0-15.0 [facility] Comment on above: Performed By: #### L IVER, BMP, LIPA, EDSON #### [facility] [address] [place] [address] Dr. Julia Velasquez SEG # 8.58 103/ul Critically high 1.40-6.50 [facility] Comment on above: Performed By: #### L IVER, BMP, LIPA, EDSON #### [facility] [address] [place] [address] Dr. Julia Velasquez SEG % 78.0 % Critically high 43.0-75.0 [facility] Comment on above: Performed By: #### L IVER, BMP, LIPA, EDSON #### [facility] [address] [place] [address] Dr. Julia Velasquez WBC 11.0 103/ul Normal 4.0-11.0 [facility] Comment on above: Performed By: #### L IVER, BMP, LIPA, EDSON #### [facility] [address] [place] [address] Dr. Julia Velasquez PROF 14(COMP METB)on 023 Albumin [Mass/Vol] 1.3 g/dL Critically low 3.4-5.0 [facility] Comment on above: Performed By: #### C MP #### [facility] [address] [place] [address] Dr. Julia Velasquez Albumin/Globulin [Mass ratio] 0.3 {ratio} Normal [facility] Comment on above: Performed By: #### C MP #### [facility] [address] [place] [address] Dr. Julia Velasquez ALP [Catalytic activity/Vol] 93 U/L Normal 46-116 [facility] Comment on above: Performed By: #### C MP #### [facility] [address] [place] [address] Dr. Julia Velasquez ALT [Catalytic activity/Vol] 30 U/L Normal 14-59 [facility] Comment on above: Performed By: #### C MP #### [facility] [address] [place] [address] Dr. Julia Velasquez Anion gap [Moles/Vol] 13.4 mmol/L Normal [facility] Comment on above: Performed By: #### C MP #### [facility] [address] [address] [address] Julia Velasquez AST [Catalytic activity/Vol] 71 U/L Critically high 15-37 [facility] Comment on above: Performed By: #### C MP #### [facility] [address] [address] [address] Julia Velasquez Bilirubin [Mass/Vol] 1.2 mg/dL Critically high 0.2-1.0 [facility] Comment on above: Performed By: #### C MP #### [facility] [address] [place] [address] Dr. Julia Velasquez Calcium [Mass/Vol] 8.1 mg/dL Critically low 8.5-10.1 [facility] Comment on above: Performed By: #### C MP #### [facility] [address] [address] [address] Julia Velasquez Chloride [Moles/Vol] 116 mmol/L Critically high 98-107 [facility] Comment on above: Performed By: #### C MP #### [facility] [address] [place] [address] Dr. Julia Velasquez CO2 [Moles/Vol] 21.3 mmol/L Normal 21.0-32.0 [facility] Comment on above: Performed By: #### C MP #### [facility] [address] [address] [address] Julia Velasquez Creatinine [Mass/Vol] 1.10 mg/dL Critically high 0.55-1.02 [facility] Comment on above: Performed By: #### C MP #### [facility] [address] [place] [address] Dr. Julia Velasquez EGFR-AF WALLISIAN 58 mL/min/1.73m2 Critically low >=60 [facility] Comment on above: Performed By: #### C MP #### [facility] [address] [place] [address] Dr. Julia Velasquez EGFR-NON AF WALLISIAN 48 mL/min/1.73m2 Critically low >=60 [facility] Comment on above: Performed By: #### C MP #### [facility] [address] [place] [address] Dr. Julia Velasquez Globulin (S) [Mass/Vol] 3.8 g/dL Normal [facility] Comment on above: Performed By: #### C MP #### [facility] [address] [place] [address] Dr. Julia Velasquez Glucose [Mass/Vol] 110 mg/dL Critically high 74-106 [facility] Comment on above: Performed By: #### C MP #### [facility] [address] [place] [address] Dr. Julia Velasquez Potassium [Moles/Vol] 4.7 mmol/L Normal 3.5-5.1 [facility] Comment on above: Performed By: #### C MP #### [facility] [address] [place] [address] Dr. Julia Velasquez Protein [Mass/Vol] 5.1 g/dL Critically low 6.4-8.2 [facility] Comment on above: Performed By: #### C MP #### [facility] [address] [place] [address] Dr. Julia Velasquez Sodium [Moles/Vol] 146 mmol/L Critically high 136-145 [facility] Comment on above: Performed By: #### C MP #### [facility] [address] [place] [address] Dr. Julia Velasquez Urea nitrogen [Mass/Vol] 34.0 mg/dL Critically high 7.0-18.0 [facility] Comment on above: Performed By: #### C MP #### [facility] [address] [place] [address] Dr. Julia Velasquez Urea nitrogen/Creatinine [Mass ratio] 30.9 mg/mg Normal [facility] Comment on above: Performed By: #### C MP #### [facility] [address] [place] [address] Dr. Julia Velasquez CBC W MANUAL DIFFon 12-14-19 23 ATYPICAL LYMPH # 0.21 103/ul Normal [facility] Comment on above: Performed By: #### C MP #### [facility] [address] [place] [address] Dr. Julia Velasquez ATYPICAL LYMPH % 1 % Normal [facility] Comment on above: Performed By: #### C MP #### [facility] [address] [place] [address] Dr. Julia Velasquez BAND # 0.2 103/ul Normal 0.0-0.3 [facility] Comment on above: Performed By: #### C MP #### [facility] [address] [place] [address] Dr. Julia Velasquez BAND % 1 % Normal 0-5 [facility] Comment on above: Performed By: #### C MP #### [facility] [address] [place] [address] Dr. Julia Velasquez BASOM # 0.00 103/ul Normal 0.00-0.10 [facility] Comment on above: Performed By: #### C MP #### [facility] [address] [place] [address] Dr. Julia Velasquez BASOM % 0.0 % Critically low 0.2-2.0 [facility] Comment on above: Performed By: #### C MP #### [facility] [address] [place] [address] Dr. Julia Velasquez BLAST # Normal [facility] Comment on above: Performed By: #### C MP #### [facility] [address] [place] [address] Dr. Julia Velasquez BLAST % Normal [facility] Comment on above: Performed By: #### C MP #### [facility] [address] [place] [address] Dr. Julia Velasquez CORRECTED WBC Normal 4.0-11.0 [facility] Comment on above: Performed By: #### C MP #### [facility] [address] [place] [address] Dr. Jluia Velasquez EOS # 0.00 103/ul Normal 0.00-0.70 [facility] Comment on above: Performed By: #### C MP #### [facility] [address] [address] [address] Julia Velasquez EOS% 0.0 % Critically low 0.9-7.0 [facility] Comment on above: Performed By: #### C MP #### [facility] [address] [address] [address] Julia Velasquez HCT 26.7 % Critically low 36.0-48.0 [facility] Comment on above: Performed By: #### C MP #### [facility] [address] [address] [address] Julia Velasquez HGB 8.8 g/dl Critically low 12.0-16.0 [facility] Comment on above: Performed By: #### C MP #### [facility] [address] [address] [address] Julia Velasquez LYMPHM # 1.05 103/ul Critically low 1.20-3.80 [facility] Comment on above: Performed By: #### C MP #### [facility] [address] [address] [address] Julia Velasquez LYMPHM% 5.0 % Critically low 20.5-60.0 [facility] Comment on above: Performed By: #### C MP #### [facility] [address] [address] [address] Julia Velasquez MCH 29.0 pg Normal 26.7-34.0 [facility] Comment on above: Performed By: #### C MP #### [facility] [address] [address] [address] Julia Velasquez MCHC 33.0 g/dl Normal 29.9-35.2 [facility] Comment on above: Performed By: #### C MP #### [facility] [address] [address] [address] Julia Velasquez MCV 88.1 fL Normal 81.0-99.0 [facility] Comment on above: Performed By: #### C MP #### [facility] [address] [address] [address] Julia Velasquez METAMYELOCYTE # Normal [facility] Comment on above: Performed By: #### C MP #### [facility] [address] [address] [address] Julia Velasquez METAMYELOCYTE % Normal [facility] Comment on above: Performed By: #### C MP #### [facility] [address] [address] [address] Julia Velasquez MONOM# 0.21 103/ul Critically low 0.30-0.80 [facility] Comment on above: Performed By: #### C MP #### [facility] [address] [address] [address] Julia Velasquez MONOM% 1.0 % Critically low 1.7-12.0 [facility] Comment on above: Performed By: #### C MP #### [facility] [address] [place] [address] Dr. Julia Velasquez MPV 10.6 fL Normal 9.5-13.5 [facility] Comment on above: Performed By: #### C MP #### [facility] [address] [place] [address] Dr. Julia Velasquez MYELOCYTE # Normal [facility] Comment on above: Performed By: #### C MP #### [facility] [address] [place] [address] Dr. Julia Velasquez MYELOCYTE % Normal [facility] Comment on above: Performed By: #### C MP #### [facility] [address] [address] [address] Julia Velasquez NRBC Normal [facility] Comment on above: Performed By: #### C MP #### [facility] [address] [address] [address] Julia Velasquez PLT 271 103/ul Normal 150-450 [facility] Comment on above: Performed By: #### C MP #### [facility] [address] [place] [address] Dr. Julia Velasquez RBC 3.03 106/ul Critically low 4.20-5.40 [facility] Comment on above: Performed By: #### C MP #### [facility] [address] [address] [address] Julia Velasquez RDW 16.7 % Critically high 11.0-15.0 [facility] Comment on above: Performed By: #### C MP #### [facility] [address] [address] [address] Julia Velasquez SEG # 19.41 103/ul Critically high 1.40-6.50 [facility] Comment on above: Performed By: #### C MP #### [facility] [address] [address] [address] Julia Velasquez SEG % 92.0 % Critically high 43.0-75.0 [facility] Comment on above: Performed By: #### C MP #### [facility] [address] [place] [address] Dr. Julia Velasquez WBC 21.1 103/ul Critically high 4.0-11.0 [facility] Comment on above: Performed By: #### C MP #### [facility] [address] [address] [address] Julia Velasquez PROF 14(COMP METB)on 023 Albumin [Mass/Vol] 1.4 g/dL Critically low 3.4-5.0 [facility] Comment on above: Performed By: #### C MP #### [facility] [address] [address] [address] Julia Velasquez Albumin/Globulin [Mass ratio] 0.4 {ratio} Normal [facility] Comment on above: Performed By: #### C MP #### [facility] [address] [place] [address] Dr. Julia Velasquez ALP [Catalytic activity/Vol] 87 U/L Normal 46-116 [facility] Comment on above: Performed By: #### C MP #### [facility] [address] [address] [address] Julia Velasquez ALT [Catalytic activity/Vol] 26 U/L Normal 14-59 [facility] Comment on above: Performed By: #### C MP #### [facility] [address] [address] [address] Julia Velasquez Anion gap [Moles/Vol] 14.7 mmol/L Normal [facility] Comment on above: Performed By: #### C MP #### [facility] [address] [address] [address] Julia Velasquez AST [Catalytic activity/Vol] 59 U/L Critically high 15-37 [facility] Comment on above: Performed By: #### C MP #### [facility] [address] [address] [address] Julia Velasquez Bilirubin [Mass/Vol] 1.5 mg/dL Critically high 0.2-1.0 [facility] Comment on above: Performed By: #### C MP #### [facility] [address] [address] [address] Julia Velasquez Calcium [Mass/Vol] 8.1 mg/dL Critically low 8.5-10.1 [facility] Comment on above: Performed By: #### C MP #### [facility] [address] [address] [address] Julia Velasquez Chloride [Moles/Vol] 118 mmol/L Critically high 98-107 [facility] Comment on above: Performed By: #### C MP #### [facility] [address] [address] [address] Julia Velasquez CO2 [Moles/Vol] 20.6 mmol/L Critically low 21.0-32.0 [facility] Comment on above: Performed By: #### C MP #### [facility] [address] [address] [address] Julia Velasquez Creatinine [Mass/Vol] 1.20 mg/dL Critically high 0.55-1.02 [facility] Comment on above: Performed By: #### C MP #### [facility] [address] [address] [address] Julia Velasquez EGFR-AF WALLISIAN 52 mL/min/1.73m2 Critically low >=60 [facility] Comment on above: Performed By: #### C MP #### [facility] [address] [address] [address] Julia Velasquez EGFR-NON AF WALLISIAN 43 mL/min/1.73m2 Critically low >=60 [facility] Comment on above: Performed By: #### C MP #### [facility] [address] [address] [address] Julia Velasquez Globulin (S) [Mass/Vol] 3.4 g/dL Normal [facility] Comment on above: Performed By: #### C MP #### [facility] [address] [address] [address] Julia Velasquez Glucose [Mass/Vol] 119 mg/dL Critically high 74-106 [facility] Comment on above: Performed By: #### C MP #### [facility] [address] [address] [address] Julia Velasquez Potassium [Moles/Vol] 4.3 mmol/L Normal 3.5-5.1 [facility] Comment on above: Performed By: #### C MP #### [facility] [address] [address] [address] Julia Velasquez Protein [Mass/Vol] 4.8 g/dL Critically low 6.4-8.2 [facility] Comment on above: Performed By: #### C MP #### [facility] [address] [address] [address] Julia Velasquez Sodium [Moles/Vol] 149 mmol/L Critically high 136-145 [facility] Comment on above: Performed By: #### C MP #### [facility] [address] [address] [address] Julia Velasquez Urea nitrogen [Mass/Vol] 47.0 mg/dL Critically high 7.0-18.0 [facility] Comment on above: Performed By: #### C MP #### [facility] [address] [address] [address] Julia Velasquez Urea nitrogen/Creatinine [Mass ratio] 39.2 mg/mg Normal [facility] Comment on above: Performed By: #### C MP #### [facility] [address] [place] [address] Dr. Julia Velasquez CBC W MANUAL DIFFon 12-13-19 23 ATYPICAL LYMPH # Normal [facility] Comment on above: Performed By: #### L IVER, BMP, LIPA, EDSON #### [facility] [address] [place] [address] Dr. Julia Velasquez ATYPICAL LYMPH % Normal [facility] Comment on above: Performed By: #### L IVER, BMP, LIPA, EDSON #### [facility] [address] [place] [address] Dr. Julia Velasquez BAND # 0.9 103/ul Critically high 0.0-0.3 [facility] Comment on above: Performed By: #### L IVER, BMP, LIPA, EDSON #### [facility] [address] [place] [address] Dr. Julia Velasquez BAND % 3 % Normal 0-5 [facility] Comment on above: Performed By: #### L IVER, BMP, LIPA, EDSON #### [facility] [address] [place] [address] Dr. Julia Velasquez BASOM # 0.00 103/ul Normal 0.00-0.10 [facility] Comment on above: Performed By: #### L IVER, BMP, LIPA, EDSON #### [facility] [address] [place] [address] Dr. Julia Velasquez BASOM % 0.0 % Critically low 0.2-2.0 [facility] Comment on above: Performed By: #### L IVER, BMP, LIPA, EDSON #### [facility] [address] [place] [address] Dr. Julia Velasquez BLAST # Normal [facility] Comment on above: Performed By: #### L IVER, BMP, LIPA, EDSON #### [facility] [address] [place] [address] Dr. Julia Velasquez BLAST % Normal [facility] Comment on above: Performed By: #### L IVER, BMP, LIPA, EDSON #### [facility] [address] [place] [address] Dr. Julia Velasquez CORRECTED WBC Normal 4.0-11.0 [facility] Comment on above: Performed By: #### L IVER, BMP, LIPA, EDSON #### [facility] [address] [address] [address] Julia Velasquez EOS # 0.00 103/ul Normal 0.00-0.70 [facility] Comment on above: Performed By: #### L IVER, BMP, LIPA, EDSON #### [facility] [address] [place] [address] Dr. Julia Velasquez EOS% 0.0 % Critically low 0.9-7.0 [facility] Comment on above: Performed By: #### L IVER, BMP, LIPA, EDSON #### [facility] [address] [place] [address] Dr. Julia Velasquez HCT 28.9 % Critically low 36.0-48.0 [facility] Comment on above: Performed By: #### L IVER, BMP, LIPA, EDSON #### [facility] [address] [place] [address] Dr. Julia Velasquez HGB 9.5 g/dl Critically low 12.0-16.0 [facility] Comment on above: Performed By: #### L IVER, BMP, LIPA, EDSON #### [facility] [address] [place] [address] Dr. Julia Velasquez LYMPHM # 1.21 103/ul Normal 1.20-3.80 [facility] Comment on above: Performed By: #### L IVER, BMP, LIPA, EDSON #### [facility] [address] [place] [address] Dr. Julia Velasquez LYMPHM% 4.0 % Critically low 20.5-60.0 [facility] Comment on above: Performed By: #### L IVER, BMP, LIPA, EDSON #### [facility] [address] [place] [address] Dr. Julia Velasquez MCH 29.2 pg Normal 26.7-34.0 [facility] Comment on above: Performed By: #### L IVER, BMP, LIPA, EDSON #### [facility] [address] [address] [address] Julia Velasquez MCHC 32.9 g/dl Normal 29.9-35.2 [facility] Comment on above: Performed By: #### L IVER, BMP, LIPA, EDSON #### [facility] [address] [address] [address] Julia Velasquez MCV 88.9 fL Normal 81.0-99.0 [facility] Comment on above: Performed By: #### L IVER, BMP, LIPA, EDSON #### [facility] [address] [address] [address] Julia Velasquez METAMYELOCYTE # Normal [facility] Comment on above: Performed By: #### L IVER, BMP, LIPA, EDSON #### [facility] [address] [place] [address] Dr. Julia Velasquez METAMYELOCYTE % Normal [facility] Comment on above: Performed By: #### L IVER, BMP, LIPA, EDSON #### [facility] [address] [address] [address] Julia Velasquez MONOM# 1.21 103/ul Critically high 0.30-0.80 [facility] Comment on above: Performed By: #### L IVER, BMP, LIPA, EDSON #### [facility] [address] [address] [address] Julia Velasquez MONOM% 4.0 % Normal 1.7-12.0 [facility] Comment on above: Performed By: #### L IVER, BMP, LIPA, EDSON #### [facility] [address] [address] [address] Julia Velasquez MPV 11.2 fL Normal 9.5-13.5 [facility] Comment on above: Performed By: #### L IVER, BMP, LIPA, EDSON #### [facility] [address] [address] [address] Julia Velasquez MYELOCYTE # Normal [facility] Comment on above: Performed By: #### L IVER, BMP, LIPA, EDSON #### [facility] [address] [address] [address] Julia Velasquez MYELOCYTE % Normal [facility] Comment on above: Performed By: #### L IVER, BMP, LIPA, EDSON #### [facility] [address] [address] [address] Julia Velasquez NRBC 2 Normal [facility] Comment on above: Performed By: #### L IVER, BMP, LIPA, EDSON #### [facility] [address] [address] [address] Julia Velasquez PLT 273 103/ul Normal 150-450 [facility] Comment on above: Performed By: #### L IVER, BMP, LIPA, EDSON #### [facility] [address] [address] [address] Julia Velasquez RBC 3.25 106/ul Critically low 4.20-5.40 [facility] Comment on above: Performed By: #### L IVER, BMP, LIPA, EDSON #### [facility] [address] [place] [address] Dr. Julia Velasquez RDW 16.0 % Critically high 11.0-15.0 [facility] Comment on above: Performed By: #### L IVER, BMP, LIPA, EDSON #### [facility] [address] [place] [address] Dr. Julia Velasquez SEG # 26.97 103/ul Critically high 1.40-6.50 [facility] Comment on above: Performed By: #### L IVER, BMP, LIPA, EDSON #### [facility] [address] [address] [address] Julia Velasquez SEG % 89.0 % Critically high 43.0-75.0 [facility] Comment on above: Performed By: #### L IVER, BMP, LIPA, EDSON #### [facility] [address] [address] [address] Julia Velasquez WBC 30.3 103/ul Critically high 4.0-11.0 [facility] Comment on above: Performed By: #### L IVER, BMP, LIPA, EDSON #### [facility] [address] [address] [address] Julia Velasquez GI PANEL (PCR)on 12-12-2022 Adenovirus F 40/41 Not detected Normal NOT DETECTED [facility] Comment on above: Performed By: #### L IVER, BMP, LIPA, EDSON #### [facility] [address] [place] [address] Dr. Julia Velasquez Astrovirus Not detected Normal NOT DETECTED [facility] Comment on above: Performed By: #### L IVER, BMP, LIPA, EDSON #### [facility] [address] [place] [address] Dr. Julia Velasquez C. Diff toxin A/B Not detected Normal NOT DETECTED [facility] Comment on above: Performed By: #### L IVER, BMP, LIPA, EDSON #### [facility] [address] [place] [address] Dr. Julia Velasquez Campylobacter Not detected Normal NOT DETECTED [facility] Comment on above: Performed By: #### L IVER, BMP, LIPA, EDSON #### [facility] [address] [place] [address] Dr. Julia Velasquez Cryptosporidium Not detected Normal NOT DETECTED [facility] Comment on above: Performed By: #### L IVER, BMP, LIPA, EDSON #### [facility] [address] [place] [address] Dr. Julia Velasquez Cyclos. Cayetanensis Not detected Normal NOT DETECTED [facility] Comment on above: Performed By: #### L IVER, BMP, LIPA, EDSON #### [facility] [address] [place] [address] Dr. Julia Velasquez E. Coli O157 Not Applicable Normal Not Applicable [facility] Comment on above: Performed By: #### L IVER, BMP, LIPA, EDSON #### [facility] [address] [place] [address] Dr. Julia Velasquez E. histolytica Not detected Normal NOT DETECTED [facility] Comment on above: Performed By: #### L IVER, BMP, LIPA, EDSON #### [facility] [address] [place] [address] Dr. Julia Velasquez EAEC Not detected Normal NOT DETECTED [facility] Comment on above: Performed By: #### L IVER, BMP, LIPA, EDSON #### [facility] [address] [place] [address] Dr. Julia Velasquez EIEC Not detected Normal NOT DETECTED [facility] Comment on above: Performed By: #### L IVER, BMP, LIPA, EDSON #### [facility] [address] [place] [address] Dr. Julia Velasquez EPEC Not detected Normal NOT DETECTED [facility] Comment on above: Performed By: #### L IVER, BMP, LIPA, EDSON #### [facility] [address] [place] [address] Dr. Julia Velasquez ETEC Not detected Normal NOT DETECTED [facility] Comment on above: Performed By: #### L IVER, BMP, LIPA, EDSON #### [facility] [address] [place] [address] Dr. Julia Ham Lamblihu Not detected Normal NOT DETECTED The [facility] Comment on above: Performed By: #### L IVER, BMP, LIPA, EDSON #### [facility] [address] [place] [address] Dr. Julia GARCIAL CONTROLS PASSED Normal [facility] Comment on above: Performed By: #### L IVER, BMP, LIPA, EDSON #### [facility] [address] [place] [address] Dr. Julia MORALES [place] HEADER GI PANEL BACTERIA Normal T [facility] Comment on above: Performed By: #### L IVER, BMP, LIPA, EDSON #### [facility] [address] [place] [address] Dr. Julia MORALESHD ECOLI GI PANEL DIARRHEAGENIC E.COLI / SHIGELLA Normal The [facility] Comment on above: Performed By: #### L IVER, BMP, LIPA, EDSON #### [facility] [address] [place] [address] Dr. Julia DEMPSEY INFO SEE BELOW Normal [facility] Comment on above: Result Comment: EAEC - Enteroaggregative E. Coli EPEC- Enteropathogenic E. Coli ETEC- Enterotoxigenic E. Coli lt/st STEC- Shigella-like toxin-producing E. Coli stx1/stx2 EIEC- Shigella/Enteroinvasive E. Coli Performed By: #### L IVER, BMP, LIPA, EDSON #### [facility] [address] [address] [address] Julia DEMPSEY PARASITES GI PANEL PARASITES Normal [facility] Comment on above: Performed By: #### L IVER, BMP, LIPA, EDSON #### [facility] [address] [place] [address] Dr. Julia DEMPSEY VIRUS GI PANEL VIRUSES Normal [facility] Comment on above: Performed By: #### L IVER, BMP, LIPA, EDSON #### [facility] [address] [place] [address] Dr. Julia Velasquez Norovirus GI/GII Not detected Normal NOT DETECTED The [facility] Comment on above: Performed By: #### L IVER, BMP, LIPA, EDSON #### [facility] [address] [place] [address] Dr. Julia Velasquez P. Shigelloides Not detected Normal NOT DETECTED [facility] Comment on above: Performed By: #### L IVER, BMP, LIPA, EDSON #### [facility] [address] [place] [address] Dr. Julia Velasquez Rotavirus A Not detected Normal NOT DETECTED [facility] Comment on above: Performed By: #### L IVER, BMP, LIPA, EDSON #### [facility] [address] [place] [address] Dr. Julia Velasquez Salmonella Not detected Normal NOT DETECTED The [facility] Comment on above: Performed By: #### L IVER, BMP, LIPA, EDSON #### [facility] [address] [address] [address] Julia Velasquez Sapovirus Not detected Normal NOT DETECTED The [facility] Comment on above: Performed By: #### L IVER, BMP, LIPA, EDSON #### [facility] [address] [place] [address] Dr. Julia Velasquez STEC Not detected Normal NOT DETECTED The [facility] Comment on above: Performed By: #### L IVER, BMP, LIPA, EDSON #### [facility] [address] [place] [address] Dr. Julia Velasquez Vibrio Not detected Normal NOT DETECTED The [facility] Comment on above: Performed By: #### L IVER, BMP, LIPA, EDSON #### [facility] [address] [place] [address] Dr. Julia Velasquez Vibrio Cholera Not detected Normal NOT DETECTED The [facility] Comment on above: Performed By: #### L IVER, BMP, LIPA, EDSON #### [facility] [address] [place] [address] Dr. Julia Velasquez Y. Enterocolitica Not detected Normal NOT DETECTED [facility] Comment on above: Performed By: #### L IVER, BMP, LIPA, EDSON #### [facility] [address] [place] [address] Dr. Julia Velasquez PROF 14(COMP METB)on 023 Albumin [Mass/Vol] 1.4 g/dL Critically low 3.4-5.0 Th [facility] Comment on above: Performed By: #### L IVER, BMP, LIPA, EDSON #### [facility] [address] [place] [address] Dr. Julia Velasquez Albumin/Globulin [Mass ratio] 0.3 {ratio} Normal [facility] Comment on above: Performed By: #### L IVER, BMP, LIPA, EDSON #### [facility] [address] [place] [address] Dr. Julia Velasquez ALP [Catalytic activity/Vol] 89 U/L Normal 46-116 The [facility] Comment on above: Performed By: #### L IVER, BMP, LIPA, EDSON #### [facility] [address] [place] [address] Dr. Julia Velasquez ALT [Catalytic activity/Vol] 27 U/L Normal 14-59 [facility] Comment on above: Performed By: #### L IVER, BMP, LIPA, EDSON #### [facility] [address] [place] [address] Dr. Julia Velasquez Anion gap [Moles/Vol] 14.7 mmol/L Normal [facility] Comment on above: Performed By: #### L IVER, BMP, LIPA, EDSON #### [facility] [address] [place] [address] Dr. Julia Velasquez AST [Catalytic activity/Vol] 58 U/L Critically high 15-37 [facility] Comment on above: Performed By: #### L IVER, BMP, LIPA, EDSON #### [facility] [address] [place] [address] Dr. Julia Velasquez Bilirubin [Mass/Vol] 2.0 mg/dL Critically high 0.2-1.0 [facility] Comment on above: Performed By: #### L IVER, BMP, LIPA, EDSON #### [facility] [address] [place] [address] Dr. Julia Velasquez Calcium [Mass/Vol] 8.8 mg/dL Normal 8.5-10.1 [facility] Comment on above: Performed By: #### L IVER, BMP, LIPA, EDSON #### [facility] [address] [place] [address] Dr. Julia Velasquez Chloride [Moles/Vol] 118 mmol/L Critically high 98-107 [facility] Comment on above: Performed By: #### L IVER, BMP, LIPA, EDSON #### [facility] [address] [place] [address] Dr. Julia Velasquez CO2 [Moles/Vol] 20.7 mmol/L Critically low 21.0-32.0 [facility] Comment on above: Performed By: #### L IVER, BMP, LIPA, EDSON #### [facility] [address] [place] [address] Dr. Jluia Velasquez Creatinine [Mass/Vol] 1.63 mg/dL Critically high 0.55-1.02 [facility] Comment on above: Performed By: #### L IVER, BMP, LIPA, EDSON #### [facility] [address] [address] [address] Julia Velasquez EGFR-AF WALLISIAN 37 mL/min/1.73m2 Critically low >=60 [facility] Comment on above: Performed By: #### L IVER, BMP, LIPA, EDSON #### [facility] [address] [place] [address] Dr. Julia Velasquez EGFR-NON AF WALLISIAN 30 mL/min/1.73m2 Critically low >=60 [facility] Comment on above: Performed By: #### L IVER, BMP, LIPA, EDSON #### [facility] [address] [place] [address] Dr. Julia Velasquez Globulin (S) [Mass/Vol] 4.7 g/dL Normal [facility] Comment on above: Performed By: #### L IVER, BMP, LIPA, EDSON #### [facility] [address] [place] [address] Dr. Julia Velasquez Glucose [Mass/Vol] 130 mg/dL Critically high 74-106 T [facility] Comment on above: Performed By: #### L IVER, BMP, LIPA, EDSON #### [facility] [address] [place] [address] Dr. Julia Velasquez Potassium [Moles/Vol] 4.4 mmol/L Normal 3.5-5.1 [facility] Comment on above: Performed By: #### L IVER, BMP, LIPA, EDSON #### [facility] [address] [place] [address] Dr. Julia Velasquez Protein [Mass/Vol] 6.1 g/dL Critically low 6.4-8.2 Th [facility] Comment on above: Performed By: #### L IVER, BMP, LIPA, EDSON #### [facility] [address] [address] [address] Julia Velasquez Sodium [Moles/Vol] 149 mmol/L Critically high 136-145 T [facility] Comment on above: Performed By: #### L IVER, BMP, LIPA, EDSON #### [facility] [address] [place] [address] Dr. Julia Velasquez Urea nitrogen [Mass/Vol] 56.0 mg/dL Critically high 7.0-18.0 [facility] Comment on above: Performed By: #### L IVER, BMP, LIPA, EDSON #### [facility] [address] [place] [address] Dr. Julia Velasquez Urea nitrogen/Creatinine [Mass ratio] 34.4 mg/mg Normal [facility] Comment on above: Performed By: #### L IVER, BMP, LIPA, EDSON #### [facility] [address] [place] [address] Dr. Julia Velasquez RESPIRATORY PANEL PLUSon Adenovirus Not detected Normal NOT DETECTED The [facility] Comment on above: Performed By: #### L IVER, BMP, LIPA, EDSON #### [facility] [address] [place] [address] Dr. Julia Crystal. Parapertusis Not detected Normal NOT DETECTED [facility] Comment on above: Performed By: #### L IVER, BMP, LIPA, EDSON #### [facility] [address] [place] [address] Dr. Julia Crystal. Pertussis Not detected Normal NOT DETECTED [facility] Comment on above: Performed By: #### L IVER, BMP, LIPA, EDSON #### [facility] [address] [place] [address] Dr. Julia Velasquez Chlamydia Pneumoniae Not detected Normal NOT DETECTED The [facility] Comment on above: Performed By: #### L IVER, BMP, LIPA, EDSON #### [facility] [address] [place] [address] Dr. Julia Velasquez Coronavirus 229E Not detected Normal NOT DETECTED The [facility] Comment on above: Performed By: #### L IVER, BMP, LIPA, EDSON #### [facility] [address] [place] [address] Dr. Julia Velasquez Coronavirus HKU1 Not detected Normal NOT DETECTED The [facility] Comment on above: Performed By: #### L IVER, BMP, LIPA, EDSON #### [facility] [address] [place] [address] Dr. Julia Velasquez Coronavirus NL63 Not detected Normal NOT DETECTED The [facility] Comment on above: Performed By: #### L IVER, BMP, LIPA, EDSON #### [facility] [address] [place] [address] Dr. Julia Velasquez Coronavirus OC43 Not detected Normal NOT DETECTED The [facility] Comment on above: Performed By: #### L IVER, BMP, LIPA, EDSON #### [facility] [address] [place] [address] Dr. Julia Velasquez Influenza A H1 Not detected Normal NOT DETECTED [facility] Comment on above: Performed By: #### L IVER, BMP, LIPA, EDSON #### [facility] [address] [place] [address] Dr. Julia Velasquez Influenza A H1 2009 Not detected Normal NOT DETECTED [facility] Comment on above: Performed By: #### L IVER, BMP, LIPA, EDSON #### [facility] [address] [place] [address] Dr. Julia Velasquez Influenza A H3 Not detected Normal NOT DETECTED [facility] Comment on above: Performed By: #### L IVER, BMP, LIPA, EDSON #### [facility] [address] [place] [address] Dr. Julia Velasquez Influenza B Not detected Normal NOT DETECTED [facility] Comment on above: Performed By: #### L IVER, BMP, LIPA, EDSON #### [facility] [address] [place] [address] Dr. Julia Velasquez Metapneumovirus Not detected Normal NOT DETECTED [facility] Comment on above: Performed By: #### L IVER, BMP, LIPA, EDSON #### [facility] [address] [place] [address] Dr. Julia Velasquez Mycoplas. Pneumoniae Not detected Normal NOT DETECTED The [facility] Comment on above: Performed By: #### L IVER, BMP, LIPA, EDSON #### [facility] [address] [address] [address] Julia Velasquez Parainfluenza 1 Not detected Normal NOT DETECTED [facility] Comment on above: Performed By: #### L IVER, BMP, LIPA, EDSON #### [facility] [address] [address] [address] Julia Velasquez Parainfluenza 2 Not detected Normal NOT DETECTED [facility] Comment on above: Performed By: #### L IVER, BMP, LIPA, EDSON #### [facility] [address] [place] [address] Dr. Julia Velasquez Parainfluenjames 3 Not detected Normal NOT DETECTED [facility] Comment on above: Performed By: #### L IVER, BMP, LIPA, EDSON #### [facility] [address] [place] [address] Dr. Julia Velasquez Parainfluenza 4 Not detected Normal NOT DETECTED [facility] Comment on above: Performed By: #### L IVER, BMP, LIPA, EDSON #### [facility] [address] [place] [address] Dr. Julia Velasquez Rhino/Enterovirus Not detected Normal NOT DETECTED [facility] Comment on above: Performed By: #### L IVER, BMP, LIPA, EDSON #### [facility] [address] [place] [address] Dr. Julia GRAHAM Header 1 RESPIRATORY PANEL: VIRUSES Normal [facility] Comment on above: Performed By: #### L IVER, BMP, LIPA, EDSON #### [facility] [address] [address] [address] Julia Velasquez RP2 Header 2 RESPIRATORY PANEL: BACTERIA Normal [facility] Comment on above: Performed By: #### L IVER, BMP, LIPA, EDSON #### [facility] [address] [place] [address] Dr. Julia Velasquez RSV Not detected Normal NOT DETECTED [facility] Comment on above: Performed By: #### L IVER, NANCY, LIPA, EDSON #### [facility] [address] [place] [address] Dr. Julia Velasquez SARS-CoV-2 (COVID-19) RNA MARIO+probe Ql (Unsp spec) Not detected Normal NOT DETECTED [facility] Comment on above: Performed By: #### L IVER, NANCY, LIPA, EDSON #### [facility] [address] [place] [address] Dr. Julia Velasquez CBC AUTO DIFFon 12-11-2022 BASO # 0.1 103/ul Normal 0.0-0.1 [facility] Comment on above: Performed By: #### C MP #### [facility] [address] [place] [address] Dr. Julia Velasquez Basophils/100 WBC (Bld) 0.4 % Normal 0.2-2.0 [facility] Comment on above: Performed By: #### C MP #### [facility] [address] [place] [address] Dr. Julia Velasquez EO # 0.0 103/ul Normal 0.0-0.7 [facility] Comment on above: Performed By: #### C MP #### [facility] [address] [place] [address] Dr. Julia Velasquez Eosinophils/100 WBC (Bld) 0.0 % Critically low 0.9-7.0 [facility] Comment on above: Performed By: #### C MP #### [facility] [address] [place] [address] Dr. Julia Velasquez Erythrocyte distribution width (RBC) [Ratio] 15.9 % Critically high 11.0-15.0 [facility] Comment on above: Performed By: #### C MP #### [facility] [address] [place] [address] Dr. Julia Velasquez Hematocrit (Bld) [Volume fraction] 34.4 % Critically low 36.0-48.0 [facility] Comment on above: Performed By: #### C MP #### [facility] [address] [place] [address] Dr. Julia Velasquez Hemoglobin (Bld) [Mass/Vol] 11.1 g/dL Critically low 12.0-16.0 [facility] Comment on above: Performed By: #### C MP #### [facility] [address] [address] [address] Julia Velasquez IG # 0.75 10e3/ul Critically high 0.00-0.03 [facility] Comment on above: Performed By: #### C MP #### [facility] [address] [address] [address] Julia Velasquez IG % 2.7 % Critically high 0.0-0.5 [facility] Comment on above: Performed By: #### C MP #### [facility] [address] [place] [address] Dr. Julia Velasquez LYMPH # 0.7 103/ul Critically low 1.2-3.8 [facility] Comment on above: Performed By: #### C MP #### [facility] [address] [place] [address] Dr. Julia Velasquez Lymphocytes/100 WBC (Bld) 2.4 % Critically low 20.5-60.0 [facility] Comment on above: Performed By: #### C MP #### [facility] [address] [place] [address] Dr. Julia Velasquez MANUAL DIFF REQ NO Normal [facility] Comment on above: Performed By: #### C MP #### [facility] [address] [place] [address] Dr. Julia Velasquez MCH (RBC) [Entitic mass] 29.2 pg Normal 26.7-34.0 [facility] Comment on above: Performed By: #### C MP #### [facility] [address] [place] [address] Dr. Julia Velasquez MCHC (RBC) [Mass/Vol] 32.3 g/dL Normal 29.9-35.2 [facility] Comment on above: Performed By: #### C MP #### [facility] [address] [place] [address] Dr. Julia Velasquez MCV (RBC) [Entitic vol] 90.5 fL Normal 81.0-99.0 [facility] Comment on above: Performed By: #### C MP #### [facility] [address] [place] [address] Dr. Julia Velasquez MONO # 0.7 103/ul Normal 0.3-0.8 [facility] Comment on above: Performed By: #### C MP #### [facility] [address] [place] [address] Dr. Julia Velasquez Monocytes/100 WBC (Bld) 2.6 % Normal 1.7-12.0 [facility] Comment on above: Performed By: #### C MP #### [facility] [address] [place] [address] Dr. Julia Velasquez NEUT # 25.6 103/ul Critically high 1.4-6.5 [facility] Comment on above: Performed By: #### C MP #### [facility] [address] [place] [address] Dr. Julia Velasquez Neutrophils/100 WBC (Bld) 91.9 % Critically high 43.0-75.0 [facility] Comment on above: Performed By: #### C MP #### [facility] [address] [place] [address] Dr. Julia Velasquez Platelet mean volume (Bld) [Entitic vol] 11.1 fL Normal 9.5-13.5 [facility] Comment on above: Performed By: #### C MP #### [facility] [address] [place] [address] Dr. Julia Velasquez PLT 240 103/ul Normal 150-450 [facility] Comment on above: Performed By: #### C MP #### [facility] [address] [place] [address] Dr. Julia Velasquez RBC 3.80 106/ul Critically low 4.20-5.40 [facility] Comment on above: Performed By: #### C MP #### [facility] [address] [place] [address] Dr. Julia Velasquez WBC 27.9 103/ul Critically high 4.0-11.0 [facility] Comment on above: Performed By: #### C MP #### [facility] [address] [place] [address] Dr. Julia Velasquez CBC W MANUAL DIFFon 12-12-19 23 ATYPICAL LYMPH # Normal [facility] Comment on above: Performed By: #### L IVER, BMP, LIPA, EDSON #### [facility] [address] [place] [address] Dr. Julia Velasquez ATYPICAL LYMPH % Normal [facility] Comment on above: Performed By: #### L IVER, BMP, LIPA, EDSON #### [facility] [address] [place] [address] Dr. Julia Velasquez BAND # 3.0 103/ul Critically high 0.0-0.3 [facility] Comment on above: Performed By: #### L IVER, BMP, LIPA, EDSON #### [facility] [address] [place] [address] Dr. Julia Velasquez BAND % 9 % Critically high 0-5 [facility] Comment on above: Performed By: #### L IVER, BMP, LIPA, EDSON #### [facility] [address] [place] [address] Dr. Julia Velasquez BASOM # 0.00 103/ul Normal 0.00-0.10 [facility] Comment on above: Performed By: #### L IVER, BMP, LIPA, EDSON #### [facility] [address] [place] [address] Dr. Julia Velasquez BASOM % 0.0 % Critically low 0.2-2.0 [facility] Comment on above: Performed By: #### L IVER, BMP, LIPA, EDSON #### [facility] [address] [place] [address] Dr. Julia Velasquez BLAST # Normal [facility] Comment on above: Performed By: #### L IVER, BMP, LIPA, EDSON #### [facility] [address] [place] [address] Dr. Julia Velasquez BLAST % Normal [facility] Comment on above: Performed By: #### L IVER, BMP, LIPA, EDSON #### [facility] [address] [place] [address] Dr. Julia Velasquez CORRECTED WBC Normal 4.0-11.0 [facility] Comment on above: Performed By: #### L IVER, BMP, LIPA, EDSON #### [facility] [address] [place] [address] Dr. Julia Velasquez EOS # 0.00 103/ul Normal 0.00-0.70 [facility] Comment on above: Performed By: #### L IVER, BMP, LIPA, EDSON #### [facility] [address] [place] [address] Dr. Julia Velasquez EOS% 0.0 % Critically low 0.9-7.0 [facility] Comment on above: Performed By: #### L IVER, BMP, LIPA, EDSON #### [facility] [address] [place] [address] Dr. Julia Velasquez HCT 30.7 % Critically low 36.0-48.0 [facility] Comment on above: Performed By: #### L IVER, BMP, LIPA, EDSON #### [facility] [address] [place] [address] Dr. Julia Velasquez HGB 10.1 g/dl Critically low 12.0-16.0 [facility] Comment on above: Performed By: #### L IVER, BMP, LIPA, EDSON #### [facility] [address] [place] [address] Dr. Julia Velasquez LYMPHM # 0.67 103/ul Critically low 1.20-3.80 [facility] Comment on above: Performed By: #### L IVER, BMP, LIPA, EDSON #### [facility] [address] [place] [address] Dr. Julia Velasqeuz LYMPHM% 2.0 % Critically low 20.5-60.0 [facility] Comment on above: Performed By: #### L IVER, BMP, LIPA, EDSON #### [facility] [address] [place] [address] Dr. Julia Velasquez MCH 29.5 pg Normal 26.7-34.0 [facility] Comment on above: Performed By: #### L IVER, BMP, LIPA, EDSON #### [facility] [address] [address] [address] Julia Velasquez MCHC 32.9 g/dl Normal 29.9-35.2 [facility] Comment on above: Performed By: #### L IVER, BMP, LIPA, EDSON #### [facility] [address] [address] [address] Julia Velasquez MCV 89.8 fL Normal 81.0-99.0 [facility] Comment on above: Performed By: #### L IVER, BMP, LIPA, EDSON #### [facility] [address] [place] [address] Dr. Julia Velasquez METAMYELOCYTE # Normal [facility] Comment on above: Performed By: #### L IVER, BMP, LIPA, EDSON #### [facility] [address] [place] [address] Dr. Julia Velasquez METAMYELOCYTE % Normal [facility] Comment on above: Performed By: #### L IVER, BMP, LIPA, EDSON #### [facility] [address] [address] [address] Julia Velasquez MONOM# 0.33 103/ul Normal 0.30-0.80 [facility] Comment on above: Performed By: #### L IVER, BMP, LIPA, EDSON #### [facility] [address] [place] [address] Dr. Julia Velasquez MONOM% 1.0 % Critically low 1.7-12.0 [facility] Comment on above: Performed By: #### L IVER, BMP, LIPA, EDSON #### [facility] [address] [address] [address] Julia Velasquez MPV 10.1 fL Normal 9.5-13.5 [facility] Comment on above: Performed By: #### L IVER, BMP, LIPA, EDSON #### [facility] [address] [address] [address] Julia Velasquez MYELOCYTE # Normal [facility] Comment on above: Performed By: #### L IVER, BMP, LIPA, EDSON #### [facility] [address] [place] [address] Dr. Julia Velasquez MYELOCYTE % Normal [facility] Comment on above: Performed By: #### L IVER, BMP, LIPA, EDSON #### [facility] [address] [address] [address] Julia Velasquez NRBC Normal [facility] Comment on above: Performed By: #### L IVER, BMP, LIPA, EDSON #### [facility] [address] [place] [address] Dr. Julia Velasquez PLT 256 103/ul Normal 150-450 [facility] Comment on above: Performed By: #### L IVER, BMP, LIPA, EDSON #### [facility] [address] [place] [address] Dr. Julia Velasquez RBC 3.42 106/ul Critically low 4.20-5.40 [facility] Comment on above: Performed By: #### L IVER, BMP, LIPA, EDSON #### [facility] [address] [place] [address] Dr. Julia Velasquez RDW 15.9 % Critically high 11.0-15.0 [facility] Comment on above: Performed By: #### L IVER, BMP, LIPA, EDSON #### [facility] [address] [place] [address] Dr. Julia Velasquez SEG # 29.39 103/ul Critically high 1.40-6.50 [facility] Comment on above: Performed By: #### L IVER, BMP, LIPA, EDSON #### [facility] [address] [place] [address] Dr. Julia Velasquez SEG % 88.0 % Critically high 43.0-75.0 [facility] Comment on above: Performed By: #### L IVER, BMP, LIPA, EDSON #### [facility] [address] [place] [address] Dr. Julia Velasquez WBC 33.4 103/ul Critically high 4.0-11.0 [facility] Comment on above: Performed By: #### L NANCY MONDRAGON LIPA, AMY #### [facility] [address] [place] [address] Dr. Julia Velasquez CULTURE BLOODon 12-11-2022 Microscopic examination of blood, culture Culture Observations: NO GROWTH AT 5 DAYS. Normal [facility] Comment on above: Performed By: #### C MP #### [facility] [address] [place] [address] Dr. Julia Velasquez Microscopic examination of blood, culture Culture Observations: NO GROWTH AT 5 DAYS. [facility] Comment on above: Performed By: #### C MP #### [facility] [address] [place] [address] Dr. Julia Velasquez PROF 14(COMP METB)on 023 Albumin [Mass/Vol] 1.9 g/dL Critically low 3.4-5.0 [facility] Comment on above: Performed By: #### C MP #### [facility] [address] [place] [address] Dr. Julia Velasquez Albumin/Globulin [Mass ratio] 0.5 {ratio} [facility] Comment on above: Performed By: #### C MP #### [facility] [address] [place] [address] Dr. Julia Velasquez ALP [Catalytic activity/Vol] 94 U/L Normal 46-116 [facility] Comment on above: Performed By: #### C MP #### [facility] [address] [place] [address] Dr. Julia Velasquez ALT [Catalytic activity/Vol] 34 U/L Normal 14-59 [facility] Comment on above: Performed By: #### C MP #### [facility] [address] [place] [address] Dr. Julia Velasquez Anion gap [Moles/Vol] 19.9 mmol/L [facility] Comment on above: Performed By: #### C MP #### [facility] [address] [address] [address] Julia Velasquez AST [Catalytic activity/Vol] 82 U/L Critically high 15-37 [facility] Comment on above: Performed By: #### C MP #### [facility] [address] [address] [address] Julia Velasquez Bilirubin [Mass/Vol] 3.0 mg/dL Critically high 0.2-1.0 [facility] Comment on above: Performed By: #### C MP #### [facility] [address] [address] [address] Julia Velasquez Calcium [Mass/Vol] 8.2 mg/dL Critically low 8.5-10.1 [facility] Comment on above: Performed By: #### C MP #### [facility] [address] [address] [address] Julia Velasquez Chloride [Moles/Vol] 112 mmol/L Critically high 98-107 [facility] Comment on above: Performed By: #### C MP #### [facility] [address] [address] [address] Julia Velasquez CO2 [Moles/Vol] 18.7 mmol/L Critically low 21.0-32.0 [facility] Comment on above: Performed By: #### C MP #### [facility] [address] [address] [address] Julia Velasquez Creatinine [Mass/Vol] 1.75 mg/dL Critically high 0.55-1.02 [facility] Comment on above: Performed By: #### C MP #### [facility] [address] [address] [address] Julia Velasquez EGFR-AF WALLISIAN 34 mL/min/1.73m2 Critically low >=60 [facility] Comment on above: Performed By: #### C MP #### [facility] [address] [address] [address] Julia Velasquez EGFR-NON AF WALLISIAN 28 mL/min/1.73m2 Critically low >=60 [facility] Comment on above: Performed By: #### C MP #### [facility] [address] [address] [address] Julia Velasquez Globulin (S) [Mass/Vol] 3.6 g/dL Normal [facility] Comment on above: Performed By: #### C MP #### [facility] [address] [address] [address] Julia Velasquez Glucose [Mass/Vol] 95 mg/dL Normal 74-106 [facility] Comment on above: Performed By: #### C MP #### [facility] [address] [address] [address] Julia Velasquez Potassium [Moles/Vol] 4.6 mmol/L Normal 3.5-5.1 [facility] Comment on above: Performed By: #### C MP #### [facility] [address] [address] [address] Julia Velasquez Protein [Mass/Vol] 5.5 g/dL Critically low 6.4-8.2 [facility] Comment on above: Performed By: #### C MP #### [facility] [address] [address] [address] Julia Velasquez Sodium [Moles/Vol] 146 mmol/L Critically high 136-145 [facility] Comment on above: Performed By: #### C MP #### [facility] [address] [address] [address] Julia Velasquez Urea nitrogen [Mass/Vol] 58.0 mg/dL Critically high 7.0-18.0 [facility] Comment on above: Performed By: #### C MP #### [facility] [address] [address] [address] Julia Velasquez Urea nitrogen/Creatinine [Mass ratio] 33.1 mg/mg Normal [facility] Comment on above: Performed By: #### C MP #### [facility] [address] [address] [address] Julia Velasquez XR CHEST 2 Von [...] BUCKY CRAIG Date: 2022-12-11 11:52 Normal [facility] CBC W MANUAL DIFFon 12-11-19 23 ATYPICAL LYMPH # 0.18 103/ul Normal [facility] Comment on above: Performed By: #### C BCJACKLYN #### [facility] [address] [place] [address] Dr. Julia Velasquez ATYPICAL LYMPH % 1 % Normal [facility] Comment on above: Performed By: #### C BCMAN #### [facility] [address] [place] [address] Dr. Julia Velasquez BAND # 0.0 103/ul Normal 0.0-0.3 [facility] Comment on above: Performed By: #### C BCMAN #### [facility] [address] [place] [address] Dr. Julia Velasquez BAND % 0 % Normal 0-5 [facility] Comment on above: Performed By: #### C BCMAN #### [facility] [address] [address] [address] Julia Velasquez BASOM # 0.00 103/ul Normal 0.00-0.10 [facility] Comment on above: Performed By: #### C BCMAN #### [facility] [address] [place] [address] Dr. Julia Velasquez BASOM % 0.0 % Critically low 0.2-2.0 [facility] Comment on above: Performed By: #### C BCMAN #### [facility] [address] [address] [address] Julia Velasquez BLAST # Normal [facility] Comment on above: Performed By: #### C BCMAN #### [facility] [address] [address] [address] Julia Velasquez BLAST % Normal [facility] Comment on above: Performed By: #### C BCJACKLYN #### [facility] [address] [address] [address] Julia Velasquez CORRECTED WBC Normal 4.0-11.0 [facility] Comment on above: Performed By: #### C BCMAN #### [facility] [address] [address] [address] Julia Velasquez EOS # 0.00 103/ul Normal 0.00-0.70 [facility] Comment on above: Performed By: #### C BCJACKLYN #### [facility] [address] [place] [address] Dr. Julia Velasquez EOS% 0.0 % Critically low 0.9-7.0 [facility] Comment on above: Performed By: #### C BCJACKLYN #### [facility] [address] [address] [address] Julia Velasquez HCT 31.8 % Critically low 36.0-48.0 [facility] Comment on above: Performed By: #### C BCJACKLYN #### [facility] [address] [address] [address] Julia Velasquez HGB 10.4 g/dl Critically low 12.0-16.0 [facility] Comment on above: Performed By: #### C BCJACKLYN #### [facility] [address] [address] [address] Julia Velasquez LYMPHM # 0.35 103/ul Critically low 1.20-3.80 [facility] Comment on above: Performed By: #### C BCMAN #### [facility] [address] [place] [address] Dr. Julia Velasquez LYMPHM% 2.0 % Critically low 20.5-60.0 [facility] Comment on above: Performed By: #### C BRYNN #### [facility] [address] [place] [address] Dr. Julia Velasquez MCH 29.3 pg Normal 26.7-34.0 [facility] Comment on above: Performed By: #### C BRYNN #### [facility] [address] [place] [address] Dr. Julia Velasquez MCHC 32.7 g/dl Normal 29.9-35.2 [facility] Comment on above: Performed By: #### C BRYNN #### [facility] [address] [place] [address] Dr. Julia Velasquez MCV 89.6 fL Normal 81.0-99.0 [facility] Comment on above: Performed By: #### C BRYNN #### [facility] [address] [place] [address] Dr. Julia Velasquez METAMYELOCYTE # Normal [facility] Comment on above: Performed By: #### C BRYNN #### [facility] [address] [place] [address] Dr. Julia Velasquez METAMYELOCYTE % Normal [facility] Comment on above: Performed By: #### C BRYNN #### [facility] [address] [place] [address] Dr. Julia Velasquez MONOM# 0.88 103/ul Critically high 0.30-0.80 [facility] Comment on above: Performed By: #### C BRYNN #### [facility] [address] [place] [address] Dr. Julia Velasquez MONOM% 5.0 % Normal 1.7-12.0 [facility] Comment on above: Performed By: #### C BRYNN #### [facility] [address] [place] [address] Dr. Julia Velasquez MPV 10.6 fL Normal 9.5-13.5 [facility] Comment on above: Performed By: #### C BRYNN #### [facility] [address] [place] [address] Dr. Julia Velasquez MYELOCYTE # Normal [facility] Comment on above: Performed By: #### C BRYNN #### [facility] [address] [address] [address] Julia Velasquez MYELOCYTE % Normal [facility] Comment on above: Performed By: #### C BRYNN #### [facility] [address] [address] [address] Julia Velasquez NRBC Normal [facility] Comment on above: Performed By: #### C BRYNN #### [facility] [address] [address] [address] Julia Velasquez PLT 231 103/ul Normal 150-450 [facility] Comment on above: Performed By: #### C BRYNN #### [facility] [address] [address] [address] Julia Velasquez RBC 3.55 106/ul Critically low 4.20-5.40 [facility] Comment on above: Performed By: #### C BRYNN #### [facility] [address] [address] [address] Julia Velasquez RDW 15.1 % Critically high 11.0-15.0 [facility] Comment on above: Performed By: #### C BRYNN #### [facility] [address] [address] [address] Julia Velasquez SEG # 16.19 103/ul Critically high 1.40-6.50 [facility] Comment on above: Performed By: #### C BRYNN #### [facility] [address] [address] [address] Julia Velasquez SEG % 92.0 % Critically high 43.0-75.0 [facility] Comment on above: Performed By: #### C BRYNN #### [facility] [address] [address] [address] Julia Velasquez WBC 17.6 103/ul Critically high 4.0-11.0 [facility] Comment on above: Performed By: #### C BRYNN #### [facility] [address] [address] [address] Julia Velasquez FERRITINon 12-10-2022 Ferritin [Mass/Vol] 450.0 ng/mL Critically high 8.0-252.0 [facility] Comment on above: Performed By: #### C MP #### [facility] [address] [place] [address] Dr. Julia Velasquez IRON AND TIBCon 12-10-2022 % SATURATION 5.6 % Normal [facility] Comment on above: Performed By: #### C MP #### [facility] [address] [place] [address] Dr. Julia Velasquez Iron [Mass/Vol] 11.0 ug/dL Critically low 50.0-170.0 [facility] Comment on above: Performed By: #### C MP #### [facility] [address] [place] [address] Dr. Julia Velasquez TIBC DIRECT 195.0 ug/dL Critically low 250.0-450.0 [facility] Comment on above: Performed By: #### C MP #### [facility] [address] [place] [address] Dr. Julia Velasquez PROF 14(COMP METB)on 023 Albumin [Mass/Vol] 2.0 g/dL Critically low 3.4-5.0 [facility] Comment on above: Performed By: #### C MP #### [facility] [address] [place] [address] Dr. Julia Velasquez Albumin/Globulin [Mass ratio] 0.4 {ratio} Normal [facility] Comment on above: Performed By: #### C MP #### [facility] [address] [place] [address] Dr. Julia Velasquez ALP [Catalytic activity/Vol] 87 U/L Normal 46-116 [facility] Comment on above: Performed By: #### C MP #### [facility] [address] [place] [address] Dr. Julia Velasquez ALT [Catalytic activity/Vol] 32 U/L Normal 14-59 [facility] Comment on above: Performed By: #### C MP #### [facility] [address] [place] [address] Dr. Julia Velasquez Anion gap [Moles/Vol] 16.2 mmol/L Normal [facility] Comment on above: Performed By: #### C MP #### [facility] [address] [address] [address] Julia Velasquez AST [Catalytic activity/Vol] 50 U/L Critically high 15-37 [facility] Comment on above: Performed By: #### C MP #### [facility] [address] [address] [address] Julia Velasquez Bilirubin [Mass/Vol] 1.7 mg/dL Critically high 0.2-1.0 [facility] Comment on above: Performed By: #### C MP #### [facility] [address] [address] [address] Julia Velasquez Calcium [Mass/Vol] 8.6 mg/dL Normal 8.5-10.1 [facility] Comment on above: Performed By: #### C MP #### [facility] [address] [address] [address] Julia Velasquez Chloride [Moles/Vol] 107 mmol/L Normal 98-107 [facility] Comment on above: Performed By: #### C MP #### [facility] [address] [place] [address] Dr. Julia Velasquez CO2 [Moles/Vol] 22.1 mmol/L Normal 21.0-32.0 [facility] Comment on above: Performed By: #### C MP #### [facility] [address] [address] [address] Julia Velasquez Creatinine [Mass/Vol] 2.38 mg/dL Critically high 0.55-1.02 [facility] Comment on above: Performed By: #### C MP #### [facility] [address] [address] [address] Julia Velasquez EGFR-AF WALLISIAN 24 mL/min/1.73m2 Critically low >=60 [facility] Comment on above: Performed By: #### C MP #### [facility] [address] [address] [address] Julia Velasquez EGFR-NON AF WALLISIAN 20 mL/min/1.73m2 Critically low >=60 [facility] Comment on above: Performed By: #### C MP #### [facility] [address] [place] [address] Dr. Julia Velasquez Globulin (S) [Mass/Vol] 4.7 g/dL Normal [facility] Comment on above: Performed By: #### C MP #### [facility] [address] [address] [address] Julia Velasquez Glucose [Mass/Vol] 116 mg/dL Critically high 74-106 [facility] Comment on above: Performed By: #### C MP #### [facility] [address] [address] [address] Julia Velasquez Potassium [Moles/Vol] 3.3 mmol/L Critically low 3.5-5.1 [facility] Comment on above: Performed By: #### C MP #### [facility] [address] [place] [address] Dr. Julia Velasquez Protein [Mass/Vol] 6.7 g/dL Normal 6.4-8.2 [facility] Comment on above: Performed By: #### C MP #### [facility] [address] [place] [address] Dr. Julia Velasquez Sodium [Moles/Vol] 142 mmol/L Normal 136-145 [facility] Comment on above: Performed By: #### C MP #### [facility] [address] [place] [address] Dr. Julia Velasquez Urea nitrogen [Mass/Vol] 57.0 mg/dL Critically high 7.0-18.0 [facility] Comment on above: Performed By: #### C MP #### [facility] [address] [address] [address] Julia Velasquez Urea nitrogen/Creatinine [Mass ratio] 23.9 mg/mg Normal [facility] Comment on above: Performed By: #### C MP #### [facility] [address] [place] [address] Dr. Julia Velasquez AMYLASEon 12-09-2022 Amylase [Catalytic activity/Vol] 18 U/L Critically low 25-115 [facility] Comment on above: Performed By: #### L IVER, BMP, LIPA, EDSON #### [facility] [address] [place] [address] Dr. Julia Velasquez CBC W MANUAL DIFFon 12-10-19 23 ATYPICAL LYMPH # Normal [facility] Comment on above: Performed By: #### C MP #### [facility] [address] [place] [address] Dr. Julia Velasquez ATYPICAL LYMPH % Normal [facility] Comment on above: Performed By: #### C MP #### [facility] [address] [place] [address] Dr. Julia Velasquez BAND # 0.8 103/ul Critically high 0.0-0.3 [facility] Comment on above: Performed By: #### C MP #### [facility] [address] [place] [address] Dr. Julia Velasquez BAND % 4 % Normal 0-5 [facility] Comment on above: Performed By: #### C MP #### [facility] [address] [place] [address] Dr. Julia Velasquez BASOM # 0.00 103/ul Normal 0.00-0.10 [facility] Comment on above: Performed By: #### C MP #### [facility] [address] [place] [address] Dr. Julia Velasquez BASOM % 0.0 % Critically low 0.2-2.0 [facility] Comment on above: Performed By: #### C MP #### [facility] [address] [place] [address] Dr. Julia Velasquez BLAST # Normal [facility] Comment on above: Performed By: #### C MP #### [facility] [address] [place] [address] Dr. Julia Velasquez BLAST % Normal [facility] Comment on above: Performed By: #### C MP #### [facility] [address] [place] [address] Dr. Julia Velasquez CORRECTED WBC Normal 4.0-11.0 [facility] Comment on above: Performed By: #### C MP #### [facility] [address] [address] [address] Jluia Velasquez EOS # 0.00 103/ul Normal 0.00-0.70 [facility] Comment on above: Performed By: #### C MP #### [facility] [address] [address] [address] Julia Velasquez EOS% 0.0 % Critically low 0.9-7.0 [facility] Comment on above: Performed By: #### C MP #### [facility] [address] [address] [address] Julia Velasquez HCT 27.2 % Critically low 36.0-48.0 The [facility] Comment on above: Performed By: #### C MP #### [facility] [address] [address] [address] Julia Velasquez HGB 8.9 g/dl Critically low 12.0-16.0 [facility] Comment on above: Performed By: #### C MP #### [facility] [address] [address] [address] Julia Velasquez LYMPHM # 0.99 103/ul Critically low 1.20-3.80 [facility] Comment on above: Performed By: #### C MP #### [facility] [address] [address] [address] Julia Velasquez LYMPHM% 5.0 % Critically low 20.5-60.0 The [facility] Comment on above: Performed By: #### C MP #### [facility] [address] [address] [address] Julia Velasquez MCH 29.3 pg Normal 26.7-34.0 [facility] Comment on above: Performed By: #### C MP #### [facility] [address] [address] [address] Julia Velasquez MCHC 32.7 g/dl Normal 29.9-35.2 [facility] Comment on above: Performed By: #### C MP #### [facility] [address] [place] [address] Dr. Julia Velasquez MCV 89.5 fL Normal 81.0-99.0 [facility] Comment on above: Performed By: #### C MP #### [facility] [address] [place] [address] Dr. Julia Velasquez METAMYELOCYTE # Normal [facility] Comment on above: Performed By: #### C MP #### [facility] [address] [place] [address] Dr. Julia Velasquez METAMYELOCYTE % Normal [facility] Comment on above: Performed By: #### C MP #### [facility] [address] [place] [address] Dr. Julia Velasquez MONOM# 0.59 103/ul Normal 0.30-0.80 [facility] Comment on above: Performed By: #### C MP #### [facility] [address] [place] [address] Dr. Julia Velasquez MONOM% 3.0 % Normal 1.7-12.0 [facility] Comment on above: Performed By: #### C MP #### [facility] [address] [place] [address] Dr. Julia Velasquez MPV 10.9 fL Normal 9.5-13.5 [facility] Comment on above: Performed By: #### C MP #### [facility] [address] [place] [address] Dr. Julia Velasquez MYELOCYTE # Normal [facility] Comment on above: Performed By: #### C MP #### [facility] [address] [place] [address] Dr. Julia Velasquez MYELOCYTE % Normal [facility] Comment on above: Performed By: #### C MP #### [facility] [address] [place] [address] Dr. Julia Velasquez NRBC Normal [facility] Comment on above: Performed By: #### C MP #### [facility] [address] [place] [address] Dr. Julia Velasquez PLT 268 103/ul Normal 150-450 [facility] Comment on above: Performed By: #### C MP #### [facility] [address] [place], [place] [address] Dr. Julia Velasquez RBC 3.04 106/ul Critically low 4.20-5.40 [facility] Comment on above: Performed By: #### C MP #### [facility] [address] [place], [place] [address] Dr. Julia Velasquez RDW 15.0 % Normal 11.0-15.0 [facility] Comment on above: Performed By: #### C MP #### [facility] [address] [place], [place] [address] Dr. Julia Velasquez SEG # 17.42 103/ul Critically high 1.40-6.50 [facility] Comment on above: Performed By: #### C MP #### [facility] [address] [address] [address] Julia Velasquez SEG % 88.0 % Critically high 43.0-75.0 [facility] Comment on above: Performed By: #### C MP #### [facility] [address] [address] [address] Julia Velasquez WBC 19.8 103/ul Critically high 4.0-11.0 [facility] Comment on above: Performed By: #### C MP #### [facility] [address] [address] ABD/PELVIS WO CONon [...] RAKESH MANNING Date: 2022-12-09 19:43 Normal [facility] CT FACIAL BONES WO CONon CT [...] KELVIN MCLAUGHLIN Date: 2022-12-09 20:18 Normal [facility] SARS-CoV-2 (COVID-19) RNA MARIO+probe Ql (Unsp spec) Not detected Normal NOT DETECTED [facility] Comment on above: Result Comment: When [...] for this test is supported by the [place] of Health and Human Service's declaration that [...] #### L IVER, BMP, LIPA, EDSON #### [facility] [address] [place] [address] Dr. Julia Velasquez LIPASEon 12-09-2022 Lipase [Catalytic activity/Vol] 86.0 U/L Normal 73.0-393.0 [facility] Comment on above: Performed By: #### L IVER, BMP, LIPA, EDSON #### [facility] [address] [place] [address] Dr. Julia Velasquez LIVER PROFILEon 12-09-2022 Albumin [Mass/Vol] 2.4 g/dL Critically low 3.4-5.0 [facility] Comment on above: Performed By: #### L IVER, BMP, LIPA, EDSON #### [facility] [address] [place] [address] Dr. Julia Velasquez Albumin/Globulin [Mass ratio] 0.5 {ratio} Normal [facility] Comment on above: Performed By: #### L IVER, BMP, LIPA, EDSON #### [facility] [address] [place] [address] Dr. Julia Velasquez ALP [Catalytic activity/Vol] 104 U/L Normal 46-116 [facility] Comment on above: Performed By: #### L IVER, BMP, LIPA, EDSON #### [facility] [address] [place] [address] Dr. Julia Velasquez ALT [Catalytic activity/Vol] 35 U/L Normal 14-59 [facility] Comment on above: Performed By: #### L IVER, BMP, LIPA, EDSON #### [facility] [address] [place] [address] Dr. Julia Velasquez AST [Catalytic activity/Vol] 59 U/L Critically high 15-37 [facility] Comment on above: Performed By: #### L IVER, BMP, LIPA, EDSON #### [facility] [address] [place] [address] Dr. Julia Velsaquez BILI, CONJUGATED 1.0 mg/dL Critically high 0.0-0.2 [facility] Comment on above: Performed By: #### L IVER, BMP, LIPA, EDSON #### [facility] [address] [place] [address] Dr. Julia Velasquez Bilirubin [Mass/Vol] 1.9 mg/dL Critically high 0.2-1.0 [facility] Comment on above: Performed By: #### L IVER, BMP, LIPA, EDSON #### [facility] [address] [place] [address] Dr. Julia Velasquez Globulin (S) [Mass/Vol] 5.0 g/dL Normal [facility] Comment on above: Performed By: #### L IVER, BMP, LIPA, EDSON #### [facility] [address] [place] [address] Dr. Julia Velasquez Protein [Mass/Vol] 7.4 g/dL Normal 6.4-8.2 The [facility] Comment on above: Performed By: #### L IVER, BMP, LIPA, EDSON #### [facility] [address] [place] [address] Dr. Julia Velasquez OCC BLD IMMUNOASSAYon 2022 OCCULT BLOOD Negative Normal NEGATIVE [facility] Comment on above: Performed By: #### L IVER, BMP, LIPA, EDSON #### [facility] [address] [place] [address] Dr. Julia Velasquez PROF CHEM 8 (BAS METB)on Anion gap [Moles/Vol] 18.8 mmol/L Normal [facility] Comment on above: Performed By: #### L IVER, BMP, LIPA, EDSON #### [facility] [address] [place] [address] Dr. Julia Velasquez Calcium [Mass/Vol] 9.2 mg/dL Normal 8.5-10.1 [facility] Comment on above: Performed By: #### L IVER, BMP, LIPA, EDSON #### [facility] [address] [place] [address] Dr. Julia Velasquez Chloride [Moles/Vol] 100 mmol/L Normal 98-107 [facility] Comment on above: Performed By: #### L IVER, BMP, LIPA, EDSON #### [facility] [address] [address] [address] Julia Velasquez CO2 [Moles/Vol] 24.3 mmol/L Normal 21.0-32.0 [facility] Comment on above: Performed By: #### L IVER, BMP, LIPA, EDSON #### [facility] [address] [place] [address] Dr. Julia Velasquez Creatinine [Mass/Vol] 2.98 mg/dL Critically high 0.55-1.02 [facility] Comment on above: Performed By: #### L IVER, BMP, LIPA, EDSON #### [facility] [address] [place] [address] Dr. Julia Velasquez EGFR-AF WALLISIAN 18 mL/min/1.73m2 Critically low >=60 [facility] Comment on above: Performed By: #### L IVER, BMP, LIPA, EDSON #### [facility] [address] [place] [address] Dr. Julia Velasquez EGFR-NON AF WALLISIAN 15 mL/min/1.73m2 Critically low >=60 [facility] Comment on above: Performed By: #### L IVER, BMP, LIPA, EDSON #### [facility] [address] [place] [address] Dr. Julia Velasquez Glucose [Mass/Vol] 116 mg/dL Critically high 74-106 T [facility] Comment on above: Performed By: #### L IVER, BMP, LIPA, EDSON #### [facility] [address] [place] [address] Dr. Julia Velasquez Potassium [Moles/Vol] 4.1 mmol/L Normal 3.5-5.1 [facility] Comment on above: Performed By: #### L IVER, BMP, LIPA, EDSON #### [facility] [address] [place] [address] Dr. Julia Velasquez Sodium [Moles/Vol] 139 mmol/L Normal 136-145 [facility] Comment on above: Performed By: #### L IVER, BMP, LIPA, EDSON #### [facility] [address] [place] [address] Dr. Julia Velasquez Urea nitrogen [Mass/Vol] 57.0 mg/dL Critically high 7.0-18.0 [facility] Comment on above: Performed By: #### L IVER, BMP, LIPA, EDSON #### [facility] [address] [place] [address] Dr. Julia Velasquez Urea nitrogen/Creatinine [Mass ratio] 19.1 mg/mg Normal [facility] Comment on above: Performed By: #### L IVER, BMP, LIPA, EDSON #### [facility] [address] [place] [address] Dr. Julia Velasquez CBC AUTO DIFFon 08-26-2022 BASO # 0.0 103/ul Normal 0.0-0.1 [facility] Comment on above: Performed By: #### L IVER, BMP, LIPA, EDSON #### [facility] [address] [place] [address] Dr. Julia Velasquez Basophils/100 WBC (Bld) 0.6 % Normal 0.2-2.0 [facility] Comment on above: Performed By: #### L IVER, BMP, LIPA, EDSON #### [facility] [address] [place] [address] Dr. Julia Velasquez EO # 0.3 103/ul Normal 0.0-0.7 [facility] Comment on above: Performed By: #### L IVER, BMP, LIPA, EDSON #### [facility] [address] [place] [address] Dr. Julia Velasquez Eosinophils/100 WBC (Bld) 4.9 % Normal 0.9-7.0 [facility] Comment on above: Performed By: #### L IVER, BMP, LIPA, EDSON #### [facility] [address] [place] [address] Dr. Julia Velasquez Erythrocyte distribution width (RBC) [Ratio] 13.2 % Normal 11.0-15.0 [facility] Comment on above: Performed By: #### L IVER, BMP, LIPA, EDSON #### [facility] [address] [place] [address] Dr. Julia Velasquez Hematocrit (Bld) [Volume fraction] 40.9 % Normal 36.0-48.0 [facility] Comment on above: Performed By: #### L IVER, BMP, LIPA, EDSON #### [facility] [address] [place] [address] Dr. Julia Velasquez Hemoglobin (Bld) [Mass/Vol] 13.0 g/dL Normal 12.0-16.0 [facility] Comment on above: Performed By: #### L IVER, BMP, LIPA, EDSON #### [facility] [address] [place] [address] Dr. Julia Velasquez IG # 0.05 10e3/ul Critically high 0.00-0.03 [facility] Comment on above: Performed By: #### L IVER, BMP, LIPA, EDSON #### [facility] [address] [place] [address] Dr. Julia Velasquez IG % 1.0 % Critically high 0.0-0.5 [facility] Comment on above: Performed By: #### L IVER, BMP, LIPA, EDSON #### [facility] [address] [place] [address] Dr. Julia Velasquez LYMPH # 1.3 103/ul Normal 1.2-3.8 [facility] Comment on above: Performed By: #### L IVER, BMP, LIPA, EDSON #### [facility] [address] [place] [address] Dr. Julia Velasquez Lymphocytes/100 WBC (Bld) 26.1 % Normal 20.5-60.0 [facility] Comment on above: Performed By: #### L IVER, BMP, LIPA, EDSON #### [facility] [address] [place] [address] Dr. Julia Velasquez MANUAL DIFF REQ NO Normal [facility] Comment on above: Performed By: #### L IVER, BMP, LIPA, EDSON #### [facility] [address] [place] [address] Dr. Julia Velasquez MCH (RBC) [Entitic mass] 29.6 pg Normal 26.7-34.0 [facility] Comment on above: Performed By: #### L IVER, BMP, LIPA, EDSON #### [facility] [address] [place] [address] Dr. Julia Velasquez MCHC (RBC) [Mass/Vol] 31.8 g/dL Normal 29.9-35.2 [facility] Comment on above: Performed By: #### L IVER, BMP, LIPA, EDSON #### [facility] [address] [place] [address] Dr. Julia Velasquez MCV (RBC) [Entitic vol] 93.2 fL Normal 81.0-99.0 [facility] Comment on above: Performed By: #### L IVER, BMP, LIPA, EDSON #### [facility] [address] [place] [address] Dr. Julia Velasquez MONO # 0.4 103/ul Normal 0.3-0.8 [facility] Comment on above: Performed By: #### L IVER, BMP, LIPA, EDSON #### [facility] [address] [place] [address] Dr. Julia Velasquez Monocytes/100 WBC (Bld) 7.7 % Normal 1.7-12.0 [facility] Comment on above: Performed By: #### L IVER, BMP, LIPA, EDSON #### [facility] [address] [place] [address] Dr. Julia Velasquez NEUT # 3.0 103/ul Normal 1.4-6.5 [facility] Comment on above: Performed By: #### L IVER, BMP, LIPA, EDSON #### [facility] [address] [place] [address] Dr. Julia Velasquez Neutrophils/100 WBC (Bld) 59.7 % Normal 43.0-75.0 [facility] Comment on above: Performed By: #### L IVER, BMP, LIPA, EDSON #### [facility] [address] [place] [address] Dr. Julia Velasquez Platelet mean volume (Bld) [Entitic vol] 10.6 fL Normal 9.5-13.5 [facility] Comment on above: Performed By: #### L IVER, BMP, LIPA, EDSON #### [facility] [address] [address] [address] Julia Velasquez PLT 248 103/ul Normal 150-450 [facility] Comment on above: Performed By: #### L IVER, BMP, LIPA, EDSON #### [facility] [address] [address] [address] Julia Velasquez RBC 4.39 106/ul Normal 4.20-5.40 [facility] Comment on above: Performed By: #### L IVER, BMP, LIPA, EDSON #### [facility] [address] [place] [address] Dr. Julia Velasquez WBC 5.1 103/ul Normal 4.0-11.0 [facility] Comment on above: Performed By: #### L IVER, BMP, LIPA, EDSON #### [facility] [address] [place] [address] Dr. Julia Velasquez LIPID PROFILEon 08-26-2022 CHOL-HDL RATIO NORM SEE BELOW Normal [facility] Comment on above: Result Comment: 3.3 - 4.4 LOW RISK 4.4 - 7.1 AVERAGE RISK 7.1 - 11.0 MODERATE RISK >11.0 HIGH RISK Performed By: #### L IVER, BMP, LIPA, EDSON #### [facility] [address] [address] [address] Julia Velasquez Cholesterol [Mass/Vol] 177 mg/dL Normal <=200 [facility] Comment on above: Performed By: #### L IVER, BMP, LIPA, EDSON #### [facility] [address] [address] [address] Julia Velasquez Cholesterol in HDL [Mass/Vol] 56 mg/dL Normal 40-60 [facility] Comment on above: Performed By: #### L IVER, BMP, LIPA, EDSON #### [facility] [address] [address] [address] Julia Velasquez Cholesterol in LDL [Mass/Vol] 99.4 mg/dL Normal [facility] Comment on above: Performed By: #### L IVER, BMP, LIPA, EDSON #### [facility] [address] [place] [address] Dr. Julia Velasquez Cholesterol.total/Ch olesterol in HDL [Mass ratio] 3.2 {ratio} Normal [facility] Comment on above: Performed By: #### L IVER, BMP, LIPA, EDSON #### [facility] [address] [address] [address] Julia Velasquez HDL NORMAL > or = 60 mg/dl - LO W CARDIOVASCULAR RISK <40 mg/dl - HIGH CARDIOVASCULAR RISK Normal [facility] Comment on above: Performed By: #### L IVSAM, BMP, LIPA, EDSON #### [facility] [address] [place] [address] Dr. Julia Velasquez LDL CALC NORMAL SEE BELOW Normal [facility] Comment on above: Result Comment: <100 mg/dl OPTIMAL 100 - 129 mg/dl NEAR OR ABOVE OPTIMAL 130 - 159 mg/dl BORDERLINE HIGH 160 - 189 mg/dl HIGH >190 mg/dl VERY HIGH Performed By: #### L IVER, BMP, LIPA, EDSON #### [facility] [address] [place] [address] Dr. Julia Velasquez Triglyceride [Mass/Vol] 108 mg/dL Normal <=150 [facility] Comment on above: Performed By: #### L IVER, BMP, LIPA, EDSON #### [facility] [address] [place] [address] Dr. Julia Velasquez VLDL CALC 21.6 mg/dL Normal [facility] Comment on above: Performed By: #### L IVER, BMP, LIPA, EDSON #### [facility] [address] [place] [address] Dr. Julia Velasquze PROF CHEM 8 (BAS METB)on Anion gap [Moles/Vol] 11.5 mmol/L Normal [facility] Comment on above: Performed By: #### L IVER, BMP, LIPA, EDSON #### [facility] [address] [address] [address] Julia Velasquez Calcium [Mass/Vol] 9.3 mg/dL Normal 8.5-10.1 [facility] Comment on above: Performed By: #### L IVER, BMP, LIPA, EDSNO #### [facility] [address] [place] [address] Dr. Julia Velasquez Chloride [Moles/Vol] 104 mmol/L Normal 98-107 [facility] Comment on above: Performed By: #### L IVER, BMP, LIPA, EDSON #### [facility] [address] [address] [address] Julia Velasquez CO2 [Moles/Vol] 30.5 mmol/L Normal 21.0-32.0 [facility] Comment on above: Performed By: #### L IVER, BMP, LIPA, EDSON #### [facility] [address] [place] [address] Dr. Julia Velasquez Creatinine [Mass/Vol] 1.09 mg/dL Critically high 0.55-1.02 [facility] Comment on above: Performed By: #### L IVER, BMP, LIPA, EDSON #### [facility] [address] [place] [address] Dr. Julia Velasquez EGFR-AF WALLISIAN 59 mL/min/1.73m2 Critically low >=60 [facility] Comment on above: Performed By: #### L IVER, BMP, LIPA, EDSON #### [facility] [address] [address] [address] Julia Velasquez EGFR-NON AF WALLISIAN 48 mL/min/1.73m2 Critically low >=60 [facility] Comment on above: Performed By: #### L IVER, BMP, LIPA, EDSON #### [facility] [address] [place] [address] Dr. Julia Velasquez Glucose [Mass/Vol] 89 mg/dL Normal 74-106 [facility] Comment on above: Performed By: #### L IVER, BMP, LIPA, EDSON #### [facility] [address] [address] [address] Julia Velasquez Potassium [Moles/Vol] 4.0 mmol/L Normal 3.5-5.1 [facility] Comment on above: Performed By: #### L IVER, BMP, LIPA, EDSON #### [facility] [address] [address] [address] Julia Velasquez Sodium [Moles/Vol] 142 mmol/L Normal 136-145 [facility] Comment on above: Performed By: #### L IVER, BMP, LIPA, EDSON #### [facility] [address] [address] [address] Julia Velasquez Urea nitrogen [Mass/Vol] 16.0 mg/dL Normal 7.0-18.0 [facility] Comment on above: Performed By: #### L IVER, BMP, LIPA, EDSON #### [facility] [address] [address] [address] Julia Velasquez Urea nitrogen/Creatinine [Mass ratio] 14.7 mg/mg Normal [facility] Comment on above: Performed By: #### L IVER, BMP, LIPA, EDSON #### [facility] [address] [address] [address] Julia Velasquez XR DEXA BONE DENSITYon [...] by: BUCKY CRAIG Date: 2022-08-25 14:10 Normal [facility] Vital Signs Date Time Vital Sign Value Performing Clinician Facility 01-19-2025 11:31-0400 Body height 165.1 cm [facility] 01-19-2025 11:31-0400 Body mass index (BMI) [Ratio] 22.9 kg/m2 [place] 01-19-2025 11:31-0400 Body weight 62.59 [facility] 01-19-2025 11:31-0400 Diastolic blood pressure 80 mm[Hg] [place] 01-19-2025 11:31-0400 Heart rate 61 /min [facility] 01-19-2025 11:31-0400 Respiratory rate 12 /min [facility] 01-19-2025 11:31-0400 Systolic blood pressure 130 mm[Hg] [place] 12-08-2024 11:43-0400 Body mass index (BMI) [Ratio] 23.76 kg/m2 Shivam Ponce MD Work Phone: [facility] 12-08-2024 11:43-0400 Body weight 59.88 kg Shivam Ponce MD Work Phone: [facility] 12-08-2024 11:43-0400 Diastolic blood pressure 71 mm[Hg] Shivam Ponce MD Work Phone: [facility] 12-08-2024 11:43-0400 Heart rate 59 /min Shivam Ponce MD Work Phone: [facility] 12-08-2024 11:43-0400 Systolic blood pressure 136 mm[Hg] Shivam Ponce MD Work Phone: [facility] 11-15-2024 14:34-0400 Body height 165.1 cm Anita Garcia MD Work Phone: [place] 11-15-2024 14:34-0400 Body mass index (BMI) [Ratio] 22 kg/m2 Anita Garcia MD Work Phone: [place] 11-15-2024 14:34-0400 Body weight 60.1 kg Anita Garcia MD Work Phone: [place] 11-15-2024 14:34-0400 Diastolic blood pressure 81 mm[Hg] Anita Garcia MD Work Phone: [place] 11-15-2024 14:34-0400 Heart rate 68 /min Anita Garcia MD Work Phone: [place] 11-15-2024 14:34-0400 Respiratory rate 12 /min Anita Garcia MD Work Phone: [place] 11-15-2024 14:34-0400 SaO2% (BldA) [Mass fraction] 98 % Anita Garcia MD Work Phone: [place] 11-15-2024 14:34-0400 Systolic blood pressure 132 mm[Hg] Anita Garcia MD Work Phone: [place] 10-18-2024 11:18-0500 Body height 165.1 cm Anita Garcia MD Work Phone: [place] 10-18-2024 11:18-0500 Body mass index (BMI) [Ratio] 22.8 kg/m2 Anita Garcia MD Work Phone: [place] 10-18-2024 11:18-0500 Body weight 62.19 kg Anita Garcia MD Work Phone: [place] 10-18-2024 11:18-0500 Diastolic blood pressure 73 mm[Hg] Anita Garcia MD Work Phone: [place] 10-18-2024 11:18-0500 Heart rate 58 /min Anita Garcia MD Work Phone: [place] 10-18-2024 11:18-0500 Respiratory rate 12 /min Anita Garcia MD Work Phone: [place] 10-18-2024 11:18-0500 Systolic blood pressure 148 mm[Hg] Anita Garcia MD Work Phone: [place] 10-14-2024 11:24-0500 Body height 158.8 cm Shivam Ponec MD Work Phone: [facility] 10-14-2024 11:24-0500 Body mass index (BMI) [Ratio] 23.76 kg/m2 Shivam Ponce MD Work Phone: [facility] 10-14-2024 11:24-0500 Body weight 59.88 kg Shivam Ponce MD Work Phone: [facility] 10-14-2024 11:24-0500 Diastolic blood pressure 84 mm[Hg] Shivam Ponce MD Work Phone: [facility] 10-14-2024 11:24-0500 Systolic blood pressure 150 mm[Hg] Shivam Ponce MD Work Phone: [facility] 10-04-2024 09:38-0500 Body height 165.1 cm Anita Garcia MD Work Phone: [place] 10-04-2024 09:38-0500 Body mass index (BMI) [Ratio] 22.9 kg/m2 Anita Garcia MD Work Phone: [place] 10-04-2024 09:38-0500 Body weight 62.59 kg Anita Garcia MD Work Phone: [place] 10-04-2024 09:38-0500 Diastolic blood pressure 74 mm[Hg] Anita Garcia MD Work Phone: [place] 10-04-2024 09:38-0500 Heart rate 70 /min Anita Garcia MD Work Phone: [place] 10-04-2024 09:38-0500 Respiratory rate 12 /min Anita Garcia MD Work Phone: [place] 10-04-2024 09:38-0500 Systolic blood pressure 149 mm[Hg] Anita Garcia MD Work Phone: [place] 09-18-2024 23:59-0500 Body mass index (BMI) [Ratio] 23.76 kg/m2 Shivam Ponce MD Work Phone: [facility] 09-18-2024 23:59-0500 Body weight 59.88 kg Shivam Ponce MD Work Phone: [facility] 09-18-2024 23:59-0500 Diastolic blood pressure 84 mm[Hg] Shivam Ponce MD Work Phone: [facility] 09-18-2024 23:59-0500 Heart rate 65 /min Shivam Ponce MD Work Phone: [facility] 09-18-2024 23:59-0500 Systolic blood pressure 180 mm[Hg] Shivam Ponce MD Work Phone: [facility] 09-13-2024 14:09-0500 Body height 165.1 cm Kyle Ball DO Work Phone: [place] 09-13-2024 14:09-0500 Body mass index (BMI) [Ratio] 23 kg/m2 Kyle Ball DO Work Phone: [place] 09-13-2024 14:09-0500 Body weight 62.7 kg Kyle Ball DO Work Phone: [place] 09-13-2024 14:09-0500 Diastolic blood pressure 76 mm[Hg] Kyle Ball DO Work Phone: [place] 09-13-2024 14:09-0500 Heart rate 58 /min Kyle Ball DO Work Phone: [place] 09-13-2024 14:09-0500 Respiratory rate 12 /min Kyle Ball DO Work Phone: [place] 09-13-2024 14:09-0500 Systolic blood pressure 148 mm[Hg] Kyle Ball DO Work Phone: [place] 09-05-2024 14:31-0500 Body height 165.1 cm Kyle Ball DO Work Phone: [place] 09-05-2024 14:31-0500 Body mass index (BMI) [Ratio] 23.1 kg/m2 Kyle Ball DO Work Phone: [place] 09-05-2024 14:31-0500 Body weight 63.04 kg Kyle Ball DO Work Phone: [place] 09-05-2024 14:31-0500 Diastolic blood pressure 80 mm[Hg] Kyle Ball DO Work Phone: [place] 09-05-2024 14:31-0500 Heart rate 74 /min Kyle Ball DO Work Phone: [place] 09-05-2024 14:31-0500 SaO2% (BldA) [Mass fraction] 98 % Kyle Ball DO Work Phone: [place] 09-05-2024 14:31-0500 Systolic blood pressure 176 mm[Hg] Kyle Ball DO Work Phone: [place] 08-18-2024 17:29-0500 Body mass index (BMI) [Ratio] 24.33 kg/m2 Shivam Ponce MD Work Phone: [facility] 08-18-2024 17:29-0500 Body weight 61.33 kg Shivam Ponce MD Work Phone: [facility] 08-18-2024 17:29-0500 Diastolic blood pressure 72 mm[Hg] Shivam Ponce MD Work Phone: [facility] 08-18-2024 17:29-0500 Systolic blood pressure 112 mm[Hg] Shivam Ponce MD Work Phone: [facility] 08-16-2024 11:10-0500 Body height 165.1 cm Kyle Ball DO Work Phone: [place] 08-16-2024 11:10-0500 Body mass index (BMI) [Ratio] 22.7 kg/m2 Kyle Ball DO Work Phone: [place] 08-16-2024 11:10-0500 Body weight 62 kg Kyle Ball DO Work Phone: [place] 07-20-2024 11:01-0500 Body height 166.37 cm Kyle Ball DO Work Phone: [place] 07-20-2024 11:01-0500 Body mass index (BMI) [Ratio] 22.6 kg/m2 Kyle Ball DO Work Phone: [place] 07-20-2024 11:01-0500 Body weight 62.65 kg Kyle Ball DO Work Phone: [place] 07-20-2024 11:01-0500 Diastolic blood pressure 72 mm[Hg] Kyle Ball DO Work Phone: [place] 07-20-2024 11:01-0500 Heart rate 61 /min Kyle Ball DO Work Phone: [place] 07-20-2024 11:01-0500 Respiratory rate 12 /min Kyle Ball DO Work Phone: [place] 07-20-2024 11:01-0500 Systolic blood pressure 135 mm[Hg] Kyle Ball DO Work Phone: [place] 07-07-2024 11:33-0400 Body mass index (BMI) [Ratio] 25.02 kg/m2 Shivam Ponce MD Work Phone: [facility] 07-07-2024 11:33-0400 Body weight 63.05 kg Shivam Ponce MD Work Phone: [facility] 07-07-2024 11:33-0400 Diastolic blood pressure 70 mm[Hg] Shivam Ponce MD Work Phone: [facility] 07-07-2024 11:33-0400 Heart rate 66 /min Shivam Ponce MD Work Phone: [facility] 07-07-2024 11:33-0400 Systolic blood pressure 102 mm[Hg] Shivam Ponce MD Work Phone: [facility] 06-14-2024 11:09-0400 Body height 166.37 cm [facility] 06-14-2024 11:09-0400 Body mass index (BMI) [Ratio] 22.3 kg/m2 [place] 06-14-2024 11:09040 Body weight 61.74 kg [facility] 06-14-2024 11:09-0400 Diastolic blood pressure 77 mm[Hg] [place] 06-14-2024 11:09-0400 Heart rate 64 /min [facility] 06-14-2024 11:090400 Respiratory rate 12 /min [facility] 06-14-2024 11:09-0400 Systolic blood pressure 132 mm[Hg] [place] 06-01-2024 11:33-0400 Body height 158.8 cm Shivam Ponce MD Work Phone: [facility] 06-01-2024 11:33-0400 Body mass index (BMI) [Ratio] 23.94 kg/m2 Shivam Ponce MD Work Phone: [facility] 06-01-2024 11:33-0400 Body weight 60.33 kg Shivam Ponce MD Work Phone: [facility] 06-01-2024 11:33-0400 Diastolic blood pressure 74 mm[Hg] Shivam Ponce MD Work Phone: [facility] 06-01-2024 11:33-0400 Systolic blood pressure 122 mm[Hg] Shivam Ponce MD Work Phone: [facility] 05-27-2024 11:40-0400 Body height 166.37 cm [facility] 05-27-2024 11:40-0400 Body mass index (BMI) [Ratio] 21.8 kg/m2 [place] 05-27-2024 11:40-0400 Body weight 60.44 kg [facility] 05-27-2024 11:40-0400 Diastolic blood pressure 64 mm[Hg] [place] 05-27-2024 11:40-0400 Heart rate 63 /min [facility] 05-27-2024 11:40-0400 Respiratory rate 12 /min [facility] 05-27-2024 11:40-0400 Systolic blood pressure 118 mm[Hg] [place] 05-17-2024 11:03-0400 Body height 166.37 cm [facility] 05-17-2024 11:03-0400 Body mass index (BMI) [Ratio] 21.4 kg/m2 [place] 05-17-2024 11:03-0400 Body weight 59.47 kg [facility] 05-17-2024 11:03-0400 Diastolic blood pressure 79 mm[Hg] [place] 05-17-2024 11:03-0400 Heart rate 57 /min [facility] 05-17-2024 11:03-0400 Respiratory rate 12 /min [facility] 05-17-2024 11:03-0400 Systolic blood pressure 136 mm[Hg] [place] 05-03-2024 11:14-0400 Body height 158.8 cm Aamir Dao [employer] Work Phone: [facility] 05-03-2024 11:14-0400 Body mass index (BMI) [Ratio] 23.76 kg/m2 Aamir Deraser [employer] Work Phone: [facility] 05-03-2024 11:14-0400 Body weight 59.88 kg Aamir Dao [employer] Work Phone: [facility] 05-03-2024 11:14-0400 Diastolic blood pressure 68 mm[Hg] Aamir Morenita [employer] Work Phone: [facility] 05-03-2024 11:14-0400 Systolic blood pressure 126 mm[Hg] Aamir Deraser [employer] Work Phone: [facility] 03-09-2024 11:18-0400 Body height 166.37 cm [facility] 03-09-2024 11:18-0400 Body mass index (BMI) [Ratio] 21.8 kg/m2 [place] 03-09-2024 11:18-0400 Body weight 60.44 kg [facility] 03-09-2024 11:18-0400 Diastolic blood pressure 73 mm[Hg] [place] 03-09-2024 11:18-0400 Heart rate 68 /min [facility] 03-09-2024 11:18-0400 Respiratory rate 12 /min [facility] 03-09-2024 11:18-0400 Systolic blood pressure 128 mm[Hg] [place] 11-25-2023 11:17-0400 Body height 166.37 cm [facility] 11-25-2023 11:17-0400 Body mass index (BMI) [Ratio] 23.3 kg/m2 [place] 11-25-2023 11:17-0400 Body weight 64.63 kg [facility] 11-25-2023 11:17-0400 Diastolic blood pressure 72 mm[Hg] [place] 11-25-2023 11:17-0400 Heart rate 66 /min [facility] 11-25-2023 11:17-0400 Respiratory rate 12 /min [facility] 11-25-2023 11:17-0400 Systolic blood pressure 127 mm[Hg] [place] 10-14-2023 11:20-0500 Body mass index (BMI) [Ratio] 24.96 kg/m2 Shivam Ponce MD Work Phone: [facility] 10-14-2023 11:20-0500 Body weight 63.41 kg Shivam Ponce MD Work Phone: [facility] 10-14-2023 11:20-0500 Diastolic blood pressure 82 mm[Hg] Shivam Ponce MD Work Phone: [facility] 10-14-2023 11:20-0500 Systolic blood pressure 130 mm[Hg] Shivam Ponce MD Work Phone: [facility] 08-25-2023 15:00-0500 Body weight 63.04 kg [facility] 08-25-2023 15:00-0500 Diastolic blood pressure 64 mm[Hg] [place] 08-25-2023 15:00-0500 Systolic blood pressure 114 mm[Hg] [place] 08-25-2023 11:15-0500 Body height 166.37 cm Doni Rivera Other [place] 08-25-2023 11:15-0500 Body mass index (BMI) [Ratio] 22.61 kg/m2 Doni Rivera Other [employer] Other 08-25-2023 11:15-0500 Body weight 62.6 kg Doni Rivera Other [employer] Other 08-25-2023 11:15-0500 Diastolic blood pressure 73 mm[Hg] Doni Rivera Other [employer] Other 08-25-2023 11:15-0500 Systolic blood pressure 117 mm[Hg] Doni Rivera Other [employer] Other 05-27-2023 10:00-0400 Body height 166.37 cm Kyle Ball Other [employer] Other 05-27-2023 10:00-0400 Body mass index (BMI) [Ratio] 22.74 kg/m2 Kyle Ball Other [employer] Other 05-27-2023 10:00-0400 Body weight 62.96 kg Kyle Ball Other [employer] Other 05-27-2023 10:00-0400 Diastolic blood pressure 72 mm[Hg] Kyle Ball Other [employer] Other 05-27-2023 10:00-0400 Respiratory rate 12 /min Kyle Ball Other [employer] Other 05-27-2023 10:00-0400 Systolic blood pressure 131 mm[Hg] Kyle Ball Other [employer] Other 02-10-2023 10:30-0400 Body height 166.37 cm Kyle Ball Other [employer] Other 02-10-2023 10:30-0400 Body mass index (BMI) [Ratio] 24.55 kg/m2 Kyle Ball Other [employer] Other 02-10-2023 10:30-0400 Body weight 67.95 kg Kyle Ball Other [employer] Other 02-10-2023 10:30-0400 Diastolic blood pressure 78 mm[Hg] Kyle Ball Other [employer] Other 02-10-2023 10:30-0400 Respiratory rate 12 /min Kyle Ball Other [employer] Other 02-10-2023 10:30-0400 Systolic blood pressure 111 mm[Hg] Kyle Ball Other [employer] Other 01-01-2023 11:30-0400 Body height 166.37 cm Kyle Ball Other [employer] Other 01-01-2023 11:30-0400 Body mass index (BMI) [Ratio] 23.01 kg/m2 Kyle Ball Other [employer] Other 01-01-2023 11:30-0400 Body weight 63.69 kg Kyle Ball Other [employer] Other 01-01-2023 11:30-0400 Diastolic blood pressure 77 mm[Hg] Kyle Ball Other [employer] Other 01-01-2023 11:30-0400 Respiratory rate 12 /min Kyle Ball Other [employer] Other 01-01-2023 11:30-0400 Systolic blood pressure 124 mm[Hg] Kyle Ball Other [employer] Other 12-17-2022 11:15-0400 Body height 166.37 cm Kyle Ball Other [employer] Other 12-17-2022 11:15-0400 Body mass index (BMI) [Ratio] 25.3 kg/m2 Kyle Ball Other [employer] Other 12-17-2022 11:15-0400 Body weight 70.04 kg Kyle Ball Other [employer] Other 12-17-2022 11:15-0400 Diastolic blood pressure 70 mm[Hg] Kyle Ball Other [employer] Other 12-17-2022 11:15-0400 Respiratory rate 12 /min Kyle Ball Other [employer] Other 12-17-2022 11:15-0400 Systolic blood pressure 168 mm[Hg] Kyle Ball Other [employer] Other 11-17-2022 12:00-0400 Body height 166.37 cm Kyle Ball Other [employer] Other 11-17-2022 12:00-0400 Body mass index (BMI) [Ratio] 24.15 kg/m2 Kyle Ball Other [employer] Other 11-17-2022 12:00-0400 Body weight 66.86 kg Kyle Ball Other [employer] Other 11-17-2022 12:00-0400 Diastolic blood pressure 74 mm[Hg] Kyle Gottlieb Other [employer] Other 11-17-2022 12:00-0400 Respiratory rate 12 /min Kyle Gottlieb Other [employer] Other 11-17-2022 12:00-0400 Systolic blood pressure 133 mm[Hg] Kyle Gottlieb Other [employer] Other 11-14-2021 15:45-0500 Body height 166.37 cm Doni Rivera Other [employer] Other 11-14-2021 15:45-0500 Body mass index (BMI) [Ratio] 23.6 kg/m2 Doni Hortongen Other [employer] Other 11-14-2021 15:45-0500 Body weight 65.32 kg Doni Rivera Other [employer] Other Encounters Encounter Date Encounter Type Care Provider Facility Start: 01-19-2025 End: 01-19-2025 ambulatory [facility] Work Phone: Start: 01-19-2025 End: 01-19-2025 Patient encounter procedure [facility] Physician [facility] Work Phone: Start: 12-16-2024 End: 12-16-2024 ambulatory [facility] Work Phone: Start: 12-16-2024 End: 12-16-2024 Patient encounter procedure [facility] Physician [facility] Work Phone: Start: 12-08-2024 End: 12-08-2024 Austino flowscarina Ponce MD Work Phone: [facility] Start: 12-08-2024 End: 12-08-2024 Bamboo flowsheet Shivam Ponce MD Work Phone: [facility] Start: 12-08-2024 End: 12-08-2024 ambulatory SHIVAM PONCE Not Available Comment on above: Trochanteric bursiti s of both hips (Primary Dx); Nerve root and plexus disorder, unspecified Start: 11-15-2024 End: 11-15-2024 ambulatory Anita Garcia MD Work Phone: [facility] Work Phone: Start: 11-15-2024 End: 11-15-2024 Patient encounter procedure Anita Garcia MD Work Phone: [facility] Work Phone: Start: 10-18-2024 End: 10-18-2024 ambulatory Anita Garcia MD Work Phone: [facility] Work Phone: Start: 10-18-2024 End: 10-18-2024 Patient encounter procedure Anita Garcia MD Work Phone: [facility] Work Phone: Start: 10-14-2024 End: 10-14-2024 Bamboo flowsheet Shivam Ponce MD Work Phone: [facility] Start: 10-14-2024 End: 10-14-2024 Bamboo flowsheet Shivam Ponce MD Work Phone: [facility] Start: 10-14-2024 End: 10-14-2024 Clinical Support Shivam Ponce MD Work Phone: [facility] Comment on above: Trochanteric bursiti s of both hips (Primary Dx); Nerve root and plexus disorder, unspecified Start: 10-04-2024 End: 10-04-2024 ambulatory Anita Garcia MD Work Phone: [facility] Work Phone: Start: 10-04-2024 End: 10-04-2024 Patient encounter procedure Anita Garcia MD Work Phone: [facility] Work Phone: Start: 10-02-2024 Non-patient / Non-visit Anita Garcia MD Work Phone: [facility] Work Phone: Start: 09-30-2024 Non-patient / Non-visit Anita aGrcia MD Work Phone: [facility] Work Phone: Start: 09-23-2024 Non-patient / Non-visit Anita Garcia MD Work Phone: [facility] Work Phone: Start: 09-14-2024 End: 09-14-2024 Bamboo flowsheet Shivam Ponce MD Work Phone: [facility] Start: 09-14-2024 End: 09-14-2024 Bamboo flowsheet Shivam Ponce MD Work Phone: [facility] Start: 09-14-2024 End: 09-14-2024 Clinical Support Shivam Ponce MD Work Phone: [facility] Comment on above: Trochanteric bursiti s of both hips (Primary Dx); Cervical paraspinal muscle spasm; Other nerve root and plexus disorders Start: 09-13-2024 End: 09-13-2024 ambulatory Kyle Ball DO Work Phone: [facility] Work Phone: Start: 09-13-2024 End: 09-13-2024 Patient encounter procedure Kyle Ball DO Work Phone: [facility] Work Phone: Start: 09-09-2024 Non-patient / Non-visit Benjam in Ball DO Work Phone: [facility] Physician [facility] Work Phone: Start: 09-06-2024 Non-patient / Non-visit Anita Garcia MD Work Phone: [facility] Physician [facility] Work Phone: Start: 09-06-2024 Non-patient / Non-visit Benjam in Ball DO Work Phone: [facility] Physician [facility] Work Phone: Start: 09-05-2024 End: 09-05-2024 ambulatory Anita Garcia Facility:[place] Start: 09-05-2024 End: 09-05-2024 Departed Referred Kyle Micah DO Work Phone: [facility] Work Phone: Start: 09-05-2024 End: 09-05-2024 Patient encounter procedure Kyle Micah DO Work Phone: [facility] Work Phone: Start: 08-18-2024 End: 08-18-2024 Bamboo flowsheet Shivam Ponce MD Work Phone: [facility] Start: 08-18-2024 End: 08-18-2024 Javanboo flowsheet Shivam Ponce MD Work Phone: [facility] Start: 08-18-2024 End: 08-18-2024 Clinical Support Shivam Ponce MD Work Phone: [facility] Comment on above: Other nerve root and plexus disorders (Primary Dx); Trochanteric bursitis of both hips Start: 08-16-2024 End: 08-16-2024 Patient encounter procedure Kyle Micah DO Work Phone: [facility] Physician [facility] Work Phone: Start: 07-22-2024 End: 07-22-2024 ambulatory Kyle Ball DO Work Phone: [facility] Work Phone: Start: 07-22-2024 End: 07-22-2024 Patient encounter procedure Kyle Ball DO Work Phone: [facility] Work Phone: Start: 07-20-2024 End: 07-20-2024 ambulatory Kyle Ball DO Work Phone: [facility] Work Phone: Start: 07-20-2024 End: 07-20-2024 Patient encounter procedure Kyle Ball DO Work Phone: [facility] Physician [facility] Work Phone: Start: 07-07-2024 End: 07-07-2024 Bamboo [...] End: 06-23-2024 Patient encounter procedure DO Kyle Ball Work Phone: [facility] Work Phone: Start: 06-23-2024 End: 06-23-2024 ambulatory DO Kyle Ball Work Phone: [facility] Work Phone: Start: 06-21-2024 End: 06-21-2024 ambulatory [facility] Work Phone: Start: 06-21-2024 End: 06-21-2024 Patient encounter procedure [facility] Physician [facility] Work Phone: Start: 06-14-2024 End: 06-14-2024 ambulatory [facility] Work Phone: Start: 06-14-2024 End: 06-14-2024 Patient encounter procedure [facility] Physician [facility] Work Phone: Start: 06-11-2024 Patient encounter procedure [place] Start: 06-10-2024 Non-patient / Non-visit [facility] Physician [facility] Work Phone: Start: 06-02-2024 [...] plexus disorders Start: 05-27-2024 End: 05-27-2024 ambulatory [facility] Work Phone: Start: 05-27-2024 End: 05-27-2024 Patient encounter procedure [facility] Physician [facility] Work Phone: Start: 05-25-2024 Non-patient / Non-visit [facility] Physician [facility] Work Phone: Start: 05-17-2024 End: 05-17-2024 ambulatory [facility] Work Phone: Start: 05-17-2024 End: 05-17-2024 Patient encounter procedure [facility] Work Phone: Start: 05-11-2024 End: 05-11-2024 ambulatory [facility] Work Phone: Start: 05-11-2024 End: 05-11-2024 Patient encounter procedure [facility] Work Phone: Start: 05-03-2024 End: 05-03-2024 Office outpatient visit 25 minutes Aamir Dao DO Work Phone: [facility] Comment on above: Postmenopausal atrop hic vaginitis (Primary Dx); Breast cancer screening by mammogram; Hormone replacement therapy Start: 05-03-2024 End: 05-03-2024 ambulatory AAMIR DAO Not Available Start: 04-12-2024 End: 04-12-2024 ambulatory [facility] Work Phone: Start: 04-12-2024 End: 04-12-2024 Patient encounter procedure [facility] Work Phone: Start: 03-30-2024 End: 03-30-2024 ambulatory SHIVAM PONCE Not Available Start: 03-09-2024 End: 03-09-2024 ambulatory [facility] Work Phone: Start: 03-09-2024 End: 03-09-2024 Patient encounter procedure [facility] Work Phone: Start: 02-03-2024 End: 02-03-2024 ambulatory [facility] Work Phone: Start: 02-03-2024 End: 02-03-2024 Patient encounter procedure [facility] Work Phone: Start: 01-20-2024 End: 01-20-2024 ambulatory SHIVAM PONCE Not Available Start: 12-28-2023 End: 12-28-2023 ambulatory [facility] Work Phone: Start: 12-28-2023 End: 12-28-2023 Patient encounter procedure [facility] Physician [facility] Work Phone: Start: 11-25-2023 End: 11-25-2023 ambulatory [facility] Work Phone: Start: 11-25-2023 End: 11-25-2023 Patient encounter procedure [facility] Physician [facility] Work Phone: Start: 10-21-2023 End: 10-21-2023 ambulatory [facility] Work Phone: Start: 10-21-2023 End: 10-21-2023 Patient encounter procedure [facility] Physician [facility] Work Phone: Start: 10-14-2023 End: 10-14-2023 Office outpatient visit 25 minutes Shivam Ponce MD Work Phone: [facility] Comment on above: Brachial plexus neur opathy (Primary Dx); Multiple sclerosis ([facility]) Start: 10-13-2023 Chart abstracting Shivam schulz MD Work Phone: [id number] Start: 09-29-2023 End: 09-29-2023 ambulatory Kyle Gottlieb Other [employer] Other Start: 09-29-2023 Telephone encounter Kyle Gottlieb FP [facility] Start: 09-17-2023 End: 09-17-2023 ambulatory Kyle Gottlieb Other [employer] Other Start: 09-17-2023 Office outpatient vi sit 15 minutes Kyle Gottlieb [facility] Start: 09-17-2023 End: 09-17-2023 Patient encounter procedure [facility] Physician [facility] Work Phone: Start: 09-15-2023 End: 09-15-2023 ambulatory Kyle Gottlieb Other [employer] Other Start: 09-15-2023 Nursing evaluation o f patient and report Kyle Gottlieb [facility] Start: 08-28-2023 End: 08-28-2023 ambulatory Tonya Harrison Other [employer] Other Start: 08-28-2023 Nursing evaluation o f patient and report Tonya Harrison [facility] Start: 08-28-2023 Telephone encounter Tonya Strong her [facility] Start: 08-26-2023 End: 08-26-2023 ambulatory Tonya Harrison Other [employer] Other Start: 08-26-2023 Telephone encounter Tonya Strong her [facility] Start: 08-25-2023 End: 08-25-2023 ambulatory Doni Rivera Other [employer] Other Start: 08-25-2023 Patient encounter procedure Doni Rivera [facility] Start: 08-25-2023 End: 08-25-2023 Patient encounter procedure [facility] Work Phone: Start: 08-13-2023 End: 08-13-2023 ambulatory Kyle Gottlieb Other [employer] Other Start: 08-13-2023 Nursing evaluation o f patient and report Kyle Gottlieb [facility] Start: 07-09-2023 End: 07-09-2023 ambulatory Kyle Gottlieb Other [employer] Other Start: 07-09-2023 Nursing evaluation o f patient and report Kyle Gottlieb [facility] Start: 06-19-2023 End: 06-19-2023 ambulatory Doni Rivera Other [employer] Other Start: 06-19-2023 Telephone encounter Doni Rivera [facility] Start: 06-18-2023 End: 06-18-2023 ambulatory Doni Rivera Other [employer] Other Start: 06-18-2023 Telephone encounter Doni [facility]le[facility] Start: 06-08-2023 End: 06-08-2023 ambulatory Kyle Gottlieb Other [employer] Other Start: 06-08-2023 Nursing evaluation o f patient and report Kyle Gottlieb [facility] Start: 05-29-2023 End: 05-29-2023 ambulatory Kyle Gottlieb Other [employer] Other Start: 05-29-2023 Telephone encounter Kyle Lafleur [facility] Start: 05-27-2023 End: 05-27-2023 ambulatory Kyle Gottlieb Other [employer] Other Start: 05-27-2023 Patient encounter procedure Kyle Gottlieb [facility] Start: 05-13-2023 End: 05-13-2023 ambulatory DO Kyle Micah Work Phone: [facility] Work Phone: Start: 05-13-2023 End: 05-13-2023 Patient encounter procedure DO Kyle Micah Work Phone: [facility] Work Phone: Start: 05-07-2023 End: 05-07-2023 ambulatory Kyle Gottlieb Other [employer] Other Start: 05-07-2023 Nursing evaluation o f patient and report Kyle Gottlieb [facility] Start: 04-06-2023 End: 04-06-2023 ambulatory Kyle Gottlieb Other [employer] Other Start: 04-06-2023 Nursing evaluation o f patient and report Kyle Gottlieb [facility] Start: 03-23-2023 End: 03-23-2023 ambulatory Kyle Gottlieb Other [employer] Other Start: 03-23-2023 Nursing evaluation o f patient and report Kyle Gottlieb [facility] Start: 03-16-2023 End: 03-16-2023 ambulatory Kyle Gottlieb Other [employer] Other Start: 03-16-2023 Nursing evaluation o f patient and report Kyle Gottlieb [facility] Start: 03-13-2023 End: 03-13-2023 ambulatory Kyle Gottlieb Other [employer] Other Start: 03-13-2023 Telephone encounter Kyle Gottlieb [facility] Start: 03-11-2023 End: 03-11-2023 ambulatory Kyle Gottlieb Other [employer] Other Start: 03-11-2023 Telephone encounter Kyle Gottlieb [facility] Start: 02-10-2023 End: 02-10-2023 ambulatory Kyle Gottlieb Other [employer] Other Start: 02-10-2023 Office outpatient vi sit 25 minutes Kyle Gottlieb [facility] Start: 02-04-2023 End: 02-04-2023 ambulatory Kyle Gottlieb Other [employer] Other Start: 02-04-2023 Telephone encounter Kyle Gottlieb [facility] Start: 02-03-2023 End: 02-04-[address] KYLE GOTTLIEB Facility:[facility] Start: 02-03-2023 Telephone encounter Kyle Gottlieb [facility] Start: 01-09-2023 End: 01-09-2023 ambulatory Kyle Micah Other [employer] Other Start: 01-09-2023 Telephone encounter Kyle Gottlieb [facility] Start: 01-07-2023 End: 01-08-[address] KYLE GOTTLIEB Facility:[facility] Start: 01-01-2023 End: 01-01-2023 ambulatory Kyle Micah Other [employer] Other Start: 01-01-2023 Office outpatient vi sit 25 minutes Kyle Gottlieb [facility] Start: 12-17-2022 End: 12-17-2022 ambulatory Kyle Gottlieb Other [employer] Other Start: 12-17-2022 Telephone encounter Kyle Gottlieb [facility] Start: 12-17-2022 Transitional care manage srvc 7 day discharge Kyle Gottlieb [facility] Start: 12-16-2022 End: 12-16-2022 ambulatory Kyle Gottlieb Other [employer] Other Start: 12-16-2022 Telephone encounter Kyle Gottlieb PO[facility] Start: 12-10-2022 End: 12-14-2022 Evaluation and management of inpatient DR BYRON ZULETA . Facility:[facility] Start: 12-08-2022 End: 12-08-2022 ambulatory Doni Rivera Other [employer] Other Start: 12-08-2022 Telephone encounter Doni [facility] Start: 11-17-2022 End: 11-17-2022 ambulatory Kyle Micah Other [employer] Other Start: 11-17-2022 Office outpatient vi sit 25 minutes Kyle Gottlieb [facility] Start: 09-03-2022 End: 09-03-2022 ambulatory Doni Rivera Other [employer] Other Start: 09-03-2022 Telephone encounter Doni LANZA [facility] Start: 08-26-2022 End: 08-27-[address] KYLE GOTTLIEB Facility:[facility] Start: 08-25-2022 End: 08-26-[address] KYLE GOTTLIEB Facility:[facility] Start: 05-19-2022 Adult health examination Kyle Gottlieb Other [employer] Other Start: 04-28-2022 End: 06-13-[address] KYLE GOTTLIEB Facility:[facility] Start: 04-14-2022 End: 04-14-2022 Patient encounter procedure DO [facility]b [facility] Start: 04-09-2022 End: 04-09-2022 ambulatory Doni Rivera Other [employer] Other Start: 04-09-2022 Telephone encounter Doni [facility] Start: 12-05-2021 End: 12-05-2021 ambulatory Doni Rivera Other [employer] Other Start: 12-05-2021 Telephone encounter Doni [facility] Start: 11-14-2021 End: 11-14-2021 ambulatory Doni Rivera Other [employer] Other Start: 11-14-2021 Patient encounter procedure Doni [...] DO Kyle Ball Work Phone: Depression screening Benjarely n Ball Other Plan of Treatment Date Care Activity Detail Author Start: 05-09-2025 End: 05-09-2025 Patient encounter procedure 05/09/2025 11:30 AM EDT Office Visit [facility] [address] [place] [address] Aamir aDo, DO [address] [place] [address] [facility] Start: 05-08-2025 Influenza vaccination Influenz a Vaccine (Season Ended) [facility] Start: 02-08-2025 End: 02-08-2025 Clinical Support 02/08/2025 11:20 AM EDT Clinical Support [facility] [address] [facility] [address] [place] [address] Sihvam Ponce MD [address] [place] [address], [place] [address] [facility] Start: 12-09-2024 End: 12-09-2024 Clinical Support 12/09/2024 11:30 AM EDT Clinical Support [facility] [address] [facility] [address] [place] [id number] Shivam Ponce MD [address] [place] [address], [place] [address] [facility] Start: 12-08-2024 End: 12-08-2024 Clinical Support 12/08/2024 11:20 AM EDT Clinical Support [facility] [address] [place] [address] Shivam Ponce MD [address] [place] [address], [place] [address] Arrived [facility] Comment on above: Arrived Start: 10-14-2024 End: 10-14-2024 Clinical Support [facility] Comment on above: Arrived Start: 09-14-2024 End: 09-14-2024 Clinical Support 09/14/2024 10:20 AM EST Clinical Support [facility] [address] [facility] [address] [place] [phone] Shivam Ponce MD [address] [place] [address], [place] [address] Arrived [facility] Comment on above: Arrived Start: 09-05-2024 Group A Streptococcu s Culture Group A Streptococcus Culture [place] Start: 08-18-2024 End: 08-18-2024 Clinical Support 08/18/2024 11:40 AM EST Clinical Support [facility] [address] [place] [address] Shivam Ponce MD [address] [place] [address], [place] [id number] Arrived [facility] Comment on above: Arrived Start: 08-15-2024 End: 08-15-2024 Clinical Support 08/15/2024 11:20 AM EST Clinical Support [facility] [address] [facility] [address] [place] [address] Shivam Ponce MD [address] [place] [address], [place] [id number] [facility] Start: 07-07-2024 End: 07-07-2024 Clinical Support [facility] Comment on above: Arrived Start: 06-01-2024 End: 06-01-2024 Clinical Support [facility] Comment on above: Arrived Start: 05-14-2024 End: 07-03-2025 DBT Breast - bilateral screening Bilateral screening mammogram with tomosynthesis Imaging Routine Breast cancer screening by mammogram Expected: 05/14/2024, Expires: 07/03/2025 [facility] Work Phone: Comment on above: Expected: 05/14/2024 , Expires: 07/03/2025 Start: 05-08-2024 Influenza vaccination Influenza Vacc ine (#1) [facility] Start: 05-03-2024 End: 05-03-2024 Patient encounter procedure 05/03/2024 11:15 AM EDT Office Visit [facility] [address] [facility] [address] [place] [address] Aamir Dao, DO [address] [place] [address] [facility] Start: 01-20-2024 End: 01-20-2024 Patient encounter procedure 01/20/2024 10:40 AM EDT Office Visit [facility] [address] [place] [phone] Shivam Ponce MD [address] [place] [address], [place] [address] [facility] Start: 11-16-2023 End: 11-16-2023 Patient encounter procedure 11/16/2023 11:40 AM EDT Office Visit [facility] [address] [place] [phone] Tristin Hayes MD [address] [place] [address] [facility] Start: 10-14-2023 End: 10-14-2023 Patient encounter procedure 10/14/2023 11:20 AM EST Office Visit [facility] [address] [place] [address] Shivam Ponce MD [address] [place] [address], [place] [address] [facility] Start: 05-08-2023 Influenza vaccination Influenza Vacc ine (#1) [facility] Start: 2007 Pneumococcal Vaccine : 65+ Years (1 - PCV) Pneumococcal Vaccine: 65+ Years (1 - PCV) [facility] CT Unspecified body region WO contrast [place] Patient Education Low-fiber diet [facility] Work Phone: XR Foot - left GE [address] [facility] Immunizations Immunization Date Immunization Notes Care Provider Fa cility 05-27-2023 influenza virus vaccine, unspecified formulation [place] 05-27-2023 Prevnar 20 Kyle Gottlieb Other [place] 05-27-2023 influenza, high dose seasonal, preservative-free Kyle Gottlieb Other [facility] [employer] Other 07-11-2022 COVID-19 Pfizer (Pediatric) Kyle Gottlieb Other [place] 06-23-2022 influenza, injectabl e, quadrivalent, preservative free Shivam Ponce MD Work Phone: [facility] 06-23-2022 influenza virus vaccine, unspecified formulation Shivam Ponce MD Work Phone: [facility] 05-19-2022 influenza virus vaccine, split virus (incl. purified surface antigen) Kyle Gottlieb Other [facility] [employer] Other 05-19-2022 influenza virus vaccine, unspecified formulation [place] 05-19-2022 Influenza, High-dose Seasonal, Quadrivalent, Preservative Free Shivam Ponce MD Work Phone: [facility] 05-19-2022 Influenza, Seasonal, Quadrivalent, Adjuvanted Aamir Dao DO Work Phone: [facility] 02-06-2022 COVID-19 Vaccine Pfizer - Documentation Purposes Only Kyle Gottlieb Other [place] 06-10-2021 COVID-19 mRNA, Comirnaty (Pfizer) DO Kyle Gottlieb Work Phone: [place] 05-17-2021 influenza virus vaccine, split virus (incl. purified surface antigen) Kyle Gottlieb Other [facility] [employer] Other 05-17-2021 influenza virus vaccine, unspecified formulation [place] 11-22-2020 Moderna SARS-CoV-2 Vaccination Shivam Ponce MD Work Phone: [facility] 10-25-2020 COVID-19 mRNA, Comirnaty (Pfizer) DO Kyle Gottlieb Work Phone: [place] 10-15-2020 Moderna SARS-CoV-2 Vaccination Shivam Ponce MD Work Phone: [facility] 10-04-2020 COVID-19 mRNA, Comirnaty (Pfizer) DO Kyle Gottlieb Work Phone: [place] 10-04-2020 COVID-19 Vaccine Moderna - Documentation Purposes Only Kyle Gottlieb Other [place] 06-11-2020 influenza, seasonal, injectable Aamir Dao DO Work Phone: [facility] 05-16-2020 influenza virus vaccine, split virus (incl. purified surface antigen) Kyle Gottlieb Other [facility] [employer] Other 05-16-2020 influenza virus vaccine, unspecified formulation [place] 06-02-2019 influenza virus vaccine, split virus (incl. purified surface antigen) Kyle Gottlieb Other [facility] [employer] Other 06-02-2019 influenza virus vaccine, unspecified formulation [place] 05-25-2018 influenza virus vaccine, split virus (incl. purified surface antigen) Kyle Gottlieb Other [facility] [employer] Other 05-25-2018 influenza virus vaccine, unspecified formulation [place] 05-25-2018 Seasonal trivalent influenza vaccine, adjuvanted, preservative free Aamir Dao DO Work Phone: [facility] 05-25-2017 influenza virus vaccine, split virus (incl. purified surface antigen) Kyle Gottlieb Other [facility] [employer] Other 05-25-2017 influenza virus vaccine, unspecified formulation [place] 05-25-2017 influenza, high dose seasonal, preservative-free Aamir Dao DO Work Phone: [facility] 06-11-2016 influenza virus vaccine, split virus (incl. purified surface antigen) Kyle Gottlieb Other [facility] [employer] Other 10-05-2016 influenza virus vaccine, unspecified formulation [place] 06-11-2016 influenza, high dose seasonal, preservative-free Aamir Dao DO Work Phone: [facility] 06-13-2015 influenza virus vaccine, split virus (incl. purified surface antigen) Kyle Gottlieb Other [facility] [employer] Other 06-13-2015 influenza virus vaccine, unspecified formulation [place] 06-13-2015 pneumococcal conjuga te vaccine, 13 valent Kyle Gottlieb Other [place] 06-13-2015 pneumococcal Conjugate, unspecified formulation; Translations: [Need for prophylactic vaccination against Streptococcus pneumoniae (pneumococcus)] Kyle Gottlieb Other [facility] [employer] Other 06-07-2013 tetanus and diphther ia toxoids, adsorbed, preservative free, for adult use (5 Lf of tetanus toxoid and 2 Lf of diphtheria toxoid) Kyle Gottlieb Other [place] 06-13-2009 pneumococcal polysaccharide vaccine, 23 valent Kyle Gottlieb Other [place] NEGATED: Highlighted row has not occurred!05-16-2020 influenza virus vaccine, split virus (incl. purified surface antigen) Kyle Gottlieb Other [facility] [employer] Other Payers Date Payer Category Payer Private Health Insurance [id number] 1996 Medicare [id number] 1959 Medicare [id number] 2.1 [id number] 1959 Private Health Insurance [id number] 1942 Unknown [id number] 2.16.84 [id number] 1942 Unknown [id number] 2.16.84 0.1.391127.3.579.2.593 1942 Unknown [id number] 2.16.84 0.1.639734.3.579.2.593 1942 Unknown [id number] 2.16.84 0.1.586251.3.579.2.593 1942 Unknown [id number] 2.16.84 0.1.925959.3.579.2.593 1942 Unknown [id number] 2.16.84 0.1.655136.3.579.2.593 1942 Unknown [id number] 2.16.84 0.1.367559.3.579.2.1259 1942 Unknown [id number] 2.16.84 0.1.782640.3.579.2.1259 1942 Unknown [id number] 2.16.84 0.1.671508.3.579.2.1259 1942 Unknown [id number] 2.16.84 0.1.382069.3.579.2.1259 1942 Unknown [id number] 2.16.84 0.1.731719.3.579.2.1259 1942 Unknown [id number] 2.16.84 0.1.496877.3.579.2.1259 1942 Unknown [id number] 2.16.84 0.1.445923.3.579.2.1259 1942 Unknown [id number] 2.16.84 0.1.292092.3.579.2.1259 1942 Unknown [id number] 2.16.84 0.1.594252.3.579.2.1259 Self-pay Self Pay [id number] Social History Date Type Detail Facility Unknown if ever smoked [employer] Other Start: 04-28-2023 End: 05-03-2024 Sex Assigned At [facility] [employer] Other Start: 11-28-2021 End: 09-17-2023 Tobacco smoking status NHIS Ex-smoker (finding) [place] Start: 1940 Sex Assigned At Female F [facility] Start: 02-16-2023 [facility] Start: 02-16-2023 Tobacco use and exposure Smokeless tobacco non-user [facility] Start: 08-10-2023 End: 12-26-2024 Alcohol intake Lifetime non-drinker (finding) [facility] [...] file N [facility] Start: 07-20-2024 End: 01-19-2025 Sex Female (finding) [place] Clinical Notes 11-14-2021 to 12-08-2024 Shivam Ponce MD - 12/08/2024 11:20 AM EDT Note Date & Type Note Facility 12-08-2024 History of Presen t illness Narrative Images from the original note were not included. CHIEF COMPLAINT REASON FOR VISIT : Injections HPI: Gina Pierre is a 84 y.o. female who presents for bilateral bursa and bilateral brachial. Her pain today is 8/10. 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 She now has to take time off of work when this happens as she can not kick it. She is also thinking of quitting at the [employer] as it is not fun anymore. 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 CURRENT MEDICATIONS: ALLERGIES/DISCONTINUE MEDICATIONS Current Outpatient Medications [...] 24 hours Proctozone-HC 2.5 % rectal cream sertraline (ZOLOFT) 50 mg, Daily tiZANidine (Zanaflex) 4 MG capsule take 1 [...] (gastroesophageal reflux disease) Hiatal hernia HLD (hyperlipidemia) ([facility]) Hx of migraine headaches IBS (irritable bowel syndrome) Multiple sclerosis ([facility]) 1993 Past Surgical History: Procedure Laterality Date [...] REVIEW OF SYMPTOMS: Review of Systems OBJECTIVE: 12/08/2024 11:43 AM 10/14/2024 11:24 AM 09/18/2024 11:59 PM Vitals BMI 23.76 kg/m2 23.76 kg/m2 23.76 kg/m2 BSA (m2) 1.63 m2 1.63 m2 1.63 m2 Systolic 136 150 180 Diastolic 71 84 84 Heart Rate 59 65 Height (in) 5' 2.5 Weight (lb) 132 132 132 EXAM: Neurological Exam PROCEDURE: Brachial Plexus injection After explaining the risks, complications, and benefits of the procedure, the patient was seated in the chair. Allergies were reviewed, the consent was signed. The bilateral region posterior to the clavicle is identified and the most tender area is marked for injection then cleaned using sterile technique, and surface anesthetic; a 30 gauge 1/2 spinal needle was advanced and the [...] the media folder. ASSESSMENT AND PLAN: 1. Nerve root and plexus disorder, unspecified - bupivacaine (Marcaine) 0.5 % injection 5 mg - dexAMETHasone sod phos (Decadron) injection 4 mg I will bring her back in 6-8 weeks to see if she has received 50% or greater pain relief and at that time I will repeat the injections if needed. 2. Trochanteric bursitis of both hips (Primary) - bupivacaine (Marcaine) 0.5 % injection 5 mg - dexAMETHasone sod phos (Decadron) injection 4 mg I will bring her back in 6-8 weeks to see if she has received 50% or greater pain relief and at that time I will repeat the injections if needed. documented in this encounter [facility] 11-15-2024 Evaluation note Diagnosis Onset Date Resolution Acute bronchitis due to other specified organisms acute November 15, 2024 2:28pm Mucopurulent chronic bronchitis acute November 15, 2024 2:28pm PA (pernicious anemia) acute [facility] 2024 2:28pm PA (pernicious anemia) acute Ap [facility] 2024 11:40am Depression, major, recurrent, mild acute January 19, 2025 10:55am NABIL (generalized anxiety disorder) acute January 19, 2025 10:55am Gastroesophageal reflux disease with esophagitis without hemorrhage acute January 19 10:55am IBS (irritable bowel syndrome) acute January 19, 2025 10:55am Primary hypertension acute January 19, 2025 10:55am Stage 3a chronic kidney disease acute January 19, 2025 10:55am [facility] Work Phone: [phone] 128-310602-07-2025 History of Present illness Narrative* Shivam Ponce MD - 10/14/2024 11:50 AM EST Images from the original note were not included. CHIEF COMPLAINT REASON FOR VISIT: Injections. HPI: Gina Pierre is a 84 y.o. female who presents for bilateral brachial and bilateral bursa injections. Pain in her back is a 5/10. She states she was getting sharp pains in the back last night and her pain was a 8/10. Pain level is the brachial area and mostly in the shoulders and in the middle ofher back down. Pain level is 5/10. She states as the day goes on her lower back gets worse. She hasbeen putting heat on it. Does help temporarily. Denies any other concerns. CURRENT MEDICATIONS: ALLERGIES/DISCONTINUE [...] 24 hours Proctozone-HC 2.5 % rectal cream sertraline (ZOLOFT) 50 mg, Daily tiZANidine (Zanaflex) 4 MG capsule take 1 [...] (gastroesophageal reflux disease) Hiatal hernia HLD (hyperlipidemia) ([facility]) Hx of migraine headaches IBS (irritable bowel syndrome) Multiple sclerosis ([facility]) 1993 Past Surgical History: Procedure Laterality [...] REVIEW OF SYMPTOMS: Review of Systems Constitutional: Negative for chills, [...] neck stiffness. Negative for arthralgias andmyalgias. Neurological: Negative for tremors, weakness, light-headedness and numbness. Psychiatric/Behavioral: Negative for agitation, confusion and suicidal ideas. OBJECTIVE: 10/14/2024 11:24 AM 09/18/2024 11:59 PM 08/18/2024 5:29 PM Vitals BMI 23.76 kg/m2 23.76 kg/m2 24.33 kg/m2 BSA (m2) 1.63 m2 1.63 m2 1.64 m2 Systolic 150 180 112 Diastolic 84 84 72 Heart Rate 65 Height (in) 5' 2.5 Weight (lb) 132 132 135.2 EXAM: Neurological Exam Mental Status Awake, alert [...] reflexes: Erica's absent. Ankle clonus absent. Coordination Ftqkxs-fw-rnan, rapid alternating movements and ejef-xv-legn normal bilaterally without dysmetria. Gait Normal casual, toe, heel and tandem gait. Romberg is absent. PROCEDURE: Bursa Injection After explaining the risks, complications, and benefits of the procedure, the patient leaned over the exam table. Allergies were reviewed, the consent was signed. After palpating the bilateralgreatertrochanter and identifying the most tender area in [...] dressing was applied on the injection site. Brachial Plexus injection After explaining the risks, [...] dressing was applied on the injection site. ASSESSMENT AND PLAN: 1. Nerve root and plexus disorder, unspecified - bupivacaine (Marcaine) 0.5 % injection 5 mg - dexAMETHasone sod phos (Decadron) injection 4 mg I will bring her back in 4-6 weeks to see if she has received 50% or greater pain relief and at that time I will repeat the injections if needed. 2. Trochanteric bursitis of both hips (Primary) - bupivacaine (Marcaine) 0.5 % injection 5 mg - dexAMETHasone sod phos (Decadron) injection 4 mg I will bring her back in 4-6 weeks to see if she has received 50% or greater pain relief and at that time I will repeat the injections if needed. [id number] Evaluation note* Diagnosis Onset Date Resolution Status Admit Date Depression, major, recurrent , mild acute October 04 9:29am NABIL (generalized anxiety disorder) acute October 04 9:29am Gastroesophageal reflux dise ase with esophagitis without hemorrhage acute October 04 9:29am Nausea acute October 04, 2024 9:29am Primary hypertension acute Eren kaitlynn 2024 9:29am Stage 3a chronic kidney disease acut e October 04, 2024 9:29am NABIL (generalized anxiety disorder) acute October 18 025 11:01am Gastroesophageal reflux dise ase with esophagitis without hemorrhage acute October 18 025 11:01am IBS (irritable bowel syndrome) acute October 18, 2024 11:01am Nausea acute October 18, 2024 11:01am Primary hypertension acute Febr uary 2024 11:01am Stage 3a chronic kidney disease acut e October 18, 2024 11:01am Acute bronchitis due to othe r specified organisms acute November 15, 2024 2:28pm Mucopurulent chronic bronchitis acut e November 15, 2024 2:28pm PA (pernicious anemia) acute [facility] 2024 2:28pm [facility] Work Phone: 1(304) 261-276501-08-2025 History of Present illness Narrative* Shivam Ponce MD - 09/14/2024 10:20 AM EST Images from the original note were not [...] (gastroesophageal reflux disease) Hiatal hernia HLD (hyperlipidemia) ([facility]) Hx of migraine headaches IBS (irritable bowel syndrome) Multiple sclerosis ([facility]) 1993 Past Surgical History: Procedure Laterality [...] reflexes: Erica's absent. Ankle clonus absent. Coordination Hruqoj-xi-sxel, rapid alternating movements and izfv-bb-qyrd normal bilaterally without dysmetria. Gait Normal casual, toe, heel and tandem gait. Romberg is absent. PROCEDURE: Bursa Injection After explaining the risks, complications, and benefits of the procedure, the patient leaned over the exam table. Allergies were reviewed, the consent was signed. After palpating the bilateralgreatertrochanter and identifying the most tender area in [...] by mouth at bedtime for 10 days Dispense:30 tablet; Refill: 3 2. Trochanteric bursitis of [...] her injections if needed. documented in this encounterHCA Midwest [id number] Evaluation note* Diagnosis Onset Date Resolution Status Admit Date Primary hypertension acute Dece mber 30th, 2024 2:23pm Stage 3a chronic kidney disease acut e September 05, 2024 2:23pm Abdominal pain deleted August 092023 2:23pm Acute diverticulitis deleted Dece 2023 2:23pm Dehydration deleted August 2:23pm Cervical strain, acute acute Ja nuary 2024 1:59pm Primary hypertension acute 2024 1:59pm Stage 3a chronic kidney disease acut e September 13, 2024 1:59pm Acute diverticulitis deleted 2024 1:59pm Anemia, unspecified deleted 2024 1:59pm Hypocalcemia deleted September 13, 2024 1:59pm Hypokalemia deleted September 13, 2024 1:59pm Depression, major, recurrent , mild acute October 04 9:29am NABIL (generalized anxiety disorder) acute October 04 9:29am Gastroesophageal reflux dise ase with esophagitis without hemorrhage acute October 04 9:29am Nausea acute October 04, 2024 9:29am Primary hypertension acute 2024 9:29am Stage 3a chronic kidney disease acut e October 04, 2024 9:29am NABIL (generalized anxiety disorder) acute October 18, 025 11:01am Gastroesophageal reflux dise ase with esophagitis without hemorrhage acute October 18 025 11:01am IBS (irritable bowel syndrome) acute October 18, 2024 11:01am Nausea acute October 18, 2024 11:01am Primary hypertension acute Febr uary 2024 11:01am Stage 3a chronic kidney disease acut e October 18, 2024 11:01am Acute bronchitis due to othe r specified organisms acute November 15, 2024 2:28pm Mucopurulent chronic bronchitis acut e November 15, 2024 2:28pm PA (pernicious anemia) acute [facility] 2024 2:28pm [facility] Work Phone: 1(124) 937-646212-12-2024 History of Present illness Narrative* RT. Vikki Jean-Baptiste - 08/18/2024 11:40 AM EST Images from the original note were not [...] (gastroesophageal reflux disease) Hiatal hernia HLD (hyperlipidemia) ([facility]) Hx of migraine headaches IBS (irritable bowel syndrome) Multiple sclerosis ([facility]) 1993 Past Surgical History: Procedure Laterality [...] folder. ASSESSMENT AND PLAN: documented in this [facility]11-13-2024 Evaluation note* Diagnosis Onset Date Resolution Status [...] ase with esophagitis without hemorrhage acute August 16, 11:01am Abdominal pain acute August 092023 2:23pm Acute diverticulitis acute Dece 2023 2:23pm Dehydration acute August 2:23pm Primary hypertension acute Dece 2023 2:23pm Stage 3a chronic kidney disease acut e September 05, 2024 2:23pm [facility] Work Phone: 1(851) 732-448611-13-2024 Evaluation note* Diagnosis Onset Date Resolution Status Admit Date Concussion acute July 20, 2024 10:58am Dizzy spells acute July 10:58am Fatigue acute July 20, 2024 10:58am Primary hypertension acute Nov2023 10:58am Stage 3a chronic kidney disease acut e July 20, 2024 10:58am Abdominal pain acute August 072023 11:01am Diarrhea acute August 16, 2024 11:01am Diverticulosis acute August 072023 11:01am Gastroesophageal reflux dise ase with esophagitis without hemorrhage acute August 16, 2 024 11:01am Abdominal pain acute August 092023 2:23pm Acute diverticulitis acute Dece 2023 2:23pm Dehydration acute August 2:23pm Primary hypertension acute Dece 2023 2:23pm Stage 3a chronic kidney disease acut e September 05, 2024 2:23pm Acute diverticulitis acute Eren 2024 1:59pm Anemia, unspecified acute Sepua ry 2024 1:59pm Diverticulosis acute September 1:59pm Primary hypertension acute Eren 2024 1:59pm Stage 3a chronic kidney disease acut e September 13, 2024 1:59pm [facility] Work Phone: 1(756) 959-121711-13-2024 Evaluation note* Diagnosis Onset Date Resolution Status Admit Date Primary hypertension acute Nove 2023 10:58am Stage 3a chronic kidney disease acut e July 20, 2024 10:58am Concussion deleted July 20, 2024 10:58am Dizzy spells deleted July 10:58am Fatigue deleted July 20, 2024 10:58am Diverticulosis acute August 072023 11:01am Gastroesophageal reflux dise ase with esophagitis without hemorrhage acute August 16, 2 024 11:01am Abdominal pain deleted August 072023 11:01am Diarrhea deleted August 16, 2024 11:01am Primary hypertension acute Dece 2023 2:23pm Stage 3a chronic kidney disease acut e September 05, 2024 2:23pm Abdominal pain deleted August 092023 2:23pm Acute diverticulitis deleted 2023 2:23pm Dehydration deleted August 2:23pm Cervical strain, acute acute [facility] 2024 1:59pm Hypocalcemia acute September 13, 2024 1:59pm Hypokalemia acute September 13, 2024 1:59pm Primary hypertension acute Eren 2024 1:59pm Stage 3a chronic kidney disease acut e September 13, 2024 1:59pm Acute diverticulitis deleted 2024 1:59pm Anemia, unspecified deleted 2024 1:59pm Primary hypertension acute 2024 9:29am Stage 3a chronic kidney disease acut e October 04, 2024 9:29am [facility] Work Phone: 1(827) 447-745711-13-2024 Evaluation note* Diagnosis Onset Date Resolution Status Admit Date Primary hypertension acute Nove 2023 10:58am Stage 3a chronic kidney disease acut e July 20, 2024 10:58am Concussion deleted July 20, 2024 10:58am Dizzy spells deleted July 10:58am Fatigue deleted July 20, 2024 10:58am Diverticulosis acute August 072023 11:01am Gastroesophageal reflux dise ase with esophagitis without hemorrhage acute August 16 11:01am Abdominal pain deleted August 072023 11:01am Diarrhea deleted August 16, 2024 11:01am Primary hypertension acute 2023 2:23pm Stage 3a chronic kidney disease acut e September 05, 2024 2:23pm Abdominal pain deleted August 092023 2:23pm Acute diverticulitis deleted 2023 2:23pm Dehydration deleted August 2:23pm Cervical strain, acute acute [facility] 2024 1:59pm Primary hypertension acute 2024 1:59pm Stage 3a chronic kidney disease acut e September 13, 2024 1:59pm Acute diverticulitis deleted 2024 1:59pm Anemia, unspecified deleted 2024 1:59pm Hypocalcemia deleted September 13, 2024 1:59pm Hypokalemia deleted September 13, 2024 1:59pm Depression, major, recurrent , mild acute October 04 9:29am NABIL (generalized anxiety disorder) acute October 04 9:29am Gastroesophageal reflux dise ase with esophagitis without hemorrhage acute October 04 9:29am Nausea acute October 04, 2024 9:29am Primary hypertension acute Eren kaitlynn 2024 9:29am Stage 3a chronic kidney disease acut e October 04, 2024 9:29am Depression, major, recurrent , mild acute October 18 11:01am NABIL (generalized anxiety disorder) acute October 18 11:01am Gastroesophageal reflux dise ase with esophagitis without hemorrhage acute October 18 11:01am Nausea acute October 18, 2024 11:01am Primary hypertension acute Febr uary 2024 11:01am Stage 3a chronic kidney disease acut e October 18, 2024 11:01am [facility] Work Phone: 1(604) 244-391910-31-2024 History of Present illness Narrative* Cami Desir, [...] (gastroesophageal reflux disease) Hiatal hernia HLD (hyperlipidemia) ([facility]) Hx of migraine headaches IBS (irritable bowel syndrome) Multiple sclerosis ([facility]) 1993 Past Surgical History: Procedure Laterality [...] injections a this time. documented in this encounterHCA Midwest [id number] Telephone encounter Note* Telephone Encounter - Trixie Koenig - 06/02/2024 8:52 AM EDT Pt requested a refill of the decadron tablets be sent to [id number] in [place] [facility] [id number] Miscellaneous Notes* Telephone Encounter - Trixieeduardo Quigleyce - 06/02/2024 8:52 AM EDT Pt requested a refill of the decadron tablets be sent to [id number] [place] documented in this encounterHCA Midwest [id number] History of Present illness Narrative* Roxane Wallis [...] concussion on May 13. She was in [facility]. She states it flared up her [...] (gastroesophageal reflux disease) Hiatal hernia HLD (hyperlipidemia) ([facility]) Hx of migraine headaches IBS (irritable bowel syndrome) Multiple sclerosis ([facility]) 1993 Past Surgical History: Procedure Laterality [...] reflexes: Erica's absent. Ankle clonus absent. Coordination Qjqaxr-sq-gkrt, rapid alternating movements and sjbn-ky-sjaa normal bilaterally without dysmetria. Gait Normal casual, [...] the injections if needed. documented in this encounterHCA Midwest [id number] Evaluation note* Diagnosis Onset Date Resolution Status [...] chronic kidney disease acute July 20 10:58am [facility] Work Phone: 1(436) 492-446409-04-2024 Evaluation note* Diagnosis Onset Date Resolution Status [...] disease acute July 20, 2 024 10:58am [facility] Work Phone: 1(432) 827-371308-27-2024 History of Present illness Narrative* Yesica Villagomez MA - 05/03/2024 11:15 AM EDT Images from the original note were not included. Aamir Dao, DO Obstetrics and Gynecology Gina Pierre 1940 05/03/24 [id number] Yearly Wellness Exam Chief Complaint Patient presents with Gynecologic Exam Medicare off year. LMP: SHANTA BSO 1984 HRT: Premarin cream - satisfied, but would like to discuss how long to be on it Last pap 04-28-23 neg. Last mammogram 05-13-23 [facility]. Denies breast, urinary, or bowel concerns. Visit [...] Past Medical History: Diagnosis Date Cataracts, bilateral 2010 GERD (gastroesophageal reflux disease) Hiatal hernia HLD (hyperlipidemia) ([facility]) Hx of migraine headaches IBS (irritable bowel syndrome) Multiple sclerosis ([facility]) 1993 ROS Const: Denies appetite change, fever, [...] costovertebral angle tenderness, no obvious scoliosis/kyphosis. 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 Could maintainhormone using once weekly. 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 Entered by Yesica Villagomez MA acting as scribe for Dr. Aamir Dao. Signature Yesica Villagomez MA Date 05/03/24 . Time 11:46 AM . The documentation recorded by the scribe accurately reflectsthe service(s) I personally performed and the decisions I made. Signature Jan Dao D.O. Date 05/03/24 Time 5:00PM. documented in this encounterHCA Midwest [id number] Evaluation note* Diagnosis Onset Date Resolution Status Gastroesophageal reflux dise ase with esophagitis without hemorrhage acute Lumbar spondylosis acute PA (pernicious anemia) acute Primary hypertension acute Stage 3a chronic kidney disease acute Venous insufficiency (chronic) (peripheral) acute Acute sinusitis noneactive [facility] Work Phone: 1(146) 947-855404-22-2024 Evaluation note* Diagnosis Onset Date Resolution Status Gastroesophageal reflux dise ase with esophagitis without hemorrhage acute Lumbar spondylosis acute PA (pernicious anemia) acute Primary hypertension acute Stage 3a chronic kidney disease acute Venous insufficiency (chronic) (peripheral) acute Acute sinusitis noneactive [facility] Work Phone: 1(506) 285-358002-07-2024 History of Present illness Narrative* Shivam Ponce [...] (gastroesophageal reflux disease) Hiatal hernia HLD (hyperlipidemia) ([facility]) Hx of migraine headaches IBS (irritable bowel syndrome) Multiple sclerosis ([facility]) 1993 Past Surgical History: Procedure Laterality [...] reflexes: Erica's absent. Ankle clonus absent. Coordination Rmlsfq-wk-netl, rapid alternating movements and pdfc-bm-pcim normal bilaterally without dysmetria. Gait Normal casual, [...] nerve dysfunction including polyneuropathy. documented in this encounterHCA Midwest [id number] Evaluation note* Encounter Date Diagnosis Assessment Notes Treatment Notes Treatment Clinical Notes Sep, Acute non-recurrent maxillary sinusitis (ICD-10 - J01.00) Instructed to use Robitussin or Mucinex for cough, saline or Flonase NS for congestion, Tylenol for pain and fever. Sep, Multiple sclerosis (ICD-10 - G35) weakens her immune system placing her at risk for more seriou, prolonged illness [employer] Other 01-09-2024 Evaluation note* Encounter Date Diagnosis Assessment Notes Treatment Notes Treatment Clinical Notes Sep, Pernicious anemia (ICD-10 - D51.0) [facility] Other 12-22-2023 Evaluation note* Encounter Date Diagnosis Assessment Notes Treatment Notes Treatment Clinical Notes Aug, Flu-like symptoms (ICD-10 - R68.89) Aug, Acute non-recurrent maxillary sinusitis (ICD-10 - J01.00) [employer] Other 12-19-2023 Evaluation note* Encounter Date Diagnosis Assessment Notes Treatment Notes Treatment Clinical Notes Aug, Abdominal pain (ICD-10 - R10.9) Aug, Nausea & vomiting (ICD-10 - R11.2) Aug, GERD (gastroesophageal reflux disease) (ICD-10 - K21.9) Pt is doing well on the pantoprazole. Pt RTO YEARLY Aug, Early satiety (ICD-10 - R68.81) Aug, Loss of appetite (ICD-10 - R63.0) [facility] Other 12-07-2023 Evaluation note* Encounter Date Diagnosis Assessment Notes Treatment Notes Treatment Clinical Notes Aug, Pernicious anemia (ICD-10 - D51.0) [facility] Other 11-02-2023 Evaluation note* Encounter Date Diagnosis Assessment Notes Treatment Notes Treatment Clinical Notes Jul, Pernicious anemia (ICD-10 - D51.0) [employer] Other 10-02-2023 Evaluation note* Encounter Date Diagnosis Assessment Notes Treatment Notes Treatment Clinical Notes Jun, Pernicious anemia (ICD-10 - D51.0) [employer] Other 09-22-2023 Evaluation note* Encounter Date Diagnosis Assessment Notes Treatment Notes Treatment Clinical Notes May, Anemia, unspecified type (ICD-10 - D64.9) May, Fatigue, unspecified type (ICD-10 - R53.83) [employer] Other 09-20-2023 Evaluation note* Encounter Date Diagnosis [...] - R53.83) Check labs: CBC, B12, TSH [facility] Other 08-31-2023 Evaluation note* Encounter Date Diagnosis Assessment Notes Treatment Notes Treatment Clinical Notes Apr, Pernicious anemia (ICD-10 - D51.0) [employer] Other 07-31-2023 Evaluation note* Encounter Date Diagnosis Assessment Notes Treatment Notes Treatment Clinical Notes Mar, Pernicious anemia (ICD-10 - D51.0) [employer] Other 07-10-2023 Evaluation note* Encounter Date Diagnosis Assessment Notes Treatment Notes Treatment Clinical Notes Mar, Pernicious anemia (ICD-10 - D51.0) [employer] Other 07-07-2023 Evaluation note* Encounter Date Diagnosis Assessment Notes Treatment Notes Treatment Clinical Notes Mar, PA (pernicious anemia) (ICD-10 - D51.0) [employer] Other 07-05-2023 Evaluation note* Encounter Date Diagnosis Assessment Notes Treatment Notes Treatment Clinical Notes Mar, Acute pneumonia (ICD-10 - J18.9) Mar, Anemia, unspecified type (ICD-10 - D64.9) Mar, Stage 3a chronic kidney disease (ICD-10 - N18.31) [employer] Other 06-06-2023 Evaluation note* Encounter Date Diagnosis [...] FA supplement. Recheck FA/B12, CBC in month [employer] Other 05-30-2023 Evaluation note* Encounter Date Diagnosis Assessment Notes Treatment Notes Treatment Clinical Notes January, Acute pneumonia (ICD-10 - J18.9) January, Anemia, unspecified type (ICD-10 - D64.9) January, Stage 3a chronic kidney disease (ICD-10 - N18.31) [employer] Other 05-05-2023 Evaluation note* Encounter Date Diagnosis Assessment Notes Treatment Notes Treatment Clinical Notes January, Folic acid deficiency (ICD-10 - E53.8) [employer] Other 04-27-2023 Evaluation note* Encounter Date Diagnosis [...] and exerci se with continued statin therapy. [employer] Other 04-12-2023 Evaluation note* Encounter Date Diagnosis [...] Weight loss. Dec, Anasarca (ICD-10 - R60.1) [employer] Other 04-03-2023 Evaluation note* Encounter Date Diagnosis Assessment Notes Treatment Notes Treatment Clinical Notes Dec, Seasonal allergic rhinitis (ICD-10 - J30.2) [employer] Other 03-13-2023 Evaluation note* Encounter Date Diagnosis [...] Daily stretching exercises, exercise, avoid strenuous lifting. [employer] Other 12-28-2022 Evaluation note* Encounter Date Diagnosis Assessment Notes Treatment Notes Treatment Clinical Notes Aug, Diarrhea (ICD-10 - R19.7) [facility] Other 03-31-2022 Evaluation note* Encounter Date Diagnosis Assessment Notes Treatment Notes Treatment Clinical Notes Nov, Diarrhea (ICD-10 - R19.7) [employer] Other 03-10-2022 Evaluation note* Encounter Date Diagnosis [...] Nov, Loss of appetite (ICD-10 - R63.0) [employer] Other Evaluation noteNo InformationNort [employer] Other Evaluation noteNo assessment information available [facility] Work Phone: Evaluation noteNort [employer] Other Evaluation note* Diagnosis Brachial plexus neuropathy- Primary Brachial plexus lesions Multiple sclerosis (CMS/HCC) Multiple sclerosis documented in this encounter [facility]* Diagnosis Onset Date Resolution Status Gastroesophageal reflux dise ase with esophagitis without hemorrhage acute Lumbar spondylosis acute PA (pernicious anemia) acute Primary hypertension acute Stage 3a chronic kidney disease acute Venous insufficiency (chronic) (peripheral) acute Acute sinusitis noneactive [facility] Work Phone: Evaluation note* Diagnosis Onset Date Resolution Status Foot pain, left acute Gastroesophageal reflux dise ase with esophagitis without hemorrhage acute Acute diverticulitis noneact bhargavi Nausea noneactive [facility] Work Phone: Evaluation note* Diagnosis Onset Date Resolution Status Foot pain, left acute Gastroesophageal reflux dise ase with esophagitis without hemorrhage acute Acute diverticulitis noneact bhargavi Nausea noneactive Acute bronchitis due to other specified organisms acute Acute exacerbation of chroni c obstructive airways disease acute [facility] Work Phone: Evaluation note* Diagnosis Onset [...] acute Stage 3a chronic kidney disease acute [facility] Work Phone: Evaluation note* Diagnosis Onset [...] acute Stage 3a chronic kidney disease acute [facility] Work Phone: Evaluation note* Diagnosis Onset [...] acute Stage 3a chronic kidney disease acute [facility] Work Phone: Evaluation note* Diagnosis Trochanteric bursitis of both hips- Primary Other nerve root and plexus disorders documented in this encounter [facility]* Diagnosis Other nerve root and plexus disorders- Primary Trochanteric bursitis of both hips documented in this encounter [facility]* Diagnosis Postmenopausal atrophic vaginitis- Primary Breast cancer screening by mammogram Hormone replacement therapy documented in this encounter [facility]* Diagnosis Trochanteric bursitis of both hips- Primary Other nerve root and plexus disorders documented in this encounter [facility]* Diagnosis Trochanteric bursitis of both hips- Primary documented in this encounter [facility]* Diagnosis Trochanteric bursitis of both hips- Primary Cervical paraspinal muscle spasm Spasm of muscle Other nerve root and plexus disorders documented in this encounter [facility]* Diagnosis Trochanteric bursitis of both hips- Primary Nerve root and plexus disorder, unspecified documented in this encounter [facility]* Diagnosis Trochanteric bursitis of both hips- Primary Nerve root and plexus disorder, unspecified documented in this encounter [facility] HealthcareHistory general Narrative - Reported* Type Description Date Surgical History appenedectomy Surgical History left ovary Surgical History total hysterectomy [employer] Other History general Narrative - Reported* Type [...] 2020 Surgical History EGD Hospitalization History SEE [employer] Other [employer] general Narrative - Reported* Type Description Date [...] 2020 Surgical History EGD Hospitalization History SEE [employer] Other [employer] general Narrative - Reported[facility] Other [employer] Narrative - Reported[facility] Other Chief Complaint and Reason for Visit Chief Complaint Screening Chief Complaint Sore Throat Sinuses - [phone] B-12 SHOT Chief Complaint Sinuses - B-12 [...] Chief Complaint stomach pain, nausea B12 Shot [phone] cough, congestion for 3 days Reason for Visit Foot pain, left Gastroesophageal reflux disease with esophagitis without hemorrhage Acute diverticulitis Nausea Acute bronchitis due to other specified organisms Acute exacerbation of chronic obstructive airways disease Chief Complaint stomach pain, nausea B12 Shot [phone] cough, congestion for 3 days Fall-L Shoulder, Head/Dr. Note Reason for Visit Foot pain, left Gastroesophageal reflux disease with esophagitis without hemorrhage Acute diverticulitis Nausea Acute bronchitis due to other specified organisms Acute exacerbation of chronic obstructive airways disease Chief Complaint stomach pain, nausea B12 Shot [phone] cough, congestion for 3 days Fall-L Shoulder, [...] chronic kidney disease Chief Complaint B12 Shot [phone] cough, congestion for 3 days Fall-L Shoulder, [...] chronic kidney disease Chief Complaint B12 Shot [phone] cough, congestion for 3 days Fall-L Shoulder, [...] chronic kidney disease Chief Complaint B12 Shot [phone] cough, congestion for 3 days Fall-L Shoulder, [...] chronic kidney disease Chief Complaint Admit Date [phone] cough, congestion for 3 day s May [...] 10:46am Stage 3a chronic kidney disease [facility] 2023 10:46am Concussion May 27, 2024 11:38am Contusion of left shoulder May 11:38am Primary hypertension May 27 11:38am Stage 3a chronic kidney disease [facility] 2023 11:38am Fatigue June 14, 2024 11 :05am Medicare annual wellness visit, subseque nt June 14, 2024 11:05am Primary hypertension June 14, 2024 1 1:05am [facility] 11:05am Stage 3a chronic kidney disease June 14, 2024 11:05am Concussion July 20, 2024 10:58am Contusion of left shoulder July 10:58am Fatigue July 20, 2024 10:58am Primary hypertension July 20, 2024 10:58am Stage 3a chronic kidney disease July 20, 2024 10:58am Chief Complaint Admit Date [phone] cough, congestion for 3 day s May [...] 17 10:46am Stage 3a chronic kidney disease [facility] 2023 10:46am Concussion May 27, 2024 11:38am Contusion of left shoulder May 11:38am Primary hypertension May 27 11:38am Stage 3a chronic kidney disease [facility] 2023 11:38am Fatigue June 14, 2024 11 :05am [facility], 2024 11:05am Primary hypertension June 14, 2024 1 1:05am [facility] 11:05am Stage 3a chronic kidney disease [...] chronic kidney disease September 13, 2024 1:59pm Chief Complaint Admit Date 1 month f/u July 20, 2024 10:58am b12 shot July 22, 2024 11:31am 1 YEAR FOLLOW UP/GERD August 16 11:01am stomach pain, weak, ear ache,sore throat , September 05, 2024 2:23pm Unknown September 05, 2024 3:31pm Amb Documentation September 09, 2024 9: 21am TBH September 13, 2024 1: 59pm TBH:Dizziness October 04, 2024 9 :29am Reason for Visit Admit Date Primary hypertension July 20, 2024 10:58am Stage 3a chronic kidney disease July 20, 2024 10:58am Concussion July 20, 2024 10:58am Dizzy spells July 20, 2024 10:58am Fatigue July 20, 2024 10:58am Diverticulosis August 16, 2024 11:01am Gastroesophageal reflux dise ase with esophagitis without hemorrhage August 16, 2024 11:01am Abdominal pain August 16, 2024 11:01am Diarrhea August 16, 2024 11:01am Primary hypertension September 05, 2024 2:23pm Stage 3a chronic kidney disease September 05, 2024 2:23pm Abdominal pain September 05, 2024 2:23pm Acute diverticulitis September 05, 2024 2:23pm Dehydration September 05, 2024 2:23pm Cervical strain, acute September 13, 2024 1:59pm Hypocalcemia September 13, 2024 1: 59pm Hypokalemia September 13, 2024 1: 59pm Primary hypertension September 13, 2024 1 :59pm Stage 3a chronic kidney disease September 13, 2024 1:59pm Acute diverticulitis September 13, 2024 1 :59pm Anemia, unspecified September 13, 2024 1: 59pm Primary hypertension October 04, 2024 9:29am Stage 3a chronic kidney disease October 04, 2024 9:29am Chief Complaint Admit Date 1 month f/u July 20, 2024 10:58am b12 shot July 22, 2024 11:31am 1 YEAR FOLLOW UP/GERD August 16 11:01am stomach pain, weak, ear ache,sore throat , September 05, 2024 2:23pm Unknown September 05, 2024 3:31pm Amb Documentation September 09, 2024 9: 21am TBH September 13, 2024 1: 59pm TBH:Dizziness October 04, 2024 9 :29am 3 month f/u October 18, 2024 11:01am Reason for Visit Admit Date Primary hypertension July 20, 2024 10:58am Stage 3a chronic kidney disease July 20, 2024 10:58am Concussion July 20, 2024 10:58am Dizzy spells July 20, 2024 10:58am Fatigue July 20, 2024 10:58am Diverticulosis August 16, 2024 11:01am Gastroesophageal reflux dise ase with esophagitis without hemorrhage August 16, 2024 11:01am Abdominal pain August 16, 2024 11:01am Diarrhea August 16, 2024 11:01am Primary hypertension September 05, 2024 2:23pm Stage 3a chronic kidney disease September 05, 2024 2:23pm Abdominal pain September 05, 2024 2:23pm Acute diverticulitis September 05, 2024 2:23pm Dehydration September 05, 2024 2:23pm Cervical strain, acute September 13, 2024 1:59pm Primary hypertension September 13, 2024 1 :59pm Stage 3a chronic kidney disease September 13, 2024 1:59pm Acute diverticulitis September 13, 2024 1 :59pm Anemia, unspecified September 13, 2024 1: 59pm Hypocalcemia September 13, 2024 1: 59pm Hypokalemia September 13, 2024 1: 59pm Depression, major, recurrent, mild [facility] 2024 9:29am NABIL (generalized anxiety disorder) [facility] 2024 9:29am Gastroesophageal reflux dise ase with esophagitis without hemorrhage October 04, 2024 9:29am Nausea October 04, 2024 9 :29am Primary hypertension October 04, 2024 9:29am Stage 3a chronic kidney disease October 04, 2024 9:29am Depression, major, recurrent, mild Febru 2024 11:01am NABIL (generalized anxiety disorder) u 2024 11:01am Gastroesophageal reflux dise ase with esophagitis without hemorrhage October 18, 2024 11:01am Nausea October 18, 2024 11:01am Primary hypertension October 18, 2024 11:01am Stage 3a chronic kidney disease October 18, 2024 11:01am Chief Complaint Admit Date stomach pain, weak, ear ache,sore throat , September 05, 2024 2:23pm Unknown September 05, 2024 3:31pm Amb Documentation September 09, 2024 9: 21am TBH September 13, 2024 1: 59pm TBH:Dizziness October 04, 2024 9 :29am 3 month f/u October 18, 2024 11:01am Cough/Weak November 15, 2024 2:2 8pm Reason for Visit Admit Date Primary hypertension September 05, 2024 2:23pm Stage 3a chronic kidney disease September 05, 2024 2:23pm Abdominal pain September 05, 2024 2:23pm Acute diverticulitis September 05, 2024 2:23pm Dehydration September 05, 2024 2:23pm Cervical strain, acute September 13, 2024 1:59pm Primary hypertension September 13, 2024 1 :59pm Stage 3a chronic kidney disease September 13, 2024 1:59pm Acute diverticulitis September 13, 2024 1 :59pm Anemia, unspecified September 13, 2024 1: 59pm Hypocalcemia September 13, 2024 1: 59pm Hypokalemia September 13, 2024 1: 59pm Depression, major, recurrent, mild Janua ry 2024 9:29am NABIL (generalized anxiety disorder) Janua ry 2024 9:29am Gastroesophageal reflux dise ase with esophagitis without hemorrhage October 04, 2024 9:29am Nausea October 04, 2024 9 :29am Primary hypertension October 04, 2024 9:29am Stage 3a chronic kidney disease October 04, 2024 9:29am NABIL (generalized anxiety disorder) Febru kaitlynn 2024 11:01am Gastroesophageal reflux dise ase with esophagitis without hemorrhage October 18, 2024 11:01am IBS (irritable bowel syndrome) October 18, 2024 11:01am Nausea October 18, 2024 11:01am Primary hypertension October 18, 2024 11:01am Stage 3a chronic kidney disease October 18, 2024 11:01am Acute bronchitis due to other specified organisms November 15, 2024 2:28pm Mucopurulent chronic bronchitis November 152024 2:28pm PA (pernicious anemia) November 15, 2024 2:28pm Chief Complaint Admit Date TBH:Dizziness October 04, 2024 9 :29am 3 month f/u October 18, 2024 11:01am Cough/Weak November 15, 2024 2:2 8pm B12 Shot December 16, 2024 11: 40am Reason for Visit Admit Date Depression, major, recurrent, mild Janua ry 2024 9:29am NABIL (generalized anxiety disorder) Janua ry 2024 9:29am Gastroesophageal reflux dise ase with esophagitis without hemorrhage October 04, 2024 9:29am Nausea October 04, 2024 9 :29am Primary hypertension October 04, 2024 9:29am Stage 3a chronic kidney disease October 04, 2024 9:29am NABIL (generalized anxiety disorder) Febru kaitlynn 2024 11:01am Gastroesophageal reflux dise ase with esophagitis without hemorrhage October 18, 2024 11:01am IBS (irritable bowel syndrome) October 18, 2024 11:01am Nausea October 18, 2024 11:01am Primary hypertension October 18, 2024 11:01am Stage 3a chronic kidney disease October 18, 2024 11:01am Acute bronchitis due to other specified organisms November 15, 2024 2:28pm Mucopurulent chronic bronchitis November 152024 2:28pm PA (pernicious anemia) November 15, 2024 2:28pm Chief Complaint Admit Date Cough/Weak November 15, 2024 2:2 8pm B12 Shot December 16, 2024 11: 40am 3 month f/u January 19, 2025 10:55 am Reason for Visit Admit Date Acute bronchitis due to other specified organisms November 15, 2024 2:28pm Mucopurulent chronic bronchitis November 152024 2:28pm PA (pernicious anemia) November 15, 2024 2:28pm PA (pernicious anemia) December 16, 2024 11:40am Depression, major, recurrent, mild January 052024 10:55am NABIL (generalized anxiety disorder) January 052024 10:55am Gastroesophageal reflux dise ase with esophagitis without hemorrhage January 19, 2025 10:55am IBS (irritable bowel syndrome) January 19, 2025 10:55am Primary hypertension January 19, 2025 10:5 5am Stage 3a chronic kidney disease May 15th , 2025 10:55am Family History Relationship Condition Age at Onset [...] on itLast pap 04-28-23 neg.Last mammogram 05-13-23 [facility]. Denies breast, urinary, or bowel concerns. Care Teams (unrecognized sec tion and content) Team Status: Active Member Role Status Dates Kyle Gottlieb DO Primary Care Provider Active Team Status: Inactive Member Role Status Dates Kyle Gottlieb DO Primary Care Provide r, Attending Provider Active Start: November 15, 2024 End: November 15, 2024 Team Status: Inactive Member Role Status Dates Kyle Gottlieb DO Primary Care Provider Active Start: December 16, 2024 End: December 16, 2024 Aliza Daniel MD Attending Provider Active St art: December 16, 2024 End: December 16, 2024 Team Status: Inactive Member Role Status Dates Kyle Gottlieb DO Primary Care Provide r, Attending Provider Active Start: January 19, 2025 End: January 19, 2025 Team Status: Active Member Role Status Dates Kyle Gottlieb DO Primary Care Provider Active Team Status: Active Member Role Status Dates Kyle Ball , DO Primary Care Provide r, Attending Provider Active Start: September 23, 2024 Team Status: Active Member Role Status Dates Kyle Gottlieb , DO Primary Care Provide r, Attending Provider Active Start: September 30, 2024 Team Status: Active Member Role Status Dates Kyle Gottlieb , DO Primary Care Provide r, Attending Provider Active Start: October 02, 2024 Team Status: Inactive Member Role Status Dates Kyle Gottlieb DO Primary Care Provide r, Attending Provider Active Start: October 04, 2024 End: October 04, 2024 Team Status: Inactive Member Role Status Dates Kyle Gottlieb DO Primary Care Provide r, Attending Provider Active Start: October 18, 2024 End: October 18, 2024 Team Status: Inactive Member Role Status Dates Kyle Gottlieb DO Primary Care Provide r, Attending Provider Active Start: November 15, 2024 End: November 15, 2024 Team Status: Inactive Member Role Status Dates Kyle Gottlieb DO Primary Care Provider Active Start: December 16, 2024 End: December 16, 2024 Aliza Daniel MD Attending Provider Active St art: December 16, 2024 End: December 16, 2024 Team Status: Inactive Member Role Status Dates Kyle Gottlieb DO Primary Care Provider Active Aamir Dao , DO Attending Provider, Referring Diana maxwell Active Team Status: Inactive Member Role Status Dates Kyle Gottlieb , DO Primary Care Provider Active Aamir Dao , DO Attending Provider Active Meter Shop Superintendent Relationship Specialty Start Date End Date Kyle Gottlieb MD [address] [place] [address] PCP - General Internal Medicine 02/16/23 Meter Shop Superintendent Relationship Specialty Start Date End Date Kyle Gottlieb MD [address] [place] [phone] PCP - General Internal Medicine 02/16/23 Team Status: Inactive Member Role Status Dates Tonya Harrison APRN RECORDS MANAGEMENT CLERK-C Attending Provider Act [email or web address] Start: August 25, [...] June 23, 2024 End: June 23, 2024 Meter Shop Superintendent Relationship Specialty Start Date End Date Kyle Gottlieb MD [address] [facility] [place] [address] PCP - General Internal Medicine 02/16/23 Meter Shop Superintendent Relationship Specialty Start Date End Date Kyle Gottlieb MD [address] [facility] [place] [id number] PCP - General Internal Medicine 02/16/23 Team Status: Inactive Member Role Status Dates Kyle Gottlieb DO Primary Care Provide r, Attending Provider Active Start: July 20, 2024 End: July 20, 2024 Team Status: Inactive Member Role Status Dates Kyle Gottlieb DO Primary Care Provide r, Attending Provider Active Start: July 22, 2024 End: July 22, 2024 Meter Shop Superintendent Relationship Specialty Start Date End Date Kyle Gottlieb MD [address] [facility] [place] [address] PCP - General Internal Medicine 02/16/23 Meter Shop Superintendent Relationship Specialty Start Date End Date Kyle Gottlieb MD [address] [facility] [place] [address] PCP - General Internal Medicine 02/16/23 Meter Shop Superintendent Relationship Specialty Start Date End Date Kyle Gottlieb MD [address] [facility] [place] [place] [address] PCP - General Internal Medicine 02/16/23 Meter Shop Superintendent Relationship Specialty Start Date End Date Kyle Gottlieb MD [address] [facility] [place] [address] PCP - General Internal Medicine 02/16/23 Meter Shop Superintendent Relationship Specialty Start Date End Date Kyle Gottlieb MD [address] [facility] [place] [place] [phone] PCP - General Internal Medicine 02/16/23 Meter Shop Superintendent Relationship Specialty Start Date End Date Kyle Gottlieb MD [address] [facility] [place] [phone] PCP - General Internal Medicine 02/16/23 Meter Shop Superintendent Relationship Specialty Start Date End Date Kyle Gottlieb MD [address] [facility] [place] [address] PCP - General Internal Medicine 02/16/23 Team [...] September 13, 2024 End: September 13, 2024 Meter Shop Superintendent Relationship Specialty Start Date End Date Kyle Gottlieb MD [address] [facility] [place] [address] PCP - General Internal Medicine 02/16/23 Team Status: Active Member Role Status Dates Kyle Gottlieb DO Primary Care Provide r, Attending Provider Active Start: September 06, 2024 Meter Shop Superintendent Relationship Specialty Start Date End Date Kyle Gottlieb MD [address] [place] [phone] PCP - General Internal Medicine 02/16/23 Meter Shop Superintendent Relationship Specialty Start Date End Date Kyle Gottlieb MD [address] [place] [phone] PCP - General Internal Medicine 02/16/23 Meter Shop Superintendent Relationship Specialty Start Date End Date Kyle Gottlieb MD [address] [place] [address] PCP - General Internal Medicine 02/16/23 Meter Shop Superintendent Relationship Specialty Start Date End Date Kyle Gottlieb DO PCP - General Internal Medicine 02/16/23 Team Status: Inactive Member Role Status Dates Kyle Gottlieb DO Primary Care Provide r, Attending Provider Active Start: January 19, 2025 End: January 19, 2025 Goals (unrecognized section and content) Goals may be documented in a n alternate section INFORMATION SOURCE (unrecogn ized section and content) DATE CREATED AUTHOR 02/13/2023 [facility] DATE CREATED AUTHOR AUTHOR'S ORGANIZ ATION 09/08/2024 [facility] DATE CREATED AUTHOR AUTHOR'S ORGANIZ ATION 12/11/2024 [facility] EPIC FOR RECORDS PERTAINING TO PATIENTS WHO ARE [...] BE BASED ON THE PRIMARY CLINICAL RECORDS. [facility] [facility] [facility]. provides no warranty or guarantee of the accuracy or completeness of information in this document.
[2025-02-07 11:39] LABS: Bilirubin Urine NEGATIVE (NEGATIVE); Blood Urine NEGATIVE (NEGATIVE); Clarity Urine CLEAR (CLEAR); Color Urine LT. YELLOW (YELLOW); Glucose Urine UA NEGATIVE (NEGATIVE); Ketones Urine NEGATIVE (NEGATIVE); Leukocyte Esterase Urine NEGATIVE (NEGATIVE); Nitrite Urine NEGATIVE (NEGATIVE); Protein Urine NEGATIVE (NEG/TRACE)
[2025-02-07 11:40] LABS: Basophils Percent Auto 0.2 % (0.2-2.0); Eosinophils Absolute Auto 0.1 10^3/uL (0.0-0.7); Eosinophils Percent Auto 1.6 % (0.9-7.0); Hematocrit 35.1 % (36.0-48.0); Hemoglobin 11.6 g/dL (12.0-16.0); Immature Granulocytes Abs Auto 0.02 10^3/uL (0.00-0.03); Immature Granulocytes Pct Auto 0.4 % (0.0-0.5); Lymphocytes Absolute Auto 0.8 10^3/uL (1.2-3.8); Lymphocytes Percent Auto 18.2 % (20.5-60.0); Mean Corpuscular Volume 90.7 fL (81.0-99.0); Mean Platelet Volume 10.4 fL (9.5-13.5); Monocytes Absolute Auto 0.3 10^3/uL (0.3-0.8); Monocytes Percent Auto 6.3 % (1.7-12.0); Neutrophils Absolute Auto 3.3 10^3/uL (1.4-6.5); Neutrophils Percent Auto 73.3 % (43.0-75.0); Platelet Count 189 10^3/uL (150-450); Red Blood Count 3.87 10^6/uL (4.20-5.40); Red Cell Distribution Width 13.9 % (11.0-15.0); White Blood Count 4.5 10^3/uL (4.0-11.0)
[2025-02-07 11:47] LABS: Bacteria Urine TRACE #/HPF (NONE SEEN); Cast Seen? NONE SEEN #/LPF (NONE SEEN); Crystals Seen? None Seen #/HPF (None Seen); Mucus Urine TRACE (NONE SEEN); RBC Urine NONE SEEN #/HPF (0-2); Squamous Epithelial Cell Urine MODERATE #/LPF (NONE/RARE); Urine Culture Indicated NO; WBC Urine 0-2 #/HPF (NONE SEEN)
[2025-02-07] MEDS: DIAZEPAM 10 MG/2 ML SYRINGE 2.5 MG IV ×2 (11:59→13:51)
[2025-02-07 12:06] LABS: Anion Gap 16.2; BUN Creatinine Ratio 19.8; Calcium 9.2 mg/dL (8.5-10.1); Carbon Dioxide 24.4 mmol/L (21.0-32.0); Chloride 104 mmol/L (98-107); Estimated GFR (African America >60 (>=60 mL/min/1.73m^2); Estimated GFR (Non-African Ame 50 (>=60 mL/min/1.73m^2); Glucose 114 mg/dL (74-106); Potassium 3.6 mmol/L (3.5-5.1); Sodium 141 mmol/L (136-145)
[2025-02-07] MEDS: 0.9 % SODIUM CHLORIDE 500 ML IV (13:51)
[2025-02-07] MEDS: MECLIZINE HCL 12.5 MG TABLET 25 MG PO ×2 (15:44→22:18)
--- NOTE | 2025-02-07 17:44 | P.HP_ITS ---
HPI H&P: HPI History of Present Illness Chief complaint: DIZZINESS Vertigo Narrative: Patient presented to the emergency room, she did work outside for couple hours felt fine when she went to bed woke up and had spinning dizziness while she was laying down, worse when she was up standing, then this has settled down, then again she had it when she was driving and so presented to the emergency room, given multiple medications in ER for vertigo without significant improvement CT scan is negative blood work shows mild dehydration I saw patient up in the medical surgical floor, resting comfortably bed although she was not moving her head, no prodromal symptoms no URI symptoms no UTI symptoms Opioid HPI Opioid Management Most Recent Pain and Opioid Data: Last Pain Scale 4 09/05/24, 23:00 Last Pain Assessment Today, 17:30 Last ORT Total Score 0 Today, 16:25 Last ORT Risk Category Low Risk Today, 16:25 Review of Systems ROS Status of ROS 10 or more systems reviewed and unremark able except as noted in history and below PFSH PFS Medical History (Updated 02/07/25 @ 17:46 by Kamran Zuleta MD) Hiatal hernia ?K44.9 - Diaphragmatic hernia without obstruction or gangrene (ICD-10) Multiple sclerosis ?G35 - Multiple sclerosis (ICD-10) Acute hypokalemia ?E87.6 - Hypokalemia (ICD-10) Dizziness ?R42 - Dizziness and giddiness (ICD-10) Dehydration ?E86.0 - Dehydration (ICD-10) Abdominal pain ?R10.9 - Unspecified abdominal pain (ICD-10) Constipation ?K59.00 - Constipation, unspecified (ICD-10) Surgical History (Updated 02/07/25 @ 17:40 by Leta Liriano RN) History of squamous cell carcinoma excision ?Z98.890 - Other specified postprocedural states (ICD-10) ?Z85.9 - Personal history of malignant neoplasm, unspecified (ICD-10) History of cataract removal with insertion of prosthetic lens ?Z98.49 - Cataract extraction status, unspecified eye (ICD-10) ?Z96.1 - Presence of intraocular lens (ICD-10) History of hysterectomy ?Z90.710 - Acquired absence of both cervix and uterus (ICD-10) Hx of appendectomy ?Z90.49 - Acquired absence of other specified parts of digestive tract (ICD- 10) Family History (Updated 02/07/25 @ 16:21 by Leta Liriano RN) Mother Family history of hypertension Family history of CHF (congestive heart failure) Father Family history of cancer Brother Family history of cancer Family history of CHF (congestive heart failure) Social History (Updated 02/07/25 @ 16:21 by Leta Liriano RN) Within the past year, how often did you have a drink containing alcohol: never Score interpretation: A score less than 3 is consistent with normal alcohol consumption. Smoking status: Former smoker Non-prescribed substance use: denies use Highest level of school completed/degree received: some college, no degree Little interest or pleasure in doing things: not at all Feeling down, depressed, or hopeless: not at all Meds Home Medications and Allergies Home Medications ?Medication ?Instructions ?Recorded ?Confirmed ?Type cetirizine 10 mg tablet (24Hour 10 mg PO DAILY PRN all ergy symptoms 09/05/24 02/07/25 History Allergy) conjugated estrogens 0.625 mg/gram 0.625 mg vaginal .w eekly 09/05/24 02/07/25 History vaginal cream (Premarin) fenofibrate 160 mg tablet 160 mg PO DAILY 09/05/2411/29 History folic acid 1 mg tablet 1 mg PO DAILY 09/05/2402/07 History gabapentin 300 mg capsule 300 mg PO DAILY 09/05/2411/29 History (Neurontin) omega 8-srl-fwe-fish oil 1,200 mg 2 cap PO DAILY 09/0502/07/25 History (144 mg-216 mg) capsule (Fish Oil) omeprazole 40 mg capsule,delayed 40 mg PO Q12H 4 02/07/25 History release oxcarbazepine 300 mg tablet 300 mg PO DAILY 09/05/24 0 02/07/25 History (Trileptal) benazepril 10 mg tablet 10 mg PO DAILY 02/07/2511/29 History meclizine 25 mg tablet 25 mg PO TID PRN dizziness # 20 tabs 02/07/25 Rx sertraline 25 mg tablet 12.5 mg PO Q24H 02/07/2511/29 History Allergies Allergy/AdvReac Type Severity Reaction Status Date / Time amoxicillin AdvReac Severe Unknown Verified 02/07/25 10:56 cefdinir AdvReac Severe Vomiting Verified 02/07/25 10:56 clarithromycin AdvReac Severe Unknown Verified 02/07/25 10:56 levofloxacin AdvReac Severe Unknown Verified 02/07/25 10:56 metronidazole AdvReac Severe Vomiting Verified 02/07/25 10:56 naproxen (From Naprosyn) AdvReac Severe Wheezing Verified 02/07/25 10:56 sulfamethoxazole (From AdvReac Severe Vomiting Verified 02/07/25 10:56 Bactrim) trimethoprim (From Bactrim) AdvReac Severe Vomiting Verified 02/07/25 10:56 Exam Constitutional Vital Signs, click to edit/add: Last Vital Signs Temp 97.5 F L 02/07/25 17:33 Pulse 54 L 02/07/25 17:33 Resp 18 02/07/25 17:33 BP 173/82 H 02/07/25 17:33 Pulse Ox 99 02/07/25 17:33 O2 Del Method Room Air 02/07/25 17:33 Documenting provider has reviewed patient's vital signs: yes Common normals: no apparent distress Chest Common normals: inspection of chest normal Respiratory Common normals: normal respiratory effort and no retractions Cardio Common normals: regular rate, regular rhythm and no murmurs GI Common normals: Normal to inspection, nondistended, normoactive bowel sounds present, soft to palpation, non-tender and no hepatosplenomegaly Neuro Other: Mild nystagmus with head movement Results Labs Labs: Short CBC 02/07/25 Range/Units 11:31 WBC 4.5 (4.0-11.0) 10^3/uL Hgb 11.6 L (12.0-16.0) g/dL Hct 35.1 L (36.0-48.0) % Plt Count 189 (150-450) 10^3/uL BMP 02/07/25 11:31 Sodium 141 Potassium 3.6 Chloride 104 Carbon Dioxide 24.4 BUN 21.0 H Creatinine 1.06 H Glucose 114 H Calcium 9.2 Urine 02/07/25 Range/Units 11:10 Urine Color Lt. yellow (YELLOW) Urine Clarity Clear (CLEAR) Urine pH 6.0 (5.0-9.0) Ur Specific [place] 1.020 (1.005-1.025) Urine Protein Negative (NEG/TRACE) mg/dL Urine Glucose (UA) Negative (NEGATIVE) mg/dL Assessment and Plan Assessment and Plan (1) Vertigo: (2) Dizziness: (3) Multiple sclerosis: (4) Mild dehydration: Plan Admission findings: Mild bradycardia, borderline elevated high blood pressure, mild anemia and mild elevation in BUN over creatinine ratio consistent with dehydration and nystagmus on exam consistent with vertigo, patient denies sync opal symptoms Acute vertigo-unable to break in ER given several different medications, try patient on steroids with the meclizine [id number], if improved tomorrow possible discharge, holding off on antibiotics due to multiple medication allergies Mild dehydration-IV fluids overnight and repeat labs in a.m. History of MS and just needs to make sure she gets her nighttime medications Hypertension-borderline uncontrolled-maintain home medications and as needed medications at for elevated blood pressure over 160 Hypercholesterolemia continue with home medications GERD continue with home medications Depression symptoms-maintain current medications Admission status: Patient will be admitted to observation, more than likely the medically necessary treatment that she is currently being provided will be only lasting 1 midnight, also maintain observational status. If unable to improve and the medically necessary treatment will then span 2 midnights will change patient to an patient status
[2025-02-07 18:06] LABS: Alanine Aminotransferase 19 U/L (14-59); Albumin Globulin Ratio 1.2; Albumin Level 3.5 g/dL (3.4-5.0); Alkaline Phosphatase 58 U/L (46-116); Aspartate Amino Transferase 23 U/L (15-37); Bilirubin Direct 0.2 mg/dL (0.0-0.2); Bilirubin Total 0.5 mg/dL (0.2-1.0); Total Protein 6.5 g/dL (6.4-8.2)
[2025-02-07] MEDS: FENOFIBRATE 54 MG TABLET 162 MG PO (18:24)
[2025-02-07] MEDS: LACTATED RINGER'S SOLUTION 1,000 ML 100 ML IV (18:24)
[2025-02-07] MEDS: DEXAMETHASONE SOD PHOS 4 MG/ML VIAL 6 MG IV (18:24)
[2025-02-07] MEDS: SERTRALINE HCL 50 MG TABLET 12.5 MG PO (22:18)
[2025-02-07] MEDS: PANTOPRAZOLE SODIUM 40 MG TABLET.DR PO (22:18)
[2025-02-07] MEDS: OXcarbazepine 300 MG TABLET PO (22:18)
[2025-02-07] MEDS: GABAPENTIN 300 MG CAPSULE PO (22:42)
[2025-02-08] VITALS (9 sets, daily range): BP systolic 110–135; BP diastolic 57–72; PULSE 53–88; TEMP 36.6; O2SAT 92–95
[2025-02-08] MEDS: LACTATED RINGER'S SOLUTION 1,000 ML 100 ML IV (04:30)
[2025-02-08] MEDS: MECLIZINE HCL 12.5 MG TABLET 25 MG PO (05:49)
[2025-02-08 05:55] LABS: Basophils Percent Auto 0.2 % (0.2-2.0); Eosinophils Percent Auto 0.2 % (0.9-7.0); Hematocrit 32.1 % (36.0-48.0); Hemoglobin 10.7 g/dL (12.0-16.0); Immature Granulocytes Abs Auto 0.02 10^3/uL (0.00-0.03); Immature Granulocytes Pct Auto 0.5 % (0.0-0.5); Lymphocytes Absolute Auto 0.6 10^3/uL (1.2-3.8); Lymphocytes Percent Auto 14.6 % (20.5-60.0); Mean Corpuscular HGB Conc 33.3 g/dL (29.9-35.2); Mean Corpuscular Hemoglobin 30.3 pg (26.7-34.0); Mean Corpuscular Volume 90.9 fL (81.0-99.0); Monocytes Absolute Auto 0.2 10^3/uL (0.3-0.8); Monocytes Percent Auto 4.3 % (1.7-12.0); Neutrophils Absolute Auto 3.3 10^3/uL (1.4-6.5); Neutrophils Percent Auto 80.2 % (43.0-75.0); Platelet Count 176 10^3/uL (150-450); Red Blood Count 3.53 10^6/uL (4.20-5.40); Red Cell Distribution Width 13.6 % (11.0-15.0); White Blood Count 4.2 10^3/uL (4.0-11.0)
[2025-02-08 06:08] LABS: Anion Gap 10.8; Calcium 8.7 mg/dL (8.5-10.1); Carbon Dioxide 27.9 mmol/L (21.0-32.0); Chloride 106 mmol/L (98-107); Estimated GFR (African America >60 (>=60 mL/min/1.73m^2); Estimated GFR (Non-African Ame >60 (>=60 mL/min/1.73m^2); Glucose 123 mg/dL (74-106); Potassium 3.7 mmol/L (3.5-5.1); Sodium 141 mmol/L (136-145)
--- NOTE | 2025-02-08 06:28 | P.DS_ITS ---
DS: Providers Provider Date of admission: 02/07/25 16:07 Primary care physician: Kyle Gottlieb DO Consults: 02/07/25 17:38 Consult to Pharmacy Routine Consulting Provider: Reason for consultation: Please [place] me when Med Rec is Updated Has provider been notified: No Occupational Therapy Eval and Treat Routine Reason for consultation: Only if needed for Rehab Has provider been notified: No Physical Therapy Eval and Treat Routine Reason for consultation: Eval and Treat Vertigo with epleys please and thank you Has provider been notified: No DS: Diagnosis Discharge Diagnosis (1) Vertigo: (2) Dizziness: (3) Multiple sclerosis: (4) Mild dehydration: Plan Admission findings: Mild bradycardia, borderline elevated high blood pressure, mild anemia and mild elevation in BUN over creatinine ratio consistent with dehydration and nystagmus on exam consistent with vertigo, patient denies syncopal symptoms Acute vertigo-on exam was much improved PT to complete their assessment at discharge Mild dehydration-improve at the time of discharge History of MS and just needs to make sure she gets her nighttime medications Hypertension-improved at the time of discharge Hypercholesterolemia continue with home medications GERD continue with home medications Depression symptoms-maintain current medications Admission status: Patient will be admitted to observation, more than likely the medically necessary treatment that she is currently being provided will be only lasting 1 midnight, also maintain observational status. If unable to improve and the medically necessary treatment will then span 2 midnights will change patient to an patient status ? DS: Summary Hospital Course Hospital Course: Patient is present to the emergency room with acute onset of vertigo, workup in ER unremarkable other than they were unable to fix her vertigo with Valium and meclizine, patient admitted given steroids and [id number] meclizine, this morning her vertigo is much better, she can move her head without dizziness, physical therapy to complete their assessment and complete Sharmaine maneuvers, if she is much improved later this morning she can be discharged home in improving condition. Medications see list. Follow-up with her PCP within the next week. Time Spent with Patient Time attestation: Total time spent providing and/or coordinating discharge services: Exam Constitutional Vital Signs, click to edit/add: Last Vital Signs Temp 97.9 F 02/08/25 04:00 Pulse 67 02/08/25 06:08 Resp 18 02/08/25 04:00 BP 110/57 02/08/25 04:00 Pulse Ox 92 L 02/08/25 04:00 O2 Del Method Room Air 02/08/25 04:00 Documenting provider has reviewed patient's vital signs: yes Chest Common normals: inspection of chest normal Respiratory Common normals: normal respiratory effort and no retractions Cardio Common normals: regular rate and regular rhythm Neuro Common normals: oriented x3, CN's II-XII intact bilaterally and moves all extremities Other: No nystagmus on bilateral conjugate gaze or head movement DS: Data Data Completed and Pending Labs on day of discharge: Labs from last 24 hours 02/08/25 02/07/25 02/07/25 05:46 11:31 11:10 WBC 4.2 4.5 RBC 3.53 L 3.87 L Hgb 10.7 L 11.6 L Hct 32.1 L 35.1 L MCV 90.9 90.7 MCH 30.3 30.0 MCHC 33.3 33.0 RDW 13.6 13.9 Plt Count 176 189 MPV 10.0 10.4 Neut % (Auto) 80.2 H 73.3 Lymph % (Auto) 14.6 L 18.2 L [place] % (Auto) 4.3 6.3 Eos % (Auto) 0.2 L 1.6 Baso % (Auto) 0.2 0.2 Neut # (Auto) 3.3 3.3 Lymph # (Auto) 0.6 L 0.8 L [place] # (Auto) 0.2 L 0.3 Eos # (Auto) 0.0 0.1 Baso # (Auto) 0.0 0.0 Abs Immat Gran (auto) 0.02 0.02 Imm/Tot Granulo (auto) 0.5 0.4 Sodium 141 141 Potassium 3.7 3.6 Chloride 106 104 Carbon Dioxide 27.9 24.4 Anion Gap 10.8 16.2 BUN 15.0 21.0 H Creatinine 0.79 1.06 H Est GFR ( Amer) >60 >60 Est GFR (Non-Af Amer) >60 50 L BUN/Creatinine Ratio 19.0 19.8 Glucose 123 H 114 H Calcium 8.7 9.2 Total Bilirubin 0.5 Direct Bilirubin 0.2 AST 23 ALT 19 Alkaline Phosphatase 58 Total Protein 6.5 Albumin 3.5 Globulin 3.0 Albumin/Globulin Ratio 1.2 Urine Color Lt. yellow Urine Clarity Clear Urine pH 6.0 Ur Specific [place] 1.020 Urine Protein Negative Urine Glucose (UA) Negative Urine Ketones Negative Urine Occult Blood Negative Urine Nitrite Negative Urine Bilirubin Negative Urine Urobilinogen 1.0 Ur Leukocyte Esterase Negative Urine RBC None seen Urine WBC 0-2 A Ur Squamous Epith Cells Moderate A Urine Crystals None seen Urine Bacteria Trace A Urine Casts None seen Urine Mucus Trace A Ur Culture Indicated? No Discharge Plan Discharge Disposition: Home, Self-Care Condition: Fair Discharge Medications: New meclizine 25 mg tablet 25 mg PO TID PRN (Reason: dizziness) Qty: 20 0RF meclizine 12.5 mg Tablet 25 mg PO QID Qty: 20 0RF prednisone 10 mg tablet 30 mg PO DAILY Qty: 12 0RF Continued benazepril 10 mg tablet 10 mg PO DAILY sertraline 25 mg tablet 12.5 mg PO Q24H Rx Instructions: bedtime oxcarbazepine [Trileptal] 300 mg tablet 300 mg PO DAILY Rx Instructions: bedtime gabapentin [Neurontin] 300 mg capsule 300 mg PO DAILY Rx Instructions: bedtime fenofibrate 160 mg tablet 160 mg PO DAILY Rx Instructions: at supper omeprazole 40 mg capsule,delayed release(DR/EC) 40 mg PO Q12H Premarin 0.625 mg/gram cream 0.625 mg vaginal .weekly Rx Instructions: Sundays omega 2-pbf-acg-fish oil [Fish Oil] 1,200 (144-216) mg capsule 2 cap PO DAILY Rx Instructions: bedtime folic acid 1 mg tablet 1 mg PO DAILY cetirizine [24Hour Allergy] 10 mg tablet 10 mg PO DAILY PRN (Reason: allergy symptoms) Print Language: Kazakh Forms: Portal Instructions
--- NOTE | 2025-02-08 08:57 | CM.NOTE ---
Rounds made with Dr. Zuleta, pt will discharge to home today. Pt does not use any assistive devices at home, denies any discharge needs at this time. PT and OT will evaluate pt prior to discharge. Pt is employed part-time at [employer]. Pt is ambulatory in room. Pt will f/u with PCP next week.
--- NOTE | 2025-02-08 09:01 | CM.NOTE ---
Medicare outpatient Observation Notice discussed with pt, pt verbalizes understanding and signs paper. Original given to pt and copy placed on pt's chart.
[2025-02-08] MEDS: FISH OIL 1,000 MG CAPSULE 2000 MG PO (09:35)
[2025-02-08] MEDS: LISINOPRIL 10 MG TABLET PO (09:35)
[2025-02-08] MEDS: FOLIC ACID 1 MG TABLET PO (09:35)
[2025-02-08] MEDS: PREDNISONE 20 MG TABLET 30 MG PO (09:35)
[2025-02-08] MEDS: PANTOPRAZOLE SODIUM 40 MG TABLET.DR PO (09:35)
--- NOTE | 2025-02-08 10:38 | SWNOTE1 ---
SW called and spoke to physical therapist and pt did well. No services services needed at discharge at this time. If symptoms persist pt can look in to outpatient therapy, but symptoms resolved at this time.
== END 2025-02-08 11:35 | disposition home or self-care (01) ==
LOC: ER 15:16 → MS 16:08
PROVIDERS: Admitting Provider Family Medicine; Emergency Provider Emergency Medicine; PCP Internal Medicine; Visit Provider Family Medicine
DX: R42 Dizziness and giddiness (principal); E86.0 Dehydration; G35 Multiple sclerosis; E78.00 Pure hypercholesterolemia, unspecified; K21.9 Gastro-esophageal reflux disease without esophagitis; F32.A Depression, unspecified; D64.9 Anemia, unspecified; Z90.710 Acquired absence of both cervix and uterus; Z90.49 Acquired absence of other specified parts of digestive tract; Z87.891 Personal history of nicotine dependence; R03.0 Elevated blood-pressure reading, without diagnosis of hypertension
CPT/HCPCS: 36415; 70450; 80048; 80076; 81001; 85025; 93005; 94761; 96361; 96374; 96375; 96376; 97161; 97165; 99285; G0378; J1100; J3360; J7512

== ENCOUNTER 2025-06-21 10:51 | Outpatient (OUT) | payer MEDICARE, OTHER, SELFPAY ==
--- OUTSIDE RECORDS SUMMARY | 2025-06-19 08:21 | XMS_ITS | Continuity of Care Document ---
Author Organization [facility] Address [address] [place] [address] Phone Care Team Providers Care Gang Supervisor Name Role Phone Kyle Gottlieb DO Primary Care Provider [phone] Kyle Gottlieb DO Attending Provider Aliza Daniel MD Attending Provider Care Teams Patient Care Team Team Status: Active Member Role Status Dates Kyle Gottlieb DO Primary Care Provider Active Visit Care Team Team Status: Inactive Member Role Status Dates Kyle Gottlieb DO Primary Care Provider Active Start: March 27, 2025 End: March 27, 2025 Kyle Gottlieb DO Attending Provider Active Sta rt: March 27, 2025 End: March 27, 2025 Visit Care Team Team Status: Inactive Member Role Status Saqib Gottlieb DO Primary Care Provider Active Start: April 27, 2025 End: April 27, 2025 Aliza Daniel MD Attending Provider Active St art: April 27, 2025 End: April 27, 2025 Visit Care Team Team Status: Inactive Member Role Status Dates Kyle Gottlieb DO Primary Care Provider Active Start: June 02, 2025 End: June 02, 2025 Kyle Gottlieb DO Attending Provider Active Sta rt: June 02, 2025 End: June 02, 2025 Patient Care Team Team Status: Inactive Member Role Status Dates Kyle Gottlieb DO Primary Care Provider Active Start: June 19, 2025 End: June 19, 2025 Kyle Gottlieb DO Attending Provider Active Sta rt: June 19, 2025 End: June 19, 2025 Chief Complaint and Reason for Visit Chief Complaint Admit Date B12 Shot March 27, 2025 1:46 pm B12 Shot April 27, 2025 1: 33pm B12 Shot June 02, 2025 1:37pm Wellness June 19, 2025 1 0:58am Reason for Visit Admit Date PA (pernicious anemia) April 27, 2025 1:33pm Depression, major, recurrent, mild Octob er 2024 10:58am NABIL (generalized anxiety disorder) Octob er 2024 10:58am Gastroesophageal reflux dise ase with esophagitis without hemorrhage June 19, 2025 10:58am Hypertriglyceridemia June 19, 2025 10:58am IBS (irritable bowel syndrome) June 072024 10:58am Medicare annual wellness visit, subseque nt June 19, 2025 10:58am Primary hypertension June 19, 2025 10:58am Screening mammogram for breast cancer Oc tober 2024 10:58am Stage 3a chronic kidney disease June 19, 2025 10:58am Allergies, Adverse Reactions, Alerts Allergen Type Severity Reaction Last Updated Verified Status amoxicillin Allergy Unknown Rash June 19, 2025 11:17am Yes Active clarithromycin Allergy Unknown Rash June 192024 11:17am Yes Active Corticosteroids (Glucocorticoids) Allergy Unknown Unknown Reaction June 19, 2025 11:17am Yes Active levofloxacin Allergy Unknown Rash June 11:17am Yes Active naproxen Allergy Unknown Difficulty Breathing June 19, 2025 11:17am Yes Active Penicillins Allergy Unknown Unknown Reaction June 19, 2025 11:17am Yes Active Sulfa (Sulfonamide Antibiotics) Allergy Unknown Unknown Reaction June 19, 2025 11:17am Yes Active sulfamethoxazole Allergy Unknown Vomiting June 19, 2025 11:17am Yes Active trimethoprim Allergy Unknown Vomiting June 11:17am Yes Active Biaxin XL *MACROLIDES* Allergy Unknown Unknown React ion October 21, 2023 12:19pm No Active LEVOFLAXIN Allergy Unknown Unknown Reaction October 21, 2023 12:19pm No Active Social History Smoking Status Status Start Date End Date Date of Observa tion Ex-smoker (finding) September 17, 2023 12:25pm Observation Status Observation Response Date of Response Legal Sex Female (finding) Sex Assigned At Female [birth year] Family History Relationship Condition Age at Onset Recorded Date/T leesa mother Heart disease Unknown brother Heart disease Unknown brother Heart disease Unknown father Malignant neoplasm of pancreas Unknown brother Congestive heart failure Unknown Unknown father Unknown Malignant neoplasm Unknown mother Unknown Problems Active Problems Medical Problem Onset Date Status Medicare annual wellness visit, subsequent Unkno wn Active Gastroesophageal reflux disease with esophagitis without hemorrhage Unknown Active NABIL (generalized anxiety disorder) Unknown Active Nicotine dependence, cigarettes, in remission Un known Active Screening mammogram for breast cancer Unknown Active Mucopurulent chronic bronchitis Unknown Active Diverticulosis Unknown Active Hypertriglyceridemia Unknown Active Anemia Unknown Active PA (pernicious anemia) Unknown Active Primary hypertension Unknown Active Depression, major, recurrent, mild Unknown Active Stage 3a chronic kidney disease Unknown Active Acute bronchitis due to other specified organism s Unknown Active Venous insufficiency (chronic) (peripheral) Unkn own Active Nausea Unknown Active IBS (irritable bowel syndrome) Unknown A ctive Lumbar spondylosis Unknown Active Cervical strain, acute Unknown Active Medications Medication Status Dose Units Route Directions Qty Days St art Date Stop Date End Date Instructions Adherence Fenofibrate 160 mg tablet Discont inued 0 .ROUTE .COMPLEX 2023 7:09pm Febru 2024 6:11p m TAKE 1 TABLET BY MOUTH ONCE DAILY Oxcarbazepi ne 300 mg tablet Discont inued 0 .ROUTE .COMPLEX January 12, 2024 2:14pm January 06, 2025 1:28p m TAKE 1 TABLET BY MOUTH EVERY NIGHT AT BEDTIME Benazepril 5 mg tablet Discont inued 0 .ROUTE .COMPLEX March 08, 2024 8:40am Febru [email or web address] 12:50 pm TAKE 1 TABLET BY MOUTH ONCE DAILY Gabapentin 300 mg capsule Discont inued 0 .ROUTE .COMPLEX b er 2023 1:58pm [facility] 2024 7:36a m TAKE 1 CAPSULE BY MOUTH ONCE DAILY Folic Acid 1 mg tablet Active 1 MG PO Daily Decemb 2023 1:22pm Complies with drug therapy Fenofibrate 160 mg tablet Active 160 MG PO Daily 2024 6:10pm Complies with drug therapy Benazepril 10 mg tablet Discont inued 10 MG PO Daily 2024 6:11pm Octob er 2024 12:00 pm Sertraline 25 mg tablet Discont inued 0 .ROUTE .COMPLEX November 12, 2024 5:03pm Septe mber 2024 7:10a m TAKE 1 TABLET BY MOUTH DAILY Oxcarbazepi ne 300 mg tablet Active 0 .ROUTE .COMPLEX 90 January 06, 2025 1:28pm TAKE 1 TABLET BY MOUTH EVERY NIGHT AT BEDTIME Complies with drug therapy Hydrocortis one Acetate (Anucort-Hc ) 25 mg suppository Active 25 MG AR Daily at bedtime as needed for hemorrhoids 30 08April 17, 2025 12:31p m Complies with drug therapy Sertraline 25 mg tablet Active 0 .ROUTE .COMPLEX 90 Septem elder 2024 7:10am TAKE 1 TABLET BY MOUTH EVERY DAY Complies with drug therapy Gabapentin 300 mg capsule Active 0 .ROUTE .COMPLEX 90 Septem elder 2024 7:36am TAKE 1 CAPSULE BY MOUTH ONCE DAILY Complies with drug therapy Omeprazole 40 mg capsule,del ayed release(DR/ EC) Discont inued 40 MG PO Twice daily 180 90 Octobe r 2024 7:50am Octob er 2024 8:47a m Omeprazole 40 mg capsule,del ayed release(DR/ EC) Active 40 MG PO Twice daily 180 90 Octobe r 2024 8:47am Complies with drug therapy Benazepril 5 mg tablet Discont inued 5 MG PO Daily November 28, 2021 12:00a m March 08, 2024 8:40a m Tizanidine (Zanaflex) 4 mg Tablet Discont inued 2 MG PO Bedtime as needed for Pain November 28, 2021 12:00a m Decem elder 2023 12:11 pm Oxcarbazepi ne (Trileptal) 300 mg Tablet Discont inued 300 MG PO Bedtime November 28, 2021 12:00a m January 12, 2024 2:14p m Hydrocortis one Acetate 25 mg Suppository Discont inued 25 MG AR Daily as needed for Hemorrhoids November 28, 2021 12:00a m Febru [email or web address] 2023 12:30 pm Pantoprazol e 40 mg tablet,carley yed release (DR/EC) Discont inued 40 MG PO Twice daily November 28, 2021 12:00a m Decem elder 2023 12:29 pm Conjugated Estrogens (Premarin) 0.625 mg/gram cream Active 1 APPLIC TOPICA L As Directed November 28, 2021 12:00a m Complies with drug therapy Gabapentin (Neurontin) 300 mg Capsule Discont inued 300 MG PO Daily at bedtime November 28, 2021 12:00a m Novem elder 2023 1:58p m Fenofibrate 160 mg tablet Discont inued 160 MG PO Daily November 28, 2021 12:00a m Febru [email or web address] 7:09p m [place]affee 3-Dha-Epa-F ho Oil (Fish Oil) 1,200 (144-216) mg Capsule Discont inued 2 CAP PO Bedtime November 28, 2021 12:00a m Febru [email or web address] 12:30 pm Hydrocortis one (Proctosol Hc) 2.5 % Cream With Applicator Discont inued 1 EACH AR Daily as needed for Hemorrhoids November 28, 2021 12:00a m Febru [email or web address] 12:30 pm Cetirizine (Zyrtec) 10 mg tablet Discont inued 10 MG PO Daily November 28, 2021 12:00a m Febru [email or web address] 12:30 pm Hydrocortis one Acetate (Anucort-Hc ) 25 mg suppository Discont inued 25 MG AR Daily at bedtime 30 08November 25, 2023 11:27a m Augus t 2024 12:31 pm Azithromyci n 250 mg tablet Discont inued 250 MG PO As Directed 02 09November 25, 2023 12:00a m [facility] 2023 12:44 pm Fish Oil-Chaffee-3 -Vit C-Vit E 2,000-650-1 2 mg/2.5 gram emulsion in packet Active GM PO Decemb er 2023 1:00am Complies with drug therapy Calcium Carbonate-V itamin D3 (Calcium 600 With Vitamin D3) 600 mg-12.5 mcg (500 unit) capsule Active CAP PO Decemb er 2023 1:00am Complies with drug therapy Cetirizine 10 mg tablet Active 10 MG PO Daily as needed Decemb er 2023 1:00am Complies with drug therapy Mecobalamin (Vitamin B12) 10,000 mcg recon soln Active MCG IV Decemb er 2023 1:00am Complies with drug therapy Omeprazole 40 mg capsule,del ayed release(DR/ EC) Discont inued 40 MG PO Twice daily 180 90 Decemb er 2023 1:00am Octob er 2024 7:50a m Folic Acid 1 mg tablet Discont inued 1 MG PO Daily 2023 1:00am Decem elder 2023 1:22p m Dicyclomine 20 mg tablet Discont inued 20 MG PO Four times daily 2023 1:00am Decem elder 2023 12:15 pm Hydrocortis one Acetate (Anucort-Hc ) 25 mg suppository Discont inued 25 MG AR Daily at bedtime 2023 1:00am November 25, 2023 11:27 am Cefdinir 300 mg capsule Discont inued 300 MG PO Twice daily ua 2023 1:00am Octob er 2023 11:09 am Hydrocortis one (Proctosol Hc) 2.5 % cream with perineal applicator Discont inued 1 APPLIC AR 1 to 2 times per day as needed ua 2023 1:00am Decem elder 2023 12:15 pm Sertraline 25 mg tablet Discont inued 25 MG PO Daily 2024 12:41p m November 12, 2024 5:03p m Benazepril 5 mg tablet Discont inued 0 .ROUTE .COMPLEX 2024 12:49p m Febru 2024 12:50 pm TAKE 1 TABLET BY MOUTH ONCE DAILY Benazepril 10 mg tablet Discont inued 10 MG PO Daily 90 2024 12:50p m u 2024 6:12p m Ondansetron 4 mg tablet,disi ntegrating Active 4 MG PO Every 8 hours as needed for nausea and vomiting 2024 1:00am Complies with drug therapy Sertraline 50 mg tablet Discont inued 50 MG PO Daily 2024 1:00am Febru 2024 12:41 pm Cyproheptad ine 4 mg tablet Active 2 MG PO Daily at bedtime Octobe r 2024 12:00a m Complies with drug therapy Benazepril 5 mg tablet Active 5 MG PO Daily 90 90 Octobe r 2024 11:58a m Complies with drug therapy Metronidazo le 500 mg tablet Discont inued 500 MG PO Every 8 hours 21 7 March 09, 2024 12:00a m Decem elder 2023 12:15 pm Ondansetron 4 mg tablet,disi ntegrating Discont inued 4 MG PO Every 6 hours as needed for nausea and vomiting 20 5 March 09, 2024 12:00a m Decem elder 2023 12:15 pm Azithromyci n 250 mg tablet Discont inued 250 MG PO As Directed 6 5 Sept elder 2023 12:00a m Octob er 2023 11:09 am Azithromyci n 250 mg tablet Discont inued 250 MG PO .COMPLEX 6 5 November 15, 2024 12:00a m Octob er 2024 11:25 am 2 tabs on first day followed by 1 tab on days 2-5 Benzonatate 200 mg capsule Active 200 MG PO Three times daily 06 07November 15, 2024 12:00a m Complies with drug therapy Immunizations Immunization Event Date Not Given Reason Dose Number Enrollment Nurse Lot Number Vaccine Information Statement (VIS) Detail Administration Location [facility] ty, Pediatric Age 5-11 July 11, 2022 COVID-19 mRNA-1273 (Moderna) October 04, 2020 COVID-19 mRNA-1273 (Moderna) October 15, 2020 COVID-19 mRNA-1273 (Moderna) November 22, 2020 COVID-19 mRNA, Comirnaty (Myrl) October 04, 2020 COVID-19 mRNA, Comirnaty (Myrl) February 06, 2022 COVID-19 mRNA, Comirnaty (Myrl) October 25, 2020 COVID-19 mRNA, Comirnaty (Myrl) June 10, 2021 COVID-19 Comirnaty (Myrl) Tri-Sucrose + February 06, 2022 [id number] COVID-19 mRNA Bivalent Booster (Myrl) July 11, 2022 [id number] COVID-19 (PFIZER) 12Y and older June 15, 2023 [id number] Fluzone TIV High-Dose 65YR+ June 11, 2016 [id number] Fluzone TIV High-Dose 65YR+ May 25, 2017 [id number] Fluzone TIV High-Dose 65YR+ June 19, 2025 [id number] [facility] Influenza, trivalent May 25, 2018 [id number] Influenza vaccine, quadrivalent, adjuvanted May 19, 2022 [id number] influenza, unspecified formulation June 13, 2015 influenza, unspecified formulation June 11, 2016 influenza, unspecified formulation May 25, 2017 influenza, unspecified formulation May 25, 2018 influenza, unspecified formulation June 02, 2019 influenza, unspecified formulation May 16, 2020 influenza, unspecified formulation May 17, 2021 influenza, unspecified formulation May 19, 2022 influenza, unspecified formulation May 27, 2023 Pneumococcal Conjugate Vaccine, 13 valent June 13, 2015 Pneumococcal Conjugate Vaccine, 20 valent May 27, 2023 Pneumococcal Polysacc. Vaccine, 23 valent June 13, 2009 Tetanus, Diphtheria adult, 5 Lf pres free abs June 07, 2013 Vital Signs Vital Reading Result Reference Range Collection Date/Time Height 65 [in_i] June 19, 11:27am Weight 64.01 kg June 19, 025 11:27am Heart Rate 62 /min 60-100 June 19, 2 025 11:27am Respiratory rate 12 /min 12-24 June 11:27am BP Systolic 127 mm[Hg] 100-140 June 19, 2 025 11:27am BP Diastolic 71 mm[Hg] 60-100 June 19, 2 025 11:27am BMI (Body Mass Index) 23.5 kg/m2 Octobe r 2024 11:27am Advance Directives Advance Directive Response Recorded Date/ Time Advance Directives No January 21 8 3:52pm Insurance Providers Guarantor Gina Pierre Address [address] [facility] [address] Contact Info. Home Phone: Payer Policy Id Subscriber's Name Subscriber Id Effjoyce ctive Date Expiration Date Medicare [id number] Gina Pierre [id number] Medicare [employer] [id number] Gina Pierre [id number] [facility] [id number] Gina Pierre [id number] Encounters Encounter Location(s) Arrival/Admit Date Discharge/Depart Date Provider(s) Departed Physician/Prov ider Office Visit -[facility] March 27, 2025 1:46pm March 27, 2025 2:05pm Kyle Gottlieb DO Departed Physician/Prov ider Office Visit -[facility] April 27, 2025 1:33pm April 27, 2025 1:57pm Aliza Daniel MD Departed Physician/Prov ider Office Visit -[facility] June 02, 2025 1:37pm June 02, 2025 2:10pm Kyle Gottlieb DO Departed Physician/Prov ider Office Visit -[facility] June 19, 2025 10:58am June 19, 2025 12:20pm Kyle Gottlieb DO Recent Diagnosis Onset Date Admit Date PA (pernicious anemia) Unknown April 272024 1:33pm Depression, major, recurrent, mild Unknown June 19, 2025 10:58am NABIL (generalized anxiety disorder) Unknown June 19, 2025 10:58am Gastroesophageal reflux dise ase with esophagitis without hemorrhage Unknown June 19, 2025 10:5 8am Hypertriglyceridemia Unknown June 10:58am IBS (irritable bowel syndrome) Unknown O ctober 2024 10:58am Medicare annual wellness visit, subsequent Unkno wn June 19, 2025 10:58am Primary hypertension Unknown June 10:58am Screening mammogram for breast cancer Unknown June 19, 2025 10:58am Stage 3a chronic kidney disease Unknown June 19, 2025 10:58am Assessments Diagnosis Onset Date Resolution Status Admit Date PA (pernicious anemia) acute Au 2024 1:33pm Depression, major, recurrent, mild a cute June 19, 2025 10:58am NABIL (generalized anxiety disorder) a cute June 19, 2025 10:58am Gastroesophageal reflux dise ase with esophagitis without hemorrhage acute June 19, 2025 10:58am Hypertriglyceridemia acute Octo 2024 10:58am IBS (irritable bowel syndrome) acute June 19, 2025 10:58am Medicare annual wellness vis it, subsequent acute June 19 10:58am Primary hypertension acute Octo 2024 10:58am Screening mammogram for [facility] cancer acute June 19 10:58am Stage 3a chronic kidney disease acut e June 19, 2025 10:58am Plan of Treatment Author Kyle Gottlieb [facility] Authored June 15, 2025 7: 55am I have instructed this patie nt to consume a healthy, low-fat, low-salt diet. I have also encouraged them to continue exercise with weight loss to achieve/maintain a BMI < 30. I have instructed this patient on the correct procedure for obtaining home BP measurements: - rest for 5 minutes w/o talking. - positioned w/ feet on floor and arms supported. - average best 2/3 readings w/ goal < 135/85. - update office w/ home readings in 2 weeks. Continue Benazepril without interruption Increase dose to 10mg daily at last visit. I instructed this patient on the benefits of adequate control of hypertension and diabetes, if appropriate. I have also instructed them to avoid use of NSAIDs due to the adverse effects on renal function. I instructed them on adequate fluid balance and to consume at least 48 oz of fluids daily. I also instructed them to monitor for an unexplained increase in weight and lower extremity edema. They have been instructed to notify the office for any changes or concerns. Secondary to hypertensive nephrosclerosis I have instructed this patient to avoid lying flat after eating. I have also recommended to avoid eating 2 hours prior to bedtime. They were also informed that smaller, frequent meals may be better tolerated. I have discussed additional treatment options for persistent symptoms, which includes: weight loss, H2 blockers and PPI. I have also instructed them to notify the office with any pain or difficulty swallowing. Increased Omeprazole to bid and instructed to take 30 minutes prior to bkfst and evening meal. - since her symptoms are controlled, consider decreasing to qd Instructed on a healthy diet and exercise routine. Instructed to avoid abrupt d/c of medication due to w/d symptoms. Instructed to start w/ 1/2 tab daily and increase to 1 tab after one week. She was able to tolerate 25mg and feels it has improved her anxiety, will hold at that dose Instructed on healthy diet and exercise Continue low dose Sertraline Instructed on high fiber diet w/ minimum 48oz fluids daily. Increase activity Sertraline and PPI have improved her symptoms. I have instructed this patient on the recommended lifestyle changes, which includes a low fat, high fiber diet along with a regular exercise routine. I have also reviewed the recommended age-appropriate preventive testing for this patient. I have also reviewed the recommended vaccines for their age and risk factors. I have instructed this patient on monthly SBE and recommended yearly mammograms. Future Tests Future scheduled test information is unavailable Pending Tests Test Name Ordered Date Scheduled Date Comprehensive Metabolic Panel June 19, 2025 12:12pm Future Visits Future appointment information is unavailable Referrals to Other Providers Referral information is unavailable Future Procedures Procedure Name Ordered Date Scheduled Date Vitamin B12 June 19, 2025 12:12pm Complete Blood Count Auto Diff June 19 12:12pm Iron and TIBC Profile June 19, 2025 12:12pm Ferritin June 19, 2025 12:12pm Folate June 19, 2025 12:12pm Lipid Panel June 19, 2025 12:12pm Thyroid Stimulating Hormone June 19, 2025 1 2:12pm Future Medications Future medication information is unavailable Patient Instructions Patient instructions are unavailable
--- OUTSIDE RECORDS SUMMARY | 2025-06-21 10:57 | XMS_ITS | Encounter Summary ---
Author Organization [facility] Address [address] [place] [address] Care Team Providers Care Hands And Dial Inspector Name Role Phone Kyle Gottlieb DO Primary Care Provider [phone] Encounter Details Date Type Department Care Team (Late Contact Info) Description 06/23/2024 External Result Encounter [facility] Unsolicited Aamir Xavier DO [address] [facility] [address] [place] [address] Social History Tobacco Use Types Packs/Day Years Used Date Smoking Tobacco: Never Smokeless Tobacco: Never Alcohol Use Standard Drinks/Week Comments Never 0 (1 standard drink = 0.6 oz pure alcohol) caffeine intake: 1-2 cups per day; pop AUDIT-C Answer Date Recorded Q1: How often do you have a drink containing alcohol? Never 05/03/2024 Q2: How many drinks containi ng alcohol do you have on a typical day when you are drinking? Patient does not drink Q3: How often do you have si x or more drinks on one occasion? Never 05/03/2024 PHQ-2 Answer Date Recorded Patient Health Questionnaire-2 Score 0 05/03/2024 Comments No Sex and Gender Information Value Date Recorded Sex Assigned at Not on file Legal Sex Female 7:06 PM EDT Gender Identity Not on file Sexual Orientation Not on file documented as of this encounter Plan of Treatment Upcoming Encounters Date Type Department Care Team (Late Contact Info) Description 07/26/2025 1:00 PM EST Clinical Support [facility] [place] [facility] [address] [place] [address] Steven Ponce MD [address] [place] [address] 04/11/2026 12:00 PM EDT Office Visit [facility] [address] [place] [phone] Tristin Hayes MD [address] [place] [address] 05/11/2026 11:30 AM EDT Office Visit [facility] [address] [place] [address] Aamir Xavier DO [address] [place], [place] [id number] documented as of this encounter Procedures Procedure Name Priority Date/Time Associated Diagnosis Comments BI MAMMOGRAM SCREENING TOMOSYNTHESIS BILATERAL 06/23/2024 1:08 PM EDT documented in this encounter Results * Bilateral screening mammogram with tomosynthesis (06/23/2024 1:08 PM EDT) Anatomical Region Laterality Modality Breast Bilateral Mammography 06/23/2024 1:08 PM EDT Impressions 06/23/2024 1:13 PM EDT NO MAMMOGRAPHIC EVIDENCE OF MALIGNANCY. ROUTINE FOLLOW-UP [...] Neeraj Wilson M.D.06/23/2024 1:11 PM Dictation Location: [id number] Transcribed By: [facility] 06/23/24 1311 Dictated By: Neeraj Wilson II, MD 06/23/24 1308 Signed By: <Electronically signed by Neeraj Wilson II, MD in OV> 06/23/24 1311 Narrative 06/23/2024 1:13 PM EDT [facility] Main [place] [id number] Mammography Report Signed Patient: Gina Pierre MR#: [id number] : 1940 Acct:[id number] Age/Sex: 83 / F ADM Date: 06/23/24 Loc: ID Room: Type: REG CLI Attending Dr: Aamir Xavier DO Copies to: DO Aamir Franz DO Ordering Provider: Aamir Xavier DO Date of Service: 06/23/24 MM/MM screening [...] interval change. MM/MM screening mammo BI w/CAD Procedure Note Neeraj Wilson MD - 06/23/2024 [facility] Main [address] [address] Mammography Report Signed Patient: Gina Pierre AMR#: [id number] : 1940cct:[id number] Age/Sex: 83 / FADM Date: 06/23/24 Loc: ID Room:Type: REG CLI Attending Dr: Aamir Xavier DO Copies to: DO Aamir Franz DO Ordering Provider: Aamir Xavier DO Date of Service: 06/23/24 MM/MM screening mammo BI w/CAD: [id number] CLINICAL DATA: Screening for malignancy. BILATERAL SCREENING MAMMOGRAMS - FULL FIELD DIGITAL WITH TOMOSYNTHESIS ANDCAD Tomosynthesis craniocaudal and mediolateral oblique views of both breastswere obtained using low- dose digital technique. Comparison is made to prior studies from05/13/2023, 04/14/2022, 04/11/2021, and 04/09/2020. This examination was reviewed with the aid of CAD. There are scattered fibroglandular densities. Benign-appearingcalcifications are present bilaterally. Similar focal asymmetries are present. Benign-appearing lymphnodes are noted along the chest wall. There are no dominant masses, typically malignantcalcifications or architectural distortion. There has been no [...] system with a target due date for thenext mammogram. Impression dictated by: Neeraj Wilson M.D.06/23/2024 1:11 PM Dictation Location: [facility] Transcribed By: [facility] 06/23/24 1311 Dictated By: Neeraj Wilson II, MD 06/23/24 1308 Signed By: <Electronically signed by Neeraj Wilson II, MD inOV> 06/23/24 1311 Aamir Xavier DO IMG BI PROCEDURES Final Resu lt documented in this encounter Visit Diagnoses Not on filedocumented in this encounter Care Teams Hands And Dial Inspector Relationship Specialty Start Date End Date Kyle Gottlieb DO PCP - General Internal Medicine 02/16/23 documented as of this encounter
--- OUTSIDE RECORDS SUMMARY | 2025-06-21 10:57 | XMS_ITS | Clinical Summary ---
Author Organization [facility] Address [address] [place] [address] Care Team Providers Care Surface Room Shop Optician Name Role Phone Kyle Gottlieb DO Primary Care Provider Allergies Active Allergy Reactions Criticality Noted Date Comments Amoxicillin Rash Low 11/28/2021 Sulfamethoxazole-Trimethoprim 2022 Clarithromycin Rash Low 11/28/2021 Corticosteroids Unknown 03/09/2024 Levofloxacin Rash Low 11/28/2021 Macrolides And Ketolides Unknown 10/21/2023 Naproxen Unknown 01/26/2023 Sulfa Antibiotics Unknown 05/27/2024 Sulfamethoxazole Unknown 01/26/2023 Trimethoprim Unknown 01/26/2023 Medications Calcium Carbonate-Vit D-Min (Calcium 600+D Plus Minerals) 600-400 MG-UNIT chewable tablet every 12 (twelve) hours Active gabapentin (Neurontin) 300 MG capsule 9 Active cetirizine (ZyrTEC) 10 MG tablet 1 (one) time each day at the same time Active docusate sodium (Colace) 100 MG capsule 1 (one) time each day at the same time Active tiZANidine (Zanaflex) 4 MG capsule 9 Active fenofibrate micronized (Lofibra) 134 MG capsule 0 Active OXcarbazepine (Trileptal) 300 MG tablet 9 Active pantoprazole (Protonix) 40 MG EC tablet 1 (one) time each day at the same time Active fenofibrate (Triglide) 160 MG tablet 3 Active folic acid (Folvite) 1 MG tablet 3 Active valACYclovir (Valtrex) 500 MG tablet 3 Active Proctozone-HC 2.5 % rectal cream 4 Active hydrocortisone (Anusol-HC) 25 MG suppository 4 Active tiZANidine (Zanaflex) 4 MG tabletIndication s:Cervical paraspinal muscle spasm Take 1 tablet (4 mg) by mouth at bedtime for 10 days 30 tablet 3 5 Active cyproheptadine (Periactin) 4 MG tabletIndication s:Vertigo,Acute rhinitis Take 0.5 tablets (2 mg) by mouth at bedtime 45 tablet 3 5 02/16/20 26 Active ipratropium (Atrovent) 0.06 % nasal sprayIndications :Chronic rhinitis Administer 2 sprays into each nostril in the morning and 2 sprays in the evening and 2 sprays before bedtime. 45 mL 6 5 07/09/20 25 Active benazepril (Lotensin) 10 MG tablet 5 Active omeprazole (PriLOSEC) [address] capsule 5 Active sertraline (Zoloft) 25 MG tablet Take 25 mg by mouth Daily 5 Active estradiol (Estrace) 0.1 MG/GM vaginal creamIndications :Hormone replacement therapy Use 0.5 g vaginally once weekly. 42.5 g 1 5 Active fludrocortisone (Florinef) 0.1 MG tabletIndication s:Orthostatic dizziness Take 1 tablet (0.1 mg) by mouth Daily for 7 days 7 tablet 1 5 Active Hospital, Clinic, or Other Facility Administered Medication Ordered Dose Route Frequency Start Date End Date Status bupivacaine (Marcaine) 0.5 % injection 5 mgIndications:Other nerve root and plexus disorders,Trochanteri c bursitis of both hips 5 mg IJ Once 07/11/2024 Active dexAMETHasone sod phos (Decadron) injection 4 mgIndications:Other nerve root and plexus disorders,Trochanteri c bursitis of both hips 4 mg IJ Once 07/11/2024 05/22/2025 Discontinued dexAMETHasone sod phos (Decadron) injection 4 mgIndications:Nerve root and plexus disorder, unspecified,Trochante vikas bursitis of both hips 4 mg IJ Once 06/06/2025 05/22/2025 Ended bupivacaine (Marcaine) 0.5 % injection 5 mgIndications:Nerve root and plexus disorder, unspecified,Trochante vikas bursitis of both hips 5 mg IJ Once 06/06/2025 05/22/2025 Ended Active Problems Problem Noted Date Diagnosed Date Nerve root and plexus disorder, unspecified 10/08 Acute bronchitis due to other specified organism s 06/01/2024 Acute exacerbation of chronic obstructive airway s disease 06/01/2024 Concussion 06/01/2024 Contusion of left shoulder 06/01/2024 Fatigue 03/30/2024 Bradycardia 03/30/2024 Anemia, unspecified 03/30/2024 Foot pain, left 03/30/2024 Gastroesophageal reflux dise ase with esophagitis without hemorrhage 03/30/2024 Hypertriglyceridemia 03/30/2024 Lumbar spondylosis 03/30/2024 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 03/30/2024 Mucopurulent chronic bronchitis 03/30/2024 Nicotine dependence, cigarettes, in remission PA (pernicious anemia) 03/30/2024 Primary hypertension 03/30/2024 Stage 3a chronic kidney disease 03/30/2024 Venous insufficiency (chronic) (peripheral) 03/08 Trochanteric bursitis of both hips 01/21/2024 Other nerve root and plexus disorders 01/21/2024 Acquired spondylolisthesis 01/26/2023 Atrophic vaginitis 01/26/2023 Brachial plexus neuropathy 01/26/2023 Disturbance of skin sensation 01/26/2023 Fibrocystic breast changes 01/26/2023 Multiple sclerosis 01/26/2023 Myalgia 01/26/2023 Neck pain 01/26/2023 Encounters Date Type Department Care Team Description 05/22/2025 2:00 PM EDT Clinical Support [facility] [address] [place] [address] Steven Ponce MD Trochanteric bursitis of both hips (Primary Dx); Orthostatic dizziness; Nerve root and plexus disorder, unspecified 05/22/2025 Travel 05/09/2025 11:30 AM EDT Office Visit [facility] [address] [place] [phone] Aamir Xavier, Encounter for gynecological examination without abnormal finding; Encounter for Papanicolaou smear of vagina; Breast cancer screening by mammogram; Hormone replacement therapy 05/09/2025 Travel 04/10/2025 12:20 PM EDT Office Visit [facility] [place] [facility] [address] [place] [phone] Tristin Hayes MD Chronic rhinitis (Primary Dx) 04/10/2025 Bamboo flowsheet [facility] [address] [place] [address] Tristin Hayes MD 04/10/2025 Travel 03/29/2025 Telephone [facility] [facility] [address] [place] [address] Cami Desir, RT. R 03/22/2025 2:00 PM EDT Clinical Support [facility] [address] [place] [address] Steven Ponce MD Nerve root and plexus disorder, unspecified; Myalgia, multiple sites 03/22/2025 Refill [facility] [address] [place] [address] Kinjal Zuñiga LPN Chronic rhinitis 03/22/2025 Bamboo flowsheet [facility] [address] [place] [address] Steven Ponce MD 03/22/2025 Travel from Last 3 Months Immunizations Immunization Administration Dates Next Due Influenza, High Dose Seasona l, Preservative Free 05/25/2017,06/11/2016 Influenza, High-dose Seasona l, Quadrivalent, Preservative Free 05/19/2022 Influenza, Seasonal, Quadriv alent, Adjuvanted 05/19/2022 Influenza, Unspecified 05/27/2023,2020,05/16/2020,06/02,06/13/2015 Influenza, injectable, quadr ivalent, preservative free 06/23/2022 Influenza, seasonal, injectable 06/11/2020 Influenza, trivalent, adjuvanted 05/25/2018 Moderna SARS-CoV-2 Vaccination 11/22/2020,2020 Pfizer Purple Cap SARS-CoV-2 Vaccination 10/25/2020,10/04/2020 Pfizer SARS-CoV-2 Vaccinatio n 5-11 y.o. 07/11/2022 Pneumococcal Conjugate PCV 13 06/13/2015 Pneumococcal Conjugate PCV 20 05/27/2023 Pneumococcal Polysaccharide PPSV23 06/13/2009 Td (adult), 5 Lf tetanus tox oid, preservative free, adsorbed 06/07/2013 Family History Medical History Relation Name Comments Coronary artery disease Brother Heart disease Brother Rectal cancer Brother Colon cancer Father's Sister bladder cancer Maternal Grandmother Colon cancer Mother Heart disease Mother Colon cancer Other 1 4 uncles Stroke Paternal Grandfather Relation Name Status Comments Brother Father Father's Sister Maternal Grandmother Mother Other 1 4 uncles Other 2 Spouse Paternal Grandfather Social History Tobacco Use Types Packs/Day Years Used Date Smoking Tobacco: Never Smokeless Tobacco: Never Tobacco Cessation:Counseling Given: No Alcohol Use Standard Drinks/Week Comments Never 0 (1 standard drink = 0.6 oz pure alcohol) caffeine intake: 1-2 cups per day; pop AUDIT-C Answer Date Recorded Q1: How often do you have a drink containing alcohol? Never 05/09/2025 Q2: How many drinks containi ng alcohol do you have on a typical day when you are drinking? Patient does not drink Q3: How often do you have si x or more drinks on one occasion? Never 05/09/2025 PHQ-2 Answer Date Recorded Patient Health Questionnaire-2 Score 0 05/09/2025 Comments No Sex and Gender Information Value Date Recorded Sex Assigned at Not on file Legal Sex Female 7:06 PM EDT Gender Identity Not on file Sexual Orientation Not on file Last Filed Vital Signs Vital Sign Reading Time Taken Comments Blood Pressure 122/70 05/22/2025 2:05 PM EDT Pulse 67 03/22/2025 2:15 PM EDT Temperature - - Respiratory Rate 18 05/22/2025 2:05 PM EDT Oxygen Saturation 98% 05/22/2025 2:05 PM EDT Inhaled Oxygen Concentration - - Weight 66.6 kg (146 lb 12.8 oz) 05/22/2025 2:05 PM EDT Height 159.4 cm (5' 2.75 ) 05/09/2025 1 1:36 AM EDT Body Mass Index 26.21 05/09/2025 11:36 AM EDT Plan of Treatment Upcoming Encounters Date Type Department Care Team (Late st Contact Info) Description 07/26/2025 1:00 PM EST Clinical Support [facility] [place] [address] [facility] [address] [place] [address] Steven Ponce MD [address] [facility] [address], [place] [id number] 04/11/2026 12:00 PM EDT Office Visit [facility] [address] [facility] [address] [place] [address] Tristin Hayes MD [address] [facility] [address] [place], [place] [phone] 05/11/2026 11:30 AM EDT Office Visit [facility] [address] [facility] [address] [place] [address] Aamir Xavier DO [address] [facility] [address] [place] [address] Health Maintenance Due Date Last Done Comments Influenza Vaccine (#1) 2025 , 06/23/2022, 05/19/2022, Additional history exists Pneumococcal Vaccine: 65+ Years Completed 05/27/2023, 06/13/2015, 06/13/2009 Procedures Procedure Name Priority Date/Time Associated Diagnosis Comments IGP,RFXAPTIMA HPV ALL,16/18,45 Routine 05/09/2025 12:00 AM EDT Encounter for Papanicolaou smear of vagina from Last 3 Months Results * IGP,rfxAptima HPV all,16/18,45 (05/09/2025 12:00 AM EDT) Diagnosis: Comment [facility] Comment:NEGATIVE FOR INTRAEP ITHELIAL LESION OR MALIGNANCY. Specimen Adequacy: Comment [facility] Comment:Satisfactory for deepika luation. Clinician Provided ICD10: Comment [facility] Comment:Z12.72 Performed By: Comment [facility] Comment:Oseas Cristobal tologist (ASCP) Cyto Comments . [facility] Note: Comment [facility] Comment: The Pap smear is a screening test designed to aid in the detection of premalignant and malignant conditions of the uterine cervix. It is not a diagnostic procedure and should not be used as the sole means of detecting cervical cancer. Both false-positive and false-negative reports do occur. Test Methodology: Comment [facility] Comment: This liquid based ThinPrep(R) pap test was screened with the use of an image guided system. . Comment [facility] Comment: The HPV DNA reflex criteria were not met with this specimen result therefore, no HPV testing was performed. Swab Vaginal structure / Unknown 05/09/2025 05/10/2025 Comment:Vagina Print requisi t Narrative [facility] - 05/11/2025 3:07 PM EDT Performed at: 01 - [address] [id number] Automatic Oven Operator: Maty Andrade MD, Phone: [phone] Specimen Comment: [id number] Specimen Comment: No. of containers..01 ThinPrep Vial Aamir Xavier DO LAB CYTOLOGY ORDERABLES Brianne carter Result [facility] from Last 3 Months [place] [phone] [facility] Care Teams Surface Room Shop Optician Relationship Specialty Start Date End Date Kyle Gottlieb DO PCP - General Internal Medicine 02/16/23
--- OUTSIDE RECORDS SUMMARY | 2025-06-21 10:57 | XMS_ITS | Encounter Summary ---
Author Organization [facility] Address [address] [place] [address] Care Team Providers Care Supervisor Mechanic Boilermaking Name Role Phone Kyle Gottlieb DO Primary Care Provider [phone] Encounter Details Date Type Department Care Team (Late Contact Info) Description 02/15/2023 Abstract [facility] [address] [place] [address] Tristin Hayes MD [address] [facility] [address] [place] [address] Social History Tobacco Use Types Packs/Day Years Used Date Smoking Tobacco: Never Alcohol Use Standard Drinks/Week Comments Never 0 (1 standard drink = 0.6 oz pure alcohol) cafeeine intake: 1-2 cups per day; pop Comments Unknown Sex and Gender Information Value Date Recorded Sex Assigned at Not on file Legal Sex Female 7:06 PM EDT Gender Identity Not on file Sexual Orientation Not on file documented as of this encounter Plan of Treatment Upcoming Encounters Date Type Department Care Team (Late Contact Info) Description 07/26/2025 1:00 PM EST Clinical Support [facility] [address] [facility] [address] [facility] [address] [place] [address] Steven Ponce MD [address] [facility] [address] [address] 04/11/2026 12:00 PM EDT Office Visit [facility] [address] [place] [address] Tristin Hayes MD [address] [place] [address] 05/11/2026 11:30 AM EDT Office Visit [facility] [address] [place] [address] Aamir Xavier DO [address] [place] [address] documented as of this encounter Visit Diagnoses Not on filedocumented in this encounter Care Teams Supervisor Mechanic Boilermaking Relationship Specialty Start Date End Date Kyle Gottlieb DO PCP - General Internal Medicine 02/16/23 documented as of this encounter
--- OUTSIDE RECORDS SUMMARY | 2025-06-21 10:57 | XMS_ITS | Encounter Summary ---
Author Organization [facility] Address [address] [place] [address] Care Team Providers Care Transportation Security Screener Name Role Phone Kyle Gottlieb DO Primary Care Provider [phone] Encounter Details Date Type Department Care Team (Late Contact Info) Description 05/13/2023 External Result Encounter [facility] External Department Unsolicited Aamir Xavier DO [address] [facility] [address] [place] [address] Social History Tobacco Use Types Packs/Day Years Used Date Smoking Tobacco: Never Smokeless Tobacco: Never Alcohol Use Standard Drinks/Week Comments Never 0 (1 standard drink = 0.6 oz pure alcohol) cafeeine intake: 1-2 cups per day; pop AUDIT-C Answer Date Recorded Q1: How often do you have a drink containing alcohol? Never 04/28/2023 Q2: How many drinks containi ng alcohol do you have on a typical day when you are drinking? Patient does not drink Q3: How often do you have si x or more drinks on one occasion? Never 04/28/2023 PHQ-2 Answer Date Recorded Patient Health Questionnaire-2 Score 0 04/28/2023 Comments No Sex and Gender Information Value Date Recorded Sex Assigned at Not on file Legal Sex Female 7:06 PM EDT Gender Identity Not on file Sexual Orientation Not on file documented as of this encounter Plan of Treatment Upcoming Encounters Date Type Department Care Team (Late Contact Info) Description 07/26/2025 1:00 PM EST Clinical Support [facility] [address] [facility] [address] [place] [address] Steven Ponce MD [address] [facility] [address] [place] [address] 04/11/2026 12:00 PM EDT Office Visit [facility] [address] [place] [address] Tristin Hayes MD [address] [place] [address] 05/11/2026 11:30 AM EDT Office Visit [facility] [address] [place] [address] Aamir Xavier DO [address] [place] [address] documented as of this encounter Procedures Procedure Name Priority Date/Time Associated Diagnosis Comments BI MAMMOGRAM SCREENING BILATERAL 05/13/2023 3:25 PM EDT documented in this encounter Results * Bilateral screening mammogram (05/13/2023 3:25 PM EDT) Anatomical Region Laterality Modality Breast Bilateral Mammography 05/13/2023 3:25 PM EDT Impressions 05/15/2023 9:59 AM EDT NO MAMMOGRAPHIC EVIDENCE OF MALIGNANCY. ROUTINE [...] Gina Garrett M.D.05/13/2023 3:35 PM Dictation Location: DW01 Transcribed By: [facility] 05/13/23 1535 Dictated By: Gina Garrett MD 05/13/23 1525 Signed By: <Electronically signed by MD Gina Garrett in [place]> 05/13/23 1535 Narrative 05/15/2023 9:59 AM EDT [facility] [address] [place] [id number] Mammography Report Signed Patient: Gina Pierre MR#: [id number] : 1940 Acct:[id number] Age/Sex: 82 / F ADM Date: 05/13/23 Loc: [place] Room: Type: [facility] CLI Attending Dr: Aamir Xavier DO Copies [...] MM/MM screening mammo BI w/CAD Procedure Note Radiology, Radiologist, - 05/15/2023 [facility] [address] [place] [id number] Mammography Report Signed Patient: Gina Pierre AMR#: [id number] : 1940cct:[id number] Age/Sex: 82 / FADM Date: 05/13/23 Loc: [place] Room:Type: [facility] CLI Attending Dr: Aamir Xavier DO Copies [...] Comparison is made to prior studies from 2018 through April 14, 2022. This examination was reviewed with the aid of CAD. There are scattered fibroglandular densities. Benign and vascularcalcifications are seen. There are intramammary lymph nodes. There are no new suspicious masses, typicallymalignant calcifications or architectural distortion. There has been [...] date for thenext mammogram. Impression dictated by: Gina Garrett M.D.05/13/2023 3:35 PM Dictation Location: [facility] Transcribed By: ISAURA 05/13/23 1535 Dictated By: Gina Garrett MD 05/13/23 1525 Signed By: <Electronically signed by MD Gina Garrett in OV> 05/13/23 1535 Aamir Xavier DO IMG BI PROCEDURES Final Resu lt documented in this encounter Visit Diagnoses Not on filedocumented in this encounter Care Teams Transportation Security Screener Relationship Specialty Start Date End Date Kyle Gottlieb DO PCP - General Internal Medicine 02/16/23 documented as of this encounter
--- OUTSIDE RECORDS SUMMARY | 2025-06-21 10:57 | XMS_ITS | Encounter Summary ---
Author Organization [facility] Address [address] [facility] [place] [address] Care Team Providers Care Sales And Service Associate Name Role Phone Kyle Gottlieb DO Primary Care Provider [phone] Encounter Details Date Type Department Care Team (Late Contact Info) Description 01/20/2023 Abstract [facility] [address] [place] [address] Aamir Xavier DO [address] [facility] [address] [place] [address] Social History Tobacco Use Types [...] Clinical Support [facility] [address] [place] [address] Steven Ponce MD [address] [facility] [address] [place], [place] [id number] 04/11/2026 12:00 PM EDT Office Visit [facility] [address] [place] [address] Tristin Hayes MD [address] [place] [address] 05/11/2026 11:30 AM EDT Office Visit [facility] [address] [place] [address] Aamir Xavier DO [address] [place] [address] documented as of this encounter Visit Diagnoses Not on filedocumented in this encounter Care Teams Sales And Service Associate Relationship Specialty Start Date End Date Kyle Gottlieb DO PCP - General Internal Medicine 02/16/23 documented as of this encounter
--- OUTSIDE RECORDS SUMMARY | 2025-06-21 11:17 | XMS_ITS | CCD ---
Author Organization [facility] Care Team Providers Care Senior Security Engineer Name Role Phone Doni Rivera Unavailable DO Kyle Gottlieb Primary Care Provider DO Aamir Dao Attending Provider [phone] DO Aamir Dao Referring Provider Kyle Gottlieb [...] NADERER, DR ANA MARIA Lambert Attending Unavailable MICHA, DR MURPHY Primary Care Unavailable ZIEBER, DR [...] Care Provider DO Aamir Dao Attending Provider [phone] Tonya Harrison Unavailable Kyle Gottlieb MD Primary Care Provider DO Kyle Gottlieb Primary Care Provider DO Aamir Dao Attending Provider Kyle Gottlieb DO Primary Care Provider Aamir Dao DO Attending Provider Anita Garcia Attending Unavailable Anita Garcia Admitting Unavailable Kyle Gottlieb Primary Care Unavailable Aamir Dao Attending Unavailable Aamir Dao Admitting Unavailable Anita Garcia MD Attending Provider [phone] Anita Garcia MD Attending Provider Kyle Gottlieb DO Primary Care Provider Kyle Gottlieb DO Primary Care Provider Kyle Gottlieb DO Attending Provider [phone] Damaso Grey DO Attending Provider Byron Zuleta MD Attending Provider [phone] Aliza Daniel MD Attending Provider Kyle Gottlieb DO Primary Care Provider Kyle Gottlieb DO Attending Provider [phone] SHIVAM PONCE Attending Unavailable SHIVAM PONCE Attending Unavailable SHIVAM PONCE Attending Unavailable SHIVAM PONCE Attending Unavailable MEL HAYES Attending Unavailable AAMIR DAO Attending Unavailable SHIVAM PONCE Attending Unavailable SHIVAM PONCE Attending Unavailable SHIVAM PONCE Attending Unavailable SHIVAM PONCE Attending Unavailable SHIVAM PONCE Attending Unavailable Kyle Gottlieb DO Primary Care Provider Aliza Daniel MD Attending Provider Allergies Allergy Classification Reported Allergen(s) Allergy Type Date of Onset Reaction(s) Facility (20 sources) Amoxicillin Drug Allergy 11-29-19 22 [facility] (20 sources) Clarithromycin Drug Allergy 11-29-19 22 Unknown, [facility] (20 sources) Naproxen Drug Allergy 11-29-19 22 Unknown [facility] (20 sources) Sulfamethoxazole / Trimethoprim Drug Allergy 02-17-20 23 Unknown [facility] (20 sources) LEVOFLAXIN Propensity to adverse reactions 09-17-19 Unknown, Unknown Reaction [facility] (11 sources) Sulfamethoxazole / Trimethoprim; Translations: [Bactrim] Drug Allergy 11-19-19 14 Unknown [facility] (20 sources) levoFLOXacin; Translations: [Levofloxacin] Drug Allergy 11-29-19 Rash [facility] (20 sources) Sulfamethoxazole Drug Allergy 11-29-19 Unknown [facility] (20 sources) Trimethoprim Drug Allergy 11-29-19 Unknown [facility] (1 source) Amoxicillin Drug Allergy [facility] Repository (1 source) Clarithromycin Drug Allergy [facility] Repository (1 source) Naproxen Drug Allergy 11-19-19 14 [facility] Repository (17 sources) Baclofen Drug Allergy Unknown [facility] Other (17 sources) levoFLOXacin Drug Allergy Unknown [employer] [facility] Other (17 sources) Penicillin Drug Allergy Unknown [employer] [facility] Other (17 sources) predniSONE Drug Allergy Unknown [facility] Other (20 sources) Biaxin XL *MACROLIDES* Propensity to adverse reactions 09-17-19 Unknown, Unknown Reaction [facility] (2 sources) Allergies Reconciled Propensity to adverse reactions Unknown [facility] Other (2 sources) patient allergy list reviewed by nurse or physicia Propensity to adverse reactions 09-10-19 Comment:Done [facility] Other (17 sources) corticosteroid and/or corticosteroid derivative (FN) Drug allergy Unknown [facility] Other (20 sources) Substance with sulfonamide structure and antibacterial mechanism of action (substance) Drug allergy 05-27-20 Unknown [facility] Other (17 sources) Substance with penicillin structure and antibacterial mechanism of action (substance) Drug allergy Unknown [facility] Other (20 sources) Clarithromycin Allergy to substance 11-29-19 [facility] (20 sources) Corticosteroids Allergy to substance 09-17-19 Unknown Reaction [facility] (20 sources) Penicillins Allergy to substance 09-17-19 Unknown Reaction [facility] (20 sources) Sulfonamides (Antibiotic) Allergy to substance 09-17-19 Unknown Reaction [facility] (20 sources) Corticosteroids and derivatives Drug Allergy 03-09-20 Unknown [facility] (20 sources) Macrolides And Ketolides Drug Allergy 10-21-19 Unknown [facility] Healthcare Medications Current Medications Medication Drug Class(es) Dates Sig (Normalized) Sig (Original) benazepril hydrochloride 5 mg oral tablet (20 sources) Angiotensin Converting Enzyme Inhibitor Start: 06-19-2025 take 1 tablet by mouth once daily Benazepril 5 mg tablet Active 5 MG PO Daily June 19, 2025 11:58am Complies with drug therapy Start: 10-18-2024 End: 06-19-2025 benazepril (Lotensin) 10 MG tablet 03/28/2025 Active Start: 03-08-2024 End: 10-18-2024 take 1 tablet by mouth once daily Benazepril 5 mg tablet Discontinued 0 .ROUTE .COMPLEX October 18, 2024 12:49pm October 18, 2024 12:50pm TAKE 1 TABLET BY MOUTH ONCE DAILY Start: 03-08-2024 take 1 tablet by [place] once daily Benazepril Active 0 .ROUTE .COMPLEX March 08, 2024 8:40am TAKE 1 TABLET BY MOUTH ONCE DAILY Start: 11-28-2021 End: 05-09-2025 take 1 tablet by mouth once daily Benazepril 5 mg tablet Discontinued 5 MG PO Daily November 28, 2021 12:00am March 08, 2024 8:40am Benazepril HCl A ctive benzonatate 200 mg oral capsule (7 sources) Non-narcotic Antitussive Start: 11-15-2024 take 1 capsule by mouth three times daily Benzonatate 200 mg capsule Active 200 MG PO Three times daily 06 07November 15, 2024 12:00am Complies with drug therapy bisoprolol fumarate 2.5 mg / hydroCHLOROthiazide 6.25 [...] Active CAP PO August 16, 2024 1:00am Complies with drug therapy take 1 tablet by [place] [facility] once daily at mealtime take 1 tablet by [place] th every twenty-four hours Calcium + D 600-200 MG-UNIT 1 tablet wit h food Orally Once a day for 30 day(s) Active Calcium Carbonate-Vit D-Min (Calcium 600+D Plus Minerals) 600-400 MG-UNIT chewable tablet (20 sources) Calcium Carbonat e-Vit D-Min (Calcium 600+D Plus Minerals) 600-400 MG-UNIT chewable tablet every 12 (twelve) hours Active Calcium Carbonat e-Vit D-Min (Calcium 600+D [...] Daily as needed August 16, 2024 1:00am Complies with drug therapy Start: 11-28-2021 End: 10-21-2023 take 1 tablet by mouth once daily Cetirizine (Zyrtec) 10 mg tablet Discontinued 10 MG PO Daily November 28, 2021 12:00am October 21, 2023 12:30pm cyproheptadine hydrochloride 4 mg oral tablet (8 sources) Start: 06-19-2025 take 2 mg by mouth once daily at bedtime Cyproheptadine 4 mg tablet Active 2 MG PO Daily at bedtime June 19, 2025 12:00am Complies with drug therapy Start: 02-15-2025 End: 02-15-2026 take 0.5 tablet by mouth at bedtime cyproheptadine (Periactin) 4 MG tablet Indications: Vertigo , Acute rhinitis Take 0.5 tablets (2 mg) by mouth at bedtime 45 tablet 3 02/15/2025 02/15/2026 Active docusate sodium 100 mg oral capsule (20 sources) docusate sodium (Colace) 100 MG capsule 1 (one) time each day at the same time Active estradiol 0.1 mg/ml vaginal cream (20 sources) Estrogen Start: 05-09-2025 estradiol (Est race) 0.1 MG/GM vaginal cream Indications: Hormone replacement therapy Use 0.5 g vaginally once weekly. 42.5 g 1 05/09/2025 Active Start: 05-03-2024 End: 05-09-2025 estradiol (Estrace) 0.1 MG/G M vaginal cream Indications: Hormone replacement therapy Use 0.5 g vaginally once weekly. 42.5 g 05/03/2024 05/09/2025 Discontinued (Reorder) estrogens, conjugated (skilled nursing) 0.625 mg/ml vaginal cream (20 sources) Estrogen Start: 11-28-2021 Conjugated Est rogens (Premarin) 0.625 mg/gram cream Active 1 APPLIC TOPICAL As Directed November 28, 2021 12:00am Complies with drug therapy Start: 12-31-2016 End: 05-03-2024 Estrogens Conjugated (Premar [...] mg tablet Active 160 MG PO Daily October 27, 2024 6:10pm Complies with drug therapy Start: 11-04-2023 End: 10-27-2024 take 1 tablet by mouth once daily Fenofibrate 160 mg tablet Discontinued 0 .ROUTE .COMPLEX November 04, 2023 7:09pm October 27, 2024 6:11pm TAKE 1 TABLET BY MOUTH ONCE DAILY Start: 11-04-2023 take 1 tablet by [place] th once daily Fenofibrate Active 0 .ROUTE .COMPLEX November 04, 2023 7:09pm TAKE 1 TABLET BY MOUTH ONCE DAILY Start: 11-28-2021 End: 11-04-2023 take 1 tablet by mouth once daily Fenofibrate 160 mg tablet Discontinued 160 MG PO Daily November 28, 2021 12:00am November 04, 2023 7:09pm Start: 06-12-2010 fenofibrate mi cronized (Lofibra) 134 MG capsule 06/12/2010 Active Fish Owo-Etiwu-2-Vit C-Vit E 2,000-650-12 mg/2.5 gram emulsion in packet (11 sources) Start: 08-16-2024 Fish Oil-Thebes -3-Vit C-Vit E 2,000-650-12 mg/2.5 gram emulsion in packet Active GM PO August 16, 2024 1:00am Complies with drug therapy Start: 08-16-2024 Start: 08-16-2024 Fish Oil-Thebes -3-Vit C-Vit E 2,000-650-12 mg/2.5 gram emulsion in packet Active GM PO August 16, 2024 1:00am Start: 08-16-2024 Fish Oil-Thebes -3-Vit C-Vit E 2,000-650-12 mg/2.5 gram emulsion in packet Active GM PO August 16, 2024 12:00am Fish Oils (20 sources) take 1 capsule by mouth three ti mes daily take 1 capsule by mouth three ti mes daily Fish Oil 1200 MG 1 capsule Orally Three times a day for 30 day(s) Active fludrocortisone acetate 0.1 mg oral tablet (1 source) Start: 05-22-2025 take 1 tablet by mouth once daily fludrocortisone (Florinef) 0.1 MG tablet Indications: Orthostatic dizziness Take 1 tablet (0.1 mg) by mouth Daily for 7 days 7 tablet 1 05/22/2025 Active furosemide 40 mg oral tablet (1 source) Loop Diuretic Start: 12-17-2022 take 1 tablet by mouth every twenty-four hours Furosemide 40 MG 1 tablet Orally Once a day for 7 days Dec, Active gabapentin 300 mg oral capsule (20 sources) Anti-epileptic Agent Start: 07-18-2024 End: 05-29-2025 take 1 capsule by mouth once daily Gabapentin 300 mg capsule Active 0 .ROUTE .COMPLEX 90 May 29, 2025 7:36am TAKE 1 CAPSULE BY MOUTH ONCE DAILY Complies with drug therapy Start: 06-06-2009 End: 07-18-2024 take 1 capsule by mouth once daily at bedtime Gabapentin (Neurontin) 300 mg Capsule Discontinued 300 MG PO Daily at bedtime November 28, 2021 12:00am July 18, 2024 1:58pm take 1 capsule by [facility] every eight hours Neurontin 300 MG 1 capsule Orally Three times a day Active Hydrocortisone Acetate (Anucort-Hc) 25 mg suppository (20 sources) Start: 11-25-2023 Hydrocortisone Acetate (Anucort-Hc) 25 mg suppository Active 25 MG AZ Daily at bedtime 30 08November 25, 2023 10:27am Start: 11-25-2023 Hydrocortisone Acetate (Anucort-Hc) 25 mg suppository Active 25 MG AZ Daily at bedtime 30 08November 25, 2023 11:27am ipratropium bromide 0.042 mg/actuat metered dose nasal spray (20 sources) Anticholinergic Start: 02-16-2023 End: 07-09-2025 take 2 spray(s) nasal route in the morning, then take 2 spray(s) nasal route in the evening, then take 2 spray(s) nasal route at bedtime ipratropium (Atrovent) 0.06 % nasal spray Indications: Chronic rhinitis Administer 2 sprays into each nostril in the morning and 2 sprays in the evening and 2 sprays before bedtime. 45 mL 6 04/10/2025 07/09/2025 Active Mecobalamin (Vitamin B12) 10,000 mcg recon soln (11 sources) Start: 08-16-2024 Mecobalamin (Vitamin B12) 10,000 mcg recon soln Active MCG IV August 16, 2024 1:00am Complies with drug therapy Start: 08-16-2024 Start: 08-16-2024 Mecobalamin (V itamin B12) 10,000 mcg recon soln Active MCG IV August 16, 2024 1:00am Start: 08-16-2024 Mecobalamin (V itamin B12) 10,000 mcg recon soln Active MCG IV August 16, 2024 12:00am omeprazole 40 mg delayed release oral capsule (15 sources) Proton Pump Inhibitor Start: 08-16-2024 End: 06-13-2025 take 1 capsule by mouth twice daily Omeprazole 40 mg capsule,delayed release(DR/EC) Active 40 MG PO Twice daily 180 90 October 7th, 2025 8:47am Complies with drug therapy ondansetron 4 mg disintegrating oral tablet (20 sources) Serotonin-3 Receptor Antagonist Start: 10-04-2024 take 1 tablet by mouth every eight hours as needed for nausea and vomiting Ondansetron 4 mg tablet,disintegratin g Active 4 MG PO Every 8 hours as needed for nausea and vomiting 07 06October 04, 2024 1:00am Complies with drug therapy Start: 03-09-2024 End: 08-16-2024 take 1 tablet [...] NIGHT AT BEDTIME Complies with drug therapy Start: 06-06-2009 End: 01-12-2024 take 1 tablet by mouth at bedtime Oxcarbazepine (Trileptal) 300 mg Tablet Discontinued 300 MG PO Bedtime November 28, 2021 12:00am January 12, 2024 2:14pm sertraline 25 mg oral tablet (20 sources) Serotonin Reuptake Inhibitor Start: 02-09-2025 take 1 tablet by mouth once daily sertraline (Zoloft) 25 MG tablet Take 25 mg by mouth Daily 02/09/2025 Active Start: 11-12-2024 End: 05-11-2025 take 1 tablet by mouth once daily Sertraline 25 mg tablet Active 0 .ROUTE .COMPLEX May 11, 2025 7:10am TAKE 1 TABLET BY MOUTH EVERY DAY Complies with drug therapy Start: 10-18-2024 End: 11-12-2024 take 1 tablet by mouth once daily Sertraline 25 mg tablet Discontinued 25 MG PO Daily October 18, 2024 12:41pm November 12, 2024 5:03pm Start: 10-04-2024 End: 05-09-2025 take 1 tablet by mouth once daily [...] 12:00am August 16, 2024 12:11pm Start: 06-06-2009 tiZANidine (Za naflex) 4 MG capsule 06/06/2009 Active Start: 06-06-2009 take 1 tablet by [place] once at bedtime tiZANidine (Zanaflex) 4 MG capsule take 1 tablet (4MG) by ORAL route every bedtime Oral 06/06/2009 Active take 1 tablet by [place] every eight hours Zanaflex 4 MG 1 tablet as needed Orally every 8 hrs Active valACYclovir 500 mg oral tablet (20 sources) Herpesvirus Nucleoside Analog DNA Polymerase Inhibitor, Herpes Simplex Virus Nucleoside Analog DNA Polymerase Inhibitor, Herpes Zoster Virus Nucleoside Analog DNA Polymerase Inhibitor Start: 07-10-2023 valACYclovir (Valtr ex) 500 MG tablet 07/10/2023 Active Completed/Discontinued Medications Medication Drug Class(es) Dates Sig (Normalized) Sig (Original) azithromycin 250 mg oral tablet (20 sources) Macrolide Antimicrobial Start: 11-15-2024 End: 06-19-2025 Azithromycin 250 mg tablet Discontinued 250 MG PO .COMPLEX 6 November 15, 2024 12:00am June 19, 2025 11:25am 2 tabs on first day followed by 1 tab on days 2-5 Start: 11-25-2023 End: 06-14-2024 Azithromycin 250 mg tablet D iscontinued 250 MG PO As Directed 6 May 11, 2024 12:00am June 14, 2024 11:09am [...] mcg bupivacaine hydrochloride 5 mg/ml injectable solution (20 sources) Amide Local Anesthetic Start: 06-06-2025 End: 05-22-2025 bupivacaine (Marcaine) 0.5 % injection 5 mg Start: 06-06-2025 End: 05-22-2025 5 mg, Injection, Once, On 06/06/25 at 1000, For 1 dose Start: 03-29-2025 End: 03-22-2025 5 mg, Injection, Once, On 03/29/25 at 1315, For 1 dose Start: 02-14-2025 End: 02-13-2025 bupivacaine (Marcaine) 0.5 % injection 5 mg Start: 02-14-2025 End: 02-13-2025 5 mg, Injection, Once, On 02/14/25 at 1715, For 1 dose Start: 12-26-2024 End: 12-08-2024 bupivacaine (Marcaine) 0.5 % injection 5 mg Start: 12-26-2024 End: 12-08-2024 5 mg (1 mL), Injection, Once , On 12/26/24 at 1545, For 1 dose Start: 10-17-2024 End: 10-14-2024 bupivacaine (Marcaine) 0.5 % injection 5 mg Start: 10-17-2024 End: 10-14-2024 5 mg (1 mL), Injection, Once , On 10/17/24 at 1330, For 1 dose Start: 09-19-2024 [...] mg/ml injectable solution (20 sources) Corticosteroid Start: 06-06-2025 End: 05-22-2025 dexAMETHasone sod phos (Decadron) injection 4 mg Start: 06-06-2025 End: 05-22-2025 4 mg (1 mL), Injection, Once , On Thu06/06/25 at 1000, For 1 dose Start: 03-29-2025 End: 03-22-2025 4 mg (1 mL), Injection, Once , On Thu03/29/25 at 1315, For 1 dose Start: 02-14-2025 End: 02-13-2025 dexAMETHasone sod phos (Deca dron) injection 4 mg Start: 02-14-2025 End: 02-13-2025 4 mg (1 mL), Injection, Once , On Thu02/14/25 at 1715, For 1 dose Start: 12-26-2024 End: 12-08-2024 dexAMETHasone sod phos (Deca dron) injection 4 mg Start: 12-26-2024 End: 12-08-2024 [...] mg (1 mL), Injection, Once , On Thu08/18/24 at 1745, For 1 dose Start: 07-11-2024 End: 05-22-2025 dexAMETHasone sod phos (Deca dron) injection 4 mg Start: 06-01-2024 End: 06-01-2024 dexAMETHasone sod phos (Deca dron) injection 4 mg Start: 06-01-2024 End: 06-01-2024 4 mg (1 mL), Injection, Once , On Thu06/01/24 at 1630, For 1 dose Start: 03-17-2024 End: 05-22-2025 take 1 tablet by mouth in the morning dexAMETHasone (Decadron) 2 MG tablet Indications: Trochanteric bursitis of both hips Take 1 tablet (2 mg) by mouth in the morning and 1 tablet (2 mg) in the evening. Take with meals. Do all this for 10 days. 20 tablet 06/02/2024 05/22/2025 Discontinued (Therapy completed) dicyclomine hydrochloride 20 mg oral tablet (20 [...] 21, 2023 1:00am August 08, 2024 1:22pm hydrocortisone 25 mg/ml topical cream (20 sources) Corticosteroid Start: 10-21-2023 End: 08-16-2024 Hydrocortisone (Proctosol Hc) 2.5 % cream with perineal applicator Discontinued 1 APPLIC AZ 1 to 2 times per day as needed October 21, 2023 1:00am August 16, 2024 12:15pm Start: 11-28-2021 End: 04-17-2025 Hydrocortisone Acetate (Anuc ort-Hc) 25 mg suppository Discontinued 25 MG AZ Daily at bedtime October 21, 2023 1:00am November 25, 2023 11:27am Proctozone-HC 2. 5 % APPLY TOPICALLY 2 TO 4 TIMES DAILY for 90 Active Proctosol HC 2.5 % 1 application to affected area Rectal Twice a day for 30 days Active Anucort-HC Activ e Hydrocortisone (Proctosol Hc ) 2.5 % Cream With Applicator (20 sources) Start: 11-28-2021 End: 10-21-2023 Hydrocortisone (Proctosol Hc ) 2.5 % Cream With Applicator Discontinued 1 EACH AZ Daily as needed for Hemorrhoids November 28, 2021 12:00am October 21, 2023 12:30pm Start: 11-28-2021 End: 10-21-2023 Hydrocortisone (Proctosol Hc ) 2.5 % Cream With Applicator Discontinued 1 EACH AZ Daily as needed for Hemorrhoids November 27, 2021 11:00pm October 21, 2023 11:30am Start: 11-28-2021 End: 10-21-2023 Hydrocortisone (Proctosol Hc ) 2.5 % Cream With Applicator Discontinued 1 EACH AZ Daily November 28, 2021 12:00am October 21, 2023 12:30pm Start: 11-28-2021 Hydrocortisone (Proctosol Hc) 2.5 % Cream With Applicator Active 1 EACH AZ Daily November 27, 2021 11:00pm Start: 11-28-2021 Hydrocortisone (Proctosol Hc) 2.5 % Cream With Applicator Active 1 EACH AZ Daily November 28, 2021 12:00am metroNIDAZOLE 500 mg oral tablet (20 sources) Nitroimidazole Antimicrobial Start: 03-09-2024 End: 08-16-2024 take 1 tablet by mouth every eight hours Metronidazole 500 mg tablet Discontinued 500 MG PO Every 8 hours 27 03March 09, 2024 12:00am August 16, 2024 12:15pm [place]bes 7-Thx-Fce-Fish Oil (Fish Oil) 1,200 (144-216) mg Capsule (20 sources) Start: 11-28-2021 End: 10-21-2023 take 2 capsules by mouth at bedtime Thebes 9-Wld-Esr-Fish Oil (Fish Oil) 1,200 (144-216) mg Capsule Discontinued 2 CAP PO Bedtime November 27, 2021 11:00pm October 21, 2023 11:30am Start: 11-28-2021 End: 10-21-2023 take 2 capsules by mouth at bedtime Thebes 3-Uil-Eib-Fish Oil (Fish Oil) 1,200 (144-216) mg Capsule Discontinued 2 CAP PO Bedtime November 28, 2021 12:00am October 21, 2023 12:30pm Start: 11-28-2021 take 2 capsules by m outh at bedtime [place]bes 5-Qex-Rdw-Fish Oil (Fish Oil) 1,200 (144-216) mg Capsule Active 2 CAP PO Bedtime November 27, 2021 11:00pm Start: 11-28-2021 take 2 capsules by m outh at bedtime [place]bes 9-Jad-Bed-Fish Oil (Fish Oil) 1,200 (144-216) mg Capsule [...] each day at the same time Active Problems Active Problems Problem Classification Problem [...] organisms] Onset: 4 05-11-2024 Episodic Anxiety disorders (19 sources) Generalized anxiety disorder; Translations: [Generalized anxiety disorder] 10-04-2024 Chronic Chronic kidney disease (20 sources) Chronic kidney disease stage 3A ; Translations: [Stage 3a chronic kidney disease] Onset: 4 10-21-2023 Chronic Chronic obstructive pulmonary disease and bronchiectasis (20 sources) Mucopurulent chronic bronchitis; Translations: [Mucopurulent chronic bronchitis] Onset: 4 Chronic Conditions associated with dizziness or vertigo (12 sources) Dizziness and giddiness; Translations: [Dizziness and [...] [Pernicious anemia] Episodic Deficiency and other anemia (20 sources) Anemia; Translations: [Anemia, unspecified] Onset: 4 11-23-2023 Episodic Disorders of lipid metabolism (20 [...] INFECTION UNSPEC] Onset: 3 Episodic Menopausal disorders (20 sources) Atrophic vaginitis; Translations: [Postmenopausal atrophic vaginitis] Onset: 3 01-26-2023 Chronic Menopausal disorders (2 sources) Drug therapy finding; Translations: [Hormone replacement therapy] 05-03-2024 Episodic Mood disorders (20 sources) Mild recurrent major depression; Translations: [Major depressive disorder, recurrent, mild] Onset: 9 Chronic Multiple sclerosis (20 sources) Multiple sclerosis; Translations: [Multiple sclerosis] Onset: 3 Chronic Nausea and vomiting (20 sources) Nausea and vomiting; Translations: [Nausea with vomiting, unspecified] Onset: 4 Resolved: 2 Episodic Nonmalignant breast conditions (20 sources) Fibrocystic disease of breast; Translations: [Diffuse cystic mastopathy of unspecified breast] Onset: 3 01-26-2023 Chronic Nutritional deficiencies (1 source) Moderate protein-calorie malnutrition; Translations: [MODERATE PROTEIN-CALORIE MLNUTRIT] Onset: 3 Chronic Nutritional deficiencies (1 source) Deficiency of other specified B group vitamins Episodic Osteoarthritis (2 sources) Osteoarthritis; Translations: [Polyosteoarthritis, unspecified] Chronic Other aftercare (1 source) Other bed bug exterminator (current) drug therapy; Translations: [OTH [facility] CURRENT DRUG THERAPY] Onset: 3 Episodic Other aftercare (2 sources) Long-term current use of drug therapy; Translations: [Other bed bug exterminator (current) drug therapy] Episodic Other and unspecified [...] lung field Episodic Other nervous system disorders (20 sources) Brachial plexus disorder; Translations: [Brachial plexus [...] [Seasonal allergic rhinitis] Chronic Other upper respiratory disease (2 sources) Chronic rhinitis; Translations: [Chronic rhinitis] 04-10-2025 Chronic Other upper respiratory infections (11 sources) [...] region] Onset: 2 Chronic Sprains and strains (14 sources) Lumbar sprain; Translations: [Sprain of other [...] [CHRONIC KIDNEY DISEASE STAGE 3A] Onset: 02-04-2023 Esophageal disorders (6 sources) Esophageal disorders; Translations: [...] Malaise; Translations: [Other malaise] Onset: 12-25-2017 Episodic Noninfectious gastroenteritis (2 sources) Non-infective enteritis and colitis; Translations: [Noninfective gastroenteritis and colitis, unspecified] Onset: 11-18-2013 Episodic Nonspecific chest pain (2 sources) Chest pain; Translations: [Chest pain, unspecified] Onset: 03-08-2015 Episodic Other acquired deformities (20 sources) Acquired spondylolisthesis; Translations: [Spondylolisthesis, site unspecified] Onset: 01-26-2023 01-26-2023 Episodic Other connective tissue disease (2 sources) Pain in left lower limb; Translations: [Pain in left leg] Onset: 03-31-2016 Episodic Other connective tissue disease (20 sources) Muscle pain; Translations: [Myalgia, unspecified site] Onset: 01-26-2023 01-26-2023 Episodic Other connective tissue disease (20 sources) Pain in left foot; Translations: [Pain in left foot] Onset: 03-30-2024 03-30-2024 Episodic Other gastrointestinal disorders (2 sources) 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; Translations: [Irritable bowel syndrome with constipation] Resolved: 11-30-2020 Chronic Other lower respiratory disease (2 sources) Dyspnea; Translations: [Dyspnea, unspecified] Onset: 03-08-2015 Episodic Other nervous system disorders (20 sources) Skin sensation disturbance; Translations: [Unspecified disturbances [...] disc disorders; other back problems (20 sources) Low back pain; Translations: [Low back [...] Range Facility Basophils Auto (Bld) [#/Vol] on 02-08-2025 Basophils (Bld) [#/Vol] 0.0 10 3/uL 0.0-0.1 [facility] Basophils/100 WBC Auto (Bld) on 02-08-2025 Basophils/100 WBC (Bld) 0.2 % 0.2-2.0 [facility] Eosinophils/100 WBC Auto (Bl d)on 02-08-2025 Eosinophils/100 WBC (Bld) 0.2 % Low 0.9-7.0 [facility] Erythrocyte distribution wid th Auto (RBC) [Ratio]on 02-08-2025 Erythrocyte distribution width (RBC) [Ratio] 13.6 % 11.0-15.0 [facility] Estimated glomerular filtrat ion rate (GFR) non- Americanon 02-08-2025 GFR/1.73 sq M.predicted among non-blacks MDRD (S/P/Bld) [Vol rate/Area] mL/min/{1.73_m2} >=60 mL/min/1.73m 2 [facility] Hematocrit Auto (Bld) [Volum e fraction]on 02-08-2025 Hematocrit (Bld) [Volume fraction] 32.1 % Low 36.0-48.0 [facility] Hemoglobin [Mass/volume] in Bloodon 02-08-2025 Hemoglobin (Bld) [Mass/Vol] 10.7 g/dL Low 12.0-16.0 [facility] Laboratory - Chemistry and C hemistry - challengeon 02-08-2025 Calcium [Mass/Vol] 8.7 mg/dL 8.5-10.1 [facility] Chloride [Moles/Vol] 106 mmol/L 98-107 [facility] CO2 [Moles/Vol] 27.9 mmol/L 21.0-32.0 [facility] Creatinine [Mass/Vol] 0.79 mg/dL 0.55-1.02 [facility] GFR/1.73 sq M.predicted MDRD (S/P/Bld) [Vol rate/Area] mL/min/{1.73_m2} >=60 mL/min/1.73m 2 [facility] Glucose [Mass/Vol] 123 mg/dL High 74-106 [facility] Potassium [Moles/Vol] 3.7 mmol/L 3.5-5.1 [facility] Sodium [Moles/Vol] 141 mmol/L 136-145 [facility] Urea nitrogen [Mass/Vol] 15.0 mg/dL 7.0-18.0 [facility] Urea nitrogen/Creatinine [Mass ratio] 19.0 mg/mg [facility] Laboratory - Hematology and Cell countson 02-08-2025 Immature granulocytes/100 WBC (Bld) 0.5 % 0.0-0.5 [facility] Leukocytes [#/volume] correc bill for nucleated erythrocytes in Blood by Automated counon 02-08-2025 WBC corrected for nucl RBC Auto (Bld) [#/Vol] 4.2 10 3/uL 4.0-11.0 [facility] Lymphocytes Auto (Bld) [#/Vo l]on 02-08-2025 Lymphocytes (Bld) [#/Vol] 0.6 10 3/uL Low 1.2-3.8 [facility] Lymphocytes/100 WBC Auto (Bl d)on 02-08-2025 Lymphocytes/100 WBC (Bld) 14.6 % Low 20.5-60.0 [facility] MCH Auto (RBC) [Entitic mass ]on 02-08-2025 MCH (RBC) [Entitic mass] 30.3 pg 26.7-34.0 [facility] MCHC Auto (RBC) [Mass/Vol]on 02-08-2025 MCHC (RBC) [Mass/Vol] 33.3 g/dL 29.9-35.2 [facility] MCV Auto (RBC) [Entitic vol] on 02-08-2025 MCV (RBC) [Entitic vol] 90.9 fL 81.0-99.0 [facility] Monocytes Auto (Bld) [#/Vol] on 02-08-2025 Monocytes (Bld) [#/Vol] 0.2 10 3/uL Low 0.3-0.8 [facility] Monocytes/100 WBC Auto (Bld) on 02-08-2025 Monocytes/100 WBC (Bld) 4.3 % 1.7-12.0 [facility] Neutrophils Auto (Bld) [#/Vo l]on 02-08-2025 Neutrophils (Bld) [#/Vol] 3.3 10 3/uL 1.4-6.5 [facility] Neutrophils/100 WBC Auto (Bl d)on 02-08-2025 Neutrophils/100 WBC (Bld) 80.2 % High 43.0-75.0 [facility] No Panel Informationon 02-08 Eosinophils # (Auto) 0.0 10 3/uL 0.0-0.7 [facility] Immature Granulocyte # (Auto) 0.02 10 3/uL 0.00-0.03 [facility] Platelet mean volume Auto (B ld) [Entitic vol]on 02-08-2025 Platelet mean volume (Bld) [Entitic vol] 10.0 fL 9.5-13.5 [facility] Platelets Auto (Bld) [#/Vol] on 02-08-2025 Platelets (Bld) [#/Vol] 176 10 3/uL 150-450 [facility] RBC Auto (Bld) [#/Vol]on RBC (Bld) [#/Vol] 3.53 10 6/uL Low 4.20-5.40 [facility] Serum or plasma anion gap de terminationon 02-08-2025 Anion gap [Moles/Vol] 10.8 mmol/L [facility] Basophils Auto (Bld) [#/Vol] on 02-07-2025 Basophils (Bld) [#/Vol] 0.0 10 3/uL 0.0-0.1 [facility] Basophils/100 WBC Auto (Bld) on 02-07-2025 Basophils/100 WBC (Bld) 0.2 % 0.2-2.0 [facility] Eosinophils/100 WBC Auto (Bl d)on 02-07-2025 Eosinophils/100 WBC (Bld) 1.6 % 0.9-7.0 [facility] Erythrocyte distribution wid th Auto (RBC) [Ratio]on 02-07-2025 Erythrocyte distribution width (RBC) [Ratio] 13.9 % 11.0-15.0 [facility] Estimated glomerular filtrat ion rate (GFR) non- Americanon 02-07-2025 GFR/1.73 sq M.predicted among non-blacks MDRD (S/P/Bld) [Vol rate/Area] 50 mL/min/{1.73_m2} Low >=60 mL/min/1.73m 2 [facility] Globulin Calc (S) [Mass/Vol] on 02-07-2025 Globulin (S) [Mass/Vol] 3.0 g/dL [facility] Hematocrit Auto (Bld) [Volum e fraction]on 02-07-2025 Hematocrit (Bld) [Volume fraction] 35.1 % Low 36.0-48.0 [facility] Hemoglobin [Mass/volume] in Bloodon 02-07-2025 Hemoglobin (Bld) [Mass/Vol] 11.6 g/dL Low 12.0-16.0 [facility] Laboratory - Chemistry and C hemistry - challengeon 02-07-2025 Albumin [Mass/Vol] 3.5 g/dL 3.4-5.0 [facility] ALP [Catalytic activity/Vol] 58 U/L 46-116 [facility] ALT [Catalytic activity/Vol] 19 U/L 14-59 [facility] AST [Catalytic activity/Vol] 23 U/L 15-37 [facility] Bilirubin [Mass/Vol] 0.5 mg/dL 0.2-1.0 [facility] Bilirubin.direct [Mass/Vol] 0.2 mg/dL 0.0-0.2 [facility] Calcium [Mass/Vol] 9.2 mg/dL 8.5-10.1 [facility] Chloride [Moles/Vol] 104 mmol/L 98-107 [facility] CO2 [Moles/Vol] 24.4 mmol/L 21.0-32.0 [facility] Creatinine [Mass/Vol] 1.06 mg/dL High 0.55-1.02 [facility] GFR/1.73 sq M.predicted MDRD (S/P/Bld) [Vol rate/Area] mL/min/{1.73_m2} >=60 mL/min/1.73m 2 [facility] Glucose [Mass/Vol] 114 mg/dL High 74-106 [facility] Potassium [Moles/Vol] 3.6 mmol/L 3.5-5.1 [facility] Protein [Mass/Vol] 6.5 g/dL 6.4-8.2 [facility] Sodium [Moles/Vol] 141 mmol/L 136-145 [facility] Urea nitrogen [Mass/Vol] 21.0 mg/dL High 7.0-18.0 [facility] Urea nitrogen/Creatinine [Mass ratio] 19.8 mg/mg [facility] Bilirubin Ql (U) Negative NEGATIVE [facility] Glucose (U) [Mass/Vol] Negative NEGATIVE [facility] Ketones Ql (U) Negative NEGATIVE [facility] pH (U) 6.0 [pH] 5.0-9.0 [facility] Specific gravity (U) [Rel density] 1.020 1.005-1.025 [facility] Urobilinogen Qn (U) 1.0 {Avery'U}/dL 0.2-1.0 [facility] Laboratory - Hematology and Cell countson 02-07-2025 Immature granulocytes/100 WBC (Bld) 0.4 % 0.0-0.5 [facility] Laboratory - Specimen inform ationon 02-07-2025 Appearance (U) CLEAR CLEAR [facility] Color (U) LT. YELLOW YELLOW [facility] Laboratory - Urinalysison Leukocyte esterase Test strip Ql (U) Negative NEGATIVE [facility] Mucus Ql (Urine sed) TRACE Abnormal NONE SEEN [facility] Nitrite Ql (U) Negative NEGATIVE [facility] Protein Ql (U) Negative NEG/TRACE [facility] Leukocytes [#/volume] correc bill for nucleated erythrocytes in Blood by Automated counon 02-07-2025 WBC corrected for nucl RBC Auto (Bld) [#/Vol] 4.5 10 3/uL 4.0-11.0 [facility] Lymphocytes Auto (Bld) [#/Vo l]on 02-07-2025 Lymphocytes (Bld) [#/Vol] 0.8 10 3/uL Low 1.2-3.8 [facility] Lymphocytes/100 WBC Auto (Bl d)on 02-07-2025 Lymphocytes/100 WBC (Bld) 18.2 % Low 20.5-60.0 [facility] MCH Auto (RBC) [Entitic mass ]on 02-07-2025 MCH (RBC) [Entitic mass] 30.0 pg 26.7-34.0 [facility] MCHC Auto (RBC) [Mass/Vol]on 02-07-2025 MCHC (RBC) [Mass/Vol] 33.0 g/dL 29.9-35.2 [facility] MCV Auto (RBC) [Entitic vol] on 02-07-2025 MCV (RBC) [Entitic vol] 90.7 fL 81.0-99.0 [facility] Monocytes Auto (Bld) [#/Vol] on 02-07-2025 Monocytes (Bld) [#/Vol] 0.3 10 3/uL 0.3-0.8 [facility] Monocytes/100 WBC Auto (Bld) on 02-07-2025 Monocytes/100 WBC (Bld) 6.3 % 1.7-12.0 [facility] Neutrophils Auto (Bld) [#/Vo l]on 02-07-2025 Neutrophils (Bld) [#/Vol] 3.3 10 3/uL 1.4-6.5 [facility] Neutrophils/100 WBC Auto (Bl d)on 02-07-2025 Neutrophils/100 WBC (Bld) 73.3 % 43.0-75.0 [facility] No Panel Informationon 02-07 Eosinophils # (Auto) 0.1 10 3/uL 0.0-0.7 [facility] Immature Granulocyte # (Auto) 0.02 10 3/uL 0.00-0.03 [facility] Urine Bacteria TRACE #/HPF Abnormal NONE SEEN [facility] Urine Culture Reflexed NO [facility] Urine Occult Blood Negative NEGATIVE [facility] Urine Other Casts NONE SEEN #/LPF NONE SEEN [facility] Urine Other Crystals None Seen #/HPF None Seen [facility] Urine RBC NONE SEEN #/HPF 0-2 [facility] Urine Squamous Epithelial Cells MODERATE #/LPF Abnormal NONE/RARE [facility] Urine WBC 0-2 #/HPF Abnormal NONE SEEN [facility] Platelet mean volume Auto (B ld) [Entitic vol]on 02-07-2025 Platelet mean volume (Bld) [Entitic vol] 10.4 fL 9.5-13.5 [facility] Platelets Auto (Bld) [#/Vol] on 02-07-2025 Platelets (Bld) [#/Vol] 189 10 3/uL 150-450 [facility] RBC Auto (Bld) [#/Vol]on RBC (Bld) [#/Vol] 3.87 10 6/uL Low 4.20-5.40 [facility] Serum or plasma albumin/glob ulin mass ratioon 02-07-2025 Albumin/Globulin [Mass ratio] 1.2 {ratio} [facility] Serum or plasma anion gap de terminationon 02-07-2025 Anion gap [Moles/Vol] 16.2 mmol/L [facility] Influenza virus B Ag [Presen ce] in Upper respiratory specimen by Rapid immunoassayon 11-15-2024 FLUBV Ag IA.rapid Ql (Nph) Influenza virus B Ag [Presence] in Upper respiratory specimen by Rapid immunoassay [facility] No Panel Informationon 11-15 Influenza Type A (Rapid) Negative [facility] POC SARS CoV-2 Antigen Negative [facility] Basophils Auto (Bld) [#/Vol] on 09-30-2024 Basophils (Bld) [#/Vol] Automated basophil count 0.0-0.1 [facility] Basophils/100 WBC Auto (Bld) on 09-30-2024 Basophils/100 WBC (Bld) Automated basophil % 0.2-2.0 [facility] Eosinophils/100 WBC Auto (Bl d)on 09-30-2024 Eosinophils/100 WBC (Bld) Automated eosinophil % 0.9-7.0 [facility] Erythrocyte distribution wid th Auto (RBC) [Ratio]on 09-30-2024 Erythrocyte distribution width (RBC) [Ratio] Erythrocyte distribution width [Ratio] by Automated count 11.0-15.0 [facility] Estimated glomerular filtrat ion rate (GFR) non- Americanon 09-30-2024 GFR/1.73 sq M.predicted among non-blacks MDRD (S/P/Bld) [Vol rate/Area] Estimated glomerular filtration rate (GFR) non- Low >=60 mL/min/1.73m 2 [facility] Globulin Calc (S) [Mass/Vol] on 09-30-2024 Globulin (S) [Mass/Vol] Serum globulin measurement by calculation (mass/volume) [facility] Hematocrit Auto (Bld) [Volum e fraction]on 09-30-2024 Hematocrit (Bld) [Volume fraction] Hematocrit [Volume Fraction] of Blood by Automated count 36.0-48.0 [facility] Hemoglobin [Mass/volume] in Bloodon 09-30-2024 Hemoglobin (Bld) [Mass/Vol] Hemoglobin [Mass/volume] in Blood 12.0-16.0 [facility] INR in Platelet poor plasma by Coagulation assayon 09-30-2024 INR Coag (PPP) [Relative time] INR in Platelet poor plasma by Coagulation assay [facility] Comment on above: DESIRED INR:2.0-3.0 CONDITIONS NOT LISTED BELOW2.5-3.5 FOR PROSTHETIC HEART VALVE REPLACEMENT2.5-3.5 RECURRENT THROMBOSIS Laboratory - Chemistry and C hemistry - challengeon 09-30-2024 Bilirubin Ql (U) Negative NEGATIVE [facility] Glucose (U) [Mass/Vol] Negative NEGATIVE [facility] Ketones Ql (U) Negative NEGATIVE [facility] pH (U) 7.0 [pH] 5.0-9.0 [facility] Specific gravity (U) [Rel density] 1.010 1.005-1.025 [facility] Urobilinogen Qn (U) 0.2 {Avery'U}/dL 0.2-1.0 [facility] Albumin [Mass/Vol] 3.7 g/dL 3.4-5.0 [facility] ALP [Catalytic activity/Vol] 53 U/L 46-116 [facility] ALT [Catalytic activity/Vol] 19 U/L 14-59 [facility] AST [Catalytic activity/Vol] 22 U/L 15-37 [facility] Bilirubin [Mass/Vol] 0.5 mg/dL 0.2-1.0 [facility] Calcium [Mass/Vol] 9.2 mg/dL 8.5-10.1 [facility] Chloride [Moles/Vol] 102 mmol/L 98-107 [facility] CO2 [Moles/Vol] 28.2 mmol/L 21.0-32.0 [facility] Creatinine [Mass/Vol] 1.29 mg/dL High 0.55-1.02 [facility] GFR/1.73 sq M.predicted MDRD (S/P/Bld) [Vol rate/Area] 48 mL/min/{1.73_m2} Low >=60 mL/min/1.73m 2 [facility] Glucose [Mass/Vol] 110 mg/dL High 74-106 [facility] Lactate [Moles/Vol] 1.1 mmol/L 0.4-2.0 [facility] Potassium [Moles/Vol] 3.7 mmol/L 3.5-5.1 [facility] Protein [Mass/Vol] 7.0 g/dL 6.4-8.2 [facility] Sodium [Moles/Vol] 138 mmol/L 136-145 [facility] TSH Qn 3.306 m[IU]/L 0.358-3.740 [facility] Urea nitrogen [Mass/Vol] 18.0 mg/dL 7.0-18.0 [facility] Urea nitrogen/Creatinine [Mass ratio] 14.0 mg/mg [facility] Laboratory - Hematology and Cell countson 09-30-2024 Immature granulocytes/100 WBC (Bld) 0.4 % 0.0-0.5 [facility] Laboratory - Specimen inform ationon 09-30-2024 Appearance (U) CLEAR CLEAR [facility] Color (U) LT. YELLOW YELLOW [facility] Laboratory - Urinalysison Leukocyte esterase Test strip Ql (U) Negative NEGATIVE [facility] Mucus Ql (Urine sed) NONE SEEN NONE SEEN [facility] Nitrite Ql (U) Negative NEGATIVE [facility] Protein Ql (U) Negative NEG/TRACE [facility] Leukocytes [#/volume] correc bill for nucleated erythrocytes in Blood by Automated counon 09-30-2024 WBC corrected for nucl RBC Auto (Bld) [#/Vol] Leukocytes [#/volume] corrected for nucleated erythrocytes in Blood by Automated coun 4.0-11.0 [facility] Lymphocytes Auto (Bld) [#/Vo l]on 09-30-2024 Lymphocytes (Bld) [#/Vol] Lymphocytes [#/volume] in Blood by Automated count Low 1.2-3.8 [facility] Lymphocytes/100 WBC Auto (Bl d)on 09-30-2024 Lymphocytes/100 WBC (Bld) Lymphocytes/100 leukocytes in Blood by Automated count 20.5-60.0 [facility] MCH Auto (RBC) [Entitic mass ]on 09-30-2024 MCH (RBC) [Entitic mass] MCH [Entitic mass] by Automated count 26.7-34.0 [facility] MCHC Auto (RBC) [Mass/Vol]on 09-30-2024 MCHC (RBC) [Mass/Vol] MCHC [Mass/volume] by Automated count 29.9-35.2 [facility] MCV Auto (RBC) [Entitic vol] on 09-30-2024 MCV (RBC) [Entitic vol] MCV [Entitic volume] by Automated count 81.0-99.0 [facility] Monocytes Auto (Bld) [#/Vol] on 09-30-2024 Monocytes (Bld) [#/Vol] Automated blood monocyte count 0.3-0.8 [facility] Monocytes/100 WBC Auto (Bld) on 09-30-2024 Monocytes/100 WBC (Bld) Automated monocyte % 1.7-12.0 [facility] Neutrophils Auto (Bld) [#/Vo l]on 09-30-2024 Neutrophils (Bld) [#/Vol] Neutrophils [#/volume] in Blood by Automated count 1.4-6.5 [facility] Neutrophils/100 WBC Auto (Bl d)on 09-30-2024 Neutrophils/100 WBC (Bld) Automated neutrophil % 43.0-75.0 [facility] No Panel Informationon 09-30 Urine Bacteria TRACE #/HPF Abnormal NONE SEEN [facility] Urine Culture Reflexed NO [facility] Urine Occult Blood Negative NEGATIVE [facility] Urine Other Casts NONE SEEN #/LPF NONE SEEN [facility] Urine Other Crystals None Seen #/HPF None Seen [facility] Urine RBC 0-2 #/HPF 0-2 [facility] Urine Squamous Epithelial Cells FEW #/LPF Abnormal NONE/RARE [facility] Urine WBC 0-2 #/HPF Abnormal NONE SEEN [facility] Eosinophils # (Auto) 0.1 10 3/uL 0.0-0.7 [facility] Immature Granulocyte # (Auto) 0.02 10 3/uL 0.00-0.03 [facility] Troponin I High Sensitivity 21.8 pg/mL 4.0-51.3 [facility] Comment on above: CUT-OFF POINTS HAVE BEEN [...] volume] in Blood by Automated count 9.5-13.5 [facility] Platelets Auto (Bld) [#/Vol] on 09-30-2024 Platelets (Bld) [#/Vol] Platelets [#/volume] in Blood by Automated count 150-450 [facility] Prothrombin time (PT)on 09-08 PT Coag (PPP) [Time] Prothrombin time (PT) 9.0- 11.6 [facility] RBC Auto (Bld) [#/Vol]on RBC (Bld) [#/Vol] Erythrocytes [#/volume] in Blood by Automated count Low 4.20-5.40 [facility] Serum or plasma albumin/glob ulin mass ratioon 09-30-2024 Albumin/Globulin [Mass ratio] Serum or plasma albumin/globulin mass ratio [facility] Serum or plasma anion gap de terminationon 09-30-2024 Anion gap [Moles/Vol] Serum or plasma anion gap determination [facility] Basophils Auto (Bld) [#/Vol] on 09-23-2024 Basophils (Bld) [#/Vol] Automated basophil count 0.0-0.1 [facility] Basophils/100 WBC Auto (Bld) on 09-23-2024 Basophils/100 WBC (Bld) Automated basophil % 0.2-2.0 [facility] Eosinophils/100 WBC Auto (Bl d)on 09-23-2024 Eosinophils/100 WBC (Bld) Automated eosinophil % 0.9-7.0 [facility] Erythrocyte distribution wid th Auto (RBC) [Ratio]on 09-23-2024 Erythrocyte distribution width (RBC) [Ratio] Erythrocyte distribution width [Ratio] by Automated count 11.0-15.0 [facility] Estimated glomerular filtrat ion rate (GFR) non- Americanon 09-23-2024 GFR/1.73 sq M.predicted among non-blacks MDRD (S/P/Bld) [Vol rate/Area] Estimated glomerular filtration rate (GFR) non- Low >=60 mL/min/1.73m 2 [facility] Hematocrit Auto (Bld) [Volum e fraction]on 09-23-2024 Hematocrit (Bld) [Volume fraction] Hematocrit [Volume Fraction] of Blood by Automated count 36.0-48.0 [facility] Hemoglobin [Mass/volume] in Bloodon 09-23-2024 Hemoglobin (Bld) [Mass/Vol] Hemoglobin [Mass/volume] in Blood Low 12.0-16.0 [facility] Iron binding capacity [Mass/ volume] in Serum or Plasmaon 09-23-2024 Iron binding capacity [Mass/Vol] Iron binding capacity [Mass/volume] in Serum or Plasma 250.0-450.0 [facility] Iron saturation [Mass Fracti on] in Serum or Plasmaon 09-23-2024 Iron saturation [Mass fraction] Iron saturation [Mass Fraction] in Serum or Plasma [facility] Laboratory - Chemistry and C hemistry - challengeon 09-23-2024 Calcium [Mass/Vol] 8.9 mg/dL 8.5-10.1 [facility] Chloride [Moles/Vol] 104 mmol/L 98-107 [facility] CO2 [Moles/Vol] 28.5 mmol/L 21.0-32.0 [facility] Cobalamin (Vitamin B12) [Mass/Vol] 815 pg/mL [id number] [facility] Comment on above: Performed at: [address] [id number] Director: Nicanor Omalley PhD, Phone: [phone] Creatinine [Mass/Vol] 1.15 mg/dL High 0.55-1.02 [facility] Ferritin [Mass/Vol] 43.0 ng/mL 8.0-252.0 [facility] GFR/1.73 sq M.predicted MDRD (S/P/Bld) [Vol rate/Area] 55 mL/min/{1.73_m2} Low >=60 mL/min/1.73m 2 [facility] Glucose [Mass/Vol] 86 mg/dL 74-106 [facility] Iron [Mass/Vol] 89.0 ug/dL 50.0-170.0 [facility] Potassium [Moles/Vol] 3.9 mmol/L 3.5-5.1 [facility] Sodium [Moles/Vol] 144 mmol/L 136-145 [facility] TSH Qn 1.732 m[IU]/L 0.358-3.740 [facility] Urea nitrogen [Mass/Vol] 16.0 mg/dL 7.0-18.0 [facility] Urea nitrogen/Creatinine [Mass ratio] 13.9 mg/mg [facility] Laboratory - Hematology and Cell countson 09-23-2024 ESR (Bld) [Velocity] 9 mm/h <=30 [facility] Immature granulocytes/100 WBC (Bld) 0.9 % High 0.0-0.5 [facility] Leukocytes [#/volume] correc bill for nucleated erythrocytes in Blood by Automated counon 09-23-2024 WBC corrected for nucl RBC Auto (Bld) [#/Vol] Leukocytes [#/volume] corrected for nucleated erythrocytes in Blood by Automated coun 4.0-11.0 [facility] Lymphocytes Auto (Bld) [#/Vo l]on 09-23-2024 Lymphocytes (Bld) [#/Vol] Lymphocytes [#/volume] in Blood by Automated count Low 1.2-3.8 [facility] Lymphocytes/100 WBC Auto (Bl d)on 09-23-2024 Lymphocytes/100 WBC (Bld) Lymphocytes/100 leukocytes in Blood by Automated count 20.5-60.0 [facility] MCH Auto (RBC) [Entitic mass ]on 09-23-2024 MCH (RBC) [Entitic mass] MCH [Entitic mass] by Automated count 26.7-34.0 [facility] MCHC Auto (RBC) [Mass/Vol]on 09-23-2024 MCHC (RBC) [Mass/Vol] MCHC [Mass/volume] by Automated count 29.9-35.2 [facility] MCV Auto (RBC) [Entitic vol] on 09-23-2024 MCV (RBC) [Entitic vol] MCV [Entitic volume] by Automated count 81.0-99.0 [facility] Monocytes Auto (Bld) [#/Vol] on 09-23-2024 Monocytes (Bld) [#/Vol] Automated blood monocyte count 0.3-0.8 [facility] Monocytes/100 WBC Auto (Bld) on 09-23-2024 Monocytes/100 WBC (Bld) Automated monocyte % 1.7-12.0 [facility] Neutrophils Auto (Bld) [#/Vo l]on 09-23-2024 Neutrophils (Bld) [#/Vol] Neutrophils [#/volume] in Blood by Automated count 1.4-6.5 [facility] Neutrophils/100 WBC Auto (Bl d)on 09-23-2024 Neutrophils/100 WBC (Bld) Automated neutrophil % 43.0-75.0 [facility] No Panel Informationon 09-23 C-Reactive Protein, Quantitative <0.50 mg/dL <=0.50 [facility] Eosinophils # (Auto) 0.2 10 3/uL 0.0-0.7 [facility] Folate 22.90 ng/mL 8.60-58.90 [facility] Immature Granulocyte # (Auto) 0.04 10 3/uL High 0.00-0.03 [facility] Platelet mean volume Auto (B ld) [Entitic vol]on 09-23-2024 Platelet mean volume (Bld) [Entitic vol] Platelet mean volume [Entitic volume] in Blood by Automated count 9.5-13.5 [facility] Platelets Auto (Bld) [#/Vol] on 09-23-2024 Platelets (Bld) [#/Vol] Platelets [#/volume] in Blood by Automated count 150-450 [facility] RBC Auto (Bld) [#/Vol]on RBC (Bld) [#/Vol] Erythrocytes [#/volume] in Blood by Automated count Low 4.20-5.40 [facility] Reticulocytes/100 RBC Auto ( Bld)on 09-23-2024 Reticulocytes/100 RBC (Bld) Reticulocyte % auto 0.60-3.10 [facility] Serum or plasma anion gap de terminationon 09-23-2024 Anion gap [Moles/Vol] Serum or plasma anion gap determination [facility] [facility] Basophils Auto (Bld) [#/Vol] on 09-06-2024 Basophils (Bld) [#/Vol] Automated basophil count 0.0-0.1 [facility] Basophils/100 WBC Auto (Bld) on 09-06-2024 Basophils/100 WBC (Bld) Automated basophil % 0.2-2.0 [facility] Eosinophils/100 WBC Auto (Bl d)on 09-06-2024 Eosinophils/100 WBC (Bld) Automated eosinophil % 0.9-7.0 [facility] Erythrocyte distribution wid th Auto (RBC) [Ratio]on 09-06-2024 Erythrocyte distribution width (RBC) [Ratio] Erythrocyte distribution width [Ratio] by Automated count 11.0-15.0 [facility] Estimated glomerular filtrat ion rate (GFR) non- Americanon 09-06-2024 GFR/1.73 sq M.predicted among non-blacks MDRD (S/P/Bld) [Vol rate/Area] Estimated glomerular filtration rate (GFR) non- Low >=60 mL/min/1.73m 2 [facility] Hematocrit Auto (Bld) [Volum e fraction]on 09-06-2024 Hematocrit (Bld) [Volume fraction] Hematocrit [Volume Fraction] of Blood by Automated count Low 36.0-48.0 [facility] Hemoglobin [Mass/volume] in Bloodon 09-06-2024 Hemoglobin (Bld) [Mass/Vol] Hemoglobin [Mass/volume] in Blood Low 12.0-16.0 [facility] Laboratory - Chemistry and C hemistry - challengeon 09-06-2024 Calcium [Mass/Vol] 8.1 mg/dL Low 8.5-10.1 [facility] Chloride [Moles/Vol] 111 mmol/L High 98-107 [facility] CO2 [Moles/Vol] 27.9 mmol/L 21.0-32.0 [facility] Creatinine [Mass/Vol] 0.97 mg/dL 0.55-1.02 [facility] GFR/1.73 sq M.predicted MDRD (S/P/Bld) [Vol rate/Area] mL/min/{1.73_m2} >=60 mL/min/1.73m 2 [facility] Glucose [Mass/Vol] 95 mg/dL 74-106 [facility] Potassium [Moles/Vol] 3.2 mmol/L Low 3.5-5.1 [facility] Sodium [Moles/Vol] 146 mmol/L High 136-145 [facility] Urea nitrogen [Mass/Vol] 11.0 mg/dL 7.0-18.0 [facility] Urea nitrogen/Creatinine [Mass ratio] 11.3 mg/mg [facility] Laboratory - Hematology and Cell countson 09-06-2024 Immature granulocytes/100 WBC (Bld) 0.6 % High 0.0-0.5 [facility] Leukocytes [#/volume] correc bill for nucleated erythrocytes in Blood by Automated counon 09-06-2024 WBC corrected for nucl RBC Auto (Bld) [#/Vol] Leukocytes [#/volume] corrected for nucleated erythrocytes in Blood by Automated coun Low 4.0-11.0 [facility] Lymphocytes Auto (Bld) [#/Vo l]on 09-06-2024 Lymphocytes (Bld) [#/Vol] Lymphocytes [#/volume] in Blood by Automated count 1.2-3.8 [facility] Lymphocytes/100 WBC Auto (Bl d)on 09-06-2024 Lymphocytes/100 WBC (Bld) Lymphocytes/100 leukocytes in Blood by Automated count 20.5-60.0 [facility] MCH Auto (RBC) [Entitic mass ]on 09-06-2024 MCH (RBC) [Entitic mass] MCH [Entitic mass] by Automated count 26.7-34.0 [facility] MCHC Auto (RBC) [Mass/Vol]on 09-06-2024 MCHC (RBC) [Mass/Vol] MCHC [Mass/volume] by Automated count 29.9-35.2 [facility] MCV Auto (RBC) [Entitic vol] on 09-06-2024 MCV (RBC) [Entitic vol] MCV [Entitic volume] by Automated count 81.0-99.0 [facility] Monocytes Auto (Bld) [#/Vol] on 09-06-2024 Monocytes (Bld) [#/Vol] Automated blood monocyte count Low 0.3-0.8 [facility] Monocytes/100 WBC Auto (Bld) on 09-06-2024 Monocytes/100 WBC (Bld) Automated monocyte % 1.7-12.0 [facility] Neutrophils Auto (Bld) [#/Vo l]on 09-06-2024 Neutrophils (Bld) [#/Vol] Neutrophils [#/volume] in Blood by Automated count 1.4-6.5 [facility] Neutrophils/100 WBC Auto (Bl d)on 09-06-2024 Neutrophils/100 WBC (Bld) Automated neutrophil % 43.0-75.0 [facility] No Panel Informationon 09-06 Eosinophils # (Auto) 0.1 10 3/uL 0.0-0.7 [facility] Immature Granulocyte # (Auto) 0.02 10 3/uL 0.00-0.03 [facility] Platelet mean volume Auto (B ld) [Entitic vol]on 09-06-2024 Platelet mean volume (Bld) [Entitic vol] Platelet mean volume [Entitic volume] in Blood by Automated count 9.5-13.5 [facility] Platelets Auto (Bld) [#/Vol] on 09-06-2024 Platelets (Bld) [#/Vol] Platelets [#/volume] in Blood by Automated count 150-450 [facility] RBC Auto (Bld) [#/Vol]on RBC (Bld) [#/Vol] Erythrocytes [#/volume] in Blood by Automated count Low 4.20-5.40 [facility] Serum or plasma anion gap de terminationon 09-06-2024 Anion gap [Moles/Vol] Serum or plasma anion gap determination [facility] Basophils Auto (Bld) [#/Vol] on 09-05-2024 Basophils (Bld) [#/Vol] Automated basophil count 0.0-0.1 [facility] Basophils/100 WBC Auto (Bld) on 09-05-2024 Basophils/100 WBC (Bld) Automated basophil % 0.2-2.0 [facility] Eosinophils/100 WBC Auto (Bl d)on 09-05-2024 Eosinophils/100 WBC (Bld) Automated eosinophil % 0.9-7.0 [facility] Erythrocyte distribution wid th Auto (RBC) [Ratio]on 09-05-2024 Erythrocyte distribution width (RBC) [Ratio] Erythrocyte distribution width [Ratio] by Automated count 11.0-15.0 [facility] Estimated glomerular filtrat ion rate (GFR) non- Americanon 09-05-2024 GFR/1.73 sq M.predicted among non-blacks MDRD (S/P/Bld) [Vol rate/Area] Estimated glomerular filtration rate (GFR) non- Low >=60 mL/min/1.73m 2 [facility] Globulin Calc (S) [Mass/Vol] on 09-05-2024 Globulin (S) [Mass/Vol] Serum globulin measurement by calculation (mass/volume) [facility] Hematocrit Auto (Bld) [Volum e fraction]on 09-05-2024 Hematocrit (Bld) [Volume fraction] Hematocrit [Volume Fraction] of Blood by Automated count Low 36.0-48.0 [facility] Hemoglobin [Mass/volume] in Bloodon 09-05-2024 Hemoglobin (Bld) [Mass/Vol] Hemoglobin [Mass/volume] in Blood Low 12.0-16.0 [facility] Laboratory - Chemistry and C hemistry - challengeon 09-05-2024 Lactate [Moles/Vol] 0.6 mmol/L 0.4-2.0 [facility] Bilirubin Ql (U) Negative NEGATIVE [facility] Glucose (U) [Mass/Vol] Negative NEGATIVE [facility] Ketones Ql (U) Negative NEGATIVE [facility] pH (U) 7.5 [pH] 5.0-9.0 [facility] Specific gravity (U) [Rel density] 1.015 1.005-1.025 [facility] Urobilinogen Qn (U) 2.0 {Avery'U}/dL Abnormal 0.2-1.0 [facility] Albumin [Mass/Vol] 3.5 g/dL 3.4-5.0 [facility] ALP [Catalytic activity/Vol] 49 U/L 46-116 [facility] ALT [Catalytic activity/Vol] 14 U/L 14-59 [facility] AST [Catalytic activity/Vol] 17 U/L 15-37 [facility] Bilirubin [Mass/Vol] 0.4 mg/dL 0.2-1.0 [facility] Calcium [Mass/Vol] 8.7 mg/dL 8.5-10.1 [facility] Chloride [Moles/Vol] 108 mmol/L High 98-107 [facility] CO2 [Moles/Vol] 28.7 mmol/L 21.0-32.0 [facility] Creatinine [Mass/Vol] 1.03 mg/dL High 0.55-1.02 [facility] GFR/1.73 sq M.predicted MDRD (S/P/Bld) [Vol rate/Area] mL/min/{1.73_m2} >=60 mL/min/1.73m 2 [facility] Glucose [Mass/Vol] 101 mg/dL 74-106 [facility] Potassium [Moles/Vol] 3.3 mmol/L Low 3.5-5.1 [facility] Protein [Mass/Vol] 6.6 g/dL 6.4-8.2 [facility] Sodium [Moles/Vol] 143 mmol/L 136-145 [facility] Urea nitrogen [Mass/Vol] 12.0 mg/dL 7.0-18.0 [facility] Urea nitrogen/Creatinine [Mass ratio] 11.7 mg/mg [facility] Laboratory - Hematology and Cell countson 09-05-2024 ESR (Bld) [Velocity] 6 mm/h <=30 [facility] Immature granulocytes/100 WBC (Bld) 0.5 % 0.0-0.5 [facility] Laboratory - Microbiology an d Antimicrobial susceptibilityon 09-05-2024 S. pyogenes Ag Ql (Unsp spec) Negative [facility] SARS-CoV-2 (COVID-19) RNA MARIO+probe Ql (Unsp spec) Negative NEGATIVE [facility] Comment on above: This test has not [...] inform ationon 09-05-2024 Appearance (U) CLEAR CLEAR [facility] Color (U) YELLOW YELLOW [facility] Laboratory - Urinalysison Leukocyte esterase Test strip Ql (U) Negative NEGATIVE [facility] Nitrite Ql (U) Negative NEGATIVE [facility] Protein Ql (U) Negative NEG/TRACE [facility] Leukocytes [#/volume] correc bill for nucleated erythrocytes in Blood by Automated counon 09-05-2024 WBC corrected for nucl RBC Auto (Bld) [#/Vol] Leukocytes [#/volume] corrected for nucleated erythrocytes in Blood by Automated coun 4.0-11.0 [facility] Lymphocytes Auto (Bld) [#/Vo l]on 09-05-2024 Lymphocytes (Bld) [#/Vol] Lymphocytes [#/volume] in Blood by Automated count 1.2-3.8 [facility] Lymphocytes/100 WBC Auto (Bl d)on 09-05-2024 Lymphocytes/100 WBC (Bld) Lymphocytes/100 leukocytes in Blood by Automated count 20.5-60.0 [facility] MCH Auto (RBC) [Entitic mass ]on 09-05-2024 MCH (RBC) [Entitic mass] MCH [Entitic mass] by Automated count 26.7-34.0 [facility] MCHC Auto (RBC) [Mass/Vol]on 09-05-2024 MCHC (RBC) [Mass/Vol] MCHC [Mass/volume] by Automated count 29.9-35.2 [facility] MCV Auto (RBC) [Entitic vol] on 09-05-2024 MCV (RBC) [Entitic vol] MCV [Entitic volume] by Automated count 81.0-99.0 [facility] Monocytes Auto (Bld) [#/Vol] on 09-05-2024 Monocytes (Bld) [#/Vol] Automated blood monocyte count 0.3-0.8 [facility] Monocytes/100 WBC Auto (Bld) on 09-05-2024 Monocytes/100 WBC (Bld) Automated monocyte % 1.7-12.0 [facility] Neutrophils Auto (Bld) [#/Vo l]on 09-05-2024 Neutrophils (Bld) [#/Vol] Neutrophils [#/volume] in Blood by Automated count 1.4-6.5 [facility] Neutrophils/100 WBC Auto (Bl d)on 09-05-2024 Neutrophils/100 WBC (Bld) Automated neutrophil % 43.0-75.0 [facility] No Panel Informationon 09-05 C-Reactive Protein, Quantitative <0.50 mg/dL <=0.50 [facility] Troponin I High Sensitivity 34.8 pg/mL 4.0-51.3 [facility] Comment on above: CUT-OFF POINTS HAVE BEEN [...] AND CLINICAL INFORMATION. Urine Microscopic Review NO [facility] Urine Occult Blood Negative NEGATIVE [facility] Eosinophils # (Auto) 0.1 10 3/uL 0.0-0.7 [facility] Immature Granulocyte # (Auto) 0.03 10 3/uL 0.00-0.03 [facility] Bedside Influenza Type A Antigen Negative [facility] Comment on above: Negative for Flu A p rotein antigen. Infection due to Flu Acannot be ruled out. Flu A antigen in the sample may bebelow the detection limit of the test. Bedside Influenza Type B Antigen Negative [facility] Comment on above: Negative for Flu B p rotein antigen. Infection due to Flu Bcannot be ruled out. Flu B antigen in the sample may bebelow the detection limit of the test. Platelet mean volume Auto (B ld) [Entitic vol]on 09-05-2024 Platelet mean volume (Bld) [Entitic vol] Platelet mean volume [Entitic volume] in Blood by Automated count 9.5-13.5 [facility] Platelets Auto (Bld) [#/Vol] on 09-05-2024 Platelets (Bld) [#/Vol] Platelets [#/volume] in Blood by Automated count 150-450 [facility] RBC Auto (Bld) [#/Vol]on RBC (Bld) [#/Vol] Erythrocytes [#/volume] in Blood by Automated count Low 4.20-5.40 [facility] Serum or plasma albumin/glob ulin mass ratioon 09-05-2024 Albumin/Globulin [Mass ratio] Serum or plasma albumin/globulin mass ratio [facility] Serum or plasma anion gap de terminationon 09-05-2024 Anion gap [Moles/Vol] Serum or plasma anion gap determination [facility] Strep A Culture Onlyon 09-05 Strep A Culture Only No Group A Beta Streptococcus Isolated 2 Days PERFORMED BY: [facility] [address] [place] [address] PATHOLOGIST [employer] MANAGER LESLEY HONEYCUTT M.D. Normal [facility] Comment on above: Performed By: #### C USTA #### [place] [id number] [facility] Streptococcus pyogenes cultu reOrdered By: Anita Garcia on 09-05-2024 S. pyogenes Org specific cx Ql (Unsp spec) Streptococcus pyogenes culture [facility] S. pyogenes Org specific cx Ql (Unsp spec) Streptococcus pyogenes culture [facility] MM screening mammo BI w/CADo n 06-23-2024 MM screening mammo BI w/CAD [facility] Main [place] [address] [place], [place] [id number] Mammography Report Signed Patient: Gina Pierre MR#: [id number] : 1940 Acct:[id number] Age/Sex: 83 / F ADM Date: 06/23/24 Loc: [place] Room: Type: [facility] Attending Dr: Aamir Dao DO Copies to: [...] Neeraj Wilson M.D.06/23/2024 1:11 PM Dictation Location: [facility] Transcribed By: ISAURA 06/23/24 1311 Dictated By: Neeraj Wilson II, MD 06/23/24 1308 Signed By: 06/23/24 1311 Normal [facility] Basophils Auto (Bld) [#/Vol] on 05-25-2024 Basophils (Bld) [#/Vol] 0.0 10 3/uL 0.0-0.1 [facility] Basophils (Bld) [#/Vol] Automated basophil count 0.0-0.1 [facility] Basophils/100 WBC Auto (Bld) on 05-25-2024 Basophils/100 WBC (Bld) 0.8 % 0.2-2.0 [facility] Basophils/100 WBC (Bld) Automated basophil % 0.2-2.0 [facility] Eosinophils/100 WBC Auto (Bl d)on 05-25-2024 Eosinophils/100 WBC (Bld) 1.9 % 0.9-7.0 [facility] Eosinophils/100 WBC (Bld) Automated eosinophil % 0.9-7.0 [facility] Erythrocyte distribution wid th Auto (RBC) [Ratio]on 05-25-2024 Erythrocyte distribution width (RBC) [Ratio] 13.7 % 11.0-15.0 [facility] Erythrocyte distribution width (RBC) [Ratio] Erythrocyte distribution width [Ratio] by Automated count 11.0-15.0 [facility] Estimated glomerular filtrat ion rate (GFR) non- Americanon 05-25-2024 GFR/1.73 sq M.predicted among non-blacks MDRD (S/P/Bld) [Vol rate/Area] 45 mL/min/{1.73_m2} Low >=60 [facility] GFR/1.73 sq M.predicted among non-blacks MDRD (S/P/Bld) [Vol rate/Area] Estimated glomerular filtration rate (GFR) non- Low >=60 [facility] Globulin Calc (S) [Mass/Vol] on 05-25-2024 Globulin (S) [Mass/Vol] 2.8 g/dL [facility] Globulin (S) [Mass/Vol] Serum globulin measurement by calculation (mass/volume) [facility] Hematocrit Auto (Bld) [Volum e fraction]on 05-25-2024 Hematocrit (Bld) [Volume fraction] 36.1 % 36.0-48.0 [facility] Hematocrit (Bld) [Volume fraction] Hematocrit [Volume Fraction] of Blood by Automated count 36.0-48.0 [facility] Hemoglobin [Mass/volume] in Bloodon 05-25-2024 Hemoglobin (Bld) [Mass/Vol] 11.7 g/dL Low 12.0-16.0 [facility] Hemoglobin (Bld) [Mass/Vol] Hemoglobin [Mass/volume] in Blood Low 12.0-16.0 [facility] Iron binding capacity [Mass/ volume] in Serum or Plasmaon 05-25-2024 Iron binding capacity [Mass/Vol] 410.0 ug/dL 250.0-450.0 [facility] Iron binding capacity [Mass/Vol] Iron binding capacity [Mass/volume] in Serum or Plasma 250.0-450.0 [facility] Iron saturation [Mass Fracti on] in Serum or Plasmaon 05-25-2024 Iron saturation [Mass fraction] 33.2 % [facility] Iron saturation [Mass fraction] Iron saturation [Mass Fraction] in Serum or Plasma [facility] Laboratory - Chemistry and C hemistry - challengeon 05-25-2024 Albumin [Mass/Vol] 3.3 g/dL Low 3.4-5.0 [facility] ALP [Catalytic activity/Vol] 47 U/L 46-116 [facility] ALT [Catalytic activity/Vol] 17 U/L 14-59 [facility] AST [Catalytic activity/Vol] 21 U/L 15-37 [facility] Bilirubin [Mass/Vol] 0.6 mg/dL 0.2-1.0 [facility] Calcium [Mass/Vol] 8.7 mg/dL 8.5-10.1 [facility] Chloride [Moles/Vol] 104 mmol/L 98-107 [facility] CO2 [Moles/Vol] 28.8 mmol/L 21.0-32.0 [facility] Cobalamin (Vitamin B12) [Mass/Vol] 963 pg/mL [id number] [facility] Comment on above: Performed at: [address] [id number] Director: Nicanor Omalley PhD, Phone: [phone] Creatinine [Mass/Vol] 1.15 mg/dL High 0.55-1.02 [facility] Ferritin [Mass/Vol] 44.0 ng/mL 8.0-252.0 [facility] GFR/1.73 sq M.predicted MDRD (S/P/Bld) [Vol rate/Area] 55 mL/min/{1.73_m2} Low >=60 [facility] Glucose [Mass/Vol] 111 mg/dL High 74-106 [facility] Iron [Mass/Vol] 136.0 ug/dL 50.0-170.0 [facility] Potassium [Moles/Vol] 3.7 mmol/L 3.5-5.1 [facility] Protein [Mass/Vol] 6.1 g/dL Low 6.4-8.2 [facility] Sodium [Moles/Vol] 140 mmol/L 136-145 [facility] TSH Qn 2.056 m[IU]/L 0.358-3.740 [facility] Urea nitrogen [Mass/Vol] 20.0 mg/dL High 7.0-18.0 [facility] Urea nitrogen/Creatinine [Mass ratio] 17.4 mg/mg [facility] Laboratory - Hematology and Cell countson 05-25-2024 Immature granulocytes/100 WBC (Bld) 0.8 % High 0.0-0.5 [facility] Leukocytes [#/volume] correc bill for nucleated erythrocytes in Blood by Automated counon 05-25-2024 WBC corrected for nucl RBC Auto (Bld) [#/Vol] 4.8 10 3/uL 4.0-11.0 [facility] WBC corrected for nucl RBC Auto (Bld) [#/Vol] Leukocytes [#/volume] corrected for nucleated erythrocytes in Blood by Automated coun 4.0-11.0 [facility] Lymphocytes Auto (Bld) [#/Vo l]on 05-25-2024 Lymphocytes (Bld) [#/Vol] 1.1 10 3/uL Low 1.2-3.8 [facility] Lymphocytes (Bld) [#/Vol] Lymphocytes [#/volume] in Blood by Automated count Low 1.2-3.8 [facility] Lymphocytes/100 WBC Auto (Bl d)on 05-25-2024 Lymphocytes/100 WBC (Bld) 23.3 % 20.5-60.0 [facility] Lymphocytes/100 WBC (Bld) Lymphocytes/100 leukocytes in Blood by Automated count 20.5-60.0 [facility] MCH Auto (RBC) [Entitic mass ]on 05-25-2024 MCH (RBC) [Entitic mass] 30.9 pg 26.7-34.0 [facility] MCH (RBC) [Entitic mass] MCH [Entitic mass] by Automated count 26.7-34.0 [facility] MCHC Auto (RBC) [Mass/Vol]on 05-25-2024 MCHC (RBC) [Mass/Vol] 32.4 g/dL 29.9-35.2 [facility] MCHC (RBC) [Mass/Vol] MCHC [Mass/volume] by Automated count 29.9-35.2 [facility] MCV Auto (RBC) [Entitic vol] on 05-25-2024 MCV (RBC) [Entitic vol] 95.3 fL 81.0-99.0 [facility] MCV (RBC) [Entitic vol] MCV [Entitic volume] by Automated count 81.0-99.0 [facility] Monocytes Auto (Bld) [#/Vol] on 05-25-2024 Monocytes (Bld) [#/Vol] 0.3 10 3/uL 0.3-0.8 [facility] Monocytes (Bld) [#/Vol] Automated blood monocyte count 0.3-0.8 [facility] Monocytes/100 WBC Auto (Bld) on 05-25-2024 Monocytes/100 WBC (Bld) 7.0 % 1.7-12.0 [facility] Monocytes/100 WBC (Bld) Automated monocyte % 1.7-12.0 [facility] Neutrophils Auto (Bld) [#/Vo l]on 05-25-2024 Neutrophils (Bld) [#/Vol] 3.2 10 3/uL 1.4-6.5 [facility] Neutrophils (Bld) [#/Vol] Neutrophils [#/volume] in Blood by Automated count 1.4-6.5 [facility] Neutrophils/100 WBC Auto (Bl d)on 05-25-2024 Neutrophils/100 WBC (Bld) 66.2 % 43.0-75.0 [facility] Neutrophils/100 WBC (Bld) Automated neutrophil % 43.0-75.0 [facility] No Panel Informationon 05-25 Eosinophils # (Auto) 0.1 10 3/uL 0.0-0.7 [facility] Folate 27.00 ng/mL 8.60-58.90 [facility] Immature Granulocyte # (Auto) 0.04 10 3/uL High 0.00-0.03 [facility] Platelet mean volume Auto (B ld) [Entitic vol]on 05-25-2024 Platelet mean volume (Bld) [Entitic vol] 10.8 fL 9.5-13.5 [facility] Platelet mean volume (Bld) [Entitic vol] Platelet mean volume [Entitic volume] in Blood by Automated count 9.5-13.5 [facility] Platelets Auto (Bld) [#/Vol] on 05-25-2024 Platelets (Bld) [#/Vol] 186 10 3/uL 150-450 [facility] Platelets (Bld) [#/Vol] Platelets [#/volume] in Blood by Automated count 150-450 [facility] RBC Auto (Bld) [#/Vol]on RBC (Bld) [#/Vol] 3.79 10 6/uL Low 4.20-5.40 [facility] RBC (Bld) [#/Vol] Erythrocytes [#/volume] in Blood by Automated count Low 4.20-5.40 [facility] Serum or plasma albumin/glob ulin mass ratioon 05-25-2024 Albumin/Globulin [Mass ratio] 1.2 {ratio} [facility] Albumin/Globulin [Mass ratio] Serum or plasma albumin/globulin mass ratio [facility] Serum or plasma anion gap de terminationon 05-25-2024 Anion gap [Moles/Vol] 10.9 mmol/L [facility] Anion gap [Moles/Vol] Serum or plasma anion gap determination [facility] Basophils Auto (Bld) [#/Vol] on 11-25-2023 Basophils (Bld) [#/Vol] 0.0 10 3/uL 0.0-0.1 [facility] Basophils/100 WBC Auto (Bld) on 11-25-2023 Basophils/100 WBC (Bld) 0.4 % 0.2-2.0 [facility] Eosinophils/100 WBC Auto (Bl d)on 11-25-2023 Eosinophils/100 WBC (Bld) 2.9 % 0.9-7.0 [facility] Erythrocyte distribution wid th Auto (RBC) [Ratio]on 11-25-2023 Erythrocyte distribution width (RBC) [Ratio] 13.2 % 11.0-15.0 [facility] Hematocrit Auto (Bld) [Volum e fraction]on 11-25-2023 Hematocrit (Bld) [Volume fraction] 36.7 % 36.0-48.0 [facility] Hemoglobin [Mass/volume] in Bloodon 11-25-2023 Hemoglobin (Bld) [Mass/Vol] 11.5 g/dL 12.0-16.0 [facility] Laboratory - Chemistry and C hemistry - challengeon 11-25-2023 Ferritin [Mass/Vol] 27.0 ng/mL 8.0-252.0 [facility] Laboratory - Hematology and Cell countson 11-25-2023 Immature granulocytes/100 WBC (Bld) 0.4 % 0.0-0.5 [facility] Leukocytes [#/volume] correc bill for nucleated erythrocytes in Blood by Automated counon 11-25-2023 WBC corrected for nucl RBC Auto (Bld) [#/Vol] 4.8 10 3/uL 4.0-11.0 [facility] Lymphocytes Auto (Bld) [#/Vo l]on 11-25-2023 Lymphocytes (Bld) [#/Vol] 1.3 10 3/uL 1.2-3.8 [facility] Lymphocytes/100 WBC Auto (Bl d)on 11-25-2023 Lymphocytes/100 WBC (Bld) 27.7 % 20.5-60.0 [facility] MCH Auto (RBC) [Entitic mass ]on 11-25-2023 MCH (RBC) [Entitic mass] 29.9 pg 26.7-34.0 [facility] MCHC Auto (RBC) [Mass/Vol]on 11-25-2023 MCHC (RBC) [Mass/Vol] 31.3 g/dL 29.9-35.2 [facility] MCV Auto (RBC) [Entitic vol] on 11-25-2023 MCV (RBC) [Entitic vol] 95.3 fL 81.0-99.0 [facility] Monocytes Auto (Bld) [#/Vol] on 11-25-2023 Monocytes (Bld) [#/Vol] 0.4 10 3/uL 0.3-0.8 [facility] Monocytes/100 WBC Auto (Bld) on 11-25-2023 Monocytes/100 WBC (Bld) 7.8 % 1.7-12.0 [facility] Neutrophils Auto (Bld) [#/Vo l]on 11-25-2023 Neutrophils (Bld) [#/Vol] 2.9 10 3/uL 1.4-6.5 [facility] Neutrophils/100 WBC Auto (Bl d)on 11-25-2023 Neutrophils/100 WBC (Bld) 60.8 % 43.0-75.0 [facility] No Panel Informationon 11-24 Eosinophils # (Auto) 0.1 10 3/uL 0.0-0.7 [facility] Folate 24.20 ng/mL 8.60-58.90 [facility] Immature Granulocyte # (Auto) 0.02 10 3/uL 0.00-0.03 [facility] Vitamin B12 Level >6000.0 pg/mL 193.0-986.0 [facility] Platelet mean volume Auto (B ld) [Entitic vol]on 11-25-2023 Platelet mean volume (Bld) [Entitic vol] 10.5 fL 9.5-13.5 [facility] Platelets Auto (Bld) [#/Vol] on 11-25-2023 Platelets (Bld) [#/Vol] 187 10 3/uL 150-450 [facility] RBC Auto (Bld) [#/Vol]on RBC (Bld) [#/Vol] 3.85 10 6/uL 4.20-5.40 [facility] Quick Fluon 08-28-2023 FLUAV Ab CF (S) [Titer] Negative [employer] [facility] [employer] Other FLUBV Ab CF (S) [Titer] Negative [employer] [facility] [employer] Other CBC AUTO DIFFon 02-03-2023 BASO # 0.0 103/ul Normal 0.0-0.1 [facility] Comment on above: Performed By: #### L IVER, BMP, LIPA, EDSON #### [facility] [address] [place] [address] Dr. Julia Velasquez Basophils/100 WBC (Bld) 0.4 % Normal 0.2-2.0 [facility] Comment on above: Performed By: #### L IVER, BMP, LIPA, EDSON #### [facility] [address] [address] [address] Julia Velasquez EO # 0.3 103/ul Normal 0.0-0.7 [facility] Comment on above: Performed By: #### L IVER, BMP, LIPA, EDSON #### [facility] [address] [address] [address] Julia Velasquez Eosinophils/100 WBC (Bld) 5.5 % Normal 0.9-7.0 [facility] Comment on above: Performed By: #### L IVER, BMP, LIPA, EDSON #### [facility] [address] [place] [address] Dr. Julia Velasquez Erythrocyte distribution width (RBC) [Ratio] 14.1 % Normal 11.0-15.0 [facility] Comment on above: Performed By: #### L IVER, BMP, LIPA, EDSON #### [facility] [address] [place] [address] Dr. Julia Velasquez Hematocrit (Bld) [Volume fraction] 36.4 % Normal 36.0-48.0 [facility] Comment on above: Performed By: #### L IVER, BMP, LIPA, EDSON #### [facility] [address] [place] [address] Dr. Julia Velasquez Hemoglobin (Bld) [Mass/Vol] 11.4 g/dL Critically low 12.0-16.0 [facility] Comment on above: Performed By: #### L IVER, BMP, LIPA, EDSON #### [facility] [address] [place] [address] Dr. Julia Velasquez IG # 0.02 10e3/ul Normal 0.00-0.03 [facility] Comment on above: Performed By: #### L IVER, BMP, LIPA, EDSON #### [facility] [address] [place] [address] Dr. Julia Velasquez IG % 0.4 % Normal 0.0-0.5 [facility] Comment on above: Performed By: #### L IVER, BMP, LIPA, EDSON #### [facility] [address] [place] [address] Dr. Julia Velasquez LYMPH # 1.4 103/ul Normal 1.2-3.8 [facility] Comment on above: Performed By: #### L IVER, BMP, LIPA, EDSON #### [facility] [address] [place] [address] Dr. Julia Velasquez Lymphocytes/100 WBC (Bld) 28.4 % Normal 20.5-60.0 [facility] Comment on above: Performed By: #### L IVER, BMP, LIPA, EDSON #### [facility] [address] [place] [address] Dr. Julia Velasquez MANUAL DIFF REQ NO Normal [facility] Comment on above: Performed By: #### L IVER, BMP, LIPA, EDSON #### [facility] [address] [place] [address] Dr. Julia Velasquez MCH (RBC) [Entitic mass] 30.0 pg Normal 26.7-34.0 [facility] Comment on above: Performed By: #### L IVER, BMP, LIPA, EDSON #### [facility] [address] [place] [address] Dr. Julia Velasquez MCHC (RBC) [Mass/Vol] 31.3 g/dL Normal 29.9-35.2 [facility] Comment on above: Performed By: #### L IVER, BMP, LIPA, EDSON #### [facility] [address] [place] [address] Dr. Julia Velasquez MCV (RBC) [Entitic vol] 95.8 fL Normal 81.0-99.0 [facility] Comment on above: Performed By: #### L IVER, BMP, LIPA, EDSON #### [facility] [address] [place] [address] Dr. Julia Velasquez MONO # 0.4 103/ul Normal 0.3-0.8 [facility] Comment on above: Performed By: #### L IVER, BMP, LIPA, EDSON #### [facility] [address] [place] [address] Dr. Julia Velasquez Monocytes/100 WBC (Bld) 7.8 % Normal 1.7-12.0 [facility] Comment on above: Performed By: #### L IVER, BMP, LIPA, EDSON #### [facility] [address] [place] [address] Dr. Julia Velasquez NEUT # 2.8 103/ul Normal 1.4-6.5 [facility] Comment on above: Performed By: #### L IVER, BMP, LIPA, EDSON #### [facility] [address] [place] [address] Dr. Julia Velasquez Neutrophils/100 WBC (Bld) 57.5 % Normal 43.0-75.0 [facility] Comment on above: Performed By: #### L IVER, BMP, LIPA, EDSON #### [facility] [address] [place] [address] Dr. Julia Velasquez Platelet mean volume (Bld) [Entitic vol] 10.6 fL Normal 9.5-13.5 [facility] Comment on above: Performed By: #### L IVER, BMP, LIPA, EDSON #### [facility] [address] [place] [address] Dr. Julia Velasquez PLT 212 103/ul Normal 150-450 [facility] Comment on above: Performed By: #### L IVER, BMP, LIPA, EDSON #### [facility] [address] [place] [address] Dr. Julia Velasquez RBC 3.80 106/ul Critically low 4.20-5.40 [facility] Comment on above: Performed By: #### L IVER, BMP, LIPA, EDSON #### [facility] [address] [place] [address] Dr. Julia Velasquez WBC 4.9 103/ul Normal 4.0-11.0 [facility] Comment on above: Performed By: #### L IVER, BMP, LIPA, EDSON #### [facility] [address] [place] [address] Dr. Julia Velasquez FERRITINon 02-03-2023 Ferritin [Mass/Vol] 63.0 ng/mL Normal 8.0-252.0 [facility] Comment on above: Performed By: #### L IVER, BMP, LIPA, EDSON #### [facility] [address] [place] [address] Dr. Julia Velasquez IRON AND TIBCon 02-03-2023 % SATURATION 25.5 % Normal [facility] Comment on above: Performed By: #### L IVER, BMP, LIPA, EDSON #### [facility] [address] [place] [address] Dr. Julia Velasquez Iron [Mass/Vol] 100.0 ug/dL Normal 50.0-170.0 [facility] Comment on above: Performed By: #### L IVER, BMP, LIPA, EDSON #### [facility] [address] [place] [address] Dr. Julia Velasquez TIBC DIRECT 392.0 ug/dL Normal 250.0-450.[address] [facility] Comment on above: Performed By: #### L NANCY MONDRAGON LIPA, AMY #### [facility] [address] [address] [address] Julia Velasquez PROF CHEM 8 (BAS METB)on Anion gap [Moles/Vol] 13.0 mmol/L Normal [facility] Comment on above: Performed By: #### B MP #### [facility] [address] [address] [address] Julia Velasquez Calcium [Mass/Vol] 8.9 mg/dL Normal 8.5-10.1 [facility] Comment on above: Performed By: #### B MP #### [facility] [address] [place] [address] Dr. Julia Velasquez Chloride [Moles/Vol] 106 mmol/L Normal 98-107 [facility] Comment on above: Performed By: #### B MP #### [facility] [address] [address] [address] Julia Velasquez CO2 [Moles/Vol] 27.7 mmol/L Normal 21.0-32.0 [facility] Comment on above: Performed By: #### B MP #### [facility] [address] [address] [address] Julia Velasquez Creatinine [Mass/Vol] 1.24 mg/dL Critically high 0.55-1.02 [facility] Comment on above: Performed By: #### B MP #### [facility] [address] [address] [address] Julia Velasquez EGFR-AF SWEDISH 50 mL/min/1.73m2 Critically low >=60 [facility] Comment on above: Performed By: #### B MP #### [facility] [address] [address] [address] Julia Velasquez EGFR-NON AF SWEDISH 42 mL/min/1.73m2 Critically low >=60 [facility] Comment on above: Performed By: #### B MP #### [facility] [address] [address] [address] Julia Velasquez Glucose [Mass/Vol] 99 mg/dL Normal 74-106 [facility] Comment on above: Performed By: #### B MP #### [facility] [address] [address] [address] Julia Velasquez Potassium [Moles/Vol] 3.7 mmol/L Normal 3.5-5.1 [facility] Comment on above: Performed By: #### B MP #### [facility] [address] [address] [address] Julia Velasquez Sodium [Moles/Vol] 143 mmol/L Normal 136-145 [facility] Comment on above: Performed By: #### B MP #### [facility] [address] [place] [address] Dr. Julia Velasquez Urea nitrogen [Mass/Vol] 12.0 mg/dL Normal 7.0-18.0 [facility] Comment on above: Performed By: #### B MP #### [facility] [address] [place] [address] Dr. Julia Velasquez Urea nitrogen/Creatinine [Mass ratio] 9.7 mg/mg Normal [facility] Comment on above: Performed By: #### B MP #### [facility] [address] [place] [address] Dr. Julia Velasquez UA RANDOM W/MICROSCOPICon BACTERIA TRACE Abnormal NONE SEEN [facility] Comment on above: Performed By: #### L IVER BMP, LIPA, EDSON #### [facility] [address] [place] [address] Dr. Julia Velasquez Bilirubin Ql (U) Negative Normal NEGATIVE [facility] Comment on above: Performed By: #### L IVER BMP, LIPA, EDSON #### [facility] [address] [place] [address] Dr. Julia Velasquez CAST NONE SEEN Normal NONE SEEN [facility] Comment on above: Performed By: #### L IVER, BMP, LIPA, EDSON #### [facility] [address] [place] [address] Dr. Julia Velasquez Clarity (U) CLEAR Normal CLEAR [facility] Comment on above: Performed By: #### L IVER, BMP, LIPA, EDSON #### [facility] [address] [address] [address] Julia Velasquez Color (U) LT. YELLOW Normal YELLOW [facility] Comment on above: Performed By: #### L IVER, BMP, LIPA, EDSON #### [facility] [address] [address] [address] Julia Velasquez Crystals LM Nom (Urine sed) NONE SEEN Normal NONE SEEN [facility] Comment on above: Performed By: #### L IVER, BMP, LIPA, EDSON #### [facility] [address] [place] [address] Dr. Julia Velasquez Epithelial cells LM Ql (Urine sed) MODERATE Abnormal NONE SEEN /RARE [facility] Comment on above: Performed By: #### L IVER, BMP, LIPA, EDSON #### [facility] [address] [place] [address] Dr. Julia Velasquez Glucose Ql (U) Negative Normal NEGATIVE [facility] Comment on above: Performed By: #### L IVER, BMP, LIPA, EDSON #### [facility] [address] [place] [address] Dr. Julia Velasquez Hemoglobin Ql (U) Negative Normal NEGATIVE [facility] Comment on above: Performed By: #### L IVER, BMP, LIPA, EDSON #### [facility] [address] [address] [address] Julia Velasquez Ketones Ql (U) Negative Normal NEGATIVE [facility] Comment on above: Performed By: #### L IVER, BMP, LIPA, EDSON #### [facility] [address] [place] [address] Dr. Julia Velasquez LEUKOCYTES Negative Normal NEGATIVE [facility] Comment on above: Performed By: #### L IVER, BMP, LIPA, EDSON #### [facility] [address] [address] [address] Julia Velasquez MUCOUS NONE SEEN Normal NONE SEEN [facility] Comment on above: Performed By: #### L IVER, BMP, LIPA, EDSON #### [facility] [address] [address] [address] Julia Velasquez Nitrite Ql (U) Negative Normal NEGATIVE [facility] Comment on above: Performed By: #### L IVER, BMP, LIPA, EDSON #### [facility] [address] [address] [address] Julia Velasquez pH (U) 7.5 [pH] Normal 5-9 [facility] Comment on above: Performed By: #### L IVER, BMP, LIPA, EDSON #### [facility] [address] [place] [address] Dr. Julia Velasquez RBC 0-2 Normal 0-2 [facility] Comment on above: Performed By: #### L IVER, BMP, LIPA, EDSON #### [facility] [address] [place] [address] Dr. Julia Velasquez SPEC GRAVITY 1.010 Normal 1.005-<=1.025 [facility] Comment on above: Performed By: #### L IVER, BMP, LIPA, EDSON #### [facility] [address] [place] [address] Dr. Julia Velasquez UA PROTEIN Negative Normal NEGATIVE/ TRACE [facility] Comment on above: Performed By: #### L IVER, BMP, LIPA, EDSON #### [facility] [address] [address] [address] Julia Velasquez Urobilinogen Qn (U) 2.0 {Avery'U}/dL Abnormal 0.2 - 1. 0 [facility] Comment on above: Performed By: #### L IVER, BMP, LIPA, EDSON #### [facility] [address] [place] [address] Dr. Julia Velasquez WBC NONE SEEN Normal NONE SEEN [facility] Comment on above: Performed By: #### L IVER, BMP, LIPA, EDSON #### [facility] [address] [place] [address] Dr. Julia Velasquez VIT B12 AND FOLATEon 023 Cobalamin (Vitamin B12) [Mass/Vol] 199.0 pg/mL Normal 193.0-986.0 [facility] Comment on above: Performed By: #### L NANCY MONDRAGON LIPA, AMY #### [facility] [address] [address] [address] Julia Velasquez FOLATE 27.10 ng/mL Normal 8.60-58.90 [facility] Comment on above: Performed By: #### L NANCY MONDRAGON LIPA, AMY #### [facility] [address] [address] [address] Julia Velasquez XR CHEST 2 Von [...] NANDO CARLSON Date: 2023-02-03 14:28 Normal [facility] CBC AUTO DIFFon 01-07-2023 BASO # 0.0 103/ul Normal 0.0-0.1 [facility] Comment on above: Performed By: #### L NANCY MONDRAGON LIPA, EDSON #### [facility] [address] [address] [address] Julia Velasquez Basophils/100 WBC (Bld) 0.6 % Normal 0.2-2.0 [facility] Comment on above: Performed By: #### L NANCY MONDRAGON LIPA, EDSON #### [facility] [address] [address] [address] Julia Velasquez EO # 0.1 103/ul Normal 0.0-0.7 [facility] Comment on above: Performed By: #### L IVER, BMP, LIPA, EDSON #### [facility] [address] [place] [address] Dr. Julia Velasquez Eosinophils/100 WBC (Bld) 3.3 % Normal 0.9-7.0 [facility] Comment on above: Performed By: #### L IVER, BMP, LIPA, EDSON #### [facility] [address] [place] [address] Dr. Julia Velasquez Erythrocyte distribution width (RBC) [Ratio] 16.1 % Critically high 11.0-15.0 [facility] Comment on above: Performed By: #### L IVER, BMP, LIPA, EDSON #### [facility] [address] [place] [address] Dr. Julia Velasquez Hematocrit (Bld) [Volume fraction] 34.9 % Critically low 36.0-48.0 [facility] Comment on above: Performed By: #### L IVER, BMP, LIPA, EDSON #### [facility] [address] [place] [address] Dr. Julia Velasquez Hemoglobin (Bld) [Mass/Vol] 11.1 g/dL Critically low 12.0-16.0 [facility] Comment on above: Performed By: #### L IVER, BMP, LIPA, EDSON #### [facility] [address] [place] [address] Dr. Julia Velasquez IG # 0.05 10e3/ul Critically high 0.00-0.03 [facility] Comment on above: Performed By: #### L IVER, BMP, LIPA, EDSON #### [facility] [address] [place] [address] Dr. Julia Velasquez IG % 1.4 % Critically high 0.0-0.5 [facility] Comment on above: Performed By: #### L IVER, BMP, LIPA, EDSON #### [facility] [address] [place] [address] Dr. Julia Velasquez LYMPH # 1.1 103/ul Critically low 1.2-3.8 [facility] Comment on above: Performed By: #### L IVER, BMP, LIPA, EDSON #### [facility] [address] [place] [address] Dr. Julia Velasquez Lymphocytes/100 WBC (Bld) 31.6 % Normal 20.5-60.0 [facility] Comment on above: Performed By: #### L IVER, BMP, LIPA, EDSON #### [facility] [address] [place] [address] Dr. Julia Velasquez MANUAL DIFF REQ NO Normal [facility] Comment on above: Performed By: #### L IVER, BMP, LIPA, EDSON #### [facility] [address] [place] [address] Dr. Julia Velasquez MCH (RBC) [Entitic mass] 30.4 pg Normal 26.7-34.0 [facility] Comment on above: Performed By: #### L IVER, BMP, LIPA, EDSON #### [facility] [address] [place] [address] Dr. Julia Velasquez MCHC (RBC) [Mass/Vol] 31.8 g/dL Normal 29.9-35.2 [facility] Comment on above: Performed By: #### L IVER, BMP, LIPA, EDSON #### [facility] [address] [place] [address] Dr. Julia Velasquez MCV (RBC) [Entitic vol] 95.6 fL Normal 81.0-99.0 [facility] Comment on above: Performed By: #### L IVER, BMP, LIPA, EDSON #### [facility] [address] [place] [address] Dr. Julia Velasquez MONO # 0.2 103/ul Critically low 0.3-0.8 [facility] Comment on above: Performed By: #### L IVER, BMP, LIPA, EDSON #### [facility] [address] [place] [address] Dr. Julia Velasquez Monocytes/100 WBC (Bld) 6.1 % Normal 1.7-12.0 [facility] Comment on above: Performed By: #### L IVER, BMP, LIPA, EDSON #### [facility] [address] [place] [address] Dr. Julia Velasquez NEUT # 2.1 103/ul Normal 1.4-6.5 [facility] Comment on above: Performed By: #### L IVER, BMP, LIPA, EDSON #### [facility] [address] [place] [address] Dr. Julia Velasquez Neutrophils/100 WBC (Bld) 57.0 % Normal 43.0-75.0 [facility] Comment on above: Performed By: #### L IVER, BMP, LIPA, EDSON #### [facility] [address] [place] [address] Dr. Julia Velasquez Platelet mean volume (Bld) [Entitic vol] 10.4 fL Normal 9.5-13.5 [facility] Comment on above: Performed By: #### L IVER, BMP, LIPA, EDSON #### [facility] [address] [place] [address] Dr. Julia Velasquez PLT 167 103/ul Normal 150-450 [facility] Comment on above: Performed By: #### L IVER, BMP, LIPA, EDSON #### [facility] [address] [place] [address] Dr. Julia Velasquez RBC 3.65 106/ul Critically low 4.20-5.40 [facility] Comment on above: Performed By: #### L IVER, BMP, LIPA, EDSON #### [facility] [address] [place] [address] Dr. Julia Velasquez WBC 3.6 103/ul Critically low 4.0-11.0 [facility] Comment on above: Performed By: #### L IVER, BMP, LIPA, EDSON #### [facility] [address] [place] [address] Dr. Julia Velasquez FERRITINon 01-07-2023 Ferritin [Mass/Vol] 148.0 ng/mL Normal 8.0-252.0 [facility] Comment on above: Performed By: #### L IVER, BMP, LIPA, EDSON #### [facility] [address] [place] [address] Dr. Julia Velasquez IRON AND TIBCon 01-07-2023 % SATURATION 27.1 % Normal [facility] Comment on above: Performed By: #### L IVER, BMP, LIPA, EDSON #### [facility] [address] [place] [address] Dr. Julia Velasquez Iron [Mass/Vol] 96.0 ug/dL Normal 50.0-170.0 [facility] Comment on above: Performed By: #### L IVER, BMP, LIPA, EDSON #### [facility] [address] [place] [address] Dr. Julia Velasquez TIBC DIRECT 354.0 ug/dL Normal 250.0-450.0 [facility] Comment on above: Performed By: #### L IVER, BMP, LIPA, EDSON #### [facility] [address] [place] [address] Dr. Julia Velasquez PROF CHEM 8 (BAS METB)on Anion gap [Moles/Vol] 11.8 mmol/L Normal [facility] Comment on above: Performed By: #### L IVER, BMP, LIPA, EDSON #### [facility] [facility] [address] [place] [address] Dr. Julia Velasquez Calcium [Mass/Vol] 8.3 mg/dL Critically low 8.5-10.1 Th [facility] Comment on above: Performed By: #### L IVER, BMP, LIPA, EDSON #### [facility] [address] [place] [address] Dr. Julia Velasquez Chloride [Moles/Vol] 108 mmol/L Critically high 98-107 [facility] Comment on above: Performed By: #### L IVER, BMP, LIPA, EDSON #### [facility] [address] [place] [address] Dr. Julia Velasquez CO2 [Moles/Vol] 27.8 mmol/L Normal 21.0-32.0 [facility] Comment on above: Performed By: #### L IVER, BMP, LIPA, EDSON #### [facility] [address] [address] [address] Julia Velasquez Creatinine [Mass/Vol] 1.00 mg/dL Normal 0.55-1.02 [facility] Comment on above: Performed By: #### L IVER, BMP, LIPA, EDSON #### [facility] [address] [place] [address] Dr. Julia Velasquez EGFR-AF SWEDISH >60 Normal >=[address] [facility] Comment on above: Performed By: #### L IVER, BMP, LIPA, EDSON #### [facility] [address] [place] [address] Dr. Julia Velasquez EGFR-NON AF SWEDISH 53 mL/min/1.73m2 Critically low >=60 [facility] Comment on above: Performed By: #### L IVER, BMP, LIPA, EDSON #### [facility] [address] [place] [address] Dr. Julia Velasquez Glucose [Mass/Vol] 92 mg/dL Normal 74-106 [facility] Comment on above: Performed By: #### L IVER, BMP, LIPA, EDSON #### [facility] [address] [place] [address] Dr. Julia Velasquez Potassium [Moles/Vol] 3.6 mmol/L Normal 3.5-5.1 [facility] Comment on above: Performed By: #### L IVER, BMP, LIPA, EDSON #### [facility] [address] [place] [address] Dr. Julia Velasquez Sodium [Moles/Vol] 144 mmol/L Normal 136-145 [facility] Comment on above: Performed By: #### L IVER, BMP, LIPA, EDSON #### [facility] [address] [place] [address] Dr. Julia Velasquez Urea nitrogen [Mass/Vol] 8.0 mg/dL Normal 7.0-18.0 [facility] Comment on above: Performed By: #### L IVER, BMP, LIPA, EDSON #### [facility] [address] [address] [address] Julia Velasquez Urea nitrogen/Creatinine [Mass ratio] 8.0 mg/mg Normal [facility] Comment on above: Performed By: #### L NANCY MONDRAGON LIPA, EDSON #### [facility] [address] [address] [address] Julia Velasquez RETICULOCYTEon 01-07-2023 RETIC 4.40 % Critically high 0.60-3.10 [facility] Comment on above: Performed By: #### L IVERNANCY, LIPA, EDSON #### [facility] [address] [address] [address] Julia Velasquez VIT B12 AND FOLATEon 023 Cobalamin (Vitamin B12) [Mass/Vol] 322.0 pg/mL Normal 193.0-986.0 [facility] Comment on above: Performed By: #### L NANCY MONDRAGON LIPA, EDSON #### [facility] [address] [address] [address] Julia Velasquez FOLATE 6.10 ng/mL Critically low 8.60-58.90 [facility] Comment on above: Performed By: #### L NANCY MONDRAGON LIPA, EDSON #### [facility] [address] [place] [address] Dr. Julia Velasquez XR CHEST 2 Von [...] NANDO CARLSON Date: 2023-01-07 11:59 Normal [facility] CBC W MANUAL DIFFon 12-15-19 23 ATYPICAL LYMPH # Normal [facility] Comment on above: Performed By: #### L IVER, BMP, LIPA, EDSON #### [facility] [address] [place] [address] Dr. Julia Velasquez ATYPICAL LYMPH % Normal [facility] Comment on above: Performed By: #### L IVER, BMP, LIPA, EDSON #### [facility] [address] [place] [address] Dr. Julia Velasquez BAND # 1.0 103/ul Critically high 0.0-0.3 [facility] Comment on above: Performed By: #### L IVER, BMP, LIPA, EDSON #### [facility] [address] [place] [address] Dr. Julia Velasquez BAND % 9 % Critically high 0-5 [facility] Comment on above: Performed By: #### L IVER, BMP, LIPA, EDSON #### [facility] [address] [place] [address] Dr. Julia Velasquez BASOM # 0.00 103/ul Normal 0.00-0.10 [facility] Comment on above: Performed By: #### L IVER, BMP, LIPA, EDSON #### [facility] [address] [place] [address] Dr. Julia Velasquez BASOM % 0.0 % Critically low 0.2-2.0 [facility] Comment on above: Performed By: #### L IVER, BMP, LIPA, EDSON #### [facility] [address] [place] [address] Dr. Julia Velasquez BLAST # Normal [facility] Comment on above: Performed By: #### L IVER, BMP, LIPA, EDSON #### [facility] [address] [place] [address] Dr. Julia Velasquez BLAST % Normal [facility] Comment on above: Performed By: #### L IVER, BMP, LIPA, EDSON #### [facility] [address] [place] [address] Dr. Julia Velasquez CORRECTED WBC Normal 4.0-11.[address] [facility] Comment on above: Performed By: #### L IVER, BMP, LIPA, EDSON #### [facility] [address] [place] [address] Dr. Julia Velasquez EOS # 0.22 103/ul Normal 0.00-0.70 [facility] Comment on above: Performed By: #### L IVER, BMP, LIPA, EDSON #### [facility] [address] [place] [address] Dr. Julia Velasquze EOS% 2.0 % Normal 0.9-7.0 [facility] Comment on above: Performed By: #### L IVER, BMP, LIPA, EDSON #### [facility] [address] [place] [address] Dr. Julia Velasquez HCT 27.3 % Critically low 36.0-48.0 [facility] Comment on above: Performed By: #### L IVER, BMP, LIPA, EDSON #### [facility] [address] [place] [address] Dr. Julia Velasquez HGB 8.5 g/dl Critically low 12.0-16.0 [facility] Comment on above: Performed By: #### L IVER, BMP, LIPA, EDSON #### [facility] [address] [place] [address] Dr. Julia Velasquez HYPOCHROMASIA SLIGHT Normal [facility] Comment on above: Performed By: #### L IVER, BMP, LIPA, EDSON #### [facility] [address] [place] [address] Dr. Julia Velasquez LYMPHM # 0.99 103/ul Critically low 1.20-3.80 [facility] Comment on above: Performed By: #### L IVER, BMP, LIPA, EDSON #### [facility] [address] [place] [address] Dr. Julia Velasquez LYMPHM% 9.0 % Critically low 20.5-60.0 [facility] Comment on above: Performed By: #### L IVER, BMP, LIPA, EDSON #### [facility] [address] [address] [address] Julia Velasquez MCH 28.3 pg Normal 26.7-34.0 [facility] Comment on above: Performed By: #### L IVER, BMP, LIPA, EDSON #### [facility] [address] [address] [address] Julia Velasquez MCHC 31.1 g/dl Normal 29.9-35.2 [facility] Comment on above: Performed By: #### L IVER, BMP, LIPA, EDSON #### [facility] [address] [address] [address] Julia Velaqsuez MCV 91.0 fL Normal 81.0-99.0 [facility] Comment on above: Performed By: #### L IVER, BMP, LIPA, EDSON #### [facility] [address] [place] [address] Dr. Julia Velasquez METAMYELOCYTE # Normal [facility] Comment on above: Performed By: #### L IVER, BMP, LIPA, EDSON #### [facility] [address] [place] [address] Dr. Julia Velasquez METAMYELOCYTE % Normal [facility] Comment on above: Performed By: #### L IVER, BMP, LIPA, EDSON #### [facility] [address] [address] [address] Julia Velasquez MONOM# 0.22 103/ul Critically low 0.30-0.80 [facility] Comment on above: Performed By: #### L IVER, BMP, LIPA, EDSON #### [facility] [address] [place] [address] Dr. Julia Velasquez MONOM% 2.0 % Normal 1.7-12.0 [facility] Comment on above: Performed By: #### L IVER, BMP, LIPA, EDSON #### [facility] [address] [address] [address] Julia Velasquez MPV 10.9 fL Normal 9.5-13.5 [facility] Comment on above: Performed By: #### L IVER, BMP, LIPA, EDSON #### [facility] [address] [address] [address] Julia Velasquez MYELOCYTE # Normal [facility] Comment on above: Performed By: #### L IVER, BMP, LIPA, EDSON #### [facility] [address] [address] [address] Julia Velasquez MYELOCYTE % Normal [facility] Comment on above: Performed By: #### L IVER, BMP, LIPA, EDSON #### [facility] [address] [address] [address] Julia Velasquez NRBC Normal [facility] Comment on above: Performed By: #### L IVER, BMP, LIPA, EDSON #### [facility] [address] [place] [address] Dr. Julia Velasquez PLT 240 103/ul Normal 150-450 [facility] Comment on above: Performed By: #### L IVER, BMP, LIPA, EDSON #### [facility] [address] [place] [address] Dr. Julia Velasquez RBC 3.00 106/ul Critically low 4.20-5.40 [facility] Comment on above: Performed By: #### L IVER, BMP, LIPA, EDSON #### [facility] [address] [place] [address] Dr. Julia Velasquez RDW 17.2 % Critically high 11.0-15.0 [facility] Comment on above: Performed By: #### L IVER, BMP, LIPA, EDSON #### [facility] [address] [place] [address] Dr. Julia Velasquez SEG # 8.58 103/ul Critically high 1.40-6.50 [facility] Comment on above: Performed By: #### L IVER, BMP, LIPA, EDSON #### [facility] [address] [place] [address] Dr. Julia Velasquez SEG % 78.0 % Critically high 43.0-75.0 [facility] Comment on above: Performed By: #### L IVER, BMP, LIPA, EDSON #### [facility] [address] [address] [address] Julia Velasquez WBC 11.0 103/ul Normal 4.0-11.0 [facility] Comment on above: Performed By: #### L NANCY MONDRAGON, LIPA, EDSON #### [facility] [address] [place] [address] Dr. Julia Velasquez PROF 14(COMP METB)on 023 Albumin [Mass/Vol] 1.3 g/dL Critically low 3.4-5.0 Th e [facility] Comment on above: Performed By: #### C MP #### [facility] [address] [place] [address] Dr. Julia Velasquez Albumin/Globulin [Mass ratio] 0.3 {ratio} Normal [facility] Comment on above: Performed By: #### C MP #### [facility] [address] [place] [address] Dr. Julia Velasquez ALP [Catalytic activity/Vol] 93 U/L Normal 46-116 [facility] Comment on above: Performed By: #### C MP #### [facility] [address] [place] [address] Dr. Julia Velasquez ALT [Catalytic activity/Vol] 30 U/L Normal 14-59 [facility] Comment on above: Performed By: #### C MP #### [facility] [address] [place] [address] Dr. Julia Velasquez Anion gap [Moles/Vol] 13.4 mmol/L Normal [facility] Comment on above: Performed By: #### C MP #### [facility] [address] [place] [address] Dr. Julia Velasquez AST [Catalytic activity/Vol] 71 U/L Critically high 15-37 [facility] Comment on above: Performed By: #### C MP #### [facility] [address] [place] [address] Dr. Julia Velasquez Bilirubin [Mass/Vol] 1.2 mg/dL Critically high 0.2-1.0 [facility] Comment on above: Performed By: #### C MP #### [facility] [address] [address] [address] Julia Velasquez Calcium [Mass/Vol] 8.1 mg/dL Critically low 8.5-10.1 Th [facility] Comment on above: Performed By: #### C MP #### [facility] [address] [address] [address] Julia Velasquez Chloride [Moles/Vol] 116 mmol/L Critically high 98-107 [facility] Comment on above: Performed By: #### C MP #### [facility] [address] [address] [address] Julia Velasquez CO2 [Moles/Vol] 21.3 mmol/L Normal 21.0-32.0 [facility] Comment on above: Performed By: #### C MP #### [facility] [address] [address] [address] Julia Velasquez Creatinine [Mass/Vol] 1.10 mg/dL Critically high 0.55-1.02 [facility] Comment on above: Performed By: #### C MP #### [facility] [address] [address] [address] Julia Velasquez EGFR-AF SWEDISH 58 mL/min/1.73m2 Critically low >=60 [facility] Comment on above: Performed By: #### C MP #### [facility] [address] [address] [address] Julia Velasquez EGFR-NON AF SWEDISH 48 mL/min/1.73m2 Critically low >=60 [facility] Comment on above: Performed By: #### C MP #### [facility] [address] [address] [address] Julia Velasquez Globulin (S) [Mass/Vol] 3.8 g/dL Normal [facility] Comment on above: Performed By: #### C MP #### [facility] [address] [address] [address] Julia Velasquez Glucose [Mass/Vol] 110 mg/dL Critically high 74-[address] [facility] Comment on above: Performed By: #### C MP #### [facility] [address] [address] [address] Julia Velasquez Potassium [Moles/Vol] 4.7 mmol/L Normal 3.5-5.1 [facility] Comment on above: Performed By: #### C MP #### [facility] [address] [address] [address] Julia Velasquez Protein [Mass/Vol] 5.1 g/dL Critically low 6.4-8.2 Th [facility] Comment on above: Performed By: #### C MP #### [facility] [address] [address] [address] Julia Velasquez Sodium [Moles/Vol] 146 mmol/L Critically high 136-[address] [facility] Comment on above: Performed By: #### C MP #### [facility] [address] [place] [address] Dr. Julia Velasquez Urea nitrogen [Mass/Vol] 34.0 mg/dL Critically high 7.0-18.0 [facility] Comment on above: Performed By: #### C MP #### [facility] [address] [place] [address] Dr. Julia Velasquez Urea nitrogen/Creatinine [Mass ratio] 30.9 mg/mg Normal [facility] Comment on above: Performed By: #### C MP #### [facility] [address] [place] [address] Dr. Julia Velasquez CBC W MANUAL DIFFon 12-14-19 23 ATYPICAL LYMPH # 0.21 103/ul Normal [facility] Comment on above: Performed By: #### C MP #### [facility] [address] [place] [address] Dr. Julia Velasquez ATYPICAL LYMPH % 1 % Normal [facility] Comment on above: Performed By: #### C MP #### [facility] [address] [place] [address] Dr. Julia Velasquez BAND # 0.2 103/ul Normal 0.0-0.3 [facility] Comment on above: Performed By: #### C MP #### [facility] [address] [place] [address] Dr. Julia Velasquez BAND % 1 % Normal 0-5 [facility] Comment on above: Performed By: #### C MP #### [facility] [address] [place] [address] Dr. Julia Velasquez BASOM # 0.00 103/ul Normal 0.00-0.10 [facility] Comment on above: Performed By: #### C MP #### [facility] [address] [place] [address] Dr. Julia Velasquez BASOM % 0.0 % Critically low 0.2-2.0 [facility] Comment on above: Performed By: #### C MP #### [facility] [address] [place] [address] Dr. Julia Velasquez BLAST # Normal [facility] Comment on above: Performed By: #### C MP #### [facility] [address] [place] [address] Dr. Julia Velasquez BLAST % Normal [facility] Comment on above: Performed By: #### C MP #### [facility] [address] [place] [address] Dr. Julia Velasquez CORRECTED WBC Normal 4.0-11.[address] [facility] Comment on above: Performed By: #### C MP #### [facility] [address] [place] [address] Dr. Julia Velasquez EOS # 0.00 103/ul Normal 0.00-0.70 [facility] Comment on above: Performed By: #### C MP #### [facility] [address] [place] [address] Dr. Julia Velasquez EOS% 0.0 % Critically low 0.9-7.0 [facility] Comment on above: Performed By: #### C MP #### [facility] [address] [place] [address] Dr. Julia Velasquez HCT 26.7 % Critically low 36.0-48.0 [facility] Comment on above: Performed By: #### C MP #### [facility] [address] [place] [address] Dr. Julia Velasquez HGB 8.8 g/dl Critically low 12.0-16.0 [facility] Comment on above: Performed By: #### C MP #### [facility] [address] [place] [address] Dr. Julia Velasquez LYMPHM # 1.05 103/ul Critically low 1.20-3.80 [facility] Comment on above: Performed By: #### C MP #### [facility] [address] [place] [address] Dr. Julia Velasquez LYMPHM% 5.0 % Critically low 20.5-60.0 [facility] Comment on above: Performed By: #### C MP #### [facility] [address] [place] [address] Dr. Julia Velasquez MCH 29.0 pg Normal 26.7-34.0 [facility] Comment on above: Performed By: #### C MP #### [facility] [address] [place] [address] Dr. Julia Velasquez MCHC 33.0 g/dl Normal 29.9-35.2 [facility] Comment on above: Performed By: #### C MP #### [facility] [address] [place] [address] Dr. Julia Velasquez MCV 88.1 fL Normal 81.0-99.0 [facility] Comment on above: Performed By: #### C MP #### [facility] [address] [place] [address] Dr. Julia Velasquez METAMYELOCYTE # Normal [facility] Comment on above: Performed By: #### C MP #### [facility] [address] [place] [address] Dr. Julia Velasquez METAMYELOCYTE % Normal [facility] Comment on above: Performed By: #### C MP #### [facility] [address] [place] [address] Dr. Julia Velasquez MONOM# 0.21 103/ul Critically low 0.30-0.80 [facility] Comment on above: Performed By: #### C MP #### [facility] [address] [place], [place] [id number] Dr. Julia Velasquez MONOM% 1.0 % Critically low 1.7-12.0 [facility] Comment on above: Performed By: #### C MP #### [facility] [address] [address] [address] Julia Velasquez MPV 10.6 fL Normal 9.5-13.5 [facility] Comment on above: Performed By: #### C MP #### [facility] [address] [address] [address] Julia Velasquez MYELOCYTE # Normal [facility] Comment on above: Performed By: #### C MP #### [facility] [address] [place] [address] Dr. Julia Velasquez MYELOCYTE % Normal [facility] Comment on above: Performed By: #### C MP #### [facility] [address] [place] [address] Dr. Julia Velasquez NRBC Normal [facility] Comment on above: Performed By: #### C MP #### [facility] [address] [place] [address] Dr. Julia Velasquez PLT 271 103/ul Normal 150-450 [facility] Comment on above: Performed By: #### C MP #### [facility] [address] [place] [address] Dr. Julia Velasquez RBC 3.03 106/ul Critically low 4.20-5.40 [facility] Comment on above: Performed By: #### C MP #### [facility] [address] [place] [address] Dr. Julia Velasquez RDW 16.7 % Critically high 11.0-15.0 [facility] Comment on above: Performed By: #### C MP #### [facility] [address] [place] [address] Dr. Julia Velasquez SEG # 19.41 103/ul Critically high 1.40-6.50 [facility] Comment on above: Performed By: #### C MP #### [facility] [address] [place] [address] Dr. Julia Velasquez SEG % 92.0 % Critically high 43.0-75.0 [facility] Comment on above: Performed By: #### C MP #### [facility] [address] [place] [address] Dr. Julia Velasquez WBC 21.1 103/ul Critically high 4.0-11.0 [facility] Comment on above: Performed By: #### C MP #### [facility] [address] [place] [address] Dr. Julia Velasquez PROF 14(COMP METB)on 023 Albumin [Mass/Vol] 1.4 g/dL Critically low 3.4-5.0 Th e [facility] Comment on above: Performed By: #### C MP #### [facility] [address] [place] [address] Dr. Julia Velasquez Albumin/Globulin [Mass ratio] 0.4 {ratio} Normal [facility] Comment on above: Performed By: #### C MP #### [facility] [address] [place] [address] Dr. Julia Velasquez ALP [Catalytic activity/Vol] 87 U/L Normal 46-116 [facility] Comment on above: Performed By: #### C MP #### [facility] [address] [place] [address] Dr. Julia Velasquez ALT [Catalytic activity/Vol] 26 U/L Normal 14-59 [facility] Comment on above: Performed By: #### C MP #### [facility] [address] [place] [address] Dr. Julia Velasquez Anion gap [Moles/Vol] 14.7 mmol/L Normal [facility] Comment on above: Performed By: #### C MP #### [facility] [address] [place] [address] Dr. Julia Velasquez AST [Catalytic activity/Vol] 59 U/L Critically high 15-37 [facility] Comment on above: Performed By: #### C MP #### [facility] [address] [place] [address] Dr. Julia Velasquez Bilirubin [Mass/Vol] 1.5 mg/dL Critically high 0.2-1.0 [facility] Comment on above: Performed By: #### C MP #### [facility] [address] [address] [address] Julia Velasquez Calcium [Mass/Vol] 8.1 mg/dL Critically low 8.5-10.1 Th [facility] Comment on above: Performed By: #### C MP #### [facility] [address] [address] [address] Julia Velasquez Chloride [Moles/Vol] 118 mmol/L Critically high 98-107 [facility] Comment on above: Performed By: #### C MP #### [facility] [address] [place] [address] Dr. Julia Velasquez CO2 [Moles/Vol] 20.6 mmol/L Critically low 21.0-32.0 [facility] Comment on above: Performed By: #### C MP #### [facility] [address] [place] [address] Dr. Julia Velasquez Creatinine [Mass/Vol] 1.20 mg/dL Critically high 0.55-1.02 [facility] Comment on above: Performed By: #### C MP #### [facility] [address] [place] [address] Dr. Julia Velasquez EGFR-AF SWEDISH 52 mL/min/1.73m2 Critically low >=60 [facility] Comment on above: Performed By: #### C MP #### [facility] [address] [place] [address] Dr. Julia Velasquez EGFR-NON AF SWEDISH 43 mL/min/1.73m2 Critically low >=60 [facility] Comment on above: Performed By: #### C MP #### [facility] [address] [place] [address] Dr. Julia Vleasquez Globulin (S) [Mass/Vol] 3.4 g/dL Normal [facility] Comment on above: Performed By: #### C MP #### [facility] [address] [place] [address] Dr. Julia Velasquez Glucose [Mass/Vol] 119 mg/dL Critically high 74-106 T [facility] Comment on above: Performed By: #### C MP #### [facility] [address] [address] [address] Julia Velasquez Potassium [Moles/Vol] 4.3 mmol/L Normal 3.5-5.1 [facility] Comment on above: Performed By: #### C MP #### [facility] [address] [address] [address] Julia Velasquez Protein [Mass/Vol] 4.8 g/dL Critically low 6.4-8.2 Th [facility] Comment on above: Performed By: #### C MP #### [facility] [address] [address] [address] Julia Velasquez Sodium [Moles/Vol] 149 mmol/L Critically high 136-145 [facility] Comment on above: Performed By: #### C MP #### [facility] [address] [address] [address] Julia Velasquez Urea nitrogen [Mass/Vol] 47.0 mg/dL Critically high 7.0-18.0 [facility] Comment on above: Performed By: #### C MP #### [facility] [address] [place] [address] Dr. Julia Velasquez Urea nitrogen/Creatinine [Mass ratio] 39.2 mg/mg Normal [facility] Comment on above: Performed By: #### C MP #### [facility] [address] [address] [address] Julia Velasquez CBC W MANUAL DIFFon 12-13-19 23 ATYPICAL LYMPH # Normal [facility] Comment on above: Performed By: #### L IVER, BMP, LIPA, EDSON #### [facility] [address] [address] [address] Julia Velasquez ATYPICAL LYMPH % Normal [facility] Comment on above: Performed By: #### L IVER, BMP, LIPA, EDSON #### [facility] [address] [place] [address] Dr. Julia Velasquez BAND # 0.9 103/ul Critically high 0.0-0.3 [facility] Comment on above: Performed By: #### L IVER, BMP, LIPA, EDSON #### [facility] [address] [address] [address] Julia Velasquez BAND % 3 % Normal 0-5 [facility] Comment on above: Performed By: #### L IVER, BMP, LIPA, EDSON #### [facility] [address] [address] [address] Julia Velasquez BASOM # 0.00 103/ul Normal 0.00-0.10 [facility] Comment on above: Performed By: #### L IVER, BMP, LIPA, EDSON #### [facility] [address] [address] [address] Julia Velasquez BASOM % 0.0 % Critically low 0.2-2.0 [facility] Comment on above: Performed By: #### L IVER, BMP, LIPA, EDSON #### [facility] [address] [place] [address] Dr. Julia Velasquez BLAST # Normal [facility] Comment on above: Performed By: #### L IVER, BMP, LIPA, EDSON #### [facility] [address] [address] [address] Julia Velasquez BLAST % Normal [facility] Comment on above: Performed By: #### L IVER, BMP, LIPA, EDSON #### [facility] [address] [place] [address] Dr. Julia Velasquez CORRECTED WBC Normal 4.0-11.0 [facility] Comment on above: Performed By: #### L IVER, BMP, LIPA, EDSON #### [facility] [address] [place] [address] Dr. Julia Velasquez EOS # 0.00 103/ul Normal 0.00-0.70 [facility] Comment on above: Performed By: #### L IVER, BMP, LIPA, EDSON #### [facility] [address] [place] [address] Dr. Julia Velasquez EOS% 0.0 % Critically low 0.9-7.0 [facility] Comment on above: Performed By: #### L IVER, BMP, LIPA, EDSON #### [facility] [address] [address] [address] Julia Velasquez HCT 28.9 % Critically low 36.0-48.0 [facility] Comment on above: Performed By: #### L IVER, BMP, LIPA, EDSON #### [facility] [address] [place] [address] Dr. Julia Velasquez HGB 9.5 g/dl Critically low 12.0-16.0 [facility] Comment on above: Performed By: #### L IVER, BMP, LIPA, EDSON #### [facility] [address] [place] [address] Dr. Julia Velasquez LYMPHM # 1.21 103/ul Normal 1.20-3.80 [facility] Comment on above: Performed By: #### L IVER, BMP, LIPA, EDSON #### [facility] [address] [place] [address] Dr. Julia Velasquez LYMPHM% 4.0 % Critically low 20.5-60.0 [facility] Comment on above: Performed By: #### L IVER, BMP, LIPA, EDSON #### [facility] [address] [place] [address] Dr. Julia Velasquez MCH 29.2 pg Normal 26.7-34.0 [facility] Comment on above: Performed By: #### L IVER, BMP, LIPA, EDSON #### [facility] [address] [place] [address] Dr. Julia Velasquez MCHC 32.9 g/dl Normal 29.9-35.2 [facility] Comment on above: Performed By: #### L IVER, BMP, LIPA, EDSON #### [facility] [address] [place] [address] Dr. Julia Velasquez MCV 88.9 fL Normal 81.0-99.0 [facility] Comment on above: Performed By: #### L IVER, BMP, LIPA, EDSON #### [facility] [address] [place], [place] [id number] Dr. Julia Velasquez METAMYELOCYTE # Normal [facility] Comment on above: Performed By: #### L IVER, BMP, LIPA, EDSON #### [facility] [address] [place] [address] Dr. Julia Velasquez METAMYELOCYTE % Normal [facility] Comment on above: Performed By: #### L IVER, BMP, LIPA, EDSON #### [facility] [address] [place] [address] Dr. Julia Velasquez MONOM# 1.21 103/ul Critically high 0.30-0.80 [facility] Comment on above: Performed By: #### L IVER, BMP, LIPA, EDSON #### [facility] [address] [place] [address] Dr. Julia Velasquez MONOM% 4.0 % Normal 1.7-12.0 [facility] Comment on above: Performed By: #### L IVER, BMP, LIPA, EDSON #### [facility] [address] [place] [address] Dr. Julia Velasquez MPV 11.2 fL Normal 9.5-13.5 [facility] Comment on above: Performed By: #### L IVER, BMP, LIPA, EDSON #### [facility] [address] [place] [address] Dr. Julia Velasquez MYELOCYTE # Normal [facility] Comment on above: Performed By: #### L IVER, BMP, LIPA, EDSON #### [facility] [address] [place] [address] Dr. Julia Velasquez MYELOCYTE % Normal [facility] Comment on above: Performed By: #### L IVER, BMP, LIPA, EDSON #### [facility] [address] [place] [address] Dr. Julia Velasquez NRBC 2 Normal [facility] Comment on above: Performed By: #### L IVER, BMP, LIPA, EDSON #### [facility] [address] [place] [address] Dr. Julia Velasquez PLT 273 103/ul Normal 150-450 [facility] Comment on above: Performed By: #### L IVER, BMP, LIPA, EDSON #### [facility] [address] [address] [address] Julia Velasquez RBC 3.25 106/ul Critically low 4.20-5.40 [facility] Comment on above: Performed By: #### L IVER, BMP, LIPA, EDSON #### [facility] [address] [place] [address] Dr. Julia Velasquez RDW 16.0 % Critically high 11.0-15.0 [facility] Comment on above: Performed By: #### L IVER, BMP, LIPA, EDSON #### [facility] [address] [place] [address] Dr. Julia Velasquez SEG # 26.97 103/ul Critically high 1.40-6.50 [facility] Comment on above: Performed By: #### L IVER, BMP, LIPA, EDSON #### [facility] [address] [address] [address] Julia Velasquez SEG % 89.0 % Critically high 43.0-75.0 [facility] Comment on above: Performed By: #### L IVER, BMP, LIPA, EDSON #### [facility] [address] [place] [address] Dr. Julia Velasquez WBC 30.3 103/ul Critically high 4.0-11.0 [facility] Comment on above: Performed By: #### L IVER, BMP, LIPA, EDSON #### [facility] [address] [place] [address] Dr. Julia Velasquez GI PANEL (PCR)on 12-12-2022 Adenovirus F 40/41 Not detected Normal NOT DETECTED [facility] Comment on above: Performed By: #### L IVER, BMP, LIPA, EDSON #### [facility] [address] [place] [address] Dr. Julia Velasquez Astrovirus Not detected Normal NOT DETECTED [facility] Comment on above: Performed By: #### L IVER, BMP, LIPA, EDSON #### [facility] [address] [place] [address] Dr. Julia Velasquez C. Diff toxin A/B Not detected Normal NOT DETECTED [facility] Comment on above: Performed By: #### L IVER, BMP, LIPA, EDSON #### [facility] [address] [place] [address] Dr. Julia Velasquez Campylobacter Not detected Normal NOT DETECTED [facility] Comment on above: Performed By: #### L IVER, BMP, LIPA, EDSON #### [facility] [address] [place] [address] Dr. Julia Velasquez Cryptosporidium Not detected Normal NOT DETECTED [facility] Comment on above: Performed By: #### L IVER, BMP, LIPA, EDSON #### [facility] [address] [place] [address] Dr. Julia Velasquez Cyclos. Cayetanensis Not detected Normal NOT DETECTED [facility] Comment on above: Performed By: #### L IVER, BMP, LIPA, EDSON #### [facility] [address] [place] [address] Dr. Julia Velasquez E. Coli O157 Not Applicable Normal Not Applicable [facility] Comment on above: Performed By: #### L IVER, BMP, LIPA, EDSON #### [facility] [address] [place] [address] Dr. Julia Velasquez E. histolytica Not detected Normal NOT DETECTED [facility] Comment on above: Performed By: #### L IVER, BMP, LIPA, EDSON #### [facility] [address] [place] [address] Dr. Julia Velasquez EAEC Not detected Normal NOT DETECTED [facility] Comment on above: Performed By: #### L IVER, BMP, LIPA, EDSON #### [facility] [address] [place] [address] Dr. Julia Velasquez EIEC Not detected Normal NOT DETECTED [facility] Comment on above: Performed By: #### L IVER, BMP, LIPA, EDSON #### [facility] [address] [place] [address] Dr. Julia Velasquez EPEC Not detected Normal NOT DETECTED [facility] Comment on above: Performed By: #### L IVER, BMP, LIPA, EDSON #### [facility] [address] [place] [address] Dr. Julia Velasquez ETEC Not detected Normal NOT DETECTED [facility] Comment on above: Performed By: #### L IVER, BMP, LIPA, EDSON #### [facility] [address] [place] [address] Dr. Julia Rowley Not detected Normal NOT DETECTED [facility] Comment on above: Performed By: #### L IVER, BMP, LIPA, EDSON #### [facility] [address] [place] [address] Dr. Julia DE PAZ CONTROLS PASSED [facility] Comment on above: Performed By: #### L IVER, BMP, LIPA, EDSON #### [facility] [address] [place] [address] Dr. Julia MORALES [facility] HEADER GI PANEL BACTERIA Normal T [facility] Comment on above: Performed By: #### L IVER, BMP, LIPA, EDSON #### [facility] [address] [place] [address] Dr. Julia DEMPSEY ECOLI GI PANEL DIARRHEAGENIC E.COLI / SHIGELLA Normal [facility] Comment on above: Performed By: #### L IVER, BMP, LIPA, EDSON #### [facility] [address] [place] [address] Dr. Julia DEMPSEY INFO SEE BELOW [facility] Comment on above: Result Comment: EAEC - Enteroaggregative E. Coli EPEC- Enteropathogenic E. Coli ETEC- Enterotoxigenic E. Coli lt/st STEC- Shigella-like toxin-producing E. Coli stx1/stx2 EIEC- Shigella/Enteroinvasive E. Coli Performed By: #### L IVER, BMP, LIPA, EDSON #### [facility] [address] [place] [address] Dr. Julia DEMPSEY PARASITES GI PANEL PARASITES Normal [facility] Comment on above: Performed By: #### L IVER, BMP, LIPA, EDSON #### [facility] [address] [address] [address] Julia Velasquez [facility] VIRUS GI PANEL VIRUSES Normal [facility] Comment on above: Performed By: #### L IVER, BMP, LIPA, EDSON #### [facility] [address] [address] [address] Julia Velasquez Norovirus GI/GII Not detected Normal NOT DETECTED [facility] Comment on above: Performed By: #### L IVER, BMP, LIPA, EDSON #### [facility] [address] [address] [address] Julia Ervin Shigelloedin Not detected Normal NOT DETECTED [facility] Comment on above: Performed By: #### L IVER, BMP, LIPA, EDSON #### [facility] [address] [address] [address] Julia Velasquez Rotavirus A Not detected Normal NOT DETECTED [facility] Comment on above: Performed By: #### L IVER, BMP, LIPA, EDSON #### [facility] [address] [address] [address] Julia Velasquez Salmonella Not detected Normal NOT DETECTED [facility] Comment on above: Performed By: #### L IVER, BMP, LIPA, EDSON #### [facility] [address] [address] [address] Julia Velasquez Sapovirus Not detected Normal NOT DETECTED [facility] Comment on above: Performed By: #### L IVER, BMP, LIPA, EDSON #### [facility] [address] [address] [address] Julia Velasquez STEC Not detected Normal NOT DETECTED [facility] Comment on above: Performed By: #### L IVER, BMP, LIPA, EDSON #### [facility] [address] [address] [address] Julia Velasquez Vibrio Not detected Normal NOT DETECTED [facility] Comment on above: Performed By: #### L IVER, BMP, LIPA, EDSON #### [facility] [address] [place] [address] Dr. Julia Velasquez Vibrio Cholera Not detected Normal NOT DETECTED [facility] Comment on above: Performed By: #### L IVER, BMP, LIPA, EDSON #### [facility] [address] [place] [address] Dr. Julia Velasquez Y. Enterocolitica Not detected Normal NOT DETECTED [facility] Comment on above: Performed By: #### L IVER, BMP, LIPA, EDSON #### [facility] [address] [place] [address] Dr. Julia Velasquez PROF 14(COMP METB)on 023 Albumin [Mass/Vol] 1.4 g/dL Critically low 3.4-5.0 Th [facility] Comment on above: Performed By: #### L IVER, BMP, LIPA, EDSON #### [facility] [address] [place] [address] Dr. Julia Velasquez Albumin/Globulin [Mass ratio] 0.3 {ratio} Normal [facility] Comment on above: Performed By: #### L IVER, BMP, LIPA, EDSON #### [facility] [address] [place] [address] Dr. Julia Velasquez ALP [Catalytic activity/Vol] 89 U/L Normal 46-116 [facility] Comment on above: Performed By: #### L IVER, BMP, LIPA, EDSON #### [facility] [address] [place] [address] Dr. Julia Velasquez ALT [Catalytic activity/Vol] 27 U/L Normal 14-59 [facility] Comment on above: Performed By: #### L IVER, BMP, LIPA, EDSON #### [facility] [address] [place] [address] Dr. Julia Velasquez Anion gap [Moles/Vol] 14.7 mmol/L Normal [facility] Comment on above: Performed By: #### L IVER, BMP, LIPA, EDSON #### [facility] [address] [place] [address] Dr. Julia Velasquez AST [Catalytic activity/Vol] 58 U/L Critically high 15-37 [facility] Comment on above: Performed By: #### L IVER, BMP, LIPA, EDSON #### [facility] [address] [address] [address] Julia Velasquez Bilirubin [Mass/Vol] 2.0 mg/dL Critically high 0.2-1.0 [facility] Comment on above: Performed By: #### L IVER, BMP, LIPA, EDSON #### [facility] [address] [address] [address] Julia Velasquez Calcium [Mass/Vol] 8.8 mg/dL Normal 8.5-10.1 [facility] Comment on above: Performed By: #### L IVER, BMP, LIPA, EDSON #### [facility] [address] [place] [address] Dr. Julia Velasquez Chloride [Moles/Vol] 118 mmol/L Critically high 98-107 [facility] Comment on above: Performed By: #### L IVER, BMP, LIPA, EDSON #### [facility] [address] [place] [address] Dr. Julia Velasquez CO2 [Moles/Vol] 20.7 mmol/L Critically low 21.0-32.0 [facility] Comment on above: Performed By: #### L IVER, BMP, LIPA, EDSON #### [facility] [address] [place] [address] Dr. Julia Velasquez Creatinine [Mass/Vol] 1.63 mg/dL Critically high 0.55-1.02 [facility] Comment on above: Performed By: #### L IVER, BMP, LIPA, EDSON #### [facility] [address] [address] [address] Julia Velasquez EGFR-AF SWEDISH 37 mL/min/1.73m2 Critically low >=60 [facility] Comment on above: Performed By: #### L IVER, BMP, LIPA, EDSON #### [facility] [address] [place] [address] Dr. Julia Velasquez EGFR-NON AF SWEDISH 30 mL/min/1.73m2 Critically low >=60 [facility] Comment on above: Performed By: #### L IVER, BMP, LIPA, EDSON #### [facility] [address] [place] [address] Dr. Julia Velasquez Globulin (S) [Mass/Vol] 4.7 g/dL Normal [facility] Comment on above: Performed By: #### L IVER, BMP, LIPA, EDSON #### [facility] [address] [place] [address] Dr. Julia Velasquez Glucose [Mass/Vol] 130 mg/dL Critically high 74-106 [facility] Comment on above: Performed By: #### L IVER, BMP, LIPA, EDSON #### [facility] [address] [place] [address] Dr. Julia Velasquez Potassium [Moles/Vol] 4.4 mmol/L Normal 3.5-5.1 [facility] Comment on above: Performed By: #### L IVER, BMP, LIPA, EDSON #### [facility] [address] [place] [address] Dr. Julia Velasquez Protein [Mass/Vol] 6.1 g/dL Critically low 6.4-8.2 Th [facility] [facility] Comment on above: Performed By: #### L IVER, BMP, LIPA, EDSON #### [facility] [address] [place] [address] Dr. Julia Velasquez Sodium [Moles/Vol] 149 mmol/L Critically high 136-145 [facility] Comment on above: Performed By: #### L IVER, BMP, LIPA, EDSON #### [facility] [address] [place] [address] Dr. Julia Velasquez Urea nitrogen [Mass/Vol] 56.0 mg/dL Critically high 7.0-18.0 [facility] Comment on above: Performed By: #### L IVER, BMP, LIPA, EDSON #### [facility] [address] [place] [address] Dr. Julia Velasquez Urea nitrogen/Creatinine [Mass ratio] 34.4 mg/mg Normal [facility] Comment on above: Performed By: #### L IVER, BMP, LIPA, EDSON #### [facility] [address] [place] [address] Dr. Julia Velasquez RESPIRATORY PANEL PLUSon Adenovirus Not detected Normal NOT DETECTED [facility] Comment on above: Performed By: #### L IVER, BMP, LIPA, EDSON #### [facility] [address] [place] [address] Dr. Julia Crystal. Parapertusis Not detected Normal NOT DETECTED [facility] Comment on above: Performed By: #### L IVER, BMP, LIPA, EDSON #### [facility] [address] [place] [address] Dr. Julia Charles Pertussis Not detected Normal NOT DETECTED [facility] Comment on above: Performed By: #### L IVER, BMP, LIPA, EDSON #### [facility] [address] [place] [address] Dr. Julia Velasquez Chlamydia Pneumoniae Not detected Normal NOT DETECTED [facility] Comment on above: Performed By: #### L IVER, BMP, LIPA, EDSON #### [facility] [address] [place] [address] Dr. Julia Velasquez Coronavirus 229E Not detected Normal NOT DETECTED [facility] Comment on above: Performed By: #### L IVER, BMP, LIPA, EDSON #### [facility] [address] [place] [address] Dr. Julia Velasquez Coronavirus HKU1 Not detected Normal NOT DETECTED [facility] Comment on above: Performed By: #### L IVER, BMP, LIPA, EDSON #### [facility] [address] [place] [address] Dr. Julia Velasquez Coronavirus NL63 Not detected Normal NOT DETECTED [facility] Comment on above: Performed By: #### L IVER, BMP, LIPA, EDSON #### [facility] [address] [place] [address] Dr. Julia Velasquez Coronavirus OC43 Not detected Normal NOT DETECTED [facility] Comment on above: Performed By: #### L IVER, BMP, LIPA, EDSON #### [facility] [address] [address] [address] Julia Velasquez Influenza A H1 Not detected Normal NOT DETECTED [facility] Comment on above: Performed By: #### L IVER, BMP, LIPA, EDSON #### [facility] [address] [address] [address] Julia Velasquez Influenza A H1 2009 Not detected Normal NOT DETECTED [facility] Comment on above: Performed By: #### L IVER, BMP, LIPA, EDSON #### [facility] [address] [address] [address] Julia Velasquez Influenza A H3 Not detected Normal NOT DETECTED [facility] Comment on above: Performed By: #### L IVER, BMP, LIPA, EDSON #### [facility] [address] [address] [address] Julia Velasquez Influenza B Not detected Normal NOT DETECTED [facility] Comment on above: Performed By: #### L IVER, BMP, LIPA, EDSON #### [facility] [address] [address] [address] Julia Velasquez Metapneumovirus Not detected Normal NOT DETECTED [facility] Comment on above: Performed By: #### L IVER, BMP, LIPA, EDSON #### [facility] [address] [address] [address] Julia Velasquez Mycoplas. Pneumoniae Not detected Normal NOT DETECTED [facility] Comment on above: Performed By: #### L IVER, BMP, LIPA, EDSON #### [facility] [address] [address] [address] Julia Velasquez Parainfluenza 1 Not detected Normal NOT DETECTED [facility] Comment on above: Performed By: #### L IVER, BMP, LIPA, EDSON #### [facility] [address] [address] [address] Julia Velasquez Parainfluenza 2 Not detected Normal NOT DETECTED [facility] Comment on above: Performed By: #### L IVER, BMP, LIPA, EDSON #### [facility] [address] [place] [address] Dr. Julia Velasquez Parainfluenza 3 Not detected Normal NOT DETECTED [facility] Comment on above: Performed By: #### L NANCY MONDRAGON LIPA, EDSON #### [facility] [address] [place] [address] Dr. Julia Velasquez Parainfluenza 4 Not detected Normal NOT DETECTED [facility] Comment on above: Performed By: #### L NANCY MONDRAGON, LIPA, EDSON #### [facility] [address] [place] [address] Dr. Julia Velasquez Rhino/Enterovirus Not detected Normal NOT DETECTED [facility] Comment on above: Performed By: #### L NANCY MONDRAGON LIPA, EDSON #### [facility] [address] [place] [address] Dr. Julia Velasquez RP2 Header 1 RESPIRATORY PANEL: VIRUSES Normal [facility] Comment on above: Performed By: #### L NANCY MONDRAGON LIPA, EDSON #### [facility] [address] [place] [address] Dr. Julia Velasquez RP2 Header 2 RESPIRATORY PANEL: BACTERIA Normal [facility] Comment on above: Performed By: #### L NANCY MONDRAGON LIPA, EDSON #### [facility] [address] [place] [address] Dr. Julia Velasquez RSV Not detected Normal NOT DETECTED [facility] Comment on above: Performed By: #### L NANCY MONDRAGON, LIPA, EDSON #### [facility] [address] [place] [address] Dr. Julia Velasquez SARS-CoV-2 (COVID-19) RNA MARIO+probe Ql (Unsp spec) Not detected Normal NOT DETECTED [facility] Comment on above: Performed By: #### L NANCY MONDRAGON, LIPA, EDSON #### [facility] [address] [place] [address] Dr. Julia Velasquez CBC AUTO DIFFon 12-11-2022 BASO # 0.1 103/ul Normal 0.0-0.1 [facility] Comment on above: Performed By: #### C MP #### [facility] [address] [address] [address] Julia Velasquez Basophils/100 WBC (Bld) 0.4 % Normal 0.2-2.0 [facility] Comment on above: Performed By: #### C MP #### [facility] [address] [place] [address] Dr. Julia Velasquez EO # 0.0 103/ul Normal 0.0-0.7 [facility] Comment on above: Performed By: #### C MP #### [facility] [address] [place] [address] Dr. Julia Velasquez Eosinophils/100 WBC (Bld) 0.0 % Critically low 0.9-7.0 [facility] Comment on above: Performed By: #### C MP #### [facility] [address] [place] [address] Dr. Julia Velasquez Erythrocyte distribution width (RBC) [Ratio] 15.9 % Critically high 11.0-15.0 [facility] Comment on above: Performed By: #### C MP #### [facility] [address] [place] [address] Dr. Julia Velasquez Hematocrit (Bld) [Volume fraction] 34.4 % Critically low 36.0-48.0 [facility] Comment on above: Performed By: #### C MP #### [facility] [address] [place] [address] Dr. Julia Velasquez Hemoglobin (Bld) [Mass/Vol] 11.1 g/dL Critically low 12.0-16.0 [facility] Comment on above: Performed By: #### C MP #### [facility] [address] [place] [address] Dr. Julia Velasquez IG # 0.75 10e3/ul Critically high 0.00-0.03 [facility] Comment on above: Performed By: #### C MP #### [facility] [address] [place] [address] Dr. Julia Velasquez IG % 2.7 % Critically high 0.0-0.5 [facility] Comment on above: Performed By: #### C MP #### [facility] [address] [address] [address] Julia Velasquez LYMPH # 0.7 103/ul Critically low 1.2-3.8 [facility] Comment on above: Performed By: #### C MP #### [facility] [address] [place] [address] Dr. Julia Velasquez Lymphocytes/100 WBC (Bld) 2.4 % Critically low 20.5-60.0 [facility] Comment on above: Performed By: #### C MP #### [facility] [address] [place] [address] Dr. Julia Velasquez MANUAL DIFF REQ NO Normal [facility] Comment on above: Performed By: #### C MP #### [facility] [address] [place] [address] Dr. Julia Velasquez MCH (RBC) [Entitic mass] 29.2 pg Normal 26.7-34.0 [facility] Comment on above: Performed By: #### C MP #### [facility] [address] [place] [address] Dr. Julia Velasquez MCHC (RBC) [Mass/Vol] 32.3 g/dL Normal 29.9-35.2 [facility] Comment on above: Performed By: #### C MP #### [facility] [address] [place] [address] Dr. Julia Velasquez MCV (RBC) [Entitic vol] 90.5 fL Normal 81.0-99.0 [facility] Comment on above: Performed By: #### C MP #### [facility] [address] [place] [address] Dr. Julia Velasquez MONO # 0.7 103/ul Normal 0.3-0.8 [facility] Comment on above: Performed By: #### C MP #### [facility] [address] [place] [address] Dr. Julia Velasquez Monocytes/100 WBC (Bld) 2.6 % Normal 1.7-12.0 [facility] Comment on above: Performed By: #### C MP #### [facility] [address] [place] [address] Dr. Julia Velasquez NEUT # 25.6 103/ul Critically high 1.4-6.[address] [facility] Comment on above: Performed By: #### C MP #### [facility] [address] [place] [address] Dr. Julia Velasquez Neutrophils/100 WBC (Bld) 91.9 % Critically high 43.0-75.0 [facility] Comment on above: Performed By: #### C MP #### [facility] [address] [place] [address] Dr. Julia Velasquez Platelet mean volume (Bld) [Entitic vol] 11.1 fL Normal 9.5-13.5 [facility] Comment on above: Performed By: #### C MP #### [facility] [address] [place] [address] Dr. Julia Velasquez PLT 240 103/ul Normal 150-450 [facility] Comment on above: Performed By: #### C MP #### [facility] [address] [place] [address] Dr. Julia Velasquez RBC 3.80 106/ul Critically low 4.20-5.40 [facility] Comment on above: Performed By: #### C MP #### [facility] [address] [place] [address] Dr. Julia Velasquez WBC 27.9 103/ul Critically high 4.0-11.[address] [facility] Comment on above: Performed By: #### C MP #### [facility] [address] [place] [address] Dr. Julia Velasquez CBC W MANUAL DIFFon 12-12-19 23 ATYPICAL LYMPH # Normal [facility] Comment on above: Performed By: #### L IVNANCY VARGAS LIPA, EDSON #### [facility] [address] [place] [address] Dr. Julia Velasquez ATYPICAL LYMPH % Normal [facility] Comment on above: Performed By: #### L IVER BMP, LIPA, EDSON #### [facility] [address] [place] [address] Dr. Julia Velasquez BAND # 3.0 103/ul Critically high 0.0-0.3 [facility] Comment on above: Performed By: #### L IVER, BMP, LIPA, EDSON #### [facility] [address] [place] [address] Dr. Julia Velasquez BAND % 9 % Critically high 0-5 [facility] Comment on above: Performed By: #### L IVER, BMP, LIPA, EDSON #### [facility] [address] [place] [address] Dr. Julia Velasquez BASOM # 0.00 103/ul Normal 0.00-0.10 [facility] Comment on above: Performed By: #### L IVER, BMP, LIPA, EDSON #### [facility] [address] [place] [address] Dr. Julia Velasquez BASOM % 0.0 % Critically low 0.2-2.0 [facility] Comment on above: Performed By: #### L IVER, BMP, LIPA, EDSON #### [facility] [address] [place] [address] Dr. Julia Velasquez BLAST # Normal [facility] Comment on above: Performed By: #### L IVER, BMP, LIPA, EDSON #### [facility] [address] [place] [address] Dr. Julia Velasquez BLAST % Normal [facility] Comment on above: Performed By: #### L IVER, BMP, LIPA, EDSON #### [facility] [address] [place] [address] Dr. Julia Velasquez CORRECTED WBC Normal 4.0-11.[address] [facility] Comment on above: Performed By: #### L IVER, BMP, LIPA, EDSON #### [facility] [address] [place] [address] Dr. Julia Velasquez EOS # 0.00 103/ul Normal 0.00-0.70 [facility] Comment on above: Performed By: #### L IVER, BMP, LIPA, EDSON #### [facility] [address] [address] [address] Julia Velasquez EOS% 0.0 % Critically low 0.9-7.0 [facility] Comment on above: Performed By: #### L IVER, BMP, LIPA, EDSON #### [facility] [address] [place] [address] Dr. Julia Velasquez HCT 30.7 % Critically low 36.0-48.0 [facility] Comment on above: Performed By: #### L IVER, BMP, LIPA, EDSON #### [facility] [address] [place] [address] Dr. Julia Velasquez HGB 10.1 g/dl Critically low 12.0-16.0 [facility] Comment on above: Performed By: #### L IVER, BMP, LIPA, EDSON #### [facility] [address] [place] [address] Dr. Julia Velasquez LYMPHM # 0.67 103/ul Critically low 1.20-3.80 [facility] Comment on above: Performed By: #### L IVER, BMP, LIPA, EDSON #### [facility] [address] [address] [address] Julia Velasquez LYMPHM% 2.0 % Critically low 20.5-60.0 [facility] Comment on above: Performed By: #### L IVER, BMP, LIPA, EDSON #### [facility] [address] [address] [address] Julia Velasquez MCH 29.5 pg Normal 26.7-34.0 [facility] Comment on above: Performed By: #### L IVER, BMP, LIPA, EDSON #### [facility] [address] [place] [address] Dr. Julia Velasquez MCHC 32.9 g/dl Normal 29.9-35.2 [facility] Comment on above: Performed By: #### L IVER, BMP, LIPA, EDSON #### [facility] [address] [address] [address] Julia Velasquez MCV 89.8 fL Normal 81.0-99.0 [facility] Comment on above: Performed By: #### L IVER, BMP, LIPA, EDSON #### [facility] [address] [address] [address] Julia Velasquez METAMYELOCYTE # Normal [facility] Comment on above: Performed By: #### L IVER, BMP, LIPA, EDSON #### [facility] [address] [address] [address] Julia Velasquez METAMYELOCYTE % Normal [facility] Comment on above: Performed By: #### L IVER, BMP, LIPA, EDSON #### [facility] [address] [address] [address] Julia Velasquez MONOM# 0.33 103/ul Normal 0.30-0.80 [facility] Comment on above: Performed By: #### L IVER, BMP, LIPA, EDSON #### [facility] [address] [place] [address] Dr. Julia Velasquez MONOM% 1.0 % Critically low 1.7-12.0 [facility] Comment on above: Performed By: #### L IVER, BMP, LIPA, EDSON #### [facility] [address] [place] [address] Dr. Julia Velasquez MPV 10.1 fL Normal 9.5-13.5 [facility] Comment on above: Performed By: #### L IVER, BMP, LIPA, EDSON #### [facility] [address] [place] [address] Dr. Julia Velasquez MYELOCYTE # Normal [facility] Comment on above: Performed By: #### L IVER, BMP, LIPA, EDSON #### [facility] [address] [place] [address] Dr. Julia Velasquez MYELOCYTE % Normal [facility] Comment on above: Performed By: #### L IVER, BMP, LIPA, EDSON #### [facility] [address] [place] [address] Dr. Julia Velasquez NRBC Normal [facility] Comment on above: Performed By: #### L IVER, BMP, LIPA, EDSON #### [facility] [address] [address] [address] Julia Velasquez PLT 256 103/ul Normal 150-450 [facility] Comment on above: Performed By: #### L IVER, BMP, LIPA, EDSON #### [facility] [address] [place] [address] Dr. Julia Velasquez RBC 3.42 106/ul Critically low 4.20-5.40 [facility] Comment on above: Performed By: #### L IVER, BMP, LIPA, EDSON #### [facility] [address] [place] [address] Dr. Julia Velasquez RDW 15.9 % Critically high 11.0-15.0 [facility] Comment on above: Performed By: #### L IVER, BMP, LIPA, EDSON #### [facility] [address] [place] [address] Dr. Julia Velasquez SEG # 29.39 103/ul Critically high 1.40-6.50 [facility] Comment on above: Performed By: #### L IVER, BMP, LIPA, EDSON #### [facility] [address] [place] [address] Dr. Julia Velasquez SEG % 88.0 % Critically high 43.0-75.0 [facility] Comment on above: Performed By: #### L IVER, BMP, LIPA, EDSON #### [facility] [address] [place] [address] Dr. Julia Velasquez WBC 33.4 103/ul Critically high 4.0-11.0 [facility] Comment on above: Performed By: #### L IVER, BMP, LIPA, EDSON #### [facility] [address] [place] [address] Dr. Julia Velasquez CULTURE BLOODon 12-11-2022 Microscopic examination of blood, culture Culture Observations: NO GROWTH AT 5 DAYS. Normal [facility] Comment on above: Performed By: #### C MP #### [facility] [address] [place] [address] Dr. Julia Velasquez Microscopic examination of blood, culture Culture Observations: NO GROWTH AT 5 DAYS. Normal [facility] Comment on above: Performed By: #### C MP #### [facility] [address] [place] [address] Dr. Julia Velasquez PROF 14(COMP METB)on 023 Albumin [Mass/Vol] 1.9 g/dL Critically low 3.4-5.0 [facility] Comment on above: Performed By: #### C MP #### [facility] [address] [place] [address] Dr. Julia Velasquez Albumin/Globulin [Mass ratio] 0.5 {ratio} Normal [facility] Comment on above: Performed By: #### C MP #### [facility] [address] [place] [address] Dr. Julia Velasquez ALP [Catalytic activity/Vol] 94 U/L Normal 46-116 [facility] Comment on above: Performed By: #### C MP #### [facility] [address] [place] [address] Dr. Julia Velasquez ALT [Catalytic activity/Vol] 34 U/L Normal 14-59 [facility] Comment on above: Performed By: #### C MP #### [facility] [address] [place] [address] Dr. Julia Velasquez Anion gap [Moles/Vol] 19.9 mmol/L Normal [facility] Comment on above: Performed By: #### C MP #### [facility] [address] [place] [address] Dr. Julia Velasquez AST [Catalytic activity/Vol] 82 U/L Critically high 15-37 [facility] Comment on above: Performed By: #### C MP #### [facility] [address] [place] [address] Dr. Julia Velasquez Bilirubin [Mass/Vol] 3.0 mg/dL Critically high 0.2-1.0 [facility] Comment on above: Performed By: #### C MP #### [facility] [address] [place] [address] Dr. Julia Velasquez Calcium [Mass/Vol] 8.2 mg/dL Critically low 8.5-10.1 e [facility] Comment on above: Performed By: #### C MP #### [facility] [address] [address] [address] Julia Velasquez Chloride [Moles/Vol] 112 mmol/L Critically high 98-107 [facility] Comment on above: Performed By: #### C MP #### [facility] [address] [address] [address] Julia Velasquez CO2 [Moles/Vol] 18.7 mmol/L Critically low 21.0-32.0 [facility] Comment on above: Performed By: #### C MP #### [facility] [address] [address] [address] Julia Velasquez Creatinine [Mass/Vol] 1.75 mg/dL Critically high 0.55-1.02 [facility] Comment on above: Performed By: #### C MP #### [facility] [address] [address] [address] Julia Velasquez EGFR-AF SW[place]ISH 34 mL/min/1.73m2 Critically low >=60 [facility] Comment on above: Performed By: #### C MP #### [facility] [address] [address] [address] Julia Velasquez EGFR-NON AF SWEDISH 28 mL/min/1.73m2 Critically low >=60 [facility] Comment on above: Performed By: #### C MP #### [facility] [address] [address] [address] Julia Velasquez Globulin (S) [Mass/Vol] 3.6 g/dL Normal [facility] Comment on above: Performed By: #### C MP #### [facility] [address] [address] [address] Julia Velasquez Glucose [Mass/Vol] 95 mg/dL Normal 74-106 [facility] Comment on above: Performed By: #### C MP #### [facility] [address] [address] [address] Julia Velasquez Potassium [Moles/Vol] 4.6 mmol/L Normal 3.5-5.1 [facility] Comment on above: Performed By: #### C MP #### [facility] [address], [place] [address] Dr. Julia Velasquez Protein [Mass/Vol] 5.5 g/dL Critically low 6.4-8.2 Th e [facility] Comment on above: Performed By: #### C MP #### [facility] [address], [place] [address] Dr. Julia Velasquez Sodium [Moles/Vol] 146 mmol/L Critically high 136-[address] [facility] Comment on above: Performed By: #### C MP #### [facility] [address] [address] [address] Julia Velasquez Urea nitrogen [Mass/Vol] 58.0 mg/dL Critically high 7.0-18.0 [facility] Comment on above: Performed By: #### C MP #### [facility] [address] [address] [address] Julia Velasquez Urea nitrogen/Creatinine [Mass ratio] 33.1 mg/mg Normal [facility] Comment on above: Performed By: #### C MP #### [facility] [id number] Julia Velasquez XR CHEST 2 Von [...] BUCKY CRAIG Date: 2022-12-11 11:52 Normal The [facility] CBC W MANUAL DIFFon 12-11-19 23 ATYPICAL LYMPH # 0.18 103/ul Normal [facility] Comment on above: Performed By: #### C BRYNN #### [facility] [address] [address] [address] Julia Velasquez ATYPICAL LYMPH % 1 % Normal [facility] Comment on above: Performed By: #### C BRYNN #### [facility] [address] [address] [address] Julia Velasquez BAND # 0.0 103/ul Normal 0.0-0.3 The [facility] Comment on above: Performed By: #### C BRYNN #### [facility] [address] [place] [address] Dr. Julia Velasquez BAND % 0 % Normal 0-5 [facility] Comment on above: Performed By: #### C BRYNN #### [facility] [address] [address] [address] Julia Velasquez BASOM # 0.00 103/ul Normal 0.00-0.10 The [facility] Comment on above: Performed By: #### C BRYNN #### [facility] [address] [place] [address] Dr. Julia Velasquez BASOM % 0.0 % Critically low 0.2-2.0 The [facility] Comment on above: Performed By: #### C BRYNN #### [facility] [address] [address] [address] Julia Velasquez BLAST # Normal [facility] Comment on above: Performed By: #### C BRYNN #### [facility] [address] [place] [address] Dr. Julia Velasquez BLAST % Normal [facility] Comment on above: Performed By: #### C BRYNN #### [facility] [address] [place] [address] Dr. Julia Velasquez CORRECTED WBC Normal 4.0-11.[address] [facility] Comment on above: Performed By: #### C BRYNN #### [facility] [address] [address] [address] Julia Velasquez EOS # 0.00 103/ul Normal 0.00-0.70 The [facility] Comment on above: Performed By: #### C BRYNN #### [facility] [address] [address] [address] Julia Velasquez EOS% 0.0 % Critically low 0.9-7.0 The [facility] Comment on above: Performed By: #### C BRYNN #### [facility] [address] [address] [address] Julia Velasquez HCT 31.8 % Critically low 36.0-48.0 [facility] Comment on above: Performed By: #### C BRYNN #### [facility] [address] [place] [address] Dr. Julia Velasquez HGB 10.4 g/dl Critically low 12.0-16.0 The [facility] Comment on above: Performed By: #### C BRYNN #### [facility] [address] [place] [address] Dr. Julia Velasquez LYMPHM # 0.35 103/ul Critically low 1.20-3.80 [facility] Comment on above: Performed By: #### C BRYNN #### [facility] [address] [place] [address] Dr. Julia Velasquez LYMPHM% 2.0 % Critically low 20.5-60.0 The [facility] Comment on above: Performed By: #### C BRYNN #### [facility] [address] [place] [address] Dr. Julia Velasquez MCH 29.3 pg Normal 26.7-34.0 The [facility] Comment on above: Performed By: #### C BRYNN #### [facility] [address] [place] [address] Dr. Julia Velasquez MCHC 32.7 g/dl Normal 29.9-35.2 The [facility] Comment on above: Performed By: #### C BRYNN #### [facility] [address] [place] [address] Dr. Julia Velasquez MCV 89.6 fL Normal 81.0-99.0 [facility] Comment on above: Performed By: #### C BCMAN #### [facility] [address] [place] [address] Dr. Julia Velasquez METAMYELOCYTE # Normal [facility] Comment on above: Performed By: #### C BCMAN #### [facility] [address] [place] [address] Dr. Julia Velasquez METAMYELOCYTE % Normal [facility] Comment on above: Performed By: #### C BCMAN #### [facility] [address] [place] [address] Dr. Julia Velasuqez MONOM# 0.88 103/ul Critically high 0.30-0.80 [facility] Comment on above: Performed By: #### C BCJACKLYN #### [facility] [address] [place] [address] Dr. Julia Velasquez MONOM% 5.0 % Normal 1.7-12.0 [facility] Comment on above: Performed By: #### C BCMAN #### [facility] [address] [place] [address] Dr. Julia Velasquez MPV 10.6 fL Normal 9.5-13.5 [facility] Comment on above: Performed By: #### C BRYNN #### [facility] [address] [place] [address] Dr. Julia Velasquez MYELOCYTE # Normal The [facility] Comment on above: Performed By: #### C BRYNN #### [facility] [address] [place] [address] Dr. Julia Velasquez MYELOCYTE % Normal The [facility] Comment on above: Performed By: #### C BRYNN #### [facility] [address] [place] [address] Dr. Julia Velasquez NRBC Normal [facility] Comment on above: Performed By: #### C BRYNN #### [facility] [address] [place] [address] Dr. Julia Velasquez PLT 231 103/ul Normal 150-450 The [facility] Comment on above: Performed By: #### C BCMAN #### [facility] [address] [address] [address] Julia Velasquez RBC 3.55 106/ul Critically low 4.20-5.40 [facility] Comment on above: Performed By: #### C BRYNN #### [facility] [address] [address] [address] Julia Velasquez RDW 15.1 % Critically high 11.0-15.0 [facility] Comment on above: Performed By: #### C BRYNN #### [facility] [address] [address] [address] Julia Velasquez SEG # 16.19 103/ul Critically high 1.40-6.50 [facility] Comment on above: Performed By: #### C BRYNN #### [facility] [address] [address] [address] Julia Velasquez SEG % 92.0 % Critically high 43.0-75.0 [facility] Comment on above: Performed By: #### C BRYNN #### [facility] [address] [address] [address] Julia Velasquez WBC 17.6 103/ul Critically high 4.0-11.0 [facility] Comment on above: Performed By: #### C BRYNN #### [facility] [address] [address] [address] Julia Velasquez FERRITINon 12-10-2022 Ferritin [Mass/Vol] 450.0 ng/mL Critically high 8.0-252.0 [facility] Comment on above: Performed By: #### C MP #### [facility] [address] [address] [address] Julia Velasquez IRON AND TIBCon 12-10-2022 % SATURATION 5.6 % Normal [facility] Comment on above: Performed By: #### C MP #### [facility] [address] [address] [address] Julia Velasquez Iron [Mass/Vol] 11.0 ug/dL Critically low 50.0-170.0 [facility] Comment on above: Performed By: #### C MP #### [facility] [address] [address] [address] Julia Velasquez TIBC DIRECT 195.0 ug/dL Critically low 250.0-450.0 [facility] Comment on above: Performed By: #### C MP #### [facility] [address] [address] [address] Julia Velasquez PROF 14(COMP METB)on 023 Albumin [Mass/Vol] 2.0 g/dL Critically low 3.4-5.0 Th [facility] Comment on above: Performed By: #### C MP #### [facility] [address] [place] [address] Dr. Julia Velasquez Albumin/Globulin [Mass ratio] 0.4 {ratio} Normal [facility] Comment on above: Performed By: #### C MP #### [facility] [address] [place] [address] Dr. Julia Velasquez ALP [Catalytic activity/Vol] 87 U/L Normal 46-116 [facility] Comment on above: Performed By: #### C MP #### [facility] [address] [address] [address] Julia Velasquez ALT [Catalytic activity/Vol] 32 U/L Normal 14-59 [facility] Comment on above: Performed By: #### C MP #### [facility] [address] [place] [address] Dr. Julia Velasquez Anion gap [Moles/Vol] 16.2 mmol/L Normal [facility] Comment on above: Performed By: #### C MP #### [facility] [address] [place] [address] Dr. Julia Velasquez AST [Catalytic activity/Vol] 50 U/L Critically high 15-37 [facility] Comment on above: Performed By: #### C MP #### [facility] [address] [address] [address] Julia Velasquez Bilirubin [Mass/Vol] 1.7 mg/dL Critically high 0.2-1.0 [facility] Comment on above: Performed By: #### C MP #### [facility] [address] [address] [address] Julia Velasquez Calcium [Mass/Vol] 8.6 mg/dL Normal 8.5-10.1 [facility] Comment on above: Performed By: #### C MP #### [facility] [address] [address] [address] Julia Velasquez Chloride [Moles/Vol] 107 mmol/L Normal 98-107 [facility] Comment on above: Performed By: #### C MP #### [facility] [address] [address] [address] Julia Velasquez CO2 [Moles/Vol] 22.1 mmol/L Normal 21.0-32.0 [facility] Comment on above: Performed By: #### C MP #### [facility] [address] [address] [address] Julia Velasquez Creatinine [Mass/Vol] 2.38 mg/dL Critically high 0.55-1.02 [facility] Comment on above: Performed By: #### C MP #### [facility] [address] [address] [address] Julia Velasquez EGFR-AF SWEDISH 24 mL/min/1.73m2 Critically low >=60 [facility] Comment on above: Performed By: #### C MP #### [facility] [address] [address] [address] Julia Velasquez EGFR-NON AF SWEDISH 20 mL/min/1.73m2 Critically low >=60 [facility] Comment on above: Performed By: #### C MP #### [facility] [address] [address] [address] Julia Velasquez Globulin (S) [Mass/Vol] 4.7 g/dL Normal [facility] Comment on above: Performed By: #### C MP #### [facility] [address] [address] [address] Julia Velasquez Glucose [Mass/Vol] 116 mg/dL Critically high 74-106 [facility] Comment on above: Performed By: #### C MP #### [facility] [address] [address] [address] Julia Velasquez Potassium [Moles/Vol] 3.3 mmol/L Critically low 3.5-5.1 [facility] Comment on above: Performed By: #### C MP #### [facility] [address] [place] [address] Dr. Julia Velasquez Protein [Mass/Vol] 6.7 g/dL Normal 6.4-8.2 [facility] Comment on above: Performed By: #### C MP #### [facility] [address] [address] [address] Julia Velasquez Sodium [Moles/Vol] 142 mmol/L Normal 136-145 [facility] Comment on above: Performed By: #### C MP #### [facility] [address] [place] [address] Dr. Julia Velasquez Urea nitrogen [Mass/Vol] 57.0 mg/dL Critically high 7.0-18.0 [facility] Comment on above: Performed By: #### C MP #### [facility] [address] [place] [address] Dr. Julia Velasquez Urea nitrogen/Creatinine [Mass ratio] 23.9 mg/mg Normal [facility] Comment on above: Performed By: #### C MP #### [facility] [address] [place] [address] Dr. Julia Velasquez AMYLASEon 12-09-2022 Amylase [Catalytic activity/Vol] 18 U/L Critically low 25-115 [facility] Comment on above: Performed By: #### L IVER, BMP, LIPA, EDSON #### [facility] [address] [address] [address] Julia Velasquez CBC W MANUAL DIFFon 12-10-19 ATYPICAL LYMPH # Normal [facility] Comment on above: Performed By: #### C MP #### [facility] [address] [place] [address] Dr. Julia Velasquez ATYPICAL LYMPH % Normal [facility] Comment on above: Performed By: #### C MP #### [facility] [address] [place] [address] Dr. Julia Velasquez BAND # 0.8 103/ul Critically high 0.0-0.3 [facility] Comment on above: Performed By: #### C MP #### [facility] [address] [place] [address] Dr. Julia Velasquez BAND % 4 % Normal 0-5 [facility] Comment on above: Performed By: #### C MP #### [facility] [address] [place] [address] Dr. Julia Velasquez BASOM # 0.00 103/ul Normal 0.00-0.10 [facility] Comment on above: Performed By: #### C MP #### [facility] [address] [place] [address] Dr. Julia Velasquez BASOM % 0.0 % Critically low 0.2-2.0 [facility] Comment on above: Performed By: #### C MP #### [facility] [address] [place] [address] Dr. Julia Velasquez BLAST # Normal [facility] Comment on above: Performed By: #### C MP #### [facility] [address] [place] [address] Dr. Julia Velasquez BLAST % Normal [facility] Comment on above: Performed By: #### C MP #### [facility] [address] [place] [address] Dr. Julia Velasquez CORRECTED WBC Normal 4.0-11.[address] [facility] Comment on above: Performed By: #### C MP #### [facility] [address] [place] [address] Dr. Julia Velasquez EOS # 0.00 103/ul Normal 0.00-0.70 [facility] Comment on above: Performed By: #### C MP #### [facility] [address] [place] [address] Dr. Julia Velasquez EOS% 0.0 % Critically low 0.9-7.0 [facility] Comment on above: Performed By: #### C MP #### [facility] [address] [place] [address] Dr. Julia Velasquez HCT 27.2 % Critically low 36.0-48.0 [facility] Comment on above: Performed By: #### C MP #### [facility] [address] [place] [address] Dr. Julia Velasquez HGB 8.9 g/dl Critically low 12.0-16.0 [facility] Comment on above: Performed By: #### C MP #### [facility] [address] [place] [address] Dr. Julia Velasquez LYMPHM # 0.99 103/ul Critically low 1.20-3.80 [facility] Comment on above: Performed By: #### C MP #### [facility] [address] [place] [address] Dr. Julia Velasquez LYMPHM% 5.0 % Critically low 20.5-60.0 [facility] Comment on above: Performed By: #### C MP #### [facility] [address] [place] [address] Dr. Julia Velasquez MCH 29.3 pg Normal 26.7-34.0 [facility] Comment on above: Performed By: #### C MP #### [facility] [address] [place] [address] Dr. Julia Velasquez MCHC 32.7 g/dl Normal 29.9-35.2 [facility] Comment on above: Performed By: #### C MP #### [facility] [address] [place] [address] Dr. Julia Velasquez MCV 89.5 fL Normal 81.0-99.0 [facility] Comment on above: Performed By: #### C MP #### [facility] [address] [place] [address] Dr. Julia Velasquez METAMYELOCYTE # Normal [facility] Comment on above: Performed By: #### C MP #### [facility] [address] [place] [address] Dr. Julia Velasquez METAMYELOCYTE % Normal [facility] Comment on above: Performed By: #### C MP #### [facility] [address] [address] [address] Julia Velasquez MONOM# 0.59 103/ul Normal 0.30-0.80 [facility] Comment on above: Performed By: #### C MP #### [facility] [address] [place] [address] Dr. Julia Velasquez MONOM% 3.0 % Normal 1.7-12.0 [facility] Comment on above: Performed By: #### C MP #### [facility] [address] [place] [address] Dr. Julia Velasquez MPV 10.9 fL Normal 9.5-13.5 [facility] Comment on above: Performed By: #### C MP #### [facility] [address] [place] [address] Dr. Julia Velasquez MYELOCYTE # Normal [facility] Comment on above: Performed By: #### C MP #### [facility] [address] [place] [address] Dr. Julia Velasquez MYELOCYTE % Normal [facility] Comment on above: Performed By: #### C MP #### [facility] [address] [place] [address] Dr. Julia Velasquez NRBC Normal [facility] Comment on above: Performed By: #### C MP #### [facility] [address] [place] [address] Dr. Julia Velasquez PLT 268 103/ul Normal 150-450 [facility] Comment on above: Performed By: #### C MP #### [facility] [address] [place] [address] Dr. Julia Velasquez RBC 3.04 106/ul Critically low 4.20-5.40 [facility] Comment on above: Performed By: #### C MP #### [facility] [address] [place] [address] Dr. Julia Velasquez RDW 15.0 % Normal 11.0-15.0 [facility] Comment on above: Performed By: #### C MP #### [facility] [address] [place] [address] Dr. Julia Velasquez SEG # 17.42 103/ul Critically high 1.40-6.50 [facility] Comment on above: Performed By: #### C MP #### [facility] [address], [place] [address] Dr. Julia Velasquez SEG % 88.0 % Critically high 43.0-75.0 [facility] Comment on above: Performed By: #### C MP #### [facility] [address], [place] [address] Dr. Julia Velasquez WBC 19.8 103/ul Critically high 4.0-11.0 [facility] Comment on above: Performed By: #### C MP #### [facility] [address], [place] [address] ABD/PELVIS WO CONon [...] RAKESH MANNING Date: 2022-12-09 19:43 Normal The [facility] CT FACIAL BONES WO CONon CT [...] IMPRESSION: No acute process Electronically authenticated by: EKLVIN MCLAUGHLIN Date: 2022-12-09 20:18 Normal [facility]on SARS-CoV-2 (COVID-19) RNA MARIO+probe Ql (Unsp spec) Not detected Normal NOT DETECTED The [facility] Comment on above: Result Comment: When [...] for this test is supported by the [place] [employer] and [employer] Service's declaration that [...] be used). Performed By: #### L IVER, NANCY, LIPA, EDSON #### [facility] [address] [place] [address] Dr. Julia Velasquez LIPASEon 12-09-2022 Lipase [Catalytic activity/Vol] 86.0 U/L Normal 73.0-393.0 [facility] Comment on above: Performed By: #### L IVER, BMP, LIPA, EDSON #### [facility] [address] [place] [address] Dr. Julia Velasquez LIVER PROFILEon 12-09-2022 Albumin [Mass/Vol] 2.4 g/dL Critically low 3.4-5.0 Th e [facility] Comment on above: Performed By: #### L IVER, BMP, LIPA, EDSON #### [facility] [address] [place] [address] Dr. Julia Velasquez Albumin/Globulin [Mass ratio] 0.5 {ratio} Normal [facility] Comment on above: Performed By: #### L IVER, BMP, LIPA, EDSON #### [facility] [address] [place] [address] Dr. Julia Velasquez ALP [Catalytic activity/Vol] 104 U/L Normal 46-116 [facility] Comment on above: Performed By: #### L IVER, BMP, LIPA, EDSON #### [facility] [address] [place] [address] Dr. Julia Velasquez ALT [Catalytic activity/Vol] 35 U/L Normal 14-59 [facility] Comment on above: Performed By: #### L IVER, BMP, LIPA, EDSON #### [facility] [address] [place] [address] Dr. Julia Velasquez AST [Catalytic activity/Vol] 59 U/L Critically high 15-37 [facility] Comment on above: Performed By: #### L IVER, BMP, LIPA, EDSON #### [facility] [address] [place] [address] Dr. Julia Velasquez BILI, CONJUGATED 1.0 mg/dL Critically high 0.0-0.2 [facility] Comment on above: Performed By: #### L IVER, BMP, LIPA, EDSON #### [facility] [address] [place] [address] Dr. Julia Velasquez Bilirubin [Mass/Vol] 1.9 mg/dL Critically high 0.2-1.0 [facility] Comment on above: Performed By: #### L IVER, BMP, LIPA, EDSON #### [facility] [address] [place] [address] Dr. Julia Velasquez Globulin (S) [Mass/Vol] 5.0 g/dL Normal [facility] Comment on above: Performed By: #### L IVER, BMP, LIPA, EDSON #### [facility] [address] [place] [address] Dr. Julia Velasquez Protein [Mass/Vol] 7.4 g/dL Normal 6.4-8.2 [facility] Comment on above: Performed By: #### L IVER, BMP, LIPA, EDSON #### [facility] [address] [place] [address] Dr. Julia Velasquez OCC BLD IMMUNOASSAYon 2022 OCCULT BLOOD Negative Normal NEGATIVE [facility] Comment on above: Performed By: #### L IVER, BMP, LIPA, EDSON #### [facility] [address] [place] [address] Dr. Julia Velasquez PROF CHEM 8 (BAS METB)on Anion gap [Moles/Vol] 18.8 mmol/L Normal [facility] Comment on above: Performed By: #### L IVER, BMP, LIPA, EDSON #### [facility] [address] [place] [address] Dr. Julia Velasquez Calcium [Mass/Vol] 9.2 mg/dL Normal 8.5-10.1 [facility] Comment on above: Performed By: #### L IVER, BMP, LIPA, EDSON #### [facility] [address] [place] [address] Dr. Julia Velasquez Chloride [Moles/Vol] 100 mmol/L Normal 98-107 [facility] Comment on above: Performed By: #### L IVER, BMP, LIPA, EDSON #### [facility] [address] [place] [address] Dr. Julia Velasquez CO2 [Moles/Vol] 24.3 mmol/L Normal 21.0-32.[address] [facility] Comment on above: Performed By: #### L IVER, BMP, LIPA, EDSON #### [facility] [address] [place] [address] Dr. Julia Velasquez Creatinine [Mass/Vol] 2.98 mg/dL Critically high 0.55-1.02 [facility] Comment on above: Performed By: #### L IVER, BMP, LIPA, EDSON #### [facility] [address] [place] [address] Dr. Julia Velasquez EGFR-AF SWEDISH 18 mL/min/1.73m2 Critically low >=60 [facility] Comment on above: Performed By: #### L IVER, BMP, LIPA, EDSON #### [facility] [address] [place] [address] Dr. Julia Velasquez EGFR-NON AF SWEDISH 15 mL/min/1.73m2 Critically low >=60 [facility] Comment on above: Performed By: #### L IVER, BMP, LIPA, EDSON #### [facility] [address] [place] [address] Dr. Julia Velasquez Glucose [Mass/Vol] 116 mg/dL Critically high 74-[address] [facility] Comment on above: Performed By: #### L IVER, BMP, LIPA, EDSON #### [facility] [address] [place] [address] Dr. Julia Velasquez Potassium [Moles/Vol] 4.1 mmol/L Normal 3.5-5.1 [facility] Comment on above: Performed By: #### L IVER, BMP, LIPA, EDSON #### [facility] [address] [place] [address] Dr. Julia Velasquez Sodium [Moles/Vol] 139 mmol/L Normal 136-145 [facility] Comment on above: Performed By: #### L IVER, BMP, LIPA, EDSON #### [facility] [address] [place] [address] Dr. Julia Velasquez Urea nitrogen [Mass/Vol] 57.0 mg/dL Critically high 7.0-18.0 [facility] Comment on above: Performed By: #### L IVER, BMP, LIPA, EDSON #### [facility] [address] [place] [address] Dr. Julia Velasquez Urea nitrogen/Creatinine [Mass ratio] 19.1 mg/mg Normal [facility] Comment on above: Performed By: #### L IVER, BMP, LIPA, EDSON #### [facility] [address] [place] [address] Dr. Julia Velasquez CBC AUTO DIFFon 08-26-2022 BASO # 0.0 103/ul Normal 0.0-0.1 [facility] Comment on above: Performed By: #### L IVER, BMP, LIPA, EDSON #### [facility] [address] [place] [address] Dr. Julia Velasquez Basophils/100 WBC (Bld) 0.6 % Normal 0.2-2.0 [facility] Comment on above: Performed By: #### L IVER, BMP, LIPA, EDSON #### [facility] [address] [place] [address] Dr. Julia Velasquez EO # 0.3 103/ul Normal 0.0-0.7 [facility] Comment on above: Performed By: #### L IVER, BMP, LIPA, EDSON #### [facility] [address] [place] [address] Dr. Julia Velasquez Eosinophils/100 WBC (Bld) 4.9 % Normal 0.9-7.0 [facility] Comment on above: Performed By: #### L IVER, BMP, LIPA, EDSON #### [facility] [address] [place] [address] Dr. Julia Velasquez Erythrocyte distribution width (RBC) [Ratio] 13.2 % Normal 11.0-15.0 [facility] Comment on above: Performed By: #### L IVER, BMP, LIPA, EDSON #### [facility] [address] [place] [address] Dr. Julia Velasquez Hematocrit (Bld) [Volume fraction] 40.9 % Normal 36.0-48.0 [facility] Comment on above: Performed By: #### L IVER, BMP, LIPA, EDSON #### [facility] [address] [place] [address] Dr. Julia Velasquez Hemoglobin (Bld) [Mass/Vol] 13.0 g/dL Normal 12.0-16.0 [facility] Comment on above: Performed By: #### L IVER, BMP, LIPA, EDSON #### [facility] [address] [place] [address] Dr. Julia Velasquez IG # 0.05 10e3/ul Critically high 0.00-0.03 [facility] Comment on above: Performed By: #### L IVER, BMP, LIPA, EDSON #### [facility] [address] [place] [address] Dr. Julia Velasquez IG % 1.0 % Critically high 0.0-0.5 [facility] Comment on above: Performed By: #### L IVER, BMP, LIPA, EDSON #### [facility] [address] [place] [address] Dr. Julia Velasquez LYMPH # 1.3 103/ul Normal 1.2-3.8 [facility] Comment on above: Performed By: #### L IVER, BMP, LIPA, EDSON #### [facility] [address] [place] [address] Dr. Julia Velasquez Lymphocytes/100 WBC (Bld) 26.1 % Normal 20.5-60.0 [facility] Comment on above: Performed By: #### L IVER, BMP, LIPA, EDSON #### [facility] [address] [place] [address] Dr. Julia Velasquez MANUAL DIFF REQ NO Normal [facility] Comment on above: Performed By: #### L IVER, BMP, LIPA, EDSON #### [facility] [address] [place] [address] Dr. Julia Velasquez MCH (RBC) [Entitic mass] 29.6 pg Normal 26.7-34.0 [facility] Comment on above: Performed By: #### L IVER, BMP, LIPA, EDSON #### [facility] [address] [place] [address] Dr. Julia Velasquez MCHC (RBC) [Mass/Vol] 31.8 g/dL Normal 29.9-35.2 [facility] Comment on above: Performed By: #### L IVER, BMP, LIPA, EDSON #### [facility] [address] [place] [address] Dr. Julia Velasquez MCV (RBC) [Entitic vol] 93.2 fL Normal 81.0-99.0 [facility] Comment on above: Performed By: #### L IVER, BMP, LIPA, EDSON #### [facility] [address] [place] [address] Dr. Julia Velasquez MONO # 0.4 103/ul Normal 0.3-0.8 [facility] Comment on above: Performed By: #### L IVER, BMP, LIPA, EDSON #### [facility] [address] [place] [address] Dr. Julia Velasquez Monocytes/100 WBC (Bld) 7.7 % Normal 1.7-12.0 [facility] Comment on above: Performed By: #### L IVER, BMP, LIPA, EDSON #### [facility] [address] [place] [address] Dr. Julia Velasquez NEUT # 3.0 103/ul Normal 1.4-6.5 [facility] Comment on above: Performed By: #### L IVER, BMP, LIPA, EDSON #### [facility] [address] [place] [address] Dr. Julia Velasquez Neutrophils/100 WBC (Bld) 59.7 % Normal 43.0-75.0 [facility] Comment on above: Performed By: #### L IVER, BMP, LIPA, EDSON #### [facility] [address] [place] [address] Dr. Julia Velasquez Platelet mean volume (Bld) [Entitic vol] 10.6 fL Normal 9.5-13.5 [facility] Comment on above: Performed By: #### L IVER, BMP, LIPA, EDSON #### [facility] [address] [place] [address] Dr. Julia Velasquez PLT 248 103/ul Normal 150-450 [facility] Comment on above: Performed By: #### L IVER, BMP, LIPA, EDSON #### [facility] [address] [place] [address] Dr. Julia Velasquez RBC 4.39 106/ul Normal 4.20-5.40 [facility] Comment on above: Performed By: #### L IVER, BMP, LIPA, EDSON #### [facility] [address] [address] [address] Julia Velasquez WBC 5.1 103/ul Normal 4.0-11.0 [facility] Comment on above: Performed By: #### L IVER, BMP, LIPA, EDSON #### [facility] [address] [address] [address] Julia Velasquez LIPID PROFILEon 08-26-2022 CHOL-HDL RATIO NORM SEE BELOW Normal [facility] Comment on above: Result Comment: 3.3 - 4.4 LOW RISK 4.4 - 7.1 AVERAGE RISK 7.1 - 11.0 MODERATE RISK >11.0 HIGH RISK Performed By: #### L IVER, BMP, LIPA, EDSON #### [facility] [address] [address] [address] Julia Velasquez Cholesterol [Mass/Vol] 177 mg/dL Normal <=200 [facility] Comment on above: Performed By: #### L IVER, BMP, LIPA, EDSON #### [facility] [address] [address] [address] Julia Velasquez Cholesterol in HDL [Mass/Vol] 56 mg/dL Normal 40-60 [facility] Comment on above: Performed By: #### L IVER, BMP, LIPA, EDSON #### [facility] [address] [address] [address] Julia Velasquez Cholesterol in LDL [Mass/Vol] 99.4 mg/dL Normal [facility] Comment on above: Performed By: #### L IVER, BMP, LIPA, EDSON #### [facility] [address] [address] [address] Julia Velasquez Cholesterol.total/Ch olesterol in HDL [Mass ratio] 3.2 {ratio} Normal [facility] Comment on above: Performed By: #### L IVER, BMP, LIPA, EDSON #### [facility] [address] [address] [address] Julia Velasquez HDL NORMAL > or = 60 mg/dl - LO W CARDIOVASCULAR RISK <40 mg/dl - HIGH CARDIOVASCULAR RISK Normal [facility] Comment on above: Performed By: #### L IVER, BMP, LIPA, EDSON #### [facility] [address] [address] [address] Julia Velasquez LDL CALC NORMAL SEE BELOW Normal [facility] Comment on above: Result Comment: <100 mg/dl OPTIMAL 100 - 129 mg/dl NEAR OR ABOVE OPTIMAL 130 - 159 mg/dl BORDERLINE HIGH 160 - 189 mg/dl HIGH >190 mg/dl VERY HIGH Performed By: #### L IVER, BMP, LIPA, EDSON #### [facility] [address] [address] [address] Julia Velasquez Triglyceride [Mass/Vol] 108 mg/dL Normal <=150 [facility] Comment on above: Performed By: #### L IVER, BMP, LIPA, EDSON #### [facility] [address] [address] [address] Julia Velasquez VLDL CALC 21.6 mg/dL Normal [facility] Comment on above: Performed By: #### L IVER, BMP, LIPA, EDSON #### [facility] [address] [address] [address] Julia Velasquez PROF CHEM 8 (BAS METB)on Anion gap [Moles/Vol] 11.5 mmol/L Normal [facility] Comment on above: Performed By: #### L IVER, BMP, LIPA, EDSON #### [facility] [address] [address] [address] Julia Velasquez Calcium [Mass/Vol] 9.3 mg/dL Normal 8.5-10.1 [facility] Comment on above: Performed By: #### L IVER, BMP, LIPA, EDSON #### [facility] [address] [address] [address] Jluia Velasquez Chloride [Moles/Vol] 104 mmol/L Normal 98-107 [facility] Comment on above: Performed By: #### L IVER, BMP, LIPA, EDSON #### [facility] [address] [address] [address] Julia Velasquez CO2 [Moles/Vol] 30.5 mmol/L Normal 21.0-32.0 [facility] Comment on above: Performed By: #### L IVER, BMP, LIPA, EDSON #### [facility] [address] [place] [address] Dr. Julia Velasquez Creatinine [Mass/Vol] 1.09 mg/dL Critically high 0.55-1.02 [facility] Comment on above: Performed By: #### L IVER, BMP, LIPA, EDSON #### [facility] [address] [place] [address] Dr. Julia Velasquez EGFR-AF SWEDISH 59 mL/min/1.73m2 Critically low >=60 [facility] Comment on above: Performed By: #### L IVER, BMP, LIPA, EDSON #### [facility] [address] [place] [address] Dr. Julia Velasquez EGFR-NON AF SWEDISH 48 mL/min/1.73m2 Critically low >=60 [facility] Comment on above: Performed By: #### L IVER, BMP, LIPA, EDSON #### [facility] [address] [place] [address] Dr. Julia Velasquez Glucose [Mass/Vol] 89 mg/dL Normal 74-106 [facility] Comment on above: Performed By: #### L IVER, BMP, LIPA, EDSON #### [facility] [address] [place] [address] Dr. Julia Velasquez Potassium [Moles/Vol] 4.0 mmol/L Normal 3.5-5.1 [facility] Comment on above: Performed By: #### L IVER, BMP, LIPA, EDSON #### [facility] [address] [place] [address] Dr. Julia Velasquez Sodium [Moles/Vol] 142 mmol/L Normal 136-145 [facility] Comment on above: Performed By: #### L IVER, BMP, LIPA, EDSON #### [facility] [address] [place] [address] Dr. Julia Velasquez Urea nitrogen [Mass/Vol] 16.0 mg/dL Normal 7.0-18.0 [facility] Comment on above: Performed By: #### L NANCY MONDRAGON LIPA, AMY #### [facility] [address] [address] [address] Julia Velasquez Urea nitrogen/Creatinine [Mass ratio] 14.7 mg/mg Normal [facility] Comment on above: Performed By: #### L NANCY MONDRAGON LIPA, AMY #### [facility] [address] [place], [place] [address] Dr. Julia Velasquez XR DEXA BONE DENSITYon [...] by: BUCKY CRAIG Date: 2022-08-25 14:10 Normal [facility] Vital Signs Date Time Vital Sign Value Performing Clinician Facility 06-19-2025 11:040 Body height 165.1 cm [facility] Work Phone: [facility] 06-19-2025 11:27040 Body mass index (BMI) [Ratio] 23.5 kg/m2 [facility] DO Work Phone: [facility] 06-19-2025 11:040 Body weight 64.01 kg [facility] DO Work Phone: [facility] 06-19-2025 11:27-040 Diastolic blood pressure 71 mm[Hg] [facility] Work Phone: [facility] 06-19-2025 11:27-0400 Heart rate 62 /min Kyle Ball DO Work Phone: [facility] 06-19-2025 11:27-0400 Respiratory rate 12 /min Kyle Ball DO Work Phone: [facility] 06-19-2025 11:27-0400 Systolic blood pressure 127 mm[Hg] Kyle Ball DO Work Phone: [facility] 05-22-2025 14:05-0400 Body mass index (BMI) [Ratio] 26.21 kg/m2 Shivam Ponce MD Work Phone: [facility] 05-22-2025 14:05-0400 Body weight 66.59 kg Shivam Ponce MD Work Phone: [facility] 05-22-2025 14:05-0400 Diastolic blood pressure 70 mm[Hg] Shivam Ponce MD Work Phone: [facility] 05-22-2025 14:05-0400 Respiratory rate 18 /min Shivam Ponce MD Work Phone: [facility] 05-22-2025 14:05-0400 SaO2% (BldA) [Mass fraction] 98 % Shivam Ponce MD Work Phone: [facility] 05-22-2025 14:05-0400 Systolic blood pressure 122 mm[Hg] Shivam Ponce MD Work Phone: [facility] 05-09-2025 11:36-0400 Body height 159.4 cm Aamir Dao DO Work Phone: [facility] 05-09-2025 11:36-0400 Body mass index (BMI) [Ratio] 25.36 kg/m2 Aamir Dao DO Work Phone: [facility] 05-09-2025 11:36-0400 Body weight 64.41 kg Aamir Dao DO Work Phone: [facility] 05-09-2025 11:36-0400 Diastolic blood pressure 84 mm[Hg] Aamir Dao DO Work Phone: [facility] 05-09-2025 11:36-0400 Systolic blood pressure 128 mm[Hg] Aamir Dao Work Phone: [facility] 04-10-2025 12:20-0400 Body mass index (BMI) [Ratio] 25.92 kg/m2 Mel Hayes MD Work Phone: [facility] 04-10-2025 12:20-0400 Body weight 65.32 kg Mel Hayes MD Work Phone: [facility] 03-22-2025 14:15-0400 Body mass index (BMI) [Ratio] 23.76 kg/m2 Shivam Ponce MD Work Phone: [facility] 03-22-2025 14:15-0400 Body weight 59.88 kg Shivam Ponce MD Work Phone: [facility] 03-22-2025 14:15-0400 Diastolic blood pressure 73 mm[Hg] Shivam Ponce MD Work Phone: [facility] 03-22-2025 14:15-0400 Heart rate 67 /min Shivam Ponce MD Work Phone: [facility] 03-22-2025 14:15-0400 Systolic blood pressure 160 mm[Hg] Shivam Ponce MD Work Phone: [facility] 02-13-2025 11:15-0400 Body mass index (BMI) [Ratio] 24.12 kg/m2 Shivam Ponce MD Work Phone: [facility] 02-13-2025 11:15-0400 Body weight 60.78 kg Shivam Ponce MD Work Phone: [facility] 02-13-2025 11:15-0400 Diastolic blood pressure 90 mm[Hg] Shivam Ponce MD Work Phone: [facility] 02-13-2025 11:15-0400 Heart rate 63 /min Shivam Ponce MD Work Phone: [facility] 02-13-2025 11:15-0400 Systolic blood pressure 147 mm[Hg] Shivam Ponce MD Work Phone: [facility] 01-19-2025 11:31-0400 Body height 165.1 cm [facility] 01-19-2025 11:31-0400 Body mass index (BMI) [Ratio] 22.9 kg/m2 [facility] 01-19-2025 11:31-0400 Body weight 62.59 kg [facility] 01-19-2025 11:31-0400 Diastolic blood pressure 80 mm[Hg] [facility] 01-19-2025 11:31-0400 Heart rate 61 /min [facility] 01-19-2025 11:31-0400 Respiratory rate 12 /min [facility] 01-19-2025 11:31-0400 Systolic blood pressure 130 mm[Hg] [facility] 12-08-2024 11:43-0400 Body mass index (BMI) [Ratio] 23.76 kg/m2 Shivam Ponce MD Work Phone: [facility] 12-08-2024 11:43-0400 Body weight 59.88 kg Shivam Ponce MD Work Phone: [facility] 12-08-2024 11:43-0400 Diastolic blood pressure 71 mm[Hg] Shivam Ponce MD Work Phone: [facility] 12-08-2024 11:43-0400 Heart rate 59 /min Shivam Ponce MD Work Phone: [facility] 12-08-2024 11:43-0400 Systolic blood pressure 136 mm[Hg] Shivam Ponce MD Work Phone: [facility] 11-15-2024 14:34-0400 Body height 165.1 cm Anita Garcia MD Work Phone: [facility] 11-15-2024 14:34-0400 Body mass index (BMI) [Ratio] 22 kg/m2 Anita Garcia MD Work Phone: [facility] 11-15-2024 14:34-0400 Body weight 60.1 kg Anita Garcia MD Work Phone: [facility] 11-15-2024 14:34-0400 Diastolic blood pressure 81 mm[Hg] Anita Garcia MD Work Phone: [facility] 11-15-2024 14:34-0400 Heart rate 68 /min Anita Garcia MD Work Phone: [facility] 11-15-2024 14:34-0400 Respiratory rate 12 /min Anita Garcia MD Work Phone: [facility] 11-15-2024 14:34-0400 SaO2% (BldA) [Mass fraction] 98 % Anita Garcia MD Work Phone: [facility] 11-15-2024 14:34-0400 Systolic blood pressure 132 mm[Hg] Anita Garcia MD Work Phone: [facility] 10-18-2024 11:18-0500 Body height 165.1 cm Anita Garcia MD Work Phone: [facility] 10-18-2024 11:18-0500 Body mass index (BMI) [Ratio] 22.8 kg/m2 Anita Garcia MD Work Phone: [facility] 10-18-2024 11:18-0500 Body weight 62.19 kg Anita Garcia MD Work Phone: [facility] 10-18-2024 11:18-0500 Diastolic blood pressure 73 mm[Hg] Anita Garcia MD Work Phone: [facility] 10-18-2024 11:18-0500 Heart rate 58 /min Anita Garcia MD Work Phone: [facility] 10-18-2024 11:18-0500 Respiratory rate 12 /min Anita Garcia MD Work Phone: [facility] 10-18-2024 11:18-0500 Systolic blood pressure 148 mm[Hg] Anita Garcia MD Work Phone: [facility] 10-14-2024 11:24-0500 Body height 158.8 cm Shivam Ponce MD Work Phone: [facility] 10-14-2024 11:24-0500 Body mass index (BMI) [Ratio] 23.76 kg/m2 Shivam Ponce MD Work Phone: [facility] 10-14-2024 11:24-0500 Body weight 59.88 kg Shivam Ponce MD Work Phone: [facility] 10-14-2024 11:24-0500 Diastolic blood pressure 84 mm[Hg] Shivam Ponce MD Work Phone: [facility] 10-14-2024 11:24-0500 Systolic blood pressure 150 mm[Hg] Shivam Ponce MD Work Phone: [facility] 10-04-2024 09:38-0500 Body height 165.1 cm Anita Garcia MD Work Phone: [facility] 10-04-2024 09:38-0500 Body mass index (BMI) [Ratio] 22.9 kg/m2 Anita Garcia MD Work Phone: [facility] 10-04-2024 09:38-0500 Body weight 62.59 kg Anita Garcia MD Work Phone: [facility] 10-04-2024 09:38-0500 Diastolic blood pressure 74 mm[Hg] Anita Garcia MD Work Phone: [facility] 10-04-2024 09:38-0500 Heart rate 70 /min Anita Garcia MD Work Phone: [facility] 10-04-2024 09:38-0500 Respiratory rate 12 /min Anita Garcia MD Work Phone: [facility] 10-04-2024 09:38-0500 Systolic blood pressure 149 mm[Hg] Anita Garcia MD Work Phone: [facility] 09-18-2024 23:59-0500 Body mass index (BMI) [Ratio] 23.76 kg/m2 Shivam Ponce MD Work Phone: [facility] 09-18-2024 23:59-0500 Body weight 59.88 kg Shivam Ponce MD Work Phone: [facility] 09-18-2024 23:59-0500 Diastolic blood pressure 84 mm[Hg] Shivam Ponce MD Work Phone: [facility] 09-18-2024 23:59-0500 Heart rate 65 /min Shivam Ponce MD Work Phone: [facility] 09-18-2024 23:59-0500 Systolic blood pressure 180 mm[Hg] Shivam Ponce MD Work Phone: [facility] 09-13-2024 14:09-0500 Body height 165.1 cm Kyle Ball DO Work Phone: [facility] 09-13-2024 14:09-0500 Body mass index (BMI) [Ratio] 23 kg/m2 Kyle Ball DO Work Phone: [facility] 09-13-2024 14:09-0500 Body weight 62.7 kg Kyle Ball DO Work Phone: [facility] 09-13-2024 14:09-0500 Diastolic blood pressure 76 mm[Hg] Kyle Ball DO Work Phone: [facility] 09-13-2024 14:09-0500 Heart rate 58 /min Kyle Ball DO Work Phone: [facility] 09-13-2024 14:09-0500 Respiratory rate 12 /min Kyle Ball DO Work Phone: [facility] 09-13-2024 14:09-0500 Systolic blood pressure 148 mm[Hg] Kyle Ball DO Work Phone: [facility] 09-05-2024 14:31-0500 Body height 165.1 cm Kyle Ball DO Work Phone: [facility] 09-05-2024 14:31-0500 Body mass index (BMI) [Ratio] 23.1 kg/m2 Kyle Ball DO Work Phone: [facility] 09-05-2024 14:31-0500 Body weight 63.04 kg Kyle Ball DO Work Phone: [facility] 09-05-2024 14:31-0500 Diastolic blood pressure 80 mm[Hg] Kyle Ball DO Work Phone: [facility] 09-05-2024 14:31-0500 Heart rate 74 /min Kyle Ball DO Work Phone: [facility] 09-05-2024 14:31-0500 SaO2% (BldA) [Mass fraction] 98 % Kyle Ball DO Work Phone: [facility] 09-05-2024 14:31-0500 Systolic blood pressure 176 mm[Hg] Kyle Ball DO Work Phone: [facility] 08-18-2024 17:29-0500 Body mass index (BMI) [Ratio] 24.33 kg/m2 Shivam Ponce MD Work Phone: [facility] 08-18-2024 17:29-0500 Body weight 61.33 kg Shivam Ponce MD Work Phone: [facility] 08-18-2024 17:29-0500 Diastolic blood pressure 72 mm[Hg] Shivam Ponce MD Work Phone: [facility] 08-18-2024 17:29-0500 Systolic blood pressure 112 mm[Hg] Shivam Ponce MD Work Phone: [facility] 08-16-2024 11:10-0500 Body height 165.1 cm Kyle Ball DO Work Phone: [facility] 08-16-2024 11:10-0500 Body mass index (BMI) [Ratio] 22.7 kg/m2 Kyle Ball DO Work Phone: [facility] 08-16-2024 11:10-0500 Body weight 62 kg Kyle Ball DO Work Phone: [facility] 07-20-2024 11:01-0500 Body height 166.37 cm Kyle Ball DO Work Phone: [facility] 07-20-2024 11:01-0500 Body mass index (BMI) [Ratio] 22.6 kg/m2 Kyle Ball DO Work Phone: [facility] 07-20-2024 11:050 Body weight 62.65 kg Kyle Ball DO Work Phone: [facility] 07-20-2024 11:01-0500 Diastolic blood pressure 72 mm[Hg] Kyle Ball DO Work Phone: [facility] 07-20-2024 11:01-0500 Heart rate 61 /min Kyle Ball DO Work Phone: [facility] 07-20-2024 11:01-0500 Respiratory rate 12 /min Kyle Ball DO Work Phone: [facility] 07-20-2024 11:01-0500 Systolic blood pressure 135 mm[Hg] Kyle Ball DO Work Phone: [facility] 07-07-2024 11:33-0400 Body mass index (BMI) [Ratio] 25.02 kg/m2 Shivam Ponce MD Work Phone: [facility] 07-07-2024 11:33-0400 Body weight 63.05 kg Shivam Ponce MD Work Phone: [facility] 07-07-2024 11:33-0400 Diastolic blood pressure 70 mm[Hg] Shivam Ponce MD Work Phone: [facility] 07-07-2024 11:33-0400 Heart rate 66 /min Shivam Ponce MD Work Phone: [facility] 07-07-2024 11:33-0400 Systolic blood pressure 102 mm[Hg] Shivam Ponce MD Work Phone: [facility] 06-14-2024 11:09-0400 Body height 166.37 cm [facility] 06-14-2024 11:09-0400 Body mass index (BMI) [Ratio] 22.3 kg/m2 [facility] 06-14-2024 11:09-0400 Body weight 61.74 kg [facility] 06-14-2024 11:09-0400 Diastolic blood pressure 77 mm[Hg] [facility] 06-14-2024 11:09-0400 Heart rate 64 /min [facility] 06-14-2024 11:09-0400 Respiratory rate 12 /min [facility] 06-14-2024 11:09-0400 Systolic blood pressure 132 mm[Hg] [facility] 06-01-2024 11:33-0400 Body height 158.8 cm Shivam Ponce MD Work Phone: [facility] 06-01-2024 11:33-0400 Body mass index (BMI) [Ratio] 23.94 kg/m2 Shivam Ponce MD Work Phone: [facility] 06-01-2024 11:33-0400 Body weight 60.33 kg Shivam Ponce MD Work Phone: [facility] 06-01-2024 11:33-0400 Diastolic blood pressure 74 mm[Hg] Shivam Ponce MD Work Phone: [facility] 06-01-2024 11:33-0400 Systolic blood pressure 122 mm[Hg] Shivam Ponce MD Work Phone: [facility] 05-27-2024 11:40-0400 Body height 166.37 cm [facility] 05-27-2024 11:40-0400 Body mass index (BMI) [Ratio] 21.8 kg/m2 [facility] 05-27-2024 11:40-0400 Body weight 60.44 kg [facility] 05-27-2024 11:40-0400 Diastolic blood pressure 64 mm[Hg] [facility] 05-27-2024 11:40-0400 Heart rate 63 /min [facility] 05-27-2024 11:40-0400 Respiratory rate 12 /min [facility] 05-27-2024 11:40-0400 Systolic blood pressure 118 mm[Hg] [facility] 05-17-2024 11:03-0400 Body height 166.37 cm [facility] 05-17-2024 11:03-0400 Body mass index (BMI) [Ratio] 21.4 kg/m2 [facility] 05-17-2024 11:03-0400 Body weight 59.47 kg [facility] 05-17-2024 11:03-0400 Diastolic blood pressure 79 mm[Hg] [facility] 05-17-2024 11:03-0400 Heart rate 57 /min [facility] 05-17-2024 11:03-0400 Respiratory rate 12 /min [facility] 05-17-2024 11:03-0400 Systolic blood pressure 136 mm[Hg] [facility] 05-03-2024 11:14-0400 Body height 158.8 cm Aamir Dao DO Work Phone: [facility] 05-03-2024 11:14-0400 Body mass index (BMI) [Ratio] 23.76 kg/m2 Aamir Dao DO Work Phone: [facility] 05-03-2024 11:14-0400 Body weight 59.88 kg Aamir Dao DO Work Phone: [facility] 05-03-2024 11:14-0400 Diastolic blood pressure 68 mm[Hg] Aamir Dao DO Work Phone: [facility] 05-03-2024 11:14-0400 Systolic blood pressure 126 mm[Hg] Aamir Dao DO Work Phone: [facility] 03-09-2024 11:18-0400 Body height 166.37 cm [facility] 03-09-2024 11:18-0400 Body mass index (BMI) [Ratio] 21.8 kg/m2 [facility] 03-09-2024 11:18-0400 Body weight 60.44 kg [facility] 03-09-2024 11:18-0400 Diastolic blood pressure 73 mm[Hg] [facility] 03-09-2024 11:18-0400 Heart rate 68 /min [facility] 03-09-2024 11:18-0400 Respiratory rate 12 /min [facility] 03-09-2024 11:18-0400 Systolic blood pressure 128 mm[Hg] [facility] 11-25-2023 11:17-0400 Body height 166.37 cm [facility] 11-25-2023 11:17-0400 Body mass index (BMI) [Ratio] 23.3 kg/m2 [facility] 11-25-2023 11:17-0400 Body weight 64.63 kg [facility] 11-25-2023 11:17-0400 Diastolic blood pressure 72 mm[Hg] [facility] 11-25-2023 11:17-0400 Heart rate 66 /min [facility] 11-25-2023 11:17-0400 Respiratory rate 12 /min [facility] 11-25-2023 11:17-0400 Systolic blood pressure 127 mm[Hg] [facility] 10-14-2023 11:20-0500 Body mass index (BMI) [Ratio] 24.96 kg/m2 Shivam Ponce MD Work Phone: [facility] 10-14-2023 11:20-0500 Body weight 63.41 kg Shivam Ponce MD Work Phone: [facility] 10-14-2023 11:20-0500 Diastolic blood pressure 82 mm[Hg] Shivam Ponce MD Work Phone: [facility] 10-14-2023 11:20-0500 Systolic blood pressure 130 mm[Hg] Shivam Ponce MD Work Phone: [facility] 08-25-2023 15:00-0500 Body weight 63.04 kg [facility] 08-25-2023 15:00-0500 Diastolic blood pressure 64 mm[Hg] [facility] 08-25-2023 15:00-0500 Systolic blood pressure 114 mm[Hg] [facility] 08-25-2023 11:15-0500 Body height 166.37 cm Doni Miguel Other [facility] 08-25-2023 11:15-0500 Body mass index (BMI) [Ratio] 22.61 kg/m2 Doni Miguel Other [facility] Other 08-25-2023 11:15-0500 Body weight 62.6 kg Doni Rivera Other [facility] Other 08-25-2023 11:15-0500 Diastolic blood pressure 73 mm[Hg] Doni Miguel Other [facility] Other 08-25-2023 11:15-0500 Systolic blood pressure 117 mm[Hg] Doni Miguel Other [facility] Other 05-27-2023 10:00-0400 Body height 166.37 cm Kyle Ball Other [facility] Other 05-27-2023 10:00-0400 Body mass index (BMI) [Ratio] 22.74 kg/m2 Kyle Ball Other [facility] Other 05-27-2023 10:00-0400 Body weight 62.96 kg Kyle Ball Other [facility] Other 05-27-2023 10:00-0400 Diastolic blood pressure 72 mm[Hg] Kyle Ball Other [facility] Other 05-27-2023 10:00-0400 Respiratory rate 12 /min Kyle Ball Other [facility] Other 05-27-2023 10:00-0400 Systolic blood pressure 131 mm[Hg] Kyle Ball Other [facility] Other 02-10-2023 10:30-0400 Body height 166.37 cm Kyle Ball Other [facility] Other 02-10-2023 10:30-0400 Body mass index (BMI) [Ratio] 24.55 kg/m2 Kyle Ball Other [facility] Other 02-10-2023 10:30-0400 Body weight 67.95 kg Kyle Ball Other [facility] Other 02-10-2023 10:30-0400 Diastolic blood pressure 78 mm[Hg] Kyle Ball Other [facility] Other 02-10-2023 10:30-0400 Respiratory rate 12 /min Kyle Ball Other [facility] Other 02-10-2023 10:30-0400 Systolic blood pressure 111 mm[Hg] Kyle Ball Other [facility] Other 01-01-2023 11:30-0400 Body height 166.37 cm Kyle Ball Other [facility] Other 01-01-2023 11:30-0400 Body mass index (BMI) [Ratio] 23.01 kg/m2 Kyle Ball Other [facility] Other 01-01-2023 11:30-0400 Body weight 63.69 kg Kyle Ball Other [facility] Other 01-01-2023 11:30-0400 Diastolic blood pressure 77 mm[Hg] Kyle Ball Other [facility] Other 01-01-2023 11:30-0400 Respiratory rate 12 /min Kyle Ball Other [facility] Other 01-01-2023 11:30-0400 Systolic blood pressure 124 mm[Hg] Kyle Ball Other [facility] Other 12-17-2022 11:15-0400 Body height 166.37 cm Kyle Ball Other [facility] Other 12-17-2022 11:15-0400 Body mass index (BMI) [Ratio] 25.3 kg/m2 Kyle Ball Other [facility] Other 12-17-2022 11:15-0400 Body weight 70.04 kg Kyle Ball Other [facility] Other 12-17-2022 11:15-0400 Diastolic blood pressure 70 mm[Hg] Kyle Ball Other [facility] Other 12-17-2022 11:15-0400 Respiratory rate 12 /min Kyle Ball Other [facility] Other 12-17-2022 11:15-0400 Systolic blood pressure 168 mm[Hg] Kyle Ball Other [facility] Other 11-17-2022 12:00-0400 Body height 166.37 cm Kyle Ball Other [facility] Other 11-17-2022 12:00-0400 Body mass index (BMI) [Ratio] 24.15 kg/m2 Kyle Ball Other [facility] Other 11-17-2022 12:00-0400 Body weight 66.86 kg Kyle Gottlieb Other [facility] Other 11-17-2022 12:00-0400 Diastolic blood pressure 74 mm[Hg] Kyle Gottlieb Other [facility] Other 11-17-2022 12:00-0400 Respiratory rate 12 /min Kyle Gottlieb Other [facility] Other 11-17-2022 12:00-0400 Systolic blood pressure 133 mm[Hg] Kyle Gottlieb Other [facility] Other 11-14-2021 15:45-0500 Body height 166.37 cm Doni Tamikasarina Other [facility] Other 11-14-2021 15:45-0500 Body mass index (BMI) [Ratio] 23.6 kg/m2 Doni Rivera Other [facility] Other 11-14-2021 15:45-0500 Body weight 65.32 kg Doni Disarina Other [facility] Other Encounters Encounter Date Encounter Type Care Provider Facility Start: 06-19-2025 End: 06-19-2025 ambulatory Kyle Gottlieb DO Work Phone: [facility] Work Phone: Start: 06-19-2025 End: 06-19-2025 Patient encounter procedure Kyle Ball DO -[facility] Work Phone: Start: 06-02-2025 End: 06-02-2025 ambulatory Kyle Ball DO Work Phone: [facility] Work Phone: Start: 06-02-2025 End: 06-02-2025 Patient encounter procedure Kyle Gottlieb DO -[facility] Work Phone: Start: 05-22-2025 End: 05-22-2025 ambulatory SHIVAM Jimbo KRIS Not Available Comment on above: Trochanteric bursiti s of both hips (Primary Dx); Orthostatic dizziness; Nerve root and plexus disorder, unspecified Start: 05-09-2025 End: 05-09-2025 Patient encounter procedure Aamir Acosta Morenita [facility] Comment on above: Encounter for gyneco logical examination without abnormal finding; Encounter for Papanicolaou smear of vagina; Breast cancer screening by mammogram; Hormone replacement therapy Start: 05-09-2025 End: 05-09-2025 Patient encounter status Aamir Dao DO Work Phone: [facility] Start: 05-09-2025 End: 05-09-2025 ambulatory AAMIR DAO Not Available Start: 04-27-2025 End: 04-27-2025 ambulatory Kyle Gottlieb DO Work Phone: [facility] Work Phone: Start: 04-27-2025 End: 04-27-2025 Patient encounter procedure Aliza Daniel MD -[facility] Work Phone: Start: 04-10-2025 End: 04-10-2025 Bamboo flowsheet Mel Hayes MD Work Phone: [facility] Start: 04-10-2025 End: 04-10-2025 Bamboo flowsheet Mel Hayes MD Work Phone: [facility] Start: 04-10-2025 End: 04-10-2025 Office outpatient visit 15 minutes Mel Hayes MD Work Phone: [facility] Comment on above: Chronic rhinitis (Pr imary Dx) Start: 04-10-2025 End: 04-10-2025 ambulatory MEL HAYES Not Available Start: 03-27-2025 End: 03-27-2025 ambulatory Kyle Gottlieb DO Work Phone: [facility] Work Phone: Start: 03-27-2025 End: 03-27-2025 Patient encounter procedure Kyle Gottlieb DO -[facility] Work Phone: Start: 03-22-2025 End: 03-22-2025 Bamboo flowsheet Shivam Ponce MD Work Phone: [facility] Start: 03-22-2025 End: 03-22-2025 Bamboo flowsheet Shivam Ponce MD Work Phone: [facility] Start: 03-22-2025 End: 03-22-2025 Clinical Support Shivam Ponce MD Work Phone: [facility] Comment on above: Nerve root and plexu s disorder, unspecified; Myalgia, multiple sites Start: 02-23-2025 End: 02-23-2025 Patient encounter procedure Aliza Daniel MD -[facility] Work Phone: Start: 02-15-2025 End: 02-15-2025 Telephone encounter Soheila Kemp NP Work Phone: [facility] Start: 02-13-2025 End: 02-13-2025 Bamboo flowsheet Shivam Ponce MD Work Phone: [facility] Start: 02-13-2025 End: 02-13-2025 Bamboo flowsheet Shivam Ponce MD Work Phone: [facility] Start: 02-13-2025 End: 02-13-2025 Clinical Support Shivam Ponce MD Work Phone: [facility] Comment on above: Trochanteric bursiti s of both hips (Primary Dx); Nerve root and plexus disorder, unspecified Start: 02-08-2025 Non-patient / Non-visit Byron Cochran MD -[facility] Work Phone: Start: 02-07-2025 Non-patient / Non-visit Damaso Acosta DO [facility] Work Phone: Start: 01-19-2025 End: 01-19-2025 ambulatory [facility] Work Phone: Start: 01-19-2025 End: 01-19-2025 Patient encounter procedure [facility] Work Phone: Start: 12-16-2024 End: 12-16-2024 ambulatory [facility] Work Phone: Start: 12-16-2024 End: 12-16-2024 Patient encounter procedure [facility] Work Phone: Start: 12-08-2024 End: 12-08-2024 Bamboo flowsheet Shivam Ponce MD Work Phone: [facility] Start: 12-08-2024 End: 12-08-2024 Bamboo flowsheet Shivam Ponce MD Work Phone: [facility] Start: 12-08-2024 End: 12-08-2024 Clinical Support Shivam Ponce MD Work Phone: [facility] Comment on above: Trochanteric bursiti s of both hips (Primary Dx); Nerve root and plexus disorder, unspecified Start: 11-15-2024 End: 11-15-2024 ambulatory Anita Garcia MD Work Phone: [facility] Work Phone: Start: 11-15-2024 End: 11-15-2024 Patient encounter procedure Anita Garcia MD Work Phone: [facility] Work Phone: Start: 10-18-2024 End: 10-18-2024 ambulatory Anita Garcia MD Work Phone: [facility] Work Phone: Start: 10-18-2024 End: 10-18-2024 Patient encounter procedure Anita Garcia MD Work Phone: [facility] Work Phone: Start: 10-14-2024 End: 10-14-2024 Bamboo flowsheet Shivam Ponce MD Work Phone: [facility] Start: 10-14-2024 End: 10-14-2024 Bamboo flowsheet Shivam Ponce MD Work Phone: [facility] Start: 10-14-2024 End: 10-14-2024 Clinical Support Shivam Ponce MD Work Phone: [facility] Comment on above: Trochanteric bursiti s of both hips (Primary Dx); Nerve root and plexus disorder, unspecified Start: 10-04-2024 End: 10-04-2024 ambulatory Anita Garcia MD Work Phone: [facility] Work Phone: Start: 10-04-2024 End: 10-04-2024 Patient encounter procedure Anita Garcia MD Work Phone: [facility] Work Phone: Start: 10-02-2024 Non-patient / Non-visit Anita Garcia MD Work Phone: [facility] Work Phone: Start: 09-30-2024 Non-patient / Non-visit Anita Garcia MD Work Phone: [facility] Work Phone: Start: 09-23-2024 Non-patient / Non-visit Anita Garcia MD Work Phone: [facility] Work Phone: Start: 09-14-2024 End: 09-14-2024 [employer] Shivam Ponce MD Work Phone: [facility] Start: 09-14-2024 End: 09-14-2024 Bamboo flowsheet Shivam Ponce MD Work Phone: [facility] Start: 09-14-2024 End: 09-14-2024 Clinical Support Shivam Ponce MD Work Phone: [facility] Comment on above: Trochanteric bursiti s of both hips (Primary Dx); Cervical paraspinal muscle spasm; Other nerve root and plexus disorders Start: 09-13-2024 End: 09-13-2024 ambulatory Kyle Ball DO Work Phone: [facility] Work Phone: Start: 09-13-2024 End: 09-13-2024 Patient encounter procedure Kyle Ball DO Work Phone: [facility] Work Phone: Start: 09-09-2024 Non-patient / Non-visit Benjam in Ball DO Work Phone: [facility] Work Phone: Start: 09-06-2024 Non-patient / Non-visit Anita Garcia MD Work Phone: [facility] Work Phone: Start: 09-06-2024 Non-patient / Non-visit Benjam in Ball DO Work Phone: [facility] Work Phone: Start: 09-05-2024 End: 09-05-2024 ambulatory Anita Garcia Facility:[facility] Start: 09-05-2024 End: 09-05-2024 Departed Referred Kyle Ball DO Work Phone: [facility] Work Phone: Start: 09-05-2024 End: 09-05-2024 Patient encounter procedure Kyle Ball DO Work Phone: [facility] Work Phone: Start: 08-18-2024 End: 08-18-2024 Bamboo flowsheet Shivam Ponce MD Work Phone: [facility] Start: 08-18-2024 End: 08-18-2024 Bamboo flowsheet Shivam Ponce MD Work Phone: [facility] Start: 08-18-2024 End: 08-18-2024 Clinical Support Shivam Ponce MD Work Phone: [facility] Comment on above: Other nerve root and plexus disorders (Primary Dx); Trochanteric bursitis of both hips Start: 08-16-2024 End: 08-16-2024 Patient encounter procedure Kyle Ball DO Work Phone: [facility] Work Phone: Start: 07-22-2024 End: 07-22-2024 ambulatory Kyle Ball DO Work Phone: [facility] Work Phone: Start: 07-22-2024 End: 07-22-2024 Patient encounter procedure Kyle Ball DO Work Phone: [facility] Work Phone: Start: 07-20-2024 End: 07-20-2024 ambulatory Kyle Ball DO Work Phone: [facility] Work Phone: Start: 07-20-2024 End: 07-20-2024 Patient encounter procedure Kyle Ball DO Work Phone: [facility] Work Phone: Start: 07-07-2024 End: 07-07-2024 Bamboo flowsheet Shivam Ponce MD Work Phone: [facility] Start: 07-07-2024 End: 07-07-2024 Bamboo flowsheet Shivam Ponce MD Work Phone: [facility] Start: 07-07-2024 End: 07-07-2024 Clinical Support Shivam Ponce MD Work Phone: [facility] Comment on above: Trochanteric bursiti s of both hips (Primary Dx); Other nerve root and plexus disorders Start: 06-23-2024 End: 06-23-2024 Patient encounter procedure DO Kyle Ball Work Phone: [facility] Work Phone: Start: 06-23-2024 End: 06-23-2024 ambulatory DO Kyle Gottlieb Work Phone: [facility] Work Phone: Start: 06-21-2024 End: 06-21-2024 ambulatory [facility] Work Phone: Start: 06-21-2024 End: 06-21-2024 Patient encounter procedure [facility] Work Phone: Start: 06-14-2024 End: 06-14-2024 ambulatory [facility] Work Phone: Start: 06-14-2024 End: 06-14-2024 Patient encounter procedure [facility] Work Phone: Start: 06-11-2024 Patient encounter procedure [facility] Start: 06-10-2024 Non-patient / Non-visit [facility] Work Phone: [...] plexus disorders Start: 05-27-2024 End: 05-27-2024 ambulatory [facility] Work Phone: Start: 05-27-2024 End: 05-27-2024 Patient encounter procedure [facility] Work Phone: Start: 05-25-2024 Non-patient / Non-visit [facility] Work Phone: Start: 05-17-2024 End: 05-17-2024 [facility] Work Phone: Start: 05-17-2024 End: 05-17-2024 Patient encounter procedure [facility] Work Phone: Start: 05-11-2024 End: 05-11-2024 [facility] Work Phone: Start: 05-11-2024 End: 05-11-2024 Patient encounter procedure [facility] Work Phone: Start: 05-03-2024 End: 05-03-2024 Office outpatient visit 25 minutes Aamir Dao DO Work Phone: [facility] Comment on above: Postmenopausal atrop hic vaginitis (Primary Dx); Breast cancer screening by mammogram; Hormone replacement therapy Start: 04-12-2024 End: 04-12-2024 [facility] Work Phone: Start: 04-12-2024 End: 04-12-2024 Patient encounter procedure [facility] Work Phone: Start: 03-09-2024 End: 03-09-2024 ambulatory [facility] Work Phone: Start: 03-09-2024 End: 03-09-2024 Patient encounter procedure [facility] Work Phone: Start: 02-03-2024 End: 02-03-2024 ambulatory [facility] Work Phone: Start: 02-03-2024 End: 02-03-2024 Patient encounter procedure Formerly [facility] Physician [facility] Work Phone: Start: 12-28-2023 End: 12-28-2023 ambulatory [facility] Work Phone: Start: 12-28-2023 End: 12-28-2023 Patient encounter procedure [facility] Work Phone: Start: 11-25-2023 End: 11-25-2023 ambulatory [facility] Work Phone: Start: 11-25-2023 End: 11-25-2023 Patient encounter procedure [facility] Physician [facility] Work Phone: Start: 10-21-2023 End: 10-21-2023 ambulatory [facility] Work Phone: Start: 10-21-2023 End: 10-21-2023 Patient encounter procedure [facility] Work Phone: Start: 10-14-2023 End: 10-14-2023 Office outpatient visit 25 minutes Shivam Ponce MD Work Phone: [facility] Comment on above: Brachial plexus neur opathy (Primary Dx); Multiple sclerosis ([facility]) Start: 10-13-2023 Chart abstracting Shivam schulz MD Work Phone: [facility] 210 Start: 09-29-2023 End: 09-29-2023 ambulatory Kyle Hadley Other [employer] Other Start: 09-29-2023 Telephone encounter Kyle Gottlieb FP [facility] Start: 09-17-2023 End: 09-17-2023 ambulatory Kyle Gottlieb Other [employer] Other Start: 09-17-2023 Office outpatient vi sit 15 minutes Kyle Gottlieb [facility] Start: 09-17-2023 End: 09-17-2023 Patient encounter procedure [facility] Physician [facility] Work Phone: Start: 09-15-2023 End: 09-15-2023 ambulatory Kyle Gottlieb Other [employer] Other Start: 09-15-2023 Nursing evaluation o f patient and report Kyle Gottlieb [facility] Start: 08-28-2023 End: 08-28-2023 ambulatory Tonya Hunter Other [employer] Other Start: 08-28-2023 Nursing evaluation o f patient and report Tonya Hunter [facility] Start: 08-28-2023 Telephone encounter Tonya Ligia her [facility] Start: 08-26-2023 End: 08-26-2023 ambulatory Tonya Hunter Other [facility] Other Start: 08-26-2023 Telephone encounter Tonya Ligia her [facility] Start: 08-25-2023 End: 08-25-2023 ambulatory Doni Rivera Other [employer] Other Start: 08-25-2023 Patient encounter procedure Doni Rivera [facility] Gastroenter[facility] Start: 08-25-2023 End: 08-25-2023 Patient encounter procedure [facility] Physician [facility] Work Phone: Start: 08-13-2023 End: 08-13-2023 ambulatory Kyle Gottlieb Other [employer] Other Start: 08-13-2023 Nursing evaluation o f patient and report Kyle Gottlieb [facility] Start: 07-09-2023 End: 07-09-2023 ambulatory Kyle Gottlieb Other [facility] Other Start: 07-09-2023 Nursing evaluation o f patient and report Kyle Gottlieb [facility] Start: 06-19-2023 End: 06-19-2023 ambulatory Doni Rivera Other [facility] Other Start: 06-19-2023 Telephone encounter Doni LANZA [facility] Start: 06-18-2023 End: 06-18-2023 ambulatory Doni Rivera Other [facility] Other Start: 06-18-2023 Telephone encounter Doni LANZA [facility] Start: 06-08-2023 End: 06-08-2023 ambulatory Kyle Gottlieb Other [employer] Other Start: 06-08-2023 Nursing evaluation o f patient and report Kyle Gottlieb [facility] Start: 05-29-2023 End: 05-29-2023 ambulatory Kyle Gottlieb Other [employer] Other Start: 05-29-2023 Telephone encounter Kyle LANZA [facility] Start: 05-27-2023 End: 05-27-2023 ambulatory Kyle Gottlieb Other [employer] Other Start: 05-27-2023 Patient encounter procedure Kyle Gottlieb [facility] Start: 05-13-2023 End: 05-13-2023 ambulatory DO Kyle Gottlieb Work Phone: [facility] Work Phone: Start: 05-13-2023 End: 05-13-2023 Patient encounter procedure DO Kyle Gottlieb Work Phone: [facility] Work Phone: Start: 05-07-2023 End: 05-07-2023 ambulatory Kyle Ball Other [employer] Other Start: 05-07-2023 Nursing evaluation o f patient and report Kyle Ball [facility] Start: 04-06-2023 End: 04-06-2023 ambulatory Kyle Ball Other [employer] Other Start: 04-06-2023 Nursing evaluation o f patient and report Kyle Ball [facility] Start: 03-23-2023 End: 03-23-2023 ambulatory Kyle Ball Other [employer] Other Start: 03-23-2023 Nursing evaluation o f patient and report Kyle Ball [facility] Start: 03-16-2023 End: 03-16-2023 ambulatory Kyle Ball Other [facility] Other Start: 03-16-2023 Nursing evaluation o f patient and report Kyle Ball [facility] Start: 03-13-2023 End: 03-13-2023 ambulatory Kyle Ball Other [employer] Other Start: 03-13-2023 Telephone encounter Kyle Ball [facility] Start: 03-11-2023 End: 03-11-2023 ambulatory Kyle Ball Other [employer] Other Start: 03-11-2023 Telephone encounter Kyle Ball [facility] Start: 02-10-2023 End: 02-10-2023 ambulatory Kyle Ball Other [employer] Other Start: 02-10-2023 Office outpatient vi sit 25 minutes Kyle Ball [facility] Start: 02-04-2023 End: 02-04-2023 ambulatory Kyle Ball Other [employer] Other Start: 02-04-2023 Telephone encounter Kyle Ball [facility] Start: 02-03-2023 End: 02-04-[address] KYLE GOTTLIEB Facility:[facility] Start: 02-03-2023 Telephone encounter Kyle Gottlieb [facility] Start: 01-09-2023 End: 01-09-2023 ambulatory Kyle Gottlieb Other [facility] Other Start: 01-09-2023 Telephone encounter Kyle Gottlieb [facility] Start: 01-07-2023 End: 01-08-[address] KYLE GOTTLIEB Facility:[facility] Start: 01-01-2023 End: 01-01-2023 ambulatory Kyle Gottlieb Other [facility] Other Start: 01-01-2023 Office outpatient vi sit 25 minutes Kyle Gottlieb [facility] Start: 12-17-2022 End: 12-17-2022 ambulatory Kyle Gottlieb Other [employer] Other Start: 12-17-2022 Telephone encounter Kyle Gottlieb [facility] Start: 12-17-2022 Transitional care manage srvc 7 day discharge Kyle Micah [facility] Start: 12-16-2022 End: 12-16-2022 ambulatory Kyle Gottlieb Other [employer] Other Start: 12-16-2022 Telephone encounter Kyle Gottlieb [facility] Start: 12-10-2022 End: 12-14-2022 Evaluation and management of inpatient DR BYRON ZULETA . Facility:[facility] Start: 12-08-2022 End: 12-08-2022 ambulatory Doni Rivera Other [facility] Other Start: 12-08-2022 Telephone encounter Doni LANZA [facility] Start: 11-17-2022 End: 11-17-2022 ambulatory Kyle Micah Other [facility] Other Start: 11-17-2022 Office outpatient vi sit 25 minutes Kyle Micah [facility] Start: 09-03-2022 End: 09-03-2022 ambulatory Doni Rivera Other [facility] Other Start: 09-03-2022 Telephone encounter Doni Lafleur [facility] Start: 08-26-2022 End: 08-27-[address] KYLE GOTTLIEB Facility:[facility] Start: 08-25-2022 End: 08-26-[address] KYLE GOTTLIEB Facility:[facility] Start: 05-19-2022 Adult health examination Kyle Gottlieb Other [facility] Other Start: 04-28-2022 End: 06-13-[address] KYLE GOTTLIEB Facility:[facility] Start: 04-14-2022 End: 04-14-2022 Patient encounter procedure DO [facility] Start: 04-09-2022 End: 04-09-2022 ambulatory Doni Rivera Other [facility] Other Start: 04-09-2022 Telephone encounter Doni Lafleur [facility] Start: 12-05-2021 End: 12-05-2021 ambulatory Doni Rivera Other [facility] Other Start: 12-05-2021 Telephone encounter Doni Lafleur [facility] Start: 11-14-2021 End: 11-14-2021 ambulatory Doni Rivera Other [employer] Other Start: 11-14-2021 Patient encounter procedure Doni Rivera [facility] Procedures Date Procedure Procedure Detail Performing Clinician Start: 09-05-2024 Streptococcus pyogen es culture Kyle Gottlieb DO Work Phone: Start: 06-23-2024 Screening mammograph y of bilateral breasts DO Kyle Micah Work Phone: Start: 05-13-2023 Screening mammograph y of bilateral breasts DO Kyle Gottlieb Work Phone: Start: 04-14-2022 Screening mammograph y of bilateral breasts DO Kyle Gottlieb Work Phone: Depression screening Dylan Gottlieb Other Plan of Treatment Date Care Activity Detail Author Start: 05-11-2026 End: 05-11-2026 Patient encounter procedure 05/11/2026 11:30 AM EDT Office Visit DAMION GONSALEZ [address] [place] [phone] Aamir Dao DO [address] [place] [address] [facility] Start: 04-11-2026 End: 04-11-2026 Patient encounter procedure 04/11/2026 12:00 PM EDT Office Visit [facility] [place] [facility] [address] [place] [phone] Mel Hayes MD [address] [place] [address] [facility] [place] [facility] Start: 07-26-2025 End: 07-26-2025 Clinical Support 07/26/2025 1:00 PM EST Clinical Support [facility] [address] [place] [address] Shivam Ponce MD [address] [facility] [address] [id number] [facility] Start: 06-24-2025 End: 07-09-2026 DBT Breast - bilateral screening Bilateral screening mammogram with tomosynthesis Imaging Routine Breast cancer screening by mammogram Expected: 06/24/2025, Expires: 07/09/2026 [facility] Comment on above: Expected: 06/24/2025 , Expires: 07/09/2026 Start: 05-22-2025 End: 05-22-2025 Clinical Support 05/22/2025 2:00 PM EDT Clinical Support [facility] [address] [facility] [address] [place] [phone] Shivam Ponce MD [address] [facility] [address] [place] [address], [place] [address] [facility] Start: 05-09-2025 End: 05-09-2025 Patient encounter procedure [facility] Start: 05-08-2025 Influenza vaccination [facility] Start: 04-10-2025 End: 04-10-2025 Patient encounter procedure [facility] [place] [facility] Comment on above: Arrived Start: 03-22-2025 End: 03-22-2025 Clinical Support [facility] Comment on above: Arrived Start: 02-13-2025 End: 02-13-2025 Patient encounter procedure 02/13/2025 11:00 AM EDT Office Visit [facility] [address] [facility] [address] [place] [address] Shivam Ponce MD [address] [facility] [address] [place] [address], [place] [address] Arrived [facility] Comment on above: Arrived Start: 02-08-2025 End: 02-08-2025 Clinical Support 02/08/2025 11:20 AM EDT Clinical Support [facility]UR [address] [facility] [address] [place] [phone] Shivam Ponce MD [address] [facility] [address] [place] [address], [place] [address] [facility] Start: 12-09-2024 End: 12-09-2024 Clinical Support 12/09/2024 11:30 AM EDT Clinical Support [facility]UR [address] [facility] [address] [place] [phone] Shivam Ponce MD [address] [facility] [address] [place] [address], [place] [address] [facility] Start: 12-08-2024 End: 12-08-2024 Clinical Support 12/08/2024 11:20 AM EDT Clinical Support [facility] [address] [place] [phone] Shivam Ponce MD [address] [facility] [address] [place] [address], [place] [address] Arrived [facility] Comment on above: Arrived Start: 10-14-2024 End: 10-14-2024 Clinical Support [facility] Comment on above: Arrived Start: 09-14-2024 End: 09-14-2024 Clinical Support 09/14/2024 10:20 AM EST Clinical Support [facility] [address] [facility] [address] [place] [phone] Shivam Ponce MD [address] [facility] [address] [place] [address], [place] [address] Arrived [facility] Comment on above: Arrived Start: 09-05-2024 Group A Streptococcu s Culture Group A Streptococcus Culture [facility] Start: 08-18-2024 End: 08-18-2024 Clinical Support 08/18/2024 11:40 AM EST Clinical Support [facility] [address] [facility] [address] [place] [phone] Shivam Ponce MD [address] [facility] [address] [place] [address], [place] [address] Arrived [facility] Comment on above: Arrived Start: 08-15-2024 End: 08-15-2024 Clinical Support 08/15/2024 11:20 AM EST Clinical Support [facility] [address] [place] [phone] Shivam Ponce MD [address] [facility] [address] [place] [address], [place] [address] [facility] Start: 07-07-2024 End: 07-07-2024 Clinical Support [facility] Comment on above: Arrived Start: 06-01-2024 End: 06-01-2024 Clinical Support [facility] Comment on above: Arrived Start: 05-14-2024 End: 07-03-2025 DBT Breast - bilateral screening Bilateral screening mammogram with tomosynthesis Imaging Routine Breast cancer screening by mammogram Expected: 05/14/2024, Expires: 07/03/2025 [facility] Work Phone: Comment on above: Expected: 05/14/2024 , Expires: 07/03/2025 Start: 05-08-2024 Influenza vaccination Influenza Vacc ine (#1) [facility] Start: 05-03-2024 End: 05-03-2024 Patient encounter procedure 05/03/2024 11:15 AM EDT Office Visit [facility] [address] [place] [phone] Aamir Dao DO [address] [place] [address] [facility] Start: 01-20-2024 End: 01-20-2024 Patient encounter procedure 01/20/2024 10:40 AM EDT Office Visit [facility] NEUR [address] [place] [phone] Shivam Ponce MD [address] [facility] [address] [address] [facility] Start: 11-16-2023 End: 11-16-2023 Patient encounter procedure 11/16/2023 11:40 AM EDT Office Visit [facility] [address] [place] [phone] Mel Hayes MD [address] [place] [address] [facility] Start: 10-14-2023 End: 10-14-2023 Patient encounter procedure 10/14/2023 11:20 AM EST Office Visit [facility] [address] [place] [address] Shivam Ponce MD [address] [place] [id number] [facility] Start: 05-08-2023 Influenza vaccination Influenza Vacc ine (#1) [facility] Start: 2007 Pneumococcal Vaccine : 65+ Years (1 - PCV) Pneumococcal Vaccine: 65+ Years (1 - PCV) [facility] Comprehensive metabo lic 2000 panel - Serum or Plasma [facility] CT Unspecified body region WO contrast [facility] IGP,rfxAptima HPV all,16/18,45 IGP,rfxAptima HPV all,16/18,45 Pathology and Cytology Routine Encounter for Papanicolaou smear of vagina Ordered: 05/09/2025 [facility] Work Phone: Comment on above: Ordered: 05/09/2025 Patient Education Low-fiber diet [facility] Work Phone: XR Foot - left GE 3 Views [facility] Immunizations Immunization Date Immunization Notes Care Provider Ihsan munson 06-19-2025 influenza, high dose seasonal, preservative-free Kyle Ball DO Work Phone: [facility] 06-15-2023 COVID-19 (PFIZER) 12Y and older Kyle Ball DO Work Phone: [facility] 05-27-2023 influenza virus vaccine, unspecified formulation [facility] 05-27-2023 Prevnar 20 Kyle Gottlieb Other [facility] 05-27-2023 influenza, high dose seasonal, preservative-free Kyle Gottlieb Other [facility] Other 07-11-2022 COVID-19 mRNA Bivale nt Booster (Pfizer) Kyle Gottlieb DO Work Phone: [facility] 07-11-2022 COVID-19 Pfizer (Pediatric) Kyle Gottlieb Other [facility] 06-23-2022 influenza, injectabl e, quadrivalent, preservative free Shivam Ponce MD Work Phone: [facility] 06-23-2022 influenza virus vaccine, unspecified formulation Shivam Ponce MD Work Phone: [facility] 05-19-2022 influenza virus vaccine, split virus (incl. purified surface antigen) Kyle Gottlieb Other [facility] Other 05-19-2022 influenza virus vaccine, unspecified formulation [facility] 05-19-2022 Influenza, High-dose Seasonal, Quadrivalent, Preservative Free Shivam Ponce MD Work Phone: [facility] 05-19-2022 Influenza, Seasonal, Quadrivalent, Adjuvanted Aamir Dao DO Work Phone: [facility] 02-06-2022 COVID-19 Comirnaty (Pfizer) Tri-Sucrose 12+ Kyle Gottlieb DO Work Phone: [facility] 02-06-2022 COVID-19 Vaccine Pfizer - Documentation Purposes Only Kyle Gottlieb Other [facility] 06-10-2021 COVID-19 mRNA, Comirnaty (Pfizer) DO Kyle Gottlieb Work Phone: [facility] 05-17-2021 influenza virus vaccine, split virus (incl. purified surface antigen) Kyle Gottlieb Other [facility] Other 05-17-2021 influenza virus vaccine, unspecified formulation [facility] 11-22-2020 Moderna SARS-CoV-2 Vaccination Shivam Ponce MD Work Phone: [facility] 10-25-2020 COVID-19 mRNA, Comirnaty (Pfizer) DO Kyle Gottlieb Work Phone: [facility] 10-15-2020 Moderna SARS-CoV-2 Vaccination Shivam Ponce MD Work Phone: [facility] 10-04-2020 COVID-19 mRNA, Comirnaty (Pfizer) DO Kyle Gottlieb Work Phone: [facility] 10-04-2020 COVID-19 Vaccine Moderna - Documentation Purposes Only Kyle Gottlieb Other [facility] 06-11-2020 influenza, seasonal, injectable Aamir Dao DO Work Phone: [facility] 05-16-2020 influenza virus vaccine, split virus (incl. purified surface antigen) Kyle Gottlieb Other [facility] Other 05-16-2020 influenza virus vaccine, unspecified formulation [facility] 06-02-2019 influenza virus vaccine, split virus (incl. purified surface antigen) Kyle Gottlieb Other [facility] Other 06-02-2019 influenza virus vaccine, unspecified formulation [facility] 05-25-2018 influenza virus vaccine, split virus (incl. purified surface antigen) Kyle Gottlieb Other [employer] [facility] [employer] Other 05-25-2018 influenza virus vaccine, unspecified formulation [facility] 05-25-2018 Seasonal trivalent influenza vaccine, adjuvanted, preservative free Aamir Dao DO Work Phone: [facility] 05-25-2017 influenza virus vaccine, split virus (incl. purified surface antigen) Kyle Gottlieb Other [employer] [facility] [employer] Other 05-25-2017 influenza virus vaccine, unspecified formulation [facility] 05-25-2017 influenza, high dose seasonal, preservative-free Aamir Dao DO Work Phone: [facility] 06-11-2016 influenza virus vaccine, split virus (incl. purified surface antigen) Kyle Gottlieb Other [facility] Other 06-11-2016 influenza virus vaccine, unspecified formulation [facility] 06-11-2016 influenza, high dose seasonal, preservative-free Aamir Dao DO Work Phone: [facility] 06-13-2015 influenza virus vaccine, split virus (incl. purified surface antigen) Kyle Gottlieb Other [facility] Other 06-13-2015 influenza virus vaccine, unspecified formulation [facility] 06-13-2015 pneumococcal conjuga te vaccine, 13 valent Kyle Gottlieb Other [facility] 06-13-2015 pneumococcal Conjugate, unspecified formulation; Translations: [Need for prophylactic vaccination against Streptococcus pneumoniae (pneumococcus)] Kyle Gottlieb Other [facility] Other 06-07-2013 tetanus and diphther ia toxoids, adsorbed, preservative free, for adult use (5 Lf of tetanus toxoid and 2 Lf of diphtheria toxoid) Kyle Gottlieb Other [facility] 06-13-2009 pneumococcal polysaccharide vaccine, 23 valent Kyle Micah Other [facility] NEGATED: Highlighted row has not occurred!05-16-2020 influenza virus vaccine, split virus (incl. purified surface antigen) Kyle Gottlieb Other [facility] [employer] Other Payers Date Payer Category Payer Private Health Insurance [id number] 1996 Medicare [id number] 1959 Medicare [id number] 2.1 [id number] 1959 Private Health Insurance [id number] 1942 Unknown [id number] 2.16.84 0.1.169093.3.579.2.593 1942 Unknown [id number] 2.16.84 0.1.627457.3.579.2.593 1942 Unknown [id number] 2.16.84 0.1.861406.3.579.2.593 1942 Unknown [id number] 2.16.84 0.1.250678.3.579.2.593 1942 Unknown [id number] 2.16.84 0.1.933076.3.579.2.593 1942 Unknown [id number] 2.16.84 0.1.011890.3.579.2.593 1942 Unknown [id number] 2.16.8 40.1.791996.3.579.2.1259 1942 Unknown [id number] 2.16.8 40.1.595272.3.579.2.1259 1942 Unknown [id number] 2.16.8 40.1.959345.3.579.2.1259 1942 Unknown [id number] 2.16.8 40.1.175817.3.579.2.1259 1942 Unknown [id number] 2.16.8 40.1.890593.3.579.2.1259 1942 Unknown [id number] 2.16.84 0.1.352095.3.579.2.1259 1942 Unknown [id number] 2.16.84 0.1.927086.3.579.2.1259 1942 Unknown [id number] 2.16.84 0.1.140081.3.579.2.1259 1942 Unknown [id number] 2.16.84 0.1.350199.3.579.2.1259 1942 Unknown [id number] 2.16.84 0.1.690794.3.579.2.1259 1942 Unknown [id number] 2.16.84 0.1.796004.3.579.2.1259 Self-pay Self Pay [id number] Social History Date Type Detail Facility Unknown if ever smoked [facility] [employer] Other Start: 04-28-2023 End: 05-09-2025 Sex Assigned At [facility] Other Start: 11-28-2021 End: 09-17-2023 Tobacco smoking status PRIS Ex-smoker (finding) [facility] Start: 1940 Sex Assigned At Female [facility] Start: 02-16-2023 Tobacco smoking stat [facility] Never smoked tobacco [facility] Start: 02-16-2023 Tobacco use and exposure Smokeless tobacco non-user [facility] Start: 08-10-2023 End: 05-22-2025 Alcohol intake Lifetime non-drinker (finding) [facility] Start: 04-28-2023 End: 05-09-2025 History of Social function [facility] How often to you hav e a drink containing alcohol? Never [facility] How many standard drinks containing alcohol do you have on a typical day? Patient does not drink [facility] Start: 08-10-2023 Alcohol Comment caffeine intak e: 1-2 cups per day; pop [facility] Start: 1940 Sex Assigned At Not on file [facility] Start: 07-20-2024 End: 01-19-2025 Sex Female (finding) [facility] Functional Status Date Assessment Result Facility 05-09-2025 Total score [AUDIT-C] 0 05/09/20 11:36 AM EDT Yakelin Cowan MA [facility] 05-09-2025 Patient Health Quest ionnaire 2 item (PHQ-2) [Reported] Formerly [facility] Clinical Notes 11-14-2021 to 05-22-2025 Shivam Ponce MD - 05/22/2025 2:00 PM EDTYesica Hernando MARIA ELENA - 05/09/2025 11:30 AM EDT Note Date & Type Note Facility 05-22-2025 History of Presen t illness Narrative Images from the original note were not included. Subjective Gina Pierre is a 84 y.o. female who presents for Bursitis (Trochanteric bursitis of right hip) and Back Pain (L5/S1) History of Present Illness The patient is seen in the [facility] neurology clinic on 05/22/2025. Since last seen, she has been complaining of significant neck as well as low back pain. She also has been noticing increased episodes of lightheadedness when standing up too quickly or when sitting for prolonged periods of time. The patient states neck pain is worse with any type of side to side head rotation, also worse with extension greater than flexion. Side to side head tilt is also decreased at 30 degrees bilaterally. The patient states low back pain has also been worse, bursa pain is seen bilaterally. This is worse with any type of standing for prolonged periods of time, any type of bending or twisting type movements which will exacerbate her symptoms. The patient states she is here today for brachial as well as bursa injections bilaterally. The patient was injected without complications. She will follow up in the next 8 weeks or sooner if there is any change in her above symptoms. In addition, she also has multiple sclerosis. This has been stable, not currently on any disease modifying therapy. Next number, the patient also has issues with orthostatic intolerance, I will start fludrocortisone 100 mcg at bedtime to see if it helps her symptoms. Review of Systems Const: Denies appetite change, fever, chills. Allergy: [...] positive findings, which shall supersede the foregoing. Objective Blood pressure 122/70, resp. rate 18, weight 146 lb 12.8 oz, SpO2 98%. Physical Exam Results Brachial Plexus injection After explaining the risks, [...] dressing was applied on the injection site. The Procedure was done by Dr. Shivam Ponce. Bursa Injection After explaining the risks, complications, [...] Band-Aid dressing was applied on the injection site.The Procedure was done by Dr. Shivam Ponce. This note was scribed by Angel Jean-Baptiste(R) acting under the direction of Shivam Ponce MD. The content has been reviewed and confirmed for accuracy by Shivam Ponce MD Assessment & Plan 1. Orthostatic intolerance. She reports increased episodes of lightheadedness when standing up too quickly or sitting for prolonged periods. Fludrocortisone 100 mcg at bedtime will be started to help manage her symptoms. 2. Neck pain. She experiences significant neck pain, worsened by [id number] head rotation and extension. Brachial injections were administered bilaterally without complications. 3. Low back pain. She reports worsening low back pain, exacerbated by prolonged standing, bending, or twisting movements. Bursa injections were administered bilaterally without complications. 4. Multiple sclerosis. Her multiple sclerosis is currently stable and she is not on any disease-modifying therapy. Follow-up The patient will follow up in the next 8 weeks or sooner if there is any change in her symptoms. PROCEDURE Brachial and bursa injections were administered bilaterally without complications. documented in this encounter [facility] 05-09-2025 History of Presen t illness Narrative Images from the original note were not included. Aamir Dao, DO Obstetrics and Gynecology Gina Pierre 1940 05/09/25 [id number] Yearly Wellness Exam Chief Complaint Patient presents with Gynecologic Exam Medicare yearly. LMP: SHANTA BSO 1984 HRT: Estrace cream Last pap 04-28-23 neg. [place] [facility] [place] Denies breast, urinary, or bowel concerns. Visit Vitals BP 128/84 Ht 5' 2.75 Wt 142 lb BMI 25.36 kg/m OB Status Hysterectomy Smoking Status Never BSA 1.69 m OB History Para Term AB Living 1 1 1 1 SAB IAB Ectopic Multiple Live Births 1 # Outcome Date GA Lbr Chema/2nd Weight Sex Type Anes PTL Lv 1 3 lb 10.5 oz Vag-Spont MAL Comments: 6.5 months Current Outpatient Medications Medication Sig Dispense Refill benazepril (Lotensin) 10 MG tablet omeprazole (PriLOSEC) [address] capsule sertraline (Zoloft) 25 MG tablet Take 25 mg by mouth Daily Calcium Carbonate-Vit D-Min (Calcium 600+D Plus Minerals) 600-400 MG-UNIT chewable tablet every 12 (twelve) hours. cetirizine (ZyrTEC) 10 MG tablet 1 (one) time each day at the same time. cyproheptadine (Periactin) 4 MG tablet Take 0.5 tablets (2 mg) by mouth at bedtime 45 tablet 3 dexAMETHasone (Decadron) 2 MG tablet Take 1 tablet (2 mg) by mouth in the morning and 1 tablet (2 mg) in the evening. Take with meals. Do all this for 10 days. 20 tablet 0 dexAMETHasone (Decadron) 2 MG tablet Take 1 [...] g vaginally once weekly. 42.5 g 1 fenofibrate (Triglide) 160 MG tablet fenofibrate micronized [...] BEDTIME ipratropium (Atrovent) 0.06 % nasal spray Administer 2 sprays into each nostril in the morning and 2 sprays in the evening and 2 sprays before bedtime. 45 mL 6 OXcarbazepine (Trileptal) 300 MG tablet take 1 tablet (300MG) by ORAL route every day Oral pantoprazole (Protonix) 40 MG EC tablet 1 (one) time each day at the same time. Proctozone-HC 2.5 % rectal cream tiZANidine (Zanaflex) 4 MG capsule take 1 tablet (4MG) by ORAL route every bedtime Oral tiZANidine (Zanaflex) 4 MG tablet Take 1 tablet (4 mg) by mouth at bedtime for 10 days 30 tablet 3 valACYclovir (Valtrex) 500 MG tablet TAKE 1 TABLET BY MOUTH THREE TIMES A DAY DIRECTED Current Facility-Administered Medications Medication Dose Route Frequency Provider Last Rate Last Admin bupivacaine (Marcaine) 0.5 % injection 5 mg 1 mL Injection Once Shivam Ponce MD dexAMETHasone sod phos (Decadron) injection 4 mg 1 mL Injection Once Shivam Ponce MD Allergies Allergen Reactions Bactrim [Sulfamethoxazole-Trimethoprim] Corticosteroids Unknown Macrolides And Ketolides Unknown Naproxen Unknown Sulfa Antibiotics Unknown Sulfamethoxazole Unknown Trimethoprim Unknown Amoxicillin Rash Clarithromycin Rash Levofloxacin Rash Past Surgical History: Procedure Laterality Date APPENDECTOMY CATARACT EXTRACTION, BILATERAL COLONOSCOPY EGD 2013 TOTAL ABDOMINAL HYSTERECTOMY W/ BILATERAL SALPINGOOPHORECTOMY 1985 VAGINAL DELIVERY Past Medical History: Diagnosis Date Cataracts, bilateral 2009 GERD (gastroesophageal reflux disease) Hiatal hernia HLD (hyperlipidemia) Hx of migraine headaches IBS (irritable bowel syndrome) Multiple sclerosis (HCC) 1993 ROS Const: Denies appetite change, fever, [...] palpable bilaterally, normal nipples bilaterally - everted -fatty replaced - dense - well supported- axilla negative. ABDOMEN: soft, nontender, nondistended, no masses palpable. BACK: no costovertebral angle tenderness, no obvious scoliosis/kyphosis. FEMALE GENITOURINARY:bunghole borer in room - good hormone - normal vaginal mucousa - cuff well supported - no studding or induration - side soto - adnex negative - stenotic introitius/vault RECTAL:normal tone , no masses palpable , only small external hemorrhoids. EXTREMITIES no edema. NEUROLOGIC: alert and oriented. PSYCH: cooperative with exam. ICD-10-CM 1. Encounter for gynecological examination without abnormal finding Z01.419 Pelvic and breast exam completed. Findings of today's exam discussed with the patient. Continue MSBE. Ca/Vit D recommendations reviewed with the patient. The patient is to contact the office with any changes to her gynecological condition or any changes with breast or bleeding. The patient is to return in 1 year or as needed She voiced weight gain from Neuro that is attributes. 2. Encounter for Papanicolaou smear of vagina Z12.72 IGP,rfxAptima HPV all,16/18,45 Thinprep collected. Will notify patient if results are abnormal. 3. Breast cancer screening by mammogram Z12.31 Bilateral screening mammogram with tomosynthesis Screening mammogram ordered. Patient to call and schedule. 4. Hormone replacement therapy Z79.890 estradiol (Estrace) 0.1 MG/GM vaginal cream Tolerating well Entered by Yesica Villagomez MA acting as scribe for Dr. Aamir Dao. Signature Yesica Villagomez MA Date 05/09/25 . Time 11:59 AM . The documentation recorded by the scribe accurately reflects the service(s) I personally performed and the decisions I made. Signature Jan Dao D.O. Date 05/09/25 Time 5:00PM. documented in this encounter [facility] 04-27-2025 Evaluation note Diagnosis Onset Date Resolution PA (pernicious anemia) acute April 27 1:33pm [facility] Work Phone: 1(812) 260-641808-21-2025 Evaluation note* Diagnosis Onset Date Resolution Status Admit Date PA (pernicious anemia) acute Au 2024 1:33pm Depression, major, recurrent, mild a cute June 19, 2025 10:58am NABIL (generalized anxiety disorder) a cute June 19, 2025 10:58am Gastroesophageal reflux dise ase with esophagitis without hemorrhage acute June 19, 2025 10:58am Hypertriglyceridemia acute 2024 10:58am IBS (irritable bowel syndrome) acute June 19, 2025 10:58am Medicare annual wellness vis it, subsequent acute June 19 10:58am Primary hypertension acute 2024 10:58am Screening mammogram for [facility] cancer acute June 19 10:58am Stage 3a chronic kidney disease acut e June 19, 2025 10:58am [facility] Work Phone: [phone]) 274-868508-04-2025 History of Present illness Narrative* Mel Hayes MD - 04/10/2025 12:20 PM EDT Gina Pierre returns to the office today and notes that she has been off the nasal ipratropium for a while because she was hospitalized for other reasons and was taken off of this med and she ran out of this medication. She was treated for pneumonia in the hospital. She then developed sepsis from this and was at [facility]. She feels that the nasal ipratropium stopped the foam and mucous that she has been spitting up. She takes Cetirizine 10 mg per day. Cetirizine nasal ipratropium EXAM The patient appears comfortable in the office today. Lungs are clear to auscultation bilaterally. The oral mucosa is pink and healthy without any lesions or ulcers. The palate elevates in the midline. The nasal mucosa is pink and healthy. There is no epistaxis mucopus or nasal polyposis noted. The nasal septum is approximately in the midline. The skin is clear of any lesions, excoriations, or erythema. IMPRESSION: chronic rhinitis - nasal ipratropium to [facility] in [place]. Follow-up in 12 months or sooner should problems arise. We agreed she will continue Cetirizine 10 mg per day. documented in this encounterProgress [facility] [id number] History of Present illness Narrative* Shivam Ponce MD - 03/22/2025 2:00 PM EDT Images from the original note were not included. Subjective Gina Pierre is a 84 y.o. female who presents for neck, mid and lower back pain History of Present Illness The patient presents for evaluation of multiple sclerosis, fatigue, and back pain. She reports experiencing pain in her back today, which she describes as severe. The pain is not localized to one area but is present in the upper, middle, and lower regions of her back. She has previously received injections for this issue. She also mentions feeling unwell overall, with a sensation of leaning to the right. She is uncertain if these symptoms are related to her medication or her multiple sclerosis (MS). She has been off work since 03/10/2025 due to these health concerns. She is currently taking cyproheptadine, which wasprescribed during her last visit. She takes half a tablet of cyproheptadine at 11:15 PM. She has been using tizanidine as needed but has not taken it recently. She continues to take Trileptal at bedtime. She takes another medication at 8:00 PM, oxcarbazepine at 9:00 PM, and Trileptal at 10:00 PM. She spaces out her medications to avoid taking them all at once. She has been off cetirizine and ipratropium nasal spray for about 3 weeks. She expresses concern about potential dizziness from the antihistamine. She is currently taking cyproheptadine, which was prescribed during her last visit. She takes half a tablet of cyproheptadine at 11:15 PM. She is experiencing fatigue, sleeping between 11 to 12 hours daily. She is unsure if this is a sideeffect of her medication or a symptom of her MS. SOCIAL HISTORY: Sleep: She is experiencing fatigue, sleeping between 11 to 12 hours daily. MEDICATIONS CURRENT MEDS: Cyproheptadine Half tablet Oral Every night Ipratropium Nasal Trileptal Oral At bedtime Oxcarbazepine Oral 9:00 PM PREVIOUS MEDS: Tizanidine Oral As needed Cetirizine End Date: Approximately 3 weeks ago Review of Systems Const: Denies appetite change, fever, chills. Allergy: [...] positive findings, which shall supersede the foregoing. Objective There were no vitals taken for this visit. Physical Exam GENERAL EXAMINATION Appearance: in no acute distress, well developed, well nourished. Head: normocephalic, atraumatic. Eyes: pupils equal, round, reactive to light and accommodation. Ears: normal. Mouth: mucosa moist. Throat: clear. Neck: neck supple, full range of motion, no cervical lymphadenopathy. Skin: no suspicious lesions, warm and dry. Heart: no murmurs, regular rate and rhythm, S1, S2 normal. Lungs: clear to auscultation bilaterally. Abdomen: normal, bowel sounds present, soft, nontender, nondistended. Extremities: no clubbing, cyanosis, or edema. NEUROLOGICAL EXAMINATION Mental Status: The patient is alert and oriented to person, place, and time. Except as noted, thought content, form, and comprehension was normal. Phonation, articulation, resonance, and prosody are normal. Cranial Nerves: Pupils were 4.0 millimeters, equal, round, and reactive to light and accommodation,both directly and consensually. Visual mesa were full by confrontation. There was no ptosis; extra-ocular movements were full; and there was no nystagmus. Funduscopic exam is normal. Masseters are of normal strength. Facial movement is normal. Hearing is grossly intact. There is no dysarthria. The gag reflex is equal bilaterally. Sternocleidomastoids and trapezii are of normal strength. The tongue protrudes in the midline. Motor: Muscle testing was performed in all four extremities, including at least head of sales and marketing, finger abductors, biceps, triceps, deltoid, toe flexors and extensors, tibialis anterior, triceps surae, quadriceps femoris, biceps femoris, and iliopsoases. Tone is normal. Muscle bulk is normal. Fasciculations are not seen . Pronator drift was not evident. Sensory: Sensation to touch, temperature, and vibration was normal in the arms, legs and face. Romberg is negative. Reflexes: Biceps, triceps, brachioradialis are 2/4 bilaterally. Patellar and Achilles reflexes are 2/4 bilaterally. Plantar responses were flexor bilaterally. Coordination: Dysmetria and dysdiadochokinesia are absent. Tremor is absent; dystonia is absent; chorea is absent. Gait And Station: Station and gait are normal. Apraxia and spasticity are not evident. Arm swing isnormal. Toe, heel, and tandem walking are performed without difficulty. Musculoskeletal: Trigger-point tenderness was absent. There is no spasm of the trapezii or paraspinals. Results Brachial Plexus injection After explaining the risks, [...] needle was advanced and the patient received 0.5 cc of Bupivacaine 0.5% and 0.5 cc Dexamethasone 4mg. The needle was removed. The patient tolerated the procedure well and without complications. A Band-Aid dressing was applied on the injection site. Ultrasound images were placed in the media folder. The Procedure was done by Dr. Shivam Ponce. Trigger Injection After explaining the risks, complications, and benefits of the procedure, the patient leaned over exam table with arms to support self. Allergies were reviewed, the consent was signed. After palpating at the most tender part, then marking that area for injections a sterile technique and surface anesthetic were used. A 30 gauge 1/2 spinal needle was inserted. The patient received the trigger pointinjection in the bilateral thoracic paraspinal muscles at levels T8 with a total of 0.5 cc Bupivacaine 0.5% and 0.5 cc Dexamethasone 4mg. A Band-Aid dressing was applied on the injection site. The patient tolerated the procedure well. Ultrasound Images were placed in the media folder. The Procedurewas done by Dr. Shivam Ponce. Trigger Injection After explaining the risks, complications, and benefits of the procedure, the patient leaned over exam table with arms to support self. Allergies were reviewed, the consent was signed. After palpating at the most tender part, then marking that area for injections a sterile technique and surface anesthetic were used. A 25 gauge 1 1/2 spinal needle was inserted. The patient received the trigger point injection in the bilateral lumbar paraspinal muscles at levels L5/S1with a total of 3 cc Bupivacaine 0.5% and 1 cc Dexamethasone 4mg. A Band- Aid dressing was applied on the injection site. The patient tolerated the procedure well. Ultrasound Images were placed in the media folder. The Procedure was done by Dr. Shivam Ponce. This note was scribed by Angel Jean-Baptiste(Vikki) acting under the direction of Shivam Ponce MD. Thecontent has been reviewed and confirmed for accuracy by Shivam Ponce MD Assessment & Plan 1. Multiple Sclerosis. She reports feeling off balance and experiencing increased fatigue. She will continue taking cyproheptadine and ipratropium nasal spray. If fatigue worsens, she should discontinue cyproheptadine and resume her previous antihistamine regimen. A work slip will be provided to keep her off work for a few months due to her MS. 2. Fatigue. The fatigue may be related to her current medication regimen or her MS. She will try taking cyproheptadine every other night to see if it reduces sleepiness. If dizziness occurs, she should revert totaking it every night at half the dose. 3. Back Pain. She reports significant pain in her lower, mid, and upper back. Injections will be administered to manage the pain. 4. Medication Management. She is currently taking Trileptal (oxcarbazepine) at bedtime and uses tizanidine as needed. She will continue these medications as prescribed. documented in this encounterProgress West [id number] Evaluation note* Diagnosis Onset Date Resolution Status Admit Date PA (pernicious anemia) acute Ju ne 2024 1:55pm PA (pernicious anemia) acute Au irene 2024 1:33pm [facility] Work Phone: 1(881) 935-842606-11-2025 Telephone encounter Note* Telephone Encounter - Soheila Kemp NP - 02/15/2025 2:24 PM EDT Patient leaves voicemail that she is not doing well at all. She was just in hospital for dizziness and is dizzy again. Kris you just saw her on 02/13 for injections. Do you want me to start her on glycopyrrolate? Cypro? [facility] Work Phone: [phone] Miscellaneous Notes* Telephone Encounter - Soheila Kemp NP - 02/15/2025 2:24 PM EDT Patient leaves voicemail that she is not doing well at all. She was just in hospital for dizziness and is dizzy again. Kris you just saw her on 02/13 for injections. Do you want me to start her on glycopyrrolate? Cypro? documented in this encounterProgress West [id number] History of Present illness Narrative* Shivam Ponce MD - 02/13/2025 9:00 AM EDT Images from the original note were not included. CHIEF COMPLAINT REASON FOR VISIT: Patient is here today for follow-up of the diagnosis below. I am following the plan of care established by Dr Ponce, 01/04/25, who is present in the office today HPI: MS -She states it flared up her MS. -She states she injured her shoulder and her neck. -She states she is having a lot of MS symptoms right now. -She states she has been having trouble with speech. -She is struggling with finding the words. -She feels off and off with balance. -She states she has no energy. -She has had increased numbnness and tingling in her hands, feet, and legs. -She feels like it there is something going on in her head like something is not quite right. -She has been off work since May 11. -She states when she has the flares her vision does get affected and becomes slight blurry but it is not all the time. -Denies any headaches. -She states the left side of her head was swollen for a week after she fell. She states she did notlose consciousness. She states she knew what was happening but she could not stop it. . CHRONIC PAIN -Gets bilateral bursa and bilateral brachial injections. -She states she has had mostly pain on the left side of her neck. CURRENT MEDICATIONS: ALLERGIES/DISCONTINUE MEDICATIONS Current Outpatient Medications [...] (gastroesophageal reflux disease) Hiatal hernia HLD (hyperlipidemia) ([facility]) Hx of migraine headaches IBS (irritable bowel syndrome) Multiple sclerosis ([facility]) 1993 Past Surgical History: Procedure Laterality Date [...] for agitation, confusion and suicidal ideas. OBJECTIVE: 12/08/2024 11:43 AM 10/14/2024 11:24 AM 09/18/2024 11:59 PM Vitals BMI 23.76 kg/m2 23.76 kg/m2 23.76 kg/m2 BSA (m2) 1.63 m2 1.63 m2 1.63 m2 Systolic 136 150 180 Diastolic 71 84 84 Heart Rate 59 65 Height (in) 5' 2.5 Weight (lb) 132 132 132 EXAM: Neurological Exam Mental Status Awake, alert [...] reflexes: Erica's absent. Ankle clonus absent. Coordination Bhtdyc-gx-vevj, rapid alternating movements and aksj-pj-jlfu normal bilaterally without dysmetria. Gait Normal casual, [...] using sterile technique, and surface anesthetic; a 30gauge 1/2 spinal needle was advanced and the patient received1 cc of Bupivacaine 0.50% and 1 cc Dexamethasone 4mg. The needle was removed. The patient toleratedthe procedure well and without complications. A Band-Aid dressing was applied on the injection site. Ultrasound images were placed in the media folder.The Procedure was done by Dr. Shivam Ponce. Bursa Injection After explaining the risks, complications, [...] images were placed in the media folder. The Procedure was done by Dr. Shivam Ponce. This note was scribed by Angel Jean-Baptiste(Vikki) acting under the direction of Shivam Ponce MD. Thecontent has been reviewed and confirmed for accuracy by Shivam Ponce MD ASSESSMENT AND PLAN: CT head/brain wo marleni (05/20/2024) HISTORY: CONCUSSION S06.0XAA, head injury one [...] the injections if needed. documented in this encounterProgress West [id number] Evaluation note* Diagnosis Onset Date Resolution Status Admit Date Depression, major, recurrent, mild a cute January 19, 2025 10:55am NABIL (generalized anxiety disorder) a cute January 19, 2025 10:55am Gastroesophageal reflux dise ase with esophagitis without hemorrhage acute January 19, 2025 1 0:55am IBS (irritable bowel syndrome) acute January 19, 2025 10:55am Primary hypertension acute January 19, 2025 10:55am Stage 3a chronic kidney disease acut e January 19, 2025 10:55am PA (pernicious anemia) acute Ju ne 2024 1:55pm [facility] Work Phone: [phone]) 961-922704-03-2025 History of Present illness Narrative* Shivam Ponce MD - 12/08/2024 11:20 AM EDT Images from the original note were not included. CHIEF COMPLAINT REASON FOR VISIT : Injections HPI: Gina Pierre is a 84 y.o. female who presents for bilateral bursa and bilateral brachial. Her pain today is 8/10. 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 She now has to take time off of work when this happens as she can not kick it. She is also thinking of quitting at the [employer] store as it is not fun anymore. 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 CURRENT MEDICATIONS: ALLERGIES/DISCONTINUE MEDICATIONS [...] (gastroesophageal reflux disease) Hiatal hernia HLD (hyperlipidemia) ([facility]) Hx of migraine headaches IBS (irritable bowel syndrome) Multiple sclerosis ([facility]) 1993 Past Surgical History: Procedure Laterality Date [...] 4mg. The needle was removed. The patient toleratedthe procedure well and without complications. A Band-Aid [...] the injections if needed. documented in this encounterProgress West [id number] Evaluation note* Diagnosis Onset Date Resolution Status Admit Date Acute bronchitis due to othe r specified organisms acute November 15, 2024 2:28pm Mucopurulent chronic bronchitis acut e November 15, 2024 2:28pm PA (pernicious anemia) acute Ma rch 2024 2:28pm PA (pernicious anemia) acute Ap ril 2024 11:40am Depression, major, recurrent, mild a cute January 19, 2025 10:55am NABIL (generalized anxiety disorder) a cute January 19, 2025 10:55am Gastroesophageal reflux dise ase with esophagitis without hemorrhage acute January 19, 2025 1 0:55am IBS (irritable bowel syndrome) acute January 19, 2025 10:55am Primary hypertension acute January 19, 2025 10:55am Stage 3a chronic kidney disease acut e January 19, 2025 10:55am [facility] Work Phone: 1(920) 402-912902-07-2025 History of Present illness Narrative* Shivam Ponce [...] (gastroesophageal reflux disease) Hiatal hernia HLD (hyperlipidemia) ([facility]) Hx of migraine headaches IBS (irritable bowel syndrome) Multiple sclerosis ([facility]) 1993 Past Surgical History: Procedure Laterality Date [...] reflexes: Erica's absent. Ankle clonus absent. Coordination Ufasnk-zi-jlgq, rapid alternating movements and cczs-fb-ncgh normal bilaterally without dysmetria. Gait Normal casual, [...] the injections if needed. documented in this encounterProgress West [id number] Evaluation note* Diagnosis Onset Date Resolution Status [...] 15, 2024 2:28pm PA (pernicious anemia) acute [facility] 2024 2:28pm [facility] Work Phone: 1(450) 987-695101-08-2025 History of Present illness Narrative* Shivam Ponce [...] (gastroesophageal reflux disease) Hiatal hernia HLD (hyperlipidemia) ([facility]) Hx of migraine headaches IBS (irritable bowel syndrome) Multiple sclerosis ([facility]) 1993 Past Surgical History: Procedure Laterality Date [...] reflexes: Erica's absent. Ankle clonus absent. Coordination Tdytjd-gp-fsqj, rapid alternating movements and agzz-vn-uofe normal bilaterally without dysmetria. Gait Normal casual, [...] her injections if needed. documented in this encounterProgress West [id number] Evaluation note* Diagnosis Onset Date Resolution Status Admit Date Primary hypertension acute Dece 2023 2:23pm Stage 3a chronic kidney disease acut e September 05, 2024 2:23pm Abdominal pain deleted August 092023 2:23pm Acute diverticulitis deleted Dece 2023 2:23pm Dehydration deleted August 2:23pm [facility], [facility] Primary hypertension acute 2024 1:59pm [...] 15, 2024 2:28pm PA (pernicious anemia) acute [facility] 2024 2:28pm [facility] Work Phone: 1(615) 639-270612-12-2024 History of Present illness Narrative* Cami Desir RT. R - 08/18/2024 11:40 AM EST Images from [...] (gastroesophageal reflux disease) Hiatal hernia HLD (hyperlipidemia) ([facility]) Hx of migraine headaches IBS (irritable bowel syndrome) Multiple sclerosis ([facility]) 1993 Past Surgical History: Procedure Laterality Date [...] folder. ASSESSMENT AND PLAN: documented in this [facility]11-13-2024 Evaluation note* Diagnosis Onset Date [...] with esophagitis without hemorrhage acute August 16, 024 11:01am Abdominal pain acute August 092023 2:23pm Acute diverticulitis acute Dece 2023 2:23pm Dehydration acute August 2:23pm Primary hypertension acute Dece 2023 2:23pm Stage 3a chronic kidney disease acut e September 05, 2024 2:23pm [facility] Work Phone: 1(652) 718-787911-13-2024 Evaluation note* Diagnosis Onset Date Resolution Status Admit Date Concussion acute July 20, 2024 10:58am Dizzy spells acute July 10:58am Fatigue acute July 20, 2024 10:58am Primary hypertension acute Nove 2023 10:58am Stage 3a chronic kidney disease acut e July 20, 2024 10:58am Abdominal pain acute August 072023 11:01am Diarrhea acute August 16, 2024 11:01am Diverticulosis acute August 072023 11:01am Gastroesophageal reflux dise ase with esophagitis without hemorrhage acute August 16, 024 11:01am Abdominal pain acute August 092023 2:23pm Acute diverticulitis acute Dece 2023 2:23pm Dehydration acute August 2:23pm Primary hypertension acute Dece 2023 2:23pm Stage 3a chronic kidney disease acut e September 05, 2024 2:23pm Acute diverticulitis acute Eren 2024 1:59pm Anemia, unspecified acute 2024 1:59pm Diverticulosis acute September 1:59pm Primary hypertension acute Eren [email or web address] 1:59pm Stage 3a chronic kidney disease acut e September 13, 2024 1:59pm [facility] Work Phone: 1(349) 732-932311-13-2024 Evaluation note* Diagnosis Onset Date Resolution Status Admit Date Primary hypertension acute Nove mber 13th, 2024 10:58am Stage 3a chronic kidney disease acut e July 20, 2024 10:58am Concussion deleted July 20, 2024 10:58am Dizzy spells deleted July 10:58am Fatigue deleted July 20, 2024 10:58am Diverticulosis acute August 072023 11:01am Gastroesophageal reflux dise ase with esophagitis without hemorrhage acute August 16 024 11:01am Abdominal pain deleted August 072023 11:01am Diarrhea deleted August 16, 2024 11:01am Primary hypertension acute 2023 2:23pm Stage 3a chronic kidney disease acut e September 05, 2024 2:23pm Abdominal pain deleted August 092023 2:23pm Acute diverticulitis deleted 2023 2:23pm Dehydration deleted August 2:23pm Cervical strain, acute acute [facility] 2024 1:59pm Hypocalcemia acute September 13, 2024 1:59pm Hypokalemia acute September 13, 2024 1:59pm Primary hypertension acute 2024 1:59pm Stage 3a chronic kidney disease acut e September 13, 2024 1:59pm Acute diverticulitis deleted 2024 1:59pm Anemia, unspecified deleted 2024 1:59pm Primary hypertension acute Eren 2024 9:29am Stage 3a chronic kidney disease acut e October 04, 2024 9:29am [facility] Work Phone: 1(751) 303-994711-13-2024 Evaluation note* Diagnosis Onset Date Resolution Status Admit Date Primary hypertension acute 2023 10:58am Stage 3a chronic kidney disease acut e July 20, 2024 10:58am Concussion deleted July 20, 2024 10:58am Dizzy spells deleted July 10:58am Fatigue deleted July 20, 2024 10:58am Diverticulosis acute August 072023 11:01am Gastroesophageal reflux dise ase with esophagitis without hemorrhage acute August 16 024 11:01am Abdominal pain deleted August 072023 11:01am Diarrhea deleted August 16, 2024 11:01am Primary hypertension acute Dece 2023 2:23pm Stage 3a chronic kidney disease acut e September 05, 2024 2:23pm Abdominal pain deleted August 092023 2:23pm Acute diverticulitis deleted 2023 2:23pm Dehydration deleted August 2:23pm Cervical strain, acute acute Ja ary 2024 1:59pm Primary hypertension acute 2024 1:59pm [...] Depression, major, recurrent , mild acute October 18, 025 11:01am NABIL (generalized anxiety disorder) acute October 18 025 11:01am Gastroesophageal reflux dise ase with esophagitis without hemorrhage acute October 18 025 11:01am Nausea acute October 18, 2024 11:01am Primary hypertension acute Febr ua2024 11:01am Stage 3a chronic kidney disease acut e October 18, 2024 11:01am [facility] Work Phone: 1(462) 452-762910-31-2024 History of Present illness Narrative* Cami Desir RT. R - 07/07/2024 11:20 AM EDT [...] (gastroesophageal reflux disease) Hiatal hernia HLD (hyperlipidemia) ([facility]) Hx of migraine headaches IBS (irritable bowel syndrome) Multiple sclerosis ([facility]) 1993 Past Surgical History: Procedure Laterality Date [...] injections a this time. documented in this [facility]09-26-2024 Telephone encounter Note* Telephone Encounter - Trixie Koenig - 06/02/2024 8:52 AM EDT Pt requested a refill of the decadron tablets be sent to [id number] [place] [facility] [id number] Miscellaneous Notes* Telephone Encounter - Trixie Koenig - 06/02/2024 8:52 AM EDT Pt requested a refill of the decadron tablets be sent to [id number] [place] documented in this [facility]09-25-2024 History of Present illness Narrative* Roxane Wallis [...] concussion on May 13. She was in [facility]. She states it flared up her [...] (gastroesophageal reflux disease) Hiatal hernia HLD (hyperlipidemia) ([facility]) Hx of migraine headaches IBS (irritable bowel syndrome) Multiple sclerosis ([facility]) 1993 Past Surgical History: Procedure Laterality Date [...] reflexes: Erica's absent. Ankle clonus absent. Coordination Wrkjjm-bk-riut, rapid alternating movements and gmmy-tg-wzif normal bilaterally without dysmetria. Gait Normal casual, [...] folder. ASSESSMENT AND PLAN: CT head/brain wo [facility] (05/20/2024) HISTORY: CONCUSSION S06.0XAA, head injury one [...] the injections if needed. documented in this encounterProgress West [id number] Evaluation note* Diagnosis Onset Date Resolution Status [...] chronic kidney disease acute July 20 10:58am [facility] Work Phone: 1(308) 213-269709-04-2024 Evaluation note* Diagnosis Onset Date Resolution Status [...] chronic kidney disease acute July 20 10:58am [facility] Work Phone: 1(357) 768-585708-27-2024 History of Present illness Narrative* Yesica Villagomez MA - 05/03/2024 11:15 AM EDT Images from the original note were not included. Aamir Dao, DO Obstetrics and Gynecology Gina Pierre 1940 05/03/24 [id number] Yearly Wellness Exam Chief Complaint Patient presents with Gynecologic Exam Medicare off year. LMP: SHANTA BSO 1984 HRT: Premarin cream - satisfied, but would like to discuss how long to be on it Last pap 04-28-23 neg. [place] [facility] Denies breast, urinary, or bowel concerns. Visit [...] (gastroesophageal reflux disease) Hiatal hernia HLD (hyperlipidemia) ([facility]) Hx of migraine headaches IBS (irritable bowel syndrome) Multiple sclerosis ([facility]) 1993 ROS Const: Denies appetite change, fever, [...] costovertebral angle tenderness, no obvious scoliosis/kyphosis. 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 Could maintainhormone using once weekly. 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 Entered by Yesica Villagomez MA acting as scribe for Dr. Aamir Dao. Signature Yesica Villagomez MA Date 05/03/24 . Time 11:46 AM . The documentation recorded by the scribe accurately reflectsthe service(s) I personally performed and the decisions I made. Signature Jan DaoDSeanO. Date 05/03/24 Time 5:00PM. documented in this encounterProgress West [id number] Evaluation note* Diagnosis Onset Date Resolution Status Gastroesophageal reflux dise ase with esophagitis without hemorrhage acute Lumbar spondylosis acute PA (pernicious anemia) acute Primary hypertension acute Stage 3a chronic kidney disease acute Venous insufficiency (chronic) (peripheral) acute Acute sinusitis noneactive [facility] Work Phone: 1(613) 381-220104-22-2024 Evaluation note* Diagnosis Onset Date Resolution Status Gastroesophageal reflux dise ase with esophagitis without hemorrhage acute Lumbar spondylosis acute PA (pernicious anemia) acute Primary hypertension acute Stage 3a chronic kidney disease acute Venous insufficiency (chronic) (peripheral) acute Acute sinusitis noneactive [facility] Work Phone: 1(178) 285-469202-07-2024 History of Present illness Narrative* Shivam Ponce [...] (gastroesophageal reflux disease) Hiatal hernia HLD (hyperlipidemia) ([facility]) Hx of migraine headaches IBS (irritable bowel syndrome) Multiple sclerosis ([facility]) 1993 Past Surgical History: Procedure Laterality Date [...] reflexes: Erica's absent. Ankle clonus absent. Coordination Nvawco-nz-kxyc, rapid alternating movements and vufy-qq-lvnv normal bilaterally without dysmetria. Gait Normal casual, toe, heel and tandem gait. Romberg is absent. Assessment/Plan Diagnoses and all orders for this visit: Brachial plexus neuropathy Multiple sclerosis ([facility]) Gina Pierre is a 83 y.o. year [...] nerve dysfunction including polyneuropathy. documented in this [facility]01-11-2024 Evaluation note* Encounter Date Diagnosis Assessment Notes Treatment Notes Treatment Clinical Notes Sep, Acute non-recurrent maxillary sinusitis (ICD-10 - J01.00) Instructed to use Robitussin or Mucinex for cough, saline or Flonase NS for congestion, Tylenol for pain and fever. Sep, Multiple sclerosis (ICD-10 - G35) weakens her immune system placing her at risk for more seriou, prolonged illness [employer] [facility] [employer] Other 01-09-2024 Evaluation note* Encounter Date Diagnosis Assessment Notes Treatment Notes Treatment Clinical Notes Sep, Pernicious anemia (ICD-10 - D51.0) [facility] Other 12-22-2023 Evaluation note* Encounter Date Diagnosis Assessment Notes Treatment Notes Treatment Clinical Notes Aug, Flu-like symptoms (ICD-10 - R68.89) Aug, Acute non-recurrent maxillary sinusitis (ICD-10 - J01.00) [facility] Other 12-19-2023 Evaluation note* Encounter Date Diagnosis Assessment Notes Treatment Notes Treatment Clinical Notes Aug, Abdominal pain (ICD-10 - R10.9) Aug, Nausea & vomiting (ICD-10 - R11.2) Aug, GERD (gastroesophageal reflux disease) (ICD-10 - K21.9) Pt is doing well on the pantoprazole. Pt RTO YEARLY Aug, Early satiety (ICD-10 - R68.81) Aug, Loss of appetite (ICD-10 - R63.0) [facility] Other 12-07-2023 Evaluation note* Encounter Date Diagnosis Assessment Notes Treatment Notes Treatment Clinical Notes Aug, Pernicious anemia (ICD-10 - D51.0) [facility] Other 11-02-2023 Evaluation note* Encounter Date Diagnosis Assessment Notes Treatment Notes Treatment Clinical Notes Jul, Pernicious anemia (ICD-10 - D51.0) [facility] Other 10-02-2023 Evaluation note* Encounter Date Diagnosis Assessment Notes Treatment Notes Treatment Clinical Notes Jun, Pernicious anemia (ICD-10 - D51.0) [facility] Other 09-22-2023 Evaluation note* Encounter Date Diagnosis Assessment Notes Treatment Notes Treatment Clinical Notes May, Anemia, unspecified type (ICD-10 - D64.9) May, Fatigue, unspecified type (ICD-10 - R53.83) [facility] Other 09-20-2023 Evaluation note* Encounter Date Diagnosis [...] - R53.83) Check labs: CBC, B12, TSH [facility] Other 08-31-2023 Evaluation note* Encounter Date Diagnosis Assessment Notes Treatment Notes Treatment Clinical Notes Apr, Pernicious anemia (ICD-10 - D51.0) [facility] Other 07-31-2023 Evaluation note* Encounter Date Diagnosis Assessment Notes Treatment Notes Treatment Clinical Notes Mar, Pernicious anemia (ICD-10 - D51.0) [facility] Other 07-10-2023 Evaluation note* Encounter Date Diagnosis Assessment Notes Treatment Notes Treatment Clinical Notes Mar, Pernicious anemia (ICD-10 - D51.0) [facility] Other 07-07-2023 Evaluation note* Encounter Date Diagnosis Assessment Notes Treatment Notes Treatment Clinical Notes Mar, PA (pernicious anemia) (ICD-10 - D51.0) [facility] Other 07-05-2023 Evaluation note* Encounter Date Diagnosis Assessment Notes Treatment Notes Treatment Clinical Notes Mar, Acute pneumonia (ICD-10 - J18.9) Mar, Anemia, unspecified type (ICD-10 - D64.9) Mar, Stage 3a chronic kidney disease (ICD-10 - N18.31) [facility] Other 06-06-2023 Evaluation note* Encounter Date Diagnosis [...] FA supplement. Recheck FA/B12, CBC in month [facility] Other 05-30-2023 Evaluation note* Encounter Date Diagnosis Assessment Notes Treatment Notes Treatment Clinical Notes January, Acute pneumonia (ICD-10 - J18.9) January, Anemia, unspecified type (ICD-10 - D64.9) January, Stage 3a chronic kidney disease (ICD-10 - N18.31) [facility] Other 05-05-2023 Evaluation note* Encounter Date Diagnosis Assessment Notes Treatment Notes Treatment Clinical Notes January, Folic acid deficiency (ICD-10 - E53.8) [facility] Other 04-27-2023 Evaluation note* Encounter Date Diagnosis [...] and exerci se with continued statin therapy. [facility] Other 04-12-2023 Evaluation note* Encounter Date Diagnosis [...] Weight loss. Dec, Anasarca (ICD-10 - R60.1) [facility] Other 04-03-2023 Evaluation note* Encounter Date Diagnosis Assessment Notes Treatment Notes Treatment Clinical Notes Dec, Seasonal allergic rhinitis (ICD-10 - J30.2) [facility] Other 03-13-2023 Evaluation note* Encounter Date Diagnosis [...] Daily stretching exercises, exercise, avoid strenuous lifting. [facility] Other 12-28-2022 Evaluation note* Encounter Date Diagnosis Assessment Notes Treatment Notes Treatment Clinical Notes Aug, Diarrhea (ICD-10 - R19.7) [facility] Other 03-31-2022 Evaluation note* Encounter Date Diagnosis Assessment Notes Treatment Notes Treatment Clinical Notes Nov, Diarrhea (ICD-10 - R19.7) [facility] Other 03-10-2022 Evaluation note* Encounter Date Diagnosis [...] Nov, Loss of appetite (ICD-10 - R63.0) [facility] Other Evaluation noteNo [facility] [employer] Other Evaluation noteNo assessment information available [facility] Work Phone: Evaluation noteNoConemaugh [facility] [employer] Other Evaluation note* Diagnosis Brachial plexus neuropathy- Primary Brachial plexus lesions Multiple sclerosis (CMS/HCC) Multiple sclerosis documented [facility]* Diagnosis Onset Date Resolution Status Gastroesophageal reflux dise ase with esophagitis without hemorrhage acute Lumbar spondylosis acute PA (pernicious anemia) acute Primary hypertension acute Stage 3a chronic kidney disease acute Venous insufficiency (chronic) (peripheral) acute Acute sinusitis noneactive [facility] Work Phone: Evaluation note* Diagnosis Onset Date Resolution Status Foot pain, left acute Gastroesophageal reflux dise ase with esophagitis without hemorrhage acute Acute diverticulitis noneact bhargavi Nausea noneactive [facility] Work Phone: Evaluation note* Diagnosis Onset Date Resolution Status Foot pain, left acute Gastroesophageal reflux dise ase with esophagitis without hemorrhage acute Acute diverticulitis noneact bhargavi Nausea noneactive Acute bronchitis due to other specified organisms acute Acute exacerbation of chroni c obstructive airways disease acute [facility] Work Phone: Evaluation note* Diagnosis Onset [...] acute Stage 3a chronic kidney disease acute [facility] Work Phone: Evaluation note* Diagnosis Onset [...] acute Stage 3a chronic kidney disease acute [facility] Work Phone: Evaluation note* Diagnosis Onset [...] acute Stage 3a chronic kidney disease acute [facility] Work Phone: Evaluation note* Diagnosis Trochanteric [...] in this [facility]* Diagnosis Nerve root and plexus disorder, unspecified Myalgia, multiple sites documented in this [facility]* Diagnosis Chronic rhinitis- Primary documented in this [facility]* Diagnosis Encounter for gynecological examination without abnormal finding Encounter for Papanicolaou smear of vagina Breast cancer screening by mammogram Hormone replacement therapy documented in this [facility]* Diagnosis Trochanteric bursitis of both hips- Primary Orthostatic dizziness Nerve root and plexus disorder, unspecified [facility] HealthcareHistory general Narrative - Reported* Type Description Date Surgical History appenedectomy Surgical History left ovary Surgical History total hysterectomy [facility] Other History general Narrative - Reported* Type [...] History EGD 2020,2021 Hospitalization History SEE SURGICAL [facility] Other Hisazii general Narrative - Reported* Type Description Date [...] History EGD 2020,2021 Hospitalization History SEE SURGICAL [facility] [employer] Other History general Narrative - Reported[facility] Other History general Narrative - Reported[facility] Other Reason for referral (narrative)No reason for referral information availableKe[facility] Work Phone: Chief Complaint and Reason for Visit Chief Complaint Screening Chief Complaint Sore Throat Sinuses - [phone] B-12 SHOT Chief Complaint Sinuses - B-12 [...] Chief Complaint stomach pain, nausea B12 Shot [phone] cough, congestion for 3 days Reason for Visit Foot pain, left Gastroesophageal reflux disease with esophagitis without hemorrhage Acute diverticulitis Nausea Acute bronchitis due to other specified organisms Acute exacerbation of chronic obstructive airways disease Chief Complaint stomach pain, nausea B12 Shot [phone] cough, congestion for 3 days Fall-L Shoulder, Head/Dr. Note Reason for Visit Foot pain, left Gastroesophageal reflux disease with esophagitis without hemorrhage Acute diverticulitis Nausea Acute bronchitis due to other specified organisms Acute exacerbation of chronic obstructive airways disease Chief Complaint stomach pain, nausea B12 Shot [phone] cough, congestion for 3 days Fall-L Shoulder, [...] chronic kidney disease Chief Complaint B12 Shot [phone] cough, congestion for 3 days Fall-L Shoulder, [...] chronic kidney disease Chief Complaint B12 Shot [phone] cough, congestion for 3 days Fall-L Shoulder, [...] chronic kidney disease Chief Complaint B12 Shot [phone] cough, congestion for 3 days Fall-L Shoulder, [...] chronic kidney disease Chief Complaint Admit Date [phone] cough, congestion for 3 day s May [...] 17 10:46am Stage 3a chronic kidney disease [facility] 2023 10:46am Concussion May 27, 2024 11:38am Contusion of left shoulder May 11:38am Primary hypertension May 27 11:38am Stage 3a chronic kidney disease [facility] 2023 11:38am Fatigue June 14, 2024 11 :05am Medicare annual wellness visit, [facility] June 14, 2024 11:05am Primary hypertension June 14, 2024 1 1:05am Screening mammogram for breast cancer [facility] 2023 11:05am Stage 3a chronic kidney disease June 14, 2024 11:05am Concussion July 20, 2024 10:58am Contusion of left shoulder July 10:58am Fatigue July 20, 2024 10:58am Primary hypertension July 20, 2024 10:58am Stage 3a chronic kidney disease July 20, 2024 10:58am Chief Complaint Admit Date [phone] cough, congestion for 3 day s May [...] 17 10:46am [facility] 20[facility] 10:46am Concussion May 27, 2024 11:38am Contusion of left shoulder May 11:38am Primary hypertension May 27 11:38am [facility] 11:38am Fatigue June 14, 2024 [...] 1: 59pm Depression, major, recurrent, mild Janua 2024 9:29am NABIL (generalized anxiety disorder) Jan 2024 9:29am Gastroesophageal reflux dise ase with esophagitis without hemorrhage October 04, 2024 9:29am Nausea October 04, 2024 9 :29am Primary hypertension October 04, 2024 9:29am Stage 3a chronic kidney disease October 04, 2024 9:29am Depression, major, recurrent, mild Febru kaitlynn 2024 11:01am NABIL (generalized anxiety disorder) Febru 2024 11:01am Gastroesophageal reflux dise ase with [...] ry 2024 9:29am NABIL (generalized anxiety disorder) Sepua 2024 9:29am Gastroesophageal reflux dise ase with esophagitis without hemorrhage October 04, 2024 9:29am Nausea October 04, 2024 9 :29am Primary hypertension October 04, 2024 9:29am Stage 3a chronic kidney disease October 04, 2024 9:29am NABIL (generalized anxiety disorder) Febru kaitlnyn 2024 11:01am Gastroesophageal reflux dise ase with [...] ry 2024 9:29am NABIL (generalized anxiety disorder) Sepua 2024 9:29am Gastroesophageal reflux dise ase with [...] 10:5 5am Stage 3a chronic kidney disease January 10:55am Chief Complaint Admit Date 3 month f/u January 19, 2025 10:55 am B12 shot February 23, 2025 1:55 pm B12 Shot March 27, 2025 1:46 pm Reason for Visit Admit Date Depression, major, recurrent, mild January 052024 10:55am NABIL (generalized anxiety disorder) January 052024 10:55am Gastroesophageal reflux dise ase with esophagitis without hemorrhage January 19, 2025 10:55am IBS (irritable bowel syndrome) January 19, 2025 10:55am Primary hypertension January 19, 2025 10:5 5am Stage 3a chronic kidney disease January 10:55am PA (pernicious anemia) February 23, 2025 1 :55pm Chief Complaint Admit Date B12 shot February 23, 2025 1:55 pm B12 Shot March 27, 2025 1:46 pm B12 Shot April 27, 2025 1: 33pm Reason for Visit Admit Date PA (pernicious anemia) February 23, 2025 1 :55pm PA (pernicious anemia) April 27, 2025 1:33pm Chief Complaint Admit Date B12 Shot March 27, 2025 1:46 pm B12 Shot April 27, 2025 1: 33pm B12 Shot June 02, 2025 1:37pm Reason for Visit Admit Date PA (pernicious anemia) April 27, 2025 1:33pm Chief Complaint Admit Date B12 Shot March [...] chronic kidney disease June 19, 2025 10:58am Family History Relationship Condition Age at [...] Comments Gynecologic Exam Medicare off year.LM P: [facility]SO 1984 HRT: Premarin cream - satisfied, but would like to discuss how long to be on itLast pap 04-28-23 neg.[place] [facility] [place] Den[place] breast, urinary, or bowel concerns. Reason Comments Follow-up No surgeries; Six ni ghts hospital stay. Reason Comments Gynecologic Exam Medicare yearly.LMP: [facility] 1984 HRT: Estrace cream Last pap 04-28-23 neg.[place]23[place] [facility] [place] Denies breast, urinary, or bowel concerns. Reason Comments Bursitis Trochanteric bursiti s of right hip Back Pain L5/S1 Care Teams (unrecognized sec tion and content) Team Status: Active Member Role Status Dates Kyle Gottlieb DO Primary Care Provider Active Team Status: Inactive Member Role Status Dates Kyle Gottlieb DO Primary Care Provider Active Start: March 27, 2025 End: March 27, 2025 Kyle Gottleib DO Attending Provider Active Sta rt: March 27, 2025 End: March 27, 2025 Team Status: Inactive Member Role Status Dates Kyle Gottlieb DO Primary Care Provider Active Start: April 27, 2025 End: April 27, 2025 Aliza Daniel MD Attending Provider Active St art: April 27, 2025 End: April 27, 2025 Team Status: Inactive Member Role Status Dates Kyle Gottlieb DO Primary Care Provider Active Start: June 02, 2025 End: June 02, 2025 Kyle Gottlieb , DO Attending Provider Active Sta rt: June 02, 2025 End: June 02, 2025 Team Status: Active Member Role Status Dates Kyle Gottlieb DO Primary Care Provider Active Start: February 07, 2025 Damaso Grey , DO Attending Provider Active S tart: February 07, 2025 Team Status: Active Member Role Status Dates Kyle Gottlieb DO Primary Care Provider Active Start: February 08, 2025 Byron Zuleta MD Attending Provider Active Sta rt: February 08, 2025 Team Status: Inactive Member Role Status Dates Kyle Gottlieb DO Primary Care Provider Active Start: February 23, 2025 End: February 23, 2025 Aliza Daniel MD Attending Provider Active St art: February 23, 2025 End: February 23, 2025 Team Status: Inactive Member Role Status Saqib [...] 2025 Team Status: Active Member Role Status Saqib [...] Saqib Gottlieb DO Primary Care Provider Active Aamir Dao , DO Attending Provider, Valarie maxwell Active Team Status: Inactive Member Role Status Dates Kyle Ball , DO Primary Care Provider Active Aamir Dao , DO Attending Provider Active Senior Security Engineer Relationship Specialty Start Date End Date Kyle Gottlieb MD [address] [place] [phone] PCP - General Internal Medicine 02/16/23 Senior Security Engineer Relationship Specialty Start Date End Date Kyle Gottlieb MD [address] [place] [id number] PCP - General Internal Medicine 02/16/23 Team Status: Inactive Member Role Status Dates Tonya Harrison APRN [employer]IC-C Attending Provider Act [email or web address] Start: August 25, [...] June 23, 2024 End: June 23, 2024 Senior Security Engineer Relationship Specialty Start Date End Date Kyle Gottlieb MD [address] [place] [id number] PCP - General Internal Medicine 02/16/23 Senior Security Engineer Relationship Specialty Start Date End Date Kyle Gottlieb MD [address] [place] [phone] PCP - General Internal Medicine 02/16/23 Team Status: Inactive Member Role Status Dates Kyle Gottlieb DO Primary Care Provide r, Attending Provider Active Start: July 20, 2024 End: July 20, 2024 Team Status: Inactive Member Role Status Dates Kyle Gottlieb DO Primary Care Provide r, Attending Provider Active Start: July 22, 2024 End: July 22, 2024 Senior Security Engineer Relationship Specialty Start Date End Date Kyle Gottlieb MD [address] [place] [phone] PCP - General Internal Medicine 02/16/23 Senior Security Engineer Relationship Specialty Start Date End Date Kyle Gottlieb MD [address] [facility] [place] [phone] PCP - General Internal Medicine 02/16/23 Senior Security Engineer Relationship Specialty Start Date End Date Kyle Gottlieb MD [address] [facility] [place] [phone] PCP - General Internal Medicine 02/16/23 Senior Security Engineer Relationship Specialty Start Date End Date Kyle Gottlieb MD [address] [facility] [place] [phone] PCP - General Internal Medicine 02/16/23 Senior Security Engineer Relationship Specialty Start Date End Date Kyle Gottlieb MD [address] [facility] [place] [address] PCP - General Internal Medicine 02/16/23 Senior Security Engineer Relationship Specialty Start Date End Date Kyle Gottlieb MD [address] [facility] [place] [phone] PCP - General Internal Medicine 02/16/23 Senior Security Engineer Relationship Specialty Start Date End Date Kyle Gottlieb MD [address] [facility] [place] [phone] PCP - General Internal Medicine 02/16/23 Team [...] September 13, 2024 End: September 13, 2024 Senior Security Engineer Relationship Specialty Start Date End Date Kyle Gottlieb MD [address] [place] [address] PCP - General Internal Medicine 02/16/23 Team Status: Active Member Role Status Dates Kyle Gottlieb DO Primary Care Provide r, Attending Provider Active Start: September 06, 2024 Senior Security Engineer Relationship Specialty Start Date End Date Kyle Gottlieb MD [address] [place] [address] PCP - General Internal Medicine 02/16/23 Senior Security Engineer Relationship Specialty Start Date End Date Kyle Gottlieb MD [address] [place] [address] PCP - General Internal Medicine 02/16/23 Senior Security Engineer Relationship Specialty Start Date End Date Kyle Gottlieb MD [address] [place] [address] PCP - General Internal Medicine 02/16/23 Senior Security Engineer Relationship Specialty Start Date End Date Kyle Gottlieb DO PCP - General Internal Medicine 02/16/23 Senior Security Engineer Relationship Specialty Start Date End Date Kyle Gottlieb DO PCP - General Internal Medicine 02/16/23 Senior Security Engineer Relationship Specialty Start Date End Date Kyle Gottlieb DO PCP - General Internal Medicine 02/16/23 Senior Security Engineer Relationship Specialty Start Date End Date Kyle Gottlieb DO PCP - General Internal Medicine 02/16/23 Senior Security Engineer Relationship Specialty Start Date End Date Kyle Gottlieb DO PCP - General Internal Medicine 02/16/23 Team Status: Inactive Member Role Status Dates Kyle Gottlieb DO Primary Care Provider Active Start: January 19, 2025 End: January 19, 2025 Kyle Gottlieb DO Attending Provider Active Sta rt: January 19, 2025 End: January 19, 2025 Senior Security Engineer Relationship Specialty Start Date End Date Kyle Gottlieb DO PCP - General Internal Medicine 02/16/23 Senior Security Engineer Relationship Specialty Start Date End Date Kyle Gottlieb DO PCP - General Internal Medicine 02/16/23 Senior Security Engineer Relationship Specialty Start Date End Date Kyle Gottlieb DO PCP - General Internal Medicine 02/16/23 Senior Security Engineer Relationship Specialty Start Date End Date Kyle Gottlieb DO PCP - General Internal Medicine 02/16/23 Team Status: Inactive Member Role Status Dates Kyle Gottlieb DO Primary Care Provider Active Start: June 19, 2025 End: June 19, 2025 Kyle Gottlieb DO Attending Provider Active Sta rt: June 19, 2025 End: June 19, 2025 Goals (unrecognized section and content) Goals may be documented in a n alternate section INFORMATION SOURCE (unrecogn ized section and content) DATE CREATED AUTHOR 02/13/2023 [facility] DATE CREATED AUTHOR AUTHOR'S ORGANIZ ATION 09/08/2024 [facility] DATE CREATED AUTHOR AUTHOR'S ORGANIZ ATION 05/23/2025 [facility] FOR RECORDS PERTAINING TO PATIENTS WHO [...] BE BASED ON THE PRIMARY CLINICAL RECORDS. [facility] [employer] provides no warranty or guarantee of the accuracy or completeness of information in this document.
[2025-06-21 12:21] LABS: Hematocrit 31.9 % (36.0-48.0); Hemoglobin 9.9 g/dL (12.0-16.0); Immature Granulocytes Abs Auto 0.02 10^3/uL (0.00-0.03); Immature Granulocytes Pct Auto 0.6 % (0.0-0.5); Lymphocytes Absolute Auto 0.9 10^3/uL (1.2-3.8); Mean Corpuscular HGB Conc 31.0 g/dL (29.9-35.2); Mean Corpuscular Hemoglobin 27.2 pg (26.7-34.0); Mean Corpuscular Volume 87.6 fL (81.0-99.0); Platelet Count 189 10^3/uL (150-450); Red Blood Count 3.64 10^6/uL (4.20-5.40); White Blood Count 3.3 10^3/uL (4.0-11.0)
[2025-06-21 12:33] LABS: Iron 47.0 ug/dL (50.0-170.0); Percent Iron Saturation 9.1 %; Total Iron Binding Capacity 517.0 ug/dL (250.0-450.0)
[2025-06-21 12:34] LABS: Alanine Aminotransferase 16 U/L (14-59); Albumin Globulin Ratio 1.0; Albumin Level 3.6 g/dL (3.4-5.0); Alkaline Phosphatase 54 U/L (46-116); Anion Gap 14.8; Aspartate Amino Transferase 23 U/L (15-37); Blood Urea Nitrogen 18.0 mg/dL (7.0-18.0); Calcium 9.2 mg/dL (8.5-10.1); Carbon Dioxide 28.2 mmol/L (21.0-32.0); Chloride 104 mmol/L (98-107); Cholesterol 194 mg/dL (<=200); Estimated GFR (African America 56 (>=60 mL/min/1.73m^2); Estimated GFR (Non-African Ame 46 (>=60 mL/min/1.73m^2); Globulin 3.5 g/dL; Glucose 88 mg/dL (74-106); HDL Cholesterol 58 mg/dL (40-60); Potassium 4.0 mmol/L (3.5-5.1); Sodium 143 mmol/L (136-145); Thyroid Stimulating Hormone 2.039 uIU/mL (0.358-3.740); Total Protein 7.1 g/dL (6.4-8.2); Triglycerides 114 mg/dL (<=150); VLDL CHOLESTEROL 22.8 mg/dL
[2025-06-21 13:16] LABS: Ferritin 13.0 ng/mL (8.0-252.0); Folate 32.90 ng/mL (8.60-58.90)
[2025-06-22 04:07] LABS: Vitamin B12 774 pg/mL (232-1245)
== END 2025-06-21 10:52 | disposition home or self-care (01) ==
LOC: LAB 10:53
PROVIDERS: PCP Internal Medicine; Visit Provider Internal Medicine
DX: E78.1 Pure hyperglyceridemia (principal); D64.9 Anemia, unspecified; N18.31 Chronic kidney disease, stage 3a; R53.83 Other fatigue; I12.9 Hypertensive chronic kidney disease with stage 1 through stage 4 chronic kidney disease, or unspecified chronic kidney disease
CPT/HCPCS: 36415; 80053; 80061; 82607; 82728; 82746; 83540; 83550; 84443; 85025

== ENCOUNTER 2025-07-31 12:49 | Outpatient (OUT) | payer MEDICARE, OTHER, SELFPAY ==
--- OUTSIDE RECORDS SUMMARY | 2025-07-31 13:03 | XMS_ITS | CCD ---
Author Organization [facility] Care Team Providers Care Core Shaper Top Name Role Phone Doni Rivera Unavailable DO Kyle Obrien Primary Care Provider [phone] DO Aamir Xavier Attending Provider DO Aamir Xavier Referring Provider Kyle Obrien Unavailable MICAH, DR MURPHY Primary Care Unavailable [...] Unavailable NEFJUHI, NANDO Consulting Unavailable DO Kyle Obrien Primary Care Provider DO Aamir Xavier Attending Provider Tonya Harrison Unavailable Kyle Obrien MD Primary Care Provider DO Kyle Obrien Primary Care Provider DO Aamir Xavier Attending Provider Micah FLAHERTY, Kyle Primary Care Provider Aamir Xavier DO Attending Provider Anita Garcia MD Attending Provider Anita Garcia MD Attending Provider Kyle Obrien DO Primary Care Provider Micah DO, Kyle Primary Care Provider Micah FLAHERTY, Kyle Attending Provider Damaso Grey DO Attending Provider [phone] Byron Perez MD Attending Provider Aliza Daniel MD Attending Provider Micah FLHAERTY, Kyle Primary Care Provider Micah , Kyle Attending Provider SHIVAM PONCE Attending Unavailable PONCESHIVAM Attending Unavailable PONCESHIVAM KRUEGER Attending Unavailable SHIVAM PONCE Attending Unavailable MEL HAYES Attending Unavailable AAMIR XAVIER Attending Unavailable SHIVAM PONCE Attending Unavailable PONCESHIVAM KRUEGER Attending Unavailable PONCESHIVAM Attending Unavailable PONCESHIVAM Attending Unavailable PONCESHIVAM KRUEGER Attending Unavailable Micah FLAHERTY Kyle Primary Care Provider Aliza Daniel MD Attending Provider [phone] Micah FLAHERTY, Kyle Primary Care Provider Micah FLAHERTY, Kyle Attending Provider Aamir Xavier DO Attending Provider [phone] Anita Garcia Attending Unavailable Anita Garcia Admitting Unavailable Micah Kyle Primary [facility] Unavailable Aamir Xavier Attending Unavailable Aamir Xavier Admitting Unavailable Allergies Allergy ClassificationReported Allergen(s)Allergy TypeDate of OnsetReaction(s) Facility (20 sources)AmoxicillinDrug Uetqmzg65-78-4688FqrqKrzkoskeeOhioHealth [facility]ering[facility] (20 sources)ClarithromycinDrug Opndkej21-41-7071Hgsdpzl, [facility] (20 sources)NaproxenDrug Ulokoho91-54-7525GufudlyXqfjjeiocMercy Health St. [facility] (20 sources)Sulfamethoxazole / TrimethoprimDrug Veoadzm38-69-4788WcjhgpdKHWT Healthcare (20 sources)LEVOFLAXINPropensity to adverse tmoboaquc82-21-8358Dwqxxah, Unknown ReactionAshtabula County Medical Center (11 sources)Sulfamethoxazole / Trimethoprim; Translations: [Bactrim]Drug Allergy 78-42-4450IqqkppbZmyKeenan Private Hospital [facility] (20 sources)levoFLOXacin; Translations: [Levofloxacin]Drug Tieldsi15-31-1477BndsCleveland Clinic [facility] Hospital (20 sources)SulfamethoxazoleDrug Xtorhoa55-44-3239HdtqpyoZhvxokqwaMercy Health St. [facility] Hospital (20 sources)TrimethoprimDrug Knwpkou70-39-9842SnvbmfxHplelvsaeMercy Health St. [facility] Hospital (1 source)AmoxicillinDrug AllergyMer[facility] (1 source)ClarithromycinDrug AllergyMercy Health [facility] Repository (1 source)NaproxenDrug Ccxdbuy79-25-1897QcyMercy Health Fairfield Hospital Repository (17 sources)BaclofenDrug AllergyFranciscan Health Crown PointBleacher Report Other (17 sources)levoFLOXacinDrug AllergySelect Specialty Hospital - IndianapolisTCD Pharma Other (17 sources)PenicillinDrug AllergyDeaconess Incarnate Word [facility] E2MS Other (17 sources)predniSONEDrug AllergyDeaconess Incarnate Word Health System [facility] E2MS Other (20 sources)Biaxin XL *MACROLIDES*Propensity to adverse tctqlozvl46-91-8396 Unknown, Unknown ReactionAshtabula County Medical Center (2 sources)Allergies ReconciledPropensity to adverse reactionsDeaconess Incarnate Word Health System [facility] E2MS Other (2 sources)patient allergy list reviewed by nurse or physiciaPropensity to adverse ykhedlzjj49-14-7421Qiuihaz:[facility] PeachPredictry [facility] E2MS Other (17 sources)corticosteroid and/or corticosteroid derivative (FN)Drug allergy [facility] E[facility] Other (20 sources)Substance with sulfonamide structure and antibacterial mechanism of action (substance)Drug vyboxvf11-56-5221ActistlBifxr [employer] Other (17 sources)Substance with penicillin structure and antibacterial mechanism of action (substance)Drug allergyProvidence [facility] Medical Center [employer] Other (20 sources)ClarithromycinAllergy to dzvdilopg55-47-8719TjcpXNZG Healthcare (20 sources)CorticosteroidsAllergy to eikxbtqkl11-92-6657Zgqtpdd Reaction [facility] (20 sources)PenicillinsAllergy to jshauyclo33-01-2851Btvpyzc ReactionAshtabula County Medical Center (20 sources)Sulfonamides (Antibiotic)Allergy to lgwbnayxg01-67-3388Dkefnzp ReactionAshtabula County Medical Center (20 sources)Corticosteroids and derivativesDrug Rtbtwts46-08-8430AqflksnDYFV Healthcare (20 sources)Macrolides And KetolidesDrug Kcdrdtr88-55-0071UgstdvsBBJL Healthcare Medications Current Medications MedicationDrug Class(es)DatesSig (Normalized)Sig (Original)benazepril hydrochloride 5 mg oral tablet (20 sources)Angiotensin Converting Enzyme InhibitorStart: 91-72-6918yavt 1 tablet by mouth once dailyBenazepril 5 mg tablet Active 5 MG PO Daily 90 90 3 June 19, 2025 11:58am Complies with drug therapyStart: 10-18-2024 End: 69-47-5342mofg 1 tablet by mouth once dailyBenazepril 10 mg tablet Discontinued 10 MG PO Daily 90 90 3 October 27, 2024 6:11pm June 19, 2025 12:00pmStart: 03-08-2024 End: 33-47-5056gegv 1 tablet by mouth once dailyBenazepril 5 mg tablet Discontinued 0 .ROUTE .COMPLEX 90 3 October 18, 2024 12:49pm October 18, 2024 12:50pm TAKE 1 TABLET BY MOUTH ONCE DAILYStart: 43-07-7599exvf 1 tablet by mouth once dailyBenazepril Active 0 .ROUTE .COMPLEX 90 March 08, 2024 8:40am TAKE 1 TABLET BY MOUTH ONCE DAILYStart: 11-28-2021 End: 79-65-7150wraa 1 tablet by mouth once dailyBenazepril 5 mg tablet Discontinued 5 MG PO Daily November 28, 2021 12:00am March 08, 2024 8:40am Benazepril HCl Activebenzonatate 200 mg oral capsule (9 sources)Non-narcotic AntitussiveStart: 34-83-8511tnme 1 capsule by mouth three times dailyBenzonatate 200 mg capsule Active 200 MG PO Three times daily 30 10 November 15, 2024 12:00am Complies with drug therapybisoprolol fumarate 2.5 mg / hydroCHLOROthiazide 6.25 mg oral tablet (7 sources)Thiazide Diuretic, beta-Adrenergic Blockertake 1 tablet by mouth every twenty-four hoursBisoprolol-hydroCHLOROthiazide 2.5-6.25 MG 1 tablet Orally Once a day Activecalcium carbonate 1500 mg / cholecalciferol 500 unt oral capsule (20 sources)Vitamin DStart: 01-29-9507Lyqrwxn Carbonate-Vitamin D3 (Calcium 600 With Vitamin D3) 600 mg-12.5 mcg (500 unit) capsule Active CAP PO August 16, 2024 1:00am Complies with drug therapytake 1 tablet by mouth once daily at mealtimetake 1 tablet by mouth every twenty-four hoursCalcium + D 600-200 MG- UNIT 1 tablet with food Orally Once a day for 30 day(s) ActiveCalcium Carbonate- Vit D-Min (Calcium 600+D Plus Minerals) 600-400 MG-UNIT chewable tablet (20 sources)Calcium Carbonate-Vit D-Min (Calcium 600+D Plus Minerals) 600-400 MG-UNIT chewable tablet every 12 (twelve) hours ActiveCalcium Carbonate-Vit D- Min (Calcium 600+D Plus Minerals) 600-400 MG-UNIT chewable tablet every 12 ( twelve) hours. ActiveCalcium Carbonate-Vit D-Min (Calcium 600+D Plus Minerals) 600-400 MG-UNIT chewable tablet every 12 (twelve) hours. 0 Activecetirizine hydrochloride 10 mg oral tablet (20 sources)Histamine-1 Receptor AntagonistStart: 31-00-9936dwic 1 tablet by mouth once daily as neededCetirizine 10 mg tablet Active 10 MG PO Daily as needed August 16, 2024 1:00am Complies with drug therapyStart: 11-28-2021 End: 74-33-9148cxpa 1 tablet by mouth once dailyCetirizine (Zyrtec) 10 mg tablet Discontinued 10 MG PO Daily 30 3 November 28, 2021 12:00am 2023 12:30pmcyproheptadine hydrochloride 4 mg oral tablet (10 sources)Start: 55-99-3920uevw 2 mg by mouth once daily at bedtime Cyproheptadine 4 mg tablet Active 2 MG PO Daily at bedtime June 19, 2025 12:00am Complies withdrug therapyStart: 02-15-2025 End: 35-36-6521ncnn 0.5 tablet by mouth at bedtimecyproheptadine (Periactin) 4 MG tablet Indications: Vertigo , Acute rhinitis Take 0.5 tablets (2 mg) by mouth at bedtime 45 tablet 3 02/15/2025 02/15/2026 Activedocusate sodium 100 mg oral capsule (20 sources)docusate sodium (Colace) 100 MG capsule 1 (one) time each day at the same time Activeestradiol 0.1 mg/ml vaginal cream (20 sources)EstrogenStart: 79-99-1881ajsqgoagl (Estrace) 0.1 MG/GM vaginal cream Indications: Hormone replacement therapy Use 0.5 g vaginally once weekly. 42.5 g 1 05/09/2025 ActiveStart: 05-03-2024 End: 28-25-3412znzjcmbpw (Estrace) 0.1 MG/GM vaginal cream Indications: Hormone replacement therapy Use 0.5 g vaginally once weekly. 42.5 g 05/03/2024 05/09/2025 Discontinued (Reorder)estrogens, conjugated (fci) 0.625 mg/ml vaginal cream (20 sources)EstrogenStart: 58-73-5698Parzdfnjkq Estrogens (Premarin) 0.625 mg/gram cream Active 1 APPLIC TOPICAL As Directed November 12:00am Complies with drug therapyStart: 12-31-2016 End: 29-52-6747Dyvstqmhi Conjugated (Premarin) 0.625 MG/GM cream 1/2gram Vaginal twice per week for 90 days 12/31/2016 05/03/2024 Discontinued (Cost of medication)Premarin 0.625 MG/GM as directed Vaginal ActivePremarin 0.625 MG/GM as directed Vaginal Activefenofibrate 160 mg oral tablet (20 sources)Peroxisome Proliferator Receptor alpha AgonistStart: 74-47-6499uoxp 1 tablet by mouth once dailyFenofibrate 160 mg tablet Active 160 MG PO Daily 90 90 3 October 27, 2024 6:10pm Complies with drug therapyStart: 11-04-2023 End: 00-20-6552juqj 1 tablet by mouth once dailyFenofibrate 160 mg tablet Discontinued 0 .ROUTE .COMPLEX 90 3 November 04, 2023 7:09pm October 27, 2024 6:11pm TAKE 1 TABLET BY MOUTH ONCE DAILYStart: 23-46-8458ndfl 1 tablet by mouth once dailyFenofibrate Active 0 .ROUTE .COMPLEX 90 November 04, 2023 7:09pm TAKE 1 TABLET BY MOUTH ONCE DAILYStart: 11-28-2021 End: 54-97-5963xrkm 1 tablet by mouth once dailyFenofibrate 160 mg tablet Discontinued 160 MG PO Daily November 28, 2021 12:00am November 0447:09pm Start: 07-36-7908mrihdhxaoux micronized (Lofibra) 134 MG capsule 06/12/2010 ActiveFish Mry-Cgkvf-7-Vit C-Vit E 2,000-650-12 mg/2.5 gram emulsion in packet (13 sources)Start: 25-18-6632Lkbf Diy-Rklyo-1-Vit C-Vit E 2,000-650-12 mg/2.5 gram emulsion in packet Active GM PO August 16, 2024 1:00am Complies with drug therapyStart: 65-76-3679Pdxjs: 31-32-1176Kxju Tnu-Ihgzu-7-Vit C-Vit E 2,000-650-12 mg/2.5 gram emulsion in packet Active GM PO August 16, 2024 1:00amStart: 44-43-6741Zdfr Kpk-Yvoon-0-Vit C-Vit E 2,000-650-12 mg/2.5 gram emulsion in packet Active GM PO August 16, 2024 12:00amFish Oils (20 sources)take 1 capsule by mouth three times dailytake 1 capsule by mouth three times dailyFish Oil 1200 MG 1 capsule Orally Three times a day for 30 day(s) Activefludrocortisone acetate 0.1 mg oral tablet (1 source)Start: 94-13-3651oaev 1 tablet by mouth once dailyfludrocortisone (Florinef) 0.1 MG tablet Indications: Orthostatic dizziness Take 1 tablet (0.1 mg) by mouth Daily for 7 days 7 tablet 1 05/22/2025 Activefurosemide 40 mg oral tablet (1 source)Loop DiureticStart: 34-71-6085igav 1 tablet by mouth every twenty-four hoursFurosemide 40 MG 1 tablet Orally Once a day for 7 days Dec, Active gabapentin 300 mg oral capsule (20 sources)Anti-epileptic AgentStart: 07-18-2024 End: 80-21-6744niwu 1 capsule by mouth once dailyGabapentin 300 mg capsule Active 0 .ROUTE .COMPLEX 90 3 May 29, 2025 7:36am TAKE 1 CAPSULE BY MOUTH ONCE DAILY Complies with drug therapyStart: 06-06-2009 End: 75-04-2925ryhn 1 capsule by mouth once daily at bedtimeGabapentin (Neurontin) 300 mg Capsule Discontinued 300 MG PO Daily at bedtime November 28, 2021 12:00am July 18, 2024 1:58pmtake 1 capsule by mouth every eight hours Neurontin 300 MG 1 capsule Orally Three times a day ActiveHydrocortisone Acetate (Anucort-Hc) 25 mg suppository (20 sources)Start: 67-86-4498Dhkkabwluyitsj Acetate (Anucort-Hc) 25 mg suppository Active 25 MG WI Daily at bedtime 30 08November 25, 2023 10:27am Start: 29-19-0797Sklanqqegcraij Acetate (Anucort-Hc) 25 mg suppository Active 25 MG WI Daily at bedtime 30 08November 25, 2023 11:27amipratropium bromide 0.042 mg/actuat metered dose nasal spray (20 sources)AnticholinergicStart: 02-16-2023 End: 65-67-3449xkui 2 spray(s) nasal route in the morning, then take 2 spray(s) nasal route in the evening, then take 2 spray(s) nasal route at bedtime ipratropium (Atrovent) 0.06 % nasal spray Indications: Chronic rhinitis Administer 2 sprays into each nostril in the morning and 2 sprays in the evening and 2 sprays before bedtime. 45 mL 6 04/10/2025 07/09/2025 ActiveMecobalamin (Vitamin B12) 10,000 mcg recon soln (13 sources)Start: 63-29-0718Dptodqxwiil (Vitamin B12) 10,000 mcg recon soln Active MCG IV August 16, 2024 1:00am Complies with drug therapyStart: 31-30-7573Anyrd: 11-01-1393Cscqxoafovw (Vitamin B12) 10,000 mcg recon soln Active MCG IV August 16, 2024 1:00amStart: 16-34-5267Ptwcxuexcau (Vitamin B12) 10,000 mcg recon soln Active MCG IV August 16, 2024 12:00amondansetron 4 mg disintegrating oral tablet (20 sources)Serotonin-3 Receptor AntagonistStart: 66-02-1707rgmx 1 tablet by mouth every eight hours as needed for nausea and vomitingOndansetron 4 mg tablet,disintegrating Active 4 MG PO Every 8 hours as needed for nausea and vomiting October 04, 2024 1:00am Complies with drug therapyStart: 03-09-2024 End: 74-60-1433xltr 1 tablet by mouth every six hours as needed for nausea and vomitingOndansetron 4 mg tablet,disintegrating Discontinued 4 MG PO Every 6 hours as needed for nausea and vomiting 5 0 March 09, 2024 12:00am August 16, 2024 12:15pmOXcarbazepine 300 mg oral tablet (20 sources)Anti-epileptic AgentStart: 01-12-2024 End: 38-33-4619tybp 1 tablet by mouth once daily at bedtimeOxcarbazepine 300 mg tablet Active 0 .ROUTE .COMPLEX 90 3 January 06, 2025 1:28pm TAKE 1 TABLET BY MOUTH EVERY NIGHT AT BEDTIME Complies with drug therapyStart: 06-06-2009 End: 81-97-7863yjmm 1 tablet by mouth at bedtimeOxcarbazepine (Trileptal) 300 mg Tablet Discontinued 300 MG PO Bedtime November 28, 2021 12:00am 2023 2:14pmpolysaccharide iron complex 150 mg oral capsule (4 sources)Start: 06-22-2025 End: 95-88-4069Fyptpxzfocvply Iron Complex (Ferrex 150) 150 mg iron capsule Active 150 MG PO Daily 5 2024 3:26pm take with 500mg vitamin C Complies with drug therapysertraline 25 mg oral tablet (20 sources)Serotonin Reuptake InhibitorStart: 42-05-9766ufeg 1 tablet by mouth once dailysertraline (Zoloft) 25 MG tablet Take 25 mg by mouth Daily 02/09/2025 ActiveStart: 11-12-2024 End: 88-37-7818buqj 1 tablet by mouth once dailySertraline 25 mg tablet Active 0 .ROUTE .COMPLEX 90 May 11, 2025 7:10am TAKE 1 TABLET BY MOUTH EVERY DAY Complies with drug therapyStart: 10-18-2024 End: 31-30-7892fevy 1 tablet by mouth once dailySertraline 25 mg tablet Discontinued 25 MG PO Daily 30 30 2 October 18, 2024 12:41pm November 12, 2024 5:03pmStart: 10-04-2024 End: 26-53-6985gmoo 1 tablet by mouth once dailySertraline 50 mg tablet Discontinued 50 MG PO Daily 30 30 2 October 04, 2024 1:00am October 18, 2024 12:41pmStool Softener (20 sources)Stool Softener ActivetiZANidine 4 mg oral tablet (20 sources)Central alpha-2 Adrenergic AgonistStart: 09-14-2024 End: 45-51-4296tsio 1 tablet by mouth at bedtimetiZANidine (Zanaflex) 4 MG tablet Indications: Cervical paraspinal muscle spasm Take 1 tablet (4 mg) by mouth at bedtime for 10 days 30 tablet 3 09/14/2024 ActiveStart: 11-28-2021 End: 07-82-6240Pciogjkqfd (Zanaflex) 4 mg Tablet Discontinued 2 MG PO Bedtime as needed for Pain November 28, 2021 12:00am August 16, 2024 12:11pmStart: 04-55-5962miEXGboskc (Zanaflex) 4 MG capsule 06/06/2009 ActiveStart: 06-06-2009 take 1 tablet by mouth once at bedtimetiZANidine (Zanaflex) 4 MG capsule take 1 tablet (4MG) by ORAL route every bedtime Oral 06/06/2009 Activetake 1 tablet by mouth every eight hoursZanaflex 4 MG 1 tablet as needed Orally every 8 hrs ActivevalACYclovir 500 mg oral tablet (20 sources)Herpesvirus Nucleoside Analog DNA Polymerase Inhibitor, Herpes Simplex Virus Nucleoside Analog DNA Polymerase Inhibitor, Herpes Zoster Virus Nucleoside Analog DNA Polymerase InhibitorStart: 59-37-8658gntWVWmeiejk (Valtrex) 500 MG tablet 07/10/2023 Active Completed/Discontinued Medications MedicationDrug Class(es)DatesSig (Normalized)Sig (Original)azithromycin 250 mg oral tablet (20 sources)Macrolide AntimicrobialStart: 11-15-2024 End: 75-91-5549Lspflbtqmvll 250 mg tablet Discontinued 250 MG PO .COMPLEX 6 5 0 November 15, 2024 12:00am June 19, 2025 11:25am 2 tabs on first day followed by 1 tab on days 2-5Start: 11-25-2023 End: 79-92-5204Nnvfgakimsox 250 mg tablet Discontinued 250 MG PO As Directed 6 5 0 May 11, 2024 12:00am June 14, 2024 11:09amStart: 09-17-2023 Azithromycin 250 MG as directed Orally daily for 5 days Sep, Active Start: 84-11-4014Ulqsjctkcpgs 250 MG 2 tablet on the first day, then 1 tablet daily for 4 days Orally Once a day for5 day(s) Aug, ActiveB-12 - up to 1000 mcg (20 sources)Start: 13-27-5497C-12 - up to 1000 mcg Sep, 1000 mcgStart: 70-47-0291F-12 - up to 1000 mcg Aug, 1000 mcgStart: 74-55-9832P-12 - up to 1000 mcg Jul, 1000 mcgStart: 15-12-5729A-12 - up to 1000 mcg Jun, 1000 mcgStart: 64-49-9406E-12 - up to 1000 mcg Apr, 1000 mcgStart: 18-16-4626C-12 - up to 1000 mcg Mar, 1000 mcgStart: 99-60-6953U-12 - up to 1000 mcg Mar, 1000 mcgStart: 46-16-2220I-12 - up to 1000 mcg Mar, 1000 mcgStart: 73-30-1434Tgize: 84-59-3297Woyhg: 22-49-1246H-12 - up to 1000 mcg Mar, 1000 mcgbupivacaine hydrochloride 5 mg/ml injectable solution (20 sources)Amide Local AnestheticStart: 06-06-2025 End: 01-03-6029cbhfyuxparl (Marcaine) 0.5 % injection 5 mgStart: 06-06-2025 End: 55 mg, Injection, Once, On Thu06/06/25 at 1000, For 1 doseStart: 03-29-2025 End: mg, Injection, Once, On Thu03/29/25 at 1315, For 1 doseStart: 02-14-2025 End: 37-09-9789nllulhifuzm (Marcaine) 0.5 % injection 5 mgStart: 02-14-2025 End: mg, Injection, Once, On Thu02/14/25 at 1715, For 1 doseStart: 12-26-2024 End: 52-07-8012yucsttjfbuy (Marcaine) 0.5 % injection 5 mgStart: 12-26-2024 End: 55 mg (1 mL), Injection, Once, On Thu12/26/24 at 1545, For 1 dose Start: 10-17-2024 End: 64-61-8999btgboqciqpt (Marcaine) 0.5 % injection 5 mgStart: 10-17-2024 End: 55 mg (1 mL), Injection, Once, On Thu10/17/24 at 1330, For 1 dose Start: 09-19-2024 End: 13-35-0449mtblectaxyr (Marcaine) 0.5 % injection 5 mgStart: 09-19-2024 End: 55 mg (1 mL), Injection, Once, On Thu09/19/24 at 0015, For 1 dose Start: 08-18-2024 End: 60-57-3161dmjkizzrvim (Marcaine) 0.5 % injection 5 mgStart: 08-18-2024 End: mg (1 mL), Injection, Once, On Laura 08/18/24 at 1745, For 1 dose Start: 76-27-3123baesisfqvqo (Marcaine) 0.5 % injection 5 mgStart: 06-01-2024 End: 25-05-2024vwterbcxxlm (Marcaine) 0.5 % injection 5 mgStart: 06-01-2024 End: mg (1 mL), Injection, Once, On Thu06/01/24 at 1630, For 1 dose cefdinir 300 mg oral capsule (20 sources)Cephalosporin AntibacterialStart: 10-21-2023 End: 63-98-1566fcxw 1 capsule by mouth twice dailyCefdinir 300 mg capsule Discontinued 300 MG PO Twice daily October 21, 2023 1:00am June 14, 2024 11:09amStart: 04-69-8221Oodyrecd 300 MG as directed Orally bid Dec, Activedexamethasone phosphate 4 mg/ml injectable solution (20 sources)CorticosteroidStart: 06-06-2025 End: 16-83-4505nkjUYZDIsrakr sod phos (Decadron) injection 4 mgStart: 06-06-2025 End: mg (1 mL), Injection, Once, On Thu06/06/25 at 1000, For 1 dose Start: 03-29-2025 End: 54 mg (1 mL), Injection, Once, On Thu03/29/25 at 1315, For 1 dose Start: 02-14-2025 End: 20-25-2369hsuRBEWTnvbkc sod phos (Decadron) injection 4 mgStart: 02-14-2025 End: 54 mg (1 mL), Injection, Once, On Thu02/14/25 at 1715, For 1 dose Start: 12-26-2024 End: 72-54-0851fpuCOSPQrbauz sod phos (Decadron) injection 4 mgStart: 12-26-2024 End: 54 mg (1 mL), Injection, Once, On Thu12/26/24 at 1545, For 1 dose Start: 10-17-2024 End: 98-30-2301lgsXMBXIfcpmo sod phos (Decadron) injection 4 mgStart: 10-17-2024 End: 54 mg (1 mL), Injection, Once, On Thu10/17/24 at 1330, For 1 dose Start: 09-19-2024 End: 70-50-8340xucVTTIWrbefl sod phos (Decadron) injection 4 mgStart: 09-19-2024 End: mg (1 mL), Injection, Once, On Thu09/19/24 at 0015, For 1 dose Start: 08-18-2024 End: 98-52-6428ysyNLDGDckewt sod phos (Decadron) injection 4 mgStart: 08-18-2024 End: 44 mg (1 mL), Injection, Once, On Thu08/18/24 at 1745, For 1 dose Start: 07-11-2024 End: 51-25-6060sovXSPZQklpet sod phos (Decadron) injection 4 mgStart: 06-01-2024 End: 25-87-0477ylsRKKFAuggrf sod phos (Decadron) injection 4 mgStart: 06-01-2024 End: 44 mg (1 mL), Injection, Once, On Thu06/01/24 at 1630, For 1 dose Start: 03-17-2024 End: 49-82-3582cpvb 1 tablet by mouth in the morningdexAMETHasone (Decadron) 2 MG tablet Indications: Trochanteric bursitis of both hips Take 1 tablet (2 mg) by mouth in the morning and 1 tablet (2 mg) in the evening. Take with meals. Do all this for 10 days. 20 tablet 06/02/2024 05/22/2025 Discontinued (Therapy completed)dicyclomine hydrochloride 20 mg oral tablet (20 sources)AnticholinergicStart: 10-21-2023 End: 45-85-0724cdlv 1 tablet by mouth four times dailyDicyclomine 20 mg tablet Discontinued 20 MG PO Four times daily October 21, 2023 1:00am 2023 12:15pmtake 1 tablet by mouth every six hoursDicyclomine HCl 20 MG 1 tablet Orally QID Activefolic acid 1 mg oral tablet (20 sources)Start: 01-09-2023 End: 19-29-4962kyjh 1 tablet by mouth once dailyFolic Acid 1 mg tablet Discontinued 1 MG PO Daily October 21, 2023 1:00am August 08, 2024 1:22pm hydrocortisone 25 mg/ml topical cream (20 sources)CorticosteroidStart: 10-21-2023 End: 75-22-7384Hwnnahnpklmqvd (Proctosol Hc) 2.5 % cream with perineal applicator Discontinued 1 APPLIC WI 1 to 2 times per day as needed October 21, 2023 1:00am August 16, 2024 12:15pmStart: 11-28-2021 End: 25-61-9086Qcbgodrudyeczo Acetate (Anucort-Hc) 25 mg suppository Discontinued 25 MG WI Daily at bedtime October 21, 2023 1:00am November 25, 2023 11:27amProctozone-HC 2.5 % APPLY TOPICALLY 2 TO 4 TIMES DAILY for 90 Active Proctosol HC 2.5 % 1 application to affected area Rectal Twice a day for 30 days ActiveAnucort-HC ActiveHydrocortisone (Proctosol Hc) 2.5 % Cream With Applicator (20 sources)Start: 11-28-2021 End: 92-51-5280Icrssbeejxegfo (Proctosol Hc) 2.5 % Cream With Applicator Discontinued 1 EACH WI Daily as needed for Hemorrhoids November 28, 2021 12:00am October 21, 2023 12:30pmStart: 11-28-2021 End: 74-75-8080Swqxapumitwbsa (Proctosol Hc) 2.5 % Cream With Applicator Discontinued 1 EACH WI Daily as needed for Hemorrhoids November 27, 2021 11:00pm October 21, 2023 11:30amStart: 11-28-2021 End: 05-48-4422Kilwqykwqooqfs (Proctosol Hc) 2.5 % Cream With Applicator Discontinued 1 EACH WI Daily November 28, 2021 12:00am October 21, 2023 12:30pmStart: 63-51-8643Axabepegpcduaf (Proctosol Hc) 2.5 % Cream With Applicator Active 1 EACH WI Daily November 27, 2021 11:00pmStart: 11-28-2021 Hydrocortisone (Proctosol Hc) 2.5 % Cream With Applicator Active 1 EACH WI Daily November 28, 2021 12:00ammetroNIDAZOLE 500 mg oral tablet (20 sources)Nitroimidazole AntimicrobialStart: 03-09-2024 End: 11-49-9127qqid 1 tablet by mouth every eight hoursMetronidazole 500 mg tablet Discontinued 500 MG PO Every 8 hours 21 7 0 March 09, 2024 12:00am Decem 2023 12:15pmOmega 0-Opp-Eju-Fish Oil (Fish Oil) 1,200 (144-216) mg Capsule (20 sources)Start: 11-28-2021 End: 76-32-6556sihh 2 capsules by mouth at bedtimeOmega 2-Qew-Moz-Fish Oil (Fish Oil) 1,200 (144-216) mg Capsule Discontinued 2 CAP PO Bedtime November 27, 2021 11:00pm October 21, 2023 11:30amStart: 11-28-2021 End: 46-88-5922hgch 2 capsules by mouth at bedtimeOmega 0-Gye-Rkl-Fish Oil (Fish Oil) 1,200 (144-216) mg Capsule Discontinued 2 CAP PO Bedtime November 28, 2021 12:00am October 21, 2023 12:30pmStart: 79-53-6464daqp 2 capsules by mouth at bedtimeOmega 6-Skt-Pjn-Fish Oil (Fish Oil) 1,200 (144-216) mg Capsule Active 2 CAP PO Bedtime November 27, 2021 11:00pmStart: 92-96-8224rnwj 2 capsules by mouth at bedtimeOmega 4-Cdd-Tpr-Fish Oil (Fish Oil) 1,200 (144-216) mg Capsule Active 2 CAP PO Bedtime November 28, 2021 12:00amomeprazole 40 mg delayed release oral capsule (20 sources)Proton Pump InhibitorStart: 08-16-2024 End: 58-41-1013wwxc 1 capsule by mouth twice dailyOmeprazole 40 mg capsule,delayed release(DR/EC) Discontinued 40 MG PO Twice daily 180 90 3 June 12, 2025 7:50am June 13, 2025 8:47ampantoprazole 40 mg delayed release oral tablet (20 sources)Proton Pump InhibitorStart: 12-28-2020 End: 65-07-6600pikz 1 tablet by mouth twice dailyPantoprazole 40 mg tablet,delayed release (DR/EC) Discontinued 40 MG PO Twice daily November 28, 2021 12:00am August 16, 2024 12:29pmpantoprazole (Protonix) 40 MG EC tablet 1 (one) time each day at the same time Active Problems Active Problems Problem ClassificationProblemDateDocumented DateEpisodic/ChronicAbdominal pain (20 sources)Abdominal pain; Translations: [Unspecified abdominal pain]Onset: 07-19-2014 Resolved: 36-04-2622KmrwmarnJxomr and unspecified renal failure (1 source)Acute kidney failure, unspecified; Translations: [ACUTE KIDNEY FAILURE UNSPECIFIED]Onset: 78-95-2963ZyrealoeZfmcw bronchitis (20 sources)Acute bronchitis; Translations: [Acute bronchitis due to other specified organisms]Onset: 673154-88-6049RiimzqdcXuwqjey disorders (20 sources)Generalized anxiety disorder; Translations: [Generalized anxiety disorder]44-37-2115MvsbjkdKdkrzkm kidney disease (20 sources)Chronic kidney disease stage 3A ; Translations: [Stage 3a chronic kidney disease]Onset: 880472-11-0290SwefwccQurrxyl obstructive pulmonary disease and bronchiectasis (20 sources)Mucopurulent chronic bronchitis; Translations: [Mucopurulent chronic bronchitis]Onset: 27-68-0690YwhnpkjBeihxkzbzt associated with dizziness or vertigo (12 sources)Dizziness and giddiness; Translations: [Dizziness and giddiness] Onset: 788161-26-0838MqyqlalaDkvqfhcnmb and other anemia (14 sources)Anemia, unspecified; Translations: [Anemia, unspecified]Onset: 98-30-7844GxkwamzjNxvkzcpqde and other anemia (1 source)Iron deficiency anemia, unspecified; Translations: [IRON DEFICIENCY ANEMIA UNSPECIFIED]Onset: 62-41-0021AgilburtRqyxciczhg and other anemia (1 source)Dietary folate deficiency anemiaEpisodicDeficiency and other anemia (20 sources)Pernicious anemia; Translations: [Vitamin B12 deficiency anemia due to intrinsic factor deficiency]Onset: 983084-55-8854KttzscloGisrcvcvja and other anemia (19 sources)Vitamin B12 deficiency anemia due to intrinsic factor deficiency; Translations: [Pernicious anemia]EpisodicDeficiency and other anemia (20 sources)Anemia; Translations: [Anemia, unspecified]Onset: 03-30-2024 00-64-6391VvljnwrwDwcazysuy of lipid metabolism (20 sources)Hypertriglyceridemia; Translations: [Pure hyperglyceridemia]Onset: 44-02-6490WzdtdmrPfbnyrdnujmykp and diverticulitis (20 sources)Diverticular disease of colon; Translations: [Diverticulosis of intestine, part unspecified, without perforation or abscess without bleeding] 47-99-1979QivhefgYsvqayxxmj disorders (20 sources)Gastroesophageal reflux disease; Translations: [Gastro-esophageal reflux disease without esophagitis]Onset: 11-14-2021 Resolved: 89-06-7128NiyhlmbShvulqkhx hypertension (20 sources)Essential hypertension; Translations: [Essential (primary) hypertension]Onset: 15-35-7982YeswfjjLjoge of unknown origin (1 source)Fever, unspecified; Translations: [FEVER UNSPECIFIED]Onset: 12-29-2022 EpisodicFluid and electrolyte disorders (20 sources)Hypokalemia; Translations: [Hypokalemia]Onset: EpisodicHemorrhoids (20 sources)Hemorrhoids; Translations: [Unspecified hemorrhoids]Episodic Hypertension with complications and secondary hypertension (20 sources)Chronic kidney disease due to hypertension; Translations: [Hypertensive chronic kidney disease withstage 1 through stage 4 chronic kidney disease, or unspecified chronic kidney disease]ChronicImmunizations and screening for infectious disease (4 sources)Contact with and (suspected) exposure to other viral communicable diseases; Translations: [Vaccination given]EpisodicIntestinal infection (1 source)Viral intestinal infection, unspecified; Translations: [VIRAL INTESTINAL INFECTION UNSPEC]Onset: 95-18-0424ZsfcyzotLlznlnc and fatigue (20 sources)Malaise; Translations: [Other malaise]Onset: 65-60-6905Oufybhxm Menopausal disorders (20 sources)Atrophic vaginitis; Translations: [Postmenopausal atrophic vaginitis]Onset: 904995-20-9799WksdofiLkbhlceqox disorders (2 sources)Drug therapy finding; Translations: [Hormone replacement therapy] 02-39-9797ZarqtgbpKxvh disorders (20 sources)Mild recurrent major depression; Translations: [Major depressive disorder, recurrent, mild]Onset: 25-75-0267EozsrrsXfxnytri sclerosis (20 sources)Multiple sclerosis; Translations: [Multiple sclerosis]Onset: 89-08-9299KedggqrJlsdfk and vomiting (20 sources)Nausea and vomiting; Translations: [Nausea with vomiting, unspecified]Onset: 06-14-2014 Resolved: 60-65-4851LvhzzdqlOccoffehmsxv breast conditions (20 sources)Fibrocystic disease of breast; Translations: [Diffuse cystic mastopathy of unspecified breast]Onset: 423145-83-7345NnonqwzUssdrvmelmq deficiencies (1 source)Moderate protein-calorie malnutrition; Translations: [MODERATE PROTEIN-CALORIE MLNUTRIT]Onset: 89-80-4534JhahhueHtyqkibleeb deficiencies (1 source)Deficiency of other specified B group vitaminsEpisodicOsteoarthritis (2 sources)Osteoarthritis; Translations: [Polyosteoarthritis, unspecified] ChronicOther aftercare (1 source)Other technician terminal and repeater (current) drug therapy; Translations: [OTH SOFTWARE APPLICATION TESTER CURRENT DRUG THERAPY]Onset: 26-40-9906BxhmkngiZbggx aftercare (2 sources)Long-term current use of drug therapy; Translations: [Other technician terminal and repeater (current) drug therapy]EpisodicOther and unspecified benign neoplasm (2 sources)Benign neoplasm of colon; Translations: [Benign neoplasm of colon] EpisodicOther and unspecified benign neoplasm (2 sources)Polyp of colon; Translations: [Polyp of colon]EpisodicOther bone disease and musculoskeletal deformities (2 sources)Disorder of bone; Translations: [Disorder of bone, unspecified] EpisodicOther congenital anomalies (2 sources)Congenital spondylolysis of lumbosacral region; Translations: [Congenital spondylolysis, lumbosacral region]Onset: 02-78-4676DhllfuiUvamn connective tissue disease (20 sources)Fibromyalgia; Translations: [Fibromyalgia]EpisodicOther connective tissue disease (2 sources)FibromyalgiaEpisodicOther connective tissue disease (12 sources)Foot pain; Translations: [Pain in left foot]13-50-3211CdjukgdhYocxd connective tissue disease (4 sources)Pain in left foot; Translations: [Pain in limb]53-96-8430Jnpnusrz Other connective tissue disease (20 sources)Bilateral trochanteric bursitis; Translations: [Trochanteric bursitis, right hip]Onset: 679295-98-3061HyxnblhcBilxd connective tissue disease (1 source)Spasm of cervical paraspinous muscle; Translations: [Other muscle spasm]36-10-4744SjgfyzfkEngvg diseases of kidney and ureters (2 sources)Disorder of kidney and/or ureter; Translations: [Other specified disorders of kidney and ureter]ChronicOther diseases of veins and lymphatics (20 sources)Peripheral venous insufficiency; Translations: [Venous insufficiency (chronic) (peripheral)]Onset: 081873-30-0934DbfwmtmaIrgdh diseases of veins and lymphatics (5 sources)Venous insufficiency (chronic) (peripheral); Translations: [Venous (peripheral) insufficiency, unspecified]EpisodicOther ear and sense organ disorders (2 sources)Infective otitis externa; Translations: [Other infective otitis externa, right ear]EpisodicOther gastrointestinal disorders (20 sources)Irritable bowel syndrome; Translations: [Irritable bowel syndrome without diarrhea]35-89-8424OasdfmuLevnd gastrointestinal disorders (5 sources)Irritable bowel syndrome without diarrhea; Translations: [Irritable bowel syndrome]ChronicOther gastrointestinal disorders (2 sources)Irritable bowel syndrome with diarrhea; Translations: [Irritable bowel syndrome with diarrhea]ChronicOther gastrointestinal disorders (20 sources)Diarrhea; Translations: [Diarrhea, unspecified]Onset: 01-09-2017 95-96-6392SblvqbahMqtyq gastrointestinal disorders (8 sources)Diarrhea, unspecified; Translations: [Diarrhea]Onset: 12-05-2021 Resolved: 79-39-0082EfhwngrzQshwc injuries and conditions due to external causes (2 sources)History of fall; Translations: [History of falling]EpisodicOther lower respiratory disease (1 source)Acute respiratory distress; Translations: [ACUTE RESPIRATORY DISTRESS] Onset: 98-95-9211NaymowmdKygzy lower respiratory disease (1 source)Other nonspecific abnormal finding of lung fieldEpisodicOther nervous system disorders (20 sources)Brachial plexus disorder; Translations: [Brachial plexus disorders] Onset: 635422-36-9569TpbbceoMkvsu nervous system disorders (20 sources)Disorder of nerve root and/or plexus; Translations: [Other nerve root and plexus disorders]Onset: 503254-26-8314OgdjqxyZpgex non-traumatic joint disorders (2 sources)Pain in right hip joint; Translations: [Pain in right hip]Episodic Other nutritional; endocrine; and metabolic disorders (1 source)Hypocalcemia; Translations: [Hypocalcemia]75-21-9453PwrombhLwnxa nutritional; endocrine; and metabolic disorders (3 sources)Hypocalcemia; Translations: [Hypocalcemia]90-85-3579BhkamyoYpxaa nutritional; endocrine; and metabolic disorders (20 sources)Loss of appetite; Translations: [Anorexia]Onset: 89-64-8066Ldlkfmqt Other nutritional; endocrine; and metabolic disorders (2 sources)AnorexiaOnset: 11-14-2021 Resolved: 15-55-1937ZidqnkwcUylxs nutritional; endocrine; and metabolic disorders (1 source)Body mass index (BMI) 25.0-25.9, adult; Translations: [BODY MASS INDEX BMI 25.0-25.9 ADULT]Onset: 07-00-7265XysoaxbxGfgzy nutritional; endocrine; and metabolic disorders (2 sources)Overweight; Translations: [Overweight]EpisodicOther screening for suspected conditions (not mental disorders or infectious disease) (20 sources)Other specified abnormal findings of blood chemistry; Translations: [Imaging of abdomen abnormal]Onset: 03-19-2019 Resolved: 15-82-2627HwqgntdsMdaji upper respiratory disease (20 sources)Seasonal allergic rhinitis; Translations: [Other seasonal allergic rhinitis]Onset: 52-02-4175YfkbfleAqqbj upper respiratory disease (3 sources)Other seasonal allergic rhinitis; Translations: [Seasonal allergic rhinitis]ChronicOther upper respiratory disease (2 sources)Chronic rhinitis; Translations: [Chronic rhinitis]18-15-2165Equlylv Other upper respiratory infections (11 sources)Acute sinusitis; Translations: [Acute sinusitis, unspecified]Onset: 31-73-6487ChdrrbipOultpewtc (except that caused by tuberculosis or sexually transmitted disease) (5 sources)Pneumonia, unspecified organism; Translations: [PNEUMONIA UNSPECIFIED ORGANISM]Onset: 58-98-6302FeitxzhvJhipqixw codes; unclassified (20 sources)Early satiety; Translations: [Early satiety]EpisodicResidual codes; unclassified (2 sources)Early satietyOnset: 11-14-2021 Resolved: 62-62-4589YfxbpsxvMijsiqxk codes; unclassified (2 sources)Generalized edemaEpisodicResidual codes; unclassified (2 sources)Requires influenza virus vaccination; Translations: [Need for prophylactic vaccination and inoculation, Influenza]EpisodicResidual codes; unclassified (2 sources)Postmenopausal state; Translations: [Asymptomatic menopausal state] EpisodicResidual codes; unclassified (1 source)Other general symptoms and signsEpisodicSpondylosis; intervertebral disc disorders; other back problems (20 sources)Lumbar spondylosis; Translations: [Spondylosis without myelopathy or radiculopathy, lumbar region]Onset: 39-16-6901VovaoahSlinemc and strains (16 sources)Lumbar sprain; Translations: [Sprain of other parts of lumbar spine and pelvis, initial encounter]Onset: 378442-02-2104KttdyssrXyqbzbnlf- related disorders (20 sources)Tobacco user; Translations: [Nicotine dependence, cigarettes, in remission]Onset: 19-86-8518NerlgnePnahaevqzjfs (3 sources)LOW BACK PAIN, UNSPECIFIED; Translations: [LOW BACK PAIN, UNSPECIFIED]Onset: 63-38-7444Stkihpdgrtzj (2 sources)Long-term current use of drug therapy; Translations: [Long-term (current) use of other medications]Onset: 63-33-0539Gflsqdt tract infections (20 sources)Cystitis; Translations: [Cystitis, unspecified without hematuria] Episodic Past or Other Problems Problem ClassificationProblemDateDocumented DateEpisodic/ChronicAbdominal hernia (2 sources)Diaphragmatic hernia; Translations: [Diaphragmatic hernia without mention of obstruction or gangrene]Onset: 17-46-3666FpigchhyZojji posthemorrhagic anemia (2 sources)Acute posthemorrhagic anemia; Translations: [Acute posthemorrhagic anemia] Resolved: 22-25-4018ZpvmokttVhylhykwn infection; unspecified site (2 sources)Bacterial infectious disease; Translations: [Bacterial infection, unspecified, in conditions classified elsewhere and of unspecified site]Onset: 40-08-7806QqtohkgkEymnzyz dysrhythmias (20 sources)Palpitations; Translations: [Bradycardia, unspecified]Onset: 68-00-2571OvobrkccEpnvdjn kidney disease (8 sources)Chronic kidney disease; Translations: [CHRONIC KIDNEY DISEASE STAGE 3A]Onset: 64-00-5127Rsdiszzgqf disorders (6 sources)Esophageal disorders; Translations: [Gastro-esophageal reflux disease with esophagitis, without bleeding]Gastritis and duodenitis (2 sources)Acute gastritis; Translations: [Acute gastritis without mention of hemorrhage]Onset: 27-50-6080BlbxltooXejwnohsnrazuvaq hemorrhage (2 sources)Hemorrhage of rectum and anus; Translations: [Hemorrhage of rectum and anus]Onset: 22-76-6983OhvmaxjpOgydwfiwnxlhb symptoms and ill-defined conditions (2 sources)Dysuria; Translations: [Dysuria]Onset: 39-61-2596Kxvmndzk Inflammation; infection of eye (except that caused by tuberculosis or sexually transmitteddisease) (2 sources)Blepharitis; Translations: [Blepharitis, unspecified]Onset: 00-44-6527VvuidatgHdlkubhmybrr injury (20 sources)Concussion injury of body structure; Translations: [Concussion] Onset: 883484-18-3263ZdzxcaxhKcvvzahiczlga gastroenteritis (2 sources)Non-infective enteritis and colitis; Translations: [Noninfective gastroenteritis and colitis, unspecified]Onset: 07-55-4295AqkdvjxnOuvfgrlqewb chest pain (2 sources)Chest pain; Translations: [Chest pain, unspecified]Onset: 03-08-2015 EpisodicOther acquired deformities (20 sources)Acquired spondylolisthesis; Translations: [Spondylolisthesis, site unspecified]Onset: 287738-30-7846BlcgxmxaSmaqe connective tissue disease (2 sources)Pain in left lower limb; Translations: [Pain in left leg]Onset: 07-66-7632FhgrtbkfOdgun connective tissue disease (20 sources)Muscle pain; Translations: [Myalgia, unspecified site]Onset: 652292-46-5126BnsoqenwKfqua connective tissue disease (20 sources)Pain in left foot; Translations: [Pain in left foot]Onset: 696452-34-8282HdjchugzRhljp gastrointestinal disorders (2 sources)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; Translations: [Irritable bowel syndrome with constipation] Resolved: 62-47-4052IncmplqYohoi lower respiratory disease (2 sources)Dyspnea; Translations: [Dyspnea, unspecified]Onset: 03-08-2015 EpisodicOther nervous system disorders (20 sources)Skin sensation disturbance; Translations: [Unspecified disturbances of skin sensation]Onset: 617731-19-7904AqacchbfDkmuj skin disorders (2 sources)Generalized hyperhidrosis; Translations: [Generalized hyperhidrosis] Onset: 22-97-5631TikroylxFcbhkejc codes; unclassified (4 sources)Asymptomatic menopausal state; Translations: [ASYMPTOMATIC MENOPAUSAL STATE]Onset: 44-89-1339LuefcxbrHmlmwenb codes; unclassified (2 sources)Symptom: generalized; Translations: [Other general symptoms and signs] Resolved: 12-61-7641LettxdnnFhohsvury and history of mental health and substance abuse codes (3 sources)Personal history of nicotine dependence; Translations: [History of tobacco use]Onset: 34-88-6158HedopedkHbphizjhitj; intervertebral disc disorders; other back problems (20 sources)Low back pain; Translations: [Low back pain, unspecified]Onset: 441596-11-9628LmjeoqdcYpaqhocuyit injury; contusion (20 sources)Contusion of hip; Translations: [Contusion of left hip, initial encounter]Onset: 06-01-2024 Resolved: 766540-97-4603WrjyzhqyVsiazozglsmb (1 source)LOW BACK PAIN, UNSPECIFIED; Translations: [LOW BACK PAIN, UNSPECIFIED] Onset: 38-29-6327Gaskhyicvdqc (2 sources)Acute candidiasis of vulva and vagina; Translations: [Acute candidiasis of vulva and vagina] Resolved: 63-78-5416Xkboj infection (2 sources)Viral disease; Translations: [Unspecified viral infection, in conditions classified elsewhere and of unspecified site]Onset: 10-23-2016 Episodic Results Test NameValueInterpretationReference RangeFacilityMM screening mammo BI w/CADon 29-58-0270AI screening mammo BI w/[facility] [address] [place] [address] Mammography Report Signed Patient: Gina Pierre#: [id number] : 1940 Acct:[id number] Age/Sex: 85 / F Adm Date: 06/29/25 Loc: CT Room: Type: [facility] CLI Attending Dr: Aamir Xavier DO Ordering Provider: Aamir Xavier DO Date of Service: 06/29/25 Procedure(s): MM screening mammo BI w/CAD Accession Number(s): ([id number]) MM/MM screening mammo BI w/CAD: screening Copies to: Kyle Obrien,DO Aamir Xavier DO BILATERAL Screening Full Field digital mammogram with 3-D imaging. Full field digital CC and MLO imaging performed. CAD utilized. COMPARISON: 06/23/2024 HISTORY: Annual screening BREAST COMPOSITION: Scattered fibroglandular densities of the breast parenchyma identified BREAST CALCIFICATIONS: Benign calcifications present. VASCULAR CALCIFICATIONS: None ARCHITECTURAL DISTORTION: None BREAST NODULE: None AXILLARY LYMPH NODES: Normal POSTSURGICAL CHANGES: None MM/MM screening mammo BI w/CAD IMPRESSION: No mammographic evidence of malignancy. Routine follow-up recommended in one year. RESULT CODE: 2 Benign Findings(s) DENSITY CODE: 2 (approximately 25-50% glandular) There are scattered areas of fibroglandular density. FOLLOW UP: 1YR THE FALSE-NEGATIVE RATE OF MAMMOGRAPHY IS APPROXIMATELY 10%. IMAGING OF A PALPABLE ABNORMALITY MUST BE BASED ON CLINICAL GROUNDS. PATIENT WAS ENTERED INTO A REMINDER SYSTEM WITH A TARGET DUE DATE FOR THE NEXT MAMMOGRAM. Impression dictated by: Damaso Springer M.D. 06/29/2025 2:46 PM Dictation Location: [facility] Dictated By: Damaso Springer DO 06/29/25 1443 Signed By: 06/29/[address] [place] [address] Physician GroupMammography reportOrdered By: Damaso Springer on 16-01-6869Slnqpdsbfd imaging [facility] [address] [place] [address] Mammography Report Signed Patient: Gina Pierre MR#: [id number] : 1940 Acct:[id number] Age/Sex: 85 / F Adm Date: 5 Loc: CT Room: Type: [facility] Attending Dr: Aamir Xavier DO Ordering Provider: Aamir Xavier DO Date of Service: 06/29/25 Procedure(s): MM screening mammo BI w/CAD Accession Number(s): ([id number]) MM/MM screening mammo BI w/CAD: screening Copies to: DO Aamir Franz DO~ BILATERAL Screening Full Field digital mammogram with 3-D imaging. Full field digital CC and MLO imaging performed. CAD utilized. COMPARISON: 06/23/2024 HISTORY: Annual screening BREAST COMPOSITION: Scattered fibroglandular densities of the breast parenchyma identified BREAST CALCIFICATIONS: Benign calcifications present. VASCULAR CALCIFICATIONS: None ARCHITECTURAL DISTORTION: None BREAST NODULE: None AXILLARY LYMPH NODES: Normal POSTSURGICAL CHANGES: None MM/MM screening mammo BI w/CAD IMPRESSION: No mammographic evidence of malignancy. Routine follow-up recommended in one year. RESULT CODE: 2 Benign Findings(s) DENSITY CODE: 2 (approximately 25-50% glandular) There are scattered areas of fibroglandular density. FOLLOW UP: 1YR THE FALSE-NEGATIVE RATE OF MAMMOGRAPHY IS APPROXIMATELY 10%. IMAGING OF A PALPABLE ABNORMALITY MUST BE BASED ON CLINICAL GROUNDS. PATIENT WAS ENTERED INTO A REMINDER SYSTEM WITH A TARGET DUE DATE FOR THE NEXT MAMMOGRAM. Impression dictated by: Damaso Springer M.D. 06/29/2025 2:46 PM Dictation Location: [facility] Dictated By: Damaso Springer DO 06/29/25 1443 Signed By: 06/29/25 1446 [facility] CenterBasophils Auto (Bld) [#/Vol]Ordered By: Kyle Obrien on 84-39-5332Kggqygwiw (Bld) [#/Vol]0.0 10 3/uL0.0-0.1FSt. Vincent HospitalBasophils/100 WBC Auto (Bld)Ordered By: Kyle Obrien on 22-76-6355Dzbpgmiiy/100 WBC (Bld)0.3 %0.2-2.0[facility] Cholesterol in LDL Calc [Mass/Vol]Ordered By: Kyle Obrien on 06-21-2025 Cholesterol in LDL [Mass/Vol]113.2 mg/dLAshtabula County Medical CenterComment on above:<100 mg/dl PGVKNMP660-702 mg/dl NEAR OR ABOVE VUSSBUS120-697 mg/dl BORDERLINE CHDL081-471 mg/dl HIGH>190 mg/dl VERY HIGHCholesterol in VLDL Calc [Mass/Vol]Ordered By: Kyle Obrien on 48-13-0632Osfhysuqbcb in VLDL [Mass/Vol] 22.8 mg/dLAshtabula County Medical CenterEosinophils/100 WBC Auto (Bld)Ordered By: Kyle Obrien on 42-29-9896Swkeisyubyf/100 WBC (Bld)3.4 %0.9-7.0[facility] CenterErythrocyte distribution width Auto (RBC) [Ratio]Ordered By: Kyle Obrien on 94-77-2720Njmultzoebu distribution width (RBC) [Ratio]13.7 %11.0-15.0[facility] CenterGlobulin Calc (S) [Mass/Vol]Ordered By: Kyle Obrien 00-31-6399Wjkwrqbx (S) [Mass/Vol]3.5 g/dLAshtabula County Medical CenterGlomerular filtration rate (GFR) estimation in non- AmericanOrdered By: Kyle Obrien on 07-11-1896KED/1.73 sq M.predicted among non-blacks MDRD (S/P/Bld) [Vol rate/Area]46 mL/min/{1.73_m2}Low>=60 mL/min/1.73m [address] [place], [place] [address]Hematocrit Auto (Bld) [Volume fraction]Ordered By: Kyle Obrien 59-69-1962Thdatlvfmd (Bld) [Volume fraction]31.9 %Low 36.0-48.0[facility] CenterHemoglobin [Mass/volume] in Blood Ordered By: Kyle Obrien 70-47-5007Tyfkjkrocj (Bld) [Mass/Vol]9.9 g/dLLow 12.0-16.0[facility] CenterIron binding capacity [Mass/volume] in Serum or PlasmaOrdered By: Kyle Obrien 75-23-5431Nawk binding capacity [Mass/Vol]517.0 ug/iRDzvx058.0-450.0[facility] CenterIron saturation [Mass Fraction] in Serum or PlasmaOrdered By: Kyle Obrien 78-33-0283Aqdm saturation [Mass fraction]9.1 %[facility] Laboratory - Chemistry and Chemistry - challengeOrdered By: Kyle Obrien on 55-43-6995Qsddgxs [Mass/Vol]3.6 g/dL3.4-5.0[facility] CenterALP [Catalytic activity/Vol]54 U/A28-927WldlaskfrAshtabula County Medical CenterALT [Catalytic activity/Vol]16 U/M90-91AvxldfydgAshtabula County Medical CenterAST [Catalytic activity/Vol]23 U/O72-70RqpxghtqlAshtabula County Medical CenterBilirubin [Mass/Vol]0.5 mg/dL0.2-1.0[facility] CenterCalcium [Mass/Vol]9.2 mg/dL8.5-10.1FSt. Vincent HospitalChloride [Moles/Vol]104 mmol/L 98-107[facility] CenterCholesterol [Mass/Vol]194 mg/dL<=200 [facility] CenterCholesterol in HDL [Mass/Vol]58 mg/dL40-60 [facility] CenterComment on above:> or =60 mg/dl - LOW CARDIOVASCULAR RISK<40 mg/dl - HIGH CARDIOVASCULAR RISKCO2 [Moles/Vol]28.2 mmol/L21.0-32.0[facility] CenterCobalamin (Vitamin B12) [Mass/Vol]774 pg/nM488-3371EbldogkoeAshtabula County Medical CenterComment on above: Performed at: - [facility] [address] [id number] Director: Nicanor Omalley PhD, Phone: [phone] [Mass/Vol]1.13 mg/dLHigh0.55-1.02[facility] CenterFerritin [Mass/Vol]13.0 ng/mL 8.0-252.0[facility] CenterGFR/1.73 sq M.predicted MDRD (S/P/Bld) [Vol rate/Area]56 mL/min/{1.73_m2}Low>=60 mL/min/1.73m 2FSt. Vincent HospitalGlucose [Mass/Vol]88 mg/lT57-797KatevoiztAshtabula County Medical Center Iron [Mass/Vol]47.0 ug/dLLow50.0-170.0[facility] CenterPotassium [Moles/Vol]4.0 mmol/L3.5-5.1FSt. Vincent HospitalProtein [Mass/Vol] 7.1 g/dL6.4-8.2FProMedica Defiance Regional Hospitalodium [Moles/Vol]143 mmol/L 136-145[facility] CenterTriglyceride [Mass/Vol]114 mg/dL<=150 [facility] CenterTSH Qn2.039 m[IU]/L0.358-3.740[facility] Medical CenterUrea nitrogen [Mass/Vol]18.0 mg/dL7.0-18.0[facility] CenterUrea nitrogen/Creatinine [Mass ratio]15.9 mg/mgAshtabula County Medical CenterLaboratory - Hematology and Cell countsOrdered By: Kyle Obrien on 22-38-2089Kwyltztb granulocytes/100 WBC (Bld)0.6 %High0.0-0.5 [facility] CenterLeukocytes [#/volume] corrected for nucleated erythrocytes in Blood by Automated counOrdered By: Kyle Obrien on 06-21-2025 WBC corrected for nucl RBC Auto (Bld) [#/Vol]3.3 10 3/uLLow4.0-11.0[facility] CenterLymphocytes Auto (Bld) [#/Vol]Ordered By: Kyle Obrien on 49-63-6565Ejbrbxynyhu (Bld) [#/Vol]0.9 10 3/uLLow1.2-3.8[facility] CenterLymphocytes/100 WBC Auto (Bld)Ordered By: Kyle Obrien on 20-76-4482Vbgiomembow/100 WBC (Bld)27.1 %20.5-60.0[facility] CenterMC Auto (RBC) [Entitic mass]Ordered By: Kyle Obrien on 26-36-1023JOP (RBC) [Entitic mass]27.2 pg26.7-34.0[facility] CenterMCHC Auto (RBC) [Mass/Vol]Ordered By: Kyle Obrien on 94-43-2097WLXV (RBC) [Mass/Vol]31.0 g/dL29.9-35.2FSt. Vincent HospitalMCV Auto (RBC) [Entitic vol] Ordered By: Kyle Obrien on 68-32-9647TNZ (RBC) [Entitic vol]87.6 fL81.0-99.0 [facility] CenterMonocytes Auto (Bld) [#/Vol]Ordered By: Kyle Obrien on 09-04-9254Rcdsnajrt (Bld) [#/Vol]0.2 10 3/uLLow0.3-0.8[facility] CenterMonocytes/100 WBC Auto (Bld)Ordered By: Kyle Obrien on 23-28-5283Arrjwreem/100 WBC (Bld)7.0 %1.7-12.0[facility] Neutrophils Auto (Bld) [#/Vol]Ordered By: Kyle Obrien on 54-62-1046Qzqsdcafkai (Bld) [#/Vol]2.0 10 3/uL1.4-6.5FSt. Vincent HospitalNeutrophils/100 WBC Auto (Bld)Ordered By: Kyle Obrien on 66-40-7841Hutqomnnmew/100 WBC (Bld) 61.6 %43.0-75.0[facility] CenterNo Panel InformationOrdered By: Kyle Obrien on 91-62-8675Jjtkfniigav # (Auto)0.1 10 3/uL0.0-0.7FSt. Vincent HospitalFolate32.90 ng/mL8.60-58.90[facility] CenterImmature Granulocyte # (Auto)0.02 10 3/uL0.00-0.03[facility] CenterPlatelet mean volume Auto (Bld) [Entitic vol]Ordered By: Kyle Obrien on 58-09-1484Nhrigmsd mean volume (Bld) [Entitic vol]11.1 fL9.5-13.5 [facility] CenterPlatelets Auto (Bld) [#/Vol]Ordered By: Kyle Obrien on 51-49-9630Qkvxbscmq (Bld) [#/Vol]189 10 3/oU279-595IelznnxvyAshtabula County Medical CenterRBC Auto (Bld) [#/Vol]Ordered By: Kyle Obrien on 43-75-8191QAO (Bld) [#/Vol]3.64 10 6/uLLow4.20-5.40[facility] Northerum or plasma albumin/globulin mass ratioOrdered By: Kyle Obrien on 47-76-8122Jwakvck/Globulin [Mass ratio]1.0 {ratio}[facility] Northerum or plasma anion gap determinationOrdered By: Kyle Obrien on 62-20-4350Gjzyh gap [Moles/Vol]14.8 mmol/LFProMedica Defiance Regional Hospitalerum or plasma total cholesterol/high density lipoprotein (HDL) cholesterol mass rat Ordered By: Kyle Obrien on 47-50-0633Zknxdqjlxzt.total/Cholesterol in HDL [Mass ratio]3.3 {ratio}[facility] CenterComment on above:3.3 - 4.4 LOW RISK4.4 - 7.1 AVERAGE RISK7.1 - 11.0 MODERATE RISK>11.0 HIGH RISK Basophils Auto (Bld) [#/Vol]on 58-15-1543Sozhrujpi (Bld) [#/Vol]0.0 10 3/uL 0.0-0.1FSt. Vincent HospitalBasophils/100 WBC Auto (Bld)on 75-99-8734Qayxscbdt/100 WBC (Bld)0.2 %0.2-2.0[facility] Eosinophils/100 WBC Auto (Bld)on 50-20-6983Zrfekakujle/100 WBC (Bld)0.2 %Low 0.9-7.0[facility] CenterErythrocyte distribution width Auto (RBC) [Ratio]on 56-29-8064Tmgglzokdra distribution width (RBC) [Ratio]13.6 % 11.0-15.0[facility] CenterEstimated glomerular filtration rate (GFR) non- Americanon 44-48-4340EHM/1.73 sq M.predicted among non-blacks MDRD (S/P/Bld) [Vol rate/Area]mL/min/{1.73_m2}>=60 mL/min/1.73m 2FSt. Vincent HospitalHematocrit Auto (Bld) [Volume fraction]on 02-08-2025 Hematocrit (Bld) [Volume fraction]32.1 %Low36.0-48.0[facility] CenterHemoglobin [Mass/volume] in Bloodon 64-72-6947Jqtrtgqynr (Bld) [Mass/Vol] 10.7 g/dLLow12.0-16.0[facility] CenterLaboratory - Chemistry and Chemistry - challengeon 00-67-7008Ayymxpr [Mass/Vol]8.7 mg/dL8.5-10.1FSt. Vincent HospitalChloride [Moles/Vol]106 mmol/U37-196ZywfkvusrAshtabula County Medical CenterCO2 [Moles/Vol]27.9 mmol/L21.0-32.0[facility] CenterCreatinine [Mass/Vol]0.79 mg/dL0.55-1.02[facility] GFR/1.73 sq M.predicted MDRD (S/P/Bld) [Vol rate/Area]mL/min/{1.73_m2}>=60 mL/min/1.73m 2FSt. Vincent HospitalGlucose [Mass/Vol]123 mg/dLHigh 74-106[facility] CenterPotassium [Moles/Vol]3.7 mmol/L3.5-5.1 [facility] Northodium [Moles/Vol]141 mmol/V902-054EertdwrsxAshtabula County Medical CenterUrea nitrogen [Mass/Vol]15.0 mg/dL7.0-18.0[facility] CenterUrea nitrogen/Creatinine [Mass ratio]19.0 mg/mgAshtabula County Medical CenterLaboratory - Hematology and Cell countson 02-08-2025 Immature granulocytes/100 WBC (Bld)0.5 %0.0-0.5FSt. Vincent Hospital Leukocytes [#/volume] corrected for nucleated erythrocytes in Blood by Automated counon 13-48-7617ZMG corrected for nucl RBC Auto (Bld) [#/Vol]4.2 10 3/uL 4.0-11.0[facility] CenterLymphocytes Auto (Bld) [#/Vol]on 47-92-6508Anmdtvodywd (Bld) [#/Vol]0.6 10 3/uLLow1.2-3.8[facility] CenterLymphocytes/100 WBC Auto (Bld)on 23-80-8458Pzsqlmveuwy/100 WBC (Bld)14.6 %Low20.5-60.0[facility] HospitalH Auto (RBC) [Entitic mass]on 56-07-2527YKB (RBC) [Entitic mass]30.3 pg26.7-34.0[facility] CenterMCHC Auto (RBC) [Mass/Vol]on 30-65-9489IWOQ (RBC) [Mass/Vol]33.3 g/dL29.9-35.2FSt. Vincent HospitalMCV Auto (RBC) [Entitic vol]on 78-54-2717GIT (RBC) [Entitic vol]90.9 fL81.0-99.0[facility] CenterMonocytes Auto (Bld) [#/Vol]on 18-30-5130Fmlmropig (Bld) [#/Vol]0.2 10 3/uLLow0.3-0.8[facility] CenterMonocytes/100 WBC Auto (Bld)on 17-12-6344Pmphxwjea/100 WBC (Bld)4.3 %1.7-12.0[facility] Neutrophils Auto (Bld) [#/Vol]on 50-68-0146Kmddlykgbnt (Bld) [#/Vol]3.3 10 3/uL 1.4-6.5FSt. Vincent HospitalNeutrophils/100 WBC Auto (Bld)on 31-94-1741Kxpwwkuhloe/100 WBC (Bld)80.2 %High43.0-75.0[facility] CenterNo Panel Informationon 41-93-7217Ihzlqrvdcdu # (Auto)0.0 10 3/uL0.0-0.7 [facility] CenterImmature Granulocyte # (Auto)0.02 10 3/uL 0.00-0.03[facility] CenterPlatelet mean volume Auto (Bld) [Entitic vol]on 61-16-5497Pvdsukpq mean volume (Bld) [Entitic vol]10.0 fL 9.5-13.5FSt. Vincent HospitalPlatelets Auto (Bld) [#/Vol]on 51-31-0261Dgqqxotzp (Bld) [#/Vol]176 10 3/lF642-616YdrogkctyAshtabula County Medical CenterRBC Auto (Bld) [#/Vol]on 44-49-2355FOV (Bld) [#/Vol]3.53 10 6/uLLow 4.20-5.40[facility] Northerum or plasma anion gap determinationon 24-49-1767Rprpl gap [Moles/Vol]10.8 mmol/LFSt. Vincent HospitalBasophils Auto (Bld) [#/Vol]on 88-71-8191Zmqhslinl (Bld) [#/Vol] 0.0 10 3/uL0.0-0.1FSt. Vincent HospitalBasophils/100 WBC Auto (Bld) on 07-97-8629Qselvxfzi/100 WBC (Bld)0.2 %0.2-2.0[facility] CenterEosinophils/100 WBC Auto (Bld)on 18-84-5175Kqpjeaarnby/100 WBC (Bld)1.6 % 0.9-7.0[facility] CenterErythrocyte distribution width Auto (RBC) [Ratio]on 53-90-8395Jvxqntepejh distribution width (RBC) [Ratio]13.9 % 11.0-15.0[facility] CenterEstimated glomerular filtration rate (GFR) non- Americanon 59-08-2390AJY/1.73 sq M.predicted among non-blacks MDRD (S/P/Bld) [Vol rate/Area]50 mL/min/{1.73_m2}Low>=60 mL/min/1.73m 2FSt. Vincent HospitalGlobulin Calc (S) [Mass/Vol]on 85-70-7348Qjtrqycq (S) [Mass/Vol]3.0 g/dLAshtabula County Medical CenterHematocrit Auto (Bld) [Volume fraction]on 52-89-1108Kyhlolvusi (Bld) [Volume fraction]35.1 %Low36.0-48.0 [facility] CenterHemoglobin [Mass/volume] in Bloodon 02-07-2025 Hemoglobin (Bld) [Mass/Vol]11.6 g/dLLow12.0-16.0[facility] CenterLaboratory - Chemistry and Chemistry - challengeon 27-72-5325Gcxfidv [Mass/Vol]3.5 g/dL3.4-5.0[facility] CenterALP [Catalytic activity/Vol]58 U/Z76-731KoeezfkvdAshtabula County Medical CenterALT [Catalytic activity/Vol]19 U/X35-99QaspoyqmsAshtabula County Medical CenterAST [Catalytic activity/Vol]23 U/F83-46IpaahygpfAshtabula County Medical CenterBilirubin [Mass/Vol]0.5 mg/dL0.2-1.0[facility] CenterBilirubin.direct [Mass/Vol]0.2 mg/dL0.0-0.2FSt. Vincent HospitalCalcium [Mass/Vol]9.2 mg/dL8.5-10.1 [facility] CenterChloride [Moles/Vol]104 mmol/M70-531TavkzkawrAshtabula County Medical CenterCO2 [Moles/Vol]24.4 mmol/L21.0-32.0[facility] CenterCreatinine [Mass/Vol]1.06 mg/dLHigh0.55-1.02[facility] CenterGFR/1.73 sq M.predicted MDRD (S/P/Bld) [Vol rate/Area] mL/min/{1.73_m2}>=60 mL/min/1.73m 2FSt. Vincent HospitalGlucose [Mass/Vol]114 mg/uWYgve13-585ZckbnvrhbAshtabula County Medical CenterPotassium [Moles/Vol]3.6 mmol/L3.5-5.1FSt. Vincent HospitalProtein [Mass/Vol] 6.5 g/dL6.4-8.2FProMedica Defiance Regional Hospitalodium [Moles/Vol]141 mmol/L 136-145[facility] CenterUrea nitrogen [Mass/Vol]21.0 mg/dLHigh 7.0-18.0[facility] CenterUrea nitrogen/Creatinine [Mass ratio] 19.8 mg/mgAshtabula County Medical CenterBilirubin Ql (U)NegativeNEGATIVE [facility] CenterGlucose (U) [Mass/Vol]NegativeNEGATIVEAshtabula County Medical CenterKetones Ql (U)NegativeNEGATIVEAshtabula County Medical CenterpH (U)6.0 [pH]5.0-9.0[facility] Northpecific gravity (U) [Rel density]1.0201.005-1.025[facility] CenterUrobilinogen Qn (U)1.0 {Avery'U}/dL0.2-1.0[facility] CenterLaboratory - Hematology and Cell countson 71-30-5017Knhtxcyi granulocytes/100 WBC (Bld)0.4 % 0.0-0.5FSt. Vincent HospitalLaboratory - Specimen informationon 11-29-5493Qapmdfrfaq (U)CLEARCLEARFSt. Vincent HospitalColor (U)LT. YELLOWYELLOWAshtabula County Medical CenterLaboratory - Urinalysison 02-52-1100Vyukxalsd esterase Test strip Ql (U)NegativeNEGATIVEAshtabula County Medical CenterMucus Ql (Urine sed)TRACEAbnormalNONE SEENAshtabula County Medical CenterNitrite Ql (U)NegativeNEGATIVEAsht[facility] Protein Ql (U)NegativeNEG/TRACEAshtabula County Medical CenterLeukocytes [#/volume] corrected for nucleated erythrocytes in Blood by Automated counon 84-15-5629ILU corrected for nucl RBC Auto (Bld) [#/Vol]4.5 10 3/uL4.0-11.0 [facility] CenterLymphocytes Auto (Bld) [#/Vol]on 02-07-2025 Lymphocytes (Bld) [#/Vol]0.8 10 3/uLLow1.2-3.8[facility] Lymphocytes/100 WBC Auto (Bld)on 95-32-0609Ssxuvugdkhu/100 WBC (Bld)18.2 %Low 20.5-60.0[facility] CenterMCH Auto (RBC) [Entitic mass]on 81-54-8004NWZ (RBC) [Entitic mass]30.0 pg26.7-34.0[facility] CenterMCHC Auto (RBC) [Mass/Vol]on 11-68-7314WZTP (RBC) [Mass/Vol]33.0 g/dL 29.9-35.2FSt. Vincent HospitalMCV Auto (RBC) [Entitic vol]on 68-72-5501IWN (RBC) [Entitic vol]90.7 fL81.0-99.0[facility] CenterMonocytes Auto (Bld) [#/Vol]on 33-69-6250Wmmsyhakc (Bld) [#/Vol]0.3 10 3/uL0.3-0.8[facility] CenterMonocytes/100 WBC Auto (Bld)on 64-61-1724Ndmremurf/100 WBC (Bld)6.3 %1.7-12.0[facility] Neutrophils Auto (Bld) [#/Vol]on 33-09-5373Gnasrmfdesp (Bld) [#/Vol]3.3 10 3/uL 1.4-6.5FSt. Vincent HospitalNeutrophils/100 WBC Auto (Bld)on 66-12-1539Wamcftjtmzj/100 WBC (Bld)73.3 %43.0-75.0[facility] CenterNo Panel Informationon 13-69-0852Rjhtbdpbker # (Auto)0.1 10 3/uL0.0-0.7 [facility] CenterImmature Granulocyte # (Auto)0.02 10 3/uL 0.00-0.03[facility] CenterUrine BacteriaTRACE #/HPFAbnormalNONE SEENAshtabula County Medical CenterUrine Culture ReflexedKettering Health – Soin Medical CenterUrine Occult BloodNegativeNEGATIVEAshtabula County Medical CenterUrine Other CastsNONE SEEN #/LPFNONE [facility] Urine Other CrystalsNone Seen #/HPFNone [facility] Urine RBCNONE SEEN #/HPF0-2FSt. Vincent HospitalUrine Squamous Epithelial CellsMODERATE #/LPFAbnormalNONE/RAREAshtabula County Medical Center Urine WBC0-2 #/HPFAbnormalNONE [facility] TroyPlatelet mean volume Auto (Bld) [Entitic vol]on 27-25-0641Wvkrogxa mean volume (Bld) [Entitic vol]10.4 fL9.5-13.5FSt. Vincent HospitalPlatelets Auto (Bld) [#/Vol]on 08-73-8801Tsmcqvyrl (Bld) [#/Vol]189 10 3/gA891-066CgbufglguAshtabula County Medical CenterRBC Auto (Bld) [#/Vol]on 15-35-6743JLO (Bld) [#/Vol]3.87 10 6/uLLow4.20-5.40[facility] Northerum or plasma albumin/globulin mass ratioon 54-09-1402Swreklq/Globulin [Mass ratio]1.2 {ratio} [facility] Northerum or plasma anion gap determinationon 46-30-1232Wjweb gap [Moles/Vol]16.2 mmol/LFSt. Vincent Hospital Influenza virus B Ag [Presence] in Upper respiratory specimen by Rapid immunoassayon 99-99-5754YUQCQ Ag IA.rapid Ql (Nph)Influenza virus B Ag [Presence] in Upper respiratory specimen by Rapid immunoassayAshtabula County Medical CenterNo Panel Informationon 27-54-6556Dzpovjomp Type A (Rapid)Negative [facility] CenterPO SARS CoV-2 AntigenNegativeAshtabula County Medical CenterBasophils Auto (Bld) [#/Vol]on 37-61-1646Jtlbjthvj (Bld) [#/Vol]Automated basophil count0.0-0.1FSt. Vincent Hospital Basophils/100 WBC Auto (Bld)on 43-59-3033Dqepqdzun/100 WBC (Bld)Automated basophil %0.2-2.0[facility] CenterEosinophils/100 WBC Auto (Bld) on 01-83-4583Zrwcyrrgnfv/100 WBC (Bld)Automated eosinophil %0.9-7.0[facility] CenterErythrocyte distribution width Auto (RBC) [Ratio]on 34-30-0333Skthadcxaqs distribution width (RBC) [Ratio]Erythrocyte distribution width [Ratio] by Automated count11.0-15.0[facility] Estimated glomerular filtration rate (GFR) non- Americanon 09-30-2024 GFR/1.73 sq M.predicted among non-blacks MDRD (S/P/Bld) [Vol rate/Area]Estimated glomerular filtration rate (GFR) non- AmericanLow>=60 mL/min/1.73m 2 [facility] CenterGlobulin Calc (S) [Mass/Vol]on 09-30-2024 Globulin (S) [Mass/Vol]Serum globulin measurement by calculation (mass/volume) [facility] CenterHematocrit Auto (Bld) [Volume fraction]on 00-28-8625Ucpjuodjtc (Bld) [Volume fraction]Hematocrit [Volume Fraction] of Blood by Automated count36.0-48.0[facility] CenterHemoglobin [Mass/volume] in Bloodon 00-00-5483Bisqujjgul (Bld) [Mass/Vol]Hemoglobin [Mass/volume] in Blood12.0-16.0[facility] CenterINR in Platelet poor plasma by Coagulation assayon 77-20-9871KLD Coag (PPP) [Relative time]INR in Platelet poor plasma by Coagulation assayAshtabula County Medical Center Comment on above:DESIRED INR:2.0-3.0 CONDITIONS NOT LISTED BELOW2.5-3.5 FOR PROSTHETIC HEART VALVE REPLACEMENT2.5-3.5 RECURRENT THROMBOSISLaboratory - Chemistry and Chemistry - challengeon 25-56-1635Ecdnyvikq Ql (U)NegativeNEGATIVE [facility] CenterGlucose (U) [Mass/Vol]NegativeNEGATIVEAshtabula County Medical CenterKetones Ql (U)NegativeNEGATIVEAshtabula County Medical CenterpH (U)7.0 [pH]5.0-9.0[facility] Northpecific gravity (U) [Rel density]1.0101.005-1.025[facility] CenterUrobilinogen Qn (U)0.2 {Avery'U}/dL0.2-1.0[facility] CenterAlbumin [Mass/Vol]3.7 g/dL3.4-5.0[facility] CenterALP [Catalytic activity/Vol]53 U/K71-876YzuvcgifjAshtabula County Medical CenterALT [Catalytic activity/Vol]19 U/W48-97XxbrxwnwlAshtabula County Medical CenterAST [Catalytic activity/Vol]22 U/G18-02OeugluelzAshtabula County Medical CenterBilirubin [Mass/Vol]0.5 mg/dL0.2-1.0[facility] CenterCalcium [Mass/Vol]9.2 mg/dL 8.5-10.1FSt. Vincent HospitalChloride [Moles/Vol]102 mmol/L98-107 [facility] CenterCO2 [Moles/Vol]28.2 mmol/L21.0-32.0[facility] CenterCreatinine [Mass/Vol]1.29 mg/dLHigh0.55-1.02[facility] CenterGFR/1.73 sq M.predicted MDRD (S/P/Bld) [Vol rate/Area]48 mL/min/{1.73_m2}Low>=60 mL/min/1.73m 2FSt. Vincent HospitalGlucose [Mass/Vol]110 mg/tEOmwk30-876XdecyhppfAshtabula County Medical CenterLactate [Moles/Vol]1.1 mmol/L0.4-2.0[facility] CenterPotassium [Moles/Vol]3.7 mmol/L3.5-5.1FSt. Vincent HospitalProtein [Mass/Vol] 7.0 g/dL6.4-8.2FProMedica Defiance Regional Hospitalodium [Moles/Vol]138 mmol/L 136-145[facility] CenterTSH Qn3.306 m[IU]/L0.358-3.740[facility] CenterUrea nitrogen [Mass/Vol]18.0 mg/dL7.0-18.0[facility] CenterUrea nitrogen/Creatinine [Mass ratio]14.0 mg/mgAshtabula County Medical CenterLaboratory - Hematology and Cell countson 09-30-2024 Immature granulocytes/100 WBC (Bld)0.4 %0.0-0.5FSt. Vincent Hospital Laboratory - Specimen informationon 32-77-1841Luhjmtxtbg (U)CLEARCLEARFSt. Vincent HospitalColor (U)LT. YELLOWYELLOWAshtabula County Medical CenterLaboratory - Urinalysison 16-09-7515Fbqzaesed esterase Test strip Ql (U) NegativeNEGATIVEAshtabula County Medical CenterMucus Ql (Urine sed)NONE SEEN NONE SEENAshtabula County Medical CenterNitrite Ql (U)NegativeNEGATIVE [facility] CenterProtein Ql (U)NegativeNEG/TRACEAshtabula County Medical CenterLeukocytes [#/volume] corrected for nucleated erythrocytes in Blood by Automated counon 70-58-8002DGX corrected for nucl RBC Auto (Bld) [#/Vol]Leukocytes [#/volume] corrected for nucleated erythrocytes in Blood by Automated coun4.0-11.0[facility] CenterLymphocytes Auto (Bld) [#/Vol]on 36-75-0193Urwnbqmoomb (Bld) [#/Vol]Lymphocytes [#/volume] in Blood by Automated countLow1.2-3.8[facility] Lymphocytes/100 WBC Auto (Bld)on 22-85-7276Avryxmihmcr/100 WBC (Bld) Lymphocytes/100 leukocytes in Blood by Automated count20.5-60.0[facility] HospitalH Auto (RBC) [Entitic mass]on 54-00-1779BWL (RBC) [Entitic mass]MCH [Entitic mass] by Automated count26.7-34.0[facility] CenterMCHC Auto (RBC) [Mass/Vol]on 71-67-8348UGAX (RBC) [Mass/Vol]MCHC [Mass/volume] by Automated count29.9-35.2FSt. Vincent HospitalMCV Auto (RBC) [Entitic vol]on 80-43-4832ZWJ (RBC) [Entitic vol]MCV [Entitic volume] by Automated count81.0-99.0[facility] CenterMonocytes Auto (Bld) [#/Vol]on 67-24-8601Jqrccajzy (Bld) [#/Vol]Automated blood monocyte count0.3-0.8 [facility] CenterMonocytes/100 WBC Auto (Bld)on 09-30-2024 Monocytes/100 WBC (Bld)Automated monocyte %1.7-12.0[facility] CenterNeutrophils Auto (Bld) [#/Vol]on 35-70-8813Vjfrjejxdew (Bld) [#/Vol] Neutrophils [#/volume] in Blood by Automated count1.4-6.5FSt. Vincent HospitalNeutrophils/100 WBC Auto (Bld)on 41-22-5534Kuohxinhmir/100 WBC (Bld)Automated neutrophil %43.0-75.0[facility] CenterNo Panel Informationon 01-94-0468Bmnnw BacteriaTRACE #/HPFAbnormalNONE SEENAshtabula County Medical CenterUrine Culture ReflexedNOAshtabula [facility] Center Urine Occult BloodNegativeNEGATIVEAshtabula County Medical CenterUrine Other CastsNONE SEEN #/LPFNONE SEENAshtabula County Medical CenterUrine Other CrystalsNone Seen #/HPFNone [facility] CenterUrine RBC0-2 #/HPF0-2FSt. Vincent HospitalUrine Squamous Epithelial CellsFEW #/LPFAbnormalNONE/RAREAshtabula County Medical CenterUrine WBC0-2 #/HPF AbnormalNONE [facility] TroyEosinophils # (Auto)0.1 10 3/uL0.0-0.7FSt. Vincent HospitalImmature Granulocyte # (Auto)0.02 10 3/uL0.00-0.03[facility] CenterTroponin I High Wybbujdkmox78.8 pg/mL4.0-51.3FSt. Vincent HospitalComment on above:CUT-OFF POINTS HAVE BEEN ESTABLISHED BASED ON THE FOURTHUNIVERSAL DEFINITION OF MYOCARDIAL INFARCTION. THE UPPERREFERENCE LIMIT (URL) OF TROPONIN, DEFINED THE 99THPERCENTILE OF cTnI DISTRIBUTION IN A REFERENCE POPULATION,HAS BEEN CONFIRMED THE DECISION THRESHOLD FOR MIDIAGNOSIS.99TH PERCENTILE = 51.4 PG/MLNOTE: HIGH-SENSITIVITY TROPONIN ASSAY IS NOT INTENDED TO BEUSED IN ISOLATION BUT SHOULD BE INTERPRETED IN CONJUNCTIONWITH OTHER DIAGNOSTIC AND CLINICAL INFORMATION.Platelet mean volume Auto (Bld) [Entitic vol]on 23-64-0777Oegpmyih mean volume (Bld) [Entitic vol]Platelet mean volume [Entitic volume] in Blood by Automated count9.5-13.5FSt. Vincent HospitalPlatelets Auto (Bld) [#/Vol]on 93-51-0318Cakaxiqyz (Bld) [#/Vol]Platelets [#/volume] in Blood by Automated uafax998-532IuwfaxnsjAshtabula County Medical CenterProthrombin time (PT)on 43-59-7327LM Coag (PPP) [Time]Prothrombin time (PT)9.0-11.6FSt. Vincent HospitalRBC Auto (Bld) [#/Vol]on 17-36-3844IKY (Bld) [#/Vol]Erythrocytes [#/volume] in Blood by Automated countLow4.20-5.40[facility] Northerum or plasma albumin/globulin mass ratioon 05-02-4782Xuswvze/Globulin [Mass ratio]Serum or plasma albumin/globulin mass ratioPremier Health Miami [facility] Hospital Northerum or plasma anion gap determinationon 64-11-9184Xectw gap [Moles/Vol]Serum or plasma anion gap determinationAshtabula County Medical CenterBasophils Auto (Bld) [#/Vol]on 09-46-0088Osoptflhj (Bld) [#/Vol]Automated basophil count0.0-0.1FSt. Vincent HospitalBasophils/100 WBC Auto (Bld)on 95-22-3740Lxkwyribc/100 WBC (Bld)Automated basophil %0.2-2.0[facility] CenterEosinophils/100 WBC Auto (Bld)on 09-23-2024 Eosinophils/100 WBC (Bld)Automated eosinophil %0.9-7.0[facility] CenterErythrocyte distribution width Auto (RBC) [Ratio]on 23-01-1173Jukwgbwptwp distribution width (RBC) [Ratio]Erythrocyte distribution width [Ratio] by Automated count11.0-15.0[facility] CenterEstimated glomerular filtration rate (GFR) non- Americanon 53-52-4741SJB/1.73 sq M.predicted among non-blacks MDRD (S/P/Bld) [Vol rate/Area]Estimated glomerular filtration rate (GFR) non- AmericanLow>=60 mL/min/1.73m 2FSt. Vincent HospitalHematocrit Auto (Bld) [Volume fraction]on 49-57-5407Yfyuymfiuj (Bld) [Volume fraction]Hematocrit [Volume Fraction] of Blood by Automated count 36.0-48.0[facility] CenterHemoglobin [Mass/volume] in Bloodon 36-49-2079Gkgtwqfrjo (Bld) [Mass/Vol]Hemoglobin [Mass/volume] in BloodLow 12.0-16.0[facility] CenterIron binding capacity [Mass/volume] in Serum or Plasmaon 12-64-9008Qpha binding capacity [Mass/Vol]Iron binding capacity [Mass/volume] in Serum or Jxizqw308.0-450.0[facility] CenterIron saturation [Mass Fraction] in Serum or Plasmaon 66-19-6468Pysm saturation [Mass fraction]Iron saturation [Mass Fraction] in Serum or Plasma [facility] CenterLaboratory - Chemistry and Chemistry - challengeon 13-49-6205Tptvusu [Mass/Vol]8.9 mg/dL8.5-10.1FSt. Vincent HospitalChloride [Moles/Vol]104 mmol/Q35-442KokplmcwgAshtabula County Medical CenterCO2 [Moles/Vol]28.5 mmol/L21.0-32.0[facility] Cobalamin (Vitamin B12) [Mass/Vol]815 pg/hR560-9424CojpzltnbAshtabula County Medical CenterComment on above:Performed at: [facility] [place] [id number] Director: Nicanor Omalley PhD, Phone: [phone] Creatinine [Mass/Vol]1.15 mg/dLHigh0.55-1.02[facility] Ferritin [Mass/Vol]43.0 ng/mL8.0-252.0[facility] CenterGFR/1.73 sq M.predicted MDRD (S/P/Bld) [Vol rate/Area]55 mL/min/{1.73_m2}Low>=60 mL/min/1.73m 2FSt. Vincent HospitalGlucose [Mass/Vol]86 mg/zO63-398 [facility] CenterIron [Mass/Vol]89.0 ug/dL50.0-170.0[facility] CenterPotassium [Moles/Vol]3.9 mmol/L3.5-5.1FProMedica Defiance Regional Hospitalodium [Moles/Vol]144 mmol/A582-607NhnwysifwAshtabula County Medical CenterTSH Qn1.732 m[IU]/L0.358-3.740[facility] CenterUrea nitrogen [Mass/Vol]16.0 mg/dL7.0-18.0[facility] CenterUrea nitrogen/Creatinine [Mass ratio]13.9 mg/mgAshtabula County Medical Center Laboratory - Hematology and Cell countson 97-48-5624QTJ (Bld) [Velocity]9 mm/h <=30[facility] CenterImmature granulocytes/100 WBC (Bld)0.9 % High0.0-0.5FSt. Vincent HospitalLeukocytes [#/volume] corrected for nucleated erythrocytes in Blood by Automated counon 17-03-4954ADH corrected for nucl RBC Auto (Bld) [#/Vol]Leukocytes [#/volume] corrected for nucleated erythrocytes in Blood by Automated coun4.0-11.0[facility] Lymphocytes Auto (Bld) [#/Vol]on 07-00-3317Qaftdwbrpek (Bld) [#/Vol]Lymphocytes [#/volume] in Blood by Automated countLow1.2-3.8[facility] CenterLymphocytes/100 WBC Auto (Bld)on 38-16-6377Zevbkjbsknn/100 WBC (Bld) Lymphocytes/100 leukocytes in Blood by Automated count20.5-60.0[facility]H Auto (RBC) [Entitic mass]on 52-22-3542ZAG (RBC) [Entitic mass]MCH [Entitic mass] by Automated count26.7-34.0[facility] CenterMCHC Auto (RBC) [Mass/Vol]on 92-58-0577ENVB (RBC) [Mass/Vol]MCHC [Mass/volume] by Automated count29.9-35.2FSt. Vincent HospitalMCV Auto (RBC) [Entitic vol]on 40-99-1318FCV (RBC) [Entitic vol]MCV [Entitic volume] by Automated count81.0-99.0[facility] CenterMonocytes Auto (Bld) [#/Vol]on 08-26-5965Agjgouczi (Bld) [#/Vol]Automated blood monocyte count0.3-0.8 [facility] CenterMonocytes/100 WBC Auto (Bld)on 09-23-2024 Monocytes/100 WBC (Bld)Automated monocyte %1.7-12.0[facility] CenterNeutrophils Auto (Bld) [#/Vol]on 19-50-0193Apsoqzbqwzo (Bld) [#/Vol] Neutrophils [#/volume] in Blood by Automated count1.4-6.5FSt. Vincent HospitalNeutrophils/100 WBC Auto (Bld)on 95-94-2050Inbqjautpms/100 WBC (Bld)Automated neutrophil %43.0-75.0[facility] CenterNo Panel Informationon 16-82-5987N-Reactive Protein, Quantitative<0.50 mg/dL<=0.50 [facility] CenterEosinophils # (Auto)0.2 10 3/uL0.0-0.7FSt. Vincent HospitalFolate22.90 ng/mL8.60-58.90[facility] CenterImmature Granulocyte # (Auto)0.04 10 3/uLHigh0.00-0.03[facility] CenterPlatelet mean volume Auto (Bld) [Entitic vol]on 75-44-2524Kyxxlgit mean volume (Bld) [Entitic vol]Platelet mean volume [Entitic volume] in Blood by Automated count9.5-13.5FSt. Vincent HospitalPlatelets Auto (Bld) [#/Vol]on 09-35-5785Xrhbclvvy (Bld) [#/Vol]Platelets [#/volume] in Blood by Automated -377JspjlfaqfAshtabula County Medical CenterRBC Auto (Bld) [#/Vol]on 53-15-8429CGS (Bld) [#/Vol]Erythrocytes [#/volume] in Blood by Automated count Low4.20-5.40[facility] CenterReticulocytes/100 RBC Auto (Bld)on 30-54-1376Vldeimqycbrqm/100 RBC (Bld)Reticulocyte % auto0.60-3.10[facility] Northerum or plasma anion gap determinationon 67-26-5066Ejrrp gap [Moles/Vol]Serum or plasma anion gap determinationAshtabula County Medical CenterBasophils Auto (Bld) [#/Vol]on 00-67-2422Tcdgfscjy (Bld) [#/Vol] Automated basophil count0.0-0.1FSt. Vincent HospitalBasophils/100 WBC Auto (Bld)on 06-88-7570Dqghoumrc/100 WBC (Bld)Automated basophil %0.2-2.0 [facility] CenterEosinophils/100 WBC Auto (Bld)on 09-06-2024 Eosinophils/100 WBC (Bld)Automated eosinophil %0.9-7.0[facility] CenterErythrocyte distribution width Auto (RBC) [Ratio]on 85-03-3608Xfsdtsqikml distribution width (RBC) [Ratio]Erythrocyte distribution width [Ratio] by Automated count11.0-15.0[facility] CenterEstimated glomerular filtration rate (GFR) non- Americanon 09-39-5975SQK/1.73 sq M.predicted among non-blacks MDRD (S/P/Bld) [Vol rate/Area]Estimated glomerular filtration rate (GFR) non- AmericanLow>=60 mL/min/1.73m 2FSt. Vincent HospitalHematocrit Auto (Bld) [Volume fraction]on 18-89-7815Zkndomztqh (Bld) [Volume fraction]Hematocrit [Volume Fraction] of Blood by Automated countLow 36.0-48.0[facility] CenterHemoglobin [Mass/volume] in Bloodon 36-62-7702Iyswvpnllb (Bld) [Mass/Vol]Hemoglobin [Mass/volume] in BloodLow 12.0-16.0[facility] CenterLaboratory - Chemistry and Chemistry - challengeon 70-46-0903Lsopbxx [Mass/Vol]8.1 mg/dLLow8.5-10.1FSt. Vincent HospitalChloride [Moles/Vol]111 mmol/SFihi51-310AfmxibrbwAshtabula County Medical CenterCO2 [Moles/Vol]27.9 mmol/L21.0-32.0[facility] Creatinine [Mass/Vol]0.97 mg/dL0.55-1.02[facility] GFR/1.73 sq M.predicted MDRD (S/P/Bld) [Vol rate/Area]mL/min/{1.73_m2}>=60 mL/min/1.73m 2FSt. Vincent HospitalGlucose [Mass/Vol]95 mg/cX45-831 [facility] CenterPotassium [Moles/Vol]3.2 mmol/LLow3.5-5.1 [facility] Northodium [Moles/Vol]146 mmol/AQyhu798-717 [facility] CenterUrea nitrogen [Mass/Vol]11.0 mg/dL7.0-18.0 [facility] CenterUrea nitrogen/Creatinine [Mass ratio]11.3 mg/mg [facility] CenterLaboratory - Hematology and Cell countson 61-85-1772Cyeyfkah granulocytes/100 WBC (Bld)0.6 %High0.0-0.5FSt. Vincent HospitalLeukocytes [#/volume] corrected for nucleated erythrocytes in Blood by Automated counon 84-81-2447PFF corrected for nucl RBC Auto (Bld) [#/Vol]Leukocytes [#/volume] corrected for nucleated erythrocytes in Blood by Automated counLow4.0-11.0[facility] CenterLymphocytes Auto (Bld) [#/Vol]on 12-34-1851Dccqwsadjnz (Bld) [#/Vol]Lymphocytes [#/volume] in Blood by Automated count1.2-3.8[facility] CenterLymphocytes/100 WBC Auto (Bld)on 10-87-0942Lupfogqavxk/100 WBC (Bld)Lymphocytes/100 leukocytes in Blood by Automated count20.5-60.0[facility] HospitalH Auto (RBC) [Entitic mass]on 63-20-9856RYE (RBC) [Entitic mass]MCH [Entitic mass] by Automated count26.7-34.0[facility] CenterMCHC Auto (RBC) [Mass/Vol]on 65-81-9061DZBK (RBC) [Mass/Vol]MCHC [Mass/volume] by Automated count29.9-35.2FSt. Vincent HospitalMCV Auto (RBC) [Entitic vol]on 59-33-5148QKI (RBC) [Entitic vol]MCV [Entitic volume] by Automated count 81.0-99.0[facility] CenterMonocytes Auto (Bld) [#/Vol]on 82-06-6294Awdtbqqog (Bld) [#/Vol]Automated blood monocyte countLow0.3-0.8 [facility] CenterMonocytes/100 WBC Auto (Bld)on 09-06-2024 Monocytes/100 WBC (Bld)Automated monocyte %1.7-12.0[facility] CenterNeutrophils Auto (Bld) [#/Vol]on 46-61-9461Mlegrymvuns (Bld) [#/Vol] Neutrophils [#/volume] in Blood by Automated count1.4-6.5FSt. Vincent HospitalNeutrophils/100 WBC Auto (Bld)on 37-96-5506Irjbosoukpj/100 WBC (Bld)Automated neutrophil %43.0-75.0[facility] CenterNo Panel Informationon 61-12-8021Iwkrbixxhzc # (Auto)0.1 10 3/uL0.0-0.7FSt. Vincent HospitalImmature Granulocyte # (Auto)0.02 10 3/uL0.00-0.03[facility] CenterPlatelet mean volume Auto (Bld) [Entitic vol]on 13-90-5134Ldprkpms mean volume (Bld) [Entitic vol]Platelet mean volume [Entitic volume] in Blood by Automated count9.5-13.5FSt. Vincent Hospital Platelets Auto (Bld) [#/Vol]on 63-52-1985Mopzajavr (Bld) [#/Vol]Platelets [#/volume] in Blood by Automated -230XevywrulwAshtabula County Medical Center RBC Auto (Bld) [#/Vol]on 52-21-1904NKP (Bld) [#/Vol]Erythrocytes [#/volume] in Blood by Automated countLow4.20-5.40[facility] Northerum or plasma anion gap determinationon 78-61-0378Evcxz gap [Moles/Vol]Serum or plasma anion gap determinationAshtabula County Medical CenterBasophils Auto (Bld) [#/Vol]on 86-86-3690Cwlnrjqet (Bld) [#/Vol]Automated basophil count0.0-0.1 [facility] CenterBasophils/100 WBC Auto (Bld)on 09-05-2024 Basophils/100 WBC (Bld)Automated basophil %0.2-2.0[facility] CenterEosinophils/100 WBC Auto (Bld)on 42-37-7667Elwafulgkjx/100 WBC (Bld) Automated eosinophil %0.9-7.0[facility] CenterErythrocyte distribution width Auto (RBC) [Ratio]on 06-13-2935Thindieajch distribution width (RBC) [Ratio]Erythrocyte distribution width [Ratio] by Automated count11.0-15.0 [facility] CenterEstimated glomerular filtration rate (GFR) non- Americanon 13-44-7131IWH/1.73 sq M.predicted among non-blacks MDRD (S/P/Bld) [Vol rate/Area]Estimated glomerular filtration rate (GFR) non- AmericanLow>=60 mL/min/1.73m 2FSt. Vincent HospitalGlobulin Calc (S) [Mass/Vol]on 08-88-6996Opaquscy (S) [Mass/Vol]Serum globulin measurement by calculation (mass/volume)[facility] CenterHematocrit Auto (Bld) [Volume fraction]on 50-52-7410Mpcvqeadfc (Bld) [Volume fraction]Hematocrit [Volume Fraction] of Blood by Automated cgpfjOev91.0-48.0[facility] CenterHemoglobin [Mass/volume] in Bloodon 48-34-6842Dqiswnawap (Bld) [Mass/Vol]Hemoglobin [Mass/volume] in YhtybRtu97.0-16.0[facility] CenterLaboratory - Chemistry and Chemistry - challengeon 09-05-2024 Lactate [Moles/Vol]0.6 mmol/L0.4-2.0[facility] CenterBilirubin Ql (U)NegativeNEGATIVEAshtabula County Medical CenterGlucose (U) [Mass/Vol] NegativeNEGATIVEAshtabula County Medical CenterKetones Ql (U)NegativeNEGATIVE [facility] CenterpH (U)7.5 [pH]5.0-9.0[facility] Northpecific gravity (U) [Rel density]1.0151.005-1.025[facility] CenterUrobilinogen Qn (U)2.0 {Avery'U}/dLAbnormal0.2-1.0[facility] CenterAlbumin [Mass/Vol]3.5 g/dL3.4-5.0[facility] CenterALP [Catalytic activity/Vol]49 U/D90-484LxfgfefnhAshtabula County Medical CenterALT [Catalytic activity/Vol]14 U/E03-25NhugqayhxAshtabula County Medical Center AST [Catalytic activity/Vol]17 U/L70-35LgzwwjvhcAshtabula County Medical Center Bilirubin [Mass/Vol]0.4 mg/dL0.2-1.0[facility] CenterCalcium [Mass/Vol]8.7 mg/dL8.5-10.1FSt. Vincent HospitalChloride [Moles/Vol] 108 mmol/YJemm07-392LcdmyarfwAshtabula County Medical CenterCO2 [Moles/Vol]28.7 mmol/L 21.0-32.0[facility] CenterCreatinine [Mass/Vol]1.03 mg/dLHigh 0.55-1.02[facility] CenterGFR/1.73 sq M.predicted MDRD (S/P/Bld) [Vol rate/Area]mL/min/{1.73_m2}>=60 mL/min/1.73m 2FSt. Vincent HospitalGlucose [Mass/Vol]101 mg/lQ48-316AjdpsyfyhAshtabula County Medical Center Potassium [Moles/Vol]3.3 mmol/LLow3.5-5.1FSt. Vincent Hospital Protein [Mass/Vol]6.6 g/dL6.4-8.2FProMedica Defiance Regional Hospitalodium [Moles/Vol]143 mmol/H263-076CwdumelsvAshtabula County Medical CenterUrea nitrogen [Mass/Vol]12.0 mg/dL7.0-18.0[facility] CenterUrea nitrogen/Creatinine [Mass ratio]11.7 mg/mgAshtabula County Medical Center Laboratory - Hematology and Cell countson 48-30-6378ERQ (Bld) [Velocity]6 mm/h <=30[facility] CenterImmature granulocytes/100 WBC (Bld)0.5 % 0.0-0.5FSt. Vincent HospitalLaboratory - Microbiology and Antimicrobial susceptibilityon 09-05-2024S. pyogenes Ag Ql (Unsp spec)Negative [facility] NorthARS-CoV-2 (COVID-19) RNA MARIO+probe Ql (Unsp spec)NegativeNEGATIVEAshtabula County Medical CenterComment on above:This test has not been FDA cleared or approved, but has beenauthorized by the FDA under an Emergency Use Authorization(EUA) for use by authorized laboratories certified underIA that meet the requirements to perform moderate or highcomplexity testing. This test has been authorized only forthe detection of proteins from SARS-CoV-2, not for any otherviruses or pathogens. The emergency use of this t est isauthorized for the duration of the declaration thatcircumstances exist justifying the authorization ofemergency use of in vitro diagnostic tests for detectionand/or diagnosis of Covid-19 under section 564(b)(1) of theAct, 21 U.S.C. 360bbb-3(b)(1), unless the declaration isterminated or authorization is revoked sooner.Laboratory - Specimen informationon 37-37-2590Grikxrugnh (U)CLEAR CLEARAshtabula County Medical CenterColor (U)YELLOWYELLOWAshtabula County Medical CenterLaboratory - Urinalysison 97-03-8507Yxpztxywx esterase Test strip Ql (U)NegativeNEGATIVEAshtabula County Medical CenterNitrite Ql (U)Negative NEGATIVEAshtabula County Medical CenterProtein Ql (U)NegativeNEG/TRACE [facility] CenterLeukocytes [#/volume] corrected for nucleated erythrocytes in Blood by Automated counon 32-03-1095TBN corrected for nucl RBC Auto (Bld) [#/Vol]Leukocytes [#/volume] corrected for nucleated erythrocytes in Blood by Automated coun4.0-11.0[facility] CenterLymphocytes Auto (Bld) [#/Vol]on 80-93-4330Rcfkggjsufy (Bld) [#/Vol]Lymphocytes [#/volume] in Blood by Automated count1.2-3.8[facility] CenterLymphocytes/100 WBC Auto (Bld)on 51-99-1307Haeqifgilhz/100 WBC (Bld)Lymphocytes/100 leukocytes in Blood by Automated count20.5-60.0[facility] CenterMCH Auto (RBC) [Entitic mass]on 84-35-9435QPH (RBC) [Entitic mass]MCH [Entitic mass] by Automated count26.7-34.0[facility] CenterMCHC Auto (RBC) [Mass/Vol]on 25-47-7455DSBE (RBC) [Mass/Vol]MCHC [Mass/volume] by Automated count29.9-35.2FSt. Vincent HospitalMCV Auto (RBC) [Entitic vol]on 99-86-1895WUB (RBC) [Entitic vol]MCV [Entitic volume] by Automated count 81.0-99.0[facility] CenterMonocytes Auto (Bld) [#/Vol]on 11-75-4529Ecaajtggz (Bld) [#/Vol]Automated blood monocyte count0.3-0.8[facility] CenterMonocytes/100 WBC Auto (Bld)on 63-34-3798Rgjztyisf/100 WBC (Bld)Automated monocyte %1.7-12.0[facility] Neutrophils Auto (Bld) [#/Vol]on 21-97-5498Qnsueairwwu (Bld) [#/Vol]Neutrophils [#/volume] in Blood by Automated count1.4-6.5FSt. Vincent Hospital Neutrophils/100 WBC Auto (Bld)on 26-25-3347Jkmrdjosrzr/100 WBC (Bld)Automated neutrophil %43.0-75.0[facility] CenterNo Panel Informationon 99-76-5246T-Reactive Protein, Quantitative<0.50 mg/dL<=0.50[facility] CenterTroponin I High Ppevorgiujg11.8 pg/mL4.0-51.3FSt. Vincent HospitalComment on above:CUT-OFF POINTS HAVE BEEN ESTABLISHED BASED ON THE FOURTHUNIVERSAL DEFINITION OF MYOCARDIAL INFARCTION. THE UPPERREFERENCE LIMIT (URL) OF TROPONIN, DEFINED THE 99THPERCENTILE OF cTnI DISTRIBUTION IN A REFERENCE POPULATION,HAS BEEN CONFIRMED THE DECISION THRESHOLD FOR MIDIAGNOSIS.99TH PERCENTILE = 51.4 PG/MLNOTE: HIGH-SENSITIVITY TROPONIN ASSAY IS NOT INTENDED TO BEUSED IN ISOLATION BUT SHOULD BE INTERPRETED IN CONJUNCTIONWITH OTHER DIAGNOSTIC AND CLINICAL INFORMATION.Urine Microscopic ReviewNOAshtabula County Medical CenterUrine Occult BloodNegativeNEGATIVE [facility] CenterEosinophils # (Auto)0.1 10 3/uL0.0-0.7FSt. Vincent HospitalImmature Granulocyte # (Auto)0.03 10 3/uL0.00-0.03 [facility] CenterBedside Influenza Type A AntigenNegative [facility] CenterComment on above:Negative for Flu A protein antigen. Infection due to Flu Acannot be ruled out. Flu A antigen in thesample may bebelow the detection limit of the test.Bedside Influenza Type B Antigen NegativeAshtabula County Medical CenterComment on above:Negative for Flu B protein antigen. Infection due to Flu Bcannot be ruled out. Flu B antigen in the sample may bebelow the detection limit of the test.Platelet mean volume Auto (Bld) [Entitic vol]on 39-66-9670Rsbdeidk mean volume (Bld) [Entitic vol]Platelet mean volume [Entitic volume] in Blood by Automated count9.5-13.5FSt. Vincent HospitalPlatelets Auto (Bld) [#/Vol]on 19-37-3765Vfayfwvfe (Bld) [#/Vol]Platelets [#/volume] in Blood by Automated -450KgoyblbtdAshtabula County Medical CenterRBC Auto (Bld) [#/Vol]on 82-55-3999CKI (Bld) [#/Vol]Erythrocytes [#/volume] in Blood by Automated countLow4.20-5.40[facility] Northerum or plasma albumin/globulin mass ratioon 69-79-2892Cydsycw/Globulin [Mass ratio]Serum or plasma albumin/globulin mass ratioPremier Health Miami Valley Hospital Northerum or plasma anion gap determinationon 87-55-9886Xnsxd gap [Moles/Vol]Serum or plasma anion gap determinationPremier Health Miami Valley Hospital Northtrep A Culture Onlyon 07-37-6501Brasw A Culture OnlyNo Group A Beta Streptococcus Isolated 2 Days PERFORMED BY: [facility] [address] [place] [address] PATHOLOGIST SURFACE WATER TECHNICIAN LESLEY HONEYCUTT M.D.NormalThe [facility]ata[facility] Physician GroupComment on above: Performed By: #### CUSTA #### [facility] [address] [place] [address] USAStreptococcus pyogenes cultureOrdered By: Anita Garcia on 09-05-2024S. pyogenes Org specific cx Ql (Unsp spec)Streptococcus pyogenes culturePremier Health Miami Valley Hospital North. pyogenes Org specific cx Ql (Unsp spec)Streptococcus pyogenes cultureAshtabula County Medical CenterBasophils Auto (Bld) [#/Vol]on 66-00-3686Kvadfeifb (Bld) [#/Vol]0.0 10 3/uL0.0-0.1 [facility] CenterBasophils (Bld) [#/Vol]Automated basophil count 0.0-0.1FSt. Vincent HospitalBasophils/100 WBC Auto (Bld)on 32-18-6174Wnpjpmmbl/100 WBC (Bld)0.8 %0.2-2.0[facility] Basophils/100 WBC (Bld)Automated basophil %0.2-2.0[facility] CenterEosinophils/100 WBC Auto (Bld)on 43-19-1943Iyiixyjidcf/100 WBC (Bld)1.9 % 0.9-7.0[facility] CenterEosinophils/100 WBC (Bld)Automated eosinophil %0.9-7.0[facility] CenterErythrocyte distribution width Auto (RBC) [Ratio]on 51-84-2544Mbdhrfiavcy distribution width (RBC) [Ratio]13.7 %11.0-15.0[facility] CenterErythrocyte distribution width (RBC) [Ratio]Erythrocyte distribution width [Ratio] by Automated count 11.0-15.0[facility] CenterEstimated glomerular filtration rate (GFR) non- Americanon 50-40-7097BMT/1.73 sq M.predicted among non-blacks MDRD (S/P/Bld) [Vol rate/Area]45 mL/min/{1.73_m2}Low>=60[facility] CenterGFR/1.73 sq M.predicted among non-blacks MDRD (S/P/Bld) [Vol rate/Area]Estimated glomerular filtration rate (GFR) non- AmericanLow>=60 [facility] CenterGlobulin Calc (S) [Mass/Vol]on 05-25-2024 Globulin (S) [Mass/Vol]2.8 g/dLAshtabula County Medical CenterGlobulin (S) [Mass/Vol]Serum globulin measurement by calculation (mass/volume)[facility] CenterHematocrit Auto (Bld) [Volume fraction]on 05-25-2024 Hematocrit (Bld) [Volume fraction]36.1 %36.0-48.0[facility] CenterHematocrit (Bld) [Volume fraction]Hematocrit [Volume Fraction] of Blood by Automated count36.0-48.0[facility] CenterHemoglobin [Mass/volume] in Bloodon 68-57-9261Aaplytejnf (Bld) [Mass/Vol]11.7 g/dLLow 12.0-16.0[facility] CenterHemoglobin (Bld) [Mass/Vol]Hemoglobin [Mass/volume] in IhtixTmr14.0-16.0[facility] CenterIron binding capacity [Mass/volume] in Serum or Plasmaon 00-00-4424Zqhu binding capacity [Mass/Vol]410.0 ug/dL250.0-450.0[facility] CenterIron binding capacity [Mass/Vol]Iron binding capacity [Mass/volume] in Serum or Plasma 250.0-450.0[facility] CenterIron saturation [Mass Fraction] in Serum or Plasmaon 91-79-4933Hcjs saturation [Mass fraction]33.2 %[facility] CenterIron saturation [Mass fraction]Iron saturation [Mass Fraction] in Serum or PlasmaAshtabula County Medical CenterLaboratory - Chemistry and Chemistry - challengeon 90-58-5934Hegqctg [Mass/Vol]3.3 g/dLLow 3.4-5.0[facility] CenterALP [Catalytic activity/Vol]47 U/L46-116 [facility] CenterALT [Catalytic activity/Vol]17 U/L14-59 [facility] CenterAST [Catalytic activity/Vol]21 U/L15-37 [facility] CenterBilirubin [Mass/Vol]0.6 mg/dL0.2-1.0[facility] CenterCalcium [Mass/Vol]8.7 mg/dL8.5-10.1FSt. Vincent HospitalChloride [Moles/Vol]104 mmol/A69-423WngfcwozpAshtabula County Medical CenterCO2 [Moles/Vol]28.8 mmol/L21.0-32.0[facility] Cobalamin (Vitamin B12) [Mass/Vol]963 pg/gY844-2289EupxmombnAshtabula County Medical CenterComment on above:Performed at: - [facility] [id number] Director: Nicanor Omalley PhD, Phone: [phone] Creatinine [Mass/Vol]1.15 mg/dLHigh0.55-1.02[facility] Ferritin [Mass/Vol]44.0 ng/mL8.0-252.0[facility] CenterGFR/1.73 sq M.predicted MDRD (S/P/Bld) [Vol rate/Area]55 mL/min/{1.73_m2}Low>=60[facility] CenterGlucose [Mass/Vol]111 mg/rGPlic42-444MgklayeekAshtabula County Medical CenterIron [Mass/Vol]136.0 ug/dL50.0-170.0[facility] CenterPotassium [Moles/Vol]3.7 mmol/L3.5-5.1FSt. Vincent Hospital Protein [Mass/Vol]6.1 g/dLLow6.4-8.2FProMedica Defiance Regional Hospitalodium [Moles/Vol]140 mmol/Z554-827TqiwaqaqwAshtabula County Medical CenterTSH Qn2.056 m[IU]/L 0.358-3.740[facility] CenterUrea nitrogen [Mass/Vol]20.0 mg/dL High7.0-18.0[facility] CenterUrea nitrogen/Creatinine [Mass ratio]17.4 mg/mgAshtabula County Medical CenterLaboratory - Hematology and Cell countson 74-29-1330Ejavjrfv granulocytes/100 WBC (Bld)0.8 %High0.0-0.5 [facility] CenterLeukocytes [#/volume] corrected for nucleated erythrocytes in Blood by Automated counon 30-53-6891OSM corrected for nucl RBC Auto (Bld) [#/Vol]4.8 10 3/uL4.0-11.0[facility] CenterWBC corrected for nucl RBC Auto (Bld) [#/Vol]Leukocytes [#/volume] corrected for nucleated erythrocytes in Blood by Automated coun4.0-11.0[facility] CenterLymphocytes Auto (Bld) [#/Vol]on 69-01-7893Yhdjmcjqwsq (Bld) [#/Vol]1.1 10 3/uLLow1.2-3.8[facility] CenterLymphocytes (Bld) [#/Vol]Lymphocytes [#/volume] in Blood by Automated countLow1.2-3.8[facility] CenterLymphocytes/100 WBC Auto (Bld)on 05-25-2024 Lymphocytes/100 WBC (Bld)23.3 %20.5-60.0[facility] Lymphocytes/100 WBC (Bld)Lymphocytes/100 leukocytes in Blood by Automated count 20.5-60.0[facility] HospitalH Auto (RBC) [Entitic mass]on 10-91-4082ZHE (RBC) [Entitic mass]30.9 pg26.7-34.0[facility] HospitalH (RBC) [Entitic mass]MCH [Entitic mass] by Automated count26.7-34.0 [facility] HospitalHC Auto (RBC) [Mass/Vol]on 18-47-0057VFEJ (RBC) [Mass/Vol]32.4 g/dL29.9-35.2FCrystal Clinic Orthopedic CenterHC (RBC) [Mass/Vol]MCHC [Mass/volume] by Automated count29.9-35.2FSt. Vincent HospitalMCV Auto (RBC) [Entitic vol]on 29-44-0057KCX (RBC) [Entitic vol] 95.3 fL81.0-99.0[facility] CenterMCV (RBC) [Entitic vol]MCV [Entitic volume] by Automated count81.0-99.0[facility] Monocytes Auto (Bld) [#/Vol]on 93-61-2970Gqoyfovvx (Bld) [#/Vol]0.3 10 3/uL 0.3-0.8[facility] CenterMonocytes (Bld) [#/Vol]Automated blood monocyte count0.3-0.8[facility] CenterMonocytes/100 WBC Auto (Bld)on 57-68-8112Gdoduxlxg/100 WBC (Bld)7.0 %1.7-12.0[facility] CenterMonocytes/100 WBC (Bld)Automated monocyte %1.7-12.0[facility] CenterNeutrophils Auto (Bld) [#/Vol]on 82-77-3576Lldoxoihocd (Bld) [#/Vol]3.2 10 3/uL1.4-6.5FSt. Vincent HospitalNeutrophils (Bld) [#/Vol]Neutrophils [#/volume] in Blood by Automated count1.4-6.5FSt. Vincent HospitalNeutrophils/100 WBC Auto (Bld)on 05-25-2024 Neutrophils/100 WBC (Bld)66.2 %43.0-75.0[facility] Neutrophils/100 WBC (Bld)Automated neutrophil %43.0-75.0[facility] CenterNo Panel Informationon 46-96-9308Ldjloyzppzl # (Auto)0.1 10 3/uL 0.0-0.7FSt. Vincent HospitalFolate27.00 ng/mL8.60-58.90[facility] CenterImmature Granulocyte # (Auto)0.04 10 3/uLHigh0.00-0.03 [facility] CenterPlatelet mean volume Auto (Bld) [Entitic vol]on 05-73-0321Mgphitry mean volume (Bld) [Entitic vol]10.8 fL9.5-13.5FSt. Vincent HospitalPlatelet mean volume (Bld) [Entitic vol]Platelet mean volume [Entitic volume] in Blood by Automated count9.5-13.5FSt. Vincent HospitalPlatelets Auto (Bld) [#/Vol]on 01-93-7947Olgirxxjw (Bld) [#/Vol] 186 10 3/oD380-536CmtszawmaAshtabula County Medical CenterPlatelets (Bld) [#/Vol] Platelets [#/volume] in Blood by Automated nlymw851-787ZtgbpqsktAshtabula County Medical CenterRBC Auto (Bld) [#/Vol]on 85-79-2913RMZ (Bld) [#/Vol]3.79 10 6/uL Low4.20-5.40[facility] CenterRBC (Bld) [#/Vol]Erythrocytes [#/volume] in Blood by Automated countLow4.20-5.40[facility] Northerum or plasma albumin/globulin mass ratioon 49-20-6817Lekwfpw/Globulin [Mass ratio]1.2 {ratio}[facility] CenterAlbumin/Globulin [Mass ratio]Serum or plasma albumin/globulin mass ratioPremier Health Miami [facility] Hospital Northerum or plasma anion gap determinationon 45-67-1240Kudri gap [Moles/Vol] 10.9 mmol/LFSt. Vincent HospitalAnion gap [Moles/Vol]Serum or plasma anion gap determinationAshtabula County Medical CenterBasophils Auto (Bld) [#/Vol]on 35-79-9193Upvagdtwx (Bld) [#/Vol]0.0 10 3/uL0.0-0.1FSt. Vincent HospitalBasophils/100 WBC Auto (Bld)on 69-08-3644Dgbtljlfc/100 WBC (Bld) 0.4 %0.2-2.0[facility] CenterEosinophils/100 WBC Auto (Bld)on 50-76-8652Nzycjdfvuuu/100 WBC (Bld)2.9 %0.9-7.0[facility] Erythrocyte distribution width Auto (RBC) [Ratio]on 45-50-0483Uvzhtmrukoy distribution width (RBC) [Ratio]13.2 %11.0-15.0[facility] Hematocrit Auto (Bld) [Volume fraction]on 02-97-2282Xdkwwntges (Bld) [Volume fraction]36.7 %36.0-48.0[facility] CenterHemoglobin [Mass/volume] in Bloodon 62-34-8838Fuaacffghq (Bld) [Mass/Vol]11.5 g/dL12.0-16.0 [facility] CenterLaboratory - Chemistry and Chemistry - challengeon 74-77-8899Upfibfka [Mass/Vol]27.0 ng/mL8.0-252.0[facility] CenterLaboratory - Hematology and Cell countson 06-89-3246Thcansyj granulocytes/100 WBC (Bld)0.4 %0.0-0.5FSt. Vincent Hospital Leukocytes [#/volume] corrected for nucleated erythrocytes in Blood by Automated counon 28-63-6339SFN corrected for nucl RBC Auto (Bld) [#/Vol]4.8 10 3/uL 4.0-11.0[facility] CenterLymphocytes Auto (Bld) [#/Vol]on 37-73-5821Sxdyndogtcd (Bld) [#/Vol]1.3 10 3/uL1.2-3.8[facility] CenterLymphocytes/100 WBC Auto (Bld)on 04-34-9314Lrbvfdqekid/100 WBC (Bld)27.7 % 20.5-60.0[facility]H Auto (RBC) [Entitic mass]on 89-81-6364GSE (RBC) [Entitic mass]29.9 pg26.7-34.0[facility] CenterMCHC Auto (RBC) [Mass/Vol]on 40-38-5208CJYS (RBC) [Mass/Vol]31.3 g/dL 29.9-35.2FSt. Vincent HospitalMCV Auto (RBC) [Entitic vol]on 00-66-8177ZOC (RBC) [Entitic vol]95.3 fL81.0-99.0[facility] CenterMonocytes Auto (Bld) [#/Vol]on 84-03-4876Zpvyxgdeq (Bld) [#/Vol]0.4 10 3/uL0.3-0.8[facility] CenterMonocytes/100 WBC Auto (Bld)on 22-48-6781Jlqrnnjuc/100 WBC (Bld)7.8 %1.7-12.0[facility] Neutrophils Auto (Bld) [#/Vol]on 11-57-1613Oziybbdwztg (Bld) [#/Vol]2.9 10 3/uL 1.4-6.5FSt. Vincent HospitalNeutrophils/100 WBC Auto (Bld)on 47-46-6281Ytnxpwphyra/100 WBC (Bld)60.8 %43.0-75.0[facility] CenterNo Panel Informationon 29-17-5414Cadpskklsme # (Auto)0.1 10 3/uL0.0-0.7 [facility] CenterFolate24.20 ng/mL8.60-58.90[facility] CenterImmature Granulocyte # (Auto)0.02 10 3/uL0.00-0.03[facility] CenterVitamin B12 Level>6000.0 pg/mL193.0-986.0[facility] CenterPlatelet mean volume Auto (Bld) [Entitic vol]on 03-49-3336Rdsygaox mean volume (Bld) [Entitic vol]10.5 fL9.5-13.5FSt. Vincent HospitalPlatelets Auto (Bld) [#/Vol]on 12-69-1622Dmxlrrvzs (Bld) [#/Vol]187 10 3/wL882-635IawmbtzxbAshtabula County Medical CenterRBC Auto (Bld) [#/Vol] on 43-97-6893YFD (Bld) [#/Vol]3.85 10 6/uL4.20-5.40[facility] CenterQuick Fluon 83-03-0086XLLDX Ab CF (S) [Titer]NegativeGameLogic Other FLUBV Ab CF (S) [Titer]NegativeGameLogic Other CB AUTO DIFFon 50-17-4866FSEX #0.0 103/ulNormal 0.0-0.1The [facility] HospitalComment on above:Performed By: #### LIVER, BMP, LIPA, EDSON #### [facility] [address] [address] [address] Julia Katesophils/100 WBC (Bld)0.4 %Normal0.2-2.0The [facility] Comment on above:Performed By: #### LIVER, BMP, LIPA, EDSON #### [facility] [address] [place] [address] Dr. Julia Isidro #0.3 103/ulNormal0.0-0.7The [facility] HospitalComment on above: Performed By: #### LIVER, BMP, LIPA, EDSON #### [facility] [address] [place] [address] Dr. Julia Marquezosinophils/100 WBC (Bld)5.5 %Normal0.9-7.0The [facility] Comment on above:Performed By: #### LIVER, BMP, LIPA, EDSON #### [facility] [address] [place] [address] Dr. Julia Marquezrythrocyte distribution width (RBC) [Ratio]14.1 %Freqfl15.0-15.0 The [facility] HospitalComment on above:Performed By: #### LIVER, BMP, LIPA, EDSON #### [facility] [address] [place] [address] Dr. Julia VelasquezHematocrit (Bld) [Volume fraction]36.4 %Tkvitr46.0-48.0The [facility] HospitalComment on above:Performed By: #### LIVER, BMP, LIPA, EDSON #### [facility] [address] [place] [address] Dr. Julia VelasquezHemoglobin (Bld) [Mass/Vol]11.4 g/dLCritically low12.0-16.0The [facility] HospitalComment on above:Performed By: #### LIVER, BMP, LIPA, EDSON #### [facility] [address] [place] [address] Dr. Julia Donald #0.02 10e3/ulNormal0.00-0.03The [facility] HospitalComment on above:Performed By: #### LIVER, BMP, LIPA, EDSON #### [facility] [address] [place] [address] Dr. Julia Donald %0.4 %Normal0.0-0.5The [facility] HospitalComment on above: Performed By: #### LIVER, BMP, LIPA, EDSON #### [facility] [address] [place] [address] Dr. Julia Hamm #1.4 103/ulNormal1.2-3.8The [facility] HospitalComment on above:Performed By: #### LIVER, BMP, LIPA, EDSON #### [facility] [address] [place] [address] Dr. Julia Ontiveroshocytes/100 WBC (Bld)28.4 %Gxxwum87.5-60.0The [facility] HospitalComment on above:Performed By: #### LIVER, BMP, LIPA, EDSON #### [facility] [address] [place] [address] Dr. Julia Deras DIFF REQNONormalThe [facility] HospitalComment on above: Performed By: #### LIVER, BMP, LIPA, EDSON #### [facility] [address] [place] [address] Dr. Julia Toussaint (RBC) [Entitic mass]30.0 mdFyglgb68.7-34.0The [facility] HospitalComment on above:Performed By: #### LIVER, BMP, LIPA, EDSON #### [facility] [address] [place] [address] Dr. Julia Toussaint (RBC) [Mass/Vol]31.3 g/vHLwrmqy67.9-35.2The [facility] Hospitalment on above:Performed By: #### LIVER, BMP, LIPA, EDSON #### [facility] [address] [place] [address] Dr. Julia Toussaint (RBC) [Entitic vol]95.8 tFXuezca79.0-99.0The [facility] HospitalComment on above:Performed By: #### LIVER, BMP, LIPA, EDSON #### [facility] [address] [place] [address] Dr. Julia Giles #0.4 103/ulNormal0.3-0.8The [facility] HospitalComment on above:Performed By: #### LIVER, BMP, LIPA, EDSON #### [facility] [address] [place] [address] Dr. Julia Lopezocytes/100 WBC (Bld)7.8 %Normal1.7-12.0The [facility] Comment on above:Performed By: #### LIVER, BMP, LIPA, EDSON #### [facility] [address] [place] [address] Dr. Julia PinedaUT #2.8 103/ulNormal1.4-6.5The [facility] HospitalComment on above:Performed By: #### LIVER, BMP, LIPA, EDSON #### [facility] [address] [place] [address] Dr. Julia Pinedautrophils/100 WBC (Bld)57.5 %Uigddu62.0-75.0The [facility] HospitalComment on above:Performed By: #### LIVER, BMP, LIPA, EDSON #### [facility] [address] [place] [address] Dr. Julia Mendezlet mean volume (Bld) [Entitic vol]10.6 fLNormal9.5-13.5The [facility] HospitalComment on above:Performed By: #### LIVER, BMP, LIPA, EDSON #### [facility] [address] [place] [address] Dr. Julia VelasquezPLT212 103/imSgomkb759-171Cme [facility] Hospitalment on above: Performed By: #### LIVER, BMP, LIPA, EDSON #### [facility] [address] [place] [address] Dr. Julia VelasquezRBC3.80 106/ulCritically low4.20-5.40The [facility] HospitalComment on above:Performed By: #### LIVER, BMP, LIPA, EDSON #### [facility] [address] [place] [address] Dr. Julia VelasquezWBC4.9 103/ulNormal4.0-11.0The [facility] HospitalComment on above: Performed By: #### LIVER, BMP, LIPA, EDSON #### [facility] [address] [place] [address] Dr. Julia VelasquezFERRITINon 57-87-3553Vaxktkrd [Mass/Vol]63.0 ng/mLNormal8.0-252.0 The [facility] HospitalComment on above:Performed By: #### LIVER, BMP, LIPA, EDSON #### [facility] [address] [place] [address] Dr. Julia Workman AND TIBCon 02-03-2023% OIVHAGFWYX53.5 %NormalThe [facility] HospitalComment on above:Performed By: #### LIVER, BMP, LIPA, EDSON #### [facility] [address] [place] [address] Dr. Julia Workman [Mass/Vol]100.0 ug/vSUiurok95.0-170.0[facility] Comment on above:Performed By: #### LIVER, BMP, LIPA, EDSON #### [facility] [address] [place] [address] Dr. Julia VelasquezTIBC AFHLKA429.0 ug/gBJsblwe235.0-450.0[facility] Comment on above:Performed By: #### LIVER, BMP, LIPA, EDSON #### [facility] [address] [place] [address] Dr. Julia VelasquezPROF CHEM 8 (BAS METB)on 08-31-3815Mdbae gap [Moles/Vol]13.0 mmol/LNormalThe [facility] HospitalComment on above:Performed By: #### BMP #### [facility] [address] [place] [address] Dr. Julia VelasquezCalcium [Mass/Vol]8.9 mg/dLNormal8.5-10.1[facility] Comment on above:Performed By: #### BMP #### [facility] [address] [place] [address] Dr. Julia VelasquezChloride [Moles/Vol]106 mmol/MXpzhtj07-334IsqMercy Health Fairfield Hospital Comment on above:Performed By: #### BMP #### [facility] [address] [place] [address] Dr. Julia VelasquezCO2 [Moles/Vol]27.7 mmol/BSbwuug68.0-32.0The [facility] Comment on above:Performed By: #### BMP #### [facility] [address] [address] [address] Julia VelasquezCreatinine [Mass/Vol]1.24 mg/dLCritically high0.55-1.02The [facility] HospitalComment on above:Performed By: #### BMP #### [facility] [address] [address] [address] Dumont ChangEGFR-AF NLJILIEW75 mL/min/1.89p3Duvdvhajjq low>=60The [facility] HospitalComment on above:Performed By: #### BMP #### [facility] [address] [address] [address] Julia MarquezGFR-NON AF CNYVEDBT41 mL/min/1.51c9Muqimutite low>=60The [facility] HospitalComment on above:Performed By: #### BMP #### [facility] [address] [address] [address] Julia VelasquezGlucose [Mass/Vol]99 mg/oZGugmvy81-366Qfo [facility] Comment on above:Performed By: #### BMP #### [facility] [address] [address] [address] Julia VelasquezPotassium [Moles/Vol]3.7 mmol/LNormal3.5-5.1The [facility] Comment on above:Performed By: #### BMP #### [facility] [address] [address] [address] Julia VelasquezSodium [Moles/Vol]143 mmol/DQbujou810-418Cqq [facility] Comment on above:Performed By: #### BMP #### [facility] [address] [address] [address] Julia VelasquezUrea nitrogen [Mass/Vol]12.0 mg/dLNormal7.0-18.0The [facility] HospitalComment on above:Performed By: #### BMP #### [facility] [address] [address] [address] Julia Belcher nitrogen/Creatinine [Mass ratio]9.7 mg/mgNoalThACMC Healthcare System GlenbeighComment on above:Performed By: #### BMP #### [facility] [address] [address] [address] Julia Rico RANDOM W/MICROSCOPICon 49-29-9277QXCJKCJGDULAGCrhqdudkPOXK SEENMercy Health [facility] HospitalComment on above:Performed By: #### LIVER, BMP, LIPA, EDSON #### [facility] [address] [address] [address] Julia Lawirubin Ql (U)NegativeNormalNEGATIVEMercy Health [facility] Hospital Comment on above:Performed By: #### LIVER, BMP, LIPA, EDSON #### [facility] [address] [place] [address] Dr. Julia Mason SEENNormalNONE SEENMercy Health Fairfield HospitalComformerly [facility] on above:Performed By: #### LIVER, BMP, LIPA, EDSON #### [facility] [address] [place] [address] Dr. Julia Barnesarity (U)CLEARNormalCLEARMercy Health Fairfield HospitalComformerly [facility] on above: Performed By: #### LIVER, BMP, LIPA, EDSON #### [facility] [address] [address] [address] Julia Sandra (U)LT. YELLOWNormalYELLOWMercy Health Fairfield HospitalComment on above:Performed By: #### LIVER, BMP, LIPA, EDSON #### [facility] [address] [address] [address] Julia VelasquezCrystals LM Nom (Urine sed)NONE SEENNormalNONE SEENMercy Health Fairfield HospitalComformerly [facility] on above:Performed By: #### LIVER, BMP, LIPA, EDSON #### [facility] [address] [address] [address] Dumont ChangEpithelial cells LM Ql (Urine sed)MODERATEAbnormalNONE SEEN /RARE The [facility] HospitalComment on above:Performed By: #### LIVER, BMP, LIPA, EDSON #### [facility] [address] [address] [address] Julia VelasquezGlucose Ql (U)NegativeNormalNEGATIVEMercy Health Fairfield HospitalComment on above:Performed By: #### LIVER, BMP, LIPA, EDSON #### [facility] [address] [address] [address] Julia VelasquezHemoglobin Ql (U)NegativeNormalNEGATIVEThe [facility] Comment on above:Performed By: #### LIVER, BMP, LIPA, EDSON #### [facility] [address] [address] [address] Julia VelasquezKetones Ql (U)NegativeNormalNEGATIVEMercy Health Fairfield HospitalComment on above:Performed By: #### LIVER, BMP, LIPA, EDSON #### [facility] [address] [address] [address] Julia VelasquezLEUKOCYTESNegativeNormalNEGATIVEThe [facility] HospitalComment on above:Performed By: #### LIVER, BMP, LIPA, EDSON #### [facility] [address] [address] [address] Julia VelasquezMUCOUSBARRY SEENNormalNONE SEENThe [facility] HospitalComment on above:Performed By: #### LIVER, BMP, LIPA, EDSON #### [facility] [address] [address] [address] Julia VelasquezNitrite Ql (U)NegativeNormalNEGATIVEMercy Health Fairfield HospitalComment on above:Performed By: #### LIVER, BMP, LIPA, EDSON #### [facility] [address] [address] [address] Julia VelasquezpH (U)7.5 [pH]Normal5-9The [facility] HospitalComment on above: Performed By: #### LIVER, BMP, LIPA, EDSON #### [facility] [address] [address] [address] Julia VelasquezFdooiGMY9-0Itxffb1-4Xve [facility] HospitalComment on above:Performed By: #### LIVER, BMP, LIPA, EDSON #### [facility] [address] [place] [address] Dr. Julia VelasquezSPEC GRAVITY1.205Oyfbmv9.005-<=1.025The [facility] HospitalComment on above:Performed By: #### LIVER, BMP, LIPA, EDSON #### [facility] [address] [place] [address] Dr. Julia VelasquezUA PROTEINNegativeNormalNEGATIVE/ TRACEThe [facility] Comment on above:Performed By: #### LIVER, BMP, LIPA, EDSON #### [facility] [address] [place] [address] Dr. Julia VelasquezUrobilinogen Qn (U)2.0 {Avery'U}/dLAbnormal0.2 - 1.0The [facility] HospitalComment on above:Performed By: #### LIVER, BMP, LIPA, EDSON #### [facility] [address] [place] [address] Dr. Julia VelasquezWBCNONE SEENNormalNONE SEENThe [facility] HospitalComment on above: Performed By: #### LIVER, BMP, LIPA, EDSON #### [facility] [address] [place] [address] Dr. Julia Mendoza B12 AND FOLATEon 12-55-7696Neqxbfufz (Vitamin B12) [Mass/Vol] 199.0 pg/gMLtubzq700.0-986.0The [facility] HospitalComment on above:Performed By: #### LIVER, BMP, LIPA, EDSON #### [facility] [address] [place] [address] Dr. Julia VelasquezFOLATE27.10 ng/mLNormal8.60-58.90The [facility] HospitalComment on above:Performed By: #### LIVER, BMP, LIPA, EDSON #### [facility] [address] [place] [address] Dr. Julia VelasquezXR CHEST 2 Von 15-84-6625KQ CHEST 2 VEXAM: XR CHEST 2 V HISTORY: Pneumonia . [...] Electronically authenticated by: NANDO CARLSON Date: 2023-02-03 14:28[facility] AUTO DIFFon [id number] #0.0 103/ulNormal0.0-0.1[facility] HospitalComment on above:Performed By: #### LIVER, BMP, LIPA, EDSON #### [facility] [address] [place] [address] Dr. Julia VelasquezBasophils/100 WBC (Bld)0.6 %Normal0.2-2.0[facility] Comment on above:Performed By: #### LIVER, BMP, LIPA, EDSON #### [facility] [address] [address] [address] Julia Isidro #0.1 103/ulNormal0.0-0.7The [facility] HospitalComment on above: Performed By: #### LIVER, BMP, LIPA, EDSON #### [facility] [address] [address] [address] Julia Marquezosinophils/100 WBC (Bld)3.3 %Normal0.9-7.0[facility] Comment on above:Performed By: #### LIVER, BMP, LIPA, EDSON #### [facility] [address] [place] [address] Dr. Julia Marquezrythrocyte distribution width (RBC) [Ratio]16.1 %Critically high 11.0-15.0[facility] HospitalComment on above:Performed By: #### LIVER, BMP, LIPA, EDSON #### [facility] [address] [place] [address] Dr. Julia Ambroseatoalyt (Bld) [Volume fraction]34.9 %Critically low36.0-48.0 The [facility] HospitalComment on above:Performed By: #### LIVER, BMP, LIPA, EDSON #### [facility] [address] [place] [address] Dr. Julia VelasquezHemoglobin (Bld) [Mass/Vol]11.1 g/dLCritically low12.0-16.0The [facility] HospitalComment on above:Performed By: #### LIVER, BMP, LIPA, EDSON #### [facility] [address] [place] [address] Dr. Julia Donald #0.05 10e3/ulCritically high0.00-0.03The [facility] Comment on above:Performed By: #### LIVER, BMP, LIPA, EDSON #### [facility] [address] [place] [address] Dr. Julia Donald %1.4 %Critically high0.0-0.5The [facility] HospitalComment on above:Performed By: #### LIVER, BMP, LIPA, EDSON #### [facility] [address] [place] [address] Dr. Julia Hamm #1.1 103/ulCritically low1.2-3.8The [facility] Comment on above:Performed By: #### LIVER, BMP, LIPA, EDSON #### [facility] [address] [place] [address] Dr. Julia Ontiveroshocytes/100 WBC (Bld)31.6 %Lymrxk53.5-60.0The [facility] HospitalComment on above:Performed By: #### LIVER, BMP, LIPA, EDSON #### [facility] [address] [place] [address] Dr. Julia DickinsonUAL DIFF REQNONormalThe [facility] HospitalComment on above: Performed By: #### LIVER, BMP, LIPA, EDSON #### [facility] [address] [place] [address] Dr. Julia Gómez (RBC) [Entitic mass]30.4 roXnvdnc79.7-34.0The [facility] HospitalComment on above:Performed By: #### LIVER, BMP, LIPA, EDSON #### [facility] [address] [place] [address] Dr. Julia Toussaint (RBC) [Mass/Vol]31.8 g/yHHnufnl23.9-35.2The [facility] HospitalComment on above:Performed By: #### LIVER, BMP, LIPA, EDSON #### [facility] [address] [place] [address] Dr. Julia Toussaint (RBC) [Entitic vol]95.6 jUAthdsk67.0-99.0The [facility] HospitalComment on above:Performed By: #### LIVER, BMP, LIPA, EDSON #### [facility] [address] [place] [address] Dr. Julia Giles #0.2 103/ulCritically low0.3-0.8The [facility] HospitalComment on above:Performed By: #### LIVER, BMP, LIPA, EDSON #### [facility] [address] [place] [address] Dr. Julia Lopezocytes/100 WBC (Bld)6.1 %Normal1.7-12.0The [facility] Comment on above:Performed By: #### LIVER, BMP, LIPA, EDSON #### [facility] [address] [place] [address] Dr. Julia Smith #2.1 103/ulNormal1.4-6.5The [facility] HospitalComment on above:Performed By: #### LIVER, BMP, LIPA, EDSON #### [facility] [address] [place] [address] Dr. Julia Pinedautrophils/100 WBC (Bld)57.0 %Fplmxz34.0-75.0The [facility] HospitalComment on above:Performed By: #### LIVER, BMP, LIPA, EDSON #### [facility] [address] [place] [address] Dr. Julia Mendezlet mean volume (Bld) [Entitic vol]10.4 fLNormal9.5-13.5The [facility] HospitalComment on above:Performed By: #### LIVER, BMP, LIPA, EDSON #### [facility] [address] [place] [address] Dr. Julia VelasquezPLT167 103/wdUpqbam463-300Nxw [facility] HospitalComment on above: Performed By: #### LIVER, BMP, LIPA, EDSON #### [facility] [address] [place] [address] Dr. Julia VelasquezRBC3.65 106/ulCritically low4.20-5.40The [facility] HospitalComment on above:Performed By: #### LIVER, BMP, LIPA, EDSON #### [facility] [address] [place] [address] Dr. Julia VelasquezWBC3.6 103/ulCritically low4.0-11.0The [facility] HospitalComment on above:Performed By: #### LIVER, BMP, LIPA, EDSON #### [facility] [address] [place] [address] Dr. Julia VelasquezFERRITINon 93-28-9109Hblrfrdr [Mass/Vol]148.0 ng/mLNormal 8.0-252.0The [facility] HospitalComment on above:Performed By: #### LIVER, BMP, LIPA, EDSON #### [facility] [address] [place] [address] Dr. Julia Workman AND TIBCon 01-07-2023% BUBARDSAPG66.1 %NormalThe [facility] HospitalComment on above:Performed By: #### LIVER, BMP, LIPA, EDSON #### [facility] [address] [place] [address] Dr. Julia Workman [Mass/Vol]96.0 ug/fSPpbfyq59.0-170.0The [facility] Comment on above:Performed By: #### LIVER, BMP, LIPA, EDSON #### [facility] [address] [place] [address] Dr. Julia VelasquezTIBC JKCUQM832.0 ug/iLWmybsv068.0-450.0[facility] Comment on above:Performed By: #### LIVER, BMP, LIPA, EDSON #### [facility] [address] [place] [address] Dr. Julia LovellF CHEM 8 (BAS METB)on 41-64-4071Yoqhy gap [Moles/Vol]11.8 mmol/LNormalThe [facility] HospitalComment on above:Performed By: #### LIVER, BMP, LIPA, EDSON #### [facility] [address] [place] [address] Dr. Julia VelasquezCalcium [Mass/Vol]8.3 mg/dLCritically low8.5-10.1The [facility] HospitalComment on above:Performed By: #### LIVER, BMP, LIPA, EDSON #### [facility] [address] [place] [address] Dr. Julia VelasquezChloride [Moles/Vol]108 mmol/LCritically rajt87-166Lvz [facility] HospitalComment on above:Performed By: #### LIVER, BMP, LIPA, EDSON #### [facility] [address] [place] [address] Dr. Julia VelasquezCO2 [Moles/Vol]27.8 mmol/DVghgpt03.0-32.0The [facility] Comment on above:Performed By: #### LIVER, BMP, LIPA, EDSON #### [facility] [facility] [address] [place] [address] Dr. Julia VelasquezCreatinine [Mass/Vol]1.00 mg/dLNormal0.55-1.02The [facility] HospitalComment on above:Performed By: #### LIVER, BMP, LIPA, EDSON #### [facility] [address] [place] [address] Dr. Dumont ChangEGFR-AF GIBRALTARIAN>60Normal>=60The [facility] HospitalComment on above:Performed By: #### LIVER, BMP, LIPA, EDSON #### [facility] [address] [place] [address] Dr. Julia MarquezGFR-NON AF KUYSGRMU35 mL/min/1.75y8Swqirvgqhm low>=60The [facility] HospitalComment on above:Performed By: #### LIVER, BMP, LIPA, EDSON #### [facility] [address] [place] [address] Dr. Julia VelasquezGlucose [Mass/Vol]92 mg/vCXtuusw80-012XfkMer[facility] Comment on above:Performed By: #### LIVER, BMP, LIPA, EDSON #### [facility] [address] [place] [address] Dr. Julia VelasquezPotassium [Moles/Vol]3.6 mmol/LNormal3.5-5.1[facility] Comment on above:Performed By: #### LIVER, BMP, LIPA, EDSON #### [facility] [address] [place] [address] Dr. Julia VelasquezSodium [Moles/Vol]144 mmol/RMzbjbs129-073Iky [facility] Comment on above:Performed By: #### LIVER, BMP, LIPA, EDSON #### [facility] [address] [place] [address] Dr. Julia VelasquezUrea nitrogen [Mass/Vol]8.0 mg/dLNormal7.0-18.0The [facility] HospitalComment on above:Performed By: #### LIVER, BMP, LIPA, EDSON #### [facility] [address] [place] [address] Dr. Julia VelasquezUrea nitrogen/Creatinine [Mass ratio]8.0 mg/mgNormalThe [facility] HospitalComment on above:Performed By: #### LIVER, BMP, LIPA, EDSON #### [facility] [address] [place] [address] Dr. Julia VelasquezRETICULOCYTEon [id number] %Critically high0.60-3.10The [facility] HospitalComment on above:Performed By: #### LIVER, BMP, LIPA, EDSON #### [facility] [address] [place] [address] Dr. Julia Mendoza B12 AND FOLATEon [id number] (Vitamin B12) [Mass/Vol] 322.0 pg/pZIqcbqk393.0-986.0The [facility] HospitalComment on above:Performed By: #### LIVER, BMP, LIPA, EDSON #### [facility] [address] [place] [address] Dr. Julia VelasquezFOLATE6.10 ng/mLCritically low8.60-58.90[facility] Comment on above:Performed By: #### LIVER, BMP, LIPA, EDSON #### [facility] [address] [place] [address] Dr. Julia VelasquezXR CHEST 2 Von [id number] CHEST 2 VEXAM: XR CHEST 2 V HISTORY: Pneumonia . [...] Electronically authenticated by: NANDO CARLSON Date: 2023-01-07 11:59[facility] W MANUAL DIFFon [id number] LYMPH #NormalThe [facility] HospitalComment on above:Performed By: #### LIVER, BMP, LIPA, EDSON #### [facility] [address] [place] [address] Dr. Julia VelasquezATYPICAL LYMPH %NormalThe [facility] HospitalComment on above: Performed By: #### LIVER, BMP, LIPA, EDSON #### [facility] [address] [place] [address] Dr. Julia VelasquezBAND #1.0 103/ulCritically high0.0-0.3TW[facility] Comment on above:Performed By: #### LIVER, BMP, LIPA, EDSON #### [facility] [address] [address] [address] Julia Reynoso %9 %Critically high0-5The [facility] HospitalComment on above: Performed By: #### LIVER, BMP, LIPA, EDSON #### [facility] [address] [place] [address] Dr. Julia Noriega #0.00 103/ulNormal0.00-0.10The [facility] HospitalComment on above:Performed By: #### LIVER, BMP, LIPA, EDSON #### [facility] [address] [place] [address] Dr. Julia Noriega %0.0 %Critically low0.2-2.0The [facility] HospitalComment on above:Performed By: #### LIVER, BMP, LIPA, EDSON #### [facility] [address] [place] [address] Dr. Julia De La Cruz #NormalThe [facility] HospitalComment on above:Performed By: #### LIVER, BMP, LIPA, EDSON #### [facility] [address] [place] [address] Dr. Julia De La Cruz %NormalThe [facility] HospitalComment on above:Performed By: #### LIVER, BMP, LIPA, EDSON #### [facility] [address] [place] [address] Dr. Julia VelasquezCORRECTED WBCNormal4.0-11.0The [facility] HospitalComment on above: Performed By: #### LIVER, BMP, LIPA, EDSON #### [facility] [address] [place] [address] Dr. Julia Cano #0.22 103/ulNormal0.00-0.70The [facility] HospitalComment on above:Performed By: #### LIVER, BMP, LIPA, EDSON #### [facility] [address] [place] [address] Dr. Julia Cano%2.0 %Normal0.9-7.0The [place] HospitalComment on above: Performed By: #### LIVER, BMP, LIPA, EDSON #### [facility] [address] [place], [place] [id number] Dr. Julia LloydT27.3 %Critically low36.0-48.0The [facility] HospitalComment on above:Performed By: #### LIVER, BMP, LIPA, EDSON #### [facility] [address] [place] [address] Dr. Julia VelasquezB8.5 g/dlCritically low12.0-16.0The [facility] HospitalComment on above:Performed By: #### LIVER, BMP, LIPA, EDSON #### [facility] [address] [place] [address] Dr. Julia SantamariaWood County HospitalComment on above: Performed By: #### LIVER, BMP, LIPA, EDSON #### [facility] [address] [place] [address] Dr. Julia Mccormick #0.99 103/ulCritically low1.20-3.80The [facility] Comment on above:Performed By: #### LIVER, BMP, LIPA, EDSON #### [facility] [address] [place] [address] Dr. Julia Mccormick%9.0 %Critically low20.5-60.0The [facility] HospitalComment on above:Performed By: #### LIVER, BMP, LIPA, EDSON #### [facility] [address] [place] [address] Dr. Julia VelasquezMCH28.3 rzZimtye77.7-34.0The [facility] HospitalComment on above: Performed By: #### LIVER, BMP, LIPA, EDSON #### [facility] [address] [place] [address] Dr. Julia ToussaintHC31.1 g/zuEgxupw08.9-35.2The [facility] HospitalComment on above:Performed By: #### LIVER, BMP, LIPA, EDSON #### [facility] [address] [place] [address] Dr. Julia ToussaintV91.0 cNPbkaed12.0-99.0The [facility] HospitalComment on above: Performed By: #### LIVER, BMP, LIPA, EDSON #### [facility] [address] [address] [address] Julia Avitia #NormalThe [facility] HospitalComment on above: Performed By: #### LIVER, BMP, LIPA, EDSON #### [facility] [address] [address] [address] Julia BanerjeeOCYTE %NormalThe [facility] HospitalComment on above: Performed By: #### LIVER, BMP, LIPA, EDSON #### [facility] [address] [address] [address] Julia Brian#0.22 103/ulCritically low0.30-0.80The [facility] on above:Performed By: #### LIVER, BMP, LIPA, EDSON #### [facility] [address] [place] [address] Dr. Julia Brian%2.0 %Normal1.7-12.0The [facility] HospitalComment on above: Performed By: #### LIVER, BMP, LIPA, EDSON #### [facility] [address] [address] [address] Julia ArnettV10.9 fLNormal9.5-13.5The [facility] HospitalComformerly [facility] on above: Performed By: #### LIVER, BMP, LIPA, EDSON #### [facility] [address] [address] [address] Julia Winter #NormalThe [facility] HospitalComment on above:Performed By: #### LIVER, BMP, LIPA, EDSON #### [facility] [address] [address] [address] Julia Winter %NormalThe [facility] HospitalComformerly [facility] on above:Performed By: #### LIVER, BMP, LIPA, EDSON #### [facility] [address] [address] [address] Julia VelasquezNRBCNormalThe [facility] HospitalComment on above:Performed By: #### LIVER, BMP, LIPA, EDSON #### [facility] [address] [address] [address] Julia VelasquezPLT240 103/cvGpvnbb209-704Uon [facility] HospitalComment on above: Performed By: #### LIVER, BMP, LIPA, EDSON #### [facility] [address] [place] [address] Dr. Julia VelasquezRBC3.00 106/ulCritically low4.20-5.40The [facility] HospitalComment on above:Performed By: #### LIVER, BMP, LIPA, EDSON #### [facility] [address] [place] [address] Dr. Julia VelasquezRDW17.2 %Critically high11.0-15.0The [facility] HospitalComment on above:Performed By: #### LIVER, BMP, LIPA, EDSON #### [facility] [address] [place] [address] Dr. Julia Navarro #8.58 103/ulCritically high1.40-6.50The [facility] Comment on above:Performed By: #### LIVER, BMP, LIPA, EDSON #### [facility] [address] [place] [address] Dr. Julia Navarro %78.0 %Critically high43.0-75.0The [facility] HospitalComment on above:Performed By: #### LIVER, BMP, LIPA, EDSON #### [facility] [address] [place] [address] Dr. Julia VelasquezWBC11.0 103/ulNormal4.0-11.0The [facility] HospitalComment on above:Performed By: #### LIVER, BMP, LIPA, EDSON #### [facility] [address] [place] [address] Dr. Julia Contreras 14(COMP METB)on [id number] [Mass/Vol]1.3 g/dL Critically low3.4-5.0The [facility] HospitalComment on above:Performed By: #### CMP #### [facility] [address] [place] [address] Dr. Julia VelasquezAlbumin/Globulin [Mass ratio]0.3 {ratio}NormalThe [facility] HospitalComment on above:Performed By: #### CMP #### [facility] [address] [address] [address] Julia Hernandez [Catalytic activity/Vol]93 U/XDnyutp60-432Sor [facility] HospitalComment on above:Performed By: #### CMP #### [facility] [address] [address] [address] Julia Morrison [Catalytic activity/Vol]30 U/TMwulax25-08Vqa [facility] HospitalComment on above:Performed By: #### CMP #### [facility] [address] [address] [address] Julia Gonzalez gap [Moles/Vol]13.4 mmol/LNormalThe [facility] Comment on above:Performed By: #### CMP #### [facility] [address] [place] [address] Dr. Julia VelasquezAST [Catalytic activity/Vol]71 U/LCritically mwkt64-57Ozf [facility] HospitalComment on above:Performed By: #### CMP #### [facility] [address] [place] [address] Dr. Julia VelasquezBilirubin [Mass/Vol]1.2 mg/dLCritically high0.2-1.0The [facility] HospitalComformerly [facility] on above:Performed By: #### CMP #### [facility] [address] [place] [address] Dr. Julia VelasquezCalcium [Mass/Vol]8.1 mg/dLCritically low8.5-10.1The [facility] HospitalComment on above:Performed By: #### CMP #### [facility] [address] [place] [address] Dr. Julia VelasquezChloride [Moles/Vol]116 mmol/LCritically znrb17-962Fqz [facility] HospitalComformerly [facility] on above:Performed By: #### CMP #### [facility] [address] [place] [address] Dr. Julia VelasquezCO2 [Moles/Vol]21.3 mmol/WExqdld97.0-32.0The [facility] Comment on above:Performed By: #### CMP #### [facility] [address] [address] [address] Julia VelasquezCreatinine [Mass/Vol]1.10 mg/dLCritically high0.55-1.02The [facility] HospitalComment on above:Performed By: #### CMP #### [facility] [address] [address] [address] Dumont ChangEGFR-AF OIYZIYMY45 mL/min/1.10a4Cvmothllmd low>=60The [facility] HospitalComment on above:Performed By: #### CMP #### [facility] [address] [address] [address] Julia MarquezGFR-NON AF ZFPHFGUH13 mL/min/1.77d9Wdekaetsbv low>=60The [facility] HospitalComment on above:Performed By: #### CMP #### [facility] [address] [address] [address] Julia VelasquezGlobulin (S) [Mass/Vol]3.8 g/dLNormalThe [facility] HospitalComment on above:Performed By: #### CMP #### [facility] [address] [address] [address] Julia VelasquezGlucose [Mass/Vol]110 mg/dLCritically zdxf50-854Xas [facility] HospitalComment on above:Performed By: #### CMP #### [facility] [address] [address] [address] Julia VelasquezPotassium [Moles/Vol]4.7 mmol/LNormal3.5-5.1The [facility] Comment on above:Performed By: #### CMP #### [facility] [address] [address] [address] Julia VelasquezProtein [Mass/Vol]5.1 g/dLCritically low6.4-8.2The [facility] HospitalComment on above:Performed By: #### CMP #### [facility] [address] [address] [address] Julia VelasquezSodium [Moles/Vol]146 mmol/LCritically ckiu903-868Ais Reyes HospitalComment on above:Performed By: #### CMP #### [facility] [address] [address] [address] Julia Belcher nitrogen [Mass/Vol]34.0 mg/dLCritically high7.0-18.0[facility] on above:Performed By: #### CMP #### [facility] [address] [place] [address] Dr. Julia Belcher nitrogen/Creatinine [Mass ratio]30.9 mg/mgNormalThe [facility] HospitalComment on above:Performed By: #### CMP #### [facility] [address] [place] [address] Dr. Julia Nam W MANUAL DIFFon [id number] LYMPH #0.21 103/ulNormal The [facility] HospitalComformerly [facility] on above:Performed By: #### CMP #### [facility] [address] [place] [address] Dr. Julia NavarroICAL LYMPH %1 %NormalMercy Health Fairfield HospitalComment on above: Performed By: #### CMP #### [facility] [address] [place] [address] Dr. Julia Reynoso #0.2 103/ulNormal0.0-0.3The [facility] on above:Performed By: #### CMP #### [facility] [address] [place] [address] Dr. Julia Reynoso %1 %Normal0-5The [facility] on above:Performed By: #### CMP #### [facility] [address] [place] [address] Dr. Julia Noriega #0.00 103/ulNormal0.00-0.10The [facility] on above:Performed By: #### CMP #### [facility] [address] [place] [address] Dr. Julia Noriega %0.0 %Critically low0.2-2.0The [facility] HospitalComformerly [facility] on above:Performed By: #### CMP #### [facility] [address] [address] [address] Julia De La Cruz #NormalThe [place] HospitalComment on above:Performed By: #### CMP #### [facility] [address] [address] [address] Julia VelasquezBLAST %NormalThe [facility] HospitalComment on above:Performed By: #### CMP #### [facility] [address] [address] [address] Julia VelasquezCORRECTED WBCNormal4.0-11.0The [facility] HospitalComment on above: Performed By: #### CMP #### [facility] [address] [place] [address] Dr. Julia Cano #0.00 103/ulNormal0.00-0.70The [facility] HospitalComment on above:Performed By: #### CMP #### [facility] [address] [place] [address] Dr. Julia Cano%0.0 %Critically low0.9-7.0[facility] HospitalComment on above:Performed By: #### CMP #### [facility] [address] [place] [address] Dr. Julia VelasquezHCT26.7 %Critically low36.0-48.0The [facility] HospitalComment on above:Performed By: #### CMP #### [facility] [address] [place] [address] Dr. Julia VelasquezHGB8.8 g/dlCritically low12.0-16.0The [facility] HospitalComment on above:Performed By: #### CMP #### [facility] [address] [place] [address] Dr. Julia Mccormick #1.05 103/ulCritically low1.20-3.80The [facility] on above:Performed By: #### CMP #### [facility] [address] [place] [address] Dr. Julia Mccormick%5.0 %Critically low20.5-60.0The [facility] HospitalComment on above:Performed By: #### CMP #### [facility] [address] [address] [address] Julia ToussaintH29.0 uhKjryav55.7-34.0The [place] HospitalComment on above: Performed By: #### CMP #### [facility] [address] [address] [address] Julia ToussaintHC33.0 g/ohBihidg38.9-35.2The [place] HospitalComment on above:Performed By: #### CMP #### [facility] [address] [place] [address] Dr. Julia ToussaintV88.1 tKNtohwh70.0-99.0The [facility] HospitalComment on above: Performed By: #### CMP #### [facility] [address] [place] [address] Dr. Julia Avitia #NormalThe [place] HospitalComment on above: Performed By: #### CMP #### [facility] [address] [place] [address] Dr. Julia BanerjeeOCYTE %NormalThe [facility] HospitalComment on above: Performed By: #### CMP #### [facility] [address] [place] [address] Dr. Julia Brian#0.21 103/ulCritically low0.30-0.80The [facility] Comment on above:Performed By: #### CMP #### [facility] [address] [place] [address] Dr. Julia Brian%1.0 %Critically low1.7-12.0The [facility] HospitalComment on above:Performed By: #### CMP #### [facility] [address] [place] [address] Dr. Julia ArnettV10.6 fLNormal9.5-13.5The [facility] HospitalComment on above: Performed By: #### CMP #### [facility] [address] [place] [address] Dr. Julia Winter #NormalThe [facility] HospitalComment on above:Performed By: #### CMP #### [facility] [address] [address] [address] Julia BlakeOCYTE %NormalThe [facility] HospitalComment on above:Performed By: #### CMP #### [facility] [address] [address] [address] Julia GarciaBCNormalThe [facility] HospitalComment on above:Performed By: #### CMP #### [facility] [address] [address] [address] Julia HernandezT271 103/cgNxsemz340-341Tyu [facility] HospitalComment on above: Performed By: #### CMP #### [facility] [address] [place] [address] Dr. Julia StevenC3.03 106/ulCritically low4.20-5.40The [facility] HospitalComment on above:Performed By: #### CMP #### [facility] [address] [place] [address] Dr. Julia BishopW16.7 %Critically high11.0-15.0The [facility] HospitalComment on above:Performed By: #### CMP #### [facility] [address] [place] [address] Dr. Julia Navarro #19.41 103/ulCritically high1.40-6.50The [facility] on above:Performed By: #### CMP #### [facility] [address] [place] [address] Dr. Julia Navarro %92.0 %Critically high43.0-75.0The [facility] HospitalComment on above:Performed By: #### CMP #### [facility] [address] [place] [address] Dr. Julia SyedBC21.1 103/ulCritically high4.0-11.0The [facility] HospitalComment on above:Performed By: #### CMP #### [facility] [address] [place] [address] Dr. Julia Contreras 14(COMP METB)on [id number] [Mass/Vol]1.4 g/dL Critically low3.4-5.0The [facility] HospitalComment on above:Performed By: #### CMP #### [facility] [address] [place] [address] Dr. Julia VelasquezAlbumin/Globulin [Mass ratio]0.4 {ratio}NormalThe [facility] HospitalComment on above:Performed By: #### CMP #### [facility] [address] [place] [address] Dr. Julia ConradP [Catalytic activity/Vol]87 U/PZajpcd38-351Olf [facility] HospitalComment on above:Performed By: #### CMP #### [facility] [address] [place] [address] Dr. Julia ConradT [Catalytic activity/Vol]26 U/JNgkysq42-86Qlj [facility] HospitalComment on above:Performed By: #### CMP #### [facility] [address] [place] [address] Dr. Julia Gonzalez gap [Moles/Vol]14.7 mmol/LNormalThe [facility] Comment on above:Performed By: #### CMP #### [facility] [address] [place] [address] Dr. Julia VelasquezAST [Catalytic activity/Vol]59 U/LCritically xpgx92-30Ili [facility] HospitalComment on above:Performed By: #### CMP #### [facility] [address] [place] [address] Dr. Julia VelasquezBilirubin [Mass/Vol]1.5 mg/dLCritically high0.2-1.0The [facility] HospitalComment on above:Performed By: #### CMP #### [facility] [address] [place] [address] Dr. Julia VelasquezCalcium [Mass/Vol]8.1 mg/dLCritically low8.5-10.1The [facility] HospitalComment on above:Performed By: #### CMP #### [facility] [address] [place] [address] Dr. Julia VelasquezChloride [Moles/Vol]118 mmol/LCritically lqfs63-568Uwx [facility] HospitalComment on above:Performed By: #### CMP #### [facility] [address] [place] [address] Dr. Julia VelasquezCO2 [Moles/Vol]20.6 mmol/LCritically low21.0-32.0The [facility] HospitalComment on above:Performed By: #### CMP #### [facility] [address] [place] [address] Dr. Julia VelasquezCreatinine [Mass/Vol]1.20 mg/dLCritically high0.55-1.02The [facility] HospitalComment on above:Performed By: #### CMP #### [facility] [address] [place] [address] Dr. Julia MarquezGFR-AF QUKUCSNC59 mL/min/1.24k5Dcqwzpfnfn low>=60The [facility] HospitalComment on above:Performed By: #### CMP #### [facility] [address] [place] [address] Dr. Julia MarquezGFR-NON AF UDVHDALJ25 mL/min/1.78l2Qcpdvlcwwc low>=60The [facility] HospitalComment on above:Performed By: #### CMP #### [facility] [address] [place] [address] Dr. Julia VelasquezGlobulin (S) [Mass/Vol]3.4 g/dLNormalThe [facility] HospitalComment on above:Performed By: #### CMP #### [facility] [address] [place] [address] Dr. Julia VelasquezGlucose [Mass/Vol]119 mg/dLCritically blro01-152Siv [facility] HospitalComment on above:Performed By: #### CMP #### [facility] [address] [place] [address] Dr. Julia VelasquezPotassium [Moles/Vol]4.3 mmol/LNormal3.5-5.1The [facility] Comment on above:Performed By: #### CMP #### [facility] [address] [place] [address] Dr. Julia VelasquezProtein [Mass/Vol]4.8 g/dLCritically low6.4-8.2The [facility] HospitalComment on above:Performed By: #### CMP #### [facility] [address] [place] [address] Dr. Julia Toddum [Moles/Vol]149 mmol/LCritically oiql196-469Pbx [facility] HospitalComment on above:Performed By: #### CMP #### [facility] [address] [place] [address] Dr. Julia Belcher nitrogen [Mass/Vol]47.0 mg/dLCritically high7.0-18.0The [facility] HospitalComment on above:Performed By: #### CMP #### [facility] [address] [place] [address] Dr. Julia Belcher nitrogen/Creatinine [Mass ratio]39.2 mg/mgNormalThe [facility] HospitalComment on above:Performed By: #### CMP #### [facility] [address] [place] [address] Dr. Julia Nam W MANUAL DIFFon [id number] LYMPH #NormalThe [facility] HospitalComment on above:Performed By: #### LIVER, BMP, LIPA, EDSON #### [facility] [address] [place] [address] Dr. Julia AngelesYPICAL LYMPH %NormalThe [facility] HospitalComment on above: Performed By: #### LIVER, BMP, LIPA, EDSON #### [facility] [address] [place] [address] Dr. Julia Reynoso #0.9 103/ulCritically high0.0-0.3The [facility] Comment on above:Performed By: #### LIVER, BMP, LIPA, EDSON #### [facility] [address] [place] [address] Dr. Julia Reynoso %3 %Normal0-5The [facility] HospitalComment on above:Performed By: #### LIVER, BMP, LIPA, EDSON #### [facility] [address] [place] [address] Dr. Julia Noriega #0.00 103/ulNormal0.00-0.10The [facility] HospitalComment on above:Performed By: #### LIVER, BMP, LIPA, EDSON #### [facility] [address] [place] [address] Dr. Julia Noriega %0.0 %Critically low0.2-2.0The [place] HospitalComment on above:Performed By: #### LIVER, BMP, LIPA, EDSON #### [facility] [address] [place] [address] Dr. Julia De La Cruz #NormalThe [place] HospitalComment on above:Performed By: #### LIVER, BMP, LIPA, EDSON #### [facility] [address] [place] [address] Dr. Julia De La Cruz %NormalThe [facility] HospitalComment on above:Performed By: #### LIVER, BMP, LIPA, EDSON #### [facility] [address] [place] [address] Dr. Julia VelasquezCORRECTED WBCNormal4.0-11.0The [facility] HospitalComment on above: Performed By: #### LIVER, BMP, LIPA, EDSON #### [facility] [address] [place] [address] Dr. Julia Cano #0.00 103/ulNormal0.00-0.70The [facility] HospitalComment on above:Performed By: #### LIVER, BMP, LIPA, EDSON #### [facility] [address] [place] [address] Dr. Julia Cano%0.0 %Critically low0.9-7.0The [facility] HospitalComment on above:Performed By: #### LIVER, BMP, LIPA, EDSON #### [facility] [address] [place] [address] Dr. Julia VelasquezHCT28.9 %Critically low36.0-48.0The [facility] HospitalComment on above:Performed By: #### LIVER, BMP, LIPA, EDSON #### [facility] [address] [place] [address] Dr. Julia Cerda9.5 g/dlCritically low12.0-16.0The [facility] HospitalComment on above:Performed By: #### LIVER, BMP, LIPA, EDSON #### [facility] [address] [place] [address] Dr. Julia Mccormick #1.21 103/ulNormal1.20-3.80The [facility] HospitalComment on above:Performed By: #### LIVER, BMP, LIPA, EDSON #### [facility] [address] [place] [address] Dr. Julia Mccormick%4.0 %Critically low20.5-60.0The [facility] HospitalComformerly [facility] on above:Performed By: #### LIVER, BMP, LIPA, EDSON #### [facility] [address] [place] [address] Dr. Julia VelasquezMCH29.2 igCwlivb54.7-34.0The [facility] HospitalComment on above: Performed By: #### LIVER, BMP, LIPA, EDSON #### [facility] [address] [place] [address] Dr. Julia ToussaintHC32.9 g/owKtobxs50.9-35.2The [facility] HospitalComformerly [facility] on above:Performed By: #### LIVER, BMP, LIPA, EDSON #### [facility] [address] [place] [address] Dr. Julia ToussaintV88.9 zFWozgqp48.0-99.0The [facility] HospitalComment on above: Performed By: #### LIVER, BMP, LIPA, EDSON #### [facility] [address] [place] [address] Dr. Julia BanerjeeOCYTE #NormalThe [facility] HospitalComment on above: Performed By: #### LIVER, BMP, LIPA, EDSON #### [facility] [address] [place] [address] Dr. Julia BanerjeeOCYTE %NormalThe [facility] HospitalComment on above: Performed By: #### LIVER, BMP, LIPA, EDSON #### [facility] [address] [place] [address] Dr. Julia Brian#1.21 103/ulCritically high0.30-0.80The [facility] Comment on above:Performed By: #### LIVER, BMP, LIPA, EDSON #### [facility] [address] [place] [address] Dr. Julia Brian%4.0 %Normal1.7-12.0The [facility] HospitalComment on above: Performed By: #### LIVER, BMP, LIPA, EDSON #### [facility] [address] [place] [address] Dr. Julia ArnettV11.2 fLNormal9.5-13.5The [facility] HospitalComment on above: Performed By: #### LIVER, BMP, LIPA, EDSON #### [facility] [address] [place] [address] Dr. Julia Winter #NormalThe [facility] HospitalComment on above:Performed By: #### LIVER, BMP, LIPA, EDSON #### [facility] [address] [place] [address] Dr. Julia Winter %NormalThe [facility] HospitalComment on above:Performed By: #### LIVER, BMP, LIPA, EDSON #### [facility] [address] [place] [address] Dr. Julia GarciaGebdqFPHB5ZowgmtLmu [facility] HospitalComment on above:Performed By: #### LIVER, BMP, LIPA, EDSON #### [facility] [address] [place] [address] Dr. Julia HernandezT273 103/vkMacypx829-661Udi [facility] HospitalComment on above: Performed By: #### LIVER, BMP, LIPA, EDSON #### [facility] [address] [place] [address] Dr. Julia VelasquezRBC3.25 106/ulCritically low4.20-5.40The [facility] HospitalComment on above:Performed By: #### LIVER, BMP, LIPA, EDSON #### [facility] [address] [address] [address] Julia VelasquezRDW16.0 %Critically high11.0-15.0The [facility] HospitalComment on above:Performed By: #### LIVER, BMP, LIPA, EDSON #### [facility] [address] [place] [address] Dr. Julia Navarro #26.97 103/ulCritically high1.40-6.50The [facility] Comment on above:Performed By: #### LIVER, BMP, LIPA, EDSON #### [facility] [address] [place] [address] Dr. Julia Navarro %89.0 %Critically high43.0-75.0The [facility] HospitalComment on above:Performed By: #### LIVER, BMP, LIPA, EDSON #### [facility] [address] [place] [address] Dr. Julia VelasquezWBC30.3 103/ulCritically high4.0-11.0The [facility] HospitalComment on above:Performed By: #### LIVER, BMP, LIPA, EDSON #### [facility] [address] [place] [address] Dr. Julia Fong PANEL (PCR)on [id number] F 40/41Not detectedNormal NOT DETECTEDThe [facility] HospitalComment on above:Performed By: #### LIVER, BMP, LIPA, EDSON #### [facility] [address] [place] [address] Dr. Julia ParekhovirusNot detectedNormalNOT DETECTEDThe [facility] Comment on above:Performed By: #### LIVER, BMP, LIPA, EDSON #### [facility] [address] [place] [address] Dr. Julia Frazier. Diff toxin A/BNot detectedNormalNOT DETECTEDThe [facility] HospitalComment on above:Performed By: #### LIVER, BMP, LIPA, EDSON #### [facility] [address] [place] [address] Dr. Julia GaminopylobacterNot detectedNormalNOT DETECTEDThe [facility] Comment on above:Performed By: #### LIVER, BMP, LIPA, EDSON #### [facility] [address] [address] [address] Julia KatyptosporidiumNot detectedNormalNOT DETECTEDThe [facility] Hospitalment on above:Performed By: #### LIVER, BMP, LIPA, EDSON #### [facility] [address] [address] [address] Julia Mead. CayetanensisNot detectedNormalNOT DETECTEDThe [facility] HospitalComformerly [facility] on above:Performed By: #### LIVER, BMP, LIPA, EDSON #### [facility] [address] [address] [address] Julia Marquez. Coli O574Abn ApplicableNormalNot ApplicableThe [facility] on above:Performed By: #### LIVER, BMP, LIPA, EDSON #### [facility] [address] [address] [address] Julia Marquez. histolyticaNot detectedNormalNOT DETECTEDThe [facility] Comment on above:Performed By: #### LIVER, BMP, LIPA, EDSON #### [facility] [address] [address] [address] Julia MarquezAECNot detectedNormalNOT DETECTEDThe [facility] on above:Performed By: #### LIVER, BMP, LIPA, EDSON #### [facility] [address] [address] [address] uJlia MarquezIECNot detectedNormalNOT DETECTEDThe [facility] HospitalComformerly [facility] on above:Performed By: #### LIVER, BMP, LIPA, EDSON #### [facility] [address] [address] [address] Julia MarquezPECNot detectedNormalNOT DETECTEDThe [facility] HospitalComformerly [facility] on above:Performed By: #### LIVER, BMP, LIPA, EDSON #### [facility] [address] [address] [address] Julia MarquezTECNot detectedNormalNOT DETECTEDThe [facility] HospitalComment on above:Performed By: #### LIVER, BMP, LIPA, EDSON #### [facility] [address] [address] [address] Julia Roman LambliaNot detectedNormalNOT DETECTEDMer[facility] Health [facility] Comment on above:Performed By: #### LIVER, BMP, LIPA, EDSON #### [facility] [address] [address] [address] Julia BONNERPASSSelect Medical Specialty Hospital - Cincinnati NorthComment on above:Performed By: #### LIVER, BMP, LIPA, EDSON #### [facility] [address] [address] [address] Julia Celaya [place] HEADERGI PANEL [facility] Comment on above:Performed By: #### LIVER, BMP, LIPA, EDSON #### [facility] [address] [address] [address] Julia Mcdermott ECOLIGI PANEL DIARRHEAGENIC E.COLI / SHIGELLAClinton Memorial HospitalComment on above:Performed By: #### LIVER, BMP, LIPA, EDSON #### [facility] [address] [address] [address] Julia Mcdermott INFOSEE [facility] CampusComment on above: Result Comment: EAEC- Enteroaggregative E. Coli EPEC- Enteropathogenic E. Coli ETEC- Enterotoxigenic E. Coli lt/st STEC- Shigella-like toxin-producing E. Coli stx1/stx2 EIEC- Shigella/Enteroinvasive E. ColiPerformed By: #### LIVER, BMP, LIPA, EDSON #### [facility] [address] [address] [address] Julia Mcdermott PARASITESGI PANEL [facility] Comment on above:Performed By: #### LIVER, BMP, LIPA, EDSON #### [facility] [address] [address] [address] Julia Mcdermott VIRUSGI PANEL [facility] HospitalComment on above:Performed By: #### LIVER, BMP, LIPA, EDSON #### [facility] [address] [address] [address] Julia Alexanderrovirus GI/GIINot detectedNormalNOT DETECTEDThe [facility] HospitalComment on above:Performed By: #### LIVER, BMP, LIPA, EDSON #### [facility] [address] [address] [address] Julia Ta. ShigelloidesNot detectedNormalNOT DETECTEDThe [facility] HospitalComment on above:Performed By: #### LIVER, BMP, LIPA, EDSON #### [facility] [address] [address] [address] Julia VelasquezRotavirus ANot detectedNormalNOT DETECTEDMer[facility] Health [facility] Comment on above:Performed By: #### LIVER, BMP, LIPA, EDSON #### [facility] [address] [address] [address] Julia VelasquezSalmonellaNot detectedNormalNOT DETECTEDMer[facility] Health [facility] Comment on above:Performed By: #### LIVER, BMP, LIPA, EDSON #### [facility] [address] [address] [address] Julia VelasquezSapovirusNot detectedNormalNOT DETECTEDMer[facility] Health [facility] Comment on above:Performed By: #### LIVER, BMP, LIPA, EDSON #### [facility] [address] [address] [address] Julia VelasquezSTECNot detectedNormalNOT DETECTEDThe [facility] HospitalComment on above:Performed By: #### LIVER, BMP, LIPA, EDSON #### [facility] [address] [address] [address] Julia EnnisbrioNot detectedNormalNOT DETECTEDThe [facility] HospitalComment on above:Performed By: #### LIVER, BMP, LIPA, EDSON #### [facility] [address] [address] [address] Julia Celisio CholeraNot detectedNormalNOT DETECTEDMer[facility] Health [facility] Comment on above:Performed By: #### LIVER, BMP, LIPA, EDSON #### [facility] [address] [address] [address] Julia Beard. EnterocoliticaNot detectedNormalNOT DETECTEDThe [facility] Hospitalment on above:Performed By: #### LIVER, BMP, LIPA, EDSON #### [facility] [address] [place] [address] Dr. Julia Contreras 14(COMP METB)on [id number] [Mass/Vol]1.4 g/dL Critically low3.4-5.0The [facility] HospitalComment on above:Performed By: #### LIVER, BMP, LIPA, EDSON #### [facility] [address] [place] [address] Dr. Julia VelasquezAlbumin/Globulin [Mass ratio]0.3 {ratio}NormalThe [facility] HospitalComment on above:Performed By: #### LIVER, BMP, LIPA, EDSON #### [facility] [address] [place] [address] Dr. Julia Hrenandez [Catalytic activity/Vol]89 U/LQbkbhj90-655Ewf [facility] HospitalComment on above:Performed By: #### LIVER, BMP, LIPA, EDSON #### [facility] [address] [place] [address] Dr. Julia Morrison [Catalytic activity/Vol]27 U/ZFwldgv43-62Aqi [facility] Hospitalment on above:Performed By: #### LIVER, BMP, LIPA, EDSON #### [facility] [address] [place] [address] Dr. Julia Gonzalez gap [Moles/Vol]14.7 mmol/LNormalThe [facility] Comment on above:Performed By: #### LIVER, BMP, LIPA, EDSON #### [facility] [address] [place] [address] Dr. Julia VelasquezAST [Catalytic activity/Vol]58 U/LCritically dalz38-03Fyu [facility] Hospitalment on above:Performed By: #### LIVER, BMP, LIPA, EDSON #### [facility] [address] [place] [address] Dr. Julia VelasquezBilirubin [Mass/Vol]2.0 mg/dLCritically high0.2-1.0The [facility] HospitalComment on above:Performed By: #### LIVER, BMP, LIPA, EDSON #### [facility] [address] [address] [address] Julia VelasquezCalcium [Mass/Vol]8.8 mg/dLNormal8.5-10.1The [facility] Comment on above:Performed By: #### LIVER, BMP, LIPA, EDSON #### [facility] [address] [place] [address] Dr. Julia VelasquezChloride [Moles/Vol]118 mmol/LCritically xqxr84-082Szc [facility] Hospitalment on above:Performed By: #### LIVER, BMP, LIPA, EDSON #### [facility] [address] [place] [address] Dr. Julia VelasquezCO2 [Moles/Vol]20.7 mmol/LCritically low21.0-32.0The [facility] HospitalComment on above:Performed By: #### LIVER, BMP, LIPA, EDSON #### [facility] [address] [place] [address] Dr. Julia VelasquezCreatinine [Mass/Vol]1.63 mg/dLCritically high0.55-1.02The [facility] HospitalComment on above:Performed By: #### LIVER, BMP, LIPA, EDSON #### [facility] [address] [place] [address] Dr. Dumont ChangEGFR-AF NWEZHWXZ71 mL/min/1.50x3Wqwmejpbyn low>=60The [facility] Hospitalment on above:Performed By: #### LIVER, BMP, LIPA, EDSON #### [facility] [address] [place] [address] Dr. Dumont ChangEGFR-NON AF OQCBJVYD49 mL/min/1.18v2Sjrmkmfunw low>=60The [facility] on above:Performed By: #### LIVER, BMP, LIPA, EDSON #### [facility] [address] [place] [address] Dr. Julia VelasquezGlobulin (S) [Mass/Vol]4.7 g/dLNormalThe [facility] HospitalComment on above:Performed By: #### LIVER, BMP, LIPA, EDSON #### [facility] [address] [address] [address] Julia VelasquezGlucose [Mass/Vol]130 mg/dLCritically yidv63-753Coh [facility] HospitalComment on above:Performed By: #### LIVER, BMP, LIPA, EDSON #### [facility] [address] [address] [address] Julia VelasquezPotassium [Moles/Vol]4.4 mmol/LNormal3.5-5.1The [facility] Comment on above:Performed By: #### LIVER, BMP, LIPA, EDSON #### [facility] [address] [address] [address] Julia VelasquezProtein [Mass/Vol]6.1 g/dLCritically low6.4-8.2The [facility] HospitalComment on above:Performed By: #### LIVER, BMP, LIPA, EDSON #### [facility] [address] [place] [address] Dr. Julia VelasquezSodium [Moles/Vol]149 mmol/LCritically almd733-646Xcy [facility] HospitalComment on above:Performed By: #### LIVER, BMP, LIPA, EDSON #### [facility] [address] [place] [address] Dr. Julia VelasquezUrea nitrogen [Mass/Vol]56.0 mg/dLCritically high7.0-18.0The [facility] HospitalComment on above:Performed By: #### LIVER, BMP, LIPA, EDSON #### [facility] [address] [place] [address] Dr. Julia VelasquezUrea nitrogen/Creatinine [Mass ratio]34.4 mg/mgNormalThe [facility] HospitalComment on above:Performed By: #### LIVER, BMP, LIPA, EDSON #### [facility] [address] [place] [address] Dr. Julia VelasquezRESPIRATORY PANEL PLUSon [id number] detectedNormal NOT DETECTEDThe [facility] HospitalComment on above:Performed By: #### LIVER, BMP, LIPA, EDSON #### [facility] [address] [address] [address] Julia Manuel. ParapertusisNot detectedNormalNOT DETECTEDThe [facility] HospitalComment on above:Performed By: #### LIVER, BMP, LIPA, EDSON #### [facility] [address] [address] [address] Julia Manuel. PertussisNot detectedNormalNOT DETECTEDThe [facility] Comment on above:Performed By: #### LIVER, BMP, LIPA, EDSON #### [facility] [address] [address] [address] Julia VelasquezChlamydia PneumoniaeNot detectedNormalNOT DETECTEDThe [facility] HospitalComment on above:Performed By: #### LIVER, BMP, LIPA, EDSON #### [facility] [address] [address] [address] Julia VelasquezCoronavirus 229ENot detectedNormalNOT DETECTEDThe [facility] HospitalComment on above:Performed By: #### LIVER, BMP, LIPA, EDSON #### [facility] [address] [address] [address] Julia VelasquezCoronavirus [id number] detectedNormalNOT DETECTEDThe [facility] HospitalComment on above:Performed By: #### LIVER, BMP, LIPA, EDSON #### [facility] [address] [address] [address] Julia VelasquezCoronavirus [id number] detectedNormalNOT DETECTEDThe [facility] HospitalComment on above:Performed By: #### LIVER, BMP, LIPA, EDSON #### [facility] [address] [address] [address] Julia VelasquezCoronavirus [id number] detectedNormalNOT DETECTEDThe [facility] HospitalComment on above:Performed By: #### LIVER, BMP, LIPA, EDSON #### [facility] [address] [address] [address] Julia VelasquezInfluenza A H1Not detectedNormalNOT DETECTEDThe [facility] Comment on above:Performed By: #### LIVER, BMP, LIPA, EDSON #### [facility] [address] [address] [address] Julia Lambert H1 2009Not detectedNormalNOT DETECTEDThe [facility] HospitalComment on above:Performed By: #### LIVER, BMP, LIPA, EDSON #### [facility] [address] [address] [address] Julia Zendejas A H3Not detectedNormalNOT DETECTEDThe [facility] Comment on above:Performed By: #### LIVER, BMP, LIPA, EDSON #### [facility] [address] [address] [address] Julia Zendejas BNot detectedNormalNOT DETECTEDThe [facility] Comment on above:Performed By: #### LIVER, BMP, LIPA, EDSON #### [facility] [address] [address] [address] Julia GramajoapneumovirusNot detectedNormalNOT DETECTEDThe [facility] HospitalComformerly [facility] on above:Performed By: #### LIVER, BMP, LIPA, EDSON #### [facility] [address] [address] [address] Julia Henry. PneumoniaeNot detectedNormalNOT DETECTEDThe [facility] HospitalComment on above:Performed By: #### LIVER, BMP, LIPA, EDSON #### [facility] [address] [address] [address] Julia North 1Not detectedNormalNOT DETECTEDThe [facility] HospitalComment on above:Performed By: #### LIVER, BMP, LIPA, EDSON #### [facility] [address] [address] [address] Julia North 2Not detectedNormalNOT DETECTEDThe [facility] HospitalComment on above:Performed By: #### LIVER, BMP, LIPA, EDSON #### [facility] [address] [address] [address] Julia North 3Not detectedNormalNOT DETECTEDThe [facility] HospitalComment on above:Performed By: #### LIVER, BMP, LIPA, EDSON #### [facility] [facility] [address] [address] [address] Julia Woodrufffluenza 4Not detectedNormalNOT DETECTEDThe [facility] on above:Performed By: #### LIVER, BMP, LIPA, EDSON #### [facility] [address] [address] [address] Julia VelasquezRhino/EnterovirusNot detectedNormalNOT DETECTEDThe [facility] HospitalComment on above:Performed By: #### LIVER, BMP, LIPA, EDSON #### [facility] [address] [place] [address] Dr. Julia Grover Header 1RESPIRATORY PANEL: [facility]ESCl[facility] Comment on above:Performed By: #### LIVER, BMP, LIPA, EDSON #### [facility] [address] [place] [address] Dr. Julia Grover Header 2RESPIRATORY PANEL: BACTERIAClinton Memorial HospitalComment on above:Performed By: #### LIVER, BMP, LIPA, EDSON #### [facility] [address] [place] [address] Dr. Julia HerronVNot detectedNormalNOT DETECTEDThe [facility] on above:Performed By: #### LIVER, BMP, LIPA, EDSON #### [facility] [address] [place] [address] Dr. Julia Hall-CoV-2 (COVID-19) RNA MARIO+probe Ql (Unsp spec)Not detected NormalNOT DETECTEDThe [facility] Hospitalment on above:Performed By: #### LIVER, BMP, LIPA, EDSON #### [facility] [address] [place] [address] Dr. Julia Nam AUTO DIFFon [id number] #0.1 103/ulNormal0.0-0.1The [facility] on above:Performed By: #### CMP #### [facility] [address] [place] [address] Dr. Julia VelasquezBasophils/100 WBC (Bld)0.4 %Normal0.2-2.0The [facility] Comment on above:Performed By: #### CMP #### [facility] [address] [place] [address] Dr. Julia Isidro #0.0 103/ulNormal0.0-0.7The [facility] HospitalComment on above: Performed By: #### CMP #### [facility] [address] [place] [address] Dr. Julia Marquezosinophils/100 WBC (Bld)0.0 %Critically low0.9-7.0The [facility] HospitalComment on above:Performed By: #### CMP #### [facility] [address] [place] [address] Dr. Julia Marquezrythrocyte distribution width (RBC) [Ratio]15.9 %Critically high 11.0-15.0The [facility] HospitalComment on above:Performed By: #### CMP #### [facility] [address] [place] [address] Dr. Julia VelasquezHematocrit (Bld) [Volume fraction]34.4 %Critically low36.0-48.0 The [facility] HospitalComment on above:Performed By: #### CMP #### [facility] [address] [place] [address] Dr. Julia VelasquezHemoglobin (Bld) [Mass/Vol]11.1 g/dLCritically low12.0-16.0[facility] HospitalComment on above:Performed By: #### CMP #### [facility] [address] [place] [address] Dr. Julia Donald #0.75 10e3/ulCritically high0.00-0.03The [facility] Comment on above:Performed By: #### CMP #### [facility] [address] [place] [address] Dr. Julia Donald %2.7 %Critically high0.0-0.5The [facility] HospitalComment on above:Performed By: #### CMP #### [facility] [address] [place] [address] Dr. Yilan ChangLYMPH #0.7 103/ulCritically low1.2-3.8The [facility] Comment on above:Performed By: #### CMP #### [facility] [address] [place] [address] Dr. Julia Devinemphocytes/100 WBC (Bld)2.4 %Critically low20.5-60.0The [facility] HospitalComment on above:Performed By: #### CMP #### [facility] [address] [place] [address] Dr. Julia Deras DIFF REQNONormalThe [facility] HospitalComment on above: Performed By: #### CMP #### [facility] [address] [place] [address] Dr. Julia Toussaint (RBC) [Entitic mass]29.2 xqExqoyt57.7-34.0The [facility] HospitalComment on above:Performed By: #### CMP #### [facility] [address] [place] [address] Dr. Julia Toussaint (RBC) [Mass/Vol]32.3 g/oXYrzsup17.9-35.2[facility] HospitalComment on above:Performed By: #### CMP #### [facility] [address] [place] [address] Dr. Julia Haywood (RBC) [Entitic vol]90.5 bKHxwrdq34.0-99.0[facility] HospitalComment on above:Performed By: #### CMP #### [facility] [address] [place] [address] Dr. Julia Giles #0.7 103/ulNormal0.3-0.8The [facility] HospitalComment on above:Performed By: #### CMP #### [facility] [address] [place] [address] Dr. Julia Lopezocytes/100 WBC (Bld)2.6 %Normal1.7-12.0[facility] Comment on above:Performed By: #### CMP #### [facility] [address] [place] [address] Dr. Julia Smith #25.6 103/ulCritically high1.4-6.5The [facility] Comment on above:Performed By: #### CMP #### [facility] [address] [place] [address] Dr. Julia Chaseophils/100 WBC (Bld)91.9 %Critically high43.0-75.0The [facility] HospitalComment on above:Performed By: #### CMP #### [facility] [address] [place] [address] Dr. Julia Mendezlet mean volume (Bld) [Entitic vol]11.1 fLNormal9.5-13.5The [facility] HospitalComment on above:Performed By: #### CMP #### [facility] [address] [place] [address] Dr. Julia VelasquezPLT240 103/yeRwqdgi052-384Czf [facility] HospitalComment on above: Performed By: #### CMP #### [facility] [address] [place] [address] Dr. Julia StevenC3.80 106/ulCritically low4.20-5.40The [facility] HospitalComment on above:Performed By: #### CMP #### [facility] [address] [place] [address] Dr. Julia VelasquezWBC27.9 103/ulCritically high4.0-11.0The [facility] HospitalComment on above:Performed By: #### CMP #### [facility] [address] [place] [address] Dr. Julia Nam W MANUAL DIFFon [id number] LYMPH #NormalThe [facility] HospitalComment on above:Performed By: #### LIVER, BMP, LIPA, EDSON #### [facility] [address] [place] [address] Dr. Julia VelasquezATYPICAL LYMPH %NormalThe [facility] HospitalComment on above: Performed By: #### LIVER, BMP, LIPA, EDSON #### [facility] [address] [place] [address] Dr. Julia Reynoso #3.0 103/ulCritically high0.0-0.3The [facility] Comment on above:Performed By: #### LIVER, BMP, LIPA, EDSON #### [facility] [address] [place] [address] Dr. Julia Reynoso %9 %Critically high0-5The [facility] HospitalComment on above: Performed By: #### LIVER, BMP, LIPA, EDSON #### [facility] [address] [place] [address] Dr. Julia Noriega #0.00 103/ulNormal0.00-0.10The [facility] [place] [facility] on above:Performed By: #### LIVER, BMP, LIPA, EDSON #### [facility] [address] [place] [address] Dr. Julia Noriega %0.0 %Critically low0.2-2.0The [facility] HospitalComment on above:Performed By: #### LIVER, BMP, LIPA, EDSON #### [facility] [address] [place] [address] Dr. Julia De La Cruz #NormalThe [facility] [place] HospitalComment on above:Performed By: #### LIVER, BMP, LIPA, EDSON #### [facility] [address] [place] [address] Dr. Julia De La Cruz %NormalMercy Health Fairfield HospitalComment on above:Performed By: #### LIVER, BMP, LIPA, EDSON #### [facility] [address] [place] [address] Dr. Julia RosalesRRECTED WBCNormal4.0-11.0The [facility] HospitalComment on above: Performed By: #### LIVER, BMP, LIPA, EDSON #### [facility] [address] [place] [address] Dr. Julia Cano #0.00 103/ulNormal0.00-0.70The [facility] HospitalComment on above:Performed By: #### LIVER, BMP, LIPA, EDSON #### [facility] [address] [place] [address] Dr. Julia Cano%0.0 %Critically low0.9-7.0The [facility] HospitalComment on above:Performed By: #### LIVER, BMP, LIPA, EDSON #### [facility] [address] [place] [address] Dr. Julia VelasquezHCT30.7 %Critically low36.0-48.0The [facility] HospitalComment on above:Performed By: #### LIVER, BMP, LIPA, EDSON #### [facility] [address] [place] [address] Dr. Julia VelasquezHGB10.1 g/dlCritically low12.0-16.0The [facility] HospitalComment on above:Performed By: #### LIVER, BMP, LIPA, EDSON #### [facility] [address] [place] [address] Dr. Julia Mccormick #0.67 103/ulCritically low1.20-3.80The [facility] Comment on above:Performed By: #### LIVER, BMP, LIPA, EDSON #### [facility] [address] [place] [address] Dr. Julia Mccormick%2.0 %Critically low20.5-60.0The [facility] HospitalComment on above:Performed By: #### LIVER, BMP, LIPA, EDSON #### [facility] [address] [place] [address] Dr. Julia VelasquezMCH29.5 csUmrjjr38.7-34.0The [facility] HospitalComment on above: Performed By: #### LIVER, BMP, LIPA, EDSON #### [facility] [address] [place] [address] Dr. Julia VelasquezMCHC32.9 g/dsRcwvzh59.9-35.2The [facility] HospitalComment on above:Performed By: #### LIVER, BMP, LIPA, EDSON #### [facility] [address] [place] [address] Dr. Julia VelasquezMCV89.8 kYMdnwef30.0-99.0The [facility] HospitalComment on above: Performed By: #### LIVER, BMP, LIPA, EDSON #### [facility] [address] [place] [address] Dr. Julia Avitia #NormalThe [facility] HospitalComment on above: Performed By: #### LIVER, BMP, LIPA, EDSON #### [facility] [address] [address] [address] Julia Avitia %NormalThe [facility] HospitalComment on above: Performed By: #### LIVER, BMP, LIPA, EDSON #### [facility] [address] [place] [address] Dr. Julia Brian#0.33 103/ulNormal0.30-0.80The [facility] HospitalComment on above:Performed By: #### LIVER, BMP, LIPA, EDSON #### [facility] [address] [place] [address] Dr. Julia Brian%1.0 %Critically low1.7-12.0The [facility] HospitalComment on above:Performed By: #### LIVER, BMP, LIPA, EDSON #### [facility] [address] [place] [address] Dr. Julia ArnettV10.1 fLNormal9.5-13.5The [facility] HospitalComment on above: Performed By: #### LIVER, BMP, LIPA, EDSON #### [facility] [address] [place] [address] Dr. Julia Winter #NormalThe [facility] HospitalComment on above:Performed By: #### LIVER, BMP, LIPA, EDSON #### [facility] [address] [place] [address] Dr. Julia Winter %NormalThe [facility] HospitalComment on above:Performed By: #### LIVER, BMP, LIPA, EDSON #### [facility] [address] [place] [address] Dr. Julia VelasquezNRBCNormalThe [facility] HospitalComment on above:Performed By: #### LIVER, BMP, LIPA, EDSON #### [facility] [address] [place], [place] [id number] Dr. Julia VelasquezPLT256 103/cwVfgmuy493-296Azi [facility] Hospitalment on above: Performed By: #### LIVER, BMP, LIPA, EDSON #### [facility] [address] [place] [address] Dr. Julia VelasquezRBC3.42 106/ulCritically low4.20-5.40The [facility] HospitalComment on above:Performed By: #### LIVER, BMP, LIPA, EDSON #### [facility] [address] [place] [address] Dr. Julia VelasquezRDW15.9 %Critically high11.0-15.0The [facility] HospitalComment on above:Performed By: #### LIVER, BMP, LIPA, EDSON #### [facility] [address] [place] [address] Dr. Julia Navarro #29.39 103/ulCritically high1.40-6.50The [facility] Comment on above:Performed By: #### LIVER, BMP, LIPA, EDSON #### [facility] [address] [place] [address] Dr. Julia Navarro %88.0 %Critically high43.0-75.0The [facility] on above:Performed By: #### LIVER, BMP, LIPA, EDSON #### [facility] [address] [place] [address] Dr. Julia VelasquezWBC33.4 103/ulCritically high4.0-11.0The [facility] HospitalComment on above:Performed By: #### LIVER, BMP, LIPA, EDSON #### [facility] [address] [place] [address] Dr. Julia Og BLOODon [id number] examination of blood, cultureCulture Observations: NO GROWTH AT 5 DAYS.NormalMercy Health Fairfield HospitalComment on above:Performed By: #### CMP #### [facility] [address] [place] [address] Dr. Julia VelasquezMicroscopic examination of blood, cultureCulture Observations: NO GROWTH AT 5 DAYS.NormalThe [facility] [place] HospitalComment on above:Performed By: #### CMP #### [facility] [address] [address] [address] Julia Contreras 14(COMP METB)on [id number] [Mass/Vol]1.9 g/dL Critically low3.4-5.0The [facility] [place] HospitalComment on above:Performed By: #### CMP #### [facility] [address] [place] [address] Dr. Julia VelasquezAlbumin/Globulin [Mass ratio]0.5 {ratio}NormalThe [facility] HospitalComment on above:Performed By: #### CMP #### [facility] [address] [place] [address] Dr. Julia Hernandez [Catalytic activity/Vol]94 U/EFumwga50-458Qsg [facility] HospitalComment on above:Performed By: #### CMP #### [facility] [address] [place] [address] Dr. Julia Morrison [Catalytic activity/Vol]34 U/JMzgtfw80-90Jsj [facility] HospitalComment on above:Performed By: #### CMP #### [facility] [address] [place] [address] Dr. Julia Gonzalez gap [Moles/Vol]19.9 mmol/LNormalThe [facility] Comment on above:Performed By: #### CMP #### [facility] [address] [place] [address] Dr. Julia VelasquezAST [Catalytic activity/Vol]82 U/LCritically delo86-74Lzh [facility] HospitalComment on above:Performed By: #### CMP #### [facility] [address] [place] [address] Dr. Julia VelasquezBilirubin [Mass/Vol]3.0 mg/dLCritically high0.2-1.0The [facility] HospitalComment on above:Performed By: #### CMP #### [facility] [address] [place] [address] Dr. Julia VelasquezCalcium [Mass/Vol]8.2 mg/dLCritically low8.5-10.1The [facility] HospitalComment on above:Performed By: #### CMP #### [facility] [address] [address] [address] Julia VelasquezChloride [Moles/Vol]112 mmol/LCritically npky00-138Iri [facility] HospitalComment on above:Performed By: #### CMP #### [facility] [address] [address] [address] Julia VelasquezCO2 [Moles/Vol]18.7 mmol/LCritically low21.0-32.0The [facility] HospitalComment on above:Performed By: #### CMP #### [facility] [address] [place] [address] Dr. Julai VelasquezCreatinine [Mass/Vol]1.75 mg/dLCritically high0.55-1.02The [facility] HospitalComment on above:Performed By: #### CMP #### [facility] [address] [place] [address] Dr. Julia MarquezGFR-AF ESDEKCHI39 mL/min/1.67g5Mvefgyukcg low>=60The [facility] HospitalComment on above:Performed By: #### CMP #### [facility] [address] [place] [address] Dr. Julia MarquezGFR-NON AF TLWQDMTJ37 mL/min/1.81w2Kqrifbgctr low>=60The [facility] HospitalComment on above:Performed By: #### CMP #### [facility] [address] [place] [address] Dr. Julia VelasquezGlobulin (S) [Mass/Vol]3.6 g/dLNormalThe [facility] HospitalComment on above:Performed By: #### CMP #### [facility] [address] [place] [address] Dr. Julia VelasquezGlucose [Mass/Vol]95 mg/zMKpwwfu24-653Vpd [facility] Comment on above:Performed By: #### CMP #### [facility] [address] [place] [address] Dr. Julia VelasquezPotassium [Moles/Vol]4.6 mmol/LNormal3.5-5.1The [facility] Comment on above:Performed By: #### CMP #### [facility] [address] [address] [address] Julia VelasquezProtein [Mass/Vol]5.5 g/dLCritically low6.4-8.2The [facility] HospitalComment on above:Performed By: #### CMP #### [facility] [address] [address] [address] Julia VelasquezSodium [Moles/Vol]146 mmol/LCritically plfn348-896Bds [facility] HospitalComment on above:Performed By: #### CMP #### [facility] [address] [address] [address] Julia VelasquezUrea nitrogen [Mass/Vol]58.0 mg/dLCritically high7.0-18.0The [facility] HospitalComment on above:Performed By: #### CMP #### [facility] [address] [address] [address] Julia Belcher nitrogen/Creatinine [Mass ratio]33.1 mg/mgNormalThe [facility] HospitalComment on above:Performed By: #### CMP #### [facility] [address] [place] [address] Dr. Julia VelasquezXR CHEST 2 Von [id number] CHEST 2 VEXAMINATION: XR ABD FLAT_UP, XR CHEST 2 V [...] Electronically authenticated by: BUCKY CRAIG Date: 2022-12-11 11:52NormalThe [facility] MANUAL DIFFon [id number] LYMPH #0.18 103/ulNormal The [facility] HospitalComment on above:Performed By: #### DUARTE #### [facility] [address] [place] [address] Dr. Julia VelasquezATYPICAL LYMPH %1 %NormalSelect Medical [facility], [facility] HospitalComment on above: Performed By: #### DUARTE #### [facility] [address] [place] [address] Dr. Julia Reynoso #0.0 103/ulNormal0.0-0.3The [facility] HospitalComment on above:Performed By: #### DUARTE #### [facility] [address] [place] [address] Dr. Julia Reynoso %0 %Normal0-5The [facility] HospitalComment on above:Performed By: #### DUARTE #### [facility] [address] [place] [address] Dr. Julia Noriega #0.00 103/ulNormal0.00-0.10The [facility] HospitalComment on above:Performed By: #### DUARTE #### [facility] [address] [place] [address] Dr. Julia Noriega %0.0 %Critically low0.2-2.0The [facility] HospitalComment on above:Performed By: #### CBCJACKLYN #### [facility] [address] [place] [address] Dr. Julia De La Cruz #NormalMercy Health Fairfield HospitalComment on above:Performed By: #### CBCJACKLYN #### [facility] [address] [place] [address] Dr. Julia De La Cruz %NormalMercy Health Fairfield HospitalComment on above:Performed By: #### DUARTE #### [facility] [address] [place] [address] Dr. Julia VelasquezCORRECTED WBCNormal4.0-11.0[facility] HospitalComment on above: Performed By: #### CBCMAN #### [facility] [address] [address] [address] Julia Cano #0.00 103/ulNormal0.00-0.70The [facility] HospitalComment on above:Performed By: #### CBCMAN #### [facility] [address] [address] [address] Julia Cano%0.0 %Critically low0.9-7.0The [facility] HospitalComment on above:Performed By: #### CBCMAN #### [facility] [address] [address] [address] Julia LloydT31.8 %Critically low36.0-48.0The [facility] HospitalComment on above:Performed By: #### CBCJACKLYN #### [facility] [address] [address] [address] Julia VelasquezHGB10.4 g/dlCritically low12.0-16.0The [facility] HospitalComment on above:Performed By: #### CBCJACKLYN #### [facility] [address] [place] [address] Dr. Julia Mccormick #0.35 103/ulCritically low1.20-3.80The [facility] Comment on above:Performed By: #### CBCJACKLYN #### [facility] [address] [address] [address] Julia Mccormick%2.0 %Critically low20.5-60.0The [facility] HospitalComment on above:Performed By: #### CBCMAN #### [facility] [address] [address] [address] Julia ToussaintH29.3 ctXzkhpz20.7-34.0The [facility] HospitalComment on above: Performed By: #### CBCMAN #### [facility] [address] [address] [address] Julia ToussaintHC32.7 g/msZemfwy51.9-35.2The [place] HospitalComment on above:Performed By: #### DUARTE #### [facility] [address] [address] [address] Julia ToussaintV89.6 cGLekees59.0-99.0The [facility] HospitalComment on above: Performed By: #### DUARTE #### [facility] [address] [address] [address] Julia BanerjeeOCYTE #NormalThe [place] HospitalComment on above: Performed By: #### DUARTE #### [facility] [address] [address] [address] Julia BanerjeeOCYTE %NormalThe [facility] HospitalComment on above: Performed By: #### DUARTE #### [facility] [address] [place] [address] Dr. Julia Brian#0.88 103/ulCritically high0.30-0.80The [facility] on above:Performed By: #### DUARTE #### [facility] [address] [place] [address] Dr. Julia Brian%5.0 %Normal1.7-12.0The [facility] Hospitalment on above: Performed By: #### DUARTE #### [facility] [address] [place] [address] Dr. Julia VelasquezMPV10.6 fLNormal9.5-13.5The [facility] HospitalComment on above: Performed By: #### DUARTE #### [facility] [address] [place] [address] Dr. Julia Winter #NormalMercy Health Fairfield HospitalComment on above:Performed By: #### DUARTE #### [facility] [address] [place] [address] Dr. Julia BlakeOCYTE %NormalThe [facility] HospitalComment on above:Performed By: #### DUARTE #### [facility] [address] [place] [address] Dr. Julia VelasquezNRBCNormalThe [facility] HospitalComment on above:Performed By: #### DUARTE #### [facility] [address] [address] Dr. Julia VelasquezPLT231 103/meYmgofz925-053Byc [facility] HospitalComment on above: Performed By: #### DUARTE #### [facility] [address] [address] [address] Julia VelasquezRBC3.55 106/ulCritically low4.20-5.40The [facility] HospitalComment on above:Performed By: #### DUARTE #### [facility] [address] [address] [address] Julia VelasquezRDW15.1 %Critically high11.0-15.0The [facility] HospitalComment on above:Performed By: #### DUARTE #### [facility] [address] [place] [address] Dr. Julia Navarro #16.19 103/ulCritically high1.40-6.50The [facility] Comment on above:Performed By: #### DUARTE #### [facility] [address] [place] [address] Dr. Julia Navarro %92.0 %Critically high43.0-75.0The [facility] HospitalComment on above:Performed By: #### DUARTE #### [facility] [address] [place] [address] Dr. Julia VelasquezWBC17.6 103/ulCritically high4.0-11.0The [facility] HospitalComment on above:Performed By: #### DUARTE #### [facility] [address] [place] [address] Dr. Julia VelasquezFERRITINon 23-43-6080Yczdalag [Mass/Vol]450.0 ng/mLCritically high8.0-252.0The [facility] HospitalComment on above:Performed By: #### CMP #### [facility] [address] [place] [address] Dr. Julia Workman AND TIBCon 12-10-2022% SATURATION5.6 %NormalThe [facility] HospitalComment on above:Performed By: #### CMP #### [facility] [address] [address] [address] Julia Workman [Mass/Vol]11.0 ug/dLCritically low50.0-170.0The [facility] HospitalComment on above:Performed By: #### CMP #### [facility] [address] [address] [address] Julia VelasquezTIBC NSEJRF372.0 ug/dLCritically alt706.0-450.0The [facility] HospitalComment on above:Performed By: #### CMP #### [facility] [address] [place] [address] Dr. Julia VelasquezPROF 14(COMP METB)on [id number] [Mass/Vol]2.0 g/dL Critically low3.4-5.0The [facility] HospitalComment on above:Performed By: #### CMP #### [facility] [address] [place] [address] Dr. Julia VelasquezAlbumin/Globulin [Mass ratio]0.4 {ratio}NormalThe [facility] HospitalComment on above:Performed By: #### CMP #### [facility] [address] [place] [address] Dr. Julia Hernandez [Catalytic activity/Vol]87 U/DJryaja55-100Upm [facility] HospitalComment on above:Performed By: #### CMP #### [facility] [address] [place] [address] Dr. Julia Morrison [Catalytic activity/Vol]32 U/LZrtfvv86-22Bwd [facility] HospitalComment on above:Performed By: #### CMP #### [facility] [address] [place] [address] Dr. Julia Gonzalez gap [Moles/Vol]16.2 mmol/LNormalThe [facility] on above:Performed By: #### CMP #### [facility] [address] [place] [address] Dr. Julia Garcia [Catalytic activity/Vol]50 U/LCritically wbre66-76Vwb [facility] HospitalComment on above:Performed By: #### CMP #### [facility] [address] [address] [address] Julia VelasquezBilirubin [Mass/Vol]1.7 mg/dLCritically high0.2-1.0The [facility] HospitalComment on above:Performed By: #### CMP #### [facility] [address] [address] [address] Julia VelasquezCalcium [Mass/Vol]8.6 mg/dLNormal8.5-10.1The [facility] Comment on above:Performed By: #### CMP #### [facility] [address] [address] [address] Julia VelasquezChloride [Moles/Vol]107 mmol/OFyniph54-955Ual [facility] Comment on above:Performed By: #### CMP #### [facility] [address] [address] [address] Julia VelasquezCO2 [Moles/Vol]22.1 mmol/YYtooee76.0-32.0The [facility] Comment on above:Performed By: #### CMP #### [facility] [address] [address] [address] Julia VelasquezCreatinine [Mass/Vol]2.38 mg/dLCritically high0.55-1.02The [facility] HospitalComment on above:Performed By: #### CMP #### [facility] [address] [address] [address] Julia MarquezGFR-AF PUYYHHMK98 mL/min/1.58w8Tqxgmhwyxh low>=60The [facility] HospitalComment on above:Performed By: #### CMP #### [facility] [address] [address] [address] Julia MarquezGFR-NON AF GIERXHTX37 mL/min/1.84q5Xxatrgvckp low>=60The [facility] HospitalComment on above:Performed By: #### CMP #### [facility] [address] [address] [address] Julia VelasquezGlobulin (S) [Mass/Vol]4.7 g/dLNormalThe [facility] HospitalComment on above:Performed By: #### CMP #### [facility] [address] [address] [address] Julia VelasquezGlucose [Mass/Vol]116 mg/dLCritically dsne09-151Ubz [facility] HospitalComment on above:Performed By: #### CMP #### [facility] [address] [address] [address] Julia VelasquezPotassium [Moles/Vol]3.3 mmol/LCritically low3.5-5.1The [facility] HospitalComment on above:Performed By: #### CMP #### [facility] [address] [address] [address] Julia VelasquezProtein [Mass/Vol]6.7 g/dLNormal6.4-8.2The [facility] Comment on above:Performed By: #### CMP #### [facility] [address] [address] [address] Julia VelasquezSodium [Moles/Vol]142 mmol/THyqxrz246-162Yqx [facility] Comment on above:Performed By: #### CMP #### [facility] [address] [address] [address] Julia VelasquezUrea nitrogen [Mass/Vol]57.0 mg/dLCritically high7.0-18.0The [facility] HospitalComment on above:Performed By: #### CMP #### [facility] [address] [address] [address] Julia VelasquezUrea nitrogen/Creatinine [Mass ratio]23.9 mg/mgNormalThe [facility] HospitalComment on above:Performed By: #### CMP #### [facility] [address] [address] [address] Julia VelasquezAMYLASEon 24-85-7415Ilpsysp [Catalytic activity/Vol]18 U/L Critically zta25-307Aev [facility] HospitalComment on above:Performed By: #### LIVER, BMP, LIPA, EDSON #### [facility] [address] [address] [address] Julia VelasquezCBC W MANUAL DIFFon 48-77-1999TOEEBTWN LYMPH #NormalThe [facility] HospitalComment on above:Performed By: #### CMP #### [facility] [address] [address] [address] Julia VelasquezATYPICAL LYMPH %NormalMercy Health Fair[facility] HospitalComment on above: Performed By: #### CMP #### [facility] [address] [address] [address] Julia Reynoso #0.8 103/ulCritically high0.0-0.3The [facility] on above:Performed By: #### CMP #### [facility] [address] [address] [address] Julia Reynoso %4 %Normal0-5The [facility] HospitalComment on above:Performed By: #### CMP #### [facility] [address] [place] [address] Dr. Julia Noriega #0.00 103/ulNormal0.00-0.10The [facility] HospitalComment on above:Performed By: #### CMP #### [facility] [address] [place] [address] Dr. Julia Noriega %0.0 %Critically low0.2-2.0The [facility] HospitalComment on above:Performed By: #### CMP #### [facility] [address] [place] [address] Dr. Julia De La Cruz #NormalMercy Health Fairfield HospitalComment on above:Performed By: #### CMP #### [facility] [address] [place] [address] Dr. Julia De La Cruz %NormalMercy Health Fairfield HospitalComment on above:Performed By: #### CMP #### [facility] [address] [address] [address] Julia VelasquezCORRECTED WBCNormal4.0-11.0The [facility] HospitalComment on above: Performed By: #### CMP #### [facility] [address] [place] [address] Dr. Julia Cano #0.00 103/ulNormal0.00-0.70The [facility] HospitalComment on above:Performed By: #### CMP #### [facility] [address] [address] [address] Julia Cano%0.0 %Critically low0.9-7.0The [facility] HospitalComment on above:Performed By: #### CMP #### [facility] [address] [address] [address] Julia LloydT27.2 %Critically low36.0-48.0The [facility] HospitalComment on above:Performed By: #### CMP #### [facility] [address] [address] [address] Julia VelasquezB8.9 g/dlCritically low12.0-16.0The [facility] on above:Performed By: #### CMP #### [facility] [address] [place] [address] Dr. Julia Mccormick #0.99 103/ulCritically low1.20-3.80The [facility] on above:Performed By: #### CMP #### [facility] [address] [place] [address] Dr. Julia Mccormick%5.0 %Critically low20.5-60.0The [facility] on above:Performed By: #### CMP #### [facility] [address] [place] [address] Dr. Julia ToussaintH29.3 prRvvlyt74.7-34.0The [facility] HospitalComment on above: Performed By: #### CMP #### [facility] [address] [place] [address] Dr. Julia ToussaintHC32.7 g/ziKbjiof85.9-35.2The [facility] HospitalComment on above:Performed By: #### CMP #### [facility] [address] [place] [address] Dr. Julia ToussaintV89.5 lPSlfgoy91.0-99.0The [facility]ment on above: Performed By: #### CMP #### [facility] [address] [address] [address] Julia LealELOCYTE #NormalSelect Medical [facility], [facility] HospitalComment on above: Performed By: #### CMP #### [facility] [address] [address] [address] Julia GramajoAMYELOCYTE %NormalMercy Health Fairfield HospitalComment on above: Performed By: #### CMP #### [facility] [address] [address] [address] Julia Brian#0.59 103/ulNormal0.30-0.80The [facility] HospitalComment on above:Performed By: #### CMP #### [facility] [address] [place] [address] Dr. Julia Brian%3.0 %Normal1.7-12.0The [facility] HospitalComment on above: Performed By: #### CMP #### [facility] [address] [place] [address] Dr. Julia VelasquezMPV10.9 fLNormal9.5-13.5The [facility] HospitalComment on above: Performed By: #### CMP #### [facility] [address] [place] [address] Dr. Julia BlakeOCYTE #NormalMercy Health Fairfield HospitalComformerly [facility] on above:Performed By: #### CMP #### [facility] [address] [place] [address] Dr. Julia BlakeOCYTE %NormalMercy Health Fairfield HospitalComformerly [facility] on above:Performed By: #### CMP #### [facility] [address] [place] [address] Dr. Julia VelasquezNRBCNormalThe [facility] HospitalComment on above:Performed By: #### CMP #### [facility] [address] [place] [address] Dr. Julia VelasquezPLT268 103/vqQusfrr719-284Ylv [facility] HospitalComment on above: Performed By: #### CMP #### [facility] [address] [address] [address] Julia VelasquezRBC3.04 106/ulCritically low4.20-5.40The [facility] HospitalComment on above:Performed By: #### CMP #### [facility] [address] [place], [place] [address] Dr. Julia VelasquezRDW15.0 %Jnnnms80.0-15.0The [facility] HospitalComment on above: Performed By: #### CMP #### [facility] [address] [place], [place] [address] Dr. Julia Navarro #17.42 103/ulCritically high1.40-6.50The [facility] Comment on above:Performed By: #### CMP #### [facility] [address] [address] [address] Julia Navarro %88.0 %Critically high43.0-75.0The [facility] HospitalComment on above:Performed By: #### CMP #### [facility] [address] [place], [place] [address] Dr. Julia VelasquezWBC19.8 103/ulCritically high4.0-11.0The [facility] HospitalComment on above:Performed By: #### CMP #### [facility] [address] [place], [place] [address] Dr. Julia Allen ABD/PELVIS WO CONon [id number] ABD/PELVIS WO CONEXAM: CT scan of the abdomen and pelvis [...] Electronically authenticated by: RAKESH MANNING Date: 2022-12-09 19:43NoSouthern [place] Medical CenterCT FACIAL BONES WO CONon [id number] FACIAL BONES WO CON EXAMINATION: CT FACIAL [...] Electronically authenticated by: KELVIN MCLAUGHLIN Date: 2022-12-09 20:18NoSouthern [place] Medical CenterCovid-19 PCR (CVDTBH)on [id number]-CoV-2 (COVID-19) RNA MARIO+probe Ql (Unsp spec)Not detectedNormalNOT DETECTEDThe [facility] Comment on above:Result Comment: When diagnostic testing is negative, the [...] for this test is supported by the Errand Runner of Health and Human Service's declaration that circumstances exist to justify the emergency use of in vitro diagnostics for the detection and/or diagnosis of the virus that causes COVID-19. This EUA will remain in effect for the duration of the COVID-19 declaration justifying emergency of IVDs, unless it is terminated or revoked by the FDA (after which the test may no longer be used).Performed By: #### LIVER, BMP, LIPA, EDSON #### [facility] [address] [place] [address] Dr. Julia VelasquezLIPASEon [id number] [Catalytic activity/Vol]86.0 U/LNormal 73.0-393.0The [facility] Hospitalment on above:Performed By: #### LIVER, BMP, LIPA, EDSON #### [facility] [address] [place] [address] Dr. Julia Moore PROFILEon [id number] [Mass/Vol]2.4 g/dLCritically low3.4-5.0The [facility] HospitalComment on above:Performed By: #### LIVER, BMP, LIPA, EDSON #### [facility] [address] [place] [address] Dr. Julia VelasquezAlbumin/Globulin [Mass ratio]0.5 {ratio}NormalThe [facility] HospitalComment on above:Performed By: #### LIVER, BMP, LIPA, DESON #### [facility] [address] [place] [address] Dr. Julia Hernandez [Catalytic activity/Vol]104 U/IHofcuz98-653Gma [facility] HospitalComment on above:Performed By: #### LIVER, BMP, LIPA, EDSON #### [facility] [address] [place] [address] Dr. Julia Morrison [Catalytic activity/Vol]35 U/XYqlmey51-71Zsm [facility] Hospitalment on above:Performed By: #### LIVER, BMP, LIPA, EDSON #### [facility] [address] [place] [address] Dr. Julia Garcia [Catalytic activity/Vol]59 U/LCritically vkrj15-19Eih [facility] HospitalComment on above:Performed By: #### LIVER, BMP, LIPA, EDSON #### [facility] [address] [place] [address] Dr. Julia Lewis, CONJUGATED1.0 mg/dLCritically high0.0-0.2The [facility] HospitalComment on above:Performed By: #### LIVER, BMP, LIPA, EDSON #### [facility] [address] [address] [address] Julia VelasquezBilirubin [Mass/Vol]1.9 mg/dLCritically high0.2-1.0The [facility] HospitalComment on above:Performed By: #### LIVER, BMP, LIPA, EDSON #### [facility] [address] [place] [address] Dr. Julia VelasquezGlobulin (S) [Mass/Vol]5.0 g/dLNormalThe [facility] HospitalComment on above:Performed By: #### LIVER, BMP, LIPA, EDSON #### [facility] [address] [place] [address] Dr. Julia VealsquezProtein [Mass/Vol]7.4 g/dLNormal6.4-8.2[facility] Comment on above:Performed By: #### LIVER, BMP, LIPA, EDSON #### [facility] [address] [place] [address] Dr. Julia VelasquezOCC BLD IMMUNOASSAYon [id number] BLOODNegativeNormal NEGATIVEThe [facility] HospitalComment on above:Performed By: #### LIVER, BMP, LIPA, EDSON #### [facility] [address] [place] [address] Dr. Julia VelasquezPROF CHEM 8 (BAS METB)on [id number] gap [Moles/Vol]18.8 mmol/LNormalThe [facility] HospitalComment on above:Performed By: #### LIVER, BMP, LIPA, EDSON #### [facility] [address] [place] [address] Dr. Julia VelasquezCalcium [Mass/Vol]9.2 mg/dLNormal8.5-10.1The [facility] Comment on above:Performed By: #### LIVER, BMP, LIPA, EDSON #### [facility] [address] [place] [address] Dr. Julia VelasquezChloride [Moles/Vol]100 mmol/KIvyurb89-169AvjMercy Health [facility] Hospital Comment on above:Performed By: #### LIVER, BMP, LIPA, EDSON #### [facility] [address] [place] [address] Dr. Julia VelasquezCO2 [Moles/Vol]24.3 mmol/LBshyoj65.0-32.0The [facility] Comment on above:Performed By: #### LIVER, BMP, LIPA, EDSON #### [facility] [address] [place] [address] Dr. Julia VelasquezCreatinine [Mass/Vol]2.98 mg/dLCritically high0.55-1.02The [facility] HospitalComment on above:Performed By: #### LIVER, BMP, LIPA, EDSON #### [facility] [address] [place] [address] Dr. Dumont ChangEGFR-AF OLIGBEOF23 mL/min/1.90p1Kfagwrpbtt low>=60The [facility] HospitalComment on above:Performed By: #### LIVER, BMP, LIPA, EDSON #### [facility] [address] [place] [address] Dr. Julia MarquezGFR-NON AF XUZNPOYD86 mL/min/1.09n1Adljrrhzqr low>=60The [facility] HospitalComment on above:Performed By: #### LIVER, BMP, LIPA, EDSON #### [facility] [address] [place] [address] Dr. Julia VelasquezGlucose [Mass/Vol]116 mg/dLCritically hubf60-691Ikp [facility] HospitalComment on above:Performed By: #### LIVER, BMP, LIPA, EDSON #### [facility] [address] [place] [address] Dr. Julia VelasquezPotassium [Moles/Vol]4.1 mmol/LNormal3.5-5.1The [facility] Comment on above:Performed By: #### LIVER, BMP, LIPA, EDSON #### [facility] [address] [place] [address] Dr. Julia VelasquezSodium [Moles/Vol]139 mmol/UHiekaf896-513Rlk [facility] Comment on above:Performed By: #### LIVER, BMP, LIPA, EDSON #### [facility] [address] [place] [address] Dr. Yilan ChangUrea nitrogen [Mass/Vol]57.0 mg/dLCritically high7.0-18.0The [facility] HospitalComment on above:Performed By: #### LIVER, BMP, LIPA, EDSON #### [facility] [address] [place] [address] Dr. Julia Belcher nitrogen/Creatinine [Mass ratio]19.1 mg/mgNormalThe [facility] HospitalComment on above:Performed By: #### LIVER, BMP, LIPA, EDSON #### [facility] [address] [place] [address] Dr. Julia Nam AUTO DIFFon [id number] #0.0 103/ulNormal0.0-0.1The [facility] HospitalComment on above:Performed By: #### LIVER, BMP, LIPA, EDSON #### [facility] [address] [place] [address] Dr. Julia VelasquezBasophils/100 WBC (Bld)0.6 %Normal0.2-2.0The [facility] Comment on above:Performed By: #### LIVER, BMP, LIPA, EDSON #### [facility] [address] [place] [address] Dr. Julia Isidro #0.3 103/ulNormal0.0-0.7The [facility] HospitalComment on above: Performed By: #### LIVER, BMP, LIPA, EDSON #### [facility] [address] [place] [address] Dr. Julia Marquezosinophils/100 WBC (Bld)4.9 %Normal0.9-7.0The [facility] Comment on above:Performed By: #### LIVER, BMP, LIPA, EDSON #### [facility] [address] [place] [address] Dr. Julia Marquezrythrocyte distribution width (RBC) [Ratio]13.2 %Txxyez84.0-15.0 The [facility] HospitalComment on above:Performed By: #### LIVER, BMP, LIPA, EDSON #### [facility] [address] [place] [address] Dr. Yilan ChangHematocrit (Bld) [Volume fraction]40.9 %Ywowsp72.0-48.0The [facility] HospitalComment on above:Performed By: #### LIVER, BMP, LIPA, EDSON #### [facility] [address] [place] [address] Dr. Julia VelasquezHemoglobin (Bld) [Mass/Vol]13.0 g/hGTowwxp39.0-16.0The [facility] HospitalComment on above:Performed By: #### LIVER, BMP, LIPA, EDSON #### [facility] [address] [place] [address] Dr. Julia Donald #0.05 10e3/ulCritically high0.00-0.03The [facility] Comment on above:Performed By: #### LIVER, BMP, LIPA, EDSON #### [facility] [address] [place] [address] Dr. Julia Donald %1.0 %Critically high0.0-0.5The [facility] HospitalComment on above:Performed By: #### LIVER, BMP, LIPA, EDSON #### [facility] [address] [place] [address] Dr. Julia Hamm #1.3 103/ulNormal1.2-3.8The [facility] HospitalComment on above:Performed By: #### LIVER, BMP, LIPA, EDSON #### [facility] [address] [place] [address] Dr. Julia Ontiveroshocytes/100 WBC (Bld)26.1 %Dbvpqd68.5-60.0The [facility] HospitalComment on above:Performed By: #### LIVER, BMP, LIPA, EDSON #### [facility] [address] [place] [address] Dr. Julia DickinsonUAL DIFF REQNONormalThe [facility] HospitalComment on above: Performed By: #### LIVER, BMP, LIPA, EDSON #### [facility] [address] [place] [address] Dr. Julia Gómez (RBC) [Entitic mass]29.6 efUwclzc07.7-34.0The [facility] HospitalComment on above:Performed By: #### LIVER, BMP, LIPA, EDSON #### [facility] [address] [place] [address] Dr. Julia Toussaint (RBC) [Mass/Vol]31.8 g/lWQfrbff21.9-35.2The [facility] [place] HospitalComment on above:Performed By: #### LIVER, BMP, LIPA, EDSON #### [facility] [address] [place] [address] Dr. Julia Toussaint (RBC) [Entitic vol]93.2 cNTjwbeg38.0-99.0The [facility] HospitalComment on above:Performed By: #### LIVER, BMP, LIPA, EDSON #### [facility] [address] [place] [address] Dr. Julia Giles #0.4 103/ulNormal0.3-0.8The [facility] HospitalComment on above:Performed By: #### LIVER, BMP, LIPA, EDSON #### [facility] [address] [place] [address] Dr. Julia Lopezocytes/100 WBC (Bld)7.7 %Normal1.7-12.0The [facility] [facility] Comment on above:Performed By: #### LIVER, BMP, LIPA, EDSON #### [facility] [address] [place] [address] Dr. Julia Smith #3.0 103/ulNormal1.4-6.5The [facility] HospitalComment on above:Performed By: #### LIVER, BMP, LIPA, EDSON #### [facility] [address] [place] [address] Dr. Julia Pinedautrophils/100 WBC (Bld)59.7 %Epfark53.0-75.0The [facility] HospitalComment on above:Performed By: #### LIVER, BMP, LIPA, EDSON #### [facility] [address] [place] [address] Dr. Julia Mendezlet mean volume (Bld) [Entitic vol]10.6 fLNormal9.5-13.5The [facility] HospitalComment on above:Performed By: #### LIVER, BMP, LIPA, EDSON #### [facility] [address] [place] [address] Dr. Julia VelasquezPLT248 103/eyJheijz010-351Own [facility] HospitalComment on above: Performed By: #### LIVER, BMP, LIPA, EDSON #### [facility] [address] [place] [address] Dr. Julia VelasquezRBC4.39 106/ulNormal4.20-5.40The [facility] HospitalComment on above:Performed By: #### LIVER, BMP, LIPA, EDSON #### [facility] [address] [place] [address] Dr. Julia VelasquezWBC5.1 103/ulNormal4.0-11.0The [facility] HospitalComment on above: Performed By: #### LIVER, BMP, LIPA, EDSON #### [facility] [address] [place] [address] Dr. Julia VelasquezLIPID PROFILEon [id number]-HDL RATIO NORMSHolzer Medical Center – JacksonComment on above:Result Comment: 3.3 - 4.4 LOW RISK 4.4 - 7.1 AVERAGE RISK 7.1 - 11.0 MODERATE RISK >11.0 HIGH RISKPerformed By: #### LIVER, BMP, LIPA, EDSON #### [facility] [address] [place] [address] Dr. Julia VelasquezCholesterol [Mass/Vol]177 mg/dLNormal<=200[facility] Comment on above:Performed By: #### LIVER, BMP, LIPA, EDSON #### [facility] [address] [place] [address] Dr. Julia VelasquezCholesterol in HDL [Mass/Vol]56 mg/uYJlmtss17-31VwxMercy Health [facility]field HospitalComment on above:Performed By: #### LIVER, BMP, LIPA, EDSON #### [facility] [address] [place] [address] Dr. Julia Rossesterol in LDL [Mass/Vol]99.4 mg/dLClinton Memorial HospitalComment on above:Performed By: #### LIVER, BMP, LIPA, EDSON #### [facility] [address] [address] [address] Julia VelasquezCholesterady.total/Cholesterol in HDL [Mass ratio]3.2 {ratio} NormalThe [facility] HospitalComment on above:Performed By: #### LIVER, BMP, LIPA, EDSON #### [facility] [address] [address] [address] Julia Farr NORMAL> or = 60 mg/dl - LOW CARDIOVASCULAR RISK <40 mg/dl - HIGH CARDIOVASCULAR RISKClinton Memorial HospitalComment on above:Performed By: #### LIVER, BMP, LIPA, EDSON #### [facility] [address] [address] [address] Julia VelasquezLDL CALC NORMALSEE BELOWNoSouthern Ohio Medical CenterComment on above:Result Comment: <100 mg/dl OPTIMAL 100 - 129 mg/dl NEAR OR ABOVE OPTIMAL 130 - 159 mg/dl BORDERLINE HIGH 160 - 189 mg/dl HIGH >190 mg/dl VERY HIGH Performed By: #### LIVER, BMP, LIPA, EDSON #### [facility] [address] [address] [address] Julia VelasquezTriglyceride [Mass/Vol]108 mg/dLNormal<=150[facility] Comment on above:Performed By: #### LIVER, BMP, LIPA, EDSON #### [facility] [address] [address] [address] Julia VelasquezVLDL CALC21.6 mg/dLClinton Memorial HospitalComment on above: Performed By: #### LIVER, BMP, LIPA, EDSON #### [facility] [address] [address] [address] Julia VelasquezPROF CHEM 8 (BAS METB)on [id number] gap [Moles/Vol]11.5 mmol/LNormalMercy Health Fairfield HospitalComment on above:Performed By: #### LIVER, BMP, LIPA, EDSON #### [facility] [address] [place] [address] Dr. Julia VelasquezCalcium [Mass/Vol]9.3 mg/dLNormal8.5-10.1[facility] Comment on above:Performed By: #### LIVER, BMP, LIPA, EDSON #### [facility] [address] [place] [address] Dr. Julia VelasquezChloride [Moles/Vol]104 mmol/GVmnysf16-072ZijMercy Health [facility] Hospital Comment on above:Performed By: #### LIVER, BMP, LIPA, EDSON #### [facility] [address] [place] [address] Dr. Julia VelasquezCO2 [Moles/Vol]30.5 mmol/BLamhyu10.0-32.0[facility] Comment on above:Performed By: #### LIVER, BMP, LIPA, EDSON #### [facility] [address] [place] [address] Dr. Julia VelasquezCreatinine [Mass/Vol]1.09 mg/dLCritically high0.55-1.02The [facility] HospitalComment on above:Performed By: #### LIVER, BMP, LIPA, EDSON #### [facility] [address] [place] [address] Dr. Julia MarquezGFR-AF FQVYBBTT41 mL/min/1.00d2Bopxaekjoo low>=60The [facility] HospitalComment on above:Performed By: #### LIVER, BMP, LIPA, EDSON #### [facility] [address] [place] [address] Dr. Julia MarquezGFR-NON AF DXASGDXU05 mL/min/1.52x2Wqqqailpad low>=60The [facility] HospitalComment on above:Performed By: #### LIVER, BMP, LIPA, EDSON #### [facility] [address] [place] [address] Dr. Julia VelasquezGlucose [Mass/Vol]89 mg/yIOiaeyw57-449HcrMercy Health [facility] Hospital Comment on above:Performed By: #### LIVER, BMP, LIPA, EDSON #### [facility] [address] [address] [address] Julia VelasquezPotassium [Moles/Vol]4.0 mmol/LNormal3.5-5.1[facility] Comment on above:Performed By: #### LIVER, BMP, LIPA, EDSON #### [facility] [address] [address] [address] Julia VelasquezSodium [Moles/Vol]142 mmol/AEepenz982-366Jxy [facility] Comment on above:Performed By: #### LIVER, BMP, LIPA, EDSON #### [facility] [address] [address] [address] Julia VelasquezUrea nitrogen [Mass/Vol]16.0 mg/dLNormal7.0-18.0The [facility] HospitalComment on above:Performed By: #### LIVER, BMP, LIPA, EDSON #### [facility] [address] [place] [address] Dr. Julia VelasquezUrea nitrogen/Creatinine [Mass ratio]14.7 mg/mgNoSouthern Ohio Medical CenterComment on above:Performed By: #### LIVER, BMP, LIPA, EDSON #### [facility] [address] [place] [address] Dr. Julia VelasquezXR DEXA BONE DENSITYon [id number] DEXA BONE DENSITYEXAMINATION: XR DEXA BONE DENSITY, 08/25/2022 11:08 AM [...] Electronically authenticated by: BUCKY CRAIG Date: 2022-08-25 14:10[facility] Vital Signs Date TimeVital SignValuePerforming CtcjktlxzDmewclkn47-17-3486 11:27-0400Body .1 cmBenjamin Ball DO Work Phone: [phone] [place], [place] 1550110-13-2025 11:27-0400 Body mass index (BMI) [Ratio]23.5 kg/b3Heepyxii Ball DO Work Phone: 1(043)[address] [place], [place] 5031310-13-2025 11:27-0400 Body ruskax33.01 kgBenjamin Ball DO Work Phone: 1(211)[address] [place], [place] 5031310-13-2025 11:27-0400 Diastolic blood kiqeywvs57 mm[Hg]Kyle Ball DO Work Phone: 1(135)[address] [place], [place] 5031310-13-2025 11:27-0400 Heart rate62 /minBenjamin Ball DO Work Phone: 1(650)[address] [place], [place] 5031310-13-2025 11:27-0400 Respiratory rate12 /minBenjamin Ball DO Work Phone: 1(706)[address] [place], [place] 5031310-13-2025 11:27-0400 Systolic blood cfmmuocu498 mm[Hg]Kyle Ball DO Work Phone: 1(203)[address] [place], [place] 5031309-15-2025 14:05-0400 Body mass index (BMI) [Ratio]26.21 kg/s6NviihjjShivam Ponce MD Work Phone: [facility] CenterYrjurfskln23-54-7225 14:05-0400Body vaxxoh30.59 kgShivam Ponce MD Work Phone: [facility] CenterCinwabepbq99-91-2056 14:05-0400Diastolic blood mm[Hg]Shivam Ponce MD Work Phone: [facility] CenterWutkyocqwk29-95-8352 14:05-0400Respiratory rate18 /minShivam Ponce MD Work Phone: [facility] CenterLputfacfrr19-10-4895 14:05-0984ZfX4% (BldA) [Mass fraction]98 %Shivam Ponce MD Work Phone: noMS Tilyuvjral09-10-4690 14:05-0400Systolic blood mm[Hg]Shivam Ponce MD Work Phone: [facility] CenterXjpclolalh46-09-9378 11:36-0400Body rfktek644.4 cmAamir Xavier DO Work Phone: [facility] CenterAcwkghkake69-33-9122 11:36-0400Body mass index (BMI) [Ratio]25.36 kg/e0FujevhtAamir Xavier DO Work Phone: [facility] CenterEuckajqspr87-90-2220 11:36-0400Body dmpisg17.41 kgAamir Xavier DO Work Phone: [facility] CenterEehjjqzsgr38-12-1928 11:36-0400Diastolic blood flmgmnpa95 mm[Hg]Aamir Xavier DO Work Phone: [facility] CenterYpcdlqysgo67-32-3638 11:36-0400Systolic blood omoyddwh832 mm[Hg]Aamir Xavier DO Work Phone: [facility] CenterJctircdeab46-74-1913 12:20-0400Body mass index (BMI) [Ratio]25.92 kg/m2Mel Hayes MD Work Phone: noP[facility] HospitalGpmyiplpzs48-60-3159 12:20-0400Body eetgqf50.32 kgMel Hayes MD Work Phone: noP[facility] HospitalKvyrsnfpfc80-42-6148 14:15-0400Body mass index (BMI) [Ratio]23.76 kg/q7PvherjpShivam Ponce MD Work Phone: [facility] CenterFtsxpwkgtn68-82-7046 14:15-0400Body kygtds92.88 kgShivam Ponce MD Work Phone: [facility] CenterQipedunrwm22-31-3031 14:15-0400Diastolic blood ivmywrmx13 mm[Hg]Shivam Ponce MD Work Phone: [facility] CenterIcbtxghjzb48-33-9604 14:15-0400Heart rate67 /min Shivam Ponce MD Work Phone: [facility] CenterPynmwhgtaq64-08-3023 14:15-0400Systolic blood rbakzpsg847 mm[Hg]Shivam Ponce MD Work Phone: 0([phone] [place], [place] [address]Ezhzbiohse92-52-9714 11:15-0400Body mass index (BMI) [Ratio]24.12 kg/b2UmmdbyaShivam Ponce MD Work Phone: 1([phone] [place], [place] [address]Rhdojhhsks45-23-3341 11:15-0400Body iwbyvx62.78 kgShivam Ponce MD Work Phone: 1(204)[address] [place], [place] 2643606-09-2025 11:15-0400Diastolic blood qvgeqmss00 mm[Hg]Shivam Ponce MD Work Phone: 1(504)[address] [place], [place] 2643606-09-2025 11:15-0400Heart rate63 /min Shivam Ponce MD Work Phone: 2(247)[facility] [place], [place] [address]Bfifhfvpgg11-60-6642 11:15-0400Systolic blood ypwjeztp115 mm[Hg]Shivam Ponce MD Work Phone: 5(563)[address] [place], [place] 2643605-15-2025 11:31-0400Body .1 cmAs[facility]05-15-2025 11:31-0400Body mass index (BMI) [Ratio]22.9 kg/s2LochbqoswAshtabula County Medical Center05-15-2025 11:31-0400Body agiazv93.59 kgAshtabula County Medical Center05-15-2025 11:31-0400Diastolic blood xvcbncyj32 mm[Hg][facility]05-15-2025 11:31-0400 Heart rate61 /[facility]05-15-2025 11:31-0400 Respiratory rate12 /[facility]05-15-2025 11:31-0400 Systolic blood ijptdawc906 mm[Hg][facility]04-03-2025 11:43-0400Body mass index (BMI) [Ratio]23.76 kg/w9ShwcuqpShivam Ponce MD Work Phone: 5([phone] CenterIldhtdvzge59-95-1058 11:43-0400Body wixmij97.88 kgShivam Ponce MD Work Phone: [facility] CenterFseckbgcxf31-74-2309 11:43-0400Diastolic blood bcbgvykp95 mm[Hg]Shivam Ponce MD Work Phone: [facility] CenterJhrumqylfd95-91-7670 11:43-0400Heart rate59 /min Shivam Ponce MD Work Phone: [facility] CenterLmtbdubvzu07-14-8549 11:43-0400Systolic blood qtdndtbo364 mm[Hg]Shivam Ponce MD Work Phone: [facility] CenterMrplrzgeey86-04-1774 14:34-0400Body .1 cmAnita Garcia MD Work Phone: 1([phone])[address]03-11-2025 14:34-0400 Body mass index (BMI) [Ratio]22 kg/u8LegokvAnita Garica MD Work Phone: 1216)[address]03-11-2025 14:34-0400 Body .1 kgAnita Garcia MD Work Phone: 1216)[address]03-11-2025 14:34-0400 Diastolic blood qfydcxlo67 mm[Hg]Anita Garcia MD Work Phone: 1216)[address]03-11-2025 14:34-0400 Heart rate68 /Juani Garcia MD Work Phone: [phone])550-[address] [place], [place] 1283103-11-2025 14:34-0400 Respiratory rate12 /minAnita Garcia MD Work Phone: [phone])690-[address] [place], [place] 1283103-11-2025 14:34-0400 SaO2% (BldA) [Mass fraction]98 %Anita Garcia MD Work Phone: 1216)[address]03-11-2025 14:34-0400 Systolic blood auwscnvd027 mm[Hg]Anita Garcia MD Work Phone: [phone])296-[address] [place], [place] 1283102-11-2025 11:18-0500 Body dpptok173.1 cmAnita Garcia MD Work Phone: 1(672)[address]02-11-2025 11:18-0500 Body mass index (BMI) [Ratio]22.8 kg/d5HckoumAnita Garcia MD Work Phone: 1216)[address]02-11-2025 11:18-0500 Body eturis58.19 kgAnita Garcia MD Work Phone: 1216)[address]02-11-2025 11:18-0500 Diastolic blood kjittwzm78 mm[Hg]Anita Garcia MD Work Phone: 1216)[address]02-11-2025 11:18-0500 Heart rate58 /Juani Garcia MD Work Phone: 1216)[address]02-11-2025 11:18-0500 Respiratory rate12 /Juani Garcia MD Work Phone: 1216)[address]02-11-2025 11:18-0500 Systolic blood wystmjns041 mm[Hg]Anita Garcia MD Work Phone: 1(257)[address]02-07-2025 11:24-0500 Body mzepad122.8 cmShivam Ponce MD Work Phone: [facility] CenterVsknbldhpm47-46-6389 11:24-0500Body mass index (BMI) [Ratio]23.76 kg/m2EbuzifxShivam Ponce MD Work Phone: [facility] CenterZmadibdjcs08-19-2274 11:24-0500Body gznaqx23.88 kgShivam Ponce MD Work Phone: [facility] CenterVhdynpxwws85-89-7953 11:24-0500Diastolic blood mm[Hg]Shivam Ponce MD Work Phone: [facility] CenterRwwpsdadxt70-53-7367 11:24-0500Systolic blood rgozgwsw088 mm[Hg]Shivam Ponce MD Work Phone: 1(440)[address]01-28-2025 09:38-0500Body qhyfue197.1 cmAnita Garcia MD Work Phone: 1216)[address]01-28-2025 09:38-0500 Body mass index (BMI) [Ratio]22.9 kg/o9LtnsuhAnita Garcia MD Work Phone: 1216)[address]01-28-2025 09:38-0500 Body vceioq31.59 kgAnita Garcia MD Work Phone: 1216)[address]01-28-2025 09:38-0500 Diastolic blood gnpdlwek68 mm[Hg]Anita Garcia MD Work Phone: 1216)[address]01-28-2025 09:38-0500 Heart rate70 /minAnita Garcia MD Work Phone: 1216)[address]01-28-2025 09:38-0500 Respiratory rate12 /minAnita Garcia MD Work Phone: 1216)[address]01-28-2025 09:38-0500 Systolic blood sfwsnnyg849 mm[Hg]Anita Garcia MD Work Phone: 1(882)[address]01-12-2025 23:59-0500 Body mass index (BMI) [Ratio]23.76 kg/s6EqtksnrShivam Ponce MD Work Phone: [facility] CenterHetlwsywma52-10-2570 23:59-0500Body .88 kgShivam Ponce MD Work Phone: 1(771)0-9249[facility] CenterErishmwbzb15-10-9681 23:59-0500Diastolic blood mezsnqhv40 mm[Hg]Shivam Ponce MD Work Phone: 1(604)5-5008[facility] CenterGjueefzdod10-28-9845 23:59-0500Heart rate65 /min Shivam Ponce MD Work Phone: 7(957)8-0919[facility] CenterZoasrlkbyq90-08-4351 23:59-0500Systolic blood jmhxljne970 mm[Hg]Shivam Ponce MD Work Phone: [facility] CenterZmvdczrutb67-71-2086 14:09-0500Body fzziew560.1 cmBenjamin Ball DO Work Phone: 1(249)010-[address] [place], [place] 1550101-07-2025 14:09-0500 Body mass index (BMI) [Ratio]23 kg/o2Shtedlpz Ball DO Work Phone: 1(857)968-[address] [place], [place] 1550101-07-2025 14:09-0500 Body auodbz72.7 kgBenjamin Ball DO Work Phone: 1(909)[address]01-07-2025 14:09-0500 Diastolic blood zirewqcz06 mm[Hg]Kyle Ball DO Work Phone: 1(745)[address] [place], [place] 5031301-07-2025 14:09-0500 Heart rate58 /minBenjamin Ball DO Work Phone: 1(795)[address] [place], [place] 5031301-07-2025 14:09-0500 Respiratory rate12 /minBenjamin Ball DO Work Phone: 1(601)[address] [place], [place] 5031301-07-2025 14:09-0500 Systolic blood uiqwsxjl112 mm[Hg]Kyle Ball DO Work Phone: 1(920)[address] [place], [place] 5031312-30-2024 14:31-0500 Body .1 cmBenjamin Ball DO Work Phone: 1(896)[address] [place], [place] 5031312-30-2024 14:31-0500 Body mass index (BMI) [Ratio]23.1 kg/t4Ldpfxwth Ball DO Work Phone: 1(632)990-[address] [place], [place] 1550112-30-2024 14:31-0500 Body .04 kgBenjamin Ball DO Work Phone: 1(877)[address] [place], [place] 5031312-30-2024 14:31-0500 Diastolic blood tazxnijb91 mm[Hg]Kyle Ball DO Work Phone: 1(680)251-[address] [place], [place] 1550112-30-2024 14:31-0500 Heart rate74 /minBenjamin Ball DO Work Phone: [phone]12-30-2024 14:31-0500 SaO2% (BldA) [Mass fraction]98 %Kyle Ball DO Work Phone: 1([phone]12-30-2024 14:31-0500 Systolic blood sotaznpw315 mm[Hg]Kyle Ball DO Work Phone: 1([phone]12-12-2024 17:29-0500 Body mass index (BMI) [Ratio]24.33 kg/p8AlgvvqsShivam Ponce MD Work Phone: 1(584)[address]12-12-2024 17:29-0500Body nskwad40.33 kgShivam Ponce MD Work Phone: 1(904)[address] [place], [place] 2643612-12-2024 17:29-0500Diastolic blood itscmdls49 mm[Hg]Shivam Ponce MD Work Phone: 1(628)8-[address] [place], [place] [address]Jmgivywilm97-48-6197 17:29-0500Systolic blood byfjtijy720 mm[Hg]Shivam Ponce MD Work Phone: 1(517)[address] [place], [place] 2643612-10-2024 11:10-0500Body ujvlsh549.1 cmBenjamin Ball DO Work Phone: [phone]12-10-2024 11:10-0500 Body mass index (BMI) [Ratio]22.7 kg/g2Coemzufw Ball DO Work Phone: 1(127)890-[address] [place], [place] 1550112-10-2024 11:10-0500 Body vrmhii98 kgBenjamin Ball DO Work Phone: 1(433)[address] [place], [place] 5031311-13-2024 11:01-0500 Body soialo580.37 cmBenjamin Ball DO Work Phone: 1(184)[facility] [place], [place] 1550111-13-2024 11:01-0500 Body mass index (BMI) [Ratio]22.6 kg/i5Dlzsewzl Ball DO Work Phone: 1(920)[facility] [place], [place] 1550111-13-2024 11:01-0500 Body .65 kgBenjamin Ball DO Work Phone: [facility]11-13-2024 11:01-0500 Diastolic blood rdrdadzg21 mm[Hg]Kyle Ball DO Work Phone: [facility]11-13-2024 11:01-0500 Heart rate61 /minBenjamin Ball DO Work Phone: [facility]11-13-2024 11:01-0500 Respiratory rate12 /minBenjamin Ball DO Work Phone: [facility]11-13-2024 11:01-0500 Systolic blood deyxosou175 mm[Hg]Kyle Ball DO Work Phone: [facility]10-31-2024 11:33-0400 Body mass index (BMI) [Ratio]25.02 kg/g9NzxsevnShivam Ponce MD Work Phone: 0(560)2-[address] [place], [place] [address]Hylcevkgbz73-96-5091 11:33-0400Body .05 kgShivam Ponce MD Work Phone: 9(876)0-[address] [place], [place] [address]Bpjiezurrb79-78-4144 11:33-0400Diastolic blood cmsfdojp97 mm[Hg]Shivam Ponce MD Work Phone: 6(313)9-[address] [place], [place] [address]Jkzgspqite43-05-5510 11:33-0400Heart rate66 /min Shivam Ponce MD Work Phone: 2(752)239-[address] [place], [place] [address]Bdzoczpime82-08-6859 11:33-0400Systolic blood eyoyeozs056 mm[Hg]Shivam Ponce MD Work Phone: 6(410)[address]10-08-2024 11:09-0400Body laxedc382.37 cmAshtabula [facility] Center10-08-2024 11:09-0400Body mass index (BMI) [Ratio]22.3 kg/l2OhozxhpvqAshtabula County Medical Center10-08-2024 11:09-0400Body .74 kgAshtabula County Medical Center10-08-2024 11:09-0400Diastolic blood drbpekab60 mm[Hg][facility]10-08-2024 11:09-0400 Heart rate64 /[facility]10-08-2024 11:09-0400 Respiratory rate12 /[facility]10-08-2024 11:09-0400 Systolic blood kuxcimpp757 mm[Hg][facility]09-25-2024 11:33-0400Body usvjfj500.8 cmShivam Ponce MD Work Phone: [facility] CenterDairdifatd36-39-4618 11:33-0400Body mass index (BMI) [Ratio]23.94 kg/b6HmucsajShivam Ponce MD Work Phone: [facility] CenterZvniczokzh62-70-0401 11:33-0400Body suzngw24.33 kgShivam Ponce MD Work Phone: [facility] CenterDmeuxsgtja98-02-5224 11:33-0400Diastolic blood nbotmfit55 mm[Hg]Shivam Ponce MD Work Phone: [facility] CenterAelbpunipi01-22-7248 11:33-0400Systolic blood zwqicitl633 mm[Hg]Shivam Ponce MD Work Phone: [facility] CenterKsofzssaax82-98-1359 11:40-0400Body .37 cmAs[facility]09-20-2024 11:40-0400Body mass index (BMI) [Ratio]21.8 kg/v6YsiqcdwacAshtabula County Medical Center09-20-2024 11:40-0400Body hluvzg00.44 kgAshtabula County Medical Center09-20-2024 11:40-0400Diastolic blood waknfjtm89 mm[Hg][facility]09-20-2024 11:40-0400 Heart rate63 /[facility]09-20-2024 11:40-0400 Respiratory rate12 /[facility]09-20-2024 11:40-0400 Systolic blood crckaina102 mm[Hg][facility]09-10-2024 11:03-0400Body .37 cmAshtabula [facility] Medical Center09-10-2024 11:03-0400Body mass index (BMI) [Ratio]21.4 kg/j5GjuouknchAshtabula County Medical Center09-10-2024 11:030400Body yudcmj07.47 kgAshtabula County Medical Center 05-17-2024 11:03-0400Diastolic blood deobpbhp02 mm[Hg][facility]09-10-2024 11:03-0400Heart rate57 /[facility] 05-17-2024 11:03-0400Respiratory rate12 /[facility] 05-17-2024 11:03-0400Systolic blood sdouzcld698 mm[Hg][facility]08-27-2024 11:14-0400Body smowkq923.8 cmAamir Xavier RegalBox Work Phone: [facility] CenterMvpyuwruvj79-31-0840 11:14-0400Body mass index (BMI) [Ratio]23.76 kg/i4NphvpyeAamir Xavier DO Work Phone: [facility] CenterOxshqaawhd35-62-3572 11:14-0400Body avphwc76.88 kgAamir Xavier RegalBox Work Phone: [facility] CenterRylsqhwtog02-29-6374 11:14-0400Diastolic blood ryobrssr68 mm[Hg]Aamir Xavier [employer] Work Phone: [facility] CenterXkytcycjzo02-32-3447 11:14-0400Systolic blood fpyufthv998 mm[Hg]Aamir Xavier [employer]Box Work Phone: [facility] CenterMeepkeckla02-68-2434 11:18-0400Body .37 cmAs[facility]abula [facility]07-03-2024 11:18-0400Body mass index (BMI) [Ratio]21.8 kg/a6MqxthodhwAshtabula County Medical Center07-03-2024 11:18-0400Body .44 kgAshtabula County Medical Center07-03-2024 11:18-0400Diastolic blood aawnnbir60 mm[Hg][facility]07-03-2024 11:18-0400 Heart rate68 /[facility]07-03-2024 11:18-0400 Respiratory rate12 /[facility]07-03-2024 11:18-0400 Systolic blood bodxdujm668 mm[Hg][facility]03-20-2024 11:17-0400Body ylbtfa332.37 cmAshtabula County Medical Center03-20-2024 11:17-0400Body mass index (BMI) [Ratio]23.3 kg/x6MjrhapaeqAshtabula County Medical Center03-20-2024 11:17-0400Body .63 [facility] 11-25-2023 11:17-0400Diastolic blood utxkaspa24 mm[Hg][facility]03-20-2024 11:17-0400Heart rate66 /[facility] 11-25-2023 11:17-0400Respiratory rate12 /[facility] 11-25-2023 11:17-0400Systolic blood vamixxem252 mm[Hg][facility]02-07-2024 11:20-0500Body mass index (BMI) [Ratio]24.96 kg/j0ZkbywvgShivam Ponce MD Work Phone: [id number] 11:20-0500Body jljnud54.41 kgShivam Ponce MD Work Phone: [facility] CenterQbjfdkyphl55-17-2027 11:20-0500Diastolic blood mm[Hg]Shivam Ponce MD Work Phone: [facility] [id number] 11:20-0500Systolic blood mm[Hg]Shivam Ponce MD Work Phone: [facility] [id number] 15:00-0500Body bsbsax66.04 kgAs[facility]12-19-2023 15:00-0500Diastolic blood pressure 64 mm[Hg][facility]12-19-2023 15:00-0500Systolic blood rqywxtpg726 mm[Hg][facility]12-19-2023 11:15-0500Body zhofdj796.37 Yulia Rivera Other [facility]12-19-2023 11:15-0500 Body mass index (BMI) [Ratio]22.61 kg/h3Vgbvaja Ditty Other [employer] Other 12-19-2023 11:15-0500Body ijbgbf70.6 kgCamcainn Tamikatty Other [employer] Other 12-19-2023 11:15-0500Diastolic blood nhahpvtf98 mm[Hg] Doni Rivera Other [employer] Other 12-19-2023 11:15-0500Systolic blood mm[Hg] Doni Rivera Other [employer] Other 09-20-2023 10:00-0400Body oifcvb553.37 cmBenjamin Ball Other [employer] Other 09-20-2023 10:00-0400Body mass index (BMI) [Ratio] 22.74 kg/d2Zidiimga Ball Other [employer] Other 09-20-2023 10:00-0400Body .96 kgBenjamin Ball Other [employer] Other 09-20-2023 10:00-0400Diastolic blood aphxixls74 mm[Hg] Kyle Ball Other [employer] Other 09-20-2023 10:00-0400Respiratory rate12 /minBenjamin Ball Other [employer] Other 09-20-2023 10:00-0400Systolic blood mm[Hg] Kyle Ball Other [employer] Other 06-06-2023 10:30-0400Body dmooea634.37 cmBenjamin Ball Other [employer] Other 06-06-2023 10:30-0400Body mass index (BMI) [Ratio] 24.55 kg/a9Mirifued Ball Other [employer] Other 06-06-2023 10:30-0400Body hdeley82.95 kgBenjamin Ball Other [employer] Other 06-06-2023 10:30-0400Diastolic blood ktjcqovv79 mm[Hg] Kyle Ball Other [employer] Other 06-06-2023 10:30-0400Respiratory rate12 /minBenjamin Ball Other [employer] Other 06-06-2023 10:30-0400Systolic blood mm[Hg] Kyle Ball Other [employer] Other 04-27-2023 11:30-0400Body yyqbge553.37 cmBenjamin Ball Other [employer] Other 04-27-2023 11:30-0400Body mass index (BMI) [Ratio] 23.01 kg/r9Mwilfhnc Ball Other [employer] Other 04-27-2023 11:30-0400Body jsgomz01.69 kgBenjamin Ball Other [employer] Other 04-27-2023 11:30-0400Diastolic blood auaygjbl67 mm[Hg] Kyle Ball Other [employer] Other 04-27-2023 11:30-0400Respiratory rate12 /minBenjamin Ball Other [employer] Other 04-27-2023 11:30-0400Systolic blood alvefkqi073 mm[Hg] Kyle Ball Other [employer] Other 04-12-2023 11:15-0400Body zpsxid797.37 cmBenjamin Ball Other [employer] Other 04-12-2023 11:15-0400Body mass index (BMI) [Ratio]25.3 kg/i4Tcxfbyuc Ball Other [employer] Other 04-12-2023 11:15-0400Body wbumzd62.04 kgBenjamin Ball Other [employer] Other 04-12-2023 11:15-0400Diastolic blood rlajnmxk23 mm[Hg] Kyle Ball Other [employer] Other 04-12-2023 11:15-0400Respiratory rate12 /minBenjamin Ball Other [employer] Other 04-12-2023 11:15-0400Systolic blood mm[Hg] Kyle Ball Other [employer] Other 03-13-2023 12:00-0400Body rmwboa561.37 cmBenjamin Ball Other [employer] Other 03-13-2023 12:00-0400Body mass index (BMI) [Ratio] 24.15 kg/n4Byjvbufj Ball Other [employer] Other 03-13-2023 12:00-0400Body .86 kgBenjamin Ball Other [employer] Other 03-13-2023 12:00-0400Diastolic blood runuopsv28 mm[Hg] Kyle Micah Other [employer] Other 03-13-2023 12:00-0400Respiratory rate12 /minBenalicia Obrien Other [employer] Other 03-13-2023 12:00-0400Systolic blood iijfzjel241 mm[Hg] Kyle Micah Other [employer] Other 03-10-2022 15:45-0500Body jmmynh152.37 cmCameron Ditty Other [employer] Other 03-10-2022 15:45-0500Body mass index (BMI) [Ratio]23.6 kg/e6Rmuylvs Ditty Other [employer] Other 03-10-2022 15:45-0500Body lzqfdu45.32 kgCameron Ditty Other [employer] Other Encounters Encounter DateEncounter TypeCare ProviderFacilityStart: 07-04-2025 End: 59-49-5463vhuqbnndbdVyarvoyk Ball DO Work Phone: -[facility] ClinicStart: 07-04-2025 End: 04-37-4437Jksfjes encounter procedureBenalicia Obrien DO-[facility] Work Phone: Start: 06-29-2025 End: 92-12-4879Jysdrop encounter procedureAamir Acosta DO-[facility] Work Phone: Start: 06-29-2025 End: 43-70-8932gpmunnbkiaCrhqvrng Ball DO Work Phone: [phone]Start: 57-44-5451Fqg-patient / Non-visitBenjamin Micah DO-[facility] Work Phone: Start: 06-19-2025 End: 05-27-4018ajpzkseqmuBvoyivsh Micah DO Work Phone: [facility] Work Phone: Start: 06-19-2025 End: 48-11-9154Wdbgcno encounter procedureBenalicia Obrien DO-[facility] Work Phone: Start: 06-02-2025 End: 84-84-1341qfrhcpgwkuTspehwqz Ball DO Work Phone: [facility] Work Phone: Start: 06-02-2025 End: 80-61-9661Aokywit encounter procedureBenalicia Obrien DO-[facility] Work Phone: Start: 05-22-2025 End: 51-53-4673bxmyrmyltpNMSXTOV W BAUERNot AvailableComment on above: Trochanteric bursitis of both hips (Primary Dx); Orthostatic dizziness; Nerve root and plexus disorder, unspecifiedStart: 05-09-2025 End: 38-75-5072Puwkych encounter procedureAamir Xavier DO Work Phone: [facility] Daly OBGYNComment on above:Encounter for gynecological examination without abnormal finding; Encounter for Papanicolaou smear of vagina; Breast cancer screening by mammogram; Hormone replacement therapyStart: 05-09-2025 End: 68-47-0836Ggwaeyi encounter statusAamir Xavier DO Work Phone: noms HealthcareStart: 05-09-2025 End: 89-44-9839ygcmqojvpyFUOKBWF D BRUNERNot AvailableStart: 04-27-2025 End: 43-79-8410djpccrirakBcpptshc Ball DO Work Phone: [facility] Work Phone: Start: 04-27-2025 End: 86-33-7519Zyfvaho encounter procedureAliza Daniel MD-[facility] Work Phone: Start: 04-10-2025 End: 07-85-0780Snoulh flowsheetMel Hayes MD Work Phone: [facility] [place] [facility]ergyStart: 04-10-2025 End: 61-74-0191Pujrkq flowsheetMel Hayes MD Work Phone: [facility] [place] [facility]ergyStart: 04-10-2025 End: 81-06-1933Blqclw outpatient visit 15 minutesToashely Hayes MD Work Phone: NOSI [place] AllergyComment on above:Chronic rhinitis (Primary Dx)Start: 04-10-2025 End: 48-99-5518mdxrojmredBDBS E RAMBASEKNankit AvailableStart: 03-27-2025 End: 11-96-0119ooiygfuyyhPfhgpiio Ball DO Work Phone: [facility] Work Phone: Start: 03-27-2025 End: 57-29-0632Ofizcqx encounter procedureBenjamin Ball DO-[facility] Work Phone: Start: 03-22-2025 End: 32-34-1331Jccmky Moreno Ponce MD Work Phone: n[facility] BM NEUROLOGYStart: 03-22-2025 End: 40-22-8378Bwczbptaj Ponce MD Work Phone: noms NEUROLOGYStart: 03-22-2025 End: 58-20-4472Qrqkzekn SupportShivam Ponce MD Work Phone: [facility] [place] NeurologyComment on above:Nerve root and plexus disorder, unspecified; Myalgia, multiple sitesStart: 02-23-2025 End: 29-50-2248Mbivinx encounter procedureAliza Daniel MD-[facility] Work Phone: Start: 02-15-2025 End: 68-31-7368Pirpdnuvo encounterSoheila Kemp JOB SITE SUPERVISOR Work Phone: [facility] NEURO 210Start: 02-13-2025 End: 59-05-3105Kfjpmv flowsheetShivam Ponce MD Work Phone: noms NEUROLOGYStart: 02-13-2025 End: 05-51-0162Kifola flowsheetShivam Ponce MD Work Phone: noms NEUROLOGYStart: 02-13-2025 End: 75-10-0396Dzsknsmk SupportBregail Ponce MD Work Phone: noms SWS NEURComment on above:Trochanteric bursitis of both hips (Primary Dx); Nerve root and plexus disorder, unspecifiedStart: 36-18-0255Irj-patient / Non-visitByron Cochran MD-[facility] Work Phone: Start: 63-37-3414Oct-patient / Non-visitDamaso Acosta DO-[facility] Work Phone: Start: 01-19-2025 End: 54-76-2459ltnplmhykrLttdrkohyAkron Children's Hospital Work Phone: Start: 01-19-2025 End: 43-91-8525Xpgigxk encounter procedureLola [facility]ician [facility] Work Phone: Start: 12-16-2024 End: 48-32-1755biywtnygoyFyrjozldsAv[facility] Work Phone: Start: 12-16-2024 End: 84-54-6822Hdhyomu encounter procedureC[facility] Work Phone: Start: 12-08-2024 End: 64-67-0802Wlfnjq Moreno Ponce MD Work Phone: noms BM NEUROLOGYStart: 12-08-2024 End: 69-45-5829Gyylegtaj Ponce MD Work Phone: n[facility] BM NEUROLOGYStart: 12-08-2024 End: 30-32-2385Utudmmxz SupportShivam Ponce MD Work Phone: noms SWS NEURComment on above:Trochanteric bursitis of both hips (Primary Dx); Nerve root and plexus disorder, unspecifiedStart: 11-15-2024 End: 23-89-0094yawfcukhazUdjnby Diab MD Work Phone: [facility] Work Phone: Start: 11-15-2024 End: 10-05-6909Uanqxwx encounter procedureAnita Garcia MD Work Phone: [facility] Physician [facility] Work Phone: Start: 10-18-2024 End: 36-50-1689mihwxwrewyWoxrav Diab MD Work Phone: [facility] Work Phone: Start: 10-18-2024 End: 19-64-3828Vfzahut encounter procedureAnita Garcia MD Work Phone: [facility] Physician [facility] Work Phone: Start: 10-14-2024 End: 21-47-7529Zrtpvptaj Ponce MD Work Phone: noms NEUROLOGYStart: 10-14-2024 End: 46-00-5975Hdktswchristen Ponce MD Work Phone: n[facility] BM NEUROLOGYStart: 10-14-2024 End: 72-32-0224Rjbafgxu SupportShivam Ponce MD Work Phone: noms SWS NEURComment on above:Trochanteric bursitis of both hips (Primary Dx); Nerve root and plexus disorder, unspecifiedStart: 10-04-2024 End: 14-02-1831bwsnjstcfjPsjsvy Diab MD Work Phone: [facility] Work Phone: Start: 10-04-2024 End: 33-63-8420Dveijdj encounter procedureAnita Garcia MD Work Phone: [facility] Physician [facility] Work Phone: Start: 95-95-6557Zqr-patient / Non-visitAnita Garcia MD Work Phone: [facility] Physician [facility] Work Phone: Start: 18-01-6681Mzs-patient / Non-visitMartres Garcia MD Work Phone: [facility] Work Phone: Start: 03-59-0671Stj-patient / Non-visitAnita Garcia MD Work Phone: [facility] Work Phone: Start: 09-14-2024 End: 28-95-3138Tilakl Moreno Ponce MD Work Phone: noms BM NEUROLOGYStart: 09-14-2024 End: 08-61-4270Pfsqfjtaj Ponce MD Work Phone: [facility] BM NEUROLOGYStart: 09-14-2024 End: 13-09-6945Aukwnyos SupportShivam Ponce MD Work Phone: [facility] SWS NEURComment on above:Trochanteric bursitis of both hips (Primary Dx); Cervical paraspinal muscle spasm; Other nerve root and plexus disordersStart: 09-13-2024 End: 50-57-3408ubrvhohirsIpatpypn Ball DO Work Phone: [facility] Work Phone: Start: 09-13-2024 End: 25-44-6590Ckzjind encounter procedureBenjamin Ball DO Work Phone: [facility] GroupHu [facility] Work Phone: Start: 39-39-0157Onr-patient / Non-visitBenjamin Ball DO Work Phone: [facility] Work Phone: Start: 49-62-1650Cdh-patient / Non-visitMariam Jose ROSADO Work Phone: [facility] Physician [facility] Out[facility] Work Phone: Start: 71-58-8123Fqo-patient / Non-visitBenjamin Ball DO Work Phone: [facility] Physician [facility] Work Phone: Start: 09-05-2024 End: 52-65-7553epvbbkjjemLtgkswdk Ball DO Work Phone: [facility] Work Phone: Start: 09-05-2024 End: 27-34-9034Qfpssotx ReferredBenjamin Ball DO Work Phone: [facility] Work Phone: Start: 09-05-2024 End: 60-32-1805Sgatzjm encounter procedureBenjamin Ball DO Work Phone: [facility] Work Phone: Start: 08-18-2024 End: 26-74-9809Htrbms Moreno Ponce MD Work Phone: noms NEUROLOGYStart: 08-18-2024 End: 54-11-6733Wmrmib Moreno Ponce MD Work Phone: noms NEUROLOGYStart: 08-18-2024 End: 19-96-0683Bfjzijbe SupportShivam Ponce MD Work Phone: [facility] SWS NEURComment on above:Other nerve root and plexus disorders (Primary Dx); Trochanteric bursitis of both hipsStart: 08-16-2024 End: 41-64-1716Sdmkkcd encounter procedureBenjamin Ball DO Work Phone: [facility]At[facility] Work Phone: Start: 07-22-2024 End: 19-86-9926qseexexirsRjkbpuuf Ball DO Work Phone: [facility] Work Phone: Start: 07-22-2024 End: 18-51-5274Msynnxj encounter procedureBenjamin Ball DO Work Phone: [facility] Physician [facility] Work Phone: Start: 07-20-2024 End: 60-05-4491oaamzoyxbkHfvjiiim Ball DO Work Phone: [facility] Work Phone: Start: 07-20-2024 End: 23-49-8114Kejxcrw encounter procedureBenjamin Ball DO Work Phone: [facility] GroupClerm[facility] Work Phone: Start: 07-07-2024 End: 91-93-8980Mxmvfytja Ponce MD Work Phone: [facility]oms NEUROLOGYStart: 07-07-2024 End: 24-40-8904Dvgzmp Moreno Ponce MD Work Phone: [facility] BM NEUROLOGYStart: 07-07-2024 End: 85-15-9943Vjtueqnn SupportShivam Ponce MD Work Phone: [facility] SWS NEURComment on above:Trochanteric bursitis of both hips (Primary Dx); Other nerve root and plexus disordersStart: 06-23-2024 End: 89-77-6139gsbikoxqckOD [facility] Work Phone: [facility] Work Phone: Start: 06-23-2024 End: 88-86-1002Ucjjdyd encounter procedureDO [facility] Work Phone: [facility] Work Phone: Start: 06-21-2024 End: 92-78-5403nnricbyozwOanvazzjqAv[facility] Work Phone: Start: 06-21-2024 End: 50-81-1722Sashktc encounter procedureC[facility] Work Phone: Start: 06-14-2024 End: 34-54-9460kmeiqamukbByymaajzxAvita Health [facility] Work Phone: Start: 06-14-2024 End: 22-39-3738Fpolgoh encounter procedureC[facility] Work Phone: Start: 04-70-7080Xeornwp encounter procedurePremier Health [facility] Northtart: 01-47-9626Bwl-patient / Non-visitCatawba [facility] Work Phone: Start: 06-02-2024 End: 98-19-0155Iujietcoe encounterShivam Ponce MD Work Phone: n[facility] SWS NEURStart: 06-01-2024 End: 39-58-7765Pqjato flowsheetShivam Ponce MD Work Phone: [facility] BM NEUROLOGYStart: 06-01-2024 End: 76-87-7532Serxme flowsheetBregail Ponce MD Work Phone: [facility] BM NEUROLOGYStart: 06-01-2024 End: 32-02-2999Yscvddsn SupportShivam Ponce MD Work Phone: noms SWS NEURComment on above:Trochanteric bursitis of both hips (Primary Dx); Other nerve root and plexus disordersStart: 05-27-2024 End: 77-56-8397ikqcbkjxqfJmwwhbiwwAvita Health System [facility] Work Phone: Start: 05-27-2024 End: 84-63-5897Gexuhsc encounter procedureC[facility] Physician GroupClermont [facility] Hospital Work Phone: Start: 55-41-2970Irv-patient / Non-visitCatawba [facility] GroupOver[facility] Work Phone: Start: 05-17-2024 End: 38-83-9736dxmuqszqepEjayrxxxjAvita Health System [facility] Work Phone: Start: 05-17-2024 End: 78-09-0003Qpctnan encounter procedureCataw[facility] Physician GroupClermont [facility] Hospital Work Phone: Start: 05-11-2024 End: 42-55-2483vvwoigxzhqLxctwotbaAvita Health System [facility] Hospital Work Phone: Start: 05-11-2024 End: 52-74-7687Vfrywek encounter procedureC[facility] Physician GroupClermont [facility] Work Phone: Start: 05-03-2024 End: 52-29-3519Xtixks outpatient visit 25 minutesAamir Xavier DO Work Phone: noms SWS OBComment on above:Postmenopausal atrophic vaginitis (Primary Dx); Breast cancer screening by mammogram; Hormone replacement therapyStart: 04-12-2024 End: 09-62-5152rwnondqrvoEtzgtpmfjAvita Health System [facility] Hospital Work Phone: Start: 04-12-2024 End: 20-00-9714Slsfcyr encounter procedureFirelands Physician Group-[facility] Work Phone: Start: 03-09-2024 End: 68-81-8508gptkimbpnrPofpnxfgnAvita Health System Bu[facility] Hospital Work Phone: Start: 03-09-2024 End: 58-09-7266Zvtwfhl encounter procedureFirelands Physician Group-[facility] Work Phone: Start: 02-03-2024 End: 61-00-4618hwruqutjigKmcspnmliAkron Children's Hospital Work Phone: Start: 02-03-2024 End: 24-53-8491Ezzijwi encounter procedureFirelands Physician Group-[facility] Work Phone: Start: 12-28-2023 End: 94-08-4451htbubzahehEovwdieqsAvita Health System [facility] Work Phone: Start: 12-28-2023 End: 53-59-9561Dogdiib encounter procedureFirelands Physician Group-[facility] Work Phone: Start: 11-25-2023 End: 77-00-3013vckxokfcmhZhlqwjqwyAvita Health System [facility] Work Phone: Start: 11-25-2023 End: 44-02-2776Jviijml encounter procedureFirelands Physician Group-[facility] Work Phone: Start: 10-21-2023 End: 11-70-5415jfqntkwwalRbcyisligAkron Children's Hospital Work Phone: Start: 10-21-2023 End: 49-08-9111Bpzpqrg encounter procedureFircarilion [facility] Work Phone: Start: 10-14-2023 End: 89-47-1260Vavhsb outpatient visit 25 minutesShivam Ponce MD Work Phone: [facility] SWS NEURComment on above:Brachial plexus neuropathy (Primary Dx); Multiple sclerosis (CMS/HCC)Start: 19-68-1057Kullwliang Ponce MD Work Phone: n[facility] NEURO 210Start: 09-29-2023 End: 80-61-7240twhyuamxkuTigxtgco Ball Other [employer] Other Start: 19-03-5312Hrzeivfud encounterBenalicia [facility]rien Medical ClinicStart: 09-17-2023 End: 48-36-8542qfwbqqehfsFwonskne Ball Other [employer] Other Start: 66-85-0073Vdypkh outpatient visit 15 minutes Kyle Cheyanne [facility] ClinicStart: 09-17-2023 End: 43-58-3551Ijofqzc encounter procedureFirelands Physician Group-[facility] Work Phone: Start: 09-15-2023 End: 42-85-0271ogtcqvgqjmCniwezxh Ball Other noR[employer] Other Start: 58-94-1526Loxehyt evaluation of patient and reportBenalicia [facility]rien Medical ClinicStart: 08-28-2023 End: 56-61-3202jetsknvbtzBtsfqelv Rohrbacher Other noR[employer]ive Other Start: 51-10-5872Zzcwzqn evaluation of patient and reportJennifer VernellrbTegan [facility]rien Medical ClinicStart: 36-08-8741Tzcaimeds encounterJennifer RohrbacheShanita [facility]rien Medical ClinicStart: 08-26-2023 End: 14-11-4244qogoeieomrWupnslqg Rohrbacher Other noRapp[employer]ive Other Start: 54-60-8562Brgbnrdit encounterJennifer RohrbTegan [facility]rien Medical ClinicStart: 08-25-2023 End: 32-83-7244dbrkxtcoytNnhiema Ditty Other [employer] Other Start: 35-35-2765Mpwmzit encounter procedureCameron DittyFPG GastroenterologyStart: 08-25-2023 End: 86-80-1936Bpmybzd encounter procedureFirelands Physician Group-[facility] Work Phone: Start: 08-13-2023 End: 01-52-8258wcvwkpvekeAvlpabbx Ball Other noR[employer] Other Start: 18-48-3871Rziposy evaluation of patient and reportBenalicia [facility]rien Medical ClinicStart: 07-09-2023 End: 96-86-0060bjfjugxzvqDfmzmydb Ball Other noR[employer]ive Other Start: 47-12-7214Lowpoea evaluation of patient and reportBenalicia Obrien Medical ClinicStart: 06-19-2023 End: 76-60-1880sufumyzkupAptmnks Ditty Other [employer] Other Start: 32-33-7768Pfazqeavq encounterCameron DittyFPG GastroenterologyStart: 06-18-2023 End: 49-77-0431ynxjhhayskFqxjxjv Ditty Other [employer] Other Start: 76-19-3620Yvpcxscqf encounterCameron DittyFPG GastroenterologyStart: 06-08-2023 End: 17-00-4842grwpzyorydIzpqzguw Ball Other noRapportive Other Start: 74-74-4545Gqveckv evaluation of patient and reportBenalicia Obrien Medical ClinicStart: 05-29-2023 End: 07-41-8381mlloflzdebSytymxmi Ball Other noRapportive Other Start: 40-60-0554Rvthqpiju encounterBenjamin SaqibG [facility] ClinicStart: 05-27-2023 End: 98-48-4086xcjfqgzwbwThejdxiw Ball Other noRapportive Other Start: 28-20-6808Glstjsi encounter procedureBenjamin BallPOOLG [facility] Medical ClinicStart: 05-13-2023 End: 82-73-5173yxmmaqatxfPB Kyle Obrien Work Phone: [facility] Work Phone: Start: 05-13-2023 End: 69-43-4029Flfhxaq encounter procedureDO Kyle Obrien Work Phone: [facility] Work Phone: Start: 05-07-2023 End: 37-20-9971eglvejhxltQccmsyry Ball Other noRapportive Other Start: 76-10-2371Udwlujl evaluation of patient and reportBenjamin SaqibG [facility] ClinicStart: 04-06-2023 End: 39-01-2726beffwpokywQmlktuhv Ball Other noRapportive Other Start: 16-76-9810Lvgaljj evaluation of patient and reportBenjamin BallPOOLG [facility] ClinicStart: 03-23-2023 End: 67-60-5164gfqcmphflhDyjmvoxe Ball Other noRapportive Other Start: 17-09-0688Rqyopjk evaluation of patient and reportBenjamin BallFPG [facility] ClinicStart: 03-16-2023 End: 72-55-4161ioxkaidcymJjtndpsa Ball Other [employer] Other Start: 83-10-0622Xjmvjqa evaluation of patient and reportBenjamin BallFPG [facility] ClinicStart: 03-13-2023 End: 07-59-3980kvceclvcrnDylbjqyt Ball Other [facility] [employer] Other Start: 32-55-3888Sqwvqlnsc encounterBenjamin BallFPG [facility] ClinicStart: 03-11-2023 End: 51-70-6908qbkuijzituIbqbdzxd Ball Other [facility] [employer] Other Start: 05-32-7125Msgikpmnc encounterBenjamin BallFPG [facility] ClinicStart: 02-10-2023 End: 94-82-8391ftnnkzsfiqWnqmpqbs Ball Other [facility] [employer] Other Start: 46-06-9847Cbmlyj outpatient visit 25 minutes Kyle BallFPG [facility] ClinicStart: 02-04-2023 End: 95-92-4353qtwyoazsyiRpsdezde Ball Other [facility] [employer] Other Start: 23-76-5052Rziknootq encounterBenjamin BallFPG [facility] ClinicStart: 02-03-2023 End: 28-26-5441bkdmxgzrbpQW KYLE BALLFacility:M7Hgolz: 02-16-5210Lkopgibxu encounterBenjamin BallFPG [facility] ClinicStart: 01-09-2023 End: 05-15-2532hzyxfhjvssHayludyy Ball Other noPredictry [employer] Other Start: 53-81-5722Ogxuumybg encounterBenjamin BallFPG [facility] ClinicStart: 01-07-2023 End: 61-92-3805gqhxibdcmzRE KYLE BALLFacility:G4Jyyku: 01-01-2023 End: 34-31-0784hiujjdgnkqHoewlaxx Ball Other noRapportive Other Start: 17-31-1592Squmrf outpatient visit 25 minutes Kyle [facility] ClinicStart: 12-17-2022 End: 74-58-7439gftophlaayPancacxo Ball Other noRapportive Other Start: 57-35-4752Dmvxudsjk encounterBenalicia Obrien Medical ClinicStart: 98-08-0671Bfycuurlpiyy care manage srvc 7 day dischargeBenalicia Obrien Medical ClinicStart: 12-16-2022 End: 85-71-5379mdhcomcytaVduflytd Ball Other noRapportive Other Start: 32-95-0152Prrkahiui encounterBenalicia [facility]rien Medical ClinicStart: 12-10-2022 End: 01-56-1945Uikkpzwirb and management of inpatientDR BYRON PEREZ .Facility: Start: 12-08-2022 End: 38-03-7202ctihqcnjuqDtxqhpw Ditty Other [employer] Other Start: 35-76-6452Qiflrafbu encounterCameron DittyFPG GastroenterologyStart: 11-17-2022 End: 26-94-5085ihxopihsnbGvzwzjqm Ball Other noRapportive Other Start: 52-36-1184Zylthy outpatient visit 25 minutes Kyle [facility] ClinicStart: 09-03-2022 End: 67-35-6938nzeiosrgcjDsmhtov Ditty Other [employer] Other Start: 16-64-6927Yseszjgcb encounterCameron DittyFPG GastroenterologyStart: 08-26-2022 End: 33-71-4053kidjchzewsPQ KYLE OBRIENFacility:J2Ecmjd: 08-25-2022 End: 14-09-0129oiczsqeqstAO KYLE OBRIENFacility:J3Ixbax: 05-19-2091Rgvel health examinationBegoran Obrien Other NoPredictry Emme [employer] Other Start: 04-28-2022 End: 09-64-5423rytcduvpooRN KYLE OBRIENFacility:D6Qnwkq: 04-14-2022 End: 67-40-9517Czbncrc encounter procedureDO Kyle Obiren Work Phone: [facility] Start: 04-09-2022 End: 34-51-7238lbkqdrfsrxDmgskpw Ditty Other [facility] [employer] Other Start: 11-51-2316Gloevljhv encounterCameron DittyFPG GastroenterologyStart: 12-05-2021 End: 97-94-9451uunzpulrnbGzlnzpt Ditty Other noPredictry Emme [employer] Other Start: 28-11-1600Oxmubqmxu encounterCameron DittyFPG GastroenterologyStart: 11-14-2021 End: 11-59-0254lfpbagioifAxbgzmb Ditty Other noPredictry Emme [employer] Other Start: 64-11-1999Tsuznlm encounter procedureCameron DittyFPG Gastroenterology Procedures DateProcedureProcedure DetailPerforming ClinicianStart: 36-69-2596Aruwagfav mammography of bilateral breastsBegoran Obrien DO Work Phone: Start: 82-38-2697Eaklrnzawkcab pyogenes culture Kyle Obrien DO Work Phone: Start: 37-63-5538Evzntvtca mammography of bilateral breastsDO Kyle Obrien Work Phone: Start: 48-99-2794Gftjtfsbq mammography of bilateral breastsDO Kyle Obrien Work Phone: Start: 19-83-5911Bzsewslxm mammography of bilateral breastsDO Kyle Obrien Work Phone: Depression screeningBenalicia Obrien Other Plan of Treatment DateCare ActivityDetailAuthorStart: 05-11-2026 End: 85-58-5285Tgeomod encounter ccxuycjxl21/04/2026 11:30 AM EDT Office Visit DAMION GONSALEZ [address] [place] [id number] Aamir Xavier DO [address] [place] [address] NOMKala [place] OBGYNStart: 04-11-2026 End: [id number] encounter eghdocwgr39/05/2026 12:00 PM EDT Office Visit [facility] [place] [facility] [address] [place] [phone] Mel Hayes MD [address] [place] [address] [facility]Start: 07-26-2025 End: 40-20-0823Yuqsibam Ikfvdfk8307/26/2025 1:00 PM EST Clinical Support [facility] [address] [place], [place] [address] Shivam Ponce MD [address] [facility] [address] [place] [address] NOMKala RyanAmilcar NeurologyStart: 06-24-2025 End: 64-28-6832TTF Breast - bilateral screeningBilateral screening mammogram with tomosynthesis Imaging Routine Breast cancer screening by mammogram Expected: 06/24/2025, Expires: 07/09/2026NOMS HealthcareComment on above: Expected: 06/24/2025, Expires: 07/09/2026Start: 05-22-2025 End: 86-65-7488Bbxjlaau Nyrhkrv1605/22/2025 2:00 PM EDT Clinical Support [facility] [address] [place] [address] Shivam Ponce MD [address] [facility] [address] [place] [address], [place] [address] NOMKala Daly NeurologyStart: 05-09-2025 End: 56-66-3138Vqiwryh encounter procedureNOMS SWS OBStart: 80-36-9562Xgkpjufok vaccinationNONJ HealthcareStart: 04-10-2025 End: 16-60-7680Tcykrbr encounter procedureNOMS Daly AllergyComment on above: ArrivedStart: 03-22-2025 End: 73-65-7217Htgpbktu SupportNOMS SWS NEURComment on above:ArrivedStart: 02-13-2025 End: 91-44-1265Zsomxyo encounter snaregxdg05/09/2025 11:00 AM EDT Office Visit [facility] NEUR [address] [facility] [address] [place] [address] Shivam Ponce MD [address] [facility] [address] [place] [address], [place] [address] ArrivedNOMS SWS NEURComment on above: ArrivedStart: 02-08-2025 End: 46-70-3245Yhowzjay Ifnrgcd4902/08/2025 11:20 AM EDT Clinical Support [facility] [address] [place] [address] Shivam Ponce MD [address] [facility] [address] [place] [address], [place] [address] NOMS SWS NEURStart: 12-09-2024 End: 64-81-9627Dtfbikgc Eianemo9812/09/2024 11:30 AM EDT Clinical Support [facility] [address] [place] [address] Shivam Ponce MD [address] [facility] [address] [place] [address], [place] [id number] NOMS SWS NEURStart: 12-08-2024 End: 28-55-0664Rphmirbg Ztflgue7912/08/2024 11:20 AM EDT Clinical Support [facility] [address] [facility] [address] [place] [address] Shivam Ponce MD [address] [facility] [address] [place] [address], [place] [id number] ArrivedNOMS [facility] NEURComment [facility] above:ArrivedStart: 10-14-2024 End: 31-43-9497Dpvoaxmk SupportNOMS [facility] NEURComment on above:ArrivedStart: 09-14-2024 End: 56-88-5028Xnipymwk Dzmdlcg6009/14/2024 10:20 AM EST Clinical Support [facility] NEUR [address] [facility] [address] [place] [address] Shivam Ponce MD [address] [facility] [address] [place] [address], [place] [id number] ArrivedNOMS [facility] NEURComment on above:ArrivedStart: 44-71-4575Dyjmg A Streptococcus CultureGroup A Streptococcus CulturePremier Health [facility] Hospital Northtart: 08-18-2024 End: 01-23-6752Jkehocsg Euehjer7708/18/2024 11:40 AM EST Clinical Support [facility] NE[facility] [address] [facility] [address] [place] [address] Shivam Ponce MD [address] [facility] [address] [place], [place] [address]ield [facility], [place] [id number] ArrivedNOMS SWS NEURComment on above:ArrivedStart: 08-15-2024 End: 09-76-6483Mzfxyoek Akrzkfd6308/15/2024 11:20 AM EST Clinical Support [facility] [address] [place] [address] Shivam Ponce MD [address] [facility] [address] [place] [address], [place] [address] [facility] NEURStart: 07-07-2024 End: 01-45-3469Yhhrogfv SupportNOMS [facility] NEURComment on above:ArrivedStart: 06-01-2024 End: 10-35-2652Ksxivurd SupportNOMS SWS NEURComment on above:ArrivedStart: 05-14-2024 End: 31-20-6772WHZ Breast - bilateral screeningBilateral screening mammogram with tomosynthesis Imaging Routine Breast cancer screening by mammogram Expected: 05/14/2024, Expires: 07/03/2025[facility] Work Phone: comment on above:Expected: 05/14/2024, Expires: 07/03/2025Start: 75-00-2982Fqrecluyv vaccinationInfluenza Vaccine (#1)NOMS HealthcareStart: 05-03-2024 End: 20-89-3553Pbmcqpc encounter eqlswdosl58/27/2024 11:15 AM EDT Office Visit [facility] [address] [place] [address] Aamir Xavier, DO [address] [place] [address] [facility] OBStart: 01-20-2024 End: 61-23-1279Kvduobm encounter mnreakqaw55/15/2024 10:40 AM EDT Office Visit [facility] [address] [place] [address] Shivam Ponce MD [address] [facility] [address] [place] [address], [place] [address] [facility] NEURStart: 11-16-2023 End: 44-82-0425Vfzvfrz encounter qyezpmhkg74/11/2024 11:40 AM EDT Office Visit [facility] [address] [place] [address] Mel Hayes MD [address] [place] [address] [facility]Start: 10-14-2023 End: 15-54-7791Kxnlhhg encounter djeilzrdr84/07/2024 11:20 AM EST Office Visit [facility] [address] [place] [address] Shivam Ponce MD [address] [facility] [address] [address] [facility] NEURStart: 04-24-2826Tphaqfwbu vaccinationInfluenza Vaccine (#1)NOM HealthcareStart: 64-39-1132Ftlxjvghabkr Vaccine: 65+ Years (1 - PCV)Pneumococcal Vaccine: 65+ Years (1 - PCV)NOM HealthcareComprehensive metabolic 2000 panel - Serum or PlasmaAshtabula County Medical CenterCT Unspecified body region WO [facility] HospitalIGP,rfxAptima HPV all,16/18,45IGP,rfxAptima HPV all,16/18,45 Pathology and Cytology Routine Encounter for Papanicolaou smear of vagina Ordered: 05/09/2025 [facility] Work Phone: comment on above:Ordered: 05/09/2025Patient Education Low-fiber [place] Work Phone: xr Foot - left GE 3 [facility] Immunizations Immunization DateImmunizationNotesCare YbkpbbxqFijdgeil47-46-5013rbjorshot, high dose seasonal, preservative-freeBenjamin Ball DO Work Phone: [facility]10-09-2023COVID-19 (PFIZER) 12Y and olderBegoran Obrien DO Work Phone: [facility]09-20-2023influenza virus vaccine, unspecified formulationAshtabula [facility] Medical Center 66-08-7340Spifalj 20Benalicia Obrien Other [facility]09-20-2023influenza, high dose seasonal, preservative-freeKyle Obrien Other [facility] [employer] Other [id number]-94 mRNA Bivalent Booster (Pfizer) Kyle Obrien DO Work Phone: [facility]11-04-2022COVID-19 Pfizer (Pediatric)Kyle Obrien Other [facility]10-17-2022influenza, injectable, quadrivalent, preservative Cosmo Ponce MD Work Phone: [facility] CenterRuhhkdjtdp92-69-5717tdhnxtopo virus vaccine, unspecified formulationShivam Ponce MD Work Phone: [facility] CenterTwpeunrjoc71-86-2642oufrufzlh virus vaccine, split virus (incl. purified surface antigen)Kyle Obrien Other [facility] [employer] Other [id number] virus vaccine, unspecified formulationAshtabula County Medical Center09-12-2022Influenza, High-dose Seasonal, Quadrivalent, Preservative FreeShivam Ponce MD Work Phone: [facility] CenterBmohrrqvgy66-09-6285Eefycmuws, Seasonal, Quadrivalent, AdjuvantedWilliam Morenita DO Work Phone: noPike County Memorial HospitalDiyyroriwx32-12-1206FNCSL-97 Comirnaty (Pfizer) Tri-Sucrose 12+Kyle Obrien DO Work Phone: [facility]06-02-2022COVID-19 Vaccine Pfizer - Documentation Purposes OnlyKyle Obrien Other [facility]10-04-2021COVID-19 mRNA, Comirnaty (Pfizer)DO Kyle Obrien Work Phone: [facility]09-10-2021influenza virus vaccine, split virus (incl. purified surface antigen)Kyle Obrien Other [place] [facility] [employer] Other [id number] virus vaccine, unspecified formulationAshtabula County Medical Center03-18-2021Moderna SARS-CoV-2 VaccinationShivam Ponce MD Work Phone: [facility] CenterYtmgmfmdoh57-76-0280NUURR-11 mRNA, Comirnaty (Pfizer)DO Kyle Obrien Work Phone: [facility]02-08-2021Moderna SARS-CoV-2 VaccinationShivam Ponce MD Work Phone: [facility] CenterAxlgsluert55-70-5832LCXKC-20 mRNA, Comirnaty (Pfizer)DO Kyle Obrien Work Phone: [facility]01-28-2021COVID-19 Vaccine Moderna - Documentation Purposes OnlyAnthonygianfranco Obrien Other [facility]10-05-2020influenza, seasonal, injectableWilliam Morenita DO Work Phone: [facility] CenterSsyvcvyzew16-76-0994rbqzuktqk virus vaccine, split virus (incl. purified surface antigen)Kyle Obrien Other [place] [facility] [employer] Other [id number] virus vaccine, unspecified formulationAshtabula County Medical Center09-26-2019influenza virus vaccine, split virus (incl. purified surface antigen)Kyle Obrien Other [facility] Other [id number] virus vaccine, unspecified formulationAshtabula County Medical Center09-18-2018influenza virus vaccine, split virus (incl. purified surface antigen)Kyle Obrien Other [facility] Other [id number] virus vaccine, unspecified formulationAshtabula County Medical Center09-18-2018Seasonal trivalent influenza vaccine, adjuvanted, preservative freeWilliam Morenita DO Work Phone: [facility] CenterYukfrmhmhr47-36-6728bamwczjzv virus vaccine, split virus (incl. purified surface antigen)Kyle Obrien Other [facility] [employer] Other 09-004481-08-6413cxbhjhpzq virus vaccine, unspecified formulationAshtabula County Medical Center09-18-2017influenza, high dose seasonal, preservative-freeWilliam Morenita DO Work Phone: noPike County Memorial HospitalSftbhvdvuk15-84-0428bxtzpykpk virus vaccine, split virus (incl. purified surface antigen)Kyle Obrien Other [facility] [employer] Other [id number] virus vaccine, unspecified formulationAshtabula County Medical Center10-05-2016influenza, high dose seasonal, preservative-freeWilliam Morenita DO Work Phone: noPike County Memorial HospitalCycqxvibhn84-12-2341hiwacxuhx virus vaccine, split virus (incl. purified surface antigen)Kyle Obrien Other [place] [facility] [employer] Other [id number] virus vaccine, unspecified formulationAshtabula County Medical Center10-07-2015pneumococcal conjugate vaccine, 13 valentBegoran Obrien Other [facility]10-07-2015 pneumococcal Conjugate, unspecified formulation; Translations: [Need for prophylactic vaccination against Streptococcus pneumoniae (pneumococcus)] Kyle Obrien Other [facility] Other [id number] and diphtheria toxoids, adsorbed, preservative free, for adult use (5 Lf of tetanus toxoid and 2 Lf of diphtheria toxoid)Kyle Obrien Other [facility]10-07-2009 pneumococcal polysaccharide vaccine, 23 valentBegoran Obrien Other [facility] CenterNEGATED: Highlighted row has not occurred!12-27-7122tspxdxdga virus vaccine, split virus (incl. purified surface antigen)Kyle Obrien Other [facility] Other Payers DatePayer CategoryPayerPolicy [id number] Health Insurance [id number] 1996Medicare [id number] [id number] 2.16.840.2.999681.48779137-71-3423Howanmq Health [id number] 2.16.840.5.31152[id number] 2.16.840.1.790171.3.579.2.593 [id number] 2.16.840.1.636661.3.57[id number] 2.16.840.1.920470.3.57[id number] 2.16.840.1.333885.3.57[id number] 2.16.840.1.833526.3.57[id number] 2.16.840.1.384190.3.57[id number] 2.16.840.1.920899.3.57[id number] 2.16.840.1.647543.3.57[id number] 2.16.840.1.239098.3.57[id number] 2.16.840.1.491845.3.57[id number] 2.16.840.1.307144.3.57[id number] 2.16.840.1.662884.3.57[id number] 2.16.840.1.775896.3.57[id number] 2.16.840.1.110434.3.57[id number] 2.16.840.1.048457.3.57[id number] 2.16.840.1.439040.3.57[id number] 2.16.840.1.337589.3.579.2.1259Self-paySelf Pay [id number] Social History DateTypeDetailFacilityUnknown if ever smokedRapportive Other Start: 04-28-2023 End: 55-78-2888Rhk Assigned At [facility] HospitalRapportive Other Start: 11-28-2021 End: 96-53-5960Azzgdgf smoking status NHISEx-smoker (finding)[facility] Northtart: 29-38-8004Vli Assigned At BirthFeSelect Medical [facility] Clinic [facility] Hospital, Avontart: 72-90-6866Hxmwszh smoking status NHISNever smoked tobacco [facility] HealthcareStart: 99-33-0678Ajzlmkk use and exposureSmokeless tobacco non-userOGDEN REGIONAL MEDICAL CENTER HealthcareStart: 08-10-2023 End: 23-75-8799Gliwjbs intakeLifetime non-drinker (finding)[facility] HealthcareStart: 04-28-2023 End: 59-49-3237Gxrigrl of Social functionNONJ HealthcareHow often to you have a drink containing alcohol?NeverNONJ HealthcareHow many standard drinks containing alcohol do you have on a typical day?Patient does not drinkOGDEN REGIONAL MEDICAL CENTER HealthcareStart: 25-79-1330Vgizrpc Commentcaffeine intake: 1-2 cups per day; popHedrick Medical Center Start: 78-53-4810Brm Assigned At BirthNot on fileOGDEN REGIONAL MEDICAL CENTER HealthcareStart: 07-20-2024 End: 90-39-8383FqhJxbnkt (finding)[facility] Functional Status EejkDvuezjjnxcOdxihtQyclvcbc21-60-2961Hfxdy score [AUDIT-C]0 05/09/2025 11:36 AM EDT Yakelin Cowan MANOMS Ksqntiqjut78-55-1140Jklquoh Health Questionnaire 2 item (PHQ-2) [Reported][facility] Clinical Notes 11-14-2021 to 05-22-2025 Note Date & TfwbYrvcHrxdrtfr38-79-6520 History of Present illness Narrative* Shivam Ponce MD - 05/22/2025 2:00 PM EDT Images from the original note were not included. Subjective Gina Pierre is a 84 y.o. female who presents for Bursitis (Trochanteric bursitis of right hip) and Back Pain (L5/S1) History of Present Illness The patient is seen in the [facility] neurology clinic on 05/22/2025. Since last seen, [...] She experiences significant neck pain, worsened by ommp-gi-bkzm head rotation and extension. Brachial injections were administered bilaterally without complications. 3. Low back pain. She reports worsening low back pain, exacerbated by prolonged standing, bending, or twisting movements. Bursa injections were administered bilaterally without complications. 4. Multiple sclerosis. Her multiple sclerosis is currently stable and she is not on any disease- modifying therapy. Follow-up The patient will follow up in the next 8 weeks or sooner if there is any change in her symptoms. PROCEDURE Brachial and bursa injections were administered bilaterally without complications. documented in this encounterHedrick Medical CenterLdutrfledx71-18-2235 History of Present illness Narrative* Yesica Villagomez MA - 05/09/2025 11:30 AM EDT Images from the original note were not included. Aamir Xavier, DO Obstetrics and Gynecology Gina Pierre 1940 05[birth year]09/25 [id number] Yearly Wellness Exam Chief Complaint Patient presents with Gynecologic Exam Medicare yearly. LMP: SHANTA BSO 1984 HRT: Estrace cream Last pap 04-28-23 neg. Last mammogram 06-23-24 [facility]. Denies breast, urinary, or bowel concerns. Visit [...] costovertebral angle tenderness, no obvious scoliosis/kyphosis. 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 Aamir Xavier. Signature Yesica Villagomez MA Date 05/09/25 . Time 11:59 AM . The documentation recorded by the scribe accurately reflectsthe service(s) I personally performed and the decisions I made. Signature Jan Xavier D.O. Date 05/09/25 Time 5:00PM. documented in this encounterHedrick Medical CenterGertraomei04-85-4403 Evaluation note* Diagnosis Onset Date Resolution Status Admit Date PA (pernicious anemia) [facility] Work Phone: 1(468) 869-962408-21-2025 Evaluation note* Diagnosis Onset Date Resolution Status Admit Date PA (pernicious anemia) [facility] 1:33pmDepression, major, recurrent, mildacuteOctober 2024 10:58amGAD (generalized anxiety disorder)[facility] 20[facility] 10:58amGastroesophageal reflux disease with esophagitis without hemorrhageacute June 19, 2025 10:58amHypertriglyceridemiaacuteOctthe medical center 2024 10:58amIBS (irritable bowel syndrome)acute[facility] 2024 10:58amMedicare annual wellness visit, subsequentacuteOctthe medical center 2024 10:58amPrimary hypertension [facility] 10:58amScreening mammogram for breast canceracuteOct2024 10:58amStage 3a chronic kidney diseaseacuteOctthe medical center 2024 10:58am [facility] Work Phone: 1(167) 492-707308-04-2025 History of Present illness Narrative* Mel Hayes [...] developed sepsis from this and was at [facility]. She feels that the nasal ipratropium stopped [...] IMPRESSION: chronic rhinitis - nasal ipratropium to [facility] in [place]. Follow-up in 12 months or sooner should problems arise. We agreed she will continue Cetirizine 10 mg per day. documented in this encounterHedrick Medical CenterPqfcjprdpe48-56-0677 History of Present illness Narrative* Shivam Ponce [...] in all four extremities, including at least finish inspector, finger abductors, biceps, triceps, deltoid, toe flexors [...] 0.5% and 0.5 cc Dexamethasone 4mg. A Band- Aid dressing [...] these medications as prescribed. documented in this [facility]06-19-2025 Evaluation note* Diagnosis Onset Date Resolution Status Admit Date PA (pernicious anemia) acuteJune 2024 1:55pmPA (pernicious anemia)acuteAugust 2024 1:33pm [facility] Work Phone: 1(908) 864-586706-11-2025 Telephone encounter Note* Telephone Encounter - Soheila Kemp NP - 02/15/2025 2:24 PM EDT Patient leaves voicemail that she is not doing well at all. She was just in hospital for dizziness and is dizzy again. Kris you just saw her on 02/13 for injections. Do you want me to start her on glycopyrrolate? Cypro? [facility] Healthcare Work Phone: 1(247) 415-282106-11-2025 Miscellaneous Notes* Telephone Encounter - Soheila Kemp NP - 02/15/2025 2:24 PM EDT Patient leaves voicemail that she is not doing well at all. She was just in hospital for dizziness and is dizzy again. Kris you just saw her on 02/13 for injections. Do you want me to start her on glycopyrrolate? Cypro? documented in this [facility]06-09-2025 History of Present illness Narrative* Shivam Ponce [...] (gastroesophageal reflux disease) Hiatal hernia HLD (hyperlipidemia) ([facility] Hx of migraine headaches IBS (irritable bowel syndrome) Multiple sclerosis ([facility]) 1993 Past Surgical History: Procedure Laterality Date [...] reflexes: Erica's absent. Ankle clonus absent. Coordination Mavroc-ms-fxcw, rapid alternating movements and uagf-sg-cgip normal bilaterally without dysmetria. Gait Normal casual, [...] MD ASSESSMENT AND PLAN: CT head/brain wo con [...] the injections if needed. documented in this encounterHedrick Medical CenterUngpulrexk17-81-8835 Evaluation note* Diagnosis Onset Date Resolution Status Admit Date Depression, major, recurrent, mild acuteMay 2024 10:55amGAD (generalized anxiety disorder)acuteMay 2024 10:55amGastroesophageal reflux disease with esophagitis without hemorrhageacute January 19, 2025 10:55amIBS (irritable bowel syndrome)acuteMay 2024 10:55am Primary hypertensionacuteMa2024 10:55amStage 3a chronic kidney disease acuteMay 2024 10:55amPA (pernicious anemia)acuteJune 2024 1:55pm [facility] Work Phone: 1([phone]) 182-166504-03-2025 History of Present illness Narrative* Shivam Ponce [...] over any illness that 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 She now has to take time off of work when this happens as she can not kick it. She is also thinking of quitting at the [employer] as it is not fun anymore. 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 CURRENT MEDICATIONS: ALLERGIES/DISCONTINUE MEDICATIONS Current [...] (gastroesophageal reflux disease) Hiatal hernia HLD (hyperlipidemia) ([facility]) Hx of migraine headaches IBS (irritable bowel syndrome) Multiple sclerosis ([facility]) 1993 Past Surgical History: Procedure Laterality Date [...] the injections if needed. documented in this encounterHedrick Medical CenterYnnstijshm32-69-7709 Evaluation note* Diagnosis Onset Date Resolution Status Admit Date Acute bronchitis due to other specified organisms acuteMarch 2024 2:28pmMucopurulent chronic bronchitisacuteMarch 2024 2:28pmPA (pernicious anemia)acuteMarch 2024 2:28pmPA (pernicious anemia) acuteApril 2024 11:40amDepression, major, recurrent, mildacuteMay 2024 10:55amGAD (generalized anxiety disorder)acuteMay 2024 10:55am Gastroesophageal reflux disease with esophagitis without hemorrhageacuteMay 2024 10:55amIBS (irritable bowel syndrome)acuteMay 2024 10:55am Primary hypertensionacuteMay 2024 10:55amStage 3a chronic kidney disease acuteMay 2024 10:55am [facility] Work Phone: 1(295) 491-597702-07-2025 History of Present illness Narrative* Shivam Ponce [...] (gastroesophageal reflux disease) Hiatal hernia HLD (hyperlipidemia) ([facility]) Hx of migraine headaches IBS (irritable bowel syndrome) Multiple sclerosis ([facility]) 1993 Past Surgical History: Procedure Laterality Date [...] reflexes: Erica's absent. Ankle clonus absent. Coordination Edmcff-nw-skqn, rapid alternating movements and rbmi-ho-upva normal bilaterally without dysmetria. Gait Normal casual, [...] the injections if needed. documented in this encounterHedrick Medical CenterTomoxjuuiu95-51-8096 Evaluation note* Diagnosis Onset Date Resolution Status Admit Date Depression, major, recurrent, mild acuteJanuary 2024 9:29amGAD (generalized anxiety disorder)acuteJanuary 2024 9:29amGastroesophageal reflux disease with esophagitis without hemorrhageacuteJanuary 2024 9:29amNauseaacuteJanuary 2024 9:29am Primary hypertensionacuteJanuary 2024 9:29amStage 3a chronic kidney diseaseacuteJanuary 2024 9:29amGAD (generalized anxiety disorder)acute October 18, 2024 11:01amGastroesophageal reflux disease with esophagitis without hemorrhageacuteFebruary 2024 11:01amIBS (irritable bowel syndrome) acuteFebruary 2024 11:01amNauseaacuteFebruary 2024 11:01amPrimary hypertensionacuteFebruary 2024 11:01amStage 3a chronic kidney diseaseacute October 18, 2024 11:01amAcute bronchitis due to other specified organisms acuteMarch 2024 2:28pmMucopurulent chronic bronchitisacuteMarch 2024 2:28pmPA (pernicious anemia)[facility]pm [facility] Work Phone: 1([phone]) 247-467101-08-2025 History of Present illness Narrative* Shivam Ponce [...] (gastroesophageal reflux disease) Hiatal hernia HLD (hyperlipidemia) ([facility]) Hx of migraine headaches IBS (irritable bowel syndrome) Multiple sclerosis ([facility]) 1993 Past Surgical History: Procedure Laterality Date [...] reflexes: Erica's absent. Ankle clonus absent. Coordination Qyvesx-dr-oqxc, rapid alternating movements and kine-wh-tevr normal bilaterally without dysmetria. Gait Normal casual, [...] her injections if needed. documented in this encounterHedrick Medical CenterKtksphsctj92-22-2529 Evaluation note* Diagnosis Onset Date Resolution Status Admit Date Primary hypertension acuteDecember 2023 2:23pmStage 3a chronic kidney diseaseacuteDecember 2023 2:23pmAbdominal paindeletedDecember 2023 2:23pmAcute diverticulitisdeletedDecember 2023 2:23pmDehydrationdeletedDecember 2023 2:23pmCervical strain, acuteacuteJanuary 2024 1:59pmPrimary hypertensionacuteJanuary 2024 1:59pmStage 3a chronic kidney diseaseacute September 13, 2024 1:59pmAcute diverticulitisdeletedJanuary 2024 1:59pm Anemia, unspecifieddeletedJanuary 2024 1:59pmHypocalcemiadeletedJanuary 2024 1:59pmHypokalemiadeletedJanuary 2024 1:59pmDepression, major, recurrent, mildacuteJanuary 2024 9:29amGAD (generalized anxiety disorder) acuteJanuary 2024 9:29amGastroesophageal reflux disease with esophagitis without hemorrhageacuteJanuary 2024 9:29amNauseaacuteJanuary 2024 9:29amPrimary hypertensionacuteJanuary 2024 9:29amStage 3a chronic kidney diseaseacuteJanuary 2024 9:29amGAD (generalized anxiety disorder)acute October 18, 2024 11:01amGastroesophageal reflux disease with esophagitis without hemorrhageacuteFebruary 2024 11:01amIBS (irritable bowel syndrome) acuteFebruary 2024 11:01amNauseaacuteFebruary 2024 11:01amPrimary hypertensionacuteFebruary 2024 11:01amStage 3a chronic kidney diseaseacute October 18, 2024 11:01amAcute bronchitis due to other specified organisms acuteMarch 2024 2:28pmMucopurulent chronic bronchitisacuteMar 2024 2:28pmPA (pernicious [facility] Work Phone: 1(874) 338-804712-12-2024 History of Present illness Narrative* RT Estiven. R - 08/18/2024 11:40 AM EST Images [...] (gastroesophageal reflux disease) Hiatal hernia HLD (hyperlipidemia) ([facility]) Hx of migraine headaches IBS (irritable bowel syndrome) Multiple sclerosis ([facility]) 1993 Past Surgical History: Procedure Laterality Date [...] folder. ASSESSMENT AND PLAN: documented in this [facility]11-13-2024 Evaluation note* Diagnosis Onset Date Resolution Status Admit Date Concussion acuteJuly 20, 2024 10:58amDizzy spellsacuteNovember 2023 10:58am FatigueacuteNovember 2023 10:58amPrimary hypertensionacuteNovember 2023 10:58amStage 3a chronic kidney diseaseacuteNov2023 10:58am Abdominal painacuteDecember 2023 11:01amDiarrheaacuteDecember 2023 11:01amDiverticulosisacuteDecember 2023 11:01amGastroesophageal reflux disease with esophagitis without hemorrhageacuteDecember 2023 11:01am Abdominal painacuteDecember 2023 2:23pmAcute diverticulitisacuteDecember 2023 2:23pmDehydrationacuteDecember 2023 2:23pmPrimary hypertension acuteDecember 2023 2:23pmStage 3a chronic kidney diseaseacuteDecember 2023 2:23pm [facility] Work Phone: 1(335) 629-743111-13-2024 Evaluation note* Diagnosis Onset Date Resolution Status Admit Date Concussion acuteNovember 2023 10:58amDizzy spellsacuteNovember 2023 10:58am FatigueacuteNovember 2023 10:58amPrimary hypertensionacuteNovember 2023 10:58amStage 3a chronic kidney diseaseacuteNovember 2023 10:58am Abdominal painacuteDecember 2023 11:01amDiarrheaacuteDecember 2023 11:01amDiverticulosisacuteDecember 2023 11:01amGastroesophageal reflux disease with esophagitis without hemorrhageacuteDecember 2023 11:01am Abdominal painacuteDecember 2023 2:23pmAcute diverticulitisacuteDecember 2023 2:23pmDehydrationacuteDecember 2023 2:23pmPrimary hypertension acuteDecember 2023 2:23pmStage 3a chronic kidney diseaseacuteDecember 2023 2:23pmAcute diverticulitisacuteJanuary 2024 1:59pmAnemia, unspecifiedacuteJanuary 2024 1:59pmDiverticulosisacuteJanuary 2024 1:59pmPrimary hypertensionacuteJanuary 2024 1:59pmStage 3a chronic kidney diseaseacuteJanuary 2024 1:59pm [facility] Work Phone: 1(331) 341-470811-13-2024 Evaluation note* Diagnosis Onset Date Resolution Status Admit Date Primary hypertension acuteNovember 2023 10:58amStage 3a chronic kidney diseaseacuteNovember 2023 10:58amConcussiondeletedNovember 2023 10:58amDizzy spells deletedNovember 2023 10:58amFatiguedeletedNovember 2023 10:58am DiverticulosisacuteDecember 2023 11:01amGastroesophageal reflux disease with esophagitis without hemorrhageacuteDecember 2023 11:01amAbdominal paindeletedDecember 2023 11:01amDiarrheadeletedDecember 2023 11:01am Primary hypertensionacuteDecember 2023 2:23pmStage 3a chronic kidney diseaseacuteDecember 2023 2:23pmAbdominal paindeletedDecember 2023 2:23pmAcute diverticulitisdeletedDe2023 2:23pmDehydrationdeleted September 05, 2024 2:23pmCervical strain, acuteacuteJanuary 2024 1:59pm HypocalcemiaacuteJanuary 2024 1:59pmHypokalemiaacuteJanuary 2024 1:59pmPrimary hypertensionacuteJanuary 2024 1:59pmStage 3a chronic kidney diseaseacuteJanuary 2024 1:59pmAcute diverticulitisdeletedJanuary 2024 1:59pmAnemia, unspecifieddeletedJanuary 2024 1:59pmPrimary hypertension acuteJanuary 2024 9:29amStage 3a chronic kidney diseaseacuteJanuary 2024 9:29am [facility] Work Phone: 1(167) 559-601611-13-2024 Evaluation note* Diagnosis Onset Date Resolution Status Admit Date Primary hypertension acuteNovember 2023 10:58amStage 3a chronic kidney diseaseacuteNovember 2023 10:58amConcussiondeletedNovember 2023 10:58amDizzy spells deletedNovember 2023 10:58amFatiguedeletedNovember 2023 10:58am DiverticulosisacuteDecember 2023 11:01amGastroesophageal reflux disease with esophagitis without hemorrhageacuteDecember 2023 11:01amAbdominal paindeletedDecember 2023 11:01amDiarrheadeletedDecember 2023 11:01am Primary hypertensionacuteDecember 2023 2:23pmStage 3a chronic kidney diseaseacuteDecember 2023 2:23pmAbdominal paindeletedDecember 2023 2:23pmAcute diverticulitisdeletedDecemb2023 2:23pmDehydrationdeleted September 05, 2024 2:23pmCervical strain, acuteacuteJanuary 2024 1:59pm Primary hypertensionacuteJanuary 2024 1:59pmStage 3a chronic kidney disease acuteJanuary 2024 1:59pmAcute diverticulitisdeletedJanuary 2024 1:59pm Anemia, unspecifieddeletedSepuary 2024 1:59pmHypocalcemiadeletedJanuary 2024 1:59pmHypokalemiadeletedJanuary 2024 1:59pmDepression, major, recurrent, mildacuteSepuary 2024 9:29amGAD (generalized anxiety disorder) acuteJanuary 2024 9:29amGastroesophageal reflux disease with esophagitis without hemorrhageacuteSepuary 2024 9:29amNauseaacuteJanuary 2024 9:29amPrimary hypertensionacuteJanuary 2024 9:29amStage 3a chronic kidney diseaseacuteJanuary 2024 9:29amDepression, major, recurrent, mildacute October 18, 2024 11:01amGAD (generalized anxiety disorder)acuteFebruary 2024 11:01amGastroesophageal reflux disease with esophagitis without hemorrhage acuteFebruary 2024 11:01amNauseaacuteFebruary 2024 11:01amPrimary hypertensionacuteFebruary 2024 11:01amStage 3a chronic kidney diseaseacute October 18, 2024 11:01am [facility] Work Phone: 1(900) 590-682310-31-2024 History of Present illness Narrative* Cami Desir, [...] (gastroesophageal reflux disease) Hiatal hernia HLD (hyperlipidemia) ([facility]) Hx of migraine headaches IBS (irritable bowel syndrome) Multiple sclerosis ([facility]) 1993 Past Surgical History: Procedure Laterality Date [...] injections a this time. documented in this encounterHedrick Medical [id number] Telephone encounter Note* Telephone Encounter - Trixie Koenig - 06/02/2024 8:52 AM EDT Pt requested a refill of the decadron tablets be sent to [facility] #[id number] in [place] [facility] [id number] Miscellaneous Notes* Telephone Encounter - Trixie Koenig - 06/02/2024 8:52 AM EDT Pt requested a refill of the decadron tablets be sent to [facility] #[id number] in [place] documented in this encounterHedrick Medical [id number] History of Present illness Narrative* Roxane Wallis [...] concussion on May 13. She was in [facility]. She states it flared up her MS. [...] (gastroesophageal reflux disease) Hiatal hernia HLD (hyperlipidemia) ([facility]) Hx of migraine headaches IBS (irritable bowel syndrome) Multiple sclerosis ([facility]) 1993 Past Surgical History: Procedure Laterality Date [...] reflexes: Erica's absent. Ankle clonus absent. Coordination Xadhde-hf-csyr, rapid alternating movements and qerb-do-tnea normal bilaterally without dysmetria. Gait Normal casual, [...] the injections if needed. documented in this encounterHedrick Medical [id number] Evaluation note* Diagnosis Onset Date Resolution Status Admit Date Acute bronchitis due to other specified organisms acuteSeptember 2023 12:34pmAcute exacerbation of chronic obstructive airways diseaseacuteSeptember 2023 12:34pmConcussionacuteSeptember 2023 10:46amContusion of left shoulderacuteSeptember 2023 10:46amPrimary hypertensionacuteSeptember 2023 10:46amStage 3a chronic kidney disease acuteSeptember 2023 10:46amConcussionacuteSeptember 2023 11:38am Contusion of left shoulderacuteSeptember 2023 11:38amPrimary hypertension acuteSeptember 2023 11:38amStage 3a chronic kidney diseaseacuteSeptember 2023 11:38amFatigueacuteOctober 2023 11:05amMedicare annual wellness visit, subsequentacuteOctober 2023 11:05amPrimary hypertensionacuteOctober 2023 11:05amScreening mammogram for breast canceracuteOctober 2023 11:05amStage 3a chronic kidney diseaseacuteOctober 2023 11:05amConcussion acuteNovember 2023 10:58amContusion of left shoulderacuteNovember 2023 10:58amFatigueacuteNovember 2023 10:58amPrimary hypertensionacute November 2023 10:58amStage 3a chronic kidney diseaseacuteNovember 2023 10:58am [facility] Work Phone: 1(872) 548-379009-04-2024 Evaluation note* Diagnosis Onset Date Resolution Status Admit Date Acute bronchitis due to other specified organisms acuteSeptember 2023 12:34pmAcute exacerbation of chronic obstructive airways diseaseacuteSeptember 2023 12:34pmConcussionacuteSeptember 2023 10:46amContusion of left shoulderacuteSeptember 2023 10:46amPrimary hypertensionacuteSeptember 2023 10:46amStage 3a chronic kidney disease acuteSeptember 2023 10:46amConcussionacuteSeptember 2023 11:38am Contusion of left shoulderacuteSeptember 2023 11:38amPrimary hypertension acuteSeptember 2023 11:38amStage 3a chronic kidney diseaseacuteSeptember 2023 11:38amFatigueacuteOctober 2023 11:05amMedicare annual wellness visit, subsequentacuteOctober 2023 11:05amPrimary hypertensionacuteOctober 2023 11:05amScreening mammogram for breast canceracuteOctober 2023 11:05amStage 3a chronic kidney diseaseacuteOctober 2023 11:05amConcussion acuteNovember 2023 10:58amDizzy spellsacuteNovember 2023 10:58am FatigueacuteNovember 2023 10:58amPrimary [facility]acuteDe[facility] 10:58amStage 3a chronic kidney diseaseHom[facility] 20[facility] 10:58am [facility] Work Phone: 1(193) 315-274308-27-2024 History of Present illness Narrative* Yesica VillagomezMARIA ELENA - 05/03/2024 11:15 AM EDT Images from the original note were not included. Aamir Xavier, DO Obstetrics and Gynecology G[place] 1940 05/03/24 [id number] Yearly Wellness Exam Chief Complaint Patient presents with Gynecologic Exam Medicare off year. LMP: SHANTA BSO 1984 HRT: Premarin cream - satisfied, but would like to discuss how long to be on it Last pap 04-28-23 neg. Last mammogram 05-13-23 [facility]. Denies breast, urinary, or bowel concerns. Visit [...] (gastroesophageal reflux disease) Hiatal hernia HLD (hyperlipidemia) ([facility]) Hx of migraine headaches IBS (irritable bowel syndrome) Multiple sclerosis ([facility]) 1993 ROS Const: Denies appetite change, fever, [...] costovertebral angle tenderness, no obvious scoliosis/kyphosis. 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 Could maintainhormone using once weekly. 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 Entered by Yesica Villagomez MA acting as scribe for Dr. Aamir Xavier. Signature Yesica Villagomez MA Date 05/03/24 . Time 11:46 AM . The documentation recorded by the scribe accurately reflectsthe service(s) I personally performed and the decisions I made. Signature Jan Xavier D.O. Date 05/03/24 Time 5:00PM. documented in this encounterHedrick Medical [id number] Evaluation note* Diagnosis Onset Date Resolution Status Gastroesophageal reflux disease with eso phagitis without hemorrhage acuteLumbar spondylosisacutePA (pernicious anemia)acutePrimary hypertensionacute Stage 3a chronic kidney diseaseacuteVenous insufficiency (chronic) (peripheral) acuteAcute sinusitisnonctive [facility] Work Phone: 1(274) 475-194004-22-2024 Evaluation note* Diagnosis Onset Date Resolution Status Gastroesophageal reflux disease with eso phagitis without hemorrhage acuteLumbar spondylosisacutePA (pernicious anemia)acutePrimary hypertensionacute Stage 3a chronic kidney diseaseacuteVenous insufficiency (chronic) (peripheral) acuteAcute sinusitisnonctive [facility] Work Phone: 1(601) [phone] History of Present illness Narrative* Shivam Ponce [...] (gastroesophageal reflux disease) Hiatal hernia HLD (hyperlipidemia) ([facility]) Hx of migraine headaches IBS (irritable bowel syndrome) Multiple sclerosis ([facility]) 1993 Past Surgical History: Procedure Laterality Date [...] reflexes: Erica's absent. Ankle clonus absent. Coordination Mtyqlk-sw-edkd, rapid alternating movements and movl-xd-rbjg normal bilaterally without dysmetria. Gait Normal casual, [...] nerve dysfunction including polyneuropathy. documented in this encounterHedrick Medical [id number] Evaluation note* Encounter Date Diagnosis Assessment Notes Treatment Notes Treatment Clinical Notes Sep, Acute non-recurrent maxillary si nusitis (ICD-10 - J01.00) Instructed to use Robitussin or Mucinex for cough, saline or Flonase NS for congestion, Tylenol forpain and fever. Sep,Multiple sclerosis (ICD-10 - G35)weakens her immune system placing her at risk for more seriou, prolonged illness [employer] Other 01-09-2024 Evaluation note* Encounter Date Diagnosis Assessment Notes Treatment Notes Treatment Clinical Notes Sep, Pernicious anemia (ICD-10 - D51. 0) [employer] Other 12-22-2023 Evaluation note* Encounter Date Diagnosis Assessment Notes Treatment Notes Treatment Clinical Notes Aug, Flu-like symptoms (ICD-10 - R68. 89) Aug,cute non-recurrent maxillary sinusitis (ICD-10 - J01.00) [employer] Other 12-19-2023 Evaluation note* Encounter Date Diagnosis Assessment Notes Treatment Notes Treatment Clinical Notes Aug, Abdominal pain (ICD-10 - R10.9) Aug,Nausea & vomiting (ICD-10 - R11.2) Aug,ERD (gastroesophageal reflux disease) (ICD-10 - K21.9)Pt is doing well on the pantoprazole. Pt RTO YEARLY Aug,Early satiety (ICD-10 - R68.81) Aug,Loss of appetite (ICD-10 - R63.0) [employer] Other 12-07-2023 Evaluation note* Encounter Date Diagnosis Assessment Notes Treatment Notes Treatment Clinical Notes Aug, Pernicious anemia (ICD-10 - D51. 0) [employer] Other 11-02-2023 Evaluation note* Encounter Date Diagnosis Assessment Notes Treatment Notes Treatment Clinical Notes Jul, Pernicious anemia (ICD-10 - D51. 0) [employer] Other 10-02-2023 Evaluation note* Encounter Date Diagnosis Assessment Notes Treatment Notes Treatment Clinical Notes Jun, Pernicious anemia (ICD-10 - D51. 0) [employer] Other 09-22-2023 Evaluation note* Encounter Date Diagnosis Assessment Notes Treatment Notes Treatment Clinical Notes May, Anemia, unspecified type (ICD-10 - D64.9) May,Fatigue, unspecified type (ICD-10 - R53.83) [employer] Other 09-20-2023 Evaluation note* Encounter Date Diagnosis Assessment Notes Treatment Notes Treatment Clinical Notes May, Medicare annual wellness visit, subsequent (ICD-10 - Z00.00) Personalized health [...] reviewed and amended by provider signed below. May,rimary hypertension (ICD-10 - I10)This patient is instructed to consume a healthy, low-fat, low-salt diet. They are also encouraged to continue exercise to achieve/maintain a normal BMI. May,Stage 3a chronic kidney disease (ICD-10 - N18.31)The patient is instructed on adequate control of hypertension and diabetes, if appropriate. They are also educated on the associated risks of NSAIDs and PPI use with kidney disease. They were instructed on adequate fluid balance and to avoid dehydration. May,Mucopurulent chronic bronchitis (ICD-10 - J41.1)No ER visits for AE Hx of pneumonia earlier this year w/ clearing of CXR. UTD w/ vaccines: flu, prevnar given Encouraged to get latest COVID May,astroesophageal reflux disease with esophagitis without hemorrhage (ICD-10 - K21.00)Diet instructions: Smaller portions, avoid eating and laying flat, avoid eating or drinking prior to bedtime. Weight loss. May,Lumbar spondylosis (ICD-10 - M47.816)The patient is instructed to avoid bending, twisting or lifting. They are to use intermittent heat and ice as needed. They may schedule a massage or gentle manipulation. They may safely use Tylenol as needed. May,ernicious anemia (ICD-10 - D51.0)Continue monthly B12 injections Recheck CBC and B12 levels May,Venous insufficiency (chronic) (peripheral) (ICD-10 - I87.2)Avoid salt and elevate lower extremities, support stockings, inspect legs and feet daily for blisters and ulcerations. May,Hypertriglyceridemia (ICD-10 - E78.1)Instructed on diet and exercise with continued statin therapy.Discussed the beneficial effects of lowering cholesterol in reducing the risk for cerebrovascular and cardiovascular disease. May,radycardia (ICD-10 - R00.1)r/o hypothyroid and place holter for suspected symptomatic bradycardia. May,Major depressive disorder, recurrent, mild (ICD-10 - F33.0) May,Nicotine dependence, cigarettes, in remission (ICD-10 - F17.211)Quit 2002Continue abstinence May,nemia, unspecified type (ICD-10 - D64.9)Recheck CBC, B12, FA, Fe No obvious s/s bleeding. Healthy diet and MVI May,Fatigue, unspecified type (ICD-10 - R53.83)Check labs: CBC, B12, TSH [employer] Other 08-31-2023 Evaluation note* Encounter Date Diagnosis Assessment Notes Treatment Notes Treatment Clinical Notes Apr, Pernicious anemia (ICD-10 - D51. 0) [employer] Other 07-31-2023 Evaluation note* Encounter Date Diagnosis Assessment Notes Treatment Notes Treatment Clinical Notes Mar, Pernicious anemia (ICD-10 - D51. 0) [employer] Other 07-10-2023 Evaluation note* Encounter Date Diagnosis Assessment Notes Treatment Notes Treatment Clinical Notes Mar, Pernicious anemia (ICD-10 - D51. 0) [employer] Other 07-07-2023 Evaluation note* Encounter Date Diagnosis Assessment Notes Treatment Notes Treatment Clinical Notes Mar, PA (pernicious anemia) (ICD-10 - D51.0) [employer] Other 07-05-2023 Evaluation note* Encounter Date Diagnosis Assessment Notes Treatment Notes Treatment Clinical Notes Mar, Acute pneumonia (ICD-10 - J18.9) Mar,nemia, unspecified type (ICD-10 - D64.9) Mar,Stage 3a chronic kidney disease (ICD-10 - N18.31) [employer] Other 06-06-2023 Evaluation note* Encounter Date Diagnosis Assessment Notes Treatment Notes Treatment Clinical Notes Feb, Stage 3a chronic kidney disease (ICD-10 - N18.31) The patient is instructed on adequate control of hypertension and diabetes, if appropriate. They are also educated on the associated risks of NSAIDs and PPI use with kidney disease. They were instructed on adequate fluid balance and to avoid dehydration. Feb,rimary hypertension (ICD-10 - I10)This patient is instructed to consume a healthy, low-fat, low-salt diet. They are also encouraged to continue exercise to achieve/maintain a normal BMI. Feb,Intermittent palpitations (ICD-10 - R00.2)Avoid stimulants, hydrate and healthy diet. No change in medical treatment. Off all beta blockers. PVC? SVT? Check holter Feb,Irritable bowel syndrome (IBS) (ICD-10 - K58.9)Healthy diet, exercise and increase dietary fiber Feb,ulmonary infiltrate (ICD-10 - R91.8)Continues to improve. Recheck in month. 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 Recheck FA/B12, CBC in month [employer] Other 05-30-2023 Evaluation note* Encounter Date Diagnosis Assessment Notes Treatment Notes Treatment Clinical Notes January, Acute pneumonia (ICD-10 - J18.9) January,nemia, unspecified type (ICD-10 - D64.9) January,Stage 3a chronic kidney disease (ICD-10 - N18.31) [employer] Other 05-05-2023 Evaluation note* Encounter Date Diagnosis Assessment Notes Treatment Notes Treatment Clinical Notes January, Folic acid deficiency (ICD-10 - E53.8) [employer] Other 04-27-2023 Evaluation note* Encounter Date Diagnosis Assessment Notes Treatment Notes Treatment Clinical Notes Dec, Pneumonia of right u pper lobe due to infectious organism (ICD-10 - J18.9) Much improved, continue Mucinex as needed. Increase activity as tolerated. Repeat CXR scheluded to confirm resolution of infiltrate. May need CT chest Dec,Essential hypertension (ICD-10 - I10)This patient is instructed to consume a healthy, low-fat, low-salt diet. They are also encouraged to continue exercise to achieve/maintain a normal BMI. Dec,Stage 3a chronic kidney disease (ICD-10 - N18.31)The patient is instructed on adequate control of hypertension and diabetes, if appropriate. They are also educated on the associated risks of NSAIDs and PPI use with kidney disease. They were instructed on adequate fluid balance and to avoid dehydration. Dec,astroesophageal reflux disease with esophagitis without hemorrhage (ICD-10 - K21.00)Diet instructions: Smaller portions, avoid eating and laying flat, avoid eating or drinking prior to bedtime. Weight loss. Continue PPI Dec,nasarca (ICD-10 - R60.1)Improved w/ improved nutrition and short course of diuretic. REsume healthy diet and activity Monitor for weight gain and call office if increase > 3 lbs Dec,nemia, unspecified type (ICD-10 - D64.9)No s/s bleeding. No change in appetite or bowel habits. No N/V/D/C, melena or hematochezia Scheduled to recheck CBC, Fe, B12, FA EGD and Colonoscopy completed in past 2 years Malabsorption? Dec,Lumbar spondylosis (ICD-10 - M47.816)The patient is instructed to avoid bending, twisting or lifting. They are to use intermittent heat and ice as needed. They may schedule a massage or gentle manipulation. They may safely use Tylenol as needed. Dec,Fibromyalgia (ICD-10 - M79.7)Daily stretching, exercises. Tylenol as needed. Proper sleep habits/routine. Avoid strenuous activity Dec,OtherDiet and exercise with continued statin therapy. [employer] Other 04-12-2023 Evaluation note* Encounter Date Diagnosis Assessment Notes Treatment Notes Treatment Clinical Notes Dec, Pneumonia of right u pper lobe due to infectious organism (ICD-10 - J18.9) Continue antibiotics - will review hosp records, she likely does not need to finish full 10 day course of therapy Mucinex, hydrate, cough/deep breathing exercises Repeat CXR and consider CT chest in month 12 Dec, 2022Essential hypertension (ICD-10 - I10)This patient is instructed to consume a healthy, low-fat, low-salt diet. They are also encouraged to continue exercise to achieve/maintain a normal BMI. Elevated due to fluid excess Avoid salt Monitor closely Dec,rerenal azotemia (ICD-10 - R79.89)Fluid overloaded Need to follow healthy diet. Avoid salt Daily weights, anticipate gradual reduction in weight Lasix qd x 7 days Dec,Stage 3a chronic kidney disease (ICD-10 - N18.31)Hydrate, avoid NSAIDs Recheck in 4 weeks The patient is instructed on adequate control of hypertension and diabetes, if appropriate. They are also educated on the associated risks of NSAIDs and PPI use with kidney disease. They were instructed on adequate fluid balance and to avoid dehydration. Dec,nemia, unspecified type (ICD-10 - D64.9)No s/s bleeding - colonoscopy 2020 - EGD 2021 Will need Fe, B12, FA completed Will repeat H/H in 4wks Dec,astroesophageal reflux disease with esophagitis without hemorrhage (ICD-10 - K21.00)Diet instructions: Smaller portions, avoid eating and laying flat, avoid eating or drinking prior to bedtime. Weight loss. Dec,nasarca (ICD-10 - R60.1) [employer] Other 04-03-2023 Evaluation note* Encounter Date Diagnosis Assessment Notes Treatment Notes Treatment Clinical Notes Dec, Seasonal allergic rhinitis (ICD- 10 - J30.2) [employer] Other 03-13-2023 Evaluation note* Encounter Date Diagnosis Assessment Notes Treatment Notes Treatment Clinical Notes Nov, Essential hypertension (ICD-10 - I10) This patient is instructed to consume a healthy, low-fat, low-salt diet. They are also encouraged to continue exercise to achieve/maintain a normal BMI. Nov,astroesophageal reflux disease with esophagitis without hemorrhage (ICD-10 - K21.00)Diet instructions: Smaller portions, avoid eating and laying flat, avoid eating or drinking prior to bedtime. Weight loss. Nov,Stage 3a chronic kidney disease (ICD-10 - N18.31)The patient is instructed on adequate control of hypertension and diabetes, if appropriate. They are also educated on the associated risks of NSAIDs and PPI use with kidney disease. They were instructed on adequate fluid balance and to avoid dehydration. Nov,Hypertriglyceridemia (ICD-10 - E78.1)Diet and exercise with continued Rx therapy. Nov,Lumbar spondylosis (ICD-10 - M47.816)The patient is instructed to avoid bending, twisting or lifting. They are to use intermittent heat and ice as needed. They may schedule a massage or gentle manipulation. They may safely use Tylenol as needed. Nov,Irritable bowel syndrome (IBS) (ICD-10 - K58.9)Diet instructions, exercise Nov,Fibromyalgia (ICD-10 - M79.7)Daily stretching exercises, exercise, avoid strenuous lifting. [employer] Other 12-28-2022 Evaluation note* Encounter Date Diagnosis Assessment Notes Treatment Notes Treatment Clinical Notes Aug, Diarrhea (ICD-10 - R19.7) [employer] Other 03-31-2022 Evaluation note* Encounter Date Diagnosis Assessment Notes Treatment Notes Treatment Clinical Notes Nov, Diarrhea (ICD-10 - R19.7) [employer] Other 03-10-2022 Evaluation note* Encounter Date Diagnosis Assessment Notes Treatment Notes Treatment Clinical Notes Nov, Abdominal pain (ICD-10 - R10.9) Continue Dicyclomine Nov,Nausea & vomiting (ICD-10 - R11.2) Nov,GERD (gastroesophageal reflux disease) (ICD-10 - K21.9) Continue Pantoprazole 40mg bid, 30 minutes prior to the first and last meal of the day Nov,Early satiety (ICD-10 - R68.81) Nov,Loss of appetite (ICD-10 - R63.0) [employer] Other Evaluation noteNo InformationNort Emme [facility] Other Evaluation noteNo assessment information available [facility] Work Phone: evaluation noteNort Emme [facility] Other Evaluation note* Diagnosis Brachial plexus neuropathy- Primary Brachial plexus lesions Multiple sclerosis (CMS/HCC) Multiple sclerosis documented in this encounter [facility] Diagnosis Onset Date Resolution Status Gastroesophageal reflux disease with eso phagitis without hemorrhage acuteLumbar spondylosisacutePA (pernicious anemia)acutePrimary hypertensionacute Stage 3a chronic kidney diseaseacuteVenous insufficiency (chronic) (peripheral) acuteAcute sinusitisnoneactive [facility] Work Phone: Evaluation note* Diagnosis Onset Date Resolution Status Foot pain, left acuteGastroesophageal reflux disease with esophagitis without hemorrhageacute Acute diverticulitisnoneactiveNauseanoneactive [facility] Work Phone: evaluation note* Diagnosis Onset Date Resolution Status Foot pain, left acuteGastroesophageal reflux disease with esophagitis without hemorrhageacute Acute diverticulitisnoneactiveNauseanoneactiveAcute bronchitis due to other specified organismsacuteAcute exacerbation of chronic obstructive airways diseaseacute [facility] Work Phone: Evaluation note* Diagnosis Onset Date Resolution Status Foot pain, left acuteGastroesophageal reflux disease with esophagitis without hemorrhageacute Acute diverticulitisnoneactiveNauseanoneactiveAcute bronchitis due to other specified organismsacuteAcute exacerbation of chronic obstructive airways diseaseacuteConcussionacuteContusion of left shoulderacutePrimary hypertension acuteStage 3a chronic kidney diseaseacuteConcussionacuteContusion of left shoulderacutePrimary hypertensionacuteStage 3a chronic kidney diseaseacute [facility] Work Phone: Evaluation note* Diagnosis Onset Date Resolution Status Acute bronchitis due to other specified organisms acuteAcute exacerbation of chronic obstructive airways diseaseacuteConcussion acuteContusion of left shoulderacutePrimary hypertensionacuteStage 3a chronic kidney diseaseacuteConcussionacuteContusion of left shoulderacutePrimary hypertensionacuteStage 3a chronic kidney diseaseacuteMedicare annual wellness visit, subsequentacutePrimary hypertensionacuteStage 3a chronic kidney disease acute [facility] Work Phone: Evaluation note* Diagnosis Onset Date Resolution Status Acute bronchitis due to other specified organisms acuteAcute exacerbation of chronic obstructive airways diseaseacuteConcussion acuteContusion of left shoulderacutePrimary hypertensionacuteStage 3a chronic kidney diseaseacuteConcussionacuteContusion of left shoulderacutePrimary hypertensionacuteStage 3a chronic kidney diseaseacuteFatigueacuteMedicare annual wellness visit, subsequentacutePrimary hypertensionacuteScreening mammogram for breast canceracuteStage 3a chronic kidney diseaseacute [facility] Work Phone: Evaluation note* Diagnosis Trochanteric [...] Type Description Date Surgical History appenedectomy Surgical Historyleft ovarySurgical Historytotal hysterectomy [employer] Other History general Narrative - Reported* Type Description Date Medical History Diarrhea Medical HistoryIBS (irritable bowel syndrome)Medical HistoryGastro-esophageal refluxMedical HistoryAbdominal painMedical HistoryDiverticulosisMedical History Loss of appetiteMedical HistoryEarly satietyMedical HistoryNausea and vomiting Medical HistorySeasonal allergic reactionMedical HistoryHemorrhoidMedical HistoryLumbar spondylosisMedical HistoryMultiple sclerosisMedical History FibromyalgiaMedical HistoryHypertriglyceridemiaMedical HistoryDepression, major, recurrent, mildMedical HistoryEssential hypertensionMedical HistoryCystitis Medical HistoryBenign hypertension with chronic kidney disease, stage IIIMedical HistoryAbdominal pain, RLQ (right lower quadrant)Medical HistoryHypokalemia Medical HistoryMalaiseSurgical HistoryappenedectomySurgical Historyleft ovary Surgical Historytotal hysterectomySurgical [id number] [id number],2022Hospitalization History[facility] Other History general Narrative - Reported* Type Description Date Medical History Diarrhea Medical HistoryIBS (irritable bowel syndrome)Medical HistoryGastro-esophageal refluxMedical HistoryAbdominal painMedical HistoryDiverticulosisMedical History Loss of appetiteMedical HistoryEarly satietyMedical HistoryNausea and vomiting Medical HistorySeasonal allergic reactionMedical HistoryHemorrhoidMedical HistoryLumbar spondylosisMedical HistoryMultiple sclerosisMedical History FibromyalgiaMedical HistoryHypertriglyceridemiaMedical HistoryDepression, major, recurrent, mildMedical HistoryEssential hypertensionMedical HistoryCystitis Medical HistoryBenign hypertension with chronic kidney disease, stage IIIMedical HistoryAbdominal pain, RLQ (right lower quadrant)Medical HistoryHypokalemia Medical HistoryMalaiseMedical [id number] deficiencySurgical Historyappenedectomy Surgical Historyleft ovarySurgical Historytotal hysterectomySurgical History [id number] [id number],2022Hospitalization History[facility] Other History general Narrative - ReportedNoPredictry Emme [facility] Other History general Narrative - ReportedSolos Endoscopy [facility] Other Reason for referral (narrative)No reason for referral information availableBrown [facility] Hospital Work Phone: Chief Complaint and Reason for Visit Chief Complaint Screening Chief Complaint Sore Throat Sinuses - [phone] B-12 SHOT Chief Complaint Sinuses - [phone] B-12 SHOT 6 month follow upReason for VisitGastroesophageal reflux disease with esophagitis without hemorrhage Lumbar spondylosis PA (pernicious anemia) Primary hypertension Stage 3a chronic kidney disease Venous insufficiency (chronic) (peripheral) Acute sinusitis Chief Complaint B-12 SHOT 6 month follow up [id number] for VisitGastroesophageal reflux disease with esophagitis without hemorrhage Lumbar spondylosis PA (pernicious anemia) Primary hypertension Stage 3a chronic kidney disease Venous insufficiency (chronic) (peripheral) Acute sinusitis Chief Complaint 6 month follow up B12 [id number] for VisitGastroesophageal reflux disease with esophagitis without hemorrhage Lumbar spondylosis PA (pernicious anemia) Primary hypertension Stage 3a chronic kidney disease Venous insufficiency (chronic) (peripheral) Acute sinusitis Chief Complaint B12 b12 stomach pain, nausea Chief Complaint b12 stomach pain, nausea B12 ShotReason for VisitFoot pain, left Gastroesophageal reflux disease with esophagitis without hemorrhage Acute diverticulitis Nausea Chief Complaint stomach pain, nausea B12 Shot [phone] cough, congestion for 3 daysReason for VisitFoot pain, left Gastroesophageal reflux disease with esophagitis without hemorrhage Acute diverticulitis Nausea Acute bronchitis due to other specified organisms Acute exacerbation of chronic obstructive airways disease Chief Complaint stomach pain, nausea B12 Shot [phone] cough, congestion for 3 days Fall-L Shoulder, Head/Dr. NoteReason for VisitFoot pain, left Gastroesophageal reflux disease with esophagitis without hemorrhage Acute diverticulitis Nausea Acute bronchitis due to other specified organisms Acute exacerbation of chronic obstructive airways disease Chief Complaint stomach pain, nausea B12 Shot [phone] cough, congestion for 3 days Fall-L Shoulder, Head/Dr. Note follow upReason for VisitFoot pain, left Gastroesophageal reflux disease with esophagitis without hemorrhage Acute diverticulitis Nausea Acute bronchitis due to other specified organisms Acute exacerbation of chronic obstructive airways disease Concussion Contusion of left shoulder Primary hypertension Stage 3a chronic kidney disease Concussion Contusion of left shoulder Primary hypertension Stage 3a chronic kidney disease Chief Complaint B12 Shot [phone] cough, congestion for 3 days Fall-L Shoulder, Head/Dr. Note follow up CC Adult Risk Stratification Medicare WellnessReason for VisitAcute bronchitis due to other specified organisms Acute exacerbation of chronic obstructive airways disease Concussion Contusion of left shoulder Primary hypertension Stage 3a chronic kidney disease Concussion Contusion of left shoulder Primary hypertension Stage 3a chronic kidney disease Medicare annual wellness visit, subsequent Primary hypertension Stage 3a chronic kidney disease Chief Complaint B12 Shot [phone] cough, congestion for 3 days Fall-L Shoulder, Head/Dr. Note follow up CC Adult Risk Stratification Medicare Wellness B12 ShotReason for VisitAcute bronchitis due to other specified organisms Acute exacerbation of chronic obstructive airways disease Concussion Contusion of left shoulder Primary hypertension Stage 3a chronic kidney disease Concussion Contusion of left shoulder Primary hypertension Stage 3a chronic kidney disease Fatigue Medicare annual wellness visit, subsequent Primary hypertension Screening mammogram for breast cancer Stage 3a chronic kidney disease Chief Complaint B12 Shot [phone] cough, congestion for 3 days Fall-L Shoulder, Head/Dr. Note follow up CC Adult Risk Stratification Medicare Wellness B12 Shot Z12.31Reason for VisitAcute bronchitis due to other specified organisms Acute exacerbation of chronic obstructive airways disease Concussion Contusion of left shoulder Primary hypertension Stage 3a chronic kidney disease Concussion Contusion of left shoulder Primary hypertension Stage 3a chronic kidney disease Fatigue Medicare annual wellness visit, subsequent Primary hypertension Screening mammogram for breast cancer Stage 3a chronic kidney disease Chief Complaint Admit Date [phone] cough, congestion for 3 day s May [...] 17 10:46am Stage 3a chronic kidney disease Arianae r 2023 10:46am Concussion May 27, 2024 11:38am Contusion of left shoulder May 11:38am Primary hypertension May 27 11:38am Stage 3a [facility] 11:38am Fatigue June 14, 2024 [...] 20, 2024 10:58am Chief Complaint Admit Date [phone] cough, congestion for 3 day s May [...] 17 10:46am Stage 3a chronic kidney disease [facility] 2023 10:46am Concussion May 27, 2024 11:38am Contusion of left shoulder May 11:38am Primary hypertension May 27 11:38am Stage 3a chronic kidney disease Sept[facility] r 2023 11:38am Fatigue June 14, 2024 11 :05am Medicare annual wellness visit, karen nt June 14, 2024 11:05am Primary hypertension [...] Janua 2024 9:29am NABIL (generalized anxiety disorder) Sepua 2024 9:29am Gastroesophageal reflux dise ase with esophagitis without hemorrhage October 04, 2024 9:29am Nausea October 04, 2024 9 :29am Primary hypertension October 04, 2024 9:29am Stage 3a chronic kidney disease October 04, 2024 9:29am NABIL (generalized anxiety disorder) u [email or web address] 11:01am Gastroesophageal reflux dise ase with esophagitis [...] Visit Admit Date Depression, major, recurrent, mild Sepua 2024 9:29am NABIL (generalized anxiety disorder) 2024 9:29am Gastroesophageal reflux dise ase with [...] chronic kidney disease June 19, 2025 10:58am Chief Complaint Admit Date B12 Shot April 27, 2025 1: 33pm B12 Shot June 02, 2025 1:37pm Wellness June 19, 2025 1 0:58am Z12.31 June 29, 2025 1 2:48pm Chief Complaint Admit Date B12 Shot April 27, 2025 1: 33pm B12 Shot June 02, 2025 1:37pm Wellness June 19, 2025 1 0:58am Z12.31 June 29, 2025 1 2:48pm B12 injection July 04, 2025 1 :16pm Family History Relationship Condition Age at Onset Recorded Date/T le[place] Not Specified Heart disease Unknown brotherHeart diseaseUnknownfatherMalignant neoplasm of pancreasUnknown Relationship Condition Age at Onset Recorded Date/T leesa Not Specified Heart disease Unknown brotherHeart diseaseUnknownfatherMalignant neoplasm of pancreasUnknownbrother Congestive heart failureUnknownDeceasedUnknownfatherDeceasedUnknownMalignant neoplasmUnknownNot SpecifiedDeceasedUnknown Relationship Condition Age at Onset Recorded Date/T le[place] mother Heart disease Unknown brotherHeart diseaseUnknownfatherMalignant neoplasm of pancreasUnknownbrother Congestive heart failureUnknownDeceasedUnknownfatherDeceasedUnknownMalignant neoplasmUnknownmotherDeceasedUnknown Advance Directives Advance Directive Response Recorded Date/ Time Advance Directives No January 21 8 3:52pm Advance Directive Response Recorded Date/ Time Advance Directives No January 21 8 2:52pm Reason for Referral Reason Consult for seasonal allergies and post nasal drip Diagnosis 1 Seasonal allergic rh initis (J30.2) Referral Organization [facility] Gastroenterolo gy Referring Provider First Name Doni Referring Provider Last Name Miguel Referring Provider Specialty Gastroenter ology Referred Organization Unknown Facility Referred Provider Mel Hayes Referred Provider Specialty Allergy/Immu nology Referral Priority Routine Summary Purpose Additional Source Comments REASON FOR VISIT (unrecogniz ed section and content) ReasonCommentsGynecologic ExamMedicare off year.LMP: SHANTA BSO 1984 HRT: Premarin cream - satisfied, but would like to discuss how long to be on itLast pap 04-28-23 neg.Last mammogram 05-13-23 [facility] [place]. Denies breast, urinary, or bowel con cerns.ReasonCommentsFollow-upNo surgeries; Six nights hospital stay.Reason CommentsGynecologic ExamMedicare yearly.LMP: SHANTA BSO 1984 HRT: Estrace cream Last pap 04-28-23 neg.Last mammogram 06-23-24 [facility]. Denies breast, urinary, or bowel concerns.ReasonCommentsBursitisTrochanteric bursitis of right hipBack Pain L5/S1 Care Teams (unrecognized sec tion and content) Team Status: Active Member Role Status Dates Kyle Obrien DO Primary Care Provider Active Team Status: Inactive Member Role Status Saqib Obrien DO Primary Care Provider Active Start: March 27, 2025 End: March 27enalicia Obrien , DOAttending ProviderActiveStart: March 27, 2025 End: March 27, 2025 Team Status: Inactive Member Role Status Saqib Obrien DO Primary Care Provider Active Start: April 27, 2025 End: April 27, 2025Aliza Daniel MDAttending ProviderActiveStart: April 27, 2025 End: April 27, 2025 Team Status: Inactive Member Role Status Saqib Obrien DO Primary Care Provider Active Start: June 02, 2025 End: June 02enalicia Obrien , DOAttending ProviderActiveStart: June 02, 2025 End: June 02, 2025 Team Status: Active Member Role Status Saqib Obrien DO Primary Care Provider Active Start: February 07, 2025 Damaso Grey , DOAttending ProviderActiveStart: February 07, 2025 Team Status: Active Member Role Status Saqib Obrien DO Primary Care Provider Active Start: February 08, 2025 Byron Perez , MDAttending ProviderActiveStart: February 08, 2025 Team Status: Inactive Member Role Status Saqib Obrien DO Primary Care Provider Active Start: February 23, 2025 End: February 23, 2025Aliza Daniel MDAttending ProviderActiveStart: February 23, 2025 End: February 23, 2025 Team Status: Inactive Member Role Status Saqib Obrien DO Primary Care Provide r, Attending Provider Active Start: November 15, 2024 End: November 15, 2024 Team Status: Inactive Member Role Status Saqib Obrien DO Primary Care Provider Active Start: December 16, 2024 End: December 16, 2024Aliza Daniel MDAttending ProviderActiveStart: December 16, 2024 End: December 16, 2024 Team Status: Inactive Member Role Status Saqib Obrien DO Primary Care Provide r, Attending Provider Active Start: January 19, 2025 End: January 19, 2025 Team Status: Active Member Role Status Saqib Obrien DO Primary Care Provide r, Attending Provider Active Start: September 23, 2024 Team Status: Active Member Role Status Saqib Obrien DO Primary Care Provide r, Attending Provider Active Start: September 30, 2024 Team Status: Active Member Role Status Dates Kyle Obrien DO Primary Care Provide r, Attending Provider Active Start: October 02, 2024 Team Status: Inactive Member Role Status Dates Kyle Obrien DO Primary Care Provide r, Attending Provider Active Start: October 04, 2024 End: October 04, 2024 Team Status: Inactive Member Role Status Dates Kyle Obrien DO Primary Care Provide r, Attending Provider Active Start: October 18, 2024 End: October 18, 2024 Team Status: Inactive Member Role Status Dates Kyle Obrien DO Primary Care Provider Active Aamir Xavier DOAttending Provider, Referring ProviderActive Team Status: Inactive Member Role Status Dates Kyle Obrien DO Primary Care Provider Active Aamir Xavier DOAttdanelle ProviderActiveTeam MemberRelationshipSpecialty Start DateEnd Date Kyle Obrien MD [address] [place] [address] PCP - GeneralInternal Medicine02/16/23Team MemberRelationshipSpecialtyStart Date End Date Kyle Obrien MD [address] [place] [phone] [facility]/16/23 Team Status: Inactive Member Role Status Dates Tonya Harrison APRN [employer]OB [employer]-C Attending Provider Act bhargavi Start: August 25, 2023 End: August 25, 2023 Team Status: Inactive Member Role Status Dates Kyle Obrien DO Attending Provider Active Sta rt: September 17, 2023 End: September 17, 2023 Team Status: Inactive Member Role Status Dates Kyle Obrien DO Primary Care Provide r, Attending Provider Active Start: October 21, 2023 End: October 21, 2023 Team Status: Inactive Member Role Status Dates Kyle Obrien DO Primary Care Provide r, Attending Provider Active Start: November 25, 2023 End: November 25, 2023 Team Status: Inactive Member Role Status Dates Kyle Obrien DO Primary Care Provider Active Start: December 28, 2023 End: December 28, 2023Aliza Daniel MDAttdanelle ProviderActiveStart: December 28, 2023 End: December 28, 2023 Team Status: Inactive Member Role Status Dates Kyle Obrien , DO Primary Care Provide r, Attending Provider Active Start: February 03, 2024 End: February 03, 2024 Team Status: Inactive Member Role Status Dates Kyle Obrien , DO Primary Care Provide r, Attending Provider Active Start: March 09, 2024 End: March 09, 2024 Team Status: Inactive Member Role Status Dates Kyle Obrien , DO Primary Care Provide r, Attending Provider Active Start: April 12, 2024 End: April 12, 2024 Team Status: Inactive Member Role Status Dates Kyle Obrien , DO Primary Care Provide r, Attending Provider Active Start: May 11, 2024 End: May 11, 2024 Team Status: Inactive Member Role Status Dates Kyle Micah , DO Primary Care Provide r, Attending Provider Active Start: May 17, 2024 End: May 17, 2024 Team Status: Active Member Role Status Dates Kyle Micah , DO Primary Care Provide r, Attending Provider Active Start: May 25, 2024 Team Status: Inactive Member Role Status Dates Kyle Micah , DO Primary Care Provide r, Attending Provider Active Start: May 27, 2024 End: May 27, 2024 Team Status: Active Member Role Status Dates Kyle Obrien , DO Primary Care Provide r, Attending Provider Active Start: June 10, 2024 Team Status: Inactive Member Role Status Dates Kyle Micah , DO Primary Care Provide r, Attending Provider Active Start: June 14, 2024 End: June 14, 2024 Team Status: Inactive Member Role Status Dates Kyle Obrien , DO Primary Care Provide r, Attending Provider Active Start: June 21, 2024 End: June 21, 2024 Team Status: Inactive Member Role Status Dates Kyle Obrien , DO Primary Care Provider Active Start: June 23, 2024 End: June 23, 2024Aamir Xavier DOAttending ProviderActiveStart: June 23, 2024 End: June 23, 2024Team MemberRelationshipSpecialtyStart DateEnd Date Kyle Obrien MD [address] [place] [phone] PCP - GeneralInternal Medicine02/16/23Team MemberRelationshipSpecialtyStart Date End Date Kyle Obrien MD [address] [facility] [place] [address] PCP - GeneralInternal Medicine02/16/23 Team Status: Inactive Member Role Status Dates Kyle Obrien DO Primary Care Provide r, Attending Provider Active Start: July 20, 2024 End: July 20, 2024 Team Status: Inactive Member Role Status Dates Kyle Obrien DO Primary Care Provide r, Attending Provider Active Start: July 22, 2024 End: July 22, 2024Team MemberRelationshipSpecialtyStart DateEnd Date Kyle Obrien MD [address] [facility] [place] [phone] PCP - GeneralInternal Medicine02/16/23Team MemberRelationshipSpecialtyStart Date End Date Kyle Obrien MD [address] [place] [phone] PCP - GeneralInternal Medicine02/16/23Team MemberRelationshipSpecialtyStart Date End Date Kyle Obrien MD [address] [facility] [place] [phone] PCP - GeneralInternal Medicine02/16/23Team MemberRelationshipSpecialtyStart Date End Date Kyle Obrien MD [address] [facility] [place] [phone] PCP - GeneralInternal Medicine02/16/23Team MemberRelationshipSpecialtyStart Date End Date Kyle Obrien MD [address] [place] [phone] PCP - GeneralInternal Medicine02/16/23Team MemberRelationshipSpecialtyStart Date End Date Kyle Obrien MD [address] [place] [phone] PCP - [facility]02/16/23Team MemberRelationshipSpecialtyStart Date End Date Kyle Obrien MD [address] [place] [phone] PCP - [facility]02/16/23 Team Status: Inactive Member Role Status Dates Kyle Obrien DO Primary Care Provider Active Start: August 16, 2024 End: August 16ricardo Rivera MDAttdanelle ProviderActiveStart: August 16, 2024 End: August 16, 2024 Team Status: Inactive Member Role Status Dates Kyle Obrien DO Primary Care Provide r, Attending Provider Active Start: September 05, 2024 End: September 05, 2024 Team Status: Inactive Member Role Status Dates Anita Garcia MD Attending Provider Active Sta rt: September 05, 2024 End: September 05, 2024 Team Status: Active Member Role Status Dates Kyle Obrien DO Primary Care Provider Active Start: September 06, 2024 Ernesto Ott ProviderActiveStart: September 06, 2024 Team Status: Active Member Role Status Dates Elizabeth Cowan CMA Attending Provider Active Start: September 09, 2024 Team Status: Inactive Member Role Status Dates Kyle Obrien DO Primary Care Provide r, Attending Provider Active Start: September 13, 2024 End: September 13, 2024Team MemberRelationshipSpecialtyStart DateEnd Date Kyle Obrien MD [address] [place] [phone] PCP - [facility]02/16/23 Team Status: Active Member Role Status Dates Kyle Obrien DO Primary Care Provide r, Attending Provider Active Start: September 06, 2024 Team MemberRelationshipSpecialtyStart DateEnd Date Kyle Obrien MD [address] [facility] [place] [id number] PCP - GeneralInternal Medicine02/16/23Te MemberRelationshipSpecialtyStart Date End Date Kyle Obrien MD [address] [facility] [phone] PCP - GeneralInternal [facility]02/16/23Te MemberRelationshipSpecialtyStart Date End Date Kyle Obrien MD [address] [facility] [place] [phone] [facility]/16/23Te MemberRelationshipSpecialtyStart Date End Date Kyle Obrien DO PCP - GeneralInternal Medicine02/16/23Te MemberRelationshipSpecialtyStart Date End Date Kyle Obrien DO PCP - GeneralInternal Medicine02/16/23Te MemberRelationshipSpecialtyStart Date End Date Kyle Obrien DO PCP - GeneralInternal Medicine02/16/23Te MemberRelationshipSpecialtyStart Date End Date Kyle Obrien DO PCP - GeneralInternal Medicine02/16/23Te MemberRelationshipSpecialtyStart Date End Date Kyle Obrien DO [facility]/16/23 Team Status: Inactive Member Role Status Saqib Obrien DO Primary Care Provider Active Start: January 19, 2025 End: January 19andrés Obrien DOAttending ProviderActiveStart: January 19, 2025 End: January 19, 2025Team MemberRelationshipSpecialtyStart DateEnd Date Kyle Obrien PCP - [facility]02/16/23Team MemberRelationshipSpecialtyStart Date End Date Kyle Obrien DO PCP - [facility]02/16/23Team MemberRelationshipSpecialtyStart Date End Date Kyle Obrien DO PCP - [facility]02/16/23Team MemberRelationshipSpecialtyStart Date End Date Kyle Obrien DO PCP - [facility]02/16/23 Team Status: Inactive Member Role Status Dates Kyle Obrien DO Primary Care Provider Active Start: June 19, 2025 End: June 19andrés Obrien DOAttending ProviderActiveStart: June 19, 2025 End: June 19, 2025 Team Status: Active Member Role/Relationship Status Dates Kyle Obrien DO Primary Care Provider Active Team Status: Inactive Member Role/Relationship Status Dates Kyle Obrien DO Primary Care Provider Active Start: April 27, 2025 End: April 27, 2025Ernesto Joshi ProviderActiveStart: April 27, 2025 End: April 27, 2025 Team Status: Inactive Member Role/Relationship Status Dates Kyle Obrien DO Primary Care Provider Active Start: June 02, 2025 End: June 02andrés Obrien DOAttending ProviderActiveStart: June 02, 2025 End: June 02, 2025 Team Status: Inactive Member Role/Relationship Status Dates Kyle Obrien DO Primary Care Provider Active Start: June 19, 2025 End: June 19enjamin Drew Obrien ProviderActiveStart: June 19, 2025 End: June 19, 2025 Team Status: Active Member Role/Relationship Status Dates Kyle Obrien DO Primary Care Provider Active Start: June 21, 2025 Drew Franz ProviderActiveStart: June 21, 2025 Team Status: Inactive Member Role/Relationship Status Dates Kyle Obrien DO Primary Care Provider Active Start: June 29, 2025 End: June 29, 2025Aamir DerasDrew lutz ProviderActiveStart: June 29, 2025 End: June 29, 2025 Team Status: Inactive Member Role/Relationship Status Dates Kyle Obrien DO Primary Care Provider Active Start: July 04, 2025 End: July 04madieDrew Olmos ProviderActiveStart: July 04, 2025 End: July 04, 2025 Goals (unrecognized section and content) Goals may be documented in a n alternate section INFORMATION SOURCE (unrecogn ized section and content) DATE CREATED AUTHOR 02/13/2023 [facility] DATE CREATED AUTHOR AUTHOR'S ORGANIZ ATION 05/23/2025 [facility] DATE CREATED AUTHOR AUTHOR'S ORGANIZ ATION 07/01/2025 [facility] FOR RECORDS PERTAINING TO PATIENTS WHO ARE [...] BE BASED ON THE PRIMARY CLINICAL RECORDS. [facility]. provides no warranty or guarantee of the accuracy or completeness of information in this document.
[2025-07-31 13:34] LABS: Hematocrit 35.3 % (36.0-48.0); Hemoglobin 10.8 g/dL (12.0-16.0); Immature Granulocytes Abs Auto 0.02 10^3/uL (0.00-0.03); Immature Granulocytes Pct Auto 0.5 % (0.0-0.5); Lymphocytes Absolute Auto 1.0 10^3/uL (1.2-3.8); Mean Corpuscular HGB Conc 30.6 g/dL (29.9-35.2); Mean Corpuscular Hemoglobin 27.7 pg (26.7-34.0); Mean Corpuscular Volume 90.5 fL (81.0-99.0); Platelet Count 196 10^3/uL (150-450); Red Blood Count 3.90 10^6/uL (4.20-5.40); White Blood Count 4.2 10^3/uL (4.0-11.0)
[2025-07-31 14:38] LABS: Ferritin 22.0 ng/mL (8.0-252.0)
[2025-08-02 12:10] LABS: Albumin 3.5 g/dL (2.9-4.4); Alpha-1-Globulin 0.3 g/dL (0.0-0.4); Alpha-2-Globulin 0.7 g/dL (0.4-1.0); Free Kappa Lt Chains,S 17.6 mg/L (3.3-19.4); Free Lambda Lt Chains,S 16.7 mg/L (5.7-26.3); Gamma Globulin 0.4 g/dL (0.4-1.8); Immunoglobulin A, Qn, Serum 129 mg/dL (64-422); Kappa/Lambda Ratio,S 1.05 (0.26-1.65)
== END 2025-07-31 12:50 | disposition home or self-care (01) ==
LOC: LAB 12:53
PROVIDERS: PCP Internal Medicine; Visit Provider Internal Medicine
DX: D64.9 Anemia, unspecified (principal); N18.31 Chronic kidney disease, stage 3a; R53.83 Other fatigue
CPT/HCPCS: 36415; 82728; 82784; 83521; 84155; 84165; 85025; 86334; 86364